=== PATIENT | male | born 1980 | race Caucasian/White ===

== ENCOUNTER 2022-10-31 13:20 | Outpatient (OUT) | payer OTHER, SELFPAY ==
--- NOTE | 2022-10-31 | CONS_ITS ---
CONSULTATION DATE: ??10/31/2022 HISTORY:? Patient returns today complaining of 7/10 pain in his abdominal area, just right of the umbilicus.? He describes this as a sharp, burning pain and it seems to increase with coughing, sneezing and performing lifting maneuvers.? He feels most comfortable in the semi-recumbent position.? He reports light touch to his abdomen is quite painful as well and describes a burning sensation.? At times, describes the pain with touching of his skin with fabric.? EXAM:? His examination is notable for patient having no clinical radiculopathy or myelopathy involving either of his lower extremities.? He did have dysesthesia and hyperesthesia overlying the distribution of the right T10 intercostal nerve and myofascial dysfunction involving the right rectus muscle, approximately 2-3 cm just cephalad and to the right of the umbilicus. IMPRESSION:? 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 RECOMMENDATIONS:? I have recommended proceeding with diagnostic right T10 intercostal nerve injection under fluoroscopic guidance.? We will obtain a urine toxicology screen on today?s visit.? As part of providing excellent, safe, comprehensive care, the following was completed at our patient's visit: 1. A medication reconciliation and review to ensure accurate knowledge of current/active medications, including asking our patients to inform us about any [id number] medications or herbal remedies/nutritional supplements/alternative remedies. 2. A review to specifically ensure our patients have had annual screening for: elevated body mass index (BMI, see intake chart for exact total), tobacco use, screening for depression, and screening for unhealthy alcohol use.? When screening is concerning, patients are provided with education and the specific recommendation to discuss the concerning health issue and treatment options with their primary care provider. ROSHAN
== END 2022-10-31 13:21 | disposition home or self-care (01) ==
LOC: PM 13:21
PROVIDERS: Visit Provider Anesthesiology Pain Medicine
DX: G89.29 Other chronic pain (principal); M79.2 Neuralgia and neuritis, unspecified
CPT/HCPCS: G0463

== ENCOUNTER 2022-12-14 12:41 | Outpatient (REF) | payer OTHER, SELFPAY ==
[2022-12-14 13:50] LABS: Amphetamine Screen Urine NEGATIVE (NEGATIVE); Barbiturates Screen Urine NEGATIVE (NEGATIVE); Benzodiazepines Screen Urine NEGATIVE (NEGATIVE); Buprenorphine Screen Urine NEGATIVE (NEGATIVE); Cannabinoid Screen Urine NEGATIVE (NEGATIVE); Cocaine Screen Urine NEGATIVE (NEGATIVE); Methadone Screen Urine NEGATIVE (NEGATIVE); Methamphetamines Screen Urine NEGATIVE (NEGATIVE); Opiate Screen Urine NEGATIVE (NEGATIVE); Oxycodone Screen Urine NEGATIVE (NEGATIVE); Phencyclidine Screen Urine NEGATIVE (NEGATIVE); Tricyclic Antidepressant Urine NEGATIVE (NEGATIVE)
== END 2022-12-14 12:42 | disposition home or self-care (01) ==
LOC: LAB 12:41
PROVIDERS: Visit Provider Nurse Practitioner Primary Care
DX: G62.9 Polyneuropathy, unspecified (principal); Z79.899 Other long term (current) drug therapy
CPT/HCPCS: 80307

== ENCOUNTER 2023-01-04 08:37 | Outpatient (OUT) | payer OTHER, SELFPAY ==
[2023-01-04 09:45] LABS: Basophils Absolute Auto 0.1 10^3/uL (0.0-0.1); Eosinophils Absolute Auto 0.2 10^3/uL (0.0-0.7); Eosinophils Percent Auto 2.7 % (0.9-7.0); Hematocrit 46.9 % (42.0-54.0); Hemoglobin 13.7 g/dL (14.0-18.0); Immature Granulocytes Abs Auto 0.03 10^3/uL (0.00-0.03); Immature Granulocytes Pct Auto 0.4 % (0.0-0.5); Lymphocytes Absolute Auto 1.9 10^3/uL (1.2-3.8); Mean Corpuscular HGB Conc 29.2 g/dL (29.9-35.2); Mean Corpuscular Volume 75.2 fL (80.0-94.0); Mean Platelet Volume 10.7 fL (9.5-13.5); Monocytes Absolute Auto 0.7 10^3/uL (0.3-0.8); Monocytes Percent Auto 10.3 % (1.7-12.0); Neutrophils Absolute Auto 3.9 10^3/uL (1.4-6.5); Neutrophils Percent Auto 57.6 % (43.0-75.0); Platelet Count 395 10^3/uL (150-450); Red Blood Count 6.24 10^6/uL (4.70-6.10); White Blood Count 6.8 10^3/uL (4.0-11.0)
[2023-01-04 10:16] LABS: Estimated Average Glucose 103 mg/dL; Glycohemoglobin A1C 5.2 % (4.5-6.2)
[2023-01-04 11:28] LABS: Alanine Aminotransferase 23 U/L (16-63); Albumin Globulin Ratio 1.3; Albumin Level 4.4 g/dL (3.4-5.0); Alkaline Phosphatase 161 U/L (46-116); Anion Gap 9.9; Aspartate Amino Transferase 18 U/L (15-37); BUN Creatinine Ratio 14.6; Bilirubin Total 0.5 mg/dL (0.2-1.0); Carbon Dioxide 30.1 mmol/L (21.0-32.0); Chloride 103 mmol/L (98-107); Cholesterol 187 mg/dL (<=200); Estimated GFR (African America >60 (>=60); Estimated GFR (Non-African Ame >60 (>=60); Globulin 3.5 g/dL; Glucose 80 mg/dL (74-106); HDL Cholesterol 47 mg/dL (40-60); LDL Cholesterol Calculated 123.2 mg/dL; Sodium 139 mmol/L (136-145); Thyroid Stimulating Hormone 1.341 uIU/mL (0.358-3.740); Total Protein 7.9 g/dL (6.4-8.2); Triglycerides 84 mg/dL (<=150); VLDL CHOLESTEROL 16.8 mg/dL
[2023-01-05 06:08] LABS: HIV Ab/p24 Ag Screen Non Reactive (Non Reactive)
[2023-01-05 07:08] LABS: HCV Ab Non Reactive (Non Reactive)
[2023-01-05 13:26] LABS: Gamma Glutamyl Transpeptidase 24 U/L (15-85)
== END 2023-01-04 08:38 | disposition home or self-care (01) ==
LOC: LAB 08:38
PROVIDERS: PCP Nurse Practitioner Primary Care; Visit Provider Nurse Practitioner Primary Care
DX: Z00.00 Encounter for general adult medical examination without abnormal findings (principal); Z11.59 Encounter for screening for other viral diseases; D50.9 Iron deficiency anemia, unspecified; Z13.21 Encounter for screening for nutritional disorder; Z13.6 Encounter for screening for cardiovascular disorders; Z13.29 Encounter for screening for other suspected endocrine disorder; Z11.4 Encounter for screening for human immunodeficiency virus [HIV]; R74.8 Abnormal levels of other serum enzymes
CPT/HCPCS: 36415; 80053; 80061; 82607; 82728; 82746; 82977; 83036; 83540; 83550; 84443; 85025; 86803; 87389

== ENCOUNTER 2023-02-12 07:29 | Outpatient (RCR) | payer OTHER, SELFPAY ==
[2023-01-29 08:41] VITALS: BP 149/98; PULSE 102; RESP 16; TEMP 37.1; O2SAT 96
--- NOTE | 2023-01-29 08:57 | PC.NURSE ---
0749: Pt to [facility] amb. for iron infusion. Seated in recliner. VSS. Denies c/o. #22 gauge IV initiated to right hand on first attempt without difficulty. Flushes easily without redness or edema. Pt. tolerated without c/o.
--- NOTE | 2023-01-29 09:01 | PC.NURSE ---
0817: IV Feraheme initiated at this time. Denies needs. Snack and fluid offered, pt. declines. 0835: IV Feraheme completed without s&s of adverse reaction. IV d/c'd, pressure to site. Pt tolerated without c/o. 0836: D/c'd to home.
[2023-01-30] MEDS: CYANOCOBALAMIN 1,000 MCG/ML VIAL 1000 MCG IM (09:18)
[2023-01-30 09:20] VITALS: BP 150/97; PULSE 89; RESP 16; TEMP 36.4; O2SAT 96
--- NOTE | 2023-01-30 09:24 | PC.NURSE ---
0910 Arrival amb to chair 1 alert oriented no complaints offered. VS obtained. Vit B12 injected rt deltoid. 919 Released ambulatory.
[2023-02-05 08:10] VITALS: BP 144/105; PULSE 96; RESP 18; TEMP 36.4; O2SAT 93
--- NOTE | 2023-02-05 08:14 | PC.NURSE ---
0740: Pt. to [facility] amb. Seated in recliner. Relays falling down the stairs at home prior to arrival. Relays landing on his back and c/o discomfort to lumbar region. Encouraged pt. to go to ER if pain worsens. Pt. expresses understanding. IV initiated in right hand on first attempt without difficulty. Pt. tolerated with minimal c/o. Warm blanket folded and placed behind back for comfort. Drinking water. Declines food. 0804: IV Feraheme initiated at this time. Pt. denies needs.
--- NOTE | 2023-02-05 08:29 | PC.NURSE ---
0828: SIGIFREDO Davis completed. Pt. without s&s of adverse reaction. IV d/c'd, pressure to site. Pt. d/c'd amb. to home.
[2023-02-06] MEDS: CYANOCOBALAMIN 1,000 MCG/ML VIAL 1000 MCG IM (08:02)
[2023-02-06 08:07] VITALS: BP 137/100; PULSE 98; RESP 18; TEMP 36.4; O2SAT 96
--- NOTE | 2023-02-06 08:09 | PC.NURSE ---
0755: Pt. to [facility] amb. per. self. Seated in recliner. Vital obtained. Pt. c/o low back pain from fall yesterday. Denies c/o n/v or dyspnea. Medicated with Vit. B12 IM to right deltoid. No bleeding to site. Bandaid placed prophylactically. Pt. tolerated with no c/o. 0805: Pt. d/c'd amb. to home.
[2023-02-12 07:55] VITALS: BP 159/98; PULSE 83; RESP 18; TEMP 36.5; O2SAT 93
[2023-02-12] MEDS: CYANOCOBALAMIN 1,000 MCG/ML VIAL 1000 MCG IM (08:27)
--- NOTE | 2023-02-12 08:47 | PC.NURSE ---
0755: Pt. to [facility] amb. Seated in recliner. VSS. Denies c/o dyspnea, n/v. Relays pain to lower back from recent fall. 0827: Medicated with Vitamin B12 IM to right deltoid. No bleeding to site. Pt. tolerated without c/o. 0828: Pt. d/c'd amb. to home per self.
== END 2023-02-13 23:59 | disposition home or self-care (01) ==
LOC: INF 07:29
PROVIDERS: PCP Nurse Practitioner Primary Care; Visit Provider Internal Medicine Hematology & Oncology
DX: D64.9 Anemia, unspecified (principal); D50.9 Iron deficiency anemia, unspecified; K90.9 Intestinal malabsorption, unspecified; D51.9 Vitamin B12 deficiency anemia, unspecified; Z98.84 Bariatric surgery status; Z90.49 Acquired absence of other specified parts of digestive tract
CPT/HCPCS: 96365; 96372; G0463; J1439; J3420

== ENCOUNTER 2023-03-05 07:32 | Outpatient (RCR) | payer OTHER, SELFPAY ==
[2023-02-19] MEDS: CYANOCOBALAMIN 1,000 MCG/ML VIAL 1000 MCG IM (07:57)
[2023-02-19 08:12] VITALS: BP 148/94; PULSE 105; RESP 16; TEMP 37.3; O2SAT 94
--- NOTE | 2023-02-19 08:14 | PC.NURSE ---
0753: Pt. to [facility] amb. Seated in recliner. VSS. Denies c/o. Medicated with Vitamin B12 IM to right deltoid. No bleeding to site. Pt tolerated without c/o. 0758: Pt d/c'd amb. to home.
[2023-03-05] MEDS: CYANOCOBALAMIN 1,000 MCG/ML VIAL 1000 MCG IM (08:22)
[2023-03-05 08:30] VITALS: BP 131/88; PULSE 77; RESP 18; TEMP 36.5; O2SAT 98
--- NOTE | 2023-03-05 08:31 | PC.NURSE ---
0810: Pt. to [facility] amb. for bi-weekly injection. Seated in recliner. VSS. Denies c/o or changes in health history. 0822: Pt. medicated with Vitamin B-12 IM to right deltoid. No bleeding to site. Bandaid applied prophylactically. Pt. kenia. without c/o. 0830: Pt. d/c'd amb. to home.
== END 2023-03-15 23:59 | disposition home or self-care (01) ==
LOC: INF 07:32
PROVIDERS: PCP Nurse Practitioner Primary Care; Visit Provider Internal Medicine Hematology & Oncology
DX: D50.9 Iron deficiency anemia, unspecified (principal); K90.9 Intestinal malabsorption, unspecified; D51.9 Vitamin B12 deficiency anemia, unspecified; D64.9 Anemia, unspecified
CPT/HCPCS: 96372; J3420

== ENCOUNTER 2023-04-03 07:31 | Outpatient (RCR) | payer OTHER, SELFPAY ==
[2023-03-19] MEDS: CYANOCOBALAMIN 1,000 MCG/ML VIAL 1000 MCG IM (08:15)
[2023-03-19 08:43] VITALS: BP 125/89; PULSE 76; RESP 16; TEMP 36.4; O2SAT 93
--- NOTE | 2023-03-19 08:45 | PC.NURSE ---
0812: Pt. to [facility] amb. Seated in recliner. VSS. Medicated with Vitamin B-12 IM to right deltoid. No bleeding to site. Pt. tolerated without c/o. 0819: Pt. d/c'd amb. to home.
[2023-04-03] MEDS: CYANOCOBALAMIN 1,000 MCG/ML VIAL 1000 MCG IM (10:23)
[2023-04-03 10:46] LABS: Basophils Absolute Auto 0.1 10^3/uL (0.0-0.1); Basophils Percent Auto 1.1 % (0.2-2.0); Eosinophils Absolute Auto 0.2 10^3/uL (0.0-0.7); Hematocrit 56.4 % (42.0-54.0); Hemoglobin 17.5 g/dL (14.0-18.0); Immature Granulocytes Abs Auto 0.01 10^3/uL (0.00-0.03); Immature Granulocytes Pct Auto 0.1 % (0.0-0.5); Lymphocytes Absolute Auto 1.5 10^3/uL (1.2-3.8); Mean Corpuscular Hemoglobin 25.7 pg (25.9-34.0); Mean Corpuscular Volume 82.9 fL (80.0-94.0); Mean Platelet Volume 10.5 fL (9.5-13.5); Monocytes Absolute Auto 0.8 10^3/uL (0.3-0.8); Monocytes Percent Auto 10.8 % (1.7-12.0); Neutrophils Absolute Auto 4.4 10^3/uL (1.4-6.5); Platelet Count 314 10^3/uL (150-450); Red Cell Distribution Width 20.8 % (11.0-15.0)
[2023-04-03 11:08] LABS: Alanine Aminotransferase 18 U/L (16-63); Albumin Globulin Ratio 1.1; Albumin Level 4.4 g/dL (3.4-5.0); Alkaline Phosphatase 213 U/L (46-116); Aspartate Amino Transferase 19 U/L (15-37); BUN Creatinine Ratio 12.7; Bilirubin Total 0.4 mg/dL (0.2-1.0); Carbon Dioxide 28.1 mmol/L (21.0-32.0); Chloride 102 mmol/L (98-107); Estimated GFR (African America >60 (>=60); Estimated GFR (Non-African Ame >60 (>=60); Globulin 4.1 g/dL; Glucose 79 mg/dL (74-106); Potassium 4.1 mmol/L (3.5-5.1); Sodium 138 mmol/L (136-145); Thyroid Stimulating Hormone 1.517 uIU/mL (0.358-3.740); Total Protein 8.5 g/dL (6.4-8.2)
[2023-04-03 12:18] LABS: Percent Iron Saturation 15.9 %
[2023-04-03 13:19] LABS: Vitamin B12 >6000.0 pg/mL (193.0-986.0)
[2023-04-04 04:07] LABS: Testosterone 628 ng/dL (264-916)
== END 2023-04-03 13:00 | disposition home or self-care (01) ==
LOC: INF 07:31
PROVIDERS: PCP Nurse Practitioner Primary Care; Visit Provider Internal Medicine Hematology & Oncology
DX: D50.9 Iron deficiency anemia, unspecified (principal); K90.9 Intestinal malabsorption, unspecified; D51.9 Vitamin B12 deficiency anemia, unspecified; D64.9 Anemia, unspecified; Z98.84 Bariatric surgery status; Z90.49 Acquired absence of other specified parts of digestive tract
CPT/HCPCS: 36415; 80053; 82306; 82607; 82728; 82746; 83540; 83550; 84403; 84443; 85025; 96372; G0463; J3420

== ENCOUNTER 2023-04-11 15:39 | Outpatient (RCR) | payer OTHER, SELFPAY | END 2023-04-15 09:00 | disposition home or self-care (01) | LOC: PT 15:39 | PROVIDERS: PCP Nurse Practitioner Primary Care; Visit Provider Nurse Practitioner Primary Care | DX: Z02.71 Encounter for disability determination (principal) | CPT/HCPCS: 97750 ==

== ENCOUNTER 2023-05-01 07:29 | Outpatient (RCR) | payer OTHER, SELFPAY | END 2023-05-01 09:00 | disposition home or self-care (01) | LOC: INF 07:29 | PROVIDERS: PCP Nurse Practitioner Primary Care; Visit Provider Internal Medicine Hematology & Oncology | DX: D50.9 Iron deficiency anemia, unspecified (principal); D64.9 Anemia, unspecified; K90.9 Intestinal malabsorption, unspecified; D51.9 Vitamin B12 deficiency anemia, unspecified; C44.529 Squamous cell carcinoma of skin of other part of trunk; R10.84 Generalized abdominal pain; Z98.84 Bariatric surgery status; Z90.49 Acquired absence of other specified parts of digestive tract | CPT/HCPCS: G0463 ==

== ENCOUNTER 2023-05-15 08:21 | Outpatient (OUT) | payer OTHER, SELFPAY ==
--- NOTE | 2023-05-15 08:24 | CT_ITS ---
[address] [address] Patient Name: SABINA TIPTON MRN: [id number] date: 1980 Sex: M Assigned Patient Location: CT Current Patient Location: CT Accession/Order Number: [id number] Exam Date: 05/15/2023 09:40 Report Date: 05/15/2023 14:26 At the request of: JOSELO PHIPPS Procedure: CT abdomen pelvis w con EXAMINATION: CT abdomen pelvis w con HISTORY: Abdominal Mass, Caudate Lobe Of The Liver COMPARISON: 07/29/2022 TECHNIQUE: CT images were created with IV contrast. Axial, Coronal, and Sagittal images. Dose reduction techniques were achieved by using automated exposure control and/or adjustment of mA and/or kV according to patient size and/or use of iterative reconstruction technique. FINDINGS: LUNG BASES: Minimal left basilar opacity, atelectasis is favored LIVER: Again demonstrated is a contour deformity consistent with prior left and caudate lobe surgery. No new hepatic mass is observed BILIARY: Prior cholecystectomy PANCREAS: No lesion, fluid collection, ductal dilatation, or atrophy. SPLEEN: No enlargement or focal lesion. ADRENALS: No mass or enlargement. KIDNEYS: No mass, obstruction, or calcification. BOWEL/MESENTERY: Suture lines from prior gastric surgery. Moderate stool in the right colon. Fluid distention of right mid abdominal small bowel loops measuring up to 10.1 cm, grossly stable AORTA/VASCULAR: No aortic aneurysm. Mild atherosclerosis RETROPERITONEUM: No mass or adenopathy. LYMPH NODES: No adenopathy. URINARY BLADDER: No visible focal wall thickening, lesion, or calculus. PELVIC ORGANS: Heterogeneous prostate with central calcifications but no enlargement ABDOMINAL WALL: No mass or hernia. BONES: No bony lesion or fracture. OTHER: Negative. CT/CT abdomen pelvis w con IMPRESSION: No new evidence of metastatic disease to the abdomen and pelvis Electronically authenticated by: LEYLA VILLALTA Date: 05/15/2023 14:26
--- OUTSIDE RECORDS SUMMARY | 2023-05-15 08:27 | XMS_ITS | CCD ---
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 Name Role Phone Unavailable Primary Care Provider Unavailabl e Sarahy Camarog Salvatore Primary Care Provider [phone] Salvatore Camargo Primary Care Provider Sarahy Camargo MD, [facility] Primary Care Provider ISMAEL JUAN Referring Unavailable KHORSAND RAMAN, SALVATORE Primary Care Unavailabl e GUEVARA, JUAN Referring Unavailable KHORSAND RAMAN, SALVATORE Primary Care Unavailabl e GUEVARA, JUAN Referring Unavailable KHORSAND RAMAN, SALVATORE Primary Care Unavailabl e KHORSAND RAMAN, SALVATORE Primary Care Unavailabl e GUEVARA, JUAN Referring Unavailable KHORSAND RAMAN, SALVATORE Primary Care Unavailabl e GUEVARA, JUAN Referring Unavailable GUEVARA, JUAN Referring Unavailable KHORSAND RAMAN, SALVATORE Primary Care Unavailabl e FAUSTO, LALO Admitting Unavailable FAUSTO, LALO Attending Unavailable KHORSAND RAMAN, SALVATORE Primary Care Unavailabl e FAUSTO, LALO Admitting Unavailable FAUSTO, LALO Attending Unavailable KHORSAND RAMAN, SALVATORE Primary Care Unavailabl e FAUSTO, LALO Admitting Unavailable FAUSTO, LALO Attending Unavailable KHORSAND RAMAN, SALVATORE Primary Care Unavailabl e FAUSTO, LALO Admitting Unavailable FAUSTO, LALO Attending Unavailable KHORSAND RAMAN, SALVATORE Primary Care Unavailabl e FAUSTO, LALO Admitting Unavailable FAUSTO, LALO Attending Unavailable KHORSAND RAMAN, SALVATORE Primary Care Unavailabl e FAUSTO, LALO Admitting Unavailable FAUSTO, LALO Attending Unavailable [facility], [facility] Primary Care Unavailabl e FAUSTO, LALO Admitting Unavailable FAUSTO, LALO Attending Unavailable [facility] RAMAN, [facility] Primary Care Unavailabl e FAUSTO, LALO Admitting Unavailable FAUSTO, LALO Attending Unavailable [facility] RAMAN, [facility] Primary Care Unavailabl e FAUSTO, LALO Admitting Unavailable FAUSTO, LALO Attending Unavailable [facility] RAMAN, [facility] Primary Care Unavailabl e FAUSTO, LALO Admitting Unavailable FAUSTO, LALO Attending Unavailable [facility] RAMAN, [facility] Primary Care Unavailabl e CHEHADE, SUE E Referring Unavailable [facility] RAMAN, [facility] Primary Care Unavailabl e FAUSTO, LALO Consulting Unavailable MASHALEH, MOHAMMAD I Admitting Unavailable MASHALEH, MOHAMMAD I Attending Unavailable Unavailable Primary Care Provider Unavailabl bry Camargo MD, [facility] Primary Care Provider Raman CANTRELL, [facility] Primary Care Provider Raman CANTRELL, [facility] Primary Care Provider MISC, DR DE DIOS Consulting Unavailable REQUEST, DR LUCIE LISTED Primary Care Unavaila ble MISC, DR DE DIOS Attending Unavailable MISC, DR DE DIOS Admitting Unavailable MORILLO ., DR KHOI Bartholomew Consulting Unavailable [facility] Care Unava ilable MORILLO ., DR KHOI Bartholomew Attending Unavailable MORILLO ., DR KHOI Bartholomew Admitting Unavailable MISC, DR DE IDOS Consulting Unavailable MISC, DR DE DIOS Primary Care Unavailable MORILLO ., DR KHOI Bartholomew Attending Unavailable MORILLO ., DR KHOI Bartholomew Admitting Unavailable MORILLO ., DR KHOI Bartholomew Consulting Unavailable LAKSHMIPATHY ., NARENDRANATH Consulting Neeru vailable [facility] Unava ilable LAKSHMIPATHY ., NARENDRANATH Attending Neeru vailable LAKSHMIPATHY ., NARENDRANATH Admitting Neeru vailable LAKSHMIPATHY ., NARENDRANATH Consulting Neeru vailable [facility] Unava ilable LAKSHMIPATHY ., NARENDRANATH Attending Neeru vailable LAKSHMIPATHY ., NARENDRANATH Admitting Neeru vailable [facility] Unava ilable MISC, DR DE DIOS Consulting Unavailable MORILLO ., DR KHOI Bartholomew Attending Unavailable MORILLO ., DR KHOI Bartholomew Admitting Unavailable MORILLO ., DR KHOI Bartholomew Consulting Unavailable MISC, DR DE DIOS Consulting Unavailable MISC, DR DE DIOS Primary Care Unavailable MORILLO ., DR KHOI Bartholomew Attending Unavailable MORILLO ., DR KHOI Bartholomew Admitting Unavailable MORILLO ., DR KHOI Bartholomew Consulting Unavailable LAKSHMIPATHY ., TIEN Consulting Neeru vailable RON JOSUE Consulting Unavailable MISC, DR DE DIOS Primary Care Unavailable RON JOSUE Attending Unavailable RON JOSUE Admitting Unavailable KLIPPDAMIEN, LEYLA Consulting Unavailable MISC, DR DE DIOS Consulting Unavailable REQUEST, NONE LISTED Primary Care Unavaila ble MISC, DR DE DIOS Attending Unavailable MISC, DR DE DIOS Admitting Unavailable MISC, DR DE DIOS Consulting Unavailable REQUEST, NONE LISTED Primary Care Unavaila ble MISC, DR DE DIOS Attending Unavailable MISC, DR DE DIOS Admitting Unavailable MISC, DR DE DIOS Consulting Unavailable REQUEST, DR NONE LISTED Primary Care Unavaila ble MISC, DR DE DIOS Attending Unavailable MISC, DR DE DIOS Admitting Unavailable MISC, DR DE DIOS Consulting Unavailable REQUEST, DR NONE LISTED Primary Care Unavaila ble MISC, DR DE DIOS Attending Unavailable MISC, DR DE DIOS Admitting Unavailable MISC, DR DE DIOS Consulting Unavailable REQUEST, DR NONE LISTED Primary Care Unavaila ble MISC, DR DE DIOS Attending Unavailable MISC, DR DE DIOS Admitting Unavailable MISC, DR DE DIOS Consulting Unavailable REQUEST, DR NONE LISTED Primary Care Unavaila ble MISC, DOCTOR Attending Unavailable MISC, DR DE DIOS Admitting Unavailable HOY ., DR STEINER Consulting Unavailable JBMOUNA VILLARREALSER Attending Unavailable JASON, DR DELLA Holland Admitting Unavailabl e [facility] Primary Care Unava ilable BRUNO ., DR KRISTINA Londono Consulting Unavailable DARYL, DONALDO Consulting Unavailable ROMINA ., BAO Consulting Unavailable JBARA, YASER Consulting Unavailable Salvatore Camargo MD Primary Care Provider [phone] Bishop MTAOS, Arlene Unavailable Unavailable RAMAN, SALVATORE K Primary Care Unavailable ERMELINDA, YINA Referring Unavailable RAMAN, SALVATORE K Primary Care Unavailable ERMELINDA, YINA Referring Unavailable ERMELINDA, YINA Referring Unavailable RAMAN, SALVATORE K Primary Care Unavailable RAMAN, SALVATORE K Primary Care Unavailable SUGEY FUENTES MD Referring Unavailable CHAPO ALBRIGHT Attending Unavailable RAMAN, SALVATORE K Primary Care Unavailable ALYSA ASENCIO Admitting Unavailable ALYSA ASENCIO Attending Unavailable RAMAN, SALVATORE K Primary Care Unavailable ERMELINDA, YINA Attending Unavailable SABINA BEAN Referring Unavailable RAMAN, SALVATORE K Primary Care Unavailable ERMELINDA, YINA Referring Unavailable ERMELINDA, YINA Referring Unavailable RAMAN, SALVATORE K Primary Care Unavailable RAMAN, SALVATORE K Primary Care Unavailable ERMELINDA, YINA Referring Unavailable Allergies Allergy Classification Reported Allergen(s) Allergy Type Date of Onset Reaction(s) Facility Angiotensin 2 Receptor Blockers (ARB) (7 sources) valsartan Drug Allergy 04-24-19 18 [facility] Prochlorperazine (7 sources) Prochlorperazine Drug Allergy 04-24-19 18 [facility] (20 sources) Prochlorperazine; Translations: [PROCHLORPERAZINE] Drug Allergy 02-19-20 14 Mental Status Change [place], [place] (20 sources) valsartan; Translations: [VALSARTAN] Drug Allergy 02-19-20 14 Intolerance [place], [place] (1 source) Lisdexamfetamine Drug Allergy 03-30-20 22 [facility] (1 source) Prochlorperazine Drug Allergy 02-19-20 14 [facility] (1 source) valsartan Drug Allergy 02-19-20 14 [facility] Medications Current Medications Medication Drug Class(es) Dates Sig (Normalized) Sig (Original) Acetaminophen (5 sources) Start: 06-30-2021 acetaminophen (TYLENOL) tablet 650 mg Start: 05-23-2020 acetaminophen (TYLENOL) tablet 650 mg Start: 04-09-2020 take 1 dose by mouth three times daily 1,000 mg, Oral, EVERY 8 HOURS SCHEDULED (3 times per day), First dose (after last modification) on Sun04/09/20 at 2330 Maximum dose of acetaminophen is 4000 mg from all sources in 24 hours. Start: 04-07-2020 acetaminophen (TYLENOL) tablet 1,000 mg Start: 03-29-2020 End: 04-07-2020 650 mg, Oral, EVERY 6 HOURS PRN, Pain Mild (1-3), Fever, For temp greater than 100.4 F (38 C), Starting 03/29/20 at 2214 Maximum dose of acetaminophen is 4000 mg from all sources in 24 hours. alginic acid 200 mg / calcium carbonate 80 mg / magnesium trisilicate 20 mg / sodium bicarbonate 70 mg oral tablet (2 sources) Start: 04-12-2020 End: 05-12-2020 take 2 tablets by mouth three times daily as needed for gastroesophageal reflux disease calcium carbonate (TUMS) 500 MG chewable tablet Take 2 tablets by mouth 3 times daily as needed for Heartburn 0 04/12/2020 05/12/2020 Active Start: 04-10-2020 calcium carbon ate (TUMS) chewable tablet 1,000 mg ascorbic acid 60 mg / beta carotene 5000 unt / copper sulfate 40 mg / dl-alpha tocopheryl acetate 30 unt / sodium selenite 0.04 mg / zinc oxide 40 mg oral tablet (10 sources) Vitamin C Start: 05-24-2020 therapeutic mu ltivitamin-minerals 1 tablet Start: 04-09-2020 take 1 tablet by preet th once daily Multiple Vitamins-Minerals (THERAPEUTIC MULTIVITAMIN-MINERALS) tablet Take 1 tablet by mouth daily 0 04/09/2020 Active Start: 03-31-2020 therapeutic mu ltivitamin-minerals 1 tablet calcium chloride 0.0014 meq/ ml / potassium chloride 0.004 meq/ml / sodium chloride 0.103 meq/ml / sodium lactate 0.028 meq/ml injectable solution (4 sources) Start: 05-23-2020 Intravenous, a t 20 mL/hr, CONTINUOUS, Starting 05/23/20 at 2045 Start: 04-03-2020 End: 04-04-2020 lactated ringers bolus cyclobenzaprine hydrochloride 5 mg oral tablet (3 sources) Muscle Relaxant Start: 04-11-2020 End: 04-22-2020 take 1 tablet by mouth three times daily as needed for muscle spasms cyclobenzaprine (FLEXERIL) 5 MG tablet Take 1 tablet by mouth 3 times daily as needed for Muscle spasms 30 tablet 0 04/12/2020 04/22/2020 Active Start: 03-30-2020 End: 04-03-2020 take 10 mg by mouth twice daily 10 mg, Oral, 2 TIMES D AILY, First dose on Sun03/30/20 at 2230 docusate sodium 100 mg oral capsule (3 sources) Start: 03-30-2020 End: 04-29-2020 take 100 mg by mouth twice daily 100 mg, Oral, 2 TIMES DAILY, First dose on 04/10/20 at 0115 Do not crush or break. enteric contrast (will be provided with radiology test) (1 source) Start: 10-25-2022 End: 10-26-2022 enteric contrast (will be provided with radiology test) Indications: Skin cancer For CT CHESTABD/PEL W IVCON Routine order Administer, As Directed One Time Only, via Oral, Rectal, both Oral and Rectal, Enteric Tube, Stoma or Indwelling Catheter, Enteric Contrast as designated per enteric contrast guidelines 1 Each 0 10/25/2022 10/26/2022 Active 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: For CT CHESTABD/PEL W IVCON Routine order Administer, As Directed One Time Only, via Oral, Rectal, both Oral and Rectal, Enteric Tube, Stoma or Indwelling Catheter, Enteric Contrast as designated per enteric contrast guidelines fat emulsion 20 % infusion 100 mL (1 source) Start: 05-27-2020 End: 05-28-2020 fat emulsion 20 % infusion 100 mL furosemide 20 mg oral tablet (7 sources) Loop Diuretic Start: 04-08-2020 End: 05-26-2020 take 20 mg by mouth once daily 20 mg, Oral, DAILY, First dose on 04/10/20 at 0900 Start: 04-02-2020 furosemide (LA SIX) injection 20 mg gabapentin 300 mg oral capsule (10 sources) Anti-epileptic Agent Start: 07-19-2020 take 1 capsule by mouth three times daily gabapentin (NEURONTIN) 300 MG capsule TAKE 1 CAPSULE BY MOUTH THREE TIMES DAILY 0 07/19/2020 Active Start: 04-11-2020 End: 05-12-2020 take 300 mg by mouth every eight hours 300 mg, Oral, EVERY 8 HOURS, First dose on 05/23/20 at 2045 glucagon (rdna) 1 mg injection (2 sources) Antihypoglycemic Agent Start: 05-26-2020 glucago n injection 1 mg Start: 04-10-2020 glucagon injec tion 1 mg glucose 0.417 mg/mg oral gel (8 sources) Start: 05-26-2020 glucose (GLUTO SE) 40 % oral gel 15 g Start: 05-26-2020 dextrose 50 % IV solution Start: 05-26-2020 dextrose 5 % s olution Start: 04-10-2020 glucose (GLUTO SE) 40 % oral gel 15 g Start: 04-10-2020 dextrose 5 % s olution Start: 04-10-2020 dextrose 50 % IV solution Start: 04-03-2020 End: 04-03-2020 dextrose 5 % solution 1 ml HYDROmorphone hydrochloride 1 mg/ml cartridge (5 sources) Opioid Agonist Start: 04-07-2020 End: 04-08-2020 HYDROmorphone (DILAUDID) injection 0.5 mg Start: 04-03-2020 End: 04-07-2020 HYDROmorphone (DILAUDID) inj ection 1 mg Start: 03-30-2020 End: 04-02-2020 HYDROmorphone (DILAUDID) inj ection 0.5 mg iv contrast (will be provided with radiology test) (1 source) Start: 10-25-2022 End: 10-26-2022 iv contrast (will be provided with radiology test) Indications: Skin cancer CT Chest ABD/PEL-Inject, intravenously, once for 1 dose.No IV access, insert saline lock prior to the beginning of sedation, infusion, injection of imaging exam. Discontinue saline lock post exam. If Pt. has a central line or IVAD, may access for administration according to line specific nursing protocol. Once exam is complete flush line and de-access according to line specific nursing protocol in the CT contrast administration guidelines link. 1 Each 0 10/25/2022 10/26/2022 Active 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: CT Chest ABD/PEL-Inj ect, intravenously, once for 1 dose.No IV access, insert saline lock prior to the beginning of sedation, infusion, injection of imaging exam. Discontinue saline lock post exam. If Pt. has a central line or IVAD, may access for administration according to line specific nursing protocol. Once exam is complete flush line and de-access according to line specific nursing protocol in the CT contrast administration guidelines link. 4 ml labetalol hydrochloride 5 mg/ml cartridge (4 sources) beta-Adrenergic Loyda Start: 04-09-2020 10 mg, Intravenous, EVERY 6 HOURS PRN, High Blood Pressure, Give for SBP >170. Hold for SBP <120, Starting 04/09/20 at 2307 Start: 04-03-2020 10 mg, Intrave nous, EVERY 6 HOURS PRN, High Blood Pressure, Give for SBP >170. Hold for SBP <120, Starting 04/03/20 at 1512 Start: 03-30-2020 End: 03-30-2020 labetalol (NORMODYNE;TRANDAT E) 5 MG/ML injection Start: 03-30-2020 End: 03-30-2020 labetalol (NORMODYNE;TRANDAT E) injection 10 mg 100 ml magnesium sulfate 10 mg/ml injection (4 sources) Start: 06-30-2021 take 1000 mg intravenously every hour as needed 1,000 mg, IntraVENous, at 100 mL/hr, Adm inister over 1 Hours, PRN, Other, Per IV Magnesium Replacement Protocol, Starting on Zenaida 06/30/21 at 0159 Mg Lab Replacement Action 1.4- 1.6 1 gram IVPB x 2 doses &nb sp; (2 gram Total) 1.0-1.3 1 gram IVPB x 4 doses &nb sp; (4 gram Total) <1.0 CALL PHYSICIAN and &n bsp; 1 gram IVPB x 4 doses (4 gram Total) Infuse at 1 gram/hr Repeat Mag level next AM Protocol not for use in Patients with CrCl<30ml/min Start: 05-23-2020 take 1000 mg intravenous route every hour as needed 1,000 mg, Intravenous, at 100 mL/hr, Adm inister over 1 Hours, PRN, Other, Per IV Magnesium Replacement Protocol, Starting 05/23/20 at 2022 Mg Lab Replacement Action 1.4-1.6 1 gram IVPB x 2 doses &nb sp; (2 gram Total) 1.0-1.3 1 gram IVPB x 4 doses &nb sp; (4 gram Total) <1.0 CALL PHYSICIAN and &n bsp; 1 gram IVPB x 4 doses (4 gram Total) Infuse at 1 gram/hr Repeat Mag level next AM Protocol not for use in Patients with CrCl<30ml/min Start: 04-09-2020 take 1 mg intravenous route every hour as needed 1 g, Intravenous, at 100 mL/hr, Administ er over 1 Hours, PRN, Other, Per IV Magnesium Replacement Protocol, Starting Sun04/09/20 at 2307 Mg Lab Replacement Action 1.4-1.6 1 gram IVPB x 2 doses &nb sp; (2 gram Total) 1.0-1.3 1 gram IVPB x 4 doses &nb sp; (4 gram Total) <1.0 CALL PHYSICIAN and &n bsp; 1 gram IVPB x 4 doses (4 gram Total) Infuse at 1 gram/hr Repeat Mag level next AM Protocol not for use in Patients with CrCl<30ml/min Start: 03-29-2020 take 1 mg intravenous route every hour as needed 1 g, Intravenous, at 100 mL/hr, Administ er over 1 Hours, PRN, Other, Per IV Magnesium Replacement Protocol, Starting 03/29/20 at 2214 Mg Lab Replacement Action 1.4-1.6 1 gram IVPB x 2 doses &nb sp; (2 gram Total) 1.0-1.3 1 gram IVPB x 4 doses &nb sp; (4 gram Total) <1.0 CALL PHYSICIAN and &n bsp; 1 gram IVPB x 4 doses (4 gram Total) Infuse at 1 gram/hr Repeat Mag level next AM Protocol not for use in Patients with CrCl<30ml/min metoclopramide 5 mg oral tablet (6 sources) Dopamine-2 Receptor Antagonist Start: 04-12-2020 take 1 tablet by mouth four times daily before mealtime metoclopramide (REGLAN) 5 MG tablet Take 1 tablet by mouth 4 times daily (before meals and nightly) 120 tablet 3 04/12/2020 Active Start: 04-12-2020 End: 06-24-2020 take 1 tablet by mouth four times daily before mealtime metoclopramide (REGLAN) 5 MG tablet Take 1 tablet by mouth 4 times daily (before meals and nightly) 120 tablet 3 04/12/2020 06/24/2020 Discontinued (Therapy completed) Start: 04-09-2020 End: 04-12-2020 5 mg, Intravenous, EVERY 6 H OURS, First dose (after last modification) on Sun04/09/20 at 2330 Start: 04-01-2020 metoclopramide (REGLAN) injection 5 mg 5 ml metoprolol tartrate 1 mg/ml injection (9 sources) beta-Adrenergic Loyda Start: 05-26-2020 metopr olol (LOPRESSOR) injection 5 mg Start: 05-25-2020 End: 05-24-2020 metoprolol (LOPRESSOR) injec tion 5 mg Start: 04-09-2020 5 mg, Intraven ous, EVERY 8 HOURS, First dose (after last modification) on Sun04/09/20 at 2330 Hold for SBP <100 and HR <60 Start: 04-06-2020 metoprolol (LO PRESSOR) injection 5 mg Start: 04-03-2020 End: 04-06-2020 2.5 mg, Intravenous, EVERY 8 HOURS, First dose on 04/03/20 at 1530 Hold for SBP <100 and HR <60 Start: 04-02-2020 End: 04-03-2020 metoprolol tartrate (LOPRESS OR) tablet 12.5 mg Start: 04-02-2020 End: 04-02-2020 metoprolol (LOPRESSOR) injec tion 5 mg Start: 04-01-2020 End: 04-01-2020 metoprolol (LOPRESSOR) injec tion 5 mg Start: 03-31-2020 End: 03-31-2020 metoprolol (LOPRESSOR) injec tion 5 mg Multiple Vitamins-Minerals (THERAPEUTIC MULTIVITAMIN-MINERALS) tablet (10 sources) Start: 04-09-2020 take 1 tablet by mouth once daily Multiple Vitamins-Minerals (THERAPEUTIC MULTIVITAMIN-MINERALS) tablet Take 1 tablet by mouth daily 0 04/09/2020 Suspended Start: 04-09-2020 take 1 tablet by preet th once daily Multiple Vitamins-Minerals (THERAPEUTIC MULTIVITAMIN-MINERALS) tablet Take 1 tablet by mouth daily 0 04/09/2020 Active 24 hr nicotine 0.875 mg/hr transdermal system (3 sources) Cholinergic Nicotinic Agonist Start: 05-23-2020 apply 1 dose transdermal route once daily as needed 1 patch, Transdermal, Administer over 24 Hours, DAILY PRN, if patient is a smoker and requests nicotine replacemnt therapy, Starting 05/23/20 at 2022 Apply new patch to nonhairy, clean, dry skin on the upper body or upper outer arm. Rotate patch sites. Notify pharmacy if patient or provider prefers patch to be removed at bedtime and replaced in the morning. Hazardous Medication -- Refer to facility policy for handling and disposal. Start: 04-09-2020 apply 1 dose transde rmal route once daily as needed 1 patch, Transdermal, Administer over 24 Hours, DAILY PRN, if patient is a smoker and requests nicotine replacemnt therapy, Starting 04/09/20 at 2307 Apply new patch to nonhairy, clean, dry skin on the upper body or upper outer arm. Rotate patch sites. Notify pharmacy if patient or provider prefers patch to be removed at bedtime and replaced in the morning. Hazardous Medication -- Refer to facility policy for handling and disposal. Start: 03-29-2020 apply 1 dose transde rmal route once daily as needed 1 patch, Transdermal, Administer over 24 Hours, DAILY PRN, if patient is a smoker and requests nicotine replacemnt therapy, Starting 03/29/20 at 2214 Apply new patch to nonhairy, clean, dry skin on the upper body or upper outer arm. Rotate patch sites. Notify pharmacy if patient or provider prefers patch to be removed at bedtime and replaced in the morning. Hazardous Medication -- Refer to facility policy for handling and disposal. omeprazole 20 mg delayed release oral capsule (18 sources) Proton Pump Inhibitor Start: 07-02-2021 omeprazo le (PRILOSEC) delayed release capsule 40 mg Start: 07-01-2021 omeprazole (HI ILOSEC) 40 mg capsule 2 ml ondansetron 2 mg/ml injection (7 sources) Serotonin-3 Receptor Antagonist Start: 04-09-2020 take 4 mg by mouth every six hours as needed for nausea 4 mg, Intravenous, EVERY 6 HOURS PRN, Nausea, Vomiting, Starting Sun04/09/20 at 2307 Administer if oral route cannot be used. Start: 03-30-2020 End: 07-22-2020 take 1 tablet by mouth every eight hours as needed for nausea ondansetron (ZOFRAN) 4 MG tablet Take 1 tablet by mouth every 8 hours as needed for Nausea or Vomiting 30 tablet 0 03/30/2020 07/22/2020 Discontinued (LIST CLEANUP) ondansetron (ZOFRAN-ODT) disintegrating tablet 4 mg (1 source) Start: 06-30-2021 ondansetron (ZOFRAN-ODT) disintegrating tablet 4 mg oxyCODONE hydrochloride 1 mg/ml oral solution (8 sources) Opioid Agonist Start: 10-24-2021 End: 10-31-2021 take 5-10 mL by mouth every four hours as needed for pain oxyCODONE (ROXICODONE) 5 mg/5 mL oral solution Indications: Postoperative pain Take 5-10 mL by mouth every 4 hours as needed for pain for up to 7 days. 70 mL 0 10/24/2021 10/31/2021 Active Start: 09-28-2021 take 1 tablet by preet th every twelve hours as needed oxyCODONE IR (ROXICODONE) 5 mg immediate release tablet Take 5 mg by mouth every 12 hours as needed. 0 09/28/2021 Suspended Start: 04-07-2020 oxyCODONE (PENG ICODONE) immediate release tablet 5 mg 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: Take 5 mg by mouth e very 12 hours as needed. Take 5-10 mL by mout h every 4 hours as needed for pain for up to 7 days. PN-Adult Premix 5/20 - Standard Electrolytes - Central Line (4 sources) Start: 07-03-2021 End: 07-04-2021 PN-Adult Premix 5/20 - Standard Electrolytes - Central Line Start: 07-02-2021 End: 07-03-2021 PN-Adult Premix 5/20 - Stand niharika Electrolytes - Central Line Start: 07-01-2021 End: 07-02-2021 PN-Adult Premix 5/20 - Stand niharika Electrolytes - Central Line Start: 04-05-2020 End: 04-06-2020 PN-Adult Premix 5/20 - Stand niharika Electrolytes - Central Line potassium bicarb-citric acid (EFFER-K) effervescent tablet 40 mEq (2 sources) Start: 04-09-2020 potassium bica rb-citric acid (EFFER-K) effervescent tablet 40 mEq Start: 03-29-2020 potassium bica rb-citric acid (EFFER-K) effervescent tablet 40 mEq Potassium Chloride (20 sources) Start: 06-30-2021 potassium chlo ride (KLOR-CON M) extended release tablet 40 mEq Start: 05-27-2021 potassium chlo ride ER (K-DUR, KLOR-CON) 20 mEq tablet Take 20 mEq by mouth twice daily. 0 05/27/2021 Active Start: 05-23-2020 potassium chlo ride (KLOR-CON M) extended release tablet 40 mEq 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: Take 20 mEq by mouth twice daily. Promethazine (1 source) Phenothiazine Start: 03-29-2020 promethazine (PHENERGAN) tablet 12.5 mg simethicone 66.7 mg/ml oral suspension (1 source) Start: 04-11-2020 simethicone (MYLICON) 40 MG/0.6ML drops 40 mg 5 ml sodium chloride 9 mg/ml injection (20 sources) Start: 06-30-2021 sodium chloride flush 0.9 % injection 5-40 mL Start: 06-30-2021 End: 06-30-2021 0.9 % sodium chloride infusi on Start: 06-30-2021 take 1 dose intraven ously twice daily 5-40 mL, IntraVENous, EVERY 12 HOURS SCHEDULED (2 times per day), First dose on Zenaida 06/30/21 at 0900 For Line Patency: Peripheral IV = 5 mL; Midline or Central Line = 10 mL/lumen. If following IV push medication, administer flush at same rate as the IV push. Flush volume is determined by type of infusion therapy being given. For non-viscous solutions use: Peripheral IV = 5 mL Midline or Central Line = 10 mL/lumen For viscous solutions (i.e. blood components, parenteral nutrition, contrast media, or after obtaining blood sample) use: Peripheral IV = 10 mL Midline or Central Line = 20 mL/lumen Start: 06-30-2021 take 25 mL intraveno usly every hour as needed 25 mL, IntraVENous, at 100 mL/hr, PRN, If patient receiving piggyback infusions without ordered maintenance IV fluids or with frequent/long duration piggyback infusions, Starting on Zenaida 06/30/21 at 0159 Administer at the same rate as the piggyback being infused. Start: 06-30-2021 take 10 mL intraveno usly once as needed 10 mL, IntraVENous, PRN, Line Care, After every IV line use, Starting on Zenaida 06/30/21 at 0159 Start: 06-22-2021 End: 06-22-2021 0.9 % sodium chloride infusi on Start: 02-17-2021 End: 02-17-2021 0.9 % sodium chloride infusi on Start: 11-25-2020 0.9 % sodium c hloride infusion Start: 10-28-2020 0.9 % sodium c hloride infusion Start: 09-30-2020 0.9 % sodium c hloride infusion Start: 09-02-2020 End: 09-02-2020 0.9 % sodium chloride infusi on Start: 07-22-2020 0.9 % sodium c hloride infusion Start: 07-08-2020 0.9 % sodium c hloride infusion Start: 06-24-2020 0.9 % sodium c hloride infusion Start: 05-24-2020 sodium chlorid e flush 0.9 % injection 10 mL Start: 04-09-2020 10 mL, Intrave nous, EVERY 12 HOURS SCHEDULED (2 times per day), First dose (after last modification) on Sun04/09/20 at 2330 Flush each lumen of PICC not connected to a continuous infusion. Start: 04-09-2020 10 mL, Intrave nous, PRN, Line Care, Starting Sun04/09/20 at 2307 Flush each lumen of PICC. Start: 04-09-2020 take 10 mL intraveno us route once as needed 10 mL, Intravenous, PRN, Line Care, After every IV line use, Starting Sun04/09/20 at 2307 Start: 04-05-2020 sodium chlorid e flush 0.9 % injection 10 mL Start: 04-03-2020 End: 04-04-2020 0.9 % sodium chloride bolus Start: 03-29-2020 10 mL, Intrave nous, EVERY 12 HOURS SCHEDULED (2 times per day), First dose on Sun03/29/20 at 2230 Start: 03-29-2020 take 10 mL intraveno us route once as needed 10 mL, Intravenous, PRN, Line Care, After every IV line use, Starting Sun03/29/20 at 2214 Start: 03-29-2020 End: 04-03-2020 Intravenous, at 125 mL/hr, CONTINUOUS, Starting Sun03/29/20 at 2230 350 ml soybean oil 200 mg/ml injection (3 sources) Start: 05-27-2020 End: 05-27-2020 fat emulsion 20 % infusion 1 00 mL Start: 04-05-2020 End: 04-06-2020 fat emulsion 20 % infusion 2 50 mL sucralfate 1000 mg oral tablet (20 sources) Aluminum Complex Start: 01-03-2022 End: 02-02-2022 take 1 tablet by mouth four times daily sucralfate (CARAFATE) 1 gram tablet Indications: Dysphagia, unspecified type Take 1 tablet by mouth four times daily. Please crush and mix with 10 ml of water to make slurry 120 tablet 0 01/03/2022 02/02/2022 Active Start: 01-03-2022 End: 01-03-2022 take 10 mL by mouth every six hours sucralfate (CARAFATE) 100 mg/mL susp Take 10 mL by mouth every 6 hours. 1200 mL 0 01/03/2022 01/03/2022 Discontinued Start: 05-27-2020 End: 07-01-2021 take 1 tablet by mouth four times daily at bedtime sucralfate (CARAFATE) 1 GM tablet Take 1 tablet by mouth 4 times daily (after meals and at bedtime) 120 tablet 3 05/27/2020 07/01/2021 Discontinued (Stop Taking at Discharge) 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: Take 1 tablet by preet th four times daily. Please crush and mix with 10 ml of water to make slurry Take 10 mL by mouth every 6 hours. thiamine 100 mg oral tablet (3 sources) Start: 05-24-2020 thiamine tablet 200 mg Start: 05-23-2020 End: 05-24-2020 inject 100 mg by intramuscular injection once daily 100 mg, Intramuscular, DAILY, First dose on 05/23/20 at 2044 Start: 03-30-2020 End: 04-03-2020 thiamine tablet 100 mg TPN WITH LIPIDS, OUTPATIENT ONLY, (1 source) Start: 05-26-2020 End: 06-09-2020 take 1320 mL intravenous route once daily TPN WITH LIPIDS, OUTPATIENT ONLY, 1,320 mLs by Intravenous (Continuous Infusion) route daily for 14 days 18.4 L 2 05/26/2020 06/09/2020 Active zolpidem tartrate 10 mg oral tablet (20 sources) gamma-Aminobut yric Acid-ergic Agonist Start: 07-12-2021 End: 10-26-2022 take 10 mg by mouth every twenty-four hours as needed zolpidem (AMBIEN) 10 mg Take 10 mg by mouth at bedtime as needed. 0 07/12/2021 10/26/2022 Discontinued Start: 07-12-2021 Zolpidem 10 mg subl Take by mouth daily at bedtime. 0 07/12/2021 Suspended Start: 07-03-2021 zolpidem (AMBI EN) tablet 5 mg 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: Take 10 mg by mouth at bedtime as needed. Take by mouth daily at bedtime. Completed/Discontinued Medications Medication Drug Class(es) Dates Sig (Normalized) Sig (Original) acetaminophen 325 mg / HYDROcodone bitartrate 5 mg oral tablet (18 sources) Opioid Agonist Start: 07-28-2021 HYDROcodone-acetam inophen (NORCO) 5-325 mg per tablet Start: 05-26-2020 End: 05-31-2020 take 1 tablet by mouth every six hours as needed for pain HYDROcodone-acetaminophen (NORCO) 5-325 MG per tablet Indications: SBO (small bowel obstruction) (HCC) Take 1 tablet by mouth every 6 hours as needed for Pain for up to 5 days. 15 tablet 0 05/26/2020 05/31/2020 Active Start: 05-26-2020 HYDROcodone-ac etaminophen (NORCO) 5-325 MG per tablet 1 tablet acetaminophen 325 mg / oxyCODONE hydrochloride 5 mg oral tablet (8 sources) Opioid Agonist Start: 09-27-2022 take 1 tablet by mouth twice daily as needed oxyCODONE-acetaminophen (PERCOCET) 5-325 mg tablet TAKE 1 TABLET BY MOUTH TWICE DAILY NEEDED MUST LAST 30 DAYS 0 09/27/2022 Active Start: 04-12-2020 End: 04-17-2020 take 1 tablet by mouth every four hours as needed for pain oxyCODONE-acetaminophen (PERCOCET) 5-325 MG per tablet Indications: SBO (small bowel obstruction) (HCC) , Intra-abdominal adhesions Take 1 tablet by mouth every 4 hours as needed for Pain for up to 5 days. 20 tablet 0 04/12/2020 04/17/2020 Active Start: 04-11-2020 oxyCODONE-acet aminophen (PERCOCET) 5-325 MG per tablet 1 tablet Start: 03-30-2020 End: 04-06-2020 take 1 tablet by mouth every six hours as needed for pain, then take 1 tablet by mouth as needed for pain oxyCODONE-acetaminophen (PERCOCET) 5-325 MG per tablet Indications: Post-op pain Take 1 tablet by mouth every 6 hours as needed for Pain for up to 7 days. Intended supply: 3 days. Take lowest dose possible to manage pain 28 tablet 0 03/30/2020 04/06/2020 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: TAKE 1 TABLET BY PREET TWICE DAILY NEEDED MUST LAST 30 DAYS amLODIPine 10 mg oral tablet (1 source) Dihydropyridine Calcium Channel Loyda Start: 04-02-20 End: 04-03-20 amLODIPine (NORVASC) tablet 10 mg amoxicillin 875 mg / clavulanate 125 mg oral tablet (20 sources) Penicillin-class Antibacterial Start: 05-27-19 take 1 tablet by mouth twice daily amoxicillin-clavul anic acid (AUGMENTIN) 875-125 mg per tablet Take 1 tablet by mouth twice daily. 0 05/27/2021 Active 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: Take 1 tablet by preet twice daily. baclofen 10 mg oral tablet (5 sources) gamma-Aminobutyric Acid-ergic Agonist Start: 08-02-19 take 1 tablet by mouth four times daily baclofen 10 mg tablet Take 10 mg by mouth four times daily. 0 08/01/2022 Active 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: Take 10 mg by mouth four times daily. bisacodyl 10 mg rectal suppository (1 source) Stimulant Laxative Start: 04-06-20 End: 04-08-20 bisacodyl (DULCOLAX) suppository 10 mg calcium carbonate 1250 mg / cholecalciferol 200 unt oral tablet (20 sources) Vitamin D Start: 09-28-19 take 1 tablet by mouth once calcium-carbonate- vitamin D3 500 mg-5 mcg (200 unit) per tablet Take 1 tablet by mouth. 0 09/27/2021 Active 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: Take 1 tablet by preet . calcium gluconate-NaCl 1-0.675 GM/50ML-% 1,000 mg IVPB (1 source) Start: 05-26-19 End: 05-26-19 calcium gluconate-NaCl 1-0.675 GM/50ML-% 1,000 mg IVPB cholecalciferol 1000 unt oral tablet (1 source) Vitamin D Start: 03-31-20 End: 04-03-20 Vitamin D (CHOLECALCIFEROL) tablet 1,000 Units cloNIDine hydrochloride 0.1 mg oral tablet (1 source) Central alpha-2 Adrenergic Agonist Start: 04-02-20 End: 04-02-20 cloNIDine (CATAPRES) tablet 0.1 mg Start: 04-02-2020 End: 04-02-2020 cloNIDine (CATAPRES) tablet 0.1 mg diatrizoate meglumine-sodium (GASTROGRAFIN) 66-10 % solution 360 mL (1 source) Start: 04-03-2020 End: 04-03-2020 diatrizoate meglumine-sodium (GASTROGRAFIN) 66-10 % solution 360 mL dicyclomine hydrochloride 20 mg oral tablet (20 sources) Anticholinergic Start: 07-28-2021 dicyclomine (B ENTYL) 20 mg tablet Take by mouth twice daily. 2 tabs 2 times a day 0 07/28/2021 Active Start: 07-28-2021 dicyclomine (B ENTYL) 20 mg tablet 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: Take by mouth twice daily. 2 tabs 2 times a day 1 ml diphenhydrAMINE hydrochloride 50 mg/ml cartridge (3 sources) Histamine-1 Receptor Antagonist Start: 07-01-2021 End: 07-01-2021 diphenhydrAMINE (BENADRYL) injection 25 mg Start: 05-23-2020 diphenhydrAMIN E (BENADRYL) injection 25 mg Start: 04-10-2020 End: 04-10-2020 diphenhydrAMINE (BENADRYL) i njection 25 mg DULoxetine 30 mg delayed release oral capsule (20 sources) Serotonin and Norepinephrine Reuptake Inhibitor Start: 10-14-2020 take 1 capsule by mouth twice daily DULoxetine (CYMBALTA) 30 mg capsule Take 30 mg by mouth twice daily. 0 10/14/2020 Active Start: 10-14-2020 End: 07-02-2021 DULoxetine (CYMBALTA) 30 mg capsule 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: twice daily. Take 30 mg by mouth twice daily. 0.4 ml enoxaparin sodium 100 mg/ml prefilled syringe (20 sources) Low Molecular Weight Heparin Start: 10-26-19 inject 40 mg by subcutaneous injection every twenty-four hours enoxaparin (LOVENOX) 40 mg/0.4 mL Inject 0.4 mL subcutaneously q 24 HR. 1.2 mL 1 10/25/2021 Active Start: 06-30-2021 inject 40 mg by subc utaneous injection once daily 40 mg, SubCUTAneous, DAILY, First dose on Zenaida 06/30/21 at 0900 Start: 05-23-2020 inject 40 mg by subc utaneous injection once daily 40 mg, Subcutaneous, DAILY, First dose on 05/23/20 at 2045 Start: 04-10-2020 inject 40 mg by subc utaneous injection once daily 40 mg, Subcutaneous, DAILY, First dose (after last modification) on 04/10/20 at 0900 Start: 03-31-2020 inject 40 mg by subc utaneous injection once daily 40 mg, Subcutaneous, DAILY, First dose (after last modification) on Sun03/31/20 at 0900 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: Inject 0.4 mL subcut aneously q 24 HR. famotidine 20 mg oral tablet (12 sources) Histamine-2 Receptor Antagonist Start: 2 take 1 tablet by mouth every twelve hours famotidine (PEPCID) 20 mg tablet Take 20 mg by mouth q 12 HR. 0 09/27/2021 Suspended Start: 04-09-2020 End: 04-12-2020 20 mg, Intravenous, 2 TIMES DAILY, First dose (after last modification) on Sun04/09/20 at 2330 Administer over 2 minutes. Start: 04-08-2020 End: 05-27-2020 famotidine (PEPCID) tablet 2 0 mg Start: 04-03-2020 20 mg, Intrave nous, 2 TIMES DAILY, First dose on 04/03/20 at 2100 Administer over 2 minutes. Start: 03-31-2020 End: 04-03-2020 famotidine (PEPCID) tablet 2 0 mg 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: Take 20 mg by mouth q 12 HR. 2 ml fentaNYL 0.05 mg/ml injection (2 sources) Opioid Agonist Start: 04-03-2020 End: 04-03-2020 fentaNYL (SUBLIMAZE) injection 50 mcg Start: 03-29-2020 End: 03-31-2020 fentaNYL (SUBLIMAZE) injecti on 50 mcg 250 ml glucose 50 mg/ml / sodium chloride 9 mg/ml injection (1 source) Start: 04-04-2020 End: 04-08-2020 dextrose 5 % and 0.9 % sodium chloride infusion ibuprofen 400 mg oral tablet (3 sources) Nonsteroidal Anti-inflammatory Drug Start: 04-11-2020 End: 05-27-2020 take 1 tablet by mouth every six hours ibuprofen (ADVIL;MOTRIN) 400 MG tablet Take 1 tablet by mouth every 6 hours 120 tablet 3 04/12/2020 05/27/2020 Discontinued (Stop Taking at Discharge) iohexol (OMNIPAQUE 240) injection 100 mL (1 source) Start: 06-30-2021 End: 06-30-2021 iohexol (OMNIPAQUE 240) injection 100 mL iohexol (OMNIPAQUE 240) injection 300 mL (1 source) Start: 04-10-2020 End: 04-10-2020 iohexol (OMNIPAQUE 240) injection 300 mL iron sucrose (VENOFER) 100 mg in sodium chloride 0.9 % 100 mL IVPB (1 source) Start: 03-31-2020 End: 04-02-2020 iron sucrose (VENOFER) 100 mg in sodium chloride 0.9 % 100 mL IVPB 1 ml ketorolac tromethamine 15 mg/ml cartridge (3 sources) Nonsteroidal Anti-inflammatory Drug, Cyclooxygenase Inhibitor Start: 04-10-2020 End: 04-11-2020 ketorolac (TORADOL) injection 15 mg Start: 04-10-2020 End: 04-10-2020 ketorolac (TORADOL) injectio n 30 mg Start: 04-03-2020 End: 04-08-2020 ketorolac (TORADOL) injectio n 15 mg lisinopril 20 mg oral tablet (20 sources) Angiotensin Converting Enzyme Inhibitor Start: 05-27-2021 take 1 tablet by mouth twice daily lisinopril (ZESTRIL, PRINIVIL) 20 mg tablet Take 20 mg by mouth twice daily. 0 05/27/2021 Active 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: Take 20 mg by mouth twice daily. LORazepam 0.5 mg oral tablet (1 source) Benzodiazepine Start: 03-29-2020 End: 03-30-2020 LORazepam (ATIVAN) tablet 0.5 mg magnesium citrate 58.2 mg/ml oral solution (1 source) Start: 04-02-2020 End: 04-02-2020 magnesium citrate solution 296 mL magnesium hydroxide 80 mg/ml oral suspension (1 source) Start: 04-01-2020 End: 04-03-2020 magnesium hydroxide (MILK OF MAGNESIA) 400 MG/5ML suspension 30 mL methocarbamol 500 mg oral tablet (18 sources) Muscle Relaxant Start: 10-24-2021 take 1 tablet by mouth three times daily methocarbamol (ROBAXIN) 500 mg tablet Take 1 tablet by mouth three times daily. 90 tablet 0 10/24/2021 Active 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: Take 1 tablet by preet th three times daily. 2 ml midazolam 1 mg/ml injection (1 source) Benzodiazepine Start: 03-30-2020 End: 03-30-2020 midazolam PF (VERSED) injection 2 mg Start: 03-30-2020 End: 03-30-2020 midazolam PF (VERSED) inject ion 2 mg 1 ml morphine sulfate 4 mg/ml cartridge (1 source) Opioid Agonist Start: 04-10-2020 End: 04-10-2020 morphine injection 4 mg Start: 04-10-2020 End: 04-10-2020 morphine injection 4 mg pantoprazole 40 mg delayed release oral tablet (20 sources) Proton Pump Inhibitor Start: 07-27-2021 take 1 tablet by mouth once daily pantoprazole DR (PROTONIX) 40 mg tablet Take 40 mg by mouth once daily. 0 07/27/2021 Active Start: 05-27-2020 pantoprazole ( PROTONIX) tablet 40 mg Start: 05-27-2020 End: 07-01-2021 take 1 tablet by mouth twice daily before mealtime pantoprazole (PROTONIX) 40 MG tablet Take 1 tablet by mouth 2 times daily (before meals) 30 tablet 3 05/27/2020 07/01/2021 Discontinued (Stop Taking at Discharge) Start: 2020 End: 05-27-2020 take 40 mg by mouth once daily 40 mg, Oral, DAILY, Fir st dose on 05/23/20 at 5 Do not crush or break. 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: once daily. In the A M Take 40 mg by mouth once daily. pantoprazole (PROTONIX) 40 mg in sodium chloride (PF) 10 mL injection (1 source) Start: 06-30-2021 End: 07-01-2021 40 mg, IntraVENous, DAILY, First dose on Zenaida 06/30/21 at 0900 Reconstitute with 10 mL 0.9 % sodium chloride and administer over at least 2 minutes. PN-Adult 2-in-1 Central Line (Standard) (6 sources) Start: 06-30-2021 End: 07-01-2021 PN-Adult 2-in-1 Central Line (Standard) Start: 05-27-2020 End: 05-28-2020 PN-Adult 2-in-1 Central Line (Standard) Start: 05-26-2020 End: 05-27-2020 PN-Adult 2-in-1 Central Line (Standard) Start: 05-25-2020 End: 05-26-2020 PN-Adult 2-in-1 Central Line (Standard) Start: 04-07-2020 End: 04-08-2020 PN-Adult 2-in-1 Central Line (Standard) Start: 04-06-2020 End: 04-07-2020 PN-Adult 2-in-1 Central Line (Standard) PN-Adult 2-in-1 Peripheral Line (Standard) (1 source) Start: 05-24-2020 End: 05-25-2020 PN-Adult 2-in-1 Peripheral Line (Standard) polyethylene glycol 3350 79158 mg powder for oral solution (20 sources) Osmotic Laxative Start: 05-27-2021 GAVILAX 17 gr am/dose powder MIX 17 grams of powder (1 cap at marking) with 4-8 ounces of beverage & drink BY MOUTH DAILY 0 05/27/2021 Active Start: 04-02-2020 End: 04-03-2020 polyethylene glycol (GLYCOLA X) packet 17 g 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: MIX 17 grams of powd er (1 cap at marking) with 4-8 ounces of beverage & drink BY MOUTH DAILY potassium phosphate 30 mmol in dextrose 5 % 250 mL IVPB (1 source) Start: 04-08-2020 End: 04-08-2020 potassium phosphate 30 mmol in dextrose 5 % 250 mL IVPB pregabalin 150 mg oral capsule (20 sources) Start: 06-30-2021 End: 07-02-2021 pregabalin (LYRICA) capsule 150 mg Start: 05-17-2020 take 1 capsule by mo uth three times daily pregabalin (LYRICA) 150 mg capsule Take 150 mg by mouth three times daily. 0 07/07/2021 Active take 1 capsule by mo uth twice daily pregabalin (LYRICA) 150 MG capsule Take 150 mg by mouth 2 times daily. 0 Active 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: Take 150 mg by mouth three times daily. tamsulosin hydrochloride 0.4 mg oral capsule (19 sources) alpha-Adrenergic Loyda Start: 10-24-2021 take 1 capsule by mouth once daily at bedtime tamsulosin (FLOMAX) 0.4 mg Take 1 capsule by mouth daily at bedtime. 30 capsule 0 10/24/2021 Active Start: 04-02-2020 End: 04-03-2020 tamsulosin (FLOMAX) capsule 0.4 mg 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: Take 1 capsule by mo uth daily at bedtime. therapeutic multivitamin-minerals (THERA-M PLUS) 9 mg iron-400 mcg tablet (20 sources) therapeutic multivitamin-minerals (THERA-M PLUS) 9 mg iron-400 mcg tablet Take 1 tablet by mouth every morning. 0 Suspended therapeutic mult ivitamin-minerals (THERA-M PLUS) 9 mg iron-400 mcg tablet Take 1 tablet by mouth every morning. 0 Active 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: Take 1 tablet by preet th every morning. traMADol hydrochloride 50 mg oral tablet (16 sources) Opioid Agonist Start: take 1 tablet by mouth every six hours as needed for pain traMADol (ULTRAM) 50 mg tablet TAKE 1 TABLET BY MOUTH EVERY 6 HOURS NEEDED FOR PAIN for up to 7 days 0 05/27/2021 Suspended 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: TAKE 1 TABLET BY PRETE TH EVERY 6 HOURS NEEDED FOR PAIN for up to 7 days Vancomycin (18 sources) Glycopeptide Antibacterial Start: take 2 g intravenously every twelve hours vancomycin (VANCOCIN) 2 g in D5W 500 mL Inject 500 mL intravenously q 12 HR. 500 mL 1 10/24/2021 Active 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: Inject 500 mL intrav enously q 12 HR. vancomycin/0.9 % sod chloride (VANCOMYCIN IN 0.9% SODIUM CL) 1.75 gram/500 mL soln (5 sources) vancomycin/0.9 % sod chloride (VANCOMYCIN IN 0.9% SODIUM CL) 1.75 gram/500 mL soln Inject intravenously twice daily. 0 Suspended vancomycin/0.9 % sod chloride (VANCOMYCIN IN 0.9% SODIUM CL) 1.75 gram/500 mL soln Inject intravenously twice daily. 0 Active 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: Inject intravenously twice daily. vitamin b12 1 mg/ml injectable solution (20 sources) Vitamin B12 Start: inject 1 mL by intramuscular injection every 30 days cyanocobalamin 1,000 mcg/mL INJECT 1 ml INTRAMUSCULARLY EVERY 30 days 0 05/27/2021 Active Start: 03-30-2020 End: 04-03-2020 vitamin B-12 (CYANOCOBALAMIN ) tablet 100 mcg 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: INJECT 1 ml INTRAMUS CULARLY EVERY 30 days vitamin b6 50 mg oral tablet (20 sources) Start: 07-12-2021 take 1 tablet by mouth once daily pyridoxine, vitamin B6, (VITAMIN B6) 50 mg tablet Take 1 tablet by mouth once daily. 0 07/12/2021 Active 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: Take 1 tablet by preet once daily. Problems Active Problems Problem Classification Problem Date Documented Da te Episodic/Chronic Cardiac dysrhythmias (1 source) Tachycardia, unspecified; Translations: [TACHYCARDIA UNSPECIFIED] Onset: 08-07-2022 Episodic Deficiency and other anemia (3 sources) Iron deficiency anemia; Translations: [Iron deficiency anemia] Onset: 03-30-2020 04-01-2020 Episodic Deficiency and other anemia (4 sources) Anemia; Translations: [Anemia, unspecified] Onset: 10-07-2021 Episodic Deficiency and other anemia (1 source) Anemia, unspecified; Translations: [ANEMIA UNSPECIFIED] Onset: 08-07-2022 Episodic Deficiency and other anemia (6 sources) Iron deficiency anemia secondary to inadequate dietary iron intake; Translations: [Other iron deficiency anemias] Onset: 11-15-2022 11-29-2022 Episodic Esophageal disorders (20 sources) Ulcer of esophagus; 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] Onset: 10-07-2021 05-27-2020 Chronic Essential hypertension (20 sources) Essential hypertension; Translations: [Essential (primary) hypertension] Onset: 04-02-2020 04-06-2020 Chronic Gastritis and duodenitis (2 sources) Gastritis; Translations: [Gastritis, unspecified, without bleeding] Onset: 06-30-2021 Episodic Gastroduodenal ulcer (except hemorrhage) (9 sources) Chronic gastrojejunal ulcer with obstruction; Translations: [Chronic gastrojejunal ulcer without hemorrhage or perforation] Chronic Mood disorders (2 sources) Depressive disorder; Translations: [Depression] Onset: 06-30-2021 Chronic Nutritional deficiencies (20 sources) Nutritional marasmus; Translations: [Unspecified severe protein-calorie malnutrition] Onset: 03-30-2020 05-24-2020 Chronic Nutritional deficiencies (4 sources) Deficiency of macronutrients; Translations: [Severe protein-calorie malnutrition (HCC)] Onset: 03-30-2020 04-01-2020 Episodic Other aftercare (1 source) Other skilled nursing (current) drug therapy; Translations: [OTH SHELTER CURRENT DRUG THERAPY] Onset: 08-07-2022 Episodic Other connective tissue disease (4 sources) Neuralgia and neuritis, unspecified; Translations: [NEURALGIA AND NEURITIS UNSPECIFIED] Onset: 07-06-2022 Episodic Other disorders of stomach and duodenum (3 sources) Gastric fistula; 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] Episodic Other endocrine disorders (16 sources) Hypoglycemia; Translations: [Hypoglycemia, unspecified] Onset: 05-26-2020 05-26-2020 Chronic Other gastrointestinal disorders (19 sources) Esophageal dysphagia; Translations: [Dysphagia, unspecified] Onset: 03-30-2020 04-01-2020 Episodic Other gastrointestinal disorders (17 sources) H/O: GIT by-pass; Translations: [Bariatric surgery status] Onset: 05-24-2020 05-24-2020 Episodic Other gastrointestinal disorders (2 sources) Disorder of abdomen; Translations: [Intra-abdominal adhesions] Onset: 04-12-2020 04-12-2020 Episodic Other gastrointestinal disorders (1 source) Dysphagia; Translations: [Dysphagia, unspecified] Episodic Other injuries and conditions due to external causes (2 sources) Foreign body in stomach; Translations: [Foreign body in stomach, initial encounter] Episodic Other liver diseases (16 sources) Steatosis of liver; Translations: [Fatty (change of) liver, not elsewhere classified] Onset: 05-25-2020 05-25-2020 Chronic Other nervous system disorders (2 sources) Neuropathy; Translations: [Polyneuropathy, unspecified] Onset: 06-30-2021 Chronic Other nervous system disorders (1 source) Other chronic pain; Translations: [OTHER CHRONIC PAIN] Onset: 08-07-2022 Chronic Other nervous system disorders (3 sources) Postoperative pain ; Translations: [Other acute postprocedural pain] Onset: 10-15-2021 10-21-2021 Episodic Other non-epithelial cancer of skin (6 sources) Squamous cell carcinoma of skin; Translations: [Squamous cell carcinoma of skin of other part of trunk] Onset: 08-07-2022 Episodic Other nutritional; endocrine; and metabolic disorders (16 sources) Hypocalcemia; Translations: [Hypocalcemia] Onset: 05-26-2020 05-26-2020 Chronic Other nutritional; endocrine; and metabolic disorders (2 sources) Body mass index 30+ - obesity; Translations: [Obesity, unspecified] Onset: 06-30-2021 Chronic Other nutritional; endocrine; and metabolic disorders (20 sources) Obese class I; Translations: [Obesity, unspecified] Onset: 10-07-2021 Chronic Other screening for suspected conditions (not mental disorders or infectious disease) (1 source) Patient encounter status; Translations: [Encounter for screening for other disorder] Episodic Peritonitis and intestinal abscess (2 sources) Infectious disease of abdomen; Translations: [Peritonitis, unspecified] Onset: 11-08-2022 10-26-2022 Episodic Phlebitis; thrombophlebitis and thromboembolism (1 source) H/O: Deep vein thrombosis; Translations: [Personal history of other venous thrombosis and embolism] Episodic Residual codes; unclassified (2 sources) Feeding problem; Translations: [Other specified health status] Episodic Residual codes; unclassified (1 source) Procedure and treatment not carried out because of patient's decision for other reasons; Translations: [PROC AND TX NOT CARRIED OUT PT OTH RSN] Onset: 08-07-2022 Episodic Residual codes; unclassified (1 source) Personal history of other specified conditions; Translations: [PERSONAL HISTORY OTH SPEC CONDITION] Onset: 08-07-2022 Episodic Residual codes; unclassified (1 source) Acquired absence of other specified parts of digestive tract; Translations: [ACQ ABSENCE OTH PART DIGESTV TRACT] Onset: 08-07-2022 Episodic Skin and subcutaneous tissue infections (4 sources) Cellulitis of abdominal wall; Translations: [CELLULITIS OF ABDOMINAL WALL] Onset: 07-30-2022 Episodic Unclassified (1 source) Patient encounter status; Translations: [Preoperative testing] Unclassified (1 source) NO SHOW Unclassified (1 source) CONTACT W/AND (SUSP) EXPOS COVID-19; Translations: [CONTACT W/AND (SUSP) EXPOS COVID-19] Onset: 04-03-2022 Past or Other Problems Problem Classification Problem Date Documented Da te Episodic/Chronic Abdominal pain (9 sources) Epigastric pain; Translations: [Epigastric pain] Onset: 01-18-2022 Episodic Complications of surgical procedures or medical care (11 sources) Complication of surgical procedure; Translations: [Other postprocedural complications and disorders of digestive system] Onset: 01-18-2022 Episodic Deficiency and other anemia (16 sources) Normocytic normochromic anemia; Translations: [Anemia, unspecified] Onset: 05-25-2020 05-25-2020 Episodic Fever of unknown origin (3 sources) Fever, unspecified; Translations: [FEVER UNSPECIFIED] Onset: 03-30-2022 Episodic Fluid and electrolyte disorders (20 sources) Hyponatremia; Translations: [Acute hypokalemia] Onset: 05-24-2020 05-25-2020 Episodic Influenza (1 source) Influenza due to other identified influenza virus with other respiratory manifestations; Translations: [FLU D/T OTH ID FLU VIR OTH RSP MANF] Onset: 04-03-2022 Episodic Intestinal obstruction without hernia (20 sources) Small bowel obstruction; Translations: [Intestinal obstruction] Onset: 03-29-2020 04-03-2020 Episodic Nausea and vomiting (1 source) Nausea with vomiting, unspecified; Translations: [Nausea and vomiting, unspecified vomiting type] Onset: 01-18-2022 Episodic Other gastrointestinal disorders (2 sources) Bariatric surgery status; Translations: [BARIATRIC SURGERY STATUS] Onset: 01-18-2022 Episodic Other liver diseases (16 sources) Enzyme level - finding; Translations: [Transaminasemia] Onset: 05-25-2020 05-25-2020 Episodic Other nutritional; endocrine; and metabolic disorders (16 sources) Body mass index less than 20; Translations: [Body mass index (BMI) 19.9 or less, adult] Onset: 05-26-2020 05-26-2020 Episodic Septicemia (except in labor) (4 sources) Sepsis, unspecified organism; Translations: [SEPSIS UNSPECIFIED ORGANISM] Onset: 11-07-2021 Episodic Results Test Name Value Interpretation Reference Range Facility [facility] 12-01-2022 REGGIE Telephone (HEMCA3) DANUTASABINA Ann ([id number]) 1980 Date Time Provider Department 12/01/22 YINA GERARDO During your visit today, we recorded the following information about you: Arlene Carrillo RN 12/01/2022 4:23 PM Signed Requested by Dr Gerardo to call patient to inform of recommendations from skin tumor board discussion. Called and spoke to patient informed recommendation was to continue to follow Dr Gerardo every 6 months with scans. No treatment or surgery needed at this time. Anticipate appointments in May. Patient expressed understanding and appreciation. Arlene Carrillo RN Allergies As of Date: 12/01/2022 Noted Allergy Reaction PROCHLORPERAZINE 02/18/2014 1 - Mental Status Change VALSARTAN 02/18/2014 5 - Intolerance Date Reviewed: 11/29/2022 Reviewed by: Radha Clifford RN - Fully Assessed Reason for Visit: Care Coordination [3491] Prescriptions as of 12/01/2022 - iv contrast (will be provided with radiology test) CT Chest ABD/PEL-Inject, intravenously, once for 1 dose.No IV access, insert saline lock prior to the beginning of sedation, infusion, injection of imaging exam. Discontinue saline lock post exam. If Pt. has a central line or IVAD, may access for administration according to line specific nursing protocol. Once exam is complete flush line and de-access according to line specific nursing protocol in the CT contrast administration guidelines link. - enteric contrast (will be provided with radiology test) For CT CHESTABD/PEL W IVCON Routine order Administer, As Directed One Time Only, via Oral, Rectal, both Oral and Rectal, Enteric Tube, Stoma or Indwelling Catheter, Enteric Contrast as designated per enteric contrast guidelines - oxyCODONE-acetaminop hen (PERCOCET) 5-325 mg tablet TAKE 1 TABLET BY MOUTH TWICE DAILY NEEDED MUST LAST 30 DAYS - baclofen 10 mg tablet Take 10 mg by mouth four times daily. - therapeutic multivitamin-mineral s (THERA-M PLUS) 9 mg iron-400 mcg tablet Take 1 tablet by mouth every morning. - DULoxetine (CYMBALTA) 30 mg capsule Take 30 mg by mouth twice daily. - pantoprazole DR (PROTONIX) 40 mg tablet Take 40 mg by mouth once daily. - pregabalin (LYRICA) 150 mg capsule Take 150 mg by mouth three times daily. 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] 10/13/2021 10/21/2021 Postoperative pain [G89.18] 10/15/2021 10/24/2021 Transaminitis [R74.01] 10/15/2021 10/21/2021 Respiratory insufficiency [R06.89] 10/15/2021 10/21/2021 DVT (deep venous thrombosis) (HCC) [I82.409] 10/15/2021 10/21/2021 Severe protein-calorie malnutrition (HCC) [E43] 10/18/2021 Gastrointestinal anastomotic stricture [K91.30] 01/18/2022 Iron deficiency anemia secondary to inadequate *11/15/2022 Encounter Status:Closed by ARLENE CARRILLO on 12/01/22 [facility] 11-30-2022 [facility] SABINA ESPINOZA ([id number]) 1980 M Date Time Provider Department 11/30/22 ANAY TEE During your visit today, we recorded the following information about you: Anay Tee MD 11/30/2022 5:44 PM Signed Non-Melanoma Skin Cancer Tumor Board Referring Provider: Dr. Gerardo Date Case presented: 11/30/2022 Lesion(s) Reviewed: 42 yo male with history of gastric bypass and abdominal wound with bx c/w scc in 2021. Discussion regarding further management. Recommendations/Foll ow up: Team recommendations for continued close monitoring, q6 mo with Dr. 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 - therapeutic multivitamin-mineral s (THERA-M PLUS) 9 mg iron-400 mcg tablet Take 1 tablet by mouth every morning. - DULoxetine (CYMBALTA) 30 mg capsule Take 30 mg by mouth twice daily. - pantoprazole DR (PROTONIX) 40 mg tablet Take 40 mg by mouth once daily. - pregabalin (LYRICA) 150 mg capsule Take 150 mg by mouth three times daily. 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] 10/13/2021 10/21/2021 Postoperative pain [G89.18] 10/15/2021 10/24/2021 Transaminitis [R74.01] 10/15/2021 10/21/2021 Respiratory insufficiency [R06.89] 10/15/2021 10/21/2021 DVT (deep venous thrombosis) ([facility]) [I82.409] 10/15/2021 10/21/2021 Severe protein-calorie malnutrition (HCC) [E43] 10/18/2021 Gastrointestinal anastomotic stricture [K91.30] 01/18/2022 Iron deficiency anemia secondary to inadequate *11/15/2022 Encounter Status:Closed by ANAY TEE on 11/30/22 [facility] 11-14-2022 [facility] Telephone (HEMCA3) SABINA ESPINOZA ([id number]) 1980 M Date Time Provider Department 11/14/22 YINA GERARDO HEMCA3 During your visit today, we recorded the following information about you: Arlene Carrillo RN 11/14/2022 2:37 PM Signed Imagining and labs reviewed by Dr Gerardo. Attempted to call with updates- no voicemail available. MIGUELITO Ulloa Andrea, RN 11/14/2022 3:17 PM Signed Patient saw missed call and called back. Informed of results and plan to discuss at skin tumor board. He stated he used to have iron infusions through PCP but there has been a change in providers and he would like to receive here if possible. Told him I would share with Dr Gerardo. All questions answered. MIGUELITO Ulloa Andrea, RN 11/17/2022 10:29 AM Signed Called and spoke to patient to ensure he was aware that iron infusion appointments are scheduled. Patient said he called scheduling yesterday and was told. Reminded 1st treatment scheduled for 11/22 visible on MyChart. Patient asked if Dr Gerardo would discuss how big the lesions are- informed she will discuss next visit, after tumor board meets. All questions answered. MIGUELITO Ulloa Mark, MD 11/30/2022 7:21 AM Signed Non-Melanoma Skin Cancer Tumor Board Referring Provider: Dr. 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 - therapeutic multivitamin-mineral s (THERA-M PLUS) 9 mg iron-400 mcg tablet Take 1 tablet by mouth every morning. - DULoxetine (CYMBALTA) 30 mg capsule Take 30 mg by mouth twice daily. - pantoprazole DR (PROTONIX) 40 mg tablet Take 40 mg by mouth once daily. - pregabalin (LYRICA) 150 mg capsule Take 150 mg by mouth three times daily. 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] 10/13/2021 10/21/2021 Postoperative pain [G89.18] 10/15/2021 10/24/2021 Transaminitis [R74.01] 10/15/2021 10/21/2021 Respiratory insufficiency [R06.89] 10/15/2021 10/21/2021 DVT (deep venous thrombosis) (HCC) [I82.409] 10/15/2021 10/21/2021 Severe protein-calorie malnutrition (HCC) [E43] 10/18/2021 Gastrointestinal anastomotic stricture [K91.30] 01/18/2022 Encounter Status:Closed by ANAY TEE on 11/30/22 Normal [facility] CBC W Auto Differential pane l (Bld)on 11-08-2022 Basophils (Bld) [#/Vol] 0.06 10*3/uL Normal <0.11 [facility] [place] 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: Order Comment: Speci men Type: BLOOD SPECIMENOrdering Facility: [facility] Address: [address] [place] [address] Performed By: #### 5 7021-8 ####[facility] LABCLIA [id number] [place] [address] [place] Basophils/100 WBC (Bld) 0.9 % Normal [facility] [place] 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: Order Comment: Speci men Type: BLOOD SPECIMENOrdering Facility: [facility] Address: [address] [place] [address] Performed By: #### 5 7021-8 ####[facility] LABCLIA [id number] [place] [address] [place] Differential cell count method Nom (Bld) Auto Normal [facility] [place] 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: Order Comment: Speci men Type: BLOOD SPECIMENOrdering Facility: [facility] Address: [address] [place] [address] Performed By: #### 5 7021-8 ####[facility] LABCLIA [id number] [place] [address] [place] Eosinophils (Bld) [#/Vol] 0.23 10*3/uL Normal <0.46 [facility] [place] 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: Order Comment: Speci men Type: BLOOD SPECIMENOrdering Facility: [facility] Address: [address] [place] [address] Performed By: #### 5 7021-8 ####[facility] LABCLIA [id number] [place] [address] [place] Eosinophils/100 WBC (Bld) 3.4 % Normal [facility] [place] 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: Order Comment: Speci men Type: BLOOD SPECIMENOrdering Facility: [facility] Address: [address] [address] Performed By: #### 5 7021-8 ####[facility] LABIA [id number] [place] [address] [place] Erythrocyte distribution width (RBC) [Ratio] 17.2 % High 11.5-15.0 [facility] [place] 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: Order Comment: Speci men Type: BLOOD SPECIMENOrdering Facility: [facility] Address: [address] Performed By: #### 5 7021-8 ####[facility] LABIA [id number] [place] [address] [place] Hematocrit (Bld) [Volume fraction] 44.1 % Normal 39.0-51.0 [facility] 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: Order Comment: Speci men Type: BLOOD SPECIMENOrdering Facility: [facility] Address: [address] Performed By: #### 5 7021-8 ####[facility] LABIA [id number] [place] [address] [place] Hemoglobin (Bld) [Mass/Vol] 12.6 g/dL Low 13.0-17.0 [facility] 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: Order Comment: Speci men Type: BLOOD SPECIMENOrdering Facility: [facility] Address: [address] Performed By: #### 5 7021-8 ####[facility] LABIA [id number] [place] [address] [place] Immature granulocytes (Bld) [#/Vol] 10*3/uL Normal <0.10 [facility] 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: Order Comment: Speci men Type: BLOOD SPECIMENOrdering Facility: [facility] Address: [address] Performed By: #### 5 7021-8 ####[facility] LABCLIA [id number] [place] [address] [place] Immature granulocytes/100 WBC (Bld) 0.1 % Normal [facility] [place] 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: Order Comment: Speci men Type: BLOOD SPECIMENOrdering Facility: [facility] Address: [address] [place] [address] Performed By: #### 5 7021-8 ####[facility] LABCLIA [id number] [place] [address] [place] Lymphocytes (Bld) [#/Vol] 1.73 10*3/uL Normal 1.00-4.00 [facility] [place] 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: Order Comment: Speci men Type: BLOOD SPECIMENOrdering Facility: [facility] Address: [address] [place] [address] Performed By: #### 5 7021-8 ####[facility] LABCLIA [id number] [address] [place] Lymphocytes/100 WBC (Bld) 25.4 % Normal [facility] [place] 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: Order Comment: Speci men Type: BLOOD SPECIMENOrdering Facility: [facility] Address: [address] [place] [address] Performed By: #### 5 7021-8 ####[facility] LABCLIA [id number] [place] [address] [place] MCH (RBC) [Entitic mass] 21.5 pg Low 26.0-34.0 [facility] 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: Order Comment: Speci men Type: BLOOD SPECIMENOrdering Facility: [facility] Address: [address] [place], [place] [address] Performed By: #### 5 7021-8 ####[facility] LABCLIA [id number] [place] [address] [place] MCHC (RBC) [Mass/Vol] 28.6 g/dL Low 30.5-36.0 [facility] 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: Order Comment: Speci men Type: BLOOD SPECIMENOrdering Facility: [facility] Address: [address] [place], [place] [address] Performed By: #### 5 7021-8 ####[facility] LABCLIA [id number] [place] [address] [place] MCV (RBC) [Entitic vol] 75.3 fL Low 80.0-100.0 [facility] [place] 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: Order Comment: Speci men Type: BLOOD SPECIMENOrdering Facility: [facility] Address: [address] [place], [place] [address] Performed By: #### 5 7021-8 ####[facility] LABIA [id number] [place] [address] [place] Monocytes (Bld) [#/Vol] 0.71 10*3/uL Normal <0.87 [facility] 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: Order Comment: Speci men Type: BLOOD SPECIMENOrdering Facility: [facility] Address: [address] [place], [place] [address] Performed By: #### 5 7021-8 ####[facility] LABIA [id number] [place] [address] [place] Monocytes/100 WBC (Bld) 10.4 % Normal [facility] 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: Order Comment: Speci men Type: BLOOD SPECIMENOrdering Facility: [facility] Address: [address] [place] [address] Performed By: #### 5 7021-8 ####[facility] LABIA [id number] [place] [address] [place] Neutrophils (Bld) [#/Vol] 4.08 10*3/uL Normal 1.45-7.50 [facility] 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: Order Comment: Speci men Type: BLOOD SPECIMENOrdering Facility: [facility] Address: [address] [place], [place] [address] Performed By: #### 5 7021-8 ####[facility] LABCLIA [id number] [place] [address] [place] Neutrophils/100 WBC (Bld) 59.8 % Normal [facility] 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: Order Comment: Speci men Type: BLOOD SPECIMENOrdering Facility: [facility] Address: [address] [place], [place] [address] Performed By: #### 5 7021-8 ####[facility] LABIA [id number] [place] [address] [place] Nucleated RBC (Bld) [#/Vol] 10*3/uL Normal <0.01 [facility] 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: Order Comment: Speci men Type: BLOOD SPECIMENOrdering Facility: [facility] Address: [address] Performed By: #### 5 7021-8 ####[facility] LABIA [id number] [place] [address] [place] Nucleated RBC/100 WBC (Bld) [Ratio] 0.0 /100 WBC Normal [facility] 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: Order Comment: Speci men Type: BLOOD SPECIMENOrdering Facility: [facility] Address: [address] [place] [address] Performed By: #### 5 7021-8 ####[facility] LABIA [id number] [place] [address] [place] Platelet mean volume (Bld) [Entitic vol] 10.5 fL Normal 9.0-12.7 [facility] 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: Order Comment: Speci men Type: BLOOD SPECIMENOrdering Facility: [facility] Address: [address] [place] [address] Performed By: #### 5 7021-8 ####[facility] LABIA [id number] [place] [address] [place] Platelets (Bld) [#/Vol] 394 10*3/uL Normal 150-400 [facility] 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: Order Comment: Speci men Type: BLOOD SPECIMENOrdering Facility: [facility] Address: [address] [place] [address] Performed By: #### 5 7021-8 ####[facility] LABCLIA [id number] [place] [address] [place] RBC (Bld) [#/Vol] 5.86 10*6/uL Normal 4.20-6.00 [facility] 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: Order Comment: Speci men Type: BLOOD SPECIMENOrdering Facility: [facility] Address: [address] [place] [address] Performed By: #### 5 7021-8 ####[facility] LABCLIA [id number] [place] [address] [place] WBC (Bld) [#/Vol] 6.82 10*3/uL Normal 3.70-11.00 [facility] 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: Order Comment: Speci men Type: BLOOD SPECIMENOrdering Facility: [facility] Address: [address] [place] [address] Performed By: #### 5 7021-8 ####[facility] LABCLIA [id number] [place] [address] [place] CT ABD/PEL W IVCONon 11-08-[address] ABD/PEL W IVCON * * *Final Report* * * DATE OF EXAM: Nov 08 2022 8:52AM [facility] 0530 - CT ABD/PEL W IVCON / PROCEDURE REASON: multiple diagnoses * * * * Physician Interpretation * * * * RESULT: EXAMINATION: CT ABDOMEN AND PELVIS WITH IV CONTRAST CLINICAL HISTORY: 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 TECHNIQUE: CT of the abdomen and pelvis was performed using standard technique, scanning from just above the dome of the diaphragm to the symphysis pubis. MQ: CTAP_3 Contrast: IV: 100 ml of Omnipaque 350 Oral: 500 ml of Omni 240 10-25ml diluted with water CT Radiation dose: Integrated Dose-length product (DLP) for this visit = 1334 mGy*cm. CT Dose Reduction Employed: Automated exposure control (AEC) COMPARISON: CT abdomen/pelvis 01/10/2022 10/18/2021, 10/15/2021 RESULT: Liver: No mass. Biliary: No bile duct dilation. Cholecystectomy. Spleen: No mass. No splenomegaly. Pancreas: No mass or duct dilation. Adrenals: No mass. Kidneys: No mass, calculus or hydronephrosis. GI tract: Lauren-en-Y gastric bypass. Borderline distended distal Lauren limb leading to a patulous anastomosis in the right anterior mid abdomen. Enteric contrast extends beyond the anastomosis without transition point. Findings appear overall similar as compared to several prior CTs. Lymph nodes: No abdominal or pelvic lymphadenopathy. Mesentery/Peritoneum : No ascites or mass. Previously visualized loculated fluid adjacent to the left hepatic lobe has resolved. Retroperitoneum: No mass. Vasculature: - Abdominal aorta and iliac arteries: Mild atherosclerotic calcifications without aneurysm. - Celiac and SMA: Patent without stenosis. - Portal venous system (SMV, splenic vein, portal vein and branches): Patent. - Hepatic veins: Incompletely opacified, likely due to early phase of enhancement. Pelvis: No mass, ascites or fluid collection. Bones/Soft Tissues: Stable skin thickening in the periumbilical region without discrete mass (5:79). No suspicious osseous lesion. Lower thorax: A chest CT performed will be reported separately. Tagman (topogram) images: No additional findings. IMPRESSION: Stable periumbilical skin thickening without discrete mass. No metastatic disease in the abdomen and pelvis. Transcribe Date/Time: Nov 08 2022 9:43A Dictated by: LEYLA MCCLURE MD This examination was interpreted and the report reviewed and electronically signed by: LEYLA MCCLURE MD on Nov 08 2022 10:10AM EST Thank you for allowing us to participate in the care of your patient. Should there be any questions regarding this interpretation, please call [phone]. If you are unable to reach us at the number above, please feel free to contact [facility] at [phone]. [id number] CN Normal [facility] CT CHEST W IVCONon 3 CT CHEST W IVCON * * *Final Report* * * DATE OF EXAM: Nov 08 2022 8:52AM [facility] 0539 - CT CHEST W IVCON / PROCEDURE REASON: Skin cancer * * * * Physician Interpretation * * * * RESULT: EXAMINATION: CHEST CT WITH CONTRAST CLINICAL HISTORY: Skin cancer, Multiple abdominal surgeries complicated by wound dehiscence and chronic wound n on-healing with squamous cell carcinoma. Please assess for progression of disease. Technique: Spiral CT acquisition of the chest from the thoracic inlet to the upper abdomen following IV contrast. MQ: CTCW_6 Contrast: 100 mL Omnipaque [address] Radiation dose: Integrated Dose-length product (DLP) for this visit = 1334 mGy*cm CT Dose Reduction Employed: Automated exposure control (AEC) Comparison: Prior chest CT dated 10/15/2021 RESULT: Lines, tubes, and devices: None. Lung parenchyma and airways: No consolidation. 4 mm partially calcified right upper lobe nodule (66) unchanged. No new or suspicious pulmonary nodule. The central airways are patent. Scattered lower lung opacities likely atelectasis. Previously seen lower lobe consolidations have nearly resolved. Pleural space: No pleural effusion. No pleural thickening. Lower neck, lymph nodes, and mediastinum: The imaged thyroid gland is normal. No new or pathologically enlarged lymphadenopathy in the supraclavicular, axillary, mediastinal, or hilar regions. Heart, pericardium, and thoracic vessels: The thoracic aorta and main pulmonary artery are normal in caliber. The cardiac chambers are normal in size. No coronary artery atherosclerotic calcifications are noted, although the study is not optimized for coronary assessment. No pericardial effusion or thickening. Bones and soft tissues: Mild degenerative changes of the thoracic spine. No destructive bone lesion. Chest wall is unremarkable. Upper abdomen: Upper abdominal findings within dedicated report. Tagman (topogram) images: No additional findings. IMPRESSION: No acute pulmonary disease. Transcribe Date/Time: Nov 08 2022 11:47A Dictated by: JAKE BRAR MD This examination was interpreted and the report reviewed and electronically signed by: JAKE BRAR MD on Nov 08 2022 11:57AM EST Thank you for allowing us to participate in the care of your patient. Should there be any questions regarding this interpretation, please call [phone]. If you are unable to reach us at the number above, please feel free to contact [facility] eRadiology at [phone]. [id number] CN Normal [facility] Comprehensive metabolic 2000 panelon 11-08-2022 Albumin [Mass/Vol] 4.4 g/dL Normal 3.9-4.9 [facility] 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: Order Comment: Speci men Type: BLOOD SPECIMENOrdering Facility: [facility] Address: [address] [place] [address] Performed By: #### 2 284-8, 90895-6, 2276-4, 83047-7 ####[facility] LABIA [id number] [place] [address] [place] ALP [Catalytic activity/Vol] 140 U/L High 38-113 [facility] 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: Order Comment: Speci men Type: BLOOD SPECIMENOrdering Facility: [facility] Address: [address] [address] Performed By: #### 2 284-8, 05249-2, 2276-4, 34392-2 ####[facility] LABIA [id number] [address] [place] ALT [Catalytic activity/Vol] 11 U/L Normal 10-54 [facility] 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: Order Comment: Speci men Type: BLOOD SPECIMENOrdering Facility: [facility] Address: [address] [address] Performed By: #### 2 284-8, 73721-5, 2276-4, 25848-8 ####[facility] LABCLIA [id number] [address] [id number] [place] Anion gap [Moles/Vol] 10 mmol/L Normal 9-18 [facility] [place] 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: Order Comment: Speci men Type: BLOOD SPECIMENOrdering Facility: [facility] Address: [address] [place] [address] Performed By: #### 2 284-8, 17569-6, 2276-4, 28408-1 ####[facility] LABCLIA [id number] [place] [address] [place] AST [Catalytic activity/Vol] 17 U/L Normal 14-40 [facility] 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: Order Comment: Speci men Type: BLOOD SPECIMENOrdering Facility: [facility] Address: [address] [place] [address] Performed By: #### 2 284-8, 18775-1, 2276-4, 95409-8 ####[facility] LABCLIA [id number] [place] [address] [place] Bilirubin [Mass/Vol] 0.4 mg/dL Normal 0.2-1.3 [facility] 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: Order Comment: Speci men Type: BLOOD SPECIMENOrdering Facility: [facility] Address: [address] [place] [address] Performed By: #### 2 284-8, 57279-7, 2276-4, 24436-6 ####[facility] LABCLIA [id number] [place] [address] [place] Calcium [Mass/Vol] 9.5 mg/dL Normal 8.5-10.2 [facility] 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: Order Comment: Speci men Type: BLOOD SPECIMENOrdering Facility: [facility] Address: [address] [place] [address] Performed By: #### 2 284-8, 45670-1, 2276-4, 81720-3 ####[facility] LABCLIA [id number] [place] [address] [place] Chloride [Moles/Vol] 103 mmol/L Normal 97-105 [facility] 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: Order Comment: Speci men Type: BLOOD SPECIMENOrdering Facility: [facility] Address: [address] [address] Performed By: #### 2 284-8, 76194-5, 2276-4, 17665-2 ####[facility] LABIA [id number] [place] [id number] [place] CO2 [Moles/Vol] 25 mmol/L Normal 22-30 [facility] [place] 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: Order Comment: Speci men Type: BLOOD SPECIMENOrdering Facility: [facility] Address: [address] [address] Performed By: #### 2 284-8, 02083-6, 6-4, 48648-6 ####[facility] LABIA [id number] [place] [address] [place] Creatinine [Mass/Vol] 0.64 mg/dL Low 0.73-1.22 [facility] 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: Order Comment: Speci men Type: BLOOD SPECIMENOrdering Facility: [facility] Address: [address] [place] [address] Performed By: #### 2 284-8, 79956-5, 6-4, 95000-3 ####[facility] LABIA [id number] [place] [address] [place] ESTIMATED GLOMERULAR FILTRATION RATE 120 mL/min/1.73m??? Normal >=60 [facility] 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: Order Comment: Speci men Type: BLOOD SPECIMENOrdering Facility: [facility] Address: [address] [place] [address] Result Comment: Philly mated Glomerular Filtration Rate (eGFR) is calculated using the 2020 CKD-EPI creatinine equation. This equation utilizes serum creatinine, sex, and age as parameters. The creatinine assay has traceable calibration to isotope dilution-mass spectrometry. Refer to KDIGO guidelines for clinical interpretation. In patients with unstable renal function, e.g. those with acute kidney injury, the eGFR may not accurately reflect actual GFR. Performed By: #### 2 284-8, 62999-2, 2276-4, 39153-4 ####[facility] LABCLIA [id number] [place] [id number] [place] Glucose [Mass/Vol] 83 mg/dL Normal 74-99 [facility] 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: Order Comment: Speci men Type: BLOOD SPECIMENOrdering Facility: [facility] Address: [address] [place] [address] Result Comment: The [place] Diabetes Association (ADA) provides guidance for cutoff values for fasting glucose and random glucose. The ADA defines fasting as no caloric intake for at least 8 hours. Fasting plasma glucose results between 100 to 125 mg/dL indicate increased risk for diabetes (prediabetes). Fasting plasma glucose results greater than or equal to 126 mg/dL meet the criteria for diagnosis of diabetes. In the absence of unequivocal hyperglycemia, results should be confirmed by repeat testing. In a patient with classic symptoms of hyperglycemia or hyperglycemic crisis, random plasma glucose results greater than or equal to 200 mg/dL meet the criteria for diagnosis of diabetes. Reference: Standards of Medical Care in Diabetes 2016, [place] Diabetes Association. Diabetes Care. 2016.39(Suppl 1). Performed By: #### 2 284-8, 66797-7, 2276-4, 66123-2 ####[facility] LABCLIA [id number] [place] [address] [place] Potassium [Moles/Vol] 4.5 mmol/L Normal 3.7-5.1 [facility] 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: Order Comment: Speci men Type: BLOOD SPECIMENOrdering Facility: [facility] Address: [address] [id number] Performed By: #### 2 284-8, 83657-0, 2276-4, 94871-4 ####[facility] LABCLIA [id number] [place] [address] [place] Protein [Mass/Vol] 7.1 g/dL Normal 6.3-8.0 [facility] 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: Order Comment: Speci men Type: BLOOD SPECIMENOrdering Facility: [facility] Address: [address] Performed By: #### 2 284-8, 51383-5, 2276-4, 50814-8 ####[facility] LABCLIA [id number] [place] [address] [place] Sodium [Moles/Vol] 138 mmol/L Normal 136-144 [facility] 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: Order Comment: Speci men Type: BLOOD SPECIMENOrdering Facility: [facility] Address: [address] Performed By: #### 2 284-8, 59083-7, 2276-4, 45764-4 ####[facility] LABCLIA [id number] [place] [address] [place] Urea nitrogen [Mass/Vol] 9 mg/dL Normal 9-24 [facility] 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: Order Comment: Speci men Type: BLOOD SPECIMENOrdering Facility: [facility] Address: [address] [place] [address] Performed By: #### 2 284-8, 51126-8, 2276-4, 55753-8 ####[facility] LABCLIA [id number] [place] [address] [place] Ferritin SerPl-mCncon 2022 Ferritin [Mass/Vol] 6.3 ng/mL Low 30.3-565.7 [facility] 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: Order Comment: Speci men Type: BLOOD SPECIMENOrdering Facility: [facility] Address: [address] Performed By: #### 2 284-8, 15127-1, 2276-4, 54817-6 ####[facility] LABCLIA [id number] [place] [address] [place] Folate SerPl-mCncon 11-09-19 23 Folate [Mass/Vol] 15.9 ng/mL Normal >4.7 [facility] 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: Order Comment: Speci men Type: BLOOD SPECIMENOrdering Facility: [facility] Address: [address] [place] [address] Performed By: #### 2 284-8, 61852-5, 2276-4, 89974-7 ####[facility] LABCLIA [id number] [place] [address] [place] [facility] [place] Iron and Iron binding capaci ty panelon 11-08-2022 Iron [Mass/Vol] 20 ug/dL Low 41-186 [facility] 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: Order Comment: Speci men Type: BLOOD SPECIMENOrdering Facility: [facility] Address: [address] [place] [address] Performed By: #### 2 284-8, 14105-5, 2276-4, 23950-1 ####[facility] LABCLIA [id number] [address] OF [facility] Iron binding capacity [Mass/Vol] 482 ug/dL High 232-386 [facility] 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: Order Comment: Speci men Type: BLOOD SPECIMENOrdering Facility: [facility] Address: [address] [place] [address] Performed By: #### 2 284-8, 22018-4, 2276-4, 32387-7 ####[facility] LABCLIA [id number] [address] [place] [facility] Iron/TIBC [Molar ratio] 4.1 % Low 15.0-57.0 [facility] 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: Order Comment: Speci men Type: BLOOD SPECIMENOrdering Facility: [facility] Address: [address] [place] [address] Performed By: #### 2 284-8, 19891-3, 2276-4, 64548-2 ####[facility] LABCLIA [id number] [address] [place] CNOVSPon 10-25-2022 CNOVSP Visit (SP) Office (HEMCA3) SABINA ESPINOZA ([id number]) 1980 M Date Time Provider Department 10/25/22 12:00 PM YINA GERARDO [facility]EM[facility]3 During your visit today, we recorded the following information about you: Temperature Pulse Respiration Blood pressure 98.6 degrees 114/minute 18/minute 125/94 Weight 101.2 kg Yina Estrella Ma 10/25/2022 11:48 AM Signed Additional intake questions: Has the patient had fever, nausea, vomiting, diarrhea, constipation, fatigue for > 1 week? Yes, constipation (day of last BM yesterday ), diarrhea ( none times in last 24 hours), and fatigue Does the patient have a decreased appetite? Yes, decrease Does patient want to see a Strap Folding Machine Operator? No (yes to any of above refer patient to schedulers for dietitian appointment) ) Does patient have any new or increased numbness or tingling of extremities? Yes, feet history of neuropathy Is patient interested in fertility information? NA Does patient need any prescription refills? No Does patient have an advanced directive in place? No, Patient refused referral to Social Work or Resource Center Electronically Signed By: Yina Gerardo MD 10/26/2022 5:52 AM Signed [facility] Solid Tumor Oncology Initial Consultation Note Patient name: Sabina Espinoza Clinic number: [id number] Primary Care Physician: Salvatore Camargo MD Date of service: October 25, 2022 Reason for consultation: History of squamous cell carcinoma Referring Physician: Dr. Alysa Asencio (General Surgery) Final recommendations will be communicated back to the requesting physician by way of the shared medical record. History of Present Illness: Sabina Espinoza is a 42 year old male who is referred for evaluation of squamous cell carcinoma on abdomen. Oncologic history as follows: Biopsy of abdominal wall 10/13/2022 shows moderately differentiated SCC of abdominal wall. He has a complicated medical history which includes numerous abdominal surgeries including gastric bypass surgery complicated by esophageal narrowing requiring multiple dilations and stents. - 2009: Initial Gastric Bypass Surgery - 2020: Abdominal surgery to remove adhesions complicated by small bowel obstruction - 2020: He has hx of recurrent abscess formation on abdominal wall with infections which began in 2019 and has been intermittently present for past 3 years. Describes abscess as coming up from skin associated with redness, bleeding and drainage that occurs intermittently every few months over the years which he had seen previous surgeons and had hospital visits for. Been treated with abx or drainage and referrals to wound clinic, general surgery and dermatology. - 10/13/2021 Surgery: Gastric Bypass Revision by Dr. Asencio. During surgery, During surgery, suspicious mass on inner abdominal wall located pily-umbilically was found and sent for for biopsy. He reports he has lost 230 pounds since his initial gastric bypass surgery. - 10/13/2021 Biopsy of abdominal wall showed moderately differentiated SCC. Two other biopsies of the stomach and small intestine were also taken and were unremarkable. - 01/19/2022 Biopsy: During hospitalization for nausea and vomiting secondary to Gastric Bypass, pt had symptomatic pily-umbilical abscess/mass which was biopsied at that time. 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 - 07/27/2022 abscess/mass removal: Pt presented to [facility] for evaluation of symptomatic abscess/mass located pily-umbilical abdomen. Mass was excised by Dr. Her (TOM-HYBRID TESTER) and biopsy confirmed mass was benign. (No outside records of this). - 07/30/2022 Hospital Admission: He gradually developed pain, redness, and drainage of the area again and was admitted to [facility] 07/30/-08/01/2022 for abdominal wall cellulitis secondary to wound dehiscence infection. He was initially tx with empiric vancomycin and then doxycycline at discharge. Wound was 3.7 x 2.4 x 0.5 cm in size, and debrided with dressing placed. He performed dressing changes twice daily, and also had [facility] perform weekly dressing changes. - 08/06/2022 Hospital Visit: Pt presented again to the hospital c/o fevers, chills and pains secondary to wound. He was afebrile, the sutures were removed and he was d/c with second round of doxycycline. He did not follow up with dermatology on 08/10 or 08/17 in person. Last saw wound clinic on 08/09/2022 for wound debridement and reassessed on 08/18/2022. - He was referred by Dr. Asencio for possible oncological treatment of SCC from biopsy on 09/2021. -Pertinent PMHx: anemia, bowel obstruction, b/l LE neuropathy -Pertinent PSHx: Gastric Bypass 2009 complicated by tear, Gastric Bypass Revision Surgery 2021, Abd Adhesions Re (more content not included)... Normal [facility] CNPNon 10-13-2022 CNPN Telephone (GENBMI) SABINA ESPINOZA ([id number]) 1980 M Date Time Provider Department 10/13/22 SABINA BEAN During your visit today, we recorded the following information about you: Sabina Bean PA-C 10/13/2022 9:12 AM Signed I contacted patient, spoke to patient he is requesting an Oncology appointment for squamous cell carcinoma findings, I contacted cancer answer line for immediate referral, Ca line will contact patient directly today Sabina Bean PA-C Allergies As of Date: 10/13/2022 Noted Allergy Reaction PROCHLORPERAZINE 02/18/2014 1 - Mental Status Change VALSARTAN 02/18/2014 5 - Intolerance Date Reviewed: 01/20/2022 Reviewed by: Ann Marie Curry RN - Fully Assessed Reason for Visit: Results [95] Primary Visit Diagnosis:Skin cancer [C44.90] Order(s):CONSULT TO ONCOLOGY [9023] Order #: [id number]: 1 FUTURE Prescriptions as of 10/13/2022 - therapeutic multivitamin-mineral s (THERA-M PLUS) 9 mg iron-400 mcg tablet Take 1 tablet by mouth every morning. - DULoxetine (CYMBALTA) 30 mg capsule Take 30 mg by mouth twice daily. - pantoprazole DR (PROTONIX) 40 mg tablet Take 40 mg by mouth once daily. - pregabalin (LYRICA) 150 mg capsule Take 150 mg by mouth three times daily. - zolpidem (AMBIEN) 10 mg Take 10 mg by mouth at bedtime as needed. 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] 10/13/2021 10/21/2021 Postoperative pain [G89.18] 10/15/2021 10/24/2021 Transaminitis [R74.01] 10/15/2021 10/21/2021 Respiratory insufficiency [R06.89] 10/15/2021 10/21/2021 DVT (deep venous thrombosis) ([facility]) [I82.409] 10/15/2021 10/21/2021 Severe protein-calorie malnutrition (HCC) [E43] 10/18/2021 Gastrointestinal anastomotic stricture [K91.30] 01/18/2022 Encounter Status:Closed by SABINA BEAN on 10/13/22 [facility] Telephone (GENMAGGIE) SABINA ESPINOZA ([id number]) 1980 M Date Time Provider Department 10/12/22 AYLSA ASENCIO During your visit today, we recorded the following information about you: Ramon Mcneil 10/12/2022 4:01 PM Addendum Spoke to patient, advised that Myles contacted oncology and their department indicated to him that they would be reaching out to the patient today. David Roberts RN October 13, 2022 10:55 AM Patient called stating he hasn't heard back from anyone regarding an order to onocology.. Mr. Espinoza is requesting a return call [phone] Allergies As of Date: 10/12/2022 Noted Allergy Reaction PROCHLORPERAZINE 02/18/2014 1 - Mental Status Change VALSARTAN 02/18/2014 5 - Intolerance Date Reviewed: 01/20/2022 Reviewed by: Ann Marie Curry RN - Fully Assessed Reason for Visit: Orders [681] Patient Update [1234] Prescriptions as of 10/13/2022 - therapeutic multivitamin-mineral s (THERA-M PLUS) 9 mg iron-400 mcg tablet Take 1 tablet by mouth every morning. - DULoxetine (CYMBALTA) 30 mg capsule Take 30 mg by mouth twice daily. - pantoprazole DR (PROTONIX) 40 mg tablet Take 40 mg by mouth once daily. - pregabalin (LYRICA) 150 mg capsule Take 150 mg by mouth three times daily. - zolpidem (AMBIEN) 10 mg Take 10 mg by mouth at bedtime as needed. 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] 10/13/2021 10/21/2021 Postoperative pain [G89.18] 10/15/2021 10/24/2021 Transaminitis [R74.01] 10/15/2021 10/21/2021 Respiratory insufficiency [R06.89] 10/15/2021 10/21/2021 DVT (deep venous thrombosis) ([facility]) [I82.409] 10/15/2021 10/21/2021 Severe protein-calorie malnutrition (HCC) [E43] 10/18/2021 Gastrointestinal anastomotic stricture [K91.30] 01/18/2022 Encounter Status:Closed by ISMAELSHABBIRGaylaROWENAE on 10/13/22 Normal [facility] CULTURE WOUNDon 08-02-2022 CULTURE WOUND Culture Observations: METHICILLIN RESISTANT STAPH AUREUS ISOLATED. PLEASE FOLLOW APPROPRIATE ISOLATION PROCEDURES. Isolate 1 Staphylococcus aureus Heavy growth of Isolate 2 Enterococcus faecalis Moderate growth of ORGANISM 1 Staphylococcus aureus ANTIBIOTIC M.I.C RX STATUS Beta-Lactamase Pos POS F Cefoxitin Screen Pos POS F Benzylpenicillin >=0.5 R F Oxacillin >=4 R F Ciprofloxacin <=0.5 S F Levofloxacin <=0.12 S F Inducible Clindamycin Resistance Neg NEG F Erythromycin >=8 R F Clindamycin <=0.25 S F Quinupristin/Dalfopr istin <=0.25 S F Linezolid 2 S F Vancomycin 1 S F Tetracycline <=1 S F Rifampicin <=0.5 S F Trimethoprim/Sulfame thoxazole <=10 S F ORGANISM 2 Enterococcus faecalis ANTIBIOTIC M.I.C RX STATUS Beta-Lactamase Neg NEG F Benzylpenicillin 1 S F Ampicillin <=2 S F Gentamicin High Level (synergy) SYN-S S F Streptomycin High Level (synergy) SYN-R R F Quinupristin/Dalfopr istin 4 R F Linezolid 1 S F Vancomycin 1 S F Normal [facility] 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: Performed By: #### W OUNDCX ####[facility] [address] [address]Dr. Simona Maravilla CBC AUTO DIFFon 07-30-2022 BASO # 0.1 103/ul Normal 0.0-0.1 [facility] 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: Performed By: #### C BC #### [facility] [address] [place] [address] Dr. Simona Maravilla Basophils/100 WBC (Bld) 0.5 % Normal 0.2-2.0 [facility] 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: Performed By: #### C BC #### [facility] [address] [place] [address] Dr. Simona Maravilla EO # 0.2 103/ul Normal 0.0-0.7 [facility] 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: Performed By: #### C BC #### [facility] [address] [place] [address] Dr. Simona Maravilla Eosinophils/100 WBC (Bld) 1.9 % Normal 0.9-7.0 [facility] 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: Performed By: #### C BC #### [facility] [address] [place] [address] Dr. Simona Maravilla Erythrocyte distribution width (RBC) [Ratio] 17.1 % Critically high 11.0-15.0 [facility] 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: Performed By: #### C BC #### [facility] [address] [place] [address] Dr. Simona Maravilla Hematocrit (Bld) [Volume fraction] 37.3 % Critically low 42.0-54.0 [facility] 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: Performed By: #### C BC #### [facility] [address] [place] [address] Dr. Simona Maravilla Hemoglobin (Bld) [Mass/Vol] 11.0 g/dL Critically low 14.0-18.0 [facility] 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: Performed By: #### C BC #### [facility] [address] [place] [address] Dr. Simona Maravilla IG # 0.04 10e3/ul Critically high 0.00-0.03 [facility] 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: Performed By: #### C BC #### [facility] [address] [place] [address] Dr. Simona Maravilla IG % 0.4 % Normal 0.0-0.5 [facility] 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: Performed By: #### C BC #### [facility] [address] [place] [address] Dr. Simona Maravilla LYMPH # 0.9 103/ul Critically low 1.2-3.8 [facility] [facility] 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: Performed By: #### C BC #### [facility] [address] [place] [address] Dr. Simona Maravilla Lymphocytes/100 WBC (Bld) 8.3 % Critically low 20.5-60.0 [facility] 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: Performed By: #### C BC #### [facility] [address] [place] [address] Dr. Simona Maravilla MANUAL DIFF REQ NO Normal [facility] 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: Performed By: #### C BC #### [facility] [address] [place] [address] Dr. Simona Maravilla MCH (RBC) [Entitic mass] 22.2 pg Critically low 25.9-34.0 [facility] 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: Performed By: #### C BC #### [facility] [address] [place] [address] Dr. Simona Maravilla MCHC (RBC) [Mass/Vol] 29.5 g/dL Critically low 29.9-35.2 [facility] 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: Performed By: #### C BC #### [facility] [address] [place] [address] Dr. Simona Maravilla MCV (RBC) [Entitic vol] 75.2 fL Critically low 80.0-94.0 [facility] 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: Performed By: #### C BC #### [facility] [address] [place] [address] Dr. Simona Maravilla MONO # 1.2 103/ul Critically high 0.3-0.8 [facility] 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: Performed By: #### C BC #### [facility] [address] [place] [address] Dr. Simona Maravilla Monocytes/100 WBC (Bld) 10.8 % Normal 1.7-12.0 [facility] 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: Performed By: #### C BC #### [facility] [address] [place] [address] Dr. Simona Maravilla NEUT # 8.8 103/ul Critically high 1.4-6.5 [facility] 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: Performed By: #### C BC #### [facility] [address] [place] [address] Dr. Simona Maravilla Neutrophils/100 WBC (Bld) 78.1 % Critically high 43.0-75.0 [facility] 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: Performed By: #### C BC #### [facility] [address] [place] [address] Dr. Simona Maraivlla Platelet mean volume (Bld) [Entitic vol] 10.7 fL Normal 9.5-13.5 [facility] 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: Performed By: #### C BC #### [facility] [address] [place] [address] Dr. Simona Maravilla PLT 210 103/ul Normal 150-450 [facility] 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: Performed By: #### C BC #### [facility] [address] [place] [address] Dr. Simona Maravilla RBC 4.96 106/ul Normal 4.70-6.10 [facility] 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: Performed By: #### C BC #### [facility] [address] [place] [address] Dr. Simona Maravilla WBC 11.3 103/ul Critically high 4.0-11.0 [facility] 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: Performed By: #### C BC #### [facility] [address] [place] [address] Dr. Simona Maravilla EO # 0.3 103/ul Normal 0.0-0.7 [facility] 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: Performed By: #### C BC #### [facility] [address] [place] [address] Dr. Simona Maravilla Eosinophils/100 WBC (Bld) 2.3 % Normal 0.9-7.0 [facility] 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: Performed By: #### C BC #### [facility] [address] [place] [address] Dr. Simona Maravilla Hematocrit (Bld) [Volume fraction] 37.1 % Critically low 42.0-54.0 [facility] 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: Performed By: #### C BC #### [facility] [address] [place] [address] Dr. Simona Maravilla Hemoglobin (Bld) [Mass/Vol] 11.1 g/dL Critically low 14.0-18.0 [facility] 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: Performed By: #### C BC #### [facility] [address] [place] [address] Dr. Simona Maravilla LYMPH # 1.2 103/ul Normal 1.2-3.8 [facility] 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: Performed By: #### C BC #### [facility] [address] [place] [address] Dr. Simona Maravilla Lymphocytes/100 WBC (Bld) 11.1 % Critically low 20.5-60.0 [facility] 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: Performed By: #### C BC #### [facility] [address] [place] [address] Dr. Simona Maravilla MCH (RBC) [Entitic mass] 22.5 pg Critically low 25.9-34.0 [facility] 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: Performed By: #### C BC #### [facility] [address] [place] [address] Dr. Simona Maravilla MCHC (RBC) [Mass/Vol] 29.9 g/dL Normal 29.9-35.2 [facility] 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: Performed By: #### C BC #### [facility] [address] [place] [address] Dr. Simona Maravilla MCV (RBC) [Entitic vol] 75.3 fL Critically low 80.0-94.0 [facility] 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: Performed By: #### C BC #### [facility] [address] [place] [address] Dr. Simona Maravilla Monocytes/100 WBC (Bld) 10.9 % Normal 1.7-12.0 [facility] 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: Performed By: #### C BC #### [facility] [address] [place] [address] Dr. Simona Maravilla NEUT # 8.3 103/ul Critically high 1.4-6.5 [facility] 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: Performed By: #### C BC #### [facility] [address] [place] [address] Dr. Simona Maravilla Neutrophils/100 WBC (Bld) 74.8 % Normal 43.0-75.0 [facility] 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: Performed By: #### C BC #### [facility] [address] [place] [address] Dr. Simona Maravilla Platelet mean volume (Bld) [Entitic vol] 10.3 fL Normal 9.5-13.5 [facility] 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: Performed By: #### C BC #### [facility] [address] [place] [address] Dr. Simona Maravilla PLT 272 103/ul Normal 150-450 [facility] 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: Performed By: #### C BC #### [facility] [address] [place] [address] Dr. Simona Maravilla RBC 4.93 106/ul Normal 4.70-6.10 [facility] 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: Performed By: #### C BC #### [facility] [address] [place] [address] Dr. Simona Maravilla WBC 11.0 103/ul Normal 4.0-11.0 [facility] 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: Performed By: #### C BC #### [facility] [address] [place] [address] Dr. Simona Maravilla ER URINE PROFILEon 3 Bilirubin Ql (U) Negative Normal NEGATIVE [facility] 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: Performed By: #### C BC #### [facility] [address] [place] [address] Dr. Simona Maravilla Clarity (U) CLEAR Normal CLEAR [facility] 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: Performed By: #### C BC #### [facility] [address] [place] [address] Dr. Simona Maravilla Color (U) YELLOW Normal YELLOW [facility] 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: Performed By: #### C BC #### [facility] [address] [place] [address] Dr. Simona BULLOCK A micrscopic examination will be performed if indicated. Normal [facility] 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: Performed By: #### C BC #### [facility] [address] [place] [address] Dr. Simona Maravilla Glucose Ql (U) Negative Normal NEGATIVE [facility] 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: Performed By: #### C BC #### [facility] [address] [place] [address] Dr. Simona Maravilla Hemoglobin Ql (U) Negative Normal NEGATIVE [facility] 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: Performed By: #### C BC #### [facility] [address] [address] [address] Simona Maravilla Ketones Ql (U) Negative Normal NEGATIVE [facility] 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: Performed By: #### C BC #### [facility] [address] [address] [address] Simona Maravilla LEUKOCYTES Negative Normal NEGATIVE [facility] 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: Performed By: #### C BC #### [facility] [address] [place] [address] Dr. Simona Maravilla Nitrite Ql (U) Negative Normal NEGATIVE [facility] 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: Performed By: #### C BC #### [facility] [address] [place] [address] Dr. Simona Maravilla pH (U) 5.5 [pH] Normal 5-9 [facility] 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: Performed By: #### C BC #### [facility] [address] [place] [address] Dr. Simona Maravilla SPEC GRAVITY 1.010 Normal 1.005-<=1.025 [facility] 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: Performed By: #### C BC #### [facility] [address] [place] [address] Dr. Simona Maravilla UA PROTEIN Negative Normal NEGATIVE/ TRACE [facility] 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: Performed By: #### C BC #### [facility] [address] [place] [address] Dr. Simona Maravilla UR MICRO IND NOT INDICATED Normal [facility] 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: Performed By: #### C BC #### [facility] [address] [place] [address] Dr. Simona Maravilla Urobilinogen Qn (U) 4 {Daria'U}/dL Abnormal 0.2 - 1.0 [facility] 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: Performed By: #### C BC #### [facility] [address] [place] [address] Dr. Simona Maravilla IRON AND TIBCon 07-30-2022 % SATURATION 9.7 % Normal [facility] 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: Performed By: #### C RP, CMP #### [facility] [address] [place] [address] Dr. Simona Maravilla Iron [Mass/Vol] 34.0 ug/dL Critically low 65.0-175.0 [facility] 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: Performed By: #### C RP, CMP #### [facility] [address] [place] [address] Dr. Simona Maravilla TIBC DIRECT 351.0 ug/dL Normal 250.0-450.0 [facility] 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: Performed By: #### C RP, CMP #### [facility] [address] [place] [address] Dr. Simona Maravilla LACTATE/LACTIC ACIDon 2022 Lactate [Moles/Vol] 0.8 mmol/L Normal 0.4-2.0 [facility] 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: Performed By: #### C BC #### [facility] [address] [place] [address] Dr. Simona Maravilla PROF 14(COMP METB)on 023 Albumin [Mass/Vol] 3.1 g/dL Critically low 3.4-5.0 [facility] 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: Performed By: #### C RP, CMP #### [facility] [address] [place] [address] Dr. Simona Maravilla Albumin/Globulin [Mass ratio] 0.9 {ratio} Normal [facility] 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: Performed By: #### C RP, CMP #### [facility] [address] [place] [address] Dr. Simona Maravilla ALP [Catalytic activity/Vol] 125 U/L Critically high 46-116 [facility] 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: Performed By: #### C RP, CMP #### [facility] [address] [address] [address] Simona Maravilla ALT [Catalytic activity/Vol] 37 U/L Normal 16-63 [facility] 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: Performed By: #### C RP, CMP #### [facility] [address] [place] [address] Dr. Simona Maravilla Anion gap [Moles/Vol] 8.7 mmol/L Normal [facility] 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: Performed By: #### C RP, CMP #### [facility] [address] [place] [address] Dr. Simona Maravilla AST [Catalytic activity/Vol] 33 U/L Normal 15-37 [facility] 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: Performed By: #### C RP, CMP #### [facility] [address] [place] [address] Dr. Simona Maravilla Bilirubin [Mass/Vol] 0.7 mg/dL Normal 0.2-1.0 [facility] 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: Performed By: #### C RP, CMP #### [facility] [address] [place] [address] Dr. Simona Maravilla Calcium [Mass/Vol] 8.1 mg/dL Critically low 8.5-10.1 [facility] 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: Performed By: #### C RP, CMP #### [facility] [address] [place] [address] Dr. Simona Maravilla Chloride [Moles/Vol] 106 mmol/L Normal 98-107 [facility] 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: Performed By: #### C RP, CMP #### [facility] [address] [place] [address] Dr. Simona Maravilla CO2 [Moles/Vol] 27.2 mmol/L Normal 21.0-32.0 [facility] 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: Performed By: #### C RP, CMP #### [facility] [address] [place] [address] Dr. Simona Maravilla Creatinine [Mass/Vol] 0.77 mg/dL Normal 0.70-1.30 [facility] 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: Performed By: #### C RP, CMP #### [facility] [address] [address] [address] Simona Maravilla Globulin (S) [Mass/Vol] 3.5 g/dL Normal [facility] 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: Performed By: #### C RP, CMP #### [facility] [address] [address] [address] Simona Maravilla Glucose [Mass/Vol] 85 mg/dL Normal 74-106 [facility] 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: Performed By: #### C RP, CMP #### [facility] [address] [place] [address] Dr. Simona Maravilla Potassium [Moles/Vol] 3.9 mmol/L Normal 3.5-5.1 [facility] 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: Performed By: #### C RP, CMP #### [facility] [address] [place] [address] Dr. Simona Maravilla Protein [Mass/Vol] 6.6 g/dL Normal 6.4-8.[address] [facility] 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: Performed By: #### C RP, CMP #### [facility] [address] [place] [address] Dr. Simona Maravilla Sodium [Moles/Vol] 138 mmol/L Normal 136-145 [facility] 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: Performed By: #### C RP, CMP #### [facility] [address] [place] [address] Dr. Simona Maravilla Urea nitrogen/Creatinine [Mass ratio] 10.4 mg/mg Normal [facility] 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: Performed By: #### C RP, CMP #### [facility] [address] [place] [address] Dr. Simona Maravilla PROF CHEM 8 (BAS METB)on Anion gap [Moles/Vol] 8.4 mmol/L Normal [facility] 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: Performed By: #### C RP, CMP #### [facility] [address] [place] [address] Dr. Simona Maravilla Calcium [Mass/Vol] 8.3 mg/dL Critically low 8.5-10.1 [facility] 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: Performed By: #### C RP, CMP #### [facility] [address] [address] [address] Simona Maravilla Chloride [Moles/Vol] 105 mmol/L Normal 98-107 [facility] 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: Performed By: #### C RP, CMP #### [facility] [address] [address] [address] Simona Maravilla CO2 [Moles/Vol] 26.6 mmol/L Normal 21.0-32.0 [facility] 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: Performed By: #### C RP, CMP #### [facility] [address] [address] [address] Simona Maravilla Creatinine [Mass/Vol] 0.74 mg/dL Normal 0.70-1.30 [facility] 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: Performed By: #### C RP, CMP #### [facility] [address] [address] [address] Simona Maravilla EGFR-AF BOLIVIAN >60 Normal >=60 [facility] 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: Performed By: #### C RP, CMP #### [facility] [address] [place] [address] Dr. Simona Maravilla EGFR-NON AF BOLIVIAN >60 Normal >=60 [facility] 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: Performed By: #### C RP, CMP #### [facility] [address] [address] [address] Simona Maravilla Glucose [Mass/Vol] 87 mg/dL Normal 74-[address] [facility] 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: Performed By: #### C RP, CMP #### [facility] [address] [address] [address] Simona Maravilla Potassium [Moles/Vol] 4.0 mmol/L Normal 3.5-5.1 [facility] 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: Performed By: #### C RP, CMP #### [facility] [address] [address] [address] Simona Maravilla Sodium [Moles/Vol] 136 mmol/L Normal 136-[address] [facility] 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: Performed By: #### C RP, CMP #### [facility] [address] [address] [address] Simona Maravilla Urea nitrogen [Mass/Vol] 8.0 mg/dL Normal 7.0-18.0 [facility] 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: Performed By: #### C RP, CMP #### [facility] [address] [address] [address] Simona Maravilla Urea nitrogen/Creatinine [Mass ratio] 10.8 mg/mg Normal [facility] 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: Performed By: #### C RP, CMP #### [facility] [address] [address] [address] Simona Maravilla TSHon 07-30-2022 TSH 0.795 uIU/mL Normal 0.358-3.740 [facility] 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: Performed By: #### C RP, CMP #### [facility] [address] [address] [address] Simona Maravilla CBC AUTO DIFFon 07-29-2022 BASO # 0.1 103/ul Normal 0.0-0.1 [facility] 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: Performed By: #### C BC ####[facility] [address] [address]DrKali Maravilla Basophils/100 WBC (Bld) 0.4 % Normal 0.2-2.0 [facility] 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: Performed By: #### C BC ####[facility] [address] [address]DrKali Maravilla EO # 0.1 103/ul Normal 0.0-0.7 [facility] 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: Performed By: #### C BC ####[facility] [address] [id number] Maravilla Eosinophils/100 WBC (Bld) 0.7 % Critically low 0.9-7.0 [facility] 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: Performed By: #### C BC ####[facility] [address] [id number] Maravilla Erythrocyte distribution width (RBC) [Ratio] 17.9 % Critically high 11.0-15.0 [facility] 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: Performed By: #### C BC ####[facility] [address] [address]Dr. Simona Maravilla Hematocrit (Bld) [Volume fraction] 43.1 % Normal 42.0-54.0 [facility] 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: Performed By: #### C BC ####[facility] [address] [address]Dr. Simona Maravilla Hemoglobin (Bld) [Mass/Vol] 13.2 g/dL Critically low 14.0-18.0 [facility] 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: Performed By: #### C BC ####[facility] [address] [place], [place] [address]Dr. Simona Maravilla IG # 0.05 10e3/ul Critically high 0.00-0.03 [facility] 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: Performed By: #### C BC ####[facility] [address] [place], [place] [address]Dr. Simona Maravilla IG % 0.3 % Normal 0.0-0.5 [facility] 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: Performed By: #### C BC ####[facility] [address] [place], [place] [address]Dr. Simona Maravilla LYMPH # 1.6 103/ul Normal 1.2-3.8 [facility] 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: Performed By: #### C BC ####[facility] [address] [place], [place] [address]Dr. Simona Maravilla Lymphocytes/100 WBC (Bld) 10.4 % Critically low 20.5-60.0 [facility] 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: Performed By: #### C BC ####[facility] [address] [place], [place] [address]DrKali Maravilla MANUAL DIFF REQ NO Normal [facility] 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: Performed By: #### C BC ####[facility] [address] [address]Dr. Simona Maravilla MCH (RBC) [Entitic mass] 22.3 pg Critically low 25.9-34.0 [facility] 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: Performed By: #### C BC ####[facility] [address] [address]DrKali Maravilla MCHC (RBC) [Mass/Vol] 30.6 g/dL Normal 29.9-35.2 [facility] 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: Performed By: #### C BC ####[facility] [address] [address]DrKali Maravilla MCV (RBC) [Entitic vol] 72.8 fL Critically low 80.0-94.0 [facility] 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: Performed By: #### C BC ####[facility] [address] [place], [place] [address]DrKali Maravilla MONO # 1.5 103/ul Critically high 0.3-0.8 [facility] 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: Performed By: #### C BC ####[facility] [address] [place], [place] [address]DrKali Maravilla Monocytes/100 WBC (Bld) 10.1 % Normal 1.7-12.0 [facility] 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: Performed By: #### C BC ####[facility] [address] [place], [place] [address]DrKali Maravilla NEUT # 11.8 103/ul Critically high 1.4-6.5 [facility] 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: Performed By: #### C BC ####[facility] [address] [place], [place] [address]DrKali Maravilla Neutrophils/100 WBC (Bld) 78.1 % Critically high 43.0-75.0 [facility] 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: Performed By: #### C BC ####[facility] [address] [place], [place] [address]DrKali Maravilla Platelet mean volume (Bld) [Entitic vol] 9.5 fL Normal 9.5-13.5 [facility] 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: Performed By: #### C BC ####[facility] [address] [place], [place] [address]DrKali Maravilla PLT 340 103/ul Normal 150-450 [facility] 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: Performed By: #### C BC ####[facility] [address] [place], [place] [address]DwKali Maravilla RBC 5.92 106/ul Normal 4.70-6.10 [facility] 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: Performed By: #### C BC ####[facility] [address] [place], [place] [address]JuKali Maravilla WBC 15.1 103/ul Critically high 4.0-11.0 [facility] 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: Performed By: #### C BC ####[facility] [address] [place], [place] [address]Z[address] CT ABD/PELV W CONon 07-30-19 CT ABD/PELV W CON EXAMINATION: CT ABD/PELV W CON 07/29/2022 COMPARISON STUDY: CT of the abdomen and pelvis with contrast 01/10/2022. HISTORY: UNSPECIFIED ABDOMINAL PAIN TECHNIQUE: 3 mm sections were obtained from the lung bases through the pubic symphysis following administration of intravenous contrast. Coronal and sagittal reconstructed images were obtained. Dose reduction techniques were achieved by using automated exposure control and/or adjustment of mA and/or kV according to patient size and/or use of iterative reconstruction technique. FINDINGS: CT ABDOMEN: There is mild asymmetric elevation/eventratio n of left hemidiaphragm again noted. Mild bibasilar atelectatic changes are present. The heart size is normal. The previously identified cystic mass situated caudally to the lateral segment left hepatic lobe abutting the caudate lobe seen on prior study has been removed. There is a small nodular focus in this region projecting medial to suture material anterior to the caudate lobe. This measures 13 mm in diameter. On coronal imaging this measures 10 mm superior to inferior. This has attenuation measurement of 26 Hounsfield units. There is slight scalloping along the anterior hepatic capsular surface which is indeterminate as seen on image #36 unchanged. Left hepatic lobe overall is similarly somewhat atrophic. Gallbladder is surgically absent. Prior gastric bypass. Fibrofatty prominence of the excluded portion of the gastric fold pattern again noted. No obvious inflammatory changes or fluid about the gastric remanent. Anticolic position of the jejunal segments are again identified. There are collapsed and mildly thickened small bowel segments closely adherent to the anterior peritoneal surface down to the level of the umbilicus again identified. There is a midline incisional scar noted. There is soft tissue swelling with thickening of the skin and underlying subcutaneous edema about the umbilicus and lower abdominal pannus noted. CT PELVIS: The prostate contains calcified foci and is mildly enlarged. Seminal vesicles are symmetric. Urinary bladder is well distended with no acute abnormality. The sigmoid segment distally is collapsed. This extends to the right of the midline. There is gaseous distention of the redundant segment extending into the right mid abdomen. This has transverse diameter of 6.7 cm. More proximal aspect of the sigmoid colon contains feculent material and is partially collapsed, image 118. Significant retention of stool within the large bowel proximally to the level of the cecum. The appendix appears unremarkable. Spleen, pancreas, adrenals and kidneys demonstrate no acute abnormality. Small left renal sinus cysts are noted. There are distended small bowel segments within the left abdomen containing scattered air-fluid levels. The small bowel distention has progressed since prior exam. JJ anastomosis is noted within the right mid abdomen anteriorly, stable in position. One of the dilated small bowel segments with air-fluid level within the lower abdomen for example has transverse width of 4.6 cm. The terminal and more distal ileal segments within the lower abdomen and pelvis are collapsed. There are angulated appearing small bowel segments within the left lower quadrant and upper left hemipelvis. No acute osseous abnormality suspected IMPRESSION: 1. Interval resection of cystic mass situated anterior and cranial to the caudate lobe as seen on prior study from 01/10/2022. Small residual nodular component in this region on the current exam, 1.0 x 1.3 cm, axial image 36. This demonstrates water density. This may represent small postoperative seroma/hematoma. Small volume of retained lesion cannot be excluded. Continued followup is recommended. 2. Prior cholecystectomy and gastric bypass. 3. Intraperitoneal adhesions about the abdomen and pelvis are suspected. Dilated small bowel segments with scattered air-fluid levels about the left abdomen and pelvis likely represent a combination of postoperative ileus and partial small bowel obstruction. There is evidence of colonic ileus pattern as well. Significant constipation is noted. 4. Prostatomegaly. Small left renal sinus cysts. Electronically authenticated by: DONALDO BRITO Date: 2022-07-29 21:59 Normal [facility] CULTURE BLOODon 07-29-2022 Microscopic examination of blood, culture Culture Observations: NO GROWTH AT 5 DAYS. Normal [facility] 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: Performed By: #### B LDCX2 ####[facility] [address] [address]DrKali Maravilla Microscopic examination of blood, culture Culture Observations: NO GROWTH AT 5 DAYS. Normal [facility] 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: Performed By: #### B LDCX1 ####[facility] [address] [address]Dr. Simona Maravilla LACTATE/LACTIC ACIDon 2022 Lactate [Moles/Vol] 1.6 mmol/L Normal 0.4-2.0 [facility] 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: Performed By: #### C BC #### [facility] [address] [address] [address] Simona Maravilla PROF 14(COMP METB)on 023 Albumin [Mass/Vol] 3.8 g/dL Normal 3.4-5.0 [facility] 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: Performed By: #### C MP ####[facility] [address] [address]Dr. Simona Maravilla Albumin/Globulin [Mass ratio] 1.0 {ratio} [facility] 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: Performed By: #### C MP ####[facility] [address] [address]Dr. Simona Maravilla ALP [Catalytic activity/Vol] 147 U/L Critically high 46-116 [facility] 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: Performed By: #### C MP ####[facility] [address] [address]Dr. Simona Maravilla ALT [Catalytic activity/Vol] 17 U/L Normal 16-63 [facility] 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: Performed By: #### C MP ####[facility] [address] [address]Dr. Simona Maravilla Anion gap [Moles/Vol] 15.0 mmol/L [facility] 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: Performed By: #### C MP ####[facility] [address] [place] [id number]. Simona Maravilla AST [Catalytic activity/Vol] 22 U/L Normal 15-37 [facility] 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: Performed By: #### C MP ####[facility] [address] [place], [place] [address]Xq. Simona Maravilla Bilirubin [Mass/Vol] 0.8 mg/dL Normal 0.2-1.0 [facility] 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: Performed By: #### C MP ####[facility] [address] [place] [id number]. Simona Maravilla Calcium [Mass/Vol] 8.3 mg/dL Critically low 8.5-10.1 [facility] 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: Performed By: #### C MP ####[facility] [address] [place], [place] [address]Dr. Simona Maravilla Chloride [Moles/Vol] 103 mmol/L Normal 98-107 [facility] 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: Performed By: #### C MP ####[facility] [address] [place] [id number]. Simona Maravilla CO2 [Moles/Vol] 23.6 mmol/L Normal 21.0-32.0 [facility] 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: Performed By: #### C MP ####[facility] [address] [place], [place] [address]Dr. Simona Maravilla Creatinine [Mass/Vol] 0.86 mg/dL Normal 0.70-1.30 [facility] 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: Performed By: #### C MP ####[facility] [address] [id number]. Simona Maravilla EGFR-AF BOLIVIAN >60 Normal >=60 [facility] 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: Performed By: #### C MP ####[facility] [address] [place] [id number]. Simona Maravilla EGFR-NON AF BOLIVIAN >60 Normal >=60 [facility] 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: Performed By: #### C MP ####[facility] [address] [address]Dr. Simona Maravilla Globulin (S) [Mass/Vol] 3.9 g/dL Normal [facility] 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: Performed By: #### C MP ####[facility] [address] [place], [place] [address]Dr. Simona Maravilla Glucose [Mass/Vol] 95 mg/dL Normal 74-[address] [facility] Comment on above: Performed By: #### C MP ####[facility] [address] [place], [place] [address]Dr. Simona Maravilla Potassium [Moles/Vol] 3.6 mmol/L Normal 3.5-5.1 [facility] Comment on above: Performed By: #### C MP ####[facility] [address] [place], [place] [address]Dr. Simona Maravilla Protein [Mass/Vol] 7.7 g/dL Normal 6.4-8.[address] [facility] Comment on above: Performed By: #### C MP ####[facility] [address] [place], [place] [address]Dr. Simona Maravilla Sodium [Moles/Vol] 138 mmol/L Normal 136-[address] [facility] Comment on above: Performed By: #### C MP ####[facility] [address] [place], [place] [address]Dr. Simona Maravilla Urea nitrogen [Mass/Vol] 9.0 mg/dL Normal 7.0-18.0 [facility] Comment on above: Performed By: #### C MP ####[facility] [address] [place], [place] [address]Dr. Simona Maravilla Urea nitrogen/Creatinine [Mass ratio] 10.5 mg/mg Normal [facility] Comment on above: Performed By: #### C MP ####[facility] [address] [place], [place] [address]Dr. Simona Maravilla Covid-19 PCR ([facility])on 03-16 SARS-CoV-2 (COVID-19) RNA UMESH+probe Ql (Unsp spec) Not detected Normal NOT DETECTED [facility] Comment on above: Result Comment: When diagnostic testing is negative, the possibility of a false negative should be considered in the context of a patient's recent exposures and the presence of clinical signs and symptoms consistent with SARS-CoV-2. This test is not yet approved or cleared by the [place] FDA. When there are no FDA-approved or cleared tests available, and other criteria are met, FDA can make tests available under an emergency access mechanism called an Emergency Use Authorization (EUA). The EUA for this test is supported by the [place] of Health and Human Service's declaration that circumstances exist to justify the emergency use of in vitro diagnostics for the detection and/or diagnosis of the virus that causes COVID-19. This EUA will remain in effect for the duration of the COVID-19 declaration justifying emergency of IVDs, unless it is terminated or revoked by the FDA (after which the test may no longer be used). Performed By: #### C RP, CMP #### [facility] [address] [place] [address] Dr. Simona Maravilla XR CHEST 1 Von 03-31-2022 XR CHEST 1 V EXAMINATION: XR CHEST 1 V HISTORY: Fever, weakness and bodyaches. COMPARISON: Chest x-ray 03/19/2020 TECHNIQUE: Portable chest FINDINGS: The lung parenchyma is free of consolidation or infiltrate. No pneumothorax or pleural effusion. The cardiac, mediastinal and hilar contours are normal. The visualized osseous structures exhibit no gross abnormality. IMPRESSION: Normal chest x-ray Electronically authenticated by: LEYLA WASHINGTON Date: 2022-03-30 22:48 Normal [facility] CBC AUTO DIFFon 03-30-2022 BASO # 0.0 103/ul Normal 0.0-0.1 [facility] Comment on above: Performed By: #### C RP, CMP #### [facility] [address] [address] [address] Simona Maravilla Basophils/100 WBC (Bld) 0.4 % Normal 0.2-2.0 [facility] Comment on above: Performed By: #### C RP, CMP #### [facility] [address] [place], [place] [address] Dr. Simona Maravilla EO # 0.0 103/ul Normal 0.0-0.7 [facility] Comment on above: Performed By: #### C RP, CMP #### [facility] [address] [place] [address] Dr. Simona Maravilla Eosinophils/100 WBC (Bld) 0.0 % Critically low 0.9-7.0 [facility] Comment on above: Performed By: #### C RP, CMP #### [facility] [address] [place] [address] Dr. Simona Maravilla Erythrocyte distribution width (RBC) [Ratio] 18.4 % Critically high 11.0-15.0 [facility] Comment on above: Performed By: #### C RP, CMP #### [facility] [address] [place] [address] Dr. Simona Maravilla Hematocrit (Bld) [Volume fraction] 44.2 % Normal 42.0-54.0 [facility] Comment on above: Performed By: #### C RP, CMP #### [facility] [address] [place] [address] Dr. Simona Maravilla Hemoglobin (Bld) [Mass/Vol] 13.9 g/dL Critically low 14.0-18.0 [facility] Comment on above: Performed By: #### C RP, CMP #### [facility] [address] [place] [address] Dr. Simona Maravilla IG # 0.05 10e3/ul Critically high 0.00-0.03 [facility] Comment on above: Performed By: #### C RP, CMP #### [facility] [address] [place] [address] Dr. Simona Maravilla IG % 0.5 % Normal 0.0-0.5 [facility] Comment on above: Performed By: #### C RP, CMP #### [facility] [address] [place] [address] Dr. Simona Maravilla LYMPH # 0.6 103/ul Critically low 1.2-3.8 The [facility] Comment on above: Performed By: #### C RP, CMP #### [facility] [address] [place] [address] Dr. Simona Maravilla Lymphocytes/100 WBC (Bld) 5.5 % Critically low 20.5-60.0 [facility] Comment on above: Performed By: #### C RP, CMP #### [facility] [address] [place] [address] Dr. Simona Maravilla MANUAL DIFF REQ NO Normal [facility] Comment on above: Performed By: #### C RP, CMP #### [facility] [address] [place] [address] Dr. Simona Maravilla MCH (RBC) [Entitic mass] 23.4 pg Critically low 25.9-34.0 [facility] Comment on above: Performed By: #### C RP, CMP #### [facility] [address] [place] [address] Dr. Simona Maravilla MCHC (RBC) [Mass/Vol] 31.4 g/dL Normal 29.9-35.2 [facility] Comment on above: Performed By: #### C RP, CMP #### [facility] [address] [place] [address] Dr. Simona Maravilla MCV (RBC) [Entitic vol] 74.3 fL Critically low 80.0-94.0 [facility] Comment on above: Performed By: #### C RP, CMP #### [facility] [address] [place] [address] Dr. Simona Maravilla MONO # 0.9 103/ul Critically high 0.3-0.8 The [facility] Comment on above: Performed By: #### C RP, CMP #### [facility] [address] [place] [address] Dr. Simona Maravilla Monocytes/100 WBC (Bld) 8.2 % Normal 1.7-12.0 [facility] Comment on above: Performed By: #### C RP, CMP #### [facility] [address] [place] [address] Dr. Simona Maravilla NEUT # 8.8 103/ul Critically high 1.4-6.5 [facility] Comment on above: Performed By: #### C RP, CMP #### [facility] [address] [place] [address] Dr. Simona Maravilla Neutrophils/100 WBC (Bld) 85.4 % Critically high 43.0-75.0 [facility] Comment on above: Performed By: #### C RP, CMP #### [facility] [address] [address] [address] Simona Maravilla Platelet mean volume (Bld) [Entitic vol] 10.0 fL Normal 9.5-13.5 [facility] Comment on above: Performed By: #### C RP, CMP #### [facility] [address] [address] [address] Simona Maravilla PLT 342 103/ul Normal 150-450 [facility] Comment on above: Performed By: #### C RP, CMP #### [facility] [address] [place] [address] Dr. Simona Maravilla RBC 5.95 106/ul Normal 4.70-6.10 [facility] Comment on above: Performed By: #### C RP, CMP #### [facility] [address] [place] [address] Dr. Simona Maravilla WBC 10.3 103/ul Normal 4.0-11.0 [facility] Comment on above: Performed By: #### C RP, CMP #### [facility] [address] [place] [address] Dr. Simona Maravilla INFLUENZA A AND B AGon 03-30 [facility] SEE BELOW Normal [facility] Comment on above: Result Comment: Nega tive for Flu B protein antigen. Infection due to Flu B cannot be ruled out. Flu B antigen in the sample may be below the detection limit of the test. Performed By: #### I NFLUAB ####[facility] [address] [address]DrKali Maravilla INFLUENZA A AG Positive Abnormal NEGATIVE SEE COMMENT [facility] Comment on above: Performed By: #### I NFLUAB ####[facility] [address] [address]DrKali Maravilla INFLUENZA B AG Negative Normal NEGATIVE SEE COMMENT [facility] Comment on above: Performed By: #### I NFLUAB ####[facility] [address] [place] [id number] Maravilla INFLUPOSH SEE BELOW Normal [facility] Comment on above: Result Comment: NOTE : Live attenuated influenzae vaccine viruses can cause a positive result for a rapid influenza diagnostic test if administered up to 7 days prior to rapid testing. Performed By: #### I NFLUAB ####[facility] [address] [id number] Maravilla INTERNAL CONTROLS Within Normal Limits Normal Wi thin Normal Limits [facility] Comment on above: Performed By: #### I NFLUAB ####[facility] [address] [id number]. Simona Maravilla PROF CHEM 8 (BAS METB)on Anion gap [Moles/Vol] 13.6 mmol/L Normal [facility] Comment on above: Performed By: #### C RP, CMP #### [facility] [address] [address] [address] Simona Maravilla Calcium [Mass/Vol] 8.8 mg/dL Normal 8.5-10.[address] [facility] Comment on above: Performed By: #### C RP, CMP #### [facility] [address] [address] [address] Simona Maravilla Chloride [Moles/Vol] 101 mmol/L Normal 98-107 [facility] Comment on above: Performed By: #### C RP, CMP #### [facility] [address] [address] [address] Simona Maravilla CO2 [Moles/Vol] 23.3 mmol/L Normal 21.0-32.0 [facility] Comment on above: Performed By: #### C RP, CMP #### [facility] [address] [address] [address] Simona Maravilla Creatinine [Mass/Vol] 0.87 mg/dL Normal 0.70-1.30 [facility] Comment on above: Performed By: #### C RP, CMP #### [facility] [address] [address] [address] Simona Maravilla EGFR-AF BOLIVIAN >60 Normal >=60 [facility] Comment on above: Performed By: #### C RP, CMP #### [facility] [address] [place] [address] Dr. Simona Maravilla EGFR-NON AF BOLIVIAN >60 Normal >=60 [facility] Comment on above: Performed By: #### C RP, CMP #### [facility] [address] [address] [address] Simona Maravilla Glucose [Mass/Vol] 124 mg/dL Critically high 74-106 T [facility] Comment on above: Performed By: #### C RP, CMP #### [facility] [address] [address] [address] Simona Maravilla Potassium [Moles/Vol] 2.9 mmol/L Critically low 3.5-5.1 [facility] Comment on above: Performed By: #### C RP, CMP #### [facility] [address] [place] [address] Dr. Simona Maravilla Sodium [Moles/Vol] 135 mmol/L Critically low 136-145 Th [facility] Comment on above: Performed By: #### C RP, CMP #### [facility] [address] [place] [address] Dr. Simona Maravilla Urea nitrogen [Mass/Vol] 10.0 mg/dL Normal 7.0-18.0 [facility] Comment on above: Performed By: #### C RP, CMP #### [facility] [address] [place] [address] Dr. Simona Maravilla Urea nitrogen/Creatinine [Mass ratio] 11.5 mg/mg Normal [facility] Comment on above: Performed By: #### C RP, CMP #### [facility] [address] [address] [address] Simona Maravilla CBC panel Auto (Bld)on 01-20 Erythrocyte distribution width (RBC) [Ratio] 15.9 % High 11.5-15.0 [facility] Comment on above: Order Comment: Speci men Type: BLOOD SPECIMENOrdering Facility: [facility] Address: [address] [place] [id number] Performed By: #### 5 8410-2 ####[facility] LABCLIA [id number] [place] [address] [place] Hematocrit (Bld) [Volume fraction] 42.7 % Normal 39.0-51.0 [facility] Comment on above: Order Comment: Speci men Type: BLOOD SPECIMENOrdering Facility: [facility] Address: [address] [place], [place] [address] Performed By: #### 5 8410-2 ####[facility] LABIA [id number] [place] [address] [place] Hemoglobin (Bld) [Mass/Vol] 13.1 g/dL Normal 13.0-17.0 [facility] Comment on above: Order Comment: Speci men Type: BLOOD SPECIMENOrdering Facility: [facility] Address: [address] [place], [place] [address] Performed By: #### 5 8410-2 ####[facility] LABIA [id number] [place] [address] [place] MCH (RBC) [Entitic mass] 23.8 pg Low 26.0-34.0 [facility] Comment on above: Order Comment: Speci men Type: BLOOD SPECIMENOrdering Facility: [facility] Address: [address] [place], [place] [address] Performed By: #### 5 8410-2 ####[facility] LABIA [id number] [place] [address] [place] MCHC (RBC) [Mass/Vol] 30.7 g/dL Normal 30.5-36.0 [facility] Comment on above: Order Comment: Speci men Type: BLOOD SPECIMENOrdering Facility: [facility] Address: [address] [place], [place] [address] Performed By: #### 5 8410-2 ####[facility] LABCLIA [id number] [place] [address] [place] MCV (RBC) [Entitic vol] 77.5 fL Low 80.0-100.0 [facility] Comment on above: Order Comment: Speci men Type: BLOOD SPECIMENOrdering Facility: [facility] Address: [address] [place], [place] [address] Performed By: #### 5 8410-2 ####[facility] LABIA [id number] [address] [place] Nucleated RBC (Bld) [#/Vol] 10*3/uL Normal <0.01 [facility] Comment on above: Order Comment: Speci men Type: BLOOD SPECIMENOrdering Facility: [facility] Address: [address] [place], [place] [address] Performed By: #### 5 8410-2 ####[facility] [id number] [address] [place] Platelet mean volume (Bld) [Entitic vol] 10.2 fL Normal 9.0-12.7 [facility] Comment on above: Order Comment: Speci men Type: BLOOD SPECIMENOrdering Facility: [facility] Address: [address] [place] [address] Performed By: #### 5 8410-2 ####[facility] LABIA [id number] [place] [address] [place] Platelets (Bld) [#/Vol] 311 10*3/uL Normal 150-400 [facility] Comment on above: Order Comment: Speci men Type: BLOOD SPECIMENOrdering Facility: [facility] Address: [address] [place] [address] Performed By: #### 5 8410-2 ####[facility] LABCLIA [id number] [place] [address] [place] RBC (Bld) [#/Vol] 5.51 10*6/uL Normal 4.20-6.00 [facility] Comment on above: Order Comment: Speci men Type: BLOOD SPECIMENOrdering Facility: [facility] Address: [address] [place] [address] Performed By: #### 5 8410-2 ####[facility] LABCLIA [id number] [address] [place] WBC (Bld) [#/Vol] 5.11 10*3/uL Normal 3.70-11.00 [facility] Comment on above: Order Comment: Speci men Type: BLOOD SPECIMENOrdering Facility: [facility] Address: [address] [place] [address] Performed By: #### 5 8410-2 ####[facility] LABCLIA [id number] [address] OF [facility] CNDSon 01-20-2022 CNDS HNO ID: [id number] Author: Kellie Pratt MD Service: General Surgery Author Type: Resident Type: Discharge Summary Filed: 01/20/2022 3:50 PM Note Text: Attestation signed by Alysa Asencio MD at 01/23/2022 10:54 AM Attending Note I evaluated the patient and personally participated in the chapin components. I agree with the resident's findings and plan as documented and have discussed the case and management of the patient's care with the resident. Signature: Alysa Asencio MD Date: 01/23/2022 Time: 10:54 AM GENERAL SURGERY DISCHARGE SUMMARY PATIENT NAME: Sabina Espinoza ADMISSION DATE: 01/18/2022 DISCHARGE DATE: 01/20/2022 ATTENDING PHYSICIAN: Alysa Asencio MD Code Status: Not on file Highest Readmission Risk Score: 21 The 30 day readmissions risk score is derived from an internally validated risk model which evaluates patient level characteristics, utilization history, medication orders and lab results up until the day of discharge. Patients with a score of 40 or above are considered highest risk for readmission. Specific patient level drivers will be listed at the bottom of the summary. REASON FOR HOSPITALIZATION: (R10.84) Generalized abdominal pain (primary encounter diagnosis) Plan: oxyCODONE (ROXICODONE) 5 mg/5 mL oral solution, DISCONTINUED: oxyCODONE (ROXICODONE) 5 mg/5 mL oral solution (R11.2) Nausea and vomiting, unspecified vomiting type Plan: oxyCODONE (ROXICODONE) 5 mg/5 mL oral solution, DISCONTINUED: oxyCODONE (ROXICODONE) 5 mg/5 mL oral solution (Z98.84) History of Lauren-en-Y gastric bypass Plan: oxyCODONE (ROXICODONE) 5 mg/5 mL oral solution, DISCONTINUED: oxyCODONE (ROXICODONE) 5 mg/5 mL oral solution OPERATIONS DURING HOSPITALIZATION: * No surgery found * PROCEDURES DURING HOSPITALIZATION: EGD HOSPITAL COURSE: Patient was admitted for poor oral intake, nausea, and vomiting. On 01/19 he underwent an EGD with balloon dilation. After the procedure, his symptoms improved, and he was started on clear liquids, and then advanced to full liquids. During his admission, he was reviewed by pain management and they recommended an oxycodone taper schedule on discharge. His squamous skin cancer was reviewed by the plastic surgery team who did a bedside punch biopsy for the recurrent lesion. They recommended outpatient followup in the clinic, however patient preferred to follow with a local provider, so a paper order was given to patient based on his request. At time of discharge, his pain was controlled, he was tolerating liquids, and was in good condition. 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 Transitions of Care Critical Issues: SPECIALIST FOLLOW-UP: Dr Asencio, Chronic Pain, Dermatology for skin cancer LABS AND PROCEDURES PENDING AT DISCHARGE: Biopsy Results (punch biopsy results for recurrent skin lesion) CONSULTING TEAMS DURING HOSPITALIZATION: Surgery : Plastic Treatment Team: Attending Provider: Alysa Asencio MD Primary Service: [facility] TEAM 4 ([facility]) PATIENT CONDITION AT DISCHARGE: Stable DISCHARGE DISPOSITION: Home with Self Care INFORMATION PROVIDED TO PATIENT: as per DCI DIET: Bariatric Phase 2 diet: Full liquid, carbohydrate controlled ACTIVITY: Resume pre-hospital activity WOUND/SURGICAL SITE CARE: None ALLERGIES Allergen Reactions Prochlorperazine Mental Status Change Valsartan Intolerance DISCHARGE MEDICATION: Current Discharge Medication List START taking these medications acetaminophen (TYLENOL) 1,000 mg Take 1,000 mg by mouth every 6 hours as needed (Mild Pain (1-3) - Enteral). Do not exceed 5 doses in 24 hours. Qty: 1100 mL Refills: 0 ondansetron orally disintegrating (ZOFRAN ODT) 8 mg Take 8 mg by mouth every 6 hours as needed for nausea/vomiting. Qty: 28 tablet Refills: 0 oxyCODONE (ROXICODONE) 5 mg Take 5 mg by mouth every 6 hours as needed for pain. oxycodone IR 5- 10 mg PO LIQUID q6h PRN moderate (5 mg) to severe (10 mg) pain x 1 days - oxycodone IR 5 mg PO LIQUID q6h PRN pain x 1 day - oxycodone IR 5 mg PO LIQUID q8h PRN pain x 1 day - oxycodone IR 5 mg PO LIQUID q12h PRN pain x 1 days - oxycodone IR 5 mg PO LIQUID q24h PRN pain x 1 days - stop oxycodone Qty: 120 mL Refills: 0 Associated Diagnoses:Generalize d abdominal pain; Nausea and vomiting, unspecified vomiting type; History of Lauren-en-Y gastric bypass CONTINUE these medications which have CHANGED sucralfate (CARAFATE) 1 g Take 1 g by mouth four times daily. Qty: 120 tablet Refills: 0 CONTINUE these medications which have NOT CHANGED therapeutic multivitamin-mineral s (THERA-M PLU (more content not included)... [facility] CNPNon 01-20-2022 CNPN Telephone (GENSMN) SABINA ESPINOZA ([id number]) 1980 Date Time Provider Department 01/20/22 NAOMY LING During your visit today, we recorded the following information about you: Allergies As of Date: 01/20/2022 Noted Allergy Reaction PROCHLORPERAZINE 02/18/2014 1 - Mental Status Change VALSARTAN 02/18/2014 5 - Intolerance Date Reviewed: 01/20/2022 Reviewed by: Ann Marie Curry RN - Fully Assessed Reason for Visit: Patient Question [1477] Primary Visit Diagnosis:Squamous cell carcinoma skin of abdomen [C44.529] Order(s):CONSULT TO DERMATOLOGY [9006] Order #: [id number]: 1 FUTURE Prescriptions as of 01/20/2022 - sucralfate (CARAFATE) 1 gram tablet Take 1 tablet by mouth four times daily. - acetaminophen (TYLENOL) 650 mg/20.3 mL soln Take 31.23 mL by mouth every 6 hours as needed (Mild Pain (1-3) - Enteral) for up to 15 days. Do not exceed 5 doses in 24 hours. - ondansetron orally disintegrating (ZOFRAN ODT) 8 mg disintegrating tablet Take 1 tablet by mouth every 6 hours as needed for nausea/vomiting for up to 7 days. - oxyCODONE (ROXICODONE) 5 mg/5 mL oral solution Take 5 mL by mouth every 6 hours as needed for pain for up to 7 days. oxycodone IR 5- 10 mg PO LIQUID q6h PRN moderate (5 mg) to severe (10 mg) pain x 1 days - oxycodone IR 5 mg PO LIQUID q6h PRN pain x 1 day - oxycodone IR 5 mg PO LIQUID q8h PRN pain x 1 day - oxycodone IR 5 mg PO LIQUID q12h PRN pain x 1 days - oxycodone IR 5 mg PO LIQUID q24h PRN pain x 1 days - stop oxycodone - therapeutic multivitamin-mineral s (THERA-M PLUS) 9 mg iron-400 mcg tablet Take 1 tablet by mouth every morning. - DULoxetine (CYMBALTA) 30 mg capsule Take 30 mg by mouth twice daily. - pantoprazole DR (PROTONIX) 40 mg tablet Take 40 mg by mouth once daily. - pregabalin (LYRICA) 150 mg capsule Take 150 mg by mouth three times daily. - zolpidem (AMBIEN) 10 mg Take 10 mg by mouth at bedtime as needed. Facility-Administere d Medications as of 01/20/2022 - sucralfate 1 g tab(s) (CARAFATE) - NaCl 0.9% iv flush bag - pregabalin 150 mg cap(s) (LYRICA) - methocarbamol 500 mg tab(s) (ROBAXIN) - pantoprazole DR 40 mg tab(s) (PROTONIX) - DULoxetine 20 mg cap(s) (CYMBALTA) - sodium chloride 0.9 % (flush) 3-5 mL (BD POSIFLUSH) - thiamine 100 mg tab(s) (VITAMIN B1) - acetaminophen 650 mg tab(s) (TYLENOL) - acetaminophen 650 mg CUP (TYLENOL) - oxyCODONE IR 5-10 mg tab(s) (ROXICODONE) - ondansetron (PF) 4 mg injection (ZOFRAN) - metoclopramide HCl 5 mg injection (REGLAN) - enoxaparin 40 mg injection (LOVENOX) - zolpidem 10 mg tab(s) (AMBIEN) Problem List As Of Date 01/20/2022 Noted Resolved HTN (hypertension) [I10] 10/07/2021 Obesity (BMI 30.0-34.9) [E66.9] 10/07/2021 GERD (gastroesophageal reflux disease) [K21.9] 10/07/2021 Postoperative anemia due to acute blood loss [D*10/07/2021 10/21/2021 Gastrojejunal anastomotic stricture [K91.89] 10/13/2021 10/21/2021 Postoperative pain [G89.18] 10/15/2021 10/24/2021 Transaminitis [R74.01] 10/15/2021 10/21/2021 Respiratory insufficiency [R06.89] 10/15/2021 10/21/2021 DVT (deep venous thrombosis) (HCC) [I82.409] 10/15/2021 10/21/2021 Severe protein-calorie malnutrition (HCC) [E43] 10/18/2021 Gastrointestinal anastomotic stricture [K91.30] 01/18/2022 Encounter Status:Closed by NAOMY LING on 01/20/22 Normal [facility] CONSULTon 01-20-2022 CONSULT HNO ID: [id number] Author: Angelica Haines PA-C Service: Pain Management Author Type: Physician Bail Agent Type: Consults Filed: 01/20/2022 12:14 PM Note Text: CONSULT: CHRONIC PAIN MANAGEMENT SERVICE PATIENT NAME: Sabina Espinoza DATE of SERVICE: January 20, 2022 TIME of SERVICE: 11:25AM REASON FOR CONSULT: Optimization of acute on chronic abdominal pain in s/o complex surgical abdominal history REQUESTING PROVIDER: Kellie Pratt MD PCP: Salvatore Camargo MD, MD ASSESSMENT: Mr. Sabina Espinoza is a 41 yo M from [place], [place] w/ a PMHx of chronic abdominal pain associated w/ complex surgical history including RNYGB (2009) c/b bleeding, and early takeback, SBO (2019) s/p XL x 2 further c/b GJ stricture, and poor oral intake requiring multiple dilations, and stenting and again s/p XL, adhesiolysis, and open revision of GJ anastomosis( 2) who was re-admitted to [facility] on 01/18/2022 for further evaluation and management of worsening of his chronic abdominal pain associated w/ vomiting and feeling food stuck . 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 PLAN: 1. Per PDMP report in [facility], Mr. Espinoza has not been prescribed chronic opioid therapy (COT), however, he has been prescribed Lyrica 150 mg # 90 tabs x 30 days per Salvatore Camargo in [place], [place] since at least 09/14/2020 and last dispensed on 12/28/2021 (was previously prescribed gabapentin up to 800 mg # 90 tabs x 30 days up till 08/20/2020). Please refer to the PDMP tab in [facility] for full detailed description of previous 24 months. 2. Currently, Mr. Espinoza is ordered the following medications for pain: - acetaminophen 650 mg PO q6h PRN mild pain (AST: 16, ALT: 13) - Robaxin 500 mg PO TID - Cymbalta 20 mg PO BID - Lyrica 150 mg PO TID (Estimated Creatinine Clearance: 213.4 mL/min (A) (based on SCr of 0.5 mg/dL (L)). - oxycodone IR 5-10 mg PO q6h PRN moderate pain (two 5 mg tabs given 01/18, two 10 mg tab given 01/19, and one 10 mg tab given today, 01/20) 3. Since w/ no hepatic impairment or if not otherwise contraindicated, may consider ordering acetaminophen 1,000 mg PO LIQUID q6h scheduled x 5-7 days for amelioration of acute on chronic nociceptive pain complaints. If ordering for a longer period, would then monitor LFTs to avoid hepatic injury. 4. And, in a further effort to minimize total opioid requirement with non-opioid analgesic medication, would consider increasing current dose/frequency of skeletal muscle relaxant to Robaxin 500-750 mg PO q6h PRN moderate (500 mg) to severe (750 mg) pain associated w/ muscle spasms/abdominal cramping. 6. Since w/ normal LFTs and if w/ no h/o bleeding diatheses or not otherwise contraindicated, may consider increasing current Cymbalta dose to 30 mg PO BID for possible improvement of Mr. Espinoza's chronic MSK and neuropathic pain complaints. 7. If after 1-3 days with the above changes to medication and if pain continues to be poorly controlled, and since w/ normal renal function, could consider further up-titration of Lyrica for optimization of Mr. Espinoza's chronic neuropathic abdominal pain complaints. Please see below for a sample upward titration schedule (holding titration if w/ excessive somnolence, dizziness, peripheral edema or any other notable and unwanted side effects): - Today: Lyrica 150 mg PO QAM + QPM and Lyrica 200 mg PO QHS x 3 days - Then: Lyrica 150 mg PO QAM and Lyrica 200 mg PO QPM + QHS x 3 days - Then: Lyrica 200 mg PO TID 8. When ready for discharge, august d/c Mr. Espinoza w/ a short opioid taper prescription. Will defer to primary team for duration of taper: - oxycodone IR 5- 10 mg PO LIQUID q6h PRN moderate (5 mg) to severe (10 mg) pain x 1-3 days - oxycodone IR 5 mg PO LIQUID q6h PRN pain x 1-3 days - oxycodone IR 5 mg PO LIQUID q8h PRN pain x 1-3 days - oxycodone IR 5 mg PO LIQUID q12h PRN pain x 1-3 days - oxycodone IR 5 mg PO LIQUID q24h PRN pain x 1-3 days - stop oxycodone 9. Should Mr. Espinoza wish to establish care with [facility] outpatient Chronic Pain Management Service, he may call [phone] to schedule an appointment for new patient evaluation. He was provided w/ this phone number so that he may call once he learns of his other upcoming appointments. 10. Conversely, should primary team wish to make the appointment for patient once other outpatient appointments are set up, please place follow up after discharge order in [facility] for [facility]. Thank you for this consult. Primary team responsible for placing all/any of above mentioned orders as deemed appropriate. Please don't hesitate to contact us with any further concerns. Angelica Haines PA-C Chronic Pain Pager # [phone] January 20, 2022 HPI: Sabina Espinoza was seen this morning while h (more content not included)... Normal [facility] Comprehensive metabolic 2000 panelon 01-20-2022 Albumin [Mass/Vol] 3.4 g/dL Low 3.9-4.9 [facility] Comment on above: Order Comment: Speci men Type: BLOOD SPECIMENOrdering Facility: [facility] Address: [address] [place], [place] [address] Performed By: #### 1 9123-9, 70332-0, 2776- ####[facility] LABCLIA [id number] [place] [address] [place] ALP [Catalytic activity/Vol] 96 U/L Normal 38-113 [facility] Comment on above: Order Comment: Speci men Type: BLOOD SPECIMENOrdering Facility: [facility] Address: [address] [place] [address] Performed By: #### 1 9123-9, 01280-2, 2776- ####[facility] LABCLIA [id number] [place] [address] [place] ALT [Catalytic activity/Vol] 13 U/L Normal 10-54 [facility] Comment on above: Order Comment: Speci men Type: BLOOD SPECIMENOrdering Facility: [facility] Address: [address] [place] [address] Performed By: #### 1 9123-9, 28217-6, 2776- ####[facility] LABIA [id number] [place] [address] [place] Anion gap [Moles/Vol] 8 mmol/L Low 9-18 [facility] Comment on above: Order Comment: Speci men Type: BLOOD SPECIMENOrdering Facility: [facility] Address: [address] [place] [address] Performed By: #### 1 9123-9, 81202-0, 2776- ####[facility] LABCLIA [id number] [place] [address] [place] AST [Catalytic activity/Vol] 16 U/L Normal 14-40 [facility] Comment on above: Order Comment: Speci men Type: BLOOD SPECIMENOrdering Facility: [facility] Address: [address] [place] [address] Performed By: #### 1 9123-9, 57237-4, 2777- ####[facility] LABCLIA [id number] [place] [address] [place] Bilirubin [Mass/Vol] 0.5 mg/dL Normal 0.2-1.3 [facility] [place] [facility] Comment on above: Order Comment: Speci men Type: BLOOD SPECIMENOrdering Facility: [facility] Address: [address] [place], [place] [address] Performed By: #### 1 9123-9, 24043-5, 2777-1 ####[facility] LABCLIA [id number] [place] [address] [place] Calcium [Mass/Vol] 8.7 mg/dL Normal 8.5-10.2 [facility] Comment on above: Order Comment: Speci men Type: BLOOD SPECIMENOrdering Facility: [facility] Address: [address] [place] [address] Performed By: #### 1 9123-9, 08418-2, 277- ####[facility] LABCLIA [id number] [place] [address] [place] Chloride [Moles/Vol] 104 mmol/L Normal 97-105 [facility] Comment on above: Order Comment: Speci men Type: BLOOD SPECIMENOrdering Facility: [facility] Address: [address] [place], [place] [address] Performed By: #### 1 9123-9, 78084-8, 277- ####[facility] LABCLIA [id number] [place] [address] [place] CO2 [Moles/Vol] 24 mmol/L Normal 22-30 [facility] Comment on above: Order Comment: Speci men Type: BLOOD SPECIMENOrdering Facility: [facility] Address: [address] [place], [place] [address] Performed By: #### 1 9123-9, 75378-1, 2777- ####[facility] LABCLIA [id number] [place] [address] [place] [facility] Creatinine [Mass/Vol] 0.50 mg/dL Low 0.73-1.22 [facility] Comment on above: Order Comment: Lit castano Type: BLOOD SPECIMENOrdering Facility: [facility] Address: [address] [place], [place] [address] Performed By: #### 1 9123-9, 51214-2, 2777-1 ####[facility] LABIA [id number] [address] ESTIMATED GLOMERULAR FILTRATION RATE 130 mL/min/1.73m??? Normal >=60 [facility] Comment on above: Order Comment: Lit castano Type: BLOOD SPECIMENOrdering Facility: [facility] Address: [address] [place] [address] Result Comment: Philly mated Glomerular Filtration Rate (eGFR) is calculated using the 2020 CKD-EPI creatinine equation. This equation utilizes serum creatinine, sex, and age as parameters. The creatinine assay has traceable calibration to isotope dilution-mass spectrometry. Refer to KDIGO guidelines for clinical interpretation. In patients with unstable renal function, e.g. those with acute kidney injury, the eGFR may not accurately reflect actual GFR. Performed By: #### 1 9123-9, 56188-8, 2776- ####[facility] LABIA [id number] [place] [address] [place] Glucose [Mass/Vol] 71 mg/dL Low 74-99 [facility] Comment on above: Order Comment: Lit castano Type: BLOOD SPECIMENOrdering Facility: [facility] Address: [address] [place], [place] [address] Result Comment: The [place] Diabetes Association (ADA) provides guidance for cutoff values for fasting glucose and random glucose. The ADA defines fasting as no caloric intake for at least 8 hours. Fasting plasma glucose results between 100 to 125 mg/dL indicate increased risk for diabetes (prediabetes). Fasting plasma glucose results greater than or equal to 126 mg/dL meet the criteria for diagnosis of diabetes. In the absence of unequivocal hyperglycemia, results should be confirmed by repeat testing. In a patient with classic symptoms of hyperglycemia or hyperglycemic crisis, random plasma glucose results greater than or equal to 200 mg/dL meet the criteria for diagnosis of diabetes. Reference: Standards of Medical Care in Diabetes 2016, [place] [employer] Association. Diabetes Care. 2016.39(Suppl 1). Performed By: #### 1 9123-9, 74069-2, 2776- ####[facility] LABCLIA [id number] [place] [address] [place] Potassium [Moles/Vol] 3.9 mmol/L Normal 3.7-5.1 [facility] Comment on above: Order Comment: Speci men Type: BLOOD SPECIMENOrdering Facility: [facility] Address: [address] [place] [address] Performed By: #### 1 9123-9, 99459-9, 2776-04 ####[facility] LABCLIA [id number] [place] [address] [place] Protein [Mass/Vol] 6.0 g/dL Low 6.3-8.0 [facility] Comment on above: Order Comment: Speci men Type: BLOOD SPECIMENOrdering Facility: [facility] Address: [address] [place], [place] [address] Performed By: #### 1 9123-9, 96941-6, 2776-04 ####[facility] LABCLIA [id number] [place] [address] [place] Sodium [Moles/Vol] 136 mmol/L Normal 136-144 [facility] Comment on above: Order Comment: Speci men Type: BLOOD SPECIMENOrdering Facility: [facility] Address: [address] [place] [address] Performed By: #### 1 9123-9, 68590-6, 2776- ####[facility] LABCLIA [id number] [address] [address] [place] Urea nitrogen [Mass/Vol] 7 mg/dL Low 9-24 [facility] Comment on above: Order Comment: Speci men Type: BLOOD SPECIMENOrdering Facility: [facility] Address: [address] [place] [address] Performed By: #### 1 9123-9, 24671-1, 2777-1 ####[facility] LABCLIA [id number] [address] Magnesium [facility]con 01-20 Magnesium [Mass/Vol] 2.2 mg/dL Normal 1.7-2.3 [facility] Comment on above: Order Comment: Speci men Type: BLOOD SPECIMENOrdering Facility: [facility] Address: [address] [place] [address] Performed By: #### 1 9123-9, 64392-5, 2777-1 ####[facility] LABCLIA [id number] [address] OF [facility] Phosphate SerPl-mCncon 01-20 Phosphate [Mass/Vol] 3.0 mg/dL Normal 2.7-4.8 [facility] Comment on above: Order Comment: Speci men Type: BLOOD SPECIMENOrdering Facility: [facility] Address: [address] [place] [address] Performed By: #### 1 9123-9, 17974-7, 2777-1 ####[facility] LABCLIA [id number] [address] [place] ANES POSTPROC EVALon 022 ANES POSTPROC EVAL HNO ID: [id number] Author: Lisa Perla DO Service: ? Author Type: Anesthesiologist Type: Anesthesia Postprocedure Evaluation Filed: 01/19/2022 9:47 AM Note Text: POST ANESTHESIA EVALUATION NOTE : 1980 Procedure Summary Date: 01/19/22 Room / Location: Gastroenterology Anesthesia Start: 843 Anesthesia Stop: 933 Procedure: EGD DIAGNOSTIC Diagnosis: Scheduled Providers: Alysa Asencio MD; Lisa Perla DO; Chapo Albright APRN.OPTICAL STORE MANAGER Responsible Provider: Lisa Perla DO Anesthesia Type: MAC ASA Status: 3 Anesthesia Type: MAC Last Vitals Vitals Value Taken Time BP 121/71 01/19/22 0940 Temp 36.8 ?C (98.2 ?F) 01/19/22934 Pulse 68 01/19/2244 Resp 16 01/19/22934 SpO2 96 % 01/19/22943 Vitals shown include unvalidated device data. Post Anesthesia Patient Status Patient Evaluation: PACU. PACU/ICU Patient Condition: stable. Anticipated Disposition: inpatient floor planned admission. Neurological Status: aware and responsive. Pulmonary Status: breathing comfortably on supplemental oxygen Airway Control: returned to baseline unsupported. Cardiovascular Status: stable. Pain Management: clinically adequate Postoperative Hydration: acceptable. Intraoperative Events: no significant anesthesia events Post Operative Nausea/Vomiting Status: no significant post operative nausea or vomiting Anesthetic Observations: Recommendation: continue current plan of care. Anesthesia Observations No Documentation SIGNATURE: Lisa Perla DO PATIENT NAME: Sabina Espinoza DATE: January 19, 2022 TIME: 9:46 AM CSN: [id number] Normal [facility] ANES PRE-OPon 01-19-2022 ANES PRE-OP HNO ID: [id number] Author: Lisa Perla DO Service: ? Author Type: Anesthesiologist Type: Anesthesia Preprocedure Evaluation Filed: 01/19/2022 7:36 AM Note Text: ANESTHESIOLOGY DAY OF SURGERY NOTE : 1980 Procedure Information Date/Time: 01/19/22829 Scheduled providers: Alysa Asencio MD; Lisa Perla DO; Chapo Albright APRN.OPTICAL STORE MANAGER Procedure: EGD DIAGNOSTIC Location: Gastroenterology Estimated body mass index is 27.98 kg/m? as calculated from the following: Height as of this encounter: 177.8 cm (5' 10 ). Weight as of this encounter: 88.5 kg (195 lb). Most recent hematocrit and potassium results: Hematocrit 44.5 01/19/2022 Hematocrit (POCT) 22 10/15/2021 Potassium 3.9 01/19/2022 Potassium (POCT) 3.9 10/15/2021 Relevant Problems CARDIO (+) HTN (hypertension) GI (+) GERD (gastroesophageal reflux disease) I - PHYSICAL EVALUATION AIRWAY Patient intubated: No. Tracheostomy tube not present Mallampati: II. TM distance: >3 FB. Neck ROM: full ROM without neurological symptoms. Mouth opening: adequate. Short neck: no. Thick neck: no DENTAL Dental findings: teeth intact. Additional exam findings: no II - ANESTHESIA PLAN ASA Score: 3 Anesthetic Plan: MAC The patient is not a current smoker. NPO Status: adequate Monitoring plan: standard ASA. Postoperative analgesic plan: multimodal analgesia. Informed Consent Anesthetic risks, benefits, alternatives, personnel and consent discussed: yes. Patient / Responsible Republican agrees to proceed: yes Patient / Surrogate agrees to blood products: Yes DNR status not reviewed with patient and/or family prior to surgery. Significant changes in the patient condition since the History and Physical, not otherwise documented in primary service progress note: no. Potential Anesthesia issues that may suggest increased risk of complications or contraindication to planned procedure: none. Vitals Value Taken Time BP 134/81 01/19/22717 Pulse 79 01/19/22717 Resp 16 01/19/22717 Temp 36.5 ?C (97.7 ?F) 01/19/22717 SpO2 96 % 01/19/22717 Facility-Administere d Medications as of 01/19/2022 Medication Dose Route Frequency - NaCl 0.9% iv flush bag 20 mL INTRAVENOUS PRN - [COMPLETED] NaCl 0.9% 1,000 mL iv bolus 1,000 mL INTRAVENOUS ONCE - [COMPLETED] oxyCODONE 5 mg oral liquid (ROXICODONE) 5 mg ORAL ONCE - [COMPLETED] acetaminophen 650 mg CUP (TYLENOL) 650 mg ORAL ONCE - [COMPLETED] aluminum-magnesium hydroxide-simethicon e 200-200-20 mg/5 mL 30 mL (MAALOX,MYLANTA,MAG- [place] PLUS) 30 mL ORAL ONCE And - [COMPLETED] lidocaine viscous 2 % 15 mL (XYLOCAINE) 15 mL ORAL ONCE - sucralfate 1 g tab(s) (CARAFATE) 1 g ORAL AC and HS - pregabalin 150 mg cap(s) (LYRICA) 150 mg ORAL TID - methocarbamol 500 mg tab(s) (ROBAXIN) 500 mg ORAL TID - pantoprazole DR 40 mg tab(s) (PROTONIX) 40 mg ORAL BID AC (0600/1600) - DULoxetine 20 mg cap(s) (CYMBALTA) 20 mg ORAL BID - sodium chloride 0.9 % (flush) 3-5 mL (BD POSIFLUSH) 3-5 mL INTRAVENOUS q 12 H - lactated ringers iv infusion 60 mL/hr INTRAVENOUS CONTINUOUS - adult multivitamin 10 mL, folic acid 1 mg in NaCl 0.9% 1,000 mL INTRAVENOUS ONCE - [COMPLETED] magnesium sulfate 2 g in sterile water 50 ml 2 g INTRAVENOUS ONCE - thiamine 100 mg tab(s) (VITAMIN B1) 100 mg ORAL/FEEDING TUBE TID - acetaminophen 650 mg tab(s) (TYLENOL) 650 mg ORAL q 6 H PRN Or - acetaminophen 650 mg CUP (TYLENOL) 650 mg ORAL q 6 H PRN - oxyCODONE IR 5-10 mg tab(s) (ROXICODONE) 5-10 mg ORAL q 6 H PRN - ondansetron (PF) 4 mg injection (ZOFRAN) 4 mg INTRAVENOUS q 6 H PRN - metoclopramide HCl 5 mg injection (REGLAN) 5 mg INTRAVENOUS q 6 H PRN - enoxaparin 40 mg injection (LOVENOX) 40 mg SUBCUTANEOUS q 24 HR - [COMPLETED] oxyCODONE 5 mg oral liquid (ROXICODONE) 5 mg ORAL ONCE - zolpidem 10 mg tab(s) (AMBIEN) 10 mg ORAL AT BEDTIME PRN Outpatient Medications as of 01/19/2022 Medication Sig - zolpidem (AMBIEN) 10 mg Take 10 mg by mouth at bedtime as needed. - sucralfate (CARAFATE) 1 gram tablet Take 1 tablet by mouth four times daily. Please crush and mix with 10 ml of water to make slurry - tamsulosin (FLOMAX) 0.4 mg Take 1 capsule by mouth daily at bedtime. - methocarbamol (ROBAXIN) 500 mg tablet Take 1 tablet by mouth three times daily. - enoxaparin (LOVENOX) 40 mg/0.4 mL Inject 0.4 mL subcutaneously q 24 HR. - therapeutic multivitamin-mineral s (THERA-M PLUS) 9 mg iron-400 mcg tablet Take 1 tablet by mouth every morning. - gbjbhbk-wmuavbmhq-gp tamin D3 500 mg-5 mcg (200 unit) per tablet Take 1 tablet by mouth. - dicyclomine (BENTYL) 20 mg tablet Take by mouth twice daily. 2 tabs 2 times a day - DULoxetine (CYMBALTA) 30 mg capsule twice daily. - pantoprazole DR (PROTONIX) 40 mg tablet once daily. In the AM - pregabalin (LYRICA) 150 mg capsule Take 150 mg by mouth three times daily. I have interviewed and examined the patient. I have reviewed the medical record and/or the (more content not included)... Normal [facility] CBC panel Auto (Bld)on 01-19 Erythrocyte distribution width (RBC) [Ratio] 16.1 % High 11.5-15.0 [facility] Comment on above: Order Comment: Speci men Type: BLOOD SPECIMENOrdering Facility: [facility] Address: [address] [place] [address] Performed By: #### 5 8410-2 ####[facility] [id number] [place] [address] [place] Hematocrit (Bld) [Volume fraction] 44.5 % Normal 39.0-51.0 [facility] Comment on above: Order Comment: Lit castano Type: BLOOD SPECIMENOrdering Facility: [facility] Address: [address] [place] [address] Performed By: #### 5 8410-2 ####[facility] LABIA [id number] [place] [address] [place] Hemoglobin (Bld) [Mass/Vol] 13.4 g/dL Normal 13.0-17.0 [facility] Comment on above: Order Comment: Radhai men Type: BLOOD SPECIMENOrdering Facility: [facility] Address: [address] [place] [address] Performed By: #### 5 8410-2 ####[facility] LABIA [id number] [place] [address] [place] MCH (RBC) [Entitic mass] 23.3 pg Low 26.0-34.0 [facility] Comment on above: Order Comment: Speci men Type: BLOOD SPECIMENOrdering Facility: [facility] Address: [address] [place], [place] [address] Performed By: #### 5 8410-2 ####[facility] LABCLIA [id number] [place] [address] [place] MCHC (RBC) [Mass/Vol] 30.1 g/dL Low 30.5-36.0 [facility] Comment on above: Order Comment: Speci men Type: BLOOD SPECIMENOrdering Facility: [facility] Address: [address] [place] [address] Performed By: #### 5 8410-2 ####[facility] LABIA [id number] [place] [address] [place] MCV (RBC) [Entitic vol] 77.4 fL Low 80.0-100.0 [facility] Comment on above: Order Comment: Speci men Type: BLOOD SPECIMENOrdering Facility: [facility] Address: [address] [place], [place] [address] Performed By: #### 5 8410-2 ####[facility] LABIA [id number] [place] [address] [place] Nucleated RBC (Bld) [#/Vol] 10*3/uL Normal <0.01 [facility] Comment on above: Order Comment: Speci men Type: BLOOD SPECIMENOrdering Facility: [facility] Address: [address] [place], [place] [address] Performed By: #### 5 8410-2 ####[facility] LABIA [id number] [place] [address] [place] Platelet mean volume (Bld) [Entitic vol] 10.6 fL Normal 9.0-12.7 [facility] Comment on above: Order Comment: Speci men Type: BLOOD SPECIMENOrdering Facility: [facility] Address: [address] [place] [address] Performed By: #### 5 8410-2 ####[facility] LABIA [id number] [address] Platelets (Bld) [#/Vol] 325 10*3/uL Normal 150-400 [facility] Comment on above: Order Comment: Speci men Type: BLOOD SPECIMENOrdering Facility: [facility] Address: [address] [place] [address] Performed By: #### 5 8410-2 ####[facility] LABIA [id number] [address] RBC (Bld) [#/Vol] 5.75 10*6/uL Normal 4.20-6.00 [facility] Comment on above: Order Comment: Speci men Type: BLOOD SPECIMENOrdering Facility: [facility] Address: [address] [place] [address] Performed By: #### 5 8410-2 ####[facility] LABIA [id number] [address] WBC (Bld) [#/Vol] 4.96 10*3/uL Normal 3.70-11.00 [facility] Comment on above: Order Comment: Speci men Type: BLOOD SPECIMENOrdering Facility: [facility] Address: [address] [place] [address] Performed By: #### 5 8410-2 ####[facility] [id number] [address] [facility] CONSULTon 01-19-2022 CONSULT HNO ID: [id number] Author: Angelica Haines PA-C Service: Pain Management Author Type: Physician Bail Agent Type: Consults Filed: 01/20/2022 11:49 AM Note Text: CONSULT: CHRONIC PAIN MANAGEMENT SERVICE PATIENT NAME: Sabina MACN: [id number] DATE of SERVICE: January 19, 2022 TIME of SERVICE: 8:26 PM REASON FOR CONSULT: Optimization of acute on chronic abdominal pain in s/o complex surgical abdominal history REQUESTING PROVIDER: Kellie Pratt MD PCP: Salvatore Camargo MD, MD ASSESSMENT: Mr. Sabina Espinoza is a 41 yo M from [place], [place] w/ a PMHx of chronic abdominal pain associated w/ complex surgical history including RNYGB (2009) c/b bleeding, and early takeback, SBO (2019) s/p XL x 2 further c/b GJ stricture, and poor oral intake requiring multiple dilations, and stenting and again s/p XL, adhesiolysis, and open revision of GJ anastomosis() who was re-admitted to [facility] on 01/18/2022 for further evaluation and management of worsening of his chronic abdominal pain associated w/ vomiting and feeling food stuck . 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 PLAN: 1. Per PDMP report in [facility], Mr. Espinoza has not been prescribed chronic opioid therapy (COT), however, he has been prescribed Lyrica 150 mg # 90 tabs x 30 days per Salvatore Camargo in [place], [place] since at least 09/14/2020 and last dispensed on 12/28/2021 (was previously prescribed gabapentin up to 800 mg # 90 tabs x 30 days up till 08/20/2020). Please refer to the PDMP tab in [facility] for full detailed description of previous 24 months. 2. Currently, Mr. Espinoza is ordered the following medications for pain: - acetaminophen 650 mg PO q6h PRN mild pain (AST: 17, ALT: 15) - Robaxin 500 mg PO TID - Cymbalta 20 mg PO BID - Lyrica 150 mg PO TID - oxycodone IR 5-10 mg PO q6h PRN moderate pain (two 5 mg tabs given 10/05, two 10 mg tab given 10/0) 3. Since w/ no hepatic impairment or if not otherwise contraindicated, may consider ordering acetaminophen 1,000 mg PO LIQUID q6h scheduled x 5-7 days for amelioration of acute on chronic nociceptive pain complaints. If ordering for a longer period, would then monitor LFTs to avoid hepatic injury. 4. And, while patient is being worked up, instead of oral skeletal muscle relaxant, could instead order intravenous SMR such as Norflex 30 mg IV q6h PRN pain associated w/ muscle spasms/abdominal cramping. 5. If wanting to continue w/ orals only, could consider changing order of oral SMR to Robaxin 500-750 mg PO q6h PRN moderate (500 mg) to severe (750 mg) pain associated w/ muscle spasms/abdominal cramping. 6. Since w/ normal LFTs and if w/ no h/o bleeding diatheses or not otherwise contraindicated, may consider increasing current Cymbalta dose to 30 mg PO BID for possible improvement of Mr. Espinoza's chronic MSK and neuropathic pain complaints. 7. If after 1-3 days with the above changes to medication and if pain continues to be poorly controlled, and since w/ normal renal function, could consider further up-titration of Lyrica for optimization of Mr. Espinoza's chronic neuropathic abdominal pain complaints. Please see below for a sample upward titration schedule (holding titration if w/ excessive somnolence, dizziness, peripheral edema or any other notable and unwanted side effects): - Today: Lyrica 150 mg PO QAM + QPM and Lyrica 200 mg PO QHS x 3 days - Then: Lyrica 150 mg PO QAM and Lyrica 200 mg PO QPM + QHS x 3 days - Then: Lyrica 200 mg PO TID 8. Would also change order of oxycodone to oxycodone IR 5- 10 mg PO LIQUID q6h PRN moderate (5 mg) to severe (10 mg) pain. 9. Or, if Mr. Espinoza is not tolerating orals, may instead consider transitioning to equianalgesic form of intravenous opioid such as Dilaudid 0.4-0.8 mg IV q6h PRN moderate (0.4 mg) to severe (0.8 mg) pain. 10. Please also ensure that all LOFTER depressant medications are spaced apart by at least 3-4 hours to prevent excessive sedation, hypotension, respiratory depression/arrest (ie: Robaxin/Norflex, Lyrica, oxycodone/IV Dilaudid, etc). 11. While inpatient, could also consider consultation to Healing Services/Bail Agent Services for amelioration of Mr. Espinoza's acute on chronic pain complaints as this type of therapy would provide distraction away from current pain complaints and may allow for a break in the psychological aspect of pain. 12. Also, for the same reasons as above, may consider consultation w/ Art and/or Music Therapy. Nursing should feel free to order this service for their patients should they feel this type of service would benefit their patients while in-hospital. 13. And, as painful process improves w/ time, treatment of underlying cause and/or the above multimodal analgesic approach, would begin tapering Mr. Espinoza's opio (more content not included)... Normal [facility] CONSULT HNO ID: [id number] Author: Nate Staley MD Service: Plastic Surgery Author Type: Resident Type: Consults Filed: 01/19/2022 3:26 PM Note Text: PLASTIC SURGERY CONSULTATION SERVICE DATE: 01/19/2022 SERVICE TIME: 2:22 PM Reason for Consultation: cSCC Requesting Physician: Alysa Asencio MD Subjective HPI: Mr. Espinoza is a 41 year old male with hx of RNYGB in 2009 with complicated post-operative course. PRS is consulted for cSCC on his abdomen. Patient first noted skin lesion in his lower abdomen in Mar 2020 which slowly grown. He had this skin lesion excised in May 2021. He is unclear what pathology was at that time. Skin lesion recurred shortly after and it was re-excised in September 2021. Lesion at that time measured about 2x2cm. Pathology at that time showed moderately differentiated SCC. He is now re-admitted for abdominal pain, unable to tolerate PO intake. Patient has noted immediate recurrence of skin lesion. PAST MEDICAL HISTORY Diagnosis Date History of transfusion HTN (hypertension) 10/07/2021 PAST SURGICAL HISTORY Procedure Laterality Date EGD PAST SURGICAL HISTORY OF 2010 gastric bypass PAST SURGICAL HISTORY OF abdominal surgeries PAST SURGICAL HISTORY OF Right knee surgery PAST SURGICAL HISTORY OF rhinoplasty and revision REMOVAL GALLBLADDER FAMILY HISTORY Problem Relation Age of Onset No Known Problems Mother No Known Problems Father Social History Tobacco Use Smoking status: Never Smokeless tobacco: Never Substance Use Topics Alcohol use: Never Drug use: Never sucralfate (CARAFATE) 1 gram tablet, Take 1 tablet by mouth four times daily. Please crush and mix with 10 ml of water to make slurry, Disp: 120 tablet, Rfl: 0 therapeutic multivitamin-mineral s (THERA-M PLUS) 9 mg iron-400 mcg tablet, Take 1 tablet by mouth every morning., Disp: , Rfl: DULoxetine (CYMBALTA) 30 mg capsule, Take 30 mg by mouth twice daily., Disp: , Rfl: pantoprazole DR (PROTONIX) 40 mg tablet, Take 40 mg by mouth once daily., Disp: , Rfl: pregabalin (LYRICA) 150 mg capsule, Take 150 mg by mouth three times daily., Disp: , Rfl: zolpidem (AMBIEN) 10 mg, Take 10 mg by mouth at bedtime as needed., Disp: , Rfl: Current Facility-Administere d Medications Medication Dose Route Frequency NaCl 0.9% iv flush bag 20 mL INTRAVENOUS PRN pregabalin 150 mg cap(s) (LYRICA) 150 mg ORAL TID methocarbamol 500 mg tab(s) (ROBAXIN) 500 mg ORAL TID pantoprazole DR 40 mg tab(s) (PROTONIX) 40 mg ORAL BID AC (0600/1600) DULoxetine 20 mg cap(s) (CYMBALTA) 20 mg ORAL BID sodium chloride 0.9 % (flush) 3-5 mL (BD POSIFLUSH) 3-5 mL INTRAVENOUS q 12 H lactated ringers iv infusion 60 mL/hr INTRAVENOUS CONTINUOUS adult multivitamin 10 mL, folic acid 1 mg in NaCl 0.9% 1,000 mL INTRAVENOUS ONCE thiamine 100 mg tab(s) (VITAMIN B1) 100 mg ORAL/FEEDING TUBE TID acetaminophen 650 mg tab(s) (TYLENOL) 650 mg ORAL q 6 H PRN Or acetaminophen 650 mg CUP (TYLENOL) 650 mg ORAL q 6 H PRN oxyCODONE IR 5-10 mg tab(s) (ROXICODONE) 5-10 mg ORAL q 6 H PRN ondansetron (PF) 4 mg injection (ZOFRAN) 4 mg INTRAVENOUS q 6 H PRN metoclopramide HCl 5 mg injection (REGLAN) 5 mg INTRAVENOUS q 6 H PRN enoxaparin 40 mg injection (LOVENOX) 40 mg SUBCUTANEOUS q 24 HR zolpidem 10 mg tab(s) (AMBIEN) 10 mg ORAL AT BEDTIME PRN sucralfate 1 g tab(s) (CARAFATE) 1 g ORAL QID Allergies As of Date: 01/18/2022 Allergen Noted Reaction PROCHLORPERAZINE 02/18/2014 Mental Status Change VALSARTAN 02/18/2014 Intolerance Fully Assessed 01/18/2022 Objective BP 118/80 Pulse 77 Temp (Src) 98.4 (Oral) Resp 17 Ht 5' 10 (1.78m) Wt 195 lb (88.5kg) SpO2 95% BMI 27.98 kg/(m2). O2 Therapy: Room Air General: No acute distress Pulm: Normal work of breathing on room air Abdomen: Multiple well healed scars including ex-lap incision. 0.5cmx0.25cm skin lesion over inferior aspect of ex-lap incision with granulomatous growth, in same spot as previous skin lesion DATA: Imaging: Laboratory: CBC Recent Labs 01/19/22 0607 01/18/22 1132 10/24/21 0406 WBC 4.96 6.82 7.31 HB 13.4 15.5 11.0* HCT 44.5 50.0 35.9* PLT 325 414* 485* BMP, Mg, Phos Recent Labs 01/19/22 0607 01/18/22 1132 NA 138 138 K 3.9 4.5 CHLOR 104 103 CO2 24 26 BUN 10 11 CREAT 0.56* 0.67* GLUC 82 95 CA 8.8 9.5 MG 2.4* 2.2 P 2.9 -- 10/13/2021 Surgical Pathology FINAL DIAGNOSIS A. Soft tissue, abdominal wall, excision: - Moderately differentiated squamous cell carcinoma. B. Stomach, partial gastrectomy, biopsy: - No significant pathologic abnormality. C. Small intestine, resection: - Segment of small intestine with serosal adhesions. Diagnosis Comment Dr. Maile Gomez (Dermatopathology) has reviewed part A and agrees with the diagnosis. Gross Description A. SOFT TISSUE. Received in formalin is a specimen labeled sof (more content not included)... Normal [facility] metabolic 2000 panelon 01-19-2022 Albumin [Mass/Vol] 3.7 g/dL Low 3.9-4.9 [facility] Comment on above: Order Comment: Speci men Type: BLOOD SPECIMENOrdering Facility: [facility] Address: [address] [place], [place] [address] Performed By: #### 2 4323-8, 2776-04, ####[facility] LABCLIA [id number] [place] [address] [place] ALP [Catalytic activity/Vol] 95 U/L Normal 38-113 [facility] Comment on above: Order Comment: Speci men Type: BLOOD SPECIMENOrdering Facility: [facility] Address: [address] [place], [place] [address] Performed By: #### 2 4323-8, 2776-04, ####[facility] LABCLIA [id number] [address] [place] ALT [Catalytic activity/Vol] 15 U/L Normal 10-54 [facility] Comment on above: Order Comment: Speci men Type: BLOOD SPECIMENOrdering Facility: [facility] Address: [address] [place], [place] [address] Performed By: #### 2 4323-8, 2776-04, ####[facility] LABCLIA [id number] [address] [place] Anion gap [Moles/Vol] 10 mmol/L Normal 9-18 [facility] Comment on above: Order Comment: Speci men Type: BLOOD SPECIMENOrdering Facility: [facility] Address: [address] [place] [address] Performed By: #### 2 4323-8, 27710-14, ####[facility] LABIA [id number] [place] [address] [place] AST [Catalytic activity/Vol] 17 U/L Normal 14-40 [facility] Comment on above: Order Comment: Speci men Type: BLOOD SPECIMENOrdering Facility: [facility] Address: [address] [place], [place] [address] Performed By: #### 2 4323-8, 2777-1, ####[facility] LABCLIA [id number] [place] [address] [place] Bilirubin [Mass/Vol] 0.5 mg/dL Normal 0.2-1.3 [facility] Comment on above: Order Comment: Speci men Type: BLOOD SPECIMENOrdering Facility: [facility] Address: [address] [place], [place] [address] Performed By: #### 2 4323-8, 277-1, ####[facility] LABIA [id number] [place] [address] [place] Calcium [Mass/Vol] 8.8 mg/dL Normal 8.5-10.2 [facility] Comment on above: Order Comment: Speci men Type: BLOOD SPECIMENOrdering Facility: [facility] Address: [address] [place], [place] [address] Performed By: #### 2 4323-8, 27710-14, ####[facility] LABIA [id number] [place] [address] [place] Chloride [Moles/Vol] 104 mmol/L Normal 97-105 [facility] Comment on above: Order Comment: Speci men Type: BLOOD SPECIMENOrdering Facility: [facility] Address: [address] [place] [address] Performed By: #### 2 4323-8, 2771, ####[facility] LABCLIA [id number] [place] [id number] [place] CO2 [Moles/Vol] 24 mmol/L Normal 22-30 [facility] Comment on above: Order Comment: Speci men Type: BLOOD SPECIMENOrdering Facility: [facility] Address: [address] [place], [place] [address] Performed By: #### 2 4323-8, 2777-, ####[facility] LABIA [id number] [address] [address] [place] Creatinine [Mass/Vol] 0.56 mg/dL Low 0.73-1.22 [facility] Comment on above: Order Comment: Specsohail castano Type: BLOOD SPECIMENOrdering Facility: [facility] Address: [address] [place], [place] [address] Performed By: #### 2 4323-8, 27710-14, ####[facility] LABIA [id number] [address] [place] ESTIMATED GLOMERULAR FILTRATION RATE 125 mL/min/1.73m??? Normal >=60 [facility] Comment on above: Order Comment: Lit castano Type: BLOOD SPECIMENOrdering Facility: [facility] Address: [address] [place] [address] Result Comment: Philly mated Glomerular Filtration Rate (eGFR) is calculated using the 2020 CKD-EPI creatinine equation. This equation utilizes serum creatinine, sex, and age as parameters. The creatinine assay has traceable calibration to isotope dilution-mass spectrometry. Refer to KDIGO guidelines for clinical interpretation. In patients with unstable renal function, e.g. those with acute kidney injury, the eGFR may not accurately reflect actual GFR. Performed By: #### 2 4323-8, 2776-04, ####[facility] LABIA [id number] [place] [id number] [place] Glucose [Mass/Vol] 82 mg/dL Normal 74-99 [facility] Comment on above: Order Comment: Lit castano Type: BLOOD SPECIMENOrdering Facility: [facility] Address: [address] [place] [address] Result Comment: The [place] Diabetes [employer] (ADA) provides guidance for cutoff values for fasting glucose and random glucose. The ADA defines fasting as no caloric intake for at least 8 hours. Fasting plasma glucose results between 100 to 125 mg/dL indicate increased risk for diabetes (prediabetes). Fasting plasma glucose results greater than or equal to 126 mg/dL meet the criteria for diagnosis of diabetes. In the absence of unequivocal hyperglycemia, results should be confirmed by repeat testing. In a patient with classic symptoms of hyperglycemia or hyperglycemic crisis, random plasma glucose results greater than or equal to 200 mg/dL meet the criteria for diagnosis of diabetes. Reference: Standards of Medical Care in Diabetes 2016, [place] [employer]. Diabetes Care. 2016.39(Suppl 1). Performed By: #### 2 4323-8, 2776-04, ####[facility] LABIA [id number] [place] [address] [place] Potassium [Moles/Vol] 3.9 mmol/L Normal 3.7-5.1 [facility] Comment on above: Order Comment: Speci men Type: BLOOD SPECIMENOrdering Facility: [facility] Address: [address] [place], [place] [address] Performed By: #### 2 4323-8, 2776-04, ####[facility] [id number] [place] [address] [place] Protein [Mass/Vol] 6.3 g/dL Normal 6.3-8.0 [facility] Comment on above: Order Comment: Radhai eyad Type: BLOOD SPECIMENOrdering Facility: [facility] Address: [address] [place], [place] [address] Performed By: #### 2 4323-8, 2776-04, ####[facility] LABIA [id number] [place] [id number] [place] Sodium [Moles/Vol] 138 mmol/L Normal 136-144 [facility] Comment on above: Order Comment: Speci men Type: BLOOD SPECIMENOrdering Facility: [facility] Address: [address] [place], [place] [address] Performed By: #### 2 4323-8, 2776-04, ####[facility] LABIA [id number] [place] [address] [place] Urea nitrogen [Mass/Vol] 10 mg/dL Normal 9-24 [facility] Comment on above: Order Comment: Speci men Type: BLOOD SPECIMENOrdering Facility: [facility] Address: [address] [place] [address] Performed By: #### 2 4323-8, 2777-1, 27879-5 ####[facility] LABIA [id number] [place] [id number] [place] Magnesium SerPl-mCncon 01-19 Magnesium [Mass/Vol] 2.4 mg/dL High 1.7-2.3 [facility] Comment on above: Order Comment: Speci men Type: BLOOD SPECIMENOrdering Facility: [facility] Address: [address] [place] [address] Performed By: #### 2 4323-8, 2777-1, 04993-4 ####[facility] LABIA [id number] [place] [address] [place] NURSING PROGon 01-19-2022 NURSING PROG HNO ID: [id number] Author: Kierra Main RN Service: Nursing Author Type: Registered Nurse Type: Nursing Progress Note Filed: 01/19/2022 7:19 AM Note Text: PRE OP LEARNING ASSESSMENT PROCEDURE/SURGERY: GI PROCEDURES: EGD READINESS TO LEARN COGNITIVE ABILITY: Alert and oriented MOTIVATION TO LEARN: Eager FAMILY SUPPORT: Unable to assess - Family not present PATIENT LEARNS BEST BY: Individual Instruction FACTORS AFFECTING LEARNING: None PHYSICAL LIMITATIONS AFFECTING LEARNING: None Electronically Signed By: Kierra Main RN In Department: HOSP MAIN G090 Normal [facility] NURSING PROG HNO ID: [id number] Author: Emilie Pitts RN Service: ? Author Type: Registered Nurse Type: Nursing Progress Note Filed: 01/18/2022 11:35 PM Note Text: Transfer Note: Patient transferred into room/unit G90-15 in stable condition. Actions taken: Patient belongings with patient Normal [facility] 01-19-2022 NUTRITION HNO ID: [id number] Author: Michael Good RD Service: Nutrition Therapy Author Type: Registered Dietitian Type: Nutrition Filed: 01/19/2022 12:17 PM Note Text: NUTRITION THERAPY INITIAL ASSESSMENT SERVICE DATE: 01/19/2022 SERVICE TIME: 11:30am Nutrition Assessment: Recommended Malnutrition Diagnosis: Severe Protein-Calorie Malnutrition In the context of: Chronic Illness or Injury Based on: Unintentional Weight Loss;Insufficient Energy Intake Nutrition Diagnosis: Problem: Suboptimal protein/energy intake Related to: Altered GI function As evidenced by: Anorexia;Depletion of fat/muscle stores;Medical condition;Patient/fa doni self-report;Weight loss;Pain Estimated kilocalorie needs: 2532-0031 Calorie Calculation Method: 25-30 kcals/kg Estimated protein needs (grams): 103-129 Grams protein determined by: 1.2 - 1.5 g/kg Care Plan: Continue current diet Supplements: Ensure Clear Refer to: Speech/Language Vitamins and Minerals: Multivitamin with minerals Medications: Stool softener;Laxative Monitor and Evaluation: Monitor fluid/electrolyte balance;Meet greater than 75% of estimated needs;Monitor bowel function;Monitor labs, I/Os, vital signs, weight Discharge Recommendations: Diet;Oral Supplements Diet: TBD Oral Supplements: high calorie, high protein oral nutrition supplements when PO intake is meeting <75% of estimated energy needs HPI: Per Ritesh Pratt note on 01/18: Mr. Espinoza is a 41 year old male with PMHx of RNYGB in 2009, c/b bleeding, and early takeback, SBO in 2019 S/P XL x2. 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 On 10/03/2021, he underwent XL, adhesiolysis, and open revision of GJ anastomosis with Dr Asencio. He now presents complaining of chronic abdominal pain, feeling food stuck and vomiting. His symptoms are similar to prior to surgery, and he reports that they did not improve. His symptoms mainly started after he tried advancing his diet from full liquids to soft pureed food. Both liquids and solid food get stuck, usually in the upper chest. This feeling of food getting stuck is not consistent, and he can sometimes tolerate food, but mostly it gets stuck. His pain is present even without eating, and is mainly in the upper abdomen radiating all over. He vomits 2-3 times every day, sometimes several hours after he last ate. Passing gas and motion. His symptoms worsen significantly in the last month, he visited the ED twice on December [address] done showed small intra-abdominal hematoma near the gastric remnant. He was set to be transferred to [facility] however he was positive for COVID which he isolated himself for 1 week before presenting to the hospital. Of note his symptoms did not worsen during his COVID infection from which he was asymptomatic. Intake History: Nutrition Intake Prior to Admission: Less than 75% estimated energy needs greater than or equal to 1 month Diet Orders (From admission, onward) Start Ordered 01/19/22944 DIET LIQUID START NOW Question: Liquid Diet Answer: CLEAR LIQUID 01/19/22941 Anthropometrics: Height: 177.8 cm (5' 10 ) Weight: 88.5 kg (195 lb) Dosing Weight: 86 kg (189 lb 9.5 oz) Body mass index is 27.98 kg/m?. Weight change percentage over time: 16% weight loss X 3 months Physical Exam: Subcutaneous fat loss: Mild Muscle loss: Mild Potential micronutrient deficiency: No deficiency identified Edema/Ascites: No edema GI Symptoms: Swallowing problems;Anorexia;Ab dominal pain;Constipation Functional Status: Regressed Potential Signs of Inflammation: Chronic condition;Hypoalbumi nemia MNT Billing: $ Initial Assessment: 1-15 minutes SIGNATURE: Michael Good RD PATIENT NAME: Sabina Espinoza DATE: January 19, 2022 TIME: 12:16 PM Normal [facility] Phosphate SerPl-mCncon 01-19 Phosphate [Mass/Vol] 2.9 mg/dL Normal 2.7-4.8 [facility] Comment on above: Order Comment: Speci men Type: BLOOD SPECIMENOrdering Facility: [facility] Address: [address] [place] [phone] Performed By: #### 2 4323-8, 2777-1, 78004-5 ####[facility] [id number] SURGICAL PATHOLOGYon 022 CASE REPORT Normal [facility] Comment on above: Order Comment: Speci men Type: TISSUE SPECIMEN [facility] Address: [address] [place] [address] Result Comment: Surg ical Pathology Report Case: [id number] Authorizing Provider: Alysa Asencio MD Collected: 01/19/2022 03:12 PM Ordering Location: [place] [address] Received: 01/19/2022 03:53 PM Pathologist: Macho Andre MD, PhD Specimen: SKIN PUNCH BIOPSY Performed By: #### S #### [facility] CLIA [id number] [address] [place] [address] CLINICAL HISTORY 40yoM with 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 SCC vs granuloma Normal [facility] Comment on above: Order Comment: Speci men Type: TISSUE SPECIMEN [facility] Address: [address] [place] [address] Performed By: #### S #### [facility] CLIA [id number] [address] [place] [address] DIAGNOSIS COMMENT No malignancy identified. Clinical correlation is recommended. Normal [facility] Comment on above: Order Comment: Speci men Type: TISSUE SPECIMEN [facility] Address: [address] [place] [address] Performed By: #### S #### [facility] CLIA [id number] [address] [place] [address] FINAL DIAGNOSIS Normal [facility] Comment on above: Order Comment: Speci men Type: TISSUE SPECIMEN [facility] Address: [address] [place] [address] Result Comment: A. S kin, punch biopsy: - Eccrine poroma, irritated and inflamed (see comment). - Scar compatible with previous procedure. AF/SUPRIYA/yevgeniy 01/20/2022 Performed By: #### S #### [facility] CLIA [id number] [address] [place] [address] [place] FINAL PERFORMING LAB Normal [facility] Comment on above: Order Comment: Speci men Type: TISSUE SPECIMEN [facility] Address: [address] [place] [address] Result Comment: Diag nostic interpretation performed at [facility], [address] [place] [address] CLIA# [id number] Client Sales And Service Officer: Manjeet Frederick M.D. Performed By: #### S #### [facility] CLIA [id number] [address] [place] [address] GROSS DESCRIPTION Normal [facility] Comment on above: Order Comment: Speci men Type: TISSUE SPECIMEN [facility] Address: [address] [place] [address] Result Comment: A. S KIN PUNCH BIOPSY Received in formalin are multiple cylindrical segments of skin and subcutaneous tissue aggregating to 1.3 x 0.3 x 0.6 cm. The specimens are not sectioned. Totally submitted in one cassette. JTS January 19, 2022 7:42 PM Gross examination performed at [facility], [address] [place] [address] Performed By: #### S #### [facility] CLIA [id number] [address] [place] [address] [place] Urinalysis complete panel (U )on 01-19-2022 Bilirubin Ql (U) Negative Normal Negative [facility] Comment on above: Order Comment: Speci men Type: URINE SPECIMENOrdering Facility: [facility] Address: [address] [place] [address] Performed By: #### 2 4356-8 ####[facility] [id number] [place] [address] [place] Clarity (Unsp spec) Clear Normal Clear [facility] Comment on above: Order Comment: Speci men Type: URINE SPECIMENOrdering Facility: [facility] Address: [address] [place], [place] [address] Performed By: #### 2 4356-8 ####[facility]IA [id number] [place] [address] [place] Color (U) Yellow Normal Yellow [facility] Comment on above: Order Comment: Speci men Type: URINE SPECIMENOrdering Facility: [facility] Address: [address] [place], [place] [address] Performed By: #### 2 4356-8 ####[facility]IA [id number] [place] [address] [place] Glucose Test strip (U) [Mass/Vol] Negative Normal Negative [facility] Comment on above: Order Comment: Speci men Type: URINE SPECIMENOrdering Facility: [facility] Address: [address] [place], [place] [address] Performed By: #### 2 4356-8 ####[facility] [id number] [place] [address] [place] Hemoglobin Ql (U) Negative Normal Negative [facility] Comment on above: Order Comment: Speci men Type: URINE SPECIMENOrdering Facility: [facility] Address: [address] [place] [address] Performed By: #### 2 4356-8 ####[facility]CLIA [id number] [place] [address] [place] Hyaline casts (Urine sed) [#/Area] 4-10 /LPF Abnormal 0 /LPF [facility] Comment on above: Order Comment: Speci men Type: URINE SPECIMENOrdering Facility: [facility] Address: [address] [place], [place] [address] Performed By: #### 2 4356-8 ####[facility] [id number] [place] [address] [place] Ketones Ql (U) Negative Normal Negative [facility] Comment on above: Order Comment: Speci men Type: URINE SPECIMENOrdering Facility: [facility] Address: [address] [place], [place] [address] Performed By: #### 2 4356-8 ####[facility]IA [id number] [place] [address] [place] Leukocyte esterase Test strip Ql (U) Negative Normal Negative [facility] Comment on above: Order Comment: Speci men Type: URINE SPECIMENOrdering Facility: [facility] Address: [address] [place] [address] Performed By: #### 2 4356-8 ####[facility]IA [id number] [place] [address] [place] Nitrite Ql (U) Negative Normal Negative [facility] Comment on above: Order Comment: Speci men Type: URINE SPECIMENOrdering Facility: [facility] Address: [address] [place], [place] [address] Performed By: #### 2 4356-8 ####[facility]IA [id number] [place] [address] [place] pH (U) 6.0 [pH] Normal 5.0-8.0 [facility] Comment on above: Order Comment: Speci men Type: URINE SPECIMENOrdering Facility: [facility] Address: [address] [place], [place] [address] Performed By: #### 2 4356-8 ####[facility]IA [id number] [place] [address] [place] Protein (U) [Mass/Vol] Trace Abnormal Negative [facility] Comment on above: Order Comment: Speci men Type: URINE SPECIMENOrdering Facility: [facility] Address: [address] [place], [place] [address] Performed By: #### 2 4356-8 ####[facility] [id number] [place] [address] [place] RBC LM.HPF (Urine sed) [#/Area] 0-3 /HPF Normal 0-3 /HPF [facility] Comment on above: Order Comment: Speci men Type: URINE SPECIMENOrdering Facility: [facility] Address: [address] [place] [address] Performed By: #### 2 4356-8 ####[facility] [id number] [place] [address] [place] Specific gravity (U) [Rel density] 1.032 High 1.005-1.030 [facility] Comment on above: Order Comment: Speci men Type: URINE SPECIMENOrdering Facility: [facility] Address: [address] [place], [place] [address] Performed By: #### 2 4356-8 ####[facility] [id number] [place] [address] [place] [facility] Urobilinogen Ql (U) 1+ Abnormal Negative [facility] Comment on above: Order Comment: Speci men Type: URINE SPECIMENOrdering Facility: [facility] Address: [address] [place], [place] [address] Performed By: #### 2 4356-8 ####[facility] LABIA [id number] [place] [address] [place] WBC LM.HPF (Urine sed) [#/Area] 0-5 /HPF Normal 0-5 /HPF [facility] Comment on above: Order Comment: Speci men Type: URINE SPECIMENOrdering Facility: [facility] Address: [address] [place], [place] [address] Performed By: #### 2 4356-8 ####[facility]IA [id number] [place] [address] [place] CBC W Auto Differential pane l (Bld)on 01-18-2022 Basophils (Bld) [#/Vol] 0.08 10*3/uL Normal <0.11 [facility] Comment on above: Order Comment: Speci men Type: BLOOD SPECIMENOrdering Facility: [facility] Address: [address] [place] [address] Performed By: #### 5 7021-8 ####[facility]CLIA [id number] [place] [address] [place] Basophils/100 WBC (Bld) 1.2 % Normal [facility] Comment on above: Order Comment: Speci men Type: BLOOD SPECIMENOrdering Facility: [facility] Address: [address] [place] [address] Performed By: #### 5 7021-8 ####[facility] [id number] [place] [address] [place] Differential cell count method Nom (Bld) Auto Normal [facility] Comment on above: Order Comment: Speci men Type: BLOOD SPECIMENOrdering Facility: [facility] Address: [address] [place] [address] Performed By: #### 5 7021-8 ####[facility]IA [id number] [place] [address] [place] Eosinophils (Bld) [#/Vol] 0.11 10*3/uL Normal <0.46 [facility] Comment on above: Order Comment: Speci men Type: BLOOD SPECIMENOrdering Facility: [facility] Address: [address] [place] [address] Performed By: #### 5 7021-8 ####[facility] [id number] [place] [address] [place] Eosinophils/100 WBC (Bld) 1.6 % Normal [facility] Comment on above: Order Comment: Speci men Type: BLOOD SPECIMENOrdering Facility: [facility] Address: [address] [place], [place] [address] Performed By: #### 5 7021-8 ####[facility]IA [id number] [place] [address] [place] Erythrocyte distribution width (RBC) [Ratio] 17.2 % High 11.5-15.0 [facility] Comment on above: Order Comment: Speci men Type: BLOOD SPECIMENOrdering Facility: [facility] Address: [address] [place], [place] [address] Performed By: #### 5 7021-8 ####[facility] [id number] [place] [address] [place] Hematocrit (Bld) [Volume fraction] 50.0 % Normal 39.0-51.0 [facility] Comment on above: Order Comment: Speci men Type: BLOOD SPECIMENOrdering Facility: [facility] Address: [address] [place], [place] [address] Performed By: #### 5 7021-8 ####[facility]IA [id number] [place] [address] [place] Hemoglobin (Bld) [Mass/Vol] 15.5 g/dL Normal 13.0-17.0 [facility] Comment on above: Order Comment: Speci men Type: BLOOD SPECIMENOrdering Facility: [facility] Address: [address] [place], [place] [address] Performed By: #### 5 7021-8 ####[facility] [id number] [place] [address] [place] IMMATURE GRAN % 0.3 % Normal [facility] Comment on above: Order Comment: Speci men Type: BLOOD SPECIMENOrdering Facility: [facility] Address: [address] [place], [place] [address] Performed By: #### 5 7021-8 ####[facility] [id number] [place] [address] [place] IMMATURE GRAN ABS <0.03 Normal <0.10 [facility] Comment on above: Order Comment: Speci men Type: BLOOD SPECIMENOrdering Facility: [facility] Address: [address] [place], [place] [address] Performed By: #### 5 7021-8 ####[facility]IA [id number] [place] [address] [place] Lymphocytes (Bld) [#/Vol] 2.04 10*3/uL Normal 1.00-4.00 [facility] Comment on above: Order Comment: Speci men Type: BLOOD SPECIMENOrdering Facility: [facility] Address: [address] [place], [place] [address] Performed By: #### 5 7021-8 ####[facility]CLIA [id number] [address] [place] [facility] Lymphocytes/100 WBC (Bld) 29.9 % Normal [facility] Comment on above: Order Comment: Speci men Type: BLOOD SPECIMENOrdering Facility: [facility] Address: [address] [place], [place] [address] Performed By: #### 5 7021-8 ####[facility]IA [id number] [place] [address] [place] MCH (RBC) [Entitic mass] 24.1 pg Low 26.0-34.0 [facility] Comment on above: Order Comment: Speci men Type: BLOOD SPECIMENOrdering Facility: [facility] Address: [address] [place], [place] [address] Performed By: #### 5 7021-8 ####[facility]IA [id number] [address] OF [facility] MCHC (RBC) [Mass/Vol] 31.0 g/dL Normal 30.5-36.0 [facility] Comment on above: Order Comment: Speci men Type: BLOOD SPECIMENOrdering Facility: [facility] Address: [address] [place] [address] Performed By: #### 5 7021-8 ####[facility] [id number] [place] [address] [place] MCV (RBC) [Entitic vol] 77.6 fL Low 80.0-100.0 [facility] Comment on above: Order Comment: Speci men Type: BLOOD SPECIMENOrdering Facility: [facility] Address: [address] [place] [address] Performed By: #### 5 7021-8 ####[facility]IA [id number] [place] [address] [place] Monocytes (Bld) [#/Vol] 0.49 10*3/uL Normal <0.87 [facility] Comment on above: Order Comment: Speci men Type: BLOOD SPECIMENOrdering Facility: [facility] Address: [address] [place], [place] [address] Performed By: #### 5 7021-8 ####[facility]IA [id number] [address] [place] Monocytes/100 WBC (Bld) 7.2 % Normal [facility] Comment on above: Order Comment: Speci men Type: BLOOD SPECIMENOrdering Facility: [facility] Address: [address] [place], [place] [address] Performed By: #### 5 7021-8 ####[facility]IA [id number] [place] [address] [place] Neutrophils (Bld) [#/Vol] 4.08 10*3/uL Normal 1.45-7.50 [facility] Comment on above: Order Comment: Speci men Type: BLOOD SPECIMENOrdering Facility: [facility] Address: [address] [place] [address] Performed By: #### 5 7021-8 ####[facility]IA [id number] [address] STATES OF [facility] Neutrophils/100 WBC (Bld) 59.8 % Normal [facility] Comment on above: Order Comment: Speci men Type: BLOOD SPECIMENOrdering Facility: [facility] Address: [address] [place] [address] Performed By: #### 5 7021-8 ####[facility]IA [id number] [place] [address] [place] Nucleated RBC (Bld) [#/Vol] 10*3/uL Normal <0.01 [facility] Comment on above: Order Comment: Speci men Type: BLOOD SPECIMENOrdering Facility: [facility] Address: [address] [place], [place] [address] Performed By: #### 5 7021-8 ####[facility]IA [id number] [place] [address] [place] Nucleated RBC/100 WBC (Bld) [Ratio] 0.0 /100 WBC Normal [facility] Comment on above: Order Comment: Speci men Type: BLOOD SPECIMENOrdering Facility: [facility] Address: [address] [place] [address] Performed By: #### 5 7021-8 ####[facility]IA [id number] [place] [address] [place] Platelet mean volume (Bld) [Entitic vol] 10.0 fL Normal 9.0-12.7 [facility] Comment on above: Order Comment: Speci men Type: BLOOD SPECIMENOrdering Facility: [facility] Address: [address] [place] [address] Performed By: #### 5 7021-8 ####[facility]IA [id number] [place] [address] [place] Platelets (Bld) [#/Vol] 414 10*3/uL High 150-400 [facility] Comment on above: Order Comment: Speci men Type: BLOOD SPECIMENOrdering Facility: [facility] Address: [address] [place] [address] Performed By: #### 5 7021-8 ####[facility] [id number] [place] [address] [place] RBC (Bld) [#/Vol] 6.44 10*6/uL High 4.20-6.00 [facility] Comment on above: Order Comment: Speci men Type: BLOOD SPECIMENOrdering Facility: [facility] Address: [address] [place] [address] Performed By: #### 5 7021-8 ####[facility]IA [id number] [place] [address] [place] WBC (Bld) [#/Vol] 6.82 10*3/uL Normal 3.70-11.00 [facility] Comment on above: Order Comment: Speci men Type: BLOOD SPECIMENOrdering Facility: [facility] Address: [address] [place] [address] Performed By: #### 5 7021-8 ####[facility] LABCLIA [id number] [place] [address] [place] [facility] [place] Comprehensive metabolic 2000 panelon 01-18-2022 Albumin [Mass/Vol] 4.6 g/dL Normal 3.9-4.9 [facility] Comment on above: Order Comment: Speci men Type: BLOOD SPECIMENOrdering Facility: [facility] Address: [address] [place] [address] Performed By: #### 1 9123-9, 3040-3, 98032-7 ####[facility] LABCLIA [id number] [place] [address] [place] ALP [Catalytic activity/Vol] 108 U/L Normal 38-113 [facility] Comment on above: Order Comment: Speci men Type: BLOOD SPECIMENOrdering Facility: [facility] Address: [address] [place] [address] Performed By: #### 1 9123-9, 3039-3, 99848-5 ####[facility] LABCLIA [id number] [place] [address] [place] ALT [Catalytic activity/Vol] 19 U/L Normal 10-54 [facility] Comment on above: Order Comment: Speci men Type: BLOOD SPECIMENOrdering Facility: [facility] Address: [address] [place] [address] Performed By: #### 1 9123-9, 3039-3, 87656-0 ####[facility] LABIA [id number] [place] [address] [place] Anion gap [Moles/Vol] 9 mmol/L Normal 9-18 [facility] Comment on above: Order Comment: Speci men Type: BLOOD SPECIMENOrdering Facility: [facility] Address: [address] [place] [address] Performed By: #### 1 9123-9, 3039-3, 66379-2 ####[facility] LABCLIA [id number] [address] [place] AST [Catalytic activity/Vol] 19 U/L Normal 14-40 [facility] Comment on above: Order Comment: Speci men Type: BLOOD SPECIMENOrdering Facility: [facility] Address: [address] [place] [address] Performed By: #### 1 9123-9, 3040-3, 76377-0 ####[facility] LABCLIA [id number] [place] [address] [place] Bilirubin [Mass/Vol] 0.4 mg/dL Normal 0.2-1.3 [facility] [place] [facility] Comment on above: Order Comment: Speci men Type: BLOOD SPECIMENOrdering Facility: [facility] Address: [address] [place], [place] [address] Performed By: #### 1 9123-9, 3040-3, 23931-2 ####[facility] LABCLIA [id number] [place] [address] [place] Calcium [Mass/Vol] 9.5 mg/dL Normal 8.5-10.2 [facility] Comment on above: Order Comment: Speci men Type: BLOOD SPECIMENOrdering Facility: [facility] Address: [address] [place] [address] Performed By: #### 1 9123-9, 3039-3, 67200-8 ####[facility] LABCLIA [id number] [place] [address] [place] Chloride [Moles/Vol] 103 mmol/L Normal 97-105 [facility] Comment on above: Order Comment: Speci men Type: BLOOD SPECIMENOrdering Facility: [facility] Address: [address] [place], [place] [address] Performed By: #### 1 9123-9, 304-3, 95141-4 ####[facility] LABCLIA [id number] [place] [address] [place] CO2 [Moles/Vol] 26 mmol/L Normal 22-30 [facility] Comment on above: Order Comment: Speci men Type: BLOOD SPECIMENOrdering Facility: [facility] Address: [address] [place] [address] Performed By: #### 1 9123-9, 3040-3, 73754-5 ####[facility] LABCLIA [id number] [place] [id number] [place] Creatinine [Mass/Vol] 0.67 mg/dL Low 0.73-1.22 [facility] Comment on above: Order Comment: Lit castano Type: BLOOD SPECIMENOrdering Facility: [facility] Address: [address] [place], [place] [address] Performed By: #### 1 9123-9, 3040-3, 87931-8 ####[facility] LABCLIA [id number] [address] OF [facility] ESTIMATED GLOMERULAR FILTRATION RATE 119 mL/min/1.73m??? Normal >=60 [facility] Comment on above: Order Comment: Lit castano Type: BLOOD SPECIMENOrdering Facility: [facility] Address: [address] [place], [place] [address] Result Comment: Philly mated Glomerular Filtration Rate (eGFR) is calculated using the 2020 CKD-EPI creatinine equation. This equation utilizes serum creatinine, sex, and age as parameters. The creatinine assay has traceable calibration to isotope dilution-mass spectrometry. Refer to KDIGO guidelines for clinical interpretation. In patients with unstable renal function, e.g. those with acute kidney injury, the eGFR may not accurately reflect actual GFR. Performed By: #### 1 9123-9, 0-3, ####[facility] LABCLIA [id number] [address] [place] Glucose [Mass/Vol] 95 mg/dL Normal 74-99 [facility] Comment on above: Order Comment: Lit castano Type: BLOOD SPECIMENOrdering Facility: [facility] Address: [address] [phone] Result Comment: The [place] Diabetes [employer] (ADA) provides guidance for cutoff values for fasting glucose and random glucose. The ADA defines fasting as no caloric intake for at least 8 hours. Fasting plasma glucose results between 100 to 125 mg/dL indicate increased risk for diabetes (prediabetes). Fasting plasma glucose results greater than or equal to 126 mg/dL meet the criteria for diagnosis of diabetes. In the absence of unequivocal hyperglycemia, results should be confirmed by repeat testing. In a patient with classic symptoms of hyperglycemia or hyperglycemic crisis, random plasma glucose results greater than or equal to 200 mg/dL meet the criteria for diagnosis of diabetes. Reference: Standards of Medical Care in Diabetes 2016, [place] [employer]. Diabetes Care. 2016.39(Suppl 1). Performed By: #### 1 9123-9, 3039-3, 73170-9 ####[facility] LABCLIA [id number] [place] [address] [place] Potassium [Moles/Vol] 4.5 mmol/L Normal 3.7-5.1 [facility] Comment on above: Order Comment: Speci men Type: BLOOD SPECIMENOrdering Facility: [facility] Address: [address] [place] [address] Performed By: #### 1 9123-9, 3, ####[facility] LABCLIA [id number] [place] [address] [place] Protein [Mass/Vol] 7.5 g/dL Normal 6.3-8.0 [facility] Comment on above: Order Comment: Speci men Type: BLOOD SPECIMENOrdering Facility: [facility] Address: [address] [place] [address] Performed By: #### 1 91239, 3, ####[facility] LABCLIA [id number] [place] [address] [place] Sodium [Moles/Vol] 138 mmol/L Normal 136-144 [facility] Comment on above: Order Comment: Speci men Type: BLOOD SPECIMENOrdering Facility: [facility] Address: [address] [place] [address] Performed By: #### 1 9123-9, 3, 38876-7 ####[facility] LABCLIA [id number] [address] [address] [place] Urea nitrogen [Mass/Vol] 11 mg/dL Normal 9-24 [facility] Comment on above: Order Comment: Speci men Type: BLOOD SPECIMENOrdering Facility: [facility] Address: [address] [place] [address] [place] [phone] Performed By: #### 1 9123-9, 3040-3, 59410-4 ####[facility] LABCLIA [id number] [facility] [place] [address] [place] ED NOTEon 01-18-2022 ED NOTE HNO ID: [id number] Author: Zee Madrid RN Service: Emergency Medicine Author Type: Registered Nurse Type: ED Notes Filed: 01/18/2022 8:32 PM Note Text: Report given to MIGUELITO Wiley in CDU. Normal [facility] ED PROV NOTEon 01-18-2022 ED PROV NOTE HNO ID: [id number] Author: Sugey Fuentes MD Service: Emergency Medicine Author Type: Physician Type: ED Provider Notes Filed: 01/19/2022 10:04 AM Note Text: ED Provider Note Patient Name: Sabina Espinoza : 1980 SERVICE DATE: 01/18/22 History Patient presents with: Abdominal Pain: Pt w/ PMH of GI strict bypass surgery and multiple other abdominal surgeries comes to ED w/ increased ABD pain n/v, denies diarrhea or dark/ bloody stool, pt states he is unable to tolerate foods. Post op complications Mr. 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 Asencio, now presents emergency department with a chief complaint of abdominal pain, nausea/vomiting, ability to tolerate oral intake. Patient states that he has had abdominal pain, nausea, vomiting and decreased oral intake since his surgery, and has had previous episodes of this prior to his surgery in September. Patient states that in the last 8 days (01/10) he has had worsening abdominal pain primarily in the epigastric region, however he describes his pain as diffuse. Patient states this pain is sharp/cramping at times. Patient states his pain is constant and rates it 8 out of 10 pain. Patient states that he has been given multiple analgesics to help alleviate his pain. Patient states that he did use pain medications he feels like he has difficulty tolerating, sometimes he even vomits the pills back up. Patient states that he does well with clear liquids, however this time his diet is advanced past this, he has recurrence of his nausea/vomiting and abdominal pain. Patient states that he is having bowel movements every 2 to 3 days. Patient denies any bright red blood per rectum, or melena. Patient states his bowels alternate from loose to formed with no clear pattern. Patient states that he has home nurse take care of his midline wound from his last surgery, denies any purulent drainage erythema or induration from this incision. Patient states he was admitted to the hospital last week, and was accepted to transfer to [facility], however they required a 1 week wait for his insurance/bed availability, thus he drove to the emergency department today for admission at the recommendation of the surgical team. Patient denies fever/chills, chest pain/shortness of breath, cough, runny nose, sore throat, dysuria, urinary frequency, back pain/flank pain, lower extremity edema/calf tenderness. No known sick contacts or exposure to COVID-19. No recent injuries or illnesses. PAST MEDICAL HISTORY Diagnosis Date History of transfusion HTN (hypertension) 10/07/2021 PAST SURGICAL HISTORY Procedure Laterality Date EGD PAST SURGICAL HISTORY OF 2009 gastric bypass PAST SURGICAL HISTORY OF abdominal surgeries PAST SURGICAL HISTORY OF Right knee surgery PAST SURGICAL HISTORY OF rhinoplasty and revision REMOVAL GALLBLADDER FAMILY HISTORY Problem Relation Age of Onset No Known Problems Mother No Known Problems Father Social History Tobacco Use Smoking status: Never Smokeless tobacco: Never Substance and Sexual Activity Alcohol use: Never Drug use: Never Sexual activity: Not on file ALLERGIES Allergen Reactions Prochlorperazine Mental Status Change Valsartan Intolerance Review of Systems Constitutional: Negative for activity change, appetite change, chills, fatigue, fever and unexpected weight change. HENT: Negative for congestion, rhinorrhea and sneezing. Eyes: Negative for pain and visual disturbance. Respiratory: Negative for cough, chest tightness, shortness of breath and wheezing. Cardiovascular: Negative for chest pain, palpitations and leg swelling. Gastrointestinal: Positive for abdominal pain, nausea and vomiting. Negative for abdominal distention, blood in stool, constipation and diarrhea. Genitourinary: Negative for difficulty urinating, dysuria, frequency and urgency. Musculoskeletal: Negative for gait problem, neck pain and neck stiffness. Skin: Positive for wound. Negative for color change and rash. Neurological: Negative for dizziness, weakness, light-headedness and headaches. Psychiatric/Behavior al: Negative for agitation, behavioral problems and confusion. Physical Exam Vitals [01/18/22 0902] BP Pulse Temp Temp src Resp SpO2 Weight Height (!) 142/111 (!) 124 36.7 ?C (98.1 ?F) Oral 18 98 % 88.5 kg (195 lb) 1.778 m (5' 10 ) Physical Exam Vitals and nursing note reviewed. Constitutional: General: He is not in acute distress. Appeara (more content not included)... Normal [facility] HISTORY PHYSICALon HISTORY PHYSICAL HNO ID: [id number] Author: Kellie Pratt MD Service: General Surgery Author Type: Resident Type: HANDP Filed: 01/18/2022 5:15 PM Note Text: Attestation signed by Alysa Asencio MD at 01/23/2022 11:06 AM Attending Note I evaluated the patient and personally participated in the chapin components. I agree with the resident's findings and plan as documented and have discussed the case and management of the patient's care with the resident. Signature: Alysa Asencio MD Date: 01/23/2022 Time: 11:06 AM GENERAL SURGERY HISTORY AND PHYSICAL NOTE Sabina Espinoza [id number] Subjective CHIEF COMPLAINT: abdominal pain, intolerance to oral intake HISTORY OF PRESENT ILLNESS: Mr. Espinoza is a 41 year old male with PMHx of RNYGB in 2009, c/b bleeding, and early takeback, SBO in 2019 S/P XL x2. 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 On 10/03/2021, he underwent XL, adhesiolysis, and open revision of GJ anastomosis with Dr Asencio. He now presents complaining of chronic abdominal pain, feeling food stuck and vomiting. His symptoms are similar to prior to surgery, and he reports that they did not improve. His symptoms mainly started after he tried advancing his diet from full liquids to soft pureed food. Both liquids and solid food get stuck, usually in the upper chest. This feeling of food getting stuck is not consistent, and he can sometimes tolerate food, but mostly it gets stuck. His pain is present even without eating, and is mainly in the upper abdomen radiating all over. He vomits 2-3 times every day, sometimes several hours after he last ate. Passing gas and motion. His symptoms worsen significantly in the last month, he visited the ED twice on December [address] done showed small intra-abdominal hematoma near the gastric remnant. He was set to be transferred to [facility] however he was positive for COVID which he isolated himself for 1 week before presenting to the hospital. Of note his symptoms did not worsen during his COVID infection from which he was asymptomatic. 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 PSH: cholecystectomy 2010 also c/b some bleeding postop PAST MEDICAL HISTORY Diagnosis Date History of transfusion HTN (hypertension) 10/07/2021 PAST SURGICAL HISTORY Procedure Laterality Date EGD PAST SURGICAL HISTORY OF 2010 gastric bypass PAST SURGICAL HISTORY OF abdominal surgeries PAST SURGICAL HISTORY OF Right knee surgery PAST SURGICAL HISTORY OF rhinoplasty and revision REMOVAL GALLBLADDER FAMILY HISTORY Problem Relation Age of Onset No Known Problems Mother No Known Problems Father Social History Tobacco Use Smoking status: Never Smokeless tobacco: Never Substance Use Topics Alcohol use: Never Drug use: Never (Not in a hospital admission) Current Facility-Administere d Medications Medication Dose Route Frequency NaCl 0.9% iv flush bag 20 mL INTRAVENOUS PRN ALLERGIES Allergen Reactions Prochlorperazine Mental Status Change Valsartan Intolerance COMPLETE REVIEW OF SYSTEMS: PAIN ASSESSMENT: HISTORY OF CHRONIC PAIN OR CURRENTLY BEING TREATED FOR A CHRONIC PAIN CONDITION: Yes, GENERAL: Weight loss - reports weight loss of 35 lbs in the past 3 months RESPIRATORY: Negative for cough, hemoptysis, wheezing, COPD, dyspnea or shortness of breath CARDIOVASCULAR: Negative for chest pain, leg swelling, hypertension, CHF or palpitations GI: Positive for reflux, dysphagia Objective PHYSICAL EXAM: BP 139/103[rechecked[ Pulse 115[rechecked[ Temp (Src) 98.1 (Oral) Resp 18 Ht 5' 10 (1.78m) Wt 195 lb (88.5kg) SpO2 98% BMI 27.98 kg/(m2). O2 Therapy: Room Air Physical Exam Performed General: alert and oriented, not in acute distress CV: regular rate and rhythm Pulm: good respiratory effort; CTA b/l Abd: soft, non-distended, tender in the upper abdomen, no rebound/guarding, midline incision healed well, intact, no discharge, small granuloma visible at the lower end (as per patient has been growing in size since surgery) DATA: Diagnostic tests reviewed for today's visit: Most recent labs and imaging results. Most recent labs Results for orders placed or performed during the hospital encounter of 01/18/22 COMP METABOLIC PANEL Result Value Ref Range Protein, Total 7.5 6.3 - 8.0 g/dL Albumin 4.6 3.9 - 4.9 g/dL Calcium, Total 9.5 8.5 - 10.2 mg/dL Bilirubin, Total 0.4 0.2 - 1.3 mg/dL Alkaline Phosphatase 108 38 - 113 U/L AST 19 14 - 40 U/L ALT 19 10 - 54 U/L Glucose 95 74 - 99 mg/dL BUN 11 9 - 24 mg/dL Creatinine 0.67 (L) 0.73 - 1.22 mg/dL Sodium 138 136 - 144 mmol/L Potassium 4.5 3.7 - 5.1 mmol/L Chloride 103 97 - 105 mmol (more content not included)... Normal [facility] Lipase SerPl-cCncon 01-19-20 22 Lipase [Catalytic activity/Vol] 21 U/L Normal 16-61 [facility] Comment on above: Order Comment: Speci men Type: BLOOD SPECIMENOrdering Facility: [facility] Address: [address] Performed By: #### 1 9123-9, 3040-3, 40170-5 ####[facility] LABCLIA [id number] [address] [place] Magnesium SerPl-mCncon 01-18 Magnesium [Mass/Vol] 2.2 mg/dL Normal 1.7-2.3 [facility] Comment on above: Order Comment: Lti castano Type: BLOOD SPECIMENOrdering Facility: [facility] Address: [address] [facility] [address] Performed By: #### 1 9123-9, 3040-3, 76320-8 ####[facility] LABCLIA [id number] [address] [place] NURSING PROGon 01-18-2022 NURSING PROG HNO ID: [id number] Author: Guera Greenberg RN Service: Nursing Author Type: Registered Nurse Type: Nursing Progress Note Filed: 01/18/2022 4:50 PM Note Text: Summary: Q3 Procedures Orders received for EGD on Q3. Patient will be scheduled with MD Asencio on 01/19 per request. This was attempted to be discussed with primary RN, but was unable to get into contact via telephone. Please ensure that patient is NPO and stop all tube feeds after midnight the evening prior to the scheduled procedure. Please ensure patient has a working IV. Overnight labs will need to be resulted and WNL by 0600 on the morning of the procedure. Essential meds with small sips of water are ok for the day of procedure. Guera Greenberg RN 4:49 PM January 18, 2022 Normal [facility] PT panel Coag (PPP)on 2021 INR Coag (PPP) [Relative time] 1.0 {INR} Normal 0.9-1.3 [facility] Comment on above: Order Comment: Lit castano Type: BLOOD SPECIMENOrdering Facility: [facility] Address: [address] [phone] Result Comment: Clari min K Antagonist (VKA) Therapeutic Range: INR 2 to 3 (Target INR of 2.5) Note: For patients treated with VKA drugs, such as warfarin, the [place] [employer] 2012 Guideline recommends a therapeutic INR range of 2 to 3 (target INR of 2.5). This recommendation includes high-risk patients with antiphospholipid syndrome with previous arterial or venous thromboembolism, current-generation mechanical or bioprosthetic aortic heart valve replacement. Note: Patients with mechanical aortic valve replacement and additional risk factors for thromboembolic events (atrial fibrillation, previous thromboembolism, LV dysfunction, hypercoagulable conditions) or an older generation mechanical AVR (i.e., ball in-Cage) or any mechanical MVR should have a INR therapeutic range of 2.5 to 3.5 (target INR of 3). Rodríguez GH, et al. Chest 2012, 141:7S-47S Luly RA, et al. [facility] 2017, 70: 252-289 Performed By: #### 1 4979-9, 54477-3 ####[facility] LABCLIA [id number] [place] [address] [place] PT Coag (PPP) [Time] 10.4 s Normal 9.7-13.0 [facility] Comment on above: Order Comment: Lit castano Type: BLOOD SPECIMENOrdering Facility: [facility] Address: [address] [phone] Performed By: #### 1 4979-9, 76959-6 ####[facility] LABCLIA [id number] [place] [address] [place] SARS-CoV-2 RNA Resp Ql UMESH+p robeon 01-18-2022 SARS-CoV-2 (COVID-19) RNA UMESH+probe Ql (Resp) COVID 19 RESULT: SARS-CoV-2 (Agent of COVID-19) Not Detected by RT-PCR or equivalent method. This test has been authorized by FDA under an Emergency Use Authorization (EUA). Normal [facility] Comment on above: Performed By: #### 9 4500-6 ####[facility] LABIA [id number] [place] [address] [place] TYPE + SCREENon 01-18-2022 ABO O Normal [facility] Comment on above: Order Comment: Speci men Type: BLOOD SPECIMEN [facility] Address: [address] [place] [address] Performed By: #### T SCR #### [facility] CLIA [id number] [address] [place] [address] [place] HISTORICAL AB SCR STATUS Negative Normal [facility] Comment on above: Order Comment: Speci men Type: BLOOD SPECIMEN [facility] Address: [address] [place], [place] [address] Performed By: #### T SCR #### [facility] CLIA [id number] [address] [place] [address] [place] Rh Nom (Bld) Positive Normal [facility] Comment on above: Order Comment: Speci men Type: BLOOD SPECIMEN [facility] Address: [address] [place], [place] [address] Performed By: #### T SCR #### [facility] CLIA [id number] [address] [place] [address] [place] TYPE AND SCREEN EXPIRATION 01/21/2022 23:59 Normal [facility] Comment on above: Order Comment: Speci men Type: BLOOD SPECIMEN [facility] Address: [address] [place] [address] Performed By: #### T SCR #### CC [facility] BLOOD BANK CLIA [id number] [address] [place] [address] aPTT PPPon 01-18-2022 aPTT Coag (PPP) [Time] 29.6 s Normal 23.0-32.4 [facility] Comment on above: Order Comment: Speci men Type: BLOOD SPECIMENOrdering Facility: [facility] Address: [address] [place] [address] Performed By: #### 1 4979-9, 84316-3 ####[facility] LABCLIA [id number] [address] CNPNon 01-17-2022 CNPN Telephone (GENSMN) SABINA ESPINOZA ([id number]) 1980 M Date Time Provider Department 01/17/22 ALYSA ASENCIOFanny During your visit today, we recorded the following information about you: Coord KETAN Mcneil 01/17/2022 1:28 PM Signed I received a call from Chandu at [facility] stating Sabina was discharged from [facility] ER and is coming to the [facility] ER today at 9:00am to be admitted. Sabina is unable to keep from and liquid down and also has a hematoma in abdominal cavity. Chandu can be reached at [phone] Allergies As of Date: 01/17/2022 Noted Allergy Reaction PROCHLORPERAZINE 02/18/2014 1 - Mental Status Change VALSARTAN 02/18/2014 5 - Intolerance Date Reviewed: 10/19/2021 Reviewed by: Sharmin Arguello RN - Fully Assessed Reason for Visit: Patient Update [1234] Prescriptions as of 01/17/2022 - sucralfate (CARAFATE) 1 gram tablet Take 1 tablet by mouth four times daily. Please crush and mix with 10 ml of water to make slurry - vancomycin (VANCOCIN) 2 g in D5W 500 mL Inject 500 mL intravenously q 12 HR. - tamsulosin (FLOMAX) 0.4 mg Take 1 capsule by mouth daily at bedtime. - methocarbamol (ROBAXIN) 500 mg tablet Take 1 tablet by mouth three times daily. - enoxaparin (LOVENOX) 40 mg/0.4 mL Inject 0.4 mL subcutaneously q 24 HR. - therapeutic multivitamin-mineral s (THERA-M PLUS) 9 mg iron-400 mcg tablet Take 1 tablet by mouth every morning. - sdcmkdm-sanlpvjcs-yw tamin D3 500 mg-5 mcg (200 unit) per tablet Take 1 tablet by mouth. - amoxicillin-clavulan ic acid (AUGMENTIN) 875-125 mg per tablet Take 1 tablet by mouth twice daily. - cyanocobalamin 1,000 mcg/mL INJECT 1 ml INTRAMUSCULARLY EVERY 30 days - dicyclomine (BENTYL) 20 mg tablet Take by mouth twice daily. 2 tabs 2 times a day - DULoxetine (CYMBALTA) 30 mg capsule twice daily. - lisinopril (ZESTRIL, PRINIVIL) 20 mg tablet Take 20 mg by mouth twice daily. - pantoprazole DR (PROTONIX) 40 mg tablet once daily. In the AM - GAVILAX 17 gram/dose powder MIX 17 grams of powder (1 cap at marking) with 4-8 ounces of beverage AND drink BY MOUTH DAILY - potassium chloride ER (K-DUR, KLOR-CON) 20 mEq tablet Take 20 mEq by mouth twice daily. - pregabalin (LYRICA) 150 mg capsule Take 150 mg by mouth three times daily. - zolpidem (AMBIEN) 10 mg Take 10 mg by mouth at bedtime as needed. - pyridoxine, vitamin B6, (VITAMIN B6) 50 mg tablet Take 1 tablet by mouth once daily. 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] 10/13/2021 10/21/2021 Postoperative pain [G89.18] 10/15/2021 10/24/2021 Transaminitis [R74.01] 10/15/2021 10/21/2021 Respiratory insufficiency [R06.89] 10/15/2021 10/21/2021 DVT (deep venous thrombosis) (HCC) [I82.409] 10/15/2021 10/21/2021 Malnutrition of mild degree (HCC) [E44.1] 10/18/2021 10/21/2021 Encounter Status:Closed by RAMON MCNEIL II on 01/17/22 [facility] 01-11-2022 CNPN Telephone (GENBMI) SABINA ESPINOZA ([id number]) 1980 Date Time Provider Department 01/11/22 CARLOTTA CLEMONS During your visit today, we recorded the following information about you: Carlotta Clemons RN 01/11/2022 12:11 PM Signed [facility] TELEPHONE ENCOUNTER F/U after notified by team pt was admitted to local hospital. Tried to contact pt and spoke to customer contact specialist on file who confirmed pt was in hospital. Spoke to Charge nurse at [facility] in [place] pt c/o N/V Pt tolerated clears and adv to full liquid w/o vomiting No plans for d/c at this time. Waiting to be transferred to main campus.Pending bed transfer Fax given for Ct report and number for outside arrangement for electronic transfer of imaging given. 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 Please crush and mix with 10 ml of water to make slurry - vancomycin (VANCOCIN) 2 g in D5W 500 mL Inject 500 mL intravenously q 12 HR. - tamsulosin (FLOMAX) 0.4 mg Take 1 capsule by mouth daily at bedtime. - methocarbamol (ROBAXIN) 500 mg tablet Take 1 tablet by mouth three times daily. - enoxaparin (LOVENOX) 40 mg/0.4 mL Inject 0.4 mL subcutaneously q 24 HR. - therapeutic multivitamin-mineral s (THERA-M PLUS) 9 mg iron-400 mcg tablet Take 1 tablet by mouth every morning. - owbtgoz-hiletowqf-rr tamin D3 500 mg-5 mcg (200 unit) per tablet Take 1 tablet by mouth. - amoxicillin-clavulan ic acid (AUGMENTIN) 875-125 mg per tablet Take 1 tablet by mouth twice daily. - cyanocobalamin 1,000 mcg/mL INJECT 1 ml INTRAMUSCULARLY EVERY 30 days - dicyclomine (BENTYL) 20 mg tablet Take by mouth twice daily. 2 tabs 2 times a day - DULoxetine (CYMBALTA) 30 mg capsule twice daily. - lisinopril (ZESTRIL, PRINIVIL) 20 mg tablet Take 20 mg by mouth twice daily. - pantoprazole DR (PROTONIX) 40 mg tablet once daily. In the AM - GAVILAX 17 gram/dose powder MIX 17 grams of powder (1 cap at marking) with 4-8 ounces of beverage AND drink BY MOUTH DAILY - potassium chloride ER (K-DUR, KLOR-CON) 20 mEq tablet Take 20 mEq by mouth twice daily. - pregabalin (LYRICA) 150 mg capsule Take 150 mg by mouth three times daily. - zolpidem (AMBIEN) 10 mg Take 10 mg by mouth at bedtime as needed. - pyridoxine, vitamin B6, (VITAMIN B6) 50 mg tablet Take 1 tablet by mouth once daily. 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] 10/13/2021 10/21/2021 Postoperative pain [G89.18] 10/15/2021 10/24/2021 Transaminitis [R74.01] 10/15/2021 10/21/2021 Respiratory insufficiency [R06.89] 10/15/2021 10/21/2021 DVT (deep venous thrombosis) ([facility]) [I82.409] 10/15/2021 10/21/2021 Malnutrition of mild degree (HCC) [E44.1] 10/18/2021 10/21/2021 Encounter Status:Closed by CARLOTTA CLEMONS on 01/11/22 [facility] 01-03-2022 [facility] Tele[facility] (GENBMI) SABINA ESPINOZA ([id number]) 1980 M Date Time Provider Department 01/03/22 SABINA BEAN During your visit today, we recorded the following information about you: Sabina Bean PA-C 01/03/2022 11:13 AM Signed I contacted Chandu a call at [phone] regarding message that was left. She reports Sabina is unable to maintain hydration, nutrition intake due to dysphagia, vomiting. He requires 3 day notice for transport to come to [place]. I advised to have him go to local ED for evaluation, labs hydration and have him transferred to [facility] for on going evaluation, EGD. Carafate tablets called to pharmacy on file, advised to crush mix with 10 ml of water to make slurry. Advised for local hospital to call office to help arrange transport here to [facility]. I advised bed may be limited and may require wait. Sabina Bean PA-C Allergies As of Date: 01/03/2022 Noted Allergy Reaction PROCHLORPERAZINE 02/18/2014 1 - Mental Status Change VALSARTAN 02/18/2014 5 - Intolerance Date Reviewed: 10/19/2021 Reviewed by: Sharmin Arguello RN - Fully Assessed Reason for Visit: Returning Patient's Call [408] Primary Visit Diagnosis:Dysphagia, unspecified type [R13.10] Order(s):EGD BARIATRIC [GI4] Order #: [id number] FUTURE sucralfate (CARAFATE) 1 gram tabletTake 1 tablet by mouth four times daily. Please crush and mix with 10 ml of water to make slurryDisp: 120 tabletRfl: 0 Prescriptions as of 01/03/2022 - sucralfate (CARAFATE) 1 gram tablet Take 1 tablet by mouth four times daily. Please crush and mix with 10 ml of water to make slurry - vancomycin (VANCOCIN) 2 g in D5W 500 mL Inject 500 mL intravenously q 12 HR. - tamsulosin (FLOMAX) 0.4 mg Take 1 capsule by mouth daily at bedtime. - methocarbamol (ROBAXIN) 500 mg tablet Take 1 tablet by mouth three times daily. - enoxaparin (LOVENOX) 40 mg/0.4 mL Inject 0.4 mL subcutaneously q 24 HR. - therapeutic multivitamin-mineral s (THERA-M PLUS) 9 mg iron-400 mcg tablet Take 1 tablet by mouth every morning. - upoumqv-idooltvqm-lz tamin D3 500 mg-5 mcg (200 unit) per tablet Take 1 tablet by mouth. - amoxicillin-clavulan ic acid (AUGMENTIN) 875-125 mg per tablet Take 1 tablet by mouth twice daily. - cyanocobalamin 1,000 mcg/mL INJECT 1 ml INTRAMUSCULARLY EVERY 30 days - dicyclomine (BENTYL) 20 mg tablet Take by mouth twice daily. 2 tabs 2 times a day - DULoxetine (CYMBALTA) 30 mg capsule twice daily. - lisinopril (ZESTRIL, PRINIVIL) 20 mg tablet Take 20 mg by mouth twice daily. - pantoprazole DR (PROTONIX) 40 mg tablet once daily. In the AM - GAVILAX 17 gram/dose powder MIX 17 grams of powder (1 cap at marking) with 4-8 ounces of beverage AND drink BY MOUTH DAILY - potassium chloride ER (K-DUR, KLOR-CON) 20 mEq tablet Take 20 mEq by mouth twice daily. - pregabalin (LYRICA) 150 mg capsule Take 150 mg by mouth three times daily. - zolpidem (AMBIEN) 10 mg Take 10 mg by mouth at bedtime as needed. - pyridoxine, vitamin B6, (VITAMIN B6) 50 mg tablet Take 1 tablet by mouth once daily. 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 SUCRALFATE 1 GRAM TABLET 120 * 0 01/03/2022 02/02/2022 Route: ORAL Sig: Take 1 tablet by mouth four times daily. Please crush and mix with 10 ml of water to make slurry Medications Discontinued During This Encounter Prescriptions - sucralfate (CARAFATE) 100 mg/mL susp (Discontinued) Take 10 mL by mouth every 6 hours. Encounter Status:Closed by SABINA BEAN on 01/03/22 [facility] 01-02-2022 [place] Telephone (emazeN) SABINA ESPINOZA ([id number]) 1980 M Date Time Provider Department 01/02/22 ALYSA ASENCIO During your visit today, we recorded the following information about you: Coord II Rafael Leivaholly 01/02/2022 2:08 PM Signed Chandu from [facility] called - she wanted me to send this message to you. Sabina is having issues w/ swallowing, he hasn't had an appointment since his surgery and need to get before late Jan/Feb. Can you please give Chandu a call at [phone] Allergies As of Date: 01/02/2022 Noted Allergy Reaction PROCHLORPERAZINE 02/18/2014 1 - Mental Status Change VALSARTAN 02/18/2014 5 - Intolerance Date Reviewed: 10/19/2021 Reviewed by: Sharmin Arguello, MIGUELITO - Fully Assessed Reason for Visit: Patient Update [1234] Appointment [186] Prescriptions as of 01/02/2022 - vancomycin (VANCOCIN) 2 g in D5W 500 mL Inject 500 mL intravenously q 12 HR. - tamsulosin (FLOMAX) 0.4 mg Take 1 capsule by mouth daily at bedtime. - methocarbamol (ROBAXIN) 500 mg tablet Take 1 tablet by mouth three times daily. - enoxaparin (LOVENOX) 40 mg/0.4 mL Inject 0.4 mL subcutaneously q 24 HR. - therapeutic multivitamin-mineral s (THERA-M PLUS) 9 mg iron-400 mcg tablet Take 1 tablet by mouth every morning. - jfzdxws-flzrszmvq-rl tamin D3 500 mg-5 mcg (200 unit) per tablet Take 1 tablet by mouth. - amoxicillin-clavulan ic acid (AUGMENTIN) 875-125 mg per tablet Take 1 tablet by mouth twice daily. - cyanocobalamin 1,000 mcg/mL INJECT 1 ml INTRAMUSCULARLY EVERY 30 days - dicyclomine (BENTYL) 20 mg tablet Take by mouth twice daily. 2 tabs 2 times a day - DULoxetine (CYMBALTA) 30 mg capsule twice daily. - lisinopril (ZESTRIL, PRINIVIL) 20 mg tablet Take 20 mg by mouth twice daily. - pantoprazole DR (PROTONIX) 40 mg tablet once daily. In the AM - GAVILAX 17 gram/dose powder MIX 17 grams of powder (1 cap at marking) with 4-8 ounces of beverage AND drink BY MOUTH DAILY - potassium chloride ER (K-DUR, KLOR-CON) 20 mEq tablet Take 20 mEq by mouth twice daily. - pregabalin (LYRICA) 150 mg capsule Take 150 mg by mouth three times daily. - zolpidem (AMBIEN) 10 mg Take 10 mg by mouth at bedtime as needed. - pyridoxine, vitamin B6, (VITAMIN B6) 50 mg tablet Take 1 tablet by mouth once daily. 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] 10/13/2021 10/21/2021 Postoperative pain [G89.18] 10/15/2021 10/24/2021 Transaminitis [R74.01] 10/15/2021 10/21/2021 Respiratory insufficiency [R06.89] 10/15/2021 10/21/2021 DVT (deep venous thrombosis) ([facility]) [I82.409] 10/15/2021 10/21/2021 Malnutrition of mild degree (HCC) [E44.1] 10/18/2021 10/21/2021 Encounter Status:Closed by RAMON MCNEIL II on 01/02/22 [facility] C[facility] Tele[facility] (PCDAMN) SABINA ESPINOZA ([id number]) 1980 Date Time Provider Department 12/17/21 LEWIS TRONCOSO PCDAMN During your visit today, we recorded the following information about you: Lewis Troncoso MD 12/17/2021 11:24 PM Signed Patient called requesting pain medication. His last surgery was diagnostic laparoscopy, conversion to laparotomy, extensive lysis of adhesions of greater than 2.5 hours, partial gastrectomy and enterectomy, revision gastrojejunostomy, upper endoscopy, excision of hyperplastic tissue of the abdominal wall with Dr. Asencio on 10/13. He was discharged with oxycodone 5-10mg Q4 PRN (70ml of 5mg/5ml solution). He has not been seen in clinic since, but has had multiple visits to [facility] ED for pain for which he has been given pain meds. Per the patient, he had an appointment in Dr. Asencio's clinic this week, but missed it because he was in COVID quarantine. He has been referred to pain management, but missed his initial appointment last week (also due to COVID quarantine). I discussed with the patient that as he is more than 2 months out from his surgery, he would need to be evaluated in clinic to determine his needed for additional opioid pain medications. I advised him to reschedule his missed appointment with pain management. Patient was angry and abruptly hung up the phone. Allergies As of Date: 12/17/2021 Noted Allergy Reaction PROCHLORPERAZINE 02/18/2014 1 - Mental Status Change VALSARTAN 02/18/2014 5 - Intolerance Date Reviewed: 10/19/2021 Reviewed by: Sharmin Arguello RN - Fully Assessed Reason for Visit: Patient Question [1477] Returning Patient's Call [408] Prescriptions as of 12/17/2021 - vancomycin (VANCOCIN) 2 g in D5W 500 mL Inject 500 mL intravenously q 12 HR. - tamsulosin (FLOMAX) 0.4 mg Take 1 capsule by mouth daily at bedtime. - methocarbamol (ROBAXIN) 500 mg tablet Take 1 tablet by mouth three times daily. - enoxaparin (LOVENOX) 40 mg/0.4 mL Inject 0.4 mL subcutaneously q 24 HR. - therapeutic multivitamin-mineral s (THERA-M PLUS) 9 mg iron-400 mcg tablet Take 1 tablet by mouth every morning. - gqmsjow-zejlggtmn-cl tamin D3 500 mg-5 mcg (200 unit) per tablet Take 1 tablet by mouth. - amoxicillin-clavulan ic acid (AUGMENTIN) 875-125 mg per tablet Take 1 tablet by mouth twice daily. - cyanocobalamin 1,000 mcg/mL INJECT 1 ml INTRAMUSCULARLY EVERY 30 days - dicyclomine (BENTYL) 20 mg tablet Take by mouth twice daily. 2 tabs 2 times a day - DULoxetine (CYMBALTA) 30 mg capsule twice daily. - lisinopril (ZESTRIL, PRINIVIL) 20 mg tablet Take 20 mg by mouth twice daily. - pantoprazole DR (PROTONIX) 40 mg tablet once daily. In the AM - GAVILAX 17 gram/dose powder MIX 17 grams of powder (1 cap at marking) with 4-8 ounces of beverage AND drink BY MOUTH DAILY - potassium chloride ER (K-DUR, KLOR-CON) 20 mEq tablet Take 20 mEq by mouth twice daily. - pregabalin (LYRICA) 150 mg capsule Take 150 mg by mouth three times daily. - zolpidem (AMBIEN) 10 mg Take 10 mg by mouth at bedtime as needed. - pyridoxine, vitamin B6, (VITAMIN B6) 50 mg tablet Take 1 tablet by mouth once daily. 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] 10/13/2021 10/21/2021 Postoperative pain [G89.18] 10/15/2021 10/24/2021 Transaminitis [R74.01] 10/15/2021 10/21/2021 Respiratory insufficiency [R06.89] 10/15/2021 10/21/2021 DVT (deep venous thrombosis) ([facility]) [I82.409] 10/15/2021 10/21/2021 Malnutrition of mild degree (HCC) [E44.1] 10/18/2021 10/21/2021 Encounter Status:Closed by LEW[facility]O [facility] (emazeN) SBAINA ESPINOZA ([id number]) 1980 M Date Time Provider Department 12/16/21 ALYSA ASENCIO During your visit today, we recorded the following information about you: Coord KETAN Mcneil 12/16/2021 4:20 PM Signed Sabina called regarding oxycodone prescription 5mg to be called into [facility] [phone]. Experiencing stomach pains Please give Sabina a call at [phone] Allergies As of Date: 12/16/2021 Noted Allergy Reaction PROCHLORPERAZINE 02/18/2014 1 - Mental Status Change VALSARTAN 02/18/2014 5 - Intolerance Date Reviewed: 10/19/2021 Reviewed by: Sharmin Arguello RN - Fully Assessed Reason for Visit: Medication Problem [65] Prescriptions as of 12/16/2021 - vancomycin (VANCOCIN) 2 g in D5W 500 mL Inject 500 mL intravenously q 12 HR. - tamsulosin (FLOMAX) 0.4 mg Take 1 capsule by mouth daily at bedtime. - methocarbamol (ROBAXIN) 500 mg tablet Take 1 tablet by mouth three times daily. - enoxaparin (LOVENOX) 40 mg/0.4 mL Inject 0.4 mL subcutaneously q 24 HR. - therapeutic multivitamin-mineral s (THERA-M PLUS) 9 mg iron-400 mcg tablet Take 1 tablet by mouth every morning. - mwnlcgg-fbeyurgbs-nh tamin D3 500 mg-5 mcg (200 unit) per tablet Take 1 tablet by mouth. - amoxicillin-clavulan ic acid (AUGMENTIN) 875-125 mg per tablet Take 1 tablet by mouth twice daily. - cyanocobalamin 1,000 mcg/mL INJECT 1 ml INTRAMUSCULARLY EVERY 30 days - dicyclomine (BENTYL) 20 mg tablet Take by mouth twice daily. 2 tabs 2 times a day - DULoxetine (CYMBALTA) 30 mg capsule twice daily. - lisinopril (ZESTRIL, PRINIVIL) 20 mg tablet Take 20 mg by mouth twice daily. - pantoprazole DR (PROTONIX) 40 mg tablet once daily. In the AM - GAVILAX 17 gram/dose powder MIX 17 grams of powder (1 cap at marking) with 4-8 ounces of beverage AND drink BY MOUTH DAILY - potassium chloride ER (K-DUR, KLOR-CON) 20 mEq tablet Take 20 mEq by mouth twice daily. - pregabalin (LYRICA) 150 mg capsule Take 150 mg by mouth three times daily. - zolpidem (AMBIEN) 10 mg Take 10 mg by mouth at bedtime as needed. - pyridoxine, vitamin B6, (VITAMIN B6) 50 mg tablet Take 1 tablet by mouth once daily. 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] 10/13/2021 10/21/2021 Postoperative pain [G89.18] 10/15/2021 10/24/2021 Transaminitis [R74.01] 10/15/2021 10/21/2021 Respiratory insufficiency [R06.89] 10/15/2021 10/21/2021 DVT (deep venous thrombosis) (HCC) [I82.409] 10/15/2021 10/21/2021 Malnutrition of mild degree (HCC) [E44.1] 10/18/2021 10/21/2021 Encounter Status:Closed by RAMON MCNEIL II on 12/16/21 Normal [facility] CBC AUTO DIFFon 11-07-2021 BASO # 0.1 103/ul Normal 0.0-0.1 [facility] Comment on above: Performed By: #### C BC #### [facility] [address] [place] [address] Dr. Simona Maravilla Basophils/100 WBC (Bld) 1.6 % Normal 0.2-2.0 [facility] Comment on above: Performed By: #### C BC #### [facility] [address] [place] [address] Dr. Simona Maravilla EO # 0.3 103/ul Normal 0.0-0.7 [facility] Comment on above: Performed By: #### C BC #### [facility] [address] [place] [address] Dr. Simona Maravilla Eosinophils/100 WBC (Bld) 5.2 % Normal 0.9-7.0 [facility] Comment on above: Performed By: #### C BC #### [facility] [address] [place] [address] Dr. Simona Maravilla Erythrocyte distribution width (RBC) [Ratio] 20.6 % Critically high 11.0-15.0 [facility] Comment on above: Performed By: #### C BC #### [facility] [address] [place] [address] Dr. Simona Maravilla Hematocrit (Bld) [Volume fraction] 43.7 % Normal 42.0-54.0 [facility] Comment on above: Performed By: #### C BC #### [facility] [address] [place] [address] Dr. Simona Maravilla Hemoglobin (Bld) [Mass/Vol] 13.2 g/dL Critically low 14.0-18.0 [facility] Comment on above: Performed By: #### C BC #### [facility] [address] [place] [address] Dr. Simona Maravilla IG # 0.04 10e3/ul Critically high 0.00-0.03 [facility] Comment on above: Performed By: #### C BC #### [facility] [address] [place] [address] Dr. Simona Maravilla IG % 0.6 % Critically high 0.0-0.5 [facility] Comment on above: Performed By: #### C BC #### [facility] [address] [place] [address] Dr. Simona Maravilla LYMPH # 1.7 103/ul Normal 1.2-3.8 [facility] Comment on above: Performed By: #### C BC #### [facility] [address] [place] [address] Dr. Simona Maravilla Lymphocytes/100 WBC (Bld) 26.4 % Normal 20.5-60.0 [facility] Comment on above: Performed By: #### C BC #### [facility] [address] [place] [address] Dr. Simona Maravilla MANUAL DIFF REQ NO Normal [facility] Comment on above: Performed By: #### C BC #### [facility] [address] [place] [address] Dr. Simona Maravilla MCH (RBC) [Entitic mass] 24.4 pg Critically low 25.9-34.0 [facility] Comment on above: Performed By: #### C BC #### [facility] [address] [place] [address] Dr. Simona Maravilla MCHC (RBC) [Mass/Vol] 30.2 g/dL Normal 29.9-35.2 [facility] Comment on above: Performed By: #### C BC #### [facility] [address] [address] [address] Simona Maravilla MCV (RBC) [Entitic vol] 80.9 fL Normal 80.0-94.0 [facility] Comment on above: Performed By: #### C BC #### [facility] [address] [address] [address] Simona Maravilla MONO # 0.6 103/ul Normal 0.3-0.8 [facility] Comment on above: Performed By: #### C BC #### [facility] [address] [address] [address] Simona Maravilla Monocytes/100 WBC (Bld) 10.0 % Normal 1.7-12.0 [facility] Comment on above: Performed By: #### C BC #### [facility] [address] [place] [address] Dr. Simona Maravilla NEUT # 3.6 103/ul Normal 1.4-6.5 [facility] [facility] Comment on above: Performed By: #### C BC #### [facility] [address] [place] [address] Dr. Simona Maravilla Neutrophils/100 WBC (Bld) 56.2 % Normal 43.0-75.0 [facility] Comment on above: Performed By: #### C BC #### [facility] [address] [address] [address] Simona Maravilla Platelet mean volume (Bld) [Entitic vol] 9.4 fL Critically low 9.5-13.5 [facility] Comment on above: Performed By: #### C BC #### [facility] [address] [address] [address] Simona Maravilla PLT 558 103/ul Critically high 150-450 [facility] Comment on above: Performed By: #### C BC #### [facility] [address] [address] [address] Simona Maravilla RBC 5.40 106/ul Normal 4.70-6.10 [facility] Comment on above: Performed By: #### C BC #### [facility] [address] [address] [address] Simona Maravilla WBC 6.3 103/ul Normal 4.0-11.0 [facility] Comment on above: Performed By: #### C BC #### [facility] [address] [address] [address] Simona Maravilla CRPon 11-07-2021 CRP 5.5 mg/dL Critically high <=1.0 [facility] Comment on above: Performed By: #### C BC #### [facility] [address] [address] [address] Simona Maravilla PROF 14(COMP METB)on 022 Albumin [Mass/Vol] 3.8 g/dL Normal 3.4-5.0 [facility] Comment on above: Performed By: #### C BC #### [facility] [address] [place] [address] Dr. Simona Maravilla Albumin/Globulin [Mass ratio] 0.9 {ratio} Normal [facility] Comment on above: Performed By: #### C BC #### [facility] [address] [place] [address] Dr. Simona Maravilla ALP [Catalytic activity/Vol] 125 U/L Critically high 46-116 [facility] Comment on above: Performed By: #### C BC #### [facility] [address] [address] [address] Simona Maravilla ALT [Catalytic activity/Vol] 15 U/L Critically low 16-63 [facility] Comment on above: Performed By: #### C BC #### [facility] [address] [address] [address] Simona Maravilla Anion gap [Moles/Vol] 14.2 mmol/L Normal [facility] Comment on above: Performed By: #### C BC #### [facility] [address] [place] [address] Dr. Simona Maravilla AST [Catalytic activity/Vol] 26 U/L Normal 15-37 [facility] Comment on above: Performed By: #### C BC #### [facility] [address] [address] [address] Simona Maravilla Bilirubin [Mass/Vol] 0.5 mg/dL Normal 0.2-1.0 [facility] Comment on above: Performed By: #### C BC #### [facility] [address] [address] [address] Simona Maravilla Calcium [Mass/Vol] 9.5 mg/dL Normal 8.5-10.1 [facility] Comment on above: Performed By: #### C BC #### [facility] [address] [place] [address] Dr. Simona Maravilla Chloride [Moles/Vol] 105 mmol/L Normal 98-107 [facility] Comment on above: Performed By: #### C BC #### [facility] [address] [place] [address] Dr. Simona Maravilla CO2 [Moles/Vol] 25.0 mmol/L Normal 21.0-32.0 [facility] Comment on above: Performed By: #### C BC #### [facility] [address] [place] [address] Dr. Simona Maravilla Creatinine [Mass/Vol] 0.85 mg/dL Normal 0.70-1.30 [facility] Comment on above: Performed By: #### C BC #### [facility] [address] [place] [address] Dr. Simona Maravilla EGFR-AF BOLIVIAN >60 Normal >=60 [facility] Comment on above: Performed By: #### C BC #### [facility] [address] [place] [address] Dr. Simona Maravilla EGFR-NON AF BOLIVIAN >60 Normal >=60 [facility] Comment on above: Performed By: #### C BC #### [facility] [address] [place] [address] Dr. Simona Maravilla Globulin (S) [Mass/Vol] 4.1 g/dL Normal [facility] Comment on above: Performed By: #### C BC #### [facility] [address] [place] [address] Dr. Simona Maravilla Glucose [Mass/Vol] 75 mg/dL Normal 74-[address] [facility] Comment on above: Performed By: #### C BC #### [facility] [address] [address] [address] Simona Maravilla Potassium [Moles/Vol] 4.2 mmol/L Normal 3.5-5.1 [facility] Comment on above: Performed By: #### C BC #### [facility] [address] [address] [address] Simona Maravilla Protein [Mass/Vol] 7.9 g/dL Normal 6.4-8.2 [facility] Comment on above: Performed By: #### C BC #### [facility] [address] [address] [address] Simona Maravilla Sodium [Moles/Vol] 140 mmol/L Normal 136-145 [facility] Comment on above: Performed By: #### C BC #### [facility] [address] [address] [address] Simona Maravilla Urea nitrogen [Mass/Vol] 10.0 mg/dL Normal 7.0-18.0 [facility] Comment on above: Performed By: #### C BC #### [facility] [address] [address] [address] Simona Maravilla Urea nitrogen/Creatinine [Mass ratio] 11.8 mg/mg Normal [facility] Comment on above: Performed By: #### C BC #### [facility] [address] [address] [address] Simona Maravilla VANCOMYCIN TROUGHon 11-08-19 VANCOMYCIN TROUGH 11.2 ug/ml Normal 5.0-20.0 [facility] Comment on above: Performed By: #### V ANCT ####[facility] [address] [address]Dr. Simona Maravilla CBC AUTO DIFFon 10-31-2021 BASO # 0.1 103/ul Normal 0.0-0.1 [facility] Comment on above: Performed By: #### C BC #### [facility] [address] [address] [address] Simona Maravilla Basophils/100 WBC (Bld) 1.1 % Normal 0.2-2.0 [facility] Comment on above: Performed By: #### C BC #### [facility] [address] [place] [address] Dr. Simona Maravilla EO # 0.3 103/ul Normal 0.0-0.7 [facility] Comment on above: Performed By: #### C BC #### [facility] [address] [place] [address] Dr. Simona Maravilla Eosinophils/100 WBC (Bld) 4.5 % Normal 0.9-7.0 [facility] Comment on above: Performed By: #### C BC #### [facility] [address] [place] [address] Dr. Simona Maravilla Erythrocyte distribution width (RBC) [Ratio] 20.4 % Critically high 11.0-15.0 [facility] Comment on above: Performed By: #### C BC #### [facility] [address] [place] [address] Dr. Simona Maravilla Hematocrit (Bld) [Volume fraction] 42.1 % Normal 42.0-54.0 [facility] Comment on above: Performed By: #### C BC #### [facility] [address] [place] [address] Dr. Simona Maravilla Hemoglobin (Bld) [Mass/Vol] 12.6 g/dL Critically low 14.0-18.0 [facility] Comment on above: Performed By: #### C BC #### [facility] [address] [place] [address] Dr. Simona Maravilla IG # 0.08 10e3/ul Critically high 0.00-0.03 [facility] Comment on above: Performed By: #### C BC #### [facility] [address] [place] [address] Dr. Simona Maravilla IG % 1.1 % Critically high 0.0-0.5 [facility] Comment on above: Performed By: #### C BC #### [facility] [address] [address] [address] Simona Maravilla LYMPH # 1.5 103/ul Normal 1.2-3.8 [facility] Comment on above: Performed By: #### C BC #### [facility] [address] [place] [address] Dr. Simona Maravilla Lymphocytes/100 WBC (Bld) 19.7 % Critically low 20.5-60.0 [facility] Comment on above: Performed By: #### C BC #### [facility] [address] [place] [address] Dr. Simona Maravilla MANUAL DIFF REQ NO Normal [facility] Comment on above: Performed By: #### C BC #### [facility] [address] [place] [address] Dr. Simona Maravilla MCH (RBC) [Entitic mass] 24.3 pg Critically low 25.9-34.0 [facility] Comment on above: Performed By: #### C BC #### [facility] [address] [place] [address] Dr. Simona Maravilla MCHC (RBC) [Mass/Vol] 29.9 g/dL Normal 29.9-35.2 [facility] Comment on above: Performed By: #### C BC #### [facility] [address] [place] [address] Dr. Simona Maravilla MCV (RBC) [Entitic vol] 81.3 fL Normal 80.0-94.0 [facility] Comment on above: Performed By: #### C BC #### [facility] [address] [place] [address] Dr. Simona Maravilla MONO # 0.8 103/ul Normal 0.3-0.8 [facility] Comment on above: Performed By: #### C BC #### [facility] [address] [place] [address] Dr. Simona Maravilla Monocytes/100 WBC (Bld) 10.7 % Normal 1.7-12.0 [facility] Comment on above: Performed By: #### C BC #### [facility] [address] [place] [address] Dr. Simona Maravilla NEUT # 4.7 103/ul Normal 1.4-6.5 [facility] Comment on above: Performed By: #### C BC #### [facility] [address] [place] [address] Dr. Simona Maravilla Neutrophils/100 WBC (Bld) 62.9 % Normal 43.0-75.0 [facility] Comment on above: Performed By: #### C BC #### [facility] [address] [place] [address] Dr. Simona Maravilla Platelet mean volume (Bld) [Entitic vol] 9.2 fL Critically low 9.5-13.5 [facility] Comment on above: Performed By: #### C BC #### [facility] [address] [place] [address] Dr. Simona Maravilla PLT 835 103/ul Critically high 150-450 [facility] Comment on above: Performed By: #### C BC #### [facility] [address] [place] [address] Dr. Simona Maravilla RBC 5.18 106/ul Normal 4.70-6.10 [facility] Comment on above: Performed By: #### C BC #### [facility] [address] [place] [address] Dr. Simona Maravilla WBC 7.5 103/ul Normal 4.0-11.0 [facility] Comment on above: Performed By: #### C BC #### [facility] [address] [place] [address] Dr. Simona Maravilla CRPon 10-31-2021 CRP 5.6 mg/dL Critically high <=1.0 [facility] Comment on above: Performed By: #### C RP, CMP #### [facility] [address] [place] [address] Dr. Simona Maravilla PROF 14(COMP METB)on 022 Albumin [Mass/Vol] 3.7 g/dL Normal 3.4-5.0 [facility] Comment on above: Performed By: #### C RP, CMP #### [facility] [address] [address] [address] Simona Maravilla Albumin/Globulin [Mass ratio] 0.8 {ratio} Normal [facility] Comment on above: Performed By: #### C RP, CMP #### [facility] [address] [address] [address] Simona Maravilla ALP [Catalytic activity/Vol] 136 U/L Critically high 46-116 [facility] Comment on above: Performed By: #### C RP, CMP #### [facility] [address] [place] [address] Dr. Simona Maravilla ALT [Catalytic activity/Vol] 10 U/L Critically low 16-63 [facility] Comment on above: Performed By: #### C RP, CMP #### [facility] [address] [place] [address] Dr. Simona Maravilla Anion gap [Moles/Vol] 19.4 mmol/L Normal [facility] Comment on above: Performed By: #### C RP, CMP #### [facility] [address] [place] [address] Dr. Simona Maravilla AST [Catalytic activity/Vol] 20 U/L Normal 15-37 [facility] Comment on above: Performed By: #### C RP, CMP #### [facility] [address] [place] [address] Dr. Simona Maravilla Bilirubin [Mass/Vol] 0.7 mg/dL Normal 0.2-1.0 [facility] Comment on above: Performed By: #### C RP, CMP #### [facility] [address] [place] [address] Dr. Simona Maravilla Calcium [Mass/Vol] 9.5 mg/dL Normal 8.5-10.1 [facility] Comment on above: Performed By: #### C RP, CMP #### [facility] [address] [place] [address] Dr. Simona Maravilla Chloride [Moles/Vol] 99 mmol/L Normal 98-107 [facility] Comment on above: Performed By: #### C RP, CMP #### [facility] [address] [place] [address] Dr. Simona Maravilla CO2 [Moles/Vol] 21.4 mmol/L Normal 21.0-32.0 [facility] Comment on above: Performed By: #### C RP, CMP #### [facility] [address] [place] [address] Dr. Simona Maravilla Creatinine [Mass/Vol] 0.80 mg/dL Normal 0.70-1.30 [facility] Comment on above: Performed By: #### C RP, CMP #### [facility] [address] [place] [address] Dr. Simona Maravilla EGFR-AF BOLIVIAN >60 Normal >=60 [facility] Comment on above: Performed By: #### C RP, CMP #### [facility] [address] [place] [address] Dr. Simona Maravilla EGFR-NON AF BOLIVIAN >60 Normal >=60 [facility] Comment on above: Performed By: #### C RP, CMP #### [facility] [address] [place] [address] Dr. Simona Maravilla Globulin (S) [Mass/Vol] 4.6 g/dL Normal [facility] Comment on above: Performed By: #### C RP, CMP #### [facility] [address] [place] [address] Dr. Simona Maravilla Glucose [Mass/Vol] 56 mg/dL Critically low 74-106 [facility] Comment on above: Performed By: #### C RP, CMP #### [facility] [address] [address] [address] Simona Maravilla Potassium [Moles/Vol] 3.8 mmol/L Normal 3.5-5.1 [facility] Comment on above: Performed By: #### C RP, CMP #### [facility] [address] [place] [address] Dr. Simona Maravilla Protein [Mass/Vol] 8.3 g/dL Critically high 6.4-8.2 [facility] Comment on above: Performed By: #### C RP, CMP #### [facility] [address] [place] [address] Dr. Simona Maravilla Sodium [Moles/Vol] 136 mmol/L Normal 136-145 [facility] Comment on above: Performed By: #### C RP, CMP #### [facility] [address] [place] [address] Dr. Simona Maravilla Urea nitrogen [Mass/Vol] 7.0 mg/dL Normal 7.0-18.0 [facility] Comment on above: Performed By: #### C RP, CMP #### [facility] [address] [place] [address] Dr. Simona Maravilla Urea nitrogen/Creatinine [Mass ratio] 8.8 mg/mg Normal [facility] Comment on above: Performed By: #### C RP, CMP #### [facility] [address] [place] [address] Dr. Simona Maravilla VANCOMYCIN TROUGHon 11-01-19 VANCOMYCIN TROUGH 13.5 ug/ml Normal 5.0-20.0 [facility] Comment on above: Performed By: #### C RP, CMP #### [facility] [address] [place] [address] Dr. Simona Maravilla CBC AUTO DIFFon 10-10-2021 BASO # 0.1 103/ul Normal 0.0-0.1 [facility] Comment on above: Performed By: #### C RP, CMP #### [facility] [address] [place] [address] Dr. Simona Maravilla Basophils/100 WBC (Bld) 1.3 % Normal 0.2-2.0 [facility] Comment on above: Performed By: #### C RP, CMP #### [facility] [address] [place] [address] Dr. Simona Maravilla EO # 0.3 103/ul Normal 0.0-0.7 [facility] Comment on above: Performed By: #### C RP, CMP #### [facility] [address] [place] [address] Dr. Simona Maravilla Eosinophils/100 WBC (Bld) 4.9 % Normal 0.9-7.0 [facility] Comment on above: Performed By: #### C RP, CMP #### [facility] [address] [place] [address] Dr. Simona Maravilla Erythrocyte distribution width (RBC) [Ratio] 21.3 % Critically high 11.0-15.0 [facility] Comment on above: Performed By: #### C RP, CMP #### [facility] [address] [place] [address] Dr. Simona Maravilla Hematocrit (Bld) [Volume fraction] 45.7 % Normal 42.0-54.0 [facility] Comment on above: Performed By: #### C RP, CMP #### [facility] [address] [place] [address] Dr. Simona Maravilla Hemoglobin (Bld) [Mass/Vol] 13.3 g/dL Critically low 14.0-18.0 [facility] Comment on above: Performed By: #### C RP, CMP #### [facility] [address] [place] [address] Dr. Simona Maravilla IG # 0.06 10e3/ul Critically high 0.00-0.03 [facility] Comment on above: Performed By: #### C RP, CMP #### [facility] [address] [place] [address] Dr. Simona Maravilla IG % 1.0 % Critically high 0.0-0.5 [facility] Comment on above: Performed By: #### C RP, CMP #### [facility] [address] [place] [address] Dr. Simona Maravilla LYMPH # 1.4 103/ul Normal 1.2-3.8 [facility] Comment on above: Performed By: #### C RP, CMP #### [facility] [address] [place] [address] Dr. Simona Maravilla Lymphocytes/100 WBC (Bld) 23.8 % Normal 20.5-60.0 [facility] Comment on above: Performed By: #### C RP, CMP #### [facility] [address] [place] [address] Dr. Simona Maravilla MANUAL DIFF REQ NO Normal [facility] Comment on above: Performed By: #### C RP, CMP #### [facility] [address] [place] [address] Dr. Simona Maravilla MCH (RBC) [Entitic mass] 21.5 pg Critically low 25.9-34.0 [facility] Comment on above: Performed By: #### C RP, CMP #### [facility] [address] [place] [address] Dr. Simona Maravilla MCHC (RBC) [Mass/Vol] 29.1 g/dL Critically low 29.9-35.2 [facility] Comment on above: Performed By: #### C RP, CMP #### [facility] [address] [place] [address] Dr. Simona Maravilla MCV (RBC) [Entitic vol] 73.7 fL Critically low 80.0-94.0 [facility] Comment on above: Performed By: #### C RP, CMP #### [facility] [address] [place] [address] Dr. Simona Maravilla MONO # 0.6 103/ul Normal 0.3-0.8 [facility] Comment on above: Performed By: #### C RP, CMP #### [facility] [address] [place] [address] Dr. Simona Maravilla Monocytes/100 WBC (Bld) 9.2 % Normal 1.7-12.0 [facility] Comment on above: Performed By: #### C RP, CMP #### [facility] [address] [place] [address] Dr. Simona Maravilla NEUT # 3.6 103/ul Normal 1.4-6.5 [facility] Comment on above: Performed By: #### C RP, CMP #### [facility] [address] [place] [address] Dr. Simona Maravilla Neutrophils/100 WBC (Bld) 59.8 % Normal 43.0-75.0 [facility] Comment on above: Performed By: #### C RP, CMP #### [facility] [address] [place] [address] Dr. Simona Maravilla Platelet mean volume (Bld) [Entitic vol] 8.8 fL Critically low 9.5-13.5 [facility] Comment on above: Performed By: #### C RP, CMP #### [facility] [address] [place] [address] Dr. Simona Maravilla PLT 423 103/ul Normal 150-450 [facility] Comment on above: Performed By: #### C RP, CMP #### [facility] [address] [address] [address] Simona Maravilla RBC 6.20 106/ul Critically high 4.70-6.10 [facility] Comment on above: Performed By: #### C RP, CMP #### [facility] [address] [place] [address] Dr. Simona Maravilla WBC 6.0 103/ul Normal 4.0-11.0 [facility] Comment on above: Performed By: #### C RP, CMP #### [facility] [address] [place] [address] Dr. Simona Maravilla CRPon 10-10-2021 CRP 0.9 mg/dL Normal <=1.0 [facility] Comment on above: Performed By: #### C RP, CMP #### [facility] [address] [place] [address] Dr. Simona Maravilla PROF 14(COMP METB)on 022 Albumin [Mass/Vol] 3.9 g/dL Normal 3.4-5.0 [facility] Comment on above: Performed By: #### C BC #### [facility] [address] [place] [address] Dr. Simona Maravilla Albumin/Globulin [Mass ratio] 1.0 {ratio} Normal [facility] Comment on above: Performed By: #### C BC #### [facility] [address] [place] [address] Dr. Simona Maravilla ALP [Catalytic activity/Vol] 127 U/L Critically high 46-116 [facility] Comment on above: Performed By: #### C BC #### [facility] [address] [place] [address] Dr. Simona Maravilla ALT [Catalytic activity/Vol] 30 U/L Normal 16-63 [facility] Comment on above: Performed By: #### C BC #### [facility] [address] [address] [address] Simona Maravilla Anion gap [Moles/Vol] 13.9 mmol/L Normal [facility] Comment on above: Performed By: #### C BC #### [facility] [address] [address] [address] Simona Maravilla AST [Catalytic activity/Vol] 20 U/L Normal 15-37 [facility] Comment on above: Performed By: #### C BC #### [facility] [address] [address] [address] Simona Maravilla Bilirubin [Mass/Vol] 0.4 mg/dL Normal 0.2-1.0 [facility] Comment on above: Performed By: #### C BC #### [facility] [address] [address] [address] Simona Maravilla Calcium [Mass/Vol] 9.0 mg/dL Normal 8.5-10.1 [facility] Comment on above: Performed By: #### C BC #### [facility] [address] [address] [address] Simona Maravilla Chloride [Moles/Vol] 105 mmol/L Normal 98-107 [facility] Comment on above: Performed By: #### C BC #### [facility] [address] [address] [address] Simona Maravilla CO2 [Moles/Vol] 23.7 mmol/L Normal 21.0-32.0 [facility] Comment on above: Performed By: #### C BC #### [facility] [address] [address] [address] Simona Maravilla Creatinine [Mass/Vol] 0.68 mg/dL Critically low 0.70-1.30 [facility] Comment on above: Performed By: #### C BC #### [facility] [address] [address] [address] Simona Maravilla EGFR-AF BOLIVIAN >=60 Normal >=60 [facility] Comment on above: Performed By: #### C BC #### [facility] [address] [address] [address] Simona Maravilla EGFR-NON AF BOLIVIAN >=60 Normal >=60 [facility] Comment on above: Performed By: #### C BC #### [facility] [address] [address] [address] Simona Maravilla Globulin (S) [Mass/Vol] 3.8 g/dL Normal [facility] Comment on above: Performed By: #### C BC #### [facility] [address] [address] [address] Simona Maravilla Glucose [Mass/Vol] 82 mg/dL Normal 74-106 [facility] Comment on above: Performed By: #### C BC #### [facility] [address] [place] [address] Dr. Simona Maravilla Potassium [Moles/Vol] 3.6 mmol/L Normal 3.5-5.1 [facility] Comment on above: Performed By: #### C BC #### [facility] [address] [place] [address] Dr. Simona Maravilla Protein [Mass/Vol] 7.7 g/dL Normal 6.4-8.[address] [facility] Comment on above: Performed By: #### C BC #### [facility] [address] [place] [address] Dr. Simona Maravilla Sodium [Moles/Vol] 139 mmol/L Normal 136-[address] [facility] Comment on above: Performed By: #### C BC #### [facility] [address] [place] [address] Dr. Simona Maravilla Urea nitrogen [Mass/Vol] 9.0 mg/dL Normal 7.0-18.0 [facility] Comment on above: Performed By: #### C BC #### [facility] [address] [place] [address] Dr. Simona Maravilla Urea nitrogen/Creatinine [Mass ratio] 13.2 mg/mg Normal [facility] Comment on above: Performed By: #### C BC #### [facility] [address] [place], [place] [address] Dr. Simona Maravilla VANCOMYCIN TROUGHon 10-11-19 VANCOMYCIN TROUGH 15.0 ug/ml Normal 5.0-20.0 [facility] Comment on above: Performed By: #### C BC #### [facility] [address] [place] [id number] Simona Maravilla XR CHEST 2V FRONTAL/LATon [facility] ic CBC AUTO DIFFon 10-03-2021 BASO # 0.1 103/ul Normal 0.0-0.1 [facility] Comment on above: Performed By: #### C BC ####[facility] [address] [place] [address]DrKali Maravilla Basophils/100 WBC (Bld) 1.1 % Normal 0.2-2.0 [facility] Comment on above: Performed By: #### C BC ####[facility] [address] [place] [address]DrKali Maravilla EO # 0.4 103/ul Normal 0.0-0.7 [facility] Comment on above: Performed By: #### C BC ####[facility] Bslmisafez[address] [place] [address]DrKali Maravilla Eosinophils/100 WBC (Bld) 5.1 % Normal 0.9-7.0 [facility] Comment on above: Performed By: #### C BC ####[facility] Dtogqhomgg22[address] [place] [address]DrKali Maravilla Erythrocyte distribution width (RBC) [Ratio] 22.5 % Critically high 11.0-15.0 [facility] Comment on above: Performed By: #### C BC ####[facility] [address]qaz[address] [place] [id number] Maravilla Hematocrit (Bld) [Volume fraction] 46.4 % Normal 42.0-54.0 [facility] Comment on above: Performed By: #### C BC ####[facility] Hsxvdafifr8[address] [place] [address]DrKali Maravilla Hemoglobin (Bld) [Mass/Vol] 13.5 g/dL Critically low 14.0-18.0 [facility] Comment on above: Performed By: #### C BC ####[facility] Aqnmfjyrrs[address] [place] [address]DrKali Maravilla IG # 0.05 10e3/ul Critically high 0.00-0.03 [facility] Comment on above: Performed By: #### C BC ####[facility] Iqkquimlrv[address] [place] [address]DrKali Maravilla IG % 0.7 % Critically high 0.0-0.5 [facility] Comment on above: Performed By: #### C BC ####[facility] U[address]zyukxyd[address] [place] [address]DrKali Maravilla LYMPH # 2.2 103/ul Normal 1.2-3.8 [facility] Comment on above: Performed By: #### C BC ####[facility] Yoowqjsjtg038[address] [place] [address]DrKali Maravilla Lymphocytes/100 WBC (Bld) 29.9 % Normal 20.5-60.0 [facility] Comment on above: Performed By: #### C BC ####[facility] Eylbqojiqb[address] [place] [address]DrKali Maravilla MANUAL DIFF REQ NO Normal [facility] Comment on above: Performed By: #### C BC ####[facility] Bybmiduysx6[address] [place] [address]DrKali Maravilla MCH (RBC) [Entitic mass] 21.7 pg Critically low 25.9-34.0 [facility] Comment on above: Performed By: #### C BC ####[facility] Xvtdhtdkdd4894 [place] [address]DrKali Maravilla MCHC (RBC) [Mass/Vol] 29.1 g/dL Critically low 29.9-35.2 [facility] Comment on above: Performed By: #### C BC ####[facility] Rwcleaulff58[address] [place] [address]DrKali Maravilla MCV (RBC) [Entitic vol] 74.6 fL Critically low 80.0-94.0 [facility] Comment on above: Performed By: #### C BC ####[facility] Bxuwksporm84[address] [place] [address]Dr. Simona Maravilla MONO # 0.6 103/ul Normal 0.3-0.8 [facility] Comment on above: Performed By: #### C BC ####[facility] Zinhmsxaxf5[address] [place] [address]DrKali Maravilla Monocytes/100 WBC (Bld) 8.4 % Normal 1.7-12.0 [facility] Comment on above: Performed By: #### C BC ####[facility] Rknqsdymcz[address] [place], [place] [address]DrKali Maravilla NEUT # 4.1 103/ul Normal 1.4-6.5 [facility] Comment on above: Performed By: #### C BC ####[facility] Hpuvajojar[address] [place], [place] [address]DrKali Maravilla Neutrophils/100 WBC (Bld) 54.8 % Normal 43.0-75.0 [facility] Comment on above: Performed By: #### C BC ####[facility] Qvxetkrois6[address] [place], [place] [address]DrKali Maravilla Platelet mean volume (Bld) [Entitic vol] 9.8 fL Normal 9.5-13.5 [facility] Comment on above: Performed By: #### C BC ####[facility] Mckrnpbjfw[address] [place], [place] [address]DrKali Maravilla PLT 427 103/ul Normal 150-450 [facility] Comment on above: Performed By: #### C BC ####[facility] Jiozjhxnho6[address] [place], [place] [address]DrKali Maravilla RBC 6.22 106/ul Critically high 4.70-6.10 [facility] Comment on above: Result Comment: 1+ a nisocytosis 1+ ovalocytes Performed By: #### C BC ####[facility] Csbfxqgwim036[address] [place], [place] [address]DrKali Maravilla WBC 7.5 103/ul Normal 4.0-11.0 [facility] Comment on above: Performed By: #### C BC ####[facility] Diemnlwxuj3[address] [place] [address]Dr. Simona Maravilla CRPon 10-03-2021 CRP 3.6 mg/dL Critically high <=1.0 [facility] Comment on above: Performed By: #### C MP, CRP ####[facility] Psnwrjicor04[address] [place] [address]Dr. Simona Maravilla PROF 14(COMP METB)on 022 Albumin [Mass/Vol] 3.8 g/dL Normal 3.4-5.0 [facility] Comment on above: Performed By: #### C MP, CRP ####[facility] Qsvvpkoiou[address] [place], [place] [address]Dr. Simona Maravilla Albumin/Globulin [Mass ratio] 0.9 {ratio} Normal [facility] Comment on above: Performed By: #### C MP, CRP ####[facility] Evwnykuboq0214[address] [place], [place] [address]Dr. Simona Maravilla ALP [Catalytic activity/Vol] 145 U/L Critically high 46-116 [facility] Comment on above: Performed By: #### C MP, CRP ####[facility] Rygawmuspl7394[address] [place], [place] [address]Dr. Simona Maravilla ALT [Catalytic activity/Vol] 29 U/L Normal 16-63 [facility] Comment on above: Performed By: #### C MP, CRP ####[facility] Bflrtcuoxx7564[address] [place], [place] [address]Dr. Simona Maravilla Anion gap [Moles/Vol] 15.5 mmol/L Normal [facility] Comment on above: Performed By: #### C MP, CRP ####[facility] Nkpmuvuigp49[address] [place], [place] [address]Dr. Simona Maravilla AST [Catalytic activity/Vol] 25 U/L Normal 15-37 [facility] Comment on above: Performed By: #### C MP, CRP ####[facility] Etytehzlhu6812[address] [place], [place] [address]Dr. Simona Maravilla Bilirubin [Mass/Vol] 0.4 mg/dL Normal 0.2-1.0 [facility] Comment on above: Performed By: #### C MP, CRP ####[facility] Iovzdolvbg36[address] [place], [place] [address]Dr. Simona Maravilla Calcium [Mass/Vol] 9.5 mg/dL Normal 8.5-10.1 [facility] Comment on above: Performed By: #### C MP, CRP ####[facility] Altnklfrqc5[address] [place], [place] [address]Dr. Simona Maravilla Chloride [Moles/Vol] 104 mmol/L Normal 98-107 [facility] Comment on above: Performed By: #### C MP, CRP ####[facility] Nzoozgmmeh8[address] [place], [place] [address]Dr. Simona Maravilla CO2 [Moles/Vol] 23.4 mmol/L Normal 21.0-32.0 [facility] Comment on above: Performed By: #### C MP, CRP ####[facility] Dqvrlzjnbx[address] [place], [place] [address]Dr. Simona Maravilla Creatinine [Mass/Vol] 0.84 mg/dL Normal 0.70-1.30 [facility] Comment on above: Performed By: #### C MP, CRP ####[facility] Zynaosibgf86[address] [place], [place] [address]Dr. Simona Maravilla EGFR-AF BOLIVIAN >60 Normal >=60 [facility] Comment on above: Performed By: #### C MP, CRP ####[facility] Xtrbbwawdq[address] [place], [place] [address]Dr. Simona Maravilla EGFR-NON AF BOLIVIAN >60 Normal >=60 [facility] Comment on above: Performed By: #### C MP, CRP ####[facility] Lkpyribysy[address] [place], [place] [address]Dr. Simona Maravilla Globulin (S) [Mass/Vol] 4.2 g/dL Normal [facility] Comment on above: Performed By: #### C MP, CRP ####[facility] [address]trt[address] [place] [id number]. Simona Maravilla Glucose [Mass/Vol] 93 mg/dL Normal 74-[address] [facility] Comment on above: Performed By: #### C MP, CRP ####[facility] R[address]ynycgdu34[address] [place] [id number]. Simona Maravilla Potassium [Moles/Vol] 3.9 mmol/L Normal 3.5-5.1 [facility] Comment on above: Performed By: #### C MP, CRP ####[facility] Y[address]tnmbudlr90[address] [place] [address]Dr. Simona Maravilla Protein [Mass/Vol] 8.0 g/dL Normal 6.4-8.[address] [facility] Comment on above: Performed By: #### C MP, CRP ####[facility] [address]fwpuam[address] [place] [address]Dr. Simona Maravilla Sodium [Moles/Vol] 139 mmol/L Normal 136-[address] [facility] Comment on above: Performed By: #### C MP, CRP ####[facility] Ejjfbdccwr27[address] [place] [id number]. Simona Maravilla Urea nitrogen [Mass/Vol] 10.0 mg/dL Normal 7.0-18.0 [facility] Comment on above: Performed By: #### C MP, CRP ####[facility] Q[address]fwhhbmg[address] [place] [address]Dr. Simona Maravilla Urea nitrogen/Creatinine [Mass ratio] 11.9 mg/mg Normal [facility] Comment on above: Performed By: #### C MP, CRP ####[facility] [address]wvvuk[address] [place] [id number]. Simona Maravilla VANCOMYCIN TROUGHon 10-04-19 VANCOMYCIN TROUGH 11.8 ug/ml Normal 5.0-20.0 [facility] Comment on above: Performed By: #### C BC #### [facility] [address] [place], [place] [address] Dr. Simona Maravilla CBC AUTO DIFFon 09-19-2021 BASO # 0.1 103/ul Normal 0.0-0.1 [facility] Comment on above: Performed By: #### C RP, CMP #### [facility] [address] [place] [address] Dr. Simona Maravilla Basophils/100 WBC (Bld) 0.7 % Normal 0.2-2.0 [facility] Comment on above: Performed By: #### C RP, CMP #### [facility] [address] [place] [address] Dr. Simona Maravilla EO # 0.3 103/ul Normal 0.0-0.7 [facility] Comment on above: Performed By: #### C RP, CMP #### [facility] [address] [place] [address] Dr. Simona Maravilla Eosinophils/100 WBC (Bld) 4.1 % Normal 0.9-7.0 [facility] Comment on above: Performed By: #### C RP, CMP #### [facility] [address] [place] [address] Dr. Simona Maravilla Erythrocyte distribution width (RBC) [Ratio] 22.7 % Critically high 11.0-15.0 [facility] Comment on above: Performed By: #### C RP, CMP #### [facility] [address] [place] [address] Dr. Simona Maravilla Hematocrit (Bld) [Volume fraction] 47.9 % Normal 42.0-54.0 [facility] Comment on above: Performed By: #### C RP, CMP #### [facility] [address] [place] [address] Dr. Simona Maravilla Hemoglobin (Bld) [Mass/Vol] 14.0 g/dL Normal 14.0-18.0 [facility] Comment on above: Performed By: #### C RP, CMP #### [facility] [address] [place] [address] Dr. Simona Maravilla IG # 0.03 10e3/ul Normal 0.00-0.03 [facility] Comment on above: Performed By: #### C RP, CMP #### [facility] [address] [place] [address] Dr. Simona Maravilla IG % 0.4 % Normal 0.0-0.5 [facility] Comment on above: Performed By: #### C RP, CMP #### [facility] [address] [place] [address] Dr. Simona Maravilla LYMPH # 1.7 103/ul Normal 1.2-3.8 [facility] Comment on above: Performed By: #### C RP, CMP #### [facility] [address] [place] [address] Dr. Simona Maravilla Lymphocytes/100 WBC (Bld) 23.3 % Normal 20.5-60.0 [facility] Comment on above: Performed By: #### C RP, CMP #### [facility] [address] [place] [address] Dr. Simona Maravilla MANUAL DIFF REQ NO Normal [facility] Comment on above: Performed By: #### C RP, CMP #### [facility] [address] [place] [address] Dr. Simona Maravilla MCH (RBC) [Entitic mass] 21.6 pg Critically low 25.9-34.0 [facility] Comment on above: Performed By: #### C RP, CMP #### [facility] [address] [place] [address] Dr. Simona Maravilla MCHC (RBC) [Mass/Vol] 29.2 g/dL Critically low 29.9-35.2 [facility] Comment on above: Performed By: #### C RP, CMP #### [facility] [address] [place] [address] Dr. Simona Maravilla MCV (RBC) [Entitic vol] 73.9 fL Critically low 80.0-94.0 [facility] Comment on above: Performed By: #### C RP, CMP #### [facility] [address] [place] [address] Dr. Simona Maravilla MONO # 0.7 103/ul Normal 0.3-0.8 [facility] Comment on above: Performed By: #### C RP, CMP #### [facility] [address] [place] [address] Dr. Simona Maravilla Monocytes/100 WBC (Bld) 9.2 % Normal 1.7-12.0 [facility] Comment on above: Performed By: #### C RP, CMP #### [facility] [address] [place] [address] Dr. Simona Maravilla NEUT # 4.6 103/ul Normal 1.4-6.5 [facility] Comment on above: Performed By: #### C RP, CMP #### [facility] [address] [place] [address] Dr. Simona Maravilla Neutrophils/100 WBC (Bld) 62.3 % Normal 43.0-75.0 [facility] Comment on above: Performed By: #### C RP, CMP #### [facility] [address] [place] [address] Dr. Simona Maravilla PLT 331 103/ul Normal 150-450 [facility] Comment on above: Performed By: #### C RP, CMP #### [facility] [address] [place] [address] Dr. Simona Maravilla RBC 6.48 106/ul Critically high 4.70-6.10 [facility] Comment on above: Performed By: #### C RP, CMP #### [facility] [address] [place] [address] Dr. Simona Maravilla WBC 7.4 103/ul Normal 4.0-11.0 [facility] Comment on above: Performed By: #### C RP, CMP #### [facility] [address] [place] [address] Dr. Simona Maravilla MAGNESIUMon 09-19-2021 Magnesium [Mass/Vol] 2.4 mg/dL Normal 1.8-2.4 [facility] Comment on above: Performed By: #### M G, CMP, TRIG, PREALB, PHOS ####[facility] [address]ptq[address] [place] [address]Dr. Simona Maravilla PHOSPHORUSon 09-19-2021 Phosphate [Mass/Vol] 3.7 mg/dL Normal 2.6-4.7 [facility] Comment on above: Performed By: #### M G, CMP, TRIG, PREALB, PHOS #### [facility] [address] [place] [address] [address] Simona Maravilla PREALBUMINon 09-19-2021 Prealbumin [Mass/Vol] 19.9 mg/dL Critically low 20.9-45.5 [facility] Comment on above: Performed By: #### M G, CMP, TRIG, PREALB, PHOS #### [facility] [address] [place] [address] [address] Simona Maravilla PROF 14(COMP METB)on 022 Albumin [Mass/Vol] 4.0 g/dL Normal 3.4-5.0 [facility] Comment on above: Performed By: #### M G, CMP, TRIG, PREALB, PHOS ####[facility] [address]xf[address] [place] [address]DrKali Maravilla Albumin/Globulin [Mass ratio] 1.2 {ratio} Normal [facility] Comment on above: Performed By: #### M G, CMP, TRIG, PREALB, PHOS ####[facility] [address]ajwlc[address] [place] [address]Dr. Simona Maravilla ALP [Catalytic activity/Vol] 117 U/L Critically high 46-116 [facility] Comment on above: Performed By: #### M G, CMP, TRIG, PREALB, PHOS ####[facility] Sr[address]effzank[address] [place] [address]Dr. Simona Maravilla ALT [Catalytic activity/Vol] 37 U/L Normal 16-63 [facility] Comment on above: Performed By: #### M G, CMP, TRIG, PREALB, PHOS ####[facility] Y[address]afsckldt4[address] [place] [address]DrKali Maravilla Anion gap [Moles/Vol] 12.7 mmol/L Normal [facility] Comment on above: Performed By: #### M G, CMP, TRIG, PREALB, PHOS ####[facility] Yxxxmbctgc18[address] [place] [address]Dr. Simona Maravilla AST [Catalytic activity/Vol] 28 U/L Normal 15-37 [facility] Comment on above: Performed By: #### M G, CMP, TRIG, PREALB, PHOS ####[facility] Pdtagrcoiv[address] [place] [address]Dr. Simona Maravilla Bilirubin [Mass/Vol] 0.3 mg/dL Normal 0.2-1.0 [facility] Comment on above: Performed By: #### M G, CMP, TRIG, PREALB, PHOS ####[facility] [address]few[address] [place], [place] [address]Dr. Simona Maravilla Calcium [Mass/Vol] 9.0 mg/dL Normal 8.5-10.[address] [facility] Comment on above: Performed By: #### M G, CMP, TRIG, PREALB, PHOS ####[facility] Wivbjcipqt4[address] [place], [place] [address]Dr. Simona Maravilla Chloride [Moles/Vol] 104 mmol/L Normal 98-107 [facility] Comment on above: Performed By: #### M G, CMP, TRIG, PREALB, PHOS ####[facility] P[address]ikgtcw[address] [place], [place] [address]Dr. Simona Maravilla CO2 [Moles/Vol] 24.3 mmol/L Normal 21.0-32.0 [facility] Comment on above: Performed By: #### M G, CMP, TRIG, PREALB, PHOS ####[facility] [address]ecz[address]uo[address] [place], [place] [address]Dr. Simona Maravilla Creatinine [Mass/Vol] 0.65 mg/dL Critically low 0.70-1.30 [facility] Comment on above: Performed By: #### M G, CMP, TRIG, PREALB, PHOS ####[facility] [address]olhh[address] [place] [address]Dr. Simona Maravilla EGFR-AF BOLIVIAN >60 Normal >=60 [facility] Comment on above: Performed By: #### M G, CMP, TRIG, PREALB, PHOS ####[facility] Tehkhthrlb[address] [place], [place] [address]Dr. Simona Maravilla EGFR-NON AF BOLIVIAN >60 Normal >=60 [facility] Comment on above: Performed By: #### M G, CMP, TRIG, PREALB, PHOS ####[facility] Yfxemblapy[address] [place] [address]Dr. Simona Maravilla Globulin (S) [Mass/Vol] 3.4 g/dL Normal [facility] Comment on above: Performed By: #### M G, CMP, TRIG, PREALB, PHOS ####[facility] [address]piiok[address] [place] [address]Dr. Simona Maravilla Glucose [Mass/Vol] 90 mg/dL Normal 74-[address] [facility] Comment on above: Performed By: #### M G, CMP, TRIG, PREALB, PHOS ####[facility] Ynmqlrmdtw[address] [place], [place] [address]Dr. Simona Maravilla Potassium [Moles/Vol] 4.0 mmol/L Normal 3.5-5.1 [facility] Comment on above: Performed By: #### M G, CMP, TRIG, PREALB, PHOS ####[facility] Wiiucfdbof[address] [place], [place] [address]Dr. Kamilalan Maravilla Protein [Mass/Vol] 7.4 g/dL Normal 6.4-8.[address] [facility] Comment on above: Performed By: #### M G, CMP, TRIG, PREALB, PHOS ####[facility] Sl[address]hmse[address] [place] [address]Dr. Simona Maravilla Sodium [Moles/Vol] 137 mmol/L Normal 136-[address] [facility] Comment on above: Performed By: #### M G, CMP, TRIG, PREALB, PHOS ####[facility] Rdjxkamlkf[address] [place], [place] [address]Dr. Kamilalan Maravilla Urea nitrogen [Mass/Vol] 13.0 mg/dL Normal 7.0-18.0 [facility] Comment on above: Performed By: #### M G, CMP, TRIG, PREALB, PHOS ####[facility] Dcibunrrht[address] [place], [place] [address]Dr. Yilan Maravilla Urea nitrogen/Creatinine [Mass ratio] 20.0 mg/mg Normal [facility] Comment on above: Performed By: #### M G, CMP, TRIG, PREALB, PHOS ####[facility] [address]teacpm[address] [place] [id number]. Simona Maravilla TRIGLYCERIDEon 09-19-2021 Triglyceride [Mass/Vol] 77 mg/dL Normal <=150 [facility] Comment on above: Performed By: #### M G, CMP, TRIG, PREALB, PHOS ####[facility] O[address]fbkxrcy[address] [place] [id number]. Simona Maravilla PREALBUMINon 08-31-2021 Prealbumin [Mass/Vol] 20 mg/dL Normal 12-34 [facility] Comment on above: Performed By: #### P REALBL #### [facility] [address] [place] [address] Dr. Simona Maravilla CBC AUTO DIFFon 08-29-2021 BASO # 0.1 103/ul Normal 0.0-0.1 [facility] Comment on above: Performed By: #### C BC #### [facility] [address] [place] [address] Dr. Simona Maravilla Basophils/100 WBC (Bld) 1.3 % Normal 0.2-2.0 [facility] Comment on above: Performed By: #### C BC #### [facility] [address] [place] [address] Dr. Simona Maravilla EO # 0.3 103/ul Normal 0.0-0.7 [facility] Comment on above: Performed By: #### C BC #### [facility] [address] [place] [address] Dr. Simona Maravilla Eosinophils/100 WBC (Bld) 5.0 % Normal 0.9-7.0 [facility] Comment on above: Performed By: #### C BC #### [facility] [address] [place] [address] Dr. Simona Maravilla Erythrocyte distribution width (RBC) [Ratio] 22.9 % Critically high 11.0-15.0 [facility] Comment on above: Performed By: #### C BC #### [facility] [address] [place] [address] Dr. Simona Maravilla Hematocrit (Bld) [Volume fraction] 50.1 % Normal 42.0-54.0 [facility] Comment on above: Performed By: #### C BC #### [facility] [address] [place] [address] Dr. Simona Maravilla Hemoglobin (Bld) [Mass/Vol] 14.4 g/dL Normal 14.0-18.0 [facility] Comment on above: Performed By: #### C BC #### [facility] [address] [place] [address] Dr. Simona Maravilla IG # 0.03 10e3/ul Normal 0.00-0.03 [facility] Comment on above: Performed By: #### C BC #### [facility] [address] [place] [address] Dr. Simona Maravilla IG % 0.4 % Normal 0.0-0.5 [facility] Comment on above: Performed By: #### C BC #### [facility] [address] [place] [address] Dr. Simona Maravilla LYMPH # 2.0 103/ul Normal 1.2-3.8 [facility] Comment on above: Performed By: #### C BC #### [facility] [address] [place] [address] Dr. Simona Maravilla Lymphocytes/100 WBC (Bld) 29.7 % Normal 20.5-60.0 [facility] Comment on above: Performed By: #### C BC #### [facility] [address] [place] [address] Dr. Simona Maravilla MANUAL DIFF REQ NO Normal [facility] Comment on above: Performed By: #### C BC #### [facility] [address] [place] [address] Dr. Simona Maravilla MCH (RBC) [Entitic mass] 21.6 pg Critically low 25.9-34.0 [facility] Comment on above: Performed By: #### C BC #### [facility] [address] [place] [address] [address] Simona Maravilla MCHC (RBC) [Mass/Vol] 28.7 g/dL Critically low 29.9-35.2 [facility] Comment on above: Result Comment: glendy ht hyopchromia Performed By: #### C BC #### [facility] [address] [place] [address] [address] Simona Maravilla MCV (RBC) [Entitic vol] 75.0 fL Critically low 80.0-94.0 [facility] Comment on above: Performed By: #### C BC #### [facility] [address] [place] [address] Dr. Simona Maravilla MONO # 0.7 103/ul Normal 0.3-0.8 [facility] [facility] Comment on above: Performed By: #### C BC #### [facility] [address] [place] [address] Dr. Simona Maravilla Monocytes/100 WBC (Bld) 10.1 % Normal 1.7-12.0 [facility] Comment on above: Performed By: #### C BC #### [facility] [address] [place] [address] Dr. Simona Maravilla NEUT # 3.7 103/ul Normal 1.4-6.5 [facility] Comment on above: Performed By: #### C BC #### [facility] [address] [place] [address] Dr. Simona Maravilla Neutrophils/100 WBC (Bld) 53.5 % Normal 43.0-75.0 [facility] Comment on above: Performed By: #### C BC #### [facility] [address] [place] [address] Dr. Simona Maravilla Platelet mean volume (Bld) [Entitic vol] 0.0 fL Critically low 9.5-13.5 [facility] Comment on above: Result Comment: unab le to calculate mpv Performed By: #### C BC #### [facility] [address] [place] [address] Dr. Simona Maravilla PLT 287 103/ul Normal 150-450 [facility] Comment on above: Performed By: #### C BC #### [facility] [address] [address] [address] Simona Maravilla RBC 6.68 106/ul Critically high 4.70-6.10 [facility] Comment on above: Performed By: #### C BC #### [facility] [address] [address] [address] Simona Maravilla WBC 6.8 103/ul Normal 4.0-11.0 [facility] Comment on above: Performed By: #### C BC #### [facility] [address] [address] [address] Simona Maravilla MAGNESIUMon 08-29-2021 Magnesium [Mass/Vol] 2.0 mg/dL Normal 1.8-2.4 [facility] Comment on above: Performed By: #### C MP, MG, TRIG, PHOS ####[facility] [address] [address]DrKali Maravilla PHOSPHORUSon 08-29-2021 Phosphate [Mass/Vol] 4.1 mg/dL Normal 2.6-4.7 [facility] Comment on above: Performed By: #### C MP, MG, TRIG, PHOS ####[facility] [address] [address]DrKali Maravilla PROF 14(COMP METB)on 022 Albumin [Mass/Vol] 4.1 g/dL Normal 3.4-5.0 [facility] Comment on above: Performed By: #### C MP, MG, TRIG, PHOS ####[facility] [address] [address]DrKali Maravilla Albumin/Globulin [Mass ratio] 1.1 {ratio} Normal [facility] Comment on above: Performed By: #### C MP, MG, TRIG, PHOS ####[facility] [address] [address]DrKali Maravilla ALP [Catalytic activity/Vol] 141 U/L Critically high 46-116 [facility] Comment on above: Performed By: #### C MP, MG, TRIG, PHOS ####[facility] [address] [address]Dr. Simona Maravilla ALT [Catalytic activity/Vol] 27 U/L Normal 16-63 [facility] Comment on above: Performed By: #### C MP, MG, TRIG, PHOS ####[facility] [address] [address]Dr. Simona Maravilla Anion gap [Moles/Vol] 14.1 mmol/L Normal [facility] Comment on above: Performed By: #### C MP, MG, TRIG, PHOS ####[facility] [address] [address]Dr. Simona Maravilla AST [Catalytic activity/Vol] 33 U/L Normal 15-37 [facility] Comment on above: Performed By: #### C MP, MG, TRIG, PHOS ####[facility] [address] [address]Dr. Simona Maravilla Bilirubin [Mass/Vol] 0.4 mg/dL Normal 0.2-1.0 [facility] Comment on above: Performed By: #### C MP, MG, TRIG, PHOS ####[facility] [address] [place], [place] [address]Dr. Simona Maravilla Calcium [Mass/Vol] 8.7 mg/dL Normal 8.5-10.1 [facility] Comment on above: Performed By: #### C MP, MG, TRIG, PHOS ####[facility] [address] [address]Dr. Simona Maravilla Chloride [Moles/Vol] 108 mmol/L Critically high 98-107 [facility] Comment on above: Performed By: #### C MP, MG, TRIG, PHOS ####[facility] [address] [place], [place] [address]Dr. Simona Maravilla CO2 [Moles/Vol] 23.2 mmol/L Normal 21.0-32.0 [facility] Comment on above: Performed By: #### C MP, MG, TRIG, PHOS ####[facility] [address] [place], [place] [address]Dr. Simona Maravilla Creatinine [Mass/Vol] 0.79 mg/dL Normal 0.70-1.30 [facility] Comment on above: Performed By: #### C MP, MG, TRIG, PHOS ####[facility] [address] [address]Dr. Simona Maravilla EGFR-AF BOLIVIAN >60 Normal >=60 [facility] Comment on above: Performed By: #### C MP, MG, TRIG, PHOS ####[facility] [address] [address]Dr. Simona Maravilla EGFR-NON AF BOLIVIAN >60 Normal >=60 [facility] Comment on above: Performed By: #### C MP, MG, TRIG, PHOS ####[facility] [address] [address]Dr. Simona Maravilla Globulin (S) [Mass/Vol] 3.9 g/dL Normal [facility] Comment on above: Performed By: #### C MP, MG, TRIG, PHOS ####[facility] [address] [place], [place] [address]Dr. Simona Maravilla Glucose [Mass/Vol] 75 mg/dL Normal 74-[address] [facility] Comment on above: Performed By: #### C MP, MG, TRIG, PHOS ####[facility] [address] [address]Dr. Simona Maravilla Potassium [Moles/Vol] 4.3 mmol/L Normal 3.5-5.1 [facility] Comment on above: Performed By: #### C MP, MG, TRIG, PHOS ####[facility] [address] [address]Dr. Simona Maravilla Protein [Mass/Vol] 8.0 g/dL Normal 6.4-8.[address] [facility] Comment on above: Performed By: #### C MP, MG, TRIG, PHOS ####[facility] [address] [place], [place] [address]Dr. Simona Maravilla Sodium [Moles/Vol] 141 mmol/L Normal 136-[address] [facility] Comment on above: Performed By: #### C MP, MG, TRIG, PHOS ####[facility] [address] [address]Dr. Simona Maravilla Urea nitrogen [Mass/Vol] 14.0 mg/dL Normal 7.0-18.0 [facility] Comment on above: Performed By: #### C MP, MG, TRIG, PHOS ####[facility] [address] [address]Dr. Simona Maravilla Urea nitrogen/Creatinine [Mass ratio] 17.7 mg/mg Normal [facility] Comment on above: Performed By: #### C MP, MG, TRIG, PHOS ####[facility] [address] [address]Dr. Simona Maravilla TRIGLYCERIDEon 08-29-2021 Triglyceride [Mass/Vol] 135 mg/dL Normal <=150 [facility] Comment on above: Performed By: #### C MP, MG, TRIG, PHOS ####[facility] [address] [address]Dr. Simona Maravilla XR UPPER GI SINGLE CONTRASTo n 08-25-2021 XR UPPER GI SINGLE CONTRAST * * *Final Report* * * DATE OF EXAM: Aug 25 2021 9:36AM LUX [id number] - XR UPPER GI SINGLE CONTRAST / PROCEDURE REASON: multiple diagnoses * * * * Physician Interpretation * * * * TECHNIQUE: XR UPPER GI SINGLE CONTRAST COMPARISON: No prior study for comparison. TECHNIQUE: Single contrast upper GI was performed with thin barium liquids. CLINICAL INDICATION: Malnutrition of moderate degree (HCC) Gastrogastric fistula Fluoroscopic Radiation Summary: Plane A, Air Kerma: 6.0 mGy Dose Area Product (DAP): 0.0 mGy*cm^2 Fluoro time: 0:04 min:sec IMAGE NUMBER: 3 RESULT: There is narrowing of the gastroesophageal junction. Residual contrast is seen within the esophagus with associated air-fluid level. Small-volume contrast passage is seen through the gastroesophageal junction. IMPRESSION: 1. Significant gastroesophageal junction narrowing related to stricture or stenosis. Lehr Operator: CHRISTIE Transcribe Date/Time: Aug 25 2021 10:13A Dictated by : DIRK BLANKENSHIP MD This examination was interpreted and the report reviewed and electronically signed by: DIRK BLANKENSHIP MD on Aug 25 2021 10:14AM EST [id number] [facility] EGD - THERAPEUTIC, EUS, OR T UBE INTERVENTIONSon 08-08-2021 [facility] Comprehensive metabolic 2000 panelon 07-29-2021 Albumin [Mass/Vol] 4.0 g/dL 3.9 - 4.9 g/dL [facility] ALP [Catalytic activity/Vol] 161 U/L High 38 - 113 U/L [facility] ALT [Catalytic activity/Vol] 35 U/L 10 - 54 U/L [facility] Anion gap [Moles/Vol] 9 mmol/L 9 - 18 mmol/L [facility] AST [Catalytic activity/Vol] 38 U/L 14 - 40 U/L [facility] Bilirubin [Mass/Vol] 0.3 mg/dL 0.2 - 1 .3 mg/dL [facility] Calcium [Mass/Vol] 8.6 mg/dL 8.5 - 10. 2 mg/dL [facility] Chloride [Moles/Vol] 106 mmol/L High 97 - 10 5 mmol/L [facility] CO2 [Moles/Vol] 25 mmol/L 22 - 30 mmol/L [facility] Creatinine [Mass/Vol] 0.67 mg/dL Low 0.73 - 1.22 mg/dL [facility] Estimated Glomerular Filtration Rate 119 mL/min/1.73m >=60 mL/min/1.73m [facility] Glucose [Mass/Vol] 76 mg/dL 74 - 99 mg/dL [facility] Potassium [Moles/Vol] 3.6 mmol/L Low 3.7 - 5.1 mmol/L [facility] Protein [Mass/Vol] 6.7 g/dL 6.3 - 8.0 g/dL [facility] Sodium [Moles/Vol] 140 mmol/L 136 - 144 mmol/L [facility] Urea nitrogen [Mass/Vol] 5 mg/dL Low 9 - 24 mg/dL [facility] IRON + TIBCon 07-29-2021 Iron [Mass/Vol] 128 ug/dL 41 - 186 ug/dL [facility] Iron binding capacity [Mass/Vol] 441 ug/dL High 232 - 386 ug/dL [facility] Iron/TIBC [Molar ratio] 29 % 15 - 57 % [facility] PREALBUMIN BLDon 07-29-2021 Prealbumin [Mass/Vol] 15 mg/dL Low 17 - 36 mg/dL [facility] Vitamin B3on 07-11-2021 Niacin (Vitamin B3) 1.88 ug/mL Normal 0.50-8.45 [facility] Comment on above: Result Comment: (NOT E) Adult Reference Range > or = 10 years: Normal 0.50 - 8.45 ug/mL Low < 0.50 ug/mL High > 8.45 ug/mL Pediatric Reference Range <10 Years: Normal 0.50 - 8.91 ug/mL Low < 0.50 ug/mL High > 8.91 ug/mL The performance characteristics of the listed assay was validated by [facility]. The [place] FDA has not approved or cleared this test. The results of this assay can be used for clinical diagnosis without FDA approval. [facility] is a CLIA certified, CAP accredited laboratory for performing high complexity assays such as this one. Testing Performed at: [facility] [address] [place] [address] Performed By: #### P T, BMPX, MG, SHARON #### [facility] [address] [place] [address] Brokerage Branch Manager: Helio Reed MD Vitamin B1on 07-07-2021 Vitamin B1 118 nmol/L Normal 70-180 [facility] Comment on above: Result Comment: (NOT E) INTERPRETIVE INFORMATION: Vitamin B1, Whole Blood This assay measures the concentration of thiamine diphosphate (TDP), the primary active form of vitamin B1. Approximately 90 percent of vitamin B1 present in whole blood is TDP. Thiamine and thiamine monophosphate, which comprise the remaining 10 percent, are not measured. This test was developed and its performance characteristics determined by [facility]. It has not been cleared or approved by the [place] Food and Drug Administration. This test was performed in a CLIA certified laboratory and is intended for clinical purposes. Performed By: [facility] [address] [place] [id number] Client Sales And Service Officer: Marisol Gray MD Performed By: #### P T, BMPX, MG, SHARON #### [facility] [address] [place] [address] [id number] Brokerage Branch Manager: Helio Reed MD Vitamin B6on 07-06-2021 Vitamin B6 11.9 nmol/L Low 20.0-125.0 [facility] Comment on above: Result Comment: (NOT E) INTERPRETIVE INFORMATION: Vitamin B6 (Pyridoxal 5-Phosphate) Pyridoxal 5'-phosphate measured in a specimen collected following an 8-hour or overnight fast accurately indicates vitamin B6 nutritional status. Non-fasting specimen concentration reflects recent vitamin intake. This test was developed and its performance characteristics determined by [facility]. It has not been cleared or approved by the [place] Food and Drug Administration. This test was performed in a CLIA certified laboratory and is intended for clinical purposes. Performed By: [facility] [address] [place] [id number] Client Sales And Service Officer: Marisol Gray MD Performed By: #### P T, BMPX, MG, SHARON #### [address] [address] Brokerage Branch Manager: Helio Reed MD Vitamin Abdoul 07-06-2021 Alpha-Tocopherol 3.0 mg/L Low 5.5-18.[address] [facility] Comment on above: Result Comment: (NOT E) This test was developed and its performance characteristics determined by [employer]. It has not been cleared or approved by the [place] Food and Drug Administration. This test was performed in a CLIA certified laboratory and is intended for clinical purposes. Performed By: #### P T, BMPX, MG, SHARON #### [facility] [address] [place] [address] [id number] Brokerage Branch Manager: Helio Reed MD Gamma-Tocopherol 1.5 mg/L Normal 0.0-6.[address] [facility] Comment on above: Result Comment: (NOT E) Performed By: [facility] [address] [place] [id number] Client Sales And Service Officer: Marisol Gray MD Performed By: #### P T, BMPX, MG, SHARON #### [address] [id number] Brokerage Branch Manager: Helio Reed MD Seleniumon 07-05-2021 Selenium 112.6 ug/L Normal 23.0-190.0 [facility] Comment on above: Result Comment: (NOT E) INTERPRETIVE INFORMATION: Selenium, Serum or Plasma Elevated results may be due to contamination from skin or other collection-related issues, including the use of a noncertified metal-free collection/transport tube. If contamination concerns exist due to elevated levels of serum/plasma selenium, confirmation with a second specimen collected in a certified metal-free tube is recommended. Serum selenium levels can be used in the determination of deficiency or toxicity. Plasma and serum contains 75 percent of the selenium measured in whole blood and reflects recent dietary intake. Selenium deficiency can occur endemically or as a result of sustained TPN or restricted diets and has been associated with cardiomyopathy and may exacerbate hypothyroidism. Selenium toxicity is relatively rare. Excess intake of selenium can result in symptoms consistent with selenosis and include gastrointestinal upset, hair loss, white blotchy nails, and mild nerve damage. This test was developed and its performance characteristics determined by [employer]. It has not been cleared or approved by the [place] Food and Drug Administration. This test was performed in a CLIA certified laboratory and is intended for clinical purposes. Performed By: [facility] [address] [place] [address] Client Sales And Service Officer: Marisol Gray MD Performed By: #### P T, BMPX, MG, SHARON #### [facility] [address] [place] [address] Brokerage Branch Manager: Helio Reed MD VITAMIN Aon 07-03-2021 Interpretation and review of laboratory results Abnormal [facility] RETINYL PALMITATE <0.02 0.00 - 0.1 0 mg/L [facility] Vitamin A 0.15 mg/L Low 0.30 - 1.20 mg/L [facility] Vitamin A, Interp See Note [facility] Comment on above: (NOTE) Retinol greater than 0.3 mg/L is typically associated with adequate liver stores in adults, and is within normal limits for children. Retinol less than 0.10 mg/L may indicate depleted liver stores and severe deficiency. This test was developed and its performance characteristics determined by [employer]. It has not been cleared or approved by the US Food and Drug Administration. This test was performed in a CLIA certified laboratory and is intended for clinical purposes. Performed By: [facility] [address] [place] [address] Client Sales And Service Officer: Marisol Gray MD [facility] Vitamin Aon 07-03-2021 Interpretation See Note Normal [facility] Comment on above: Result Comment: (NOT E) Retinol greater than 0.3 mg/L is typically associated with adequate liver stores in adults, and is within normal limits for children. Retinol less than 0.10 mg/L may indicate depleted liver stores and severe deficiency. This test was developed and its performance characteristics determined by [employer]. It has not been cleared or approved by the US Food and Drug Administration. This test was performed in a CLIA certified laboratory and is intended for clinical purposes. Performed By: [facility] [address] [place] [address] Client Sales And Service Officer: Marisol Gray MD Performed By: #### P T, BMPX, MG, SHARON #### [address] [id number] Brokerage Branch Manager: Helio Reed MD Retinol (Vitamin A) 0.15 mg/L Low 0.30-1.20 [facility] Comment on above: Performed By: #### P T, BMPX, MG, SHARON #### [facility] [address] [place] [address] [phone] Brokerage Branch Manager: Helio Reed MD Retinyl Palmitate <0.02 Normal 0.00-0.10 [facility] Comment on above: Performed By: #### P T, BMPX, MG, SHARON #### [facility] [address] [place] [address] [phone] Brokerage Branch Manager: Helio Reed MD Basic Metabolic Panelon 06-14 Anion gap [Moles/Vol] 10 mmol/L 9 - 17 mmol/L [facility] Calcium [Mass/Vol] 9.2 mg/dL 8.6 - 10. 4 mg/dL [facility] Chloride [Moles/Vol] 104 mmol/L 98 - 10 7 mmol/L [facility] CO2 [Moles/Vol] 22 mmol/L 20 - 31 mmol/L [facility] Creatinine [Mass/Vol] 0.4 mg/dL Low 0.70 - 1.20 mg/dL [facility] [employer] GFR >60 >60 mL/min [facility] [employer] GFR Non- >60 >60 mL/min [facility] [employer] GFR/1.73 sq M.predicted MDRD (S/P/Bld) [Vol rate/Area] [facility] Comment on above: Average GFR for 40-4 9 years old: 99 mL/min/1.73sq m Chronic Kidney Disease: <60 mL/min/1.73sq m Kidney failure: <15 mL/min/1.73sq m eGFR calculated using average adult body mass. Additional eGFR calculator available at: http://www.[employer]/Icelandic Glacial_crcl_2012.htm Glucose [Mass/Vol] 106 mg/dL High 70 - 99 mg/dL [facility] [employer] Interpretation and review of laboratory results Abnormal [facility] [employer] Potassium [Moles/Vol] 4.5 mmol/L 3.7 - 5.3 mmol/L [facility] [employer] Sodium [Moles/Vol] 136 mmol/L 135 - 144 mmol/L [facility] [employer] Urea nitrogen (BldV) [Mass/Vol] 9 mg/dL 6 - 20 mg/dL [facility] [employer] Basic Metabolic Profon 07-02 (cont.) Normal [facility] Comment on above: Result Comment: Aver age GFR for 40-49 years old: 99 mL/min/1.73sq m Chronic Kidney Disease: <60 mL/min/1.73sq m Kidney failure: <15 mL/min/1.73sq m eGFR calculated using average adult body mass. Additional eGFR calculator available at: http://www.[employer]/multiple_crcl_2011.htm Performed By: #### P T, BMPX, MG, SHARON #### [facility] [address] [place] [address] Brokerage Branch Manager: Helio Reed MD Anion gap [Moles/Vol] 10 mmol/L Normal - [facility] Comment on above: Performed By: #### P T, BMPX, MG, SHARON #### [facility] [address] [place] [address] Brokerage Branch Manager: Helio Reed MD Calcium [Mass/Vol] 9.2 mg/dL Normal 8.6-10.4 [facility] Comment on above: Performed By: #### P T, BMPX, MG, SHARON #### [facility] [address] [place] [id number] Brokerage Branch Manager: Helio Reed MD Chloride [Moles/Vol] 104 mmol/L Normal 98-107 [facility] Comment on above: Performed By: #### P T, BMPX, MG, SHARON #### [address] [address] Brokerage Branch Manager: Helio Reed MD CO2 [Moles/Vol] 22 mmol/L Normal 20-31 [facility] Comment on above: Performed By: #### P T, BMPX, MG, SHARON #### [facility] [address] [place] [id number] Brokerage Branch Manager: Helio Reed MD Creatinine [Mass/Vol] 0.40 mg/dL Low 0.70-1.20 [facility] Comment on above: Performed By: #### P T, BMPX, MG, SHARON #### [facility] [address] [place] [address] Brokerage Branch Manager: Helio Reed MD GFR, Amer >60 Normal >[address] [facility] Comment on above: Performed By: #### P T, BMPX, MG, SHARON #### [facility] [address] [place] [phone] Brokerage Branch Manager: Helio Reed MD GFR,non Amer >60 Normal >60 [facility] Comment on above: Performed By: #### P T, BMPX, MG, SHARON #### [facility] [address] [place] [address] Brokerage Branch Manager: Helio Reed MD Glucose [Mass/Vol] 106 mg/dL High 70-99 [facility] Comment on above: Performed By: #### P T, BMPX, MG, SHARON #### [facility] [address] [place] [id number] Brokerage Branch Manager: Helio Reed MD Potassium [Moles/Vol] 4.5 mmol/L Normal 3.7-5.3 [facility] Comment on above: Performed By: #### P T, BMPX, MG, SHARON #### [facility] [address] [place] [address] Brokerage Branch Manager: Helio Reed MD Sodium [Moles/Vol] 136 mmol/L Normal 135-144 [facility] Comment on above: Performed By: #### P T, BMPX, MG, SHARON #### [facility] [address] [place] [address] [phone] Brokerage Branch Manager: Helio Reed MD Urea nitrogen [Mass/Vol] 9 mg/dL Normal 6-20 [facility] Comment on above: Performed By: #### P T, BMPX, MG, SHARON #### [facility] [address] [place] [id number] Brokerage Branch Manager: Helio Reed MD Calcium, [employer]icon 07-02-2021 Calcium [Moles/Vol] 1.17 mmol/L Normal 1.13-1.33 [facility] Comment on above: Performed By: #### P T, BMPX, MG, SHARON #### [employer] [facility] [address] [place] [id number] Brokerage Branch Manager: Helio Reed MD Calcium, Ionizedon Calcium [Moles/Vol] 1.17 mmol/L 1.13 - 1 .33 mmol/L [facility] Magnesiumon 07-02-2021 Magnesium [Mass/Vol] 2.1 mg/dL Normal 1.6-2.6 [facility] Comment on above: Performed By: #### P T, BMPX, MG, SHARON #### [facility] [address] [place], [place] [phone] Brokerage Branch Manager: Helio Reed MD Magnesium [Mass/Vol] 2.1 mg/dL 1.6 - 2 .6 mg/dL [facility] No Panel Informationon 07-02 [facility] [employer] Phosphoruson 07-02-2021 Phosphate [Mass/Vol] 2.9 mg/dL 2.5 - 4 .5 mg/dL [facility] Phosphorus, Inorg.on 022 Phosphorus, Inorg. 2.9 mg/dL Normal 2.5-4.5 [facility] Comment on above: Performed By: #### P T, BMPX, MG, SHARON #### [facility] [address] [place], [place] [id number] Brokerage Branch Manager: Helio Reed MD TPN PROFILEon 07-01-2021 Anion gap [Moles/Vol] 11 mmol/L 9 - 17 mmol/L [facility] Calcium [Mass/Vol] 8.6 mg/dL 8.6 - 10. 4 mg/dL [facility] [employer] Chloride [Moles/Vol] 109 mmol/L High 98 - 10 7 mmol/L [facility] CO2 [Moles/Vol] 22 mmol/L 20 - 31 mmol/L [facility] Creatinine [Mass/Vol] 0.41 mg/dL Low 0.70 - 1.20 mg/dL [facility] GFR >60 >60 mL/min [facility] GFR Non- >60 >60 mL/min [facility] GFR/1.73 sq M.predicted MDRD (S/P/Bld) [Vol rate/Area] [facility] Comment on above: Average GFR for 40-4 9 years old: 99 mL/min/1.73sq m Chronic Kidney Disease: <60 mL/min/1.73sq m Kidney failure: <15 mL/min/1.73sq m eGFR calculated using average adult body mass. Additional eGFR calculator available at: http://www.[employer].PayAllies/multiple_crcl_2012.htm Glucose [Mass/Vol] 105 mg/dL High 70 - 99 mg/dL [facility] Interpretation and review of laboratory results Abnormal [facility] Magnesium [Mass/Vol] 2.2 mg/dL 1.6 - 2 .6 mg/dL [facility] Phosphate [Mass/Vol] 2.6 mg/dL 2.5 - 4 .5 mg/dL [facility] Potassium [Moles/Vol] 3.9 mmol/L 3.7 - 5.3 mmol/L [facility] Sodium [Moles/Vol] 142 mmol/L 135 - 144 mmol/L [facility] Triglyceride [Mass/Vol] 74 mg/dL <150 [facility] Comment on above: Triglyceride Guidelines: <150 Desirable 150-199 Borderline 200-499 High >499 Very high Based on AHA Guidelines for fasting triglyceride, January 2012. Urea nitrogen (BldV) [Mass/Vol] 9 mg/dL 6 - 20 mg/dL [facility] TPN Profileon 07-01-2021 (cont.) Normal [facility] Comment on above: Result Comment: Aver age GFR for 40-49 years old: 99 mL/min/1.73sq m Chronic Kidney Disease: <60 mL/min/1.73sq m Kidney failure: <15 mL/min/1.73sq m eGFR calculated using average adult body mass. Additional eGFR calculator available at: http://www.HarQen/multiple_crcl_2011.htm Performed By: #### P T, BMPX, MG, SHARON #### [facility] [address] [place] [address] Brokerage Branch Manager: Helio Reed MD Anion gap [Moles/Vol] 11 mmol/L Normal 9-17 [facility] Comment on above: Performed By: #### P T, BMPX, MG, SHARON #### [employer] [address] [place] [address] [phone] Brokerage Branch Manager: Helio Reed MD Calcium [Mass/Vol] 8.6 mg/dL Normal 8.6-10.4 [facility] Comment on above: Performed By: #### P T, BMPX, MG, SHARON #### [employer] [address] [place] [address] Brokerage Branch Manager: Helio Reed MD Chloride [Moles/Vol] 109 mmol/L High 98-107 [facility] Comment on above: Performed By: #### P T, BMPX, MG, SHARON #### [facility] [address] [place] [id number] Brokerage Branch Manager: Heloi Reed MD CO2 [Moles/Vol] 22 mmol/L Normal 20-31 [facility] Comment on above: Performed By: #### P T, BMPX, MG, SHARON #### [facility] [address] [place] [phone] Brokerage Branch Manager: Helio Reed MD Creatinine [Mass/Vol] 0.41 mg/dL Low 0.70-1.20 [facility] Comment on above: Performed By: #### P T, BMPX, MG, SHARON #### [facility] [address] [place] [phone] Brokerage Branch Manager: Helio Reed MD GFR, Amer >60 Normal >[address] [facility] Comment on above: Performed By: #### P T, BMPX, MG, SHARON #### [facility] [address] [place] [phone] Brokerage Branch Manager: Helio Reed MD GFR,non Amer >60 Normal >60 [facility] Comment on above: Performed By: #### P T, BMPX, MG, SHARON #### [facility] [address] [place] [phone] Brokerage Branch Manager: Helio Reed MD Glucose [Mass/Vol] 105 mg/dL High 70-99 [facility] Comment on above: Performed By: #### P T, BMPX, MG, SHARON #### [facility] [address] [place] [phone] Brokerage Branch Manager: Helio Reed MD Magnesium [Mass/Vol] 2.2 mg/dL Normal 1.6-2.6 [facility] Comment on above: Performed By: #### P T, BMPX, MG, SHARON #### [facility] [address] [place] [phone] Brokerage Branch Manager: eHlio Reed MD Phosphorus, Inorg. 2.6 mg/dL Normal 2.5-4.5 [facility] Comment on above: Performed By: #### P T, BMPX, MG, SHARON #### [facility] [address] [place] [address] Brokerage Branch Manager: Helio Reed MD Potassium [Moles/Vol] 3.9 mmol/L Normal 3.7-5.3 [facility] Comment on above: Performed By: #### P T, BMPX, MG, SHARON #### [facility] [employer] [address] [place] [phone] Brokerage Branch Manager: Helio Reed MD Sodium [Moles/Vol] 142 mmol/L Normal 135-144 [facility] Comment on above: Performed By: #### P T, BMPX, MG, SHARON #### [facility] [address] [place] [phone] Brokerage Branch Manager: Helio Reed MD Triglyceride [Mass/Vol] 74 mg/dL Normal <150 [facility] Comment on above: Result Comment: Triglyceride Guidelines: <150 Desirable 150-199 Borderline 200-499 High >499 Very high Based on AHA Guidelines for fasting triglyceride, January 2012. Performed By: #### P T, BMPX, MG, SHARON #### [facility] [address] [place] [phone] Brokerage Branch Manager: Helio Reed MD Urea nitrogen [Mass/Vol] 9 mg/dL Normal 6-20 [facility] Comment on above: Performed By: #### P T, BMPX, MG, SHARON #### [facility] [address] [place] [phone] Brokerage Branch Manager: Helio Reed MD Vitamin D 25 Hydroxyon 07-01 Interpretation and review of laboratory results Abnormal [facility] Vit D, 25-Hydroxy <6.0 Low >29.9 ng/mL [facility] Comment on above: Reference Range: Vitamin D status Range Deficiency <20 ng/mL Mild Deficiency 20-30 ng/mL Sufficiency 30-100 ng/mL Toxicity >100 ng/mL [facility] Vitamin D 25 OHon 07-01-2021 Vitamin D 25 OH <6.0 Low >29.9 [facility] Comment on above: Result Comment: Reference Range: Vitamin D status Range Deficiency <20 ng/mL Mild Deficiency 20-30 ng/mL Sufficiency 30-100 ng/mL Toxicity >100 ng/mL Performed By: #### P T, BMPX, MG, SHARON #### [employer] [address] [place] [phone] Brokerage Branch Manager: Helio Reed MD B12/Folate Panelon 2 Cobalamin (Vitamin B12) [Mass/Vol] 505 pg/mL Normal 232-1245 [facility] Comment on above: Performed By: #### P T, BMPX, MG, SHARON #### [employer] [address] [place] [address] Brokerage Branch Manager: Helio Reed MD Folic Acid 16.1 ng/mL Normal >4.8 [facility] Comment on above: Performed By: #### P T, BMPX, MG, SHARON #### [facility] [address] [place] [phone] Brokerage Branch Manager: Helio Reed MD Basic Metab w/rfx MGon 06-30 (cont.) Normal [facility] Comment on above: Result Comment: Aver age GFR for 40-49 years old: 99 mL/min/1.73sq m Chronic Kidney Disease: <60 mL/min/1.73sq m Kidney failure: <15 mL/min/1.73sq m eGFR calculated using average adult body mass. Additional eGFR calculator available at: http://www.[employer]Allies/multiple_crcl_2011.htm Performed By: #### P T, BMPX, MG, SHARON #### [address] [address] Brokerage Branch Manager: Helio Reed MD Anion gap [Moles/Vol] 10 mmol/L Normal 9-17 [facility] Comment on above: Performed By: #### P T, BMPX, MG, SHARON #### [facility] [employer] [address] [place] [address] Brokerage Branch Manager: Helio Reed MD Calcium [Mass/Vol] 8.6 mg/dL Normal 8.6-10.4 [facility] Comment on above: Performed By: #### P T, BMPX, MG, SHARON #### [address] [address] Brokerage Branch Manager: Helio Reed MD Chloride [Moles/Vol] 107 mmol/L Normal 98-107 [facility] Comment on above: Performed By: #### P T, BMPX, MG, SHARON #### [address] [address] Brokerage Branch Manager: Helio Reed MD CO2 [Moles/Vol] 23 mmol/L Normal 20-31 [facility] Comment on above: Performed By: #### P T, BMPX, MG, SHARON #### [facility] [employer] [address] [place] [address] Brokerage Branch Manager: Helio Reed MD Creatinine [Mass/Vol] 0.49 mg/dL Low 0.70-1.20 [facility] Comment on above: Performed By: #### P T, BMPX, MG, SHARON #### [facility] [employer] [address] [place] [address] Brokerage Branch Manager: Helio Reed MD GFR, Amer >60 Normal >[address] [facility] Comment on above: Performed By: #### P T, BMPX, MG, SHARON #### [facility] [address] [place] [address] Brokerage Branch Manager: Helio Reed MD GFR,non Amer >60 Normal >60 [facility] Comment on above: Performed By: #### P T, BMPX, MG, SHARON #### [facility] [address] [place] [address] Brokerage Branch Manager: Helio Reed MD Glucose [Mass/Vol] 74 mg/dL Normal 70-99 [facility] Comment on above: Performed By: #### P T, BMPX, MG, SHARON #### [facility] [address] [place] [address] Brokerage Branch Manager: Helio Reed MD Potassium [Moles/Vol] 4.0 mmol/L Normal 3.7-5.3 [facility] Comment on above: Performed By: #### P T, BMPX, MG, SHARON #### [facility] [employer] [address] [place] [address] Brokerage Branch Manager: Helio Reed MD Sodium [Moles/Vol] 140 mmol/L Normal 135-144 [facility] Comment on above: Performed By: #### P T, BMPX, MG, SHARON #### [facility] [address] [place] [address] Brokerage Branch Manager: Helio Reed MD Urea nitrogen [Mass/Vol] 8 mg/dL Normal 6-20 [facility] Comment on above: Performed By: #### P T, BMPX, MG, SHARON #### [facility] [employer] [address] [place] [address] Brokerage Branch Manager: Helio Reed MD Basic Metabolic Panel w/ Ref brenda to MGon 06-30-2021 Anion gap [Moles/Vol] 10 mmol/L 9 - 17 mmol/L [facility] Calcium [Mass/Vol] 8.6 mg/dL 8.6 - 10. 4 mg/dL [facility] Chloride [Moles/Vol] 107 mmol/L 98 - 10 7 mmol/L [facility] CO2 [Moles/Vol] 23 mmol/L 20 - 31 mmol/L [facility] Creatinine [Mass/Vol] 0.49 mg/dL Low 0.70 - 1.20 mg/dL [facility] GFR >60 >60 mL/min [facility] GFR Non- >60 >60 mL/min [facility] GFR/1.73 sq M.predicted MDRD (S/P/Bld) [Vol rate/Area] [facility] Comment on above: Average GFR for 40-4 9 years old: 99 mL/min/1.73sq m Chronic Kidney Disease: <60 mL/min/1.73sq m Kidney failure: <15 mL/min/1.73sq m eGFR calculated using average adult body mass. Additional eGFR calculator available at: http://www.HarQen/multiple_crcl_2012.htm Glucose [Mass/Vol] 74 mg/dL 70 - 99 mg/dL [facility] Interpretation and review of laboratory results Abnormal [facility] Potassium [Moles/Vol] 4.0 mmol/L 3.7 - 5.3 mmol/L [facility] Sodium [Moles/Vol] 140 mmol/L 135 - 144 mmol/L [facility] Urea nitrogen (BldV) [Mass/Vol] 8 mg/dL 6 - 20 mg/dL [facility] CBC with Auto Differentialon 06-30-2021 Absolute Eos # 0.17 [facility] th Absolute Immature Granulocyte 0.00 [facility] Absolute Lymph # 1.25 [facility] alth Absolute [place] # 0.46 [facility] lt Basophils (Bld) [#/Vol] 0.06 10*3/uL [facility] Basophils/100 WBC (Bld) 1 % 0 - 2 % [facility] Eosinophils/100 WBC (Bld) 3 % 1 - 4 % [facility] Hematocrit (Bld) [Volume fraction] 41.7 % 40.7 - 50.3 % [facility] Hemoglobin.gastroint estinal spec 1 Ql (Stl) 10.7 g/dL Low 13.0 - 17.0 g/dL [facility] Immature granulocytes/100 WBC (Bld) 0 % 0 [facility] Interpretation and review of laboratory results Abnormal [facility] Lymphocytes/100 WBC (Bld) 22 % Low 24 - 43 % [facility] MCH (RBC) [Entitic mass] 18.7 pg Low 25.2 - 33.5 pg [facility] MCHC (RBC) [Mass/Vol] 25.7 g/dL Low 28.4 - 34.8 g/dL [facility] MCV (RBC) [Entitic vol] 73.0 fL Low 82.6 - 102.9 fL [facility] Monocytes/100 WBC (Bld) 8 % 3 - 12 % [facility] Morphology Ezra (Bld) [Interp] [facility] (Bld) [Interp] MICROCYTOSIS PRESENT [facility] Morphology Ezra (Bld) [Interp] HYPOCHROMIA PRESENT [facility] Morphology Ezra (Bld) [Interp] 1+ ELLIPTOCYTES [facility] Morphology Ezra (Bld) [Interp] 1+ TEARDROPS [facility] NRBC Automated 0.0 0.0 per 100 WBC [facility] Platelets (Bld) [#/Vol] See Reflexed IPF Result [facility] RBC (Bld) [#/Vol] 5.71 10*6/uL 4.21 - 5.7 7 m/uL [facility] Segmented neutrophils/100 WBC (Bld) 66 % High 36 - 65 % [facility] Segs Absolute 3.76 [facility] W[facility] (Bld) [#/Vol] 5.7 10*3/uL [facility] CBC with Diffon 06-30-2021 Abs. Basophil 0.06 k/uL Normal 0.00-0.20 [facility] Comment on above: Performed By: #### I PF, CDP #### [facility] [employer] [address] [place], [place] [phone] Brokerage Branch Manager: Helio Reed MD Abs.Imm.Granulocyte 0.00 k/uL Normal 0.00-0.30 [facility] Comment on above: Performed By: #### I PF, CDP #### [facility] [employer] [address] [place], [place] [phone] Brokerage Branch Manager: Helio Reed MD Abs.Neutrophil (Seg) 3.76 k/uL Normal 1.50-8.10 [facility] Comment on above: Performed By: #### I PF, CDP #### [address] [address] Brokerage Branch Manager: Helio Reed MD Basophils/100 WBC (Bld) 1 % Normal 0-2 [facility] Comment on above: Performed By: #### I PF, CDP #### [place] [address] Brokerage Branch Manager: Helio Reed MD Eosinophils (Bld) [#/Vol] 0.17 10*3/uL Normal 0.00-0.44 [facility] Comment on above: Performed By: #### I PF, CDP #### [place] [address] Brokerage Branch Manager: Helio Reed MD Eosinophils/100 WBC (Bld) 3 % Normal 1-4 [facility] Comment on above: Performed By: #### I PF, CDP #### [place] [address] Brokerage Branch Manager: Helio Reed MD Immature granulocytes/100 WBC (Bld) 0 % Normal 0 [facility] Comment on above: Performed By: #### I PF, CDP #### [place] [address] Brokerage Branch Manager: Helio Reed MD Lymphocytes (Bld) [#/Vol] 1.25 10*3/uL Normal 1.10-3.70 [facility] Comment on above: Performed By: #### I PF, CDP #### [address] [address] Brokerage Branch Manager: Helio Reed MD Lymphocytes/100 WBC (Bld) 22 % Low 24-43 [facility] Comment on above: Performed By: #### I PF, CDP #### [address] [address] Brokerage Branch Manager: Helio Reed MD Monocytes (Bld) [#/Vol] 0.46 10*3/uL Normal 0.10-1.20 [facility] Comment on above: Performed By: #### I PF, CDP #### [address] [address] Brokerage Branch Manager: Helio Reed MD Monocytes/100 WBC (Bld) 8 % Normal 3-12 [facility] Comment on above: Performed By: #### I PF, CDP #### [address] [address] Brokerage Branch Manager: Helio Reed MD Morphology Ezra (Bld) [Interp] ANISOCYTOSIS PRESENT Normal [facility] Comment on above: Result Comment: MICR OCYTOSIS PRESENT HYPOCHROMIA PRESENT 1+ ELLIPTOCYTES 1+ TEARDROPS Performed By: #### I PF, CDP #### [address] [address] Brokerage Branch Manager: Helio Reed MD Neutrophil (Seg) 66 % High 36-[address] [facility] Comment on above: Performed By: #### I PF, CDP #### [address] [address] Brokerage Branch Manager: Helio Reed MD Hematocrit (Bld) [Volume fraction] 41.7 % Normal 40.7-50.3 [facility] Comment on above: Performed By: #### I PF, CDP #### [address] [address] Brokerage Branch Manager: Helio Reed MD Hemoglobin (Bld) [Mass/Vol] 10.7 g/dL Low 13.0-17.0 [facility] Comment on above: Performed By: #### I PF, CDP #### [facility] [employer] [address] [place] [address] Brokerage Branch Manager: Helio Reed MD MCH (RBC) [Entitic mass] 18.7 pg Low 25.2-33.5 [facility] Comment on above: Performed By: #### I PF, CDP #### [address] [address] Brokerage Branch Manager: Helio Reed MD MCHC (RBC) [Mass/Vol] 25.7 g/dL Low 28.4-34.8 [facility] Comment on above: Performed By: #### I PF, CDP #### [address] [address] Brokerage Branch Manager: Helio Reed MD MCV (RBC) [Entitic vol] 73.0 fL Low 82.6-102.9 [facility] Comment on above: Performed By: #### I PF, CDP #### [address] [address] Brokerage Branch Manager: Helio Reed MD NRBC Automated 0.0 per 100 WBC Normal 0.0 [facility] Comment on above: Performed By: #### I PF, CDP #### [address] [address] Brokerage Branch Manager: Helio Reed MD Platelet Count See Reflexed IPF Result Normal 138-453 [facility] Comment on above: Performed By: #### I PF, CDP #### [address] [address] Brokerage Branch Manager: Helio Reed MD RBC (Bld) [#/Vol] 5.71 10*6/uL Normal 4.21-5.77 [facility] Comment on above: Performed By: #### I PF, CDP #### [address] [address] Brokerage Branch Manager: Helio Reed MD WBC (Bld) [#/Vol] 5.7 10*3/uL Normal 3.5-11.3 [facility] Comment on above: Performed By: #### I PF, CDP #### [facility] [address] [place] [address] Brokerage Branch Manager: Helio Reed MD COVID-19, Rapidon 06-30-2021 SARS-CoV-2 (COVID-19) RNA UMESH+probe Ql (Unsp spec) Not detected Not Detected [facility] Comment on above: Rapid NAAT: The specimen is NEGATIVE for SARS-CoV-2, the novel coronavirus associated with COVID-19. The ID NOW COVID-19 assay is designed to detect the virus that causes COVID-19 in patients with signs and symptoms of infection who are suspected of COVID-19. An individual without symptoms of COVID-19 and who is not shedding SARS-CoV-2 virus would expect to have a negative (not detected) result in this assay. Negative results should be treated as presumptive and, if inconsistent with clinical signs and symptoms or necessary for patient management, should be tested with an alternative molecular assay. Negative results do not preclude SARS-CoV-2 infection and should not be used as the sole basis for patient management decisions. 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 TECHNIQUE: Multiple single contrast images of the esophagus, gastroesophageal junction and stomach were obtained following the oral administration of water soluble contrast FLUOROSCOPY DOSE AND TYPE OR TIME AND EXPOSURES: 2.8 minute DAP 49.025 Gycm2 FINDINGS: Focal narrowing at the the bypass junction with resultant dilatation of the esophagus suggesting stenosis. Slow progression of contrast through the esophagus/site of narrowing into the Lauren limb and proximal small bowel. Delayed imaging demonstrates emptying of contrast from the the esophagus and more distal progression into the small bowel. IMPRESSION: Findings suggestive of stenosis as detailed above without definite appreciation of fistula. Findings were discussed with HAYDER PENG at approximately 3:35 pm on 06/30/2021. Interpreted by: Vane Braga MD Signed by: Vane Braga MD 06/30/21 Final result Normal [facility] Findings suggestive of stenosis as detailed above without definite appreciation of fistula. Findings were discussed with HAYDER PENG at approximately 3:35 pm on 06/30/2021. 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 TECHNIQUE: Multiple single contrast images of the esophagus, gastroesophageal junction and stomach were obtained following the oral administration of water soluble contrast FLUOROSCOPY DOSE AND TYPE OR TIME AND EXPOSURES: 2.8 minute DAP 49.025 Gycm2 FINDINGS: Focal narrowing at the the bypass junction with resultant dilatation of the esophagus suggesting stenosis. Slow progression of contrast through the esophagus/site of narrowing into the Lauren limb and proximal small bowel. Delayed imaging demonstrates emptying of contrast from the the esophagus and more distal progression into the small bowel. 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 TECHNIQUE: Multiple single contrast images of the esophagus, gastroesophageal junction and stomach were obtained following the oral administration of water soluble contrast FLUOROSCOPY DOSE AND TYPE OR TIME AND EXPOSURES: 2.8 minute DAP 49.025 Gycm2 FINDINGS: Focal narrowing at the the bypass junction with resultant dilatation of the esophagus suggesting stenosis. Slow progression of contrast through the esophagus/site of narrowing into the Lauren limb and proximal small bowel. Delayed imaging demonstrates emptying of contrast from the the esophagus and more distal progression into the small bowel. IMPRESSION: Findings suggestive of stenosis as detailed above without definite appreciation of fistula. Findings were discussed with HAYDER PENG at approximately 3:35 pm on 06/30/2021. [employer] Phone: Radiology Study observation (narrative) [facility] Work Phone: [place] UGIOrdered By: Vane Acevedo or on 06-30-2021 [facility] Work Phone: Ferritinon 06-30-2021 Ferritin 20 ug/L Low 30-400 [facility] Comment on above: Performed By: #### P T, BMPX, MG, SHARON #### [facility] [employer] [address] [place] [address] [phone] Brokerage Branch Manager: Helio Reed MD Ferritin 20 ug/L Low 30 - 400 ug/L [facility] Immature Platelet Fractionon 06-30-2021 Platelet, Fluorescence 236 [facility] Platelet, Immature Fraction 2.6 % 1.1 - 10.3 % [facility] Iron Binding Cap.on 07-01-19 22 % Fe Saturation 8 % Low 20-55 [facility] Comment on above: Performed By: #### F EBC, FERI #### [facility] [address] [place] [address] [phone] Brokerage Branch Manager: Helio Reed MD #### LUAN ZAMAN, DIANATBEli, AVITB1, AVB3 #### [facility] [address] [place] [address] Brokerage Branch Manager: Alon Young MD Iron [Mass/Vol] 28 ug/dL Low 59-158 [facility] Comment on above: Performed By: #### F EBC, FERI #### [facility] [address] [place] [address] [phone] Brokerage Branch Manager: Helio Reed MD #### LUAN ZAMAN, DIANATB6, AVITB1, AVB3 #### [facility] [address] [place] [address] Brokerage Branch Manager: Alon Young MD Total Fe Binding Cap 340 ug/dL Normal 250-450 [facility] Comment on above: Performed By: #### F EBC, FERI #### [facility] [place], [place] [phone] Brokerage Branch Manager: Helio Reed MD #### LUAN ZAMAN AVITB6, DIANATB1, AVB3 #### [facility] [address] [place], [place] [phone] Brokerage Branch Manager: Alon Young MD Unbound Fe Bind Cap 312 ug/dL Normal 112-347 [facility] Comment on above: Performed By: #### F EBC, FERI #### [address] [phone] Brokerage Branch Manager: Helio Reed MD #### LUAN ZAMAN, DIANATB6, AVITB1, AVB3 #### [facility] [address] [place], [place] [phone] Brokerage Branch Manager: Alon Young MD Iron and TIBCon 06-30-2021 Iron [Mass/Vol] 28 ug/dL Low 59 - 158 ug/dL [facility] Iron Saturation 8 % Low 20 - 55 % [facility] TIBC 340 ug/dL 250 - 450 ug/dL [facility] UIBC 312 ug/dL 112 - 347 ug/dL [facility] Magnesiumon 06-30-2021 Magnesium [Mass/Vol] 2.2 mg/dL Normal 1.6-2.6 [facility] Comment on above: Performed By: #### P T, BMPX, MG, SHARON #### [address] [phone] Brokerage Branch Manager: Helio Reed MD No Panel Informationon 06-30 Interpretation and review of laboratory results Abnormal [facility] Alysa Echols RN 06/30/2021 3:00 PM History/labs/allergi es reviewed Placed by Humberto Echols RN Assisted by MEHREEN Consent signed and obtained by physician Time out performed using two identifiers Catheter type 2 lumen picc Product type Bard 5 Fr double lumen Power[employer]c Lot # [id number] Expiration date 06/13/2022 Catheter size 5 somali Trimmed at 43 cm Total length inserted 36 cm External catheter length 7 cm Location right brachial vein Number of attempts 1 Estimated blood loss 1 ml Pre procedure cardiac Rhythm sinus tachycardia Placement verified by- rhythm vps Max P wave noted by amplitude changes of the P wave, positive blood return, flushes easily Special equipment used- ultrasound, micro-introducer technique and rhythm vps Catheter secured with statlock Dressing applied- Tegaderm CHG Lidocaine administered intradermally conc. 1% 2 mL PICC line education: [ x ] Discussed with patient/Family or POA prior to signing Informed Procedural Consent. Risks and Benefits along with reason for procedure were discussed and teaching was reinforced with an education handout on PICC insertion. [facility] FAQ Catheter Associated Blood Stream Infections and [facility] [id number] REV. 10/26 Nursing and Booklet left at bedside or in chart. Patient (Family or POA) acknowledged understanding of information taught and agreed to procedure. [ ] Was not discussed with patient/family or POA due to pts medical status at time of procedure. pts family or POA not available to discuss PICC education. [facility] FAQ Catheter Associated Blood Stream Infections and [facility] [id number] REV. 10/26 Nursing and Booklet left at bedside or in chart Alysa Echols RN [facility] [place] Phone: [facility] Phone: PLT, Immature Fract.on 06-30 Platelet, Fluoresc. 236 k/uL Normal 138-453 [facility] Comment on above: Performed By: #### I PF, CDP #### [facility] [employer] [address] [place] [id number] Brokerage Branch Manager: Helio Reed MD PLT, Immature Fract. 2.6 % Normal 1.1-10.3 [facility] Comment on above: Performed By: #### I PF, CDP #### [facility] [employer] [address] [place] [address] Brokerage Branch Manager: Helio Reed MD PTon 06-30-2021 INR Coag (PPP) [Relative time] 1.1 {INR} Normal [facility] Comment on above: Result Comment: Therapeutic Range: Moderate Anticoagulant Intensity: INR = 2.0-3.0 High Anticoagulant Intensity: INR = 2.5-3.5 Performed By: #### P T, BMPX, MG, SHARON #### [facility] [employer] [facility] [place], [place] [id number] Brokerage Branch Manager: Helio Reed MD PT Coag (PPP) [Time] 11.2 s Normal 9.1-12.3 [facility] Comment on above: Performed By: #### P T, BMPX, MG, SHARON #### [facility] [employer] [address] [place] [address] [id number] Brokerage Branch Manager: Helio Reed MD Phosphoruson 06-30-2021 Phosphate [Mass/Vol] 3.4 mg/dL 2.5 - 4 .5 mg/dL [facility] Phosphorus, Inorg.on 022 Phosphorus, Inorg. 3.4 mg/dL Normal 2.5-4.5 [facility] Comment on above: Performed By: #### P T, BMPX, MG, SHARON #### [facility] [employer] [address] [place] [address] [id number] Brokerage Branch Manager: Helio Reed MD Protime-INRon 06-30-2021 INR Coag (Bld) [Relative time] 1.1 {INR} [facility] Comment on above: Therapeutic Range: Moderate Anticoagulant Intensity: INR = 2.0-3.0 High Anticoagulant Intensity: INR = 2.5-3.5 [facility] [id number] 06-30-2021 SARS-CoV-2 (COVID-19) RNA UMESH+probe Ql (Unsp spec) Not detected Normal NOTDET [facility] Comment on above: Result Comment: Rapid NAAT: The specimen is NEGATIVE for SARS-CoV-2, the novel coronavirus associated with COVID-19. The ID NOW COVID-19 assay is designed to detect the virus that causes COVID-19 in patients with signs and symptoms of infection who are suspected of COVID-19. An individual without symptoms of COVID-19 and who is not shedding SARS-CoV-2 virus would expect to have a negative (not detected) result in this assay. Negative results should be treated as presumptive and, if inconsistent with clinical signs and symptoms or necessary for patient management, should be tested with an alternative molecular assay. Negative results do not preclude SARS-CoV-2 infection and should not be used as the sole basis for patient management decisions. Fact sheet for Healthcare Providers: https://www.fda.gov/media/799809/download Fact sheet for Patients: https://www.fda.gov/media/045218/download Methodology: Isothermal Nucleic Acid Amplification Performed By: #### C OVRB #### [facility] [employer] [address] [place] [address] Brokerage Branch Manager: Helio Reed MD Vitamin B12 & Folateon 06-30 Cobalamin (Vitamin B12) [Mass/Vol] 505 pg/mL 232 - 1245 pg/mL [facility] Folate 16.1 ng/mL >4.8 [facility] US GI ENDOSCOPIC S AND Ion 0 09-30-2020 GI ENDOSCOPIC S AND I Radiology exam is complete. No Radiologist dictation. Please follow up with ordering provider. Final result Normal [facility] COVID-19Ordered By: Fredo parrish on 08-31-2020 SARS-CoV-2 (COVID-19) RNA UMESH+probe Ql (Unsp spec) Not detected Not Detected [facility] Work Phone: Comment on above: The specimen is NEGATIVE for SARS-CoV-2, the novel coronavirus associated with COVID-19. A negative result does not rule out COVID-19. This test has been authorized by the FDA under an Emergency Use Authorization (EUA) for use by authorized laboratories. [employer] SARS-CoV-2 Reagents for [employer] System are designed to detect the virus that causes COVID-19 in patients with signs and symptoms of infection who are suspected of COVID-19. An individual without symptoms of COVID-19 and who is not shedding SARS-CoV-2 virus would expect to have a negative (not detected) result in this assay. Fact sheet for Healthcare Providers: https://www.fda.gov/media/979628/download Fact sheet for Patients: https://www.fda.gov/media/306681/download METHODOLOGY: RT-PCR SARS-CoV-2 (COVID-19) RNA UMESH+probe Ql (Unsp spec) [facility] [employer] Phone: Source .NASOPHARYNGEAL SWAB [facility] [place] Phone: [facility] [employer] Phone: [id number] 08-31-2020 SARS-CoV-2 (COVID-19) RNA UMESH+probe Ql (Unsp spec) Not detected [facility] Comment on above: Result Comment: The specimen is NEGATIVE for SARS-CoV-2, the novel coronavirus associated with COVID-19. A negative result does not rule out COVID-19. This test has been authorized by the FDA under an Emergency Use Authorization (EUA) for use by authorized laboratories. [employer] SARS-CoV-2 Reagents for [employer] System are designed to detect the virus that causes COVID-19 in patients with signs and symptoms of infection who are suspected of COVID-19. An individual without symptoms of COVID-19 and who is not shedding SARS-CoV-2 virus would expect to have a negative (not detected) result in this assay. Fact sheet for Healthcare Providers: https://www.fda.gov/media/250520/download Fact sheet for Patients: https://www.fda.gov/media/669325/download METHODOLOGY: RT-PCR Performed By: #### C OVID #### [place] [id number] Brokerage Branch Manager: Helio Reed MD [address] [place] [address] Brokerage Branch Manager: Leyla Sandoval MD SARS-CoV-2 (COVID-19) RNA UMESH+probe Ql (Unsp spec) Normal [facility] Comment on above: Performed By: #### C OVID #### [address] [address] Brokerage Branch Manager: Helio Reed MD [address] [place] [address] Brokerage Branch Manager: Leyla Sandoval MD [id number] 08-30-2020 SARS-CoV-2 (COVID-19) RNA UMESH+probe Ql (Unsp spec) .NASOPHARYNGEAL SWAB Normal [facility] Comment on above: Performed By: #### C OVID #### [facility] [address] [place] [address] Brokerage Branch Manager: Helio Reed MD [facility] [address] [place] [address] Brokerage Branch Manager: Leyla Sandoval MD [id number] 08-17-2020 SARS-CoV-2 (COVID-19) RNA UMESH+probe Ql (Unsp spec) Normal [facility] Comment on above: Performed By: #### C OVID #### [facility] [address] [place] [address] Brokerage Branch Manager: Helio Reed MD [facility] [address] [place], [place] [address] [address] Brokerage Branch Manager: Leyla Sandoval MD SARS-CoV-2 (COVID-19) RNA UMESH+probe Ql (Unsp spec) Not detected Normal [facility] Comment on above: Result Comment: The specimen is NEGATIVE for SARS-CoV-2, the novel coronavirus associated with COVID-19. A negative result does not rule out COVID-19. [employer]iana SARS-CoV-2 for use on the [employer]8800 Systems is a real-time RT-PCR test intended for the qualitative detection of nucleic acids from SARS-CoV-2 in clinician-collected nasal, nasopharyngeal, and oropharyngeal swab specimens from individuals who meet COVID-19 clinical and/or epidemiological criteria. [employer]iana SARS-CoV-2 is for use only under Emergency Use Authorization (EUA) in laboratories certified under Clinical Laboratory Improvement Amendments of 1988 (CLIA), 42 U.S.C. ?263a, that meet requirements to perform high or moderate complexity tests. An individual without symptoms of COVID-19 and who is not shedding SARS-CoV-2 virus would expect to have a negative (not detected) result in this assay. Fact sheet for Healthcare Providers: https://www.fda.gov/media/341396/download Fact sheet for Patients: https://www.fda.gov/media/446763/download METHODOLOGY: RT-PCR Performed By: #### C OVID #### [place] [address] [place] [address] Brokerage Branch Manager: Helio Reed MD [facility] [address] [place] [address] [place] [address] Brokerage Branch Manager: Leyla Sandoval MD [id number] 08-16-2020 SARS-CoV-2 (COVID-19) RNA UMESH+probe Ql (Unsp spec) .NASOPHARYNGEAL SWAB Normal [facility] Comment on above: Performed By: #### C OVID #### [place] [address] [place] [address] Brokerage Branch Manager: Helio Reed MD [facility] [address] [place] [address] [place] [address] Brokerage Branch Manager: Leyla Sandoval MD COVID-19Ordered By: Fredo parrish on 08-03-2020 SARS-CoV-2 (COVID-19) RNA UMESH+probe Ql (Unsp spec) [facility] [employer] Phone: SARS-CoV-2 (COVID-19) RNA UMESH+probe Ql (Unsp spec) Not detected Not Detected [facility] [employer] Phone: Comment on above: The specimen is NEGATIVE for SARS-CoV-2, the novel coronavirus associated with COVID-19. A negative result does not rule out COVID-19. Liana SARS-CoV-2 for use on the [employer]88[employer] Systems is a real-time RT-PCR test intended for the qualitative detection of nucleic acids from SARS-CoV-2 in clinician-collected nasal, nasopharyngeal, and oropharyngeal swab specimens from individuals who meet COVID-19 clinical and/or epidemiological criteria. Liana SARS-CoV-2 is for use only under Emergency Use Authorization (EUA) in laboratories certified under Clinical Laboratory Improvement Amendments of 1988 (CLIA), 42 U.S.C. 263a, that meet requirements to perform high or moderate complexity tests. An individual without symptoms of COVID-19 and who is not shedding SARS-CoV-2 virus would expect to have a negative (not detected) result in this assay. Fact sheet for Healthcare Providers: https://www.fda.gov/media/507683/download Fact sheet for Patients: https://www.fda.gov/media/805902/download METHODOLOGY: RT-PCR Source .NASOPHARYNGEAL SWAB [facility] Work Phone: [id number] 08-03-2020 SARS-CoV-2 (COVID-19) RNA UMESH+probe Ql (Unsp spec) Normal [facility] Comment on above: Performed By: #### C OVID #### [facility] [address] [place] [address] Brokerage Branch Manager: Helio Reed MD [facility] [address] [place] [address] Brokerage Branch Manager: Leyla Sandoval MD SARS-CoV-2 (COVID-19) RNA UMESH+probe Ql (Unsp spec) Not detected Normal NOTDET [facility] Comment on above: Result Comment: The specimen is NEGATIVE for SARS-CoV-2, the novel coronavirus associated with COVID-19. A negative result does not rule out COVID-19. Liana SARS-CoV-2 for use on the [employer]88[employer] Systems is a real-time RT-PCR test intended for the qualitative detection of nucleic acids from SARS-CoV-2 in clinician-collected nasal, nasopharyngeal, and oropharyngeal swab specimens from individuals who meet COVID-19 clinical and/or epidemiological criteria. [employer]iana SARS-CoV-2 is for use only under Emergency Use Authorization (EUA) in laboratories certified under Clinical Laboratory Improvement Amendments of 1988 (CLIA), 42 U.S.C. ?263a, that meet requirements to perform high or moderate complexity tests. An individual without symptoms of COVID-19 and who is not shedding SARS-CoV-2 virus would expect to have a negative (not detected) result in this assay. Fact sheet for Healthcare Providers: https://www.fda.gov/media/464617/download Fact sheet for Patients: https://www.fda.gov/media/413299/download METHODOLOGY: RT-PCR Performed By: #### C OVID #### [facility] [address] [place], [place] [id number] Brokerage Branch Manager: Helio Reed MD [facility] [address] [place] [address] Brokerage Branch Manager: Leyla Sandoval MD [id number] 08-02-2020 SARS-CoV-2 (COVID-19) RNA UMESH+probe Ql (Unsp spec) .NASOPHARYNGEAL SWAB Normal [facility] Comment on above: Performed By: #### C OVID #### [facility] [address] [place], [place] [id number] Brokerage Branch Manager: Helio Reed MD [facility] [address] [place] [address] [place] [address] Brokerage Branch Manager: Leyla Sandoval MD COVID-19on 07-20-2020 SARS-CoV-2 [facility] Work Phone: SARS-CoV-2 Not Detected Not Detected [facility] Work Phone: Comment on above: The specimen is NEGATIVE for SARS-CoV-2, the novel coronavirus associated with COVID-19. A negative result does not rule out COVID-19. Liana SARS-CoV-2 for use on the [employer]88[employer] Systems is a real-time RT-PCR test intended for the qualitative detection of nucleic acids from SARS-CoV-2 in clinician-collected nasal, nasopharyngeal, and oropharyngeal swab specimens from individuals who meet COVID-19 clinical and/or epidemiological criteria. Liana SARS-CoV-2 is for use only under Emergency Use Authorization (EUA) in laboratories certified under Clinical Laboratory Improvement Amendments of 1988 (CLIA), 42 U.S.C. 263a, that meet requirements to perform high or moderate complexity tests. An individual without symptoms of COVID-19 and who is not shedding SARS-CoV-2 virus would expect to have a negative (not detected) result in this assay. Fact sheet for Healthcare Providers: https://www.fda.gov/media/499373/download Fact sheet for Patients: https://www.fda.gov/media/284819/download METHODOLOGY: RT-PCR Source .NASOPHARYNGEAL SWAB [facility] Phone: [id number] 07-20-2020 SARS-CoV-2 (COVID-19) RNA UMESH+probe Ql (Unsp spec) Normal [facility] Comment on above: Performed By: #### C OVID #### [facility] [address] [place], [place] [id number] Brokerage Branch Manager: Helio Reed MD [facility] [address] [place] [address] Brokerage Branch Manager: Leyla Sandoval MD SARS-CoV-2 (COVID-19) RNA UMESH+probe Ql (Unsp spec) Not detected Normal NOTDET [facility] Comment on above: Result Comment: The specimen is NEGATIVE for SARS-CoV-2, the novel coronavirus associated with COVID-19. A negative result does not rule out COVID-19. Liana SARS-CoV-2 for use on the [employer]iana 6800/8800 Systems is a real-time RT-PCR test intended for the qualitative detection of nucleic acids from SARS-CoV-2 in clinician-collected nasal, nasopharyngeal, and oropharyngeal swab specimens from individuals who meet COVID-19 clinical and/or epidemiological criteria. Liana SARS-CoV-2 is for use only under Emergency Use Authorization (EUA) in laboratories certified under Clinical Laboratory Improvement Amendments of 1988 (CLIA), 42 U.S.C. ?263a, that meet requirements to perform high or moderate complexity tests. An individual without symptoms of COVID-19 and who is not shedding SARS-CoV-2 virus would expect to have a negative (not detected) result in this assay. Fact sheet for Healthcare Providers: https://www.fda.gov/media/030335/download Fact sheet for Patients: https://www.fda.gov/media/678227/download METHODOLOGY: RT-PCR Performed By: #### C OVID #### [facility] [address] [place] [address] Brokerage Branch Manager: Helio Reed MD [facility] [address] [place] [address] Brokerage Branch Manager: Leyla Sandoval MD [id number] 07-19-2020 SARS-CoV-2 (COVID-19) RNA UMESH+probe Ql (Unsp spec) .NASOPHARYNGEAL SWAB Normal [facility] Comment on above: Performed By: #### C OVID #### [address] [id number] Brokerage Branch Manager: Helio Reed MD [facility] [address] [place], [place] [id number] Brokerage Branch Manager: Leyla Sandoval MD [id number] 07-06-2020 SARS-CoV-2 (COVID-19) RNA UMESH+probe Ql (Unsp spec) Normal [facility] Comment on above: Performed By: #### C OVID #### [address] [address] Brokerage Branch Manager: Helio Reed MD [facility] [address] [facility] [place], [place] [id number] Brokerage Branch Manager: Leyla Sandoval MD SARS-CoV-2 (COVID-19) RNA UMESH+probe Ql (Unsp spec) Not detected Normal [facility] Comment on above: Result Comment: The specimen is NEGATIVE for SARS-CoV-2, the novel coronavirus associated with COVID-19. A negative result does not rule out COVID-19. Liana SARS-CoV-2 for use on the [employer]8800 Systems is a real-time RT-PCR test intended for the qualitative detection of nucleic acids from SARS-CoV-2 in clinician-collected nasal, nasopharyngeal, and oropharyngeal swab specimens from individuals who meet COVID-19 clinical and/or epidemiological criteria. Liana SARS-CoV-2 is for use only under Emergency Use Authorization (EUA) in laboratories certified under Clinical Laboratory Improvement Amendments of 1988 (CLIA), 42 U.S.C. ?263a, that meet requirements to perform high or moderate complexity tests. An individual without symptoms of COVID-19 and who is not shedding SARS-CoV-2 virus would expect to have a negative (not detected) result in this assay. Fact sheet for Healthcare Providers: https://www.fda.gov/media/172985/download Fact sheet for Patients: https://www.fda.gov/media/834049/download METHODOLOGY: RT-PCR Performed By: #### C OVID #### [address] [address] Brokerage Branch Manager: Helio Reed MD [address] [place] [address] Brokerage Branch Manager: MD LV Santoyo-CoV-2on 07-05-2020 SARS-CoV-2 (COVID-19) RNA UMESH+probe Ql (Unsp spec) .NASOPHARYNGEAL SWAB Normal [facility] Comment on above: Performed By: #### C OVID #### [address] [address] Brokerage Branch Manager: Helio Reed MD [address] [place] [address] Brokerage Branch Manager: Leyla Sandoval MD [id number] 06-19-2020 SARS-CoV-2 (COVID-19) RNA UMESH+probe Ql (Unsp spec) [facility] Comment on above: Performed By: #### C OVID #### [address] [address] Brokerage Branch Manager: Helio Reed MD [address] [place] [address] Brokerage Branch Manager: Leyla Sandoval MD SARS-CoV-2 (COVID-19) RNA UMESH+probe Ql (Unsp spec) Not detected Normal [facility] Comment on above: Result Comment: The specimen is NEGATIVE for SARS-CoV-2, the novel coronavirus associated with COVID-19. A negative result does not rule out COVID-19. Liana SARS-CoV-2 for use on the [employer]0/8800 Systems is a real-time RT-PCR test intended for the qualitative detection of nucleic acids from SARS-CoV-2 in clinician-collected nasal, nasopharyngeal, and oropharyngeal swab specimens from individuals who meet COVID-19 clinical and/or epidemiological criteria. Liana SARS-CoV-2 is for use only under Emergency Use Authorization (EUA) in laboratories certified under Clinical Laboratory Improvement Amendments of 1988 (CLIA), 42 U.S.C. ?263a, that meet requirements to perform high or moderate complexity tests. An individual without symptoms of COVID-19 and who is not shedding SARS-CoV-2 virus would expect to have a negative (not detected) result in this assay. Fact sheet for Healthcare Providers: https://www.fda.gov/media/545080/download Fact sheet for Patients: https://www.fda.gov/media/622005/download METHODOLOGY: RT-PCR Performed By: #### C OVID #### [address] [id number] Brokerage Branch Manager: Helio Reed MD [address] [place] [address] Brokerage Branch Manager: Leyla Sandoval MD [id number] 06-18-2020 SARS-CoV-2 (COVID-19) RNA UMESH+probe Ql (Unsp spec) .NASOPHARYNGEAL SWAB Normal [facility] Comment on above: Performed By: #### C OVID #### [address] [id number] Brokerage Branch Manager: Helio Reed MD [address] [place] [address] Brokerage Branch Manager: Leyla Sandoval MD CBC WITH AUTO DIFFERENTIALon 05-27-2020 Basophils (Bld) [#/Vol] 0.00 10*3/uL [facility] Work Phone: Basophils/100 WBC (Bld) 0 % 0 - 2 % [facility] [employer] Phone: Differential Type NOT REPORTED [facility] Phone: Eosinophils (Bld) [#/Vol] 0.09 10*3/uL [employer] Phone: Eosinophils/100 WBC (Bld) 2 % 1 - 4 % [employer] Phone: Erythrocyte distribution width (RBC) [Ratio] 21.5 % High 11.8 - 14.4 % [employer] Phone: Hematocrit (Bld) [Volume fraction] 32.5 % Low 40.7 - 50.3 % [employer] Phone: Hemoglobin (Bld) [Mass/Vol] 10.2 g/dL Low 13 - 17 g/dL [employer] Phone: Immature granulocytes (Bld) [#/Vol] 0.00 10*3/uL [employer] Phone: Immature granulocytes (Bld) [#/Vol] 0 % 0 [employer] Phone: Interpretation and review of laboratory results Abnormal [employer] Phone: Lymphocytes (Bld) [#/Vol] 0.85 10*3/uL Low [employer] Phone: Lymphocytes/100 WBC (Bld) 18 % Low 24 - 44 % [employer] Phone: MCH (RBC) [Entitic mass] 28.6 pg 25.2 - 33.5 pg [employer] Phone: MCHC (RBC) [Mass/Vol] 31.4 g/dL 28.4 - 34.8 g/dL [employer] Phone: MCV (RBC) [Entitic vol] 91.0 fL 82.6 - 102.9 fL [employer] Phone: Monocytes (Bld) [#/Vol] 0.28 10*3/uL [employer] Phone: Monocytes/100 WBC (Bld) 6 % 1 - 7 % [employer] Phone: Morphology Ezra (Bld) [Interp] ANISOCYTOSIS PRESENT [employer] Work Phone: Platelet mean volume (Bld) [Entitic vol] 10.4 fL 8.1 - 13.5 fL [employer] Phone: Platelets (Bld) [#/Vol] 307 10*3/uL [employer] Phone: Platelets (Bld) [#/Vol] NOT REPORTED [employer] Phone: RBC (Bld) [#/Vol] 3.57 10*6/uL Low 4.21 - 5.7 7 m/uL [employer] Phone: RBC morphology finding Nom (Bld) NOT REPORTED [employer] Phone: Segmented neutrophils/100 WBC (Bld) 74 % High 36 - 66 % [employer] Phone: Segs Absolute 3.48 [employer] Work Phone: WBC (Bld) [#/Vol] 0.0 10*3/uL 0.0 per 10 0 WBC [employer] Phone: WBC (Bld) [#/Vol] 4.7 10*3/uL [employer] Phone: WBC Morphology NOT REPORTED [facility] Work Phone: Comprehensive Metabolic Pane l w/ Reflex to MGon 05-27-2020 Albumin [Mass/Vol] 1.8 g/dL Low 3.5 - 5.2 g/dL [employer] Phone: Albumin/Globulin [Mass ratio] 0.7 {ratio} Low [employer] Phone: ALP [Catalytic activity/Vol] 155 U/L High 40 - 129 U/L [employer] Phone: ALT [Catalytic activity/Vol] 35 U/L 5 - 41 U/L [employer] Phone: Anion gap [Moles/Vol] 3 mmol/L Low 9 - 17 mmol/L [employer] Phone: AST [Catalytic activity/Vol] 35 U/L <40 [employer] Phone: Bilirubin Ql (U) 0.33 mg/dL 0.3 - 1.2 mg/dL [employer] Phone: Bun/Cre Ratio NOT REPORTED [facility] Work Phone: Calcium [Mass/Vol] 7.6 mg/dL Low 8.6 - 10. 4 mg/dL [employer] Phone: Chloride [Moles/Vol] 103 mmol/L 98 - 10 7 mmol/L [employer] Phone: CO2 [Moles/Vol] 27 mmol/L 20 - 31 mmol/L [employer] Phone: Creatinine [Mass/Vol] 0.28 mg/dL Low 0.7 - 1.2 mg/dL [employer] Phone: GFR >60 >60 mL/min [employer] Phone: GFR Non- >60 >60 mL/min [employer] Phone: GFR/1.73 sq M predicted among non-blacks MDRD (S/P/Bld) [Vol rate/Area] NOT REPORTED [employer] Phone: GFR/1.73 sq M predicted among non-blacks MDRD (S/P/Bld) [Vol rate/Area] [employer] Phone: Comment on above: Average GFR for 40-4 9 years old: 99 mL/min/1.73sq m Chronic Kidney Disease: <60 mL/min/1.73sq m Kidney failure: <15 mL/min/1.73sq m eGFR calculated using average adult body mass. Additional eGFR calculator available at: http://www.globalrp.com/multiple_crcl_2011.htm Glucose [Mass/Vol] 110 mg/dL High 70 - 99 mg/dL [facility] [place] Phone: Interpretation and review of laboratory results Abnormal [facility] [place] Phone: Potassium [Moles/Vol] 4.5 mmol/L 3.7 - 5.3 mmol/L [facility] [place] Phone: Protein [Mass/Vol] 4.4 g/dL Low 6.4 - 8.3 g/dL [facility] [place] Phone: Sodium [Moles/Vol] 133 mmol/L Low 135 - 144 mmol/L [facility] [place] Phone: Urea nitrogen [Mass/Vol] 10 mg/dL 6 - 20 mg/dL [facility] [place] Phone: Magnesiumon 05-27-2020 Magnesium [Mass/Vol] 2.1 mg/dL 1.6 - 2 .6 mg/dL [facility] [place] Phone: POC Glucose Fingerstickon Glucose [Mass/Vol] 95 mg/dL 75 - 110 mg/dL [facility] [place] Phone: Glucose [Mass/Vol] 99 mg/dL 75 - 110 mg/dL [facility] [place] Phone: Phosphoruson 05-27-2020 Phosphate [Mass/Vol] 2.6 mg/dL 2.5 - 4 .5 mg/dL [facility] [place] Phone: CBC WITH AUTO DIFFERENTIALon 05-26-2020 Basophils (Bld) [#/Vol] 0.00 10*3/uL [facility]: Basophils/100 WBC (Bld) 0 % 0 - 2 % [facility] Phone: Differential Type NOT REPORTED [facility] [place] Phone: Eosinophils (Bld) [#/Vol] 0.48 10*3/uL High [employer] Phone: Eosinophils/100 WBC (Bld) 8 % High 1 - 4 % [employer] Phone: Erythrocyte distribution width (RBC) [Ratio] 21.9 % High 11.8 - 14.4 % [employer] Phone: Hematocrit (Bld) [Volume fraction] 35.8 % Low 40.7 - 50.3 % [employer] Phone: Hemoglobin (Bld) [Mass/Vol] 10.7 g/dL Low 13 - 17 g/dL [employer] Phone: Immature granulocytes (Bld) [#/Vol] 0.00 10*3/uL [employer] Phone: Immature granulocytes (Bld) [#/Vol] 0 % 0 [employer] Phone: Interpretation and review of laboratory results Abnormal [employer] Phone: Lymphocytes (Bld) [#/Vol] 1.74 10*3/uL [employer] Phone: Lymphocytes/100 WBC (Bld) 29 % 24 - 44 % [employer] Phone: MCH (RBC) [Entitic mass] 28.7 pg 25.2 - 33.5 pg [employer] Phone: MCHC (RBC) [Mass/Vol] 29.9 g/dL 28.4 - 34.8 g/dL [employer] Phone: MCV (RBC) [Entitic vol] 96.0 fL 82.6 - 102.9 fL [employer] Phone: Monocytes (Bld) [#/Vol] 0.54 10*3/uL [employer] Phone: Monocytes/100 WBC (Bld) 9 % High 1 - 7 % [employer] Phone: Morphology Ezra (Bld) [Interp] ANISOCYTOSIS PRESENT [employer] Phone: Platelet mean volume (Bld) [Entitic vol] 10.4 fL 8.1 - 13.5 fL [employer] Phone: Platelets (Bld) [#/Vol] 382 10*3/uL [facility] Phone: Platelets (Bld) [#/Vol] NOT REPORTED [facility] Phone: RBC (Bld) [#/Vol] 3.73 10*6/uL Low 4.21 - 5.7 7 m/uL [facility] Phone: RBC morphology finding Nom (Bld) NOT REPORTED [facility] Phone: Segmented neutrophils/100 WBC (Bld) 54 % 36 - 66 % [facility] [place] Phone: Segs Absolute 3.24 [employer] Work Phone: WBC (Bld) [#/Vol] 6.0 10*3/uL [facility] Phone: WBC (Bld) [#/Vol] 0.0 10*3/uL 0.0 per 10 0 WBC [facility] Phone: WBC Morphology NOT REPORTED [facility] Work Phone: COVID-19on 05-26-2020 SARS-CoV-2, Rapid Not Detected Not Detected [facility] [place] Phone: Comment on above: Rapid NAAT: The specimen is NEGATIVE for SARS-CoV-2, the novel coronavirus associated with COVID-19. The ID NOW COVID-19 assay is designed to detect the virus that causes COVID-19 in patients with signs and symptoms of infection who are suspected of COVID-19. An individual without symptoms of COVID-19 and who is not shedding SARS-CoV-2 virus would expect to have a negative (not detected) result in this assay. Negative results should be treated as presumptive and, if inconsistent with clinical signs and symptoms or necessary for patient management, should be tested with an alternative molecular assay. Negative results do not preclude SARS-CoV-2 infection and should not be used as the sole basis for patient management decisions. Fact sheet for Healthcare Providers: https://www.CLEAR.gov/media/921000/download Fact sheet for Patients: https://www.CLEAR.gov/media/706346/download Methodology: Isothermal Nucleic Acid Amplification Source .NASOPHARYNGEAL SWAB [employer] Phone: Calcium, Ionizedon Calcium [Mass/Vol] 1.06 mmol/L Low 1.13 - 1. 33 mmol/L [employer] Phone: Interpretation and review of laboratory results Abnormal [employer] Phone: Comprehensive Metabolic Pane l w/ Reflex to MGon 05-26-2020 Albumin [Mass/Vol] 2 g/dL Low 3.5 - 5.2 g/dL [employer] Phone: Albumin/Globulin [Mass ratio] 0.8 {ratio} Low [employer] Phone: ALP [Catalytic activity/Vol] 154 U/L High 40 - 129 U/L [employer] Phone: ALT [Catalytic activity/Vol] 49 U/L High 5 - 41 U/L [employer] Phone: Anion gap [Moles/Vol] 4 mmol/L Low 9 - 17 mmol/L [employer] Phone: AST [Catalytic activity/Vol] 48 U/L High <40 [employer] Phone: Bilirubin Ql (U) 0.45 mg/dL 0.3 - 1.2 mg/dL [employer] Phone: Bun/Cre Ratio NOT REPORTED [facility] Work Phone: Calcium [Mass/Vol] 7.4 mg/dL Low 8.6 - 10. 4 mg/dL [employer] Phone: Chloride [Moles/Vol] 104 mmol/L 98 - 10 7 mmol/L [employer] Phone: CO2 [Moles/Vol] 27 mmol/L 20 - 31 mmol/L [employer] Phone: Creatinine [Mass/Vol] 0.37 mg/dL Low 0.7 - 1.2 mg/dL [employer] Phone: GFR >60 >60 mL/min [employer] Phone: GFR Non- >60 >60 mL/min [employer] Phone: GFR/1.73 sq M predicted among non-blacks MDRD (S/P/Bld) [Vol rate/Area] [employer] Phone: Comment on above: Average GFR for 40-4 9 years old: 99 mL/min/1.73sq m Chronic Kidney Disease: <60 mL/min/1.73sq m Kidney failure: <15 mL/min/1.73sq m eGFR calculated using average adult body mass. Additional eGFR calculator available at: http://www.HarQen/multiple_crcl_2012.htm GFR/1.73 sq M predicted among non-blacks MDRD (S/P/Bld) [Vol rate/Area] NOT REPORTED [employer] Phone: Glucose [Mass/Vol] 78 mg/dL 70 - 99 mg/dL [facility] [employer] Phone: Interpretation and review of laboratory results Abnormal [employer] Phone: Potassium [Moles/Vol] 4.0 mmol/L 3.7 - 5.3 mmol/L [employer] Phone: Protein [Mass/Vol] 4.6 g/dL Low 6.4 - 8.3 g/dL [employer] Phone: Sodium [Moles/Vol] 135 mmol/L 135 - 144 mmol/L [employer] Phone: Urea nitrogen [Mass/Vol] 9 mg/dL 6 - 20 mg/dL [employer] Phone: IR PICC WO SQ PORT/PUMP > 5 YEARSon 05-26-2020 Successful ultrasound and fluoroscopy guided PICC placement. Okay to use PICC [employer] Phone: PROCEDURE: ULTRASOUND GUIDED VASCULAR ACCESS. FLUOROSCOPY GUIDED PICC PLACEMENT 05/24/2020. HISTORY: Malnutrition SEDATION: None FLUOROSCOPY DOSE AND TYPE OR TIME AND EXPOSURES: Fluoro time 0.5 minutes DAP 53 cGy cm 2 TECHNIQUE: This procedure was performed by Adal Kilpatrick PA-C under direct supervision of Dr. Schmidt. Informed consent was obtained after a detailed explanation of the procedure including risks, benefits, and alternatives. Melville protocol was observed. The right arm was prepped and draped in sterile fashion using maximum sterile barrier technique. Local anesthesia was achieved with lidocaine. A micropuncture needle was used to access the right basilic vein using ultrasound guidance. An ultrasound image demonstrating patency of the vein with needle tip located within it. An image was obtained and stored in PACs. A 0.018 guidewire was used to place a peel-a-way sheath and a 5 [place] by 36 cm dual lumen power PICC was advanced with fluoroscopic guidance with the tip at the cavo-atrial junction. The catheter flushed easily and there was a good blood return. Estimated blood loss was 1 mL. The catheter was secured to the skin. The patient tolerated the procedure well and there were no immediate complications. FINDINGS: Fluoroscopic image demonstrates the tip of the catheter at the cavo-atrial junction. [employer] Phone: Wero, pn Incoming Radiant Results From [facility] [employer] - 05/26/2020 1:17 PM EST PROCEDURE: ULTRASOUND GUIDED VASCULAR ACCESS. FLUOROSCOPY GUIDED PICC PLACEMENT 05/24/2020. HISTORY: Malnutrition SEDATION: None FLUOROSCOPY DOSE AND TYPE OR TIME AND EXPOSURES: Fluoro time 0.5 minutes DAP 53 cGy cm 2 TECHNIQUE: This procedure was performed by Adal Kilpatrick PA-C under direct supervision of Dr. Schmidt. Informed consent was obtained after a detailed explanation of the procedure including risks, benefits, and alternatives. Melville protocol was observed. The right arm was prepped and draped in sterile fashion using maximum sterile barrier technique. Local anesthesia was achieved with lidocaine. A micropuncture needle was used to access the right basilic vein using ultrasound guidance. An ultrasound image demonstrating patency of the vein with needle tip located within it. An image was obtained and stored in PACs. A 0.018 guidewire was used to place a peel-a-way sheath and a 5 [place] by 36 cm dual lumen power PICC was advanced with fluoroscopic guidance with the tip at the cavo-atrial junction. The catheter flushed easily and there was a good blood return. Estimated blood loss was 1 mL. The catheter was secured to the skin. The patient tolerated the procedure well and there were no immediate complications. FINDINGS: Fluoroscopic image demonstrates the tip of the catheter at the cavo-atrial junction. IMPRESSION: Successful ultrasound and fluoroscopy guided PICC placement. Okay to use PICC [employer] Phone: Magnesiumon 05-26-2020 Magnesium [Mass/Vol] 1.9 mg/dL 1.6 - 2 .6 mg/dL [employer] Phone: Otheron 05-26-2020 SARS-CoV-2 [employer] Phone: POC Glucose Fingerstickon Glucose [Mass/Vol] 102 mg/dL 75 - 110 mg/dL [employer] Phone: Glucose [Mass/Vol] 65 mg/dL Low 75 - 110 mg/dL [employer] Phone: Interpretation and review of laboratory results Abnormal [employer] Phone: Phosphoruson 05-26-2020 Phosphate [Mass/Vol] 2.7 mg/dL 2.5 - 4 .5 mg/dL [employer] Phone: CBC WITH AUTO DIFFERENTIALon 05-25-2020 Basophils (Bld) [#/Vol] 0.09 10*3/uL [employer] Phone: Basophils/100 WBC (Bld) 2 % 0 - 2 % [employer] Phone: Differential Type NOT REPORTED [employer] Phone: Eosinophils (Bld) [#/Vol] 0.26 10*3/uL [employer] Phone: Eosinophils/100 WBC (Bld) 6 % High 1 - 4 % [employer] Phone: Erythrocyte distribution width (RBC) [Ratio] 21.7 % High 11.8 - 14.4 % [employer] Phone: Hematocrit (Bld) [Volume fraction] 39.5 % Low 40.7 - 50.3 % [employer] Phone: Hemoglobin (Bld) [Mass/Vol] 12.1 g/dL Low 13 - 17 g/dL [employer] Phone: Immature granulocytes (Bld) [#/Vol] 0.04 10*3/uL [employer] Phone: Immature granulocytes (Bld) [#/Vol] 1 % High 0 [employer] Phone: Interpretation and review of laboratory results Abnormal [employer] Phone: Lymphocytes (Bld) [#/Vol] 0.86 10*3/uL Low [employer] Phone: Lymphocytes/100 WBC (Bld) 20 % Low 24 - 43 % [employer] Phone: MCH (RBC) [Entitic mass] 28.5 pg 25.2 - 33.5 pg [employer] Phone: MCHC (RBC) [Mass/Vol] 30.6 g/dL 28.4 - 34.8 g/dL [employer] Phone: MCV (RBC) [Entitic vol] 92.9 fL 82.6 - 102.9 fL [employer] Phone: Monocytes (Bld) [#/Vol] 0.39 10*3/uL [employer] Phone: Monocytes/100 WBC (Bld) 9 % 3 - 12 % [employer] Phone: Morphology Ezra (Bld) [Interp] ANISOCYTOSIS PRESENT [employer] Phone: Platelet mean volume (Bld) [Entitic vol] 10.1 fL 8.1 - 13.5 fL [employer] Phone: Platelets (Bld) [#/Vol] 371 10*3/uL [employer] Phone: Platelets (Bld) [#/Vol] NOT REPORTED [employer] Phone: RBC (Bld) [#/Vol] 4.25 10*6/uL 4.21 - 5.7 7 m/uL [employer] Phone: RBC morphology finding Nom (Bld) NOT REPORTED [employer] Phone: Segmented neutrophils/100 WBC (Bld) 62 % 36 - 65 % [employer] Phone: Segs Absolute 2[employer]66 [employer] Work Phone: WBC (Bld) [#/Vol] 4.3 10*3/uL [employer] Phone: WBC (Bld) [#/Vol] 0.0 10*3/uL 0.0 per 10 0 WBC [employer] Phone: WBC Morphology NOT REPORTED [employer] Work Phone: Comprehensive Metabolic Pane l w/ Reflex to MGon 05-25-2020 Albumin [Mass/Vol] 2.3 g/dL Low 3.5 - 5.2 g/dL [employer] Phone: Albumin/Globulin [Mass ratio] 0.8 {ratio} Low [employer] Phone: ALP [Catalytic activity/Vol] 196 U/L High 40 - 129 U/L [employer] Phone: ALT [Catalytic activity/Vol] 62 U/L High 5 - 41 U/L [employer] Phone: Anion gap [Moles/Vol] 8 mmol/L Low 9 - 17 mmol/L [employer] Phone: AST [Catalytic activity/Vol] 72 U/L High <40 [employer] Phone: Bilirubin Ql (U) 0.61 mg/dL 0.3 - 1.2 mg/dL [employer] Phone: Bun/Cre Ratio NOT REPORTED [employer] Work Phone: Calcium [Mass/Vol] 7.9 mg/dL Low 8.6 - 10. 4 mg/dL [employer] Phone: Chloride [Moles/Vol] 103 mmol/L 98 - 10 7 mmol/L [employer] Phone: CO2 [Moles/Vol] 25 mmol/L 20 - 31 mmol/L [employer] Phone: Creatinine [Mass/Vol] 0.36 mg/dL Low 0.7 - 1.2 mg/dL [employer] Phone: GFR >60 >60 mL/min [employer] Phone: GFR Non- >60 >60 mL/min [employer] Phone: GFR/1.73 sq M predicted among non-blacks MDRD (S/P/Bld) [Vol rate/Area] [employer] Phone: Comment on above: Average GFR for 40-4 9 years old: 99 mL/min/1.73sq m Chronic Kidney Disease: <60 mL/min/1.73sq m Kidney failure: <15 mL/min/1.73sq m eGFR calculated using average adult body mass. Additional eGFR calculator available at: http://www.[employer].PayAllies/multiple_crcl_2012.htm GFR/1.73 sq M predicted among non-blacks MDRD (S/P/Bld) [Vol rate/Area] NOT REPORTED [employer] Phone: Glucose [Mass/Vol] 105 mg/dL High 70 - 99 mg/dL [facility] [place] Phone: Interpretation and review of laboratory results Abnormal [employer] Phone: Potassium [Moles/Vol] 3.2 mmol/L Low 3.7 - 5.3 mmol/L [facility] Phone: Protein [Mass/Vol] 5.3 g/dL Low 6.4 - 8.3 g/dL [facility] Phone: Sodium [Moles/Vol] 136 mmol/L 135 - 144 mmol/L [employer] Phone: Urea nitrogen [Mass/Vol] 11 mg/dL 6 - 20 mg/dL [employer] Phone: Magnesiumon 05-25-2020 Magnesium [Mass/Vol] 1.9 mg/dL 1.6 - 2 .6 mg/dL [facility] Phone: POC Glucose Fingerstickon Glucose [Mass/Vol] 92 mg/dL 75 - 110 mg/dL [employer] Phone: Glucose [Mass/Vol] 85 mg/dL 75 - 110 mg/dL [facility] Phone: Glucose [Mass/Vol] 102 mg/dL 75 - 110 mg/dL [facility] Phone: Glucose [Mass/Vol] 70 mg/dL Low 75 - 110 mg/dL [facility] Phone: Interpretation and review of laboratory results Abnormal [employer] Phone: Glucose [Mass/Vol] 73 mg/dL Low 75 - 110 mg/dL [facility] Phone: Interpretation and review of laboratory results Abnormal [employer] Phone: Phosphoruson 05-25-2020 Phosphate [Mass/Vol] 3.1 mg/dL 2.5 - 4 .5 mg/dL [employer] Phone: Triglycerideson 05-25-2020 Triglyceride [Mass/Vol] 60 mg/dL <150 [employer] Phone: Comment on above: Triglyceride Guidelines: <150 Desirable 150-199 Borderline 200-499 High >499 Very high Based on AHA Guidelines for fasting triglyceride, January 2012. CBC WITH AUTO DIFFERENTIALon 05-24-2020 Basophils (Bld) [#/Vol] 0.10 10*3/uL [employer] Phone: Basophils/100 WBC (Bld) 2 % 0 - 2 % [employer] Phone: Differential Type NOT REPORTED [employer] Phone: Eosinophils (Bld) [#/Vol] 0.29 10*3/uL [employer] Phone: Eosinophils/100 WBC (Bld) 6 % High 1 - 4 % [employer] Phone: Erythrocyte distribution width (RBC) [Ratio] 22.3 % High 11.8 - 14.4 % [employer] Phone: Hematocrit (Bld) [Volume fraction] 36.0 % Low 40.7 - 50.3 % [employer] Phone: Hemoglobin (Bld) [Mass/Vol] 11.7 g/dL Low 13 - 17 g/dL [employer] Phone: Immature granulocytes (Bld) [#/Vol] 0.00 10*3/uL [employer] Phone: Immature granulocytes (Bld) [#/Vol] 0 % 0 [employer] Phone: Interpretation and review of laboratory results Abnormal [employer] Phone: Lymphocytes (Bld) [#/Vol] 1.57 10*3/uL [employer] Phone: Lymphocytes/100 WBC (Bld) 32 % 24 - 43 % [employer] Phone: MCH (RBC) [Entitic mass] 28.9 pg 25.2 - 33.5 pg [employer] Phone: MCHC (RBC) [Mass/Vol] 32.5 g/dL 28.4 - 34.8 g/dL [employer] Phone: MCV (RBC) [Entitic vol] 88.9 fL 82.6 - 102.9 fL [employer] Phone: Monocytes (Bld) [#/Vol] 0.39 10*3/uL [employer] Phone: Monocytes/100 WBC (Bld) 8 % 3 - 12 % [employer] Phone: Morphology Ezra (Bld) [Interp] ANISOCYTOSIS PRESENT [employer] Work Phone: Platelet mean volume (Bld) [Entitic vol] 10.8 fL 8.1 - 13.5 fL [employer] Phone: Platelets (Bld) [#/Vol] NOT REPORTED [employer] Phone: Platelets (Bld) [#/Vol] 368 10*3/uL [employer] Phone: RBC (Bld) [#/Vol] 4.05 10*6/uL Low 4.21 - 5.7 7 m/uL [employer] Phone: RBC morphology finding Nom (Bld) NOT REPORTED [employer] Phone: Segmented neutrophils/100 WBC (Bld) 52 % 36 - 65 % [employer] Phone: Segs Absolute 2[employer]55 [employer] Work Phone: WBC (Bld) [#/Vol] 4.9 10*3/uL [employer] Work Phone: WBC (Bld) [#/Vol] 0.0 10*3/uL 0.0 per 10 0 WBC [employer] Phone: WBC Morphology NOT REPORTED [employer] [facility] Work Phone: Comprehensive Metabolic Pane l w/ Reflex to MGon 05-24-2020 Albumin [Mass/Vol] 2.1 g/dL Low 3.5 - 5.2 g/dL [employer] Phone: Albumin/Globulin [Mass ratio] 0.7 {ratio} Low [employer] Work Phone: ALP [Catalytic activity/Vol] 171 U/L High 40 - 129 U/L [employer] Work Phone: ALT [Catalytic activity/Vol] 55 U/L High 5 - 41 U/L [employer] Phone: Anion gap [Moles/Vol] 7 mmol/L Low 9 - 17 mmol/L [employer] Work Phone: AST [Catalytic activity/Vol] 66 U/L High <40 [employer] Phone: Bilirubin Ql (U) 0.61 mg/dL 0.3 - 1.2 mg/dL [employer] Phone: Bun/Cre Ratio NOT REPORTED [facility] Work Phone: Calcium [Mass/Vol] 8.1 mg/dL Low 8.6 - 10. 4 mg/dL [employer] Work Phone: Chloride [Moles/Vol] 106 mmol/L 98 - 10 7 mmol/L [employer] Work Phone: CO2 [Moles/Vol] 23 mmol/L 20 - 31 mmol/L [employer] Work Phone: Creatinine [Mass/Vol] 0.5 mg/dL Low 0.7 - 1.2 mg/dL [employer] Phone: GFR >60 >60 mL/min [employer] Phone: GFR Non- >60 >60 mL/min [employer] Phone: GFR/1.73 sq M predicted among non-blacks MDRD (S/P/Bld) [Vol rate/Area] [employer] Phone: Comment on above: Average GFR for 40-4 9 years old: 99 mL/min/1.73sq m Chronic Kidney Disease: <60 mL/min/1.73sq m Kidney failure: <15 mL/min/1.73sq m eGFR calculated using average adult body mass. Additional eGFR calculator available at: http://www.Har[employer]en/multiple_crcl_2012.htm GFR/1.73 sq M predicted among non-blacks MDRD (S/P/Bld) [Vol rate/Area] NOT REPORTED [employer] Phone: Glucose [Mass/Vol] 62 mg/dL Low 70 - 99 mg/dL [employer] Phone: Interpretation and review of laboratory results Abnormal [employer] Phone: Potassium [Moles/Vol] 3.5 mmol/L Low 3.7 - 5.3 mmol/L [employer] Phone: Comment on above: SPECIMEN SLIGHTLY HE MOLYZED, RESULTS MAY BE ADVERSELY AFFECTED. Protein [Mass/Vol] 5.0 g/dL Low 6.4 - 8.3 g/dL [employer] Phone: Sodium [Moles/Vol] 136 mmol/L 135 - 144 mmol/L [employer] Phone: Urea nitrogen [Mass/Vol] 17 mg/dL 6 - 20 mg/dL [employer] Phone: Ferritinon 05-24-2020 Ferritin [Mass/Vol] 34 ug/L 30 - 400 ug/L [facility] [employer] Work Phone: Iron and TIBCon 05-24-2020 Interpretation and review of laboratory results Abnormal [facility] [employer] Phone: Iron [Mass/Vol] 52 ug/dL Low 59 - 158 ug/dL [facility] [employer] Phone: Iron Saturation 31 % 20 - 55 % [facility] Work Phone: TIBC 168 ug/dL Low 250 - 450 ug/dL [facility]: UIBC 116 ug/dL 112 - 347 ug/dL [facility] [employer] Phone: Magnesiumon 05-24-2020 Magnesium [Mass/Vol] 1.7 mg/dL 1.6 - 2 .6 mg/dL [facility] [employer] Phone: Protime-INRon 05-24-2020 INR Coag (PPP) [Relative time] 1.2 {INR} [facility] [employer] Phone: Comment on above: Therapeutic Range: Moderate Anticoagulant Intensity: INR = 2.0-3.0 High Anticoagulant Intensity: INR = 2.5-3.5 Interpretation and review of laboratory results Abnormal [facility] [employer] Phone: PT Coag (PPP) [Time] 12.6 s High [facility] [employer] Phone: TPN PROFILEon 05-24-2020 Anion gap [Moles/Vol] 10 mmol/L 9 - 17 mmol/L [facility] [employer] Phone: Bun/Cre Ratio NOT REPORTED [facility] Work Phone: Calcium [Mass/Vol] 7.7 mg/dL Low 8.6 - 10. 4 mg/dL [facility] Phone: Chloride [Moles/Vol] 101 mmol/L 98 - 10 7 mmol/L [facility] Phone: CO2 [Moles/Vol] 22 mmol/L 20 - 31 mmol/L [employer] Phone: Creatinine [Mass/Vol] 0.46 mg/dL Low 0.7 - 1.2 mg/dL [employer] Phone: GFR >60 >60 mL/min [employer] Phone: GFR Non- >60 >60 mL/min [employer] Phone: GFR/1.73 sq M predicted among non-blacks MDRD (S/P/Bld) [Vol rate/Area] NOT REPORTED [employer] Phone: GFR/1.73 sq M predicted among non-blacks MDRD (S/P/Bld) [Vol rate/Area] [employer] Phone: Comment on above: Average GFR for 40-4 9 years old: 99 mL/min/1.73sq m Chronic Kidney Disease: <60 mL/min/1.73sq m Kidney failure: <15 mL/min/1.73sq m eGFR calculated using average adult body mass. Additional eGFR calculator available at: http://www.Har[employer]en/Icelandic Glacial_crcl_2011.htm Glucose [Mass/Vol] 50 mg/dL Low 70 - 99 mg/dL [employer] Phone: Interpretation and review of laboratory results Abnormal [employer] Phone: Magnesium [Mass/Vol] 1.8 mg/dL 1.6 - 2 .6 mg/dL [employer] Phone: Phosphate [Mass/Vol] 3.6 mg/dL 2.5 - 4 .5 mg/dL [employer] Phone: Potassium [Moles/Vol] 3.1 mmol/L Low 3.7 - 5.3 mmol/L [employer] Phone: Sodium [Moles/Vol] 133 mmol/L Low 135 - 144 mmol/L [employer] Phone: Triglyceride [Mass/Vol] 55 mg/dL <150 [employer] Phone: Comment on above: Triglyceride Guidelines: <150 Desirable 150-199 Borderline 200-499 High >499 Very high Based on AHA Guidelines for fasting triglyceride, January 2012. Urea nitrogen [Mass/Vol] 15 mg/dL 6 - 20 mg/dL [employer] Phone: VITAMIN B12 & FOLATEon 05-24 Cobalamin (Vitamin B12) [Mass/Vol] 565 pg/mL 232 - 1245 pg/mL [employer] Phone: Folate 14.7 ng/mL >4.8 [employer] Phone: CBC WITH AUTO DIFFERENTIALon 05-23-2020 Basophils (Bld) [#/Vol] 0.00 10*3/uL [employer] Phone: Basophils/100 WBC (Bld) 0 % 0 - 2 % [employer] Phone: Differential Type NOT REPORTED [employer] Phone: Eosinophils (Bld) [#/Vol] 0.23 10*3/uL [employer] Phone: Eosinophils/100 WBC (Bld) 4 % 1 - 4 % [employer] Phone: Erythrocyte distribution width (RBC) [Ratio] 22.8 % High 11.8 - 14.4 % [employer] Phone: Hematocrit (Bld) [Volume fraction] 36.3 % Low 40.7 - 50.3 % [employer] Phone: Hemoglobin (Bld) [Mass/Vol] 11.1 g/dL Low 13 - 17 g/dL [employer] Phone: Immature granulocytes (Bld) [#/Vol] 0 % 0 [employer] Phone: Immature granulocytes (Bld) [#/Vol] 0.00 10*3/uL [employer] Phone: Interpretation and review of laboratory results Abnormal [employer] Phone: Lymphocytes (Bld) [#/Vol] 2.00 10*3/uL [employer] Phone: Lymphocytes/100 WBC (Bld) 35 % 24 - 44 % [employer] Phone: MCH (RBC) [Entitic mass] 28.2 pg 25.2 - 33.5 pg [employer] Phone: MCHC (RBC) [Mass/Vol] 30.6 g/dL 28.4 - 34.8 g/dL [employer] Phone: MCV (RBC) [Entitic vol] 92.4 fL 82.6 - 102.9 fL [employer] Phone: Monocytes (Bld) [#/Vol] 0.23 10*3/uL [employer] Phone: Monocytes/100 WBC (Bld) 4 % 1 - 7 % [employer] Phone: Morphology Ezra (Bld) [Interp] ANISOCYTOSIS PRESENT [employer] Work Phone: Platelet mean volume (Bld) [Entitic vol] 9.9 fL 8.1 - 13.5 fL [employer] Phone: Platelets (Bld) [#/Vol] NOT REPORTED [employer] Phone: Platelets (Bld) [#/Vol] 416 10*3/uL [employer] Phone: RBC (Bld) [#/Vol] 3.93 10*6/uL Low 4.21 - 5.7 7 m/uL [employer] Phone: RBC morphology finding Nom (Bld) NOT REPORTED [employer] Phone: Segmented neutrophils/100 WBC (Bld) 57 % 36 - 66 % [employer] Phone: Segs Absolute 3.24 [employer] [facility] Work Phone: WBC (Bld) [#/Vol] 5.7 10*3/uL [employer] Work Phone: WBC (Bld) [#/Vol] 0.0 10*3/uL 0.0 per 10 0 WBC [employer] Work Phone: WBC Morphology NOT REPORTED [employer] [facility] Work Phone: Comprehensive Metabolic Pane l w/ Reflex to MGon 05-23-2020 Albumin [Mass/Vol] 2 g/dL Low 3.5 - 5.2 g/dL [employer] Work Phone: Albumin/Globulin [Mass ratio] 0.7 {ratio} Low [employer] Work Phone: ALP [Catalytic activity/Vol] 171 U/L High 40 - 129 U/L [employer] Work Phone: ALT [Catalytic activity/Vol] 51 U/L High 5 - 41 U/L [employer] Phone: Anion gap [Moles/Vol] 9 mmol/L 9 - 17 mmol/L [employer] Work Phone: AST [Catalytic activity/Vol] 47 U/L High <40 [employer] Phone: Bilirubin Ql (U) 0.54 mg/dL 0.3 - 1.2 mg/dL [employer] Work Phone: Bun/Cre Ratio NOT REPORTED [facility] Work Phone: Calcium [Mass/Vol] 7.4 mg/dL Low 8.6 - 10. 4 mg/dL [employer] Phone: Chloride [Moles/Vol] 107 mmol/L 98 - 10 7 mmol/L [employer] Phone: CO2 [Moles/Vol] 20 mmol/L 20 - 31 mmol/L [employer] Phone: Creatinine [Mass/Vol] 0.45 mg/dL Low 0.7 - 1.2 mg/dL [employer] Phone: GFR >60 >60 mL/min [employer] Phone: GFR Non- >60 >60 mL/min [employer] Phone: GFR/1.73 sq M predicted among non-blacks MDRD (S/P/Bld) [Vol rate/Area] NOT REPORTED [employer] Phone: GFR/1.73 sq M predicted among non-blacks MDRD (S/P/Bld) [Vol rate/Area] [employer] Phone: Comment on above: Average GFR for 40-4 9 years old: 99 mL/min/1.73sq m Chronic Kidney Disease: <60 mL/min/1.73sq m Kidney failure: <15 mL/min/1.73sq m eGFR calculated using average adult body mass. Additional eGFR calculator available at: http://www.HarQen/multiple_crcl_2012.htm Glucose [Mass/Vol] 77 mg/dL 70 - 99 mg/dL [employer] Phone: Interpretation and review of laboratory results Abnormal [employer] Phone: Potassium [Moles/Vol] 3.5 mmol/L Low 3.7 - 5.3 mmol/L [employer] Phone: Protein [Mass/Vol] 4.8 g/dL Low 6.4 - 8.3 g/dL [employer] Phone: Sodium [Moles/Vol] 136 mmol/L 135 - 144 mmol/L [employer] Phone: Urea nitrogen [Mass/Vol] 17 mg/dL 6 - 20 mg/dL [employer] Phone: Magnesiumon 05-23-2020 Magnesium [Mass/Vol] 1.7 mg/dL 1.6 - 2 .6 mg/dL [employer] Phone: XR ABDOMEN (KUB) (SINGLE AP VIEW)on 05-23-2020 [facility], [facility] Incoming Radiant Results From [facility] - 05/23/2020 10:27 PM EST EXAMINATION: ONE SUPINE XRAY VIEW(S) OF THE ABDOMEN 05/23/2020 9:57 pm COMPARISON: 04/10/2020 HISTORY: ORDERING SYSTEM PROVIDED HISTORY: SBO TECHNOLOGIST PROVIDED HISTORY: SBO Reason for Exam: supine FINDINGS: There are mildly distended loops of small bowel. There is oral contrast within the colon. No nephrolithiasis. There is contrast within the renal collecting system. Prior cholecystectomy. IMPRESSION: 1. Mildly distended loops of small bowel, which could be seen with obstruction or ileus. 2. Oral contrast within the colon. [employer] Phone: EXAMINATION: ONE SUPINE XRAY VIEW(S) OF THE ABDOMEN 05/23/2020 9:57 pm COMPARISON: 04/10/2020 HISTORY: ORDERING SYSTEM PROVIDED HISTORY: SBO TECHNOLOGIST PROVIDED HISTORY: SBO Reason for Exam: supine FINDINGS: There are mildly distended loops of small bowel. There is oral contrast within the colon. No nephrolithiasis. There is contrast within the renal collecting system. Prior cholecystectomy. [employer] Phone: 1. Mildly distended loops of small bowel, which could be seen with obstruction or ileus. 2. Oral contrast within the colon. [employer] Phone: Basic Metabolic Panelon 12-2 Anion gap [Moles/Vol] 8 mmol/L Low 9 - 17 mmol/L [facility] [place] Bun/Cre Ratio NOT REPORTED [place] Calcium [Mass/Vol] 7.6 mg/dL Low 8.6 - 10. 4 mg/dL [place], [place] Chloride [Moles/Vol] 105 mmol/L 98 - 10 7 mmol/L [place] CO2 [Moles/Vol] 22 mmol/L 20 - 31 mmol/L [place] Creatinine [Mass/Vol] 0.49 mg/dL Low 0.7 - 1.2 mg/dL [place] GFR >60 >60 mL/min [place] GFR Non- >60 >60 mL/min [place] GFR/1.73 sq M predicted among non-blacks MDRD (S/P/Bld) [Vol rate/Area] [place], [place] Comment on above: Average GFR for 40-4 9 years old: 99 mL/min/1.73sq m Chronic Kidney Disease: <60 mL/min/1.73sq m Kidney failure: <15 mL/min/1.73sq m eGFR calculated using average adult body mass. Additional eGFR calculator available at: http://www.HarQen/multiple_crcl_2012.htm GFR/1.73 sq M predicted among non-blacks MDRD (S/P/Bld) [Vol rate/Area] NOT REPORTED [place], [place] Glucose [Mass/Vol] 72 mg/dL 70 - 99 mg/dL [place] Interpretation and review of laboratory results Abnormal [place] Potassium [Moles/Vol] 4.2 mmol/L 3.7 - 5.3 mmol/L [place] Sodium [Moles/Vol] 135 mmol/L 135 - 144 mmol/L [place] Urea nitrogen [Mass/Vol] 14 mg/dL 6 - 20 mg/dL [place] CBCon 04-12-2020 Erythrocyte distribution width (RBC) [Ratio] 25.5 % High 11.8 - 14.4 % [place] Hematocrit (Bld) [Volume fraction] 35.6 % Low 40.7 - 50.3 % [place] Hemoglobin (Bld) [Mass/Vol] 10.4 g/dL Low 13 - 17 g/dL [place] Interpretation and review of laboratory results Abnormal [place] MCH (RBC) [Entitic mass] 23.9 pg Low 25.2 - 33.5 pg [place] MCHC (RBC) [Mass/Vol] 29.2 g/dL 28.4 - 34.8 g/dL [place] MCV (RBC) [Entitic vol] 81.7 fL Low 82.6 - 102.9 fL [place] Platelet mean volume (Bld) [Entitic vol] 9.2 fL 8.1 - 13.5 fL [place] Platelets (Bld) [#/Vol] 770 10*3/uL [place] RBC (Bld) [#/Vol] 4.36 10*6/uL 4.21 - 5.7 7 m/uL [place] WBC (Bld) [#/Vol] 0.0 10*3/uL 0.0 per 10 0 WBC [place] WBC (Bld) [#/Vol] 8.0 10*3/uL [place] Otheron 04-12-2020 Interpretation and review of laboratory results Abnormal [place], [place] POC Glucose Fingerstickon Glucose [Mass/Vol] 27 mg/dL Critically low 75 - 11 0 mg/dL [place] Glucose [Mass/Vol] mg/dL Critically low 75 - 11 0 mg/dL [place] Basic Metabolic Panelon 03-17 Anion gap [Moles/Vol] 8 mmol/L Low 9 - 17 mmol/L [place] Bun/Cre Ratio NOT REPORTED [place] Calcium [Mass/Vol] 7.5 mg/dL Low 8.6 - 10. 4 mg/dL [place] Chloride [Moles/Vol] 103 mmol/L 98 - 10 7 mmol/L [place] CO2 [Moles/Vol] 22 mmol/L 20 - 31 mmol/L [place] Creatinine [Mass/Vol] 0.43 mg/dL Low 0.7 - 1.2 mg/dL [place] GFR >60 >60 mL/min [place] GFR Non- >60 >60 mL/min [place] GFR/1.73 sq M predicted among non-blacks MDRD (S/P/Bld) [Vol rate/Area] NOT REPORTED [place] GFR/1.73 sq M predicted among non-blacks MDRD (S/P/Bld) [Vol rate/Area] [place] Comment on above: Average GFR for 40-4 9 years old: 99 mL/min/1.73sq m Chronic Kidney Disease: <60 mL/min/1.73sq m Kidney failure: <15 mL/min/1.73sq m eGFR calculated using average adult body mass. Additional eGFR calculator available at: http://www.HarQen/multiple_crcl_2012.htm Glucose [Mass/Vol] 69 mg/dL Low 70 - 99 mg/dL [place] Interpretation and review of laboratory results Abnormal [place] Potassium [Moles/Vol] 3.9 mmol/L 3.7 - 5.3 mmol/L [place] Sodium [Moles/Vol] 133 mmol/L Low 135 - 144 mmol/L [place] Urea nitrogen [Mass/Vol] 12 mg/dL 6 - 20 mg/dL [place] CBCon 04-11-2020 Erythrocyte distribution width (RBC) [Ratio] 25.4 % High 11.8 - 14.4 % [place] Hematocrit (Bld) [Volume fraction] 36.0 % Low 40.7 - 50.3 % [place] Hemoglobin (Bld) [Mass/Vol] 10.5 g/dL Low 13 - 17 g/dL [place] Interpretation and review of laboratory results Abnormal [place] MCH (RBC) [Entitic mass] 23.3 pg Low 25.2 - 33.5 pg [place] MCHC (RBC) [Mass/Vol] 29.2 g/dL 28.4 - 34.8 g/dL [place] MCV (RBC) [Entitic vol] 79.8 fL Low 82.6 - 102.9 fL [place] Platelet mean volume (Bld) [Entitic vol] 9.5 fL 8.1 - 13.5 fL [place] Platelets (Bld) [#/Vol] 779 10*3/uL [place] RBC (Bld) [#/Vol] 4.51 10*6/uL 4.21 - 5.7 7 m/uL [place] WBC (Bld) [#/Vol] 8.8 10*3/uL [place] WBC (Bld) [#/Vol] 0.0 10*3/uL 0.0 per 10 0 WBC [place] FL SMALL BOWEL FOLLOW THROUG H ONLYon 04-11-2020 [facility], [facility] Incoming Radiant Results From [facility] - 04/11/2020 9:40 AM EST EXAMINATION: SMALL BOWEL FOLLOW THROUGH SERIES 04/10/2020 TECHNIQUE: Small bowel follow through series was performed with overhead images. COMPARISON: Upper GI with small-bowel study in 03/1920, CT abdomen pelvis 04/02/2020 HISTORY: ORDERING SYSTEM PROVIDED HISTORY: Concern SBO vs. partial FINDINGS: Redemonstration of multiple markedly dilated proximal small bowel loops measuring up to approximately 8.5 cm. No evidence of obstruction or as contrast reaches the colon by approximately 1 hour. Subsequent imaging at 1 hour and 45 minutes demonstrates progression of contrast through the colon however large amount of contrast still remains within the dilated proximal small bowel loops. IMPRESSION: Redemonstration of markedly dilated proximal small bowel loops but without evidence of obstruction as contrast reaches the colon within 1 hour. Consider follow-up abdominal radiographs to assess progression of contrast as clinically warranted. [place] Redemonstration of markedly dilated proximal small bowel loops but without evidence of obstruction as contrast reaches the colon within 1 hour. Consider follow-up abdominal radiographs to assess progression of contrast as clinically warranted. [place] EXAMINATION: SMALL BOWEL FOLLOW THROUGH SERIES 04/10/2020 TECHNIQUE: Small bowel follow through series was performed with overhead images. COMPARISON: Upper GI with small-bowel study in 03/1920, CT abdomen pelvis 04/02/2020 HISTORY: ORDERING SYSTEM PROVIDED HISTORY: Concern SBO vs. partial FINDINGS: Redemonstration of multiple markedly dilated proximal small bowel loops measuring up to approximately 8.5 cm. No evidence of obstruction or as contrast reaches the colon by approximately 1 hour. Subsequent imaging at 1 hour and 45 minutes demonstrates progression of contrast through the colon however large amount of contrast still remains within the dilated proximal small bowel loops. [place], [place] POC Glucose Fingerstickon Glucose [Mass/Vol] 77 mg/dL 75 - 110 mg/dL [place] Glucose [Mass/Vol] 82 mg/dL 75 - 110 mg/dL [place] Basic Metabolic Panelon - Anion gap [Moles/Vol] 8 mmol/L Low 9 - 17 mmol/L [place] Bun/Cre Ratio NOT REPORTED [place] Calcium [Mass/Vol] 7.5 mg/dL Low 8.6 - 10. 4 mg/dL [place] Chloride [Moles/Vol] 106 mmol/L 98 - 10 7 mmol/L [place] CO2 [Moles/Vol] 22 mmol/L 20 - 31 mmol/L [place] Creatinine [Mass/Vol] 0.33 mg/dL Low 0.7 - 1.2 mg/dL [place] GFR >60 >60 mL/min [place] GFR Non- >60 >60 mL/min [place] GFR/1.73 sq M predicted among non-blacks MDRD (S/P/Bld) [Vol rate/Area] [place] Comment on above: Average GFR for 40-4 9 years old: 99 mL/min/1.73sq m Chronic Kidney Disease: <60 mL/min/1.73sq m Kidney failure: <15 mL/min/1.73sq m eGFR calculated using average adult body mass. Additional eGFR calculator available at: http://www.[employer]/multiple_crcl_2012.htm GFR/1.73 sq M predicted among non-blacks MDRD (S/P/Bld) [Vol rate/Area] NOT REPORTED [place] Glucose [Mass/Vol] 57 mg/dL Low 70 - 99 mg/dL [place] Interpretation and review of laboratory results Abnormal [place] Potassium [Moles/Vol] 4.0 mmol/L 3.7 - 5.3 mmol/L [place] Sodium [Moles/Vol] 136 mmol/L 135 - 144 mmol/L [place] Urea nitrogen [Mass/Vol] 12 mg/dL 6 - 20 mg/dL [place] CBCon 04-10-2020 Erythrocyte distribution width (RBC) [Ratio] 25.2 % High 11.8 - 14.4 % [place] Hematocrit (Bld) [Volume fraction] 33.4 % Low 40.7 - 50.3 % [place] Hemoglobin (Bld) [Mass/Vol] 9.9 g/dL Low 13 - 17 g/dL [place] Interpretation and review of laboratory results Abnormal [place] MCH (RBC) [Entitic mass] 23.3 pg Low 25.2 - 33.5 pg [place] MCHC (RBC) [Mass/Vol] 29.6 g/dL 28.4 - 34.8 g/dL [place] MCV (RBC) [Entitic vol] 78.8 fL Low 82.6 - 102.9 fL [place] Platelet mean volume (Bld) [Entitic vol] 9.8 fL 8.1 - 13.5 fL [place] Platelets (Bld) [#/Vol] 637 10*3/uL [place] RBC (Bld) [#/Vol] 4.24 10*6/uL 4.21 - 5.7 7 m/uL [place] WBC (Bld) [#/Vol] 7.4 10*3/uL [place] WBC (Bld) [#/Vol] 0.0 10*3/uL 0.0 per 10 0 WBC [place] POC Glucose Fingerstickon Glucose [Mass/Vol] 81 mg/dL 75 - 110 mg/dL [place] Glucose [Mass/Vol] 90 mg/dL 75 - 110 mg/dL [place] Glucose [Mass/Vol] 108 mg/dL 75 - 110 mg/dL [place] Glucose [Mass/Vol] 44 mg/dL Low 75 - 110 mg/dL [place] Interpretation and review of laboratory results Abnormal [place] Glucose [Mass/Vol] 54 mg/dL Low 75 - 110 mg/dL [place], [place] Comment on above: Critical Noted Interpretation and review of laboratory results Abnormal [place] Basic Metabolic Panelon 12-2 Anion gap [Moles/Vol] 9 mmol/L 9 - 17 mmol/L [place] Bun/Cre Ratio NOT REPORTED [place] Calcium [Mass/Vol] 7.3 mg/dL Low 8.6 - 10. 4 mg/dL [place] Chloride [Moles/Vol] 106 mmol/L 98 - 10 7 mmol/L [place] CO2 [Moles/Vol] 20 mmol/L 20 - 31 mmol/L [place] Creatinine [Mass/Vol] 0.31 mg/dL Low 0.7 - 1.2 mg/dL [place] GFR >60 >60 mL/min [place] GFR Non- >60 >60 mL/min [place] GFR/1.73 sq M predicted among non-blacks MDRD (S/P/Bld) [Vol rate/Area] NOT REPORTED [place] GFR/1.73 sq M predicted among non-blacks MDRD (S/P/Bld) [Vol rate/Area] [place], [place] Comment on above: Average GFR for 40-4 9 years old: 99 mL/min/1.73sq m Chronic Kidney Disease: <60 mL/min/1.73sq m Kidney failure: <15 mL/min/1.73sq m eGFR calculated using average adult body mass. Additional eGFR calculator available at: http://www.[employer]/multiple_crcl_2012.htm Glucose [Mass/Vol] 86 mg/dL 70 - 99 mg/dL [place] Potassium [Moles/Vol] 3.6 mmol/L Low 3.7 - 5.3 mmol/L [place] Sodium [Moles/Vol] 135 mmol/L 135 - 144 mmol/L [place] Urea nitrogen [Mass/Vol] 10 mg/dL 6 - 20 mg/dL [place] CBCon 04-08-2020 Erythrocyte distribution width (RBC) [Ratio] 25.0 % High 11.8 - 14.4 % [place] Hematocrit (Bld) [Volume fraction] 35.4 % Low 40.7 - 50.3 % [place] Hemoglobin (Bld) [Mass/Vol] 9.5 g/dL Low 13 - 17 g/dL [place] Interpretation and review of laboratory results Abnormal [place] MCH (RBC) [Entitic mass] 23.2 pg Low 25.2 - 33.5 pg [place] MCHC (RBC) [Mass/Vol] 26.8 g/dL Low 28.4 - 34.8 g/dL [place] MCV (RBC) [Entitic vol] 86.6 fL 82.6 - 102.9 fL [place] Platelet mean volume (Bld) [Entitic vol] 10.1 fL 8.1 - 13.5 fL [place] Platelets (Bld) [#/Vol] 430 10*3/uL [place] RBC (Bld) [#/Vol] 4.09 10*6/uL Low 4.21 - 5.7 7 m/uL [place] WBC (Bld) [#/Vol] 6.5 10*3/uL [place] WBC (Bld) [#/Vol] 0.0 10*3/uL 0.0 per 10 0 WBC [place] Magnesiumon 04-08-2020 Magnesium [Mass/Vol] 2.4 mg/dL 1.6 - 2 .6 mg/dL [place], [place] Otheron 04-08-2020 Interpretation and review of laboratory results Abnormal [place], [place] POC Glucose Fingerstickon Glucose [Mass/Vol] 88 mg/dL 75 - 110 mg/dL [place] Phosphoruson 04-08-2020 Phosphate [Mass/Vol] 1.8 mg/dL Low 2.5 - 4 .5 mg/dL [place] Basic Metabolic Panelon 03-17 Anion gap [Moles/Vol] 5 mmol/L Low 9 - 17 mmol/L [place] Bun/Cre Ratio NOT REPORTED [place] Calcium [Mass/Vol] 6.8 mg/dL Low 8.6 - 10. 4 mg/dL [place] Chloride [Moles/Vol] 109 mmol/L High 98 - 10 7 mmol/L [place] CO2 [Moles/Vol] 23 mmol/L 20 - 31 mmol/L [place] Creatinine [Mass/Vol] 0.24 mg/dL Low 0.7 - 1.2 mg/dL [place] GFR >60 >60 mL/min [place] GFR Non- >60 >60 mL/min [place] GFR/1.73 sq M predicted among non-blacks MDRD (S/P/Bld) [Vol rate/Area] NOT REPORTED [place] GFR/1.73 sq M predicted among non-blacks MDRD (S/P/Bld) [Vol rate/Area] [place] Comment on above: Average GFR for 40-4 9 years old: 99 mL/min/1.73sq m Chronic Kidney Disease: <60 mL/min/1.73sq m Kidney failure: <15 mL/min/1.73sq m eGFR calculated using average adult body mass. Additional eGFR calculator available at: http://www.[employer]/multiple_crcl_2012.htm Glucose [Mass/Vol] 96 mg/dL 70 - 99 mg/dL [place] Potassium [Moles/Vol] 3.3 mmol/L Low 3.7 - 5.3 mmol/L [place] Sodium [Moles/Vol] 137 mmol/L 135 - 144 mmol/L [place] Urea nitrogen [Mass/Vol] 11 mg/dL 6 - 20 mg/dL [place] CBCon 04-07-2020 Erythrocyte distribution width (RBC) [Ratio] 24.0 % High 11.8 - 14.4 % [place] Hematocrit (Bld) [Volume fraction] 28.9 % Low 40.7 - 50.3 % [place] Hemoglobin (Bld) [Mass/Vol] 8.3 g/dL Low 13 - 17 g/dL [place] Interpretation and review of laboratory results Abnormal [place] MCH (RBC) [Entitic mass] 23.2 pg Low 25.2 - 33.5 pg [place] MCHC (RBC) [Mass/Vol] 28.7 g/dL 28.4 - 34.8 g/dL [place] MCV (RBC) [Entitic vol] 81.0 fL Low 82.6 - 102.9 fL [place] Platelet mean volume (Bld) [Entitic vol] 9.8 fL 8.1 - 13.5 fL [place] Platelets (Bld) [#/Vol] 418 10*3/uL [place] RBC (Bld) [#/Vol] 3.57 10*6/uL Low 4.21 - 5.7 7 m/uL [place] WBC (Bld) [#/Vol] 4.8 10*3/uL [place] WBC (Bld) [#/Vol] 0.0 10*3/uL 0.0 per 10 0 WBC [place] Magnesiumon 04-07-2020 Magnesium [Mass/Vol] 2.1 mg/dL 1.6 - 2 .6 mg/dL [place] Otheron 04-07-2020 Interpretation and review of laboratory results Abnormal [place], [place] POC Glucose Fingerstickon Glucose [Mass/Vol] 107 mg/dL 75 - 110 mg/dL [place] Phosphoruson 04-07-2020 Phosphate [Mass/Vol] 1.5 mg/dL Low 2.5 - 4 .5 mg/dL [place] Basic Metabolic Panelon 03-17 Anion gap [Moles/Vol] 4 mmol/L Low 9 - 17 mmol/L [place] Bun/Cre Ratio NOT REPORTED [place] Calcium [Mass/Vol] 6.9 mg/dL Low 8.6 - 10. 4 mg/dL [place] Chloride [Moles/Vol] 110 mmol/L High 98 - 10 7 mmol/L [place] CO2 [Moles/Vol] 22 mmol/L 20 - 31 mmol/L [place] Creatinine [Mass/Vol] 0.32 mg/dL Low 0.7 - 1.2 mg/dL [place] GFR >60 >60 mL/min [place] GFR Non- >60 >60 mL/min [place] GFR/1.73 sq M predicted among non-blacks MDRD (S/P/Bld) [Vol rate/Area] NOT REPORTED [place] GFR/1.73 sq M predicted among non-blacks MDRD (S/P/Bld) [Vol rate/Area] [place], [place] Comment on above: Average GFR for 40-4 9 years old: 99 mL/min/1.73sq m Chronic Kidney Disease: <60 mL/min/1.73sq m Kidney failure: <15 mL/min/1.73sq m eGFR calculated using average adult body mass. Additional eGFR calculator available at: http://www.Har[employer]/multiple_crcl_2011.htm Glucose [Mass/Vol] 84 mg/dL 70 - 99 mg/dL [place] Potassium [Moles/Vol] 3.8 mmol/L 3.7 - 5.3 mmol/L [place] Sodium [Moles/Vol] 136 mmol/L 135 - 144 mmol/L [place] Urea nitrogen [Mass/Vol] 14 mg/dL 6 - 20 mg/dL [place] Magnesiumon 04-06-2020 Magnesium [Mass/Vol] 2.3 mg/dL 1.6 - 2 .6 mg/dL [place] Otheron 04-06-2020 Interpretation and review of laboratory results Abnormal [place], [place] POC Glucose Fingerstickon Glucose [Mass/Vol] 91 mg/dL 75 - 110 mg/dL [place] Glucose [Mass/Vol] 95 mg/dL 75 - 110 mg/dL [place] Glucose [Mass/Vol] 84 mg/dL 75 - 110 mg/dL [place] Phosphoruson 04-06-2020 Phosphate [Mass/Vol] 1.4 mg/dL Low 2.5 - 4 .5 mg/dL [place] Triglycerideson 04-06-2020 Triglyceride [Mass/Vol] 65 mg/dL <150 [place], [place] Comment on above: Triglyceride Guidelines: <150 Desirable 150-199 Borderline 200-499 High >499 Very high Based on AHA Guidelines for fasting triglyceride, January 2012. BASIC METABOLIC PANELon 03-17 Anion gap [Moles/Vol] 6 mmol/L Low 9 - 17 mmol/L [place] Bun/Cre Ratio NOT REPORTED [place] Calcium [Mass/Vol] 6.8 mg/dL Low 8.6 - 10. 4 mg/dL [place] Chloride [Moles/Vol] 110 mmol/L High 98 - 10 7 mmol/L [place] CO2 [Moles/Vol] 23 mmol/L 20 - 31 mmol/L [place] Creatinine [Mass/Vol] 0.44 mg/dL Low 0.7 - 1.2 mg/dL [place] GFR >60 >60 mL/min [place] GFR Non- >60 >60 mL/min [place] GFR/1.73 sq M predicted among non-blacks MDRD (S/P/Bld) [Vol rate/Area] NOT REPORTED [place] GFR/1.73 sq M predicted among non-blacks MDRD (S/P/Bld) [Vol rate/Area] [place], [place] Comment on above: Average GFR for 40-4 9 years old: 99 mL/min/1.73sq m Chronic Kidney Disease: <60 mL/min/1.73sq m Kidney failure: <15 mL/min/1.73sq m eGFR calculated using average adult body mass. Additional eGFR calculator available at: http://www.[employer]/multiple_crcl_2012.htm Glucose [Mass/Vol] 101 mg/dL High 70 - 99 mg/dL [place] Interpretation and review of laboratory results Abnormal [place] Potassium [Moles/Vol] 3.8 mmol/L 3.7 - 5.3 mmol/L [place] Sodium [Moles/Vol] 139 mmol/L 135 - 144 mmol/L [place], [place] Urea nitrogen [Mass/Vol] 17 mg/dL 6 - 20 mg/dL [place], [place] CBC WITH AUTO DIFFERENTIALon 04-05-2020 Basophils (Bld) [#/Vol] 0.00 10*3/uL [place] Basophils/100 WBC (Bld) 0 % 0 - 2 % [place] Differential Type NOT REPORTED [place] Eosinophils (Bld) [#/Vol] 0.27 10*3/uL [place] Eosinophils/100 WBC (Bld) 5 % High 1 - 4 % [place] Erythrocyte distribution width (RBC) [Ratio] 24.0 % High 11.8 - 14.4 % [place] Hematocrit (Bld) [Volume fraction] 28.5 % Low 40.7 - 50.3 % [place] Hemoglobin (Bld) [Mass/Vol] 8.1 g/dL Low 13 - 17 g/dL [place] Immature granulocytes (Bld) [#/Vol] 0.11 10*3/uL [place] Immature granulocytes (Bld) [#/Vol] 2 % High 0 [place] Interpretation and review of laboratory results Abnormal [place] Lymphocytes (Bld) [#/Vol] 0.74 10*3/uL Low [place] Lymphocytes/100 WBC (Bld) 14 % Low 24 - 44 % [place] MCH (RBC) [Entitic mass] 22.8 pg Low 25.2 - 33.5 pg [place] MCHC (RBC) [Mass/Vol] 28.4 g/dL 28.4 - 34.8 g/dL [place] MCV (RBC) [Entitic vol] 80.3 fL Low 82.6 - 102.9 fL [place] Monocytes (Bld) [#/Vol] 0.85 10*3/uL [place] Monocytes/100 WBC (Bld) 16 % High 1 - 7 % [place] Morphology Ezra (Bld) [Interp] HYPOCHROMIA PRESENT [place] Morphology Ezra (Bld) [Interp] 1+ TEARDROPS [place] Morphology Ezra (Bld) [Interp] 1+ SCHISTOCYTES [place] Morphology Ezra (Bld) [Interp] 1+ ELLIPTOCYTES [place] Morphology Ezra (Bld) [Interp] ANISOCYTOSIS PRESENT [place] Platelet mean volume (Bld) [Entitic vol] 10.2 fL 8.1 - 13.5 fL [place] Platelets (Bld) [#/Vol] NOT REPORTED [place] Platelets (Bld) [#/Vol] 370 10*3/uL [place] RBC (Bld) [#/Vol] 3.55 10*6/uL Low 4.21 - 5.7 7 m/uL [place], [place] RBC morphology finding Nom (Bld) NOT REPORTED [place] Segmented neutrophils/100 WBC (Bld) 63 % 36 - 66 % [place] Segs Absolute 3.33 [place] WBC (Bld) [#/Vol] 0.0 10*3/uL 0.0 per 10 0 WBC [place] WBC (Bld) [#/Vol] 5.3 10*3/uL [place] WBC Morphology NOT REPORTED [place] Insert PICC magali 0 Breonna Almeida RN 04/05/2020 4:49 PM History/labs/allergi es reviewed Placed by Amaury MATOS Assisted by N/A Consent signed and obtained by physician Time out performed using two identifiers Catheter type double lumen picc Product type solo2 w 3cg Lot # [id number] Expiration date 01/13/2021 Catheter size 5 somali Trimmed at 4 cm Total length 41 cm External catheter length 0 cm Location RBV Number of attempts 1 Estimated blood loss 1 ml Pre procedure cardiac Rhythm NSR per bedside telemetry and/or 3CG Tracing. Placement verified by- CXR and/or 3cg Max P wave noted by amplitude changes of the P wave, positive blood return, flushes easily Special equipment used- ultrasound, micro-introducer technique and 3cg technology if indicated Catheter secured with statlock Dressing applied- Tegaderm CHG Lidocaine administered intradermally conc. 1% 1 mL PICC line education: [ X ] Discussed with patient/Family or POA prior to signing Informed Procedural Consent. Risks and Benefits along with reason for procedure were discussed and teaching was reinforced with an education handout on PICC insertion. [facility] FAQ Catheter Associated Blood Stream Infections and [facility] [id number] REV. 10/26 Nursing and Booklet left at bedside or in chart. Patient (Family or POA) acknowledged understanding of information taught and agreed to procedure. [ ] Was not discussed with patient/family or POA due to pts medical status at time of procedure. pts family or POA not available to discuss PICC education. [facility] FAQ Catheter Associated Blood Stream Infections and [facility] [id number] REV. 10/26 Nursing and Booklet left at bedside or in chart [place] POC Glucose Fingerstickon Glucose [Mass/Vol] 87 mg/dL 75 - 110 mg/dL [place] Glucose [Mass/Vol] 99 mg/dL 75 - 110 mg/dL [place] BASIC METABOLIC PANELon 03-17 Anion gap [Moles/Vol] 6 mmol/L Low 9 - 17 mmol/L [place] Bun/Cre Ratio NOT REPORTED [place] Calcium [Mass/Vol] 7.4 mg/dL Low 8.6 - 10. 4 mg/dL [place] Chloride [Moles/Vol] 103 mmol/L 98 - 10 7 mmol/L [place] CO2 [Moles/Vol] 24 mmol/L 20 - 31 mmol/L [place] Creatinine [Mass/Vol] 0.44 mg/dL Low 0.7 - 1.2 mg/dL [place] GFR >60 >60 mL/min [place] GFR Non- >60 >60 mL/min [place] GFR/1.73 sq M predicted among non-blacks MDRD (S/P/Bld) [Vol rate/Area] [place] Comment on above: Average GFR for 40-4 9 years old: 99 mL/min/1.73sq m Chronic Kidney Disease: <60 mL/min/1.73sq m Kidney failure: <15 mL/min/1.73sq m eGFR calculated using average adult body mass. Additional eGFR calculator available at: http://[email or web address]_2012.htm GFR/1.73 sq M predicted among non-blacks MDRD (S/P/Bld) [Vol rate/Area] NOT REPORTED [place], [place] Glucose [Mass/Vol] 105 mg/dL High 70 - 99 mg/dL [place], [place] Interpretation and review of laboratory results Abnormal [place] Potassium [Moles/Vol] 4.2 mmol/L 3.7 - 5.3 mmol/L [place] Sodium [Moles/Vol] 133 mmol/L Low 135 - 144 mmol/L [place], [place] Urea nitrogen [Mass/Vol] 15 mg/dL 6 - 20 mg/dL [place], [place] CBC WITH AUTO DIFFERENTIALon 04-04-2020 Basophils (Bld) [#/Vol] 0.00 10*3/uL [place] Basophils/100 WBC (Bld) 0 % 0 - 2 % [place] Differential Type NOT REPORTED [place] Eosinophils (Bld) [#/Vol] 0.00 10*3/uL [place] Eosinophils/100 WBC (Bld) 0 % Low 1 - 4 % [place] Erythrocyte distribution width (RBC) [Ratio] 24.1 % High 11.8 - 14.4 % [place] Hematocrit (Bld) [Volume fraction] 38.1 % Low 40.7 - 50.3 % [place] Hemoglobin (Bld) [Mass/Vol] 11.1 g/dL Low 13 - 17 g/dL [place] Immature granulocytes (Bld) [#/Vol] 0 % 0 [place] Immature granulocytes (Bld) [#/Vol] 0.00 10*3/uL [place] Interpretation and review of laboratory results Abnormal [place] Lymphocytes (Bld) [#/Vol] 1.11 10*3/uL [place] Lymphocytes/100 WBC (Bld) 15 % Low 24 - 44 % [place] MCH (RBC) [Entitic mass] 22.5 pg Low 25.2 - 33.5 pg [place] MCHC (RBC) [Mass/Vol] 29.1 g/dL 28.4 - 34.8 g/dL [place] MCV (RBC) [Entitic vol] 77.1 fL Low 82.6 - 102.9 fL [place] Monocytes (Bld) [#/Vol] 1.11 10*3/uL High [place], [place] Monocytes/100 WBC (Bld) 15 % High 1 - 7 % [place] Morphology Ezra (Bld) [Interp] 1+ POLYCHROMASIA [place] Morphology Ezra (Bld) [Interp] ANISOCYTOSIS PRESENT [place] Morphology Ezra (Bld) [Interp] MICROCYTOSIS PRESENT [place] Platelet mean volume (Bld) [Entitic vol] 9.7 fL 8.1 - 13.5 fL [place] Platelets (Bld) [#/Vol] NOT REPORTED [place] Platelets (Bld) [#/Vol] 499 10*3/uL [place] RBC (Bld) [#/Vol] 4.94 10*6/uL 4.21 - 5.7 7 m/uL [place], [place] RBC morphology finding Nom (Bld) NOT REPORTED [place], [place] Segmented neutrophils/100 WBC (Bld) 70 % High 36 - 66 % [place] Segs Absolute 5.18 [place] WBC (Bld) [#/Vol] 0.0 10*3/uL 0.0 per 10 0 WBC [place] WBC (Bld) [#/Vol] 7.4 10*3/uL [place] WBC Morphology NOT REPORTED [place] Culture, Urineon 04-04-2020 Culture NO GROWTH [place] Special Requests NOT REPORTED [place] Specimen Description .INDWELLING CATH URINE [place] Lactate, Sepsison 04-04-2020 Lactic Acid, Sepsis NOT REPORTED 0.5 - 1. 9 mmol/L [place] Lactic Acid, Sepsis, Whole Blood 1.0 mmol/L 0.5 - 1.9 mmol/L [place], [place] POC Glucose Fingerstickon Glucose [Mass/Vol] 93 mg/dL 75 - 110 mg/dL [place] Glucose [Mass/Vol] 128 mg/dL High 75 - 110 mg/dL [place] Interpretation and review of laboratory results Abnormal [place] VL DUP LOWER EXTREMITY VENOU S LEFTon 04-04-2020 [facility] Vascular Lower Extremities DVT Study Procedure Patient Name DANUTA MUHAMMAD Date of Study 04/02/2020 J Date of 1980 Gender Male Age 39 year(s) Race Room Number 0174 Corporate ID [id number] # Patient Acct [id number] # MR # [id number] Registered Midwife Norma Shultz RVT, RDMS Interpreting Gold Hernandez Physician Referring Referring Physician Arlyn Villegas Nurse Practitioner Procedure Type of Study: Veins: Lower Extremities DVT Study, Venous Scan Lower Left. Indications for Study:Leg Swelling. Patient Status:In Patient. Technical Quality:Limited visualization. Limitation reason:edema. Conclusions Summary No evidence of superficial or deep venous thrombosis in the left lower extremity. Signature ---- ---- ---- ---- Left Impression: The common femoral, femoral, popliteal and tibial veins demonstrate normal compressibility and augmentation. Normal compressibility of the great saphenous vein. Normal compressibility of the small saphenous vein. Thigh, calf, and ankle edema noted. Risk Factors History + +------- ---+ + !Diagnosis !Date !Comments ! + +------- ---+ + !Recent surgery !03/30/2020!amritrossamantha opy! + +------- ---+ + - The patient's risk factor(s) include: arterial hypertension. Velocities are measured in cm/s ; Diameters are measured in cm Right Lower Extremities DVT Study Measurements Right Doppler Measurements + ---------+------+--- ---+ + !Location !Signal!Reflux!Reflu x (msec) ! + ---------+------+--- ---+ + !Common Femoral !Phasic! ! ! + ---------+------+--- ---+ + Left Lower Extremities DVT Study Measurements Left 2D Measurements + +-- --------+ ----+ + !Location !Visualized!Compress ibility!Thrombosis! + +-- --------+ ----+ + !Common Femoral !Yes !Yes !None ! + +-- --------+ ----+ + !Prox Femoral !Yes !Yes !None ! + +-- --------+ ----+ + !Mid Femoral !Yes !Yes !None ! + +-- --------+ ----+ + !Dist Femoral !Yes !Yes !None ! + +-- --------+ ----+ + !Popliteal !Yes !Yes !None ! + +-- --------+ ----+ + !Sapheno Femoral Junction !Yes !Yes !None ! + +-- --------+ ----+ + !PTV !Yes !Yes !None ! + +-- --------+ ----+ + !Peroneal !Partial !Yes !None ! + +-- --------+ ----+ + !Gastroc !Yes !Yes !None ! + +-- --------+ ----+ + !GSV Thigh !Yes !Yes !None ! + +-- --------+ ----+ + !GSV Knee !Yes !Yes !None ! + +-- --------+ ----+ + !GSV Ankle !Yes !Yes !None ! + +-- --------+ ----+ + !SSV !Yes !Yes !None ! + +-- --------+ ----+ + Left Doppler Measurements + --------+------+---- --+ + !Location !Signal!Reflux!Reflu x (msec) ! + --------+------+---- --+ + !Common Femoral !Phasic! ! ! + --------+------+---- --+ + !Prox Femoral !Phasic! ! ! + --------+------+---- --+ + !Popliteal !Phasic! ! ! + --------+------+---- --+ + [facility]- [place], [place], [facility] Incoming Cardio Results From [facility] - 04/04/2020 8:53 AM [facility] Vascular Lower Extremities DVT Study Procedure Patient Name DANUTA MUHAMMAD Date of Study 04/02/2020 J Date of 1980 Gender Male Age 39 year(s) Race Room Number 0174 Corporate ID [id number] # Patient Acct [id number] # MR # [id number] Registered Midwife Norma Shultz RVT, TRISHA Interpreting Gold Hernandez Physician Referring Referring Physician Arlyn Villegas Nurse Practitioner Procedure Type of Study: Veins: Lower Extremities DVT Study, Venous Scan Lower Left. Indications for Study:Leg Swelling. Patient Status:In Patient. Technical Quality:Limited visualization. Limitation reason:edema. Conclusions Summary No evidence of superficial or deep venous thrombosis in the left lower extremity. Signature ---- ---- ---- ---- Left Impression: The common femoral, femoral, popliteal and tibial veins demonstrate normal compressibility and augmentation. Normal compressibility of the great saphenous vein. Normal compressibility of the small saphenous vein. Thigh, calf, and ankle edema noted. Risk Factors History + +------- ---+ + !Diagnosis !Date !Comments ! + +------- ---+ + !Recent surgery !03/30/2020!laparosc opy! + +------- ---+ + - The patient's risk factor(s) include: arterial hypertension. Velocities are measured in cm/s ; Diameters are measured in cm Right Lower Extremities DVT Study Measurements Right Doppler Measurements + ---------+------+--- ---+ + !Location !Signal!Reflux!Reflu x (msec) ! + ---------+------+--- ---+ + !Common Femoral !Phasic! ! ! + ---------+------+--- ---+ + Left Lower Extremities DVT Study Measurements Left 2D Measurements + +-- --------+ ----+ + !Location !Visualized!Compress ibility!Thrombosis! + +-- --------+ ----+ + !Common Femoral !Yes !Yes !None ! + +-- --------+ ----+ + !Prox Femoral !Yes !Yes !None ! + +-- --------+ ----+ + !Mid Femoral !Yes !Yes !None ! + +-- --------+ ----+ + !Dist Femoral !Yes !Yes !None ! + +-- --------+ ----+ + !Popliteal !Yes !Yes !None ! + +-- --------+ ----+ + !Sapheno Femoral Junction !Yes !Yes !None ! + +-- --------+ ----+ + !PTV !Yes !Yes !None ! + +-- --------+ ----+ + !Peroneal !Partial !Yes !None ! + +-- --------+ ----+ + !Gastroc !Yes !Yes !None ! + +-- --------+ ----+ + !GSV Thigh !Yes !Yes !None ! + +-- --------+ ----+ + !GSV Knee !Yes !Yes !None ! + +-- --------+ ----+ + !GSV Ankle !Yes !Yes !None ! + +-- --------+ ----+ + !SSV !Yes !Yes !None ! + +-- --------+ ----+ + Left Doppler Measurements + --------+------+---- --+ + !Location !Signal!Reflux!Reflu x (msec) ! + --------+------+---- --+ + !Common Femoral !Phasic! ! ! + --------+------+---- --+ + !Prox Femoral !Phasic! ! ! + --------+------+---- --+ + !Popliteal !Phasic! ! ! + --------+------+---- --+ + [facility]- [place] DUP UPPER EXTREMITY VENOU S LEFTon 04-04-2020 [facility] Vascular Upper Extremities Veins Procedure Patient Name DANUTA MUHAMMAD Date of Study 04/02/2020 J Date of 1980 Gender Male Age 39 year(s) Race Room Number 0174 Corporate ID [id number] # Patient Acct [id number] # MR # [id number] Registered Midwife Norma Suhltz RVT, MS Interpreting Gold Hernandez Physician Referring Referring Physician Arlyn Villegas Nurse Practitioner Procedure Type of Study: Veins: Upper Extremities Veins, Venous Scan Upper Left. Indications for Study:Arm swelling. Patient Status:In Patient. Technical Quality:Limited visualization. Limitation reason:IV site left wrist. Conclusions Summary No evidence of superficial or deep venous thrombosis in the left lower extremity. Signature ---- ---- ---- ---- Left Impression: Left internal jugular, subclavian, axillary, brachial, ulnar, radial, cephalic and basilic veins are compressible with normal doppler responses. Risk Factors History + +------- ---+ + !Diagnosis !Date !Comments ! + +------- ---+ + !Recent surgery !03/30/2020!norma opy! + +------- ---+ + - The patient's risk factor(s) include: arterial hypertension. Velocities are measured in cm/s ; Diameters are measured in cm Left UE Vein Measurements 2D Measurements + +-- --------+ ----+ + !Location !Visualized!Compress ibility!Thrombosis! + +-- --------+ ----+ + !Prox IJV !Yes !Yes !None ! + +-- --------+ ----+ + !Dist IJV !Yes !Yes !None ! + +-- --------+ ----+ + !Prox SCV !Yes !Yes !None ! + +-- --------+ ----+ + !Dist SCV !Yes !Yes !None ! + +-- --------+ ----+ + !Prox Axillary !Yes !Yes !None ! + +-- --------+ ----+ + !Dist Axillary !Yes !Yes !None ! + +-- --------+ ----+ + !Prox Brachial !Yes !Yes !None ! + +-- --------+ ----+ + !Dist Brachial !Yes !Yes !None ! + +-- --------+ ----+ + !Prox Radial !Yes !Yes !None ! + +-- --------+ ----+ + !Dist Radial !Partial !Yes !None ! + +-- --------+ ----+ + !Prox Ulnar !Yes !Yes !None ! + +-- --------+ ----+ + !Dist Ulnar !Yes !Yes !None ! + +-- --------+ ----+ + !Basilic at UA !Yes !Yes !None ! + +-- --------+ ----+ + !Basilic at AF !Yes !Yes !None ! + +-- --------+ ----+ + !Basilic at LA !Yes !Yes !None ! + +-- --------+ ----+ + !Cephalic at UA !Yes !Yes !None ! + +-- --------+ ----+ + !Cephalic at AF !Yes !Yes !None ! + +-- --------+ ----+ + !Cephalic at LA !Partial !Yes !None ! + +-- --------+ ----+ + Doppler Measurements + ------+ +--------- + !Location !Signal !Reflux ! + ------+ +--------- + !IJV !Phasic ! ! + ------+ +--------- + !SCV !Phasic ! ! + ------+ +--------- + !Axillary !Phasic ! ! + ------+ +--------- + [facility]- [place], [place] Incoming Cardio Results From [facility]/ - 04/04/2020 8:50 AM [facility] Vascular Upper Extremities Veins Procedure Patient Name DANUTA MUHAMMAD Date of Study 04/02/2020 Ann Date of 1980 Gender Male Age 39 year(s) Race Room Number 0174 Corporate ID [id number] # Patient Acct [id number] # MR # [id number] Registered Midwife Norma Shultz RVT, [facility] Interpreting Gold Hernandez Physician Referring Referring Physician Arlyn Villegas Nurse Practitioner Procedure Type of Study: Veins: Upper Extremities Veins, Venous Scan Upper Left. Indications for Study:Arm swelling. Patient Status:In Patient. Technical Quality:Limited visualization. Limitation reason:IV site left wrist. Conclusions Summary No evidence of superficial or deep venous thrombosis in the left lower extremity. Signature ---- ---- ---- ---- Left Impression: Left internal jugular, subclavian, axillary, brachial, ulnar, radial, cephalic and basilic veins are compressible with normal doppler responses. Risk Factors History + +------- ---+ + !Diagnosis !Date !Comments ! + +------- ---+ + !Recent surgery !03/30/2020!laparosc opy! + +------- ---+ + - The patient's risk factor(s) include: arterial hypertension. Velocities are measured in cm/s ; Diameters are measured in cm Left UE Vein Measurements 2D Measurements + +-- --------+ ----+ + !Location !Visualized!Compress ibility!Thrombosis! + +-- --------+ ----+ + !Prox IJV !Yes !Yes !None ! + +-- --------+ ----+ + !Dist IJV !Yes !Yes !None ! + +-- --------+ ----+ + !Prox SCV !Yes !Yes !None ! + +-- --------+ ----+ + !Dist SCV !Yes !Yes !None ! + +-- --------+ ----+ + !Prox Axillary !Yes !Yes !None ! + +-- --------+ ----+ + !Dist Axillary !Yes !Yes !None ! + +-- --------+ ----+ + !Prox Brachial !Yes !Yes !None ! + +-- --------+ ----+ + !Dist Brachial !Yes !Yes !None ! + +-- --------+ ----+ + !Prox Radial !Yes !Yes !None ! + +-- --------+ ----+ + !Dist Radial !Partial !Yes !None ! + +-- --------+ ----+ + !Prox Ulnar !Yes !Yes !None ! + +-- --------+ ----+ + !Dist Ulnar !Yes !Yes !None ! + +-- --------+ ----+ + !Basilic at UA !Yes !Yes !None ! + +-- --------+ ----+ + !Basilic at AF !Yes !Yes !None ! + +-- --------+ ----+ + !Basilic at LA !Yes !Yes !None ! + +-- --------+ ----+ + !Cephalic at UA !Yes !Yes !None ! + +-- --------+ ----+ + !Cephalic at AF !Yes !Yes !None ! + +-- --------+ ----+ + !Cephalic at LA !Partial !Yes !None ! + +-- --------+ ----+ + Doppler Measurements + ------+ +--------- + !Location !Signal !Reflux ! + ------+ +--------- + !IJV !Phasic ! ! + ------+ +--------- + !SCV !Phasic ! ! + ------+ +--------- + !Axillary !Phasic ! ! + ------+ +--------- + [place] Vitamin B1on 04-04-2020 Vitamin B1,Whole Blood 122 nmol/L 70 - 180 nmol/L [place] Comment on above: (NOTE) INTERPRETIVE INFORMATION: Vitamin B1, Whole Blood This assay measures the concentration of thiamine diphosphate (TDP), the primary active form of vitamin B1. Approximately 90 percent of vitamin B1 present in whole blood is TDP. Thiamine and thiamine monophosphate, which comprise the remaining 10 percent, are not measured. Test developed and characteristics determined by [employer]. See Compliance Statement B: [email or web address]/CS Performed By: [employer] [address] [place] [id number] Client Sales And Service Officer: Marisol Gray MD BASIC METABOLIC PANELon 03-16 Anion gap [Moles/Vol] 10 mmol/L 9 - 17 mmol/L [place], [place] Bun/Cre Ratio NOT REPORTED [place] Calcium [Mass/Vol] 7.0 mg/dL Low 8.6 - 10. 4 mg/dL [place], [place] Chloride [Moles/Vol] 103 mmol/L 98 - 10 7 mmol/L [place] CO2 [Moles/Vol] 22 mmol/L 20 - 31 mmol/L [place] Creatinine [Mass/Vol] 0.38 mg/dL Low 0.7 - 1.2 mg/dL [place] GFR >60 >60 mL/min [place], [place] GFR Non- >60 >60 mL/min [place] GFR/1.73 sq M predicted among non-blacks MDRD (S/P/Bld) [Vol rate/Area] NOT REPORTED [place] GFR/1.73 sq M predicted among non-blacks MDRD (S/P/Bld) [Vol rate/Area] [place] Comment on above: Average GFR for 40-4 9 years old: 99 mL/min/1.73sq m Chronic Kidney Disease: <60 mL/min/1.73sq m Kidney failure: <15 mL/min/1.73sq m eGFR calculated using average adult body mass. Additional eGFR calculator available at: http://www.[employer]/multiple_crcl_2011.htm Glucose [Mass/Vol] 76 mg/dL 70 - 99 mg/dL [place], [place] Interpretation and review of laboratory results Abnormal [place], [place] Potassium [Moles/Vol] 3.6 mmol/L Low 3.7 - 5.3 mmol/L [place] Sodium [Moles/Vol] 135 mmol/L 135 - 144 mmol/L [place], [place] Urea nitrogen [Mass/Vol] 12 mg/dL 6 - 20 mg/dL [place], [place] CBC WITH AUTO DIFFERENTIALon 04-03-2020 Basophils (Bld) [#/Vol] 0.05 10*3/uL [place] Basophils/100 WBC (Bld) 1 % 0 - 2 % [place] Differential Type NOT REPORTED [place] Eosinophils (Bld) [#/Vol] 0.09 10*3/uL [place] Eosinophils/100 WBC (Bld) 2 % 1 - 4 % [place] Erythrocyte distribution width (RBC) [Ratio] 24.1 % High 11.8 - 14.4 % [place] Hematocrit (Bld) [Volume fraction] 32.3 % Low 40.7 - 50.3 % [place] Hemoglobin (Bld) [Mass/Vol] 9.3 g/dL Low 13 - 17 g/dL [place], [place] Immature granulocytes (Bld) [#/Vol] 1 % High 0 [place] Immature granulocytes (Bld) [#/Vol] 0.05 10*3/uL [place] Interpretation and review of laboratory results Abnormal [place] Lymphocytes (Bld) [#/Vol] 0.95 10*3/uL Low [place], [place] Lymphocytes/100 WBC (Bld) 21 % Low 24 - 44 % [place] MCH (RBC) [Entitic mass] 22.6 pg Low 25.2 - 33.5 pg [place] MCHC (RBC) [Mass/Vol] 28.8 g/dL 28.4 - 34.8 g/dL [place] MCV (RBC) [Entitic vol] 78.4 fL Low 82.6 - 102.9 fL [place] Monocytes (Bld) [#/Vol] 0.23 10*3/uL [place], [place] Monocytes/100 WBC (Bld) 5 % 1 - 7 % [place], [place] Morphology Ezra (Bld) [Interp] 1+ ELLIPTOCYTES [place] Morphology Ezra (Bld) [Interp] 1+ POLYCHROMASIA [place] Morphology Ezra (Bld) [Interp] MICROCYTOSIS PRESENT [place] Morphology Ezra (Bld) [Interp] ANISOCYTOSIS PRESENT [place] Platelet mean volume (Bld) [Entitic vol] 9.5 fL 8.1 - 13.5 fL [place] Platelets (Bld) [#/Vol] NOT REPORTED [place] Platelets (Bld) [#/Vol] 498 10*3/uL High [facility] ID RBC (Bld) [#/Vol] 4.12 10*6/uL Low 4.21 - 5.7 7 m/uL [place], [place] RBC morphology finding Nom (Bld) NOT REPORTED [place] Segmented neutrophils/100 WBC (Bld) 70 % High 36 - 66 % [place] Segs Absolute 3.13 [place] WBC (Bld) [#/Vol] 0.0 10*3/uL 0.0 per 10 0 WBC [place] WBC (Bld) [#/Vol] 4.5 10*3/uL [place] WBC Morphology NOT REPORTED [place] FL UGI W SMALL BOWELon 04-03 [place], [facility] Incoming Radiant Results From [facility] - 04/03/2020 1:25 PM EST EXAMINATION: SINGLE CONTRAST UPPER GI SERIES WITH SMALL BOWEL FOLLOW THROUGH SERIES 04/03/2020 TECHNIQUE: Single-contrast upper GI series and small-bowel follow-through. FLUOROSCOPY DOSE AND TYPE OR TIME AND EXPOSURES: 0.2 minutes. Air kerma 23.706 mGy. COMPARISON: None. HISTORY: ORDERING SYSTEM PROVIDED HISTORY: Evaluation of SBO TECHNOLOGIST PROVIDED HISTORY: Gastrografin please Evaluation of SBO Reason for Exam: evaluation of SBO 360ml gastrografin orally FINDINGS: [place]: Midline skin parris. Residual oral contrast within the colon. Exam: Oral contrast was given to evaluate the stomach. No obstruction. No extravasation of contrast. 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 Small-bowel obstruction was then performed after the ingestion of 360 ml of Gastrografin. Proximal small bowel is markedly dilated. IMPRESSION: Markedly dilated proximal small bowel corresponding to findings on recent CT. [place], [place] Markedly dilated proximal small bowel corresponding to findings on recent CT. [place] EXAMINATION: SINGLE CONTRAST UPPER GI SERIES WITH SMALL BOWEL FOLLOW THROUGH SERIES 04/03/2020 TECHNIQUE: Single-contrast upper GI series and small-bowel follow-through. FLUOROSCOPY DOSE AND TYPE OR TIME AND EXPOSURES: 0.2 minutes. Air kerma 23.706 mGy. COMPARISON: None. HISTORY: ORDERING SYSTEM PROVIDED HISTORY: Evaluation of SBO TECHNOLOGIST PROVIDED HISTORY: Gastrografin please Evaluation of SBO Reason for Exam: evaluation of SBO 360ml gastrografin orally FINDINGS: [place]: Midline skin parris. Residual oral contrast within the colon. Exam: Oral contrast was given to evaluate the stomach. No obstruction. No extravasation of contrast. 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 Small-bowel obstruction was then performed after the ingestion of 360 ml of Gastrografin. Proximal small bowel is markedly dilated. [place] MAGNESIUMon 04-03-2020 Magnesium [Mass/Vol] 2.3 mg/dL 1.6 - 2 .6 mg/dL [place], [place] POC Glucose Fingerstickon Glucose [Mass/Vol] 79 mg/dL 75 - 110 mg/dL [place], [place] Glucose [Mass/Vol] 62 mg/dL Low 75 - 110 mg/dL [place] Interpretation and review of laboratory results Abnormal [place], [place] Urinalysis Reflex to Culture on 04-03-2020 Bilirubin U[facility] [place] Color, UA YELLOW YELLOW [place], [place] Glucose, Ur Negative NEGATIVE [place] Interpretation and review of laboratory results Abnormal [place], [place] Ketones Ql (U) MODERATE Abnormal NEGATIVE [place], [place] Leukocyte esterase Test strip Ql (U) Negative NEGATIVE [place], [place] Nitrite, Urine Negative NEGATIVE [place], [place] pH, UA 6.0 [place], [place] Protein (U) [Mass/Vol] Negative NEGATIVE [place] Specific [place], UA 1.022 [place], [place] Turbidity UA CLEAR CLEAR [place] Urinalysis Comments Microscopic exam not performed based on chemical results unless requested in original order. [place] Urine Hgb Negative NEGATIVE [place] Urobilinogen, Urine Normal Normal [place], [place] CBCon 04-02-2020 Erythrocyte distribution width (RBC) [Ratio] 23.6 % High 11.8 - 14.4 % [place] Hematocrit (Bld) [Volume fraction] 33.8 % Low 40.7 - 50.3 % [place], [place] Hemoglobin (Bld) [Mass/Vol] 9.6 g/dL Low 13 - 17 g/dL [place], [place] Interpretation and review of laboratory results Abnormal [place], [place] MCH (RBC) [Entitic mass] 21.9 pg Low 25.2 - 33.5 pg [place] MCHC (RBC) [Mass/Vol] 28.4 g/dL 28.4 - 34.8 g/dL [place] MCV (RBC) [Entitic vol] 77.0 fL Low 82.6 - 102.9 fL [place], [place] Platelet mean volume (Bld) [Entitic vol] 9.4 fL 8.1 - 13.5 fL [place] Platelets (Bld) [#/Vol] 453 10*3/uL [place], [place] RBC (Bld) [#/Vol] 4.39 10*6/uL 4.21 - 5.7 7 m/uL [place], [place] WBC (Bld) [#/Vol] 5.6 10*3/uL [place] WBC (Bld) [#/Vol] 0.0 10*3/uL 0.0 per 10 0 WBC [place] CT ABDOMEN PELVIS WO CONTRAS T Additional Contrast? Noneon 04-02-2020 1. Postoperative pneumoperitoneum which is from recent abdominal surgery secondary to a small bowel obstruction. There is increased distension of distended small bowel loops in the left abdomen which measure up to 7 cm in caliber, consistent with an ongoing mid small bowel obstruction. 2. Increased distention of the right colon with the cecum measuring up to 8 cm and fecalization of the terminal ileum. This could be related to a postoperative ileus. 3. Small free fluid in the lower abdomen and pelvis which is either reactive to the bowel obstruction or related to the recent surgery. No evidence of an abscess. 4. Status post gastric bypass. 5. Soft tissue anasarca, new from the prior exam. 6. Hepatic steatosis. Results of this examination were verbally discussed with the patient's nurse, Loni Epps, at 5:54 p.m. on 04/02/2020. [place], [place] Lonnie Conteh Incoming Radiant Results From [facility] - 04/02/2020 7:31 PM EST EXAMINATION: CT OF THE ABDOMEN AND PELVIS WITHOUT CONTRAST 04/02/2020 5:32 pm TECHNIQUE: CT of the abdomen and pelvis was performed without the administration of intravenous contrast. Multiplanar reformatted images are provided for review. Dose modulation, iterative reconstruction, and/or weight based adjustment of the mA/kV was utilized to reduce the radiation dose to as low as reasonably achievable. COMPARISON: Retroperitoneal ultrasound of the same date, 03/29/2020 HISTORY: ORDERING SYSTEM PROVIDED HISTORY: Abd pain TECHNOLOGIST PROVIDED HISTORY: Abd pain Reason for Exam: Abd pain Decreased urinary output. Abdominal pain. Acute symptoms. Follow-up to recent retroperitoneal ultrasound. FINDINGS: Lower Chest: There is dependent atelectasis in the bilateral lower lobes. Organs: There is diffuse fatty infiltration of the liver. Status post cholecystectomy. The spleen, pancreas and adrenal glands are unremarkable. No renal or ureteral calcifications are demonstrated. There is no hydronephrosis. GI/Bowel: Status post gastric bypass. There is significant distension of mid small bowel with a transition point seen on axial image 92 in the left abdomen. The dilated small bowel measures up to 7 cm in diameter. There is dilatation of the right colon with air and oral contrast with the cecum measuring 8 cm in diameter. There is fecalization of the terminal ileum. Pelvis: The urinary bladder is moderately distended. Air within the bladder is presumably due to recent instrumentation. There is a small amount of pelvic free fluid. Peritoneum/Retroperi toneum: The abdominal aorta is normal in course and caliber. There is free air within the abdomen as well as a small amount of free fluid in the right lower quadrant. There is a dilated loop of small bowel in the left lower quadrant which was previously present. There is no evidence of an abdominal abscess. Bones/Soft Tissues: There is diffuse soft tissue anasarca. No suspicious osteolytic or osteoblastic lesions are seen. Midline abdominal sutures are noted. IMPRESSION: 1. Postoperative pneumoperitoneum which is from recent abdominal surgery secondary to a small bowel obstruction. There is increased distension of distended small bowel loops in the left abdomen which measure up to 7 cm in caliber, consistent with an ongoing mid small bowel obstruction. 2. Increased distention of the right colon with the cecum measuring up to 8 cm and fecalization of the terminal ileum. This could be related to a postoperative ileus. 3. Small free fluid in the lower abdomen and pelvis which is either reactive to the bowel obstruction or related to the recent surgery. No evidence of an abscess. 4. Status post gastric bypass. 5. Soft tissue anasarca, new from the prior exam. 6. Hepatic steatosis. Results of this examination were verbally discussed with the patient's nurse, Loni Epps, at 5:54 p.m. on 04/02/2020. [place], [place] EXAMINATION: CT OF THE ABDOMEN AND PELVIS WITHOUT CONTRAST 04/02/2020 5:32 pm TECHNIQUE: CT of the abdomen and pelvis was performed without the administration of intravenous contrast. Multiplanar reformatted images are provided for review. Dose modulation, iterative reconstruction, and/or weight based adjustment of the mA/kV was utilized to reduce the radiation dose to as low as reasonably achievable. COMPARISON: Retroperitoneal ultrasound of the same date, 03/29/2020 HISTORY: ORDERING SYSTEM PROVIDED HISTORY: Abd pain TECHNOLOGIST PROVIDED HISTORY: Abd pain Reason for Exam: Abd pain Decreased urinary output. Abdominal pain. Acute symptoms. Follow-up to recent retroperitoneal ultrasound. FINDINGS: Lower Chest: There is dependent atelectasis in the bilateral lower lobes. Organs: There is diffuse fatty infiltration of the liver. Status post cholecystectomy. The spleen, pancreas and adrenal glands are unremarkable. No renal or ureteral calcifications are demonstrated. There is no hydronephrosis. GI/Bowel: Status post gastric bypass. There is significant distension of mid small bowel with a transition point seen on axial image 92 in the left abdomen. The dilated small bowel measures up to 7 cm in diameter. There is dilatation of the right colon with air and oral contrast with the cecum measuring 8 cm in diameter. There is fecalization of the terminal ileum. Pelvis: The urinary bladder is moderately distended. Air within the bladder is presumably due to recent instrumentation. There is a small amount of pelvic free fluid. Peritoneum/Retroperi toneum: The abdominal aorta is normal in course and caliber. There is free air within the abdomen as well as a small amount of free fluid in the right lower quadrant. There is a dilated loop of small bowel in the left lower quadrant which was previously present. There is no evidence of an abdominal abscess. Bones/Soft Tissues: There is diffuse soft tissue anasarca. No suspicious osteolytic or osteoblastic lesions are seen. Midline abdominal sutures are noted. [place] Comprehensive Metabolic Pane l w/ Reflex to MGon 04-02-2020 Albumin [Mass/Vol] 1.8 g/dL Low 3.5 - 5.2 g/dL [place] Albumin/Globulin [Mass ratio] 0.6 {ratio} Low [place] ALP [Catalytic activity/Vol] 232 U/L High 40 - 129 U/L [place] ALT [Catalytic activity/Vol] 56 U/L High 5 - 41 U/L [place] Anion gap [Moles/Vol] 6 mmol/L Low 9 - 17 mmol/L [place] AST [Catalytic activity/Vol] 103 U/L High <40 [place] Bilirubin Ql (U) 0.23 mg/dL Low 0.3 - 1.2 mg/dL [place] Bun/Cre Ratio NOT REPORTED [place] Calcium [Mass/Vol] 7.5 mg/dL Low 8.6 - 10. 4 mg/dL [place] Chloride [Moles/Vol] 107 mmol/L 98 - 10 7 mmol/L [place] CO2 [Moles/Vol] 22 mmol/L 20 - 31 mmol/L [place] Creatinine [Mass/Vol] 0.43 mg/dL Low 0.7 - 1.2 mg/dL [place] GFR >60 >60 mL/min [place] GFR Non- >60 >60 mL/min [place] GFR/1.73 sq M predicted among non-blacks MDRD (S/P/Bld) [Vol rate/Area] [place] Comment on above: Average GFR for 40-4 9 years old: 99 mL/min/1.73sq m Chronic Kidney Disease: <60 mL/min/1.73sq m Kidney failure: <15 mL/min/1.73sq m eGFR calculated using average adult body mass. Additional eGFR calculator available at: http://www.[employer]/multiple_crcl_2012.htm GFR/1.73 sq M predicted among non-blacks MDRD (S/P/Bld) [Vol rate/Area] NOT REPORTED [place] Glucose [Mass/Vol] 82 mg/dL 70 - 99 mg/dL [place] Interpretation and review of laboratory results Abnormal [place], [place] Potassium [Moles/Vol] 3.9 mmol/L 3.7 - 5.3 mmol/L [place] Protein [Mass/Vol] 4.9 g/dL Low 6.4 - 8.3 g/dL [place] Sodium [Moles/Vol] 135 mmol/L 135 - 144 mmol/L [place] Urea nitrogen [Mass/Vol] 13 mg/dL 6 - 20 mg/dL [place] Path Review, Smearon 020 Pathologist Review SEE REPORT [place] Comment on above: REVIEWING PATHOLOGIST: NIKI LAZAR M.D. Surgical Pathologyon 020 Surgical Pathology Report [id number] [facility] CONSULTING PATHOLOGISTS [facility] ANATOMIC PATHOLOGY [address] [place] [id number] SURGICAL PATHOLOGY CONSULTATION Patient Name: SABINA ESPINOZA MR#: [id number] Specimen #[id number] Procedures/Addenda PERIPHERAL BLOOD REPORT Date Ordered: 04/02/2020 Status: Signed Out Date Complete: 04/02/2020 By: Niki Lazar M.D. Date Reported: 04/02/2020 INTERPRETATION PERIPHERAL BLOOD: MODERATE MICROCYTIC ANEMIA; IRON STUDIES AND CLINICAL HISTORY COMPATIBLE WITH IRON DEFICIENCY ANEMIA. MILD REACTIVE THROMBOCYTOSIS. RESULTS-COMMENTS PERIPHERAL BLOOD STUDY CBC: Please see the electronic health record for CBC parameters ([id number], 04/01/2020, 08:17). PLATELETS: Platelets show normal morphology. LEUKOCYTES: White blood cells show normal morphology. There are no blasts. ERYTHROCYTES: Brigid, hypochromia, microcytosis Niki Lazar M.D. Source: 1: PERIPHERAL BLOOD FOR REVIEW BY PATHOLOGIST [facility] ID US RETROPERITONEAL COMPLETEo n 04-02-2020 1. Mild increased echogenicity and dirty shadowing artifact extending from the anterior aspect of the urinary bladder which could be related to gas in the urinary bladder or anterior urinary bladder wall. Emphysematous cystitis difficult to exclude on the basis of this examination. Correlation with urinalysis and possible CT would be beneficial if clinically indicated. 2. Exam limited by bowel gas and rib shadowing. No hydronephrosis. Trace right-sided perinephric fluid. 3. Nonvisualization of ureteral jets. Small amount of free fluid in the lower abdomen. The findings were sent to the Radiology Results Communication Center at 3:22 pm on 04/02/2020to be communicated to a licensed caregiver. [facility] [place], [place] [facility], [facility] Incoming Radiant Results From [employer] - 04/02/2020 3:25 PM EST EXAMINATION: RETROPERITONEAL ULTRASOUND OF THE KIDNEYS AND URINARY BLADDER 04/02/2020 COMPARISON: CT abdomen pelvis from 03/29/2020 HISTORY: ORDERING SYSTEM PROVIDED HISTORY: low UOP TECHNOLOGIST PROVIDED HISTORY: low UOP 39-year-old male with decreased urine output FINDINGS: Kidneys: Exam is limited by bowel gas and rib shadowing. Right kidney measures 10.8 x 5.6 x 5.1 cm. Right renal cortical thickness measures 2.1 cm. Left kidney measures 11.5 x 4.8 x 4.7 cm. Left renal cortical thickness measures 1.5 cm. Trace right-sided perinephric fluid. No hydronephrosis. Gross preservation of the bilateral corticomedullary differentiation. No echogenic foci with posterior acoustic shadowing to suggest renal calculi. Bladder: Nonvisualization of ureteral jets. Urinary bladder measures 8.9 x 7.9 x 6.5 cm for a bladder volume of 237 mL. Small amount of free fluid in the lower abdomen. There is mildly increased echogenicity and dirty shadowing like artifact extending from the anterior aspect of the urinary bladder which could be related to gas in the urinary bladder or along the anterior bladder wall. IMPRESSION: 1. Mild increased echogenicity and dirty shadowing artifact extending from the anterior aspect of the urinary bladder which could be related to gas in the urinary bladder or anterior urinary bladder wall. Emphysematous cystitis difficult to exclude on the basis of this examination. Correlation with urinalysis and possible CT would be beneficial if clinically indicated. 2. Exam limited by bowel gas and rib shadowing. No hydronephrosis. Trace right-sided perinephric fluid. 3. Nonvisualization of ureteral jets. Small amount of free fluid in the lower abdomen. The findings were sent to the Radiology Results Communication Center at 3:22 pm on 04/02/2020to be communicated to a licensed caregiver. [place] EXAMINATION: RETROPERITONEAL ULTRASOUND OF THE KIDNEYS AND URINARY BLADDER 04/02/2020 COMPARISON: CT abdomen pelvis from 03/29/2020 HISTORY: ORDERING SYSTEM PROVIDED HISTORY: low UOP TECHNOLOGIST PROVIDED HISTORY: low UOP 39-year-old male with decreased urine output FINDINGS: Kidneys: Exam is limited by bowel gas and rib shadowing. Right kidney measures 10.8 x 5.6 x 5.1 cm. Right renal cortical thickness measures 2.1 cm. Left kidney measures 11.5 x 4.8 x 4.7 cm. Left renal cortical thickness measures 1.5 cm. Trace right-sided perinephric fluid. No hydronephrosis. Gross preservation of the bilateral corticomedullary differentiation. No echogenic foci with posterior acoustic shadowing to suggest renal calculi. Bladder: Nonvisualization of ureteral jets. Urinary bladder measures 8.9 x 7.9 x 6.5 cm for a bladder volume of 237 mL. Small amount of free fluid in the lower abdomen. There is mildly increased echogenicity and dirty shadowing like artifact extending from the anterior aspect of the urinary bladder which could be related to gas in the urinary bladder or along the anterior bladder wall. [place] XR ABDOMEN (KUB) (SINGLE AP VIEW)on 04-02-2020 EXAMINATION: ONE SUPINE XRAY VIEW(S) OF THE ABDOMEN 04/02/2020 8:17 am COMPARISON: None HISTORY: ORDERING SYSTEM PROVIDED HISTORY: s/p ex lap, no bowel function TECHNOLOGIST PROVIDED HISTORY: s/p ex lap, no bowel function Reason for Exam: No bowel function/ AP supine/ port. Acuity: Unknown Type of Exam: Unknown FINDINGS: There is moderate distention of ascending, transverse and proximal descending colon. There is a large amount of stool and residual contrast within the transverse and descending colon. Midline surgical skin parris are present consistent with the recent open laparoscopy. [place] Moderate distention of the ascending, transverse and proximal descending colon with a large amount of stool and residual contrast within the colon. [place], [place] [facility], [facility] Incoming Radiant Results From [employer] - 04/02/2020 10:15 AM EST EXAMINATION: ONE SUPINE XRAY VIEW(S) OF THE ABDOMEN 04/02/2020 8:17 am COMPARISON: None HISTORY: ORDERING SYSTEM PROVIDED HISTORY: s/p ex lap, no bowel function TECHNOLOGIST PROVIDED HISTORY: s/p ex lap, no bowel function Reason for Exam: No bowel function/ AP supine/ port. Acuity: Unknown Type of Exam: Unknown FINDINGS: There is moderate distention of ascending, transverse and proximal descending colon. There is a large amount of stool and residual contrast within the transverse and descending colon. Midline surgical skin parris are present consistent with the recent open laparoscopy. IMPRESSION: Moderate distention of the ascending, transverse and proximal descending colon with a large amount of stool and residual contrast within the colon. [place] BASIC METABOLIC PANELon 12- Anion gap [Moles/Vol] 7 mmol/L Low 9 - 17 mmol/L [place] Bun/Cre Ratio NOT REPORTED [place] Calcium [Mass/Vol] 7.4 mg/dL Low 8.6 - 10. 4 mg/dL [place] Chloride [Moles/Vol] 106 mmol/L 98 - 10 7 mmol/L [place] CO2 [Moles/Vol] 23 mmol/L 20 - 31 mmol/L [place] Creatinine [Mass/Vol] 0.59 mg/dL Low 0.7 - 1.2 mg/dL [place] GFR >60 >60 mL/min [place] GFR Non- >60 >60 mL/min [place] GFR/1.73 sq M predicted among non-blacks MDRD (S/P/Bld) [Vol rate/Area] [place], [place] Comment on above: Average GFR for 40-4 9 years old: 99 mL/min/1.73sq m Chronic Kidney Disease: <60 mL/min/1.73sq m Kidney failure: <15 mL/min/1.73sq m eGFR calculated using average adult body mass. Additional eGFR calculator available at: http://www.[employer]/multiple_crcl_2012.htm GFR/1.73 sq M predicted among non-blacks MDRD (S/P/Bld) [Vol rate/Area] NOT REPORTED [place], [place] Glucose [Mass/Vol] 86 mg/dL 70 - 99 mg/dL [place] Interpretation and review of laboratory results Abnormal [place] Potassium [Moles/Vol] 3.9 mmol/L 3.7 - 5.3 mmol/L [place] Sodium [Moles/Vol] 136 mmol/L 135 - 144 mmol/L [place], [place] Urea nitrogen [Mass/Vol] 15 mg/dL 6 - 20 mg/dL [place] CBC WITH AUTO DIFFERENTIALon 04-01-2020 Basophils (Bld) [#/Vol] 0.00 10*3/uL [place] Basophils/100 WBC (Bld) 0 % 0 - 2 % [place] Differential Type NOT REPORTED [place] Eosinophils (Bld) [#/Vol] 0.00 10*3/uL [place] Eosinophils/100 WBC (Bld) 0 % Low 1 - 4 % [place] Erythrocyte distribution width (RBC) [Ratio] 23.8 % High 11.8 - 14.4 % [place] Hematocrit (Bld) [Volume fraction] 33.9 % Low 40.7 - 50.3 % [place] Hemoglobin (Bld) [Mass/Vol] 9.5 g/dL Low 13 - 17 g/dL [place] Immature granulocytes (Bld) [#/Vol] 0.08 10*3/uL [place] Immature granulocytes (Bld) [#/Vol] 1 % High 0 [place] Interpretation and review of laboratory results Abnormal [place] Lymphocytes (Bld) [#/Vol] 0.79 10*3/uL Low [place], [place] Lymphocytes/100 WBC (Bld) 10 % Low 24 - 43 % [place] MCH (RBC) [Entitic mass] 21.8 pg Low 25.2 - 33.5 pg [place] MCHC (RBC) [Mass/Vol] 28.0 g/dL Low 28.4 - 34.8 g/dL [place] MCV (RBC) [Entitic vol] 77.9 fL Low 82.6 - 102.9 fL [place], [place] Monocytes (Bld) [#/Vol] 0.87 10*3/uL [place] Monocytes/100 WBC (Bld) 11 % 3 - 12 % [place] Morphology Ezra (Bld) [Interp] ANISOCYTOSIS PRESENT [place] Morphology Ezra (Bld) [Interp] MICROCYTOSIS PRESENT [place] Morphology Ezra (Bld) [Interp] 1+ POLYCHROMASIA [place], [place] Platelet mean volume (Bld) [Entitic vol] 9.8 fL 8.1 - 13.5 fL [place] Platelets (Bld) [#/Vol] NOT REPORTED [place] Platelets (Bld) [#/Vol] 455 10*3/uL [place], [place] RBC (Bld) [#/Vol] 4.35 10*6/uL 4.21 - 5.7 7 m/uL [place] RBC morphology finding Nom (Bld) NOT REPORTED [place] Segmented neutrophils/100 WBC (Bld) 78 % High 36 - 65 % [place] Segs Absolute 6.16 [place] WBC (Bld) [#/Vol] 7.9 10*3/uL [place] WBC (Bld) [#/Vol] 0.0 10*3/uL 0.0 per 10 0 WBC [place] WBC Morphology NOT REPORTED [place] Reticulocyteson 04-01-2020 Absolute Retic # 0.080 [place] Immature Retic Fract 21.5 % High 2.7 - 18.3 % [place] Interpretation and review of laboratory results Abnormal [place], [place] Retic % 1.8 % 0.5 - 1.9 % [place] Retic Hemoglobin 28.8 pg 28.2 - 35.7 pg [place] BASIC METABOLIC PANELon 12- Anion gap [Moles/Vol] 10 mmol/L 9 - 17 mmol/L [place] Bun/Cre Ratio NOT [facility]PORTED [facility] [place] Calcium [Mass/Vol] 7.3 mg/dL Low 8.6 - 10. 4 mg/dL [place], [place] Chloride [Moles/Vol] 106 mmol/L 98 - 10 7 mmol/L [place] CO2 [Moles/Vol] 20 mmol/L 20 - 31 mmol/L [place] Creatinine [Mass/Vol] 0.73 mg/dL 0.7 - 1.2 mg/dL [place] GFR >60 >60 mL/min [place] GFR Non- >60 >60 mL/min [place] GFR/1.73 sq M predicted among non-blacks MDRD (S/P/Bld) [Vol rate/Area] [place], [place] Comment on above: Average GFR for 40-4 9 years old: 99 mL/min/1.73sq m Chronic Kidney Disease: <60 mL/min/1.73sq m Kidney failure: <15 mL/min/1.73sq m eGFR calculated using average adult body mass. Additional eGFR calculator available at: http://www.[employer]/multiple_crcl_2012.htm GFR/1.73 sq M predicted among non-blacks MDRD (S/P/Bld) [Vol rate/Area] NOT REPORTED [place], [place] Glucose [Mass/Vol] 91 mg/dL 70 - 99 mg/dL [place] Interpretation and review of laboratory results Abnormal [place] Potassium [Moles/Vol] 3.6 mmol/L Low 3.7 - 5.3 mmol/L [place] Sodium [Moles/Vol] 136 mmol/L 135 - 144 mmol/L [place], [place] Urea nitrogen [Mass/Vol] 17 mg/dL 6 - 20 mg/dL [place], [place] CBC WITH AUTO DIFFERENTIALon 03-31-2020 Basophils (Bld) [#/Vol] 0.00 10*3/uL [place] Basophils/100 WBC (Bld) 0 % 0 - 2 % [place] Differential Type NOT REPORTED [place] Eosinophils (Bld) [#/Vol] 0.00 10*3/uL [place] Eosinophils/100 WBC (Bld) 0 % Low 1 - 4 % [place] Erythrocyte distribution width (RBC) [Ratio] 23.1 % High 11.8 - 14.4 % [place] Hematocrit (Bld) [Volume fraction] 33.2 % Low 40.7 - 50.3 % [place] Hemoglobin (Bld) [Mass/Vol] 9.7 g/dL Low 13 - 17 g/dL [place] Immature granulocytes (Bld) [#/Vol] 0.17 10*3/uL [place] Immature granulocytes (Bld) [#/Vol] 1 % High 0 [place] Interpretation and review of laboratory results Abnormal [place] Lymphocytes (Bld) [#/Vol] 1.00 10*3/uL Low [place], [place] Lymphocytes/100 WBC (Bld) 6 % Low 24 - 43 % [place] MCH (RBC) [Entitic mass] 22.2 pg Low 25.2 - 33.5 pg [place] MCHC (RBC) [Mass/Vol] 29.2 g/dL 28.4 - 34.8 g/dL [place] MCV (RBC) [Entitic vol] 76.0 fL Low 82.6 - 102.9 fL [place], [place] Monocytes (Bld) [#/Vol] 1.16 10*3/uL [place], [place] Monocytes/100 WBC (Bld) 7 % 3 - 12 % [place] Morphology Ezra (Bld) [Interp] MICROCYTOSIS PRESENT [place] Morphology Ezra (Bld) [Interp] ANISOCYTOSIS PRESENT [place] Platelet mean volume (Bld) [Entitic vol] 10.1 fL 8.1 - 13.5 fL [place] Platelets (Bld) [#/Vol] 493 10*3/uL [place] Platelets (Bld) [#/Vol] NOT REPORTED [place] RBC (Bld) [#/Vol] 4.37 10*6/uL 4.21 - 5.7 7 m/uL [place], [place] RBC morphology finding Nom (Bld) NOT REPORTED [place] Segmented neutrophils/100 WBC (Bld) 86 % High 36 - 65 % [place] Segs Absolute 14.27 High [place] WBC (Bld) [#/Vol] 0.0 10*3/uL 0.0 per 10 0 WBC [place] WBC (Bld) [#/Vol] 16.6 10*3/uL [place] WBC Morphology NOT REPORTED [place] FERRITINon 03-31-2020 Ferritin [Mass/Vol] 17 ug/L Low 30 - 400 ug/L [place] IRON AND TIBCon 03-31-2020 Iron [Mass/Vol] 17 ug/dL Low 59 - 158 ug/dL [place], [place] Iron Saturation 9 % Low 20 - 55 % [place] TIBC 198 ug/dL Low 250 - 450 ug/dL [place], [place] UIBC 181 ug/dL 112 - 347 ug/dL [place] Otheron 03-31-2020 Interpretation and review of laboratory results Abnormal [place] APTTon 03-30-2020 aPTT Coag (Bld) [Time] 30.5 s [place], [place] Comment on above: IV Heparin Therapy Range: 48.6-77.8 CBCon 03-30-2020 Erythrocyte distribution width (RBC) [Ratio] 23.6 % High 11.8 - 14.4 % [place] Hematocrit (Bld) [Volume fraction] 31.5 % Low 40.7 - 50.3 % [place] Hemoglobin (Bld) [Mass/Vol] 8.8 g/dL Low 13 - 17 g/dL [place], [place] Interpretation and review of laboratory results Abnormal [place] MCH (RBC) [Entitic mass] 22.3 pg Low 25.2 - 33.5 pg [place] MCHC (RBC) [Mass/Vol] 27.9 g/dL Low 28.4 - 34.8 g/dL [place] MCV (RBC) [Entitic vol] 79.7 fL Low 82.6 - 102.9 fL [place], [place] Platelet mean volume (Bld) [Entitic vol] 10.1 fL 8.1 - 13.5 fL [place] Platelets (Bld) [#/Vol] 495 10*3/uL [place] RBC (Bld) [#/Vol] 3.95 10*6/uL Low 4.21 - 5.7 7 m/uL [place] WBC (Bld) [#/Vol] 0.2 10*3/uL High 0.0 per 10 0 WBC [place] WBC (Bld) [#/Vol] 12.7 10*3/uL [place] COVID-19on 03-30-2020 SARS-CoV-2, Rapid Not Detected Not Detected [place] Comment on above: Rapid NAAT: The specimen is NEGATIVE for SARS-CoV-2, the novel coronavirus associated with COVID-19. The ID NOW COVID-19 assay is designed to detect the virus that causes COVID-19 in patients with signs and symptoms of infection who are suspected of COVID-19. An individual without symptoms of COVID-19 and who is not shedding SARS-CoV-2 virus would expect to have a negative (not detected) result in this assay. Negative results should be treated as presumptive and, if inconsistent with clinical signs and symptoms or necessary for patient management, should be tested with an alternative molecular assay. Negative results do not preclude SARS-CoV-2 infection and should not be used as the sole basis for patient management decisions. Fact sheet for Healthcare Providers: https://www.fda.gov/media/855875/download Fact sheet for Patients: https://www.fda.gov/media/157063/download Methodology: Isothermal Nucleic Acid Amplification Source .NASOPHARYNGEAL SWAB [place] Comprehensive Metabolic Pane l w/ Reflex to MGon 03-30-2020 Albumin [Mass/Vol] 1.8 g/dL Low 3.5 - 5.2 g/dL [place], [place] Albumin/Globulin [Mass ratio] 0.6 {ratio} Low [place], [place] ALP [Catalytic activity/Vol] 103 U/L 40 - 129 U/L [place] ALT [Catalytic activity/Vol] 15 U/L 5 - 41 U/L [place] Anion gap [Moles/Vol] 9 mmol/L 9 - 17 mmol/L [place] AST [Catalytic activity/Vol] 32 U/L <40 [place] Bilirubin Ql (U) 0.26 mg/dL Low 0.3 - 1.2 mg/dL [place], [place] Bun/Cre Ratio NOT REPORTED [place] Calcium [Mass/Vol] 7.5 mg/dL Low 8.6 - 10. 4 mg/dL [place], [place] Chloride [Moles/Vol] 106 mmol/L 98 - 10 7 mmol/L [place] CO2 [Moles/Vol] 21 mmol/L 20 - 31 mmol/L [place] Creatinine [Mass/Vol] 0.71 mg/dL 0.7 - 1.2 mg/dL [place] GFR >60 >60 mL/min [place] GFR Non- >60 >60 mL/min [place] GFR/1.73 sq M predicted among non-blacks MDRD (S/P/Bld) [Vol rate/Area] [place] Comment on above: Average GFR for 40-4 9 years old: 99 mL/min/1.73sq m Chronic Kidney Disease: <60 mL/min/1.73sq m Kidney failure: <15 mL/min/1.73sq m eGFR calculated using average adult body mass. Additional eGFR calculator available at: http://www.[employer]/multiple_crcl_2012.htm GFR/1.73 sq M predicted among non-blacks MDRD (S/P/Bld) [Vol rate/Area] NOT REPORTED [place], [place] Glucose [Mass/Vol] 75 mg/dL 70 - 99 mg/dL [place] Interpretation and review of laboratory results Abnormal [place] Potassium [Moles/Vol] 3.9 mmol/L 3.7 - 5.3 mmol/L [place] Protein [Mass/Vol] 4.8 g/dL Low 6.4 - 8.3 g/dL [place], [place] Sodium [Moles/Vol] 136 mmol/L 135 - 144 mmol/L [place], [place] Urea nitrogen [Mass/Vol] 16 mg/dL 6 - 20 mg/dL [place] Fibrinogenon 03-30-2020 Fibrinogen 396 mg/dL 140 - 420 mg/dL [place] Otheron 03-30-2020 SARS-CoV-2 [place] Protime-INRon 03-30-2020 INR Coag (PPP) [Relative time] 1.3 {INR} [place] Comment on above: Therapeutic Range: Moderate Anticoagulant Intensity: INR = 2.0-3.0 High Anticoagulant Intensity: INR = 2.5-3.5 Interpretation and review of laboratory results Abnormal [place], [place] PT Coag (PPP) [Time] 13.3 s High [place] Vital Signs Date Time Vital Sign Value Performing Clinician Facility 12-06-2022 08:30-0400 Body temperature 98.01 [degF] [employer] Work Phone: [facility] 12-06-2022 08:30-0400 Diastolic blood pressure 89 mm[Hg] [employer] Work Phone: [facility] 12-06-2022 08:30-0400 Heart rate 87 /min Chair [facility] Work Phone: [facility] 12-06-2022 08:30-0400 Respiratory rate 18 /min [facility] Work Phone: [facility] 12-06-2022 08:30-0400 SaO2% (BldA) [Mass fraction] 99 % [facility] Work Phone: [facility] 12-06-2022 08:30-0400 Systolic blood pressure 127 mm[Hg] [employer] Work Phone: [facility] 11-29-2022 10:13-0400 Diastolic blood pressure 99 mm[Hg] [facility] Work Phone: [facility] 11-29-2022 10:13-0400 Heart rate 105 /min [facility] Work Phone: [facility] 11-29-2022 10:13-0400 Respiratory rate 18 /min Chair [facility] Work Phone: [facility] 11-29-2022 10:13-0400 Systolic blood pressure 146 mm[Hg] [facility] Work Phone: [facility] 11-29-2022 09:25-0400 Body temperature 98.29 [degF] [facility] Work Phone: [facility] 10-25-2022 11:47-0400 Body temperature 98.6 [degF] Yina Gerardo MD Work Phone: [facility] 10-25-2022 11:47-0400 Body weight 101.24 kg Yina Gerardo MD Work Phone: [facility] 10-25-2022 11:47-0400 Diastolic blood pressure 94 mm[Hg] Yina Gerardo MD Work Phone: [facility] 10-25-2022 11:47-0400 Heart rate 114 /min Yina Gerardo MD Work Phone: [facility] 10-25-2022 11:47-0400 Respiratory rate 18 /min Yina Gerardo MD Work Phone: [facility] 10-25-2022 11:47-0400 SaO2% (BldA) [Mass fraction] 97 % Yina Gerardo MD Work Phone: [facility] 10-25-2022 11:47-0400 Systolic blood pressure 125 mm[Hg] Yina Gerardo MD Work Phone: [facility] 10-07-2021 12:04-0400 Diastolic blood pressure 96 mm[Hg] Pac 4 Work Phone: [facility] 10-07-2021 12:04-0400 Systolic blood pressure 145 mm[Hg] Pac 4 Work Phone: [facility] 10-07-2021 11:44-0400 Body height 177.8 cm Pacc 4 Work Phone: [facility] 10-07-2021 11:44-0400 Body temperature 98.2 [degF] Pac 4 Work Phone: [facility] 10-07-2021 11:44-0400 Body weight 99.79 kg Pacc 4 Work Phone: [facility] 10-07-2021 11:44-0400 Heart rate 113 /min Pac 4 Work Phone: [facility] 10-07-2021 11:44-0400 Respiratory rate 16 /min Pac 4 Work Phone: [facility] 10-07-2021 11:44-0400 SaO2% (BldA) [Mass fraction] 98 % Pac 4 Work Phone: [facility] 08-08-2021 14:50-0400 Diastolic blood pressure 81 mm[Hg] Alysa Asencio MD Work Phone: [facility] 08-08-2021 14:50-0400 Heart rate 88 /min Alysa Asencio MD Work Phone: [facility] 08-08-2021 14:50-0400 Respiratory rate 16 /min Alysa Asencio MD Work Phone: [facility] 08-08-2021 14:50-0400 SaO2% (BldA) [Mass fraction] 95 % Alysa Asencio MD Work Phone: [facility] 08-08-2021 14:50-0400 Systolic blood pressure 124 mm[Hg] Alysa Asencio MD Work Phone: [facility] 08-08-2021 14:12-0400 Body temperature 98.8 [degF] Alysa Asencio MD Work Phone: [facility] 07-29-2021 09:01-0400 Body height 177.3 cm Alysa Asencio MD Work Phone: [facility] 07-29-2021 09:01-0400 Body weight 100.7 kg Alysa Asencio MD Work Phone: [facility] 07-29-2021 09:01-0400 Diastolic blood pressure 88 mm[Hg] Alysa Asencio MD Work Phone: [facility] 07-29-2021 09:01-0400 Heart rate 110 /min Alysa Asencio MD Work Phone: [facility] 07-29-2021 09:01-0400 SaO2% (BldA) [Mass fraction] 99 % Alysa Asencio MD Work Phone: [facility] 07-29-2021 09:01-0400 Systolic blood pressure 142 mm[Hg] Alysa Asencio MD Work Phone: [facility] 07-04-2021 09:45-0400 Body temperature 97.7 [degF] Bia Hamilton MD Work Phone: [facility] [employer] 07-04-2021 09:45-0400 Diastolic blood pressure 91 mm[Hg] Bia Hamilton MD Work Phone: [facility] [employer] 07-04-2021 09:45-0400 Heart rate 98 /min Bia Hamilton MD Work Phone: [employer] 07-04-2021 09:45-0400 Respiratory rate 16 /min Bia Hamilton MD Work Phone: [employer] 07-04-2021 09:45-0400 SaO2% (BldA) [Mass fraction] 99 % Bia Hamilton MD Work Phone: [employer] 07-04-2021 09:45-0400 Systolic blood pressure 124 mm[Hg] Bia Hamilton MD Work Phone: [employer] 07-01-2021 15:06-0400 Body height 177.8 cm Bia Hamilton MD Work Phone: [employer] 06-30-2021 02:15-0400 Body mass index (BMI) [Ratio] 31.85 kg/m2 Bia Hamilton MD Work Phone: [employer] 06-30-2021 02:15-0400 Body weight 100.7 kg Bia Hamilton MD Work Phone: [employer] 06-22-2021 09:50-0500 Diastolic blood pressure 89 mm[Hg] Lalo Lambert MD Work Phone: [employer] 06-22-2021 09:50-0500 Heart rate 84 /min Lalo Lambert MD Work Phone: [employer] 06-22-2021 09:50-0500 Respiratory rate 16 /min Lalo Lambert MD Work Phone: [employer] 06-22-2021 09:50-0500 SaO2% (BldA) [Mass fraction] 97 % Lalo Lambert MD Work Phone: [employer] 06-22-2021 09:50-0500 Systolic blood pressure 126 mm[Hg] Lalo Lambert MD Work Phone: [employer] 06-22-2021 09:20-0500 Body temperature 97.59 [degF] Lalo Lambert MD Work Phone: [employer] 06-22-2021 08:01-0500 Body height 177.8 cm Lalo Lambert MD Work Phone: [employer] 06-22-2021 08:01-0500 Body mass index (BMI) [Ratio] 27.26 kg/m2 Lalo Lambert MD Work Phone: [employer] 06-22-2021 08:01-0500 Body weight 86.18 kg Lalo Lambert MD Work Phone: [employer] 02-17-2021 09:33-0400 Diastolic blood pressure 102 mm[Hg] Lalo Lambert MD Work Phone: [employer] Work Phone: 02-17-2021 09:33-0400 Heart rate 101 /min Lalo Lambert MD Work Phone: [employer] Work Phone: 02-17-2021 09:33-0400 Respiratory rate 16 /min Lalo Lambert MD Work Phone: [employer] Work Phone: 02-17-2021 09:33-0400 SaO2% (BldA) [Mass fraction] 99 % Lalo Lambert MD Work Phone: [employer] Work Phone: 02-17-2021 09:33-0400 Systolic blood pressure 131 mm[Hg] Lalo Lambert MD Work Phone: [employer] Work Phone: 02-17-2021 09:00-0400 Body temperature 98.2 [degF] Lalo Lambert MD Work Phone: [employer] Work Phone: 02-17-2021 07:49-0400 Body height 177.8 cm Lalo Lambert MD Work Phone: [employer] Work Phone: 02-17-2021 07:49-0400 Body mass index (BMI) [Ratio] 25.54 kg/m2 Lalodariana Lambert MD Work Phone: [facility] Work Phone: 02-17-2021 07:49-0400 Body weight 80.74 kg Lalo Lambert MD Work Phone: [employer] Work Phone: 11-25-2020 10:38-0400 Diastolic blood pressure 89 mm[Hg] Lalo Lambert MD Work Phone: [employer] Work Phone: 11-25-2020 10:38-0400 Heart rate 95 /min Lalo Lambert MD Work Phone: [employer] Work Phone: 11-25-2020 10:38-0400 Respiratory rate 18 /min Lalo Lambert MD Work Phone: [facility] Work Phone: 11-25-2020 10:38-0400 SaO2% (BldA) [Mass fraction] 97 % Lalo Lambert MD Work Phone: [employer] Work Phone: 11-25-2020 10:38-0400 Systolic blood pressure 128 mm[Hg] Lalo Lambert MD Work Phone: [employer] Work Phone: 11-25-2020 10:07-0400 Body temperature 98.1 [degF] Lalo Lambert MD Work Phone: [employer] Work Phone: 11-25-2020 07:32-0400 Body height 177.8 cm Lalo Lambert MD Work Phone: [employer] Work Phone: 11-25-2020 07:32-0400 Body mass index (BMI) [Ratio] 25.11 kg/m2 Lalo Lambert MD Work Phone: [facility] Work Phone: 11-25-2020 07:32-0400 Body weight 79.38 kg Lalo Lambert MD Work Phone: [employer] Work Phone: 10-28-2020 09:10-0400 Diastolic blood pressure 93 mm[Hg] Lalo Lambert MD Work Phone: [employer] Work Phone: 10-28-2020 09:10-0400 Heart rate 93 /min Lalo Lambert MD Work Phone: [facility] Work Phone: 10-28-2020 09:10-0400 Respiratory rate 14 /min Lalo Lambert MD Work Phone: [employer] Work Phone: 10-28-2020 09:10-0400 Systolic blood pressure 121 mm[Hg] Lalo Lambert MD Work Phone: [employer] Work Phone: 10-28-2020 08:55-0400 SaO2% (BldA) [Mass fraction] 95 % Lalo Lambert MD Work Phone: [employer] Work Phone: 10-28-2020 08:40-0400 Body temperature 98.6 [degF] Lalo Lambert MD Work Phone: [employer] Work Phone: 10-28-2020 07:35-0400 Body height 177.8 cm Lalo Lambert MD Work Phone: [employer] Work Phone: 10-28-2020 07:35-0400 Body mass index (BMI) [Ratio] 25.83 kg/m2 Lalo Lambert MD Work Phone: [employer] Work Phone: 10-28-2020 07:35-0400 Body weight 81.65 kg Lalo Lambert MD Work Phone: [employer] Work Phone: 09-30-2020 10:00-0400 Diastolic blood pressure 91 mm[Hg] Lalo Lambert MD Work Phone: [facility] Work Phone: 09-30-2020 10:00-0400 Heart rate 82 /min Lalo Lambert MD Work Phone: [employer] Work Phone: 09-30-2020 10:00-0400 Respiratory rate 12 /min Lalo Lambert MD Work Phone: [facility] Work Phone: 09-30-2020 10:00-0400 SaO2% (BldA) [Mass fraction] 99 % Lalo Lambert MD Work Phone: [facility] Work Phone: 09-30-2020 10:00-0400 Systolic blood pressure 126 mm[Hg] Lalo Lambert MD Work Phone: [facility] Work Phone: 09-30-2020 09:18-0400 Body temperature 97.81 [degF] Lalo Lambert MD Work Phone: [facility] Work Phone: 09-30-2020 07:05-0400 Body height 177.8 cm Lalo Lambert MD Work Phone: [facility] Work Phone: 09-30-2020 07:05-0400 Body mass index (BMI) [Ratio] 24.39 kg/m2 Lalo Lambert MD Work Phone: [facility] Work Phone: 09-30-2020 07:05-0400 Body weight 77.11 kg Lalo Lambert MD Work Phone: [facility] Work Phone: 09-02-2020 11:30-0400 Diastolic blood pressure 85 mm[Hg] Lalo Lambert MD Work Phone: [employer] Work Phone: 09-02-2020 11:30-0400 SaO2% (BldA) [Mass fraction] 98 % Lalo Lambert MD Work Phone: [facility] Work Phone: 09-02-2020 11:30-0400 Systolic blood pressure 124 mm[Hg] Lalo Lambert MD Work Phone: [employer] Work Phone: 09-02-2020 11:15-0400 Heart rate 75 /min Lalo Lambert MD Work Phone: [facility] Work Phone: 09-02-2020 11:15-0400 Respiratory rate 21 /min Lalo Lambert MD Work Phone: [facility] Work Phone: 09-02-2020 08:31-0400 Body height 177.8 cm Lalo Lambert MD Work Phone: [facility] Work Phone: 09-02-2020 08:31-0400 Body mass index (BMI) [Ratio] 24.39 kg/m2 Lalo Lmabert MD Work Phone: [facility] Work Phone: 09-02-2020 08:31-0400 Body temperature 97.7 [degF] Lalo Lambert MD Work Phone: [facility] Work Phone: 09-02-2020 08:31-0400 Body weight 77.11 kg Lalo Lambert MD Work Phone: [facility] Work Phone: 08-05-2020 10:48-0400 Diastolic blood pressure 97 mm[Hg] Lalo Lambert MD Work Phone: [facility] Work Phone: 08-05-2020 10:48-0400 Heart rate 93 /min Lalo Lambert MD Work Phone: [facility] Work Phone: 08-05-2020 10:48-0400 Respiratory rate 14 /min Lalo Lambert MD Work Phone: [facility] Work Phone: 08-05-2020 10:48-0400 SaO2% (BldA) [Mass fraction] 95 % Lalo Lambert MD Work Phone: [facility] Work Phone: 08-05-2020 10:48-0400 Systolic blood pressure 132 mm[Hg] Lalo Lambert MD Work Phone: [facility] Work Phone: 08-05-2020 10:03-0400 Body temperature 98.2 [degF] Lalo Lambert MD Work Phone: [facility] Work Phone: 08-05-2020 08:40-0400 Body height 177.8 cm Lalo Lambert MD Work Phone: [facility] Work Phone: 08-05-2020 08:40-0400 Body mass index (BMI) [Ratio] 23.68 kg/m2 Lalo Lambert MD Work Phone: [facility] Work Phone: 08-05-2020 08:40-0400 Body weight 74.84 kg Lalo Lambert MD Work Phone: [facility] Work Phone: 07-22-2020 14:00-0400 BP Diastolic 99 mm[Hg] Lalodariana Lambert [facility] Work Phone: 07-22-2020 14:00-0400 BP Systolic 133 mm[Hg] Lalo Lambert [facility] Work Phone: 07-22-2020 14:00-0400 Pulse (Heart Rate) 86 /min Lalo Lambert [facility] Work Phone: 07-22-2020 14:00-0400 Pulse Oximetry 96 % Lalo Fausto [facility] Work Phone: 07-22-2020 14:00-0400 Respiratory Rate 20 /min Lalo Fausto [facility] Work Phone: 07-22-2020 13:30-0400 Body Temperature 98.01 [degF] [facility] Work Phone: 07-22-2020 10:48-0400 BMI (Body Mass Index) 22.24 kg/m2 Lalo [employer] [facility] Work Phone: 07-22-2020 10:48-0400 Body weight 70.31 kg Lalo Fausto [facility] Work Phone: 07-22-2020 10:48-0400 Height 177.8 cm Lalo Fausto [facility] Work Phone: 07-08-2020 09:07-0400 BP Diastolic 109 mm[Hg] Lalo Fausto [facility] Work Phone: 07-08-2020 09:07-0400 BP Systolic 148 mm[Hg] Lalo Fausto [facility] Work Phone: 07-08-2020 09:07-0400 Pulse (Heart Rate) 98 /min Lalo Fausto [facility] Work Phone: 07-08-2020 09:07-0400 Pulse Oximetry 98 % Lalo Fausto [facility] Work Phone: 07-08-2020 09:07-0400 Respiratory Rate 13 /min Lalo Fausto [facility] Work Phone: 07-08-2020 08:37-0400 Body Temperature 97.81 [degF] Lalo Fausto [employer] Work Phone: 07-08-2020 07:51-0400 BMI (Body Mass Index) 21.52 kg/m2 Lalo Fausto [facility] Work Phone: 07-08-2020 07:51-0400 Body weight 68.04 kg Lalo Fausto [facility] Work Phone: 07-08-2020 07:51-0400 Height 177.8 cm Lalo Fausto [facility] Work Phone: 06-24-2020 09:35-0500 BP Diastolic 94 mm[Hg] Lalo Fausto [facility] Work Phone: 06-24-2020 09:35-0500 BP Systolic 128 mm[Hg] Lalo Fausto [facility] Work Phone: 06-24-2020 09:35-0500 Pulse (Heart Rate) 97 /min Lalo Fausto [facility] Work Phone: 06-24-2020 09:35-0500 Pulse Oximetry 98 % Lalo Fausto [facility] Work Phone: 06-24-2020 09:35-0500 Respiratory Rate 18 /min Lalo Fausto [facility] Work Phone: 06-24-2020 09:05-0500 Body Temperature 97.9 [degF] Lalo Fausto [facility] Work Phone: 06-24-2020 07:18-0500 BMI (Body Mass Index) 20.95 kg/m2 Lalo Fausto [facility] Work Phone: 06-24-2020 07:18-0500 Body weight 66.22 kg Lalo Fausto [facility] Work Phone: 06-24-2020 07:18-0500 Height 177.8 cm Lalo Fausto [facility] Work Phone: 05-27-2020 13:12-0500 Body Temperature 98.01 [degF] [facility] Work Phone: 05-27-2020 13:12-0500 BP Diastolic 102 mm[Hg] [facility] Work Phone: 05-27-2020 13:12-0500 BP Systolic 127 mm[Hg] [facility] Work Phone: 05-27-2020 13:12-0500 Pulse (Heart Rate) 92 /min [facility] Work Phone: 05-27-2020 13:12-0500 Pulse Oximetry 99 % [facility] Work Phone: 05-27-2020 13:12-0500 Respiratory Rate 16 /min [facility] Work Phone: 05-27-2020 12:04-0500 Height 177.8 cm [facility] Work Phone: 05-27-2020 06:00-0500 BMI (Body Mass Index) 22.53 kg/m2 Jose [facility] Work Phone: 05-27-2020 06:00-0500 Body weight 71.22 kg [facility] Work Phone: 04-12-2020 06:43-0500 Body Temperature 97.59 [degF] [place] [email or web address] [place] [place] 04-12-2020 06:43-0500 BP Diastolic 94 mm[Hg] [place] [email or web address] [place] , [place] 04-12-2020 06:43-0500 BP Systolic 142 mm[Hg] [facility] , [place] 04-12-2020 06:43-0500 Pulse (Heart Rate) 89 /min [facility], [place] 04-12-2020 06:43-0500 Pulse Oximetry 94 % [employer] [email or web address] , [place] 04-12-2020 06:43-0500 Respiratory Rate 16 /min [place] [facility] [place] 04-09-2020 23:15-0500 BMI (Body Mass Index) 28.88 kg/m2 [place] [facility] [place] [place] 04-09-2020 23:15-0500 Body weight 91.3 kg [place] [facility] [place] 04-09-2020 23:15-0500 Height 177.8 cm [place] [facility] , [place] 04-08-2020 16:35-0500 Body Temperature 97.9 [degF] [facility] 04-08-2020 16:35-0500 BP Diastolic 111 mm[Hg] [facility] 04-08-2020 16:35-0500 BP Systolic 151 mm[Hg] [facility] 04-08-2020 16:35-0500 Pulse (Heart Rate) 83 /min [facility] [place] [place] 04-08-2020 16:35-0500 Pulse Oximetry 97 % [facility] 04-08-2020 16:35-0500 Respiratory Rate 10 /min [facility] 04-08-2020 05:03-0500 BMI (Body Mass Index) 28.88 kg/m2 [facility] [place] 04-08-2020 05:03-0500 Body weight 91.3 kg [facility] 04-01-2020 13:16-0500 Height 177.8 cm [place], [place] Encounters Encounter Date Encounter Type Care Provider Facility Start: 12-06-2022 End: 12-07-2022 ambulatory SALVATORE CAMARGO Facility:[facility] Start: 12-06-2022 End: 12-06-2022 ambulatory Chair [address] Work Phone: Hematology/Oncology Comment on above: Iron deficiency anem ia secondary to inadequate dietary iron intake (Primary Dx) Start: 11-30-2022 Telephone encounter Anay Tee MD Work Phone: Dermatology Comment on above: 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 Start: 11-29-2022 End: 11-30-2022 ambulatory YINA GERARDO Facility:[facility] Start: 11-29-2022 End: 11-29-2022 ambulatory Chair Cara Chavez Work Phone: Hematology/Oncology Comment on above: Iron deficiency anem ia secondary to inadequate dietary iron intake (Primary Dx) Start: 11-22-2022 End: 11-23-2022 ambulatory [facility] Gayla [facility] Facility:[facility] Start: 11-14-2022 Telephone encounter Yina gomez MD Work Phone: Hematology/Oncology Comment on above: Results; Care Coordsohail natisai - Other (Tumor board discussion) Start: 11-08-2022 End: 11-09-2022 ambulatory [facility] Facility:[facility] Start: 10-25-2022 End: 10-25-2022 ambulatory Yina Gerardo MD Work Phone: Hematology/Oncology Comment on above: Squamous cell carcin brenda of skin (Primary Dx); Skin cancer; Infection in abdomen (HCC) Start: 10-25-2022 End: 10-25-2022 Patient encounter procedure Yina Gerardo MD Work Phone: [facility] Start: 10-13-2022 Telephone encounter Sabina cardenas PA-C Work Phone: General Surgery Comment on above: Results Start: 10-12-2022 Telephone encounter Alysa Asencio MD Work Phone: General Surgery Comment on above: Orders; Patient Upda te Start: 07-30-2022 End: 07-30-[address] OBDULIA GARCIA . Facility:[facility] Start: 07-06-2022 End: 07-07-[address] DOCTOR RAMIREZ Facility:[facility] Start: 06-06-2022 End: 06-06-[address] DOCTOR RAMIREZ Facility:[facility] Start: 03-30-2022 End: 03-31-2022 ambulatory RON JOSUE Facility:[facility] Start: 03-28-2022 End: 03-29-[address] KHOI MORILLO . Facility:[facility] Start: 02-28-2022 End: 03-01-2022 ambulatory [facility] Facility:[facility] Start: 01-20-2022 Telephone encounter Naomy adair MD Work Phone: General Surgery Comment on above: Patient Question Start: 01-19-2022 End: 01-19-2022 Evaluation and management of inpatient SALVATORE K RAMAN Facility:[facility] Start: 01-18-2022 End: 01-20-2022 Evaluation and management of inpatient SALVATORE K RAMAN Facility:[facility] Start: 01-17-2022 Telephone encounter Alysa Asencio MD Work Phone: General Surgery Comment on above: Patient Update Start: 01-11-2022 Telephone encounter Carlotta Clemons RN General Surgery 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: 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 Start: 01-03-2022 Telephone encounter Sabina cardenas PA-C Work Phone: General Surgery Comment on above: Returning Patient's Call Start: 01-02-2022 Telephone encounter Alysa Asencio MD Work Phone: General Surgery Comment on above: Patient Update; Appo intment Start: 12-17-2021 Telephone encounter Lewis Troncoso MD Work Phone: [facility] Comment on above: Patient Question; Re turning Patient's Call Start: 12-16-2021 Telephone encounter Alysa Asencio MD Work Phone: General Surgery Comment on above: Medication Problem Start: 11-29-2021 Telephone encounter Alysa Asencio MD Work Phone: General Surgery Comment on above: Patient Update Start: 11-23-2021 Telephone encounter Sabina cardenas PA-C Work Phone: General Surgery Comment on above: Call Back 48 Hours Appointment Start: 11-20-2021 Telephone encounter Carlotta Clemons RN General Surgery Comment on above: Returning Patient's Call Start: 11-16-2021 Telephone encounter Alysa Asencio MD Work Phone: General Surgery Comment on above: Appointment; Patient Question Start: 11-14-[address] Work Phone: General Surgery Start: 11-09-2021 Telephone encounter Alysa Asencio MD Work Phone: General Surgery Comment on above: Appointment Start: 11-08-2021 Telephone encounter Carlotta Clemons RN General Surgery Comment on above: Post Op Follow Up Start: 11-07-2021 End: 11-07-[address] DOCTOR RAMIREZ Facility:[facility] Start: 10-31-2021 End: 10-31-[address] DOCTOR RAMIREZ Facility:[facility] Start: 10-27-2021 ambulatory Jamilah Thomas on [employer] Work Phone: Urology Start: 10-26-2021 Orders Only Marnie Muhammad [employer] Work Phone: Vascular Medicine Comment on above: Personal history of DVT (deep vein thrombosis) (Primary Dx) Start: 10-21-2021 ambulatory Loretta Mccrary RN Work Phone: Case Management Comment on above: [employer] Start Start: 10-10-2021 End: 10-10-[address] DOCTOR RAMIREZ Facility:[facility] Start: 10-07-2021 End: 10-07-2021 ambulatory Alondra Harper RT(R) Pre Anesthesia Comment on above: Preop examination (P rimary Dx); Epigastric pain; Gastrojejunal ulcer; Hypertension, unspecified type; Obesity (BMI 30.0-34.9); Gastroesophageal reflux disease, unspecified whether esophagitis present; Anemia, unspecified type Radio Gen RMP Start: 10-07-2021 Patient encounter procedure Alondra Harper RT(R) [place] Start: 10-07-2021 End: 10-07-2021 Preprocedural examination done Alysa Asencio MD Work Phone: Radiology Start: 10-07-2021 End: 10-07-2021 Subsequent hospital visit by physician Alysa Asencio MD Work Phone: Radiology Comment on above: 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] Start: 10-07-2021 End: 10-07-[address] [facility] Work Phone: [place] Start: 10-07-2021 End: 10-07-2021 Preprocedural examination done [facility] Work Phone: Pre Anesthesia Start: 10-03-2021 Telephone encounter Alysa Asencio MD Work Phone: General Surgery Comment on above: Patient Question Patient Update Start: 10-03-2021 End: 10-03-[address] DOCTOR RAMIREZ Facility:[facility] Start: 09-23-2021 Telephone encounter Carlotta Clemons RN General Surgery Comment on above: Patient Update Start: 09-19-2021 End: 09-19-[address] DOCTOR RAMIREZ Facility:[facility] Start: 08-30-2021 End: 08-30-[address] DOCTOR RAMIREZ Facility:[facility] Start: 08-29-2021 End: 08-29-[address] DOCTOR RAMIREZ Facility:[facility] Start: 08-26-2021 ambulatory Carlotta Clemons RN Gen eral Surgery Comment on above: 10/04/2021 Start: 08-26-2021 Preprocedural examination done Carlotta Clemons RN General Surgery Start: 08-26-2021 Telephone encounter Alysa Asencio MD Work Phone: General Surgery Comment on above: Patient Question Called Back Start: 08-23-2021 Telephone encounter Alysa Asencio MD Work Phone: General Surgery Comment on above: Appointment Start: 08-19-2021 Telephone encounter Carlotta Clemons RN General Surgery Comment on above: Patient Update Start: 08-08-2021 End: 08-08-2021 Subsequent hospital visit by physician Alysa Asencio MD Work Phone: Gastroenterology Comment on above: 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] Start: 07-29-2021 End: 07-29-2021 Patient encounter procedure Alysa Asencio MD Work Phone: General Surgery Comment on above: Malnutrition of mode rate degree (HCC) (Primary Dx); Gastrogastric fistula Gastrojejunal ulcer (Primary Dx); Stricture of esophagus; Gastric fistula Start: 07-27-2021 ambulatory Carlotta Clemons RN Gen eral Surgery Start: 06-30-2021 End: 07-04-2021 Evaluation and management of inpatient SUE ARZATE [facility] Start: 06-30-2021 End: 07-04-2021 Evaluation and management of inpatient Bia Hamilton MD Work Phone: [facility] Onc/Med Surg Start: 06-22-2021 End: [facility] Start: 06-22-2021 End: 06-22-2021 Subsequent hospital visit by physician Lalo Lambert MD Work Phone: [facility] Start: 02-17-2021 End: 02-17-2021 [facility] Start: 02-17-2021 End: 02-17-2021 Subsequent hospital visit by physician Lalo Lambert MD Work Phone: [facility] Start: 02-03-2021 End: 02-03-2021 [facility] Start: 11-25-2020 End: 11-25-2020 [facility] Start: 11-25-2020 End: 11-25-2020 Subsequent hospital visit by physician Lalo Lambert MD Work Phone: [facility] Start: 10-28-2020 End: 10-28-2020 [facility] Start: 10-28-2020 End: 10-28-2020 Subsequent hospital visit by physician Lalo Lambert MD Work Phone: [facility] Start: 09-30-2020 End: 09-30-2020 [facility] Start: 09-30-2020 End: 09-30-2020 Subsequent hospital visit by physician Lalo Lambert MD Work Phone: [facility] Start: 09-16-2020 End: 09-16-2020 ambulatory [facility] Start: 09-02-2020 End: 09-02-2020 ambulatory [facility]UST[facility] Start: 09-02-2020 End: 09-02-2020 Subsequent hospital visit by physician Lalo Lambert MD Work Phone: [facility] Start: 08-30-2020 End: 09-04-2020 ambulatory [facility]AN [facility]UEVARA [facility] Start: 08-30-2020 End: 09-03-2020 Patient encounter status [facility] Schedule [facility]Z PRE ADMIT Start: 08-30-2020 End: 09-03-2020 Subsequent hospital visit by physician Gabriella Azar Pat Screening Schedule [facility] PRE ADMIT Comment on above: Preoperative testing Start: 08-16-2020 End: 08-21-2020 ambulatory [facility]UEVARA [facility] Start: 08-05-2020 End: 08-05-2020 ambulatory [facility] FAUSTO [facility] Start: 08-05-2020 End: 08-05-2020 Subsequent hospital visit by physician Lalo Lambert MD Work Phone: [facility] Start: 08-02-2020 End: 08-07-2020 ambulatory J[facility]AN GUEVARA [facility] Start: 08-02-2020 End: 08-06-2020 Patient encounter status [facility] Schedule [facility] PRE ADMIT Start: 08-02-2020 End: 08-06-2020 Subsequent hospital visit by physician Gabriella Azar Pat Screening Schedule MTHZ PRE ADMIT Comment on above: Preoperative testing Start: 07-22-2020 End: 07-22-2020 ambulatory LALO FAUSTO [facility] Start: 07-22-2020 End: 07-22-2020 Subsequent hospital visit by physician Lalo Lambert Work Phone: [facility] Start: 07-19-2020 End: 07-24-2020 ambulatory FREDO GUEVARA [facility] Start: 07-19-2020 End: 07-23-2020 Subsequent hospital visit by physician Gabriella Caceresid19 Pat Screening Schedule MTHZ PRE ADMIT Comment on above: Preoperative testing Start: 07-08-2020 End: 07-08-2020 Subsequent hospital visit by physician Lalo Lambert Work Phone: [facility] Start: 07-05-2020 End: 07-10-2020 [facility] Start: 06-24-2020 End: 06-24-2020 Subsequent hospital visit by physician Lalo Lambert Work Phone: [facility] Start: 06-18-2020 End: 06-23-2020 [facility] Start: 05-23-2020 End: 05-27-2020 Evaluation and management of inpatient Jose Bello Work Phone: [facility] 2C Ortho/Med Surg Comment on above: SBO (small bowel obs truction) (HCC) (Primary Dx) Start: 04-09-2020 End: 04-12-2020 Evaluation and management of inpatient Houston Cooper Work Phone: [facility] 2C Ortho/Med Surg Comment on above: SBO (small bowel obs truction) (HCC) (Primary Dx); Intra-abdominal adhesions s/p lysis Start: 03-29-2020 End: 04-08-2020 Evaluation and management of inpatient Guyd Sohail Bello Work Phone: [facility] 4B Stepdown Comment on above: Post-op pain (Primar y Dx) Procedures Date Procedure Procedure Detail Performing Clinician Start: 01-18-2022 Antibody screen SALVATORE DAILEY Comment on above: Order Comment: Speci men Type: BLOOD SPECIMEN Ordering Facility: [facility] Address: [address] [place] [address] [place] [address] Performed By: #### T SCR #### CC MAIN BLOOD BANK [facility] [id number] STATES OF [facility] Start: 10-07-2021 Radiologic exam ches t 2 views Carlotta Clemons RN Start: 08-08-2021 Esophagoscp rig loyd soral hypopharynx crv esoph Carlotta Clemons RN Start: 07-02-2021 Basic metabolic pane l calcium total Jose Bello DO Work Phone: Start: 07-01-2021 25 hydroxy includes fractions if performed Jose Bello DO Work Phone: Start: 07-01-2021 TPN PROFILE Hayder ly MD Work Phone: Start: 06-30-2021 Assay of ferritin Treasure Bello DO Work Phone: Start: 06-30-2021 VITAMIN B12 & FOLATE Mo thanh Bello DO Work Phone: Start: 06-30-2021 Radiologic exam upr gi trc single contrast study Hayder Peng MD Work Phone: Start: 06-30-2021 Insj prph ctr vad w/ subq port age 3 yr/> Jewel A Lexi [employer] Work Phone: Start: 06-30-2021 Nursing procedure Jewel A Lexi [employer] Work Phone: Start: 06-30-2021 End: 06-30-2021 EGD FOREIGN BODY REMOVAL Hayder Peng MD Work Phone: Start: 06-30-2021 COVID-19, RAPID Jewel A Lexi [employer] Work Phone: Start: 06-30-2021 Blood count complete auto&auto difrntl wbc Jewel A Lexi [employer] Work Phone: Start: 06-30-2021 IMMATURE PLATELET FRACTION Jewel A Lexi [employer] Work Phone: Start: 06-30-2021 Assay of magnesium Brad Hamilton MD Work Phone: Start: 06-30-2021 BASIC METABOLIC PANE L W/ REFLEX TO MG FOR LOW K Bia Hamilton MD Work Phone: Start: 08-30-2020 COVID-19 Fredo parrish MD Work Phone: Start: 08-02-2020 COVID-Jorge parrish MD Work Phone: Start: 07-19-2020 COVID- Fredo parrish Work Phone: Start: 05-27-2020 Glucose blood reagent strip Ady Shine Work Phone: Start: 05-27-2020 Assay of magnesium Moha mmad I Mashaleh Work Phone: Start: 05-27-2020 Assay of phosphorus inorganic Mohammad I Mashaleh Work Phone: Start: 05-27-2020 Blood count complete auto&auto difrntl wbc Mohammad I Mashaleh Work Phone: Start: 05-27-2020 Glucose blood reagent strip Ady Shine Work Phone: Start: 05-26-2020 Glucose blood reagent strip Ady Bartholomew Rl Work Phone: Start: 05-26-2020 COVID-19 Madeeha Sh afqat Work Phone: Start: 05-26-2020 Glucose blood reagent strip Ady Bartholomew Rl Work Phone: Start: 05-26-2020 Assay of magnesium Moha mmad I Mashaleh Work Phone: Start: 05-26-2020 Assay of phosphorus inorganic Mohammad I Mashaleh Work Phone: Start: 05-26-2020 Blood count complete auto&auto difrntl wbc Mohammad I Mashaleh Work Phone: Start: 02-10-2021 Calcium ionized Ady Shine Work Phone: Start: 05-25-2020 Glucose blood reagent strip Ady Shine Work Phone: Start: 05-25-2020 Glucose blood reagent strip Ady Shine Work Phone: Start: 05-25-2020 Glucose blood reagent strip Ady Shine Work Phone: Start: 05-25-2020 Assay of magnesium Verónicaa janed I Eugenia Work Phone: Start: 05-25-2020 Assay of phosphorus inorganic Guyd I Eugenia Work Phone: Start: 05-25-2020 Assay of triglycerides Guyd I Eugenia Work Phone: Start: 05-25-2020 Blood count complete auto&auto difrntl wbc Guyd I Eugenia Work Phone: Start: 05-25-2020 Glucose blood reagent strip Ady Shine Work Phone: Start: 05-25-2020 Glucose blood reagent strip Guyd Sohail Bello Work Phone: Start: 05-24-2020 TPN PROFILE Guyd I Eugenia Work Phone: Start: 05-24-2020 Insertion picc w/rs&i 3 yr/> Guyd I Eugenia Work Phone: Start: 05-24-2020 VITAMIN B12 & FOLATE Mo thanh I Eugenia Work Phone: Start: 05-24-2020 Assay of ferritin Verónicaam mad I Eugenia Work Phone: Start: 05-24-2020 Assay of magnesium Verónicaa mmad I Eugenia Work Phone: Start: 05-24-2020 Blood count complete auto&auto difrntl wbc Guyd I Abrahameh Work Phone: Start: 05-24-2020 Iron binding capacity M ohtanvird I Eugenia Work Phone: Start: 05-24-2020 Prothrombin time Erica ad Sohail Bello Work Phone: Start: 05-23-2020 Radiologic exam abdo men 1 view Jose Bello Work Phone: Start: 05-23-2020 Assay of magnesium Shireen Bello Work Phone: Start: 05-23-2020 Blood count complete auto&auto difrntl wbc Jose Bello Work Phone: Start: 04-12-2020 Basic metabolic pane l calcium total Blanche L Tobian Work Phone: Start: 04-12-2020 Blood count complete automated Blanche L Tobian Work Phone: Start: 04-11-2020 Basic metabolic pane l calcium total Blanche L Tobian Work Phone: Start: 04-11-2020 Blood count complete automated Blanche L Tobian Work Phone: Start: 04-11-2020 Glucose blood reagent strip Houston J Orlop Work Phone: Start: 04-11-2020 Glucose blood reagent strip Houston Ann Orlop Work Phone: Start: 04-10-2020 Glucose blood reagent strip Houston Ann Orlop Work Phone: Start: 04-10-2020 Glucose blood reagent strip Houston J Orlop Work Phone: Start: 04-10-2020 Radex small intestin e w/multiple serial images Juanjose Santos Work Phone: Start: 04-10-2020 Glucose blood reagent strip Houston J Orlop Work Phone: Start: 04-10-2020 End: 04-10-2020 Glucose blood reagent strip Houston J Or lop Work Phone: Start: 04-10-2020 Basic metabolic pane l calcium total Blanche L Tobian Work Phone: Start: 04-10-2020 Blood count complete automated Blanche L Tobian Work Phone: Start: 04-08-2020 Assay of magnesium Barry ael A Carrillo Work Phone: Start: 04-08-2020 Assay of phosphorus inorganic Mervin Carrillo Work Phone: Start: 04-08-2020 Basic metabolic pane l calcium total Mervin Carrillo Work Phone: Start: 04-08-2020 Blood count complete automated Arlyn Villegsa Work Phone: Start: 04-08-2020 Glucose blood reagent strip Houston J Orlop Work Phone: Start: 04-07-2020 Assay of magnesium Barry ael A Carrillo Work Phone: Start: 04-07-2020 Assay of phosphorus inorganic Mervin Carrillo Work Phone: Start: 04-07-2020 Basic metabolic pane l calcium total Mervin Carrillo Work Phone: Start: 04-07-2020 Blood count complete automated Arlyn Villegas Work Phone: Start: 04-07-2020 Glucose blood reagent strip Houston J Orlop Work Phone: Start: 04-06-2020 Glucose blood reagent strip Houston J Orlop Work Phone: Start: 04-06-2020 End: 04-06-2020 Glucose blood reagent strip Houston J Or lop Work Phone: Start: 04-06-2020 Assay of magnesium Barry ael A Carrillo Work Phone: Start: 04-06-2020 Assay of phosphorus inorganic Mervin Carrillo Work Phone: Start: 04-06-2020 Assay of triglycerides Mervin Carrillo Work Phone: Start: 04-06-2020 Basic metabolic pane l calcium total Mervin Carrillo Work Phone: Start: 04-05-2020 Glucose blood reagent strip Dinesh Wong Work Phone: Start: 04-05-2020 Insj prph ctr vad w/ subq port age 3 yr/> Dinesh Burgess Work Phone: Start: 04-05-2020 Basic metabolic pane l calcium total Andrew Lindsey Work Phone: Start: 04-05-2020 Blood count complete auto&auto difrntl wbc Andrew Lindsey Work Phone: Start: 04-05-2020 Glucose blood reagent strip Dinesh Burgess Work Phone: Start: 04-04-2020 LACTATE, SEPSIS Adan Lobato Work Phone: Start: 04-04-2020 Basic metabolic pane l calcium total Andrew Lindsey Work Phone: Start: 04-04-2020 Blood count complete auto&auto difrntl wbc Andrew Lindsey Work Phone: Start: 04-04-2020 End: 04-04-2020 Glucose blood reagent strip Dinesh Burgess Work Phone: Start: 04-03-2020 Assay of magnesium Will ednadelvis Lobato Work Phone: Start: 04-03-2020 End: 04-03-2020 Glucose blood reagent strip Dinesh Burgses Work Phone: Start: 04-03-2020 Culture bacterial quanttative colony count urine Daniel Moyer Work Phone: Start: 04-03-2020 End: 04-03-2020 LAPAROTOMY EXPLORATORY Daniel klein Work Phone: Start: 04-03-2020 Radex gi tract upper w/wo delayed images w/o kub Crystal I Halie Work Phone: Start: 04-03-2020 Basic metabolic pane l calcium total Saranya J Imel Work Phone: Start: 04-03-2020 Blood count complete auto&auto difrntl wbc Saranya J Imel Work Phone: Start: 04-02-2020 Ct abdomen & pelvis w/o contrast material Arlyn Villegas Work Phone: Start: 04-02-2020 Us retroperitoneal r eal time w/image complete Arlyn Villegas Work Phone: Start: 04-02-2020 End: 04-02-2020 Dup-scan xtr veins unilateral/limited study Arlyn Villegas Work Phone: Start: 04-02-2020 Radiologic exam abdo men 1 view Mervin Carrillo Work Phone: Start: 04-02-2020 Urnls dip stick/tabl et rgnt auto w/o microscopy Arlyn Villegas Work Phone: Start: 04-02-2020 Blood count complete auto&auto difrntl wbc [employer] Work Phone: Start: 04-02-2020 Blood count complete automated [employer] Work Phone: Start: 04-01-2020 Basic metabolic pane l calcium total Saranya J [employer] Work Phone: Start: 04-01-2020 Blood count complete auto&auto difrntl wbc Saranya J [employer] Work Phone: Start: 04-01-2020 Blood count reticulo cyte automated Mervin Carrillo Work Phone: Start: 04-01-2020 Blood smear peripher al interp phys w/writ report Mervin Carrillo Work Phone: Start: 04-01-2020 Level iv surg pathol ogy gross&microscopic exam Dinesh Burgess Work Phone: Start: 03-31-2020 LAB SCANNED REPORT Hpf Scanning Start: 03-31-2020 Assay of ferritin Choco heike Gastelum Renovar Work Phone: Start: 03-31-2020 Assay of thiamine-vi tamin b-1 Filiberto Gastelum Renovar Work Phone: Start: 03-31-2020 Basic metabolic pane l calcium total Saranya J [employer] Work Phone: Start: 03-31-2020 Blood count complete auto&auto difrntl wbc Saranya J [employer] Work Phone: Start: 03-31-2020 Iron binding capacity M ayan Gastelum [employer] Work Phone: Start: 03-30-2020 End: 03-30-2020 LAPAROSCOPY EXPLORATORY Daniel Baezholly on Work Phone: Start: 03-30-2020 COVID-19 Filiberto Carrillo Work Phone: Start: 03-30-2020 Blood count complete auto&auto difrntl wbc Blanche L Tobian Work Phone: Start: 03-30-2020 Blood count complete automated Blanche L Tobian Work Phone: Start: 03-30-2020 Fibrinogen activity Rivera jewels L Tobian Work Phone: Start: 03-30-2020 Prothrombin time Blanche L Tobian Work Phone: Start: 03-30-2020 Thromboplastin time partial plasma/whole blood Blanche L Toballyson Work Phone: Plan of Treatment Date Care Activity Detail Author Start: 12-15-2022 Influenza vaccination INFLUENZA (#1) [facility] Start: 10-26-2022 End: 11-24-2023 Ct abdomen & pelvis w/contrast material CT ABD/PEL W IVCON Radiology Routine Skin cancer Infection in abdomen (HCC) Expected: 10/26/2022, Expires: 11/24/2023 [facility] Work Phone: Comment on above: Expected: 10/26/2022, Expires: 4 Start: 10-26-2022 End: 11-24-2023 CT CHEST W IVCON CT CHEST W IVCON Radiology Routine Skin cancer Expected: 10/26/2022, Expires: 11/24/2023 [facility] Work Phone: Comment on above: Expected: 10/26/2022, Expires: 4 Start: 10-25-2022 End: 12-25-2022 CBC W Auto Differential panel - Blood CBC + DIFF Lab Routine Skin cancer Expected: 10/25/2022, Expires: 12/25/2022 [facility] Work Phone: Comment on above: Expected: 10/25/2022, Expires: 3 Start: 10-25-2022 End: 12-25-2022 Comprehensive metabolic 2000 panel - Serum or Plasma COMP METABOLIC PANEL Lab Routine Skin cancer Expected: 10/25/2022, Expires: 12/25/2022 [facility] Work Phone: Comment on above: Expected: 10/25/2022, Expires: 3 Start: 10-25-2022 End: 12-25-2022 Ferritin [Mass/volume] in Serum or Plasma FERRITIN BLD Lab Routine Skin cancer Expected: 10/25/2022, Expires: 12/25/2022 [facility] Work Phone: Comment on above: Expected: 10/25/2022, Expires: 3 Start: 10-25-2022 End: 12-25-2022 Folate [Mass/volume] in Serum or Plasma FOLATE SERUM Lab Routine Skin cancer Expected: 10/25/2022, Expires: 12/25/2022 [facility] Work Phone: Comment on above: Expected: 10/25/2022, Expires: 3 Start: 10-25-2022 End: 12-25-2022 Iron and Iron binding capacity panel - Serum or Plasma IRON + TIBC Lab Routine Skin cancer Expected: 10/25/2022, Expires: 12/25/2022 [facility] Work Phone: Comment on above: Expected: 10/25/2022, Expires: 3 Start: 09-21-2022 ambulatory Ambulatory Facility:[facility] Start: 09-05-2022 ambulatory Ambulatory Facility:[facility] Start: 07-02-2022 Creatinine measurement Creatinine monitoring [facility] Start: 07-02-2022 Potassium monitoring Potassium monitoring [facility] Start: 04-16-2022 DEPRESSION ASSESSMENT DEPRESSION ASSESSMENT [facility] Start: 12-15-2021 Influenza vaccination [facility] Start: 08-29-2021 End: 10-29-2021 CBC W Auto Differential panel - Blood CBC + DIFF Lab Routine Gastrojejunal ulcer Epigastric pain Preoperative examination Expected: 08/29/2021 (Approximate), Expires: 10/29/2021 [facility] Work Phone: Comment on above: Expected: 08/29/2021 (Approximate), Expi res: 10/29/2021 Start: 08-29-2021 End: 10-29-2021 Comprehensive metabolic 2000 panel - Serum or Plasma COMP METABOLIC PANEL Lab Routine Gastrojejunal ulcer Epigastric pain Preoperative examination Expected: 08/29/2021 (Approximate), Expires: 10/29/2021 [facility] Work Phone: Comment on above: Expected: 08/29/2021 (Approximate), Expi res: 10/29/2021 Start: 08-29-2021 End: 10-29-2021 CONFIRM BLOOD TYPE CONFIRM BLOOD TYPE Blood Bank Routine Gastrojejunal ulcer Epigastric pain Preoperative examination Expected: 08/29/2021, Expires: 10/29/2021 [facility] Work Phone: Comment on above: Expected: 08/29/2021, Expires: 2 Start: 08-29-2021 End: 10-29-2021 TYPE AND SCREEN,30 DAY TYPE AND SCREEN,30 DAY Blood Bank Routine Gastrojejunal ulcer Epigastric pain Preoperative examination Expected: 08/29/2021, Expires: 10/29/2021 [facility] Work Phone: Comment on above: Expected: 08/29/2021, Expires: 2 Start: 07-01-2021 End: 07-01-2021 Evaluation and management of inpatient 07/01/2021 Telemedicine Gastroenterology Delroy Ball MD [address] [place] [address] [facility] Start: 06-22-2021 End: 06-22-2021 Esophagogastroduodenoscopy transoral diagnostic EGD ESOPHAGOGASTRODUODENOSCOPY ANASTOMOTIC STENOSIS GASTRO-JEJUNOSTOMY 06/22/2021 9:11 AM EST [facility] Start: 05-31-2021 Creatinine measurement Creatinine monitoring [facility] Start: 05-31-2021 Potassium monitoring Potassium monitoring [facility] Start: 05-27-2021 Creatinine [facility] Work Phone: Start: 05-27-2021 Potassium monitoring Potassium monitoring [facility] [employer] Work Phone: Start: 05-04-2021 COVID-19 VACCINE (4 - Booster for Pfizer series) COVID-19 VACCINE (4 - Booster for Pfizer series) [facility] Start: 05-04-2021 COVID-19 VACCINE (4 - Pfizer series) COVID-19 VACCINE (4 - Pfizer series) [facility] Start: 04-16-2021 DEPRESSION ASSESSMENT DEPRESSION ASSESSMENT [facility] Start: 04-12-2021 Creatinine measurement [facility] [place] [place] Start: 04-12-2021 Potassium monitoring Potassium monitoring [facility] [employer] [place], [place] Start: 04-08-2021 Creatinine measurement Creatinine monitoring [facility] [employer] Start: 04-08-2021 Potassium monitoring Potassium monitoring [facility] [employer] [place] Start: 01-14-2021 COVID-19 Vaccine (3 - Booster for Pfizer series) COVID-19 Vaccine (3 - Booster for Pfizer series) [facility] Start: 12-15-2020 Influenza vaccination Flu vaccine (#1) [facility] Start: 08-14-2020 COVID-19 Vaccine (2 - Pfizer 2-dose series) COVID-19 Vaccine (2 - Pfizer 2-dose series) [facility] Work Phone: Start: 2018 Lipid panel Lipid screen [facility] Start: 2013 Diabetes screen Diabetes screen [facility] Start: 2013 LIPID SCREEN LIPID SCREEN [facility] Start: 1997 DTaP/Tdap/Td vaccine (1 - Tdap) DTaP/Tdap/Td vaccine (1 - Tdap) [facility] Start: 1997 Urine microalbumin profile DTAP,TDAP,TD (1 - Tdap) [facility] Start: 1996 ANNUAL PCP TEAM CHRONIC DISEASE VISIT ANNUAL PCP TEAM CHRONIC DISEASE VISIT [facility] Start: 1996 BP CONTROLLED (<130/80) BP CONTROLLED (<130/80) [facility] Start: 1996 HEPATITIS C SCREENING HEPATITIS C SCREENING [facility] Start: 1996 HIV SCREENING HIV SCREENING [facility] Start: 1994 COVID-19 Vaccine (1) COVID-19 Vaccine (1) [facility] Work Phone: Start: 1993 HIV screening HIV screen [facility] Start: 1990 Adult depression screening assessment DEPRESSION SCREENING [facility] Start: 1990 Depression Monitoring Depression Monitoring [facility] Start: 1990 Depression Screen Depression Screen [facility] Start: 1983 COVID-19 VACCINE (1) COVID-19 VACCINE (1) [facility] Start: 1978 HEPATITIS B (1 of 3 - 3-dose series) HEPATITIS B (1 of 3 - 3-dose series) [facility] Start: 1978 Hepatitis C screening Hepatitis C screen [facility] End: 04-15-2020 Basic metabolic 2000 panel Basic Metabolic Panel Lab Routine Daily for 10 Days starting 04/06/2020 until 04/15/2020, 3 completed [facility] Comment on above: Daily for 10 Days starting 04/06/2020 un til 04/15/2020, 3 completed Basic metabolic 2000 panel Basic Metabolic Panel Lab Routine Every MWF at 6:30AM (BMT lab orders) until discontinued starting 05/28/2020 [employer] Work Phone: Comment on above: Every MWF at 6:30AM (BMT lab orders) unt il discontinued starting 05/28/2020 End: 04-16-2020 Basic metabolic 2000 panel Basic Metabolic Panel Lab Routine Daily for 7 Occurrences starting 04/10/2020 until 04/16/2020, 3 completed [facility] [place] Comment on above: Daily for 7 Occurrences starting 020 until 04/16/2020, 3 completed CBC [facility] [place] Comment on above: Tomorrow AM until discontinued starting 04/07/2020, 2 completed Weekly until discont inued starting 05/25/2020 Tomorrow AM until di scontinued starting 04/10/2020, 3 completed CBC panel - Blood by Automated count CBC Lab Routine Malnutrition of moderate degree (HCC) 07/29/2021 10:02 AM EDT [facility] Work Phone: CBC WITH AUTO DIFFERENTIAL CBC W ITH AUTO DIFFERENTIAL Lab Routine Daily until discontinued starting 05/23/2020, 5 completed [facility] Work Phone: Comment on above: Daily until discontinued starting 2020, 5 completed Comprehensive metabo lic 2000 panel Comprehensive Metabolic Panel Lab Routine Weekly until discontinued starting 05/25/2020 [employer] Phone: Comment on above: Weekly until discontinued starting 05/25 Comprehensive Metabo lic Panel w/ Reflex to MG Comprehensive Metabolic Panel w/ Reflex to MG Lab Routine Daily until discontinued starting 05/23/2020, 5 completed [facility] Work Phone: Comment on above: Daily until discontinued starting 2020, 5 completed End: 08-29-2022 ECG COMPLETE ECG COMPLETE ECG Routine Gastrojejunal ulcer Epigastric pain Preoperative examination 1 Occurrences starting 08/29/2021 until 08/29/2022 [employer] Work Phone: Comment on above: 1 Occurrences starting 08/29/2021 until 08/29/2022 End: 07-29-2022 EGD - THERAPEUTIC, EUS, OR TUBE INTERVENTIONS EGD - THERAPEUTIC, EUS, OR TUBE INTERVENTIONS Endoscopy Routine 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 1 Occurrences starting 07/29/2021 until 07/29/2022 [facility] [employer] Work Phone: Comment on above: 1 Occurrences starting 07/29/2021 until 07/29/2022 End: 01-03-2023 EGD BARIATRIC EGD BARIATRIC Endoscopy Routine Dysphagia, unspecified type 1 Occurrences starting 01/03/2022 until 01/03/2023 [facility] [employer] Work Phone: Comment on above: 1 Occurrences starting 01/03/2022 until 01/03/2023 Intermittent pulse oximetry [facility] Comment on above: As Needed until discontinued starting As Needed until disc ontinued starting 05/23/2020 As Needed until disc ontinued starting 04/09/2020 End: 06-30-2021 Intermittent pulse oximetry Pulse Oximetry Spot Check Respiratory Care Routine Continuous until discontinued starting 06/30/2021 [employer] Work Phone: Comment on above: Continuous until discontinued starting 0 06/30/2021 Magnesium [Mass/Vol] Shawn coyne- FRIDA COCHRAN Comment on above: Every MWF at 6:30AM (BMT lab orders) unt il discontinued starting 04/09/2020 Every MWF at 6:30AM (BMT lab orders) until discontinued starting 05/28/2020 End: 06-30-2021 NIACIN (VITAMIN B3) [employer] Phone: Comment on above: One Time for 1 Occurrences starting 06/14 until 06/30/2021 Oxygen therapy [Mini mum Data Set] [employer] [place] Comment on above: Daily until discontinued starting 2019 Daily until disconti nued starting 05/23/2020 Daily until disconti nued starting 04/10/2020 Oxygen therapy [Mini mum Data Set] Initiate Oxygen Therapy Protocol Respiratory Care Routine As Needed until discontinued starting 06/30/2021 [employer] Phone: Comment on above: As Needed until discontinued starting Phosphate [Mass/Vol] Shawn H stanford- FRIDA COCHRAN Comment on above: Every MWF at 6:30AM (BMT lab orders) unt il discontinued starting 04/09/2020 Every MWF at 6:30AM (BMT lab orders) until discontinued starting 05/28/2020 End: 04-12-2020 POCT Glucose POCT Glucose Point of Care Testing Timed Every 6 Hours (Lab) for 7 Days starting 04/05/2020 until 04/12/2020 [facility] Comment on above: Every 6 Hours (Lab) for 7 Days starting 04/05/2020 until 04/12/2020 End: 05-31-2020 POCT Glucose POCT Glucose Point of Care Testing Timed Every 6 Hours (Lab) for 7 Days starting 05/24/2020 until 05/31/2020 [employer] Phone: Comment on above: Every 6 Hours (Lab) for 7 Days starting 05/24/2020 until 05/31/2020 POCT Glucose [facility]- [place] FRIDA Hernandez Comment on above: As Needed until discontinued starting 02 /01/2021 As Needed until disc ontinued starting 04/10/2020 End: 09-28-2022 Radiologic exam chest 2 views XR CHEST 2V FRONTAL/LAT Radiology Routine Gastrojejunal ulcer Epigastric pain Preoperative examination 1 Occurrences starting 08/29/2021 until 09/28/2022 [facility] [employer] Work Phone: Comment on above: 1 Occurrences starting 08/29/2021 until 09/28/2022 REFER FOR ADMIT INTERVIEW REFER FOR ADMIT INTERVIEW Procedures Routine Gastrojejunal ulcer Epigastric pain Preoperative examination Ordered: 08/29/2021 [facility] [employer] Work Phone: Comment on above: Ordered: 08/29/2021 End: 06-30-2021 Selenium serum [employer] Work Phone: Comment on above: One Time for 1 Occurrences starting 06/14 until 06/30/2021 SURGICAL PATHOLOGY [facility] Work Phone: Comment on above: Release Upon Ordering for 1 Occurrences starting 08/08/2021, 1 completed URINALYSIS, REFLEX MICROSCOPIC URINALYSIS, REFLEX MICROSCOPIC Lab Routine Screening for genitourinary condition [facility] [employer] Work Phone: Comment on above: Ordered: 10/27/2021 End: 10-26-2022 US ARM VEIN DVT AMANDA VAS LAB US ARM VEIN DVT AMANDA VAS LA B Vascular Lab Routine Personal history of DVT (deep vein thrombosis) 1 Occurrences starting 10/26/2021 until 10/26/2022 [facility] [employer] Work Phone: Comment on above: 1 Occurrences starting 10/26/2021 until 10/26/2022 End: 09-30-2020 US GI ENDOSCOPIC S&I US GI ENDOSCOPIC S&I Imaging Routine Once for 1 Occurrences starting 09/30/2020 until 09/30/2020 [employer] Work Phone: Comment on above: Once for 1 Occurrences starting 10/01/19 until 09/30/2020 US GI ENDOSCOPIC S&I US GI ENDOS COPIC S&I Imaging Routine 09/30/2020 7:30 AM EDT [employer] Work Phone: End: 06-30-2021 Vitamin B1 [employer] Phone: Comment on above: One Time for 1 Occurrences starting 06/14 until 06/30/2021 End: 06-30-2021 VITAMIN B6 [employer] Phone: Comment on above: One Time for 1 Occurrences starting 06/14 until 06/30/2021 End: 06-30-2021 VITAMIN E [employer] Work Phone: Comment on above: One Time for 1 Occurrences starting 06/14 until 06/30/2021 End: 08-28-2022 XR UPPER GI SINGLE CONTRAST XR UPPER GI SINGLE CONTRAS T Radiology Routine Malnutrition of moderate degree (HCC) Gastrogastric fistula 1 Occurrences starting 07/29/2021 until 08/28/2022 [facility] Work Phone: Comment on above: 1 Occurrences starting 07/29/2021 until 08/28/2022 [facility] Immunizations Immunization Date Immunization Notes Care Provider [facility] 04-08-2020 influenza, injectabl e, quadrivalent, preservative free [facility] 03-29-2020 influenza quadrivale nt split vaccine (FLUZONE;FLUARIX;FLULAVA L;AFLURIA) injection 0.5 mL [facility] [place] Payers Date Payer Category Payer Medicaid [place] [employer] [place] [employer] [id number] 2021-Present [phone] [address] [place] [address] Medicaid [id number] 2021 Medicaid [id number] [id number] 1978 Unknown [id number] 2.16.840.1.024256.3.579.2.173 1978 Unknown [id number] 2.16.840.1.434800.3.579.2.173 1978 Unknown [id number] 2.16.840.1.185532.3.579.2.173 1978 Unknown [id number] 2.16.840.1.269760.3.579.2.173 1978 Unknown [id number] 2.16.840.1.194106.3.579.2.173 1978 Unknown [id number] 2.16.840.1.278006.3.579.2.173 1978 Unknown [id number] 2.16.840.1.620292.3.579.2.175 1978 Unknown [id number] 2.16.840.1.183753.3.579.2.175 1978 Unknown [id number] 2.16.840.1.506740.3.579.2.175 1978 Unknown [id number] 2.16.840.1.307395.3.579.2.175 1978 Unknown [id number] 2.16.840.1.064410.3.579.2.175 1978 Unknown [id number] 2.16.840.1.264275.3.579.2.175 1978 Unknown [id number] 2.16.840.1.193825.3.579.2.175 1978 Unknown [id number] 2.16.840.1.532326.3.579.2.175 1978 Unknown [id number] 2.16.840.1.365501.3.579.2.175 1978 Unknown [id number] 2.16.840.1.435173.3.579.2.175 1978 Unknown [id number] 2.16.840.1.381004.3.579.2.175 1978 Unknown [id number] 2.16.840.1.018751.3.579.2.593 1978 Unknown [id number] 2.16.840.1.954485.3.579.2.593 1978 Unknown [id number] 2.16.840.1.926456.3.579.2.593 1978 Unknown [id number] 2.16.840.1.553183.3.579.2.593 1978 Unknown [id number] 2.16.840.1.148727.3.579.2.593 1978 Unknown [id number] 2.16.840.1.197175.3.579.2.593 1978 Unknown [id number] 2.16.840.1.863888.3.579.2.593 1978 Unknown [id number] 2.16.840.1.070360.3.579.2.593 1978 Unknown [id number] 2.16.840.1.690548.3.579.2.593 1978 Unknown [id number] 2.16.840.1.550084.3.579.2.593 1978 Unknown [id number] 2.16.840.1.072920.3.579.2.593 1978 Unknown [id number] 2.16.840.1.618036.3.579.2.593 1978 Unknown [id number] 2.16.840.1.155251.3.579.2.593 1978 Unknown [id number] 2.16.840.1.769499.3.579.2.593 1978 Unknown [id number] 2.16.840.1.407605.3.579.2.593 1959 Unknown [id number] 1.2.840.456214.1.13.239.2.7.3.6 [id number] Social History Date Type Detail Facility Start: 04-05-2020 End: 07-29-2021 Tobacco smoking status NHIS Never smoker [place], [place] Start: 04-05-2020 End: 07-29-2021 Tobacco use and exposure Never used [place], [place] Start: 04-05-2020 End: 01-19-2022 Alcohol intake Lifetime non-drinker (finding) [place] Start: 03-29-2020 End: 08-08-2021 History SDOH Alcohol Frequency 1 [place], [place] Start: 1980 Sex Assigned At Not on file [place] Start: 05-31-2021 End: 01-18-2022 Exposure to SARS-CoV-2 (event) Not sure [place] Start: 09-02-2020 End: 10-25-2022 Alcohol intake [facility] [employer] Work [facility] Start: 1980 Sex Assigned At Male C [facility] Start: 01-19-2022 End: 10-25-2022 Tobacco use panel [facility] National Score (1-10 0), lower number is lower risk 94 [facility] Start: 07-07-2021 Gender identity Identifies as male gender (finding) [facility] Start: 07-07-2021 Sexual orientation Heterosexual (fin ding) [facility] Medical Equipment Procedure Code Equipment Code Equipment Origin al Text Equipment Identifier Dates Stent Gi Cath 10 .8fr L138cm Tot L146cm Flng Nbh85by Lumn - [id number] Start: 09-30-2020 Comment on above: Description: AXIOS G -J STENT Stent Pancreatic Electrocautery [id number] Mm 10.8 [id number] Cm [id number] Start: 11-25-2020 Comment on above: Description: axios e lectrocautery-enhanced; stent and electrocautery-enhanced delivery system Stent Gi Cath 10 .8fr L138cm Tot L146cm [id number] [id number] Start: 02-17-2021 Comment on above: Description: axios s tent placed into stomach into jejunum Clinical Notes 08-05-2020 to 11-30-2022 Telephone Encounter - Anay Tee MD - 11/30/2022 5:40 PM EDTTelephone Encounter - Anay Tee MD - 11/30/2022 7:15 AM EDTTelephone Encounter - Arlene Carrillo RN - 11/17/2022 10:19 AM EDT Note Date & Type Note Facility 11-30-2022 Miscellaneous Notes Summary: [facility] Tumor Board Non-Melanoma Skin Cancer Tumor Board Referring Provider: Dr. Ermelinda Bran Case presented: 11/30/2022 Lesion(s) Reviewed: 42 yo male with history of gastric bypass and abdominal wound with bx c/w scc in 2021. Discussion regarding further management. Recommendations/Follow up: Team recommendations for continued close monitoring, q6 mo with Dr. Ermelinda Tee MD documented in this encounter [facility] 11-30-2022 Miscellaneous Notes Non-Melanoma Skin Cancer Tumor Board Referring Provider: Dr. 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 Patient said he called scheduling yesterday and was told. Reminded 1st treatment scheduled for 11/22 visible on MyChart. Patient asked if Dr Gerardo would discuss how big the lesions are- informed she will discuss next visit, after tumor board meets. All questions answered. Arlene Carrillo, RN Patient saw missed call and called back. Informed of results and plan to discuss at skin tumor board. He stated he used to have iron infusions through PCP but there has been a change in providers and he would like to receive here if possible. Told him I would share with Dr Gerardo. All questions answered. Arlene Carrillo RN Imagining and labs reviewed by Dr Gerardo. Attempted to call with updates- no voicemail available. Arlene Carrillo RN documented in this encounter [facility] 11-08-2022 Note HNO ID: [id number] Author: Yina Lin RT(R) Service: Radiology Author Type: Technologist Type: Progress Notes Filed: 11/08/2022 8:47 AM Note Text: Radiology Service Progress Note DATE OF SERVICE: November 08, 2022 TIME: 8:44 AM PATIENT IDENTITY VERIFICATION COMPLETED USING TWO (2) STANDARD IDENTIFIERS: Name and Date of confirmed by patient verbally and Name and Date of confirmed by identification band. FALL SCREENING: Has the patient had 2 falls in the last year or 1 fall with injury or currently using an Ambulatory Assistive Device (Walker, Cane, Wheelchair, Crutches, etc.)? No PATIENT GENDER DATA: Male PATIENT RELEVANT IMPLANT DATA REVIEWED: Not Applicable ALLERGIES: Reviewed and unchanged CONTRAST ALLERGY: NO. EXAM: CT -CONTRAST INDUCED NEPHROPATHY RISK FACTORS: Not applicable CREATININE: Creatinine Date Value Ref Range Status 01/20/2022 0.50 (L) 0.73 - 1.22 mg/dL Final 01/19/2022 0.56 (L) 0.73 - 1.22 mg/dL Final 01/18/2022 0.67 (L) 0.73 - 1.22 mg/dL Final Estimated Glomerular Filtration Rate Date Value Ref Range Status 01/20/2022 130 >=60 mL/min/1.73m? Final Comment: Estimated Glomerular Filtration Rate (eGFR) is calculated using the 2020 CKD-EPI creatinine equation. This equation utilizes serum creatinine, sex, and age as parameters. The creatinine assay has traceable calibration to isotope dilution-mass spectrometry. Refer to KDIGO guidelines for clinical interpretation. In patients with unstable renal function, e.g. those with acute kidney injury, the eGFR may not accurately reflect actual GFR. P.O.C.T. RESULTS: POC done: Yes, See Lab Tab November 08, 2022 TREATMENT: N/A PERIPHERAL IV DATA: Ambulatory: A peripheral IV was started in the Left forearm with a Angio cath: 22 gauge. RADIOLOGY DEPARTMENT: CT; Exam(s) Completed: Chest Abdomen Pelvis SIGNATURE: Yina Lin, RT(R) PATIENT NAME: Sabina Espinoza DATE: November 08, 2022 TIME: 8:44 AM [facility] 10-25-2022 Note HNO ID: [id number] Author: Yina Gerardo MD Service: ? Author Type: Physician Type: Progress Notes Filed: 10/26/2022 5:52 AM Note Text: [facility] Solid Tumor Oncology Initial Consultation Note Patient name: Sabina Espinoza Clinic number: [id number] Primary Care Physician: Salvatore Camargo MD Date of service: October 25, 2022 Reason for consultation: History of squamous cell carcinoma Referring Physician: Dr. Alysa Asencio (General Surgery) Final recommendations will be communicated back to the requesting physician by way of the shared medical record. History of Present Illness: Sabina Espinoza is a 42 year old male who is referred for evaluation of squamous cell carcinoma on abdomen. Oncologic history as follows: Biopsy of abdominal wall 10/13/2022 shows moderately differentiated SCC of abdominal wall. He has a complicated medical history which includes numerous abdominal surgeries including gastric bypass surgery complicated by esophageal narrowing requiring multiple dilations and stents. - 2010: Initial Gastric Bypass Surgery - 2020: Abdominal surgery to remove adhesions complicated by small bowel obstruction - 2020: He has hx of recurrent abscess formation on abdominal wall with infections which began in 2019 and has been intermittently present for past 3 years. Describes abscess as coming up from skin associated with redness, bleeding and drainage that occurs intermittently every few months over the years which he had seen previous surgeons and had hospital visits for. Been treated with abx or drainage and referrals to wound clinic, general surgery and dermatology. - 10/13/2021 Surgery: Gastric Bypass Revision by Dr. Asencio. During surgery, During surgery, suspicious mass on inner abdominal wall located pily-umbilically was found and sent for for biopsy. He reports he has lost 230 pounds since his initial gastric bypass surgery. - 10/13/2021 Biopsy of abdominal wall showed moderately differentiated SCC. Two other biopsies of the stomach and small intestine were also taken and were unremarkable. - 01/19/2022 Biopsy: During hospitalization for nausea and vomiting secondary to Gastric Bypass, pt had symptomatic pily-umbilical abscess/mass which was biopsied at that time. 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 - 07/27/2022 abscess/mass removal: Pt presented to [facility] for evaluation of symptomatic abscess/mass located pily-umbilical abdomen. Mass was excised by Dr. Her (TOM-HYBRID TESTER) and biopsy confirmed mass was benign. (No outside records of this). - 07/30/2022 Hospital Admission: He gradually developed pain, redness, and drainage of the area again and was admitted to [facility] -08/01/2022 for abdominal wall cellulitis secondary to wound dehiscence infection. He was initially tx with empiric vancomycin and then doxycycline at discharge. Wound was 3.7 x 2.4 x 0.5 cm in size, and debrided with dressing placed. He performed dressing changes twice daily, and also had [facility] perform weekly dressing changes. - 08/06/2022 Hospital Visit: Pt presented again to the hospital c/o fevers, chills and pains secondary to wound. He was afebrile, the sutures were removed and he was d/c with second round of doxycycline. He did not follow up with dermatology on 08/10 or 08/17 in person. Last saw wound clinic on 08/09/2022 for wound debridement and reassessed on 08/18/2022. - He was referred by Dr. Asencio for possible oncological treatment of SCC from biopsy on 09/2021. -Pertinent PMHx: anemia, bowel obstruction, b/l LE neuropathy -Pertinent PSHx: Gastric Bypass 2009 complicated by tear, Gastric Bypass Revision Surgery 2021, Abd Adhesions Removal 2009 complicated by small bowel obstruction, cholecystectomy 2010 with complications, Multiple esophageal dilations and 2 stents secondary to Gastric Bypass Surgery. -Fhx: Paternal Hx of NM and CAD ( age 58 from [place]), Maternal Hx of atherosclerosis ( age 68) -SocHx: Denies alcohol use, nicotine use, and recreational drug use. Does not work currently, wants to be on disability. Lives at home with daughter (18 y/o) and step-father. Diet consists of crackers, chocolate and cheese. States his life is significantly affected by GI sx s/p Gastric Bypass and abdominal surgeries which stops him from leaving home and eating healthy. Review Of Systems: All systems reviewed with pertinent positives and negatives as outlined in the HPI. Allergies: ALLERGIES Allergen Reactions Prochlorperazine Mental Status Change Valsartan Intolerance Current Medications: Current Outpatient Medications on File Prior to Visit Medication Sig therapeutic multivitamin-minerals (THERA-M PLUS) 9 mg iron-400 mcg tablet Take 1 tablet by mouth every morning. DULoxetine (CYMBALTA) 30 mg capsule Take 30 mg (more content not included)... [facility] 10-25-2022 History of Presen t illness Narrative [facility] Solid Tumor Oncology Initial Consultation Note Patient name: Sabina Espinoza Clinic number: [id number] Primary Care Physician: Salvatore Camargo MD Date of service: October 25, 2022 Reason for consultation: History of squamous cell carcinoma Referring Physician: Dr. Alysa Asencio (General Surgery) Final recommendations will be communicated back to the requesting physician by way of the shared medical record. History of Present Illness: Sabina Espinoza is a 42 year old male who is referred for evaluation of squamous cell carcinoma on abdomen. Oncologic history as follows: Biopsy of abdominal wall 10/13/2022 shows moderately differentiated SCC of abdominal wall. He has a complicated medical history which includes numerous abdominal surgeries including gastric bypass surgery complicated by esophageal narrowing requiring multiple dilations and stents. - 2010: Initial Gastric Bypass Surgery - 2020: Abdominal surgery to remove adhesions complicated by small bowel obstruction - 2020: He has hx of recurrent abscess formation on abdominal wall with infections which began in 2019 and has been intermittently present for past 3 years. Describes abscess as coming up from skin associated with redness, bleeding and drainage that occurs intermittently every few months over the years which he had seen previous surgeons and had hospital visits for. Been treated with abx or drainage and referrals to wound clinic, general surgery and dermatology. - 10/13/2021 Surgery: Gastric Bypass Revision by Dr. Asencio. During surgery, During surgery, suspicious mass on inner abdominal wall located pily-umbilically was found and sent for for biopsy. He reports he has lost 230 pounds since his initial gastric bypass surgery. - 10/13/2021 Biopsy of abdominal wall showed moderately differentiated SCC. Two other biopsies of the stomach and small intestine were also taken and were unremarkable. - 01/19/2022 Biopsy: During hospitalization for nausea and vomiting secondary to Gastric Bypass, pt had symptomatic pily-umbilical abscess/mass which was biopsied at that time. 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 - 07/27/2022 abscess/mass removal: Pt presented to [facility] for evaluation of symptomatic abscess/mass located pily-umbilical abdomen. Mass was excised by Dr. Her (TOM-HYBRID TESTER) and biopsy confirmed mass was benign. (No outside records of this). - 07/30/2022 Hospital Admission: He gradually developed pain, redness, and drainage of the area again and was admitted to [facility] -08/01/2022 for abdominal wall cellulitis secondary to wound dehiscence infection. He was initially tx with empiric vancomycin and then doxycycline at discharge. Wound was 3.7 x 2.4 x 0.5 cm in size, and debrided with dressing placed. He performed dressing changes twice daily, and also had [facility] perform weekly dressing changes. - 08/06/2022 Hospital Visit: Pt presented again to the hospital c/o fevers, chills and pains secondary to wound. He was afebrile, the sutures were removed and he was d/c with second round of doxycycline. He did not follow up with dermatology on 08/10 or 08/17 in person. Last saw wound clinic on 08/09/2022 for wound debridement and reassessed on 08/18/2022. - He was referred by Dr. Asencio for possible oncological treatment of SCC from biopsy on 09/2021. -Pertinent PMHx: anemia, bowel obstruction, b/l LE neuropathy -Pertinent PSHx: Gastric Bypass 2009 complicated by tear, Gastric Bypass Revision Surgery 2021, Abd Adhesions Removal 2009 complicated by small bowel obstruction, cholecystectomy 2010 with complications, Multiple esophageal dilations and 2 stents secondary to Gastric Bypass Surgery. -Fhx: Paternal Hx of NM and CAD ( age 58 from [place]), Maternal Hx of atherosclerosis ( age 68) -SocHx: Denies alcohol use, nicotine use, and recreational drug use. Does not work currently, wants to be on disability. Lives at home with daughter (18 y/o) and step-father. Diet consists of crackers, chocolate and cheese. States his life is significantly affected by GI sx s/p Gastric Bypass and abdominal surgeries which stops him from leaving home and eating healthy. Review Of Systems: All systems reviewed with pertinent positives and negatives as outlined in the HPI. Allergies: ALLERGIES Allergen Reactions Prochlorperazine Mental Status Change Valsartan Intolerance Current Medications: Current Outpatient Medications on File Prior to Visit Medication Sig therapeutic multivitamin-minerals (THERA-M PLUS) 9 mg iron-400 mcg tablet Take 1 tablet by mouth every morning. DULoxetine (CYMBALTA) 30 mg capsule Take 30 mg by mouth twice daily. pantoprazole DR (PROTONIX) 40 mg tablet Take 40 mg by mouth once daily. pregabalin (LYRICA) 150 mg capsule Take 150 mg by mouth three times daily. zolpidem (AMBIEN) 10 mg Take 10 mg by mouth at bedtime as needed. No current facility-administered medications on file prior to visit. Past Medical History: PAST MEDICAL HISTORY Diagnosis Date History of transfusion HTN (hypertension) 10/07/2021 PAST SURGICAL HISTORY Procedure Laterality Date EGD PAST SURGICAL HISTORY OF 2009 gastric bypass PAST SURGICAL HISTORY OF abdominal surgeries PAST SURGICAL HISTORY OF Right knee surgery PAST SURGICAL HISTORY OF rhinoplasty and revision REMOVAL GALLBLADDER Social History: Social History Tobacco Use Smoking status: Never Smokeless tobacco: Never Substance Use Topics Alcohol use: Never Drug use: Never Family History: FAMILY HISTORY Problem Relation Age of Onset No Known Problems Mother No Known Problems Father PHYSICAL EXAM: ECOG Performance Score: 0 General Appearance: Well-appearing male, NAD. Awake and alert. Skin: +9 inch linear healed suture on abdomen extending from low sternum to below umbilicus. Healed circular abdominal wound located periumbilicus. Warm, dry, no rashes. Eyes: PERRL, EOMI, anicteric, no tearing or discharge ENT: Oropharynx: MMM, nonerythematous, no lesions or exudates Trismus: none Tongue mobility: Excellent Dentition: Good Neck: No thyromegaly or palpable masses Lymph: No palpable cervical or supraclavicular JESSICA Resp: Clear to bases bilaterally, no crackles or wheezes CVS: RRR, no m/r/g appreciated. Distal pulses intact and equal. Abdomen: Soft, NTTP, no HSM, bowel sounds heard. Musculoskeletal: No obvious bony or joint abnl, no LE edema Neurologic: Oriented x 3, face symmetric. Gait normal, speech and thought process normal. Sensation intact. Labs: Reviewed. Radiologic Imaging: Surgical Pathology 10/13/2021: Soft tissue abdominal wall shows moderately differentiated squamous cell carcinoma. Stomach biopsy negative pathologic abnormality. Small intestine biopsy with small serosal adhesions. 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 Impression and Plan: The patient is a 42 year old male with SCC of abdomen skin who is referred for further evaluation and treatment. #1 Squamous Cell Carcinoma of Periumbilical Abdominal Skin - Explained to patient Dx of SCC is due to chromic inflammation in a non-healing state secondary to recurring infections of abdominal area. - Will follow up with patient with blood work and updated imaging - The above findings were reviewed with the patient. Etiology of the disease, expected natural history and treatment approach of patient's cancer also discussed in detail. TEACHING PHYSICIAN ATTESTATION NOTE I have reviewed the progress note obtained and documented by the resident/fellow physician and I personally participated in the chapin components of care. I corrected portions of the above documentation as appropriate. Chronic non-healing, wound dehiscence in setting of multiple abdominal surgeries, most recently in September 2021 for revision of gastric bypass. Biopsy of abdominal wall at that time demonstrated SCC. Assume AM+ given non-oncologic nature of resection. Last imaging in July 2022 demonstrates skin and soft tissue thickening with no evidence of discrete mass. I am unable to personally view these images directed, only review report. Recommend to obtain updated CT imaging and labs. Will review at Multidisciplinary Tumor Board. Consider further surgical revision/correction if necessary and feasible vs consideration of trial of immunotherapy. R/B/A were discussed. Unlikely wound healing will completely resolve if residual carcinoma remains. I am reassured by the fact his prior imaging failed to reveal obvious tumor progression, and clinically he appears non-toxic and overall in decent health. We discussed likely need for chronic vitamin and iron supplementation given his surgical history. Will review labs, including iron studies and B12. Yina Gerardo M.D. Staff, Hematology & Oncology I spent a total of 65 minutes on the date of the service which included preparing to see the patient, [id number] patient care, completing clinical documentation, obtaining and/or reviewing separately obtained history, performing a medically appropriate examination, counseling and educating the patient/family/caregiver, ordering medications, tests, or procedures, communicating results to the patient/family/caregiver, and care coordination (not separately reported). documented in this encounter [facility] 10-25-2022 Nurse Note Additional intake questions: Has the patient had fever, nausea, vomiting, diarrhea, constipation, fatigue for > 1 week? Yes, constipation (day of last BM yesterday ), diarrhea ( none times in last 24 hours), and fatigue Does the patient have a decreased appetite? Yes, decrease Does patient want to see a Strap Folding Machine Operator? No (yes to any of above refer patient to schedulers for dietitian appointment) ) Does patient have any new or increased numbness or tingling of extremities? Yes, feet history of neuropathy Is patient interested in fertility information? NA Does patient need any prescription refills? No Does patient have an advanced directive in place? No, Patient refused referral to Social Work or Resource Center documented in this encounter [facility] 10-13-2022 Miscellaneous Notes I contacted patient, spoke to patient he is requesting an Oncology appointment for squamous cell carcinoma findings, I contacted cancer answer line for immediate referral, Ca line will contact patient directly today Sabina Bean PA-C documented in this encounter [facility] 10-12-2022 Miscellaneous Notes Spoke to patient, advised that Myles contacted oncology and their department indicated to him that they would be reaching out to the patient today. David Roberts RN October 13, 2022 10:55 AM Patient called stating he hasn't heard back from anyone regarding an order to onocology.. Mr. Espinoza is requesting a return call [phone] documented in this encounter [facility] 07-06-2022 Note CONSULTATION CONSULTATION DATE: 07/06/2022 TO: [facility] Dr. Call CHIEF COMPLAINT: Includes right side abdominal pain, flank pain. HISTORY: The patient describes the pain as being 7.5/10, shooting pain with a sharp component, increased with activity such as lifting maneuvers, pushing/pulling maneuvers. Patient also reports he is sensitive to even light touch in this area. He feels most comfortable in the semi-recumbent position. Denies any change in bowel and bladder habits. Denies any change in symptomatology with application of heat or ice. EXAM: Reveals the patient with dysesthesia and hypoesthesia along the distribution of the right T10 dermatome with severe myofascial dystonic changes along the right rectus abdominis muscle, approximately 2-3 cm just lateral to the umbilicus and slightly inferior to the umbilicus. CURRENT MEDICATION: Percocet 5 mg pills b.i.d. p.r.n. He reports the medicine does improve his quality of life, level of functioning and sleep pattern. He is also on Lyrica 100 mg t.i.d., baclofen 10 mg p.o. daily p.r.n. IMPRESSION: 1. 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 2. Myofascial dysfunction with dystonic changes involving at least the right rectus abdominis muscle. RECOMMENDATIONS: I recommend increasing his baclofen 10 mg pills 1-2 up to t.i. d. as tolerated and reduce his use of Percocet as tolerated, 50 pills to last him one month's time, not for daily use; one pill b.i.d. and these are 5 mg pills; and to consider proceeding with a right T10 and T11 intercostal nerve injection as well as injection of the anterior branches. We will use a nerve stimulator and dye to confirm needle tip placed. Gone over the details of the procedure with the patient. All his questions answered. Agrees to proceed with the outlined plan. Obtained urine toxicology screen on today's visit. [facility] 03-28-2022 Note CONSULTATION CONSULTATION DATE: 03/28/2022 CHIEF COMPLAINT: Intractable abdominal pain. HISTORY OF PRESENT ILLNESS: This is a 41-year-old gentleman who has had a gastric bypass. The patient has had complications from it and had a revision of the original gastric bypass, which was done in 2009, just September of last year. The patient has severe abdominal pain. The patient has appointment scheduled with [facility] on May 12. The patient is taking Lyrica 150 mg t.i.d., duloxetine 30 mg, Percocet 5/325 b.i.d., which the patient was restarted on by us., baclofen 10 mg, magnesium glycinate. We have a U-Tox on the patient's initial visit, which was negative for Percocet, and the patient had not received a script 60 days prior. The patient's PAST MEDICAL HISTORY / SURGICAL HISTORY / REVIEW OF SYSTEMS are noted on the chart along with the MEDICATION LIST / ALLERGIES and RADIOLOGICAL IMAGES. PHYSICAL EXAM: Upon physical examination, this is a pleasant, cooperative gentleman, who does not appear to be in any acute distress. VITAL SIGNS: His blood pressure is elevated at 165/98 with a heart rate of 116. At a height of 5'10 , the patient weighs 216 pounds. ABDOMEN: The patient has significant scarring along the abdominal wall. Jump responses are noted. The patient is tender along the epigastrium, right hand side greater than left hand side. The remainder of the examination is within normal functional limits IMPRESSION: Chronic abdominal pain, status post multiple surgeries; intractable abdominal pain. PLAN: We have encouraged to maintain the appointment with [facility] on May 12. In the interim, Percocet 5/325 b.i.d. will be refilled. Given that the patient has had complications with the gastric surgery, we will look to proceed with a diagnostic splanchnic nerve block bilaterally to see whether we can interrupt or disrupt the pain symptoms outside of the abdominal cavity, as opposed to doing a celiac plexus block. The patient understands and would like to proceed. CC: Augustin Nelson PA-C [facility] 02-28-2022 Note CONSULTATION CONSULTATION DATE: 02/28/2022 HISTORY OF PRESENT ILLNESS: This is a 41-year-old gentleman who was referred to us by from [facility]. The patient has had chronic abdominal pain. The patient underwent a gastric surgery in 2009 which had complications. Subsequent to the complications, the patient has had multiple surgeries, three separate times, by Dr. Alysa Asencio, a revision of the Lauren-en-Y procedure that the patient had had. The patient states he has adhesion and constrictions. The patient also has esophageal constriction and had undergone an esophageal dilatation and stents placed by Dr. Asencio. The patient describes the pain as an 8/10. It varies; sharp, throbbing. The patient states he has difficulty in getting himself in a comfortable position. Twisting, turning, sitting aggravate a component of the patient's pain, as does laughter. The patient cannot tolerate NSAIDs secondary to the GI surgeries. The patient currently takes Lyrica 150 mg t.i.d., duloxetine 30 mg b.i.d., zolpidem 10 mg. The patient, in the past, was taking Percocet; however, his family physician has changed and, as such, was referred to us. The patient has been hospitalized for 30+ days this year. The patient has had sepsis from the PICC line. The patient is scheduled to be seen by Dr. Asencio later this week from the GI aspect. The patient also gives a history of a basal cell CA along the inferior umbilicus, which is being monitored at this point. This is the history we were able to extract from the patient. No radiological images are available. PHYSICAL EXAM: Upon physical examination, this is a pleasant, 41-year-old gentleman who looks older than stated age. VITAL SIGNS: Elevated at 142/110 with a heart rate of 104. At a height of 5'10 , the patient weighs 95 kg. HEAD: Atraumatic. The patient is edentulous. NECK: No guarding is noted. HEART: No orthopnea. LUNGS: Non-labored breathing. ABDOMEN: Extensive surgical scarring is noted along the abdomen. Significant spasming along the rectus abdominis is noted bilaterally. The patient is hyperhidrotic. EXTREMITIES: No pedal edema. MUSCULOSKELETAL: Intact in the lower extremities. The patient has been on soft foot and is scheduled to be able to take solids in the near future. DIAGNOSIS: Current working diagnosis on the patient is complicated gastric bypass with multiple GI surgeries, strictures and contractures, history of sepsis, recent esophageal dilatation, chronic abdominal pain, hypertension. PLAN: We will take a step-manzanares approach with the patient given his complexity. We will add magnesium glycinate, baclofen 10 mg q.p.m., Percocet 5/325 b.i.d. will be given to the patient, educating him with regards to its effect on the GI. A U-Tox will be done in the office today. We will also prescribe lidocaine and/or Salonpas for the patient to apply along the anterior axilla bilaterally to help mitigate a component of his pain symptomatology. I believe that the patient does have the abdominal pain and maybe a candidate for a splanchnic nerve block to see whether we can mitigate his pain. He would not be a candidate for a celiac block, given the fact that he has had multiple abdominal surgeries and adhesions. CC: [facility] 01-20-2022 Note HNO ID: [id number] Author: Becca Gonzalez RN Service: Care Management Author Type: Registered Nurse Type: Care Mgt Progress Note Filed: 01/20/2022 4:22 PM Note Text: CARE MANAGEMENT DISCHARGE NOTE SERVICE DATE: 01/20/2022 SERVICE TIME: 4:20 PM LOS: 2 days Admission Date: 01/18/2022 DISCHARGE ARRANGEMENT (list agency and phone number) Discharge Arrangement: Home with Home Health CAREGIVER ASSESSMENT: Caregiver is ready, willing and able to meet the patient's needs as recommended by the inter-professional team:: No Caregiver needed HANDOFF COMMUNICATION: Handoff to: Primary Care Physician Primary Care Physician Name/Phone: Dr Camargo TRANSPORTATION ARRANGEMENTS: Transportation Arrangements: Uber/Lyft (through insurance [employer]) ADDITIONAL CONTACT RESOURCES: Discharge Information Row Name ED to Hosp-Admission (Current) from 01/18/2022 [facility] [employer] Transportation Hotline [phone] Home Health Care Agency [facility], [facility]. Patient d/c ready to home today with [facility] services provided by [facility] with confirmed SOC date within 24-48 hours of discharge. Patient to be transported home through his insurance company. Patient aware of plan and has been provided with [facility] contact information via AVS. Bedside RN aware of plan. DC instructions sent to [employer] via [employer]. SIGNATURE: Becca Gonzalez RN PATIENT NAME: Sabina Espinoza DATE: January 20, 2022 TIME: 4:20 PM PAGER/CONTACT #: [phone] [facility] 01-19-2022 Note HNO ID: [id number] Author: Becca Gonzalez RN Service: Care Management Author Type: Registered Nurse Type: Care Mgt Initial Assessment Filed: 01/19/2022 1:17 PM Note Text: CARE MANAGEMENT: ASSESSMENT AND DISCHARGE PLAN SERVICE DATE: January 19, 2022 SERVICE TIME: 1:09 PM PRIMARY CARE PHYSICIAN: Salvatore Camargo MD, MD Primary Contact: Extended Emergency Contact Information Primary Emergency Contact: NAGI VILLANUEVA Mobile Relation: Step parent ADMISSION STATUS: Inpatient Insurance Provider: [employer] MEDICAID NEEDS PRIOR TO DISCHARGE Needs Prior to Discharge: Home Care Order POTENTIAL TRANSITION PLANS Home Care ADVANCE DIRECTIVES Current Advance Directive: Health Care Power of Automation Application Engineer In Chart: No MS/BEHAVIOR Baseline Mental Status Prior to this Illness what was the patient's Baseline Mental Status?: Alert AND Oriented Prior to this illness, has anyone described the patient having any of the following behaviors?: Not Applicable 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 Discharge Transportation: [employer] (through insurance [employer]) Discharge Barriers: Hospital course CM met with pt at bedside, pt is admitted for Abd Pain. Pt is [facility] and wants to resume. Need F2F ordered. Pt to use insurance transport home when discharge ready. Pt to call [employer]ton[employer] @ [phone] to arrange discharge transportation. CM will continue to follow. SIGNATURE: Becca Gonzalez RN PATIENT NAME: Sabina Espinoza DATE: January 19, 2022 TIME: 1:09 PM CONTACT #: [phone] [facility] 01-19-2022 Note HNO ID: [id number] Author: Yvrose St RPh Service: Pharmacy Author Type: Pharmacist Type: Plan of Care Filed: 01/19/2022 1:56 PM Note Text: PHARMACY MEDICATION REVIEW Patient Name: Sabina Espinoza : 1980 The following medications were updated within the FROG CATCHER medication list: Medications ADDED to FROG CATCHER medication list None Medications CHANGED on FROG CATCHER medication list None Medications REMOVED from FROG CATCHER medication list Calcium carbonate/ vitamin D3 Dicyclomine Enoxaparin Methocarbamol Tamsulosin Additional comments: N/A The below information represents the best possible medication history: Yes Medication history completed by: assistant dean of students: Teresita Wallis Source of history: Patient: Reliability of source: Appears reliable, clearly identified: Medication name, Medication dose, Medication route, and Medication frequency and Pharmacy records: Medication nonadherence identified: No barriers noted Reconciliation completed: Yes Completed by: Yvrose St RPh All FROG CATCHER medications addressed by LIP Patient interested in Bedside Delivery Services or using OP Pharmacy at discharge? Unable to assess Preferred outpatient pharmacy: [facility] [address] [place] [address] [phone] [facility] - [phone] Allergies: Prochlorperazine Mental Status Change Valsartan Intolerance Prior to Admission Medications Prescriptions Last Dose Informant Patient Reported? Taking? DULoxetine (CYMBALTA) 30 mg capsule Yes Yes Sig: Take 30 mg by mouth twice daily. pantoprazole DR (PROTONIX) 40 mg tablet Yes Yes Sig: Take 40 mg by mouth once daily. pregabalin (LYRICA) 150 mg capsule Yes Yes Sig: Take 150 mg by mouth three times daily. sucralfate (CARAFATE) 1 gram tablet No Yes Sig: Take 1 tablet by mouth four times daily. Please crush and mix with 10 ml of water to make slurry therapeutic multivitamin-minerals (THERA-M PLUS) 9 mg iron-400 mcg tablet Yes Yes Sig: Take 1 tablet by mouth every morning. zolpidem (AMBIEN) 10 mg Yes Yes Sig: Take 10 mg by mouth at bedtime as needed. Facility-Administered Medications: None Teresita Wallis 01/19/[address] [facility] 01/19/2022 [facility] 01-19-2022 Note HNO ID: [id number] Author: Kellie Pratt MD Service: General Surgery Author Type: Resident Type: Progress Notes Filed: 01/19/2022 10:58 AM Note Text: GENERAL SURGERY PROGRESS NOTE Service Date: January 19, 2022 HPI: 41 year old male with PMHx of RNYGB in 2009, c/b bleeding, and early takeback, SBO in 2019 S/P XL x2. 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 On 10/03/2021, he underwent XL, adhesiolysis, and open revision of GJ anastomosis with Dr Asencio. He now presents complaining of chronic abdominal pain, feeling food stuck and vomiting. Subjective: No acute events overnight Pain well-controlled, NPO overnight so no nausea or vomiting. Passing gas. Baseline constipation. Physical Exam: BP 103/76 Pulse 76 Temp (Src) 98.1 (Oral) Resp 17 Ht 5' 10 (1.78m) Wt 195 lb (88.5kg) SpO2 94% BMI 27.98 kg/(m2). O2 Therapy: Room Air GENERAL: awake; alert and oriented; no acute distress LUNGS: non-labored breathing on RA, no shortness of breath CARDIAC: warm and well perfused throughout ABDOMEN: soft, mildly tender, non- distended, midline incision healed well, intact, no discharge, small granuloma visible at the lower end 0.5 x 0.5 mm NEURO: no gross focal neurologic deficits EXT: no lower extremity edema Labs: Labs WNL CBC, BMP, MG, PHOS Recent Labs 01/19/22 0607 01/18/22 1132 10/24/21 0647 10/24/21 0406 10/23/21 0507 10/21/21 0418 10/20/21 0306 10/16/21 1023 10/16/21 0303 10/15/21 2239 10/15/21 1722 10/15/21 0850 10/15/21 0440 WBC 4.96 6.82 -- 7.31 6.11 < > -- < > 10.90 < > -- < > 11.59* HB 13.4 15.5 -- 11.0* 10.4* < > -- < > 8.4* < > -- < > 7.0* HCT 44.5 50.0 -- 35.9* 35.7* < > -- < > 26.9* < > -- < > 22.9* PLT 325 414* -- 485* 441* < > -- < > 233 < > -- < > 250 NA 138 138 136 -- -- -- 136 < > 140 -- -- -- 136 K 3.9 4.5 3.7 -- -- -- 3.5* < > 3.6* -- -- -- 4.0 CHLOR 104 103 98 -- -- -- 99 < > 106* -- -- -- 104 CO2 24 26 27 -- -- -- 26 < > 25 -- -- -- 23 BUN 10 11 4* -- -- -- 6* < > 6* -- -- -- 11 CREAT 0.56* 0.67* 0.51* -- -- -- 0.45* < > 0.56* -- -- -- 0.71* GLUC 82 95 83 -- -- -- 81 < > 89 -- -- -- 104* CA 8.8 9.5 9.1 -- -- -- 8.7 < > 8.4* -- -- -- 8.2* MG 2.4* 2.2 -- -- -- -- -- -- 2.1 -- -- -- 1.7 P 2.9 -- -- -- -- -- -- -- 1.6* -- 1.8* -- 1.6* < > = values in this interval not displayed. Liver Function, Amylase, AND Lipase Recent Labs 01/19/22 0607 01/18/22 1138 01/18/22 1132 10/17/21 0332 10/16/21 0303 10/15/21 0440 10/15/21 0138 10/15/21 0131 10/13/21 1140 10/13/21 0817 TPROT 6.3 -- 7.5 5.8* 5.4* < > -- < > -- -- ALB 3.7* -- 4.6 3.1* 3.1* < > -- < > -- -- ALT 15 -- 19 33 43 < > -- < > -- -- AST 17 -- 19 19 27 < > -- < > -- -- ALKPHOS 95 -- 108 91 72 < > -- < > -- -- TBILI 0.5 -- 0.4 0.6 0.8 < > -- < > -- -- LACT -- 1.1 -- -- -- -- 0.65 -- 1.5 1.1 < > = values in this interval not displayed. Coags Recent Labs 01/18/22113110/17/21 03310/16/21 0303 10/15/21 0440 APTT 29.6 31.8 33.5* 32.2 INR 1.0 1.0 1.1 1.1 Cardiac Enzymes Intake and Output: Date 01/18/22699 - 01/19/2265801/19/22699 - 01/20/22 0659 Shift 9259-7451 7749-7339 2887-5580 24 Hour Total 2941-1035 4843-4489 3667-9253 24 Hour Total INTAKE IV 1000 1000 1200 1200 OR Crystalloid intake (mL) 600 600 Volume (mL) (NaCl 0.9% 1,000 mL iv bolus) 1000 1000 Volume (mL) (NaCl 0.9% iv infusion) 600 600 Shift Total 1000 1000 1200 1200 OUTPUT Urine 0 0 Void (ml) 0 0 # of BMs Number of BMs 0 x 0 x Shift Total 0 0 Weight (kg) 88.5 88.5 88.5 88.5 88.5 88.5 88.5 88.5 Current Medications: Current Facility-Administered Medications Medication Dose Route Frequency NaCl 0.9% iv flush bag 20 mL INTRAVENOUS PRN pregabalin 150 mg cap(s) (LYRICA) 150 mg ORAL TID methocarbamol 500 mg tab(s) (ROBAXIN) 500 mg OR[address] TID pantop[address]ole [address] 40 mg tab(s) (PROTONIX) 40 mg ORAL BID AC (0600/1600) DULoxetine 20 mg cap(s) (CYMBALTA) 20 mg ORAL BID sodium chloride 0.9 % (flush) 3-5 mL (BD POSIFLUSH) 3-5 mL INTRAVENOUS q 12 H lactated ringers iv infusion 60 mL/hr INTRAVENOUS CONTINUOUS adult multivitamin 10 mL, folic acid 1 mg in NaCl 0.9% 1,000 mL INTRAVENOUS ONCE thiamine 100 mg tab(s) (VITAMIN B1) 100 mg ORAL/FEEDING TUBE TID acetaminophen 650 mg tab(s) (TYLENOL) 650 mg ORAL q 6 H PRN Or acetaminophen 650 mg CUP (TYLENOL) 650 mg ORAL q 6 H PRN oxyCODONE IR 5-10 mg tab(s) (ROXICODONE) 5-10 mg ORAL q 6 H PRN ondansetron (PF) 4 mg injection (ZOFRAN) 4 mg INTRAVENOUS q 6 H PRN metoclopramide HCl 5 mg injection (REGLAN) 5 mg INTRAVENOUS q 6 H PRN enoxaparin 40 mg injection (LOVENOX) 40 mg SUBCUTANEOUS q 24 HR zolpidem 10 mg tab(s) (AMBIEN) 10 mg ORAL AT BEDTIME PRN sucralfate 1 g tab(s) (CARAFATE) 1 g ORAL QID Assessment: 41 year old male with PMHx of RNYGB in 2009, c/b bleeding, and early takeback, SBO in 2019 S/P XL x2, GJ stricture, and p (more content not included)... [facility] 01-19-2022 Note Q3 Patient Name: Sabina Espinoza Procedure Date: 01/19/2022 8:38 AM Date of : 1980 Admit Type: Inpatient Age: 41 Gender: Male Note Status: Finalized Attending MD: Alysa Asencio MD Procedure: Upper GI endoscopy Indications: Dysphagia Providers: Alysa Asencio MD, Orlando Mccallum (Fellow) Patient Profile: This is a 41 year old male. Referring Physician: Sugey Fuentes (Referring MD) Medicines: Monitored Anesthesia Care Complications: No immediate complications. Requesting Provider: Procedure: Pre-Anesthesia Assessment: - Prior to the procedure, a History and Physical was performed, and patient medications and allergies were reviewed. The patient is competent. The risks and benefits of the procedure and the sedation options and risks were discussed with the patient. All questions were answered and informed consent was obtained. Patient identification and proposed procedure were verified by the physician in the pre-procedure area. Mental Status Examination: alert and oriented. Airway Examination: normal oropharyngeal airway and neck mobility. Respiratory Examination: clear to auscultation. CV Examination: normal. Prophylactic Antibiotics: The patient does not require prophylactic antibiotics. Prior Anticoagulants: The patient has taken no previous anticoagulant or antiplatelet agents. ASA Grade Assessment: II - A patient with mild systemic disease. After reviewing the risks and benefits, the patient was deemed in satisfactory condition to undergo the procedure. The anesthesia plan was to use moderate sedation / analgesia (conscious sedation). Immediately prior to administration of medications, the patient was re-assessed for adequacy to receive sedatives. The heart rate, respiratory rate, oxygen saturations, blood pressure, adequacy of pulmonary ventilation, and response to care were monitored throughout the procedure. The physical status of the patient was re-assessed after the procedure. After obtaining informed consent, the endoscope was passed under direct vision. Throughout the procedure, the patient's blood pressure, pulse, and oxygen saturations were monitored continuously. The Endoscope was introduced through the mouth, and advanced to the jejunum. The upper GI endoscopy was accomplished without difficulty. The patient tolerated the procedure well. Moderate Sedation: See the other procedure note for documentation of moderate sedation with intraservice time. See the other procedure note for documentation of moderate sedation with intraservice time. MAC anesthesia was administered by the anesthesia team. Findings: The examined esophagus was normal. Evidence of a Lauren-en-Y gastrojejunostomy was found. The gastrojejunal anastomosis was characterized by severe stenosis. This was traversed after dilation. The utedo-qr-gymkwir limb was characterized by healthy appearing mucosa. A TTS dilator was passed through the scope. Dilation with an 8-9-10 mm balloon dilator was performed to 10 mm. The dilation site was examined following endoscope reinsertion and showed mild improvement in luminal narrowing. A TTS dilator was passed through the scope. Dilation with a 10-11-12 mm balloon dilator was performed to 12 mm. The dilation site was examined following endoscope reinsertion and showed moderate improvement in luminal narrowing. The examined jejunum was normal. Suture at GJ cut, allowed for better opening of GJ Impression: - Normal esophagus. - Lauren-en-Y gastrojejunostomy with gastrojejunal anastomosis characterized by severe stenosis. Dilated. - Normal examined jejunum. - No specimens collected. Estimated Blood Loss: Estimated blood loss: none. Recommendation: - PPI, carafate, likley repeat EGD with dilation, based on symtpoms. - Patient has a contact number available for emergencies. The signs and symptoms of potential delayed complications were discussed with the patient. Return to normal activities tomorrow. Written discharge instructions were provided to the patient. Procedure Code(s): --- Professional --- 81507 Diagnosis Code(s): --- Professional --- Z98.0 R13.10 CPT copyright 2019 [employer]. All rights reserved. Attending Participation: I personally performed the entire procedure. Scope In: 8:50:20 AM Scope Out: 9:21:00 AM MD Alysa Tucker MD 01/19/2022 9:25:22 AM This report has been signed electronically by Alysa Asencio MD Number of Addenda: 0 Note Initiated On: 01/19/2022 8:38 AM [facility] 01-17-2022 Miscellaneous Notes I received a call from Chandu at [facility] stating Sabina was discharged from [facility] ER and is coming to the [facility] ER today at 9:00am to be admitted. Sabina is unable to keep from and liquid down and also has a hematoma in abdominal cavity. Chandu can be reached at [phone] documented in this encounter [facility] 01-11-2022 Miscellaneous Notes [facility] SPECIAL[facility] CARE COORDINATION TELEPHONE ENCOUNTER F/U after notified by team pt was admitted to local hospital. Tried to contact pt and spoke to customer contact specialist on file who confirmed pt was in hospital. Spoke to Charge nurse at [facility] in [place] pt c/o N/V Pt tolerated clears and adv to full liquid w/o vomiting No plans for d/c at this time. Waiting to be transferred to [facility].Pending bed transfer Fax given for Ct report and number for outside arrangement for electronic transfer of imaging given. Contact number given for updates documented in this encounter [facility] 01-03-2022 Miscellaneous Notes I contacted Chandu a call at [phone] regarding message that was left. She reports Sabina is unable to maintain hydration, nutrition intake due to dysphagia, vomiting. He requires 3 day notice for transport to come to [place]. I advised to have him go to local ED for evaluation, labs hydration and have him transferred to [facility] for on going evaluation, EGD. Carafate tablets called to pharmacy on file, advised to crush mix with 10 ml of water to make slurry. Advised for local hospital to call office to help arrange transport here to [facility]. I advised bed may be limited and may require wait. Sabina Bean PA-C documented in this encounter [facility] 01-02-2022 Miscellaneous Notes Chandu from [facility] called - she wanted me to send this message to you. Sabina is having issues w/ swallowing, he hasn't had an appointment since his surgery and need to get before late Jan/Feb. Can you please give Chandu a call at [phone] documented in this encounter [facility] 12-17-2021 Miscellaneous Notes Patient called requesting pain medication. His last surgery was diagnostic laparoscopy, conversion to laparotomy, extensive lysis of adhesions of greater than 2.5 hours, partial gastrectomy and enterectomy, revision gastrojejunostomy, upper endoscopy, excision of hyperplastic tissue of the abdominal wall with Dr. Asencio on 10/13. He was discharged with oxycodone 5-10mg Q4 PRN (70ml of 5mg/5ml solution). He has not been seen in clinic since, but has had multiple visits to [facility] ED for pain for which he has been given pain meds. Per the patient, he had an appointment in Dr. Asencio's clinic this week, but missed it because he was in COVID quarantine. He has been referred to pain management, but missed his initial appointment last week (also due to COVID quarantine). I discussed with the patient that as he is more than 2 months out from his surgery, he would need to be evaluated in clinic to determine his needed for additional opioid pain medications. I advised him to reschedule his missed appointment with pain management. Patient was angry and abruptly hung up the phone. documented in this encounter [facility] 12-16-2021 Miscellaneous Notes Sabina called regarding oxycodone prescription 5mg to be called into [facility] [phone]. Experiencing stomach pains Please give Sabina a call at [phone] documented in this encounter [facility] 11-29-2021 Miscellaneous Notes Scanned signed home care orders into [employer]. Located under scanned documents documented in this encounter [facility] 11-23-2021 Miscellaneous Notes I attempted to contact patient regarding pain management appointment Future AppointmentsDateTimeProviderDepa rtmentCenter12/02/2021 8:30 [id number] BEAN Bldg0:00 [id number] BECKMAN Bldg No answer unable to leave a message Sabina Bean PA-C documented in this encounter [facility] 11-23-2021 Miscellaneous Notes Contacted pain management, appointment scheduled for December 02 at 10 am Sabina Bean PA-C documented in this encounter [facility] 11-23-2021 Miscellaneous Notes I contacted patient regarding message. Patient reports drain remains in place and needs to be removed will be to removed offered an appointment for this Sunday. Will schedule December 02 for in person visit for drain removal. In addition will reach to pain management for out patient options. Sabina Bean PA-C documented in this encounter [facility] 11-20-2021 Miscellaneous Notes [facility] SPECIALTY CARE COORDINATION TELEPHONE ENCOUNTER Received message and tried to get in touch with Jade from [facility] in regards to drain removal. Patient had surgical procedure here at [facility] on 10/13. It was after hours and unable to leave message for Jade. Will try facility when they reopen tomorrow Attempted to call the pt but unable to leave VM Team aware Missed post op appt d/t connection issues sent message to scheduling for another appt mari Wyman documented in this encounter [facility] 11-16-2021 Miscellaneous Notes I received a call from Jade at [facility] regarding [place] and the remove a his drain. She wanted to know if someone can call her to discuss removal and the appropriate timing. [phone] documented in this encounter [facility] 11-14-2021 History of Presen t illness Narrative Patient was scheduled for a nutrition appointment today. The patient did not check into their scheduled appointment. I sent the patient a Danal [employer] message encouraging them to reschedule their appointment by calling [phone]. documented in this encounter [facility] 11-09-2021 Miscellaneous Notes I received a call from Sabina Espinoza regarding an appointment for a drain tube removal. Can you please give Mr. Espinoza a call at [phone] documented in this encounter [facility] 11-08-2021 Miscellaneous Notes [facility] SPECIALTY CARE COORDINATION TELEPHONE ENCOUNTER F/u spoke to [facility] nurse FREDDIE draining 10-15cc Mullin need to be removed order obtained OTP from [facility] nurse to remove No complaints from pt. schedule post op visit with team request sent to appt office documented in this encounter [facility] 10-18-2021 History of Past i llness Narrative Problem Noted Date Resolved Date Malnutrition of mild degree 10/18/2021 07/0 11/2021 Transaminitis 10/15/2021 10/21/2021 Last Assessment & Plan: Assessment: ALT and AST mild elevated to 86 and 78. Likely postsurgical in nature. Bili 0.4 and alk phos 77. PLAN: Trend lfts Respiratory insufficiency 10/15/20212021 Last Assessment & Plan: Assessment: patient stable on 2 L NC prior to episode of tachycardia. Increased to 5L NC to maintain sats above 92. On assessment, patient with sats of 96 on 5 L O2. 92% on 2L. No chest pain or pleuritic pain. Patient reports he was possibly diagnosed with JACQUELINE a few years ago and wore CPAP for a short amount of time. CT PE ordered by surgical team. PLAN: - Aggressive BPH - CT PE negative for PE - Supplemental O2 to maintain sats above 92, wean as able DVT (deep venous thrombosis) 10/15/202111/2021 Last Assessment & Plan: Assessment: 10/14 ultrasound with Focal, non-occlusive filling defect consistent with fibrin sheath versus thrombus is visualized in the internal jugular vein at proximal. Vasc med signed off. Per vasc med Continue holding therapeutic anticoagulation. Consider subcu heparin for now. Perform serial duplex venous ultrasound every 7 days to monitor for propagation of likely fibrin sheath associated with left IJ DVT. 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 Now with acute anemia to 7.4, tachycardia 130s, increasing FREDDIE output with concern for surgical site bleed. Transfused 1 unit(s) PRBC prior to transfer to SICU. PLAN: - General surgery primary - Continue PPI BID - Avoid nsaids - Holding AC - NPO except meds - CT abdomen concerning for possible anastomotic leak vs fluid collection/bleed - Start empiric zosyn for possible anastomotic leak - Pending surgical plan - Large bore IV access - Active T&S Postoperative anemia due to acute blood loss 10/21/2021 Last Assessment & Plan: Assessment: preop hgb 11+. Hgb 7.9 on 10/14, now 7.4. Concern for post op bleed. 1 unit(s) prbc ordered by surgical team on RNF. Tachycardic to the 130s. Normotensive. PLAN: - FREDDIE drain with dark output. Continue to monitor closely. - Trend CBC q6h - Transfuse as needed for symptomatic anemia, anemia less than 7, ongoing bleeding documented as of this encounter (statuses as of 10/21/2021) [facility] History of Past illness Narrative* Problem Noted Date Resolved Date Malnutrition of mild degree 10/18/2021 07/0 11/2021 Postoperative pain 10/15/2021 10/24/2021 Last Assessment & Plan: Assessment: s/p Open revision of gastrojejunal anastomosis on 10/13 PLAN: - 1 g tylenol q6h - morphine IV 2mg q2h PRN BTP (patient reported dilaudid was not lasting long enough for his pain control, switched to morphine) - Oxy 5-10 mg q4h PRN Transaminitis 10/15/2021 10/21/2021 Last Assessment & Plan: Assessment: ALT and AST mild elevated to 86 and 78. Likely postsurgical in nature. Bili 0.4 and alk phos 77. PLAN: Trend lfts Respiratory insufficiency 10/15/20212021 Last Assessment & Plan: Assessment: patient stable on 2 L NC prior to episode of tachycardia. Increased to 5L NC to maintain sats above 92. On assessment, patient with sats of 96 on 5 L O2. 92% on 2L. No chest pain or pleuritic pain. Patient reports he was possibly diagnosed with JACQUELINE a few years ago and wore CPAP for a short amount of time. CT PE ordered by surgical team. PLAN: - Aggressive BPH - CT PE negative for PE - Supplemental O2 to maintain sats above 92, wean as able DVT (deep venous thrombosis) 10/15/202111/2021 Last Assessment & Plan: Assessment: 10/14 ultrasound with Focal, non-occlusive filling defect consistent with fibrin sheath versus thrombus is visualized in the internal jugular vein at proximal. Vasc med signed off. Per vasc med Continue holding therapeutic anticoagulation. Consider subcu heparin for now. Perform serial duplex venous ultrasound every 7 days to monitor for propagation of likely fibrin sheath associated with left IJ DVT. 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 Now with acute anemia to 7.4, tachycardia 130s, increasing FREDDIE output with concern for surgical site bleed. Transfused 1 unit(s) PRBC prior to transfer to SICU. PLAN: - General surgery primary - Continue PPI BID - Avoid nsaids - Holding AC - NPO except meds - CT abdomen concerning for possible anastomotic leak vs fluid collection/bleed - Start empiric zosyn for possible anastomotic leak - Pending surgical plan - Large bore IV access - Active T&S Postoperative anemia due to acute blood loss 10/21/2021 Last Assessment & Plan: Assessment: preop hgb 11+. Hgb 7.9 on 10/14, now 7.4. Concern for post op bleed. 1 unit(s) prbc ordered by surgical team on RNF. Tachycardic to the 130s. Normotensive. PLAN: - FREDDIE drain with dark output. Continue to monitor closely. - Trend CBC q6h - Transfuse as needed for symptomatic anemia, anemia less than 7, ongoing bleeding documented as of this encounter (statuses as of 10/26/2021) [facility] History of Past illness Narrative* Problem Noted Date Resolved Date Malnutrition of mild degree 10/18/2021 07/0 11/2021 Postoperative pain 10/15/2021 10/24/2021 Last Assessment & Plan: Assessment: s/p Open revision of gastrojejunal anastomosis on 10/13 PLAN: - 1 g tylenol q6h - morphine IV 2mg q2h PRN BTP (patient reported dilaudid was not lasting long enough for his pain control, switched to morphine) - Oxy 5-10 mg q4h PRN Transaminitis 10/15/2021 10/21/2021 Last Assessment & Plan: Assessment: ALT and AST mild elevated to 86 and 78. Likely postsurgical in nature. Bili 0.4 and alk phos 77. PLAN: Trend lfts Respiratory insufficiency 10/15/20212021 Last Assessment & Plan: Assessment: patient stable on 2 L NC prior to episode of tachycardia. Increased to 5L NC to maintain sats above 92. On assessment, patient with sats of 96 on 5 L O2. 92% on 2L. No chest pain or pleuritic pain. Patient reports he was possibly diagnosed with JACQUELINE a few years ago and wore CPAP for a short amount of time. CT PE ordered by surgical team. PLAN: - Aggressive BPH - CT PE negative for PE - Supplemental O2 to maintain sats above 92, wean as able DVT (deep venous thrombosis) 10/15/202111/2021 Last Assessment & Plan: Assessment: 10/14 ultrasound with Focal, non-occlusive filling defect consistent with fibrin sheath versus thrombus is visualized in the internal jugular vein at proximal. Vasc med signed off. Per vasc med Continue holding therapeutic anticoagulation. Consider subcu heparin for now. Perform serial duplex venous ultrasound every 7 days to monitor for propagation of likely fibrin sheath associated with left IJ DVT. 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 Now with acute anemia to 7.4, tachycardia 130s, increasing FREDDIE output with concern for surgical site bleed. Transfused 1 unit(s) PRBC prior to transfer to SICU. PLAN: - General surgery primary - Continue PPI BID - Avoid nsaids - Holding AC - NPO except meds - CT abdomen concerning for possible anastomotic leak vs fluid collection/bleed - Start empiric zosyn for possible anastomotic leak - Pending surgical plan - Large bore IV access - Active T&S Postoperative anemia due to acute blood loss 10/21/2021 Last Assessment & Plan: Assessment: preop hgb 11+. Hgb 7.9 on 10/14, now 7.4. Concern for post op bleed. 1 unit(s) prbc ordered by surgical team on RNF. Tachycardic to the 130s. Normotensive. PLAN: - FREDDIE drain with dark output. Continue to monitor closely. - Trend CBC q6h - Transfuse as needed for symptomatic anemia, anemia less than 7, ongoing bleeding documented as of this encounter (statuses as of 10/31/2021) [facility] History of Past illness Narrative* Problem Noted Date Resolved Date Malnutrition of mild degree 10/18/2021 07/0 11/2021 Postoperative pain 10/15/2021 10/24/2021 Last Assessment & Plan: Assessment: s/p Open revision of gastrojejunal anastomosis on 10/13 PLAN: - 1 g tylenol q6h - morphine IV 2mg q2h PRN BTP (patient reported dilaudid was not lasting long enough for his pain control, switched to morphine) - Oxy 5-10 mg q4h PRN Transaminitis 10/15/2021 10/21/2021 Last Assessment & Plan: Assessment: ALT and AST mild elevated to 86 and 78. Likely postsurgical in nature. Bili 0.4 and alk phos 77. PLAN: Trend lfts Respiratory insufficiency 10/15/20212021 Last Assessment & Plan: Assessment: patient stable on 2 L NC prior to episode of tachycardia. Increased to 5L NC to maintain sats above 92. On assessment, patient with sats of 96 on 5 L O2. 92% on 2L. No chest pain or pleuritic pain. Patient reports he was possibly diagnosed with JACQUELINE a few years ago and wore CPAP for a short amount of time. CT PE ordered by surgical team. PLAN: - Aggressive BPH - CT PE negative for PE - Supplemental O2 to maintain sats above 92, wean as able DVT (deep venous thrombosis) 10/15/202111/2021 Last Assessment & Plan: Assessment: 10/14 ultrasound with Focal, non-occlusive filling defect consistent with fibrin sheath versus thrombus is visualized in the internal jugular vein at proximal. Vasc med signed off. Per vasc med Continue holding therapeutic anticoagulation. Consider subcu heparin for now. Perform serial duplex venous ultrasound every 7 days to monitor for propagation of likely fibrin sheath associated with left IJ DVT. 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 Now with acute anemia to 7.4, tachycardia 130s, increasing FREDDIE output with concern for surgical site bleed. Transfused 1 unit(s) PRBC prior to transfer to SICU. PLAN: - General surgery primary - Continue PPI BID - Avoid nsaids - Holding AC - NPO except meds - CT abdomen concerning for possible anastomotic leak vs fluid collection/bleed - Start empiric zosyn for possible anastomotic leak - Pending surgical plan - Large bore IV access - Active T&S Postoperative anemia due to acute blood loss 10/21/2021 Last Assessment & Plan: Assessment: preop hgb 11+. Hgb 7.9 on 10/14, now 7.4. Concern for post op bleed. 1 unit(s) prbc ordered by surgical team on RNF. Tachycardic to the 130s. Normotensive. PLAN: - FREDDIE drain with dark output. Continue to monitor closely. - Trend CBC q6h - Transfuse as needed for symptomatic anemia, anemia less than 7, ongoing bleeding documented as of this encounter (statuses as of 11/08/2021) [facility] History of Past illness Narrative* Problem Noted Date Resolved Date Malnutrition of mild degree 10/18/2021 07/0 11/2021 Postoperative pain 10/15/2021 10/24/2021 Last Assessment & Plan: Assessment: s/p Open revision of gastrojejunal anastomosis on 10/13 PLAN: - 1 g tylenol q6h - morphine IV 2mg q2h PRN BTP (patient reported dilaudid was not lasting long enough for his pain control, switched to morphine) - Oxy 5-10 mg q4h PRN Transaminitis 10/15/2021 10/21/2021 Last Assessment & Plan: Assessment: ALT and AST mild elevated to 86 and 78. Likely postsurgical in nature. Bili 0.4 and alk phos 77. PLAN: Trend lfts Respiratory insufficiency 10/15/20212021 Last Assessment & Plan: Assessment: patient stable on 2 L NC prior to episode of tachycardia. Increased to 5L NC to maintain sats above 92. On assessment, patient with sats of 96 on 5 L O2. 92% on 2L. No chest pain or pleuritic pain. Patient reports he was possibly diagnosed with JACQUELINE a few years ago and wore CPAP for a short amount of time. CT PE ordered by surgical team. PLAN: - Aggressive BPH - CT PE negative for PE - Supplemental O2 to maintain sats above 92, wean as able DVT (deep venous thrombosis) 10/15/202111/2021 Last Assessment & Plan: Assessment: 10/14 ultrasound with Focal, non-occlusive filling defect consistent with fibrin sheath versus thrombus is visualized in the internal jugular vein at proximal. Vasc med signed off. Per vasc med Continue holding therapeutic anticoagulation. Consider subcu heparin for now. Perform serial duplex venous ultrasound every 7 days to monitor for propagation of likely fibrin sheath associated with left IJ DVT. 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 Now with acute anemia to 7.4, tachycardia 130s, increasing FREDDIE output with concern for surgical site bleed. Transfused 1 unit(s) PRBC prior to transfer to SICU. PLAN: - General surgery primary - Continue PPI BID - Avoid nsaids - Holding AC - NPO except meds - CT abdomen concerning for possible anastomotic leak vs fluid collection/bleed - Start empiric zosyn for possible anastomotic leak - Pending surgical plan - Large bore IV access - Active T&S Postoperative anemia due to acute blood loss 10/21/2021 Last Assessment & Plan: Assessment: preop hgb 11+. Hgb 7.9 on 10/14, now 7.4. Concern for post op bleed. 1 unit(s) prbc ordered by surgical team on RNF. Tachycardic to the 130s. Normotensive. PLAN: - FREDDIE drain with dark output. Continue to monitor closely. - Trend CBC q6h - Transfuse as needed for symptomatic anemia, anemia less than 7, ongoing bleeding documented as of this encounter (statuses as of 11/09/2021) [facility] History of Past illness Narrative* Problem Noted Date Resolved Date Malnutrition of mild degree 10/18/202111/2021 Postoperative pain 10/15/2021 10/24/2021 Last Assessment & Plan: Assessment: s/p Open revision of gastrojejunal anastomosis on 10/13 PLAN: - 1 g tylenol q6h - morphine IV 2mg q2h PRN BTP (patient reported dilaudid was not lasting long enough for his pain control, switched to morphine) - Oxy 5-10 mg q4h PRN Transaminitis 10/15/2021 10/21/2021 Last Assessment & Plan: Assessment: ALT and AST mild elevated to 86 and 78. Likely postsurgical in nature. Bili 0.4 and alk phos 77. PLAN: Trend lfts Respiratory insufficiency 10/15/20212021 Last Assessment & Plan: Assessment: patient stable on 2 L NC prior to episode of tachycardia. Increased to 5L NC to maintain sats above 92. On assessment, patient with sats of 96 on 5 L O2. 92% on 2L. No chest pain or pleuritic pain. Patient reports he was possibly diagnosed with JACQUELINE a few years ago and wore CPAP for a short amount of time. CT PE ordered by surgical team. PLAN: - Aggressive BPH - CT PE negative for PE - Supplemental O2 to maintain sats above 92, wean as able DVT (deep venous thrombosis) 10/15/202111/2021 Last Assessment & Plan: Assessment: 10/14 ultrasound with Focal, non-occlusive filling defect consistent with fibrin sheath versus thrombus is visualized in the internal jugular vein at proximal. Vasc med signed off. Per vasc med Continue holding therapeutic anticoagulation. Consider subcu heparin for now. Perform serial duplex venous ultrasound every 7 days to monitor for propagation of likely fibrin sheath associated with left IJ DVT. 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 Now with acute anemia to 7.4, tachycardia 130s, increasing FREDDIE output with concern for surgical site bleed. Transfused 1 unit(s) PRBC prior to transfer to SICU. PLAN: - General surgery primary - Continue PPI BID - Avoid nsaids - Holding AC - NPO except meds - CT abdomen concerning for possible anastomotic leak vs fluid collection/bleed - Start empiric zosyn for possible anastomotic leak - Pending surgical plan - Large bore IV access - Active T&S Postoperative anemia due to acute blood loss 10/21/2021 Last Assessment & Plan: Assessment: preop hgb 11+. Hgb 7.9 on 10/14, now 7.4. Concern for post op bleed. 1 unit(s) prbc ordered by surgical team on RNF. Tachycardic to the 130s. Normotensive. PLAN: - FREDDIE drain with dark output. Continue to monitor closely. - Trend CBC q6h - Transfuse as needed for symptomatic anemia, anemia less than 7, ongoing bleeding documented as of this encounter (statuses as of 11/14/2021) [facility]07-05-2022 History of Past illness Narrative* Problem Noted Date Resolved Date Malnutrition of mild degree 10/18/2021 07/0 11/2021 Postoperative pain 10/15/2021 10/24/2021 Last Assessment & Plan: Assessment: s/p Open revision of gastrojejunal anastomosis on 10/13 PLAN: - 1 g tylenol q6h - morphine IV 2mg q2h PRN BTP (patient reported dilaudid was not lasting long enough for his pain control, switched to morphine) - Oxy 5-10 mg q4h PRN Transaminitis 10/15/2021 10/21/2021 Last Assessment & Plan: Assessment: ALT and AST mild elevated to 86 and 78. Likely postsurgical in nature. Bili 0.4 and alk phos 77. PLAN: Trend lfts Respiratory insufficiency 10/15/20212021 Last Assessment & Plan: Assessment: patient stable on 2 L NC prior to episode of tachycardia. Increased to 5L NC to maintain sats above 92. On assessment, patient with sats of 96 on 5 L O2. 92% on 2L. No chest pain or pleuritic pain. Patient reports he was possibly diagnosed with JACQUELINE a few years ago and wore CPAP for a short amount of time. CT PE ordered by surgical team. PLAN: - Aggressive BPH - CT PE negative for PE - Supplemental O2 to maintain sats above 92, wean as able DVT (deep venous thrombosis) 10/15/202111/2021 Last Assessment & Plan: Assessment: 10/14 ultrasound with Focal, non-occlusive filling defect consistent with fibrin sheath versus thrombus is visualized in the internal jugular vein at proximal. Vasc med signed off. Per vasc med Continue holding therapeutic anticoagulation. Consider subcu heparin for now. Perform serial duplex venous ultrasound every 7 days to monitor for propagation of likely fibrin sheath associated with left IJ DVT. 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 Now with acute anemia to 7.4, tachycardia 130s, increasing FREDDIE output with concern for surgical site bleed. Transfused 1 unit(s) PRBC prior to transfer to SICU. PLAN: - General surgery primary - Continue PPI BID - Avoid nsaids - Holding AC - NPO except meds - CT abdomen concerning for possible anastomotic leak vs fluid collection/bleed - Start empiric zosyn for possible anastomotic leak - Pending surgical plan - Large bore IV access - Active T&S Postoperative anemia due to acute blood loss 10/21/2021 Last Assessment & Plan: Assessment: preop hgb 11+. Hgb 7.9 on 10/14, now 7.4. Concern for post op bleed. 1 unit(s) prbc ordered by surgical team on RNF. Tachycardic to the 130s. Normotensive. PLAN: - FREDDIE drain with dark output. Continue to monitor closely. - Trend CBC q6h - Transfuse as needed for symptomatic anemia, anemia less than 7, ongoing bleeding documented as of this encounter (statuses as of 11/16/2021) [facility]07-05-2022 History of Past illness Narrative* Problem Noted Date Resolved Date Malnutrition of mild degree 10/18/2021 07/0 11/2021 Postoperative pain 10/15/2021 10/24/2021 Last Assessment & Plan: Assessment: s/p Open revision of gastrojejunal anastomosis on 10/13 PLAN: - 1 g tylenol q6h - morphine IV 2mg q2h PRN BTP (patient reported dilaudid was not lasting long enough for his pain control, switched to morphine) - Oxy 5-10 mg q4h PRN Transaminitis 10/15/2021 10/21/2021 Last Assessment & Plan: Assessment: ALT and AST mild elevated to 86 and 78. Likely postsurgical in nature. Bili 0.4 and alk phos 77. PLAN: Trend lfts Respiratory insufficiency 10/15/20212021 Last Assessment & Plan: Assessment: patient stable on 2 L NC prior to episode of tachycardia. Increased to 5L NC to maintain sats above 92. On assessment, patient with sats of 96 on 5 L O2. 92% on 2L. No chest pain or pleuritic pain. Patient reports he was possibly diagnosed with JACQUELINE a few years ago and wore CPAP for a short amount of time. CT PE ordered by surgical team. PLAN: - Aggressive BPH - CT PE negative for PE - Supplemental O2 to maintain sats above 92, wean as able DVT (deep venous thrombosis) 10/15/202111/2021 Last Assessment & Plan: Assessment: 10/14 ultrasound with Focal, non-occlusive filling defect consistent with fibrin sheath versus thrombus is visualized in the internal jugular vein at proximal. Vasc med signed off. Per vasc med Continue holding therapeutic anticoagulation. Consider subcu heparin for now. Perform serial duplex venous ultrasound every 7 days to monitor for propagation of likely fibrin sheath associated with left IJ DVT. 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 Now with acute anemia to 7.4, tachycardia 130s, increasing FREDDIE output with concern for surgical site bleed. Transfused 1 unit(s) PRBC prior to transfer to SICU. PLAN: - General surgery primary - Continue PPI BID - Avoid nsaids - Holding AC - NPO except meds - CT abdomen concerning for possible anastomotic leak vs fluid collection/bleed - Start empiric zosyn for possible anastomotic leak - Pending surgical plan - Large bore IV access - Active T&S Postoperative anemia due to acute blood loss 10/21/2021 Last Assessment & Plan: Assessment: preop hgb 11+. Hgb 7.9 on 10/14, now 7.4. Concern for post op bleed. 1 unit(s) prbc ordered by surgical team on RNF. Tachycardic to the 130s. Normotensive. PLAN: - FREDDIE drain with dark output. Continue to monitor closely. - Trend CBC q6h - Transfuse as needed for symptomatic anemia, anemia less than 7, ongoing bleeding documented as of this encounter (statuses as of 11/20/2021) [facility]07-05-2022 History of Past illness Narrative* Problem Noted Date Resolved Date Malnutrition of mild degree 10/18/2021 07/0 11/2021 Postoperative pain 10/15/2021 10/24/2021 Last Assessment & Plan: Assessment: s/p Open revision of gastrojejunal anastomosis on 10/13 PLAN: - 1 g tylenol q6h - morphine IV 2mg q2h PRN BTP (patient reported dilaudid was not lasting long enough for his pain control, switched to morphine) - Oxy 5-10 mg q4h PRN Transaminitis 10/15/2021 10/21/2021 Last Assessment & Plan: Assessment: ALT and AST mild elevated to 86 and 78. Likely postsurgical in nature. Bili 0.4 and alk phos 77. PLAN: Trend lfts Respiratory insufficiency 10/15/20212021 Last Assessment & Plan: Assessment: patient stable on 2 L NC prior to episode of tachycardia. Increased to 5L NC to maintain sats above 92. On assessment, patient with sats of 96 on 5 L O2. 92% on 2L. No chest pain or pleuritic pain. Patient reports he was possibly diagnosed with JACQUELINE a few years ago and wore CPAP for a short amount of time. CT PE ordered by surgical team. PLAN: - Aggressive BPH - CT PE negative for PE - Supplemental O2 to maintain sats above 92, wean as able DVT (deep venous thrombosis) 10/15/202111/2021 Last Assessment & Plan: Assessment: 10/14 ultrasound with Focal, non-occlusive filling defect consistent with fibrin sheath versus thrombus is visualized in the internal jugular vein at proximal. Vasc med signed off. Per vasc med Continue holding therapeutic anticoagulation. Consider subcu heparin for now. Perform serial duplex venous ultrasound every 7 days to monitor for propagation of likely fibrin sheath associated with left IJ DVT. 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 Now with acute anemia to 7.4, tachycardia 130s, increasing FREDDIE output with concern for surgical site bleed. Transfused 1 unit(s) PRBC prior to transfer to SICU. PLAN: - General surgery primary - Continue PPI BID - Avoid nsaids - Holding AC - NPO except meds - CT abdomen concerning for possible anastomotic leak vs fluid collection/bleed - Start empiric zosyn for possible anastomotic leak - Pending surgical plan - Large bore IV access - Active T&S Postoperative anemia due to acute blood loss 10/21/2021 Last Assessment & Plan: Assessment: preop hgb 11+. Hgb 7.9 on 10/14, now 7.4. Concern for post op bleed. 1 unit(s) prbc ordered by surgical team on RNF. Tachycardic to the 130s. Normotensive. PLAN: - FREDDIE drain with dark output. Continue to monitor closely. - Trend CBC q6h - Transfuse as needed for symptomatic anemia, anemia less than 7, ongoing bleeding documented as of this encounter (statuses as of 11/23/2021) [facility]07-05-2022 History of Past illness Narrative* Problem Noted Date Resolved Date Malnutrition of mild degree 10/18/2021 07/0 11/2021 Postoperative pain 10/15/2021 10/24/2021 Last Assessment & Plan: Assessment: s/p Open revision of gastrojejunal anastomosis on 10/13 PLAN: - 1 g tylenol q6h - morphine IV 2mg q2h PRN BTP (patient reported dilaudid was not lasting long enough for his pain control, switched to morphine) - Oxy 5-10 mg q4h PRN Transaminitis 10/15/2021 10/21/2021 Last Assessment & Plan: Assessment: ALT and AST mild elevated to 86 and 78. Likely postsurgical in nature. Bili 0.4 and alk phos 77. PLAN: Trend lfts Respiratory insufficiency 10/15/20212021 Last Assessment & Plan: Assessment: patient stable on 2 L NC prior to episode of tachycardia. Increased to 5L NC to maintain sats above 92. On assessment, patient with sats of 96 on 5 L O2. 92% on 2L. No chest pain or pleuritic pain. Patient reports he was possibly diagnosed with JACQUELINE a few years ago and wore CPAP for a short amount of time. CT PE ordered by surgical team. PLAN: - Aggressive BPH - CT PE negative for PE - Supplemental O2 to maintain sats above 92, wean as able DVT (deep venous thrombosis) 10/15/202111/2021 Last Assessment & Plan: Assessment: 10/14 ultrasound with Focal, non-occlusive filling defect consistent with fibrin sheath versus thrombus is visualized in the internal jugular vein at proximal. Vasc med signed off. Per vasc med Continue holding therapeutic anticoagulation. Consider subcu heparin for now. Perform serial duplex venous ultrasound every 7 days to monitor for propagation of likely fibrin sheath associated with left IJ DVT. 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 Now with acute anemia to 7.4, tachycardia 130s, increasing FREDDIE output with concern for surgical site bleed. Transfused 1 unit(s) PRBC prior to transfer to SICU. PLAN: - General surgery primary - Continue PPI BID - Avoid nsaids - Holding AC - NPO except meds - CT abdomen concerning for possible anastomotic leak vs fluid collection/bleed - Start empiric zosyn for possible anastomotic leak - Pending surgical plan - Large bore IV access - Active T&S Postoperative anemia due to acute blood loss 10/21/2021 Last Assessment & Plan: Assessment: preop hgb 11+. Hgb 7.9 on 10/14, now 7.4. Concern for post op bleed. 1 unit(s) prbc ordered by surgical team on RNF. Tachycardic to the 130s. Normotensive. PLAN: - FREDDIE drain with dark output. Continue to monitor closely. - Trend CBC q6h - Transfuse as needed for symptomatic anemia, anemia less than 7, ongoing bleeding documented as of this encounter (statuses as of 11/29/2021) [facility]07-05-2022 History of Past illness Narrative* Problem Noted Date Resolved Date Malnutrition of mild degree 10/18/2021 07/0 11/2021 Postoperative pain 10/15/2021 10/24/2021 Last Assessment & Plan: Assessment: s/p Open revision of gastrojejunal anastomosis on 10/13 PLAN: - 1 g tylenol q6h - morphine IV 2mg q2h PRN BTP (patient reported dilaudid was not lasting long enough for his pain control, switched to morphine) - Oxy 5-10 mg q4h PRN Transaminitis 10/15/2021 10/21/2021 Last Assessment & Plan: Assessment: ALT and AST mild elevated to 86 and 78. Likely postsurgical in nature. Bili 0.4 and alk phos 77. PLAN: Trend lfts Respiratory insufficiency 10/15/20212021 Last Assessment & Plan: Assessment: patient stable on 2 L NC prior to episode of tachycardia. Increased to 5L NC to maintain sats above 92. On assessment, patient with sats of 96 on 5 L O2. 92% on 2L. No chest pain or pleuritic pain. Patient reports he was possibly diagnosed with JACQUELINE a few years ago and wore CPAP for a short amount of time. CT PE ordered by surgical team. PLAN: - Aggressive BPH - CT PE negative for PE - Supplemental O2 to maintain sats above 92, wean as able DVT (deep venous thrombosis) 10/15/202111/2021 Last Assessment & Plan: Assessment: 10/14 ultrasound with Focal, non-occlusive filling defect consistent with fibrin sheath versus thrombus is visualized in the internal jugular vein at proximal. Vasc med signed off. Per vasc med Continue holding therapeutic anticoagulation. Consider subcu heparin for now. Perform serial duplex venous ultrasound every 7 days to monitor for propagation of likely fibrin sheath associated with left IJ DVT. 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 Now with acute anemia to 7.4, tachycardia 130s, increasing FREDDIE output with concern for surgical site bleed. Transfused 1 unit(s) PRBC prior to transfer to SICU. PLAN: - General surgery primary - Continue PPI BID - Avoid nsaids - Holding AC - NPO except meds - CT abdomen concerning for possible anastomotic leak vs fluid collection/bleed - Start empiric zosyn for possible anastomotic leak - Pending surgical plan - Large bore IV access - Active T&S Postoperative anemia due to acute blood loss 10/21/2021 Last Assessment & Plan: Assessment: preop hgb 11+. Hgb 7.9 on 10/14, now 7.4. Concern for post op bleed. 1 unit(s) prbc ordered by surgical team on RNF. Tachycardic to the 130s. Normotensive. PLAN: - FREDDIE drain with dark output. Continue to monitor closely. - Trend CBC q6h - Transfuse as needed for symptomatic anemia, anemia less than 7, ongoing bleeding documented as of this encounter (statuses as of 12/16/2021) [facility]07-[facility]-2022 History of Past illness Narrative* Problem Noted Date Resolved Date Malnutrition of mild degree 10/18/2021 07/0 11/2021 Postoperative pain 10/15/2021 10/24/2021 Last Assessment & Plan: Assessment: s/p Open revision of gastrojejunal anastomosis on 10/13 PLAN: - 1 g tylenol q6h - morphine IV 2mg q2h PRN BTP (patient reported dilaudid was not lasting long enough for his pain control, switched to morphine) - Oxy 5-10 mg q4h PRN Transaminitis 10/15/2021 10/21/2021 Last Assessment & Plan: Assessment: ALT and AST mild elevated to 86 and 78. Likely postsurgical in nature. Bili 0.4 and alk phos 77. PLAN: Trend lfts Respiratory insufficiency 10/15/20212021 Last Assessment & Plan: Assessment: patient stable on 2 L NC prior to episode of tachycardia. Increased to 5L NC to maintain sats above 92. On assessment, patient with sats of 96 on 5 L O2. 92% on 2L. No chest pain or pleuritic pain. Patient reports he was possibly diagnosed with JACQUELINE a few years ago and wore CPAP for a short amount of time. CT PE ordered by surgical team. PLAN: - Aggressive BPH - CT PE negative for PE - Supplemental O2 to maintain sats above 92, wean as able DVT (deep venous thrombosis) 10/15/202111/2021 Last Assessment & Plan: Assessment: 10/14 ultrasound with Focal, non-occlusive filling defect consistent with fibrin sheath versus thrombus is visualized in the internal jugular vein at proximal. Vasc med signed off. Per vasc med Continue holding therapeutic anticoagulation. Consider subcu heparin for now. Perform serial duplex venous ultrasound every 7 days to monitor for propagation of likely fibrin sheath associated with left IJ DVT. 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 Now with acute anemia to 7.4, tachycardia 130s, increasing FREDDIE output with concern for surgical site bleed. Transfused 1 unit(s) PRBC prior to transfer to SICU. PLAN: - General surgery primary - Continue PPI BID - Avoid nsaids - Holding AC - NPO except meds - CT abdomen concerning for possible anastomotic leak vs fluid collection/bleed - Start empiric zosyn for possible anastomotic leak - Pending surgical plan - Large bore IV access - Active T&S Postoperative anemia due to acute blood loss 10/21/2021 Last Assessment & Plan: Assessment: preop hgb 11+. Hgb 7.9 on 10/14, now 7.4. Concern for post op bleed. 1 unit(s) prbc ordered by surgical team on RNF. Tachycardic to the 130s. Normotensive. PLAN: - FREDDIE drain with dark output. Continue to monitor closely. - Trend CBC q6h - Transfuse as needed for symptomatic anemia, anemia less than 7, ongoing bleeding documented as of this encounter (statuses as of 12/18/2021) [facility]07-[facility]-2022 History of Past illness Narrative* Problem Noted Date Resolved Date Malnutrition of mild degree 10/18/2021 07/0 11/2021 Postoperative pain 10/15/2021 10/24/2021 Last Assessment & Plan: Assessment: s/p Open revision of gastrojejunal anastomosis on 10/13 PLAN: - 1 g tylenol q6h - morphine IV 2mg q2h PRN BTP (patient reported dilaudid was not lasting long enough for his pain control, switched to morphine) - Oxy 5-10 mg q4h PRN Transaminitis 10/15/2021 10/21/2021 Last Assessment & Plan: Assessment: ALT and AST mild elevated to 86 and 78. Likely postsurgical in nature. Bili 0.4 and alk phos 77. PLAN: Trend lfts Respiratory insufficiency 10/15/20212021 Last Assessment & Plan: Assessment: patient stable on 2 L NC prior to episode of tachycardia. Increased to 5L NC to maintain sats above 92. On assessment, patient with sats of 96 on 5 L O2. 92% on 2L. No chest pain or pleuritic pain. Patient reports he was possibly diagnosed with JACQUELINE a few years ago and wore CPAP for a short amount of time. CT PE ordered by surgical team. PLAN: - Aggressive BPH - CT PE negative for PE - Supplemental O2 to maintain sats above 92, wean as able DVT (deep venous thrombosis) 10/15/202111/2021 Last Assessment & Plan: Assessment: 10/14 ultrasound with Focal, non-occlusive filling defect consistent with fibrin sheath versus thrombus is visualized in the internal jugular vein at proximal. Vasc med signed off. Per vasc med Continue holding therapeutic anticoagulation. Consider subcu heparin for now. Perform serial duplex venous ultrasound every 7 days to monitor for propagation of likely fibrin sheath associated with left IJ DVT. 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 Now with acute anemia to 7.4, tachycardia 130s, increasing FREDDIE output with concern for surgical site bleed. Transfused 1 unit(s) PRBC prior to transfer to SICU. PLAN: - General surgery primary - Continue PPI BID - Avoid nsaids - Holding AC - NPO except meds - CT abdomen concerning for possible anastomotic leak vs fluid collection/bleed - Start empiric zosyn for possible anastomotic leak - Pending surgical plan - Large bore IV access - Active T&S Postoperative anemia due to acute blood loss 10/21/2021 Last Assessment & Plan: Assessment: preop hgb 11+. Hgb 7.9 on 10/14, now 7.4. Concern for post op bleed. 1 unit(s) prbc ordered by surgical team on RNF. Tachycardic to the 130s. Normotensive. PLAN: - FREDDIE drain with dark output. Continue to monitor closely. - Trend CBC q6h - Transfuse as needed for symptomatic anemia, anemia less than 7, ongoing bleeding documented as of this encounter (statuses as of 12/27/2021) [facility]07[facility]2022 History of Past illness Narrative* Problem Noted Date Resolved Date Malnutrition of mild degree 10/18/2021 07/11/2021 Postoperative pain 10/15/2021 10/24/2021 Last Assessment & Plan: Assessment: s/p Open revision of gastrojejunal anastomosis on 10/13 PLAN: - 1 g tylenol q6h - morphine IV 2mg q2h PRN BTP (patient reported dilaudid was not lasting long enough for his pain control, switched to morphine) - Oxy 5-10 mg q4h PRN Transaminitis 10/15/2021 10/21/2021 Last Assessment & Plan: Assessment: ALT and AST mild elevated to 86 and 78. Likely postsurgical in nature. Bili 0.4 and alk phos 77. PLAN: Trend lfts Respiratory insufficiency 10/15/20212021 Last Assessment & Plan: Assessment: patient stable on 2 L NC prior to episode of tachycardia. Increased to 5L NC to maintain sats above 92. On assessment, patient with sats of 96 on 5 L O2. 92% on 2L. No chest pain or pleuritic pain. Patient reports he was possibly diagnosed with JACQUELINE a few years ago and wore CPAP for a short amount of time. CT PE ordered by surgical team. PLAN: - Aggressive BPH - CT PE negative for PE - Supplemental O2 to maintain sats above 92, wean as able DVT (deep venous thrombosis) 10/15/202111/2021 Last Assessment & Plan: Assessment: 10/14 ultrasound with Focal, non-occlusive filling defect consistent with fibrin sheath versus thrombus is visualized in the internal jugular vein at proximal. Vasc med signed off. Per vasc med Continue holding therapeutic anticoagulation. Consider subcu heparin for now. Perform serial duplex venous ultrasound every 7 days to monitor for propagation of likely fibrin sheath associated with left IJ DVT. 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 Now with acute anemia to 7.4, tachycardia 130s, increasing FREDDIE output with concern for surgical site bleed. Transfused 1 unit(s) PRBC prior to transfer to SICU. PLAN: - General surgery primary - Continue PPI BID - Avoid nsaids - Holding AC - NPO except meds - CT abdomen concerning for possible anastomotic leak vs fluid collection/bleed - Start empiric zosyn for possible anastomotic leak - Pending surgical plan - Large bore IV access - Active T&S Postoperative anemia due to acute blood loss 10/21/2021 Last Assessment & Plan: Assessment: preop hgb 11+. Hgb 7.9 on 10/14, now 7.4. Concern for post op bleed. 1 unit(s) prbc ordered by surgical team on RNF. Tachycardic to the 130s. Normotensive. PLAN: - FREDDIE drain with dark output. Continue to monitor closely. - Trend CBC q6h - Transfuse as needed for symptomatic anemia, anemia less than 7, ongoing bleeding documented as of this encounter (statuses as of 01/02/2022) [facility]07-05-2022 History of Past illness Narrative* Problem Noted Date Resolved Date Malnutrition of mild degree 10/18/2021 07/0 11/2021 Postoperative pain 10/15/2021 10/24/2021 Last Assessment & Plan: Assessment: s/p Open revision of gastrojejunal anastomosis on 10/13 PLAN: - 1 g tylenol q6h - morphine IV 2mg q2h PRN BTP (patient reported dilaudid was not lasting long enough for his pain control, switched to morphine) - Oxy 5-10 mg q4h PRN Transaminitis 10/15/2021 10/21/2021 Last Assessment & Plan: Assessment: ALT and AST mild elevated to 86 and 78. Likely postsurgical in nature. Bili 0.4 and alk phos 77. PLAN: Trend lfts Respiratory insufficiency 10/15/20212021 Last Assessment & Plan: Assessment: patient stable on 2 L NC prior to episode of tachycardia. Increased to 5L NC to maintain sats above 92. On assessment, patient with sats of 96 on 5 L O2. 92% on 2L. No chest pain or pleuritic pain. Patient reports he was possibly diagnosed with JACQUELINE a few years ago and wore CPAP for a short amount of time. CT PE ordered by surgical team. PLAN: - Aggressive BPH - CT PE negative for PE - Supplemental O2 to maintain sats above 92, wean as able DVT (deep venous thrombosis) 10/15/202111/2021 Last Assessment & Plan: Assessment: 10/14 ultrasound with Focal, non-occlusive filling defect consistent with fibrin sheath versus thrombus is visualized in the internal jugular vein at proximal. Vasc med signed off. Per vasc med Continue holding therapeutic anticoagulation. Consider subcu heparin for now. Perform serial duplex venous ultrasound every 7 days to monitor for propagation of likely fibrin sheath associated with left IJ DVT. 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 Now with acute anemia to 7.4, tachycardia 130s, increasing FREDDIE output with concern for surgical site bleed. Transfused 1 unit(s) PRBC prior to transfer to SICU. PLAN: - General surgery primary - Continue PPI BID - Avoid nsaids - Holding AC - NPO except meds - CT abdomen concerning for possible anastomotic leak vs fluid collection/bleed - Start empiric zosyn for possible anastomotic leak - Pending surgical plan - Large bore IV access - Active T&S Postoperative anemia due to acute blood loss 10/21/2021 Last Assessment & Plan: Assessment: preop hgb 11+. Hgb 7.9 on 10/14, now 7.4. Concern for post op bleed. 1 unit(s) prbc ordered by surgical team on RNF. Tachycardic to the 130s. Normotensive. PLAN: - FREDDIE drain with dark output. Continue to monitor closely. - Trend CBC q6h - Transfuse as needed for symptomatic anemia, anemia less than 7, ongoing bleeding documented as of this encounter (statuses as of 01/03/2022) [facility]07-05-2022 History of Past illness Narrative* Problem Noted Date Resolved Date Malnutrition of mild degree 10/18/2021 07/0 11/2021 Postoperative pain 10/15/2021 10/24/2021 Last Assessment & Plan: Assessment: s/p Open revision of gastrojejunal anastomosis on 10/13 PLAN: - 1 g tylenol q6h - morphine IV 2mg q2h PRN BTP (patient reported dilaudid was not lasting long enough for his pain control, switched to morphine) - Oxy 5-10 mg q4h PRN Transaminitis 10/15/2021 10/21/2021 Last Assessment & Plan: Assessment: ALT and AST mild elevated to 86 and 78. Likely postsurgical in nature. Bili 0.4 and alk phos 77. PLAN: Trend lfts Respiratory insufficiency 10/15/20212021 Last Assessment & Plan: Assessment: patient stable on 2 L NC prior to episode of tachycardia. Increased to 5L NC to maintain sats above 92. On assessment, patient with sats of 96 on 5 L O2. 92% on 2L. No chest pain or pleuritic pain. Patient reports he was possibly diagnosed with JACQUELINE a few years ago and wore CPAP for a short amount of time. CT PE ordered by surgical team. PLAN: - Aggressive BPH - CT PE negative for PE - Supplemental O2 to maintain sats above 92, wean as able DVT (deep venous thrombosis) 10/15/202111/2021 Last Assessment & Plan: Assessment: 10/14 ultrasound with Focal, non-occlusive filling defect consistent with fibrin sheath versus thrombus is visualized in the internal jugular vein at proximal. Vasc med signed off. Per vasc med Continue holding therapeutic anticoagulation. Consider subcu heparin for now. Perform serial duplex venous ultrasound every 7 days to monitor for propagation of likely fibrin sheath associated with left IJ DVT. 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 Now with acute anemia to 7.4, tachycardia 130s, increasing FREDDIE output with concern for surgical site bleed. Transfused 1 unit(s) PRBC prior to transfer to SICU. PLAN: - General surgery primary - Continue PPI BID - Avoid nsaids - Holding AC - NPO except meds - CT abdomen concerning for possible anastomotic leak vs fluid collection/bleed - Start empiric zosyn for possible anastomotic leak - Pending surgical plan - Large bore IV access - Active T&S Postoperative anemia due to acute blood loss 10/21/2021 Last Assessment & Plan: Assessment: preop hgb 11+. Hgb 7.9 on 10/14, now 7.4. Concern for post op bleed. 1 unit(s) prbc ordered by surgical team on RNF. Tachycardic to the 130s. Normotensive. PLAN: - FREDDIE drain with dark output. Continue to monitor closely. - Trend CBC q6h - Transfuse as needed for symptomatic anemia, anemia less than 7, ongoing bleeding documented as of this encounter (statuses as of 01/11/2022) [facility]07-05-2022 History of Past illness Narrative* Problem Noted Date Resolved Date Malnutrition of mild degree 10/18/2021 07/0 11/2021 Postoperative pain 10/15/2021 10/24/2021 Last Assessment & Plan: Assessment: s/p Open revision of gastrojejunal anastomosis on 10/13 PLAN: - 1 g tylenol q6h - morphine IV 2mg q2h PRN BTP (patient reported dilaudid was not lasting long enough for his pain control, switched to morphine) - Oxy 5-10 mg q4h PRN Transaminitis 10/15/2021 10/21/2021 Last Assessment & Plan: Assessment: ALT and AST mild elevated to 86 and 78. Likely postsurgical in nature. Bili 0.4 and alk phos 77. PLAN: Trend lfts Respiratory insufficiency 10/15/20212021 Last Assessment & Plan: Assessment: patient stable on 2 L NC prior to episode of tachycardia. Increased to 5L NC to maintain sats above 92. On assessment, patient with sats of 96 on 5 L O2. 92% on 2L. No chest pain or pleuritic pain. Patient reports he was possibly diagnosed with JACQUELINE a few years ago and wore CPAP for a short amount of time. CT PE ordered by surgical team. PLAN: - Aggressive BPH - CT PE negative for PE - Supplemental O2 to maintain sats above 92, wean as able DVT (deep venous thrombosis) 10/15/202111/2021 Last Assessment & Plan: Assessment: 10/14 ultrasound with Focal, non-occlusive filling defect consistent with fibrin sheath versus thrombus is visualized in the internal jugular vein at proximal. Vasc med signed off. Per vasc med Continue holding therapeutic anticoagulation. Consider subcu heparin for now. Perform serial duplex venous ultrasound every 7 days to monitor for propagation of likely fibrin sheath associated with left IJ DVT. 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 Now with acute anemia to 7.4, tachycardia 130s, increasing FREDDIE output with concern for surgical site bleed. Transfused 1 unit(s) PRBC prior to transfer to SICU. PLAN: - General surgery primary - Continue PPI BID - Avoid nsaids - Holding AC - NPO except meds - CT abdomen concerning for possible anastomotic leak vs fluid collection/bleed - Start empiric zosyn for possible anastomotic leak - Pending surgical plan - Large bore IV access - Active T&S Postoperative anemia due to acute blood loss 10/21/2021 Last Assessment & Plan: Assessment: preop hgb 11+. Hgb 7.9 on 10/14, now 7.4. Concern for post op bleed. 1 unit(s) prbc ordered by surgical team on RNF. Tachycardic to the 130s. Normotensive. PLAN: - FREDDIE drain with dark output. Continue to monitor closely. - Trend CBC q6h - Transfuse as needed for symptomatic anemia, anemia less than 7, ongoing bleeding documented as of this encounter (statuses as of 01/17/2022) [facility]07-02-2022 History of Past illness Narrative* Problem Noted Date Resolved Date Postoperative pain 10/15/2021 10/24/2021 Last Assessment & Plan: Assessment: s/p Open revision of gastrojejunal anastomosis on 10/13 PLAN: - 1 g tylenol q6h - morphine IV 2mg q2h PRN BTP (patient reported dilaudid was not lasting long enough for his pain control, switched to morphine) - Oxy 5-10 mg q4h PRN Transaminitis 10/15/2021 10/21/2021 Last Assessment & Plan: Assessment: ALT and AST mild elevated to 86 and 78. Likely postsurgical in nature. Bili 0.4 and alk phos 77. PLAN: Trend lfts Respiratory insufficiency 10/15/20212021 Last Assessment & Plan: Assessment: patient stable on 2 L NC prior to episode of tachycardia. Increased to 5L NC to maintain sats above 92. On assessment, patient with sats of 96 on 5 L O2. 92% on 2L. No chest pain or pleuritic pain. Patient reports he was possibly diagnosed with JACQUELINE a few years ago and wore CPAP for a short amount of time. CT PE ordered by surgical team. PLAN: - Aggressive BPH - CT PE negative for PE - Supplemental O2 to maintain sats above 92, wean as able DVT (deep venous thrombosis) 10/15/202111/2021 Last Assessment & Plan: Assessment: 10/14 ultrasound with Focal, non-occlusive filling defect consistent with fibrin sheath versus thrombus is visualized in the internal jugular vein at proximal. Vasc med signed off. Per vasc med Continue holding therapeutic anticoagulation. Consider subcu heparin for now. Perform serial duplex venous ultrasound every 7 days to monitor for propagation of likely fibrin sheath associated with left IJ DVT. 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 Now with acute anemia to 7.4, tachycardia 130s, increasing FREDDIE output with concern for surgical site bleed. Transfused 1 unit(s) PRBC prior to transfer to SICU. PLAN: - General surgery primary - Continue PPI BID - Avoid nsaids - Holding AC - NPO except meds - CT abdomen concerning for possible anastomotic leak vs fluid collection/bleed - Start empiric zosyn for possible anastomotic leak - Pending surgical plan - Large bore IV access - Active T&S Postoperative anemia due to acute blood loss 10/21/2021 Last Assessment & Plan: Assessment: preop hgb 11+. Hgb 7.9 on 10/14, now 7.4. Concern for post op bleed. 1 unit(s) prbc ordered by surgical team on RNF. Tachycardic to the 130s. Normotensive. PLAN: - FREDDIE drain with dark output. Continue to monitor closely. - Trend CBC q6h - Transfuse as needed for symptomatic anemia, anemia less than 7, ongoing bleeding documented as of this encounter (statuses as of 01/21/2022) [facility]07-02-2022 History of Past illness Narrative* Problem Noted Date Resolved Date Postoperative pain 10/15/2021 10/24/2021 Last Assessment & Plan: Assessment: s/p Open revision of gastrojejunal anastomosis on 10/13 PLAN: - 1 g tylenol q6h - morphine IV 2mg q2h PRN BTP (patient reported dilaudid was not lasting long enough for his pain control, switched to morphine) - Oxy 5-10 mg q4h PRN Transaminitis 10/15/2021 10/21/2021 Last Assessment & Plan: Assessment: ALT and AST mild elevated to 86 and 78. Likely postsurgical in nature. Bili 0.4 and alk phos 77. PLAN: Trend lfts Respiratory insufficiency 10/15/20212021 Last Assessment & Plan: Assessment: patient stable on 2 L NC prior to episode of tachycardia. Increased to 5L NC to maintain sats above 92. On assessment, patient with sats of 96 on 5 L O2. 92% on 2L. No chest pain or pleuritic pain. Patient reports he was possibly diagnosed with JACQUELINE a few years ago and wore CPAP for a short amount of time. CT PE ordered by surgical team. PLAN: - Aggressive BPH - CT PE negative for PE - Supplemental O2 to maintain sats above 92, wean as able DVT (deep venous thrombosis) 10/15/202111/2021 Last Assessment & Plan: Assessment: 10/14 ultrasound with Focal, non-occlusive filling defect consistent with fibrin sheath versus thrombus is visualized in the internal jugular vein at proximal. Vasc med signed off. Per vasc med Continue holding therapeutic anticoagulation. Consider subcu heparin for now. Perform serial duplex venous ultrasound every 7 days to monitor for propagation of likely fibrin sheath associated with left IJ DVT. 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 Now with acute anemia to 7.4, tachycardia 130s, increasing FREDDIE output with concern for surgical site bleed. Transfused 1 unit(s) PRBC prior to transfer to SICU. PLAN: - General surgery primary - Continue PPI BID - Avoid nsaids - Holding AC - NPO except meds - CT abdomen concerning for possible anastomotic leak vs fluid collection/bleed - Start empiric zosyn for possible anastomotic leak - Pending surgical plan - Large bore IV access - Active T&S Postoperative anemia due to acute blood loss 10/21/2021 Last Assessment & Plan: Assessment: preop hgb 11+. Hgb 7.9 on 10/14, now 7.4. Concern for post op bleed. 1 unit(s) prbc ordered by surgical team on RNF. Tachycardic to the 130s. Normotensive. PLAN: - FREDDIE drain with dark output. Continue to monitor closely. - Trend CBC q6h - Transfuse as needed for symptomatic anemia, anemia less than 7, ongoing bleeding documented as of this encounter (statuses as of 10/13/2022) [facility]07-02-2022 History of Past illness Narrative* Problem Noted Date Resolved Date Postoperative pain 10/15/2021 10/24/2021 Last Assessment & Plan: Assessment: s/p Open revision of gastrojejunal anastomosis on 10/13 PLAN: - 1 g tylenol q6h - morphine IV 2mg q2h PRN BTP (patient reported dilaudid was not lasting long enough for his pain control, switched to morphine) - Oxy 5-10 mg q4h PRN Transaminitis 10/15/2021 10/21/2021 Last Assessment & Plan: Assessment: ALT and AST mild elevated to 86 and 78. Likely postsurgical in nature. Bili 0.4 and alk phos 77. PLAN: Trend lfts Respiratory insufficiency 10/15/20212021 Last Assessment & Plan: Assessment: patient stable on 2 L NC prior to episode of tachycardia. Increased to 5L NC to maintain sats above 92. On assessment, patient with sats of 96 on 5 L O2. 92% on 2L. No chest pain or pleuritic pain. Patient reports he was possibly diagnosed with JACQUELINE a few years ago and wore CPAP for a short amount of time. CT PE ordered by surgical team. PLAN: - Aggressive BPH - CT PE negative for PE - Supplemental O2 to maintain sats above 92, wean as able DVT (deep venous thrombosis) 10/15/202111/2021 Last Assessment & Plan: Assessment: 10/14 ultrasound with Focal, non-occlusive filling defect consistent with fibrin sheath versus thrombus is visualized in the internal jugular vein at proximal. Vasc med signed off. Per vasc med Continue holding therapeutic anticoagulation. Consider subcu heparin for now. Perform serial duplex venous ultrasound every 7 days to monitor for propagation of likely fibrin sheath associated with left IJ DVT. 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 Now with acute anemia to 7.4, tachycardia 130s, increasing FREDDIE output with concern for surgical site bleed. Transfused 1 unit(s) PRBC prior to transfer to SICU. PLAN: - General surgery primary - Continue PPI BID - Avoid nsaids - Holding AC - NPO except meds - CT abdomen concerning for possible anastomotic leak vs fluid collection/bleed - Start empiric zosyn for possible anastomotic leak - Pending surgical plan - Large bore IV access - Active T&S Postoperative anemia due to acute blood loss 10/21/2021 Last Assessment & Plan: Assessment: preop hgb 11+. Hgb 7.9 on 10/14, now 7.4. Concern for post op bleed. 1 unit(s) prbc ordered by surgical team on RNF. Tachycardic to the 130s. Normotensive. PLAN: - FREDDIE drain with dark output. Continue to monitor closely. - Trend CBC q6h - Transfuse as needed for symptomatic anemia, anemia less than 7, ongoing bleeding documented as of this encounter (statuses as of 10/13/2022) [facility]07-02-2022 History of Past illness Narrative* Problem Noted Date Diagnosed Date Resolved Date Postoperative pain 10/15/2021 Last Assessment & Plan: Assessment: s/p Open revision of gastrojejunal anastomosis on 10/13 PLAN: - 1 g tylenol q6h - morphine IV 2mg q2h PRN BTP (patient reported dilaudid was not lasting long enough for his pain control, switched to morphine) - Oxy 5-10 mg q4h PRN Transaminitis 10/15/2021 10/21/2021 Last Assessment & Plan: Assessment: ALT and AST mild elevated to 86 and 78. Likely postsurgical in nature. Bili 0.4 and alk phos 77. PLAN: Trend lfts Respiratory insufficiency 10/15/2021 Last Assessment & Plan: Assessment: patient stable on 2 L NC prior to episode of tachycardia. Increased to 5L NC to maintain sats above 92. On assessment, patient with sats of 96 on 5 L O2. 92% on 2L. No chest pain or pleuritic pain. Patient reports he was possibly diagnosed with JACQUELINE a few years ago and wore CPAP for a short amount of time. CT PE ordered by surgical team. PLAN: - Aggressive BPH - CT PE negative for PE - Supplemental O2 to maintain sats above 92, wean as able DVT (deep venous thrombosis) 10/15/2021 10/21/2021 Last Assessment & Plan: Assessment: 10/14 ultrasound with Focal, non-occlusive filling defect consistent with fibrin sheath versus thrombus is visualized in the internal jugular vein at proximal. Vasc med signed off. Per vasc med Continue holding therapeutic anticoagulation. Consider subcu heparin for now. Perform serial duplex venous ultrasound every 7 days to monitor for propagation of likely fibrin sheath associated with left IJ DVT. 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 Now with acute anemia to 7.4, tachycardia 130s, increasing FREDDIE output with concern for surgical site bleed. Transfused 1 unit(s) PRBC prior to transfer to SICU. PLAN: - General surgery primary - Continue PPI BID - Avoid nsaids - Holding AC - NPO except meds - CT abdomen concerning for possible anastomotic leak vs fluid collection/bleed - Start empiric zosyn for possible anastomotic leak - Pending surgical plan - Large bore IV access - Active T&S Postoperative anemia due to acute blood loss 2 10/21/2021 Last Assessment & Plan: Assessment: preop hgb 11+. Hgb 7.9 on 10/14, now 7.4. Concern for post op bleed. 1 unit(s) prbc ordered by surgical team on RNF. Tachycardic to the 130s. Normotensive. PLAN: - FREDDIE drain with dark output. Continue to monitor closely. - Trend CBC q6h - Transfuse as needed for symptomatic anemia, anemia less than 7, ongoing bleeding documented as of this encounter (statuses as of 10/26/2022) [facility]07-02-2022 History of Past illness Narrative* Problem Noted Date Diagnosed Date Resolved Date Postoperative pain 10/15/2021 Last Assessment & Plan: Assessment: s/p Open revision of gastrojejunal anastomosis on 10/13 PLAN: - 1 g tylenol q6h - morphine IV 2mg q2h PRN BTP (patient reported dilaudid was not lasting long enough for his pain control, switched to morphine) - Oxy 5-10 mg q4h PRN Transaminitis 10/15/2021 10/21/2021 Last Assessment & Plan: Assessment: ALT and AST mild elevated to 86 and 78. Likely postsurgical in nature. Bili 0.4 and alk phos 77. PLAN: Trend lfts Respiratory insufficiency 10/15/2021 Last Assessment & Plan: Assessment: patient stable on 2 L NC prior to episode of tachycardia. Increased to 5L NC to maintain sats above 92. On assessment, patient with sats of 96 on 5 L O2. 92% on 2L. No chest pain or pleuritic pain. Patient reports he was possibly diagnosed with JACQUELINE a few years ago and wore CPAP for a short amount of time. CT PE ordered by surgical team. PLAN: - Aggressive BPH - CT PE negative for PE - Supplemental O2 to maintain sats above 92, wean as able DVT (deep venous thrombosis) 10/15/2021 10/21/2021 Last Assessment & Plan: Assessment: 10/14 ultrasound with Focal, non-occlusive filling defect consistent with fibrin sheath versus thrombus is visualized in the internal jugular vein at proximal. Vasc med signed off. Per vasc med Continue holding therapeutic anticoagulation. Consider subcu heparin for now. Perform serial duplex venous ultrasound every 7 days to monitor for propagation of likely fibrin sheath associated with left IJ DVT. 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 Now with acute anemia to 7.4, tachycardia 130s, increasing FREDDIE output with concern for surgical site bleed. Transfused 1 unit(s) PRBC prior to transfer to SICU. PLAN: - General surgery primary - Continue PPI BID - Avoid nsaids - Holding AC - NPO except meds - CT abdomen concerning for possible anastomotic leak vs fluid collection/bleed - Start empiric zosyn for possible anastomotic leak - Pending surgical plan - Large bore IV access - Active T&S Postoperative anemia due to acute blood loss 2 10/21/2021 Last Assessment & Plan: Assessment: preop hgb 11+. Hgb 7.9 on 10/14, now 7.4. Concern for post op bleed. 1 unit(s) prbc ordered by surgical team on RNF. Tachycardic to the 130s. Normotensive. PLAN: - FREDDIE drain with dark output. Continue to monitor closely. - Trend CBC q6h - Transfuse as needed for symptomatic anemia, anemia less than 7, ongoing bleeding documented as of this encounter (statuses as of 11/29/2022) [facility]07-02-2022 History of Past illness Narrative* Problem Noted Date Diagnosed Date Resolved Date Postoperative pain 10/15/2021 Last Assessment & Plan: Assessment: s/p Open revision of gastrojejunal anastomosis on 10/13 PLAN: - 1 g tylenol q6h - morphine IV 2mg q2h PRN BTP (patient reported dilaudid was not lasting long enough for his pain control, switched to morphine) - Oxy 5-10 mg q4h PRN Transaminitis 10/15/2021 10/21/2021 Last Assessment & Plan: Assessment: ALT and AST mild elevated to 86 and 78. Likely postsurgical in nature. Bili 0.4 and alk phos 77. PLAN: Trend lfts Respiratory insufficiency 10/15/2021 Last Assessment & Plan: Assessment: patient stable on 2 L NC prior to episode of tachycardia. Increased to 5L NC to maintain sats above 92. On assessment, patient with sats of 96 on 5 L O2. 92% on 2L. No chest pain or pleuritic pain. Patient reports he was possibly diagnosed with JACQUELINE a few years ago and wore CPAP for a short amount of time. CT PE ordered by surgical team. PLAN: - Aggressive BPH - CT PE negative for PE - Supplemental O2 to maintain sats above 92, wean as able DVT (deep venous thrombosis) 10/15/2021 10/21/2021 Last Assessment & Plan: Assessment: 10/14 ultrasound with Focal, non-occlusive filling defect consistent with fibrin sheath versus thrombus is visualized in the internal jugular vein at proximal. Vasc med signed off. Per vasc med Continue holding therapeutic anticoagulation. Consider subcu heparin for now. Perform serial duplex venous ultrasound every 7 days to monitor for propagation of likely fibrin sheath associated with left IJ DVT. 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 Now with acute anemia to 7.4, tachycardia 130s, increasing FREDDIE output with concern for surgical site bleed. Transfused 1 unit(s) PRBC prior to transfer to SICU. PLAN: - General surgery primary - Continue PPI BID - Avoid nsaids - Holding AC - NPO except meds - CT abdomen concerning for possible anastomotic leak vs fluid collection/bleed - Start empiric zosyn for possible anastomotic leak - Pending surgical plan - Large bore IV access - Active T&S Postoperative anemia due to acute blood loss 2 10/21/2021 Last Assessment & Plan: Assessment: preop hgb 11+. Hgb 7.9 on 10/14, now 7.4. Concern for post op bleed. 1 unit(s) prbc ordered by surgical team on RNF. Tachycardic to the 130s. Normotensive. PLAN: - FREDDIE drain with dark output. Continue to monitor closely. - Trend CBC q6h - Transfuse as needed for symptomatic anemia, anemia less than 7, ongoing bleeding documented as of this encounter (statuses as of 11/30/2022) [facility]07-02-2022 History of Past illness Narrative* Problem Noted Date Diagnosed Date Resolved Date Postoperative pain 10/15/2021 Last Assessment & Plan: Assessment: s/p Open revision of gastrojejunal anastomosis on 10/13 PLAN: - 1 g tylenol q6h - morphine IV 2mg q2h PRN BTP (patient reported dilaudid was not lasting long enough for his pain control, switched to morphine) - Oxy 5-10 mg q4h PRN Transaminitis 10/15/2021 10/21/2021 Last Assessment & Plan: Assessment: ALT and AST mild elevated to 86 and 78. Likely postsurgical in nature. Bili 0.4 and alk phos 77. PLAN: Trend lfts Respiratory insufficiency 10/15/2021 Last Assessment & Plan: Assessment: patient stable on 2 L NC prior to episode of tachycardia. Increased to 5L NC to maintain sats above 92. On assessment, patient with sats of 96 on 5 L O2. 92% on 2L. No chest pain or pleuritic pain. Patient reports he was possibly diagnosed with JACQUELINE a few years ago and wore CPAP for a short amount of time. CT PE ordered by surgical team. PLAN: - Aggressive BPH - CT PE negative for PE - Supplemental O2 to maintain sats above 92, wean as able DVT (deep venous thrombosis) 10/15/2021 10/21/2021 Last Assessment & Plan: Assessment: 10/14 ultrasound with Focal, non-occlusive filling defect consistent with fibrin sheath versus thrombus is visualized in the internal jugular vein at proximal. Vasc med signed off. Per vasc med Continue holding therapeutic anticoagulation. Consider subcu heparin for now. Perform serial duplex venous ultrasound every 7 days to monitor for propagation of likely fibrin sheath associated with left IJ DVT. 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 Now with acute anemia to 7.4, tachycardia 130s, increasing FREDDIE output with concern for surgical site bleed. Transfused 1 unit(s) PRBC prior to transfer to SICU. PLAN: - General surgery primary - Continue PPI BID - Avoid nsaids - Holding AC - NPO except meds - CT abdomen concerning for possible anastomotic leak vs fluid collection/bleed - Start empiric zosyn for possible anastomotic leak - Pending surgical plan - Large bore IV access - Active T&S Postoperative anemia due to acute blood loss 10/21/2021 Last Assessment & Plan: Assessment: preop hgb 11+. Hgb 7.9 on 10/14, now 7.4. Concern for post op bleed. 1 unit(s) prbc ordered by surgical team on RNF. Tachycardic to the 130s. Normotensive. PLAN: - FREDDIE drain with dark output. Continue to monitor closely. - Trend CBC q6h - Transfuse as needed for symptomatic anemia, anemia less than 7, ongoing bleeding documented as of this encounter (statuses as of 12/01/2022) [facility]07-02-2022 History of Past illness Narrative* Problem Noted Date Diagnosed Date Resolved Date Postoperative pain 10/15/2021 Last Assessment & Plan: Assessment: s/p Open revision of gastrojejunal anastomosis on 10/13 PLAN: - 1 g tylenol q6h - morphine IV 2mg q2h PRN BTP (patient reported dilaudid was not lasting long enough for his pain control, switched to morphine) - Oxy 5-10 mg q4h PRN Transaminitis 10/15/2021 10/21/2021 Last Assessment & Plan: Assessment: ALT and AST mild elevated to 86 and 78. Likely postsurgical in nature. Bili 0.4 and alk phos 77. PLAN: Trend lfts Respiratory insufficiency 10/15/2021 Last Assessment & Plan: Assessment: patient stable on 2 L NC prior to episode of tachycardia. Increased to 5L NC to maintain sats above 92. On assessment, patient with sats of 96 on 5 L O2. 92% on 2L. No chest pain or pleuritic pain. Patient reports he was possibly diagnosed with JACQUELINE a few years ago and wore CPAP for a short amount of time. CT PE ordered by surgical team. PLAN: - Aggressive BPH - CT PE negative for PE - Supplemental O2 to maintain sats above 92, wean as able DVT (deep venous thrombosis) 10/15/2021 10/21/2021 Last Assessment & Plan: Assessment: 10/14 ultrasound with Focal, non-occlusive filling defect consistent with fibrin sheath versus thrombus is visualized in the internal jugular vein at proximal. Vasc med signed off. Per vasc med Continue holding therapeutic anticoagulation. Consider subcu heparin for now. Perform serial duplex venous ultrasound every 7 days to monitor for propagation of likely fibrin sheath associated with left IJ DVT. 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 Now with acute anemia to 7.4, tachycardia 130s, increasing FREDDIE output with concern for surgical site bleed. Transfused 1 unit(s) PRBC prior to transfer to SICU. PLAN: - General surgery primary - Continue PPI BID - Avoid nsaids - Holding AC - NPO except meds - CT abdomen concerning for possible anastomotic leak vs fluid collection/bleed - Start empiric zosyn for possible anastomotic leak - Pending surgical plan - Large bore IV access - Active T&S Postoperative anemia due to acute blood loss 2 10/21/2021 Last Assessment & Plan: Assessment: preop hgb 11+. Hgb 7.9 on 10/14, now 7.4. Concern for post op bleed. 1 unit(s) prbc ordered by surgical team on RNF. Tachycardic to the 130s. Normotensive. PLAN: - FREDDIE drain with dark output. Continue to monitor closely. - Trend CBC q6h - Transfuse as needed for symptomatic anemia, anemia less than 7, ongoing bleeding documented as of this encounter (statuses as of 12/06/2022) [facility]06-24-2022 History of Present illness Narrative* Alondra Harper, RT(R) - 10/07/2021 1:08 PM EDT Radiology Service Progress Note PATIENT NAME: Sabina Espinoza DATE OF SERVICE: October 07, 2021 TIME: 1:08 PM PATIENT IDENTITY VERIFICATION COMPLETED USING TWO (2) IDENTIFIERS: Name and Date of confirmedby patient verbally. FALL SCREENING: Has the patient had 2 falls in the last year or 1 fall with injury or currently using an Ambulatory Assistive Device (Walker, Cane, Wheelchair, Crutches, etc.)? No PATIENT GENDER DATA: Male PATIENT RELEVANT IMPLANT DATA REVIEWED: Not Applicable RADIOLOGY DEPARTMENT: General X-ray: Exam(s) Completed: Chest X-Ray PERIPHERAL IV DATA: Not applicable SIGNED BY: RT Aracelis(R) October 07, 2021 1:08 PM documented in [facility] Instructions* Patient Instructions* Anjali Ortiz APRN.CORK INSULATOR - 10/07/2021 12:25 PM EDT PATIENT PREOPERATIVE INSTRUCTIONS Alysa Asencio MD has scheduled you for your procedure at this surgery center: [facility] Scheduling Office: [phone] --[address] [place] [address]. Please read below carefully for your personalized instructions. Dietary Restrictions: - Nothing to eat or drink after midnight except for a sip of water with approved medications. Medications: Unless instructed differently below, stay on all of your medications until your surgery. Approved medications to take the morning of surgery with a sip of water: Pepcid, Cymbalta, Protonix, Lyrica DO NOT TAKE YOUR LISINOPRIL THE NIGHT BEFORE OR MORNING OF SURGERY - Please continue your current pain medications. If you start any new medications after today's visit, please contact the surgeon's office. Blood Thinning Medications: - Stop NSAIDS (Ibuprofen, Advil, Aleve, Motrin, Celebrex, Mobic, etc.) 7 days before surgery, as directed by your surgeon. - Stop Aspirin 7 days before surgery, as directed by your surgeon. - Stop Vitamin E, ALL multi-vitamins, herbals and dietary supplements 7 days before surgery. - You may take Tylenol (Acetaminophen) or any of your pain medications that do not contain aspirin or NSAIDS as needed. Important Reminders: - Candy, mints, and tobacco products are NOT permitted the morning of surgery. - Hearing aids, dentures and glasses may be worn the morning of surgery. - NO jewelry, body piercings, makeup, hairpins or contacts are to be worn the day of surgery. If you develop symptoms such as a fever, cold, or flu, or have other changes to your health within TWO DAYS of scheduled surgery or the morning of surgery, please contact the surgery center above. Personal Belongings: -Please have photo ID and insurance cards. -If you do not have a copy of advance directives on file with us, please bring a copy with you on the day of surgery. - Leave ALL valuables and money at home or with family members. For Outpatient Procedures: - YOU MUST HAVE A RESPONSIBLE STRANDING MACHINE OPERATOR TAKE YOU HOME. A PROJECTOR BOOTH OPERATOR OR DENTAL INTERNSHIP CANNOT BE MADE A RESPONSIBLE STRANDING MACHINE OPERATOR. - We recommend that a responsible person stays with you overnight to take care of you. - You cannot stay in a hotel alone after outpatient surgery. You will not be permitted to have yoursurgery, if you do not have someone to take care of you. Arrival Time for Surgery: - To obtain your arrival time for surgery, call your physician's office the day before your surgery. - If your surgery is scheduled for Sunday, call the Sunday before. Your surgeon s acetone recovery worker will tell you what time to call the office. - If you have not reached the departmental acetone recovery worker by 5 P.M., call [phone] after 5 P.M. the day before your surgery. Please be aware that emergency situations arise, which may delay or change your surgical time. If this happens, we will notify you as soon as possible and regret any inconvenience. If you already have an Advance Directive, please fax a copy to [phone] or email to for it to be added to your chart. If you do not have an Advance Directive, you can find the appropriate form and more information at [email or web address]. We recommend that youcomplete the Advance Directive form found on the website and bring it with you the day of your surgery. It can be witnessed and scanned into your chart that day. documented in this encounterOhio [facility]06[facility] History and physical note * Anjali Ortiz APRN.CNP - 10/07/2021 11:50 AM EDT HISTORY AND PHYSICAL EXAMINATION SERVICE DATE: 10/07/2021 SERVICE TIME: 3:23 PM PRIMARY CARE PHYSICIAN: Salvatore Camargo MD, MD REASON FOR VISIT: Sabina Espinoza is a 41 year old male who is scheduled for Procedure(s): LAPAROSCOPY DIAGNOSTIC/POSSIBLE OPEN (N/A) at the request of Dr. Alysa Asencio for consultation. My final recommendation will be communicated back to the requesting physician by way of shared medical record or letter. Subjective COVID-19 Immunization Status COVID-19 VACCINE (Series Information) Completed 03/09/2021 Imm Admin: COVID-19 vaccine, age 12+ yr (PFIZER-BIONTECH - PURPLE TOP) 08/14/2020 Imm Admin: COVID-19 vaccine, age 12+ yr (PFIZER-BIONTECH - PURPLE TOP) 07/24/2020 Imm Admin: COVID-19 vaccine, age 12+ yr (PFIZER-BIONTECH - PURPLE TOP) CHIEF COMPLAINT: pain all the time in my abdomen HPI: Pt. presenting with history of Epigastric pain and Gastrojejunal ulcer. He is s/p gastric bypass 2009, he has had complications with subsequent abdominal surgeries. Hx esophageal stricture s/p EGD with stent, removed. He has Single lumen LUE PICC receiving VANCO for an infected RUE PICC. Pt. is recommended for surgery. Pt. reports sharp abdominal pain managed with oxycodone which he did not take this morning; he currently denies any N/V, fevers/chills. REVIEW OF SYSTEMS: General: No weight loss, malaise or fevers. Neurological: No history of TIA's, stroke, LOFTER tumor, impaired sensorium, hemiplegia, paraplegia orquadraplegia. No neurological symptoms or problems. Respiratory: Positive for: asthma (CHILDHOOD ASTHMA). Negative for: COPD, current cough, bronchodilator used daily for the last 3 months, dyspnea, pneumonia within 6 weeks, tobacco use, URI < 2 weeks and obstructive sleep apnea. Cardiovascular: Positive for: hypertension Negative for: CAD, chest pain, CHF, DVT/PE, hyperlipidemia, recent NM and murmur/valvular heart disease. GI: See HPI. Negative for: dysphagia, liver disease and pancreatitis. : No history of dysuria, frequency or incontinence, stones or chronic kidney disease. No difficulty urinating, nocturia > 1 time per night or hematuria. Endocrine: No history of diabetes. Has not taken steroids within the past 30 days. No history of endocrinological symptoms or problems. Hematology: Positive for: anemia. Negative for: thrombocytopenia and chronic anti-coagulation/platelet meds. Oncology: No history of CA metastasis, chemo within 30 days, or radiotherapy within 90 days. No history of oncological symptoms or problems. Psych: No history of psychiatric symptoms or problems. Musculoskeletal: Negative for joint pain or swelling, back pain or muscle pain. Skin: Negative for lesions, rash and itching. PAST MEDICAL HISTORY Diagnosis Date History of transfusion HTN (hypertension) 10/07/2021 PAST SURGICAL HISTORY Procedure Laterality Date EGD PAST SURGICAL HISTORY OF 2009 gastric bypass PAST SURGICAL HISTORY OF abdominal surgeries PAST SURGICAL HISTORY OF Right knee surgery PAST SURGICAL HISTORY OF rhinoplasty and revision REMOVAL GALLBLADDER FAMILY HISTORY Problem Relation Age of Onset No Known Problems Mother No Known Problems Father Social History Tobacco Use Smoking status: Never Smoker Smokeless tobacco: Never Used Substance Use Topics Alcohol use: Never Drug use: Never Prior to Admission medications as of 10/07/21 1225 Medication Sig Last Dose Taking oxyCODONE IR (ROXICODONE) 5 mg immediate release tablet Take 5 mg by mouth every 12 hours as needed. Taking Yes therapeutic multivitamin-minerals (THERA-M PLUS) 9 mg iron-400 mcg tablet Take 1 tablet by mouth every morning. Taking Yes famotidine (PEPCID) 20 mg tablet Take 20 mg by mouth q 12 HR. Taking Yes [id number] D3 500 mg-5 mcg (200 unit) per tablet Take 1 tablet by mouth. Taking Yes vancomycin/0.9 % sod chloride (VANCOMYCIN IN 0.9% SODIUM CL) 1.75 gram/500 mL soln Inject intravenously twice daily. Taking Yes dicyclomine (BENTYL) 20 mg tablet Take by mouth twice daily. 2 tabs 2 times a day Taking Yes DULoxetine (CYMBALTA) 30 mg capsule twice daily. Taking Yes lisinopril (ZESTRIL, PRINIVIL) 20 mg tablet Take 20 mg by mouth twice daily. Taking Yes pantoprazole DR (PROTONIX) 40 mg tablet once daily. In the AM Taking Yes pregabalin (LYRICA) 150 mg capsule Take 150 mg by mouth three times daily. Taking Yes Zolpidem 10 mg subl Take by mouth daily at bedtime. Taking Yes amoxicillin-clavulanic acid (AUGMENTIN) 875-125 mg per tablet Take 1 tablet by mouth twice daily. cyanocobalamin 1,000 mcg/mL INJECT 1 ml INTRAMUSCULARLY EVERY 30 days DULoxetine (CYMBALTA) 30 mg capsule HYDROcodone-acetaminophen (NORCO) 5-325 mg per tablet omeprazole (PRILOSEC) 40 mg capsule GAVILAX 17 gram/dose powder MIX 17 grams of powder (1 cap at marking) with 4-8 ounces of beverage & drink BY MOUTH DAILY potassium chloride ER (K-DUR, KLOR-CON) 20 mEq tablet Take 20 mEq by mouth twice daily. pregabalin (LYRICA) 150 mg capsule traMADol (ULTRAM) 50 mg tablet TAKE 1 TABLET BY MOUTH EVERY 6 HOURS NEEDED FOR PAIN for up to 7 days zolpidem (AMBIEN) 10 mg Take 10 mg by mouth at bedtime as needed. pyridoxine, vitamin B6, (VITAMIN B6) 50 mg tablet Take 1 tablet by mouth once daily. No medication comments found. ALLERGIES Allergen Reactions Prochlorperazine Mental Status Change Valsartan Intolerance Objective PHYSICAL EXAM: General: alert and oriented and healthy appearance. Pertinent negatives noted - not distressed. oriented x 3 . Skin: normal color, no rash or lesions. except lower midline abdominal 3x3 bandage CDI. HEENT: EOM intact, pupils equal round and pupils reactive to light. Pertinent negatives noted - no carotid bruit. Oropharynx clear. Neck Supple . Cardiovascular: Pulse characterized as tachy.Pertinent negatives noted - no murmur, no rub and no gallop. LUE single lumen PICC sinus tachycardia 110 bpm. Respiratory: normal breath sounds, no wheezes or crackles. No chest wall deformity or tenderness. Abdomen: bowel sounds present and soft. Pertinent negatives noted - not tender. Extremities: no deformity, no edema or tenderness, no joint swelling or clubbing. Neurological: normal cognition and motor skills. Gait normal. No weakness or sensory deficit. PAIN ASSESSMENT: Pain Pain Level: 7 Pain Location: Abdomen Description: Aching;Stabbing/Not Incision;Sharp Frequency: Continuous Intervention/Comfort measure: Medication VITALS: BP 145/96 Pulse 113 Temp (Src) 98.2 (Temporal Artery) Resp 16 Ht 5' 10 (1.78m) Wt 220 lb(99.8kg) SpO2 98% BMI 31.57 kg/(m^2). Diagnostic tests reviewed for today's visit: Lab Value Units Date High Low HB 13.7 g/dL 10/07/2021 17.0 13.0 HCT 46.0 % 10/07/2021 51.0 39.0 WBC 7.76 k/uL 10/07/2021 11.00 3.70 PLT 441 k/uL 10/07/2021 400 150 NA 138 mmol/L 10/07/2021 144 136 K 4.6 mmol/L 10/07/2021 5.1 3.7 GLUC 105 mg/dL 10/07/2021 99 74 BUN 9 mg/dL 10/07/2021 24 9 CREAT 0.71 mg/dL 10/07/2021 1.22 0.73 PTSEC No results within date range. INR No results within date range. APTT No results within date range. ALT 27 U/L 10/07/2021 54 10 AST 25 U/L 10/07/2021 40 14 TBILI 0.3 mg/dL 10/07/2021 1.3 0.2 TSH No results within date range. Lab Value Units Date High Low HCGQT No results within date range. UHCG No results within date range. HCG, BODY* No results within date range. Lab Value Units Date High Low ABORHD No results within date range. ABSCREEN No results within date range. No results found for: HBA1C Recent Results (from the past 8760 hour(s)) ECG COMPLETE Collection Time: 10/07/21 11:51 AM Result Value Ventricular Rate 112 Atrial Rate 112 P-R Interval 160 QRS Duration 90 QT Interval 326 QTC Calculation (Bazett) 444 Calculated P [place] 41 Calculated R [place] -26 Calculated T [place] 88 Impression SINUS TACHYCARDIA OTHERWISE NORMAL ECG Confirmed by MATA HART MD ([id number]) on 10/07/2021 12:28:47 PM No results found for this or any previous visit (from the past 08716 hour(s)). 10/07/2021 CXR: IMPRESSION: Bibasilar subsegmental atelectasis. Mild airways inflammation RESULT: Lines, tubes, and devices: Left-sided PICC line traveling to the lower SVC region Lungs and pleura: Peribronchial thickening in the lungs. Linear opacities at the lung bases. No pneumothorax or large effusion is seen Cardiomediastinal silhouette: Normal cardiomediastinal silhouette. Bones and soft tissues: Unremarkable. IN CARE EVERYWHERE 09/22/2021 ECHO: NarrativePerformed by GABRIEL Left Ventricle: Systolic function is normal with an ejection fraction of 55-60%. Normal chamber size with mild concentric hypertrophy and no segmental wall motion abnormalities. Mitral regurgitation, mild Tricuspid regurgitation mild Normal atria No endocardial lesions noted 09/22/2021 CT Chest: IMPRESSION: 1. Redemonstration of multiple bilateral groundglass opacities, improved in the left lung, and worsened in the right upper lobe. Assessment HTN (hypertension) Assessment: Managed with med- did not take BP med or pain med this morning Date: BP: 10/07/2021 145/96 08/08/2021 140/88 08/08/2021 124/81 07/29/2021 142/88 Pt. is Asymptomatic Pt. aware of BP parameters for surgery per anesthesia perspective. Obesity (BMI 30.0-34.9) Assessment: Body mass index is 31.57 kg/m . Weight reduction encouraged. GERD (gastroesophageal reflux disease) Assessment: Pt. reports symptoms controlled on the most part with medication Anemia Assessment: Hx blood transfusion, IV iron infusion. Follows with PCP. last lab acceptable for surgery Richard Activity Status Index: METS: Climb a flight of stairs or walk up a hill (5.50 METs) DASI Score: 5.5 Patient denies any chest pain or undue shortness of breath with the above physical activity. STOP-Bang Score: Has or is being treated for high blood pressure Male patient Denies snoring loudly Denies feeling tired, fatigued, or sleepy during the daytime Has not been observed to stop breathing or choking/gasping during sleep BMI less than or equal to 35 kg/m^2 Patient 50 years old or younger Does not have a large neck STOP-Bang Score: 2 [id number] Score: Age: <65 Sex: male Hypertension history: Yes [id number] Score: 1 ARISCAT Score: Age: <=50 ARISCAT Score: ASA Class: 3 ANESTHESIA FINDINGS: Intubation History: No history of difficult intubation. No abnormal airway history Significant Anesthesia Considerations: none Airway History: Has LUE single lumen PICC No history of difficult airway No abnormal airway history I - PHYSICAL EVALUATION AIRWAY Tracheostomy tube not present Mallampati: II. TM distance: >3 FB. Neck ROM: full ROM without neurological symptoms. Mouth opening: adequate. Short neck: no. Thick neck: no DENTAL Dentures, upper: complete. Dentures, lower: complete. II - ANESTHESIA PLAN ASA Score: 3 Anesthetic Plan: other Anesthetic plan additional comments: *PACC/TCI - anesthesia choice. Prepared for Surgery: . RESULTS CONSULTS: Patient does not require consults for optimization at this time Planned Anesthetic: other anesthesia choice The Following Tests/Procedures Have Been Initiated: EKG, CXR, Labs ordered in Epic per Surgeon ( dated 08/29/2021) EKG performed Orders Placed This Encounter oxyCODONE IR (ROXICODONE) 5 mg immediate release tablet Sig: Take 5 mg by mouth every 12 hours as needed. therapeutic multivitamin-minerals (THERA-M PLUS) 9 mg iron-400 mcg tablet Sig: Take 1 tablet by mouth every morning. famotidine (PEPCID) 20 mg tablet Sig: Take 20 mg by mouth q 12 HR. arhsmal-qngfrjhqb-mwbfylc D3 500 mg-5 mcg (200 unit) per tablet Sig: Take 1 tablet by mouth. vancomycin/0.9 % sod chloride (VANCOMYCIN IN 0.9% SODIUM CL) 1.75 gram/500 mL soln Sig: Inject intravenously twice daily. Instructions Given to Patient: Instructions located in the after visit summary. Patient given verbal and written preop instructions and voices comprehension and compliance. SIGNATURE: Anjali Ortiz APRN.CNP PATIENT NAME: Sabina Espinoza DATE: October 07, 2021 TIME: 11:50 AM PAGER/CONTACT #: documented in this encounterOhio [facility]06-20-2022 Miscellaneous Notes* Telephone Encounter - Ramon Mcneil - 10/03/2021 9:10 AM EDT Pt called regarding surgery scheduled with Dr. Asencio, Dec 05 and is requesting a return phone callto [phone] or [phone]. Message was sent to [place] Laguerre. documented in this encounterOhio Valley Surgical Hospital06-10-2022 Miscellaneous Notes* Telephone Encounter - Carlotta Clemons RN - 09/23/2021 2:57 PM EDT [facility] SPECIALTY CARE COORDINATION TELEPHONE ENCOUNTER Received call that pt is septic and will need 6-9 weeks of antibx therapy. Requested surgery that was scheduled in September be postponed until November. Sent request to schedulers and team updated. documented in this encounterOhio Valley Surgical Hospital05-13-2022 Miscellaneous Notes* Telephone Encounter - Sabina Bean PA-C - 08/26/2021 2:12 PM EDT I contacted patient he is requesting Dr Asencio's office contact his PCP Salvatore Camargo [phone], spoke to office office is currently closed will contact office back next week Patient will have a diagnostic lap on October Sabina Bean PA-C documented in this encounterOhio Valley Surgical Hospital05-13-2022 Miscellaneous Notes* Telephone Encounter - Ramon Mcneil - 08/26/2021 1:58 PM EDT Patient called regarding pain medication - stated Dr. Camargo office tried calling with questions toprescribe and warnings regarding surgery. I sent a staff message to Bert for assistance. documented in this encounterOhio Valley Surgical Hospital05-12-2022 NoteHNO ID: [id number] Author: RT Ko(R) Service: Radiology Author Type: Technologist Type: Progress Notes Filed: 08/25/2021 9:35 AM Note Text: Radiology Service Progress Note PATIENT NAME: Sabina Espinoza DATE OF SERVICE: August 25, 2021 TIME: 9:28 AM PATIENT IDENTITY VERIFICATION COMPLETED USING TWO (2) IDENTIFIERS: Name and Date of confirmed by patient verbally and Name and Date of confirmed by identification band. FALL SCREENING: Has the patient had 2 falls in the last year or 1 fall with injury or currently using an Ambulatory Assistive Device (Walker, Cane, Wheelchair, Crutches, etc.)? No PATIENT GENDER DATA: Male PATIENT RELEVANT IMPLANT DATA REVIEWED: Not Applicable RADIOLOGY DEPARTMENT: General X-ray: Exam(s) Completed: GI/ Procedure(s): Upper GI with barium contrast PERIPHERAL IV DATA: Not applicable SIGNED BY: Lynda Mane, RT(R) August 25, 2021 9:28 [facility]05-10-2022 Miscellaneous Notes* Telephone Encounter - Ramon Mcneil - 08/23/2021 4:51 PM EDT Patient called requesting sooner surgery date with Dr Asencio, stated he's scheduled in October and wouldreally to something sooner. Sent a message to Dr. Asencio team to Please call patient at [phone] documented in this encounterOhio Valley Surgical Hospital05-06-2022 Miscellaneous Notes* Telephone Encounter - Carlotta Clemons RN - 08/19/2021 11:16 AM EDT BMI SPECIALTY CARE COORDINATION TELEPHONE ENCOUNTER Patient was seen in clinic and POC was in place. Completed EGD/ outstanding UPPER GI will get done in [place] closer to home.. Surgery date confirmed. Will call pt with instructions closer to date. Pt aware of plan. C/O vomiting but this is daily and is chronic unable to eat and tolerates TPN Pt asking for pain meds referred to MD who was managing near home documented in this encounterOhio Valley Surgical Hospital04-25-2022 Nurse Note* Kerrie Greenwood RN - 08/08/2021 3:32 PM EDT Homegoing instructions reviewed with patient's stepfather who will be responsible for patient's care when he arrives home * Kerrie Greenwood RN - 08/08/2021 3:04 PM EDT heparin lock flush 5cc/500 units admistered through PICC line Left upper arm- + blood return as ordered * Kerrie Greenwood RN - 08/08/2021 2:14 PM EDT AMBULATORY PATIENT EDUCATION NOTE TOPIC: GI PROCEDURES: Esophagogastroduodenoscopy(EGD) with or without biopies based on clinical findings, removal of polyps or lesions READINESS TO LEARN INSTRUCTION PROVIDED TO: Caregiver COGNITIVE ABILITY: Alert and oriented PTED MOTIVATION TO LEARN: Eager FAMILY SUPPORT: None - Unavailable/disinterested IPATIENT LEARNS BEST BY: Individual Instruction Written Instruction - Hand-outs Verbal Instruction FACTORS AFFECTING LEARNING: None PHYSICAL LIMITATIONS AFFECTING LEARNING: None LEARNING RESPONSE METHOD OF INSTRUCTION: Individual instruction PATIENT / FAMILY RESPONSE: Verbalizes understanding of: WORSENING CONDITION- Signs and symptoms of aworsening condition that warrant a call to the physician FOLLOW-UP PLAN: Complete - No need for follow-up SUPPLEMENTAL MATERIAL: Procedure Discharge Instructions REFERRAL (RECOMMENDATION): None Electronically Signed By: Kerrie Greenwood RN * Thee Hernandez RN - 08/08/2021 12:30 PM EDT PRE OP LEARNING ASSESSMENT PROCEDURE/SURGERY: GI PROCEDURES: EGD READINESS TO LEARN COGNITIVE ABILITY: Alert and oriented MOTIVATION TO LEARN: Eager FAMILY SUPPORT: Unable to assess - Family not present PATIENT LEARNS BEST BY: Individual Instruction FACTORS AFFECTING LEARNING: None PHYSICAL LIMITATIONS AFFECTING LEARNING: None Electronically Signed By: Thee Hernandez RN In Department: GASTROENTEROLOGY documented in this encounterOhio Valley Surgical Hospital04-15-2022 History and physical note * Alysa Asencio MD - 07/29/2021 9:10 AM EDT BARIATRIC SURGERY NEW PATIENT CONSULTATION HISTORY AND PHYSICAL Date: July 29, 2021 Time: 8:25 AM Name: Sabina Espinoza Mr. Sabina Espinoza is a 41-year-old male who presents to clinic to discuss complicating sequelae from aremote gastric bypass surgery. Of note, he underwent LRNYGB in 2009 which was without issues. He was hospitalized with a SBO in 2019 and underwent an ex lap with lysis of adhesions. He was reoperatedon 4 days later for a recurrent obstruction. Since that time he has had persistent nausea and vomiting and poor PO intake. In May he was started on TPN for PO intolerance and over the next few months he had ~8 EGDswith stent placements for a known GJ ulceration and a GJ stricture. He had esophageal stents in foras long as 16 weeks and this stricture persisted after each stent placement and dilation.. He has been on TPN for 30 days and they are now cycling it for 12 hours. During one of his previous EGDs there was concern for a gastrogastric fistula but this was not seen on the CT or upper GI that was donein June and July of this year. He has been gaining weight and is passing gas and having bowel movements. Given the complexity of his care, he was referred for definitive management of his marginal ulceration and possible esophageal stricture. Of note, he is traveling from his home in [place], [place] (1h 20 minutes to [facility]). PAST MEDICAL HISTORY: No relevant PMH. PAST SURGICAL HISTORY: 2009- LRNY and cholecystectomy 2019 - Ex lap x2 for SBO FAMILY HISTORY: No family history on file. SOCIAL HISTORY: Social History Tobacco Use Smoking status: Not on file Smokeless tobacco: Not on file Substance Use Topics Alcohol use: Not on file Drug use: Not on file MEDICATIONS: Prior to Admission Medications: amoxicillin-clavulanic acid (AUGMENTIN) 875-125 mg per tablet Take 1 tablet by mouth twice daily. cyanocobalamin 1,000 mcg/mL INJECT 1 ml INTRAMUSCULARLY EVERY 30 days dicyclomine (BENTYL) 20 mg tablet DULoxetine (CYMBALTA) 30 mg capsule DULoxetine (CYMBALTA) 30 mg capsule HYDROcodone-acetaminophen (NORCO) 5-325 mg per tablet lisinopril (ZESTRIL, PRINIVIL) 20 mg tablet Take 20 mg by mouth twice daily. omeprazole (PRILOSEC) [address] (PROTONIX) 40 mg tablet GAVILAX 17 gram/dose powder MIX 17 grams of powder (1 cap at marking) with 4-8 ounces of beverage & drink BY MOUTH DAILY potassium chloride ER (K-DUR, KLOR-CON) 20 mEq tablet Take 20 mEq by mouth twice daily. pregabalin (LYRICA) 150 mg capsule Take 150 mg by mouth three times daily. pregabalin (LYRICA) 150 mg capsule traMADol (ULTRAM) 50 mg tablet TAKE 1 TABLET BY MOUTH EVERY 6 HOURS NEEDED FOR PAIN for up to 7 days Zolpidem 10 mg subl zolpidem (AMBIEN) 10 mg Take 10 mg by mouth at bedtime as needed. No current facility-administered medications for this visit. ALLERGIES: ALLERGIES Not on File REVIEW OF SYSTEMS: GENERAL: Positive for weight loss. NECK: Negative for lumps, goiter, pain and significant neck swelling RESPIRATORY: Negative for cough, wheezing or shortness of breath. CARDIOVASCULAR: Negative for chest pain, leg swelling or palpitations. GI: Negative for abdominal discomfort, blood in stools or black stools or change in bowel habits : No history of dysuria, frequency or incontinence MUSCULOSKELETAL: Negative for joint pain or swelling, back pain or muscle pain. SKIN: Negative for lesions, rash, and itching. PSYCH: Negative for sleep disturbance, mood disorder and recent psychosocial stressors. ENDOCRINE: Negative for cold or heat intolerance, polyuria, polydipsia and goiter. PHYSICAL EXAM: There were no vitals taken for this visit. GENERAL: No apparent distress. Pt is alert and oriented x3. Skin: warm Lungs: Normal work of breathing on rooma ir Heart: RRR Abdomen: soft, non-tender, well healed midline incision, small suture granuloma in the inferior midline Extremities: Normal exam of the extremities Assessment 06/28 CT chest: IMPRESSION: 1. Dilated fluid-filled esophagus with narrowing of the GE junction. Findings concerning for distalesophageal stricture. 2. Patchy airspace disease in the left lung compatible with pneumonia. 06/30 Upper GI: FINDINGS: Focal narrowing at the the bypass junction with resultant dilatation of the esophagus suggesting stenosis. Slow progression of contrast through the esophagus/site of narrowing into the Lauren limb and proximal small bowel. Delayed imaging demonstrates emptying of contrast from the the esophagus and more distal progression into the small bowel. 07/27 CT imaging: FINDINGS: Gastric bypass findings are again demonstrated within the upper abdomen Terminal ileum appropriate Appendix difficult to visualize but no inflammatory changes at the expected location the appendix Again demonstrated are abnormal small bowel loops within the right upper quadrant and right mid abdomen Liver spleen pancreas adrenal glands and kidneys show no acute findings 1. Abnormally distended small bowel loops right upper quadrant and right mid abdomen are again demonstrated. Significance uncertain. Process could be further characterized with small bowel follow-through and also possibly a CT enterography with contrast if indicated clinically. Impression: Sabina Espinoza is a 41 year old male with the following diagnosis and co-morbidities: PLAN: Sabina Espinoza is a 41 year old male who underwent LRNY in 2009 c/b SBO requiring ex lap in 2019 who now presents with a GJ ulcer and stricture that has not responded to serial dilation and stent placement. Possible gastro-gastric fistula on OSH EGD although we do not have the imaging here. -will obtain OSH CT scan but will order an upper GI and will scope him here ourselves to evaluate for a GG fistula -preop nutrition labs ordered -will plan for GJ revision pending his scope and upper GI Filiberto Bucio MD General Surgery, PGY-4 Pager - [phone] Complex history as above. History of ulcer and stricture not responsive to endoscopic treatment. Needs upper GI to rule out gastric gastric fistula. Upper endoscopy for anatomy. The meantime we will check his labs and ensure that his TPN is appropriate. He is probably getting need surgical revision. Alysa Asencio MD documented in this encounterOhio [facility] Hospital04-15-2022 History and physical note * Alysa Asencio MD - 07/29/2021 9:10 AM EDT BARIATRIC SURGERY NEW PATIENT CONSULTATION HISTORY AND PHYSICAL Date: July 29, 2021 Time: 8:25 AM Name: Sabina Espinoza Mr. Sabina Espinoza is a 41-year-old male who presents to clinic to discuss complicating sequelae from aremote gastric bypass surgery. Of note, he underwent LRNYGB in 2009 which was without issues. He was hospitalized with a SBO in 2019 and underwent an ex lap with lysis of adhesions. He was reoperatedon 4 days later for a recurrent obstruction. Since that time he has had persistent nausea and vomiting and poor PO intake. In May he was started on TPN for PO intolerance and over the next few months he had ~8 EGDswith stent placements for a known GJ ulceration and a GJ stricture. He had esophageal stents in foras long as 16 weeks and this stricture persisted after each stent placement and dilation.. He has been on TPN for 30 days and they are now cycling it for 12 hours. During one of his previous EGDs there was concern for a gastrogastric fistula but this was not seen on the CT or upper GI that was donein June and July of this year. He has been gaining weight and is passing gas and having bowel movements. Given the complexity of his care, he was referred for definitive management of his marginal ulceration and possible esophageal stricture. Of note, he is traveling from his home in [place], [place] (1h 20 minutes to [facility]). PAST MEDICAL HISTORY: No relevant PMH. PAST SURGICAL HISTORY: 2009- LRNY and cholecystectomy 2019 - Ex lap x2 for SBO FAMILY HISTORY: No family history on file. SOCIAL HISTORY: Social History Tobacco Use Smoking status: Not on file Smokeless tobacco: Not on file Substance Use Topics Alcohol use: Not on file Drug use: Not on file MEDICATIONS: Prior to Admission Medications: amoxicillin-clavulanic acid (AUGMENTIN) 875-125 mg per tablet Take 1 tablet by mouth twice daily. cyanocobalamin 1,000 mcg/mL INJECT 1 ml INTRAMUSCULARLY EVERY 30 days dicyclomine (BENTYL) 20 mg tablet DULoxetine (CYMBALTA) 30 mg capsule DULoxetine (CYMBALTA) 30 mg capsule HYDROcodone-acetaminophen (NORCO) 5-325 mg per tablet lisinopril (ZESTRIL, PRINIVIL) 20 mg tablet Take 20 mg by mouth twice daily. omeprazole (PRILOSEC) [address] (PROTONIX) 40 mg tablet GAVILAX 17 gram/dose powder MIX 17 grams of powder (1 cap at marking) with 4-8 ounces of beverage & drink BY MOUTH DAILY potassium chloride ER (K-DUR, KLOR-CON) 20 mEq tablet Take 20 mEq by mouth twice daily. pregabalin (LYRICA) 150 mg capsule Take 150 mg by mouth three times daily. pregabalin (LYRICA) 150 mg capsule traMADol (ULTRAM) 50 mg tablet TAKE 1 TABLET BY MOUTH EVERY 6 HOURS NEEDED FOR PAIN for up to 7 days Zolpidem 10 mg subl zolpidem (AMBIEN) 10 mg Take 10 mg by mouth at bedtime as needed. No current facility-administered medications for this visit. ALLERGIES: ALLERGIES Not on File REVIEW OF SYSTEMS: GENERAL: Positive for weight loss. NECK: Negative for lumps, goiter, pain and significant neck swelling RESPIRATORY: Negative for cough, wheezing or shortness of breath. CARDIOVASCULAR: Negative for chest pain, leg swelling or palpitations. GI: Negative for abdominal discomfort, blood in stools or black stools or change in bowel habits : No history of dysuria, frequency or incontinence MUSCULOSKELETAL: Negative for joint pain or swelling, back pain or muscle pain. SKIN: Negative for lesions, rash, and itching. PSYCH: Negative for sleep disturbance, mood disorder and recent psychosocial stressors. ENDOCRINE: Negative for cold or heat intolerance, polyuria, polydipsia and goiter. PHYSICAL EXAM: There were no vitals taken for this visit. GENERAL: No apparent distress. Pt is alert and oriented x3. Skin: warm Lungs: Normal work of breathing on rooma ir Heart: RRR Abdomen: soft, non-tender, well healed midline incision, small suture granuloma in the inferior midline Extremities: Normal exam of the extremities Assessment 06/28 CT chest: IMPRESSION: 1. Dilated fluid-filled esophagus with narrowing of the GE junction. Findings concerning for distalesophageal stricture. 2. Patchy airspace disease in the left lung compatible with pneumonia. 06/30 Upper GI: FINDINGS: Focal narrowing at the the bypass junction with resultant dilatation of the esophagus suggesting stenosis. Slow progression of contrast through the esophagus/site of narrowing into the Lauren limb and proximal small bowel. Delayed imaging demonstrates emptying of contrast from the the esophagus and more distal progression into the small bowel. 07/27 CT imaging: FINDINGS: Gastric bypass findings are again demonstrated within the upper abdomen Terminal ileum appropriate Appendix difficult to visualize but no inflammatory changes at the expected location the appendix Again demonstrated are abnormal small bowel loops within the right upper quadrant and right mid abdomen Liver spleen pancreas adrenal glands and kidneys show no acute findings 1. Abnormally distended small bowel loops right upper quadrant and right mid abdomen are again demonstrated. Significance uncertain. Process could be further characterized with small bowel follow-through and also possibly a CT enterography with contrast if indicated clinically. Impression: Sabina Espinoza is a 41 year old male with the following diagnosis and co-morbidities: PLAN: Sabina Espinoza is a 41 year old male who underwent LRNY in 2009 c/b SBO requiring ex lap in 2019 who now presents with a GJ ulcer and stricture that has not responded to serial dilation and stent placement. Possible gastro-gastric fistula on OSH EGD although we do not have the imaging here. -will obtain OSH CT scan but will order an upper GI and will scope him here ourselves to evaluate for a GG fistula -preop nutrition labs ordered -will plan for GJ revision pending his scope and upper GI Filiberto Bucio MD General Surgery, PGY-4 Pager - [phone] Complex history as above. History of ulcer and stricture not responsive to endoscopic treatment. Needs upper GI to rule out gastric gastric fistula. Upper endoscopy for anatomy. The meantime we will check his labs and ensure that his TPN is appropriate. He is probably getting need surgical revision. Alysa Asencio MD documented in this encounterOhio [facility] Hospital04-13-2022 History of Present illness Narrative* Carlotta Clemons RN - 07/27/2021 12:24 PM EDT BMI SPECIALTY CARE COORDINATION ENCOUNTER Outside records received h/o RNY 2009 with a revision in 2018 or 2019 complicated by a SM bowel obstruction, esophageal stricture requiring repeated dilitation and stent placement.. CC N/V and food intolerance. Symptoms started after stent removal 06/22/21, EGD 06/30 showed a 10mm ulcer at the GJ anastamosis. There was no evidence of GJ stenosis. Taking omeprazole 40mg BID. Upper Barium showed focal narrowing/?fistula at the bypass junction with resultant dilatation of the esophagus showing stenosis. GI recommended TPN for 2-3 mo.. OV 07/29 documented in this encounterOhio Valley Surgical Hospital03-21-2022 History of Present illness Narrative* Jose Bello DO - 07/04/2021 1:32 PM EDT Images from the original note were not included. [facility] Office: [phone] Peña Billings DO, Ady Shine DO, Houston Cooper DO, Darell Krueger DO, Elena Allison MD, Hannah Rodrigues MD, Murphy Ball MD, Shraddha Hamm MD, Janentte Albert MD, Dinesh Burgess MD, Flor Donnelly MD, Nate Bone DO, Fabricio Mo DO, Rosalio Green MD, Jose Bello DO, MD Ladan, Bia Hamilton MD, Chalo Sams MD, Filiberto Billings DO, Jose Medina MD, Elian Navarro MD, Latonia Chavez, CORK INSULATOR, Eliz Esquivel, CORK INSULATOR, Suzy Wu, CORK INSULATOR, Blanche Desouza, LOFTER, Edgar Staton, CORK INSULATOR, Suyapa Almaguer, CORK INSULATOR, Cathy Peña, CORK INSULATOR, Loan Greenberg, CORK INSULATOR, Hever Tomlinson, CORK INSULATOR, Niki Badillo, PA-C, Arlyn Villegas, DNP, Deneen Stone, DNP, Leandra Rich, CORK INSULATOR, Sapphire Rivera, CORK INSULATOR, Araceli May, CORK INSULATOR, Yuki Orosco, CORK INSULATOR, Felipa Rodrigez, CORK INSULATOR, Sharmin Galdamez, CORK INSULATOR [facility] IN-PATIENT SERVICE [facility] Progress Note 07/04/2021 1:32 PM Name: Sabina Espinoza Acct: [id number] Room: 0439/0439-01 IP Day: 4 Admit Date: 06/30/2021 1:58 AM PCP: Salvatore Camargo MD Code Status: Full Code Subjective: C/C: Difficulty swallowing Interval History Status: not changed Seeing pt for : TPN Pt says he feels good today just waiting on [facility] to get set up Still on TPN Labs have been stable Brief History: Sabina Espinoza is a 41 y.o. male with a history of RNY in 2010 with revision in 2019 complicated by small bowel obstruction, esophageal stricture requiring repeated dilatation and stent placement who presents to the hospital complaints of nausea and vomiting and food intolerance. Symptoms started shortly after his most recent stent was removed (06/22/21). Patient states that he has had difficulty swallowing foods and feels a globus sensation. He denies any hematemesis, hematochezia. Denies any difficulty breathing. Patient follows with Dr. Val crawford. Also follows with Dr. Moyer. Patient denies any fevers, chills or illness. Patient was slightly anxious however denied any other complaints. Blood pressure slightly elevated admission. Labs are only significant for MCV of 73/hemoglobin 10.7. Patient did not have any leukocytosis. Review of Systems: Constitutional: negative for chills, fevers, sweats Respiratory: negative for cough, dyspnea on exertion, shortness of breath, wheezing Cardiovascular: negative for chest pain, chest pressure/discomfort, lower extremity edema, palpitations Gastrointestinal: negative for abdominal pain, constipation, diarrhea, nausea, he says he is doing better with liquids Neurological: negative for dizziness, headache Medications: Allergies: Allergies Allergen Reactions Prochlorperazine Valsartan Current Meds: Scheduled Meds: pregabalin 150 mg Oral Q8H DULoxetine 30 mg Oral BID omeprazole 40 mg Oral BID AC sodium chloride flush 5-40 mL IntraVENous 2 times per day enoxaparin 40 mg SubCUTAneous Daily lidocaine 1 % injection 5 mL IntraDERmal Once sodium chloride flush 5-40 mL IntraVENous 2 times per day Continuous Infusions: PN-Adult Premix 09/02 - Standard Electrolytes - Central Line 84 mL/hr at 07/04/21 0617 sodium chloride sodium chloride PRN Meds: zolpidem, sodium chloride flush, sodium chloride, potassium chloride OR potassium alternative oral replacement OR potassium chloride, magnesium sulfate, ondansetron OR ondansetron, polyethylene glycol, acetaminophen OR acetaminophen, sodium chloride flush, sodium chloride Data: Past Medical History: has a past medical history of Anemia, Chronic pain syndrome, Esophageal stricture, Essential hypertension, GERD (gastroesophageal reflux disease), H/O bariatric surgery, H/O small bowel obstruction, Malnutrition (HCC), On total parenteral nutrition (TPN), and Tachycardia. Social History: reports that he has never smoked. He has never used smokeless tobacco. He reports that he does not drink alcohol and does not use drugs. Family History: Family History Problem Relation Age of Onset No Known Problems Mother Hypertension Father Heart Attack Father at the age of 58 from heart attack Coronary Art Dis Father Cancer Maternal Grandfather Unknown Vitals: BP (!) 124/91 Pulse 98 Temp 97.7 F (36.5 C) (Oral) Resp 16 Ht 5' 10 (1.778 m) Wt 222 lb (100.7 kg) SpO2 99% BMI 31.85 kg/m Temp (24hrs), Av.9 F (36.6 C), Min:97.7 F (36.5 C), Max:98 F (36.7 C) No results for input(s): POCGLU in the last 72 hours. I/O (24Hr): Intake/Output Summary (Last 24 hours) at 07/04/2021 1332 Last data filed at 07/04/2021 0617 Gross per 24 hour Intake 2245.41 ml Output Net 2245.41 ml Labs: Hematology: No results for input(s): WBC, RBC, HGB, HCT, MCV, MCH, MCHC, RDW, PLT, MPV, SEDRATE, CRP, INR, DDIMER, HA1OEVKQ, LABABSO in the last 72 hours. Invalid input(s): PT Chemistry: Recent Labs 07/02/21 1155 NA 136 K 4.5 CL 104 CO2 22 GLUCOSE 106* BUN 9 CREATININE 0.40* MG 2.1 ANIONGAP 10 LABGLOM >60 GFRAA >60 CALCIUM 9.2 CAION 1.17 PHOS 2.9 No results for input(s): PROT, LABALBU, LABA1C, Q4PLAUR, Y0EZSUC, FT4, TSH, AST, ALT, LDH, GGT, ALKPHOS, LABGGT, BILITOT, BILIDIR, AMMONIA, AMYLASE, LIPASE, LACTATE, CHOL, HDL, LDLCHOLESTEROL, CHOLHDLRATIO, TRIG, VLDL, OLU51RY, PHENYTOIN, PHENYF, URICACID, POCGLU in the last 72 hours. ABG:No results found for: POCPH, PHART, PH, POCPCO2, XMH5ENK, PCO2, POCPO2, PO2ART, PO2, POCHCO3, FUN5UWY, HCO3, NBEA, PBEA, BEART, BE, THGBART, THB, TDL3MFQ, PYRQ8LOB, A1UAZSKE, O2SAT, FIO2 Lab Results Component Value Date/Time SPECIAL NOT REPORTED 04/03/2020 11:44 AM Lab Results Component Value Date/Time CULTURE NO GROWTH 04/03/2020 11:44 AM Radiology: [place] [facility]GI Result Date: 06/30/2021 Findings suggestive of stenosis as detailed above without definite appreciation of fistula. Findings were discussed with HAYDER PENG at approximately 3:35 pm on 06/30/2021. Physical Examination: General appearance: alert, cooperative and no distress Mental Status: oriented to person, place and time and normal affect Lungs: clear to auscultation bilaterally, normal effort Heart: regular rate and rhythm, no murmur Abdomen: soft, nontender, nondistended, normal bowel sounds, no masses, hepatomegaly, splenomegaly Extremities: no edema, redness, tenderness in the calves Skin: no gross lesions, rashes, induration Assessment: Hospital Problems Last Modified POA * (Principal) Esophageal stricture 06/30/2021 Yes Severe protein-calorie malnutrition ([place]: less than 60% of standard weight) (HCC) 06/30/2021 Yes Esophageal dysphagia 06/30/2021 Yes Essential hypertension 06/29/2021 Yes History of Lauren-en-Y gastric bypass 06/29/2021 Yes Peptic ulcer disease 06/30/2021 Yes Gastric foreign body 06/30/2021 Yes Complications of gastric bypass surgery 06/30/2021 Yes Chronic gastrojejunal ulcer with obstruction (HCC) 06/30/2021 Yes Obesity (BMI 30-39.9) 06/30/2021 Yes Depression 06/30/2021 Yes Neuropathy 06/30/2021 Yes Gastritis without bleeding 06/30/2021 Yes On total parenteral nutrition (TPN) 07/01/2021 Yes Plan: 1. 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 GI recommend outpatient follow-up with [facility] for revision surgery. They are okay with him being discharged on TPN. Patient is very comfortable TPN due to previously being on it. We did reach out to patient's PCP who will be managing as an outpatient. 2. Marginal ulcer at the gastrojejunal anastomosis: Omeprazole 40 mg twice daily for 8 weeks. Patient will need to open the capsule and dump contents and tablets hospital from swallowing 3. Severe protien calorie malnutrition: TPN on discharge 4. Obesity BMI of 31: Patient has had some significant weight gain over the last year since gettinghealthy. Recommend increase exercise as tolerated 5. Depression: Continue Cymbalta 30 mg daily 6. Neuropathy: check B12/folate, thiamine level. Continue gabapentin and Cymbalta Check labs today for electrolytes Discussed with CM and nursing. D/c order placed 07/01 Jose Bello DO 07/04/2021 1:32 PM * Jose Bello DO - 07/03/2021 1:09 PM EDT Images from the original note were not included. [facility] Office: [phone] Peña Billings DO, Ady Shine DO, Houston Cooper DO, Darell Krueger DO, Elena Allison MD, Hannah Rodrigues MD, Murphy Ball MD, Shraddha Hamm MD, Jannette Albert MD, Dinesh Burgess MD, Flor Donnelly MD, Nate Bone DO, Fabricio Mo DO, Rosalio Green MD, Jose Bello DO, MD Ladan, Bia Hamilton MD, Chalo Sams MD, Filiberto Billings DO, Jose Medina MD, Elian Navarro MD, Latonia Chavez CNP, Eliz Esquivel CNP, Suzy Wu CNP, Blanche Desouza, LOFTER, Edgar Staton CNP, Suyapa Almaguer CNP, Cathy Peña, [place], Loan Greenberg, CORK INSULATOR, Hever Tomlinson, CORK INSULATOR, Niki Badillo, SOURAV-C, Arlyn Villegas, DNP, Deneen Stone, DNP, Leandra Rich, CORK INSULATOR, Sapphire Rivera, CORK INSULATOR, Araceli May, CORK INSULATOR, Yukijake Orosco CNP, Felipa Rodrigez CNP, Sharmin Galdamez CNP [facility] IN-PATIENT SERVICE [facility] Progress Note 07/03/2021 1:09 PM Name: Sabina Espinoza Acct: [id number] Room: 0439/0439-01 Day: 3 Admit Date: 06/30/2021 1:58 AM PCP: Salvatore Camargo MD Code Status: Full Code Subjective: C/C: Difficulty swallowing Interval History Status: not changed Seeing pt for : TPN Pt says he feels good today just waiting on [facility] to get set up Still on TPN Labs have been stable Brief History: Sabina Espinoza is a 41 y.o. male with a history of RNY in 2010 with revision in 2019 complicated by small bowel obstruction, esophageal stricture requiring repeated dilatation and stent placement who presents to the hospital complaints of nausea and vomiting and food intolerance. Symptoms started shortly after his most recent stent was removed (06/22/21). Patient states that he has had difficulty swallowing foods and feels a globus sensation. He denies any hematemesis, hematochezia. Denies any difficulty breathing. Patient follows with Dr. Neal outpatient. Also follows with Dr. Moyer. Patient denies any fevers, chills or illness. Patient was slightly anxious however denied any other complaints. Blood pressure slightly elevated admission. Labs are only significant for MCV of 73/hemoglobin 10.7. Patient did not have any leukocytosis. Review of Systems: Constitutional: negative for chills, fevers, sweats Respiratory: negative for cough, dyspnea on exertion, shortness of breath, wheezing Cardiovascular: negative for chest pain, chest pressure/discomfort, lower extremity edema, palpitations Gastrointestinal: negative for abdominal pain, constipation, diarrhea, nausea, he says he is doing better with liquids Neurological: negative for dizziness, headache Medications: Allergies: Allergies Allergen Reactions Prochlorperazine Valsartan Current Meds: Scheduled Meds: pregabalin 150 mg Oral Q8H DULoxetine 30 mg Oral BID omeprazole 40 mg Oral BID AC sodium chloride flush 5-40 mL IntraVENous 2 times per day enoxaparin 40 mg SubCUTAneous Daily lidocaine 1 % injection 5 mL IntraDERmal Once sodium chloride flush 5-40 mL IntraVENous 2 times per day Continuous Infusions: PN-Adult Premix 5/20 - Standard Electrolytes - Central Line PN-Adult Premix 5/20 - Standard Electrolytes - Central Line 84 mL/hr at 07/02/21 1835 sodium chloride sodium chloride PRN Meds: sodium chloride flush, sodium chloride, potassium chloride OR potassium alternative oral replacement OR potassium chloride, magnesium sulfate, ondansetron OR ondansetron, polyethylene glycol, acetaminophen OR acetaminophen, sodium chloride flush, sodium chloride Data: Past Medical History: has a past medical history of Anemia, Chronic pain syndrome, Esophageal stricture, Essential hypertension, GERD (gastroesophageal reflux disease), H/O bariatric surgery, H/O small bowel obstruction, Malnutrition (HCC), On total parenteral nutrition (TPN), and Tachycardia. Social History: reports that he has never smoked. He has never used smokeless tobacco. He reports that he does not drink alcohol and does not use drugs. Family History: Family History Problem Relation Age of Onset No Known Problems Mother Hypertension Father Heart Attack Father at the age of 58 from heart attack Coronary Art Dis Father Cancer Maternal Grandfather Unknown Vitals: BP (!) 125/95 Pulse 99 Temp 97.9 F (36.6 C) (Oral) Resp 16 Ht 5' 10 (1.778 m) Wt 222 lb (100.7 kg) SpO2 94% BMI 31.85 kg/m Temp (24hrs), Av.1 F (36.7 C), Min:97.9 F (36.6 C), Max:98.3 F (36.8 C) No results for input(s): POCGLU in the last 72 hours. I/O (24Hr): Intake/Output Summary (Last 24 hours) at 07/03/2021 1309 Last data filed at 07/03/2021 0616 Gross per 24 hour Intake 3289.1 ml Output Net 3289.1 ml Labs: Hematology: No results for input(s): WBC, RBC, HGB, HCT, MCV, MCH, MCHC, RDW, PLT, MPV, SEDRATE, CRP, INR, DDIMER, [id number], LABABSO in the last 72 hours. Invalid input(s): PT Chemistry: Recent Labs 07/01/21 0326 07/02/21 1155 NA 142 136 K 3.9 4.5 CL 109* 104 CO2 22 22 GLUCOSE 105* 106* BUN 9 9 CREATININE 0.41* 0.40* MG 2.2 2.1 ANIONGAP 11 10 LABGLOM >60 >60 GFRAA >60 >60 CALCIUM 8.6 9.2 CAION -- 1.17 PHOS 2.6 2.9 Recent Labs 07/01/21 0326 TRIG 74 ABG:No results found for: POCPH, PHART, PH, POCPCO2, IXD3JGY, PCO2, POCPO2, PO2ART, PO2, POCHCO3, HKU8BOH, HCO3, NBEA, PBEA, BEART, BE, THGBART, THB, [id number], EXXR0PHK, I3DDENRF, O2SAT, FIO2 Lab Results Component Value Date/Time SPECIAL NOT REPORTED 04/03/2020 11:44 AM Lab Results Component Value Date/Time CULTURE NO GROWTH 04/03/2020 11:44 AM Radiology: [place] [facility]GI Result Date: 06/30/2021 Findings suggestive of stenosis as detailed above without definite appreciation of fistula. Findings were discussed with HAYDER PENG at approximately 3:35 pm on 06/30/2021. Physical Examination: General appearance: alert, cooperative and no distress Mental Status: oriented to person, place and time and normal affect Lungs: clear to auscultation bilaterally, normal effort Heart: regular rate and rhythm, no murmur Abdomen: soft, nontender, nondistended, normal bowel sounds, no masses, hepatomegaly, splenomegaly Extremities: no edema, redness, tenderness in the calves Skin: no gross lesions, rashes, induration Assessment: Hospital Problems Last Modified POA * (Principal) Esophageal stricture 06/30/2021 Yes Severe protein-calorie malnutrition ([place]: less than 60% of standard weight) (HCC) 06/30/2021 Yes Esophageal dysphagia 06/30/2021 Yes Essential hypertension 06/29/2021 Yes History of Lauren-en-Y gastric bypass 06/29/2021 Yes Peptic ulcer disease 06/30/2021 Yes Gastric foreign body 06/30/2021 Yes Complications of gastric bypass surgery 06/30/2021 Yes Chronic gastrojejunal ulcer with obstruction (HCC) 06/30/2021 Yes Obesity (BMI 30-39.9) 06/30/2021 Yes Depression 06/30/2021 Yes Neuropathy 06/30/2021 Yes Gastritis without bleeding 06/30/2021 Yes On total parenteral nutrition (TPN) 07/01/2021 Yes Plan: 1. 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 GI recommend outpatient follow-up with [facility] for revision surgery. They are okay with him being discharged on TPN. Patient is very comfortable TPN due to previously being on it. We did reach out to patient's PCP who will be managing as an outpatient. 2. Marginal ulcer at the gastrojejunal anastomosis: Omeprazole 40 mg twice daily for 8 weeks. Patient will need to open the capsule and dump contents and tablets hospital from swallowing 3. Severe protien calorie malnutrition: TPN on discharge 4. Obesity BMI of 31: Patient has had some significant weight gain over the last year since gettinghealthy. Recommend increase exercise as tolerated 5. Depression: Continue Cymbalta 30 mg daily 6. Neuropathy: check B12/folate, thiamine level. Continue gabapentin and Cymbalta Check labs today for electrolytes Discussed with CM and nursing. D/c order placed 07/01 Jose Bello DO 07/03/2021 1:09 PM * Jane Ojeda, MS, RD, LD - 07/03/2021 11:31 AM EDT Comprehensive Nutrition Assessment Type and Reason for Visit: Reassess Nutrition Recommendations/Plan: - Continue CLD, monitor for intake/tolerance - Continue Clear ONS, reduce to BID - Continue PN-Adult Premix 09/02 @ 84 mL/hr - Provides 1778 kcal, 101 g PRO - Monitor po intake, TPN/PO tolerance, weight Nutrition Assessment: Per pt, ~75% intake on CLD at breakfast today. Likes Ensure Clear, drinking ~2 daily. Discussed w/ RN, pt unlikely to d/c today. TPN to continue. Malnutrition Assessment: Malnutrition Status: At risk for malnutrition (Comment) Context: Acute Illness (on Chronic) Findings of the 6 clinical characteristics of malnutrition: Energy Intake: 7 - 50% or less of estimated energy requirements for 5 or more days Weight Loss: No significant weight loss (Weight gain - previous h/o weight loss.) Body Fat Loss: 1 - Mild body fat loss Orbital Muscle Mass Loss: No significant muscle mass loss Fluid Accumulation: 1 - Mild Extremities Lace Cutter Strength: Not Performed Estimated Daily Nutrient Needs: Energy (kcal): MSJ x 1.05-1-1 = 6410-0528 kcals/day; Weight Used for Energy Requirements: Current Protein (g): 1.2-1.5 gm/kg = 90-115 gm pro/day; Weight Used for Protein Requirements: [place] Fluid (ml/day): 2600 mL/day or per MD; Method Used for Fluid Requirements: Other (Comment) (Evelyne Anand) Nutrition Related Findings: Labs/meds reviewed. LBM 07/02. No edema noted. Wounds: (chronic wound to umbilicus) Current Nutrition Therapies: ADULT DIET; Clear Liquid; advance as tolerated PN-Adult Premix 09/02 - Standard Electrolytes - Central Line ADULT ORAL NUTRITION SUPPLEMENT; Breakfast, Dinner; Clear Liquid Oral Supplement Anthropometric Measures: Height: 5' 10 (177.8 cm) Current Body Weight: 222 lb (100.7 kg) Admission Body Weight: 222 lb (100.7 kg) Usual Body Weight: 190 lb (86.2 kg) (Weight trending up per chart review) [place] Body Weight: 166 lbs; % [place] Body Weight 133.7 % BMI: 31.9 BMI Categories: Obese Class 1 (BMI 30.0-34.9) Nutrition Diagnosis: Inadequate oral intake related to altered GI function,altered GI structure,swallowing difficulty asevidenced by NPO or clear liquid status due to medical condition,poor intake prior to admission,nutrition support - parenteral nutrition Nutrition Interventions: Food and/or Nutrient Delivery: Continue Current Diet,Continue Oral Nutrition Supplement,Continue Current Parenteral Nutrition Nutrition Education/Counseling: No recommendation at this time Coordination of Nutrition Care: Continue to monitor while inpatient Goals: Meet 75-100% of estimated nutrition needs. Nutrition Monitoring and Evaluation: Behavioral-Environmental Outcomes: None Identified Food/Nutrient Intake Outcomes: Diet Advancement/Tolerance,Food and Nutrient Intake,Supplement Intake,Parenteral Nutrition Intake/Tolerance Physical Signs/Symptoms Outcomes: Biochemical Data,Nutrition Focused Physical Findings,Weight,GI Status,Skin,Meal Time Behavior Discharge Planning: Continue current diet,Parenteral Nutrition Contact: [id number] * Darline Shah RD, LD - 07/02/2021 3:20 PM EDT Comprehensive Nutrition Assessment Type and Reason for Visit: Reassess Nutrition Recommendations/Plan: -Continue with current PN-no changes made to next bag. Monitor labs -Encourage/ monitor tolerance of clear liquids Nutrition Assessment: Continues on TPN, clear liquid diet-has been tolerating clears. Discussed with case management-discharge planning in process. No discharge today-PN to be reordered for this evening. Labs reviewed. Malnutrition Assessment: Malnutrition Status: At risk for malnutrition (Comment) Context: Acute Illness (on Chronic) Estimated Daily Nutrient Needs: Energy (kcal): MSJ x 1.05-1-1 = 8878-4832 kcals/day; Weight Used for Energy Requirements: Current Protein (g): 1.2-1.5 gm/kg = 90-115 gm pro/day; Weight Used for Protein Requirements: [place] Fluid (ml/day): 2600 mL/day or per MD; Method Used for Fluid Requirements: Other (Comment) (Evelyne Anand) Nutrition Related Findings: Labs/Meds reviewed. PMH: h/o gastric bypass. Wounds: (chronic wound to umbilicus) Current Nutrition Therapies: ADULT DIET; Clear Liquid; advance as tolerated ADULT ORAL NUTRITION SUPPLEMENT; Breakfast, Lunch, Dinner; Clear Liquid Oral Supplement PN-Adult Premix 5/20 - Standard Electrolytes - Central Line Current Parenteral Nutrition Orders: Type and Formula: Premix Central (400gm dextrose, 100gm AA) Lipids: None Duration: Continuous Rate/Volume: 84ml/hr (2016ml/d) Current PN Order Provides: 1760 kcal, 100gm dextrose Anthropometric Measures: Height: 5' 10 (177.8 cm) Current Body Weight: 222 lb (100.7 kg) Admission Body Weight: 222 lb (100.7 kg) Usual Body Weight: 190 lb (86.2 kg) (Weight trending up per chart review) [place] Body Weight: 166 lbs; % [place] Body Weight 133.7 % BMI: 31.9 BMI Categories: Obese Class 1 (BMI 30.0-34.9) Nutrition Diagnosis: Inadequate oral intake related to altered GI function,altered GI structure,swallowing difficulty asevidenced by NPO or clear liquid status due to medical condition,poor intake prior to admission,nutrition support - parenteral nutrition Nutrition Interventions: Food and/or Nutrient Delivery: Continue Current Diet,Continue Oral Nutrition Supplement,Continue Current Parenteral Nutrition Nutrition Education/Counseling: No recommendation at this time Coordination of Nutrition Care: Continue to monitor while inpatient Goals: Meet 75-100% of estimated nutrition needs. Nutrition Monitoring and Evaluation: Behavioral-Environmental Outcomes: None Identified Food/Nutrient Intake Outcomes: Diet Advancement/Tolerance,Food and Nutrient Intake,Supplement Intake,Parenteral Nutrition Intake/Tolerance Physical Signs/Symptoms Outcomes: Biochemical Data,Nutrition Focused Physical Findings,Weight,GI Status,Skin,Meal Time Behavior Discharge Planning: Continue current diet,Parenteral Nutrition Contact: * Jose Bello DO - 07/02/2021 11:02 AM EDT Images from the original note were not included. [facility] Office: [phone] Peña Billings DO, Ady Shine DO, Houston Cooper DO, Darell Krueger DO, Elena Allison MD, Hannah Rodrigues MD, Murphy Ball MD, Shraddha Hamm MD, Jannette Albert MD, Dinesh Burgess MD, Flor Donnelly MD, Nate Bone DO, Fabricio Mo DO, Rosalio Green MD, Jose Bello DO, MD Ladan, Bia Hamilton MD, Chalo Sams MD, Filiberto Billings DO, Jose Medina MD, Elian Navarro MD, Latonia Chavez CNP, Eliz Esquivel CNP, Suzy Wu, CORK INSULATOR, Blanche Desouza, LOFTER, Edgar Staton, CORK INSULATOR, Suyapa Almaguer, CORK INSULATOR, Cathy Peña, CORK INSULATOR, Loan Greenberg, CORK INSULATOR, Hever Tomlinson, CORK INSULATOR, Niki Badillo PA-C, Arlyn Villegas, DNP, Deneen Stone, DNP, Leandra Rich, CORK INSULATOR, Sapphire Rivera, CORK INSULATOR, Araceli May, CORK INSULATOR, Yuki Orosco, CORK INSULATOR, Felipa Rodrigez, CORK INSULATOR, Sharmin Galdamez, CORK INSULATOR [facility] IN-PATIENT SERVICE [facility] Progress Note 07/02/2021 11:02 AM Name: Sabina Espinoza Acct: [id number] Room: [address] [place] [address] Day: 2 Admit Date: 06/30/2021 1:58 AM PCP: Salvatore Camargo MD Code Status: Full Code Subjective: C/C: Difficulty swallowing Interval History Status: not changed Seeing pt for : TPN Pt says he feels good today just waiting on [facility] acceptance. Needs to be on TPN 48 per [place]. Still on TPN Labs have been stable Brief History: Sabina Espinoza is a 41 y.o. male with a history of RNY in 2010 with revision in 2019 complicated by small bowel obstruction, esophageal stricture requiring repeated dilatation and stent placement who presents to the hospital complaints of nausea and vomiting and food intolerance. Symptoms started shortly after his most recent stent was removed (06/22/21). Patient states that he has had difficulty swallowing foods and feels a globus sensation. He denies any hematemesis, hematochezia. Denies any difficulty breathing. Patient follows with Dr. Neal outpatient. Also follows with Dr. Moyer. Patient denies any fevers, chills or illness. Patient was slightly anxious however denied any other complaints. Blood pressure slightly elevated admission. Labs are only significant for MCV of 73/hemoglobin 10.7. Patient did not have any leukocytosis. Review of Systems: Constitutional: negative for chills, fevers, sweats Respiratory: negative for cough, dyspnea on exertion, shortness of breath, wheezing Cardiovascular: negative for chest pain, chest pressure/discomfort, lower extremity edema, palpitations Gastrointestinal: negative for abdominal pain, constipation, diarrhea, nausea, he says he is doing better with liquids Neurological: negative for dizziness, headache Medications: Allergies: Allergies Allergen Reactions Prochlorperazine Valsartan Current Meds: Scheduled Meds: omeprazole 40 mg Oral BID AC sodium chloride flush 5-40 mL IntraVENous 2 times per day enoxaparin 40 mg SubCUTAneous Daily lidocaine 1 % injection 5 mL IntraDERmal Once sodium chloride flush 5-40 mL IntraVENous 2 times per day pregabalin 150 mg Oral BID DULoxetine 30 mg Oral Daily Continuous Infusions: PN-Adult Premix 09/02 - Standard Electrolytes - Central Line 84 mL/hr at 07/01/21 1825 sodium chloride sodium chloride PRN Meds: sodium chloride flush, sodium chloride, potassium chloride OR potassium alternative oral replacement OR potassium chloride, magnesium sulfate, ondansetron OR ondansetron, polyethylene glycol, acetaminophen OR acetaminophen, sodium chloride flush, sodium chloride Data: Past Medical History: has a past medical history of Anemia, Chronic pain syndrome, Esophageal stricture, Essential hypertension, GERD (gastroesophageal reflux disease), H/O bariatric surgery, H/O small bowel obstruction, Malnutrition (HCC), On total parenteral nutrition (TPN), and Tachycardia. Social History: reports that he has never smoked. He has never used smokeless tobacco. He reports that he does not drink alcohol and does not use drugs. Family History: Family History Problem Relation Age of Onset No Known Problems Mother Hypertension Father Heart Attack Father at the age of 58 from heart attack Coronary Art Dis Father Cancer Maternal Grandfather Unknown Vitals: BP 118/89 Pulse 96 Temp 98.2 F (36.8 C) (Oral) Resp 18 Ht 5' 10 (1.778 m) Wt 222 lb (100.7 kg) SpO2 96% BMI 31.85 kg/m Temp (24hrs), Av.2 F (36.8 C), Min:98.1 F (36.7 C), Max:98.2 F (36.8 C) No results for input(s): POCGLU in the last 72 hours. I/O (24Hr): Intake/Output Summary (Last 24 hours) at 07/02/2021 1102 Last data filed at 07/01/2021 1825 Gross per 24 hour Intake 737.45 ml Output Net 737.45 ml Labs: Hematology: Recent Labs 06/30/21 0728 06/30/21 0847 WBC -- 5.7 RBC -- 5.71 HGB -- 10.7* HCT -- 41.7 MCV -- 73.0* MCH -- 18.7* MCHC -- 25.7* PLT -- See Reflexed IPF Result INR 1.1 -- Chemistry: Recent Labs 06/30/21 0728 07/01/21 0326 NA 140 142 K 4.0 3.9 CL 107 109* CO2 23 22 GLUCOSE 74 105* BUN 8 9 CREATININE 0.49* 0.41* MG 2.2 2.2 ANIONGAP 10 11 LABGLOM >60 >60 GFRAA >60 >60 CALCIUM 8.6 8.6 PHOS 3.4 2.6 Recent Labs 07/01/21 0326 TRIG 74 ABG:No results found for: POCPH, PHART, PH, POCPCO2, KUQ9GAX, PCO2, POCPO2, PO2ART, PO2, POCHCO3, IJQ1KNL, HCO3, NBEA, PBEA, BEART, BE, THGBART, THB, EQJ5DOS, IDEA1LNI, C1YZTQDR, O2SAT, FIO2 Lab Results Component Value Date/Time SPECIAL NOT REPORTED 04/03/2020 11:44 AM Lab Results Component Value Date/Time CULTURE NO GROWTH 04/03/2020 11:44 AM Radiology: [place] [facility]GI Result Date: 06/30/2021 Findings suggestive of stenosis as detailed above without definite appreciation of fistula. Findings were discussed with HAYDER PENG at approximately 3:35 pm on 06/30/2021. Physical Examination: General appearance: alert, cooperative and no distress Mental Status: oriented to person, place and time and normal affect Lungs: clear to auscultation bilaterally, normal effort Heart: regular rate and rhythm, no murmur Abdomen: soft, nontender, nondistended, normal bowel sounds, no masses, hepatomegaly, splenomegaly Extremities: no edema, redness, tenderness in the calves Skin: no gross lesions, rashes, induration Assessment: Hospital Problems Last Modified POA * (Principal) Esophageal stricture 06/30/2021 Yes Severe protein-calorie malnutrition ([place]: less than 60% of standard weight) (HCC) 06/30/2021 Yes Esophageal dysphagia 06/30/2021 Yes Essential hypertension 06/29/2021 Yes History of Lauren-en-Y gastric bypass 06/29/2021 Yes Peptic ulcer disease 06/30/2021 Yes Gastric foreign body 06/30/2021 Yes Complications of gastric bypass surgery 06/30/2021 Yes Chronic gastrojejunal ulcer with obstruction (HCC) 06/30/2021 Yes Obesity (BMI 30-39.9) 06/30/2021 Yes Depression 06/30/2021 Yes Neuropathy 06/30/2021 Yes Gastritis without bleeding 06/30/2021 Yes On total parenteral nutrition (TPN) 07/01/2021 Yes Plan: 1. 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 GI recommend outpatient follow-up with [facility] for revision surgery. They are okay with him being discharged on TPN. Patient is very comfortable TPN due to previously being on it. We did reach out to patient's PCP who will be managing as an outpatient. 2. Marginal ulcer at the gastrojejunal anastomosis: Omeprazole 40 mg twice daily for 8 weeks. Patient will need to open the capsule and dump contents and tablets hospital from swallowing 3. Severe protien calorie malnutrition: TPN on discharge 4. Obesity BMI of 31: Patient has had some significant weight gain over the last year since gettinghealthy. Recommend increase exercise as tolerated 5. Depression: Continue Cymbalta 30 mg daily 6. Neuropathy: check B12/folate, thiamine level. Continue gabapentin and Cymbalta Check labs today for electrolytes Discussed with CM and nursing. D/c order placed 07/01 Jose Bello DO 07/02/2021 11:02 AM * Skyla Edmonds - 07/01/2021 3:54 PM EDT CLINICAL PHARMACY NOTE: MEDS TO BEDS Total # of Prescriptions Filled: 1 The following medications were delivered to the patient: Omeprazole 40mg capsules Additional Documentation: medication delivered to the pt in room 439 on 07.01.21 at 15:37, no co pay. No visitors. * Keshia Don RD, LD - 07/01/2021 3:29 PM EDT Comprehensive Nutrition Assessment Type and Reason for Visit: Reassess Nutrition Recommendations/Plan: - Continue current Clear Liquid diet. Will provide Clear Liquid Ensure oral supplements with meals.Encourage/monitor PO intakes as tolerated. Monitor plans for diet advancement. - RN reports plans for discharge to home with TPN today. - If pt not discharged, suggest continuing TPN and switching to a Premixed bag to run at 84 mL/hr with 400 gm Dextrose and 100 gm AA. No lipids to be provided. Will provide 1760 kcals, 100 gm pro/day. - Will monitor plan of care. Nutrition Assessment: TPN started yesterday - ordered per GI MD. Sp EGD yesterday which revealed marginal ulcer at the gastrojejunal anastomosis. Pt has been started on a Clear Liquid diet. Pt reports he has been tolerating intakes of liquids but reports he does not have an appetite. States he previously had a good appetite and was eating well but lost his appetite last Sunday. Pt reports priorto recent esophageal stent removal on 06/22/21 he had a very good appetite and was eating well. Pt willing to receive clear liquid Ensure supplements but reports he does not like the regular Ensure supplements as they are to thick. States his weight tends to fluctuate up and down some, but previouslyhad gained weight back - reports being 129 lb in April of 2020. RN reports plans for pt to be discharged on TPN - reports discharge for today being worked on. Labs/Meds reviewed. Malnutrition Assessment: Malnutrition Status: At risk for malnutrition Context: Acute Illness (on Chronic) Findings of the 6 clinical characteristics of malnutrition: Energy Intake: 7 - 50% or less of estimated energy requirements for 5 or more days Weight Loss: No significant weight loss - Weight gain - previous h/o weight loss. Body Fat Loss: 1 - Mild body fat loss Orbital Muscle Mass Loss: No significant muscle mass loss Fluid Accumulation: 1 - Mild Extremities Lace Cutter Strength: Not Performed Estimated Daily Nutrient Needs: Energy (kcal): MSJ x 1.05-1-1 = 1286-2005 kcals/day; Weight Used for Energy Requirements: Current Protein (g): 1.2-1.5 gm/kg = 90-115 gm pro/day; Weight Used for Protein Requirements: [place] Fluid (ml/day): 2600 mL/day or per MD; Method Used for Fluid Requirements: Evelyne Anand Nutrition Related Findings: Labs/Meds reviewed. PMH: h/o gastric bypass. Wounds: (chronic wound to umbilicus) Current Nutrition Therapies: PN-Adult 2-in-1 Central Line (Standard) ADULT DIET; Clear Liquid; advance as tolerated ADULT ORAL NUTRITION SUPPLEMENT; Breakfast, Lunch, Dinner; Clear Liquid Oral Supplement Current Parenteral Nutrition Orders: Type and Formula: 2-in-1 Custom (200 gm Dextrose, 100 gm AA) Lipids: None Duration: Continuous Rate/Volume: 74 mL/hr (1776 mL/day) Current PN Order Provides: 1080 kcals, 100 gm protein per day Anthropometric Measures: Height: 5' 10 (177.8 cm) Current Body Weight: 222 lb (100.7 kg) Admission Body Weight: 222 lb (100.7 kg) Usual Body Weight: 190 lb (86.2 kg) (Weight trending up per chart review) [place] Body Weight: 166 lbs; % [place] Body Weight 133.7 % BMI: 31.9 BMI Categories: Obese Class 1 (BMI 30.0-34.9) Nutrition Diagnosis: Inadequate oral intake related to altered GI function,altered GI structure,swallowing difficulty asevidenced by NPO or clear liquid status due to medical condition,poor intake prior to admission,nutrition support - parenteral nutrition Nutrition Interventions: Food and/or Nutrient Delivery: Continue Current Diet,Start Oral Nutrition Supplement,Continue Current Parenteral Nutrition (Provide Ensure Clear Liquid oral supplements with meals.) Nutrition Education/Counseling: No recommendation at this time Coordination of Nutrition Care: Continue to monitor while inpatient Goals: Meet 75-100% of estimated nutrition needs. Nutrition Monitoring and Evaluation: Behavioral-Environmental Outcomes: None Identified Food/Nutrient Intake Outcomes: Diet Advancement/Tolerance,Food and Nutrient Intake,Supplement Intake,Parenteral Nutrition Intake/Tolerance Physical Signs/Symptoms Outcomes: Biochemical Data,Chewing or Swallowing,GI Status,Hemodynamic Status,Fluid Status or Edema,Weight,Skin Discharge Planning: Continue current diet,Parenteral Nutrition Contact: [phone] * Jose Bello DO - 07/01/2021 2:27 PM EDT Images from the original note were not included. [facility] Office: [phone] Peña Billings DO, Ady Shine DO, Houston Cooper DO, Darell Krueger DO, Elena Allison MD, Hannah Rodrigues MD, Murphy Ball MD, Shraddha Hamm MD, Jannette Albert MD, Dinesh Burgess MD, Flor Donnelly MD, Nate Bone DO, Fabricio Mo DO, Rosalio Green MD, Jose Bello DO, MD Ladan, Bia Hamilton MD, Chalo Sams MD, Filiberto Billings DO, Jose Medina MD, Elian Navarro MD, Latonia Chavez, CORK INSULATOR, Eliz Esquivel, CORK INSULATOR, Suzy Wu, CORK INSULATOR, Blanche Desouza, LOFTER, Edgar Staton, CORK INSULATOR, Suyapa Almaguer, CORK INSULATOR, Cathy Peña, CORK INSULATOR, Loan Greenberg, CORK INSULATOR, Hever Tomlinson, CORK INSULATOR, Niki Badillo PA-C, Arlyn Villegas, DNP, Deneen Stone, DNP, Leandra Rich, CORK INSULATOR, Sapphire Rivera, CORK INSULATOR, Araceli May, CORK INSULATOR, Yuki Orosco, CORK INSULATOR, Felipa Rodrigez, CORK INSULATOR, Sharmin Galdamez, CORK INSULATOR [facility] IN-PATIENT SERVICE [facility] Progress Note 07/01/2021 2:27 PM Name: Sabina Espinoza Acct: [id number] Room: 0439/0439-01 Day: 1 Admit Date: 06/30/2021 1:58 AM PCP: Salvatore Camargo MD Code Status: Full Code Subjective: C/C: No chief complaint on file. Interval History Status: improved. Pt says he feels much better today. He is tolerating his diet without any nausea or vomiting. UpperGI yesterday showed focal narrowing at the bypass junction with resultant dilatation of the esophagus suggesting stenosis. Patient started on TPN Labs have been stable Brief History: Sabina Espinoza is a 41 y.o. male with a history of RNY in 2010 with revision in 2019 complicated by small bowel obstruction, esophageal stricture requiring repeated dilatation and stent placement who presents to the hospital complaints of nausea and vomiting and food intolerance. Symptoms started shortly after his most recent stent was removed (06/22/21). Patient states that he has had difficulty swallowing foods and feels a globus sensation. He denies any hematemesis, hematochezia. Denies any difficulty breathing. Patient follows with Dr. Neal outpatient. Also follows with Dr. Moyer. Patient denies any fevers, chills or illness. Patient was slightly anxious however denied any other complaints. Blood pressure slightly elevated admission. Labs are only significant for MCV of 73/hemoglobin 10.7. Patient did not have any leukocytosis. Review of Systems: Constitutional: negative for chills, fevers, sweats Respiratory: negative for cough, dyspnea on exertion, shortness of breath, wheezing Cardiovascular: negative for chest pain, chest pressure/discomfort, lower extremity edema, palpitations Gastrointestinal: negative for abdominal pain, constipation, diarrhea, nausea, he says he is doing better with liquids Neurological: negative for dizziness, headache Medications: Allergies: Allergies Allergen Reactions Prochlorperazine Valsartan Current Meds: Scheduled Meds: [START ON 07/02/2021] omeprazole 40 mg Oral BID AC sodium chloride flush 5-40 mL IntraVENous 2 times per day enoxaparin 40 mg SubCUTAneous Daily lidocaine 1 % injection 5 mL IntraDERmal Once sodium chloride flush 5-40 mL IntraVENous 2 times per day pregabalin 150 mg Oral BID DULoxetine 30 mg Oral Daily Continuous Infusions: sodium chloride sodium chloride PN-Adult 2-in-1 Central Line (Standard) 74 mL/hr at 07/01/21 0749 PRN Meds: sodium chloride flush, sodium chloride, potassium chloride OR potassium alternative oral replacement OR potassium chloride, magnesium sulfate, ondansetron OR ondansetron, polyethylene glycol, acetaminophen OR acetaminophen, sodium chloride flush, sodium chloride Data: Past Medical History: has a past medical history of Anemia, Chronic pain syndrome, Esophageal stricture, Essential hypertension, GERD (gastroesophageal reflux disease), H/O bariatric surgery, H/O small bowel obstruction, Malnutrition (HCC), On total parenteral nutrition (TPN), and Tachycardia. Social History: reports that he has never smoked. He has never used smokeless tobacco. He reports that he does not drink alcohol and does not use drugs. Family History: Family History Problem Relation Age of Onset No Known Problems Mother Hypertension Father Heart Attack Father at the age of 58 from heart attack Coronary Art Dis Father Cancer Maternal Grandfather Unknown Vitals: BP (!) 154/94 Pulse 112 Temp 97 F (36.1 C) (Oral) Resp 18 Ht 5' 10 (1.778 m) Wt 222 lb (100.7 kg) SpO2 98% BMI 31.85 kg/m Temp (24hrs), Av.8 F (36.6 C), Min:97 F (36.1 C), Max:98.2 F (36.8 C) No results for input(s): POCGLU in the last 72 hours. I/O (24Hr): Intake/Output Summary (Last 24 hours) at 07/01/2021 1427 Last data filed at 07/01/2021 0749 Gross per 24 hour Intake 989.43 ml Output Net 989.43 ml Labs: Hematology: Recent Labs 06/30/21 0728 06/30/21 0847 WBC -- 5.7 RBC -- 5.71 HGB -- 10.7* HCT -- 41.7 MCV -- 73.0* MCH -- 18.7* MCHC -- 25.7* PLT -- See Reflexed IPF Result INR 1.1 -- Chemistry: Recent Labs 06/30/21 0728 07/01/21 0326 NA 140 142 K 4.0 3.9 CL 107 109* CO2 23 22 GLUCOSE 74 105* BUN 8 9 CREATININE 0.49* 0.41* MG 2.2 2.2 ANIONGAP 10 11 LABGLOM >60 >60 GFRAA >60 >60 CALCIUM 8.6 8.6 PHOS 3.4 2.6 Recent Labs 07/01/21 0326 TRIG 74 ABG:No results found for: POCPH, PHART, PH, POCPCO2, EAH4NVU, PCO2, POCPO2, PO2ART, PO2, POCHCO3, EUY1MAX, HCO3, NBEA, PBEA, BEART, BE, THGBART, THB, MPA9VQQ, AXOA6HSO, P3VAGXRR, O2SAT, FIO2 Lab Results Component Value Date/Time SPECIAL NOT REPORTED 04/03/2020 11:44 AM Lab Results Component Value Date/Time CULTURE NO GROWTH 04/03/2020 11:44 AM Radiology: [place] UGI Result Date: 06/30/2021 Findings suggestive of stenosis as detailed above without definite appreciation of fistula. Findings were discussed with HAYDER PENG at approximately 3:35 pm on 06/30/2021. Physical Examination: General appearance: alert, cooperative and no distress Mental Status: oriented to person, place and time and normal affect Lungs: clear to auscultation bilaterally, normal effort Heart: regular rate and rhythm, no murmur Abdomen: soft, nontender, nondistended, normal bowel sounds, no masses, hepatomegaly, splenomegaly Extremities: no edema, redness, tenderness in the calves Skin: no gross lesions, rashes, induration Assessment: Hospital Problems Last Modified POA * (Principal) Esophageal stricture 06/30/2021 Yes Severe protein-calorie malnutrition ([place]: less than 60% of standard weight) (HCC) 06/30/2021 Yes Esophageal dysphagia 06/30/2021 Yes Essential hypertension 06/29/2021 Yes History of Lauren-en-Y gastric bypass 06/29/2021 Yes Peptic ulcer disease 06/30/2021 Yes Gastric foreign body 06/30/2021 Yes Complications of gastric bypass surgery 06/30/2021 Yes Chronic gastrojejunal ulcer with obstruction (HCC) 06/30/2021 Yes Obesity (BMI 30-39.9) 06/30/2021 Yes Depression 06/30/2021 Yes Neuropathy 06/30/2021 Yes Gastritis without bleeding 06/30/2021 Yes On total parenteral nutrition (TPN) 07/01/2021 Yes Plan: 1. 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 Spoke with GI, they recommend outpatient follow-up with [facility] for revision surgery. They are okay with him being discharged on TPN. Patient is very comfortable TPN due to previously being on it. We did reach out to patient's PCP who will be managing as an outpatient. 2. Marginal ulcer at the gastrojejunal anastomosis: Omeprazole 40 mg twice daily for 8 weeks. Patient will need to open the capsule and dump contents and tablets hospital from swallowing 3. Severe protien calorie malnutrition: TPN on discharge 4. Obesity BMI of 31: Patient has had some significant weight gain over the last year since gettinghealthy. Recommend increase exercise as tolerated 5. Depression: Continue Cymbalta 30 mg daily 6. Neuropathy: check B12/folate, thiamine level. Continue gabapentin and Cymbalta 7. DVT ppx 8. PTOT as tolerated 9. Discussed with GI Jose Bello DO 07/01/2021 2:27 PM * Gisselle Hughes PT - 07/01/2021 12:11 PM EDT Images from the original note were not included. Physical Therapy Physical Therapy Cancel Note DATE: 07/01/2021 NAME: Sabina Espinoza : 1980 Patient not seen this date for Physical Therapy due to: Patient at baseline functional level with no acute PT needs. Will defer PT evaluation at this time.Please reorder PT if future needs arise. * Hayder Peng MD - 07/01/2021 11:28 AM EDT GASTROENTEROLOGY PROGRESS NOTE 07/01/2021 SUBJECTIVE: Patient feels well. Denies any nausea or vomiting. Was able to tolerate clear liquids overnight. A PICC line was placed yesterday and TPN was started overnight. Patient states that he has done TPN inthe past for several months and is well aware of managing this. Denies any abdominal pain fever chills. Is requesting discharge home to continue TPN at home. I have reached out to [facility] bariatric clinic and waiting with her call to discuss patient's status and possible referral as outpatient. The patient's phone number was given to the bariatric clinic. REVIEW OF SYSTEMS: A 12 system review was performed and pertinent positives and negatives are documented in the HPI, rest were otherwise negative. PHYSICAL EXAM: BP (!) 154/94 Pulse 112 Temp 97 F (36.1 C) (Oral) Resp 18 Ht 5' 10 (1.778 m) Wt 222 lb (100.7 kg) SpO2 98% BMI 31.85 kg/m General appearance: Alert, No acute distress Lungs: Clear bilaterally, nonlabored breathing without use of accessory muscles. Heart:S1S2 - regular rhythm Abdomen: Soft, ND +BS, no masses, tender to palpation in epigastric region Skin: No jaundice, no stigmata of chronic liver disease. Neuro: Awake, alert, follows requests. PERRLA.No focal deficits. Lab and Imaging Review Data Review: Labs and Imaging: CBC: Recent Labs 06/30/21 0847 WBC 5.7 HGB 10.7* MCV 73.0* PLT See Reflexed IPF Result ANEMIA STUDIES: Recent Labs 06/30/21 1839 LABIRON 8* TIBC 340 FERRITIN 20* [id number] 505 FOLATE 16.1 BMP: Recent Labs 06/30/21 0728 07/01/21 0326 NA 140 142 K 4.0 3.9 CL 107 109* CO2 23 22 BUN 8 9 CREATININE 0.49* 0.41* GLUCOSE 74 105* CALCIUM 8.6 8.6 LFTS: No results for input(s): ALKPHOS, ALT, AST, BILITOT, BILIDIR, LABALBU in the last 72 hours. Amylase/Lipase and Ammonia: No results for input(s): AMYLASE, LIPASE, AMMONIA in the last 72 hours. Acute Hepatitis Panel: No results found for: HEPBSAG, HEPCAB, HEPBIGM, HEPAIGM HCV Genotype: No results found for: HEPATITISCGENOTYPE HCV Quantitative: No results found for: HCVQNT LIVER WORK UP: AFP No results found for: AFP Alpha 1 antitrypsin No results found for: A1A Anti - Liver/Kidney Ab No results found for: LIVER-KIDNEYMICROSOMALAB LEODAN No results found for: LEODAN AMA No results found for: MITOAB ASMA No results found for: SMOOTHMUSCAB Ceruloplasmin No results found for: CERULOPLSM Celiac panel No results found for: TISSTRNTIIGG, TTGIGA, IGA PT/INR Recent Labs 06/30/21 0728 PROTIME 11.2 INR 1.1 Cancer Markers: CEA: No results for input(s): CEA in the last 72 hours. Ca 125: No results for input(s): CA125 in the last 72 hours. Ca 19-9: Invalid input(s): CA19-9 AFP: No results for input(s): AFP in the last 72 hours. Lactic acid:Invalid input(s): LACTIC ACID Radiology Review: No results found. IMPRESSION: 1. 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 2. Marginal ulcer at the gastrojejunal anastomosis. 3. Esophageal dilation due to #1 RECOMMENDATIONS: 1. Continue omeprazole 40 mg twice daily for 8 weeks. Patient was instructed to open capsule and dump contents on applesauce before swallowing. 2. Continue clear liquid diet. 3. Continue home TPN for the next 2 to 3 months to improve nutritional status. 4. Patient will need a revision surgery to relieve GJ stenosis. Recommended to follow-up in [facility] bariatric center for evaluation of revision surgery. 5. Okay to discharge from GI standpoint. reimbursement manager to arrange home nursing and home TPN management. * Alla Olguin, OT - 07/01/2021 9:49 AM EDT Occupational Therapy Occupational Therapy Initial Assessment Date: 07/01/2021 Patient Name: Sabina Espinoza : 1980 Date of Service: 07/01/2021 No chief complaint on file. Discharge Recommendations: No therapy recommended at discharge. Assessment Assessment: Patient is completing ADLs and functional tasks at baseline level per pt report. OT to defer further treatment at this time with no acute needs identified. Please reconsult if functional deficits arise. Prognosis: Good Decision Making: Low Complexity Patient Education: OT role, OT POC, purpose of evaluation, hand placement for transfers, activity promotion - good return REQUIRES OT FOLLOW UP: No Activity Tolerance Activity Tolerance: Patient Tolerated treatment well Safety Devices Safety Devices in place: Yes Type of devices: Gait belt;Call light within reach;Nurse notified;Left in bed Restraints Initially in place: No Patient Diagnosis(es): There were no encounter diagnoses. has a past medical history of Anemia, Chronic pain syndrome, Esophageal stricture, Essential hypertension, GERD (gastroesophageal reflux disease), H/O bariatric surgery, H/O small bowel obstruction, Malnutrition (HCC), On total parenteral nutrition (TPN), and Tachycardia. has a past surgical history that includes Dilatation, esophagus; Cholecystectomy; Gastric bypass surgery; knee surgery (Right); Uvulopalatopharygoplasty; Tonsillectomy; laparotomy (01/29/2020); laparoscopy (N/A, 03/30/2020); Abdominal exploration surgery (04/03/2020); laparotomy (N/A, 04/03/2020); picc powerpicc double (04/05/2020); Upper gastrointestinal endoscopy (N/A, 05/27/2020); Upper gastrointestinal endoscopy (N/A, 06/24/2020); Upper gastrointestinal endoscopy (07/08/2020); Upper gastrointestinal endoscopy (N/A, 07/22/2020); Upper gastrointestinal endoscopy (08/05/2020); Upper gastro intestinal endoscopy (N/A, 09/02/2020); Upper gastrointestinal endoscopy (N/A, 09/16/2020); Upper gastrointestinal endoscopy (N/A, 09/30/2020); Upper gastrointestinal endoscopy (09/30/2020); Upper gastrointestinal endoscopy (N/A, 10/28/2020); Upper gastrointestinal endoscopy (11/25/2020); Upper leatha rointestinal endoscopy (N/A, 02/03/2021); Upper gastrointestinal endoscopy (N/A, 02/17/2021); othersurgical history (05/2021); Upper gastrointestinal endoscopy (06/22/2021); hc picc powerpicc double (06/30/2021); and Upper gastrointestinal endoscopy (N/A, 06/30/2021). Restrictions Position Activity Restriction Other position/activity restrictions: up with assistance Subjective General Patient assessed for rehabilitation services?: Yes Family / Caregiver Present: No General Comment Comments: RN ok'd patient for OT evaluation. Pt pleasant, cooperative and participatort throughout. Patient Currently in Pain: Yes Pain Assessment Pain Level: 7 Pain Type: Chronic pain Pain Location: Foot Pain Orientation: Right;Left Non-Pharmaceutical Pain Intervention(s): Distraction;Ambulation/Increased Activity;Therapeutic presence Response to Pain Intervention: Patient Satisfied Vital Signs Pulse: 112 Heart Rate Source: Monitor Resp: 18 BP: (!) 154/94 BP Location: Right lower arm Patient Position: Semi fowlers Patient Currently in Pain: Yes Oxygen Therapy SpO2: 98 % Social/Functional History Social/Functional History Lives With: Family Type of Home: Trailer Home Layout: One level Home Access: Ramped entrance Bathroom Shower/Tub: Tub/Shower unit Bathroom Toilet: Standard Home Equipment: (rollator,does not use at baseline) ADL Assistance: Independent Homemaking Assistance: Independent Homemaking Responsibilities: Yes Meal Prep Responsibility: Primary Laundry Responsibility: Primary Cleaning Responsibility: Primary Shopping Responsibility: Primary Ambulation Assistance: Independent Transfer Assistance: Independent Active Steam Powerplant Supervisor: No Patient's Steam Powerplant Supervisor Info: Parents drive Occupation: Unemployed Leisure & Hobbies: daughter, setting up light displays for holidays Objective Vision: Impaired Vision Exceptions: Wears glasses for distance Hearing: Within functional limits Balance Sitting Balance: Independent Standing Balance: Independent Standing Balance Time: 3-4 min Activity: sinkside, EOB Functional Mobility Functional - Mobility Device: Rolling Walker Activity: To/from bathroom Assist Level: Modified independent Functional Mobility Comments: walked to/from bathroom without and with RW; Mod I ADL Feeding: Independent Grooming: Independent UE Bathing: Independent LE Bathing: Independent UE Dressing: Independent LE Dressing: Independent Toileting: Independent Additional Comments: Patient completed donning socks sitting EOB independently. Pt changed gown sitting EOB independently. Pt completed grooming tasks standing sinkside independently Tone RUE RUE Tone: Normotonic Tone LUE LUE Tone: Normotonic Coordination Movements Are Fluid And Coordinated: Yes Bed mobility Supine to Sit: Modified independent Sit to Supine: Independent Scooting: Independent Transfers Sit to stand: Modified independent Stand to sit: Independent Sensation Overall Sensation Status: Impaired (reports neuropathy in B feet) LUE AROM : WFL Left Hand AROM: WFL RUE AROM : WFL Right Hand AROM: WFL LUE Strength Gross LUE Strength: WFL L Hand General: 4+/5 RUE Strength Gross RUE Strength: WFL R Hand General: 4+/5 Plan AM-PAC Score AM-PAC Inpatient Daily Activity Raw Score: 24 (07/01/21 0950) AM-PAC Inpatient ADL T-Scale Score : 57.54 (07/01/21 0950) ADL Inpatient CMS 0-100% Score: 0 (07/01/21 0950) ADL Inpatient CMS G-Code Modifier : CH (07/01/2150) Goals Therapy Time Individual Concurrent Group Co-treatment Time In 0847 Time Out 0908 Minutes 21 Timed Code Treatment Minutes: 15 Minutes Alla Olguin OTR/L * Carolina Espinoza RN - 06/30/2021 4:13 PM EDT Pt returned to unit. * Keshia Don RD, LD - 06/30/2021 3:36 PM EDT Comprehensive Nutrition Assessment Type and Reason for Visit: Initial,Positive Nutrition Screen (Weight Loss; Poor Intakes/Appetite) Nutrition Recommendations/Plan: - Continue NPO. Monitor for start of oral diet per swallow study results. - Start TPN per GI - continue current order to run at 75 mL/hr with 200 gm Dextrose and 100 gm AA along with 250 mL IV lipids twice weekly (per shortage). Will provide an average of 1223 kcals, 100 gm pro/day. Monitor labs and modify TPN as needed. - Will monitor weights and plan of care. Nutrition Assessment: Admitted with nausea/vomiting, food intolerance, and difficulty swallowing with feeling of food being stuck. PMH includes: RNY in 2010 and revision in 2019; esophageal stricturerequiring repeated dilatation and stent placement; HTN, GERD. Pt off unit for EGD at attempted visit. Pharmacist called RD about new TPN order for pt. Spoke with RN who report pt having PICC placed and having a Barium Swallow Study completed. TPN ordered per GI - discussed with Pharmacist about TPNorder. Will monitor for start of oral diet. Noted stent removed on 06/22/21 and per chart, pt reportshaving difficulties with tolerating PO/swallowing since then. Weight reviewed per chart - weight gain noted. Labs/Meds reviewed. Malnutrition Assessment: Malnutrition Status: Insufficient data Context: Acute Illness (on Chronic) Findings of the 6 clinical characteristics of malnutrition: Energy Intake: 7 - 50% or less of estimated energy requirements for 5 or more days Weight Loss: No significant weight loss - weight gain noted per chart review Body Fat Loss: Unable to assess Muscle Mass Loss: Unable to assess Fluid Accumulation: No significant fluid accumulation Lace Cutter Strength: Not Performed Estimated Daily Nutrient Needs: Energy (kcal): MSJ x .05-1- = 0553-7022 kcals/day; Weight Used for Energy Requirements: Current Protein (g): 1.2-1.5 gm/kg = 90-115 gm pro/day; Weight Used for Protein Requirements: [place] Fluid (ml/day): 2600 mL/day or per MD; Method Used for Fluid Requirements: Evelyne Anand Nutrition Related Findings: Labs/Meds reviewed. Wounds: (chronic wound to umbilicus) Current Nutrition Therapies: Diet NPO PN-Adult 2-in-1 Central Line (Standard) Anthropometric Measures: Height: 5' 10 (177.8 cm) Current Body Weight: 222 lb (100.7 kg) Admission Body Weight: 222 lb (100.7 kg) Usual Body Weight: 190 lb (86.2 kg) (Weight trending up per chart review) [place] Body Weight: 166 lbs; % [place] Body Weight 133.7 % BMI: 31.9 BMI Categories: Obese Class 1 (BMI 30.0-34.9) Nutrition Diagnosis: Inadequate oral intake related to altered GI function,altered GI structure,swallowing difficulty asevidenced by NPO or clear liquid status due to medical condition,poor intake prior to admission (need for parenteral nutrition support; h/o decreased PO intakes) Nutrition Interventions: Food and/or Nutrient Delivery: Continue NPO,Start Parenteral Nutrition (Monitor for start of oral diet.) Nutrition Education/Counseling: No recommendation at this time Coordination of Nutrition Care: Continue to monitor while inpatient Goals: Meet 75-100% of estimated nutrition needs. Nutrition Monitoring and Evaluation: Behavioral-Environmental Outcomes: None Identified Food/Nutrient Intake Outcomes: Diet Advancement/Tolerance,Parenteral Nutrition Intake/Tolerance Physical Signs/Symptoms Outcomes: Biochemical Data,Chewing or Swallowing,GI Status,Fluid Status or Edema,Hemodynamic Status,Nutrition Focused Physical Findings,Skin,Weight Discharge Planning: Too soon to determine Contact: [phone] * Gloria Delong RN - 06/30/2021 2:56 PM EDT Patient to x-ray as ordered on stretcher with RN content writer. * Ludy Kennedy RN - 06/30/2021 2:27 PM EDT PICC team at bedside for picc line insertion. * Ludy Kennedy RN - 06/30/2021 2:00 PM EDT Report received from Veronica Matos. * Veronica White RN - 06/30/2021 1:31 PM EDT 1327 returned post procedure skin warm color pink abdomen softly distended remains on monitors * Carolina Espinoza RN - 06/30/2021 12:02 PM EDT Pt to EGD via stretcher. documented in this [facility] [employer] Phone: 1(951) 242-378403-21-2022 Hospital Discharge instructions* Discharge Instr - Diet* Meryl Person RN - 07/04/2021 10:04 AM EDT Good nutrition is important when healing from an illness, injury, or surgery. Follow any nutrition recommendations given to you during your hospital stay. If you were given an oral nutrition supplement while in the hospital, continue to take this supplement at home. You can take it with meals, in-between meals, and/or before bedtime. These supplements can be purchased at most local grocery stores, pharmacies, and chain [employer]-stores. If you have any questions about your diet or nutrition, call the hospital and ask for the dietitian. * Discharge Instr - JANEEN* Meryl Person RN - 07/01/2021 2:02 PM EDT Continuity of Care Form Patient Name: Sabina Espinoza : 1980 Admit date: 06/30/2021 Discharge date: 07/04/2021 Code Status Order: Full Code Advance Directives: Admitting Physician: Jose Bello DO PCP: Salvatore Camargo MD Discharging Nurse: Carolina Espinoza RN Discharging Hospital Unit/Room#: 0439/0439-01 Discharging Unit Emergency Contact: Extended Emergency Contact Information Primary Emergency Contact: nagi villanueva Mobile Relation: Parent Preferred language: Mexican Lathe Mechanic needed? No Past Surgical History: Past Surgical History: Procedure Laterality Date ABDOMINAL EXPLORATION SURGERY 04/03/2020 Laparotomy exploratory, egd, prevena wound vac push endoscopy, lysis of adhessions CHOLECYSTECTOMY 2010 DILATATION, ESOPHAGUS GASTRIC BYPASS SURGERY 2010 PICC POWERPICC DOUBLE 04/05/2020 PICC POWERPICC DOUBLE 06/30/2021 KNEE SURGERY Right Multiple knee surgeries LAPAROSCOPY N/A 03/30/2020 DIAGNOSTIC LAPAROSCOPY, LAPAROTOMY LYSIS OF ADHESIONS performed by Daniel Moyer DO at [facility] OR LAPAROTOMY 01/29/2020 DIAGNOSTIC LAPAROSCOPY, LAPAROTOMY LYSIS OF ADHESIONS LAPAROTOMY N/A 04/03/2020 LAPAROTOMY EXPLORATORY, EGD, PREVENA WOUND VAC, PUSH ENDOSCOPY, LYSIS OF ADHESIONS performed by Daniel Moyer DO at [facility] OR OTHER SURGICAL HISTORY 05/2021 boil on abdomen lanced- in the ER [facility] TONSILLECTOMY UPPER GASTROINTESTINAL ENDOSCOPY N/A 05/27/2020 EGD DILATION BALLOON performed by Lalo Lambert MD at [facility] Endoscopy UPPER GASTROINTESTINAL ENDOSCOPY N/A 06/24/2020 EGD DILATION BALLOON performed by Lalo Lambert MD at [facility] Endoscopy UPPER GASTROINTESTINAL ENDOSCOPY 07/08/2020 EGD ESOPHAGOGASTRODUODENOSCOPY DILATATION performed by Lalo Lambert MD at [facility] Endoscopy UPPER GASTROINTESTINAL ENDOSCOPY N/A 07/22/2020 EGD DILATION BALLOON performed by Lalo Lambert MD at [facility] Endoscopy UPPER GASTROINTESTINAL ENDOSCOPY 08/05/2020 EGD DILATION BALLOON performed by Lalo Lambert MD at [facility] Endoscopy UPPER GASTROINTESTINAL ENDOSCOPY N/A 09/02/2020 EGD DILATION BALLOON 12-15MM performed by Lalo Lambert MD at [facility] Endoscopy UPPER GASTROINTESTINAL ENDOSCOPY N/A 09/16/2020 EGD ESOPHAGOGASTRODUODENOSCOPY DILATATION performed by Lalo Lambert MD at [facility] Endoscopy UPPER GASTROINTESTINAL ENDOSCOPY N/A 09/30/2020 EGD STENT PLACEMENT AXIOSSTENT [id number] TO G-J JUNCTION performed by Lalo Lambert MD at [facility] Endoscopy UPPER GASTROINTESTINAL ENDOSCOPY 09/30/2020 EGD DILATION BALLOON 12-15MM performed by Lalo Lambert MD at [facility] Endoscopy UPPER GASTROINTESTINAL ENDOSCOPY N/A 10/28/2020 EGD STENT REMOVAL performed by Lalo Lambert MD at [facility] Endoscopy UPPER GASTROINTESTINAL ENDOSCOPY 11/25/2020 EGD STENT PLACEMENT performed by Lalo Lambert MD at [facility] Endoscopy UPPER GASTROINTESTINAL ENDOSCOPY N/A 02/03/2021 EGD STENT REMOVAL performed by Lalo Lambert MD at [facility] Endoscopy UPPER GASTROINTESTINAL ENDOSCOPY N/A 02/17/2021 EGD STENT PLACEMENT performed by Lalo Lambert MD at [facility] Endoscopy UPPER GASTROINTESTINAL ENDOSCOPY 06/22/2021 EGD STENT REMOVAL performed by Lalo Lambert MD at [facility] Endoscopy UPPER GASTROINTESTINAL ENDOSCOPY N/A 06/30/2021 EGD FOREIGN BODY REMOVAL performed by Hayder Peng MD at [facility] Endoscopy UVULOPALATOPHARYGOPLASTY Immunization History: Immunization History Administered Date(s) Administered COVID-19, Pfizer Purple top, DILUTE for use, 12+ yrs, 30mcg/0.3mL dose 07/24/2020, 08/14/2020, 03/09/2021 Influenza, Quadv, IM, PF (6 mo and older Fluzone, Flulaval, Fluarix, and 3 yrs and older Afluria) 04/08/2020 Active Problems: Patient Active Problem List Diagnosis Code SBO (small bowel obstruction) ([facility]) K56.609 Severe protein-calorie malnutrition ([place]: less than 60% of standard weight) ([facility]) E43 Esophageal dysphagia R13.19 Essential hypertension I10 Bowel obstruction ([facility]) K56.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 Acute hypokalemia E87.6 Anemia, normocytic normochromic D64.9 Hyponatremia E87.1 Transaminasemia R74.01 Fatty liver K76.0 BMI less than 19,adult Z68.1 Hypocalcemia E83.51 Hypoglycemia E16.2 Esophageal stricture K22.2 Peptic ulcer disease K27.9 Gastric foreign body T18.2XXA Complications of gastric bypass surgery K91.89, Y83.2 Chronic gastrojejunal ulcer with obstruction (HCC) K28.7, K56.609 Obesity (BMI 30-39.9) E66.9 Depression F32.A Neuropathy G62.9 Gastritis without bleeding K29.70 On total parenteral nutrition (TPN) Z78.9 Isolation/Infection: Isolation No Isolation Patient Infection Status Infection Onset Added Last Indicated Last Indicated By Review Planned Expiration Resolved Resolved By None active Resolved COVID-19 (Rule Out) 08/30/20 08/30/20 08/30/20 COVID-19 (Ordered) 08/31/20 Rule- Out Test Resulted COVID-19 (Rule Out) 08/16/20 08/16/20 08/16/20 COVID-19 (Ordered) 08/17/20 Rule- Out Test Resulted COVID-19 (Rule Out) 08/02/20 08/02/20 08/02/20 COVID-19 (Ordered) 08/03/20 Rule- Out Test Resulted COVID-19 (Rule Out) 07/19/20 07/19/20 07/19/20 COVID-19 (Ordered) 07/20/20 Rule- Out Test Resulted COVID-19 (Rule Out) 07/05/20 07/05/20 07/05/20 COVID-19 (Ordered) 07/06/20 Rule- Out Test Resulted COVID-19 (Rule Out) 06/18/20 06/18/20 06/18/20 COVID-19 (Ordered) 06/19/20 Rule- Out Test Resulted Nurse Assessment: Last Vital Signs: BP (!) 124/91 Pulse 98 Temp 97.7 F (36.5 C) (Oral) Resp 16 Ht 5' 10 (1.778 m) Wt 222 lb (100.7 kg) SpO2 99% BMI 31.85 kg/m Last documented pain score (0-10 scale): Pain Level: 0 Last Weight: Wt Readings from Last 1 Encounters: 06/30/21 222 lb (100.7 kg) Mental Status: oriented and alert IV Access: - PICC - site R Basilic, insertion date: 06/30/2021 Nursing Mobility/ADLs: Walking Independent Transfer Independent Bathing {CHP DME ADLs:[id number]} Dressing Independent Toileting Independent Feeding Independent Heel Blacker Independent Med Delivery whole Wound Care Documentation and Therapy: Wound 06/30/21 Abdomen Other (Comment) (Active) Dressing Status Clean;Dry;Intact 07/03/21 2100 Dressing/Treatment Dry dressing 07/03/21 0934 Wound Assessment Other (Comment) 07/03/21 2100 Drainage Amount Small 07/02/21 0825 Drainage Description Green 07/02/21 0825 Odor None 07/02/21 0825 Pily-wound Assessment Intact 07/02/21 0825 Number of days: 3 Elimination: Continence: Bowel: Yes Bladder: Yes Urinary Catheter: None Colostomy/Ileostomy/Ileal Conduit: No Date of Last BM: 07/04/2021 Intake/Output Summary (Last 24 hours) at 07/04/2021 1004 Last data filed at 07/04/2021 0617 Gross per 24 hour Intake 2245.41 ml Output -- Net 2245.41 ml I/O last 3 completed shifts: In: 3226.8 [P.O.:240] Out: - Safety Concerns: Aspiration Risk Impairments/Disabilities: None Nutrition Therapy: Current Nutrition Therapy: Clear liquid advance as tolerated Routes of Feeding: Oral and Parenteral Nutrition (PN) Liquids: No Restrictions Daily Fluid Restriction: no Last Modified Barium Swallow with Video (Video Swallowing Test): done on 06/30/2021 Treatments at the Time of Hospital Discharge: Respiratory Treatments: NA Oxygen Therapy: is not on home oxygen therapy. Ventilator: - No ventilator support Rehab Therapies: NA Weight Bearing Status/Restrictions: No weight bearing restrictions Other Medical Equipment (for information only, NOT a DME order): NA Other Treatments: daily dressing changeon draining wound below unmbilicus Patient's personal belongings (please select all that are sent with patient): None RN SIGNATURE: CASE MANAGEMENT/SOCIAL WORK SECTION Inpatient Status Date: 06/30/21 Readmission Risk Assessment Score: Readmission Risk Risk of Unplanned Readmission: 10 Discharging to Facility/ Agency [facility] specialty infusion Details FAX 0009 [facility] [address] [facility] [address] [place] [address], [address] [address] Dialysis Facility (if applicable) Name: Address: Dialysis Schedule: Phone: Fax: Hot Molder/Yeast Maker signature: PHYSICIAN SECTION Prognosis: Fair Condition at Discharge: Stable Rehab Potential (if transferring to Rehab): Fair Recommended Labs or Other Treatments After Discharge: -Follow-up with your primary care physician for continued management of your TPN. PCP/[facility] will manage your TPN and dosing. Labs to be sent to PCP Salvatore Camargo MD -Follow-up with [facility]. 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 -Please provide an average of 1223 kcals, 100 gm pro/day. Monitor labs and modify TPN as needed. - Will monitor weights and plan of care. Physician Certification: I certify the above information and transfer of Sabina Espinoza is necessary for the continuing treatment of the diagnosis listed and that he requires Home Care for greater 30 days. Update Admission H&P: No change in H&P PHYSICIAN SIGNATURE: * Additional Instructions* Jose Bello DO - 07/01/2021 -Follow-up with your primary care physician for continued management of your TPN. PCP/[facility] will manage your TPN and dosing -Follow-up with [facility]. She department for possible revision of Lauren-en-Y given stenosis -Avoid solid foods due to stenosis -Mix medicine with applesauce -Return to hospital for chest pain, shortness of breath conical to breathing, nausea, vomiting diarrhea * Attachments The following attachments cannot be sent through Care Everywhere. * TPN (Total Parenteral Nutrition) (Mexican) * TPN (Total Parenteral Nutrition): General Info (Mexican) * Esophageal Stricture: General Info (Mexican) documented in this [facility] [employer] Phone: 1(528) 834-855103-18-2022 Hospital course Narrative* Jose Bello DO - 07/01/2021 2:35 PM EDT Images from the original note were not included. [facility] Office: [phone] Peña Billings DO, Ady Shine DO, Houston Cooper DO, Darell Krueger DO, Elena Allison MD, Hannah Rodrigues MD, Murphy Ball MD, Shraddha Hamm MD, Jannette Albert MD, Dinesh Burgess MD, Flor Donnelly MD, Nate Bone DO, Fabricio Mo DO, Rosalio Green MD, Jose Bello DO, MD Ladan, Bia Hamilton MD, Chalo Sams MD, Filiberto Billings DO, Jose Medina MD, Elian Navarro MD, Latonia Chavez, CORK INSULATOR, Eliz Esquivel CORK INSULATOR, Suzy Wu, CORK INSULATOR, Blanche Desouza, [facility], Edgar Staton, CORK INSULATOR, Suyapa Almaguer, CORK INSULATOR, Cathy Peña, CORK INSULATOR, Lona Greenberg, CORK INSULATOR, Hever Tomlinson, CORK INSULATOR, Niki Badillo PA-C, Arlyn Villegas, DNP, Deneen Stone, [facility], Leandra Rich, CORK INSULATOR, Sapphire Rivera, CORK INSULATOR, Araceli May, CORK INSULATOR, Yuki Orosco, CORK INSULATOR, Felipa Rodrigez, CORK INSULATOR, Sharmin Galdamez, [facility] IN-PATIENT SERVICE [facility] Discharge Summary Patient ID: Sabina Espinoza : 1980 ACCOUNT: [id number] Patient's PCP: Salvatore Camargo MD Admit Date: 06/30/2021 Discharge Date: 07/04/2021 Length of Stay: 4 Code Status: Full Code Admitting Physician: Jose Bello DO Discharge Physician: Jose Bello DO Active Discharge Diagnoses: Hospital Problem Lists: Principal Problem: Esophageal stricture Active Problems: Severe protein-calorie malnutrition ([place]: less than 60% of standard weight) (HCC) Esophageal dysphagia Essential hypertension History of Lauren-en-Y gastric bypass Peptic ulcer disease Gastric foreign body Complications of gastric bypass surgery Chronic gastrojejunal ulcer with obstruction (HCC) Obesity (BMI 30-39.9) Depression Neuropathy Gastritis without bleeding On total parenteral nutrition (TPN) Resolved Problems: * No resolved hospital problems. * Admission Condition: stable Discharged Condition: stable Hospital Stay: Hospital Course: Sabina Espinoza is a 41 y.o. male with a history of RNY in 2010 with revision in 2019complicated by small bowel obstruction, esophageal stricture requiring repeated dilatation and stent placement who presents to the hospital complaints of nausea and vomiting and food intolerance. Symptoms started shortly after his most recent stent was removed (06/22/21). Patient underwent diagnosticEGD on 06/30/2021 which showed a 10 mm ulcer at the gastrojejunal anastomosis. There was no evidenceof GJ stenosis. Patient was started on omeprazole 40 mg twice daily. Upper GI barium study was donewhich did show focal narrowing at the bypass junction with resultant dilatation of the esophagus suggesting stenosis. GI recommended outpatient follow-up at the [facility] bariatric center for revision surgery due to his previous failed stenting/dilatation in the past. Patient was advised to be started on TPN for the next 2 to 3 months which will be managed by his primary care physician. Currently, patient medically stable for discharge. Will need to follow-up with gastroenterology in 1 week's time. Will need to follow-up with his primary care physician after discharge for reevaluation for management of TPN. Patient CPN will be monitored by home care Significant therapeutic interventions: -Underwent EGD to evaluate for possible stenosis. 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 -Started on TPN Significant Diagnostic Studies: Labs / Micro: CBC: Lab Results Component Value Date WBC 5.7 06/30/2021 RBC 5.71 06/30/2021 HGB 10.7 06/30/2021 HCT 41.7 06/30/2021 MCV 73.0 06/30/2021 MCH 18.7 06/30/2021 MCHC 25.7 06/30/2021 RDW 21.5 05/27/2020 PLT See Reflexed IPF Result 06/30/2021 BMP: Lab Results Component Value Date GLUCOSE 106 07/02/2021 NA 136 07/02/2021 K 4.5 07/02/2021 CL 104 07/02/2021 CO2 22 07/02/2021 ANIONGAP 10 07/02/2021 BUN 9 07/02/2021 CREATININE 0.40 07/02/2021 BUNCRER NOT REPORTED 05/27/2020 CALCIUM 9.2 07/02/2021 LABGLOM >60 07/02/2021 GFRAA >60 07/02/2021 GFR 07/02/2021 Radiology: [place] UGI Result Date: 06/30/2021 Findings suggestive of stenosis as detailed above without definite appreciation of fistula. Findings were discussed with HAYDER PENG at approximately 3:35 pm on 06/30/2021. Consultations: Consults: Final Specialist Recommendations/Findings: IP CONSULT TO GI IP CONSULT TO HOME CARE NEEDS The patient was seen and examined on day of discharge and this discharge summary is in conjunction with any daily progress note from day of discharge. Discharge plan: Disposition: Home Physician Follow Up: Salvatore Camargo MD [address] [facility] [address] Schedule an appointment as soon as possible for a visit in 3 days For management of TPN [facility] [address] [facility] [id number] Schedule an appointment as soon as possible for a visit For revision of Lauren-en-Y [facility] [address] [facility] [place], [address] [facility] [id number] Requiring Further Evaluation/Follow Up POST HOSPITALIZATION/Incidental Findings: -Follow-up with your primary care physician for continued management of your TPN. PCP/[facility] will manage your TPN and dosing -Follow-up with [facility]. She department for possible revision of Lauren-en-Y given stenosis -Avoid solid foods due to stenosis -Mix medicine with applesauce -Return to hospital for chest pain, shortness of breath conical to breathing, nausea, vomiting diarrhea -Needs follow-up with his bar hostess after discharge Diet: Liquid diet Activity: As tolerated Instructions to Patient: See above Discharge Medications: Medication List START taking these medications omeprazole 40 MG delayed release capsule Commonly known as: PRILOSEC Take 1 capsule by mouth 2 times daily (before meals) Open capsule and dump contents on 1 teaspoon of applesauce before swallowing twice daily. CONTINUE taking these medications DULoxetine 30 MG extended release capsule Commonly known as: CYMBALTA Lyrica 150 MG capsule Generic drug: pregabalin therapeutic multivitamin-minerals tablet Take 1 tablet by mouth daily STOP taking these medications pantoprazole 40 MG tablet Commonly known as: Protonix sucralfate 1 GM tablet Commonly known as: CARAFATE Where to Get Your Medications These medications were sent to [facility] [place], [place] - [address] [facility] - P [phone] - F [phone] [facility] [address] omeprazole 40 MG delayed release capsule No discharge procedures on file. Time Spent on discharge is 37 mins in patient examination, evaluation, counseling as well as medication reconciliation, prescriptions for required medications, discharge plan and follow up. Electronically signed by Jose Bello DO 07/04/2021 1:[address] Salvatore Camargo MD for the opportunity to be involved in this patient's care. [facility] Phone: [phone]) 171-627103-09-2022 History of Present illness Narrative* Veronica White RN - 06/22/2021 9:26 AM EST 0920 returned post procedure skin warm color pink abdomen soft remains on monitors resting quiet * Ludy Kennedy RN - 06/22/2021 9:16 AM EST 0915 gastric stent removed per dr. lambert with a ratooth instrument. documented [facility] this [facility] Phone: 1(215) 351-370307-15-2021 History of Present illness Narrative* Aicha Daigle RN - 10/28/2020 9:24 AM EDT This content writer contacted [facility] at [phone] and spoke with [facility] to arrange transport home for the patient. [facility] is dispatching a truck driver teamster, specific time unknown. documented in this [facility] [employer] Phone: 1(562) 199-525105-20-2021 History of Present illness Narrative* Veronica White RN - 09/02/2020 11:08 AM EDT Discharge criteria met instructions Given No complaints of pain * Veronica White RN - 09/02/2020 10:49 AM EDT 1045 RETURNED POST PROCEDURE SKIN WARM COLOR PINK ABDOMEN SOFT RESTING WITH EYES CLOSED REMAINS ON MONITORS documented in this [facility] Phone: 1(496) 747-885304-22-2021 History of Present illness Narrative* Veronica Wihte RN - 08/05/2020 11:11 AM EDT Discharge criteria met instructions given iv discontinued site clear 300 ml 0.9 ns discarded awake denies pain instructions not to drive given up with steady gait * Veronica White RN - 08/05/2020 10:05 AM EDT 1003 returned post procedure skin warm color pink abdomen soft resting quiet monitors continued eyes closed * Emelina Caro RN - 08/05/2020 9:59 AM EDT Pt. Mariano. Well , abd. Soft ,non-tender . [facility]* Diagnosis Preoperative testing Preoperative examination, unspecified documented in this encounter [employer] Phone: evaluation note* Diagnosis Preoperative testing Preoperative examination, unspecified documented in this encounter [employer] Phone: evaluation note* Diagnosis Esophageal stricture- Primary Stricture and stenosis of esophagus Essential hypertension Unspecified essential hypertension History of Lauren-en-Y gastric bypass Bariatric surgery status Gastric foreign body Foreign body in stomach Complications of gastric bypass surgery Other digestive system complications Chronic gastrojejunal ulcer with obstruction (HCC) Chronic gastrojejunal ulcer without mention of hemorrhage or perforation, with obstruction Esophageal dysphagia Dysphagia, pharyngoesophageal phase Severe protein-calorie malnutrition ([place]: less than 60% of standard weight) (HCC) Other severe protein-calorie malnutrition Obesity (BMI 30-39.9) Obesity, unspecified Depression Depressive disorder, not elsewhere classified Neuropathy Mononeuritis of unspecified site Gastritis without bleeding Unspecified gastritis and gastroduodenitis without mention of hemorrhage Peptic ulcer disease Peptic ulcer, unspecified site, unspecified as acute or chronic, without mention of hemorrhage, perforation, or obstruction On total parenteral nutrition (TPN) Other specified conditions influencing health status documented in this encounter [employer] Phone: evaluation note* Diagnosis Malnutrition of moderate degree (HCC)- Primary Malnutrition of moderate degree 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 [facility]* Diagnosis Gastrojejunal ulcer- Primary Gastrojejunal ulcer, unspecified as acute or chronic, without mention of hemorrhage, perforation, or obstruction Stricture of esophagus Stricture and stenosis of esophagus Gastric fistula Fistula of stomach or duodenum documented in this encounter [facility] note* Diagnosis Gastrojejunal ulcer Gastrojejunal ulcer, unspecified as acute or chronic, without mention of hemorrhage, perforation, or obstruction Stricture of esophagus Stricture and stenosis of esophagus Gastric fistula Fistula of stomach or duodenum documented in this encounter [facility] note* Diagnosis Gastrojejunal ulcer- Primary Gastrojejunal ulcer, unspecified as acute or chronic, without mention of hemorrhage, perforation, or obstruction Epigastric pain Abdominal pain, epigastric Preoperative examination Preoperative examination, unspecified Gastrojejunal ulcer Gastrojejunal ulcer, unspecified as acute or chronic, without mention of hemorrhage, perforation, or obstruction Epigastric pain Abdominal pain, epigastric Preoperative examination Preoperative examination, unspecified documented in this encounter [facility] note* Diagnosis Preop examination- Primary Preoperative examination, unspecified Epigastric pain Abdominal pain, epigastric Gastrojejunal ulcer Gastrojejunal ulcer, unspecified as acute or chronic, without mention of hemorrhage, perforation, or obstruction Hypertension, unspecified type Obesity (BMI 30.0-34.9) Obesity, unspecified Gastroesophageal reflux disease, unspecified whether esophagitis present Anemia, unspecified type Gastrojejunal ulcer Gastrojejunal ulcer, unspecified as acute or chronic, without mention of hemorrhage, perforation, or obstruction Epigastric pain Abdominal pain, epigastric Preoperative examination Preoperative examination, unspecified documented in this encounter [facility] note* Diagnosis Gastrojejunal ulcer Gastrojejunal ulcer, unspecified as acute or chronic, without mention of hemorrhage, perforation, or obstruction Epigastric pain Abdominal pain, epigastric Preoperative examination Preoperative examination, unspecified Gastrojejunal ulcer Gastrojejunal ulcer, unspecified as acute or chronic, without mention of hemorrhage, perforation, or obstruction Epigastric pain Abdominal pain, epigastric Preoperative examination Preoperative examination, unspecified documented in this encounter [facility] note* Diagnosis Personal history of DVT (deep vein thrombosis)- Primary Personal history of venous thrombosis and embolism documented in this encounter [facility]* Diagnosis Screening for genitourinary condition Screening for other and unspecified genitourinary condition documented in this encounter [facility]* Diagnosis NO SHOW- Primary documented in this encounter [facility] note* Diagnosis Dysphagia, unspecified type- Primary documented in this encounter [facility] note* Diagnosis Squamous cell carcinoma skin of abdomen- Primary Squamous cell carcinoma of skin of trunk, except scrotum documented in this encounter [facility]* Diagnosis Skin cancer- Primary Unspecified malignant neoplasm of skin, site unspecified documented in this encounter [facility] note* Diagnosis Squamous cell carcinoma of skin- Primary Squamous cell carcinoma of skin, site unspecified Skin cancer Unspecified malignant neoplasm of skin, site unspecified Infection in abdomen (HCC) Unspecified peritonitis documented in this encounter [facility] note* Diagnosis Iron deficiency anemia secondary to inadequate dietary iron intake- Primary documented in this encounter [facility] note* Diagnosis Iron deficiency anemia secondary to inadequate dietary iron intake- Primary [facility] Instructions* Arlyn Walters RN - 08/05/2020 [employer] Discharge instructions Diet: You may resume your usual diet. Activity: No heavy lifting or strenuous exercise for 24 hours. Medication: Take Tylenol if needed for pain. Avoid aspirin or aspirin containing drugs. Notifiy Doctor or Compications: 1. Temperature above 101 degrees. 2. Signs of infection - redness, swelling, or drainage 3. Severe bleeding, bruising or hematoma. Any bleeding which does not stop after 5-10 minutes of direct pressure with a sterile 2x2 dressing. 4. Not able to feel thrill (vibration) over site. Please do not hesitate to ask if there are any further questions we can answer for your or anythingelse we can do to make you more comfortable. CALL [phone] WITH FURTHER QUESTIONS. PRESENT TO ER WITH CONTINUED BLEEDING. USE ICE PACKS AND ELEVATE RIGHT ARM TO AVOID SWELLING. documented in this [facility] [employer] Phone: Hospital Discharge instructions* Instructions* Veronica White RN - 09/02/2020 Images from the original note were not included. Upper GI Endoscopy: What to Expect at Home Your Recovery You had an upper GI endoscopy. Your doctor used a thin, lighted tube that bends to look at the inside of your esophagus, your stomach, and the first part of the small intestine, called the duodenum. After you have an endoscopy, you will stay at the hospital or clinic for 1 to 2 hours. This will allow the medicine to wear off. You will be able to go home after your doctor or nurse checks to make sure that you're not having any problems. You may have to stay overnight if you had treatment during the test. You may have a sore throat fora day or two after the test. This care sheet gives you a general idea about what to expect after the test. How can you care for yourself at home? Activity Rest as much as you need to after you go home. You should be able to go back to your usual activities the day after the test. Diet Follow your doctor's directions for eating after the test. Drink plenty of fluids (unless your doctor has told you not to). Medications If you have a sore throat the day after the test, use an seie-nzq-mteueld spray to numb your throat. Follow-up care is a chapin part of your treatment and safety. Be sure to make and go to all appointments, and call your doctor if you are having problems. It's also a good idea to know your test resultsand keep a list of the medicines you take. When should you call for help? Call 911 anytime you think you may need emergency care. For example, call if: You passed out (lost consciousness). You have trouble breathing. You pass maroon or bloody stools. Call your doctor now or seek immediate medical care if: You have pain that does not get better after your take pain medicine. You have new or worse belly pain. You have blood in your stools. You are sick to your stomach and cannot keep fluids down. You have a fever. You cannot pass stools or gas. Watch closely for changes in your health, and be sure to contact your doctor if: Your throat still hurts after a day or two. You do not get better as expected. Where can you learn more? Go to [email or web address] and sign in to your [employer] account. Enter J454 in the Search Health Information box to learn more about Upper GI Endoscopy: What to Expect at Home. If you do not have an account, please click on the Sign Up Now link. Current as of: July 30, 2019 Content Version: 12.8 [employer]. Care instructions adapted under license by [employer] [facility]. If you have questions about a medical condition or this instruction, always ask your healthcare professional. [employer] disclaims any warranty or liability for your use of this information. documented in this [facility] [employer] Phone: Hospital Discharge instructions* Instructions* Smiley Perry RN - 09/30/2020 [facility] POST-ENDOSCOPY INSTRUCTIONS: 1. ACTIVITY No driving, operating machinery, or making important decisions for 24 hours. Resume normal activity after 24 hours. You may return to work after 24 hours. 2. DIET ____ (EGD/ERCP): Do not eat or drink for one hour after your exam. You may then try a sip of water, and if you are able to swallow as usual you may advance to a regular diet. ____ (Colonscopy/Flex Sig): Resume your usual diet unless specified below. ____ Diet Modification: 3. MEDICATIONS (Do not consume alcohol, tranquilizers, or sleeping medications for 24 hours unless advised by your physician) Resume your usual medications 4. PHYSICIAN FOLLOW-UP ____ Please call the office for an appointment/further instructions. ____ See your family physician. 5. ADDITIONAL INSTRUCTIONS 6. NORMAL CHANGES YOU MAY EXPERIENCE AFTER ENDOSCOPY: EGD/ERCP COLONOSCOPY Sore throat after EGD/ERCP Passing of gas for several hours after A bloated feeling and belching from Some mild abdominal cramping air in stomach If a biopsy/polypectomy was done, you If a biopsy was done, you may spit may see some spotting of blood up some blood tinged mucous You may feel fatigued for the next 24-48 hours due to the prep and sedation 7. CALL YOUR PHYSICIAN IF YOU EXPERIENCE ANY OF THE FOLLOWING: A. Passing blood rectally or vomiting blood (color may be red or black) B. Severe abdominal pain or tenderness (that is not relieved by passing air) C. Fever, chills, or excessive sweating D. Persistent nausea or vomiting E. Redness or swelling at the IV site If you have additional questions, PLEASE call your doctor @ or the [facility] [phone] documented in this [facility] Work Phone: Hospital Discharge instructions* Instructions* Aicha Daigle RN - 10/28/2020 [facility] POST-ENDOSCOPY INSTRUCTIONS: 1. ACTIVITY No driving, operating machinery, or making important decisions for 24 hours. Resume normal activity after 24 hours. You may return to work after 24 hours. 2. DIET ____ (EGD/ERCP): Do not eat or drink for one hour after your exam. You may then try a sip of water, and if you are able to swallow as usual you may advance to a regular diet. ____ (Colonscopy/Flex Sig): Resume your usual diet unless specified below. ____ Diet Modification: 3. MEDICATIONS (Do not consume alcohol, tranquilizers, or sleeping medications for 24 hours unless advised by your physician) Resume your usual medications 4. PHYSICIAN FOLLOW-UP ____ Please call the office for an appointment/further instructions. ____ See your family physician. 5. ADDITIONAL INSTRUCTIONS 6. NORMAL CHANGES YOU MAY EXPERIENCE AFTER ENDOSCOPY: EGD/ERCP COLONOSCOPY Sore throat after EGD/ERCP Passing of gas for several hours after A bloated feeling and belching from Some mild abdominal cramping air in stomach If a biopsy/polypectomy was done, you If a biopsy was done, you may spit may see some spotting of blood up some blood tinged mucous You may feel fatigued for the next 24-48 hours due to the prep and sedation 7. CALL YOUR PHYSICIAN IF YOU EXPERIENCE ANY OF THE FOLLOWING: A. Passing blood rectally or vomiting blood (color may be red or black) B. Severe abdominal pain or tenderness (that is not relieved by passing air) C. Fever, chills, or excessive sweating D. Persistent nausea or vomiting E. Redness or swelling at the IV site If you have additional questions, PLEASE call your doctor @ or the [facility] [phone] documented in this [facility] [employer] Work Phone: Hospital Discharge instructions* Instructions* Caroline Hwang, RN - 11/25/2020 [facility] POST-ENDOSCOPY INSTRUCTIONS: 1. ACTIVITY No driving, operating machinery, or making important decisions for 24 hours. Resume normal activity after 24 hours. You may return to work after 24 hours. 2. DIET ____ (EGD/ERCP): Do not eat or drink for one hour after your exam. You may then try a sip of water ____ Diet Modification LIQUID DIET AND Sunday> MAY RETURN TO REGULAR DIET Sunday 3. MEDICATIONS (Do not consume alcohol, tranquilizers, or sleeping medications for 24 hours unless advised by your physician) Resume your usual medications 4. PHYSICIAN FOLLOW-UP ____ Please call the office for an appointment/further instructions. ____ See your family physician. 5. ADDITIONAL INSTRUCTIONS 6. NORMAL CHANGES YOU MAY EXPERIENCE AFTER ENDOSCOPY: EGD/ERCP COLONOSCOPY Sore throat after EGD/ERCP Passing of gas for several hours after A bloated feeling and belching from Some mild abdominal cramping air in stomach If a biopsy/polypectomy was done, you If a biopsy was done, you may spit may see some spotting of blood up some blood tinged mucous You may feel fatigued for the next 24-48 hours due to the prep and sedation 7. CALL YOUR PHYSICIAN IF YOU EXPERIENCE ANY OF THE FOLLOWING: A. Passing blood rectally or vomiting blood (color may be red or black) B. Severe abdominal pain or tenderness (that is not relieved by passing air) C. Fever, chills, or excessive sweating D. Persistent nausea or vomiting E. Redness or swelling at the IV site If you have additional questions, PLEASE call your doctor @ [phone] or the [facility] [phone] documented in this [facility] [employer] Phone: Hospital Discharge instructions* Instructions* Caroline Hwang RN - 02/17/2021 [facility] POST-ENDOSCOPY INSTRUCTIONS: 1. ACTIVITY No driving, operating machinery, or making important decisions for 24 hours. Resume normal activity after 24 hours. You may return to work after 24 hours. 2. DIET ____ (EGD/ERCP): Do not eat or drink for one hour after your exam. You may then try a sip of water, and if you are able to swallow as usual you may advance to a regular diet. ____ (Colonscopy/Flex Sig): Resume your usual diet unless specified below. ____ Diet Modification: 3. MEDICATIONS (Do not consume alcohol, tranquilizers, or sleeping medications for 24 hours unless advised by your physician) Resume your usual medications 4. PHYSICIAN FOLLOW-UP ____ Please call the office for an appointment/further instructions. ____ See your family physician. 5. ADDITIONAL INSTRUCTIONS 6. NORMAL CHANGES YOU MAY EXPERIENCE AFTER ENDOSCOPY: EGD/ERCP COLONOSCOPY Sore throat after EGD/ERCP Passing of gas for several hours after A bloated feeling and belching from Some mild abdominal cramping air in stomach If a biopsy/polypectomy was done, you If a biopsy was done, you may spit may see some spotting of blood up some blood tinged mucous You may feel fatigued for the next 24-48 hours due to the prep and sedation 7. CALL YOUR PHYSICIAN IF YOU EXPERIENCE ANY OF THE FOLLOWING: A. Passing blood rectally or vomiting blood (color may be red or black) B. Severe abdominal pain or tenderness (that is not relieved by passing air) C. Fever, chills, or excessive sweating D. Persistent nausea or vomiting E. Redness or swelling at the IV site If you have additional questions, PLEASE call your doctor @ ___[phone]__ or the [facility] [phone] documented in this [facility] [employer] Phone: Hospital Discharge instructions* Instructions* Celi Reyes RN - 06/22/2021 Images from the original note were not included. Upper GI Endoscopy: What to Expect at Home Your Recovery You had an upper GI endoscopy. Your doctor used a thin, lighted tube that bends to look at the inside of your esophagus, your stomach, and the first part of the small intestine, called the duodenum. After you have an endoscopy, you will stay at the hospital or clinic for 1 to 2 hours. This will allow the medicine to wear off. You will be able to go home after your doctor or nurse checks to make sure that you're not having any problems. You may have to stay overnight if you had treatment during the test. You may have a sore throat fora day or two after the test. This care sheet gives you a general idea about what to expect after the test. How can you care for yourself at home? Activity Rest as much as you need to after you go home. You should be able to go back to your usual activities the day after the test. Diet Follow your doctor's directions for eating after the test. Drink plenty of fluids (unless your doctor has told you not to). Medications If you have a sore throat the day after the test, use an hyuu-epu-xulcqte spray to numb your throat. Follow-up care is a chapin part of your treatment and safety. Be sure to make and go to all appointments, and call your doctor if you are having problems. It's also a good idea to know your test resultsand keep a list of the medicines you take. When should you call for help? Call 911 anytime you think you may need emergency care. For example, call if: You passed out (lost consciousness). You have trouble breathing. You pass maroon or bloody stools. Call your doctor now or seek immediate medical care if: You have pain that does not get better after your take pain medicine. You have new or worse belly pain. You have blood in your stools. You are sick to your stomach and cannot keep fluids down. You have a fever. You cannot pass stools or gas. Watch closely for changes in your health, and be sure to contact your doctor if: Your throat still hurts after a day or two. You do not get better as expected. Where can you learn more? Go to [email or web address] and sign in to your Twijector account. Enter J454 in the Search Health Information box to learn more about Upper GI Endoscopy: What to Expect at Home. If you do not have an account, please click on the Sign Up Now link. Current as of: December 22, 2020 Content Version: 13.1 [employer]istic. Care instructions adapted under license by [employer]. If you have questions about a medical condition or this instruction, always ask your healthcare professional. [employer] disclaims any warranty or liability for your use of this information. documented in this [facility]: reason for referral (narrative)* Diagnostic Procedure Only (Routine) - Pending Review Specialty Diagnoses / Procedures Referred By Shaun barrera Referred To Contact XR IMAGING Diagnoses Malnutrition of moderate degree (HCC) Gastrogastric fistula Procedures XR UPPER GI SINGLE CONTRAST RADIOLOGIC EXAM UPR GI TRC SINGLE CONTRAST STUDY Alysa Asencio MD [address] [place] [address] Xr Imaging Referral ID Status Reason Start Date Expiration Date Visits Requested Visits Authorized [id number] Pending Review Auto-Generat ed Referral 07/29/2021 08/28/2022 1 1 [facility] for referral (narrative)* Outpatient Procedure (Routine) - Authorized Specialty Diagnoses / Procedures Referred By Contac t Referred To Contact [facility] Diagnoses 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 Procedures EGD - THERAPEUTIC, EUS, OR TUBE INTERVENTIONS EGD DILATION GASTRIC/DUODENAL STRICTURE Alysa Asencio MD [address] [place] [id number] [address] [address] Referral ID Status Reason Start Date Expiration Date V isits Requested Visits Authorized [id number] Closed Auto-Generate d Referral 07/29/2021 07/29/2022 1 1 [facility] for referral (narrative)* Outpatient Procedure (Routine) - Pending Review Specialty Diagnoses / Procedures Referred By Contac t Referred To Contact [facility] Diagnoses Personal history of DVT (deep vein thrombosis) Procedures US ARM VEIN DVT AMANDA [facility] DUP-SCAN XTR VEINS COMPLETE BILATERAL STUDY Marnie Muhammad, MANAGER [employer] [address] [place] [address] [address] Referral ID Status Reason Start Date Expiration Date Visits Requested Visits Authorized [id number] Pending Review Auto-Generat ed Referral 10/26/2021 10/26/2022 1 1 [facility] for referral (narrative)* Outpatient Procedure (Routine) - Pending Review Specialty Diagnoses / Procedures Referred By Shaun barrera Referred To Contact [facility] Diagnoses Dysphagia, unspecified type Procedures EGD BARIATRIC ESOPHAGOGASTRODUODENOSC OPY TRANSORAL DIAGNOSTIC Sabina Bean PA-C [address] [place] [address] [facility] [address] [place] [address] Referral ID Status Reason Start Date Expiration Date Visits Requested Visits Authorized [id number] Pending Review Auto-Generat ed Referral 01/03/2022 01/03/2023 [facility] Auth/Cert Specialty Diagnoses / Procedures Referred By Shaun barrera Referred To Contact Diagnoses Jejunostomy malfunction (HCC) ANASTOMOTIC STENOSIS GASTRO-JEJUNOSTOMY Procedures HI ESOPHAGOGASTRODUODENOSCOPY TRANSORAL DIAGNOSTIC EGD ESOPHAGOGASTRODUODENOSCOPY, WITH STENT REMOVAL Lalo Lambert MD [address] [facility] [address] [place] [address] [id number] [place] [address] Referral ID Status Reason Start Date Expiration Date Visits Re quested Visits Authorized [id number] 1 1 [employer] Phone: reason for visit Narrative* Auth/Cert Specialty Diagnoses / Procedures Referred By Shaun barrera Referred To Contact Diagnoses Esophageal stricture recurrent esophageal stricture Jose Bello DO [address] [place], [place] [address] [place] [address] Referral ID Status Reason Start Date Expiration Date Visits Re quested Visits Authorized [id number] 1 1 [employer] Phone: reason for visit Narrative* Outpatient Procedure (Routine) - Closed Specialty Diagnoses / Procedures Referred By Contgabriel t Referred To Contact [facility] Diagnoses 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 Procedures EGD - THERAPEUTIC, EUS, OR TUBE INTERVENTIONS EGD DILATION GASTRIC/DUODENAL STRICTURE Alysa Asencio MD [address] [place] [address] [facility] [address] [id number] Referral ID Status Reason Start Date Expiration Date V isits Requested Visits Authorized [id number] Closed Auto-Generate d Referral 07/29/2021 07/29/2022 1 1 [facility] for visit Narrative* Auth/Cert Specialty Diagnoses / Procedures Referred By Shaun barrera Referred To Contact ADMITTING Diagnoses Gastrojejunal ulcer Epigastric pain Preoperative examination Procedures LAPS ABD PRTM&OMENTUM DX W/WO SPEC BR/WA SPX LAPAROSCOPY DIAGNOSTIC [facility] [address] [place] [address] Referral ID Status Reason Start Date Expiration Date Visits Re quested Visits Authorized [id number] 1 1 [facility] * Houston Cooper DO - 04/08/2020 2:14 PM EST [facility] Office: [phone] Peña Billings DO, Ady Shine DO, Houston Cooper DO, Darell Krueger DO, Elena Allison MD, Hannah Rodrigues MD, Murphy Ball MD, Shraddha Hamm MD, Hipolito Rodriguez MD, Jannette Albert MD, MD Asher, Flor Donnelly MD, Elayne Cleaning MD, Nate Bone DO, Lopez Garcia MD, Gustavo Morillo MD, Fabricio Mo DO, Rosalio Green MD, Jose Bello DO, Gaurav Lopez MD, MD Sam, Latonia Chavez, DOROTA, Eliz Esquivel CNP, Suzy Wu CNP, Blanche Desouza, LOFTER,Edgar Staton CNP, Suyapa Almaguer CNP, Cathy Ling, DOROTA, Loan Richardson, CORK INSULATOR, Hever Tomlinson, CORK INSULATOR, Niki Badillo PA-C, Arlyn Villegas DNP, Yuki Orosco, DOROTA, Deneen Stone, DOROTA, Leandra Rich, DOROTA, Lazara Ballesteros, DOROTA, Sapphire Rivera, DOROTA [facility] IN-PATIENT SERVICE [facility] Discharge Summary Patient ID: Sabina Espinoza : 1980 ACCOUNT: [id number] Patient's PCP: No primary care provider on file. Admit Date: 03/29/2020 Discharge Date: 04/08/2020 Length of Stay: 10 Code Status: Full Code Admitting Physician: Houston Cooper DO Discharge Physician: Houston Cooper DO Active Discharge Diagnoses: Hospital Problem Lists: Principal Problem: SBO (small bowel obstruction) (HCC) Active Problems: Severe protein-calorie malnutrition (HCC) Esophageal dysphagia Iron deficiency anemia Essential hypertension Resolved Problems: * No resolved hospital problems. * Admission Condition: fair Discharged Condition: stable Hospital Stay: Hospital Course: Sabina Espinoza is a 39 y.o. male who was admitted for the management of SBO (small bowel obstruction) (HCC) , presented to ER with abdominal pain Is a 39-year-old male that presents to [facility] visit from [facility] with complaint abdominal pain with nausea vomiting is found of small bowel obstruction. He was admitted to the hospital and underwent routine treatment with nasogastric decompression but failed to improve. Ultimately s nelson completed exploratory laparotomy lysis of adhesions with correction of his obstruction. He did have prolonged postoperative ileus which took several days to resolve and for return of bowel function. He was started on TPN with anticipation he would need further nutritional support and possible LTAC placement. Shortly after initiating TPN he had return of bowel function with passage of flatus and BM. After that point his diet was advanced and tolerated and the TPN was weaned off. Significant therapeutic interventions: As above Significant Diagnostic Studies: Labs / Micro: CBC: Lab Results Component Value Date WBC 6.5 04/08/2020 RBC 4.09 04/08/2020 HGB 9.5 04/08/2020 HCT 35.4 04/08/2020 MCV 86.6 04/08/2020 MCH 23.2 04/08/2020 MCHC 26.8 04/08/2020 RDW 25.0 04/08/2020 PLT 430 04/08/2020 BMP: Lab Results Component Value Date GLUCOSE 86 04/08/2020 NA 135 04/08/2020 K 3.6 04/08/2020 CL 106 04/08/2020 CO2 20 04/08/2020 ANIONGAP 9 04/08/2020 BUN 10 04/08/2020 CREATININE 0.31 04/08/2020 BUNCRER NOT REPORTED 04/08/2020 CALCIUM 7.3 04/08/2020 LABGLOM >60 04/08/2020 GFRAA >60 04/08/2020 GFR 04/08/2020 GFR NOT REPORTED 04/08/2020 Radiology: Ct Abdomen Pelvis Wo Contrast Additional Contrast? None Result Date: 04/02/2020 1. Postoperative pneumoperitoneum which is from recent abdominal surgery secondary to a small bowelobstruction. There is increased distension of distended small bowel loops in the left abdomen whichmeasure up to 7 cm in caliber, consistent with an ongoing mid small bowel obstruction. 2. Increased distention of the right colon with the cecum measuring up to 8 cm and fecalization of the terminal ileum. This could be related to a postoperative ileus. 3. Small free fluid in the lower abdomen and pelvis which is either reactive to the bowel obstruction or related to the recent surgery. No evidence of an abscess. 4. Status post gastric bypass. 5. Soft tissue anasarca, new from the prior exam. 6. Hepatic steatosis. Results of this examination were verbally discussed with the patient's nurse, Loni Epps, at 5:54 p.m. on 04/02/2020. Xr Abdomen (kub) (single Ap View) Result Date: 04/02/2020 Moderate distention of the ascending, transverse and proximal descending colon with a large amount of stool and residual contrast within the colon. Fl Ugi W Small Bowel Result Date: 04/03/2020 Markedly dilated proximal small bowel corresponding to findings on recent CT. Us Retroperitoneal Complete Result Date: 04/02/2020 1. Mild increased echogenicity and dirty shadowing artifact extending from the anterior aspect of the urinary bladder which could be related to gas in the urinary bladder or anterior urinary bladder wall. Emphysematous cystitis difficult to exclude on the basis of this examination. Correlation with urinalysis and possible CT would be beneficial if clinically indicated. 2. Exam limited by bowel gas and rib shadowing. No hydronephrosis. Trace right-sided perinephric fluid. 3. Nonvisualization of ureteral jets. Small amount of free fluid in the lower abdomen. The findings were sent to the Radiology Results Communication Center at 3:22 pm on 04/02/2020to be communicated to a licensed caregiver. Consultations: Consults: Final Specialist Recommendations/Findings: IP CONSULT TO GENERAL SURGERY IP CONSULT TO SURGICAL CRITICAL CARE TEAM IP CONSULT TO DIETITIAN IP CONSULT TO DIETITIAN The patient was seen and examined on day of discharge and this discharge summary is in conjunction with any daily progress note from day of discharge. Discharge plan: Disposition: Home Physician Follow Up: Daniel Moyer, DO [address] [facility] [address] [facility] [id number] In 1 week For wound re-check, For suture removal Requiring Further Evaluation/Follow Up POST HOSPITALIZATION/Incidental Findings: None Diet: regular diet Activity: As tolerated Instructions to Patient: Take medication as prescribed Discharge Medications: Medication List START taking these medications docusate sodium 100 MG capsule Commonly known as: COLACE Take 1 capsule by mouth 2 times daily famotidine 20 MG tablet Commonly known as: PEPCID Take 1 tablet by mouth daily furosemide 20 MG tablet Commonly known as: Lasix Take 1 tablet by mouth daily for 5 days ondansetron 4 MG tablet Commonly known as: ZOFRAN Take 1 tablet by mouth every 8 hours as needed for Nausea or Vomiting therapeutic multivitamin-minerals tablet Take 1 tablet by mouth daily Start taking on: April 09, 2020 ASK your doctor about these medications oxyCODONE-acetaminophen 5-325 MG per tablet Commonly known as: Percocet Take 1 tablet by mouth every 6 hours as needed for Pain for up to 7 days. Intended supply: 3 days. Take lowest dose possible to manage pain Ask about: Should I take this medication? Where to Get Your Medications These medications were sent to [facility] [place], [place] - [address] [place] [address] - P [phone] - F [phone] [facility] [address] famotidine 20 MG tablet furosemide 20 MG tablet You can get these medications from any pharmacy Bring a paper prescription for each of these medications docusate sodium 100 MG capsule ondansetron 4 MG tablet oxyCODONE-acetaminophen 5-325 MG per tablet You don't need a prescription for these medications therapeutic multivitamin-minerals tablet No discharge procedures on file. Time Spent on discharge is 29 minutes in patient examination, evaluation, counseling as well as medication reconciliation, prescriptions for required medications, discharge plan and follow up. Electronically signed by Houston Cooper DO 04/08/2020 2:[address] Acevedo primary care provider on file. for the opportunity to be involved in this patient's care. documented in this encounter Discharge Instructions * Discharge Instr - Activity* Arlyn Villegas APRN - NP - 04/01/2020 10:32 AM EST Activity as tolerated * Discharge Instr - Diet* Arlyn Villegas APRN - NP - 04/01/2020 10:32 AM EST Good nutrition is important when healing from an illness, injury, or surgery. Follow any nutrition recommendations given to you during your hospital stay. If you were given an oral nutrition supplement while in the hospital, continue to take this supplement at home. You can take it with meals, in-between meals, and/or before bedtime. These supplements can be purchased at most local grocery stores, pharmacies, and chain [employer]-stores. If you have any questions about your diet or nutrition, call the hospital and ask for the dietitian. Regular diet * Discharge Instr - JANEEN* Katherine Murray RN - 03/30/2020 12:04 PM EST Continuity of Care Form Patient Name: Sabina Espinoza : 1980 Admit date: 03/29/2020 Discharge date: 04/08/20 Code Status Order: Full Code Advance Directives: Advance Care Flowsheet Documentation Date/Time Healthcare Directive Type of Healthcare Directive Copy in Chart Healthcare Agent Appointed Healthcare Agent's Name Healthcare Agent's Phone Number 03/29/20 [phone] No, patient does not have an advance directive for healthcare treatment -- -- -- -- -- Admitting Physician: Jose Bello DO PCP: No primary care provider on file. Discharging Nurse: Emilie Bartholomew RN Discharging Hospital Unit/Room#: 0443/0443-01 Discharging Unit Emergency Contact: Extended Emergency Contact Information Primary Emergency Contact: Laura Villanueva Mobile Relation: Parent Secondary Emergency Contact: nagi villanueva Mobile Relation: Parent Preferred language: Mexican Lathe Mechanic needed? No Past Surgical History: Past Surgical History: Procedure Laterality Date CHOLECYSTECTOMY 2011 DILATATION, ESOPHAGUS GASTRIC BYPASS SURGERY 2011 KNEE SURGERY Right Multiple knee surgeries TONSILLECTOMY UVULOPALATOPHARYGOPLASTY Immunization History: There is no immunization history for the selected administration types on file for this patient. Active Problems: Patient Active Problem List Diagnosis Code SBO (small bowel obstruction) ([facility]) K56.609 Isolation/Infection: Isolation No Isolation Patient Infection Status None to display Nurse Assessment: Last Vital Signs: BP 109/72 Pulse 89 Temp 98.2 F (36.8 C) (Oral) Resp 16 Ht 5' 10 (1.778 m) Wt 137 lb (62.1 kg) SpO2 95% BMI 19.66 kg/m Last documented pain score (0-10 scale): Pain Level: 9 Last Weight: Wt Readings from Last 1 Encounters: 03/29/20 137 lb (62.1 kg) Mental Status: oriented, alert, coherent, logical and thought processes intact IV Access: - None Nursing Mobility/ADLs: Walking Independent Transfer Independent Bathing Independent Dressing Independent Toileting Independent Feeding Independent Heel Blacker Independent Med Delivery whole Wound Care Documentation and Therapy: Elimination: Continence: Bowel: Yes Bladder: Yes Urinary Catheter: None Colostomy/Ileostomy/Ileal Conduit: No Date of Last BM: 04/07/20 No intake or output data in the 24 hours ending 03/30/20 1203 No intake/output data recorded. Safety Concerns: At Risk for Falls Impairments/Disabilities: None Nutrition Therapy: Current Nutrition Therapy: - Oral Diet: General Routes of Feeding: Oral Liquids: No Restrictions Daily Fluid Restriction: no Last Modified Barium Swallow with Video (Video Swallowing Test): not done Treatments at the Time of Hospital Discharge: Respiratory Treatments: Oxygen Therapy: is not on home oxygen therapy. Ventilator: - No ventilator support Rehab Therapies: {THERAPEUTIC INTERVENTION:[id number]} Weight Bearing Status/Restrictions: No weight bearing restirctions Other Medical Equipment (for information only, NOT a DME order): walker Other Treatments: Patient's personal belongings (please select all that are sent with patient): None RN SIGNATURE: CASE MANAGEMENT/SOCIAL WORK SECTION Inpatient Status Date:03/29/2020 Readmission Risk Assessment Score: Readmission Risk Risk of Unplanned Readmission: 7 Discharging to Facility/ Agency Name: Address: Phone: Fax: Dialysis Facility (if applicable) Name: Address: Dialysis Schedule: Phone: Fax: Hot Molder/Yeast Maker signature: PHYSICIAN SECTION Prognosis: Good Condition at Discharge: Stable Rehab Potential (if transferring to Rehab): Good Recommended Labs or Other Treatments After Discharge:, Inspect incision sites and old drain sites..Diet as tolerated Physician Certification: I certify the above information and transfer of Sabina Espinoza is necessary for the continuing treatment of the diagnosis listed and that he requires Home care for less than 30days. Update Admission H&P: No change in H&P PHYSICIAN SIGNATURE: 2 * Additional Instructions* Emilie Lira RN - 03/30/2020 Learning About Ileus What is ileus? Ileus (say ILL-ee-us ) is a blockage of the bowel (intestines) that happens when the intestines don't work as they should. Normally, muscles in the intestines squeeze to push food and waste along. When this process stops, the intestines stop digesting food and moving waste out of the body. This may also be called paralytic ileus. Ileus is not the same as a mechanical bowel obstruction. In a mechanical bowel obstruction, something is actually blocking the intestine, like scar tissue or a tumor. That is not true in ileus. Ileus sometimes happens after surgery to the belly. But it can also be caused by other things, suchas some medicines, certain diseases or infections, and nerve problems. The doctor may do a number of tests. These tests may include X-rays, blood tests, and a CT scan. Testing can help the doctor be sure that nothing is blocking the intestines. Most people who have ileus need to be treated in the hospital. What are the symptoms? Symptoms may include: Cramping belly pain. Bloating. Nausea or vomiting. Not passing stool or gas. How is ileus treated? You will need to avoid eating solid food until you are better. Instead, you will get fluids and nutrition through a vein (IV). This helps prevent dehydration. It also lets your bowel rest. You may have a tube that goes through your nose and into your stomach. This can help ease pain and bloating. You may get other treatments, depending on what caused ileus. For example, a medicine might be stopped if it is affecting your bowel. The intestines will often start working again in a few days. Signs of this include being able to pass gas or have a bowel movement. As your intestines start working, you will switch slowly from a liquid diet back to solid foods. Follow-up care is a chapin part of your treatment and safety. Be sure to make and go to all appointments, and call your doctor if you are having problems. It's also a good idea to know your test resultsand keep a list of the medicines you take. Where can you learn more? Go to [email or web address] and sign in to your [employer] account. Enter M933 in the Search Health Information box to learn more about Learning About Ileus. If you do not have an account, please click on the Sign Up Now link. Current as of: July 30, 2019 Content Version: 12.6 [employer]. Care instructions adapted under license by [employer]. If you have questions about a medical condition or this instruction, always ask your healthcare professional. [employer] disclaims any warranty or liability for your use of this information. General Surgery Patient Discharge Instructions Discharge Date: 03/30/2020 Discharged To: Home RESUME ACTIVITY: WOUND CARE: Do not remove top dressing for 24 hrs Leave parris until office visit. BATHING: Ok to shower DRIVING: No driving while on pain medication RETURN TO WORK: As Tolerated, no heavy lifting WALKING: Yes LIFTING: Less than 5 pounds for 6 weeks DIET: Ok to resume regular diet. SPECIAL INSTRUCTIONS: Call the office at [phone] to schedule a follow up visit. documented in this encounter* Discharge Instr - JANEEN* Emma Rankin RN - 05/26/2020 10:03 AM EST Continuity of Care Form Patient Name: Sabina Espinoza : 1980 Admit date: 05/23/2020 Discharge date: 05/27/2020 Code Status Order: Full Code Advance Directives: Admitting Physician: Jose Bello DO PCP: No primary care provider on file. Discharging Nurse: Emma MATOS Discharging Hospital Unit/Room#: 0239/0239-01 Discharging Unit Emergency Contact: Extended Emergency Contact Information Primary Emergency Contact: Laura Villanueva Mobile Relation: Parent Secondary Emergency Contact: nagi villanueva Mobile Relation: Parent Preferred language: Mexican Lathe Mechanic needed? No Past Surgical History: Past Surgical History: Procedure Laterality Date ABDOMINAL EXPLORATION SURGERY 04/03/2020 Laparotomy exploratory, egd, prevena wound vac push endoscopy, lysis of adhessions CHOLECYSTECTOMY 2011 DILATATION, ESOPHAGUS GASTRIC BYPASS SURGERY 2011 HC PICC POWERPICC DOUBLE 04/05/2020 KNEE SURGERY Right Multiple knee surgeries LAPAROSCOPY N/A 03/30/2020 DIAGNOSTIC LAPAROSCOPY, LAPAROTOMY LYSIS OF ADHESIONS performed by Daniel Moyer DO at [facility] OR LAPAROTOMY 01/29/2020 DIAGNOSTIC LAPAROSCOPY, LAPAROTOMY LYSIS OF ADHESIONS LAPAROTOMY N/A 04/03/2020 LAPAROTOMY EXPLORATORY, EGD, PREVENA WOUND VAC, PUSH ENDOSCOPY, LYSIS OF ADHESIONS performed by Daniel Moyer DO at [facility] OR TONSILLECTOMY UVULOPALATOPHARYGOPLASTY Immunization History: Immunization History Administered Date(s) Administered Influenza, Quadv, IM, PF (6 mo and older Fluzone, Flulaval, Fluarix, and 3 yrs and older Afluria) 04/08/2020 Active Problems: Patient Active Problem List Diagnosis Code SBO (small bowel obstruction) ([facility]) K56.609 Severe malnutrition (HCC) E43 Esophageal dysphagia R13.10 Essential hypertension I10 Bowel obstruction (HCC) K56.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 Acute hypokalemia E87.6 Anemia, normocytic normochromic D64.9 Hyponatremia E87.1 Transaminasemia R74.01 Fatty liver K76.0 BMI less than 19,adult Z68.1 Hypocalcemia E83.51 Hypoglycemia E16.2 Esophageal stricture K22.2 Ulcer of esophagus without bleeding K22.10 Isolation/Infection: Isolation No Isolation Patient Infection Status None to display Nurse Assessment: Last Vital Signs: BP (!) 128/103 Pulse 89 Temp 97.8 F (36.6 C) (Infrared) Resp 18 Ht 5' 10 (1.778 m) Wt 157 lb (71.2 kg) SpO2 98% BMI 22.53 kg/m Last documented pain score (0-10 scale): Pain Level: 0 Last Weight: Wt Readings from Last 1 Encounters: 05/27/20 157 lb (71.2 kg) Mental Status: oriented and alert IV Access: - PICC - site R Basilic, insertion date: 05/24/2020 Nursing Mobility/ADLs: Walking Independent Transfer Independent Bathing Independent Dressing Independent Toileting Independent Feeding Independent Heel Blacker Independent Med Delivery whole Wound Care Documentation and Therapy: Elimination: Continence: Bowel: Yes Bladder: Yes Urinary Catheter: None Colostomy/Ileostomy/Ileal Conduit: No Date of Last BM: 05/27/2020 Intake/Output Summary (Last 24 hours) at 05/27/2020 1300 Last data filed at 05/27/2020 0215 Gross per 24 hour Intake Output 900 ml Net -900 ml I/O last 3 completed shifts: In: - Out: 900 [Urine:900] Safety Concerns: None Impairments/Disabilities: None Nutrition Therapy: Current Nutrition Therapy: - Oral Diet: Clear Liquid, TPN Routes of Feeding: Oral and Parenteral Nutrition (PN) Liquids: No Restrictions Daily Fluid Restriction: no Last Modified Barium Swallow with Video (Video Swallowing Test): not done Treatments at the Time of Hospital Discharge: Respiratory Treatments: Oxygen Therapy: is not on home oxygen therapy. Ventilator: - No ventilator support Rehab Therapies: Physical Therapy and Occupational Therapy Weight Bearing Status/Restrictions: No weight bearing restirctions Other Medical Equipment (for information only, NOT a DME order): walker Other Treatments: PICC line care; TPN- see order Patient's personal belongings (please select all that are sent with patient): Patient's clothes RN SIGNATURE: CASE MANAGEMENT/SOCIAL WORK SECTION Inpatient Status Date: Readmission Risk Assessment Score: Readmission Risk Risk of Unplanned Readmission: 14 Discharging to Facility/ Agency Name: Address: Phone: Fax: Dialysis Facility (if applicable) Name: Address: Dialysis Schedule: Phone: Fax: Hot Molder/Yeast Maker signature: {Esignature:[id number]:::0} PHYSICIAN SECTION Prognosis: Fair Condition at Discharge: Stable Rehab Potential (if transferring to Rehab): Fair Recommended Labs or Other Treatments After Discharge: PICC care Surgical evaluation and follow-up Dr. Moyer S/P EGD and dilation, GI eval and f/u Dr Lambert F/U EGD in a couple weeks to be arranged Pain management TPN Correct electrolyte abnormalities Anemia w/u on outpatient basis is suggested Blood Pressure - Monitor and control Monitor liver function testing Follow-up with PCP in one week, Physician Certification: I certify the above information and transfer of Sabina Espinoza is necessary for the continuing treatment of the diagnosis listed and that he requires Home Care for less 30 days. Update Admission H&P: Principal Problem: SBO (small bowel obstruction) (HCC) Active Problems: Severe malnutrition (HCC) Essential hypertension Bowel obstruction (HCC) History of Lauren-en-Y gastric bypass Acute hypokalemia Anemia, normocytic normochromic Hyponatremia Transaminasemia Fatty liver BMI less than 19,adult Hypocalcemia Hypoglycemia Esophageal stricture Ulcer of esophagus without bleeding Resolved Problems: * No resolved hospital problems. * PHYSICIAN SIGNATURE: documented in this encounter* Instructions* Emma Aviles RN - 06/24/2020 [facility] POST-ENDOSCOPY INSTRUCTIONS: 1. ACTIVITY No driving, operating machinery, or making important decisions for 24 hours. Resume normal activity after 24 hours. You may return to work after 24 hours. 2. DIET ____ (EGD/ERCP): Do not eat or drink for one hour after your exam. You may then try a sip of water, and if you are able to swallow as usual you may advance to a regular diet. ____ (Colonscopy/Flex Sig): Resume your usual diet unless specified below. ____ Diet Modification: 3. MEDICATIONS (Do not consume alcohol, tranquilizers, or sleeping medications for 24 hours unless advised by your physician) Resume your usual medications 4. PHYSICIAN FOLLOW-UP ____ Please call the office for an appointment/further instructions. ____ See your family physician. 5. ADDITIONAL INSTRUCTIONS 6. NORMAL CHANGES YOU MAY EXPERIENCE AFTER ENDOSCOPY: EGD/ERCP COLONOSCOPY Sore throat after EGD/ERCP Passing of gas for several hours after A bloated feeling and belching from Some mild abdominal cramping air in stomach If a biopsy/polypectomy was done, you If a biopsy was done, you may spit may see some spotting of blood up some blood tinged mucous You may feel fatigued for the next 24-48 hours due to the prep and sedation 7. CALL YOUR PHYSICIAN IF YOU EXPERIENCE ANY OF THE FOLLOWING: A. Passing blood rectally or vomiting blood (color may be red or black) B. Severe abdominal pain or tenderness (that is not relieved by passing air) C. Fever, chills, or excessive sweating D. Persistent nausea or vomiting E. Redness or swelling at the IV site If you have additional questions, PLEASE call your doctor @ or the [facility] GI Unit [phone] [facility] POST-ENDOSCOPY INSTRUCTIONS: 1. ACTIVITY No driving, operating machinery, or making important decisions for 24 hours. Resume normal activity after 24 hours. You may return to work after 24 hours. 2. DIET ____ (EGD/ERCP): Do not eat or drink for one hour after your exam. You may then try a sip of water, and if you are able to swallow as usual you may advance to a regular diet. ____ (Colonscopy/Flex Sig): Resume your usual diet unless specified below. ____ Diet Modification: 3. MEDICATIONS (Do not consume alcohol, tranquilizers, or sleeping medications for 24 hours unless advised by your physician) Resume your usual medications 4. PHYSICIAN FOLLOW-UP ____ Please call the office for an appointment/further instructions. ____ See your family physician. 5. ADDITIONAL INSTRUCTIONS 6. NORMAL CHANGES YOU MAY EXPERIENCE AFTER ENDOSCOPY: EGD/ERCP COLONOSCOPY Sore throat after EGD/ERCP Passing of gas for several hours after A bloated feeling and belching from Some mild abdominal cramping air in stomach If a biopsy/polypectomy was done, you If a biopsy was done, you may spit may see some spotting of blood up some blood tinged mucous You may feel fatigued for the next 24-48 hours due to the prep and sedation 7. CALL YOUR PHYSICIAN IF YOU EXPERIENCE ANY OF THE FOLLOWING: A. Passing blood rectally or vomiting blood (color may be red or black) B. Severe abdominal pain or tenderness (that is not relieved by passing air) C. Fever, chills, or excessive sweating D. Persistent nausea or vomiting E. Redness or swelling at the IV site If you have additional questions, PLEASE call your doctor @ or the [facility] [phone] documented in this encounter* Instructions* Juanita Espinal RN - 07/08/[address] [facility] POST-ENDOSCOPY INSTRUCTIONS: 1. ACTIVITY No driving, operating machinery, or making important decisions for 24 hours. Resume normal activity after 24 hours. You may return to work after 24 hours. 2. DIET ____ (EGD/ERCP): Do not eat or drink for one hour after your exam. You may then try a sip of water, and if you are able to swallow as usual you may advance to a regular diet. ____ (Colonscopy/Flex Sig): Resume your usual diet unless specified below. ____ Diet Modification: 3. MEDICATIONS (Do not consume alcohol, tranquilizers, or sleeping medications for 24 hours unless advised by your physician) Resume your usual medications 4. PHYSICIAN FOLLOW-UP ____ Please call the office for an appointment/further instructions. ____ See your family physician. 5. ADDITIONAL INSTRUCTIONS 6. NORMAL CHANGES YOU MAY EXPERIENCE AFTER ENDOSCOPY: EGD/ERCP COLONOSCOPY Sore throat after EGD/ERCP Passing of gas for several hours after A bloated feeling and belching from Some mild abdominal cramping air in stomach If a biopsy/polypectomy was done, you If a biopsy was done, you may spit may see some spotting of blood up some blood tinged mucous You may feel fatigued for the next 24-48 hours due to the prep and sedation 7. CALL YOUR PHYSICIAN IF YOU EXPERIENCE ANY OF THE FOLLOWING: A. Passing blood rectally or vomiting blood (color may be red or black) B. Severe abdominal pain or tenderness (that is not relieved by passing air) C. Fever, chills, or excessive sweating D. Persistent nausea or vomiting E. Redness or swelling at the IV site If you have additional questions, PLEASE call your doctor @ or the [facility] [phone] documented in this encounter* Instructions* Juanita Espinal, RN - 07/22/2020 [facility] POST-ENDOSCOPY INSTRUCTIONS: 1. ACTIVITY No driving, operating machinery, or making important decisions for 24 hours. Resume normal activity after 24 hours. You may return to work after 24 hours. 2. DIET ____ (EGD/ERCP): Do not eat or drink for one hour after your exam. You may then try a sip of water, and if you are able to swallow as usual you may advance to a regular diet. ____ (Colonscopy/Flex Sig): Resume your usual diet unless specified below. ____ Diet Modification: 3. MEDICATIONS (Do not consume alcohol, tranquilizers, or sleeping medications for 24 hours unless advised by your physician) Resume your usual medications 4. PHYSICIAN FOLLOW-UP ____ Please call the office for an appointment/further instructions. ____ See your family physician. 5. ADDITIONAL INSTRUCTIONS 6. NORMAL CHANGES YOU MAY EXPERIENCE AFTER ENDOSCOPY: EGD/ERCP COLONOSCOPY Sore throat after EGD/ERCP Passing of gas for several hours after A bloated feeling and belching from Some mild abdominal cramping air in stomach If a biopsy/polypectomy was done, you If a biopsy was done, you may spit may see some spotting of blood up some blood tinged mucous You may feel fatigued for the next 24-48 hours due to the prep and sedation 7. CALL YOUR PHYSICIAN IF YOU EXPERIENCE ANY OF THE FOLLOWING: A. Passing blood rectally or vomiting blood (color may be red or black) B. Severe abdominal pain or tenderness (that is not relieved by passing air) C. Fever, chills, or excessive sweating D. Persistent nausea or vomiting E. Redness or swelling at the IV site If you have additional questions, PLEASE call your doctor @ or the [facility] [phone] documented in this encounter History of Present Illness * Darline Shah RD, LD - 04/08/2020 2:10 PM EST Comprehensive Nutrition Assessment Type and Reason for Visit: Reassess Nutrition Recommendations/Plan: -Continue with current diet and nutrition supplements, monitor and encourage adequate intake Nutrition Assessment: TPN discontinued this am and diet advanced to dental soft per surgery team. Has been tolerating full liquid diet with nutritional supplments. Malnutrition Assessment: Malnutrition Status: Moderate malnutrition Context: Chronic Illness Findings of the 6 clinical characteristics of malnutrition: Energy Intake: 7 - 75% or less estimated energy requirements for 1 month or longer Weight Loss: Unable to assess(Weight loss reported per pt - unable to verify per EHR review and current weights) Body Fat Loss: 1 - Mild body fat loss Triceps, Fat Overlying Ribs Muscle Mass Loss: 1 - Mild muscle mass loss Clavicles (pectoralis & deltoids) Fluid Accumulation: 1 - Mild(to Moderate) Extremities, Generalized Lace Cutter Strength: Not Performed Estimated Daily Nutrient Needs: Energy (kcal): 22-25 kcal/kg = 2855-2015 kcals/day; Weight Used for Energy Requirements: [place] Protein (g): 1.2-1.5 gm/kg = 90-115 gm pro/day; Weight Used for Protein Requirements: [place] Nutrition Related Findings: labs/meds reviewed Wounds: Surgical Incision, Multiple, Wound Vac Current Nutrition Therapies: Dietary Nutrition Supplements: Dietary Nutrition Supplements: DIET DENTAL SOFT; Anthropometric Measures: Height: 5' 10 (177.8 cm) Current Body Weight: 194 lb 3.6 oz (88.1 kg) Admission Body Weight: 155 lb 6.4 oz (70.5 kg)(bed scale) Usual Body Weight: 180 lb (81.6 kg)(per pt) [place] Body Weight: 166 lbs; % [place] Body Weight 93.6 % BMI: 27.9 Adjusted Body Weight: ; No Adjustment BMI Categories: Overweight (BMI 25.0-29.9) Nutrition Diagnosis: Inadequate oral intake related to altered GI function as evidenced by intake 26- 50%, intake 51-75% Nutrition Interventions: Food and/or Nutrient Delivery: Continue Current Diet, Continue Oral Nutrition Supplement, Discontinue Parenteral Nutrition Nutrition Education/Counseling: No recommendation at this time Coordination of Nutrition Care: Continue to monitor while inpatient Goals: Meet 75-100% of estimated nutrition needs with oral diet/nutrition support. Nutrition Monitoring and Evaluation: Behavioral-Environmental Outcomes: None Identified Food/Nutrient Intake Outcomes: Diet Advancement/Tolerance, Food and Nutrient Intake, Supplement Intake Physical Signs/Symptoms Outcomes: Biochemical Data, Nutrition Focused Physical Findings, Weight, GIStatus, Meal Time Behavior Discharge Planning: No discharge needs at this time Contact: * Houston Cooper DO - 04/08/2020 6:58 AM EST [facility] Office: [phone] Peña Billings DO, Ady Shine DO, Houston Cooper DO, Darell Krueger DO, Elena Allison MD, Hannah Rodrigues MD, Murphy Ball MD, Shraddha Hamm MD, Hipolito Rodriguez MD, Jannette Albert MD, MD Asher, Flor Donnelly MD, Elayne Cleaning MD, Nate Bone DO, Lopez Garcia MD, Gustavo Morillo MD, Fabricio Mo DO, Rosalio Green MD, Jose Bello, DO, Gaurav Lopez MD, MD Sam, Latonia Chavez, CORK INSULATOR, Eliz Esquivel, CORK INSULATOR, Suzy Wu, CORK INSULATOR, Blanche Desouza, [facility],Edgar Staton, CORK INSULATOR, Suyapa Almaguer, CORK INSULATOR, Cathy Ling, CORK INSULATOR, Loan Richardson, CORK INSULATOR, Hever Tomlinson, CORK INSULATOR, SARAH HartleyC, Arlyn Villegas, DOMINIQUE, Yuki Orosco, CORK INSULATOR, Deneen Stone, CORK INSULATOR, Leandra Rich, CORK INSULATOR, Lazara Ballesteros, CORK INSULATOR, Sapphire Rivera, CORK INSULATOR [facility] IN-PATIENT SERVICE [facility] Progress Note 04/08/2020 6:58 AM Name: Sabina Espinoza Acct: [id number] Room: 0432/0432-02 Day: 10 Admit Date: 03/29/2020 10:04 PM PCP: No primary care provider on file. Code Status: Full Code Subjective: C/C: Abdominal pain Interval History Status: improved. Patient is doing much better, tolerated activity better yesterday with ambulation at home with therapy. Denies any chest pain, shortness of breath, nausea vomiting. Remains on liquid diet, surgeries in early and anticipates advancing diet. Brief History: Per records: Sabina Espinoza is a 39 y.o. Non-/non male who presents with nausea and vomiting and isadmitted to the hospital for the management of intestinal obstruction. Patient presents to the [facility] emergency room for the complaint of abdominal pain nausea and vomiting. Patient states that his nausea and vomiting is chronic and the abdominal pain is intermittently chronic and he has had multiple work-ups in the past with dilation of the esophagus and scopes by his previous GI provider and did not find a source. Patient states that he has had a significant 50 pound weight loss in the past 4 to 5 months secondary to not being able to keep any food down or ingest food. Patient states that he just got tired of throwing up and being nauseated so he decided to seek treatment in the emergency room today While at the outlying emergency room it was noted on his CT he had a small bowel obstruction at theproximal to mid colon, he was medicated with IV pain medications and Zofran and recommended for admission however [facility]. 03/30 diagnostic lap converted to open exploratory laparotomy with lysis of adhesions, history of Lauren-en-Y gastric bypass with general surgery Diet advanced- poor results venofer started for SERENE Return to OR 04/03 for SBO-for exploratory lap, EGD, push endoscopy and lysis of adhesions and midline wound VAC placement, NG tube Review of Systems: Constitutional: negative for chills, fevers, sweats Respiratory: negative for cough, dyspnea on exertion, shortness of breath, wheezing Cardiovascular: negative for chest pain, chest pressure/discomfort, lower extremity edema, palpitations Gastrointestinal: negative for abdominal pain, constipation, diarrhea, nausea, vomiting Neurological: negative for dizziness, headache Medications: Allergies: Allergies Allergen Reactions Prochlorperazine Valsartan Current Meds: Scheduled Meds: acetaminophen 1,000 mg Oral 3 times per day bisacodyl 10 mg Rectal Q12H fat emulsion 250 mL Intravenous Daily metoprolol 5 mg Intravenous Q8H lidocaine 1 % injection 5 mL Intradermal Once sodium chloride flush 10 mL Intravenous 2 times per day famotidine (PEPCID) injection 20 mg Intravenous BID ketorolac 15 mg Intravenous Q6H metoclopramide 5 mg Intravenous Q6H therapeutic multivitamin-minerals 1 tablet Oral Daily enoxaparin 40 mg Subcutaneous Daily sodium chloride flush 10 mL Intravenous 2 times per day influenza virus vaccine 0.5 mL Intramuscular Prior to discharge Continuous Infusions: PN-Adult 2-in-1 Central Line (Standard) 60 mL/hr at 04/07/20 1812 dextrose 5 % and 0.9 % NaCl 25 mL/hr at 04/08/20 0504 PRN Meds: HYDROmorphone, oxyCODONE, sodium chloride flush, labetalol, sodium chloride flush, [DISCONTINUED] potassium chloride OR potassium alternative oral replacement OR potassium chloride,magnesium sulfate, promethazine OR ondansetron, nicotine Data: Past Medical History: has a past medical history of Chronic pain syndrome and Essential hypertension. Social History: reports that he has never smoked. He has never used smokeless tobacco. He reports that he does not drink alcohol or use drugs. Family History: Family History Problem Relation Age of Onset No Known Problems Mother Hypertension Father Heart Attack Father at the age of 58 from heart attack Coronary Art Dis Father Cancer Maternal Grandfather Unknown Vitals: BP (!) 147/109 Pulse 82 Temp 98 F (36.7 C) (Oral) Resp 12 Ht 5' 10 (1.778 m) Wt 201 lb 4.5 oz (91.3 kg) SpO2 95% BMI 28.88 kg/m Temp (24hrs), Av.2 F (36.8 C), Min:97.7 F (36.5 C), Max:98.4 F (36.9 C) Recent Labs 04/06/20 1243 04/06/20 2100 04/07/20 0424 04/08/20 0227 POCGLU 95 91 107 88 I/O (24Hr): Intake/Output Summary (Last 24 hours) at 04/08/2020 0658 Last data filed at 04/08/2020 0507 Gross per 24 hour Intake 4007 ml Output 630 ml Net 3377 ml Labs: Hematology: Recent Labs 04/05/20 0809 04/07/20 0501 04/08/20 0627 WBC 5.3 4.8 6.5 RBC 3.55* 3.57* 4.09* HGB 8.1* 8.3* 9.5* HCT 28.5* 28.9* 35.4* MCV 80.3* 81.0* 86.6 MCH 22.8* 23.2* 23.2* MCHC 28.4 28.7 26.8* RDW 24.0* 24.0* 25.0* PLT 370 418 430 MPV 10.2 9.8 10.1 Chemistry: Recent Labs 04/05/20 0809 04/06/20 0621 04/07/20 0501 NA 139 136 137 K 3.8 3.8 3.3* CL 110* 110* 109* CO2 23 22 23 GLUCOSE 101* 84 96 BUN 17 14 11 CREATININE 0.44* 0.32* 0.24* MG -- 2.3 2.1 ANIONGAP 6* 4* 5* LABGLOM >60 >60 >60 GFRAA >60 >60 >60 CALCIUM 6.8* 6.9* 6.8* PHOS -- 1.4* 1.5* Recent Labs 04/05/20 1607 04/06/20 0621 04/06/20 0722 04/06/20 1243 04/06/20 2100 04/07/20 0424 04/08/20 0227 TRIG -- 65 -- -- -- -- -- POCGLU 87 -- 84 95 91 107 88 ABG:No results found for: POCPH, PHART, PH, POCPCO2, AUM2MIH, PCO2, POCPO2, PO2ART, PO2, POCHCO3, XAR4JLR, HCO3, NBEA, PBEA, BEART, BE, THGBART, THB, RLF6NRN, QTYR2QSK, U2DJULPF, O2SAT, FIO2 Lab Results Component Value Date/Time SPECIAL NOT REPORTED 04/03/2020 11:44 AM Lab Results Component Value Date/Time CULTURE NO GROWTH 04/03/2020 11:44 AM Radiology: Ct Abdomen Pelvis Wo Contrast Additional Contrast? None Result Date: 04/02/2020 1. Postoperative pneumoperitoneum which is from recent abdominal surgery secondary to a small bowelobstruction. There is increased distension of distended small bowel loops in the left abdomen whichmeasure up to 7 cm in caliber, consistent with an ongoing mid small bowel obstruction. 2. Increased distention of the right colon with the cecum measuring up to 8 cm and fecalization of the terminal ileum. This could be related to a postoperative ileus. 3. Small free fluid in the lower abdomen and pelvis which is either reactive to the bowel obstruction or related to the recent surgery. No evidence of an abscess. 4. Status post gastric bypass. 5. Soft tissue anasarca, new from the prior exam. 6. Hepatic steatosis. Results of this examination were verbally discussed with the patient's nurse, Loni Epps, at 5:54 p.m. on 04/02/2020. Xr Abdomen (kub) (single Ap View) Result Date: 04/02/2020 Moderate distention of the ascending, transverse and proximal descending colon with a large amount of stool and residual contrast within the colon. Fl Ugi W Small Bowel Result Date: 04/03/2020 Markedly dilated proximal small bowel corresponding to findings on recent CT. Us Retroperitoneal Complete Result Date: 04/02/2020 1. Mild increased echogenicity and dirty shadowing artifact extending from the anterior aspect of the urinary bladder which could be related to gas in the urinary bladder or anterior urinary bladder wall. Emphysematous cystitis difficult to exclude on the basis of this examination. Correlation with urinalysis and possible CT would be beneficial if clinically indicated. 2. Exam limited by bowel gas and rib shadowing. No hydronephrosis. Trace right-sided perinephric fluid. 3. Nonvisualization of ureteral jets. Small amount of free fluid in the lower abdomen. The findings were sent to the Radiology Results Communication Center at 3:22 pm on 04/02/2020to be communicated to a licensed caregiver. Physical Examination: General appearance: alert, cooperative and no distress Mental Status: oriented to person, place and time and normal affect Lungs: clear to auscultation bilaterally, normal effort Heart: regular rate and rhythm, no murmur Abdomen: soft, nontender, nondistended, normal bowel sounds, no masses, hepatomegaly, splenomegaly Extremities: No redness, tenderness in the calves, positive for lower extremity and scrotal edema Skin: no gross lesions, rashes, induration Assessment: Hospital Problems Last Modified POA * (Principal) SBO (small bowel obstruction) (HCC) 04/03/2020 Yes Severe protein-calorie malnutrition (HCC) 04/01/2020 Yes Esophageal dysphagia 04/01/2020 Yes Iron deficiency anemia 04/01/2020 Yes Essential hypertension 04/06/2020 Yes Plan: 1. Stop IV fluids 2. Repeat dose of Lasix x1 today 3. Dietary advancement per surgery 4. Drains per surgery, anticipate can be removed soon 5. GI and DVT prophylaxis 6. Continue present antihypertensives 7. Nutritional supplements 8. Discharge planning, anticipate need for skilled facility versus home with home care. Has used tolerating diet and TPN to be weaned.he will require LTAC at this point Houston Cooper DO 04/08/2020 6:58 AM * Celso Craft, FROG CATCHER - 04/07/2020 3:58 PM EST Physical Therapy Facility/Department: [address] STE[address] Daily Treatment Note NAME: Sabina Espinoza : 1980 Date of Service: 04/07/2020 Discharge Recommendations:Further therapy recommended at discharge. PT Equipment Recommendations Equipment Needed: Yes Mobility Devices: Walker Walker: Rolling Assessment Body structures, Functions, Activity limitations: Decreased functional mobility ;Decreased balance;Decreased endurance;Decreased strength;Increased pain Assessment: The pt required Mod A of 1 to complete standing and Min A to ambulate with RW. Pt ambulated 50'x 2. Recommend continued therapy to maximize safety and independence. Prognosis: Good Decision Making: Medium Complexity PT Education: PT Role;Goals;Plan of Care;Functional Mobility Training REQUIRES PT FOLLOW UP: Yes Activity Tolerance Activity Tolerance: Patient limited by endurance Patient Diagnosis(es): The encounter diagnosis was Post-op pain. has a past medical history of Chronic pain syndrome and Essential hypertension. has a past surgical history that includes Dilatation, esophagus; Cholecystectomy; Gastric bypass surgery; knee surgery (Right); Uvulopalatopharygoplasty; Tonsillectomy; laparotomy (01/29/2020); laparoscopy (N/A, 03/30/2020); Abdominal exploration surgery (04/03/2020); laparotomy (N/A, 04/03/2020); and picc powerpicc double (04/05/2020). Restrictions Restrictions/Precautions Restrictions/Precautions: Fall Risk Required Braces or Orthoses?: No Position Activity Restriction Other position/activity restrictions: up with assistance, ambulate pt, s/p 04/03 ex lap with wound vac application Subjective Pt inially declined 2 swollen scrotums. RN gave encouragement and pt changed his mind. Pt c/o 10/23 pain. Orientation Overall Orientation Status: Within Functional Limits Objective Transfers Sit to Stand: Moderate Assistance;x 1 Stand to sit: Minimal Assistance Stand Pivot Transfers: Minimal Assistance Comment: Transfers performed with RW- verbal cues for sequencing with fair return. Ambulation Ambulation?: Yes Ambulation 1 Surface: level tile Device: Rolling Walker Assistance: Minimal assistance Quality of Gait: unsteady, poor safety awareness Gait Deviations: Decreased step length;Decreased step height Distance: 50' x 2 with chair to follow Stairs/Curb Stairs?: No Balance Posture: Fair Sitting - Static: Good;- Sitting - Dynamic: Fair Standing - Static: Fair Standing - Dynamic: Fair;- Comments: standing balance assessed with RW No ex's d/t swollen scrotums Goals Short term goals Time Frame for Short term goals: 14 visits Short term goal 1: Perform bed mobility and functional transfers Mod I Short term goal 2: Ambulate 300ft independently with least restrictive AD Short term goal 3: Demo Fair+ dynamic standing balance to decrease risk of falls Short term goal 4: Participate in 30 minutes of therapy to demo increased endurance Plan Plan Times per week: 5-6x/wk Current Treatment Recommendations: Strengthening, ROM, Balance Training, Functional Mobility Training, Transfer Training, Gait Training, Stair training, Endurance Training, Home Exercise Program, Safety Education & Training, Patient/Caregiver Education & Training Safety Devices Type of devices: Nurse notified, Call light within reach, Gait belt, Left in chair, Chair alarm in place Restraints Initially in place: No Therapy Time Individual Concurrent Group Co-treatment Time In 330 Time Out 400 Minutes 30 CELSO CRAFT PTA * Keshia Don RD, LD - 04/07/2020 12:30 PM EST Comprehensive Nutrition Assessment Type and Reason for Visit: Reassess Nutrition Recommendations/Plan: - Continue TPN at 60 mL/hr - increase AA to 90 gm. Along with 230 gm Dextrose and 250 mL 20% IV lipids will provide 1642 kcals, 90 gm pro/day. In next bag increase K+, Phos, and Ca+. - Monitor labs and modify TPN as needed. - Continue Full Liquid diet - encourage intakes and monitor for diet advancement. Will provide frozen Magic Cups x 2 per day. - Suggest as diet advanced/PO intakes improve, begin to wean TPN. Nutrition Assessment: TPN to continue. Pt advanced to Full Liquids - reports for breakfast had vanilla pudding, bites of oatmeal, and some coffee (pt unsure of what else was on meal tray). Pt states he is hungry. +BM's. NG and FREDDIE removed. Discussed labs with RN - K+3.3 mmol/L, Ca+6.8 mg/dL, and Phos 1.5 mg/dL. Pt recieved K+ replacement. Malnutrition Assessment: Malnutrition Status: Moderate malnutrition Context: Chronic Illness Findings of the 6 clinical characteristics of malnutrition: Energy Intake: 7 - 75% or less estimated energy requirements for 1 month or longer Weight Loss: Unable to assess(Weight loss reported per pt - unable to verify per EHR review and current weights) Body Fat Loss: 1 - Mild body fat loss Triceps, Fat Overlying Ribs Muscle Mass Loss: 1 - Mild muscle mass loss Clavicles (pectoralis & deltoids) Fluid Accumulation: 1 - Mild(to Moderate) Extremities, Generalized Lace Cutter Strength: Not Performed Estimated Daily Nutrient Needs: Energy (kcal): 22-25 kcal/kg = 5758-7637 kcals/day; Weight Used for Energy Requirements: [place] Protein (g): 1.2-1.5 gm/kg = 90-115 gm pro/day; Weight Used for Protein Requirements: [place] Nutrition Related Findings: Labs: K+3.3 mmol/L, Phos 1.5 mg/dL, Ca+6.8 mg/dL. Meds: Reglan, MVSohail. BM12/23. H/o gastric bypass. Wounds: Surgical Incision, Multiple, Wound Vac Current Nutrition Therapies: PN-Adult 2-in-1 Central Line (Standard) DIET FULL LIQUID; Current Parenteral Nutrition Orders: Type and Formula: 2-in-1 Custom(230 gm Dextrose, 75 gm AA) Lipids: 250ml, Daily Duration: Continuous Rate/Volume: 60 mL/hr (1440 mL/day) Current PN Order Provides: 1582 kcals, 75 gm pro/day Additional Calorie Sources: D5%0.9%NaCl at 25 mL/hr = 102 kcals/day Anthropometric Measures: Height: 5' 10 (177.8 cm) Current Body Weight: 194 lb 3.6 oz (88.1 kg) Admission Body Weight: 155 lb 6.4 oz (70.5 kg)(bed scale) Usual Body Weight: 180 lb (81.6 kg)(per pt) [place] Body Weight: 166 lbs; % [place] Body Weight 93.6 % BMI: 27.9 BMI Categories: Overweight (BMI 25.0-29.9) Nutrition Diagnosis: Inadequate oral intake related to altered GI function(GI surgeries) as evidenced by nutrition support - parenteral nutrition(recent start of liquid diet with improving PO intakes) Nutrition Interventions: Food and/or Nutrient Delivery: Continue Current Diet, Start Oral Nutrition Supplement, Continue Current Parenteral Nutrition(Monitor for diet advancement. Provide frozen Magic Cup x 2 per day.) Nutrition Education/Counseling: No recommendation at this time Coordination of Nutrition Care: Continue to monitor while inpatient Goals: Meet 75-100% of estimated nutrition needs with oral diet/nutrition support. Nutrition Monitoring and Evaluation: Food/Nutrient Intake Outcomes: Parenteral Nutrition Intake/Tolerance, IVF Intake, Diet Advancement/Tolerance, Food and Nutrient Intake, Supplement Intake Physical Signs/Symptoms Outcomes: Biochemical Data, GI Status, Fluid Status or Edema, Hemodynamic Status, Nutrition Focused Physical Findings, Skin, Weight Contact: * Houston Cooper DO - 04/07/2020 9:31 AM EST [facility] Office: [phone] Peña Billings DO, Ady Shine DO, Houston Cooper DO, Darell Krueger DO, Elena Allison MD, Hannah Rodrigues MD, Murphy Ball MD, Shraddha Hamm MD, Hipolito Rodriguez MD, Jannette Albert MD, MD Asher, Flor Donnelly MD, Elayne Cleaning MD, Nate Bone DO, Lopez Garcia MD, Gustavo Morillo MD, Fabricio Mo DO, Rosalio Green MD, Jose Bello DO, Gaurav Lopez MD, MD Sam, Latonia Chavez, CORK INSULATOR, Eliz Esquivel, CORK INSULATOR, Suzy Wu, CORK INSULATOR, Blanche Desouza, LOFTER,Edgar Staton, CORK INSULATOR, Suyapa Almaguer CORK INSULATOR, Cathy Ling CORK INSULATOR, Loan Richardson, CORK INSULATOR, Hever Tomlinson, CORK INSULATOR, iNki Badillo PA-C, Arlyn Villegas, DOMINIQUE, Yuki Orosco, CORK INSULATOR, Deneen Stone, CORK INSULATOR, Leandra Rich, CORK INSULATOR, Lazara Ballesteros, CORK INSULATOR, Sapphire RiveraDOROTA [facility] IN-PATIENT SERVICE [facility] Progress Note 04/07/2020 9:31 AM Name: Sabina Espinoza Acct: [id number] Room: 0432/0432-02 Day: 9 Admit Date: 03/29/2020 10:04 PM PCP: No primary care provider on file. Code Status: Full Code Subjective: C/C: Abdominal pain Interval History Status: improved. Patient has tolerated advancement to full liquid diet. Denies any chest pain, shortness of breath, nausea or vomiting. Has continued lower extremity edema, developed scrotal edema this morning. Denies any acute complaints. Remains unsteady and weak, working with physical therapy Brief History: Per records: Sabina Espinoza is a 39 y.o. Non-/non male who presents with nausea and vomiting and isadmitted to the hospital for the management of intestinal obstruction. Patient presents to the [facility] emergency room for the complaint of abdominal pain nausea and vomiting. Patient states that his nausea and vomiting is chronic and the abdominal pain is intermittently chronic and he has had multiple work-ups in the past with dilation of the esophagus and scopes by his previous GI provider and did not find a source. Patient states that he has had a significant 50 pound weight loss in the past 4 to 5 months secondary to not being able to keep any food down or ingest food. Patient states that he just got tired of throwing up and being nauseated so he decided to seek treatment in the emergency room today While at the outlying emergency room it was noted on his CT he had a small bowel obstruction at theproximal to mid colon, he was medicated with IV pain medications and Zofran and recommended for admission however there are no beds in the [facility] facilities therefore he was transferred to [facility]. 03/30 diagnostic lap converted to open exploratory laparotomy with lysis of adhesions, history of Lauren-en-Y gastric bypass with general surgery Diet advanced- poor results venofer started for SERENE Return to OR 04/03 for SBO-for exploratory lap, EGD, push endoscopy and lysis of adhesions and midline wound VAC placement, NG tube Review of Systems: Constitutional: negative for chills, fevers, sweats Respiratory: negative for cough, dyspnea on exertion, shortness of breath, wheezing Cardiovascular: negative for chest pain, chest pressure/discomfort, lower extremity edema, palpitations Gastrointestinal: negative for abdominal pain, constipation, diarrhea, nausea, vomiting Neurological: negative for dizziness, headache Medications: Allergies: Allergies Allergen Reactions Prochlorperazine Valsartan Current Meds: Scheduled Meds: furosemide 20 mg Intravenous Once acetaminophen 1,000 mg Oral 3 times per day bisacodyl 10 mg Rectal Q12H fat emulsion 250 mL Intravenous Daily metoprolol 5 mg Intravenous Q8H lidocaine 1 % injection 5 mL Intradermal Once sodium chloride flush 10 mL Intravenous 2 times per day famotidine (PEPCID) injection 20 mg Intravenous BID ketorolac 15 mg Intravenous Q6H metoclopramide 5 mg Intravenous Q6H therapeutic multivitamin-minerals 1 tablet Oral Daily enoxaparin 40 mg Subcutaneous Daily sodium chloride flush 10 mL Intravenous 2 times per day influenza virus vaccine 0.5 mL Intramuscular Prior to discharge Continuous Infusions: PN-Adult 2-in-1 Central Line (Standard) 60 mL/hr at 04/06/20 1953 dextrose 5 % and 0.9 % NaCl 25 mL/hr at 04/07/20 0831 PRN Meds: oxyCODONE, HYDROmorphone, sodium chloride flush, labetalol, sodium chloride flush, [DISCONTINUED] potassium chloride OR potassium alternative oral replacement OR potassium chloride,magnesium sulfate, promethazine OR ondansetron, nicotine Data: Past Medical History: has a past medical history of Chronic pain syndrome and Essential hypertension. Social History: reports that he has never smoked. He has never used smokeless tobacco. He reports that he does not drink alcohol or use drugs. Family History: Family History Problem Relation Age of Onset No Known Problems Mother Hypertension Father Heart Attack Father at the age of 58 from heart attack Coronary Art Dis Father Cancer Maternal Grandfather Unknown Vitals: BP (!) 142/98 Pulse 99 Temp 98.3 F (36.8 C) (Oral) Resp 18 Ht 5' 10 (1.778 m) Wt 194 lb 3.6 oz (88.1 kg) SpO2 98% BMI 27.87 kg/m Temp (24hrs), Av.2 F (36.8 C), Min:97.1 F (36.2 C), Max:98.8 F (37.1 C) Recent Labs 04/06/20 0722 04/06/20 1243 04/06/20 2100 04/07/20 0424 POCGLU 84 95 91 107 I/O (24Hr): Intake/Output Summary (Last 24 hours) at 04/07/2020 0931 Last data filed at 04/07/2020 0520 Gross per 24 hour Intake 2380 ml Output 1355 ml Net 1025 ml Labs: Hematology: Recent Labs 04/05/20 0809 04/07/20 0501 WBC 5.3 4.8 RBC 3.55* 3.57* HGB 8.1* 8.3* HCT 28.5* 28.9* MCV 80.3* 81.0* MCH 22.8* 23.2* MCHC 28.4 28.7 RDW 24.0* 24.0* PLT 370 418 MPV 10.2 9.8 Chemistry: Recent Labs 04/05/20 0809 04/06/20 0621 04/07/20 0501 NA 139 136 137 K 3.8 3.8 3.3* CL 110* 110* 109* CO2 23 22 23 GLUCOSE 101* 84 96 BUN 17 14 11 CREATININE 0.44* 0.32* 0.24* MG -- 2.3 2.1 ANIONGAP 6* 4* 5* LABGLOM >60 >60 >60 GFRAA >60 >60 >60 CALCIUM 6.8* 6.9* 6.8* PHOS -- 1.4* 1.5* Recent Labs 04/05/20 0421 04/05/20 1607 04/06/20 0621 04/06/20 0722 04/06/20 1243 04/06/20209904/07/20 0424 TRIG -- -- 65 -- -- -- -- POCGLU 99 87 -- 84 95 91 107 ABG:No results found for: POCPH, PHART, PH, POCPCO2, MBC0KPO, PCO2, POCPO2, PO2ART, PO2, POCHCO3, XUC3BFS, HCO3, NBEA, PBEA, BEART, BE, THGBART, THB, UOJ0AYV, QUVJ6PWX, U7MNGLWF, O2SAT, FIO2 Lab Results Component Value Date/Time SPECIAL NOT REPORTED 04/03/2020 11:44 AM Lab Results Component Value Date/Time CULTURE NO GROWTH 04/03/2020 11:44 AM Radiology: Ct Abdomen Pelvis Wo Contrast Additional Contrast? None Result Date: 04/02/2020 1. Postoperative pneumoperitoneum which is from recent abdominal surgery secondary to a small bowelobstruction. There is increased distension of distended small bowel loops in the left abdomen whichmeasure up to 7 cm in caliber, consistent with an ongoing mid small bowel obstruction. 2. Increased distention of the right colon with the cecum measuring up to 8 cm and fecalization of the terminal ileum. This could be related to a postoperative ileus. 3. Small free fluid in the lower abdomen and pelvis which is either reactive to the bowel obstruction or related to the recent surgery. No evidence of an abscess. 4. Status post gastric bypass. 5. Soft tissue anasarca, new from the prior exam. 6. Hepatic steatosis. Results of this examination were verbally discussed with the patient's nurse, Loni Epps, at 5:54 p.m. on 04/02/2020. Xr Abdomen (kub) (single Ap View) Result Date: 04/02/2020 Moderate distention of the ascending, transverse and proximal descending colon with a large amount of stool and residual contrast within the colon. Fl Ugi W Small Bowel Result Date: 04/03/2020 Markedly dilated proximal small bowel corresponding to findings on recent CT. Us Retroperitoneal Complete Result Date: 04/02/2020 1. Mild increased echogenicity and dirty shadowing artifact extending from the anterior aspect of the urinary bladder which could be related to gas in the urinary bladder or anterior urinary bladder wall. Emphysematous cystitis difficult to exclude on the basis of this examination. Correlation with urinalysis and possible CT would be beneficial if clinically indicated. 2. Exam limited by bowel gas and rib shadowing. No hydronephrosis. Trace right-sided perinephric fluid. 3. Nonvisualization of ureteral jets. Small amount of free fluid in the lower abdomen. The findings were sent to the Radiology Results Communication Center at 3:22 pm on 04/02/2020to be communicated to a licensed caregiver. Physical Examination: General appearance: alert, cooperative and no distress Mental Status: oriented to person, place and time and normal affect Lungs: clear to auscultation bilaterally, normal effort Heart: regular rate and rhythm, no murmur Abdomen: soft, nontender, nondistended, normal bowel sounds, no masses, hepatomegaly, splenomegaly,FREDDIE drain in place, abdominal wound VAC Extremities: No redness, tenderness in the calves, 1+ edema Skin: no gross lesions, rashes, induration Assessment: Hospital Problems Last Modified POA * (Principal) SBO (small bowel obstruction) (HCC) 04/03/2020 Yes Severe protein-calorie malnutrition (HCC) 04/01/2020 Yes Esophageal dysphagia 04/01/2020 Yes Iron deficiency anemia 04/01/2020 Yes Essential hypertension 04/06/2020 Yes Plan: 1. Dietary advancement per surgery, likely wean TPN soon. 2. PT, OT as ordered 3. LTAC evaluation 4. GI and DVT prophylaxis 5. Nutritional supplements as able 6. Monitor and control blood pressure 7. Discharge planning pending progress, likely LTAC for continued wound care, therapy and possible TPN Houston Cooper DO 04/07/2020 9:31 AM * Sapphire Camarillo DO - 04/07/2020 7:53 AM EST General Surgery: Daily Progress Note PATIENT NAME: Sabina Espinoza TODAY'S DATE: 04/07/2020, 7:53 AM SUBJECTIVE: Pt seen and examined at bedside this morning. No acute events overnight. Afebrile. PICC line in place, TPN running. Pass BM yesterday and again this AM No nausea or vomiting. FREDDIE drain with 55cc SS fluid. OBJECTIVE: VITALS: BP (!) 144/108 Pulse 95 Temp 98.5 F (36.9 C) (Oral) Resp 12 Ht 5' 10 (1.778 m) Wt 194 lb 3.6 oz (88.1 kg) SpO2 97% BMI 27.87 kg/m INTAKE/OUTPUT: Intake/Output Summary (Last 24 hours) at 04/07/2020 0753 Last data filed at 04/07/2020 0520 Gross per 24 hour Intake 2380 ml Output 1355 ml Net 1025 ml PHYSICAL EXAM: General Appearance: awake, alert, oriented, in no acute distress HEENT: Normocephalic, atraumatic, mucus membranes moist Skin: Skin color, texture, turgor normal. No rashes or lesions. Lungs: No chest wall tenderness. Heart: Heart regular rate and rhythm Abdomen: Soft, mildly distended, no peritoneal signs, no rebound tenderness, Prevena wound VAC in place. FREDDIE drain with serosanguinous fluid Extremities: Extremities warm to touch, pink, with no edema. Data: CBC with Differential: Lab Results Component Value Date WBC 4.8 04/07/2020 RBC 3.57 04/07/2020 HGB 8.3 04/07/2020 HCT 28.9 04/07/2020 PLT 418 04/07/2020 MCV 81.0 04/07/2020 MCH 23.2 04/07/2020 MCHC 28.7 04/07/2020 RDW 24.0 04/07/2020 LYMPHOPCT 14 04/05/2020 MONOPCT 16 04/05/2020 BASOPCT 0 04/05/2020 MONOSABS 0.85 04/05/2020 LYMPHSABS 0.74 04/05/2020 EOSABS 0.27 04/05/2020 BASOSABS 0.00 04/05/2020 DIFFTYPE NOT REPORTED 04/05/2020 BMP: Lab Results Component Value Date NA 137 04/07/2020 K 3.3 04/07/2020 CL 109 04/07/2020 CO2 23 04/07/2020 BUN 11 04/07/2020 LABALBU 1.8 04/02/2020 CREATININE 0.24 04/07/2020 CALCIUM 6.8 04/07/2020 GFRAA >60 04/07/2020 LABGLOM >60 04/07/2020 GLUCOSE 96 04/07/2020 ASSESSMENT: Active Hospital Problems Diagnosis Date Noted Essential hypertension [I10] 04/02/2020 Severe protein-calorie malnutrition (HCC) [E43] 03/30/2020 Esophageal dysphagia [R13.10] 03/30/2020 Iron deficiency anemia [D50.9] 03/30/2020 SBO (small bowel obstruction) (HCC) [K56.609] 03/29/2020 1. 39 y.o. male with history of Lauren-en-Y gastric bypass with severe protein calorie malnutrition, status post diagnostic lap converted to open on 03/30, 04/03 exploratory laparotomy with EGD and push endoscopy with lysis of adhesions, application of Prevena wound VAC, FREDDIE drains x2. Plan: 1. Pain control - scheduled tylenol, toradol. Added mk prn and decrease dilaudid. Minimize narcotic use 2. PICC line in place, TPN running, appreciate placement and dietitian management. 3. Continue FLD - no advancement; will consider soft diet tomorrow 4. Dulcolax suppositories BID 5. Recommend patient to be out of bed up to chair, encouraged ambulation. 6. PT/OT 7. Continue wound VAC/Carmen to midline incision - remove on POD7 (04/10) 8. Continue to use incentive spirometer. 9. Continue medical management per primary team. * Filiberto Carrillo DO - 04/06/2020 5:32 PM EST Patient seen examined at bedside. Patient did have a large bowel movement after suppository. NG tube removed at bedside. Left upper quadrant drain removed. Sterile dressing placed. We will advance patient to full liquid diet. Patient is to remain on full liquid diet until advanced by general surgery. * Yecenia Miranda OT - 04/06/2020 1:48 PM EST Occupational Therapy Occupational Therapy Re-Assessment Date: 04/06/2020 Patient Name: Sabina Espinoza : 1980 Date of Service: 04/06/2020 Discharge Recommendations: Patient would benefit from continued therapy after discharge Assessment Performance deficits / Impairments: Decreased high-level IADLs;Decreased endurance;Decreased functional mobility ;Decreased ADL status;Decreased safe awareness;Decreased balance Assessment: Pt seen for reevaluation this date d/t recent surgery and decline in function. At this time pt requires Min A for bed mobility, Mod A X1-2 for transfers and Min A for functional mobility.Pt demonstrates decreased safety awareness requiring reminders throughout session. Pt demonstrates Min-Max A for majority of ADLs at this time. Pt will require continued OT services to address deficits listed. Prognosis: Good Decision Making: Medium Complexity Patient Education: Pt ed on OT POC, safety awareness tech, proper hand placement for transfers, andpain professor of sport management with good return REQUIRES OT FOLLOW UP: Yes Activity Tolerance Activity Tolerance: Patient Tolerated treatment well Activity Tolerance: decreased safety awareness Safety Devices Safety Devices in place: Yes Type of devices: Nurse notified;Left in chair;Gait belt;Call light within reach;Chair alarm in place Restraints Initially in place: No Patient Diagnosis(es): The encounter diagnosis was Post-op pain. has a past medical history of Chronic pain syndrome and Essential hypertension. has a past surgical history that includes Dilatation, esophagus; Cholecystectomy; Gastric bypass surgery; knee surgery (Right); Uvulopalatopharygoplasty; Tonsillectomy; laparotomy (01/29/2020); laparoscopy (N/A, 03/30/2020); Abdominal exploration surgery (04/03/2020); laparotomy (N/A, 04/03/2020); and hc picc powerpicc double (04/05/2020). Treatment Diagnosis: SBO Restrictions Restrictions/Precautions Restrictions/Precautions: Fall Risk Required Braces or Orthoses?: No Position Activity Restriction Other position/activity restrictions: up with assistance, ambulate pt, s/p 04/03 ex lap with wound vac application Subjective General Patient assessed for rehabilitation services?: Yes Family / Caregiver Present: No General Comment Comments: RN ok'd pt for OT/PT eval this date. Pt agreeable to session and pleasant/cooperative throughout Patient Currently in Pain: Yes Pain Assessment Pain Assessment: 0-10 Pain Level: 7 Pain Type: Acute pain;Surgical pain Pain Location: Abdomen Pain Descriptors: Aching;Discomfort Functional Pain Assessment: Prevents or interferes some active activities and ADLs Response to Pain Intervention: Patient Satisfied Pre Treatment Pain Screening Intervention List: Patient able to continue with treatment Social/Functional History Social/Functional History Lives With: Family(parents and aunt. Pt reports aunt is assisting mother currently) Type of Home: Mobile home Home Layout: One level Home Access: Ramped entrance Bathroom Shower/Tub: Tub/Shower unit, Curtain Bathroom Toilet: Handicap height Bathroom Equipment: Shower chair Home Equipment: (was not using any DME prior to admission) Receives Help From: Family(parents are retired and able to assist as needed) ADL Assistance: Independent Homemaking Assistance: Independent Homemaking Responsibilities: Yes Meal Prep Responsibility: No(mother cooks) Laundry Responsibility: Primary Cleaning Responsibility: Primary Bill Paying/Finance Responsibility: Primary Shopping Responsibility: Secondary(parents drive and run errnads. Pt reports does not go out of house much) Dependent Care Responsibility: Secondary(shared care of dog and cat) Ambulation Assistance: Independent Transfer Assistance: Independent Active Steam Powerplant Supervisor: No Patient's Steam Powerplant Supervisor Info: Parents drive Mode of Transportation: Family, Car Occupation: Unemployed Leisure & Hobbies: play [employer], take the dog for a walk, work in the yard, decorate parents home for all the holidays Additional Comments: Pt reports supportive family, able to assist prn. Objective Vision: Impaired(pt reports should be wearing glasses but does not have any) Hearing: Within functional limits Balance Sitting Balance: Stand by assistance Standing Balance: Contact guard assistance Standing Balance Time: ~2 minutes Activity: toileting task and transfers Functional Mobility Functional - Mobility Device: Rolling Walker Activity: To/From therapy gym Assist Level: Minimal assistance Functional Mobility Comments: Pt requires Min A for functional mobility d/t moderate unsteadiness and decreased safety awareness Toilet Transfers Toilet - Technique: Stand step Equipment Used: Grab bars Toilet Transfer: Minimal assistance Toilet Transfers Comments: Pt completed toilet transfer with Min A; educated on utilizing grab barsto assist and requiring reminders for safety awareness throughout ADL Feeding: Independent;Setup Grooming: Stand by assistance;Setup UE Bathing: Minimal assistance;Setup LE Bathing: Moderate assistance;Setup;Increased time to complete UE Dressing: Minimal assistance;Setup LE Dressing: Setup;Increased time to complete;Maximum assistance(Max A to don B socks) Toileting: Minimal assistance;Setup;Increased time to complete(pt completed toileting task requiring increased time to void. Pt able to complete pericare with setup and SBA. Pt requires Min A for transfers on/off toilet with heavy grab bar use) Tone RUE RUE Tone: Normotonic Tone LUE LUE Tone: Normotonic Coordination Movements Are Fluid And Coordinated: Yes Bed mobility Rolling to Left: Independent Rolling to Right: Minimal assistance Supine to Sit: Minimal assistance Scooting: Contact guard assistance Comment: HOB elevated minimally; pt educated on log roll tech to decrease pain with bed mobility Transfers Sit to stand: Moderate assistance;2 Person assistance Stand to sit: Minimal assistance Transfer Comments: pt requiring increased assistance for transfers Cognition Overall Cognitive Status: Exceptions Safety Judgement: Decreased awareness of need for assistance Insights: Decreased awareness of deficits Initiation: Requires cues for some Sequencing: Requires cues for some Sensation Overall Sensation Status: WFL(denies numbness/tingling B hands) LUE AROM (degrees) LUE AROM : WFL Left Hand AROM (degrees) Left Hand AROM: WFL RUE AROM (degrees) RUE AROM : WFL Right Hand AROM (degrees) Right Hand AROM: WFL LUE Strength Gross LUE Strength: WFL RUE Strength Gross RUE Strength: WFL Plan Plan Times per week: 3-5 x/wk Current Treatment Recommendations: Balance Training, Functional Mobility Training, Endurance Training, Pain Management, Safety Education & Training, Patient/Caregiver Education & Training, Equipment Evaluation, Education, & procurement, Self-Care / ADL, Home Management Training AM-PAC Score AM-PAC Inpatient Daily Activity Raw Score: 17 (04/06/20 134) AM-PAC Inpatient ADL T-Scale Score : 37.26 (04/06/20 134) ADL Inpatient CMS 0-100% Score: 50.11 (04/06/20 1349) ADL Inpatient [facility] G-Code Modifier : CK (04/06/201348) Goals Short term goals Time Frame for Short term goals: Pt will, by discharge: Short term goal 1: Demo CGA for functional transfers and functional mobility with use of LRD PRN Short term goal 2: Demo I with UB ADLs and grooming tasks with setup Short term goal 3: Demo CGA with setup and AE PRN for LB ADLs and toileting tasks Short term goal 4: Demo 10+ minutes dynamic standing task to increase safety and independence with ADLs/IADLs Short term goal 5: Demo good safety awarenes throughout therapy session with 0 VCs Therapy Time Individual Concurrent Group Co-treatment Time In 56 Time Out 1047 Minutes 51 Timed Code Treatment Minutes: 23 Minutes Yecenia Miranda OTR/L * Aramis Piña RN - 04/06/2020 1:27 PM EST Dominga Bauer BP * Keshia Don RD, LD - 04/06/2020 1:23 PM EST Comprehensive Nutrition Assessment Type and Reason for Visit: Reassess Nutrition Recommendations/Plan: - Continue TPN - switch to a Custom TPN to run at 60 mL/hr with 230 gm Dextrose and 75 gm AA along with 250 mL 20% IV lipids. In next bag increase Ca+ and Phos, decrease Cl slightly. Will provide 1582 kcals, 75 gm pro/day. - Monitor labs and modify TPN as needed. Suggest discontinuing IV fluids with start of TPN. - Continue Clear Liquid diet - monitor PO intakes and for diet advancement. Nutrition Assessment: TPN to continue. Noted pt has been started on Clear Liquids. NG clamped. IV fluids of D5% continue at 125 mL/hr. Labs reviewed - Phos 1.4 mg/dL noted - discussed labs and TPN with RN. Malnutrition Assessment: Malnutrition Status: Moderate malnutrition Context: Chronic Illness Findings of the 6 clinical characteristics of malnutrition: Energy Intake: 7 - 75% or less estimated energy requirements for 1 month or longer Weight Loss: Unable to assess(14% x 4-5 months per pt - no wt hx per EHR for review) Body Fat Loss: 1 - Mild body fat loss Triceps, Fat Overlying Ribs Muscle Mass Loss: 1 - Mild muscle mass loss Clavicles (pectoralis & deltoids), Thigh (quadraceps) Fluid Accumulation: 1 - Mild(to Moderate) Extremities, Generalized Lace Cutter Strength: Not Performed Estimated Daily Nutrient Needs: Energy (kcal): 22-25 kcal/kg = 9876-3075 kcals/day; Weight Used for Energy Requirements: [place] Protein (g): 1.2-1.5 gm/kg = 90-115 gm pro/day; Weight Used for Protein Requirements: [place] Nutrition Related Findings: Hypoactive bowel sounds. Meds: Phos 1.4 mg/dL, Ca+6.9 mg/dL. Meds: Reglan, MVI. Last BM 04/02 - c/o constipation. H/o gastric bypass. Wounds: Surgical Incision, Multiple, Wound Vac Current Nutrition Therapies: PN-Adult Premix 5/20 - Standard Electrolytes - Central Line DIET CLEAR LIQUID; Current Parenteral Nutrition Orders: Type and Formula: Premix Central(200 gm Dextrose, 50 gm AA) Lipids: 100ml, Daily Duration: Continuous Rate/Volume: 42 mL/hr (1000 mL/day) Current PN Order Provides: 1080 kcals, 50 gm pro/day Additional Calorie Sources: D5%0.9%NaCl at 125 mL/hr = 510 kcal/day Anthropometric Measures: Height: 5' 10 (177.8 cm) Current Body Weight: 190 lb 0.6 oz (86.2 kg)(? accuracy of weight) Admission Body Weight: 155 lb 6.4 oz (70.5 kg)(bed scale) Usual Body Weight: 180 lb (81.6 kg)(per pt) [place] Body Weight: 166 lbs; % [place] Body Weight 93.6 % BMI: 27.3 BMI Categories: Overweight (BMI 25.0-29.9) Nutrition Diagnosis: Inadequate oral intake related to altered GI function(GI surgeries) as evidenced by NPO or clear liquid status due to medical condition, nutrition support - parenteral nutrition Nutrition Interventions: Food and/or Nutrient Delivery: Continue Current Diet, Modify Parenteral Nutrition Nutrition Education/Counseling: No recommendation at this time Coordination of Nutrition Care: Continue to monitor while inpatient Goals: Meet 75-100% of estimated nutrition needs with oral diet/nutrition support. Nutrition Monitoring and Evaluation: Food/Nutrient Intake Outcomes: Parenteral Nutrition Intake/Tolerance, Diet Advancement/Tolerance, Food and Nutrient Intake, IVF Intake Physical Signs/Symptoms Outcomes: Biochemical Data, GI Status, Fluid Status or Edema, Hemodynamic Status, Nutrition Focused Physical Findings, Skin, Weight Contact: * Crystal Malone, PT - 04/06/2020 12:26 PM EST Physical Therapy Facility/Department: [address] [place] Initial Assessment NAME: Sabina Espinoza : 1980 Date of Service: 04/06/2020 Discharge Recommendations: Further therapy recommended at discharge. PT Equipment Recommendations Equipment Needed: Yes Mobility Devices: Walker Walker: Rolling Assessment Body structures, Functions, Activity limitations: Decreased functional mobility ;Decreased balance;Decreased endurance;Decreased strength;Increased pain Assessment: The pt required Mod A of 1-2 to complete standing and Min A to ambulate with RW. Recommend continued therapy to maximize safety and independence. Prognosis: Good Decision Making: Medium Complexity PT Education: PT Role;Goals;Plan of Care;Functional Mobility Training REQUIRES PT FOLLOW UP: Yes Activity Tolerance Activity Tolerance: Patient limited by endurance Patient Diagnosis(es): The encounter diagnosis was Post-op pain. has a past medical history of Chronic pain syndrome and Essential hypertension. has a past surgical history that includes Dilatation, esophagus; Cholecystectomy; Gastric bypass surgery; knee surgery (Right); Uvulopalatopharygoplasty; Tonsillectomy; laparotomy (01/29/2020); laparoscopy (N/A, 03/30/2020); Abdominal exploration surgery (04/03/2020); laparotomy (N/A, 04/03/2020); and picc powerpicc double (04/05/2020). Restrictions Restrictions/Precautions Restrictions/Precautions: Fall Risk Required Braces or Orthoses?: No Position Activity Restriction Other position/activity restrictions: up with assistance, ambulate pt, s/p 04/03 ex lap with wound vac application Vision/Hearing Vision: Impaired(pt reports should be wearing glasses but does not have any) Hearing: Within functional limits Subjective General Patient assessed for rehabilitation services?: Yes Response To Previous Treatment: Not applicable Family / Caregiver Present: No Follows Commands: Within Functional Limits Subjective Subjective: RN and pt agreeable to PT. Pt supine in bed upon arrival, cooperative throughout. Pain Screening Patient Currently in Pain: Yes Pain Assessment Pain Assessment: 0-10 Pain Level: 7 Pain Type: Surgical pain Pain Location: Abdomen Pain Orientation: Mid Pain Descriptors: Aching;Discomfort Pain Frequency: Continuous Pain Onset: On-going Non-Pharmaceutical Pain Intervention(s): Ambulation/Increased Activity Response to Pain Intervention: Patient Satisfied Vital Signs Patient Currently in Pain: Yes Orientation Orientation Overall Orientation Status: Within Functional Limits Social/Functional History Social/Functional History Lives With: Family(parents and aunt. Pt reports aunt is assisting mother currently) Type of Home: Mobile home Home Layout: One level Home Access: Ramped entrance Bathroom Shower/Tub: Tub/Shower unit, Curtain Bathroom Toilet: Handicap height Bathroom Equipment: Shower chair Home Equipment: (was not using any DME prior to admission) Receives Help From: Family(parents are retired and able to assist as needed) ADL Assistance: Independent Homemaking Assistance: Independent Homemaking Responsibilities: Yes Meal Prep Responsibility: No(mother cooks) Laundry Responsibility: Primary Cleaning Responsibility: Primary Bill Paying/Finance Responsibility: Primary Shopping Responsibility: Secondary(parents drive and run errnads. Pt reports does not go out of house much) Dependent Care Responsibility: Secondary(shared care of dog and cat) Ambulation Assistance: Independent Transfer Assistance: Independent Active Steam Powerplant Supervisor: No Patient's Steam Powerplant Supervisor Info: Parents drive Mode of Transportation: Family, Car Occupation: Unemployed Leisure & Hobbies: play nintendo, take the dog for a walk, work in the yard, decorate parents home for all the holidays Additional Comments: Pt reports supportive family, able to assist prn. Cognition Cognition Overall Cognitive Status: Exceptions Safety Judgement: Decreased awareness of need for assistance Insights: Decreased awareness of deficits Initiation: Requires cues for some Sequencing: Requires cues for some Objective Joint Mobility Spine: WFL ROM RLE: WFL ROM LLE: WFL ROM RUE: WFL ROM LUE: WFL Strength RLE Strength RLE: WFL Strength LLE Strength LLE: WFL Strength RUE Strength RUE: WFL Strength LUE Strength LUE: WFL Tone RLE RLE Tone: Normotonic Tone LLE LLE Tone: Normotonic Motor Control Gross Motor?: WFL Sensation Overall Sensation Status: WFL(denies numbness/tingling B hands) Bed mobility Rolling to Left: Independent Rolling to Right: Minimal assistance Supine to Sit: Minimal assistance Sit to Supine: Independent(pt uses BUE's to bring LLE into bed) Scooting: Contact guard assistance Comment: HOB elevated, increased time required Transfers Sit to Stand: Moderate Assistance;2 Person Assistance Stand to sit: Minimal Assistance Stand Pivot Transfers: Minimal Assistance Comment: Transfers performed with RW- verbal cues for sequencing with fair return. Ambulation Ambulation?: Yes Ambulation 1 Surface: level tile Device: Rolling Walker Assistance: Minimal assistance Quality of Gait: unsteady, poor safety awareness Gait Deviations: Decreased step length;Decreased step height Distance: 30ft Stairs/Curb Stairs?: No Balance Posture: Fair Sitting - Static: Good;- Sitting - Dynamic: Fair Standing - Static: Fair Standing - Dynamic: Fair;- Comments: standing balance assessed with RW Plan Plan Times per week: 5-6x/wk Current Treatment Recommendations: Strengthening, ROM, Balance Training, Functional Mobility Training, Transfer Training, Gait Training, Stair training, Endurance Training, Home Exercise Program, Safety Education & Training, Patient/Caregiver Education & Training Safety Devices Type of devices: Nurse notified, Call light within reach, Gait belt, Left in chair, Chair alarm in place Restraints Initially in place: No AM-PAC Score AM-PAC Inpatient Mobility Raw Score : 16 (04/06/20 122) AM-PAC Inpatient T-Scale Score : 40.78 (04/06/20 122) Mobility Inpatient CMS 0-100% Score: 54.16 (04/06/201220) Mobility Inpatient CMS G-Code Modifier : CK (04/06/201220) Goals Short term goals Time Frame for Short term goals: 14 visits Short term goal 1: Perform bed mobility and functional transfers Mod I Short term goal 2: Ambulate 300ft independently with least restrictive AD Short term goal 3: Demo Fair+ dynamic standing balance to decrease risk of falls Short term goal 4: Participate in 30 minutes of therapy to demo increased endurance Therapy Time Individual Concurrent Group Co-treatment Time In 955 Time Out 1047 Minutes 51 Timed Code Treatment Minutes: 23 Minutes Crystal Malone PT * Arlyn Villegas APRN - JC - 04/06/2020 8:59 AM EST [facility] Office: [phone] Peña Billings DO, Ady Shine DO, Houston Cooper DO, Darell Krueger DO, Elena Allison MD, Hannah Rodrigues MD, Murphy Ball MD, Shraddha Hamm MD, Hipolito Rodriguez MD, Jannette Albert MD, MD Asher, Flor Donnelly MD, Elayne Cleaning MD, Nate Bone DO, Lopez Garcia MD, Gustavo Morillo MD, Fabricio Mo DO, Rosalio Green MD, Jose Bello DO, Gaurav Lopez MD, MD Sam, Latonia Chavez CNP, Eliz Esquivel CNP, Suzy Wu CNP, Blanche Desouza, LOFTER,Edgar Staton, CORK INSULATOR, Suyapa Almaguer, CORK INSULATOR, Cathy Ling, CORK INSULATOR, Loan Richardson, CORK INSULATOR, Hever Tomlinson, CORK INSULATOR, Niki Badillo PA-C, Arlyn Villegas, DOMINIQUE, Yuki Orosco, CORK INSULATOR, Deneen Stone, CORK INSULATOR, Leandra Rich, CORK INSULATOR, Lazara Ballesteros, CORK INSULATOR, Sapphire Rivera, CORK INSULATOR [facility] IN-PATIENT SERVICE [facility] Progress Note 04/06/2020 8:59 AM Name: Sabina Espinoza Acct: [id number] Room: [address] [place] [address] Day: 8 Admit Date: 03/29/2020 10:04 PM PCP: No primary care provider on file. Code Status: Full Code Subjective: C/C: ABD pain Interval History Status: Not changed Patient evaluated in room NG tube clamped. Carlson catheter to tentatively be removed. Midline wound VAC continues. FREDDIE drain 1 draining bloody drainage, FREDDIE drain to draining serous drainage. Bowel function still not returning. Patient not tolerating p.o. intake. TPN initiated with PICC line yesterday Brief History: Per records: Sabina Espinoza is a 39 y.o. Non-/non male who presents with nausea and vomiting and isadmitted to the hospital for the management of intestinal obstruction. Patient presents to the [facility] emergency room for the complaint of abdominal pain nausea and vomiting. Patient states that his nausea and vomiting is chronic and the abdominal pain is intermittently chronic and he has had multiple work-ups in the past with dilation of the esophagus and scopes by his previous GI provider and did not find a source. Patient states that he has had a significant 50 pound weight loss in the past 4 to 5 months secondary to not being able to keep any food down or ingest food. Patient states that he just got tired of throwing up and being nauseated so he decided to seek treatment in the emergency room today While at the outlying emergency room it was noted on his CT he had a small bowel obstruction at theproximal to mid colon, he was medicated with IV pain medications and Zofran and recommended for admission however [facility]. 03/30 diagnostic lap converted to open exploratory laparotomy with lysis of adhesions, history of Lauren-en-Y gastric bypass with general surgery Diet advanced- poor results venofer started for SERENE Return to OR 04/03 for SBO-for exploratory lap, EGD, push endoscopy and lysis of adhesions and midline wound VAC placement, NG tube Review of Systems: Constitutional: negative for chills, fevers, sweats Respiratory: negative for cough, dyspnea on exertion, shortness of breath, wheezing Cardiovascular: negative for chest pain, chest pressure/discomfort, lower extremity edema, palpitations Gastrointestinal: +abdominal pain, +constipation,- diarrhea, -nausea,-vomiting Neurological: negative for dizziness, headache Medications: Allergies: Allergies Allergen Reactions Prochlorperazine Valsartan Current Meds: Scheduled Meds: bisacodyl 10 mg Rectal Q12H lidocaine 1 % injection 5 mL Intradermal Once sodium chloride flush 10 mL Intravenous 2 times per day fat emulsion 100 mL Intravenous Daily famotidine (PEPCID) injection 20 mg Intravenous BID metoprolol 2.5 mg Intravenous Q8H ketorolac 15 mg Intravenous Q6H metoclopramide 5 mg Intravenous Q6H therapeutic multivitamin-minerals 1 tablet Oral Daily enoxaparin 40 mg Subcutaneous Daily sodium chloride flush 10 mL Intravenous 2 times per day influenza virus vaccine 0.5 mL Intramuscular Prior to discharge Continuous Infusions: PN-Adult Premix 09/02 - Standard Electrolytes - Central Line 42 mL/hr at 04/05/20 1725 dextrose 5 % and 0.9 % NaCl 125 mL/hr at 04/05/20 0637 PRN Meds: sodium chloride flush, labetalol, HYDROmorphone, sodium chloride flush, [DISCONTINUED] potassium chloride OR potassium alternative oral replacement OR potassium chloride, magnesium sulfate, promethazine OR ondansetron, nicotine, acetaminophen OR acetaminophen Data: Past Medical History: has a past medical history of Chronic pain syndrome and Essential hypertension. Social History: reports that he has never smoked. He has never used smokeless tobacco. He reports that he does not drink alcohol or use drugs. Family History: Family History Problem Relation Age of Onset No Known Problems Mother Hypertension Father Heart Attack Father at the age of 58 from heart attack Coronary Art Dis Father Cancer Maternal Grandfather Unknown Vitals: BP (!) 152/107 Pulse 91 Temp 97.7 F (36.5 C) (Oral) Resp 11 Ht 5' 10 (1.778 m) Wt 190 lb0.6 oz (86.2 kg) SpO2 91% BMI 27.27 kg/m Temp (24hrs), Av F (36.7 C), Min:97.6 F (36.4 C), Max:98.9 F (37.2 C) Recent Labs 04/04/20 0609 04/05/20 0421 04/05/20 1607 04/06/20 0722 POCGLU 93 99 87 84 I/O (24Hr): Intake/Output Summary (Last 24 hours) at 04/06/2020 0859 Last data filed at 04/06/2020 0649 Gross per 24 hour Intake 1506 ml Output 745 ml Net 761 ml Labs: Hematology: Recent Labs 04/04/20 0609 04/05/20 0809 WBC 7.4 5.3 RBC 4.94 3.55* HGB 11.1* 8.1* HCT 38.1* 28.5* MCV 77.1* 80.3* MCH 22.5* 22.8* MCHC 29.1 28.4 RDW 24.1* 24.0* PLT 499* 370 MPV 9.7 10.2 Chemistry: Recent Labs 04/03/20 1458 04/04/20 0609 04/05/20 0809 04/06/20 0621 NA -- 133* 139 136 K -- 4.2 3.8 3.8 CL -- 103 110* 110* CO2 -- 24 23 22 GLUCOSE -- 105* 101* 84 BUN -- 15 17 14 CREATININE -- 0.44* 0.44* 0.32* MG 2.3 -- -- 2.3 ANIONGAP -- 6* 6* 4* LABGLOM -- >60 >60 >60 GFRAA -- >60 >60 >60 CALCIUM -- 7.4* 6.8* 6.9* PHOS -- -- -- 1.4* Recent Labs 04/03/20 1526 04/04/20 0300 04/04/20 0609 04/05/20 0421 04/05/20 1607 04/06/20 0621 04/06/20 0722 TRIG -- -- -- -- -- 65 -- POCGLU 79 128* 93 99 87 -- 84 ABG:No results found for: POCPH, PHART, PH, POCPCO2, FBL6HGU, PCO2, POCPO2, PO2ART, PO2, POCHCO3, HVN4BRA, HCO3, NBEA, PBEA, BEART, BE, THGBART, THB, OWF2JAA, IPMD6RCW, W6RPGHOD, O2SAT, FIO2 Lab Results Component Value Date/Time SPECIAL NOT REPORTED 04/03/2020 11:44 AM Lab Results Component Value Date/Time CULTURE NO GROWTH 04/03/2020 11:44 AM Radiology: No results found. Physical Examination: General appearance: alert, cooperative and no distress, pale Mental Status: oriented to person, place and time and normal affect Lungs: clear to auscultation bilaterally, normal effort Heart: regular rate and rhythm, no murmur Abdomen: Flat, soft, nontender, nondistended, hypoactive bowel sounds all try, midline abdominal wound VAC, left lower quadrant FREDDIE drains x2 extremities: +1 left lower extremity nonpitting edema, -redness,- tenderness in the calves Skin: Pale, no gross lesions, rashes, induration, midline wound VAC, FREDDIE drains x2 left lower quadrant Assessment: Hospital Problems Last Modified POA * (Principal) SBO (small bowel obstruction) (HCC) 04/03/2020 Yes Severe protein-calorie malnutrition (HCC) 04/01/2020 Yes Esophageal dysphagia 04/01/2020 Yes Iron deficiency anemia 04/01/2020 Yes Essential hypertension 04/02/2020 Yes Plan: 1. Small bowel obstruction: Status post diagnostic lap converted to open exploratory laparotomy with lysis of adhesions, history of Lauren-en-Y gastric bypass with general surgery. Return to the OR on 04/03 for exploratory lap and push EGD with vac and FREDDIE drain X2 placement. TPN started 04/05 2. severe protein calorie malnutrition: Continue vitamin supplementation, TPN 3. Postoperative constipation: Medications as ordered, encourage ambulation 4. GI/DVT prophylaxis: lovenox, Pepcid 5. PT, OT 6. Replace electrolytes as indicated AQUILES Perales NP 04/06/2020 8:59 AM Associated attestation - Houston Cooper DO - 04/06/2020 3:46 PM EST I have seen and examined Sabina Espinoza and the chapin elements of all parts of the encounter have been performed by me. I agree with the assessment, plan and orders as documented by the Advanced PracticeProvider. Any modifications to the exam findings and the plan of treatment is as below and the final version is my approved version of the assessment. Additional Comments: Patient has had a bowel movement and is now passing gas. Starting clear liquiddiet per surgery. Denies any chest pain, shortness of breath, nausea or vomiting. Abdomen soft, nondistended, hypoactive bowel sounds Continue TPN, wean as the diet is advanced Nutritional supplements monitor and control blood pressure Discharge plan to skilled facility/LTAC pending progress. * Filiberto Carrillo DO - 04/06/2020 6:59 AM EST General Surgery: Daily Progress Note PATIENT NAME: Sabina Espinoza TODAY'S DATE: 04/06/2020, 7:00 AM SUBJECTIVE: Pt seen and examined at bedside this morning. No acute events overnight. Afebrile. Currently n.p.o.IV fluids running. Better urine output over the last [address] line in place, TPN running. Patient reports he is unsure if he passed flatus, denies any bowel movement. No nausea or vomiting. NG tube in place. OBJECTIVE: VITALS: BP (!) 152/107 Pulse 91 Temp 97.7 F (36.5 C) (Oral) Resp 11 Ht 5' 10 (1.778 m) Wt 190 lb 0.6 oz (86.2 kg) SpO2 91% BMI 27.27 kg/m INTAKE/OUTPUT: Intake/Output Summary (Last 24 hours) at 04/06/2020 0700 Last data filed at 04/06/2020 0649 Gross per 24 hour Intake 1506 ml Output 745 ml Net 761 ml PHYSICAL EXAM: General Appearance: awake, alert, oriented, in no acute distress HEENT: Normocephalic, atraumatic, mucus membranes moist Skin: Skin color, texture, turgor normal. No rashes or lesions. Lungs: No chest wall tenderness. Heart: Heart regular rate and rhythm Abdomen: Soft, mildly distended, no peritoneal signs, no rebound tenderness, Prevena wound VAC in place Extremities: Extremities warm to touch, pink, with no edema. Data: CBC with Differential: Lab Results Component Value Date WBC 5.3 04/05/2020 RBC 3.55 04/05/2020 HGB 8.1 04/05/2020 HCT 28.5 04/05/2020 PLT 370 04/05/2020 MCV 80.3 04/05/2020 MCH 22.8 04/05/2020 MCHC 28.4 04/05/2020 RDW 24.0 04/05/2020 LYMPHOPCT 14 04/05/2020 MONOPCT 16 04/05/2020 BASOPCT 0 04/05/2020 MONOSABS 0.85 04/05/2020 LYMPHSABS 0.74 04/05/2020 EOSABS 0.27 04/05/2020 BASOSABS 0.00 04/05/2020 DIFFTYPE NOT REPORTED 04/05/2020 BMP: Lab Results Component Value Date NA 139 04/05/2020 K 3.8 04/05/2020 CL 110 04/05/2020 CO2 23 04/05/2020 BUN 17 04/05/2020 LABALBU 1.8 04/02/2020 CREATININE 0.44 04/05/2020 CALCIUM 6.8 04/05/2020 GFRAA >60 04/05/2020 LABGLOM >60 04/05/2020 GLUCOSE 101 04/05/2020 ASSESSMENT: Active Hospital Problems Diagnosis Date Noted Essential hypertension [I10] 04/02/2020 Severe protein-calorie malnutrition (HCC) [E43] 03/30/2020 Esophageal dysphagia [R13.10] 03/30/2020 Iron deficiency anemia [D50.9] 03/30/2020 SBO (small bowel obstruction) (HCC) [K56.609] 03/29/2020 1. 39 y.o. male with history of Lauren-en-Y gastric bypass with severe protein calorie malnutrition, status post diagnostic lap converted to open on 03/30, 04/03 exploratory laparotomy with EGD and push endoscopy with lysis of adhesions, application of Prevena wound VAC, FREDDIE drains x2. Plan: 1. Patient seen examined at bedside this morning. 2. PICC line in place, TPN running, appreciate placement and dietitian management. 3. Clamp ng tube, start CLD. 4. Can D/C carlson 5. We will start every 12 hrs- Dulcolax suppositories. 6. Recommend patient to be out of bed up to chair, encouraged ambulation. 7. PT/OT 8. Continue wound VAC/Carmen to midline incision 9. Continue to use incentive spirometer. 10. Continue medical management per primary team. Associated attestation - Daniel Moyer, - 04/06/2020 5:32 PM EST I have discussed the care of the patient, including pertinent history and exam findings, with the resident. I have seen and examined the patient and the chapin elements of all parts of the encounter have been performed by me. I agree with the assessment, plan and orders as documented by the resident. Slow advancement of diet NG removed FREDDIE removed Need to continue to monitor patient due to expected ileus * Keshia Don, RD, LD - 04/05/2020 3:33 PM EST Comprehensive Nutrition Assessment Type and Reason for Visit: Consult, Reassess(PN Ordering and Management) Nutrition Recommendations/Plan: - Continue NPO. Monitor for restart of liquid diet as able/appropriate, for bowel function, and plan of care. - As PICC placed, start TPN of a Premixed 5/20 bag to run at 42 mL/hr with 200 gm Dextrose and 50 gm AA along with 100 mL 20% IV lipids. Will provide 1010 kcals, 50 gm pro/day. - Monitor labs and modify TPN as needed. Suggest discontinuing IV fluids with start of TPN. Nutrition Assessment: Consulted for Parenteral Nutrition. RN reports plan for PICC line placement today. Pt remains NPO. Pt developed pain and nausea after previous start of oral diet - concern for another obstruction. S/p ex lap with EGD and push endoscopy, MAME, application of Prevena wound VAC, FREDDIE drains x2 on 04/03. NG in place with 100 mL output x 24 hrs. No BM or flatus. Currently recieving D5%0.9%NaCl at 125 mL/hr. Labs/Meds reviewed. Malnutrition Assessment: Malnutrition Status: Moderate malnutrition Context: Chronic Illness Findings of the 6 clinical characteristics of malnutrition: Energy Intake: 7 - 75% or less estimated energy requirements for 1 month or longer Weight Loss: Unable to assess(14% x 4-5 months per pt - no wt hx per EHR for review) Body Fat Loss: 1 - Mild body fat loss Triceps, Fat Overlying Ribs Muscle Mass Loss: 1 - Mild muscle mass loss Clavicles (pectoralis & deltoids), Thigh (quadraceps) Fluid Accumulation: 1 - Mild(to Moderate) Extremities, Generalized Lace Cutter Strength: Not Performed Estimated Daily Nutrient Needs: Energy (kcal): 22-25 kcal/kg = 7320-0848 kcals/day; Weight Used for Energy Requirements: [place] Protein (g): 1.2-1.5 gm/kg = 90-115 gm pro/day; Weight Used for Protein Requirements: [place] Nutrition Related Findings: Active/Hypoactive bowel sounds. Labs reviewed: Ca+6.8 mgdL, Cl 110 mmol/L. Meds reviewed: JOVANY Diaz. Last BM 04/02. H/o gastric bypass. Wounds: Surgical Incision, Multiple, Wound Vac Current Nutrition Therapies: Diet NPO Effective Now Exceptions are: Ice Chips Additional Calorie Sources: D5%0.9%NaCl at 125 mL/hr = 510 kcal/day Anthropometric Measures: Height: 5' 10 (177.8 cm) Current Body Weight: 190 lb 0.6 oz (86.2 kg)(? accuracy of weight) Admission Body Weight: 155 lb 6.4 oz (70.5 kg)(bed scale) Usual Body Weight: 180 lb (81.6 kg)(per pt) [place] Body Weight: 166 lbs; % [place] Body Weight 93.6 % BMI: 27.3 BMI Categories: Overweight (BMI 25.0-29.9) Nutrition Diagnosis: Inadequate oral intake related to altered GI function(GI surgeries) as evidenced by NPO or clear liquid status due to medical condition(need for nutrition support - parenteral nutrition) Nutrition Interventions: Food and/or Nutrient Delivery: Continue NPO, Start Parenteral Nutrititon(Suggest a Premixed 5/20 TPN at 42 mL/hr with 200 gm Dextrose and 50 gm AA along with 100 mL 20% IV lipids.) Nutrition Education/Counseling: No recommendation at this time Coordination of Nutrition Care: Continue to monitor while inpatient Goals: Meet 75-100% of estimated nutrition needs with oral diet/nutrition support. Nutrition Monitoring and Evaluation: Food/Nutrient Intake Outcomes: Diet Advancement/Tolerance, IVF Intake, Parenteral Nutrition Intake/Tolerance Physical Signs/Symptoms Outcomes: Biochemical Data, GI Status, Fluid Status or Edema, Hemodynamic Status, Nutrition Focused Physical Findings, Skin, Weight Contact: * Gisselle Hughes, PT - 04/05/2020 3:30 PM EST Physical Therapy DATE: 04/05/2020 NAME: Sabina Espinoza : 1980 Patient not seen this date for Physical Therapy due to: [] Blood transfusion in progress [] Hemodialysis [] Patient Declined [] Spine Precautions [] Strict Bedrest [] Surgery/ Procedure [] Testing [x] Other: evaluation attempted, pt requiring encouragement to participate this PM. Pt eventually agreeable, however, arrival of PICC team to place PICC. PT will check back as time allows or 04/06/20. [] PT is being discontinued at this time. Patient independent. No further needs. [] PT is being discontinued at this time due to declining physical/ medical status. Therapy is not appropriate at this time. Gisselle Hughes PT * Breonna Almeida RN - 04/05/2020 1:22 PM EST Noted order for PICC line insertion is no longer on content writer's list. Order completed by Shruti MATOS. [email or web address] received that consent had been obtained. [employer] sent to Shruti MATOS that order needs to be reentered in order for line to be placed. * Breonna Almeida RN - 04/05/2020 12:05 PM EST Spoke with bedside RN. No consent has been obtained by physicians or HYBRID TESTER. Notified it needs to be completed by physician and then to perfect nikko content writer and PICC can be completed. * Nelly Arlyn, MANAGER HARBOR - HYBRID TESTER - 04/05/2020 9:02 AM EST [facility] Office: [phone] Peña Billings, DO, Ady Shine, DO, Houston Cooper DO, Darell Krueger DO, Elena Allison MD, Hannah Rodrigues MD, Murphy Ball MD, Shraddha Hamm MD, Hipolito Rodriguez MD, Jannette Albert MD, MD Asher, Flor Donnelly MD, Elayne Cleaning MD, Nate Bone DO, Lopez Garcia MD, Gustavo Morillo MD, Fabricio Mo DO, Rosalio Green MD, Jose Bello DO, Gaurav Lopez MD, MD Sam, Latonia Chavez, CORK INSULATOR, Eliz Esquivel, CORK INSULATOR, Suzy Wu, CORK INSULATOR, Blanche Desouza, LOFTER,Edgar Staton, CORK INSULATOR, Suyapa Almaguer, CORK INSULATOR, Cathy Ling, CORK INSULATOR, Loan Richardson, CORK INSULATOR, Hever Tomlinson, CORK INSULATOR, Niki Badillo PA-C, Arlyn Villegas, DOMINIQUE, Yuki Orosco, CORK INSULATOR, Deneen Stone, CORK INSULATOR, Leandra Rich, CORK INSULATOR, Lazara Ballesteros, CORK INSULATOR, Sapphire Rivera, CORK INSULATOR [facility] IN-PATIENT SERVICE [facility] Progress Note 04/05/2020 9:03 AM Name: Sabina Espinoza Acct: [id number] Room: [address] [place], [place] [address] Day: 7 Admit Date: 03/29/2020 10:04 PM PCP: No primary care provider on file. Code Status: Full Code Subjective: C/C: ABD pain Interval History Status: Not changed Patient evaluated in room resting in bed no acute distress. Vital signs are stable. Wound VAC continues. FREDDIE drains x2 draining scant amount of bloody and serous drainage respectively. P.o. intake continues to be poor. Awaiting PICC line placement for TPN initiation. NG tube in right nares Brief History: Per records: Sabina Espinoza is a 39 y.o. Non-/non male who presents with nausea and vomiting and isadmitted to the hospital for the management of intestinal obstruction. Patient presents to the [facility] emergency room for the complaint of abdominal pain nausea and vomiting. Patient states that his nausea and vomiting is chronic and the abdominal pain is intermittently chronic and he has had multiple work-ups in the past with dilation of the esophagus and scopes by his previous GI provider and did not find a source. Patient states that he has had a significant 50 pound weight loss in the past 4 to 5 months secondary to not being able to keep any food down or ingest food. Patient states that he just got tired of throwing up and being nauseated so he decided to seek treatment in the emergency room today While at the outlying emergency room it was noted on his CT he had a small bowel obstruction at theproximal to mid colon, he was medicated with IV pain medications and Zofran and recommended for admission however there are no beds in the [facility] facilities therefore he was transferred to [facility]. 03/30 diagnostic lap converted to open exploratory laparotomy with lysis of adhesions, history of Lauren-en-Y gastric bypass with general surgery Diet advanced venofer started for SERENE Return to OR 04/03 for SBO-for exploratory lap, EGD, push endoscopy and lysis of adhesions and midline wound VAC placement, NG tube Review of Systems: Constitutional: negative for chills, fevers, sweats Respiratory: negative for cough, dyspnea on exertion, shortness of breath, wheezing Cardiovascular: negative for chest pain, chest pressure/discomfort, lower extremity edema, palpitations Gastrointestinal: +abdominal pain, +constipation,- diarrhea, -nausea,-vomiting Neurological: negative for dizziness, headache Medications: Allergies: Allergies Allergen Reactions Prochlorperazine Valsartan Current Meds: Scheduled Meds: lidocaine 1 % injection 5 mL Intradermal Once sodium chloride flush 10 mL Intravenous 2 times per day famotidine (PEPCID) injection 20 mg Intravenous BID metoprolol 2.5 mg Intravenous Q8H ketorolac 15 mg Intravenous Q6H metoclopramide 5 mg Intravenous Q6H therapeutic multivitamin-minerals 1 tablet Oral Daily enoxaparin 40 mg Subcutaneous Daily sodium chloride flush 10 mL Intravenous 2 times per day influenza virus vaccine 0.5 mL Intramuscular Prior to discharge Continuous Infusions: dextrose 5 % and 0.9 % NaCl 125 mL/hr at 04/05/20 0637 PRN Meds: sodium chloride flush, labetalol, HYDROmorphone, sodium chloride flush, [DISCONTINUED] potassium chloride OR potassium alternative oral replacement OR potassium chloride, magnesium sulfate, promethazine OR ondansetron, nicotine, acetaminophen OR acetaminophen Data: Past Medical History: has a past medical history of Chronic pain syndrome and Essential hypertension. Social History: reports that he has never smoked. He has never used smokeless tobacco. He reports that he does not drink alcohol or use drugs. Family History: Family History Problem Relation Age of Onset No Known Problems Mother Hypertension Father Heart Attack Father at the age of 58 from heart attack Coronary Art Dis Father Cancer Maternal Grandfather Unknown Vitals: BP (!) 124/95 Pulse 86 Temp 97.6 F (36.4 C) (Oral) Resp 13 Ht 5' 10 (1.778 m) Wt 190 lb 0.6 oz (86.2 kg) SpO2 100% BMI 27.27 kg/m Temp (24hrs), Av F (36.7 C), Min:97.6 F (36.4 C), Max:98.8 F (37.1 C) Recent Labs 04/03/20 1526 04/04/20 0300 04/04/20 0609 04/05/20 0421 POCGLU 79 128* 93 99 I/O (24Hr): Intake/Output Summary (Last 24 hours) at 04/05/2020 0903 Last data filed at 04/05/2020 0526 Gross per 24 hour Intake 3212 ml Output 444 ml Net 2768 ml Labs: Hematology: Recent Labs 04/03/20 0730 04/04/20 0609 04/05/20 0809 WBC 4.5 7.4 5.3 RBC 4.12* 4.94 3.55* HGB 9.3* 11.1* 8.1* HCT 32.3* 38.1* 28.5* MCV 78.4* 77.1* 80.3* MCH 22.6* 22.5* 22.8* MCHC 28.8 29.1 28.4 RDW 24.1* 24.1* 24.0* PLT 498* 499* 370 MPV 9.5 9.7 10.2 Chemistry: Recent Labs 04/03/20 0730 04/03/20 1458 04/04/20 0609 NA 135 -- 133* K 3.6* -- 4.2 CL 103 -- 103 CO2 22 -- 24 GLUCOSE 76 -- 105* BUN 12 -- 15 CREATININE 0.38* -- 0.44* MG -- 2.3 -- ANIONGAP 10 -- 6* LABGLOM >60 -- >60 GFRAA >60 -- >60 CALCIUM 7.0* -- 7.4* Recent Labs 04/03/20 1448 04/03/20 1526 04/04/20 0300 04/04/20 0609 04/05/20 0421 POCGLU 62* 79 128* 93 99 ABG:No results found for: POCPH, PHART, PH, POCPCO2, NRC0NQS, PCO2, POCPO2, PO2ART, PO2, POCHCO3, AGG8FNI, HCO3, NBEA, PBEA, BEART, BE, THGBART, THB, [id number], [id number], [id number], O2SAT, FIO2 Lab Results Component Value Date/Time SPECIAL NOT REPORTED 04/03/2020 11:44 AM Lab Results Component Value Date/Time CULTURE NO GROWTH 04/03/2020 11:44 AM Radiology: No results found. Physical Examination: General appearance: alert, cooperative and no distress, pale Mental Status: oriented to person, place and time and normal affect Lungs: clear to auscultation bilaterally, normal effort Heart: regular rate and rhythm, no murmur Abdomen: Flat, soft, nontender, nondistended, hypoactive bowel sounds all try, midline abdominal wound VAC, left lower quadrant FREDDIE drains x2 extremities: +1 left lower extremity nonpitting edema, -redness,- tenderness in the calves Skin: Pale, no gross lesions, rashes, induration, midline wound VAC, FREDDIE drains x2 left lower quadrant Assessment: Hospital Problems Last Modified POA * (Principal) SBO (small bowel obstruction) ([facility]) 04/03/2020 Yes Severe protein-calorie malnutrition (HCC) 04/01/2020 Yes Esophageal dysphagia 04/01/2020 Yes Iron deficiency anemia 04/01/2020 Yes Essential hypertension 04/02/2020 Yes Plan: 1. Small bowel obstruction: Status post diagnostic lap converted to open exploratory laparotomy with lysis of adhesions, history of Lauren-en-Y gastric bypass with general surgery. Return to the OR on 04/03 for exploratory lap and push EGD. Patient will need TPN 2. severe protein calorie malnutrition: Continue vitamin supplementation, 3. Postoperative constipation: Medications as ordered, encourage ambulation 4. GI/DVT prophylaxis: lovenox, Pepcid 5. PT, OT 6. Replace electrolytes as indicated Arlyn Villegas APRN - JC 04/05/2020 9:03 AM Associated attestation - Dinesh Burgess MD - 04/05/2020 5:32 PM EST Attending Supervising Physician s Attestation Statement I have seen and examined Sabina Espinoza and the chapin elements of all parts of the encounter have been performed by me. I agree with the assessment, plan and orders as documented by the Advanced PracticeProvider. I discussed the findings and plans with the nurse practitioner and agree as documented inher note . Additional Comments: plans to start TPN per surgery. Patient consented for PICC. Awaiting return ofbowel function. * Arlyn Tillman MD - 04/05/2020 8:08 AM EST PROGRESS NOTE PATIENT NAME: Sabina Espinoza DATE: 04/05/2020 PRIMARY CARE PHYSICIAN: No primary care provider on file. HD: # 7 ASSESSMENT Patient Active Problem List Diagnosis SBO (small bowel obstruction) (HCC) Severe protein-calorie malnutrition (HCC) Esophageal dysphagia Iron deficiency anemia Essential hypertension MEDICAL DECISION MAKING AND PLAN 1. Continue medical management per primary 2. Minimally invasive surgery on board - will continue postoperative care at this time 3. No further Acute Care surgical needs, ACS will sign off at this time SUBJECTIVE Sabina Espinoza Seen and examined at bedside. No acute events overnight. HR improved. NG with minimal output last 24 hours. FREDDIE drains with 25cc (LUQ) and 10cc (LLQ). UOP marginal overnight. OBJECTIVE VITALS: Temp: Temp: 97.8 F (36.6 C)Temp Av.1 F (36.7 C) Min: 97.8 F (36.6 C) Max: 98.8 F (37.1C) BP Systolic (24hrs), Av , Min:115 , Max:144 Diastolic (24hrs), Av, Min:85, Max:105 Pulse Pulse Av.1 Min: 83 Max: 117 Resp Resp Av.7 Min: 6 Max: 18 Pulse ox SpO2 Av.3 %Min: 93 % Max: 100 % CONSTITUTIONAL: awake, cooperative, no apparent distress HEAD: atraumatic, normocephalic EYES: sclera clear, pupils equal and reactive to light ENT: ears are symmetric, nares patent HEENT: moist mucous membranes NECK: Supple, symmetrical, trachea midline LUNGS: no respiratory distress, no audible wheezing CARDIOVASCULAR: RRR ABDOMEN: soft, nontender, nondistended, FREDDIE drains in place with minimal SS output, prevena in placeno significant output MUSCULOSKELETAL: full passive range of motion noted EXTREMITIES: peripheral pulses normal, no pedal edema, no calf tenderness SKIN: normal coloration and turgor I/O last 3 completed shifts: In: 3674 [I.V.:3674] Out: 509 [Urine:374; Emesis/NG output:100; Drains:35] Drain/tube output: In: 2791 [I.V.:2791] Out: 319 [Urine:234; Drains:35] LAB: CBC: Recent Labs 04/03/20 0730 04/04/20 0609 WBC 4.5 7.4 HGB 9.3* 11.1* HCT 32.3* 38.1* MCV 78.4* 77.1* PLT 498* 499* BMP: Recent Labs 04/03/20 0730 04/04/20 0609 NA 135 133* K 3.6* 4.2 CL 103 103 CO2 22 24 BUN 12 15 CREATININE 0.38* 0.44* GLUCOSE 76 105* COAGS: No results for input(s): APTT, PROT, INR in the last 72 hours. Arlyn Tillman 04/05/20, 8:09 AM * CarrilloFiliberto A, DO - 04/05/2020 6:40 AM EST General Surgery: Daily Progress Note PATIENT NAME: Sabina Espinoza TODAY'S DATE: 04/05/2020, 6:41 AM SUBJECTIVE: Pt seen and examined at bedside this morning. No acute events overnight. Afebrile. Tolerated ice chips. No nausea or vomiting. Heart rate improved, mid 80s this morning. 171 mL output of urine overnight. Patient denies any flatus or bowel movement. OBJECTIVE: VITALS: BP (!) 121/92 Pulse 83 Temp 97.8 F (36.6 C) (Oral) Resp 12 Ht 5' 10 (1.778 m) Wt190 lb 0.6 oz (86.2 kg) SpO2 99% BMI 27.27 kg/m INTAKE/OUTPUT: Intake/Output Summary (Last 24 hours) at 04/05/2020 0641 Last data filed at 04/05/2020 0526 Gross per 24 hour Intake 3674 ml Output 509 ml Net 3165 ml PHYSICAL EXAM: General Appearance: awake, alert, oriented, in no acute distress HEENT: Normocephalic, atraumatic, mucus membranes moist Skin: Skin color, texture, turgor normal. No rashes or lesions. Lungs: No chest wall tenderness. Heart: Heart regular rate and rhythm Abdomen: Soft, minimal distention, nontender, no peritoneal signs, no rebound tenderness Extremities: Extremities warm to touch, pink, with no edema. Data: CBC with Differential: Lab Results Component Value Date WBC 7.4 04/04/2020 RBC 4.94 04/04/2020 HGB 11.1 04/04/2020 HCT 38.1 04/04/2020 PLT 499 04/04/2020 MCV 77.1 04/04/2020 MCH 22.5 04/04/2020 MCHC 29.1 04/04/2020 RDW 24.1 04/04/2020 LYMPHOPCT 15 04/04/2020 MONOPCT 15 04/04/2020 BASOPCT 0 04/04/2020 MONOSABS 1.11 04/04/2020 LYMPHSABS 1.11 04/04/2020 EOSABS 0.00 04/04/2020 BASOSABS 0.00 04/04/2020 DIFFTYPE NOT REPORTED 04/04/2020 BMP: Lab Results Component Value Date NA 133 04/04/2020 K 4.2 04/04/2020 CL 103 04/04/2020 CO2 24 04/04/2020 BUN 15 04/04/2020 LABALBU 1.8 04/02/2020 CREATININE 0.44 04/04/2020 CALCIUM 7.4 04/04/2020 GFRAA >60 04/04/2020 LABGLOM >60 04/04/2020 GLUCOSE 105 04/04/2020 ASSESSMENT: Active Hospital Problems Diagnosis Date Noted Essential hypertension [I10] 04/02/2020 Severe protein-calorie malnutrition (HCC) [E43] 03/30/2020 Esophageal dysphagia [R13.10] 03/30/2020 Iron deficiency anemia [D50.9] 03/30/2020 SBO (small bowel obstruction) (HCC) [K56.609] 03/29/2020 1. 39 y.o. male with history of Lauren-en-Y gastric bypass with severe protein calorie malnutrition. Status post diagnostic lap converted to open on 03/30. 04/03 exploratory laparotomy with EGD and push endoscopy with lysis of adhesions, application of Prevena wound VAC, FREDDIE drains x2 Plan: 1. Patient seen examined at bedside this morning. 2. Remain n.p.o., okay for few ice chips. 3. Continue Reglan every 6 hours 4. Will consult PICC team today for PICC placement, start TPN 5. Encourage patient to be out of bed to ambulate more today. 6. Keep Carlson in place to monitor strict intake and output. 7. Encourage incentive spirometer use. 8. Continue medical management per primary team. Associated attestation - Daniel Moyer DO - 04/06/2020 5:32 PM EST I have discussed the care of the patient, including pertinent history and exam findings, with the resident. I have seen and examined the patient and the chapin elements of all parts of the encounter have been performed by me. I agree with the assessment, plan and orders as documented by the resident. * Dinesh Burgess MD - 04/04/2020 11:04 AM EST [facility] Office: [phone] Peña Billings DO, Ady Shine, DO, Houston Cooper DO, Darell Krueger, DO, Elena Allison MD, Hannah Rodrigues MD, Murphy Ball MD, Shraddha Hamm MD, Hipolito Rodriguez MD, Jannette Albert MD, MD Asher, Flor Donnelly MD, Elayne Cleaning MD, Nate Bone DO, Lopez Garcia MD, Gustavo Morillo MD, Fabricio Mo DO, Rosalio Green MD, Jose Bello DO, Gaurav Lopez MD, MD Sam, Latonia Chavez, CORK INSULATOR, Eliz Esquivel, CORK INSULATOR, Suzy Wu, CORK INSULATOR, Blanche Desouza, LOFTER,Edgar Staton, CORK INSULATOR, Suyapa Almaguer, CORK INSULATOR, Cathy Ling, CORK INSULATOR, Loan Richardson, CORK INSULATOR, Hever Tomlinson, CORK INSULATOR, SARAH HartleyC, Arlyn Villegas, DOMINIQUE, Yuki Orosco, CORK INSULATOR, Deneen Stone, CORK INSULATOR, Leandra Rich, CORK INSULATOR, Lazara Ballesteros, CORK INSULATOR, Sapphire Rivera, CORK INSULATOR [facility] IN-PATIENT SERVICE [facility] Progress Note 04/04/2020 11:04 AM Name: Sabina Espinoza Acct: [id number] Room: 0174/0174-01 Day: 6 Admit Date: 03/29/2020 10:04 PM PCP: No primary care provider on file. Code Status: Full Code Subjective: C/C: abdominal pain Interval History Status: No issues overnight Pain controlled Plans for possible TPN per surgery Transfer out of ICU Discussed with RN Brief History: Sabina Espinoza is a 39 y.o. Non-/non male who presents with nausea and vomiting and isadmitted to the hospital for the management of intestinal obstruction. Patient presents to the [facility] emergency room for the complaint of abdominal pain nausea and vomiting. Patient states that his nausea and vomiting is chronic and the abdominal pain is intermittently chronic and he has had multiple work-ups in the past with dilation of the esophagus and scopes by his previous GI provider and did not find a source. Patient states that he has had a significant 50 pound weight loss in the past 4 to 5 months secondary to not being able to keep any food down or ingest food. Patient states that he just got tired of throwing up and being nauseated so he decided to seek treatment in the emergency room today While at the outlying emergency room it was noted on his CT he had a small bowel obstruction at theproximal to mid colon, he was medicated with IV pain medications and Zofran and recommended for admission however there are no beds in the [facility] facilities therefore he was transferred to [facility]. Date of Procedure: 03/30/2020 Pre-Op Diagnosis: INTERNAL HERNIA Post-Op Diagnosis: Adhesions, partial small bowel obstruction Procedure(s): DIAGNOSTIC LAPAROSCOPY, LAPAROTOMY LYSIS OF ADHESIONS Date of Procedure: 04/03/2020 Pre-Op Diagnosis: SMALL BOWEL OBSTRUCTION Post-Op Diagnosis: Same Procedure(s): LAPAROTOMY EXPLORATORY, EGD, PREVENA WOUND VAC, PUSH ENDOSCOPY, LYSIS OF ADHESIONS Review of Systems: Constitutional: negative for chills, fevers, sweats Respiratory: negative for cough, dyspnea on exertion, shortness of breath, wheezing Cardiovascular: negative for chest pain, chest pressure/discomfort Gastrointestinal: Positive for abd pain Neurological: negative for dizziness, headache Medications: Allergies: Allergies Allergen Reactions Prochlorperazine Valsartan Current Meds: Scheduled Meds: famotidine (PEPCID) injection 20 mg Intravenous BID metoprolol 2.5 mg Intravenous Q8H ketorolac 15 mg Intravenous Q6H metoclopramide 5 mg Intravenous Q6H therapeutic multivitamin-minerals 1 tablet Oral Daily enoxaparin 40 mg Subcutaneous Daily sodium chloride flush 10 mL Intravenous 2 times per day influenza virus vaccine 0.5 mL Intramuscular Prior to discharge Continuous Infusions: dextrose 5 % and 0.9 % NaCl 125 mL/hr at 04/04/20 1104 PRN Meds: labetalol, HYDROmorphone, sodium chloride flush, [DISCONTINUED] potassium chloride ORpotassium alternative oral replacement OR potassium chloride, magnesium sulfate, promethazine OR ondansetron, nicotine, acetaminophen OR acetaminophen Data: Past Medical History: has a past medical history of Chronic pain syndrome and Essential hypertension. Social History: reports that he has never smoked. He has never used smokeless tobacco. He reports that he does not drink alcohol or use drugs. Family History: Family History Problem Relation Age of Onset No Known Problems Mother Hypertension Father Heart Attack Father at the age of 58 from heart attack Coronary Art Dis Father Cancer Maternal Grandfather Unknown Vitals: BP (!) 129/105 Pulse 111 Temp 98.4 F (36.9 C) (Oral) Resp (!) 6 Ht 5' 10 (1.778 m) Wt 167 lb 1.7 oz (75.8 kg) SpO2 96% BMI 23.98 kg/m Temp (24hrs), Av.1 F (36.2 C), Min:96.2 F (35.7 C), Max:99.6 F (37.6 C) Recent Labs 04/03/20 1448 04/03/20 1526 04/04/20 0300 04/04/20 0609 POCGLU 62* 79 128* 93 I/O (24Hr): Intake/Output Summary (Last 24 hours) at 04/04/2020 1104 Last data filed at 04/04/2020 1000 Gross per 24 hour Intake 7235 ml Output 626 ml Net 6609 ml Labs: Hematology: Recent Labs 04/02/20 0301 04/03/20 0730 04/04/20 0609 WBC 5.6 4.5 7.4 RBC 4.39 4.12* 4.94 HGB 9.6* 9.3* 11.1* HCT 33.8* 32.3* 38.1* MCV 77.0* 78.4* 77.1* MCH 21.9* 22.6* 22.5* MCHC 28.4 28.8 29.1 RDW 23.6* 24.1* 24.1* PLT 453 498* 499* MPV 9.4 9.5 9.7 Chemistry: Recent Labs 04/02/20 0301 04/03/20 0730 04/03/20 1458 04/04/20 0609 NA 135 135 -- 133* K 3.9 3.6* -- 4.2 CL 107 103 -- 103 CO2 22 22 -- 24 GLUCOSE 82 76 -- 105* BUN 13 12 -- 15 CREATININE 0.43* 0.38* -- 0.44* MG -- -- 2.3 -- ANIONGAP 6* 10 -- 6* LABGLOM >60 >60 -- >60 GFRAA >60 >60 -- >60 CALCIUM 7.5* 7.0* -- 7.4* Recent Labs 04/02/20 0301 04/03/20 1448 04/03/20 1526 04/04/20 0300 04/04/20 0609 PROT 4.9* -- -- -- -- LABALBU 1.8* -- -- -- -- AST 103* -- -- -- -- ALT 56* -- -- -- -- ALKPHOS 232* -- -- -- -- BILITOT 0.23* -- -- -- -- POCGLU -- 62* 79 128* 93 ABG:No results found for: POCPH, PHART, PH, POCPCO2, MVD9UDA, PCO2, POCPO2, PO2ART, PO2, POCHCO3, TXV6FTP, HCO3, NBEA, PBEA, BEART, BE, THGBART, THB, [id number], [id number], [id number], O2SAT, FIO2 Lab Results Component Value Date/Time SPECIAL NOT REPORTED 04/03/2020 11:44 AM Lab Results Component Value Date/Time CULTURE CULTURE IN PROGRESS 04/03/2020 11:44 AM Radiology: Ct Abdomen Pelvis Wo Contrast Additional Contrast? None Result Date: 04/02/2020 1. Postoperative pneumoperitoneum which is from recent abdominal surgery secondary to a small bowelobstruction. There is increased distension of distended small bowel loops in the left abdomen whichmeasure up to 7 cm in caliber, consistent with an ongoing mid small bowel obstruction. 2. Increased distention of the right colon with the cecum measuring up to 8 cm and fecalization of the terminal ileum. This could be related to a postoperative ileus. 3. Small free fluid in the lower abdomen and pelvis which is either reactive to the bowel obstruction or related to the recent surgery. No evidence of an abscess. 4. Status post gastric bypass. 5. Soft tissue anasarca, new from the prior exam. 6. Hepatic steatosis. Results of this examination were verbally discussed with the patient's nurse, Loni Epps, at 5:54 p.m. on 04/02/2020. Xr Abdomen (kub) (single Ap View) Result Date: 04/02/2020 Moderate distention of the ascending, transverse and proximal descending colon with a large amount of stool and residual contrast within the colon. Fl Ugi W Small Bowel Result Date: 04/03/2020 Markedly dilated proximal small bowel corresponding to findings on recent CT. Us Retroperitoneal Complete Result Date: 04/02/2020 1. Mild increased echogenicity and dirty shadowing artifact extending from the anterior aspect of the urinary bladder which could be related to gas in the urinary bladder or anterior urinary bladder wall. Emphysematous cystitis difficult to exclude on the basis of this examination. Correlation with urinalysis and possible CT would be beneficial if clinically indicated. 2. Exam limited by bowel gas and rib shadowing. No hydronephrosis. Trace right-sided perinephric fluid. 3. Nonvisualization of ureteral jets. Small amount of free fluid in the lower abdomen. The findings were sent to the Radiology Results Communication Center at 3:22 pm on 04/02/2020to be communicated to a licensed caregiver. Physical Examination: General appearance: alert, cooperative and no distress, NG in place Mental Status: oriented to person, place and time and normal affect Lungs: clear to auscultation bilaterally, normal effort Heart: regular rate and rhythm Abdomen: soft, tender, drains in place Extremities: no edema, redness, tenderness in the calves Skin: no gross lesions, rashes, induration Assessment: Hospital Problems Last Modified POA * (Principal) SBO (small bowel obstruction) (HCC) 04/03/2020 Yes Severe protein-calorie malnutrition (HCC) 04/01/2020 Yes Esophageal dysphagia 04/01/2020 Yes Iron deficiency anemia 04/01/2020 Yes Essential hypertension 04/02/2020 Yes Plan: - Vitals, labs, imaging, medications reviewed - Surgery following - s/p ex lap and MAME (03/30) - repeat OR (04/03) - Continue NG - Diet per surgery - Pain control - ICU monitoring overnight, surgical CC consulted - Case discussed with Dr Moyer yesterday - Plans for TPN per surgery - Transfer out of ICU Dinesh Burgess MD 04/04/2020 11:04 AM * Saranya Patel, DO - 04/04/2020 8:12 AM EST General Surgery: Daily Progress Note PATIENT NAME: Sabina Espinoza TODAY'S DATE: 04/04/2020, 8:12 AM SUBJECTIVE: Pt seen and examined at bedside this morning. Complaining of abdominal pain this morning. Denies flatus or bm. Denies nausea. Remains tachycardic overnight. Urine output adequate. OBJECTIVE: VITALS: BP (!) 150/119 Pulse 120 Temp 98.4 F (36.9 C) (Oral) Resp 9 Ht 5' 10 (1.778 m) Wt 167 lb 1.7 oz (75.8 kg) SpO2 96% BMI 23.98 kg/m INTAKE/OUTPUT: Intake/Output Summary (Last 24 hours) at 04/04/2020 08 Last data filed at 04/04/2020 0752 Gross per 24 hour Intake 7235 ml Output 616 ml Net 6619 ml PHYSICAL EXAM: General Appearance: awake, alert, oriented, in no acute distress HEENT: Normocephalic, atraumatic, mucus membranes moist Skin: Skin color, texture, turgor normal. No rashes or lesions. Lungs: No chest wall tenderness. Heart: Heart regular rate and rhythm Abdomen: soft, generalized tenderness to palpation, non peritoneal. FREDDIE drain x 2 with sanguinous fluid. NGT with minimal output. Extremities: Extremities warm to touch, pink, with no edema. Data: CBC with Differential: Lab Results Component Value Date WBC 7.4 04/04/2020 RBC 4.94 04/04/2020 HGB 11.1 04/04/2020 HCT 38.1 04/04/2020 PLT 499 04/04/2020 MCV 77.1 04/04/2020 MCH 22.5 04/04/2020 MCHC 29.1 04/04/2020 RDW 24.1 04/04/2020 LYMPHOPCT 15 04/04/2020 MONOPCT 15 04/04/2020 BASOPCT 0 04/04/2020 MONOSABS 1.11 04/04/2020 LYMPHSABS 1.11 04/04/2020 EOSABS 0.00 04/04/2020 BASOSABS 0.00 04/04/2020 DIFFTYPE NOT REPORTED 04/04/2020 BMP: Lab Results Component Value Date NA 133 04/04/2020 K 4.2 04/04/2020 CL 103 04/04/2020 CO2 24 04/04/2020 BUN 15 04/04/2020 LABALBU 1.8 04/02/2020 CREATININE 0.44 04/04/2020 CALCIUM 7.4 04/04/2020 GFRAA >60 04/04/2020 LABGLOM >60 04/04/2020 GLUCOSE 105 04/04/2020 ASSESSMENT: Active Hospital Problems Diagnosis Date Noted Essential hypertension [I10] 04/02/2020 Severe protein-calorie malnutrition (HCC) [E43] 03/30/2020 Esophageal dysphagia [R13.10] 03/30/2020 Iron deficiency anemia [D50.9] 03/30/2020 SBO (small bowel obstruction) (HCC) [K56.609] 03/29/2020 39 y.o. male postop status post 03/30: diagnostic lap converted to open, history of Lauren-en-Y gastric bypass, severe protein calorie malnutrition 04/03: Ex lap, EGD and push endoscopy, lysis of adhesions, Prevena wound vac placed, FREDDIE x 2 Plan: 1. NPO until bowel function noted. 2. Reglan q 6 hours 3. SICU consulted - appreciate recommendations 4. Keep carlson - marginal UO 5. Up out of bed today 6. Patient would benefit from TPN, PICC placement tomorrow 7. Lopressor scheduled 8. Continue to use incentive spirometer. Associated attestation - Daniel Moyer DO - 04/04/2020 12:55 PM EST I have discussed the care of the patient, including pertinent history and exam findings, with the resident. I have seen and examined the patient and the chapin elements of all parts of the encounter have been performed by me. I agree with the assessment, plan and orders as documented by the resident. Patient updated to OR findings Appreciate SICU care Ok for step down Monitor UO, suspect secondary to fluid loss during OR No advancement of diet, just Ice chips TPN tomorrow * Deneen Gonzales DO - 04/04/2020 12:10 AM EST Post Op Note SUBJECTIVE Pt s/p ex lap, EGD, push endoscopy, MAME, Prevena wound VAC placement. Patient admitted to TICU s/p OR for increased level care. Reduced urine output from baseline from 1.3 to 0.2 mL/kg/hr. Given 2 boluses LR and on maintenance D5 in LR. Boluses picked up UOP slightly. Reports significant but expected abdominal pain, currently on IV MMT. Currently n.p.o. VSS, afebrile, T-max 99.6. OBJECTIVE VITALS: BP (!) 164/130 Pulse 120 Temp 99.6 F (37.6 C) (Oral) Resp 10 Ht 5' 10 (1.778 m) Wt 167 lb 1.7 oz (75.8 kg) SpO2 98% BMI 23.98 kg/m GENERAL: awake and alert. No acute distress CARDIOVASCULAR: tachycardic with regular rhythm LUNGS: Unlabored breathing on 3L NC ABDOMEN: Abdomen softly tender, non-distended, Carmen in place, [address] with serosanguineous fluid INCISION: Covered with Prevena wound VAC ASSESSMENT 1. POD# 1 s/p ex lap, EGD, push endoscopy, MAME, Prevena wound VAC placement. PLAN 1. Continue to monitor I&O's. Carlson to remain in. 2. Pain: MMT 3. N.p.o. for foreseeable future, likely PICC line placement Thursday 04/05 for TPN Deneen Gonzales, PGY1 Surgery Department * Dinesh Burgess MD - 04/03/2020 4:30 PM EST [facility] Office: [phone] Peña Billings DO, Ady Shine DO, Houston Cooper DO, Darell Krueger DO, Elena Allison MD, Hannah Rodrigues MD, Murphy Ball MD, Shraddha Hamm MD, Hipolito Rodriguez MD, Jannette Albert MD, MD Asher, Flor Donnelly MD, Elayne Cleaning MD, Nate Bone DO, Lopez Garcia MD, Gustavo Morillo MD, Fabricio Mo, DO, Rosalio Green MD, Jose Bello, DO, Gaurav Lopez MD, MD Sam, Latonia Chavez, CORK INSULATOR, Eliz Esquivel, CORK INSULATOR, Suzy Wu, CORK INSULATOR, Blanche Desouza, LOFTER,Edgar Staton, CORK INSULATOR, Suyapa Almaguer, CORK INSULATOR, Cathy Ling, CORK INSULATOR, Loan Richardson, CORK INSULATOR, Hever Tomlinson, CORK INSULATOR, Niki Badillo PA-C, Arlyn Villegas DNP, Yuki Orosco, CORK INSULATOR, Deneen Stone, CORK INSULATOR, Leandra Rich, CORK INSULATOR, Lazara Ballesteros CNP, Sapphire Rivera, CORK INSULATOR [facility] IN-PATIENT SERVICE [facility] Progress Note 04/03/2020 4:30 PM Name: Sabina Espinoza Acct: [id number] Room: [facility] Day: 5 Admit Date: 03/29/2020 10:04 PM PCP: No primary care provider on file. Code Status: Full Code Subjective: C/C: abdominal pain Interval History Status: worsened. Underwent upper GI series this AM Demonstrating obstruction Repeat OR today per surgery Case discussed with Dr Moyer Seen post op in ICU Pain currently controlled Ng in place Brief History: Sabina Espinoza is a 39 y.o. Non-/non male who presents with nausea and vomiting and isadmitted to the hospital for the management of intestinal obstruction. Patient presents to the [facility] emergency room for the complaint of abdominal pain nausea and vomiting. Patient states that his nausea and vomiting is chronic and the abdominal pain is intermittently chronic and he has had multiple work-ups in the past with dilation of the esophagus and scopes by his previous GI provider and did not find a source. Patient states that he has had a significant 50 pound weight loss in the past 4 to 5 months secondary to not being able to keep any food down or ingest food. Patient states that he just got tired of throwing up and being nauseated so he decided to seek treatment in the emergency room today While at the outlying emergency room it was noted on his CT he had a small bowel obstruction at theproximal to mid colon, he was medicated with IV pain medications and Zofran and recommended for admission however there are no beds in the [facility] facilities therefore he was transferred to [facility]. Date of Procedure: 03/30/2020 Pre-Op Diagnosis: INTERNAL HERNIA Post-Op Diagnosis: Adhesions, partial small bowel obstruction Procedure(s): DIAGNOSTIC LAPAROSCOPY, LAPAROTOMY LYSIS OF ADHESIONS Date of Procedure: 04/03/2020 Pre-Op Diagnosis: SMALL BOWEL OBSTRUCTION Post-Op Diagnosis: Same Procedure(s): LAPAROTOMY EXPLORATORY, EGD, PREVENA WOUND VAC, PUSH ENDOSCOPY, LYSIS OF ADHESIONS Review of Systems: Constitutional: negative for chills, fevers, sweats Respiratory: negative for cough, dyspnea on exertion, shortness of breath, wheezing Cardiovascular: negative for chest pain, chest pressure/discomfort Gastrointestinal: Positive for abd pain Neurological: negative for dizziness, headache Medications: Allergies: Allergies Allergen Reactions Prochlorperazine Valsartan Current Meds: Scheduled Meds: famotidine (PEPCID) injection 20 mg Intravenous BID metoprolol 2.5 mg Intravenous Q8H metoclopramide 5 mg Intravenous Q6H therapeutic multivitamin-minerals 1 tablet Oral Daily enoxaparin 40 mg Subcutaneous Daily sodium chloride flush 10 mL Intravenous 2 times per day influenza virus vaccine 0.5 mL Intramuscular Prior to discharge Continuous Infusions: dextrose 5% in lactated ringers dextrose 100 mL/hr at 04/03/20 1523 sodium chloride 125 mL/hr at 04/03/20 0736 PRN Meds: labetalol, morphine OR morphine, sodium chloride flush, [DISCONTINUED] potassium chloride OR potassium alternative oral replacement OR potassium chloride, magnesium sulfate, promethazine OR ondansetron, nicotine, acetaminophen OR acetaminophen Data: Past Medical History: has a past medical history of Chronic pain syndrome and Essential hypertension. Social History: reports that he has never smoked. He has never used smokeless tobacco. He reports that he does not drink alcohol or use drugs. Family History: Family History Problem Relation Age of Onset No Known Problems Mother Hypertension Father Heart Attack Father at the age of 58 from heart attack Coronary Art Dis Father Cancer Maternal Grandfather Unknown Vitals: BP (!) 142/110 Pulse 93 Temp 97.3 F (36.3 C) (Oral) Resp 10 Ht 5' 10 (1.778 m) Wt 167 lb1.7 oz (75.8 kg) SpO2 100% BMI 23.98 kg/m Temp (24hrs), Av.1 F (36.2 C), Min:96.2 F (35.7 C), Max:99 F (37.2 C) Recent Labs 04/03/20 1448 04/03/20 1526 POCGLU 62* 79 I/O (24Hr): Intake/Output Summary (Last 24 hours) at 04/03/2020 1630 Last data filed at 04/03/2020 1530 Gross per 24 hour Intake 4611 ml Output 772 ml Net 3839 ml Labs: Hematology: Recent Labs 04/01/20 0804/02/20 03004/03/20 0730 WBC 7.9 5.6 4.5 RBC 4.35 4.39 4.12* HGB 9.5* 9.6* 9.3* HCT 33.9* 33.8* 32.3* MCV 77.9* 77.0* 78.4* MCH 21.8* 21.9* 22.6* MCHC 28.0* 28.4 28.8 RDW 23.8* 23.6* 24.1* PLT 455* 453 498* MPV 9.8 9.4 9.5 Chemistry: Recent Labs 04/01/20 0804/02/20 03004/03/20 0730 04/03/20 1458 NA 136 135 135 -- K 3.9 3.9 3.6* -- CL 106 107 103 -- CO2 23 22 22 -- GLUCOSE 86 82 76 -- BUN 15 13 12 -- CREATININE 0.59* 0.43* 0.38* -- MG -- -- -- 2.3 ANIONGAP 7* 6* 10 -- LABGLOM >60 >60 >60 -- GFRAA >60 >60 >60 -- CALCIUM 7.4* 7.5* 7.0* -- Recent Labs 04/02/20 03004/03/20 1448 04/03/20 1526 PROT 4.9* -- -- LABALBU 1.8* -- -- AST 103* -- -- ALT 56* -- -- ALKPHOS 232* -- -- BILITOT 0.23* -- -- POCGLU -- 62* 79 ABG:No results found for: POCPH, PHART, PH, POCPCO2, GQQ6TQF, PCO2, POCPO2, PO2ART, PO2, POCHCO3, ECR8SRP, HCO3, NBEA, PBEA, BEART, BE, THGBART, THB, OMG4HDX, GGMZ2CZS, Y0NRYEVY, O2SAT, FIO2 No results found for: SPECIAL No results found for: CULTURE Radiology: Ct Abdomen Pelvis Wo Contrast Additional Contrast? None Result Date: 04/02/2020 1. Postoperative pneumoperitoneum which is from recent abdominal surgery secondary to a small bowelobstruction. There is increased distension of distended small bowel loops in the left abdomen whichmeasure up to 7 cm in caliber, consistent with an ongoing mid small bowel obstruction. 2. Increased distention of the right colon with the cecum measuring up to 8 cm and fecalization of the terminal ileum. This could be related to a postoperative ileus. 3. Small free fluid in the lower abdomen and pelvis which is either reactive to the bowel obstruction or related to the recent surgery. No evidence of an abscess. 4. Status post gastric bypass. 5. Soft tissue anasarca, new from the prior exam. 6. Hepatic steatosis. Results of this examination were verbally discussed with the patient's nurse, Loni Epps, at 5:54 p.m. on 04/02/2020. Xr Abdomen (kub) (single Ap View) Result Date: 04/02/2020 Moderate distention of the ascending, transverse and proximal descending colon with a large amount of stool and residual contrast within the colon. Fl Ugi W Small Bowel Result Date: 04/03/2020 Markedly dilated proximal small bowel corresponding to findings on recent CT. Us Retroperitoneal Complete Result Date: 04/02/2020 1. Mild increased echogenicity and dirty shadowing artifact extending from the anterior aspect of the urinary bladder which could be related to gas in the urinary bladder or anterior urinary bladder wall. Emphysematous cystitis difficult to exclude on the basis of this examination. Correlation with urinalysis and possible CT would be beneficial if clinically indicated. 2. Exam limited by bowel gas and rib shadowing. No hydronephrosis. Trace right-sided perinephric fluid. 3. Nonvisualization of ureteral jets. Small amount of free fluid in the lower abdomen. The findings were sent to the Radiology Results Communication Center at 3:22 pm on 04/02/2020to be communicated to a licensed caregiver. Physical Examination: General appearance: alert, cooperative and no distress, NG in place Mental Status: oriented to person, place and time and normal affect Lungs: clear to auscultation bilaterally, normal effort Heart: regular rate and rhythm Abdomen: soft, tender, drains in place Extremities: no edema, redness, tenderness in the calves Skin: no gross lesions, rashes, induration Assessment: Hospital Problems Last Modified POA * (Principal) SBO (small bowel obstruction) ([facility]) 04/03/2020 Yes Severe protein-calorie malnutrition ([facility]) 04/01/2020 Yes Esophageal dysphagia 04/01/2020 Yes Iron deficiency anemia 04/01/2020 Yes Essential hypertension 04/02/2020 Yes Plan: - Vitals, labs, imaging, medications reviewed - Surgery following - s/p ex lap and MAME (03/30) - repeat OR today (04/03) - Continue NG - Diet per surgery - Pain control - ICU monitoring overnight, trauma consulted - Case discussed with Dr João Burgess MD 04/03/2020 4:30 PM * Kylie Parker, MIGUELITO - 04/03/2020 2:[address] Donnelly called with glucose 62, orders received. * Kvng Carpenter, MIGUELITO - 04/03/2020 2:46 PM EST Patient's belongings arrived from previous room. Belongings consist of: Coat, hooded sweater x2, pair of gloves, winter hat, t-shirt x2, sweat pants x2, shorts x2, pair ofshoes, pair of socks, cell phone and foreign clerk. Patient's belongings now in room 174. * Saranya Patel DO - 04/03/2020 10:27 AM EST Patient evaluated in GI. Small bowel distended and concerning for small bowel obstruction. Plan to take patient emergently to the OR for opening of recent laparotomy incision, possible bowel resection, and all indicated procedures. * Saranya Patel DO - 04/03/2020 8:05 AM EST General Surgery: Daily Progress Note PATIENT NAME: Sabina Espinoza TODAY'S DATE: 04/03/2020, 8:06 AM SUBJECTIVE: Pt seen and examined at bedside this morning. + bm overnight. Patient underwent CT scan which revealed multiple dilated loops of intestine. Patient denies nausea this morning but is tachycardic. No urination overnight. OBJECTIVE: VITALS: BP (!) 146/112 Comment: MIGUELITO Joseph aware Pulse 105 Temp 98.9 F (37.2 C) (Oral) Resp 15 Ht 5' 10 (1.778 m) Wt 155 lb 6.4 oz (70.5 kg) SpO2 96% BMI 22.30 kg/m INTAKE/OUTPUT: Intake/Output Summary (Last 24 hours) at 04/03/2020 0806 Last data filed at 04/03/2020 0710 Gross per 24 hour Intake 1711 ml Output 1150 ml Net 561 ml PHYSICAL EXAM: General Appearance: awake, alert, oriented, in no acute distress HEENT: Normocephalic, atraumatic, mucus membranes moist Skin: Skin color, texture, turgor normal. No rashes or lesions. Lungs: No chest wall tenderness. Heart: Heart regular rate and rhythm Abdomen: soft, minimal tenderness to palpation around incision, parris intact, no drainage noted. Incision clean, dry and intact. Extremities: Extremities warm to touch, pink, with no edema. Data: CBC with Differential: Lab Results Component Value Date WBC 5.6 04/02/2020 RBC 4.39 04/02/2020 HGB 9.6 04/02/2020 HCT 33.8 04/02/2020 PLT 453 04/02/2020 MCV 77.0 04/02/2020 MCH 21.9 04/02/2020 MCHC 28.4 04/02/2020 RDW 23.6 04/02/2020 LYMPHOPCT 10 04/01/2020 MONOPCT 11 04/01/2020 BASOPCT 0 04/01/2020 MONOSABS 0.87 04/01/2020 LYMPHSABS 0.79 04/01/2020 EOSABS 0.00 04/01/2020 BASOSABS 0.00 04/01/2020 DIFFTYPE NOT REPORTED 04/01/2020 BMP: Lab Results Component Value Date NA 135 04/02/2020 K 3.9 04/02/2020 CL 107 04/02/2020 CO2 22 04/02/2020 BUN 13 04/02/2020 LABALBU 1.8 04/02/2020 CREATININE 0.43 04/02/2020 CALCIUM 7.5 04/02/2020 GFRAA >60 04/02/2020 LABGLOM >60 04/02/2020 GLUCOSE 82 04/02/2020 ASSESSMENT: Active Hospital Problems Diagnosis Date Noted Essential hypertension [I10] 04/02/2020 Severe protein-calorie malnutrition (HCC) [E43] 03/30/2020 Esophageal dysphagia [R13.10] 03/30/2020 Iron deficiency anemia [D50.9] 03/30/2020 1. 39 y.o. male postop status post diagnostic lap converted to open, history of Lauren-en-Y gastric bypass, severe protein calorie malnutrition 03/30 Plan: 1. General diet as tolerated. Recommend supplements given as well 2. Continue reglan. 3. Encouraged pt to be OOB to ambulate more. 4. Try to limit narcotic use 5. Continue to use incentive spirometer. Associated attestation - Daniel Moyer, - 04/03/2020 10:43 AM EST Patient seen in radiology this morning. CT concerning overnight for a new obstruction. Yesterday morning he tolerated regular diet. States later in the day he developed new pain and nausea. No emesis. Patient had CT 6 days ago showing contrast in small bowel. KUB yesterday showed that contrast had progressed to the colon. However, new dilation on CT overnight UGI done this morning to try and delineate the limbs and source of new dilation. However, UGI this morning shows very dilated lauren limb. Patient on exam more tender today than yesterday. Uncertain ofsource of new obstruction, but suspect adhesions vs other. Given prior gastric bypass will return to OR as he has very dilated lauren limb now. Of note, the small bowel, lauren and BP limb were extremely abnormally dilated at last surgery from a chronic PSBO just past the jejunojejunostomy. * Jake Sparks RN - 04/03/2020 7:15 AM EST Assisted pt to bathroom, was able to ambulate, requested privacy. * Jake Sparks RN - 04/03/2020 7:12 AM EST Pt found kneeling on floor. Pt states he slipped while attempting to go to the bathroom. No visibleinjury observed, Dr. Burgess notified. * Jake Sparks RN - 04/02/2020 10:07 PM EST Soap suds enema given. * Kvng Hinojosa DO - 04/02/2020 8:33 PM EST Patient seen and examined. Discussed recent CT findings with Dr. Moyer and pt exam. At this timeplan for enema and cont monitoring. No NGT placement given surgical Hx. Pt NPO, ok for sips with meds. Discussed with RN. Thank you, * Vivi Almanzar, PT - 04/02/2020 11:53 AM EST Physical Therapy DATE: 04/02/2020 NAME: Sabina Espinoza : 1980 Patient not seen this date for Physical Therapy due to: [] Blood transfusion in progress [] Hemodialysis [] Patient Declined [] Spine Precautions [] Strict Bedrest [] Surgery/ Procedure [x] Testing--dopplers [] Other [] PT is being discontinued at this time. Patient independent. No further needs. [] PT is being discontinued at this time due to declining physical/ medical status. Therapy is not appropriate at this time. Vivi, Walker, PT * Mita Patterson, OT - 04/02/2020 10:50 AM EST Occupational Therapy Occupational Therapy Initial Assessment Date: 04/02/2020 Patient Name: Sabina Espinoza : 1980 Date of Service: 04/02/2020 Discharge Recommendations:No therapy recommended at discharge. Copied from Internal Medicine: Sabina Espinoza is a 39 y.o. Non-/non male who presents with nausea and vomiting and is admitted to the hospital for the management of intestinal obstruction. Patient presents to the [facility] emergency room for the complaint of abdominal pain nausea and vomiting. Patient states that his nausea and vomiting is chronic and the abdominal pain is intermittently chronic and he has had multiple work-ups in the past with dilation of the esophagus and scopes by his previous GI provider and did not find a source. Patient states that he has had a significant 50 pound weight loss in the past 4 to 5 months secondary to not being able to keep any food down or ingest food. Patient states that he just got tired of throwing up and being nauseated so he decided to seek treatment in the emergency room today While at the outlying emergency room it was noted on his CT he had a small bowel obstruction at theproximal to mid colon, he was medicated with IV pain medications and Zofran and recommended for admission however there are no beds in the [facility] facilities therefore he was transferred to [facility]. 03/30 diagnostic lap converted to open exploratory laparotomy with lysis of adhesions, history of Lauren-en-Y gastric bypass with general surgery Diet advanced venofer started for SERENE Persistent postoperative constipation, mag citrate started Metoprolol and Norvasc for blood pressure support OT Equipment Recommendations Equipment Needed: (CTA) Assessment Pt lying supine in bed upon entrance to room. Pt completed bed mobility with I. Pt sat at eob 15 minutes with good unsupported sitting balance with forward flexed posture. Sit to stand with stand by assistance. Pt completed dynamic mob in room with stand by assistance. Please refer to below assist levels for adl completion. Pt ed on OT POC, safety awareness tech, proper hand placement for transfers, and energy conservation tech with proper breathing tech with good return. Pt with flat affect, reports being antisocial and likes to be by himself. Pt reports rarely leaves his parents home and likes to stay in bedroom most of the day. Pt retired supine in bed with call light and phone in reach.All needs met upon exit. Performance deficits / Impairments: Decreased high-level IADLs;Decreased endurance Treatment Diagnosis: SBO Prognosis: Good Decision Making: Low Complexity OT Education: Plan of Care;OT Role Patient Education: Pt ed on OT POC, safety awareness tech, proper hand placement for transfers, andenergy conservation tech with proper breathing tech with good return REQUIRES OT FOLLOW UP: Yes Safety Devices Safety Devices in place: Yes Type of devices: Call light within reach;Left in bed;Nurse notified Restraints Initially in place: No Patient Diagnosis(es): The encounter diagnosis was Post-op pain. has a past medical history of Chronic pain syndrome and Essential hypertension. has a past surgical history that includes Dilatation, esophagus; Cholecystectomy; Gastric bypass surgery; knee surgery (Right); Uvulopalatopharygoplasty; Tonsillectomy; laparotomy (01/29/2020); and la paroscopy (N/A, 03/30/2020). Treatment Diagnosis: SBO Restrictions Restrictions/Precautions Required Braces or Orthoses?: No Position Activity Restriction Other position/activity restrictions: up with assistance Subjective General Patient assessed for rehabilitation services?: Yes Family / Caregiver Present: No Patient Currently in Pain: Yes Pain Assessment Pain Assessment: 0-10 Pain Level: 8 Pain Type: Acute pain;Surgical pain Pain Location: Abdomen Non-Pharmaceutical Pain Intervention(s): Repositioned;Ambulation/Increased Activity;Therapeutic presence;Distraction Vital Signs Patient Currently in Pain: Yes Oxygen Therapy O2 Device: Nasal cannula O2 Flow Rate (L/min): 2 L/min Patient Observation Observations: 02 removed during mobility and reapplied once supine in bed Social/Functional History Social/Functional History Lives With: Family(parents-both in good health) Type of Home: House Home Layout: One level Home Access: Ramped entrance Bathroom Shower/Tub: Tub/Shower unit, Curtain Bathroom Toilet: Handicap height Bathroom Equipment: Grab bars in shower, Shower chair Home Equipment: Cane, Rolling walker(was not using any DME prior to admission) Receives Help From: Family(parents are retired and able to assist as needed) ADL Assistance: Independent Homemaking Assistance: Independent Homemaking Responsibilities: Yes Meal Prep Responsibility: No(mother cooks) Laundry Responsibility: Primary Cleaning Responsibility: Primary Bill Paying/Finance Responsibility: Primary Shopping Responsibility: Secondary(parents drive and run errnads. Pt reports does not go out of house much) Dependent Care Responsibility: Secondary(shared care of dog and cat) Ambulation Assistance: Independent Transfer Assistance: Independent Active Steam Powerplant Supervisor: No Patient's Steam Powerplant Supervisor Info: Parents drive Mode of Transportation: Family, Car Occupation: Unemployed Leisure & Hobbies: take the dog for a walk, work in the yard, decorate parents home for all theidays Objective Vision: Impaired(pt reports should be wearing glasses but does not have any) Hearing: Within functional limits Balance Sitting Balance: Independent Standing Balance: Stand by assistance Standing Balance Time: ~4 min Activity: static and dynamic Functional Mobility Functional - Mobility Device: No device(pushing IV pole) Assist Level: Stand by assistance Functional Mobility Comments: SBA for safety only Toilet Transfers Toilet - Technique: Ambulating Equipment Used: Grab bars Toilet Transfer: Stand by assistance Toilet Transfers Comments: SBA for safety only ADL Feeding: Independent;Setup Grooming: Independent;Setup UE Bathing: Independent;Setup LE Bathing: Stand by assistance;Setup UE Dressing: Independent;Setup LE Dressing: Stand by assistance;Setup Toileting: Independent Additional Comments: SBA for safety only Tone RUE RUE Tone: Normotonic Tone LUE LUE Tone: Normotonic Coordination Movements Are Fluid And Coordinated: Yes Bed mobility Rolling to Left: Independent Supine to Sit: Independent Sit to Supine: Independent(pt uses BUE's to bring LLE into bed) Scooting: Independent Transfers Stand Step Transfers: Stand by assistance Sit to stand: Stand by assistance Stand to sit: Stand by assistance Transfer Comments: SBA for safety only Cognition Overall Cognitive Status: WFL Sensation Overall Sensation Status: WFL(denies numbness/tingling B hands) LUE PROM (degrees) LUE PROM: WFL LUE AROM (degrees) LUE AROM : WFL Left Hand PROM (degrees) Left Hand PROM: WFL Left Hand AROM (degrees) Left Hand AROM: WFL RUE PROM (degrees) RUE PROM: WFL RUE AROM (degrees) RUE AROM : WFL Right Hand PROM (degrees) Right Hand PROM: WFL Right Hand AROM (degrees) Right Hand AROM: WFL LUE Strength Gross LUE Strength: WFL L Hand General: 4/5 LUE Strength Comment: antigravity WFL RUE Strength Gross RUE Strength: WFL R Hand General: 4/5 RUE Strength Comment: antigravity WFL Plan Plan Times per week: 1-3 tx sessions AM-PAC Score AM-PAC Inpatient Daily Activity Raw Score: 22 (04/02/20 1053) AM-PAC Inpatient ADL T-Scale Score : 47.1 (04/02/20 105) ADL Inpatient CMS 0-100% Score: 25.8 (04/02/201052) ADL Inpatient CMS G-Code Modifier : CJ (04/02/201052) Goals Short term goals Time Frame for Short term goals: Pt will, by discharge: Short term goal 1: Dem I with adl performance utilizing energy conservation tech Short term goal 2: Dem I with dynamic mobility/functional transfers for adl engagement with good safety awareness Short term goal 3: Dem a 20 min dynamic mobility task Merissa utilizing pursed lip breathing Therapy Time Individual Concurrent Group Co-treatment Time In 09 Time Out 0959 Minutes 30 Timed Code Treatment Minutes: 24 Minutes MITA PATTERSON OTR/L * Arlyn Villegas APRN - HYBRID TESTER - 04/02/2020 8:53 AM EST [facility] Office: [phone] Peña Billings DO, Ady Shine DO, Hosuton Cooper DO, Darell Krueger DO, Elena Allison MD, Hannah Rodrigues MD, Murphy Ball MD, Shraddha Hamm MD, Hipolito Rodriguez MD, Jannette Albert MD, MD Asher, Flor Donnelly MD, Elayne Cleaning MD, Nate Bone DO, Lopez Garcia MD, Gustavo Morillo MD, Fabricio Mo DO, Rosalio Green MD, Jose Bello DO, Gaurav Lopez MD, MD Sam, Latonia Chavez, CORK INSULATOR, Eliz Esquivel CNP, Suzy Wu CNP, Blanche Desouza, LOFTER,Edgar Staton, CORK INSULATOR, Suyapa Almaguer, CORK INSULATOR, Cathy Ling, CORK INSULATOR, Loan Richardson, CORK INSULATOR, Hever Tomlinson, CORK INSULATOR, Niki Badillo PA-C, Arlyn Villegas DNP, Yuki Orosco, CORK INSULATOR, Deneen Stone, CORK INSULATOR, Leandra Rich, CORK INSULATOR, Lazara Ballesteros, CORK INSULATOR, Sapphire Rivera, CORK INSULATOR [facility] IN-PATIENT SERVICE [facility] Progress Note 04/02/2020 10:44 AM Name: Sabina Espinoza Acct: [id number] Room: 0443/0443-01 Day: 4 Admit Date: 03/29/2020 10:04 PM PCP: No primary care provider on file. Code Status: Full Code Subjective: C/C: ABD pain Interval History Status: improved. Patient evaluated in room sitting in bed in no acute distress. Continues to have difficulty with constipation. X-ray reviewed demonstrating significant constipation. Mag citrate ordered. Norvasc started for blood pressure support Brief History: Per records: Sabina Espinoza is a 39 y.o. Non-/non male who presents with nausea and vomiting and isadmitted to the hospital for the management of intestinal obstruction. Patient presents to the [facility] emergency room for the complaint of abdominal pain nausea and vomiting. Patient states that his nausea and vomiting is chronic and the abdominal pain is intermittently chronic and he has had multiple work-ups in the past with dilation of the esophagus and scopes by his previous GI provider and did not find a source. Patient states that he has had a significant 50 pound weight loss in the past 4 to 5 months secondary to not being able to keep any food down or ingest food. Patient states that he just got tired of throwing up and being nauseated so he decided to seek treatment in the emergency room today While at the outlying emergency room it was noted on his CT he had a small bowel obstruction at theproximal to mid colon, he was medicated with IV pain medications and Zofran and recommended for admission however there are no beds in the [facility] facilities therefore he was transferred to [facility]. 03/30 diagnostic lap converted to open exploratory laparotomy with lysis of adhesions, history of Lauren-en-Y gastric bypass with general surgery Diet advanced venofer started for SERENE Persistent postoperative constipation, mag citrate started Metoprolol and Norvasc for blood pressure support Review of Systems: Constitutional: negative for chills, fevers, sweats Respiratory: negative for cough, dyspnea on exertion, shortness of breath, wheezing Cardiovascular: negative for chest pain, chest pressure/discomfort, lower extremity edema, palpitations Gastrointestinal: negative for abdominal pain, constipation, diarrhea, nausea, vomiting Neurological: negative for dizziness, headache Medications: Allergies: Allergies Allergen Reactions Prochlorperazine Valsartan Current Meds: Scheduled Meds: amLODIPine 10 mg Oral Daily magnesium citrate 296 mL Oral Once metoprolol tartrate 12.5 mg Oral BID metoclopramide 5 mg Intravenous Q6H magnesium hydroxide 30 mL Oral Daily famotidine 20 mg Oral Daily iron sucrose 100 mg Intravenous Q24H thiamine 100 mg Oral Daily vitamin B-12 100 mcg Oral Daily Vitamin D 1,000 Units Oral Daily therapeutic multivitamin-minerals 1 tablet Oral Daily enoxaparin 40 mg Subcutaneous Daily cyclobenzaprine 10 mg Oral BID sodium chloride flush 10 mL Intravenous 2 times per day influenza virus vaccine 0.5 mL Intramuscular Prior to discharge Continuous Infusions: sodium chloride 75 mL/hr at 04/01/201940 PRN Meds: oxyCODONE OR oxyCODONE, HYDROmorphone, sodium chloride flush, potassium chloride OR potassium alternative oral replacement OR potassium chloride, magnesium sulfate, promethazineOR ondansetron, polyethylene glycol, nicotine, acetaminophen OR acetaminophen Data: Past Medical History: has a past medical history of Chronic pain syndrome and Essential hypertension. Social History: reports that he has never smoked. He has never used smokeless tobacco. He reports that he does not drink alcohol or use drugs. Family History: Family History Problem Relation Age of Onset No Known Problems Mother Hypertension Father Heart Attack Father at the age of 58 from heart attack Coronary Art Dis Father Cancer Maternal Grandfather Unknown Vitals: BP (!) 141/107 Pulse 101 Temp 98.5 F (36.9 C) Resp 12 Ht 5' 10 (1.778 m) Wt 155 lb 6.4 oz (70.5 kg) SpO2 91% BMI 22.30 kg/m Temp (24hrs), Av.5 F (36.9 C), Min:98.1 F (36.7 C), Max:98.7 F (37.1 C) No results for input(s): POCGLU in the last 72 hours. I/O (24Hr): Intake/Output Summary (Last 24 hours) at 04/02/2020 1044 Last data filed at 04/01/2020 2341 Gross per 24 hour Intake Output 900 ml Net -900 ml Labs: Hematology: Recent Labs 03/31/20 0548 04/01/20 0817 04/02/20 0301 WBC 16.6* 7.9 5.6 RBC 4.37 4.35 4.39 HGB 9.7* 9.5* 9.6* HCT 33.2* 33.9* 33.8* MCV 76.0* 77.9* 77.0* MCH 22.2* 21.8* 21.9* MCHC 29.2 28.0* 28.4 RDW 23.1* 23.8* 23.6* PLT 493* 455* 453 MPV 10.1 9.8 9.4 Chemistry: Recent Labs 03/31/20 0548 04/01/20 0817 04/02/20 0301 NA 136 136 135 K 3.6* 3.9 3.9 CL 106 106 107 CO2 20 23 22 GLUCOSE 91 86 82 BUN 17 15 13 CREATININE 0.73 0.59* 0.43* ANIONGAP 10 7* 6* LABGLOM >60 >60 >60 GFRAA >60 >60 >60 CALCIUM 7.3* 7.4* 7.5* Recent Labs 04/02/20 0301 PROT 4.9* LABALBU 1.8* AST 103* ALT 56* ALKPHOS 232* BILITOT 0.23* ABG:No results found for: POCPH, PHART, PH, POCPCO2, WCU3SBM, PCO2, POCPO2, PO2ART, PO2, POCHCO3, MUH7BUS, HCO3, NBEA, PBEA, BEART, BE, THGBART, THB, HES4NVQ, UXHD1FCQ, Q9PMUVMB, O2SAT, FIO2 No results found for: SPECIAL No results found for: CULTURE Radiology: No results found. Physical Examination: General appearance: alert, cooperative and no distress Mental Status: oriented to person, place and time and normal affect Lungs: clear to auscultation bilaterally, normal effort Heart: regular rate and rhythm, no murmur Abdomen: soft, nontender, nondistended, normal bowel sounds, no masses, hepatomegaly, splenomegaly Extremities: +1 left lower extremity and left upper extremity edema, without redness, tenderness inthe calves Skin: pale, no gross lesions, rashes, induration, abdominal surgical incision site midline secured with parris, 3 Assessment: Hospital Problems Last Modified POA Severe protein-calorie malnutrition (HCC) 04/01/2020 Yes Esophageal dysphagia 04/01/2020 Yes Iron deficiency anemia 04/01/2020 Yes Essential hypertension 04/02/2020 Yes Plan: 1. Small bowel obstruction: Status post diagnostic lap converted to open exploratory laparotomy with lysis of adhesions, history of Lauren-en-Y gastric bypass with general surgery. Diet advanced to clear liquid diet to regular.tolerating well 2. Severe protein calorie malnutrition: Continue vitamin supplementation, 3. Postoperative constipation: Medications as ordered, encourage ambulation 4. Hypertension: continue medications as ordered, CLAIRE/ARB allergy noted 5. Left-sided upper and lower venous duplex for unilateral swelling 6. GI/DVT prophylaxis: lovenox, Pepcid 7. PT, OT 8. Replace electrolytes as indicated Arlyn Villegas APRN - JC 04/02/2020 10:44 AM Associated attestation - Dinesh Burgess MD - 04/02/2020 1:51 PM EST Attending Supervising Physician s Attestation Statement I have seen and examined Sabina Espinoza and the chapin elements of all parts of the encounter have been performed by me. I agree with the assessment, plan and orders as documented by the Advanced PracticeProvider. I discussed the findings and plans with the nurse practitioner and agree as documented inher note . Additional Comments: tolerating PO, no BM yet. Awaiting return of bowel function. * Filiberto Carrillo DO - 04/02/2020 6:45 AM EST General Surgery: Daily Progress Note PATIENT NAME: Sabina Espinoza TODAY'S DATE: 04/02/2020, 6:45 AM SUBJECTIVE: Pt seen and examined at bedside this morning. No acute events overnight. Afebrile. Tolerating general diet. No flatus or BM yet. OOB ambulating. No nausea or vomiting. Pain well controlled. OBJECTIVE: VITALS: BP (!) 146/111 Pulse 100 Temp 98.7 F (37.1 C) (Oral) Resp 18 Ht 5' 10 (1.778 m) Wt 155 lb 6.4 oz (70.5 kg) SpO2 95% BMI 22.30 kg/m INTAKE/OUTPUT: Intake/Output Summary (Last 24 hours) at 04/02/2020 0645 Last data filed at 04/01/2020 2341 Gross per 24 hour Intake Output 900 ml Net -900 ml PHYSICAL EXAM: General Appearance: awake, alert, oriented, in no acute distress HEENT: Normocephalic, atraumatic, mucus membranes moist Skin: Skin color, texture, turgor normal. No rashes or lesions. Lungs: No chest wall tenderness. Heart: Heart regular rate and rhythm Abdomen: soft, non tender, minimal distension, no peritoneal signs, no rebound tenderness, parris intact, no drainage noted Extremities: Extremities warm to touch, pink, with no edema. Data: CBC with Differential: Lab Results Component Value Date WBC 5.6 04/02/2020 RBC 4.39 04/02/2020 HGB 9.6 04/02/2020 HCT 33.8 04/02/2020 PLT 453 04/02/2020 MCV 77.0 04/02/2020 MCH 21.9 04/02/2020 MCHC 28.4 04/02/2020 RDW 23.6 04/02/2020 LYMPHOPCT 10 04/01/2020 MONOPCT 11 04/01/2020 BASOPCT 0 04/01/2020 MONOSABS 0.87 04/01/2020 LYMPHSABS 0.79 04/01/2020 EOSABS 0.00 04/01/2020 BASOSABS 0.00 04/01/2020 DIFFTYPE NOT REPORTED 04/01/2020 BMP: Lab Results Component Value Date NA 135 04/02/2020 K 3.9 04/02/2020 CL 107 04/02/2020 CO2 22 04/02/2020 BUN 13 04/02/2020 LABALBU 1.8 04/02/2020 CREATININE 0.43 04/02/2020 CALCIUM 7.5 04/02/2020 GFRAA >60 04/02/2020 LABGLOM >60 04/02/2020 GLUCOSE 82 04/02/2020 ASSESSMENT: Active Hospital Problems Diagnosis Date Noted Severe protein-calorie malnutrition (HCC) [E43] 03/30/2020 Esophageal dysphagia [R13.10] 03/30/2020 Iron deficiency anemia [D50.9] 03/30/2020 1. 39 y.o. male postop day 3 status post diagnostic lap converted to open, history of Lauren-en-Y gastric bypass, severe protein calorie malnutrition Plan: 1. Pt seen and examined at bedside this morning. 2. General diet as tolerated. 3. No bowel function yet. Will give another dose of milk of mag and start MiraLAX. 4. Continue reglan. 5. Encouraged pt to be OOB to ambulate more. 6. Will order KUB 7. Try to limit narcotic use 8. Continue to use incentive spirometer. Associated attestation - Daniel Moyer, - 04/03/2020 8:49 PM EST I have discussed the care of the patient, including pertinent history and exam findings, with the resident. I have seen and examined the patient and the chapin elements of all parts of the encounter have been performed by me. I agree with the assessment, plan and orders as documented by the resident. Tolerated regular diet this morning. States improved * Deneen Stone, MANAGER HARBOR - CORK INSULATOR - 04/02/2020 2:09 AM EST Asked to evaluate the patient secondary to nurses concern in overall assessment. Nurse concerned with pale somnolent, appearance with hypertension that is resistant to interventions. On evaluation patient states he was feeling fine with no acute concerns or changes in overall wellness. He state that I am a social withdrawn person I am always quiet. Patient denies headache, chest pain, confusion or any neurological change that he has noted. On exam patient has notable pale appearance excluding his face and more noted on his chest, and below. His left hand and forearm up past the a/c appears swollen in comparison to the right arm. His right arm and hand has visible venins and bone markings which the left does not. There is a good radial/ulnar pulse with lisa assessment. There is no acute pain, erythema or warmth or coolness, cyanosis or discolorations. His left lower extremity, pedal to below knee with more swelling noted than theright. Again there is no erythema, warmth, or pain and the pulses are present. I instructed patient to avoid laying on the left side or dangling the left arm or leg to see if theswelling improves. Patient is post op and a D-DIMER is going to be elevated, at this time I will discuss finding with the attending given the symptoms and not acute changes and allow him to decide if he wants to continue to monitor or proceed with ultrasound or diagnostic images. I will check the morning labs early and check cbc, cmp. Continue to monitor and avoid rapid decline in blood pressure. Consider further work up for the resistant hypertension if this continues. * Maria Eugenia Bowers, AURELIANO, LD - 04/01/2020 1:21 PM EST Comprehensive Nutrition Assessment Type and Reason for Visit: Reassess Nutrition Recommendations/Plan: Continue current General Diet as tolerated. Continue high calorie oral nutrition supplement (Ensure Enlive) 3x/d as tolerated. Monitor/encourage intakes. Nutrition Assessment: Patient reports that he has a good appetite and was able to consume 75% of breakfast this morning. Patient saved Ensure Enlive and banana for snack. Patient denied nausea/vomiting but reports abdominal pain. Patient is s/p Laparatomy, Lysis of Adhesions 03/30. Last BM 03/29, hypoactive bowel sounds noted. Malnutrition Assessment: Malnutrition Status: Moderate malnutrition Context: Chronic Illness Findings of the 6 clinical characteristics of malnutrition: Energy Intake: 7 - 75% or less estimated energy requirements for 1 month or longer Weight Loss: 24% x 4-5 months per pt report - no wt hx avaliable for review Body Fat Loss: 1 - Mild body fat loss- Triceps, Fat Overlying Ribs Muscle Mass Loss: 1 - Mild muscle mass loss- Clavicles (pectoralis & deltoids), Thigh (quadraceps) Fluid Accumulation: No significant fluid accumulation Lace Cutter Strength: Not Performed Estimated Daily Nutrient Needs: Energy (kcal): 22-25 kcal/kg = 1558-4681 kcals/day; Weight Used for Energy Requirements: [place] Protein (g): 1.2-1.5 gm/kg = 90-115 gm pro/day; Weight Used for Protein Requirements: [place] Nutrition Related Findings: Labs reviewed. Meds reviewed: Venofer, Reglan, MVI, Vitamin B12, Vitamin D. Last BM 03/29. Hypoactive bowel sounds. Wounds: Multiple, Surgical Incision Current Nutrition Therapies: DIET GENERAL; Dietary Nutrition Supplements: Standard High Calorie Oral Supplement Anthropometric Measures: Height: 5' 10 (177.8 cm) Current Body Weight: 155 lb 6.8 oz (70.5 kg) Admission Body Weight: 137 lb (62.1 kg) Usual Body Weight: 180 lb (81.6 kg)(per pt) [place] Body Weight: 166 lbs; % [place] Body Weight 93.6 % BMI: 22.3 Adjusted Body Weight: No Adjustment BMI Categories: Normal Weight (BMI 18.5-24.9) Nutrition Diagnosis: Inadequate oral intake related to altered GI function as evidenced by intake 51-75% Nutrition Interventions: Food and/or Nutrient Delivery: Continue Current Diet, Continue Oral Nutrition Supplement Nutrition Education/Counseling: No recommendation at this time Coordination of Nutrition Care: Continue to monitor while inpatient Goals: PO intake to meet 75-100% of estimated nutrition needs Nutrition Monitoring and Evaluation: Behavioral-Environmental Outcomes: None Identified Food/Nutrient Intake Outcomes: Food and Nutrient Intake, Supplement Intake Physical Signs/Symptoms Outcomes: Biochemical Data, GI Status, Fluid Status or Edema, Nutrition Focused Physical Findings, Skin, Weight Discharge Planning: Too soon to determine Contact: * Arlyn Villegas APRN - JC - 04/01/2020 7:27 AM EST [facility] Office: [phone] Peña Billings DO, Ady Shine DO, Houston Cooper DO, Darell Krueger DO, Elena Allison MD, Hannah Rodrigues MD, Murphy Ball MD, Shraddha Hamm MD, Hipolito Rodriguez MD, Jannette Albert MD, MD Asher, Flor Donnelly MD, Elayne Cleaning MD, Nate Bone DO, Lopez Garcia MD, Gustavo Morillo MD, Fabricio Mo DO, Rosalio Green MD, Jose Bello DO, Gaurav Lopez MD, MD Sam, Latonia Chavez, CORK INSULATOR, Eliz Esquivel, CORK INSULATOR, Suzy Wu, CORK INSULATOR, Blanche Desouza, LOFTER,Edgar Staton, CORK INSULATOR, Suyapa Almaguer, CORK INSULATOR, Cathy Ling, CORK INSULATOR, Loan Richardson, CORK INSULATOR, Hever Tomlinson, CORK INSULATOR, SARAH HartleyC, Arlyn Villegas, DOMINIQUE, Yuki Orosco, CORK INSULATOR, Deneen Stone, CORK INSULATOR, Leandra Rich, CORK INSULATOR, Lazara Ballesteros, CORK INSULATOR, Sapphire Rivera, CORK INSULATOR [facility] IN-PATIENT SERVICE [facility] Progress Note 04/01/2020 7:27 AM Name: Sabina Espinoza Acct: [id number] Room: 0443/0443-01 Day: 3 Admit Date: 03/29/2020 10:04 PM PCP: No primary care provider on file. Code Status: Full Code Subjective: C/C: ABD pain Interval History Status: improved. Patient evaluated in room sitting in bed in no acute distress. Vital signs are stable. Tolerating p.o. intake well. Still not passing flatus or having bowel movements. Pain well-tolerated on current medications. Stable for discharge later if bowel function improves Brief History: Per records: Sabina Espinoza is a 39 y.o. Non-/non male who presents with nausea and vomiting and isadmitted to the hospital for the management of intestinal obstruction. Patient presents to the [facility] emergency room for the complaint of abdominal pain nausea and vomiting. Patient states that his nausea and vomiting is chronic and the abdominal pain is intermittently chronic and he has had multiple work-ups in the past with dilation of the esophagus and scopes by his previous GI provider and did not find a source. Patient states that he has had a significant 50 pound weight loss in the past 4 to 5 months secondary to not being able to keep any food down or ingest food. Patient states that he just got tired of throwing up and being nauseated so he decided to seek treatment in the emergency room today While at the outlying emergency room it was noted on his CT he had a small bowel obstruction at theproximal to mid colon, he was medicated with IV pain medications and Zofran and recommended for admission however there are no beds in the [facility] facilities therefore he was transferred to [facility]. 03/30 diagnostic lap converted to open exploratory laparotomy with lysis of adhesions, history of Lauren-en-Y gastric bypass with general surgery Diet advanced venofer started for SERENE Review of Systems: Constitutional: negative for chills, fevers, sweats Respiratory: negative for cough, dyspnea on exertion, shortness of breath, wheezing Cardiovascular: negative for chest pain, chest pressure/discomfort, lower extremity edema, palpitations Gastrointestinal: negative for abdominal pain, constipation, diarrhea, nausea, vomiting Neurological: negative for dizziness, headache Medications: Allergies: Allergies Allergen Reactions Prochlorperazine Valsartan Current Meds: Scheduled Meds: metoclopramide 5 mg Intravenous Q6H magnesium hydroxide 30 mL Oral Daily famotidine 20 mg Oral Daily iron sucrose 100 mg Intravenous Q24H thiamine 100 mg Oral Daily vitamin B-12 100 mcg Oral Daily Vitamin D 1,000 Units Oral Daily therapeutic multivitamin-minerals 1 tablet Oral Daily enoxaparin 40 mg Subcutaneous Daily cyclobenzaprine 10 mg Oral BID sodium chloride flush 10 mL Intravenous 2 times per day influenza virus vaccine 0.5 mL Intramuscular Prior to discharge Continuous Infusions: sodium chloride 75 mL/hr at 04/01/20 0222 PRN Meds: oxyCODONE-acetaminophen OR oxyCODONE-acetaminophen, HYDROmorphone, sodium chloride flush, potassium chloride OR potassium alternative oral replacement OR potassium chloride, magnesium sulfate, promethazine OR ondansetron, polyethylene glycol, nicotine, acetaminophen ORacetaminophen Data: Past Medical History: has a past medical history of Chronic pain syndrome. Social History: reports that he has never smoked. He has never used smokeless tobacco. He reports that he does not drink alcohol or use drugs. Family History: Family History Problem Relation Age of Onset No Known Problems Mother Hypertension Father Heart Attack Father at the age of 58 from heart attack Coronary Art Dis Father Cancer Maternal Grandfather Unknown Vitals: BP (!) 152/74 Pulse 67 Temp 98.2 F (36.8 C) (Oral) Resp 14 Ht 5' 10 (1.778 m) Wt 137 lb (62.1 kg) SpO2 98% BMI 19.66 kg/m Temp (24hrs), Av.1 F (36.7 C), Min:98 F (36.7 C), Max:98.2 F (36.8 C) No results for input(s): POCGLU in the last 72 hours. I/O (24Hr): Intake/Output Summary (Last 24 hours) at 04/01/2020 0774 Last data filed at 03/31/2020 1840 Gross per 24 hour Intake 900 ml Output 300 ml Net 600 ml Labs: Hematology: Recent Labs 03/30/20 0639 03/31/20 0548 WBC 12.7* 16.6* RBC 3.95* 4.37 HGB 8.8* 9.7* HCT 31.5* 33.2* MCV 79.7* 76.0* MCH 22.3* 22.2* MCHC 27.9* 29.2 RDW 23.6* 23.1* PLT 495* 493* MPV 10.1 10.1 INR 1.3 -- Chemistry: Recent Labs 03/30/20 0639 03/31/20 0548 NA 136 136 K 3.9 3.6* CL 106 106 CO2 21 20 GLUCOSE 75 91 BUN 16 17 CREATININE 0.71 0.73 ANIONGAP 9 10 LABGLOM >60 >60 GFRAA >60 >60 CALCIUM 7.5* 7.3* Recent Labs 03/30/20 0639 PROT 4.8* LABALBU 1.8* AST 32 ALT 15 ALKPHOS 103 BILITOT 0.26* ABG:No results found for: POCPH, PHART, PH, POCPCO2, WIJ7NTY, PCO2, POCPO2, PO2ART, PO2, POCHCO3, RME3ZZG, HCO3, NBEA, PBEA, BEART, BE, THGBART, THB, MFG6IVG, VFYK5URJ, Q9NFLVZU, O2SAT, FIO2 No results found for: SPECIAL No results found for: CULTURE Radiology: No results found. Physical Examination: General appearance: alert, cooperative and no distress Mental Status: oriented to person, place and time and normal affect Lungs: clear to auscultation bilaterally, normal effort Heart: regular rate and rhythm, no murmur Abdomen: soft, nontender, nondistended, normal bowel sounds, no masses, hepatomegaly, splenomegaly Extremities: no edema, redness, tenderness in the calves Skin: no gross lesions, rashes, induration, abdominal surgical incision site midline covered with surgical dressing, 3 lap sites with dressings Assessment: Hospital Problems Last Modified POA SBO (small bowel obstruction) ([facility]) 03/29/2020 Yes Severe protein-calorie malnutrition ([facility]) 03/30/2020 Yes Esophageal dysphagia 03/30/2020 Yes Iron deficiency anemia 03/31/2020 Yes Plan: 1. Small bowel obstruction: Status post diagnostic lap converted to open exploratory laparotomy with lysis of adhesions, history of Lauren-en-Y gastric bypass with general surgery. Diet advanced to clear liquid diet to regular.tolerating well 2. Severe protein calorie malnutrition: Continue vitamin supplementation, 3. Postoperative constipation: Medications as ordered, encourage ambulation 4. GI/DVT prophylaxis: lovenox, Pepcid 5. PT, OT 6. Replace electrolytes as indicated Arlyn Villegas APRN - HYBRID TESTER 04/01/2020 7:27 AM Associated attestation - Dinesh Burgess MD - 04/01/2020 1:32 PM EST Attending Supervising Physician s Attestation Statement I have seen and examined Sabina Espinoza and the chapin elements of all parts of the encounter have been performed by me. I agree with the assessment, plan and orders as documented by the Advanced PracticeProvider. I discussed the findings and plans with the nurse practitioner and agree as documented inher note . Additional Comments: no issues overnight. Tolerating PO. Awaiting return of bowel function. * Filiberto Carrillo DO - 04/01/2020 6:34 AM EST General Surgery: Daily Progress Note PATIENT NAME: Sabina Espinoza TODAY'S DATE: 04/01/2020, 6:35 AM SUBJECTIVE: Pt seen and examined at bedside this morning. No acute events overnight. Afebrile. Out of bed ambulating. Tolerating general diet with no nausea or vomiting. Pain well controlled. Incisions healing well. Mullin intact. Denies any flatus or bowel movement yet. OBJECTIVE: VITALS: BP (!) 152/74 Pulse 67 Temp 98.2 F (36.8 C) (Oral) Resp 14 Ht 5' 10 (1.778 m) Wt137 lb (62.1 kg) SpO2 98% BMI 19.66 kg/m INTAKE/OUTPUT: Intake/Output Summary (Last 24 hours) at 04/01/2020 0635 Last data filed at 03/31/2020 1840 Gross per 24 hour Intake 900 ml Output 300 ml Net 600 ml PHYSICAL EXAM: General Appearance: awake, alert, oriented, in no acute distress HEENT: Normocephalic, atraumatic, mucus membranes moist Skin: Skin color, texture, turgor normal. No rashes or lesions. Lungs: No chest wall tenderness. Heart: Heart regular rate and rhythm Abdomen: Soft, nontender, nondistended, no peritoneal signs, no rebound tenderness, incisions healing well, parris intact, no bleeding or drainage noted Extremities: Extremities warm to touch, pink, with no edema. Data: CBC with Differential: Lab Results Component Value Date WBC 16.6 03/31/2020 RBC 4.37 03/31/2020 HGB 9.7 03/31/2020 HCT 33.2 03/31/2020 PLT 493 03/31/2020 MCV 76.0 03/31/2020 MCH 22.2 03/31/2020 MCHC 29.2 03/31/2020 RDW 23.1 03/31/2020 LYMPHOPCT 6 03/31/2020 MONOPCT 7 03/31/2020 BASOPCT 0 03/31/2020 MONOSABS 1.16 03/31/2020 LYMPHSABS 1.00 03/31/2020 EOSABS 0.00 03/31/2020 BASOSABS 0.00 03/31/2020 DIFFTYPE NOT REPORTED 03/31/2020 BMP: Lab Results Component Value Date NA 136 03/31/2020 K 3.6 03/31/2020 CL 106 03/31/2020 CO2 20 03/31/2020 BUN 17 03/31/2020 LABALBU 1.8 03/30/2020 CREATININE 0.73 03/31/2020 CALCIUM 7.3 03/31/2020 GFRAA >60 03/31/2020 LABGLOM >60 03/31/2020 GLUCOSE 91 03/31/2020 ASSESSMENT: Active Hospital Problems Diagnosis Date Noted Severe protein-calorie malnutrition (HCC) [E43] 03/30/2020 Esophageal dysphagia [R13.10] 03/30/2020 Iron deficiency anemia [D50.9] 03/30/2020 SBO (small bowel obstruction) (HCC) [K56.609] 03/29/2020 1. 39 y.o. male postop day 2 status post diagnostic lap converted to open, history of Lauren-en-Y gastric bypass, severe protein calorie malnutrition Plan: 1. Patient seen examined at bedside this morning. 2. Can continue general diet as tolerated, recommend protein supplements 4 times daily. 3. Can decrease IV fluids. 4. Pain control 5. Encourage patient to be out of bed to ambulate. 6. Okay for patient to shower today and wash incision sites with soap and water. 7. Awaiting bowel function, patient reports no flatus or bowel movement yet. 8. Will start reglan and give milk of mag. Associated attestation - Daniel Moyer DO - 04/03/2020 8:48 PM EST I have discussed the care of the patient, including pertinent history and exam findings, with the resident. I have seen and examined the patient and the chapin elements of all parts of the encounter have been performed by me. I agree with the assessment, plan and orders as documented by the resident. * Arlyn Villegas APRN - JC - 03/31/2020 9:53 AM EST [facility] Office: [phone] Peña Billings DO, Ady Shine DO, Houston Cooper DO, Darell Krueger DO, Elena Allison MD, Hannah Rodrigues MD, Murphy Ball MD, Shraddha Hamm MD, Hipolito Rodriguez MD, Jannette Albert MD, MD Asher, Flor Donnelly MD, Elyane Cleaning MD, Nate Bone DO, Lopez Garcia MD, Gustavo Morillo MD, Fabricio Mo DO, Rosalio Green MD, Jose Bello DO, Gaurav Lopez MD, MD Sam, Latonia Chavez, CORK INSULATOR, Eliz Esquivel, CORK INSULATOR, Suzy Wu, CORK INSULATOR, Blanche Desouza, LOFTER,Edgar Staton, CORK INSULATOR, Suyapa Almaguer, CORK INSULATOR, Cathy Ling, CORK INSULATOR, Loan Richardson, CORK INSULATOR, Hever Tomlinson, CORK INSULATOR, iNki Badillo PA-C, Arlyn Villegas, DOMINIQUE, Yuki Orosco, CORK INSULATOR, Deneen Stone, CORK INSULATOR, Leandra Rich, CORK INSULATOR, Lazara Ballesteros, CORK INSULATOR, Sapphire Rivera, CORK INSULATOR [facility] IN-PATIENT SERVICE [facility] Progress Note 03/31/2020 9:53 AM Name: Sabina Espinoza Acct: [id number] Room: [address] [place] [address] Day: 2 Admit Date: 03/29/2020 10:04 PM PCP: No primary care provider on file. Code Status: Full Code Subjective: C/C: ABD pain Interval History Status: improved. Patient evaluated in room sitting in bed wanting to know if his diet can be advanced. Superficial pain from surgical incision sites present. Not passing any gas at this time but abdomen is soft and nondistended Brief History: Per records: Sabina Espinoza is a 39 y.o. Non-/non male who presents with nausea and vomiting and isadmitted to the hospital for the management of intestinal obstruction. Patient presents to the [facility] emergency room for the complaint of abdominal pain nausea and vomiting. Patient states that his nausea and vomiting is chronic and the abdominal pain is intermittently chronic and he has had multiple work-ups in the past with dilation of the esophagus and scopes by his previous GI provider and did not find a source. Patient states that he has had a significant 50 pound weight loss in the past 4 to 5 months secondary to not being able to keep any food down or ingest food. Patient states that he just got tired of throwing up and being nauseated so he decided to seek treatment in the emergency room today While at the outlying emergency room it was noted on his CT he had a small bowel obstruction at theproximal to mid colon, he was medicated with IV pain medications and Zofran and recommended for admission however there are no beds in the [facility] facilities therefore he was transferred to [facility]. 03/30 diagnostic lap converted to open exploratory laparotomy with lysis of adhesions, history of Lauren-en-Y gastric bypass with general surgery Diet advance Review of Systems: Constitutional: negative for chills, fevers, sweats Respiratory: negative for cough, dyspnea on exertion, shortness of breath, wheezing Cardiovascular: negative for chest pain, chest pressure/discomfort, lower extremity edema, palpitations Gastrointestinal: negative for abdominal pain, constipation, diarrhea, nausea, vomiting Neurological: negative for dizziness, headache Medications: Allergies: Allergies Allergen Reactions Prochlorperazine Valsartan Current Meds: Scheduled Meds: thiamine 100 mg Oral Daily vitamin B-12 100 mcg Oral Daily Vitamin D 1,000 Units Oral Daily therapeutic multivitamin-minerals 1 tablet Oral Daily enoxaparin 40 mg Subcutaneous Daily cyclobenzaprine 10 mg Oral BID sodium chloride flush 10 mL Intravenous 2 times per day influenza virus vaccine 0.5 mL Intramuscular Prior to discharge Continuous Infusions: sodium chloride 75 mL/hr at 03/31/20 0933 PRN Meds: oxyCODONE-acetaminophen OR oxyCODONE-acetaminophen, HYDROmorphone, sodium chloride flush, potassium chloride OR potassium alternative oral replacement OR potassium chloride, magnesium sulfate, promethazine OR ondansetron, polyethylene glycol, nicotine, acetaminophen ORacetaminophen Data: Past Medical History: has a past medical history of Chronic pain syndrome. Social History: reports that he has never smoked. He has never used smokeless tobacco. He reports that he does not drink alcohol or use drugs. Family History: Family History Problem Relation Age of Onset No Known Problems Mother Hypertension Father Heart Attack Father at the age of 58 from heart attack Coronary Art Dis Father Cancer Maternal Grandfather Unknown Vitals: BP (!) 172/129 Pulse 104 Temp 98 F (36.7 C) (Oral) Resp 16 Ht 5' 10 (1.778 m) Wt 137 lb (62.1 kg) SpO2 95% BMI 19.66 kg/m Temp (24hrs), Av.8 F (34.9 C), Min:86.9 F (30.5 C), Max:98 F (36.7 C) No results for input(s): POCGLU in the last 72 hours. I/O (24Hr): Intake/Output Summary (Last 24 hours) at 03/31/2020 0953 Last data filed at 03/31/2020 0602 Gross per 24 hour Intake 3510 ml Output 1075 ml Net 2435 ml Labs: Hematology: Recent Labs 03/30/20 0639 03/31/20 0548 WBC 12.7* 16.6* RBC 3.95* 4.37 HGB 8.8* 9.7* HCT 31.5* 33.2* MCV 79.7* 76.0* MCH 22.3* 22.2* MCHC 27.9* 29.2 RDW 23.6* 23.1* PLT 495* 493* MPV 10.1 10.1 INR 1.3 -- Chemistry: Recent Labs 03/30/20 0639 03/31/20 0548 NA 136 136 K 3.9 3.6* CL 106 106 CO2 21 20 GLUCOSE 75 91 BUN 16 17 CREATININE 0.71 0.73 ANIONGAP 9 10 LABGLOM >60 >60 GFRAA >60 >60 CALCIUM 7.5* 7.3* Recent Labs 03/30/20 0639 PROT 4.8* LABALBU 1.8* AST 32 ALT 15 ALKPHOS 103 BILITOT 0.26* ABG:No results found for: POCPH, PHART, PH, POCPCO2, HUK3YPX, PCO2, POCPO2, PO2ART, PO2, POCHCO3, ZPC8GTQ, HCO3, NBEA, PBEA, BEART, BE, THGBART, THB, FAK9ONV, MQUM2CUF, V7DNHBML, O2SAT, FIO2 No results found for: SPECIAL No results found for: CULTURE Radiology: No results found. Physical Examination: General appearance: alert, cooperative and no distress Mental Status: oriented to person, place and time and normal affect Lungs: clear to auscultation bilaterally, normal effort Heart: regular rate and rhythm, no murmur Abdomen: soft, nontender, nondistended, normal bowel sounds, no masses, hepatomegaly, splenomegaly Extremities: no edema, redness, tenderness in the calves Skin: no gross lesions, rashes, induration, abdominal surgical incision site midline covered with surgical dressing, 3 lap sites with dressings Assessment: Hospital Problems Last Modified POA SBO (small bowel obstruction) ([facility]) 03/29/2020 Yes Severe protein-calorie malnutrition ([facility]) 03/30/2020 Yes Esophageal dysphagia 03/30/2020 Yes Microcytic anemia 03/30/2020 Yes Plan: 1. Small bowel obstruction: Status post diagnostic lap converted to open exploratory laparotomy with lysis of adhesions, history of Lauren-en-Y gastric bypass with general surgery. Diet advanced to clear liquid diet to regular. 2. Severe protein calorie malnutrition: Continue vitamin supplementation, 3. Postoperative constipation: Medications as ordered, encourage ambulation 4. GI/DVT prophylaxis: lovenox, Pepcid 5. PT, OT 6. Replace electrolytes as indicated AQUILES Perales NP 03/31/2020 9:53 AM * Filiberto Carrillo DO - 03/31/2020 6:45 AM EST General Surgery: Daily Progress Note PATIENT NAME: Sabina Espinoza TODAY'S DATE: 03/31/2020, 6:45 AM SUBJECTIVE: Pt seen and examined at bedside this morning. No acute events overnight. Afebrile. Tolerating clearliquid diet. Pain well controlled. No nausea or vomiting. Patient ports he is not passed any flatusyet. OBJECTIVE: VITALS: BP (!) 158/122 Pulse 76 Temp 96.6 F (35.9 C) (Axillary) Resp 14 Ht 5' 10 (1.778 m) Wt 137 lb (62.1 kg) SpO2 98% BMI 19.66 kg/m INTAKE/OUTPUT: Intake/Output Summary (Last 24 hours) at 03/31/2020 0645 Last data filed at 03/31/2020 0602 Gross per 24 hour Intake 3510 ml Output 1075 ml Net 2435 ml PHYSICAL EXAM: General Appearance: awake, alert, oriented, in no acute distress HEENT: Normocephalic, atraumatic, mucus membranes moist Skin: Skin color, texture, turgor normal. No rashes or lesions. Lungs: No chest wall tenderness. Heart: Heart regular rate and rhythm Abdomen: Soft, nontender, nondistended, no peritoneal signs, no rebound tenderness, parris intact,no bleeding or drainage noted Extremities: Extremities warm to touch, pink, with no edema. Data: CBC with Differential: Lab Results Component Value Date WBC 12.7 03/30/2020 RBC 3.95 03/30/2020 HGB 8.8 03/30/2020 HCT 31.5 03/30/2020 PLT 495 03/30/2020 MCV 79.7 03/30/2020 MCH 22.3 03/30/2020 MCHC 27.9 03/30/2020 RDW 23.6 03/30/2020 BMP: Lab Results Component Value Date NA 136 03/30/2020 K 3.9 03/30/2020 CL 106 03/30/2020 CO2 21 03/30/2020 BUN 16 03/30/2020 LABALBU 1.8 03/30/2020 CREATININE 0.71 03/30/2020 CALCIUM 7.5 03/30/2020 GFRAA >60 03/30/2020 LABGLOM >60 03/30/2020 GLUCOSE 75 03/30/2020 ASSESSMENT: Active Hospital Problems Diagnosis Date Noted Severe protein-calorie malnutrition (HCC) [E43] 03/30/2020 Esophageal dysphagia [R13.10] 03/30/2020 Microcytic anemia [D50.9] 03/30/2020 SBO (small bowel obstruction) (HCC) [K56.609] 03/29/2020 1. 39 y.o. male postop day 1 status post diagnostic lap converted to open exploratory laparotomy with lysis of adhesions, history of Lauren-en-Y gastric bypass Plan: 1. Patient seen examined at bedside this morning. 2. Can continue clear liquid diet, will advance when has more bowel function. 3. Encourage patient to be out of bed to ambulate more today. 4. Patient given incentive spirometer and discussed instructions on how to use. 5. Pain control 6. DVT prophylaxis 7. IV fluids 8. Continue medical management per primary team. * Dorothy Berger RN - 03/31/2020 3:49 AM EST SBP post op was 194, co founder and chairman oncology physician assistant notified via perfect serve. 5mg of lopressor given. Will continue to monitor. * Crystal Ambrose DO - 03/30/2020 11:00 PM EST POST-OPERATIVE PROGRESS NOTE Patient: Sabina Espinoza DATE: 03/30/2020 Surgery: Diagnostic laparoscopy, laparotomy, lysis of adhesions Subjective: Patient seen and examined. No acute distress noted. Is reporting some midline abdominal pain and discomfort. He denies any nausea or vomiting and is requesting some water. He has not voided or passedflatus since surgery. He denies any chest pain or shortness of breath. Objective: Vital signs and Nurse's note reviewed Post-op vital signs: stable BP (!) 165/98 Pulse 76 Temp 96.6 F (35.9 C) (Axillary) Resp 14 Ht 5' 10 (1.778 m) Wt 137lb (62.1 kg) SpO2 98% BMI 19.66 kg/m Gen: A&Ox3, NAD CV: Regular rate Resp: No acute respiratory distress or accessory muscle use Abd: Soft, appropriately tender, nondistended. Midline incision with dressing clean, dry, and intact. No active bleeding or drainage noted Ext: Warm, no cyanosis or edema Assessment: POD # 0 S/P diagnostic laparoscopy, laparotomy, lysis of adhesions Recovering well post-op Plan: Continue current care Continue current pain regimen Diet: Clear liquid diet Continue IV fluids for hydration Monitor intake and output * Deloris Collins RN - 03/30/2020 5:34 PM EST Rapid COVID SWAB to R Nare without incident place in double bag, labeld and sent to lab by [facility] * Jose Bello I, DO - 03/30/2020 3:53 PM EST [facility] Office: [phone] Peña Billings DO, Ady Shine DO, Houston Cooper DO, Darell Krueger DO, Elena Allison MD, Hannah Rodrigues MD, Murphy Ball MD, Shraddha Hamm MD, Hipolito Rodriguez MD, Jannette Albert MD, MD Asher, Flor Donnelly MD, Elayne Cleaning MD, Nate Bone DO, Lopez Garcia MD, Gustavo Morillo MD, Fabricio Mo DO, Rosalio Green MD, Jose Bello DO, Gaurav Lopez MD, MD Sam, Latonia Chavez, CORK INSULATOR, Eliz Esquivel, CORK INSULATOR, Szuy Wu, CORK INSULATOR, Blanche Desouza, LOFTER,Edgar Staton, CORK INSULATOR, Suyapa Almaguer, CORK INSULATOR, Cathy Ling, CORK INSULATOR, Loan Richardson, CORK INSULATOR, Hever Tomlinson, CORK INSULATOR, Niki Badillo PA-C, Arlyn Villegas, DOMINIQUE, Yuki Orosco, CORK INSULATOR, Deneen Stone, CORK INSULATOR, Leandra Rich, CORK INSULATOR, Lazara Ballesteros, CORK INSULATOR, Sapphire Rivera, CORK INSULATOR [facility] IN-PATIENT SERVICE [facility] Progress Note 03/30/2020 4:08 PM Name: Sabina Espinoza Acct: [id number] Room: [facility] Day: 1 Admit Date: 03/29/2020 10:04 PM PCP: No primary care provider on file. Code Status: Full Code Subjective: C/C: Stomach pain, weight loss Interval History Status: not changed. Patient seen and examined at bedside this morning. States that over the last several months he has been having increasing weight loss and difficulty swallowing. Feels like food gets stuck in his chest. He has eliminated beef and meat from his diet due to pain. He denies any smoking or alcohol history. Denies any family history of cancer. Admits to 60 pounds of weight loss in the last 4 months. Review of Systems: Constitutional: negative for chills, fevers, sweats Respiratory: negative for cough, dyspnea on exertion, shortness of breath, wheezing Cardiovascular: negative for chest pain, chest pressure/discomfort, lower extremity edema, palpitations Gastrointestinal: negative for abdominal pain, constipation, diarrhea, nausea, vomiting Neurological: negative for dizziness, headache Medications: Allergies: Allergies Allergen Reactions Prochlorperazine Valsartan Current Meds: Scheduled Meds: [JUN Hold] thiamine 100 mg Oral Daily [JUN Hold] vitamin B-12 100 mcg Oral Daily [START ON 03/31/2020] Vitamin D 1,000 Units Oral Daily [START ON 03/31/2020] multivitamin 1 tablet Oral Daily [Jun] sodium chloride flush 10 mL Intravenous 2 times per day [Jun] enoxaparin 40 mg Subcutaneous Daily [Jun] influenza virus vaccine 0.5 mL Intramuscular Prior to discharge Continuous Infusions: [Jun] sodium chloride 75 mL/hr at 03/30/20 1204 PRN Meds: fentanNYL, fentanNYL, HYDROmorphone, HYDROmorphone, [Jun] sodium chloride flush, [Jun] potassium chloride OR [Jun] potassium alternative oral replacement OR [Jun] potassium chloride, [JUN Hold] magnesium sulfate, [JUN Hold] promethazine OR [JUN Hold] ondansetron, [JUN Hold] polyethylene glycol, [JUN Hold] nicotine, [JUN Hold] acetaminophen OR [Jun] acetaminophen, [Jun] fentanNYL Data: Past Medical History: has a past medical history of Chronic pain syndrome. Social History: reports that he has never smoked. He has never used smokeless tobacco. He reports that he does not drink alcohol or use drugs. Family History: Family History Problem Relation Age of Onset No Known Problems Mother Hypertension Father Heart Attack Father at the age of 58 from heart attack Coronary Art Dis Father Cancer Maternal Grandfather Unknown Vitals: BP (!) 124/104 Pulse 86 Temp 96.8 F (36 C) (Temporal) Resp 14 Ht 5' 10 (1.778 m) Wt 137 lb (62.1 kg) SpO2 99% BMI 19.66 kg/m Temp (24hrs), Av.7 F (36.5 C), Min:96.8 F (36 C), Max:98.6 F (37 C) No results for input(s): POCGLU in the last 72 hours. I/O (24Hr): No intake or output data in the 24 hours ending 03/30/20 1608 Labs: Hematology: Recent Labs 03/30/20 0639 WBC 12.7* RBC 3.95* HGB 8.8* HCT 31.5* MCV 79.7* MCH 22.3* MCHC 27.9* RDW 23.6* PLT 495* MPV 10.1 INR 1.3 Chemistry: Recent Labs 03/30/20 0639 NA 136 K 3.9 CL 106 CO2 21 GLUCOSE 75 BUN 16 CREATININE 0.71 ANIONGAP 9 LABGLOM >60 GFRAA >60 CALCIUM 7.5* Recent Labs 03/30/20 0639 PROT 4.8* LABALBU 1.8* AST 32 ALT 15 ALKPHOS 103 BILITOT 0.26* ABG:No results found for: POCPH, PHART, PH, POCPCO2, NNG1CWW, PCO2, POCPO2, PO2ART, PO2, POCHCO3, PDC3AMM, HCO3, NBEA, PBEA, BEART, BE, THGBART, THB, WKV3CTI, BUJW4AGG, Y8ETNJNT, O2SAT, FIO2 No results found for: SPECIAL No results found for: CULTURE Radiology: No results found. Physical Examination: General appearance: Frail, ill-appearing male in bed, cachectic Mental Status: oriented to person, place and time and normal affect Lungs: clear to auscultation bilaterally, normal effort Heart: regular rate and rhythm, no murmur Abdomen: Admits to abdominal pain and distention. Extremities: no edema, redness, tenderness in the calves Skin: no gross lesions, rashes, induration Assessment: Hospital Problems Last Modified POA SBO (small bowel obstruction) ([facility]) 03/29/2020 Yes Severe protein-calorie malnutrition (HCC) 03/30/2020 Yes Esophageal dysphagia 03/30/2020 Yes Microcytic anemia 03/30/2020 Yes Plan: 1. Small bowel obstruction: Surgery following, plan for exploratory laparotomy laparotomy 03/30. Maintain n.p.o. Continue IV fluids. General surgery following 2. Dysphagia: Patient with esophageal dysphagia to solids. May benefit from GI eval to rule out motility syndromes, and obstructions. 3. History of RNY: Bariatrics consulted, following. Continue vitamin supplementation. 4. Protein calorie malnutrition severe 5. DVT ppx 6. Replace electrolytes Jose Bello DO 03/30/2020 4:08 PM * Keshia Don RD, LD - 03/30/2020 3:33 PM EST Comprehensive Nutrition Assessment Type and Reason for Visit: Initial, Positive Nutrition Screen(Weight Loss, Poor Intakes/Appetite, Nausea/Vomiting) Nutrition Recommendations/Plan: - Continue NPO. Monitor for start of oral diet vs need for nutrition support. - Monitor labs, bowel function, and plan of care. Nutrition Assessment: Admitted with c/o worsening abdominal pain with nausea and vomiting - has been unable to keep much PO intakes down and reports 50-60 lb weight loss over past 4-5 months. Pt withsmall bowel obstruction present - plans for surgery. Remains NPO at this time. Hx of gastric bypasssurgery 10-12 years ago - pt reports he got down to around 180-200 lb. Pt reports since surgery lou ng some issues with certain foods he would have to avoid but over past few months has been only been able to take soft foods, soups, ice cream, pudding, tuna, and some liquids. Pt also reports havingsome issues when swallowing foods and feeling like they are stuck in his esophagus. Pt reports minimal PO intakes x past several months. Reports previously drinking Ensure/Boost supplements - would like to recieve with meals as diet restarted. Pt states he has always had some loose skin since gastric bypass surgery but has noticed his thighs are smaller and his ribs and clavicles are visible. Will monitor for start of nutrition. Malnutrition Assessment: Malnutrition Status: Moderate malnutrition Context: Chronic Illness Findings of the 6 clinical characteristics of malnutrition: Energy Intake: 7 - 75% or less estimated energy requirements for 1 month or longer Weight Loss: (24% x 4-5 months per pt report - no wt hx avaliable for review) Body Fat Loss: 1 - Mild body fat loss Triceps, Fat Overlying Ribs Muscle Mass Loss: 1 - Mild muscle mass loss Clavicles (pectoralis & deltoids), Thigh (quadraceps) Fluid Accumulation: No significant fluid accumulation Lace Cutter Strength: Not Performed Estimated Daily Nutrient Needs: Energy (kcal): 22-25 kcal/kg = 5084-5636 kcals/day; Weight Used for Energy Requirements: [place] Protein (g): 1.2-1.5 gm/kg = 90-115 gm pro/day; Weight Used for Protein Requirements: [place] Nutrition Related Findings: Hypoactive bowel sounds. Hx of loose skin but visible wasting. Labs reviewed. Meds reviewed: Thiamine, Vitamin B12. H/o gastric bypass surgery. Wounds: None Current Nutrition Therapies: Diet NPO Effective Now Exceptions are: Sips with Meds Anthropometric Measures: Height: 5' 10 (177.8 cm) Current Body Weight: 137 lb (62.1 kg) Admission Body Weight: 137 lb (62.1 kg) Usual Body Weight: 180 lb (81.6 kg)(per pt) [place] Body Weight: 166 lbs; % [place] Body Weight 82.5 % BMI: 19.7 BMI Categories: Normal Weight (BMI 18.5-24.9) Nutrition Diagnosis: Inadequate oral intake related to altered GI function as evidenced by NPO or clear liquid status due to medical condition, poor intake prior to admission, nausea, vomiting(inability to tolerate PO intakes) Nutrition Interventions: Food and/or Nutrient Delivery: Continue NPO(Monitor for start of oral diet vs need for nutrition support.) Nutrition Education/Counseling: No recommendation at this time Coordination of Nutrition Care: Continue to monitor while inpatient Goals: Start of nutrition within 24-48 hours. Nutrition Monitoring and Evaluation: Food/Nutrient Intake Outcomes: Diet Advancement/Tolerance Physical Signs/Symptoms Outcomes: Biochemical Data, GI Status, Nausea or Vomiting, Fluid Status or Edema, Hemodynamic Status, Nutrition Focused Physical Findings, Skin, Weight Contact: * Dorothy Berger RN - 03/29/2020 11:25 PM EST Pt. transferred from [facility] before RN got report. Pt is a(x) for a SBO with 6/10 abd pain. Given50 mcg of fentynl before being brought here. Pt will be NPO at midnight, Gen surg consult in. He also said he has anxiety in the hopital and intermittantly at night. He doesnt take any RX meds for it, but takes something (not sure what) over the counter. HYBRID TESTER oncology physician assistant contacted via perfect serve regard ing pain management and antianxiety meds. documented in this encounter* Emma Rankin RN - 05/27/2020 3:25 PM EST [employer] cab set up for 1530. Patient discharged via wheelchair with all of his belongings. * Thao Conley PTA - 05/27/2020 3:08 PM EST Physical Therapy DATE: 05/27/2020 NAME: Sabina Espinoza : 1980 Patient not seen this date for Physical Therapy due to: Patient Declined: Politely. * Emma Rankin RN - 05/27/2020 3:00 PM EST TPN turned off. Physics Technical Officer will continue to monitor. * Emma Rankin RN - 05/27/2020 2:44 PM EST Patient given discharge paperwork and all questions answered. TPN can be disconnected at 1500 to bedischarged. Physics Technical Officer will continue to monitor. * Emma Rankin RN - 05/27/2020 2:00 PM EST TPN rate decreased by half again to wean for home. Physics Technical Officer will continue to monitor. * Daryl Aguilar - 05/27/2020 1:19 PM EST CLINICAL PHARMACY NOTE: MEDS TO [facility] Patient?: No Total # of Prescriptions Filled: 3 The following medications were delivered to the patient: Pantoprazole Carafate norco Total # of Interventions Completed: 0 Time Spent (min): 0 Additional Documentation: * Emma Rankin RN - 05/27/2020 1:00 PM EST TPN rate cut in half to wean for discharge. Physics Technical Officer will continue to monitor. * Edna Jimenes RD, LD - 05/27/2020 12:11 PM EST Comprehensive Nutrition Assessment Type and Reason for Visit: Reassess Nutrition Recommendations/Plan: -Continue NPO status -Restart diet as able -Recommend increasing TPN @ 70 mL/hr (1680 mLs) x 24 hrs + 20% of 200 mL IV lipids + 105 gms AA + 200 gms dextrose ~> 1755 kcals, 105 gms protein -Suggest increasing Ca, NaCl and decreasing Mg in next bag -Will monitor TPN, labs, weights and restart of diet Nutrition Assessment: TPN continues. Pt currently NPO for EGD today. Labs reviewed. Pt remains nutritionally compromised aeb severe malnutrition. Pt noted w/ BM this morning. Will continue to monitor. Malnutrition Assessment: Malnutrition Status: Severe malnutrition Context: Chronic Illness Findings of the 6 clinical characteristics of malnutrition: Energy Intake: 7 - 75% or less estimated energy requirements for 1 month or longer Weight Loss: Unable to assess(Pt reported weight loss x past 6 months.) Body Fat Loss: 7 - Severe body fat loss Orbital, Triceps Muscle Mass Loss: 7 - Severe muscle mass loss Hand (interosseous), Clavicles (pectoralis & deltoids), Temples (temporalis) Fluid Accumulation: 1 - Mild Extremities Lace Cutter Strength: Not Performed Estimated Daily Nutrient Needs: Energy (kcal): 30-35 kcal/kg --> 2833-9908 kcal/day; Weight Used for Energy Requirements: Admission Protein (g): 1.5- 1.8--> 88-105 g/day pro; Weight Used for Protein Requirements: Admission Nutrition Related Findings: BM 05/27; Na 133 Wounds: None Current Nutrition Therapies: PN-Adult 2-in-1 Central Line (Standard) Diet NPO, After Midnight Current Parenteral Nutrition Orders: Type and Formula: 2-in-1 Peripheral Lipids: 100ml, Daily(x 2 per day) Duration: Continuous Rate/Volume: 65 mL/hr; 1560 mLs Current PN Order Provides: 200 gms dextrose + 105 gms AA ~> 1500 kcals, 105 gms protein Goal PN Orders Provides: 275 gms dextrose + 105 gms AA ~> 1755 kcals, 105 gms protein Anthropometric Measures: Height: 5' 10 (177.8 cm) Current Body Weight: 157 lb (71.2 kg) Admission Body Weight: 129 lb (58.5 kg) [place] Body Weight: 166 lbs; % [place] Body Weight 94.6 % BMI: 22.5 BMI Categories: Normal Weight (BMI 18.5-24.9) Nutrition Diagnosis: Inadequate protein-energy intake related to altered GI function, impaired nutrient utilization as evidenced by NPO or clear liquid status due to medical condition, poor intake prior to admission, nutrition support - parenteral nutrition Nutrition Interventions: Food and/or Nutrient Delivery: Continue NPO, Modify Parenteral Nutrition(Restart diet as able) Nutrition Education/Counseling: Education not indicated Coordination of Nutrition Care: Continue to monitor while inpatient Goals: Achieved PN/Oral diet to meet 75-100% estimated nutrient needs. Nutrition Monitoring and Evaluation: Food/Nutrient Intake Outcomes: Parenteral Nutrition Intake/Tolerance, Diet Advancement/Tolerance Physical Signs/Symptoms Outcomes: Biochemical Data, GI Status, Nausea or Vomiting, Nutrition Focused Physical Findings, Skin, Weight Discharge Planning: Too soon to determine Contact: [phone] * Ady Shine DO - 05/27/2020 12:09 PM EST [facility] Office: [phone] Peña Billings DO, Ady Shine DO, Houston Cooper DO, Darell Krueger DO, Elena Allison MD, Hannah Rodrigues MD, Murphy Ball MD, Shraddha Hamm MD, Hipolito Rodriguez MD, Jannette Albert MD, MD Asher, Flor Donnelly MD, Elayne Cleaning MD, Nate Bone DO, Lopez Garcia MD, Gustavo Morillo MD, Fabricio Mo DO, Rosalio Green MD, Jose Bello DO, Gaurav Lopez MD, MD Sam, Latonia Chavez, CORK INSULATOR, Eliz Esquivel, CORK INSULATOR, Suzy Wu, CORK INSULATOR, Blanche Desouza, [facility],Edgar Staton, CORK INSULATOR, Suyapa Almaguer, CORK INSULATOR, Cathy Ling, CORK INSULATOR, Loan Richardson, CORK INSULATOR, Hever Tomlinson, CORK INSULATOR, SARAH HartleyC, Arlyn Villegas, DOMINIQUE, Yuki Orosco, CORK INSULATOR, Deneen Stone, CORK INSULATOR, Leandra Rich, CORK INSULATOR, Lazara Ballesteros, [facility], Sapphire Rivera, CORK INSULATOR [facility] IN-PATIENT SERVICE [facility] Progress Note 05/27/2020 1:00 PM Name: Sabina Espinoza Acct: [id number] Room: 0239/0239-01 Day: 4 Admit Date: 05/23/2020 8:14 PM PCP: No primary care provider on file. Code Status: Full Code Subjective: C/C: Abdominal pain Interval History Status: Has been doing better with diet Has been n.p.o. for EGD Chronic abdominal pain controlled Patient hoping to go home today Data Base Updates: Albumin1.8Low Calcium7.6Low mg/dL [id number] Ujycoab066Qbqb mg/dL XYZ62io/dL CREATININE0.28Low WBC4.7k/uL RBC3.57Low m/uL Mrtpobldlw38.2Low Brief History: As documented in the medical record: This is a 40 year old male with a history of RNY presents with SBO and severe malnutrition currently being treated medically. Bariatrics consulted, no surgical intervention. Dietary consulted for nutrition recommendations The plan has included: Small Bowel obstruction: 2/2 adhesions, pt with a hx of RNY. Continue IVF. Due to weight loss and inability to tolerate PO intake, dietary consulted, pt will likely need TPN. Replace electrolytes, continue supportive care. Bariatrics consulted, no surgical intervention. Serial abdominal exams. Paincontrol, limit narcotic use. NPO, No NG due to stump. Severe Protein calorie malnutrition: Thiamine, daily multivitamin, dietary consulted, may need TPN. Acute Hypokalemia: replace electrolytes PRN NCNC anemia: Check iron studies, may benefit from IV iron pending results. Essential Hypertension: Currently well controlled. Resume home medications GERD: continue PPI DVT ppx PT/OT The patient reports his problems and abdominal pain have been present for 10 years following his first bypass surgery He has had a complicated history His weight has dropped from over 300 pounds under 120 pounds He states his weight historically has been approximately 165 pounds On 05/24 patient underwent PICC line placement TPN was initiated Anemia work-up has included: Results for SABINA ESPINOZA ( ) as of 05/25/2020 15:51 Ref. Range 03/31/2020 05:48 05/24/2020 04:38 05/24/2020 10:13 Ferritin Latest Ref Range: 30 - 400 ug/L 17 (L) 34 Iron Latest Ref Range: 59 - 158 ug/dL 17 (L) 52 (L) Iron Saturation Latest Ref Range: 20 - 55 % 9 (L) 31 UIBC Latest Ref Range: 112 - 347 ug/dL 181 116 TIBC Latest Ref Range: 250 - 450 ug/dL 198 (L) 168 (L) Vitamin B1,Whole Blood Latest Ref Range: 70 - 180 nmol/L 122 Folate Latest Ref Range: >4.8 ng/mL 14.7 Vitamin B-12 Latest Ref Range: 232 - 1245 pg/mL 565 Albumin1.8Low EGD: Esophagus: Normal Stomach: Gastric bypass anatomy. Normal gastric pouch size. The gastro-jejunal anastomosis has clean based ulcer and stenosis with inner diameter of 7 mm and this was dilated to 11 mm balloon for 1 minute. Jejunum: normal Recommendations: PPI BID Carafate 1 gm QID. Repeat EGD in 2-4 weeks for dilation. OK for liquid diet from GI standpoint. OK for discharge. The patient responded well to therapy DC planning was initiated The patient was instructed to follow up with their PCP, in one week Medications: Allergies: Allergies Allergen Reactions Prochlorperazine Valsartan Current Meds: Scheduled Meds: pantoprazole 40 mg Oral BID AC sucralfate 1 g Oral 4 times per day [Jun] therapeutic multivitamin-minerals 1 tablet Oral Daily [Jun] thiamine 200 mg Oral Daily [Jun] lidocaine 1 % injection 5 mL Intradermal Once [Jun] sodium chloride flush 10 mL Intravenous 2 times per day [Jun] gabapentin 300 mg Oral Q8H [Jun] enoxaparin 40 mg Subcutaneous Daily Continuous Infusions: [JUN Hold] dextrose [JUN Hold] PN-Adult 2-in-1 Central Line (Standard) 65 mL/hr at 05/26/20 1845 [Jun] fat emulsion 100 mL (05/27/20 0649) [Jun] lactated ringers 20 mL/hr at 05/25/20 1052 PRN Meds: [JUN Hold] glucose, [JUN Hold] dextrose, [JUN Hold] glucagon (rDNA), [JUN Hold] dextrose,[Jun] HYDROcodone 5 mg - acetaminophen, [JUN Hold] metoprolol, [JUN Hold] sodium chloride flush, [JUN Hold] potassium chloride OR [JUN Hold] potassium alternative oral replacement OR [JUN Hold] potassium chloride, [JUN Hold] magnesium sulfate, [JUN Hold] nicotine, [JUN Hold] acetaminophen OR [JUN Hold] acetaminophen, [JUN Hold] diphenhydrAMINE Data: Past Medical History: has a past medical history of Chronic pain syndrome and Essential hypertension. Social History: reports that he has never smoked. He has never used smokeless tobacco. He reports that he does not drink alcohol or use drugs. Family History: Family History Problem Relation Age of Onset No Known Problems Mother Hypertension Father Heart Attack Father at the age of 58 from heart attack Coronary Art Dis Father Cancer Maternal Grandfather Unknown Review of Systems: Review of Systems Constitutional: Positive for activity change (Decreased), appetite change (Improved) and unexpectedweight change. Respiratory: Negative for cough and shortness of breath. Cardiovascular: Negative for chest pain and palpitations. Gastrointestinal: Positive for abdominal pain (chronic ). Negative for nausea and vomiting. Genitourinary: Negative for flank pain and hematuria. Musculoskeletal: Positive for gait problem (Has been unsteady). Neurological: Positive for weakness ( generalized). Syncope: The plan has included: Psychiatric/Behavioral: Positive for sleep disturbance (Not sleeping well). Physical Examination: Physical Exam Vitals signs reviewed. Constitutional: General: He is not in acute distress. Appearance: He is ill-appearing. He is not diaphoretic. HENT: Head: Normocephalic. Nose: Nose normal. Eyes: General: No scleral icterus. Conjunctiva/sclera: Conjunctivae normal. Neck: Musculoskeletal: Neck supple. Trachea: No tracheal deviation. Cardiovascular: Rate and Rhythm: Normal rate and regular rhythm. Pulmonary: Effort: Pulmonary effort is normal. No respiratory distress. Breath sounds: Normal breath sounds. No wheezing or rales. Chest: Chest wall: No tenderness. Abdominal: General: Bowel sounds are normal. There is no distension. Palpations: Abdomen is soft. Tenderness: There is no abdominal tenderness. Musculoskeletal: General: No tenderness. Comments: Very poor muscle mass Skin: General: Skin is warm and dry. Coloration: Skin is pale. Vitals: BP (!) 128/103 Pulse 89 Temp 97.8 F (36.6 C) (Infrared) Resp 18 Ht 5' 10 (1.778 m) Wt 157 lb (71.2 kg) SpO2 98% BMI 22.53 kg/m Temp (24hrs), Av.9 F (36.6 C), Min:97.3 F (36.3 C), Max:98.4 F (36.9 C) Recent Labs 05/26/20 0658 05/26/20 1812 05/27/20 0226 05/27/20 0643 POCGLU 65* 102 99 95 I/O (24Hr): Intake/Output Summary (Last 24 hours) at 05/27/2020 1300 Last data filed at 05/27/2020 0215 Gross per 24 hour Intake Output 900 ml Net -900 ml Labs: Hematology: Recent Labs 05/25/20 0815 05/26/20 0456 05/27/20 0620 WBC 4.3 6.0 4.7 RBC 4.25 3.73* 3.57* HGB 12.1* 10.7* 10.2* HCT 39.5* 35.8* 32.5* MCV 92.9 96.0 91.0 MCH 28.5 28.7 28.6 MCHC 30.6 29.9 31.4 RDW 21.7* 21.9* 21.5* PLT 371 382 307 MPV 10.1 10.4 10.4 Chemistry: Recent Labs 05/25/20 0805/26/206 05/27/20 0620 NA 136 135 133* K 3.2* 4.0 4.5 CL 103 104 103 CO2 25 27 27 GLUCOSE 105* 78 110* BUN 11 9 10 CREATININE 0.36* 0.37* 0.28* MG 1.9 1.9 2.1 ANIONGAP 8* 4* 3* LABGLOM >60 >60 >60 GFRAA >60 >60 >60 CALCIUM 7.9* 7.4* 7.6* CAION -- 1.06* -- PHOS 3.1 2.7 2.6 Recent Labs 05/25/20 0805/25/20 0815 05/25/20 1542 05/25/20 2043 05/26/20 0456 05/26/20 0658 05/26/20 1812 05/27/20 0226 05/27/20 0620 05/27/20 0643 PROT 5.3* -- -- -- 4.6* -- -- -- 4.4* -- LABALBU 2.3* -- -- -- 2.0* -- -- -- 1.8* -- AST 72* -- -- -- 48* -- -- -- 35 -- ALT 62* -- -- -- 49* -- -- -- 35 -- ALKPHOS 196* -- -- -- 154* -- -- -- 155* -- BILITOT 0.61 -- -- -- 0.45 -- -- -- 0.33 -- TRIG 60 -- -- -- -- -- -- -- -- -- POCGLU -- < > 85 92 -- 65* 102 99 -- 95 < > = values in this interval not displayed. ABG:No results found for: POCPH, PHART, PH, POCPCO2, MYW4TOM, PCO2, POCPO2, PO2ART, PO2, POCHCO3, WUM4OSQ, HCO3, NBEA, PBEA, BEART, BE, THGBART, THB, YYG8GWN, KFWH3BUL, P9PLEKCU, O2SAT, FIO2 Lab Results Component Value Date/Time SPECIAL NOT REPORTED 04/03/2020 11:44 AM Lab Results Component Value Date/Time CULTURE NO GROWTH 04/03/2020 11:44 AM Radiology: Xr Abdomen (kub) (single Ap View) Result Date: 05/23/2020 1. Mildly distended loops of small bowel, which could be seen with obstruction or ileus. 2. Oral contrast within the colon. Ir Picc Wo Sq Port/pump > 5 Years Result Date: 05/25/2020 Successful ultrasound and fluoroscopy guided PICC placement. Okay to use PICC Assessment: Principal Problem: SBO (small bowel obstruction) (HCC) Active Problems: Severe malnutrition (HCC) Essential hypertension Bowel obstruction (HCC) History of Lauren-en-Y gastric bypass Acute hypokalemia Anemia, normocytic normochromic Hyponatremia Transaminasemia Fatty liver BMI less than 19,adult Hypocalcemia Hypoglycemia Esophageal stricture Ulcer of esophagus without bleeding Resolved Problems: * No resolved hospital problems. * Plan: Surgical evaluation and follow-up Dr. Moyer S/P EGD and dilation, GI eval and f/u Dr Lambert F/U EGD in a couple weeks to be arranged Carafate Protonix No Motrin Pain management TPN Correct electrolyte abnormalities Anemia w/u on outpatient basis is suggested Blood Pressure - Monitor and control Monitor liver function testing DC planning Will discharge when arrangements complete and ok with other services. Awaiting home care to be finalized Follow-up with PCP in one week, Notify PCP of discharge Med rec done JANEEN done [facility] placed DCP 35 min+ Face to face encounter today indicate the requirement of DME order of Rolling walker for the diagnosis of the Ambulatory Dysfunction Indication and side effects of treatment had been addressed with pt , pt agreeable to the current plan of using the DME Face to face encounter today indicate the requirement of DME order of shower chair for the diagnosis of the Ambulatory Dysfunction Indication and side effects of treatment had been addressed with pt , pt agreeable to the current plan of using the DME IP CONSULT TO BARIATRICS IP CONSULT TO BARIATRICS IP CONSULT TO DIETITIAN IP CONSULT TO DIETITIAN IP CONSULT TO PHARMACY IP CONSULT TO GI IP CONSULT TO HOME CARE NEEDS Ady Shine DO 05/27/2020 1:00 PM * Ella Neves RN - 05/26/2020 9:00 PM EST Patient's BP is 143/105. HR 96. Patient is asymptomatic. Notified HYBRID TESTER [facility] via [employer]. Will continue to monitor. * Telma Herring RCP - 05/26/2020 4:50 PM EST RAPID Covid 19 swab taken from right nare, labeled, placed in red dot bag, and handed off to [facility] outside of room for transport to laboratory per hospital policy and procedure. Patient tolerated procedure well. * Thao Conley PTA - 05/26/2020 3:02 PM EST Physical Therapy DATE: 05/26/2020 NAME: Sabina Espinoza : 1980 Patient not seen this date for Physical Therapy due to: Patient Declined: stating he is geeting ready to go home. * Sarah Greene - 05/26/2020 2:28 PM EST Occupational Therapy Occupational Therapy Not Seen Note DATE: 05/26/2020 Name: Sabina Espinoza : 1980 Patient not available for Occupational Therapy due to: Patient Declined: Pt verbally declined, pt not feeling well and anticipating discharge. * Edna Jimenes RD, LD - 05/26/2020 11:46 AM EST Comprehensive Nutrition Assessment Type and Reason for Visit: Reassess Nutrition Recommendations/Plan: -Continue NPO status -Restart diet as able -Recommend increasing TPN @ 65 mL/hr (1560 mLs) x 24 hrs + 20% of 200 mL IV lipids + 115 gms AA + 200 gms dextrose ~> 1500 kcals, 115 gms protein -Suggest increasing Ca in next bag -Will monitor TPN, labs, weights and restart of diet Nutrition Assessment: TPN continues. Pt currently NPO for possible EGD today. Labs reviewed. Pt remains nutritionally compromised aeb severe malnutrition. Will continue to monitor. Malnutrition Assessment: Malnutrition Status: Severe malnutrition Context: Chronic Illness Findings of the 6 clinical characteristics of malnutrition: Energy Intake: 7 - 75% or less estimated energy requirements for 1 month or longer Weight Loss: Unable to assess(Pt reported weight loss x past 6 months.) Body Fat Loss: 7 - Severe body fat loss Orbital, Triceps Muscle Mass Loss: 7 - Severe muscle mass loss Hand (interosseous), Clavicles (pectoralis & deltoids), Temples (temporalis) Fluid Accumulation: 1 - Mild Extremities Lace Cutter Strength: Not Performed Estimated Daily Nutrient Needs: Energy (kcal): 30-35 kcal/kg --> 0822-0933 kcal/day; Weight Used for Energy Requirements: Admission Protein (g): 1.5- 1.8--> 88-105 g/day pro; Weight Used for Protein Requirements: Admission Fluid (ml/day): ; Method Used for Fluid Requirements: Nutrition Related Findings: active bowel sounds; labs/meds reviewed Wounds: None Current Nutrition Therapies: PN-Adult 2-in-1 Central Line (Standard) Diet NPO Effective Now Exceptions are: Sips of Water with Meds, Ice Chips, Sips of Clear Liquids Current Parenteral Nutrition Orders: Type and Formula: 2-in-1 Peripheral Lipids: 100ml, Daily(x 2 per day) Duration: Continuous Rate/Volume: 55 mL/hr (1320 mL/day) Current PN Order Provides: 150 gms dextrose + 80 gms AA ~> 1230 kcals, 80 gms protein Goal PN Orders Provides: 200 gms dextrose + 105 gms AA ~> 1500 kcals, 105 gms protein Anthropometric Measures: Height: 5' 10 (177.8 cm) Current Body Weight: 129 lb (58.5 kg) Admission Body Weight: 129 lb (58.5 kg) [place] Body Weight: 166 lbs; % [place] Body Weight 77.7 % BMI: 18.5 BMI Categories: Normal Weight (BMI 18.5-24.9) Nutrition Diagnosis: Inadequate protein-energy intake related to altered GI function, impaired nutrient utilization as evidenced by NPO or clear liquid status due to medical condition, poor intake prior to admission, nutrition support - parenteral nutrition Nutrition Interventions: Food and/or Nutrient Delivery: Continue NPO, Modify Parenteral Nutrition(Restart diet as able) Nutrition Education/Counseling: Education not indicated Coordination of Nutrition Care: Continue to monitor while inpatient Goals: Progressing PN/Oral diet to meet 75-100% estimated nutrient needs. Nutrition Monitoring and Evaluation: Food/Nutrient Intake Outcomes: Parenteral Nutrition Intake/Tolerance, Diet Advancement/Tolerance Physical Signs/Symptoms Outcomes: Biochemical Data, GI Status, Nausea or Vomiting, Nutrition Focused Physical Findings, Skin, Weight Discharge Planning: Too soon to determine Contact: [phone] * Ady Shine DO - 05/26/2020 9:45 AM EST [facility] Office: [phone] Peña Billings DO, Ady Shine DO, Houston Cooper DO, Darell Krueger DO, Elena Allison MD, Hannah Rodrigues MD, Murphy Ball MD, Shraddha Hamm MD, Hipolito Rodriguez MD, Jannette Albert MD, MD Asher, Flor Donnelly MD, Elayne Cleaning MD, Nate Bone DO, Lopez Garcia MD, Gustavo Morillo MD, Fabricio Mo DO, Rosalio Green MD, Jose Bello DO, Gaurav Lopez MD, MD Sam, Latonia Chavez CORK INSULATOR, Eliz Esquivel CNP, Suzy Wu CNP, Blanche Desouza, [facility],Edgar Staton, CORK INSULATOR, Suyapa Almaguer, CORK INSULATOR, Cathy Ling, CORK INSULATOR, Loan Richardson, CORK INSULATOR, Hever Tomilnson, CORK INSULATOR, Niki Badillo PA-C, Arlyn Villegas, DOMINIQUE, Yuki Orosco, [place], Deneen Stone CNP, Leandra Rich CNP, Lazara Ballesteros CNP, Sapphire Rivera CNP [facility] IN-PATIENT SERVICE [facility] Progress Note 05/26/2020 10:03 AM Name: Sabina Espinoza Acct: [id number] Room: [address] [place] [address] Day: 3 Admit Date: 05/23/2020 8:14 PM PCP: No primary care provider on file. Code Status: Full Code Subjective: C/C: Abdominal pain Interval History Status: Pain controlled Appetite better Has been tolerating liquids Diet to be progressed to dental soft Tolerating TPN Data Base Updates: Hypoglycemic this a.m. [id number] WBC6.0k/uL RBC3.73Low m/uL Mnqhmbawiw25.7Low Calcium, Ion1.06Low Brief History: As documented in the medical record: This is a 40 year old male with a history of RNY presents with SBO and severe malnutrition currently being treated medically. Bariatrics consulted, no surgical intervention. Dietary consulted for nutrition recommendations The plan has included: Small Bowel obstruction: 2/2 adhesions, pt with a hx of RNY. Continue IVF. Due to weight loss and inability to tolerate PO intake, dietary consulted, pt will likely need TPN. Replace electrolytes, continue supportive care. Bariatrics consulted, no surgical intervention. Serial abdominal exams. Paincontrol, limit narcotic use. NPO, No NG due to stump. Severe Protein calorie malnutrition: Thiamine, daily multivitamin, dietary consulted, may need TPN. Acute Hypokalemia: replace electrolytes PRN NCNC anemia: Check iron studies, may benefit from IV iron pending results. Essential Hypertension: Currently well controlled. Resume home medications GERD: continue PPI DVT ppx PT/OT The patient reports his problems and abdominal pain have been present for 10 years following his first bypass surgery He has had a complicated history His weight has dropped from over 300 pounds under 120 pounds He states his weight historically has been approximately 165 pounds On 05/24 patient underwent PICC line placement TPN was initiated Anemia work-up has included: Results for SABINA ESPINOZA ( ) as of 05/25/2020 15:51 Ref. Range 03/31/2020 05:48 05/24/2020 04:38 05/24/2020 10:13 Ferritin Latest Ref Range: 30 - 400 ug/L 17 (L) 34 Iron Latest Ref Range: 59 - 158 ug/dL 17 (L) 52 (L) Iron Saturation Latest Ref Range: 20 - 55 % 9 (L) 31 UIBC Latest Ref Range: 112 - 347 ug/dL 181 116 TIBC Latest Ref Range: 250 - 450 ug/dL 198 (L) 168 (L) Vitamin B1,Whole Blood Latest Ref Range: 70 - 180 nmol/L 122 Folate Latest Ref Range: >4.8 ng/mL 14.7 Vitamin B-12 Latest Ref Range: 232 - 1245 pg/mL 565 EGD and dilation to be arranged Medications: Allergies: Allergies Allergen Reactions Prochlorperazine Valsartan Current Meds: Scheduled Meds: calcium gluconate IVPB 1,000 mg Intravenous Once therapeutic multivitamin-minerals 1 tablet Oral Daily thiamine 200 mg Oral Daily lidocaine 1 % injection 5 mL Intradermal Once sodium chloride flush 10 mL Intravenous 2 times per day gabapentin 300 mg Oral Q8H pantoprazole 40 mg Oral Daily enoxaparin 40 mg Subcutaneous Daily Continuous Infusions: dextrose fat emulsion 100 mL (05/26/20 0618) PN-Adult 2-in-1 Central Line (Standard) 55 mL/hr at 05/25/20 1816 lactated ringers 20 mL/hr at 05/25/20 1052 PRN Meds: glucose, dextrose, glucagon (rDNA), dextrose, morphine OR [DISCONTINUED] morphine, sodium chloride flush, potassium chloride OR potassium alternative oral replacement OR potassium chloride, magnesium sulfate, nicotine, acetaminophen OR acetaminophen, diphenhydrAMINE Data: Past Medical History: has a past medical history of Chronic pain syndrome and Essential hypertension. Social History: reports that he has never smoked. He has never used smokeless tobacco. He reports that he does not drink alcohol or use drugs. Family History: Family History Problem Relation Age of Onset No Known Problems Mother Hypertension Father Heart Attack Father at the age of 58 from heart attack Coronary Art Dis Father Cancer Maternal Grandfather Unknown Review of Systems: Review of Systems Constitutional: Positive for activity change (Decreased), appetite change (Improved) and unexpectedweight change. Respiratory: Negative for cough and shortness of breath. Cardiovascular: Negative for chest pain and palpitations. Gastrointestinal: Positive for abdominal pain (chronic ). Negative for nausea and vomiting. Genitourinary: Negative for flank pain and hematuria. Musculoskeletal: Positive for gait problem (Has been unsteady). Neurological: Positive for weakness ( generalized). Syncope: The plan has included: Psychiatric/Behavioral: Positive for sleep disturbance (Not sleeping well). Physical Examination: Physical Exam Vitals signs reviewed. Constitutional: General: He is not in acute distress. Appearance: He is ill-appearing. He is not diaphoretic. HENT: Head: Normocephalic. Nose: Nose normal. Eyes: General: No scleral icterus. Conjunctiva/sclera: Conjunctivae normal. Neck: Musculoskeletal: Neck supple. Trachea: No tracheal deviation. Cardiovascular: Rate and Rhythm: Normal rate and regular rhythm. Pulmonary: Effort: Pulmonary effort is normal. No respiratory distress. Breath sounds: Normal breath sounds. No wheezing or rales. Chest: Chest wall: No tenderness. Abdominal: General: Bowel sounds are normal. There is no distension. Palpations: Abdomen is soft. Tenderness: There is no abdominal tenderness. Musculoskeletal: General: No tenderness. Comments: Very poor muscle mass Skin: General: Skin is warm and dry. Coloration: Skin is pale. Vitals: BP (!) 130/97 Pulse 102 Temp 98.7 F (37.1 C) (Oral) Resp 16 Ht 5' 10 (1.778 m) Wt 129 lb(58.5 kg) SpO2 96% BMI 18.51 kg/m Temp (24hrs), Av.1 F (36.7 C), Min:97.6 F (36.4 C), Max:98.9 F (37.2 C) Recent Labs 05/25/20 1056 05/25/20 1542 05/25/20 2043 05/26/20 0658 POCGLU 102 85 92 65* I/O (24Hr): Intake/Output Summary (Last 24 hours) at 05/26/2020 1003 Last data filed at 05/26/2020 0438 Gross per 24 hour Intake Output 1100 ml Net -1100 ml Labs: Hematology: Recent Labs 05/24/20 0438 05/25/20 0815 05/26/20 0456 WBC 4.9 4.3 6.0 RBC 4.05* 4.25 3.73* HGB 11.7* 12.1* 10.7* HCT 36.0* 39.5* 35.8* MCV 88.9 92.9 96.0 MCH 28.9 28.5 28.7 MCHC 32.5 30.6 29.9 RDW 22.3* 21.7* 21.9* PLT 368 371 382 MPV 10.8 10.1 10.4 INR 1.2 -- -- Chemistry: Recent Labs 05/24/20 1542 05/25/20 0815 05/26/20 0456 NA 133* 136 135 K 3.1* 3.2* 4.0 CL 101 103 104 CO2 22 25 27 GLUCOSE 50* 105* 78 BUN 15 11 9 CREATININE 0.46* 0.36* 0.37* MG 1.8 1.9 1.9 ANIONGAP 10 8* 4* LABGLOM >60 >60 >60 GFRAA >60 >60 >60 CALCIUM 7.7* 7.9* 7.4* CAION -- -- 1.06* PHOS 3.6 3.1 2.7 Recent Labs 05/24/20 0438 05/24/20 0438 05/25/20 0205 05/25/20 0648 05/25/20 0815 05/25/20 1056 05/25/20 1542 05/25/20 2043 05/26/20 0456 05/26/20 0658 PROT 5.0* -- -- -- 5.3* -- -- -- 4.6* -- LABALBU 2.1* -- -- -- 2.3* -- -- -- 2.0* -- AST 66* -- -- -- 72* -- -- -- 48* -- ALT 55* -- -- -- 62* -- -- -- 49* -- ALKPHOS 171* -- -- -- 196* -- -- -- 154* -- BILITOT 0.61 -- -- -- 0.61 -- -- -- 0.45 -- TRIG -- < > -- -- 60 -- -- -- -- -- POCGLU -- -- 73* 70* -- 102 85 92 -- 65* < > = values in this interval not displayed. ABG:No results found for: POCPH, PHART, PH, POCPCO2, UIK4EYJ, PCO2, POCPO2, PO2ART, PO2, POCHCO3, RAJ8FWL, HCO3, NBEA, PBEA, BEART, BE, THGBART, THB, ABI5YHR, UUEM4TKD, A4QVXOZE, O2SAT, FIO2 Lab Results Component Value Date/Time SPECIAL NOT REPORTED 04/03/2020 11:44 AM Lab Results Component Value Date/Time CULTURE NO GROWTH 04/03/2020 11:44 AM Radiology: Xr Abdomen (kub) (single Ap View) Result Date: 05/23/2020 1. Mildly distended loops of small bowel, which could be seen with obstruction or ileus. 2. Oral contrast within the colon. Ir Picc Wo Sq Port/pump > 5 Years Result Date: 05/25/2020 Successful ultrasound and fluoroscopy guided PICC placement. Okay to use PICC Assessment: Principal Problem: SBO (small bowel obstruction) (HCC) Active Problems: Severe malnutrition (HCC) Essential hypertension Bowel obstruction (HCC) History of Lauren-en-Y gastric bypass Acute hypokalemia Anemia, normocytic normochromic Hyponatremia Transaminasemia Fatty liver Resolved Problems: * No resolved hospital problems. * Plan: Surgical evaluation and follow-up Dr. Moyer -EGD and dilation suggested, GI consulted Pain management TPN Correct electrolyte abnormalities Anemia w/u on outpatient basis is suggested Blood Pressure - Monitor and control Monitor liver function testing DC planning Will discharge when arrangements complete and ok with other services. Awaiting home care to be finalized Follow-up with PCP in one week, Notify PCP of discharge Med rec done JANEEN done [facility] placed DCP 35 min+ Face to face encounter today indicate the requirement of DME order of Rolling walker for the diagnosis of the Ambulatory Dysfunction Indication and side effects of treatment had been addressed with pt , pt agreeable to the current plan of using the DME Face to face encounter today indicate the requirement of DME order of shower chair for the diagnosis of the Ambulatory Dysfunction Indication and side effects of treatment had been addressed with pt , pt agreeable to the current plan of using the DME IP CONSULT TO BARIATRICS IP CONSULT TO BARIATRICS IP CONSULT TO DIETITIAN IP CONSULT TO DIETITIAN IP CONSULT TO PHARMACY IP CONSULT TO GI Ady Shine DO 05/26/2020 10:03 AM * Sapphire CamarilloDO - 05/26/2020 6:18 AM EST Bariatric Surgery: Daily Progress Note PATIENT NAME: Sabina Espinoza TODAY'S DATE: 05/26/2020, 6:18 AM CC: Abdominal pain SUBJECTIVE: Patient seen and examined at bedside. Continues to have lower abdominal pain that never goes away but is well controlled with percocet. Tolerating soft diet. Continues to pass lots of gas - states hecan feel that he will have a bowel movement soon. Denies nausea/vomiting, fevers/chills, sob/cp. OBJECTIVE: VITALS: BP (!) 127/107 Pulse 94 Temp 97.8 F (36.6 C) (Oral) Resp 16 Ht 5' 10 (1.778 m) Wt 129 lb (58.5 kg) SpO2 94% BMI 18.51 kg/m INTAKE/OUTPUT: Intake/Output Summary (Last 24 hours) at 05/26/2020 0618 Last data filed at 05/26/2020 0438 Gross per 24 hour Intake Output 1700 ml Net -1700 ml PHYSICAL EXAM: General Appearance: Appears malnourished, alert. HEENT: Normocephalic, atraumatic, mucus membranes moist Heart: Heart regular rate and rhythm Lungs: symmetrical rise and fall of chest, no acute respiratory distress Abdomen: Scaphoid abdomen, mildly tender to palpation in lower abdomen without guarding or rebound tenderness Extremities: No cyanosis, pitting edema, rashes noted. Skin: Skin color, texture, turgor normal. No rashes or lesions. Data: CBC with Differential: Lab Results Component Value Date WBC 6.0 05/26/2020 RBC 3.73 05/26/2020 HGB 10.7 05/26/2020 HCT 35.8 05/26/2020 PLT 382 05/26/2020 MCV 96.0 05/26/2020 MCH 28.7 05/26/2020 MCHC 29.9 05/26/2020 RDW 21.9 05/26/2020 LYMPHOPCT 29 05/26/2020 MONOPCT 9 05/26/2020 BASOPCT 0 05/26/2020 MONOSABS 0.54 05/26/2020 LYMPHSABS 1.74 05/26/2020 EOSABS 0.48 05/26/2020 BASOSABS 0.00 05/26/2020 DIFFTYPE NOT REPORTED 05/26/2020 CMP: Lab Results Component Value Date NA 135 05/26/2020 K 4.0 05/26/2020 CL 104 05/26/2020 CO2 27 05/26/2020 BUN 9 05/26/2020 CREATININE 0.37 05/26/2020 GFRAA >60 05/26/2020 LABGLOM >60 05/26/2020 GLUCOSE 78 05/26/2020 PROT 4.6 05/26/2020 LABALBU 2.0 05/26/2020 CALCIUM 7.4 05/26/2020 BILITOT 0.45 05/26/2020 ALKPHOS 154 05/26/2020 AST 48 05/26/2020 ALT 49 05/26/2020 Radiology Review: No new imaging to review ASSESSMENT: Active Hospital Problems Diagnosis Date Noted Anemia, normocytic normochromic [D64.9] 05/25/2020 Hyponatremia [E87.1] 05/25/2020 Transaminasemia [R74.01] 05/25/2020 Fatty liver [K76.0] 05/25/2020 History of Lauren-en-Y gastric bypass [Z98.84] 05/24/2020 Acute hypokalemia [E87.6] 05/24/2020 Bowel obstruction (HCC) [K56.609] 05/23/2020 Essential hypertension [I10] 04/02/2020 Severe malnutrition (HCC) [E43] 03/30/2020 SBO (small bowel obstruction) (HCC) [K56.609] 03/29/2020 40 yo M with history of Lauren-en-Y and extensive past surgical history due to internal hernia small bowel obstruction due to adhesive disease and dilated limbs, presents with severe malnutrition and chronic abdominal pain. Plan: 1. Continue medical management and supportive care per primary 2. Soft diet plus supplements 3. Continue TPN to optimize nutrition 4. Continue Protonix 5. GI consult - possible EGD for GJ dilation 6. OK for d/c from surgery standpoint after eval by GI Associated attestation - Daniel Moyer DO - 05/26/2020 9:34 AM EST I have discussed the care of the patient, including pertinent history and exam findings, with the resident. I have seen and examined the patient and the chapin elements of all parts of the encounter have been performed by me. I agree with the assessment, plan and orders as documented by the resident. Tolerating clears, did not have soft diet yet. Esophagus was dilated on CT, I do not have images, however, he did have some inflammation on EGD and GJ was narrow at last hospital visit. Given some concern for some narrowing at the gastrojejunostomy. Will consult GI. * Megan Ashley RN - 05/25/2020 8:07 PM EST Patient 89 was ambulating with Physical Therapy today around 10 am when he lost his footing and had a near miss fall event, patient was wearing gate belt and hit his left clavicle on door knob, was some redness upon inspection, but soon went away after thirty minutes round time. No bruising or pain, patient stated. * Ady Shine DO - 05/25/2020 3:41 PM EST [facility] Office: [phone] Peña Billings DO, Ady Shine DO, Houston Cooper DO, Darell Krueger DO, Elena Allison MD, Hannah Rodrigues MD, Murphy Ball MD, Shraddha Hamm MD, Hipolito Rodriguez MD, Jannette Albert MD, MD Asher, Flor Donnelly MD, Elayne Cleaning MD, Nate Bone DO, Lopez Garcia MD, Gustavo Morillo MD, Fabricio Mo DO, Rosalio Green MD, Jose Bello DO, Gaurav Lopez MD, MD Sam, Latonia Chavez, CORK INSULATOR, Eliz Esquivel, CORK INSULATOR, Suzy Wu, CORK INSULATOR, Blanche Desouza, LOFTER,Edgar Staton, CORK INSULATOR, Suyapa Almaguer, CORK INSULATOR, Cathy Ling, CORK INSULATOR, Loan Richardson, CORK INSULATOR, Hever Tomlinson, CORK INSULATOR, SARAH HartleyC, Arlyn Villegas, DOMINIQUE, Yuki Orosco, CORK INSULATOR, Deneen Stone, CORK INSULATOR, Leandra Rich, CORK INSULATOR, Lazara Ballesteros, CORK INSULATOR, Sapphire Rivera, CORK INSULATOR [facility] IN-PATIENT SERVICE [facility] Progress Note 05/25/2020 4:07 PM Name: Sabina Espinoza Acct: [id number] Room: 0239/0239-01 Day: 2 Admit Date: 05/23/2020 8:14 PM PCP: No primary care provider on file. Code Status: Full Code Subjective: C/C: Abdominal pain Interval History Status: More comfortable No nausea vomiting Pain controlled Not sleeping well Passing some flatus Data Base Updates: [id number] mg/dL CIV00ij/dL CREATININE0.36Low mg/dL Bun/Cre RatioNOT REPORTED Calcium7.9Low mg/dL Fprvmv749iunq/L Potassium3.2Low Brief History: As documented in the medical record: This is a 40 year old male with a history of RNY presents with SBO and severe malnutrition currently being treated medically. Bariatrics consulted, no surgical intervention. Dietary consulted for nutrition recommendations The plan has included: Small Bowel obstruction: 2/2 adhesions, pt with a hx of RNY. Continue IVF. Due to weight loss and inability to tolerate PO intake, dietary consulted, pt will likely need TPN. Replace electrolytes, continue supportive care. Bariatrics consulted, no surgical intervention. Serial abdominal exams. Paincontrol, limit narcotic use. NPO, No NG due to stump. Severe Protein calorie malnutrition: Thiamine, daily multivitamin, dietary consulted, may need TPN. Acute Hypokalemia: replace electrolytes PRN NCNC anemia: Check iron studies, may benefit from IV iron pending results. Essential Hypertension: Currently well controlled. Resume home medications GERD: continue PPI DVT ppx PT/OT The patient reports his problems and abdominal pain have been present for 10 years following his first bypass surgery He has had a complicated history His weight has dropped from over 300 pounds under 120 pounds He states his weight historically has been approximately 165 pounds On 05/24 patient underwent PICC line placement TPN was initiated Anemia work-up has included: Results for SABINA ESPINOZA ( ) as of 05/25/2020 15:51 Ref. Range 03/31/2020 05:48 05/24/2020 04:38 05/24/2020 10:13 Ferritin Latest Ref Range: 30 - 400 ug/L 17 (L) 34 Iron Latest Ref Range: 59 - 158 ug/dL 17 (L) 52 (L) Iron Saturation Latest Ref Range: 20 - 55 % 9 (L) 31 UIBC Latest Ref Range: 112 - 347 ug/dL 181 116 TIBC Latest Ref Range: 250 - 450 ug/dL 198 (L) 168 (L) Vitamin B1,Whole Blood Latest Ref Range: 70 - 180 nmol/L 122 Folate Latest Ref Range: >4.8 ng/mL 14.7 Vitamin B-12 Latest Ref Range: 232 - 1245 pg/mL 565 Medications: Allergies: Allergies Allergen Reactions Prochlorperazine Valsartan Current Meds: Scheduled Meds: therapeutic multivitamin-minerals 1 tablet Oral Daily thiamine 200 mg Oral Daily lidocaine 1 % injection 5 mL Intradermal Once sodium chloride flush 10 mL Intravenous 2 times per day gabapentin 300 mg Oral Q8H pantoprazole 40 mg Oral Daily enoxaparin 40 mg Subcutaneous Daily Continuous Infusions: fat emulsion Followed by [START ON 05/26/2020] fat emulsion PN-Adult 2-in-1 Central Line (Standard) PN-Adult 2-in-1 Peripheral Line (Standard) 55 mL/hr at 05/24/20 1824 fat emulsion Stopped (05/25/20 1603) lactated ringers 20 mL/hr at 05/25/20 1052 PRN Meds: morphine OR [DISCONTINUED] morphine, sodium chloride flush, potassium chloride ORpotassium alternative oral replacement OR potassium chloride, magnesium sulfate, nicotine, acetaminophen OR acetaminophen, diphenhydrAMINE Data: Past Medical History: has a past medical history of Chronic pain syndrome and Essential hypertension. Social History: reports that he has never smoked. He has never used smokeless tobacco. He reports that he does not drink alcohol or use drugs. Family History: Family History Problem Relation Age of Onset No Known Problems Mother Hypertension Father Heart Attack Father at the age of 58 from heart attack Coronary Art Dis Father Cancer Maternal Grandfather Unknown Review of Systems: Review of Systems Constitutional: Positive for activity change (Decreased), appetite change (diminished ) and unexpected weight change. Respiratory: Negative for cough and shortness of breath. Cardiovascular: Negative for chest pain and palpitations. Gastrointestinal: Positive for abdominal pain (chronic ). Negative for nausea and vomiting. Genitourinary: Negative for flank pain and hematuria. Neurological: Positive for weakness ( generalized). Syncope: The plan has included: Psychiatric/Behavioral: Positive for sleep disturbance (Not sleeping well). Physical Examination: Physical Exam Vitals signs reviewed. Constitutional: General: He is not in acute distress. Appearance: He is ill-appearing. He is not diaphoretic. HENT: Head: Normocephalic. Nose: Nose normal. Eyes: General: No scleral icterus. Conjunctiva/sclera: Conjunctivae normal. Neck: Musculoskeletal: Neck supple. Trachea: No tracheal deviation. Cardiovascular: Rate and Rhythm: Normal rate and regular rhythm. Pulmonary: Effort: Pulmonary effort is normal. No respiratory distress. Breath sounds: Normal breath sounds. No wheezing or rales. Chest: Chest wall: No tenderness. Abdominal: General: Bowel sounds are normal. There is no distension. Palpations: Abdomen is soft. Tenderness: There is no abdominal tenderness. Musculoskeletal: General: No tenderness. Comments: Very poor muscle mass Skin: General: Skin is warm and dry. Vitals: BP (!) 156/108 Pulse 87 Temp 98.9 F (37.2 C) (Oral) Resp 16 Ht 5' 10 (1.778 m) Wt 129 lb(58.5 kg) SpO2 99% BMI 18.51 kg/m Temp (24hrs), Av.8 F (36.6 C), Min:97.4 F (36.3 C), Max:98.9 F (37.2 C) Recent Labs 05/25/20 0205 05/25/20 0648 05/25/20 1056 05/25/20 1542 POCGLU 73* 70* 102 85 I/O (24Hr): Intake/Output Summary (Last 24 hours) at 05/25/2020 1607 Last data filed at 05/25/2020 0623 Gross per 24 hour Intake 1932 ml Output 1300 ml Net 632 ml Labs: Hematology: Recent Labs 05/23/20205005/24/2043705/25/20 0815 WBC 5.7 4.9 4.3 RBC 3.93* 4.05* 4.25 HGB 11.1* 11.7* 12.1* HCT 36.3* 36.0* 39.5* MCV 92.4 88.9 92.9 MCH 28.2 28.9 28.5 MCHC 30.6 32.5 30.6 RDW 22.8* 22.3* 21.7* PLT 416 368 371 MPV 9.9 10.8 10.1 INR -- 1.2 -- Chemistry: Recent Labs 05/24/2043705/24/20 1542 05/25/20 0815 NA 136 133* 136 K 3.5* 3.1* 3.2* CL 106 101 103 CO2 23 22 25 GLUCOSE 62* 50* 105* BUN 17 15 11 CREATININE 0.50* 0.46* 0.36* MG 1.7 1.8 1.9 ANIONGAP 7* 10 8* LABGLOM >60 >60 >60 GFRAA >60 >60 >60 CALCIUM 8.1* 7.7* 7.9* PHOS -- 3.6 3.1 Recent Labs 05/23/20205005/24/2043705/24/2043705/25/20 0205 05/25/20 0648 05/25/20 0815 05/25/20 1056 05/25/20 1542 PROT 4.8* 5.0* -- -- -- 5.3* -- -- LABALBU 2.0* 2.1* -- -- -- 2.3* -- -- AST 47* 66* -- -- -- 72* -- -- ALT 51* 55* -- -- -- 62* -- -- ALKPHOS 171* 171* -- -- -- 196* -- -- BILITOT 0.54 0.61 -- -- -- 0.61 -- -- TRIG -- -- < > -- -- 60 -- -- POCGLU -- -- -- 73* 70* -- 102 85 < > = values in this interval not displayed. ABG:No results found for: POCPH, PHART, PH, POCPCO2, JDZ3CVM, PCO2, POCPO2, PO2ART, PO2, POCHCO3, NIS4BOR, HCO3, NBEA, PBEA, BEART, BE, THGBART, THB, LQF4YYJ, FPBW8XDI, K1TYHISF, O2SAT, FIO2 Lab Results Component Value Date/Time SPECIAL NOT REPORTED 04/03/2020 11:44 AM Lab Results Component Value Date/Time CULTURE NO GROWTH 04/03/2020 11:44 AM Radiology: Xr Abdomen (kub) (single Ap View) Result Date: 05/23/2020 1. Mildly distended loops of small bowel, which could be seen with obstruction or ileus. 2. Oral contrast within the colon. Ir Picc Wo Sq Port/pump > 5 Years Result Date: 05/25/2020 Successful ultrasound and fluoroscopy guided PICC placement. Okay to use PICC Assessment: Principal Problem: SBO (small bowel obstruction) (HCC) Active Problems: Severe malnutrition (HCC) Essential hypertension Bowel obstruction (HCC) History of Lauren-en-Y gastric bypass Acute hypokalemia Anemia, normocytic normochromic Hyponatremia Transaminasemia Fatty liver Resolved Problems: * No resolved hospital problems. * Plan: Surgical evaluation and follow-up Dr. Moyre Pain management TPN Correct electrolyte abnormalities Anemia w/u on outpatient basis is suggested Blood Pressure - Monitor and control Monitor liver function testing DC planning Will discharge when arrangements complete and ok with other services. Awaiting home care to be finalized Follow-up with PCP in one week, Notify PCP of discharge Face to face encounter today indicate the requirement of DME order of Rolling walker for the diagnosis of the Ambulatory Dysfunction Indication and side effects of treatment had been addressed with pt , pt agreeable to the current plan of using the DME Face to face encounter today indicate the requirement of DME order of shower chair for the diagnosis of the Ambulatory Dysfunction Indication and side effects of treatment had been addressed with pt , pt agreeable to the current plan of using the DME IP CONSULT TO BARIATRICS IP CONSULT TO BARIATRICS IP CONSULT TO IV TEAM IP CONSULT TO DIETITIAN IP CONSULT TO DIETITIAN IP CONSULT TO PHARMACY Ady Shine DO 05/25/2020 4:07 PM * Niki Payne, OT - 05/25/2020 1:37 PM EST Occupational Therapy Occupational Therapy Initial Assessment Date: 05/25/2020 Patient Name: Sabina Espinoza : 1980 Date of Service: 05/25/2020 Discharge Recommendations: Patient would benefit from continued therapy after discharge OT Equipment Recommendations Equipment Needed: Yes Mobility Devices: ADL Assistive Devices ADL Assistive Devices: Transfer Tub Bench;Coverage Specialist Rn;Sock-Aid Hard Assessment Performance deficits / Impairments: Decreased functional mobility ;Decreased endurance;Decreased balance;Decreased high-level IADLs Prognosis: Good Decision Making: Medium Complexity OT Education: OT Role;Plan of Care;Transfer Training;ADL Adaptive Strategies;Precautions;Energy Conservation REQUIRES OT FOLLOW UP: Yes Activity Tolerance Activity Tolerance: Patient Tolerated treatment well;Patient limited by fatigue;Patient limited by pain Safety Devices Safety Devices in place: Yes Type of devices: All fall risk precautions in place;Call light within reach;Gait belt;Left in bed;Nurse notified Restraints Initially in place: No Patient Diagnosis(es): There were no encounter diagnoses. has a past medical history of Chronic pain syndrome and Essential hypertension. has a past surgical history that includes Dilatation, esophagus; Cholecystectomy; Gastric bypass surgery; knee surgery (Right); Uvulopalatopharygoplasty; Tonsillectomy; laparotomy (01/29/2020); laparoscopy (N/A, 03/30/2020); Abdominal exploration surgery (04/03/2020); laparotomy (N/A, 04/03/2020); and picc powerpicc double (04/05/2020). Restrictions Restrictions/Precautions Restrictions/Precautions: General Precautions, Fall Risk Required Braces or Orthoses?: No Position Activity Restriction Other position/activity restrictions: Up with assist Subjective General Patient assessed for rehabilitation services?: Yes Family / Caregiver Present: No Diagnosis: SBO, malnutrition, chronic Abd pain Patient Currently in Pain: Yes Pain Assessment Pain Assessment: 0-10 Pain Level: 8 Pain Type: Chronic pain Pain Location: Abdomen;Rib cage Pain Descriptors: Aching;Discomfort;Sore;Tender Pain Frequency: Continuous Non-Pharmaceutical Pain Intervention(s): Ambulation/Increased Activity;Distraction;Emotional support;Therapeutic presence Response to Pain Intervention: Patient Satisfied Vital Signs Patient Currently in Pain: Yes Height and Weight Height: 5' 10 (177.8 cm) Social/Functional History Social/Functional History Lives With: Family(Parents) Type of Home: Mobile home Home Layout: One level Home Access: Ramped entrance Bathroom Shower/Tub: Tub/Shower unit Bathroom Toilet: Handicap height Bathroom Equipment: Shower chair ADL Assistance: Independent Homemaking Assistance: Independent Homemaking Responsibilities: Yes Ambulation Assistance: Independent Transfer Assistance: Independent Active Steam Powerplant Supervisor: No Patient's Steam Powerplant Supervisor Info: Parents drive Occupation: Unemployed Type of occupation: Applying for disability Leisure & Hobbies: [place] Objective Vision: Impaired(Pt doesn't wear his glasses) Hearing: Within functional limits Orientation Overall Orientation Status: Within Functional Limits Balance Sitting Balance: Supervision Standing Balance: Stand by assistance Standing Balance Time: 22 min Activity: Pt stood bedside, sinkside, func mob to/from bathroom Functional Mobility Functional - Mobility Device: Rolling Walker Activity: To/from bathroom Assist Level: Contact guard assistance Functional Mobility Comments: Slow pace, some unsteadiness noted, needs practice using RW properly,pt did have new rollator ordered during this hospital stay, CTA ADL Feeding: Modified independent Grooming: Supervision UE Bathing: Stand by assistance LE Bathing: Stand by assistance;Increased time to complete UE Dressing: Stand by assistance;Increased time to complete LE Dressing: Contact guard assistance;Increased time to complete Toileting: Contact guard assistance;Increased time to complete Additional Comments: Pt stood sinkside for grooming and UB bathing activity, pt stood for pily-bottom care, pt sat for LB bathing/dressing activity, pt relied on BUE strength to atain figure-4 posture to prevent bending at Abd, pt enjoyed using sock-aid device, some unsteadiness when standing Tone RUE RUE Tone: Normotonic Tone LUE LUE Tone: Normotonic Coordination Movements Are Fluid And Coordinated: No Coordination and Movement description: Decreased speed Bed mobility Supine to Sit: Stand by assistance Sit to Supine: Stand by assistance Scooting: Supervision Comment: Pt supine in bed upon arrival/exit this date with call light Transfers Sit to stand: Stand by assistance Stand to sit: Stand by assistance Cognition Overall Cognitive Status: WFL Sensation Overall Sensation Status: Impaired(Chronic numbness in B/L feet) LUE AROM (degrees) LUE AROM : WFL RUE AROM (degrees) RUE AROM : WFL LUE Strength Gross LUE Strength: WFL L Shoulder Flex: 4+/5 L Elbow Flex: 4+/5 L Elbow Ext: 4+/5 L Hand General: 4+/5 RUE Strength Gross RUE Strength: WFL R Shoulder Flex: 4+/5 R Elbow Flex: 4+/5 R Elbow Ext: 4+/5 R Hand General: 4+/5 Plan Plan Times per week: 3-5x AM-PAC Score AM-PAC Inpatient Daily Activity Raw Score: 20 (05/25/201326) AM-PAC Inpatient ADL T-Scale Score : 42.03 (05/25/201326) ADL Inpatient CMS 0-100% Score: 38.32 (05/25/201326) ADL Inpatient CMS G-Code Modifier : CJ (05/25/201326) Goals Short term goals Time Frame for Short term goals: Pt will by discharge Short term goal 1: demo good safety awareness during func mob around room using LRD and Mod I Short term goal 2: demo ADL UB bathing/dressing activity with mod I Short term goal 3: demo ADL LB bathing/dressing activity with AE PRN, and SUP Short term goal 4: demo bending/reaching func activity while standing with CGA and LRD Short term goal 5: demo 2 EC/WS tech's during func activity with 1 vc Therapy Time Individual Concurrent Group Co-treatment Time In 1100 Time Out 1149 Minutes 49 Timed Code Treatment Minutes: 39 Minutes Niki Payne OTR/L * Keshai Don RD, LD - 05/25/2020 1:33 PM EST Comprehensive Nutrition Assessment Type and Reason for Visit: Reassess Nutrition Recommendations/Plan: - Continue Full Liquid diet. Encourage intakes/monitor for diet advancement. Will provide frozen Magic Cups x 2 per day. - Continue Parenteral Nutrition - switch to TPN as PICC has been placed. Continue at 55 mL/hr. Suggest in next bag increase Dextrose to 150 gm, AA to 80 gm, and increase K+ and Ca. Continue 100 mL 20% IV lipids x 2 per day. Will provide 1230 kcals, 80 gm pro/day. - Monitor labs and modify TPN as needed. Nutrition Assessment: Pt has been restarted on liquid diet - at visit taking some of a Full Liquid diet. PICC line placed yesterday. PN to continue - will switch over to TPN today. Discussed with RN.Labs reviewed: K 3.2 mmol/L, Ca 7.9 mg/dL. Malnutrition Assessment: Malnutrition Status: Severe malnutrition Context: Chronic Illness Findings of the 6 clinical characteristics of malnutrition: Energy Intake: 7 - 75% or less estimated energy requirements for 1 month or longer Weight Loss: Unable to assess - Pt reported weight loss x past 6 months. Body Fat Loss: 7 - Severe body fat loss Orbital, Triceps Muscle Mass Loss: 7 - Severe muscle mass loss Hand (interosseous), Clavicles (pectoralis & deltoids), Temples (temporalis) Fluid Accumulation: Unable to assess Lace Cutter Strength: Not Performed Estimated Daily Nutrient Needs: Energy (kcal): 30-35 kcal/kg --> 5399-9048 kcal/day; Weight Used for Energy Requirements: Admission Protein (g): 1.5- 1.8--> 88-105 g/day pro; Weight Used for Protein Requirements: Admission Nutrition Related Findings: Labs: K 3.2 mmol/L, Ca 7.9 mg/dL. Meds: MVI, Thiamine. Wounds: None Current Nutrition Therapies: PN-Adult 2-in-1 Peripheral Line (Standard) DIET FULL LIQUID; PN-Adult 2-in-1 Central Line (Standard) Current Parenteral Nutrition Orders: Type and Formula: 2-in-1 Peripheral Lipids: 100ml, Daily(x 2 per day) Duration: Continuous Rate/Volume: 55 mL/hr (1320 mL/day) Current PN Order Provides: PPN at 55 mL/hr with 100 gm Dextrose, 42.5 gm AA + 100 mL 20% IV lipids x 2 per day = 910 kcals, 42.5 gm pro/day Anthropometric Measures: Height: 5' 10 (177.8 cm) Current Body Weight: 129 lb (58.5 kg) [place] Body Weight: 166 lbs; % [place] Body Weight 77.7 % BMI: 18.5 BMI Categories: Normal Weight (BMI 18.5-24.9) Nutrition Diagnosis: Inadequate protein-energy intake related to altered GI function, impaired nutrient utilization as evidenced by NPO or clear liquid status due to medical condition, poor intake prior to admission, nutrition support - parenteral nutrition In context of chronic illness, Severe malnutrition related to altered GI function, altered GI structure, impaired nutrient utilization, inadequate protein-energy intake as evidenced by poor intake prior to admission, severe muscle loss, severe loss of subcutaneous fat Nutrition Interventions: Food and/or Nutrient Delivery: Continue Current Diet, Start Oral Nutrition Supplement, Continue Current Parenteral Nutrition(Provide frozen Magic Cups x 2 per day. Switch PPN over to TPN.) Nutrition Education/Counseling: No recommendation at this time Coordination of Nutrition Care: Continue to monitor while inpatient Goals: PN/Oral diet to meet 75-100% estimated nutrient needs. Nutrition Monitoring and Evaluation: Food/Nutrient Intake Outcomes: Parenteral Nutrition Intake/Tolerance, Diet Advancement/Tolerance, Food and Nutrient Intake, Supplement Intake Physical Signs/Symptoms Outcomes: Biochemical Data, GI Status, Nausea or Vomiting, Nutrition Focused Physical Findings, Skin, Weight Contact: * Sugey Moss PTA - 05/25/2020 12:12 PM EST Physical Therapy Facility/Department: [address] ORTHO/MED SURG Daily Treatment Note NAME: Sabina Espinoza : 1980 Date of Service: 05/25/2020 Discharge Recommendations: Patient would benefit from continued therapy after discharge PT Equipment Recommendations Equipment Needed: Yes Mobility Devices: Walker Walker: Rolling Assessment Body structures, Functions, Activity limitations: Decreased functional mobility ;Decreased endurance;Decreased strength Assessment: The pt ambulated 300 ft with a RW x CGA. one incident of LOB noted wit static standing.He reported significant fatigue following ambulation. He could benefit from a continuation of PTforgait and strengthening following his DC Prognosis: Good Activity Tolerance Activity Tolerance: Patient limited by fatigue;Patient Tolerated treatment well Patient Diagnosis(es): There were no encounter diagnoses. has a past medical history of Chronic pain syndrome and Essential hypertension. has a past surgical history that includes Dilatation, esophagus; Cholecystectomy; Gastric bypass surgery; knee surgery (Right); Uvulopalatopharygoplasty; Tonsillectomy; laparotomy (01/29/2020); laparoscopy (N/A, 03/30/2020); Abdominal exploration surgery (04/03/2020); laparotomy (N/A, 04/03/2020); and picc powerpicc double (04/05/2020). Restrictions Position Activity Restriction Other position/activity restrictions: Up with assist Subjective General Chart Reviewed: Yes Response To Previous Treatment: Patient with no complaints from previous session. 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 While content writer kneeled down to adjust pt's sock to prevent possible tripping, The pt started to lean to the L and required maxA to regain balance. Pt bumped L clavicle on door leaving a red spot. RN notified Stairs/Curb Stairs?: No Balance Posture: Good Sitting - Static: Good Sitting - Dynamic: Fair Standing - Static: Fair Standing - Dynamic: Fair Comments: standing balance assessed with RW Exercises Seated LE exercise program: Long Arc Quads, hip abduction/adduction, heel/toe raises, and marches. Reps: x10 Supine Exercises: Ankle Pumps, Gluteal sets, Hamstring Sets, Heel Slides, Hip ABD/ADD, Hip IR/ER, Quad Sets, SAQ, SLR. Reps: x10 Goals Short term goals Time Frame for Short term goals: 10 visits Short term goal 1: transfers with SBA Short term goal 2: amb 250 ft with a RW x SBA Short term goal 3: ascend/descend 4 steps with SBA Short term goal 4: exercise program x SBA Patient Goals Patient goals : Return home Plan Plan Times per week: 5-6x wk Current Treatment Recommendations: Strengthening, Functional Mobility Training, Gait Training, Safety Education & Training, Endurance Training, Stair training Safety Devices Type of devices: Nurse notified, Left in bed, Call light within reach Therapy Time Individual Concurrent Group Co-treatment Time In 931 Time Out 1010 Minutes 38 Timed Code Treatment Minutes: 38 Minutes Sugey Moss PTA * Saige Hernandez MD - 05/25/2020 6:45 AM EST Bariatric Surgery: Daily Progress Note PATIENT NAME: Sabina Espinoza TODAY'S DATE: 05/25/2020, 6:49 AM CC: Abdominal pain SUBJECTIVE: Patient seen and examined at bedside. Patient states he feels better overall. States abdominal painis improved. Patient is passing flatus and tolerating clear liquid diet. TPN started yesterday. OBJECTIVE: VITALS: BP (!) 135/100 Pulse 149 Temp 97.5 F (36.4 C) (Oral) Resp 14 Ht 5' 10 (1.778 m) Wt 129 lb (58.5 kg) SpO2 99% BMI 18.51 kg/m INTAKE/OUTPUT: Intake/Output Summary (Last 24 hours) at 05/25/2020 0649 Last data filed at 05/25/2020 0623 Gross per 24 hour Intake 1932 ml Output 1300 ml Net 632 ml PHYSICAL EXAM: General Appearance: Appears malnourished, alert. HEENT: Normocephalic, atraumatic, mucus membranes moist Heart: Heart regular rate and rhythm Lungs: symmetrical rise and fall of chest, no acute respiratory distress Abdomen: Scaphoid abdomen, mildly tender to palpation Incision: well healed surgical scars Extremities: No cyanosis, pitting edema, rashes noted. Skin: Skin color, texture, turgor normal. No rashes or lesions. Data: CBC with Differential: Lab Results Component Value Date WBC 4.9 05/24/2020 RBC 4.05 05/24/2020 HGB 11.7 05/24/2020 HCT 36.0 05/24/2020 PLT 368 05/24/2020 MCV 88.9 05/24/2020 MCH 28.9 05/24/2020 MCHC 32.5 05/24/2020 RDW 22.3 05/24/2020 LYMPHOPCT 32 05/24/2020 MONOPCT 8 05/24/2020 BASOPCT 2 05/24/2020 MONOSABS 0.39 05/24/2020 LYMPHSABS 1.57 05/24/2020 EOSABS 0.29 05/24/2020 BASOSABS 0.10 05/24/2020 DIFFTYPE NOT REPORTED 05/24/2020 CMP: Lab Results Component Value Date NA 133 05/24/2020 K 3.1 05/24/2020 CL 101 05/24/2020 CO2 22 05/24/2020 BUN 15 05/24/2020 CREATININE 0.46 05/24/2020 GFRAA >60 05/24/2020 LABGLOM >60 05/24/2020 GLUCOSE 50 05/24/2020 PROT 5.0 05/24/2020 LABALBU 2.1 05/24/2020 CALCIUM 7.7 05/24/2020 BILITOT 0.61 05/24/2020 ALKPHOS 171 05/24/2020 AST 66 05/24/2020 ALT 55 05/24/2020 Radiology Review: KUB 05/24/20 Impression 1. Mildly distended loops of small bowel, which could be seen with obstruction or ileus. 2. Oral contrast within the colon. ASSESSMENT: Active Hospital Problems Diagnosis Date Noted History of Lauren-en-Y gastric bypass [Z98.84] 05/24/2020 Acute hypokalemia [E87.6] 05/24/2020 Bowel obstruction (HCC) [K56.609] 05/23/2020 Intra-abdominal adhesions s/p lysis [K66.0] 04/12/2020 Essential hypertension [I10] 04/02/2020 Severe malnutrition (HCC) [E43] 03/30/2020 SBO (small bowel obstruction) (HCC) [K56.609] 03/29/2020 40 yo M with history of Lauren-en-Y and extensive past surgical history due to internal hernia small bowel obstruction due to adhesive disease and dilated limbs, presents with severe malnutrition and chronic abdominal pain. Plan: 1. Continue medical management and supportive care per primary 2. Advance to full liquid diet No acute surgical intervention at this time. Patient is severely malnourished continue TPN. Associated attestation - Daniel Moyer DO - 05/25/2020 8:56 PM EST I have discussed the care of the patient, including pertinent history and exam findings, with the resident. I have seen and examined the patient and the chapin elements of all parts of the encounter have been performed by me. I agree with the assessment, plan and orders as documented by the resident. Tolerating clears. Passing flatus TPN has been initiated Will advance to soft diet * Jose Bello DO - 05/24/2020 3:31 PM EST Sabina Espinoza was evaluated today and a DME order was entered for a wheeled walker with seat becausehe requires this to successfully complete daily living tasks of eating, bathing, toileting, personal cares and ambulating. 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 These tasks cannot be completed with a lesser ambulation device such as a cane, crutch, or standard walker. The need for this equipment was discussed with the patient and he understands and is in agreement. Sabina Espinoza was evaluated today and a DME order was entered for a standard shower chair because herequires this to successfully complete daily living tasks of bathing. A standard shower chair is necessary due to patient's impaired ambulation and mobility restrictions and would be unable to resolve these daily living tasks using a cane or walker. The patient is capable of using a shower chair safely in their home. There is a caregiver available to provide necessary assistance. The need for this equipment was discussed with the patient and he understands, is in agreement, and has not expressed an unwillingness to use the wheelchair. Mohammad Mashaleh * Sue Oliveros RN - 05/24/2020 2:14 PM EST Pt arrives to room for DL PICC placement BD RT and BA RT to bedside Site prepped and draped JR PA to room access obtained and trimmed at 36cm Tolerated well Flushed well Ok to use Secured and dsd applied * Niki Payne, OT - 05/24/2020 2:05 PM EST Occupational Therapy Occupational Therapy Not Seen Note DATE: 05/24/2020 Name: Sabina Espinoza : 1980 Patient not available for Occupational Therapy due to: Surgery/Procedure: Pt with PT upon first attempt in am, pt leaving for IR for central line placement upon attempt in pm. Next Scheduled Treatment: Attempt on 05/25 as appropriate. * Vibha Jean, MS, RD, LD - 05/24/2020 1:46 PM EST Comprehensive Nutrition Assessment Type and Reason for Visit: Initial, Consult(TPN Order) Nutrition Recommendations/Plan: 1. Continue NPO status 2. Recommend PPN @ 55 mL/hr (1320 mL). Continuous to provide 100 g dextrose, 43 g AA, 20% of 200 mLIV lipids to provide 910 kcals, 43 g/day pro 3. Monitor PPN, weights, and labs Nutrition Assessment: Pt admitted for SBO and Severe Malnutrition. 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 Pt reports significant weight loss of 50 lbs since 09/2019. Unable to confirm per chart review. Upon visual exanimation, pt has severe muscle wasting and subcutaneous fat loss and is severely malnourished. Pt reports no nutrition last 3 days and only able to keepdown certain foods due to emesis. 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 RD consulted to initiate PPN. Discussed with RN and Pharmacist. Anticipate PICC line. Malnutrition Assessment: Malnutrition Status: Severe malnutrition Context: Chronic Illness Findings of the 6 clinical characteristics of malnutrition: Energy Intake: 7 - 75% or less estimated energy requirements for 1 month or longer Weight Loss: Unable to assess Body Fat Loss: 7 - Severe body fat loss Orbital, Triceps Muscle Mass Loss: 7 - Severe muscle mass loss Hand (interosseous), Clavicles (pectoralis & deltoids), Temples (temporalis) Fluid Accumulation: Unable to assess Lace Cutter Strength: Not Performed Estimated Daily Nutrient Needs: Energy (kcal): 30-35 kcal/kg --> 4047-8135 kcal/day; Weight Used for Energy Requirements: Admission Protein (g): 1.5- 1.8--> 88-105 g/day pro; Weight Used for Protein Requirements: Admission Nutrition Related Findings: Labs K 3.5 mmol/L, Glu 62 mg/dL, Ca 8.1 mg/dL. Meds MV, Thiamine, LR Wounds: None Current Nutrition Therapies: Diet NPO Effective Now Exceptions are: Sips of Water with Meds, Ice Chips, Sips of Clear Liquids Anthropometric Measures: Height: 5' 10 (177.8 cm) Current Body Weight: 129 lb (58.5 kg) [place] Body Weight: 166 lbs; % [place] Body Weight 77.7 % BMI: 18.5 Nutrition Diagnosis: Inadequate protein-energy intake related to impaired nutrient utilization, altered GI function, altered GI structure as evidenced by NPO or clear liquid status due to medical condition, intake 0-25%,poor intake prior to admission In context of chronic illness, Severe malnutrition related to altered GI function, altered GI structure, impaired nutrient utilization, inadequate protein-energy intake as evidenced by poor intake prior to admission, severe muscle loss, severe loss of subcutaneous fat Nutrition Interventions: Food and/or Nutrient Delivery: Start Parenteral Nutrititon Coordination of Nutrition Care: Continue to monitor while inpatient Goals: Initiate PN to meet 75-100% estimated nutrient needs Nutrition Monitoring and Evaluation: Food/Nutrient Intake Outcomes: Parenteral Nutrition Intake/Tolerance Physical Signs/Symptoms Outcomes: Biochemical Data, Weight Discharge Planning: Too soon to determine Contact: [phone] * Sugey Moreno Samantha, PT - 05/24/2020 12:49 PM EST Physical Therapy Facility/Department: [address] ORTHO/MED SURG Initial Assessment NAME: Sabina Espinoza : 1980 Date of Service: 05/24/2020 40 yo M with history of Lauren-en-Y and extensive past surgical history due to internal hernia small bowel obstruction due to adhesive disease and dilated limbs, presents with severe malnutrition and chronic abdominal pain. Discharge Recommendations: Patient would benefit from continued therapy after discharge Rolling walker for home Assessment Body structures, Functions, Activity limitations: Decreased functional mobility ;Decreased endurance;Decreased strength Assessment: The pt ambulated 75 ft with a RW x CGA. He reported significant fatigue following ambulation. He could benefit from a continuation of PTfor gait and strengthening following his DC Prognosis: Good Decision Making: Medium Complexity PT Education: Goals;PT Role;Plan of Care REQUIRES PT FOLLOW UP: Yes Activity Tolerance Activity Tolerance: Patient limited by fatigue Patient Diagnosis(es): There were no encounter diagnoses. has a past medical history of Chronic pain syndrome and Essential hypertension. has a past surgical history that includes Dilatation, esophagus; Cholecystectomy; Gastric bypass surgery; knee surgery (Right); Uvulopalatopharygoplasty; Tonsillectomy; laparotomy (01/29/2020); laparoscopy (N/A, 03/30/2020); Abdominal exploration surgery (04/03/2020); laparotomy (N/A, 04/03/2020); and picc powerpicc double (04/05/2020). Restrictions Position Activity Restriction Other position/activity restrictions: Up with assist Vision/Hearing Vision: Impaired(Pt suppose to wear glasses but states that he doesn't wear them) Hearing: Within functional limits Subjective General Patient assessed for rehabilitation services?: Yes Response To Previous Treatment: Not applicable Family / Caregiver Present: No Follows Commands: Within Functional Limits Subjective Subjective: RN and pt agreeable with PT eval Pain Screening Patient Currently in Pain: Yes Pain Assessment Pain Assessment: 0-10 Pain Level: 8 Pain Location: Abdomen Vital Signs Patient Currently in Pain: Yes Orientation Orientation Overall Orientation Status: Within Normal Limits Social/Functional History Social/Functional History Lives With: Family(Pt but . He lives with his parents) Type of Home: Mobile home Home Layout: One level Home Access: Ramped entrance Bathroom Shower/Tub: Tub/Shower unit Bathroom Toilet: Handicap height Bathroom Equipment: Shower chair ADL Assistance: Independent Homemaking Assistance: Independent Homemaking Responsibilities: Yes Ambulation Assistance: Independent Transfer Assistance: Independent Active Steam Powerplant Supervisor: No Patient's Steam Powerplant Supervisor Info: Parents drive Type of occupation: Applying for disability Cognition Objective AROM RLE (degrees) RLE AROM: WNL AROM LLE (degrees) LLE AROM : WNL AROM RUE (degrees) RUE AROM : WNL AROM LUE (degrees) LUE AROM : WNL Strength RLE Strength RLE: WFL Strength LLE Strength LLE: WFL Strength RUE Strength RUE: WFL Strength LUE Strength LUE: WFL Sensation Overall Sensation Status: Impaired(Reports numbness in B feet) Bed mobility Supine to Sit: Contact guard assistance Sit to Supine: Contact guard assistance Scooting: Contact guard assistance Transfers Sit to Stand: Contact guard assistance Stand to sit: Contact guard assistance Ambulation Ambulation?: Yes Ambulation 1 Surface: level tile Device: Rolling Walker Assistance: Contact guard assistance Distance: amb 75 ft with a RW x CGA Balance Posture: Good Sitting - Static: Good Sitting - Dynamic: Fair Standing - Static: Fair Standing - Dynamic: Fair Plan Plan Times per week: 5-6x wk Current Treatment Recommendations: Strengthening, Functional Mobility Training, Gait Training, Safety Education & Training, Endurance Training, Stair training Safety Devices Type of devices: Nurse notified, Left in bed, Call light within reach G-Code OutComes Score AM-PAC Score [facility] Inpatient Mobility Raw Score : 19 (05/24/201242) AM-PAC Inpatient T-Scale Score : 45.44 (05/24/201242) Mobility Inpatient CMS 0-100% Score: 41.77 (05/24/201242) Mobility Inpatient CMS G-Code Modifier : CK (05/24/201242) Goals Short term goals Time Frame for Short term goals: 10 visits Short term goal 1: transfers with SBA Short term goal 2: amb 250 ft with a RW x SBA Short term goal 3: ascend/descend 4 steps with SBA Short term goal 4: exercise program x SBA Patient Goals Patient goals : Return home Therapy Time Individual Concurrent Group Co-treatment Time In 0745 Time Out 0809 Minutes 24 Sugey Moreno, PT * Jose Bello DO - 05/24/2020 8:30 AM EST [facility] Office: [phone] Peña Billings DO, Ady Shine DO, Houston Cooper DO, Darell Krueger DO, Elena Allison MD, Hannah Rodrigues MD, Murphy Ball MD, Shraddha Hamm MD, Hipolito Rodriguez MD, Jannette Albert MD, MD Asher, Flor Donnelly MD, Elayne Cleaning MD, Nate Bone DO, Lopez Garcia MD, Gustavo Morillo MD, Fabricio Mo DO, Rosalio Green MD, Jose Bello DO, Gaurav Lopez MD, MD Sam, Latonia Chavez CNP, Eliz Esquivel CNP, Suzy Wu CNP, Blanche Desouza, HAYDEN,Edgar Staton CNP, Suyapa Almaguer CNP, Cathy Ling CNP, Loan Richardson, CORK INSULATOR, Hevre Tomlinson, CORK INSULATOR, Niki Badillo PA-C, Arlyn Villegas DNP, Yuki Orosco CNP, Deneen Stone CNP, Leandra Rich CNP, Lazara Ballesteros CNP, Sapphire Rivera, CORK INSULATOR [facility] IN-PATIENT SERVICE [facility] Progress Note 05/24/2020 8:52 AM Name: Sabina Espinoza Acct: [id number] Room: [id number]/0239-01 Day: 1 Admit Date: 05/23/2020 8:14 PM PCP: No primary care provider on file. Code Status: Full Code Subjective: C/C: SBO Interval History Status: not changed. Pt seen and examined at bedside. Pt has had significant weight loss over the last several month with associated nausea. He developed Brief History: This is a 40 year old male with a history of RNY presents with SBO and severe malnutrition currently being treated medically. Bariatrics consulted, no surgical intervention. Dietary consulted for nutrition recommendations. Review of Systems: Constitutional: negative for chills, fevers, sweats +weight loss. Respiratory: negative for cough, dyspnea on exertion, shortness of breath, wheezing Cardiovascular: negative for chest pain, chest pressure/discomfort, lower extremity edema, palpitations Gastrointestinal: admits to abdominal pain and abdominal distention with some nausea no vomiting. Neurological: negative for dizziness, headache Medications: Allergies: Allergies Allergen Reactions Prochlorperazine Valsartan Current Meds: Scheduled Meds: therapeutic multivitamin-minerals 1 tablet Oral Daily thiamine 200 mg Oral Daily gabapentin 300 mg Oral Q8H pantoprazole 40 mg Oral Daily enoxaparin 40 mg Subcutaneous Daily Continuous Infusions: lactated ringers 125 mL/hr at 05/24/20 0347 PRN Meds: potassium chloride OR potassium alternative oral replacement OR potassium chloride, magnesium sulfate, nicotine, acetaminophen OR acetaminophen, morphine OR [DISCONTINUED] morphine, diphenhydrAMINE Data: Past Medical History: has a past medical history of Chronic pain syndrome and Essential hypertension. Social History: reports that he has never smoked. He has never used smokeless tobacco. He reports that he does not drink alcohol or use drugs. Family History: Family History Problem Relation Age of Onset No Known Problems Mother Hypertension Father Heart Attack Father at the age of 58 from heart attack Coronary Art Dis Father Cancer Maternal Grandfather Unknown Vitals: BP (!) 141/99 Pulse 97 Temp 97.4 F (36.3 C) (Oral) Resp 17 Wt 129 lb (58.5 kg) SpO2 100% BMI 18.51 kg/m Temp (24hrs), Av.6 F (36.4 C), Min:97.4 F (36.3 C), Max:97.8 F (36.6 C) No results for input(s): POCGLU in the last 72 hours. I/O (24Hr): No intake or output data in the 24 hours ending 05/24/20 0852 Labs: Hematology: Recent Labs 05/23/20205005/24/20 0438 WBC 5.7 4.9 RBC 3.93* 4.05* HGB 11.1* 11.7* HCT 36.3* 36.0* MCV 92.4 88.9 MCH 28.2 28.9 MCHC 30.6 32.5 RDW 22.8* 22.3* PLT 416 368 MPV 9.9 10.8 INR -- 1.2 Chemistry: Recent Labs 05/23/20205005/24/20 0438 NA 136 136 K 3.5* 3.5* CL 107 106 CO2 20 23 GLUCOSE 77 62* BUN 17 17 CREATININE 0.45* 0.50* MG 1.7 1.7 ANIONGAP 9 7* LABGLOM >60 >60 GFRAA >60 >60 CALCIUM 7.4* 8.1* Recent Labs 05/23/20205005/24/20437 PROT 4.8* 5.0* LABALBU 2.0* 2.1* AST 47* 66* ALT 51* 55* ALKPHOS 171* 171* BILITOT 0.54 0.61 ABG:No results found for: POCPH, PHART, PH, POCPCO2, MBB6EIH, PCO2, POCPO2, PO2ART, PO2, POCHCO3, ENW0ADQ, HCO3, NBEA, PBEA, BEART, BE, THGBART, THB, YHD0KIW, KKET7CFX, B0PHDMAL, O2SAT, FIO2 Lab Results Component Value Date/Time SPECIAL NOT REPORTED 04/03/2020 11:44 AM Lab Results Component Value Date/Time CULTURE NO GROWTH 04/03/2020 11:44 AM Radiology: Xr Abdomen (kub) (single Ap View) Result Date: 05/23/2020 1. Mildly distended loops of small bowel, which could be seen with obstruction or ileus. 2. Oral contrast within the colon. Physical Examination: General appearance: Frail, chronically ill appearing male in bed appears non toxic Mental Status: oriented to person, place and time and normal affect Lungs: clear to auscultation bilaterally, normal effort Heart: regular rate and rhythm, no murmur Abdomen: tender to palpation, non distended. No nausea, incision noted. Extremities: no edema, redness, tenderness in the calves Skin: no gross lesions, rashes, induration Assessment: Hospital Problems Last Modified POA * (Principal) SBO (small bowel obstruction) ([facility]) 05/24/2020 Yes Severe protein-calorie malnutrition ([place]: less than 60% of standard weight) ([facility]) 05/24/2020 Yes Essential hypertension 05/23/2020 Yes Intra-abdominal adhesions s/p lysis 05/24/2020 Yes Bowel obstruction (HCC) 05/24/2020 Yes History of Lauren-en-Y gastric bypass 05/24/2020 Yes Acute hypokalemia 05/24/2020 Yes Plan: 1. Small Bowel obstruction: 2/ adhesions, pt with a hx of RNY. Continue IVF. Due to weight loss and inability to tolerate PO intake, dietary consulted, pt will likely need TPN. Replace electrolytes,continue supportive care. Bariatrics consulted, no surgical intervention. Serial abdominal exams. Pain control, limit narcotic use. NPO, No NG due to stump. 2. Severe Protein calorie malnutrition: Thiamine, daily multivitamin, dietary consulted, may need TPN. 3. Acute Hypokalemia: replace electrolytes PRN 4. NCNC anemia: Check iron studies, may benefit from IV iron pending results. 5. Essential Hypertension: Currently well controlled. Resume home medications 6. GERD: continue PPI 7. DVT ppx 8. PT/OT Jose Bello DO 05/24/2020 8:52 AM * Saige Hernandez MD - 05/24/2020 7:47 AM EST Bariatric Surgery: Daily Progress Note PATIENT NAME: Sabina Espinoza TODAY'S DATE: 05/24/2020, 7:47 AM CC: Abdominal pain SUBJECTIVE: Pt seen and examined at bedside. Patient still having abdominal pain. Complains of feeling weak forseveral weeks. No nausea. Last BM 2 days ago. Not passing flatus. Afebrile, hemodynamically wnl. OBJECTIVE: VITALS: BP (!) 137/110 Pulse 108 Temp 97.8 F (36.6 C) (Oral) Resp 17 Wt 129 lb (58.5 kg) SpO2 100% BMI 18.51 kg/m INTAKE/OUTPUT: No intake or output data in the 24 hours ending 05/24/20 0747 PHYSICAL EXAM: General Appearance: Appears malnourished, alert. HEENT: Normocephalic, atraumatic, mucus membranes moist Heart: Heart regular rate and rhythm Lungs: symmetrical rise and fall of chest. Abdomen: Scaphoid abdomen Incision: well healed surgical scars Extremities: No cyanosis, pitting edema, rashes noted. Skin: Skin color, texture, turgor normal. No rashes or lesions. Data: CBC with Differential: Lab Results Component Value Date WBC 4.9 05/24/2020 RBC 4.05 05/24/2020 HGB 11.7 05/24/2020 HCT 36.0 05/24/2020 PLT 368 05/24/2020 MCV 88.9 05/24/2020 MCH 28.9 05/24/2020 MCHC 32.5 05/24/2020 RDW 22.3 05/24/2020 LYMPHOPCT 32 05/24/2020 MONOPCT 8 05/24/2020 BASOPCT 2 05/24/2020 MONOSABS 0.39 05/24/2020 LYMPHSABS 1.57 05/24/2020 EOSABS 0.29 05/24/2020 BASOSABS 0.10 05/24/2020 DIFFTYPE NOT REPORTED 05/24/2020 CMP: Lab Results Component Value Date NA 136 05/24/2020 K 3.5 05/24/2020 CL 106 05/24/2020 CO2 23 05/24/2020 BUN 17 05/24/2020 CREATININE 0.50 05/24/2020 GFRAA >60 05/24/2020 LABGLOM >60 05/24/2020 GLUCOSE 62 05/24/2020 PROT 5.0 05/24/2020 LABALBU 2.1 05/24/2020 CALCIUM 8.1 05/24/2020 BILITOT 0.61 05/24/2020 ALKPHOS 171 05/24/2020 AST 66 05/24/2020 ALT 55 05/24/2020 Radiology Review: KUB 05/24/20 Impression 1. Mildly distended loops of small bowel, which could be seen with obstruction or ileus. 2. Oral contrast within the colon. ASSESSMENT: Active Hospital Problems Diagnosis Date Noted Bowel obstruction (HCC) [K56.609] 05/23/2020 Essential hypertension [I10] 04/02/2020 Severe protein-calorie malnutrition (HCC) [E43] 03/30/2020 40 yo M with history of Lauren-en-Y and extensive past surgical history due to internal hernia small bowel obstruction due to adhesive disease and dilated limbs, presents with severe malnutrition and chronic abdominal pain. Plan: 1. Continue medical management and supportive care per primary 2. NPO, no NGT at this time given surgical history, okay for po meds 3. No acute surgical intervention at this time. Patient is severely malnourished and will likely need and benefit from TPN nutrition. Associated attestation - Daniel Moyer DO - 05/25/2020 8:57 PM EST I have discussed the care of the patient, including pertinent history and exam findings, with the resident. I have seen and examined the patient and the chapin elements of all parts of the encounter have been performed by me. I agree with the assessment, plan and orders as documented by the resident. Contrast in colon on KUB. Pain improved Trial clears Would recommend TPN given nutritional status PPI/Carafate documented in this encounter* Emma Aviles RN - 06/24/2020 9:[address] lambert in and spoke with pt. Meets D/C criteria. Book a ride called for transportation home. * Arlyn Walters RN - 06/24/2020 7:32 AM EST Procedure explained and questions answered, Dr Flynn at bedside notified of pts pulse at 100-195 pt states this is normal for me to be tachycardic documented in this encounter* Houston Cooper DO - 04/12/2020 7:49 AM EST [facility] Office: [phone] Peña Billings DO, Ady Shine DO, Houston Cooper DO, Darell Krueger DO, Elena Allison MD, Hannah Rodrigues MD, Murphy Ball MD, Shraddha Hamm MD, Hipolito Rodriguez MD, Jannette Albert MD, MD Asher, Flor Donnelly MD, Elayne Cleaning MD, Nate Bone DO, Lopez Garcia MD, Gustavo Morillo MD, Fabricio Mo DO, Rosalio Green MD, Jose Bello DO, Gaurav Lopez MD, MD Sam, Latonia Chavez, CORK INSULATOR, Eliz Esquivel, CORK INSULATOR, Suzy Wu, CORK INSULATOR, Blanche Desouza, LOFTER,Edgar Staton, CORK INSULATOR, Suyapa Almaguer, CORK INSULATOR, Cathy Ling, CORK INSULATOR, Loan Richardson, CORK INSULATOR, Hever Tomlinson, CORK INSULATOR, SOURAV Hartley-C, Arlyn Villegas, DOMINIQUE, Yuki Orosco, CORK INSULATOR, Deneen Stone, CORK INSULATOR, Leandra Rich, CORK INSULATOR, Lazara Ballesteros, CORK INSULATOR, Sapphire Rivera, CORK INSULATOR [facility] IN-PATIENT SERVICE [facility] Progress Note 04/12/2020 7:49 AM Name: Sabina Espinoza Acct: [id number] Room: 0239/0239-01 Day: 3 Admit Date: 04/09/2020 11:02 PM PCP: No primary care provider on file. Code Status: Prior Subjective: C/C: Abdominal pain Interval History Status: improved. Diet has been advanced and tolerated by general surgery. Denies any chest pain, shortness of breath, nausea or vomiting. Was ambulating with staff yesterday, will likely not require rehab. Brief History: This is a 39-year-old white male with a history of Lauren-en-Y gastric bypass that was previously evaluated at [facility] for small bowel obstruction. On 30 March he underwent diagnostic laparoscopy/laparotomy with lysis of adhesions with subsequent follow-up surgery on the where he underwent laparotomy, EGD and further lysis of adhesions with Prevena wound VAC placement. He had slow return of bowel function postoperatively and was initially treated with TPN for nutritional support. Arranged will be made for LTAC transfer continue TPN and wound care. At that point he started having return of bowel function and had flatus and return of bowel movements and diet was initiated in advance. Ultimately he was able to be discharged on the in stable condition as he was tolerating diet. He refused penitentiary placement for rehab. On the way home from the hospital he had onset ofreflux symptoms and over the next 24 hours had worsening abdominal pain and presented to the emergency room in [place]. Ultimately was transferred here for further evaluation. Is been reevaluated by bairon damon and undergoing small bowel follow-through today Review of Systems: Constitutional: negative for chills, fevers, sweats Respiratory: negative for cough, dyspnea on exertion, shortness of breath, wheezing Cardiovascular: negative for chest pain, chest pressure/discomfort, lower extremity edema, palpitations Gastrointestinal: negative for abdominal pain, constipation, diarrhea, nausea, vomiting Neurological: negative for dizziness, headache Medications: Allergies: Allergies Allergen Reactions Prochlorperazine Valsartan Current Meds: Scheduled Meds: famotidine 20 mg Oral BID gabapentin 300 mg Oral Q8H ibuprofen 400 mg Oral Q6H cyclobenzaprine 5 mg Oral Q8H simethicone 40 mg Oral 4x Daily docusate sodium 100 mg Oral BID furosemide 20 mg Oral Daily acetaminophen 1,000 mg Oral 3 times per day enoxaparin 40 mg Subcutaneous Daily metoclopramide 5 mg Intravenous Q6H metoprolol 5 mg Intravenous Q8H sodium chloride flush 10 mL Intravenous 2 times per day sodium chloride flush 10 mL Intravenous 2 times per day therapeutic multivitamin-minerals 1 tablet Oral Daily Continuous Infusions: dextrose 100 mL/hr (04/10/202106) PRN Meds: oxyCODONE-acetaminophen, dextrose, glucose, dextrose, glucagon (rDNA), dextrose, calcium carbonate, labetalol, magnesium sulfate, nicotine, potassium alternative oral replacement OR potassium chloride, [DISCONTINUED] promethazine OR ondansetron, sodium chloride flush, sodium chloride flush Data: Past Medical History: has a past medical history of Chronic pain syndrome and Essential hypertension. Social History: reports that he has never smoked. He has never used smokeless tobacco. He reports that he does not drink alcohol or use drugs. Family History: Family History Problem Relation Age of Onset No Known Problems Mother Hypertension Father Heart Attack Father at the age of 58 from heart attack Coronary Art Dis Father Cancer Maternal Grandfather Unknown Vitals: BP (!) 142/94 Pulse 89 Temp 97.6 F (36.4 C) (Oral) Resp 16 Ht 5' 10 (1.778 m) Wt 201 lb 4.5 oz (91.3 kg) SpO2 94% BMI 28.88 kg/m Temp (24hrs), Av.2 F (36.8 C), Min:97.5 F (36.4 C), Max:98.9 F (37.2 C) Recent Labs 04/10/20 1631 04/10/20 1935 04/11/20 0654 04/11/20 1104 POCGLU 90 81 82 77 I/O (24Hr): Intake/Output Summary (Last 24 hours) at 04/12/2020 0749 Last data filed at 04/12/2020 0535 Gross per 24 hour Intake Output 300 ml Net -300 ml Labs: Hematology: Recent Labs 04/10/2044004/11/20 1123 04/12/20 0544 WBC 7.4 8.8 8.0 RBC 4.24 4.51 4.36 HGB 9.9* 10.5* 10.4* HCT 33.4* 36.0* 35.6* MCV 78.8* 79.8* 81.7* MCH 23.3* 23.3* 23.9* MCHC 29.6 29.2 29.2 RDW 25.2* 25.4* 25.5* PLT 637* 779* 770* MPV 9.8 9.5 9.2 Chemistry: Recent Labs 04/10/20 04404/11/20 1123 04/12/20 0544 NA 136 133* 135 K 4.0 3.9 4.2 CL 106 103 105 CO2 22 22 22 GLUCOSE 57* 69* 72 BUN 12 12 14 CREATININE 0.33* 0.43* 0.49* ANIONGAP 8* 8* 8* LABGLOM >60 >60 >60 GFRAA >60 >60 >60 CALCIUM 7.5* 7.5* 7.6* Recent Labs 04/10/20 1045 04/10/20 1134 04/10/20 1631 04/10/20 1935 04/11/20 0654 04/11/20 1104 POCGLU 44* 108 90 81 82 77 ABG:No results found for: POCPH, PHART, PH, POCPCO2, DQM3QNL, PCO2, POCPO2, PO2ART, PO2, POCHCO3, PIK4BUU, HCO3, NBEA, PBEA, BEART, BE, THGBART, THB, SWN0ERX, AFLC6TJL, L5MMLXBE, O2SAT, FIO2 Lab Results Component Value Date/Time SPECIAL NOT REPORTED 04/03/2020 11:44 AM Lab Results Component Value Date/Time CULTURE NO GROWTH 04/03/2020 11:44 AM Radiology: Fl Small Bowel Follow Through Only Result Date: 04/11/2020 Redemonstration of markedly dilated proximal small bowel loops but without evidence of obstruction as contrast reaches the colon within 1 hour. Consider follow-up abdominal radiographs to assess progression of contrast as clinically warranted. Physical Examination: General appearance: alert, cooperative and no distress Mental Status: oriented to person, place and time and normal affect Lungs: clear to auscultation bilaterally, normal effort Heart: regular rate and rhythm, no murmur Abdomen: soft, nontender, nondistended, normal bowel sounds, no masses, hepatomegaly, splenomegaly Extremities: no edema, redness, tenderness in the calves Skin: no gross lesions, rashes, induration Assessment: Hospital Problems Last Modified POA * (Principal) Small bowel obstruction (HCC) 04/10/2020 Yes Severe protein-calorie malnutrition (HCC) 04/10/2020 Yes Essential hypertension 04/10/2020 Yes Plan: 1. Continue Reglan, transition to oral due to her ongoing reflux symptoms. 2. Monitor and control blood pressure 3. Diet as tolerated 4. Continue home dose of Lasix for a few days due to third spacing fluid 5. Activity as tolerated 6. GI and DVT prophylaxis 7. Discharge home today Houston Cooper DO 04/12/2020 7:49 AM * Juanjose Santos, DO - 04/12/2020 7:32 AM EST General Surgery: Daily Progress Note PATIENT NAME: Sabina Espinoza TODAY'S DATE: 04/12/2020, 7:32 AM SUBJECTIVE: Pt seen and examined at bedside. No acute events overnight, vital signs stable, afebrile. Patient denies chest pain or shortness of breath. Tolerating diet, urinating spontaneously. Ambulating with and without assistance. Still complains of bilateral lower extremity edema. Passing flatus, having bowel movements regularly. OBJECTIVE: VITALS: BP (!) 142/94 Pulse 89 Temp 97.6 F (36.4 C) (Oral) Resp 20 Ht 5' 10 (1.778 m) Wt201 lb 4.5 oz (91.3 kg) SpO2 94% BMI 28.88 kg/m INTAKE/OUTPUT: Intake/Output Summary (Last 24 hours) at 04/12/2020 0732 Last data filed at 04/12/2020 0535 Gross per 24 hour Intake Output 300 ml Net -300 ml PHYSICAL EXAM: General Appearance: awake, alert, oriented, in no acute distress HEENT: Normocephalic, atraumatic, mucus membranes moist Heart: Regular rate and rhythm Lungs: normal effort with symmetric rise and fall of chest wall Abdomen: soft, nondistended, nontender, without guarding, rebound, or peritoneal signs Incision: clean, dry and intact Extremities: No cyanosis, pitting edema, rashes noted. Skin: Skin color, texture, turgor normal. No rashes or lesions. Data: CBC: Recent Labs 04/10/20 0441 04/11/20 1123 04/12/20 0544 WBC 7.4 8.8 8.0 HGB 9.9* 10.5* 10.4* PLT 637* 779* 770* Chemistry: Recent Labs 04/10/20 0441 04/11/20 1123 04/12/20 0544 NA 136 133* 135 K 4.0 3.9 4.2 CL 106 103 105 CO2 22 22 22 GLUCOSE 57* 69* 72 BUN 12 12 14 CREATININE 0.33* 0.43* 0.49* ANIONGAP 8* 8* 8* LABGLOM >60 >60 >60 GFRAA >60 >60 >60 CALCIUM 7.5* 7.5* 7.6* Hepatic: No results for input(s): AST, ALT, ALB, ALKPHOS, BILITOT, BILIDIR in the last 72 hours. Coagulation: No results for input(s): APTT, PROT, INR in the last 72 hours. Radiology Review: SBFT pending ASSESSMENT: Active Hospital Problems Diagnosis Date Noted Small bowel obstruction (HCC) [K56.609] 04/09/2020 Essential hypertension [I10] 04/02/2020 Severe protein-calorie malnutrition (HCC) [E43] 03/30/2020 1. 39 y.o. male with abdominal pain. 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 Continue medical management and supportive care per primary team 2. Continue dental soft diet 3. Continue colace bid 4. Continue pain control - tylenol, added motrin, flexeril and neurontin to help with pain 5. Incisions well healing, will need staple removal today versus tomorrow depending on date of discharge 6. Medically stable for discharge from surgery standpoint, will defer to primary team on placement versus home * Houston Cooper DO - 04/11/2020 6:30 AM EST [facility] Office: [phone] Peña Billings DO, Ady Shine DO, Houston Cooper DO, Darell Krueger DO, Elena Allison MD, Hannah Rodrigues MD, Murphy Ball MD, Shraddha Hamm MD, Hipolito Rodriguez MD, Jannette Albert MD, MD Asher, Flor Donnelly MD, Elayne Cleaning MD, Nate Bone DO, Lopez Garcia MD, Gustavo Morillo MD, Fabircio Mo DO, Rosalio Green MD, Jose Bello DO, Gaurav Lopez MD, MD Sam, Latonia Chavez, CORK INSULATOR, Eliz Esquivel, DOROTA, Suzy Wu, CORK INSULATOR, Blanche Desouza, LOFTER,Edgar Staton, CORK INSULATOR, Suyapa Almaguer, CORK INSULATOR, Cathy Ling, CORK INSULATOR, Loan Richardson, CORK INSULATOR, Hever Tomlinson, CORK INSULATOR, Niki Badillo PA-C, Arlyn Villegas DNP, Yuki Orosco, CORK INSULATOR, Deneen Stone, CORK INSULATOR, Leandra Rich, CORK INSULATOR, Lazara Ballesteros, CORK INSULATOR, Sapphire Rivera, CORK INSULATOR [facility] IN-PATIENT SERVICE [facility] Progress Note 04/11/2020 6:30 AM Name: Sabina Espinoza Acct: [id number] Room: 0239/0239-01 Day: 2 Admit Date: 04/09/2020 11:02 PM PCP: No primary care provider on file. Code Status: Prior Subjective: C/C: abd pain Interval History Status: not changed. Patient continues to have abdominal pain. Passing flatus and denies any BM. Underwent a small bowelfollow-through yesterday, results pending. Denies any chest pain, shortness of breath, nausea or vomiting or other complaints. Brief History: This is a 39-year-old white male with a history of Lauren-en-Y gastric bypass that was previously evaluated at [facility] for small bowel obstruction. On 30 March he underwent diagnostic laparoscopy/laparotomy with lysis of adhesions with subsequent follow-up surgery on the where he underwent laparotomy, EGD and further lysis of adhesions with Prevena wound VAC placement. He had slow return of bowel function postoperatively and was initially treated with TPN for nutritional support. Arranged will be made for LTAC transfer continue TPN and wound care. At that point he started having return of bowel function and had flatus and return of bowel movements and diet was initiated in advance. Ultimately he was able to be discharged on the in stable condition as he was tolerating diet. He refused penitentiary placement for rehab. On the way home from the hospital he had onset ofreflux symptoms and over the next 24 hours had worsening abdominal pain and presented to the emergency room in [place]. Ultimately was transferred here for further evaluation. Is been reevaluated by bairon damon and undergoing small bowel follow-through today. Review of Systems: Constitutional: negative for chills, fevers, sweats Respiratory: negative for cough, dyspnea on exertion, shortness of breath, wheezing Cardiovascular: negative for chest pain, chest pressure/discomfort, lower extremity edema, palpitations Gastrointestinal: negative for abdominal pain, constipation, diarrhea, nausea, vomiting Neurological: negative for dizziness, headache Medications: Allergies: Allergies Allergen Reactions Prochlorperazine Valsartan Current Meds: Scheduled Meds: gabapentin 300 mg Oral Q8H ibuprofen 400 mg Oral Q6H cyclobenzaprine 5 mg Oral Q8H docusate sodium 100 mg Oral BID furosemide 20 mg Oral Daily acetaminophen 1,000 mg Oral 3 times per day enoxaparin 40 mg Subcutaneous Daily famotidine (PEPCID) injection 20 mg Intravenous BID metoclopramide 5 mg Intravenous Q6H metoprolol 5 mg Intravenous Q8H sodium chloride flush 10 mL Intravenous 2 times per day sodium chloride flush 10 mL Intravenous 2 times per day therapeutic multivitamin-minerals 1 tablet Oral Daily Continuous Infusions: dextrose 100 mL/hr (04/10/202106) PRN Meds: dextrose, glucose, dextrose, glucagon (rDNA), dextrose, calcium carbonate, labetalol, magnesium sulfate, nicotine, potassium alternative oral replacement OR potassium chloride, [DISCONTINUED] promethazine OR ondansetron, sodium chloride flush, sodium chloride flush Data: Past Medical History: has a past medical history of Chronic pain syndrome and Essential hypertension. Social History: reports that he has never smoked. He has never used smokeless tobacco. He reports that he does not drink alcohol or use drugs. Family History: Family History Problem Relation Age of Onset No Known Problems Mother Hypertension Father Heart Attack Father at the age of 58 from heart attack Coronary Art Dis Father Cancer Maternal Grandfather Unknown Vitals: BP (!) 150/108 Pulse 91 Temp 98.7 F (37.1 C) (Oral) Resp 18 Ht 5' 10 (1.778 m) Wt 201 lb4.5 oz (91.3 kg) SpO2 95% BMI 28.88 kg/m Temp (24hrs), Av F (36.7 C), Min:97.6 F (36.4 C), Max:98.7 F (37.1 C) Recent Labs 04/10/20 1045 04/10/20 1134 04/10/20 1631 04/10/20 1935 POCGLU 44* 108 90 81 I/O (24Hr): Intake/Output Summary (Last 24 hours) at 04/11/2020 0630 Last data filed at 04/10/2020 1321 Gross per 24 hour Intake Output 300 ml Net -300 ml Labs: Hematology: Recent Labs 04/10/20 0441 WBC 7.4 RBC 4.24 HGB 9.9* HCT 33.4* MCV 78.8* MCH 23.3* MCHC 29.6 RDW 25.2* PLT 637* MPV 9.8 Chemistry: Recent Labs 04/10/20 0441 NA 136 K 4.0 CL 106 CO2 22 GLUCOSE 57* BUN 12 CREATININE 0.33* ANIONGAP 8* LABGLOM >60 GFRAA >60 CALCIUM 7.5* Recent Labs 04/10/20 0959 04/10/20 1045 04/10/20 1134 04/10/20 1631 04/10/201934 POCGLU 54* 44* 108 90 81 ABG:No results found for: POCPH, PHART, PH, POCPCO2, QVU3EME, PCO2, POCPO2, PO2ART, PO2, POCHCO3, XXZ9DTW, HCO3, NBEA, PBEA, BEART, BE, THGBART, THB, BFC6DSS, OSPG2TMV, K1TXHKDW, O2SAT, FIO2 Lab Results Component Value Date/Time SPECIAL NOT REPORTED 04/03/2020 11:44 AM Lab Results Component Value Date/Time CULTURE NO GROWTH 04/03/2020 11:44 AM Radiology: No results found. Physical Examination: General appearance: alert, cooperative and no distress Mental Status: oriented to person, place and time and normal affect Lungs: clear to auscultation bilaterally, normal effort Heart: regular rate and rhythm, no murmur Abdomen: soft, nontender, nondistended, normal bowel sounds, no masses, hepatomegaly, splenomegaly Extremities: no edema, redness, tenderness in the calves Skin: no gross lesions, rashes, induration Assessment: Hospital Problems Last Modified POA * (Principal) Small bowel obstruction (HCC) 04/10/2020 Yes Severe protein-calorie malnutrition (HCC) 04/10/2020 Yes Essential hypertension 04/10/2020 Yes Plan: 1. Continue efforts for pain control 2. Small bowel follow-through with dilated proximal loops of bowel, no obstruction, surgery following 3. Diet as tolerated 4. Monitor and control blood pressure 5. GI and DVT prophylaxis 6. As scheduled dose of simethicone for gaseous distention 7. Increase activity 8. Discharge planning Home with home care versus skilled facility pending progress Houston Cooper DO 04/11/2020 6:30 AM * Isabela Ortiz DO - 04/11/2020 6:19 AM EST General Surgery: Daily Progress Note PATIENT NAME: Sabina Espinoza TODAY'S DATE: 04/11/2020, 6:19 AM SUBJECTIVE: Pt seen and examined at bedside. No acute overnight events. Continues to have abdominal pain that is not any worse or better. Doesn't feel like its his muscles but inside his abdomen. Passed a BM last night - continues to pass gas. Denies any nausea/vomiting, f/c, sob/cp. OBJECTIVE: VITALS: BP (!) 150/108 Pulse 91 Temp 98.7 F (37.1 C) (Oral) Resp 18 Ht 5' 10 (1.778 m) Wt 201 lb 4.5 oz (91.3 kg) SpO2 95% BMI 28.88 kg/m INTAKE/OUTPUT: Intake/Output Summary (Last 24 hours) at 04/11/2020 0619 Last data filed at 04/10/2020 1321 Gross per 24 hour Intake Output 300 ml Net -300 ml PHYSICAL EXAM: General Appearance: awake, alert, oriented, in no acute distress HEENT: Normocephalic, atraumatic, mucus membranes moist Heart: Regular rate and rhythm Lungs: normal effort with symmetric rise and fall of chest wall Abdomen: soft, nondistended, TTP in lower abdomen without guarding or rebound tenderness Incision: clean, dry and intact Extremities: No cyanosis, pitting edema, rashes noted. Skin: Skin color, texture, turgor normal. No rashes or lesions. Data: CBC: Recent Labs 04/08/2062604/10/20 0441 WBC 6.5 7.4 HGB 9.5* 9.9* PLT 430 637* Chemistry: Recent Labs 04/08/2062604/10/20 0441 NA 135 136 K 3.6* 4.0 CL 106 106 CO2 20 22 GLUCOSE 86 57* BUN 10 12 CREATININE 0.31* 0.33* MG 2.4 -- ANIONGAP 9 8* LABGLOM >60 >60 GFRAA >60 >60 CALCIUM 7.3* 7.5* PHOS 1.8* -- Hepatic: No results for input(s): AST, ALT, ALB, ALKPHOS, BILITOT, BILIDIR in the last 72 hours. Coagulation: No results for input(s): APTT, PROT, INR in the last 72 hours. Radiology Review: SBFT pending ASSESSMENT: Active Hospital Problems Diagnosis Date Noted Small bowel obstruction (HCC) [K56.609] 04/09/2020 Essential hypertension [I10] 04/02/2020 Severe protein-calorie malnutrition (HCC) [E43] 03/30/2020 1. 39 y.o. male with abdominal pain. 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 Continue medical management and supportive care per primary team 2. Continue conservative management at this time. Had BM last night. 3. Continue dental soft diet 4. Continue colace bid 5. Continue pain control - tylenol, added motrin, flexeril and neurontin to help with pain 6. Once pain is controlled, OK for d/c home. Follow up with Dr. Moyer in 1 week for postop. General Surgery Attending I have seen and examined this patient with Dr. Camarillo, including review of pertinent history and exam findings, labs, imaging, vitals. I have performed the chapin elements of the encounter. I agree with the assessment, plan, and orders as documented by the surgical rn and any pertinent changes or updates have been made. Incision looks very good, parris intact, no peritonitis or concerning findings on exam. Studies/labs, updates discussed with patient. All questions answered. Dr. Ortiz * Amaris Bella RN - 04/10/2020 2:15 PM EST Back from X-ray * Amaris Bella RN - 04/10/2020 11:00 AM EST Blood glucose was 54, 44 patient symptomatic with slurred speech, PIV infiltrated, New PIV place and 1 amp d50 given per hypoglycemic protocol long, blood glucose recheck 108, continue to monitor * Houston Cooper DO - 04/10/2020 7:15 AM EST [facility] Office: [phone] Peña Billings DO, Ady Shine DO, Houston Cooper DO, Darell Krueger DO, Elena Allison MD, Hannah Rodrigues MD, Murphy Ball MD, Shraddha Hamm MD, Hipolito Rodriguez MD, Jannette Albert MD, MD Asher, Flor Donnelly MD, Elayne Cleaning MD, Nate Bone DO, Lopez Garcia MD, Gustavo Morillo MD, Fabricio Mo DO, Rosalio Green MD, Jose Bello DO, Gaurav Lopez MD, MD Sam, Latonia Chavez, CORK INSULATOR, Eliz Esquivel, CORK INSULATOR, Suzy Wu, CORK INSULATOR, Blanche Desouza, LOFTER,Edgar Staton, CORK INSULATOR, Suyapa Almaguer, CORK INSULATOR, Cathy Ling, CORK INSULATOR, Loan Richardson, CORK INSULATOR, Hever Tomlinson, CORK INSULATOR, Niki Badillo PA-C, Arlyn Villegas, DOMINIQUE, Yuki Orosco, CORK INSULATOR, Deneen Stone, CORK INSULATOR, Leandra Rich, CORK INSULATOR, Lazara Ballesteros, CORK INSULATOR, Sapphire Rivera, CORK INSULATOR [facility] IN-PATIENT SERVICE [facility] Progress Note 04/10/2020 7:15 AM Name: Sabina Espinoza Acct: [id number] Room: 0239/0239-01 Day: 1 Admit Date: 04/09/2020 11:02 PM PCP: No primary care provider on file. Code Status: Prior Subjective: C/C: Abdominal pain Interval History Status: improved. Patient reports decreasing abdominal pain. Denies any nausea, vomiting, diarrhea or other complaints. Denies any chest pain, shortness of breath, fevers or chills. Brief History: This is a 39-year-old white male with a history of Lauren-en-Y gastric bypass that was previously evaluated at [facility] for small bowel obstruction. On 30 March he underwent diagnostic laparoscopy/laparotomy with lysis of adhesions with subsequent follow-up surgery on the where he underwent laparotomy, EGD and further lysis of adhesions with Prevena wound VAC placement. He had slow return of bowel function postoperatively and was initially treated with TPN for nutritional support. Arranged will be made for LTAC transfer continue TPN and wound care. At that point he started having return of bowel function and had flatus and return of bowel movements and diet was initiated in advance. Ultimately he was able to be discharged on the in stable condition as he was tolerating diet. He refused penitentiary placement for rehab. On the way home from the hospital he had onset ofreflux symptoms and over the next 24 hours had worsening abdominal pain and presented to the emergency room in [place]. Ultimately was transferred here for further evaluation. Is been reevaluated by bairon damon and undergoing small bowel follow-through today. Review of Systems: Constitutional: negative for chills, fevers, sweats Respiratory: negative for cough, dyspnea on exertion, shortness of breath, wheezing Cardiovascular: negative for chest pain, chest pressure/discomfort, lower extremity edema, palpitations Gastrointestinal: Positive for abdominal pain, negative for constipation, diarrhea, nausea, vomiting Neurological: negative for dizziness, headache Medications: Allergies: Allergies Allergen Reactions Prochlorperazine Valsartan Current Meds: Scheduled Meds: docusate sodium 100 mg Oral BID furosemide 20 mg Oral Daily acetaminophen 1,000 mg Oral 3 times per day enoxaparin 40 mg Subcutaneous Daily famotidine (PEPCID) injection 20 mg Intravenous BID metoclopramide 5 mg Intravenous Q6H metoprolol 5 mg Intravenous Q8H sodium chloride flush 10 mL Intravenous 2 times per day sodium chloride flush 10 mL Intravenous 2 times per day therapeutic multivitamin-minerals 1 tablet Oral Daily Continuous Infusions: PRN Meds: ketorolac, labetalol, magnesium sulfate, nicotine, potassium alternative oral replacementOR potassium chloride, [DISCONTINUED] promethazine OR ondansetron, sodium chloride flush, sodium chloride flush Data: Past Medical History: has a past medical history of Chronic pain syndrome and Essential hypertension. Social History: reports that he has never smoked. He has never used smokeless tobacco. He reports that he does not drink alcohol or use drugs. Family History: Family History Problem Relation Age of Onset No Known Problems Mother Hypertension Father Heart Attack Father at the age of 58 from heart attack Coronary Art Dis Father Cancer Maternal Grandfather Unknown Vitals: Pulse 100 Ht 5' 10 (1.778 m) Wt 201 lb 4.5 oz (91.3 kg) BMI 28.88 kg/m No data recorded. Recent Labs 04/08/20226 POCGLU 88 I/O (24Hr): No intake or output data in the 24 hours ending 04/10/2015 Labs: Hematology: Recent Labs 04/08/2062604/10/20440 WBC 6.5 7.4 RBC 4.09* 4.24 HGB 9.5* 9.9* HCT 35.4* 33.4* MCV 86.6 78.8* MCH 23.2* 23.3* MCHC 26.8* 29.6 RDW 25.0* 25.2* PLT 430 637* MPV 10.1 9.8 Chemistry: Recent Labs 04/08/2062604/10/20440 NA 135 136 K 3.6* 4.0 CL 106 106 CO2 20 22 GLUCOSE 86 57* BUN 10 12 CREATININE 0.31* 0.33* MG 2.4 -- ANIONGAP 9 8* LABGLOM >60 >60 GFRAA >60 >60 CALCIUM 7.3* 7.5* PHOS 1.8* -- Recent Labs 04/08/20226 POCGLU 88 ABG:No results found for: POCPH, PHART, PH, POCPCO2, BAJ3QHU, PCO2, POCPO2, PO2ART, PO2, POCHCO3, KCR7EDP, HCO3, NBEA, PBEA, BEART, BE, THGBART, THB, RVE3MVO, EORJ6IYX, X8FSNNXF, O2SAT, FIO2 Lab Results Component Value Date/Time SPECIAL NOT REPORTED 04/03/2020 11:44 AM Lab Results Component Value Date/Time CULTURE NO GROWTH 04/03/2020 11:44 AM Radiology: Fl Ugi W Small Bowel Result Date: 04/03/2020 Markedly dilated proximal small bowel corresponding to findings on recent CT. Physical Examination: General appearance: alert, cooperative and no distress Mental Status: oriented to person, place and time and normal affect Lungs: clear to auscultation bilaterally, normal effort Heart: regular rate and rhythm, no murmur Abdomen: soft, mild generalized abdominal tenderness, nondistended, normal bowel sounds, no masses,hepatomegaly, splenomegaly Extremities: no edema, redness, tenderness in the calves Skin: no gross lesions, rashes, induration Assessment: Hospital Problems Last Modified POA * (Principal) Small bowel obstruction (HCC) 04/10/2020 Yes Severe protein-calorie malnutrition (HCC) 04/10/2020 Yes Essential hypertension 04/10/2020 Yes Plan: 1. Surgery evaluation 2. Small bowel follow-through today 3. Monitor and control blood pressure 4. GI and DVT prophylaxis 5. PT and OT, reevaluate for possible penitentiary placement if continued rehab needed. 6. Continue home dose of Lasix, last hospital stay had a greater than 15 L positive fluid balance and scrotal edema the time of discharge. 7. Follow labs, correct electrolytes as needed Houston Cooper DO 04/10/2020 7:15 AM documented in this encounter* Juanita Espinal RN - 07/08/2020 9:30 AM EDT Discharge instructions reviewed and verbalizes understanding. Discharge criteria met documented in this encounter Assessments Diagnosis SBO (small bowel obstruction) (HCC)- Primary Unspecified intestinal obstruction Post-op pain Other acute postoperative pain Severe protein-calorie malnutrition (HCC) Other severe protein-calorie malnutrition Esophageal dysphagia Dysphagia, pharyngoesophageal phase Iron deficiency anemia Iron deficiency anemia, unspecified Essential hypertension Unspecified essential hypertension Diagnosis SBO (small bowel obstruction) (HCC)- Primary Unspecified intestinal obstruction Bowel obstruction (HCC) Unspecified intestinal obstruction Severe malnutrition (HCC) Nutritional marasmus Essential hypertension Unspecified essential hypertension History of Lauren-en-Y gastric bypass Bariatric surgery status Acute hypokalemia Hypopotassemia Anemia, normocytic normochromic Anemia, unspecified Hyponatremia Hyposmolality and/or hyponatremia Transaminasemia Nonspecific elevation of levels of transaminase or lactic acid dehydrogenase (LDH) Fatty liver Other chronic nonalcoholic liver disease BMI less than 19,adult Body Mass Index less than 19, adult Hypocalcemia Hypoglycemia Hypoglycemia, unspecified Esophageal stricture Stricture and stenosis of esophagus Ulcer of esophagus without bleeding Diagnosis Small bowel obstruction (HCC)- Primary Unspecified intestinal obstruction SBO (small bowel obstruction) (HCC) Unspecified intestinal obstruction Intra-abdominal adhesions s/p lysis Essential hypertension Unspecified essential hypertension Severe protein-calorie malnutrition (HCC) Other severe protein-calorie malnutrition Diagnosis Preoperative testing Preoperative examination, unspecified Advance Directives No Advanced Directives Records FoundLatest Code Status on File Code Status Date Activated Date Inactivated Comments Full Code 03/29/2020 10:14 PM Latest Code Status on File Code Status Date Activated Date Inactivated Comments Full Code 05/23/2020 8:23 PM Full Code 03/29/2020 10:14 PM 04/08/2020 10:13 PM Latest Code Status on File Code Status Date Activated Date Inactivated Comments Full Code 05/23/2020 8:23 PM 05/27/2020 5:42 PM Latest Code Status on File Code Status Date Activated Date Inactivated Comments Full Code 03/29/2020 10:14 PM 04/08/2020 10:13 PM Latest Code Status on File Code Status Date Activated Date Inactivated Comments Full Code 05/23/2020 8:23 PM 05/27/2020 5:42 PM Full Code 03/29/2020 10:14 PM 04/08/2020 10:13 PM Latest Code Status on File Code Status Date Activated Date Inactivated Comments Full Code 06/30/2021 1:59 AM Full Code 05/23/2020 8:23 PM 05/27/2020 5:42 PM Documents on File Type Date 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 Directive(s) 08/02/2021 8:37 AM Documents on File Type Date 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 Directive(s) 08/02/2021 8:37 AM Documents on File Type Date Recorded 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 Directive(s) 09/16/2021 11:04 AM Advance Directive(s) 08/02/2021 8:37 AM Documents on File Type Date Recorded 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 Directive(s) 09/16/2021 11:04 AM Advance Directive(s) 08/02/2021 8:37 AM Summary Purpose Family History No Family History Records FoundNo Family History Records FoundNo Family History Records FoundNo Family History Records FoundNo Family History Records Found Medications Administered Section Inactive Administered Medications - up to 3 most recent administrations Medication Order MAR Action Action Date Dose Rate Site NaCl 0.9% iv infusion 30 mL/hr, INTRAVENOUS, CONTINUOUS, Starting on Sun08/08/21 at 1230, Until Sun08/09/21 at 0423, Preprocedure New Bag/Syringe/Bottle 08/08/2021 12:30 PM EDT 30 mL/hr 30 mL/hr Inactive Administered Medications - up to 3 most recent administrations Medication Order MAR Action Action Date Dose Rate Site iron sucrose 100 mg in NaCl 0.9% 50 mL (VENOFER) 100 mg, INTRAVENOUS, Administer over 15 Minutes, ONCE, 1 dose, On Sun11/29/22 at 0930, Approx Total Volume Please conduct a 30 minute post dose observation. New Bag/Syringe/Bottle 11/29/2022 9:43 AM EDT 100 mg Inactive Administered Medications - up to 3 most recent administrations Medication Order MAR Action Action Date Dose Rate Site iron sucrose 100 mg in NaCl 0.9% 50 mL (VENOFER) 100 mg, INTRAVENOUS, at 200 mL/hr, Administer over 15 Minutes, ONCE, 1 dose, On Sun12/06/22 at 0830, Please conduct a 30 minute post dose observation. New Bag/Syringe/Bottle 12/06/2022 8:55 AM EDT 100 mg 200 mL/hr Reason for Referral Specialty Diagnoses / Procedures Referred By Shaun barrera Referred To Contact Diagnoses Gastrojejunal ulcer Epigastric pain Preoperative examination Procedures IN PERSON CONSULT TO PACC Alysa Asencio MD [address] [place] [address] Referral ID Status Reason Start Date Expiration Date Visits Requested Visits Authorized [id number] Ref Not Required PCP Requested Referral 08/29/2021 11/27/2021 1 1 Specialty Diagnoses / Procedures Referred By Contac t Referred To [facility] Diagnoses Gastrojejunal ulcer Epigastric pain Preoperative examination Procedures ECG COMPLETE ECG ROUTINE ECG W/LEAST 12 LDS W/I&R Alysa Asencio MD [address] [place] [address] [facility] [address] [place] [address] Referral ID Status Reason Start Date Expiration Date Visits Requested Visits Authorized [id number] Pending Review Auto-Generat ed Referral 08/29/2021 08/29/2022 1 1 Specialty Diagnoses / Procedures Referred By Contac t Referred To Contact Dermatology Diagnoses Squamous cell carcinoma skin of abdomen Procedures CONSULT TO DERMATOLOGY Alysa Asencio MD [address] [place] [id number] Referral ID Status Reason Start Date Expiration Date Visits Requested Visits Authorized [id number] Ref Not Required PCP Requested Referral 01/20/2022 01/20/2023 1 1 Specialty Diagnoses / Procedures Referred By Contac t Referred To Contact Oncology Diagnoses Skin cancer Procedures CONSULT TO ONCOLOGY OFFICE/OUTPATIENT NEW HIGH MDM 60-74 MINUTES Sabina Bean PA-C [address] [place] [address] Referral ID Status Reason Start Date Expiration Date Visits Requested Visits Authorized [id number] Authorized PCP Requested Referral 10/13/2022 10/13/2023 1 1 Specialty Diagnoses / Procedures Referred By Contac t Referred To Contact CT IMAGING Diagnoses Skin cancer Procedures CT CHEST W IVCON DIAGNOSTIC COMPUTED TOMOGRAPHY THORAX W/CONTRAST Yina Gerardo MD [address] [place] [address] Ct Imaging Referral ID Status Reason Start Date Expiration Date Visits Requested Visits Authorized [id number] Additional Clinical Info Needed Auto-Generat ed Referral 10/26/2022 11/24/2023 1 1 Specialty Diagnoses / Procedures Referred By Contac t Referred To Contact CT IMAGING Diagnoses Skin cancer Infection in abdomen (HCC) Procedures CT ABD/PEL W IVCON CT ABD & PELVIS W/CONTRAST Yina Gerardo MD [address] [place] [address] Ct Imaging Referral ID Status Reason Start Date Expiration Date Visits Requested Visits Authorized [id number] Additional Clinical Info Needed Auto-Generat ed Referral 10/26/2022 11/24/2023 1 1 Health Concerns Infection Onset Date Last Indicated Resolved Time COVID-19 Rule-Out 01/18/2022 01/18/2022 Additional Source Comments Reason for Visit (unrecogniz ed section and content) Status Reason Specialty Diagnoses / Procedures Referre d By Contact Referred To Contact Diagnoses SBO (small bowel obstruction) (HCC) gastric bypass 10 yrs ago abd pain vomiting Jose Bello DO [address] [place], [place] [facility] Status Reason Specialty Diagnoses / Procedures Referre d By Contact Referred To Contact Diagnoses Bowel obstruction (HCC) bowel obstruction Jose Bello DO [address] [place], [place] [facility] Status Reason Specialty Diagnoses / Procedures Re ferred By Contact Referred To Contact Diagnoses 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 Procedures HI ESOPHAGOGASTRODUODENOSCOPY TRANSORAL DIAGNOSTIC EGD ESOPHAGOGASTRODUODENOSCOPY Lalo Lambert MD [address] [facility] [address] [place] [address] [facility] Status Reason Specialty Diagnoses / Procedures Referre d By Contact Referred To Contact Diagnoses Small bowel obstruction (HCC) bowel obstruction Houston Cooper DO [address] [facility], [address] [place] [address] [facility] Status Reason Specialty Diagnoses / Procedures Re ferred By Contact Referred To Contact Diagnoses Other postprocedural complications and disorders of digestive system GASTROJEJUNAL ANASTOMATIC STRICTURE Procedures HI EGD DILATION GASTRIC/DUODENAL STRICTURE EGD ESOPHAGOGASTRODUODENOSCOPY DILATATION Lalo Lambert MD [address] [place] [address] [address] [place] [address] [facility] Status Reason Specialty Diagnoses / Procedures Re ferred By Contact Referred To Contact Diagnoses Other postprocedural complications and disorders of digestive system GASTROJEJUNAL ANASTOMOTIC STRICTURE Procedures HI EGD DILATION GASTRIC/DUODENAL STRICTURE EGD ESOPHAGOGASTRODUODENOSCOPY DILATATION Lalo Lambert MD [address] [place] [address] [address] [place] [address] [facility] Status Reason Specialty Diagnoses / Procedures Re ferred By Contact Referred To Contact Diagnoses Gastrojejunal anastomotic leak GASTROJEJUNAL ANASTOMOTIC STRICTURE Procedures HI ESOPHAGOGASTRODUODENOSCOPY TRANSORAL DIAGNOSTIC EGD ESOPHAGOGASTRODUODENOSCOPY WITH DILITATION Lalo Lambert MD [address] [place] [address] [facility] Status Reason Specialty Diagnoses / Procedures Re ferred By Contact Referred To Contact Diagnoses Gastrojejunostomy tube status (HCC) ANASTOMATIC STENOSIS GASTROJEJUNOSTOMY Procedures HI ESOPHAGOGASTRODUODENOSCOPY TRANSORAL DIAGNOSTIC EGD ESOPHAGOGASTRODUODENOSCOPY WITH DILITATION Lalo Lambert MD [address] [place] [address] [address] [place] [address] [facility] Status Reason Specialty Diagnoses / Procedures Re ferred By Contact Referred To Contact Diagnoses Biliary anastomotic stenosis ANASTOMOTIC STENOSIS OF GASTROJEJUNOSTOMY Procedures HI GI ENDOSCOPIC ULTRASOUND ENDOSCOPIC ULTRASOUND, EGD WITH DILATION Lalo Lambert MD [address] [place] [address] [address] [place] [address] [facility] [employer] Status Reason Specialty Diagnoses / Procedures Re ferred By Contact Referred To Contact Diagnoses 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 GASTROJEJUNAL STRICTURE, ANASTOMOTIC STRICTURE Procedures HI ESOPHAGOGASTRODUODENOSCOPY TRANSORAL DIAGNOSTIC EGD ESOPHAGOGASTRODUODENOSCOPY, [place] [address] [place] [address] [address] [place] [address] [facility] [employer] Status Reason Specialty Diagnoses / Procedures Re ferred By Contact Referred To Contact Diagnoses Other postprocedural complications and disorders of digestive system ANASTAMOTIC STENOSIS GASTROJEJUNOSTOMY Procedures HI ESOPHAGOGASTRODUODENOSCOPY TRANSORAL DIAGNOSTIC EGD ESOPHAGOGASTRODUODENOSCOPY WITH STENT PLACEMENT Lalo Lambert MD [address] [facility] [address] [place] [id number] [facility] Status Reason Specialty Diagnoses / Procedures Re ferred By Contact Referred To Contact Diagnoses Stenosis of surgical anastomosis site of digestive tract ANASTOMATIC STENOSIS OF GASTRO JEJUNOSTOMY Procedures HI ESOPHAGOSCOPY INTRA/TRANSMURAL NEEDLE ASPIRAT/BX EGD ESOPHAGOGASTRODUODENOSCOPY WITH STENT PLACEMENT Lalo Lambert MD [address] [facility] [address] [place] [address] [facility] Reason Comments New Patient Reason Comments Patient Update Reason Comments Appointment Reason Comments Patient Question Reason Comments Called Back Reason Comments 10/04/2021 Reason Comments Radio Gen RMP Reason Comments CoPat Agency Reason Comments CoPat Start Reason Comments Post Op Follow Up Reason Comments Appointment Patient Question Reason Comments Returning Patient's Call Reason Comments Call Back 48 Hours Reason Comments Medication Problem Reason Comments Patient Question Returning Patient's Call Reason Comments Patient Update Appointment Reason Comments Returning 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 Reason Comments Patient Question Reason Comments Results Reason Comments Orders Patient Update Reason Comments Consult Specialty Diagnoses / Procedures Referred By Shaun t Referred To Contact Oncology Diagnoses Skin cancer Procedures CONSULT TO ONCOLOGY OFFICE/OUTPATIENT NEW HIGH MDM 60-74 MINUTES Sabina Bean PA-C [address] [place] [address] Referral ID Status Reason Start Date Expiration Date V isits Requested Visits Authorized [id number] Closed PCP Requested Referral 10/13/2022 10/13/2023 1 1 Specialty Diagnoses / Procedures Referred By Contac t Referred To Contact Diagnoses Iron deficiency anemia secondary to inadequate dietary iron intake Procedures IRON SUCROSE INJECTION PER 1 MG 100mg once a week x4 Yina Gerardo MD [address] [place] [address] [facility] [address] [address] [place] [address] Referral ID Status Reason Start Date Expiration Date V isits Requested Visits Authorized [id number] Authorized 11/15/2022 04/15/2023 99 99 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 Comments 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 Tumor 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 dis cussion Ordered Prescriptions (unrec ognized section and content) Prescription Sig Dispensed Refills Start Date End Da te furosemide (LASIX) 20 MG tablet Take 1 tablet by mouth daily for 5 days 5 tablet 0 04/08/2020 04/13/2020 famotidine (PEPCID) 20 MG tablet Take 1 tablet by mouth daily 60 tablet 3 04/08/2020 Multiple Vitamins-Minerals (THERAPEUTIC MULTIVITAMIN-MINERALS) tablet Take 1 tablet by mouth daily 0 04/09/2020 ondansetron (ZOFRAN) 4 MG tablet Take 1 tablet by mouth every 8 hours as needed for Nausea or Vomiting 30 tablet 0 03/30/2020 docusate sodium (COLACE) 100 MG capsule Take 1 capsule by mouth 2 times daily 30 capsule 0 03/30/2020 04/29/2020 oxyCODONE-acetaminophen (PERCOCET) 5-325 MG per tabletIndications:Post- op pain Take 1 tablet by mouth every 6 hours as needed for Pain for up to 7 days. Intended supply: 3 days. Take lowest dose possible to manage pain 28 tablet 0 03/30/2020 04/06/2020 Prescription Sig Dispensed Refills Start Date End Da te pantoprazole (PROTONIX) 40 MG tablet Take 1 tablet by mouth 2 times daily (before meals) 30 tablet 3 05/27/2020 sucralfate (CARAFATE) 1 GM tablet Take 1 tablet by mouth 4 times daily (after meals and at bedtime) 120 tablet 3 05/27/2020 HYDROcodone-acetaminop hen (NORCO) 5-325 MG per tabletIndications:SBO (small bowel obstruction) (HCC) Take 1 tablet by mouth every 6 hours as needed for Pain for up to 5 days. 15 tablet 0 05/26/2020 05/31/2020 TPN WITH LIPIDS, OUTPATIENT ONLY, 1,320 mLs by Intravenous (Continuous Infusion) route daily for 14 days 18.4 L 2 05/26/2020 06/09/2020 Prescription Sig Dispensed Refills Start Date End Da te cyclobenzaprine (FLEXERIL) 5 MG tablet Take 1 tablet by mouth 3 times daily as needed for Muscle spasms 30 tablet 0 04/12/2020 04/22/2020 metoclopramide (REGLAN) 5 MG tablet Take 1 tablet by mouth 4 times daily (before meals and nightly) 120 tablet 3 04/12/2020 gabapentin (NEURONTIN) 300 MG capsule Take 1 capsule by mouth every 8 hours for 30 days. 90 capsule 1 04/12/2020 05/12/2020 ibuprofen (ADVIL;MOTRIN) 400 MG tablet Take 1 tablet by mouth every 6 hours 120 tablet 3 04/12/2020 calcium carbonate (TUMS) 500 MG chewable tablet Take 2 tablets by mouth 3 times daily as needed for Heartburn 0 04/12/2020 05/12/2020 oxyCODONE-acetaminophen (PERCOCET) 5-325 MG per tabletIndications:SBO (small bowel obstruction) (HCC),Intra-abdominal adhesions Take 1 tablet by mouth every 4 hours as needed for Pain for up to 5 days. 20 tablet 0 04/12/2020 04/17/2020 Prescription Sig Dispensed Refills Start Date End Da te omeprazole (PRILOSEC) 40 MG delayed release capsule Take 1 capsule by mouth 2 times daily (before meals) Open capsule and dump contents on 1 teaspoon of applesauce before swallowing twice daily. 30 capsule 2 07/01/2021 Scheduled Active and Recently Administ ered Medications (unrecognized section and content) Medication Order 08/31/2020 09/01/2020 09/02/2020 0.9 % sodium chloride infusion (COMPLETED) Intravenous, at 30 mL/hr, ONCE, On [place] 09/02/20 at 0915, For 1 dose 0851 (New Bag - Prov ider: Veronica White, MIGUELITO)1110 (Stopped - Provider: Veronica White RN) Continuous Medication Order 09/28/2020 09/29/2020 09/30/2020 0.9 % sodium chloride infusion Intravenous, at 30 mL/hr, CONTINUOUS, Starting on [place] 09/30/20 at 0745 0721 (New Bag - Prov ider: Smiley Perry, MIGUELITO)0721 (Paused - Provider: AQUILES Lundberg OPTICAL STORE MANAGER - Comment: Switch to gravity)0722 (New Bag - Provider: AQUILES Lundberg CRNA)0852 (New Bag - Provider: AQUILES Lundberg OPTICAL STORE MANAGER)0917 (Anesthesia Volume Adjustment - Provider: AQUILES Lundberg CRNA)1003 (Stopped - Provider: Smiley Perry RN) Continuous Medication Order 10/26/2020 10/27/2020 10/28/2020 0.9 % sodium chloride infusion Intravenous, at 20 mL/hr, CONTINUOUS, Starting on [place] 10/28/20 at 0800 0738 (New Bag - Prov ider: Gloria Delong RN)0827 (Paused - Provider: Lalo Lambert MD - Comment: Switch to gravity)0828 (Restarted - Provider: Lalo Lambert MD)0838 (Anesthesia Volume Adjustment - Provider: Sherry Moore APRN OPTICAL STORE MANAGER) Continuous Medication Order 11/23/2020 11/24/2020 11/25/2020 0.9 % sodium chloride infusion Intravenous, at 30 mL/hr, CONTINUOUS, Starting on [place] 11/25/20 at 0800 0753 (New Bag - Prov ider: Caroline Hwang, MIGUELITO)0934 (NoRateChange - Provider: Lalo Lambert MD)0956 (Paused - Provider: AQUILES Vaughan CRNA - Comment: Switch to gravity)0957 (Restarted - Provider: AQUILES Vaughan CRNA)1029 (Stopped - Provider: Caroline Hwang RN) Scheduled Medication Order 02/15/2021 02/16/2021 02/17/2021 0.9 % sodium chloride infusion (COMPLETED) IntraVENous, at 20 mL/hr, ONCE, On [place] 02/17/21 at 0800, For 1 dose 0811 (New Bag - Prov ider: Caroline Hwang RN)0934 (Stopped - Provider: Caroline Hwang RN) Scheduled Medication Order 06/20/2021 06/21/2021 06/22/2021 0.9 % sodium chloride infusion (COMPLETED) IntraVENous, at 30 mL/hr, ONCE, On Sun06/22/21 at 0830, For 1 dose 0814 (New Bag - Prov ider: Celi Reyes RN)1133 (Stopped - Provider: Juanita Espinal RN) Scheduled Medication Order 07/02/2021 07/03/2021 07/04/2021 DULoxetine (CYMBALTA) extended release capsule 30 mg (CANCELED) 30 mg, Oral, DAILY, First dose on [place] 06/30/21 at 2130, Do not crush or break. May add contents of capsule to apple juice or apple sauce, but not chocolate. 0810 (Given - Provider: Jane Epps RN) DULoxetine (CYMBALTA) extended release capsule 30 mg 30 mg, Oral, 2 TIMES DAILY, First dose (after last modification) on 07/02/21 at 2145, Do not crush or break. May add contents of capsule to apple juice or apple sauce, but not chocolate. 2221 (Given - Provider: Arlene Simmons RN) 0842 (Given - Provider: Delmy Marques RN)2211 (Given - Provider: Sapphire Ventura) 0941 (Given - Provider: Juan Barksdale, MIGUELITO)2100 (Due) enoxaparin (LOVENOX) injection 40 mg 40 mg, SubCUTAneous, DAILY, First dose on [place] 06/30/21 at 0900 0810 (Given - Provider: Jane Epps RN) 0842 (Given - Provider: Delmy Marques RN) 0941 (Given - Provider: Juan Barksdale, MIGUELITO) lidocaine PF 1 % injection 5 mL 5 mL, IntraDERmal, ONCE, On [place] 06/30/21 at 1415, For 1 dose omeprazole (PRILOSEC) delayed release capsule 40 mg 40 mg, Oral, 2 TIMES DAILY BEFORE MEALS, First dose on 07/02/21 at 0700, Do not crush or break. Pt is to be dc today and will need this as OP due to previous RNY surgery 1002 (Given - Provider: Jane Epps RN)1618 (Given - Provider: Jane Epps RN) 1043 (Given - Provider: Delmy Marques RN)1737 (Given - Provider: Delmy Marques RN) 0956 (Not Given - Provider: Juan Barksdale RN - Reason: Medication not available)1600 (Due) pregabalin (LYRICA) capsule 150 mg (CANCELED) 150 mg, Oral, 2 TIMES DAILY, First dose on [place] 06/30/21 at 2100 0810 (Given - Provider: Jane Epps RN)2204 (Canceled Entry - Provider: Arlene Simmons RN - Comment: duplicate) pregabalin (LYRICA) capsule 150 mg 150 mg, Oral, EVERY 8 HOURS, First dose (after last modification) on 07/02/21 at 2145 2221 (Given - Provider: Arlene Simmons RN) 0603 (Given - Provider: Arlene Simmons RN)1345 (Given - Provider: Delmy Marques RN)2211 (Given - Provider: Sapphire Venutra) 0616 (Given - Provider: Sapphire Ventura)1329 (Given - Provider: Juan Barksdale, MIGUELITO)2145 (Due) sodium chloride flush 0.9 % injection 5-40 mL 5-40 mL, IntraVENous, EVERY 12 HOURS SCHEDULED (2 times per day), First dose on [place] 06/30/21 at 0900, For Line Patency: Peripheral IV = 5 mL; Midline or Central Line = 10 mL/lumen. If following IV push medication, administer flush at same rate as the IV push. Flush volume is determined by type of infusion therapy being given. For non-viscous solutions use: Peripheral IV = 5 mL Midline or Central Line = 10 mL/lumen For viscous solutions (i.e. blood components, parenteral nutrition, contrast media, or after obtaining blood sample) use: Peripheral IV = 10 mL Midline or Central Line = 20 mL/lumen 1541 (Not Given - Provider: Jane Epps RN - Reason: Other - Comment: duplicate)2222 (Canceled Entry - Provider: Arlene Simmons RN) 1213 (Not Given - Provider: Delmy Marques RN - Reason: Other)2216 (Not Given - Provider: Sapphire Ventura - Reason: Order parameters not met) 0943 (Given - Provider: Juan Barksdale, MIGUELITO)2100 (Due) sodium chloride flush 0.9 % injection 5-40 mL 5-40 mL, IntraVENous, EVERY 12 HOURS SCHEDULED (2 times per day), First dose on [place] 06/30/21 at 2100, For Line Patency: Peripheral IV = 5 mL; Midline or Central Line = 10 mL/lumen. If following IV push medication, administer flush at same rate as the IV push. Flush volume is determined by type of infusion therapy being given. For non-viscous solutions use: Peripheral IV = 5 mL Midline or Central Line = 10 mL/lumen For viscous solutions (i.e. blood components, parenteral nutrition, contrast media, or after obtaining blood sample) use: Peripheral IV = 10 mL Midline or Central Line = 20 mL/lumen 0810 (Given - Provider: Jane Epps RN)2221 (Given - Provider: Arlene Simmons RN) 1213 (Not Given - Provider: Delmy Marques RN - Reason: Other)2214 (Given - Provider: Sapphire Ventura)2215 (Given - Provider: Sapphire Ventura) 0943 (Given - Provider: Juan Barksdale, MIGUELITO)2100 (Due) Continuous Medication Order 07/02/2021 07/03/2021 07/04/2021 PN-Adult Premix 5/20 - Standard Electrolytes - Central Line () IntraVENous, at 84 mL/hr, Administer over 24 Hours, CONTINUOUS TPN, Starting on 07/02/21 at 1800, For 24 hours 1829 (New Bag - Provider: Jane Epps RN)1833 (Rate/Dose Verify - Provider: Jane Epps RN)1835 (Rate/Dose Verify - Provider: Jane Epps RN) 1859 (Stopped - Provider: Delmy Marques RN) PN-Adult Premix 5/20 - Standard Electrolytes - Central Line IntraVENous, at 84 mL/hr, Administer over 24 Hours, CONTINUOUS TPN, Starting on [place] 07/03/21 at 1800, For 24 hours 1736 (New Bag - Provider: Delmy Marques RN)1738 (Rate/Dose Verify - Provider: Sapphire Ventura) 0157 (Rate/Dose Verify - Provider: Sapphire Ventura)0617 (Rate/Dose Verify - Provider: Sapphire Ventura)1506 (Stopped - Provider: Juan Barksdale RN) PRN Medication Order 07/02/2021 07/03/2021 07/04/2021 0.9 % sodium chloride infusion 25 mL, IntraVENous, at 100 mL/hr, PRN, If patient receiving piggyback infusions without ordered maintenance IV fluids or with frequent/long duration piggyback infusions, Starting on [place] 06/30/21 at 0159, Administer at the same rate as the piggyback being infused. 0.9 % sodium chloride infusion 25 mL, IntraVENous, at 100 mL/hr, PRN, If patient receiving piggyback infusions without ordered maintenance IV fluids or with frequent/long duration piggyback infusions, Starting on [place] 06/30/21 at 1349, Administer at the same rate as the piggyback being infused. acetaminophen (TYLENOL) suppository 650 mg(Linked Group 1) 650 mg, Rectal, EVERY 6 HOURS PRN, Pain Mild (1-3), Fever, For temp greater than 100.4 F (38 C), Starting on [place] 06/30/21 at 0159, Administer if oral route cannot be used. acetaminophen (TYLENOL) tablet 650 mg(Linked Group 1) 650 mg, Oral, EVERY 6 HOURS PRN, Pain Mild (1-3), Fever, For temp greater than 100.4 F (38 C), Starting on [place] 06/30/21 at 0159, Maximum dose of acetaminophen is 4000 mg from all sources in 24 hours. magnesium sulfate 1000 mg in dextrose 5% 100 mL IVPB 1,000 mg, IntraVENous, at 100 mL/hr, Administer over 1 Hours, PRN, Other, Per IV Magnesium Replacement Protocol, Starting on [place] 06/30/21 at 0159, Mg Lab Replacement Action 1.4-1.6 1 gram IVPB x 2 doses (2 gram Total) 1.0-1.3 1 gram IVPB x 4 doses (4 gram Total) <1.0 CALL PHYSICIAN and 1 gram IVPB x 4 doses (4 gram Total) Infuse at 1 gram/hr Repeat Mag level next AM Protocol not for use in Patients with CrCl<30ml/min ondansetron (ZOFRAN) injection 4 mg(Linked Group 2) 4 mg, IntraVENous, EVERY 6 HOURS PRN, Nausea, Vomiting, Starting on [place] 06/30/21 at 0159, Administer if oral route cannot be used. ondansetron (ZOFRAN-ODT) disintegrating tablet 4 mg(Linked Group 2) 4 mg, Oral, EVERY 8 HOURS PRN, Nausea, Vomiting, Starting on [place] 06/30/21 at 0159 polyethylene glycol (GLYCOLAX) packet 17 g 17 g, Oral, DAILY PRN, Constipation, Starting on [place] 06/30/21 at 0159, First line therapy for constipation potassium bicarb-citric acid (EFFER-K) effervescent tablet 40 mEq(Linked Group 3) 40 mEq, Oral, PRN, Per Potassium Replacement Protocol, Starting on [place] 06/30/21 at 0159, Administer as alternative if patient unable to tolerate oral tablet. K Lab Replacement Action 3.1 to 3.5 40 mEq ORAL x 1 Under 3.1 Refer to IV replacement protocol Recheck K level in AM. Protocol not for use in patients with CrCl less than 30 mL/min. Do not chew or crush. Dissolve flavored tablets completely in 3 to 4 ounces of cold water; unflavored tablets may be dissolved in 3 to 4 ounces of cold juice. Patient to sip slowly over a 5 to 10 minute period. May further dilute if GI adverse effects occur. potassium chloride (KLOR-CON M) extended release tablet 40 mEq(Linked Group 3) 40 mEq, Oral, PRN, Potassium Replacement, Starting on [place] 06/30/21 at 0159, May give oral solution if patient unable to tolerate tablet. K Lab Replacement Action 3.1-3.5 40 mEq ORAL x 1 2.7-3.0 Refer to IV replacement orders < 2.7 Refer to IV replacement orders Recheck K level in AM. Not for use in patients with CrCl less than 30 mL/min. potassium chloride 10 mEq/100 mL IVPB (Peripheral Line)(Linked Group 3) 10 mEq, IntraVENous, at 100 mL/hr, PRN, Potassium Replacement, Starting on [place] 06/30/21 at 0159, K Lab Replacement Action 2.7-3.0 10 mEq IVPB x 6 doses (60 mEq Total) < 2.7 CALL PHYSICIAN and 10 mEq IVPB x 6 doses (60 mEq Total) Infuse at 10 mEq/hr Repeat Potassium lab 1 hour after final administration. Not for use in patients with CrCl less than 30 mL/min. sodium chloride flush 0.9 % injection 10 mL 10 mL, IntraVENous, PRN, Line Care, After every IV line use, Starting on [place] 06/30/21 at 0159 sodium chloride flush 0.9 % injection 5-40 mL 5-40 mL, IntraVENous, PRN, Line Care, Starting on [place] 06/30/21 at 1349, For Line Patency: Peripheral IV = 5 mL; Midline or Central Line = 10 mL/lumen. If following IV push medication, administer flush at same rate as the IV push. Flush volume is determined by type of infusion therapy being given. For non-viscous solutions use: Peripheral IV = 5 mL Midline or Central Line = 10 mL/lumen For viscous solutions (i.e. blood components, parenteral nutrition, contrast media, or after obtaining blood sample) use: Peripheral IV = 10 mL Midline or Central Line = 20 mL/lumen zolpidem (AMBIEN) tablet 5 mg 5 mg, Oral, NIGHTLY PRN, Sleep, Starting on [place] 07/03/21 at 2100 2211 (Given - Provider: Sapphire Ventura) Linked Groups Order Group 1: acetaminophen (TYLENOL) tablet 650 mgJump to med 650 mg, Oral, EVERY 6 HOURS PRN, Pain Mild (1-3), Fever, For temp greater than 100.4 F (38 C), Starting on [place] 06/30/21 at 0159
Maximum dose of acetaminophen is 4000 mg from all sources in 24 hours.
Or acetaminophen (TYLENOL) suppository 650 mgJump to med 650 mg, Rectal, EVERY 6 HOURS PRN, Pain Mild (1-3), Fever, For temp greater than 100.4 F (38 C), Starting on [place] 06/30/21 at 0159
Administer if oral route cannot be used.
Group 2: ondansetron (ZOFRAN-ODT) disintegrating tablet 4 mgJump to med 4 mg, Oral, EVERY 8 HOURS PRN, Nausea, Vomiting, Starting on [place] 06/30/21 at 0159 Or ondansetron (ZOFRAN) injection 4 mgJump to med 4 mg, IntraVENous, EVERY 6 HOURS PRN, Nausea, Vomiting, Starting on [place] 06/30/21 at 0159
Administer if oral route cannot be used.
Group 3: potassium chloride (KLOR-CON M) extended release tablet 40 mEqJump to med 40 mEq, Oral, PRN, Potassium Replacement, Starting on [place] 06/30/21 at 0159
May give oral solution if patient unable to tolerate tablet. K Lab Replacement Action 3.1-3.5 40 mEq ORAL x 1 & nbsp; 2.7-3.0 Refer to IV replacement orders < 2.7 Refer to IV replacement orders Recheck K level in AM. Not for use in patients with CrCl less than 30 mL/min.
Or potassium bicarb-citric acid (EFFER-K) effervescent tablet 40 mEqJump to med 40 mEq, Oral, PRN, Per Potassium Replacement Protocol, Starting on [place] 06/30/21 at 0159
Administer as alternative if patient unable to tolerate oral tablet. K Lab R epakc ement Action 3.1 to 3.5 40 mEq ORAL x 1 Under 3.1 Refer to IV replacement protocol Recheck K level in AM. Protocol not for use in patients with CrCl less than 30 mL/min. Do not chew or crush. Dissolve flavored tablets completely in 3 to 4 ounces of cold water; unflavored tablets may be dissolved in 3 to 4 ounces of cold juice. Patient to sip slowly over a 5 to 10 minute period. May further dilute if GI adverse effects occur.
Or potassium chloride 10 mEq/100 mL IVPB (Peripheral Line)Jump to med 10 mEq, IntraVENous, at 100 mL/hr, PRN, Potassium Replacement, Starting on [place] 06/30/21 at 0159
K Lab Replacement Action 2.7-3.0 10 mEq IVPB x 6 doses (60 mEq Total) < 2.7 CALL PHYSICIAN and 10 mEq IVPB x 6 doses (60 mEq Total) Infuse at 10 mEq/hr Repeat Potassium lab 1 hour after final administration. Not for use in patients with CrCl less than 30 mL/min.
(unrecognized sect ion and content) No Status Records FoundNo Status Records FoundNo Status Records FoundNo Status Records FoundNo Status Records Found INFORMATION SOURCE (unrecogn ized section and content) DATE CREATED AUTHOR 09/07/2020 [facility] DATE CREATED AUTHOR AUTHOR'S ORGANIZ ATION 07/13/2021 [facility] DATE CREATED AUTHOR AUTHOR'S ORGANIZ ATION 08/27/2021 [facility] DATE CREATED AUTHOR AUTHOR'S ORGANIZ ATION 08/08/2022 [facility] DATE CREATED AUTHOR AUTHOR'S ORGANIZ ATION 12/08/2022 [facility] [place] Care Teams (unrecognized sec tion and content) Metal Furrer Relationship Specialty Start Date End Date Salvatore Gomez MD [address] [place] [address] PCP - General 3/9/21 Metal Furrer Relationship Specialty Start Date End Date Salvatore Gomez MD [address] [place] [address] PCP - General 06/22/20 Metal Furrer Relationship Specialty Start Date End Date Salvatore Camargo MD [address] [place] [address] PCP - General Internal Medicine 09/16/21 Metal Furrer Relationship Specialty Start Date End Date Salvatore Camargo MD [address] [facility] [place] [address] PCP - General Internal Medicine 09/16/21 Metal Furrer Relationship Specialty Start Date End Date Salvatore Camargo MD [address] [facility] [place] [address] PCP - General Internal Medicine 09/16/21 Metal Furrer Relationship Specialty Start Date End Date Salvatore Camargo MD [address] [facility] [place] [address] PCP - General Internal Medicine 09/16/21 Metal Furrer Relationship Specialty Start Date End Date Salvatore Camargo MD [address] [facility] [place] [address] PCP - General Internal Medicine 09/16/21 Metal Furrer Relationship Specialty Start Date End Date Salvatore Camargo MD [address] [place] [address] PCP - General Internal Medicine 09/16/21 Metal Furrer Relationship Specialty Start Date End Date Salvatore Camargo MD [address] [place] [address] PCP - General Internal Medicine 09/16/21 Metal Furrer Relationship Specialty Start Date End Date Salvatore Camargo MD [address] [place] [address] PCP - General Internal Medicine 09/16/21 Metal Furrer Relationship Specialty Start Date End Date Salvatore Camargo MD [address] [place] [address] PCP - General Internal Medicine 09/16/21 Metal Furrer Relationship Specialty Start Date End Date Salvatore Camargo MD [address] [place] [address] PCP - General Internal Medicine 09/16/21 Metal Furrer Relationship Specialty Start Date End Date Salvatore Camargo MD [address] [place] [address] PCP - General Internal Medicine 09/16/21 Metal Furrer Relationship Specialty Start Date End Date Salvatore Camargo MD [address] [place] [facility] [place] [address] PCP - General Internal Medicine 09/16/21 Metal Furrer Relationship Specialty Start Date End Date Salvatore Camargo MD [address] [place] [address] PCP - General Internal Medicine 09/16/21 Metal Furrer Relationship Specialty Start Date End Date Salvatore Camargo MD PCP - General Internal Medicine 09/16/21 Metal Furrer Relationship Specialty Start Date End Date Salvatore Camargo MD PCP - General Internal Medicine 09/16/21 Metal Furrer Relationship Specialty Start Date End Date Salvatore Camargo MD PCP - General Internal Medicine 09/16/21 Metal Furrer Relationship Specialty Start Date End Date Salvatore Camargo MD PCP - General Internal Medicine 09/16/21 Arlene Carrillo, RN Specialty Pcb Design Engineer Hematology/Oncology 11/03/22 Metal Furrer Relationship Specialty Start Date End Date Salvatore Camargo MD PCP - General Internal Medicine 09/16/21 Arlene Carrillo, RN Specialty Pcb Design Engineer Hematology/Oncology 11/03/22 Metal Furrer Relationship Specialty Start Date End Date Salvatore Camargo MD PCP - General Internal Medicine 09/16/21 Arlene Carrillo, RN Specialty Pcb Design Engineer Hematology/Oncology 11/03/22 Metal Furrer Relationship Specialty Start Date End Date Salvatore Camargo MD PCP - General Internal Medicine 09/16/21 Arlene Carrillo, RN Specialty Pcb Design Engineer Hematology/Oncology 11/03/22 Source Comments (unrecognize d section and content) In the event this informatio n is protected by the Federal Confidentiality of Alcohol and Drug Abuse Patient Records regulations: The Federal rules restrict any use of the information to criminally investigate or prosecute any alcohol or drug abuse patient.[facility] the event this information is protected by the Federal Confidentiality of Alcohol and Drug Abuse Patient Records regulations: The Federal rules restrict any use of the information to criminally investigate or prosecute any alcohol or drug abuse patient.[facility] the event this information is protected by the Federal Confidentiality of Alcohol and Drug Abuse Patient Records regulations: The Federal rules restrict any use of the information to criminally investigate or prosecute any alcohol or drug abuse patient.[facility] the event this information is protected by the Federal Confidentiality of Alcohol and Drug Abuse Patient Records regulations: The Federal rules restrict any use of the information to criminally investigate or prosecute any alcohol or drug abuse patient.[facility] the event this information is protected by the Federal Confidentiality of Alcohol and Drug Abuse Patient Records regulations: The Federal rules restrict any use of the information to criminally investigate or prosecute any alcohol or drug abuse patient.[facility] Hospital[facility] the event this information is protected by the Federal Confidentiality of Alcohol and Drug Abuse Patient Records regulations: The Federal rules restrict any use of the information to criminally investigate or prosecute any alcohol or drug abuse patient.[facility] Hospital[facility] the event this information is protected by the Federal Confidentiality of Alcohol and Drug Abuse Patient Records regulations: The Federal rules restrict any use of the information to criminally investigate or prosecute any alcohol or drug abuse patient.[facility] Hospital[facility] the event this information is protected by the Federal Confidentiality of Alcohol and Drug Abuse Patient Records regulations: The Federal rules restrict any use of the information to criminally investigate or prosecute any alcohol or drug abuse patient.[facility] Hospital[facility] the event this information is protected by the Federal Confidentiality of Alcohol and Drug Abuse Patient Records regulations: The Federal rules restrict any use of the information to criminally investigate or prosecute any alcohol or drug abuse patient.[facility] HospitalIn the event this information is protected by the Federal Confidentiality of Alcohol and Drug Abuse Patient Records regulations: The Federal rules restrict any use of the information to criminally investigate or prosecute any alcohol or drug abuse patient.[facility] HospitalIn the event this information is protected by the Federal Confidentiality of Alcohol and Drug Abuse Patient Records regulations: The Federal rules restrict any use of the information to criminally investigate or prosecute any alcohol or drug abuse patient.[facility] HospitalIn the event this information is protected by the Federal Confidentiality of Alcohol and Drug Abuse Patient Records regulations: The Federal rules restrict any use of the information to criminally investigate or prosecute any alcohol or drug abuse patient.[facility] HospitalIn the event this information is protected by the Federal Confidentiality of Alcohol and Drug Abuse Patient Records regulations: The Federal rules restrict any use of the information to criminally investigate or prosecute any alcohol or drug abuse patient.[facility] HospitalIn the event this information is protected by the Federal Confidentiality of Alcohol and Drug Abuse Patient Records regulations: The Federal rules restrict any use of the information to criminally investigate or prosecute any alcohol or drug abuse patient.[facility] HospitalIn the event this information is protected by the Federal Confidentiality of Alcohol and Drug Abuse Patient Records regulations: The Federal rules restrict any use of the information to criminally investigate or prosecute any alcohol or drug abuse patient.[facility] HospitalIn the event this information is protected by the Federal Confidentiality of Alcohol and Drug Abuse Patient Records regulations: The Federal rules restrict any use of the information to criminally investigate or prosecute any alcohol or drug abuse patient.[facility] HospitalIn the event this information is protected by the Federal Confidentiality of Alcohol and Drug Abuse Patient Records regulations: The Federal rules restrict any use of the information to criminally investigate or prosecute any alcohol or drug abuse patient.[facility] HospitalIn the event this information is protected by the Federal Confidentiality of Alcohol and Drug Abuse Patient Records regulations: The Federal rules restrict any use of the information to criminally investigate or prosecute any alcohol or drug abuse patient.[facility] HospitalIn the event this information is protected by the Federal Confidentiality of Alcohol and Drug Abuse Patient Records regulations: The Federal rules restrict any use of the information to criminally investigate or prosecute any alcohol or drug abuse patient.[facility] HospitalIn the event this information is protected by the Federal Confidentiality of Alcohol and Drug Abuse Patient Records regulations: The Federal rules restrict any use of the information to criminally investigate or prosecute any alcohol or drug abuse patient.[facility] HospitalIn the event this information is protected by the Federal Confidentiality of Alcohol and Drug Abuse Patient Records regulations: The Federal rules restrict any use of the information to criminally investigate or prosecute any alcohol or drug abuse patient.[facility] HospitalIn the event this information is protected by the Federal Confidentiality of Alcohol and Drug Abuse Patient Records regulations: The Federal rules restrict any use of the information to criminally investigate or prosecute any alcohol or drug abuse patient.[facility] HospitalIn the event this information is protected by the Federal Confidentiality of Alcohol and Drug Abuse Patient Records regulations: The Federal rules restrict any use of the information to criminally investigate or prosecute any alcohol or drug abuse patient.[facility] HospitalIn the event this information is protected by the Federal Confidentiality of Alcohol and Drug Abuse Patient Records regulations: The Federal rules restrict any use of the information to criminally investigate or prosecute any alcohol or drug abuse patient.[facility] HospitalIn the event this information is protected by the Federal Confidentiality of Alcohol and Drug Abuse Patient Records regulations: The Federal rules restrict any use of the information to criminally investigate or prosecute any alcohol or drug abuse patient.[facility] HospitalIn the event this information is protected by the Federal Confidentiality of Alcohol and Drug Abuse Patient Records regulations: The Federal rules restrict any use of the information to criminally investigate or prosecute any alcohol or drug abuse patient.[facility] HospitalIn the event this information is protected by the Federal Confidentiality of Alcohol and Drug Abuse Patient Records regulations: The Federal rules restrict any use of the information to criminally investigate or prosecute any alcohol or drug abuse patient.[facility] HospitalIn the event this information is protected by the Federal Confidentiality of Alcohol and Drug Abuse Patient Records regulations: The Federal rules restrict any use of the information to criminally investigate or prosecute any alcohol or drug abuse patient.[facility] HospitalIn the event this information is protected by the Federal Confidentiality of Alcohol and Drug Abuse Patient Records regulations: The Federal rules restrict any use of the information to criminally investigate or prosecute any alcohol or drug abuse patient.[facility] HospitalIn the event this information is protected by the Federal Confidentiality of Alcohol and Drug Abuse Patient Records regulations: The Federal rules restrict any use of the information to criminally investigate or prosecute any alcohol or drug abuse patient.[facility] HospitalIn the event this information is protected by the Federal Confidentiality of Alcohol and Drug Abuse Patient Records regulations: The Federal rules restrict any use of the information to criminally investigate or prosecute any alcohol or drug abuse patient.[facility] HospitalIn the event this information is protected by the Federal Confidentiality of Alcohol and Drug Abuse Patient Records regulations: The Federal rules restrict any use of the information to criminally investigate or prosecute any alcohol or drug abuse patient.[facility] HospitalIn the event this information is protected by the Federal Confidentiality of Alcohol and Drug Abuse Patient Records regulations: The Federal rules restrict any use of the information to criminally investigate or prosecute any alcohol or drug abuse patient.[facility] HospitalIn the event this information is protected by the Federal Confidentiality of Alcohol and Drug Abuse Patient Records regulations: The Federal rules restrict any use of the information to criminally investigate or prosecute any alcohol or drug abuse patient.[facility] HospitalIn the event this information is protected by the Federal Confidentiality of Alcohol and Drug Abuse Patient Records regulations: The Federal rules restrict any use of the information to criminally investigate or prosecute any alcohol or drug abuse patient.[facility] HospitalIn the event this information is protected by the Federal Confidentiality of Alcohol and Drug Abuse Patient Records regulations: The Federal rules restrict any use of the information to criminally investigate or prosecute any alcohol or drug abuse patient.[facility] HospitalIn the event this information is protected by the Federal Confidentiality of Alcohol and Drug Abuse Patient Records regulations: The Federal rules restrict any use of the information to criminally investigate or prosecute any alcohol or drug abuse patient.[facility] HospitalIn the event this information is protected by the Federal Confidentiality of Alcohol and Drug Abuse Patient Records regulations: The Federal rules restrict any use of the information to criminally investigate or prosecute any alcohol or drug abuse patient.[facility] HospitalIn the event this information is protected by the Federal Confidentiality of Alcohol and Drug Abuse Patient Records regulations: The Federal rules restrict any use of the information to criminally investigate or prosecute any alcohol or drug abuse patient.[facility] HospitalIn the event this information is protected by the Federal Confidentiality of Alcohol and Drug Abuse Patient Records regulations: The Federal rules restrict any use of the information to criminally investigate or prosecute any alcohol or drug abuse patient.[facility] HospitalIn the event this information is protected by the Federal Confidentiality of Alcohol and Drug Abuse Patient Records regulations: The Federal rules restrict any use of the information to criminally investigate or prosecute any alcohol or drug abuse patient.[facility] HospitalIn the event this information is protected by the Federal Confidentiality of Alcohol and Drug Abuse Patient Records regulations: The Federal rules restrict any use of the information to criminally investigate or prosecute any alcohol or drug abuse patient.[facility] HospitalIn the event this information is protected by the Federal Confidentiality of Alcohol and Drug Abuse Patient Records regulations: The Federal rules restrict any use of the information to criminally investigate or prosecute any alcohol or drug abuse patient.[facility] FOR RECORDS PERTAINING TO PATIENTS WHO ARE OR HAVE BEEN ENROLLED IN A CHEMICAL DEPENDENCY/SUBSTANCEABUSE PROGRAM, SOME INFORMATION MAY BE OMITTED. This clinical summary was aggregated from multiple sources. Caution should be exercised in using it in the provision of clinical care. This summary normalizes information from multiple sources, and as a consequence, information in this document may materially change the coding, format and clinical context of patient data. In addition, data may be omitted in some cases. CLINICAL DECISIONS SHOULD BE BASED ON THE PRIMARY CLINICAL RECORDS. [facility] [employer] [facility]. provides no warranty or guarantee of the accuracy or completeness of information in this document.
== END 2023-05-15 08:22 | disposition home or self-care (01) ==
LOC: CT 08:21
PROVIDERS: PCP Nurse Practitioner Primary Care; Visit Provider Internal Medicine Hematology & Oncology
DX: D64.9 Anemia, unspecified (principal); D50.9 Iron deficiency anemia, unspecified; K90.9 Intestinal malabsorption, unspecified; D51.9 Vitamin B12 deficiency anemia, unspecified; C44.529 Squamous cell carcinoma of skin of other part of trunk; R10.84 Generalized abdominal pain
CPT/HCPCS: 74177; Q9967

== ENCOUNTER 2023-06-12 07:28 | Outpatient (RCR) | payer OTHER, SELFPAY | END 2023-06-14 23:59 | disposition home or self-care (01) | LOC: INF 07:28 | PROVIDERS: PCP Nurse Practitioner Primary Care; Visit Provider Internal Medicine Hematology & Oncology | DX: D64.9 Anemia, unspecified (principal); D50.9 Iron deficiency anemia, unspecified; D51.9 Vitamin B12 deficiency anemia, unspecified; C44.529 Squamous cell carcinoma of skin of other part of trunk; R10.84 Generalized abdominal pain | CPT/HCPCS: G0463 ==

== ENCOUNTER 2023-07-06 09:23 | Outpatient (OUT) | payer OTHER, SELFPAY ==
--- NOTE | 2023-07-06 09:36 | XR_ITS ---
The [address] [address] Patient Name: SABINA TIPTON MRN: [id number] date: 1980 Sex: M Assigned Patient Location: LAB Current Patient Location: LAB Accession/Order Number: [id number] Exam Date: 07/06/2023 09:42 Report Date: 07/06/2023 10:58 At the request of: PRESTON SMART Procedure: XR chest 2V PROCEDURE: XR chest 2V DATE: 07/06/2023 8:42 AM CDT COMPARISONS: 03/30/2022 CLINICAL INDICATION: 43 years Male Pre Operative Evaluation Z01.818 FINDINGS: The cardiomediastinal silhouette and pulmonary vasculature are within normal limits. There is slight reticular markings of the right mid lung field which is likely some atelectasis and/or variation of normal. Overall, the lungs are clear. There is no evidence of pleural effusion or pneumothorax. XR/XR chest 2V IMPRESSION: Chest radiograph is essentially within normal limits. Electronically authenticated by: MARLEN SAHU Date: 07/06/2023 10:58
--- OUTSIDE RECORDS SUMMARY | 2023-07-06 09:41 | XMS_ITS | CCD ---
Author Organization [facility] Care Team Providers Care Software Support Representative Name Role Phone Unavailable Primary Care Provider Unavailabl e Khorsand Raman, Salvatore Primary Care Provider [phone] Salvatore Camargo Primary Care Provider [phone] Sarahy Camargo MD, [facility] Primary Care Provider GUEVARA, JUAN Referring Unavailable [facility] SALVATORE Primary Care Unavailabl e GUEVARA, [...] Unavailable FAUSTO, LALO Attending Unavailable KHORSAND RAMAN, [facility] Primary Care Unavailabl e FAUSTO, LALO Admitting Unavailable FAUSTO, LALO Attending [facility]available [facility] Primary Care Unavailabl e FAUSTO, LALO Admitting Unavailable FAUSTO, LALO Attending Unavailable [facility], [facility] Primary Care Unavailabl e FAUSTO, LALO Admitting Unavailable FAUSTO, LALO Attending Unavailable [facility] RAMAN, [facility] Primary Care Unavailabl e FAUSTO, LALO Admitting Unavailable FAUSTO, LALO Attending Unavailable [facility] RAMAN, [facility] Primary Care Unavailabl e CHEHADE, SUE E Referring Unavailable [facility] RAMAN, [facility] Primary Care Unavailabl e FAUSTO, LALO Consulting Unavailable MASHALEH, MOHAMMAD I Admitting Unavailable MASHALEH, MOHAMMAD I Attending Unavailable Unavailable Primary Care Provider Unavailabl e Raman CANTRELL, [facility] Primary Care Provider Raman CANTRELL, [facility] Primary Care Provider Raman CANTRELL, [facility] Primary Care Provider MISC, DR DE DIOS Consulting Unavailable REQUEST, DR LUCIE LISTED Primary Care Unavaila ble MISC, DR DE DIOS Attending Unavailable MISC, DR DE DIOS Admitting Unavailable MORILLO ., DR KHOI Bartholomew Consulting Unavailable [facility] Unava ilable MORILLO ., DR KHOI Bartholomew Attending Unavailable MORILLO ., DR KHOI Bartholomew Admitting Unavailable MISC, DR DE DIOS Consulting Unavailable MISC, DR DE DIOS Primary Care Unavailable MORILLO ., DR KHOI Bartholomew Attending Unavailable MORILLO ., DR KHOI Bartholomew Admitting Unavailable MORILLO ., DR KHOI Bartholomew Consulting Unavailable LAKSHMIPATHY ., NARENDRANATH Consulting Neeru vailable [facility] Unava ilable LAKSHMIPATHY ., NARENDRANATH Attending Neeru vailable LAKSHMIPATHY ., NARENDRANATH Admitting Neeru vailable LAKSHMIPATHY ., NARENDRANATH Consulting Neeru vailable [facility] Unava ilable LAKSHMIPATHY ., NARENDRANATH Attending Neeru vailable LAKSHMIPATHY ., NARENDMAGALYATH Admitting Neeru vailable [facility] Unava ilable MISC, DR DE DIOS Consulting [...] Unavailable LAKSHMIPATHY ., NARENDRANATH Consulting Neeru vailable RON JOSUE Consulting Unavailable [...] DE DIOS Attending Unavailable MISC, DR DE DISO Admitting Unavailable MISC, DR DE DIOS Consulting [...] Unavailable HOY ., DR STEINER Consulting Unavailable JBARA, YASER Attending Unavailable JASON, DR DELLA Holland Admitting Unavailabl e [facility] Primary Care Unava ilable BRUNO ., DR KRISTINA Londono Consulting Unavailable DARYL, DONALDO Consulting Unavailable ROMINA ., BAO Consulting Unavailable JBARA, YASER Consulting Unavailable Salvatore Camargo MD K Primary Care Provider Bishop MATOS, Arlene Unavailable Unavailable ERMELINDA, YINA Referring Unavailable RAMAN, SALVATORE K Primary Care Unavailable ERMELINDA, YINA Referring Unavailable RAMAN, SALVATORE K Primary Care Unavailable ERMELINDA, YINA Attending Unavailable RAMAN, SALVATORE K Primary Care Unavailable SABINA BEAN Referring Unavailable ERMELINDA, YINA Referring Unavailable RAMAN, SALVATORE K Primary Care Unavailable ERMELINDA, YINA Referring Unavailable RAMAN, SALVATORE K Primary Care Unavailable YINA GERARDO Referring Unavailable SALVATORE CAMARGO Primary Care Unavailable YINA GERARDO Referring Unavailable SALVATORE CAMARGO Primary Care Unavailable KEV COOK Attending Unavailable EDUAR FRANCE Attending Unavailable KEV COOK Referring Unavailable Allergies Allergy Classification Reported Allergen(s) Allergy Type Date of Onset Reaction(s) Facility Angiotensin 2 Receptor Blockers (ARB) (7 sources) valsartan Drug Allergy 04-24-19 18 [facility] Prochlorperazine (7 sources) Prochlorperazine Drug Allergy 04-24-19 18 [facility] (20 sources) Prochlorperazine; Translations: [PROCHLORPERAZINE] Drug Allergy 02-19-20 14 Mental Status Change [place] (20 sources) valsartan; Translations: [VALSARTAN] Drug Allergy 02-19-20 14 Int[place] (1 source) Lisdexamfetamine Drug Allergy 03-30-20 22 [facility] (1 source) Prochlorperazine Drug Allergy 02-19-20 14 [facility] (1 source) valsartan Drug Allergy 02-19-20 14 [facility] Medications Current Medications Medication Drug [...] 2 TIMES D AILY, First dose on 03/30/20 at 2230 docusate sodium 100 mg oral [...] 8 HOURS, First dose on 05/23/20 at 204 glucagon (rdna) 1 mg injection (2 sources) [...] Per IV Magnesium Replacement Protocol, Starting on [facility] 06/30/21 at 0159 Mg Lab Replacement Action [...] Other, Per IV Magnesium Replacement Protocol, Starting 04/09/20 at 2307 Mg Lab Replacement Action 1.4-1.6 [...] Intravenous, EVERY 8 HOURS, First dose on Sun04/03/20 at 1530 Hold for SBP <100 and [...] requests nicotine replacemnt therapy, Starting 05/23/20 at 202 Apply new patch to nonhairy, clean, dry [...] release capsule 40 mg Start: 07-01-2021 omeprazole ([place] ILOSEC) 40 mg capsule 2 ml ondansetron 2 mg/ml injection (7 sources) Serotonin-3 Receptor Antagonist Start: 04-09-2020 take 4 mg by mouth every six hours as needed for nausea 4 mg, Intravenous, EVERY 6 HOURS PRN, Nausea, Vomiting, Starting 04/09/20 at 2307 Administer if oral route cannot [...] Comment on above: Take 1 tablet by [facility]. calcium gluconate-NaCl 1-0.675 GM/50ML-% 1,000 mg IVPB [...] 40 mg, SubCUTAneous, DAILY, First dose on [facility] 06/30/21 at 0900 Start: 02-07-2021 inject 40 mg by subc utaneous injection [...] DAILY, Fir st dose on 05/23/20 at 2045 Do not crush or break. Comment on [...] 2-in-1 Peripheral Line (Standard) polyethylene glycol 3350 03638 mg powder for oral solution (20 sources) [...] Start: 05-17-2020 take 1 capsule by mo ut three times daily pregabalin (LYRICA) 150 mg [...] on above: Take 1 capsule by mo [facility] daily at bedtime. therapeutic multivitamin-minerals (THERA-M PLUS) [...] on above: TAKE 1 TABLET BY PREET EVERY 6 HOURS NEEDED FOR PAIN for [...] above: Take 1 tablet by preet th once daily. Problems Active Problems Problem Classification Problem Date Documented Da te Episodic/Chronic Abdominal pain (8 sources) Epigastric pain; Translations: [Epigastric pain] Onset: 06-06-2022 Episodic Cardiac dysrhythmias (1 source) Tachycardia, unspecified; Translations: [...] protein-calorie malnutrition (HCC)] Onset: 03-30-2020 04-01-2020 Episodic Osteoarthritis (2 sources) Unilateral primary osteoarthritis, right knee; Translations: [Unilateral primary osteoarthritis, right knee] Onset: 06-06-2023 Chronic Other aftercare (1 source) Other [facility] (current) drug therapy; Translations: [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] Onset: 08-07-2022 Episodic Other [...] source) Dysphagia; Translations: [Dysphagia, unspecified] Episodic Other gastrointestinal disorders (1 source) Bariatric surgery status; Translations: [BARIATRIC SURGERY STATUS] Onset: 08-07-2022 Episodic Other injuries and conditions due to [...] postprocedural pain] Onset: 10-15-2021 10-21-2021 Episodic Other non-traumatic joint disorders (2 sources) Pain in right knee; Translations: [Pain in right knee] Onset: 06-06-2023 Episodic Other nutritional; endocrine; and metabolic disorders [...] [Encounter for screening for other disorder] Episodic Phlebitis; thrombophlebitis and thromboembolism (1 source) [...] OTH PART DIGESTV TRACT] Onset: 08-07-2022 Episodic Residual codes; unclassified (2 sources) Pain; Translations: [Pain] Onset: 07-02-2023 Episodic Skin and subcutaneous tissue infections (4 sources) Cellulitis of abdominal wall; Translations: [CELLULITIS OF ABDOMINAL WALL] Onset: 07-30-2022 Episodic Unclassified (1 source) Patient encounter status; Translations: [Preoperative testing] Unclassified (1 source) NO SHOW Unclassified (1 source) CONTACT W/AND (SUSP) EXPOS COVID-19; Translations: [CONTACT W/AND (SUSP) EXPOS COVID-19] Onset: 04-03-2022 Unclassified (2 sources) New Patient; Translations: [New Patient] Onset: 07-02-2023 Past or Other Problems Problem Classification Problem Date Documented Date Episodic/Chronic Complications of surgical procedures or medical care [...] Translations: [Intestinal obstruction] Onset: 03-29-2020 04-03-2020 Episodic Other liver diseases (16 sources) Enzyme level - finding; Translations: [Transaminasemia] Onset: 05-25-2020 05-25-2020 Episodic Other non-epithelial cancer of skin (6 sources) Squamous cell carcinoma of skin; Translations: [Squamous cell carcinoma of skin of other part of trunk] Onset: 08-07-2022 Episodic Other nutritional; endocrine; and metabolic disorders (16 sources) Body mass index less than 20; Translations: [Body mass index (BMI) 19.9 or less, adult] Onset: 05-26-2020 05-26-2020 Episodic Peritonitis and intestinal abscess (2 sources) Infectious disease of abdomen; Translations: [Peritonitis, unspecified] Onset: 11-08-2022 10-26-2022 Episodic Septicemia (except in labor) (4 sources) Sepsis, unspecified organism; Translations: [SEPSIS UNSPECIFIED ORGANISM] Onset: 11-07-2021 Episodic Results Test Name Value Interpretation Reference Range Facility Follow-Upon 07-02-2023 Follow-Up [id number] Sabina Espinoza 1980 M Date Provider Department Center 07/02/2023 433-BRISAVALENTINAEDUAR MP [facility]TH[facility] Family History Family history unknown: Yes Level of Service:68676 [place] OFFICE/OUTPATIENT ESTABLISHED MOD MDM 30 MIN (GC,57) Reason for Visit and Comments: New Patient [632] Pain [136] Normal [facility] Office Visiton 06-06-2023 Follow-up visit [id number] Sabina Espinoza 1980 M Date Provider Department Center 06/06/2023 490-KEV COOK [facility] Family History Family history unknown: Yes Level of Service:45317 [place] OFFICE/OUTPATIENT NEW SF MDM 15 MINUTES Reason for Visit and Comments: Pain [136] [facility] CNPNon 12-01-2022 CNPN Telephone (HEMCA3) SABINA ESPINOZA ([id number]) 1980 M Date Time Provider Department 12/01/22 YINA GERARDO HEMCA3 During your visit today, [...] Fully Assessed Reason for Visit: Care Coordination [0471] Prescriptions as of 12/01/2022 - iv contrast [...] Encounter Status:Closed by ARLENE CARRILLO [facility]01[facility] (PAPABMN) SABINA ESPINOZA ([id number]) 1980 M Date Time Provider Department 11/30/22 [...] Intolerance Date Reviewed: 11/29/2022 Reviewed by: Radha Clifford, RN - Fully Assessed Reason for Visit: Store Shopper - Other [3602] Prescriptions as of 11/30/2022 [...] [R06.89] 10/15/2021 10/21/2021 DVT (deep venous thrombosis) ([facility]) [I82.409] 10/15/2021 10/21/2021 Severe protein-calorie malnutrition (HCC) [E43] 10/18/2021 Gastrointestinal anastomotic stricture [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] 01/18/2022 Iron deficiency anemia secondary to inadequate *11/15/2022 Encounter Status:Closed by ANAY TEE on 11/30/22 [facility] 11-14-2022 CNPN Telephone (HEMCA3) SABINA ESPINOZA ([id number]) 1980 M Date Time Provider Department 11/14/22 [...] Fully Assessed Reason for Visit: Results [95] Store Shopper - Other [3602] Cmt: Tumor board discussion [...] [R06.89] 10/15/2021 10/21/2021 DVT (deep venous thrombosis) ([facility]) [I82.409] 10/15/2021 10/21/2021 Severe protein-calorie malnutrition (HCC) [E43] 10/18/2021 Gastrointestinal anastomotic stricture [K91.30] 01/18/2022 Encounter Status:Closed by ANAY TEE on 11/30/22 Normal [facility] CBC W Auto Differential pane l (Bld)on 11-08-2022 Basophils (Bld) [#/Vol] 0.06 10*3/uL Normal <0.11 [facility] Comment on above: Order Comment: Speci men Type: BLOOD SPECIMEN Ordering Facility: [facility] Address: [address] [place] [address] Performed By: #### 5 7021-8 #### [facility] CLIA [id number] [address] [place] [address] [place] Basophils/100 WBC (Bld) 0.9 % Normal [facility] Comment on above: Order Comment: Speci men Type: BLOOD SPECIMEN Ordering Facility: [facility] Address: [address] [address] Performed By: #### 5 7021-8 #### [facility] CLIA [id number] [address] [place] [address] [place] Differential cell count method Nom (Bld) Auto Normal [facility] Comment on above: Order Comment: Speci men Type: BLOOD SPECIMEN Ordering Facility: [facility] Address: [address] Performed By: #### 5 7021-8 #### [facility] CLIA [id number] [address] [place] [address] [place] Eosinophils (Bld) [#/Vol] 0.23 10*3/uL Normal <0.46 [facility] Comment on above: Order Comment: Speci men Type: BLOOD SPECIMEN Ordering Facility: [facility] Address: [address] Performed By: #### 5 7021-8 #### [facility] CLIA [id number] [address] [place] [address] [place] Eosinophils/100 WBC (Bld) 3.4 % Normal [facility] Comment on above: Order Comment: Speci men Type: BLOOD SPECIMEN Ordering Facility: [facility] Address: [address] Performed By: #### 5 7021-8 #### [facility] CLIA [id number] [address] [place] [address] [place] Erythrocyte distribution width (RBC) [Ratio] 17.2 % High 11.5-15.0 [facility] Comment on above: Order Comment: Speci men Type: BLOOD SPECIMEN Ordering Facility: [facility] Address: [address] Performed By: #### 5 7021-8 #### [facility] CLIA [id number] [address] [place] [address] [place] Hematocrit (Bld) [Volume fraction] 44.1 % Normal 39.0-51.0 [facility] Comment on above: Order Comment: Speci men Type: BLOOD SPECIMEN Ordering Facility: [facility] Address: [address] Performed By: #### 5 7021-8 #### [facility] CLIA [id number] [address] [place] [address] [place] Hemoglobin (Bld) [Mass/Vol] 12.6 g/dL Low 13.0-17.0 [facility] Comment on above: Order Comment: Speci men Type: BLOOD SPECIMEN Ordering Facility: [facility] Address: [address] [place], [place] [address] Performed By: #### 5 7021-8 #### [facility] CLIA [id number] [address] [place] [address] [place] Immature granulocytes (Bld) [#/Vol] 10*3/uL Normal <0.10 [facility] Comment on above: Order Comment: Speci men Type: BLOOD SPECIMEN Ordering Facility: [facility] Address: [address] [place], [place] [address] Performed By: #### 5 7021-8 #### [facility] CLIA [id number] [address] [place] [address] [place] Immature granulocytes/100 WBC (Bld) 0.1 % Normal [facility] Comment on above: Order Comment: Speci men Type: BLOOD SPECIMEN Ordering Facility: [facility] Address: [address] [place], [place] [address] Performed By: #### 5 7021-8 #### [facility] CLIA [id number] [facility] [place] [address] [place] Lymphocytes (Bld) [#/Vol] 1.73 10*3/uL Normal 1.00-4.00 [facility] Comment on above: Order Comment: Speci men Type: BLOOD SPECIMEN Ordering Facility: [facility] Address: [address] [place] [address] Performed By: #### 5 7021-8 #### [facility] CLIA [id number] [address] [place] [address] [place] Lymphocytes/100 WBC (Bld) 25.4 % Normal [facility] Comment on above: Order Comment: Speci men Type: BLOOD SPECIMEN Ordering Facility: [facility] Address: [address] Performed By: #### 5 7021-8 #### [facility] CLIA [id number] [address] [place] MCH (RBC) [Entitic mass] 21.5 pg Low 26.0-34.0 [facility] Comment on above: Order Comment: Speci men Type: BLOOD SPECIMEN Ordering Facility: [facility] Address: [address] Performed By: #### 5 7021-8 #### [facility] CLIA [id number] [address] [place] [address] [place] MCHC (RBC) [Mass/Vol] 28.6 g/dL Low 30.5-36.0 [facility] Comment on above: Order Comment: Speci men Type: BLOOD SPECIMEN Ordering Facility: [facility] Address: [address] Performed By: #### 5 7021-8 #### [facility] CLIA [id number] [address] [place] [address] [place] MCV (RBC) [Entitic vol] 75.3 fL Low 80.0-100.0 [facility] Comment on above: Order Comment: Speci men Type: BLOOD SPECIMEN Ordering Facility: [facility] Address: [address] Performed By: #### 5 7021-8 #### [facility] CLIA [id number] [address] [place] [address] [place] Monocytes (Bld) [#/Vol] 0.71 10*3/uL Normal <0.87 [facility] Comment on above: Order Comment: Speci men Type: BLOOD SPECIMEN Ordering Facility: [facility] Address: [address] Performed By: #### 5 7021-8 #### [facility] CLIA [id number] [address] [place] [address] [place] Monocytes/100 WBC (Bld) 10.4 % Normal [facility] Comment on above: Order Comment: Speci men Type: BLOOD SPECIMEN Ordering Facility: [facility] Address: [address] [place] [address] Performed By: #### 5 7021-8 #### [facility] CLIA [id number] [address] [place] [address] [place] Neutrophils (Bld) [#/Vol] 4.08 10*3/uL Normal 1.45-7.50 [facility] Comment on above: Order Comment: Speci men Type: BLOOD SPECIMEN Ordering Facility: [facility] Address: [address] Performed By: #### 5 7021-8 #### [facility] CLIA [id number] [address] [place] [address] [place] Neutrophils/100 WBC (Bld) 59.8 % Normal [facility] Comment on above: Order Comment: Speci men Type: BLOOD SPECIMEN Ordering Facility: [facility] Address: [address] [place] [address] Performed By: #### 5 7021-8 #### [facility] CLIA [id number] [address] [place] [address] [place] Nucleated RBC (Bld) [#/Vol] 10*3/uL Normal <0.01 [facility] Comment on above: Order Comment: Speci men Type: BLOOD SPECIMEN Ordering Facility: [facility] Address: [address] [place] [address] Performed By: #### 5 7021-8 #### [facility] CLIA [id number] [address] [place] [address] [place] Nucleated RBC/100 WBC (Bld) [Ratio] 0.0 /100 WBC Normal [facility] Comment on above: Order Comment: Speci men Type: BLOOD SPECIMEN Ordering Facility: [facility] Address: [address] [place] [address] Performed By: #### 5 7021-8 #### [facility] CLIA [id number] [address] [place] [address] [place] Platelet mean volume (Bld) [Entitic vol] 10.5 fL Normal 9.0-12.7 [facility] Comment on above: Order Comment: Speci men Type: BLOOD SPECIMEN Ordering Facility: [facility] Address: [address] Performed By: #### 5 7021-8 #### [facility] CLIA [id number] [address] [place] [address] [place] Platelets (Bld) [#/Vol] 394 10*3/uL Normal 150-400 [facility] Comment on above: Order Comment: Speci men Type: BLOOD SPECIMEN Ordering Facility: [facility] Address: [address] [place] [address] Performed By: #### 5 7021-8 #### [facility] CLIA [id number] [address] [id number] [place] RBC (Bld) [#/Vol] 5.86 10*6/uL Normal 4.20-6.00 [facility] Comment on above: Order Comment: Speci men Type: BLOOD SPECIMEN Ordering Facility: [facility] Address: [address] [place] [address] Performed By: #### 5 7021-8 #### [facility] CLIA [id number] [address] [address] [place] WBC (Bld) [#/Vol] 6.82 10*3/uL Normal 3.70-11.00 [facility] Comment on above: Order Comment: Speci men Type: BLOOD SPECIMEN Ordering Facility: [facility] Address: [address] [place], [place] [address] Performed By: #### 5 7021-8 #### [facility] CLIA [id number] [address] [facility] [id number] [place], [place] [address] [place] CT ABD/PEL W IVCONon 11-08- 023 CT ABD/PEL W IVCON * * *Final Report* * * DATE OF EXAM: Nov 08 2022 8:52AM LN 0530 - CT ABD/PEL W IVCON / [...] chest CT performed will be reported separately. [employer] Sales Consultant (topogram) images: No additional findings. IMPRESSION: Stable [...] any questions regarding this interpretation, please call [phone]. If you are unable to reach us at the number above, please feel free to contact [facility] at [phone]. [id number] CN Normal [facility] CT CHEST W IVCONon 3 CT CHEST W IVCON * * *Final Report* * * DATE OF EXAM: Nov 08 2022 8:52AM [facility] 0539 - CT CHEST W IVCON / [...] abdomen: Upper abdominal findings within dedicated report. [employer] Sales Consultant (topogram) images: No additional findings. IMPRESSION: No [...] any questions regarding this interpretation, please call [phone]. If you are unable to reach us at the number above, please feel free to contact [facility] at [phone]. [id number] CN Normal [facility] Comprehensive metabolic 2000 panelon 11-08-2022 Albumin [Mass/Vol] 4.4 g/dL Normal 3.9-4.9 [facility] Comment on above: Order Comment: Lit castano Type: BLOOD SPECIMEN Ordering Facility: [facility] Address: [address] [place] [address] Performed By: #### 2 4323-8, 30765-8, 2276-4, 2284-8 #### [facility] CLIA [id number] [address] [place] [address] [place] ALP [Catalytic activity/Vol] 140 U/L High 38-113 [facility] Comment on above: Order Comment: Lit castano Type: BLOOD SPECIMEN Ordering Facility: [facility] Address: [address] [place], [place] [address] Performed By: #### 2 4323-8, 44162-2, 6-4, 2284-8 #### [facility] CLIA [id number] [address] [place] [address] [place] ALT [Catalytic activity/Vol] 11 U/L Normal 10-54 [facility] Comment on above: Order Comment: Speci men Type: BLOOD SPECIMEN Ordering Facility: [facility] Address: [address] [place], [place] [address] Performed By: #### 2 4323-8, 19907-6, 6-4, 2284-8 #### [facility] CLIA [id number] [address] [place] [address] [place] Anion gap [Moles/Vol] 10 mmol/L Normal 9-18 [facility] Comment on above: Order Comment: Speci men Type: BLOOD SPECIMEN Ordering Facility: [facility] Address: [address] [place] [address] Performed By: #### 2 4323-8, 05253-9, 6-4, 2283-8 #### [facility] CLIA [id number] [address] [place] [address] [place] AST [Catalytic activity/Vol] 17 U/L Normal 14-40 [facility] Comment on above: Order Comment: Speci men Type: BLOOD SPECIMEN Ordering Facility: [facility] Address: [address] [place] [address] Performed By: #### 2 4323-8, 68721-9, 6-4, 2283-8 #### [facility] CLIA [id number] [address] [place] [address] [place] Bilirubin [Mass/Vol] 0.4 mg/dL Normal 0.2-1.3 [facility] Comment on above: Order Comment: Speci men Type: BLOOD SPECIMEN Ordering Facility: [facility] Address: [address] [place], [place] [address] Performed By: #### 2 4323-8, 10541-8, 2275-4, 2283-8 #### [facility] CLIA [id number] [address] [place] [address] [place] Calcium [Mass/Vol] 9.5 mg/dL Normal 8.5-10.2 [facility] Comment on above: Order Comment: Speci men Type: BLOOD SPECIMEN Ordering Facility: [facility] Address: [address] Performed By: #### 2 4323-8, 24033-3, 2275-4, 8 #### [facility] CLIA [id number] [address] [place] [address] [place] Chloride [Moles/Vol] 103 mmol/L Normal 97-105 [facility] Comment on above: Order Comment: Speci men Type: BLOOD SPECIMEN Ordering Facility: [facility] Address: [address] [place], [place] [address] Performed By: #### 2 4323-8, 14932-9, 2275-4, 8 #### [facility] CLIA [id number] [address] [place] [address] [place] CO2 [Moles/Vol] 25 mmol/L Normal 22-30 [facility] Comment on above: Order Comment: Speci men Type: BLOOD SPECIMEN Ordering Facility: [facility] Address: [address] Performed By: #### 2 4323-8, 59213-9, 2275-4, 2283-8 #### [facility] CLIA [id number] [address] [place] [address] [place] Creatinine [Mass/Vol] 0.64 mg/dL Low 0.73-1.22 [facility] Comment on above: Order Comment: Speci men Type: BLOOD SPECIMEN Ordering Facility: [facility] Address: [address] [place] [address], [place] [address] Performed By: #### 2 4323-8, 87724-9, 6-4, 2284-8 #### [facility] CLIA [id number] [address] [place] [address] [place] ESTIMATED GLOMERULAR FILTRATION RATE 120 mL/min/1.73m??? Normal >=60 [facility] Comment on above: Order Comment: Lit castano Type: BLOOD SPECIMEN Ordering Facility: [facility] Address: [address] [id number] Result Comment: Philly mated Glomerular Filtration Rate [...] actual GFR. Performed By: #### 2 4323-8, 63598-3, 6-4, 228-8 #### [facility] CLIA [id number] [address] [place] [address] [place] Glucose [Mass/Vol] 83 mg/dL Normal 74-99 [facility] Comment on above: Order Comment: Lit castano Type: BLOOD SPECIMEN Ordering Facility: [facility] Address: [address] [id number] Result Comment: The [place] Diabetes Association (ADA) provides guidance for cutoff [...] Standards of Medical Care in Diabetes 2016, [place] Diabetes Association. Diabetes Care. 2016.39(Suppl 1). Performed By: #### 2 4323-8, 82226-0, 2275-4, 2283-8 #### [facility] CLIA [id number] [address] [place] [address] [place] Potassium [Moles/Vol] 4.5 mmol/L Normal 3.7-5.1 [facility] Comment on above: Order Comment: Speci men Type: BLOOD SPECIMEN Ordering Facility: [facility] Address: [address] [place], [place] [address] Performed By: #### 2 4323-8, 30681-1, 2275-4, 8 #### [facility] CLIA [id number] [address] [place] [address] [place] Protein [Mass/Vol] 7.1 g/dL Normal 6.3-8.0 [facility] Comment on above: Order Comment: Speci men Type: BLOOD SPECIMEN Ordering Facility: [facility] Address: [address] [place], [place] [address] Performed By: #### 2 4323-8, 90338-0, 2275-4, 8 #### [facility] CLIA [id number] [address] [place] [address] [place] Sodium [Moles/Vol] 138 mmol/L Normal 136-144 [facility] Comment on above: Order Comment: Speci men Type: BLOOD SPECIMEN Ordering Facility: [facility] Address: [address] [place] [address] Performed By: #### 2 4323-8, 46124-6, 2275-4, 8 #### [facility] CLIA [id number] [address] [place] [address] [place] Urea nitrogen [Mass/Vol] 9 mg/dL Normal 9-24 [facility] Comment on above: Order Comment: Speci men Type: BLOOD SPECIMEN Ordering Facility: [facility] Address: [address] [place], [place] [phone] Performed By: #### 2 4323-8, 96823-1, 2275-4, 8 #### [facility] CLIA [id number] [address] [place] [address] [place] Ferritin [facility] 2022 Ferritin [Mass/Vol] 6.3 ng/mL Low 30.3-565.7 [facility] Comment on above: Order Comment: Speci men Type: BLOOD SPECIMEN Ordering Facility: [facility] Address: [address] Performed By: #### 2 4323-8, 54782-2, 4, 8 #### [facility] CLIA [id number] [address] [place] [address] [place] Folate [facility] 11-09-19 Folate [Mass/Vol] 15.9 ng/mL Normal >4.7 [facility] Comment on above: Order Comment: Speci men Type: BLOOD SPECIMEN Ordering Facility: [facility] Address: [address] [address] Performed By: #### 2 4323-8, 43754-4, 4, 8 #### [facility] CLIA [id number] [address] [place] [address] [place] Iron and Iron binding capaci ty panelon 11-08-2022 Iron [Mass/Vol] 20 ug/dL Low 41-186 [facility] Comment on above: Order Comment: Speci men Type: BLOOD SPECIMEN Ordering Facility: [facility] Address: [address] Performed By: #### 2 4323-8, 49157-5, 2275-4, 8 #### [facility] CLIA [id number] [address] [place] [address] [place] Iron binding capacity [Mass/Vol] 482 ug/dL High 232-386 [facility] Comment on above: Order Comment: Speci men Type: BLOOD SPECIMEN Ordering Facility: [facility] Address: [address] [place], [place] [phone] Performed By: #### 2 4323-8, 96613-6, 6-4, 2283-8 #### [facility] CLIA [id number] [address] [place] [address] Iron/TIBC [Molar ratio] 4.1 % Low 15.0-57.0 [facility] Comment on above: Order Comment: Speci men Type: BLOOD SPECIMEN Ordering Facility: [facility] Address: [address] [phone] Performed By: #### 2 4323-8, 98898-0, 6-4, 2283-8 #### [facility] CLIA [id number] [address] [place] [address] OF [facility] CNOVSPon 10-25-2022 CNOVSP Visit (SP) Office (HEMCA3) SABINA ESPINOZA ([id number]) 1980 M Date Time Provider Department 10/25/22 [...] decrease Does patient want to see a Floor Layer? No (yes to any of above refer [...] Yina Gerardo MD 10/26/2022 5:[address] [facility] Solid Tumor Oncology Initial Consultation Note Patient name: Sabina Espinoza Clinic number: [id number] Primary Care Physician: Salvatore Camargo MD Date [...] - 07/27/2022 abscess/mass removal: Pt presented to [facility] for evaluation of symptomatic abscess/mass located pily-umbilical abdomen. Mass was excised by Dr. Her ([facility]) and biopsy confirmed mass was benign. (No outside records of this). - 07/30/2022 Hospital Admission: He gradually developed pain, redness, and drainage of the area again and was admitted to [facility] -08/01/2022 for abdominal wall cellulitis secondary to wound dehiscence infection. He was initially tx with empiric vancomycin and then doxycycline at discharge. Wound was 3.7 x 2.4 x 0.5 cm in size, and debrided with dressing placed. He performed dressing changes twice daily, and also had [facility] perform weekly dressing changes. - [...] Adhesions Re (more content not included)... Normal [facility] CNPMarry 10-13-2022 CNPN Telephone (meinKauf) SABINA ESPINOZA ([id number]) 1980 M Date Time Provider Department 10/13/22 [...] [C44.90] Order(s):CONSULT TO ONCOLOGY [9023] Order #: [id number]: 1 FUTURE Prescriptions as of 10/13/2022 - [...] [R06.89] 10/15/2021 10/21/2021 DVT (deep venous thrombosis) ([facility]) [I82.409] 10/15/2021 10/21/2021 Severe protein-calorie malnutrition (HCC) [E43] 10/18/2021 Gastrointestinal anastomotic stricture [K91.30] 01/18/2022 Encounter Status:Closed by SABINA BEAN on 10/13/22 [facility] CNPNon 10-12-2022 CNPN Telephone (GENSMN) SABINA ESPINOZA ([id number]) 1980 M Date Time Provider Department 10/12/22 ALYSA ASENCIO During your visit today, we recorded the following information about you: Ramon Mcneil 10/12/2022 4:01 PM Addendum Spoke to patient, advised that Myles contacted oncology and their department indicated to him that they would be reaching out to the patient today. David Broderick RN October 13, 2022 10:55 AM Patient called stating he hasn't heard back from anyone regarding an order to onocology.. Mr. Espinoza is requesting a return call [phone] Allergies As of Date: 10/12/2022 Noted Allergy Reaction PROCHLORPERAZINE 02/18/2014 1 - Mental Status Change VALSARTAN 02/18/2014 5 - Intolerance Date Reviewed: 01/20/2022 Reviewed by: Ann Marie Curry RN - Fully Assessed Reason for Visit: Orders [681] Patient Update [3104] Prescriptions as of 10/13/2022 - therapeutic multivitamin-mineral [...] [R06.89] 10/15/2021 10/21/2021 DVT (deep venous thrombosis) ([facility]) [I82.409] 10/15/2021 10/21/2021 Severe protein-calorie malnutrition ([facility]) [E43] 10/18/2021 Gastrointestinal anastomotic stricture [K91.30] 01/18/2022 Encounter Status:Closed by DAVID BRODERICK on 10/13/22 Normal [facility] CULTURE WOUNDon 08-02-2022 CULTURE WOUND Culture Observations: [...] S F Vancomycin 1 S F Normal [facility] Comment on above: Performed By: #### W OUNDCX ####[facility] [id number] [id number]. Simona Maravilla CBC AUTO DIFFon 07-30-2022 BASO # 0.1 103/ul Normal 0.0-0.1 [facility] Comment on above: Performed By: #### C BC #### [facility] [address] [place] [address] Dr. Simona Maravilla Basophils/100 WBC (Bld) 0.5 % Normal 0.2-2.0 [facility] Comment on above: Performed By: #### C BC #### [facility] [address] [place] [address] Dr. Simona Maravilla EO # 0.2 103/ul Normal 0.0-0.7 [facility] Comment on above: Performed By: #### C BC #### [facility] [address] [place] [address] Dr. Simona Maravilla Eosinophils/100 WBC (Bld) 1.9 % Normal 0.9-7.0 [facility] Comment on above: Performed By: #### C BC #### [facility] [address] [place] [address] Dr. Simona Maravilla Erythrocyte distribution width (RBC) [Ratio] 17.1 % Critically high 11.0-15.0 [facility] Comment on above: Performed By: #### C BC #### [facility] [address] [place] [address] Dr. Simona Maravilla Hematocrit (Bld) [Volume fraction] 37.3 % Critically low 42.0-54.0 [facility] Comment on above: Performed By: #### C BC #### [facility] [address] [place] [address] Dr. Simona Maravilla Hemoglobin (Bld) [Mass/Vol] 11.0 g/dL Critically low 14.0-18.0 [facility] Comment on above: Performed By: #### C BC #### [facility] [address] [place] [address] Dr. Simona Maravilla IG # 0.04 10e3/ul Critically high 0.00-0.03 [facility] Comment on above: Performed By: #### C BC #### [facility] [address] [address] [address] Simona Maravilla IG % 0.4 % Normal 0.0-0.5 [facility] Comment on above: Performed By: #### C BC #### [facility] [address] [place] [address] Dr. Simona Maravilla LYMPH # 0.9 103/ul Critically low 1.2-3.8 [facility] Comment on above: Performed By: #### C BC #### [facility] [address] [place] [address] Dr. Simona Maravilla Lymphocytes/100 WBC (Bld) 8.3 % Critically low 20.5-60.0 [facility] Comment on above: Performed By: #### C BC #### [facility] [address] [place] [address] Dr. Simona Maravilla MANUAL DIFF REQ NO Normal [facility] Comment on above: Performed By: #### C BC #### [facility] [address] [place] [address] Dr. Simona Maravilla MCH (RBC) [Entitic mass] 22.2 pg Critically low 25.9-34.0 [facility] Comment on above: Performed By: #### C BC #### [facility] [address] [place] [address] Dr. Simona Maravilla MCHC (RBC) [Mass/Vol] 29.5 g/dL Critically low 29.9-35.2 [facility] Comment on above: Performed By: #### C BC #### [facility] [address] [place] [address] Dr. Simona Maravilla MCV (RBC) [Entitic vol] 75.2 fL Critically low 80.0-94.0 [facility] Comment on above: Performed By: #### C BC #### [facility] [address] [place] [address] Dr. Simona Maravilla MONO # 1.2 103/ul Critically high 0.3-0.8 [facility] Comment on above: Performed By: #### C BC #### [facility] [address] [place] [address] Dr. Simona Maravilla Monocytes/100 WBC (Bld) 10.8 % Normal 1.7-12.0 [facility] Comment on above: Performed By: #### C BC #### [facility] [address] [place] [address] Dr. Simona Maravilla NEUT # 8.8 103/ul Critically high 1.4-6.5 [facility] Comment on above: Performed By: #### C BC #### [facility] [address] [place] [address] Dr. Simona Maravilla Neutrophils/100 WBC (Bld) 78.1 % Critically high 43.0-75.0 [facility] Comment on above: Performed By: #### C BC #### [facility] [address] [place] [address] Dr. Simona Maravilla Platelet mean volume (Bld) [Entitic vol] 10.7 fL Normal 9.5-13.5 [facility] Comment on above: Performed By: #### C BC #### [facility] [address] [place] [address] Dr. Simona Maravilla PLT 210 103/ul Normal 150-450 [facility] Comment on above: Performed By: #### C BC #### [facility] [address] [place] [address] Dr. Simona Maravilla RBC 4.96 106/ul Normal 4.70-6.10 [facility] Comment on above: Performed By: #### C BC #### [facility] [address] [place] [address] Dr. Simona Maravilla WBC 11.3 103/ul Critically high 4.0-11.0 [facility] Comment on above: Performed By: #### C BC #### [facility] [address] [address] [address] Simona Maravilla EO # 0.3 103/ul Normal 0.0-0.7 [facility] Comment on above: Performed By: #### C BC #### [facility] [address] [address] [address] Simona Maravilla Eosinophils/100 WBC (Bld) 2.3 % Normal 0.9-7.0 [facility] Comment on above: Performed By: #### C BC #### [facility] [address] [place] [address] Dr. Simona Maravilla Hematocrit (Bld) [Volume fraction] 37.1 % Critically low 42.0-54.0 [facility] Comment on above: Performed By: #### C BC #### [facility] [address] [place] [address] Dr. Simona Maravilla Hemoglobin (Bld) [Mass/Vol] 11.1 g/dL Critically low 14.0-18.0 [facility] Comment on above: Performed By: #### C BC #### [facility] [address] [place] [address] Dr. Simona Maravilla LYMPH # 1.2 103/ul Normal 1.2-3.8 [facility] Comment on above: Performed By: #### C BC #### [facility] [address] [place] [address] Dr. Simona Maravilla Lymphocytes/100 WBC (Bld) 11.1 % Critically low 20.5-60.0 [facility] Comment on above: Performed By: #### C BC #### [facility] [address] [place] [address] Dr. Simona Maravilla MCH (RBC) [Entitic mass] 22.5 pg Critically low 25.9-34.0 [facility] Comment on above: Performed By: #### C BC #### [facility] [address] [place] [address] Dr. Simona Maravilla MCHC (RBC) [Mass/Vol] 29.9 g/dL Normal 29.9-35.2 [facility] Comment on above: Performed By: #### C BC #### [facility] [address] [place] [address] Dr. Simona Maravilla MCV (RBC) [Entitic vol] 75.3 fL Critically low 80.0-94.0 [facility] Comment on above: Performed By: #### C BC #### [facility] [address] [place] [address] Dr. Simona Maravilla Monocytes/100 WBC (Bld) 10.9 % Normal 1.7-12.0 [facility] Comment on above: Performed By: #### C BC #### [facility] [address] [place] [address] Dr. Simona Maravilla NEUT # 8.3 103/ul Critically high 1.4-6.5 [facility] Comment on above: Performed By: #### C BC #### [facility] [address] [place] [address] Dr. Simona Maravilla Neutrophils/100 WBC (Bld) 74.8 % Normal 43.0-75.0 [facility] Comment on above: Performed By: #### C BC #### [facility] [address] [place] [address] Dr. Simona Maravilla Platelet mean volume (Bld) [Entitic vol] 10.3 fL Normal 9.5-13.5 [facility] Comment on above: Performed By: #### C BC #### [facility] [address] [place] [address] Dr. Simona Maravilla PLT 272 103/ul Normal 150-450 [facility] Comment on above: Performed By: #### C BC #### [facility] [address] [place] [address] Dr. Simona Maravilla RBC 4.93 106/ul Normal 4.70-6.10 [facility] Comment on above: Performed By: #### C BC #### [facility] [address] [place] [address] Dr. Simona Maravilla WBC 11.0 103/ul Normal 4.0-11.0 [facility] Comment on above: Performed By: #### C BC #### [facility] [address] [place] [address] Dr. Simona Maravilla ER URINE PROFILEon 3 Bilirubin Ql (U) Negative Normal NEGATIVE [facility] Comment on above: Performed By: #### C BC #### [facility] [address] [place] [address] Dr. Simona Maravilla Clarity (U) CLEAR Normal CLEAR [facility] Comment on above: Performed By: #### C BC #### [facility] [address] [place] [address] Dr. Simona Maravilla Color (U) YELLOW Normal YELLOW [facility] Comment on above: Performed By: #### C BC #### [facility] [address] [place] [address] Dr. Simona BULLOCK A micrscopic examination will be performed if indicated. Normal [facility] Comment on above: Performed By: #### C BC #### [facility] [address] [place] [address] Dr. Simona Maravilla Glucose Ql (U) Negative Normal NEGATIVE [facility] Comment on above: Performed By: #### C BC #### [facility] [address] [place] [address] Dr. Simona Maravilla Hemoglobin Ql (U) Negative Normal NEGATIVE [facility] Comment on above: Performed By: #### C BC #### [facility] [address] [place] [address] Dr. Simona Maravilla Ketones Ql (U) Negative Normal NEGATIVE [facility] Comment on above: Performed By: #### C BC #### [facility] [address] [place] [address] Dr. Simona Maravilla LEUKOCYTES Negative Normal NEGATIVE [facility] Comment on above: Performed By: #### C BC #### [facility] [address] [place] [address] Dr. Simona Maravilla Nitrite Ql (U) Negative Normal NEGATIVE [facility] Comment on above: Performed By: #### C BC #### [facility] [address] [place] [address] Dr. Simona Maravilla pH (U) 5.5 [pH] Normal 5-9 [facility] Comment on above: Performed By: #### C BC #### [facility] [address] [place] [address] Dr. Simona Maravilla SPEC GRAVITY 1.010 Normal 1.005-<=1.025 [facility] Comment on above: Performed By: #### C BC #### [facility] [address] [place] [address] Dr. Simona Maravilla UA PROTEIN Negative Normal NEGATIVE/ TRACE [facility] Comment on above: Performed By: #### C BC #### [facility] [address] [place] [address] Dr. Simona Maravilla UR MICRO IND NOT INDICATED Normal [facility] Comment on above: Performed By: #### C BC #### [facility] [address] [place] [address] Dr. Simona Maravilla Urobilinogen Qn (U) 4 {Daria'U}/dL Abnormal 0.2 - 1.0 [facility] Comment on above: Performed By: #### C BC #### [facility] [address] [place] [address] Dr. Simona Maravilla IRON AND TIBCon 07-30-2022 % SATURATION 9.7 % Normal [facility] Comment on above: Performed By: #### C RP, CMP #### [facility] [address] [place] [address] Dr. Simona Maravilla Iron [Mass/Vol] 34.0 ug/dL Critically low 65.0-175.0 [facility] Comment on above: Performed By: #### C RP, CMP #### [facility] [address] [place] [address] Dr. Simona Maravilla TIBC DIRECT 351.0 ug/dL Normal 250.0-450.0 [facility] Comment on above: Performed By: #### C RP, CMP #### [facility] [address] [place] [address] Dr. Simona Maravilla LACTATE/LACTIC ACIDon 04-16- 2023 Lactate [Moles/Vol] 0.8 mmol/L Normal 0.4-2.0 [facility] Comment on above: Performed By: #### C BC #### [facility] [address] [place] [address] Dr. Simona Maravilla PROF 14(COMP METB)on 023 Albumin [Mass/Vol] 3.1 g/dL Critically low 3.4-5.0 Th [facility] Comment on above: Performed By: #### C RP, CMP #### [facility] [address] [place] [address] Dr. Simona Maravilla Albumin/Globulin [Mass ratio] 0.9 {ratio} Normal [facility] Comment on above: Performed By: #### C RP, CMP #### [facility] [address] [place] [address] Dr. Simona Maravilla ALP [Catalytic activity/Vol] 125 U/L Critically high 46-116 [facility] Comment on above: Performed By: #### C RP, CMP #### [facility] [address] [place] [address] Dr. Simona Maravilla ALT [Catalytic activity/Vol] 37 U/L Normal 16-63 [facility] Comment on above: Performed By: #### C RP, CMP #### [facility] [address] [place] [address] Dr. Simona Maravilla Anion gap [Moles/Vol] 8.7 mmol/L Normal [facility] Comment on above: Performed By: #### C RP, CMP #### [facility] [address] [place] [address] Dr. Simona Maravilla AST [Catalytic activity/Vol] 33 U/L Normal 15-37 [facility] Comment on above: Performed By: #### C RP, CMP #### [facility] [address] [place] [address] Dr. Simona Maravilla Bilirubin [Mass/Vol] 0.7 mg/dL Normal 0.2-1.0 [facility] Comment on above: Performed By: #### C RP, CMP #### [facility] [address] [place] [address] Dr. Simona Maravilla Calcium [Mass/Vol] 8.1 mg/dL Critically low 8.5-10.1 Th [facility] Comment on above: Performed By: #### C RP, CMP #### [facility] [address] [address] [address] Simona Maravilla Chloride [Moles/Vol] 106 mmol/L Normal 98-107 [facility] Comment on above: Performed By: #### C RP, CMP #### [facility] [address] [address] [address] Simona Maravilla CO2 [Moles/Vol] 27.2 mmol/L Normal 21.0-32.0 [facility] Comment on above: Performed By: #### C RP, CMP #### [facility] [address] [place] [address] Dr. Simona Maravilla Creatinine [Mass/Vol] 0.77 mg/dL Normal 0.70-1.30 [facility] Comment on above: Performed By: #### C RP, CMP #### [facility] [address] [place] [address] Dr. Simona Maravilla Globulin (S) [Mass/Vol] 3.5 g/dL Normal [facility] Comment on above: Performed By: #### C RP, CMP #### [facility] [address] [place] [address] Dr. Simona Maravilla Glucose [Mass/Vol] 85 mg/dL Normal 74-106 [facility] [place] [facility] Comment on above: Performed By: #### C RP, CMP #### [facility] [address] [place] [address] Dr. Simona Maravilla Potassium [Moles/Vol] 3.9 mmol/L Normal 3.5-5.1 [facility] Comment on above: Performed By: #### C RP, CMP #### [facility] [address] [place] [address] Dr. Simona Maravilla Protein [Mass/Vol] 6.6 g/dL Normal 6.4-8.2 [facility] Comment on above: Performed By: #### C RP, CMP #### [facility] [address] [address] [address] Simona Maravilla Sodium [Moles/Vol] 138 mmol/L Normal 136-145 [facility] Comment on above: Performed By: #### C RP, CMP #### [facility] [address] [place] [address] Dr. Simona Maravilla Urea nitrogen/Creatinine [Mass ratio] 10.4 mg/mg Normal [facility] Comment on above: Performed By: #### C RP, CMP #### [facility] [address] [place] [address] Dr. Simona Maravilla PROF CHEM 8 (BAS METB)on Anion gap [Moles/Vol] 8.4 mmol/L Normal [facility] Comment on above: Performed By: #### C RP, CMP #### [facility] [address] [place] [address] Dr. Simona Maravilla Calcium [Mass/Vol] 8.3 mg/dL Critically low 8.5-10.1 Th [facility] Comment on above: Performed By: #### C RP, CMP #### [facility] [address] [place] [address] Dr. Simona Maravilal Chloride [Moles/Vol] 105 mmol/L Normal 98-107 [facility] Comment on above: Performed By: #### C RP, CMP #### [facility] [address] [place] [address] Dr. Simona Maravilla CO2 [Moles/Vol] 26.6 mmol/L Normal 21.0-32.0 [facility] Comment on above: Performed By: #### C RP, CMP #### [facility] [address] [place] [address] Dr. Simona Maravilla Creatinine [Mass/Vol] 0.74 mg/dL Normal 0.70-1.30 [facility] Comment on above: Performed By: #### C RP, CMP #### [facility] [address] [place] [address] Dr. Simona Maravilla EGFR-AF SAUDI ARABIAN >60 Normal >=60 [facility] Comment on above: Performed By: #### C RP, CMP #### [facility] [address] [address] [address] Simona Maravilla EGFR-NON AF SAUDI ARABIAN >60 Normal >=60 [facility] Comment on above: Performed By: #### C RP, CMP #### [facility] [address] [address] [address] Simona Maravilla Glucose [Mass/Vol] 87 mg/dL Normal 74-106 [facility] Comment on above: Performed By: #### C RP, CMP #### [facility] [address] [place] [address] Dr. Simona Maravilla Potassium [Moles/Vol] 4.0 mmol/L Normal 3.5-5.1 [facility] Comment on above: Performed By: #### C RP, CMP #### [facility] [address] [place] [address] Dr. Simona Maravilla Sodium [Moles/Vol] 136 mmol/L Normal 136-145 [facility] [place] [facility] Comment on above: Performed By: #### C RP, CMP #### [facility] [address] [place] [address] Dr. Simona Maravilla Urea nitrogen [Mass/Vol] 8.0 mg/dL Normal 7.0-18.0 [facility] Comment on above: Performed By: #### C RP, CMP #### [facility] [address] [place] [address] Dr. Simona Maravilla Urea nitrogen/Creatinine [Mass ratio] 10.8 mg/mg Normal [facility] Comment on above: Performed By: #### C RP, CMP #### [facility] [address] [place] [address] Dr. Simona Maravilla TSHon 07-30-2022 TSH 0.795 uIU/mL Normal 0.358-3.740 [facility] Comment on above: Performed By: #### C RP, CMP #### [facility] [address] [place] [address] Dr. Simona Maravilla CBC AUTO DIFFon 07-29-2022 BASO # 0.1 103/ul Normal 0.0-0.1 [facility] Comment on above: Performed By: #### C BC ####[facility] [address] [id number]. Simona Maravilla Basophils/100 WBC (Bld) 0.4 % Normal 0.2-2.0 [facility] Comment on above: Performed By: #### C BC ####[facility] [address] [place], [place] [address]Dr. Simona Maravilla EO # 0.1 103/ul Normal 0.0-0.7 [facility] Comment on above: Performed By: #### C BC ####[facility] [address] [id number]. Simona Maravilla Eosinophils/100 WBC (Bld) 0.7 % Critically low 0.9-7.0 [facility] Comment on above: Performed By: #### C BC ####[facility] [address] [place], [place] [address]Dr. Simona Maravilla Erythrocyte distribution width (RBC) [Ratio] 17.9 % Critically high 11.0-15.0 [facility] Comment on above: Performed By: #### C BC ####[facility] [address] [place], [place] [address]Dr. Simona Maravilla Hematocrit (Bld) [Volume fraction] 43.1 % Normal 42.0-54.0 [facility] Comment on above: Performed By: #### C BC ####[facility] [address] [place], [place] [address]Dr. Simona Maravilla Hemoglobin (Bld) [Mass/Vol] 13.2 g/dL Critically low 14.0-18.0 [facility] Comment on above: Performed By: #### C BC ####[facility] [address] [place], [place] [address]Dr. Simona Maravilla IG # 0.05 10e3/ul Critically high 0.00-0.03 [facility] Comment on above: Performed By: #### C BC ####[facility] [address] [place], [place] [address]Dr. Simona Maravilla IG % 0.3 % Normal 0.0-0.5 [facility] Comment on above: Performed By: #### C BC ####[facility] [address] [id number] Maravilla LYMPH # 1.6 103/ul Normal 1.2-3.8 [facility] Comment on above: Performed By: #### C BC ####[facility] [address] [id number] Maravilla Lymphocytes/100 WBC (Bld) 10.4 % Critically low 20.5-60.0 [facility] Comment on above: Performed By: #### C BC ####[facility] [address] [id number] Maravilla MANUAL DIFF REQ NO Normal [facility] Comment on above: Performed By: #### C BC ####[facility] [address] [id number] Maravilla MCH (RBC) [Entitic mass] 22.3 pg Critically low 25.9-34.0 [facility] Comment on above: Performed By: #### C BC ####[facility] [address] [id number] Maravilla MCHC (RBC) [Mass/Vol] 30.6 g/dL Normal 29.9-35.2 [facility] Comment on above: Performed By: #### C BC ####[facility] [address] [id number] Maravilla MCV (RBC) [Entitic vol] 72.8 fL Critically low 80.0-94.0 [facility] Comment on above: Performed By: #### C BC ####[facility] [address] [id number] Maravilla MONO # 1.5 103/ul Critically high 0.3-0.8 [facility] Comment on above: Performed By: #### C BC ####[facility] [address] [id number] Maravilla Monocytes/100 WBC (Bld) 10.1 % Normal 1.7-12.0 [facility] Comment on above: Performed By: #### C BC ####[facility] [address] [id number]. Simona Maravilla NEUT # 11.8 103/ul Critically high 1.4-6.5 [facility] Comment on above: Performed By: #### C BC ####[facility] [address] [id number]. Simona Maravilla Neutrophils/100 WBC (Bld) 78.1 % Critically high 43.0-75.0 [facility] Comment on above: Performed By: #### C BC ####[facility] [address] [address]Dr. Simona Maravilla Platelet mean volume (Bld) [Entitic vol] 9.5 fL Normal 9.5-13.5 [facility] Comment on above: Performed By: #### C BC ####[facility] [address] [address]Dr. Simona Maravilla PLT 340 103/ul Normal 150-450 [facility] Comment on above: Performed By: #### C BC ####[facility] [address] [address]Dr. Simona Maravilla RBC 5.92 106/ul Normal 4.70-6.10 [facility] Comment on above: Performed By: #### C BC ####[facility] [address] [address]Dr. Simona Maravilla WBC 15.1 103/ul Critically high 4.0-11.0 [facility] Comment on above: Performed By: #### C BC ####[facility] [address] [id number]. Simona Maravilla CT ABD/PELV W CONon 07-30-19 CT [...] by: DONALDO BRITO Date: 2022-07-29 21:59 Normal [facility] CULTURE BLOODon 07-29-2022 Microscopic examination of blood, culture Culture Observations: NO GROWTH AT 5 DAYS. Normal [facility] Comment on above: Performed By: #### B LDCX2 ####[facility] [address] [address]DrKali Maravilla Microscopic examination of blood, culture Culture Observations: NO GROWTH AT 5 DAYS. Normal [facility] Comment on above: Performed By: #### B LDCX1 ####[facility] [address] [id number] Maravilla LACTATE/LACTIC ACIDon 2022 Lactate [Moles/Vol] 1.6 mmol/L Normal 0.4-2.0 [facility] Comment on above: Performed By: #### C BC #### [facility] [address] [address] [address] Simona Maravilla PROF 14(COMP METB)on 023 Albumin [Mass/Vol] 3.8 g/dL Normal 3.4-5.0 [facility] Comment on above: Performed By: #### C MP ####[facility] [address] [id number]. Simona Taiwo Albumin/Globulin [Mass ratio] 1.0 {ratio} Normal [facility] Comment on above: Performed By: #### C MP ####[facility] [address] [id number]. Simona Taiwo ALP [Catalytic activity/Vol] 147 U/L Critically high 46-116 [facility] Comment on above: Performed By: #### C MP ####[facility] [address] [place], [place] [address]Dr. Simona Taiwo ALT [Catalytic activity/Vol] 17 U/L Normal 16-63 [facility] Comment on above: Performed By: #### C MP ####[facility] [address] [place], [place] [address]Dr. Simona Maravilla Anion gap [Moles/Vol] 15.0 mmol/L Normal [facility] Comment on above: Performed By: #### C MP ####[facility] [address] [place], [place] [address]Dr. Simona Taiwo AST [Catalytic activity/Vol] 22 U/L Normal 15-37 [facility] Comment on above: Performed By: #### C MP ####[facility] [address] [place], [place] [address]Dr. Simona Maravilla Bilirubin [Mass/Vol] 0.8 mg/dL Normal 0.2-1.0 [facility] Comment on above: Performed By: #### C MP ####[facility] X[address] [place], [place] [address]Dr. Simona Maravilla Calcium [Mass/Vol] 8.3 mg/dL Critically low 8.5-10.1 [facility] Comment on above: Performed By: #### C MP ####[facility] [address] [place], [place] [address]Dr. Simona Maravilla Chloride [Moles/Vol] 103 mmol/L Normal 98-107 [facility] Comment on above: Performed By: #### C MP ####[facility] [address] [phone]. Simona Maravilla CO2 [Moles/Vol] 23.6 mmol/L Normal 21.0-32.0 [facility] Comment on above: Performed By: #### C MP ####[facility] [address] [address]Dr. Simona Taiwo Creatinine [Mass/Vol] 0.86 mg/dL Normal 0.70-1.30 [facility] Comment on above: Performed By: #### C MP ####[facility] [address] [id number]. Simona Taiwo EGFR-AF SAUDI ARABIAN >60 Normal >=60 [facility] Comment on above: Performed By: #### C MP ####[facility] [address] [address]Dr. Simona Taiwo EGFR-NON AF SAUDI ARABIAN >60 Normal >=60 [facility] Comment on above: Performed By: #### C MP ####[facility] [address] [place], [place] [address]Dr. Simona Taiwo Globulin (S) [Mass/Vol] 3.9 g/dL Normal [facility] Comment on above: Performed By: #### C MP ####[facility] [address] [place], [place] [address]Dr. Simona Taiwo Glucose [Mass/Vol] 95 mg/dL Normal 74-106 [facility] Comment on above: Performed By: #### C MP ####[facility] [address] [place], [place] [address]Dr. Simona Taiwo Potassium [Moles/Vol] 3.6 mmol/L Normal 3.5-5.1 [facility] Comment on above: Performed By: #### C MP ####[facility] [address] [place], [place] [address]Dr. Simona Taiwo Protein [Mass/Vol] 7.7 g/dL Normal 6.4-8.2 [facility] Comment on above: Performed By: #### C MP ####[facility] [address] [place], [place] [address]Dr. Simona Maravilla Sodium [Moles/Vol] 138 mmol/L Normal 136-145 [facility] Comment on above: Performed By: #### C MP ####[facility] [address] [place], [place] [address]Lx. Simona Maravilla Urea nitrogen [Mass/Vol] 9.0 mg/dL Normal 7.0-18.0 [facility] Comment on above: Performed By: #### C MP ####[facility] [address] [place], [place] [address]Vr. Simona Maravilla Urea nitrogen/Creatinine [Mass ratio] 10.5 mg/mg Normal [facility] Comment on above: Performed By: #### C MP ####[facility] [address] [place], [place] [address]Zu. Simona Maravilla [facility] SARS-CoV-2 (COVID-19) RNA UMESH+probe Ql (Unsp spec) Not detected Normal NOT DETECTED [facility] Comment on above: Result Comment: When diagnostic [...] for this test is supported by the Machine Operator Hop Worker of Health and Human Service's declaration that [...] Performed By: #### C RP, CMP #### [facility] [address] [place], [place] [address] Dr. Simona Maravilla XR CHEST 1 Von [...] LEYLA W[place] Date: 2022-03-30 22:48 Normal [facility] CBC AUTO DIFFon 03-30-2022 BASO # 0.0 103/ul Normal 0.0-0.1 [facility] Comment on above: Performed By: #### C RP, CMP #### [facility] [address] [address] [address] Simona Maravilla Basophils/100 WBC (Bld) 0.4 % Normal 0.2-2.0 [facility] Comment on above: Performed By: #### C RP, CMP #### [facility] [address] [address] [address] Simona Maravilla EO # 0.0 103/ul Normal 0.0-0.7 [facility] Comment on above: Performed By: #### C RP, CMP #### [facility] [address] [address] [address] Simona Maravilla Eosinophils/100 WBC (Bld) 0.0 % Critically low 0.9-7.0 [facility] Comment on above: Performed By: #### C RP, CMP #### [facility] [address] [address] [address] Simona Maravilla Erythrocyte distribution width (RBC) [Ratio] 18.4 % Critically high 11.0-15.0 [facility] Comment on above: Performed By: #### C RP, CMP #### [facility] [address] [address] [address] Simona Maravilla Hematocrit (Bld) [Volume fraction] 44.2 % Normal 42.0-54.0 [facility] Comment on above: Performed By: #### C RP, CMP #### [facility] [address] [place] [address] Dr. Simona Maravilla Hemoglobin (Bld) [Mass/Vol] 13.9 g/dL Critically low 14.0-18.0 [facility] Comment on above: Performed By: #### C RP, CMP #### [facility] [address] [place] [address] Dr. Simona Maravilla IG # 0.05 10e3/ul Critically high 0.00-0.03 [facility] Comment on above: Performed By: #### C RP, CMP #### [facility] [address] [place] [address] Dr. Simona Maravilla IG % 0.5 % Normal 0.0-0.5 [facility] Comment on above: Performed By: #### C RP, CMP #### [facility] [address] [place] [address] Dr. Simona Maravilla LYMPH # 0.6 103/ul Critically low 1.2-3.8 [facility] Comment on above: Performed By: #### C RP, CMP #### [facility] [address] [place] [address] Dr. Simona Maravilla Lymphocytes/100 WBC (Bld) 5.5 % Critically low 20.5-60.0 [facility] Comment on above: Performed By: #### C RP, CMP #### [facility] [address] [place] [address] Dr. Simona Maravilla MANUAL DIFF REQ NO Normal [facility] Comment on above: Performed By: #### C RP, CMP #### [facility] [address] [place] [address] Dr. Simona Maravilla MCH (RBC) [Entitic mass] 23.4 pg Critically low 25.9-34.0 [facility] Comment on above: Performed By: #### C RP, CMP #### [facility] [address] [place] [address] Dr. Simona Maravilla MCHC (RBC) [Mass/Vol] 31.4 g/dL Normal 29.9-35.2 [facility] Comment on above: Performed By: #### C RP, CMP #### [facility] [address] [place] [address] Dr. Simona Maravilla MCV (RBC) [Entitic vol] 74.3 fL Critically low 80.0-94.0 [facility] Comment on above: Performed By: #### C RP, CMP #### [facility] [address] [place] [address] Dr. Simona Maravilla MONO # 0.9 103/ul Critically high 0.3-0.8 [facility] Comment on above: Performed By: #### C RP, CMP #### [facility] [address] [place] [address] Dr. Simona Maravilla Monocytes/100 WBC (Bld) 8.2 % Normal 1.7-12.0 [facility] Comment on above: Performed By: #### C RP, CMP #### [facility] [address] [place] [address] Dr. Simona Maravilla NEUT # 8.8 103/ul Critically high 1.4-6.5 [facility] Comment on above: Performed By: #### C RP, CMP #### [facility] [address] [place] [address] Dr. Simona Maravilla Neutrophils/100 WBC (Bld) 85.4 % Critically high 43.0-75.0 [facility] Comment on above: Performed By: #### C RP, CMP #### [facility] [address] [place] [address] Dr. Simona Maravilla Platelet mean volume (Bld) [Entitic vol] 10.0 fL Normal 9.5-13.5 [facility] Comment on above: Performed By: #### C RP, CMP #### [facility] [address] [place] [address] Dr. Simona Maravilla PLT 342 103/ul Normal 150-450 [facility] Comment on above: Performed By: #### C RP, CMP #### [facility] [address] [place] [address] Dr. Simona Maravilla RBC 5.95 106/ul Normal 4.70-6.10 [facility] Comment on above: Performed By: #### C RP, CMP #### [facility] [address] [place] [address] Dr. Simona Maravilla WBC 10.3 103/ul Normal 4.0-11.0 [facility] Comment on above: Performed By: #### C RP, CMP #### [facility] [address] [place] [address] Dr. Simona Maravilla INFLUENZA A AND B AGon 03-30 INFLUBNEGH SEE BELOW Normal [facility] Comment on above: Result Comment: Nega tive for Flu B protein antigen. Infection due to Flu B cannot be ruled out. Flu B antigen in the sample may be below the detection limit of the test. Performed By: #### I NFLUAB ####[facility] [address] [place], [place] [address]Dr. Simona Maravilla INFLUENZA A AG Positive Abnormal NEGATIVE SEE COMMENT [facility] [place] [facility] Comment on above: Performed By: #### I NFLUAB ####[facility] [id number] [place], [place] [address]Dr. Simona Maravilla INFLUENZA B AG Negative Normal NEGATIVE SEE COMMENT [facility] Comment on above: Performed By: #### I NFLUAB ####[facility] [address] [address]Dr. Simona Maravilla INFLUPOSH SEE BELOW Normal [facility] Comment on above: Result Comment: NOTE : Live attenuated influenzae vaccine viruses can cause a positive result for a rapid influenza diagnostic test if administered up to 7 days prior to rapid testing. Performed By: #### I NFLUAB ####[facility] [id number] [place], [place] [address]DrKali Maravilla INTERNAL CONTROLS Within Normal Limits Normal Wi thin Normal Limits [facility] Comment on above: Performed By: #### I NFLUAB ####[facility] [id number] [place], [place] [address]DrKali Maravilla PROF CHEM 8 (BAS METB)on Anion gap [Moles/Vol] 13.6 mmol/L Normal [facility] Comment on above: Performed By: #### C RP, CMP #### [facility] [address] [address] [address] Simona Maravilla Calcium [Mass/Vol] 8.8 mg/dL Normal 8.5-10.1 [facility] Comment on above: Performed By: #### C RP, CMP #### [facility] [address] [address] [address] Simona Maravilla Chloride [Moles/Vol] 101 mmol/L Normal 98-107 [facility] Comment on above: Performed By: #### C RP, CMP #### [facility] [address] [address] [address] Simona Maravilla CO2 [Moles/Vol] 23.3 mmol/L Normal 21.0-32.0 [facility] Comment on above: Performed By: #### C RP, CMP #### [facility] [address] [place] [address] Dr. Simona Maravilla Creatinine [Mass/Vol] 0.87 mg/dL Normal 0.70-1.30 [facility] Comment on above: Performed By: #### C RP, CMP #### [facility] [address] [place] [address] Dr. Simona Maravilla EGFR-AF SAUDI ARABIAN >60 Normal >=60 [facility] Comment on above: Performed By: #### C RP, CMP #### [facility] [address] [place] [address] Dr. Simona Maravilla EGFR-NON AF SAUDI ARABIAN >60 Normal >=60 [facility] Comment on above: Performed By: #### C RP, CMP #### [facility] [address] [place] [address] Dr. Simona Maravilla Glucose [Mass/Vol] 124 mg/dL Critically high 74-106 [facility] Comment on above: Performed By: #### C RP, CMP #### [facility] [address] [place] [address] Dr. Simona Maravilla Potassium [Moles/Vol] 2.9 mmol/L Critically low 3.5-5.1 [facility] Comment on above: Performed By: #### C RP, CMP #### [facility] [address] [place] [address] Dr. Simona Maravilla Sodium [Moles/Vol] 135 mmol/L Critically low 136-145 [facility] Comment on above: Performed By: #### C RP, CMP #### [facility] [address] [place] [address] Dr. Simona Maravilla Urea nitrogen [Mass/Vol] 10.0 mg/dL Normal 7.0-18.0 [facility] Comment on above: Performed By: #### C RP, CMP #### [facility] [address] [place] [address] Dr. Simona Maravilla Urea nitrogen/Creatinine [Mass ratio] 11.5 mg/mg Normal [facility] Comment on above: Performed By: #### C RP, CMP #### [facility] [address] [place] [address] Dr. Simona Maravilla CBC AUTO DIFFon 11-07-2021 BASO # 0.1 103/ul Normal 0.0-0.1 [facility] Comment on above: Performed By: #### C BC #### [facility] [address] [place] [address] Dr. Simona Maravilla Basophils/100 WBC (Bld) 1.6 % Normal 0.2-2.0 [facility] Comment on above: Performed By: #### C BC #### [facility] [address] [place] [address] Dr. Simona Maravilla EO # 0.3 103/ul Normal 0.0-0.7 [facility] Comment on above: Performed By: #### C BC #### [facility] [address] [place] [address] Dr. Simona Maravilla Eosinophils/100 WBC (Bld) 5.2 % Normal 0.9-7.0 [facility] Comment on above: Performed By: #### C BC #### [facility] [address] [place] [address] Dr. Simona Maravilla Erythrocyte distribution width (RBC) [Ratio] 20.6 % Critically high 11.0-15.0 [facility] Comment on above: Performed By: #### C BC #### [facility] [address] [place] [address] Dr. Simona Maravilla Hematocrit (Bld) [Volume fraction] 43.7 % Normal 42.0-54.0 [facility] Comment on above: Performed By: #### C BC #### [facility] [address] [place] [address] Dr. Simona Maravilla Hemoglobin (Bld) [Mass/Vol] 13.2 g/dL Critically low 14.0-18.0 [facility] Comment on above: Performed By: #### C BC #### [facility] [address] [place] [address] Dr. Simona Maravilla IG # 0.04 10e3/ul Critically high 0.00-0.03 [facility] Comment on above: Performed By: #### C BC #### [facility] [address] [place] [address] Dr. Simona Maravilla IG % 0.6 % Critically high 0.0-0.5 [facility] Comment on above: Performed By: #### C BC #### [facility] [address] [place] [address] Dr. Simona Maravilla LYMPH # 1.7 103/ul Normal 1.2-3.8 [facility] Comment on above: Performed By: #### C BC #### [facility] [address] [place] [address] Dr. Simona Maravilla Lymphocytes/100 WBC (Bld) 26.4 % Normal 20.5-60.0 [facility] Comment on above: Performed By: #### C BC #### [facility] [address] [place] [address] Dr. Simona Maravilla MANUAL DIFF REQ NO Normal [facility] Comment on above: Performed By: #### C BC #### [facility] [address] [place] [address] Dr. Simona Maravilla MCH (RBC) [Entitic mass] 24.4 pg Critically low 25.9-34.0 [facility] Comment on above: Performed By: #### C BC #### [facility] [address] [place] [address] Dr. Simona Maravilla MCHC (RBC) [Mass/Vol] 30.2 g/dL Normal 29.9-35.2 [facility] Comment on above: Performed By: #### C BC #### [facility] [address] [address] [address] Simona Maravilla MCV (RBC) [Entitic vol] 80.9 fL Normal 80.0-94.0 [facility] Comment on above: Performed By: #### C BC #### [facility] [address] [address] [address] Simona Maravilla MONO # 0.6 103/ul Normal 0.3-0.8 [facility] Comment on above: Performed By: #### C BC #### [facility] [address] [address] [address] Simona Maravilla Monocytes/100 WBC (Bld) 10.0 % Normal 1.7-12.0 [facility] Comment on above: Performed By: #### C BC #### [facility] [address] [address] [address] Simona Maravilla NEUT # 3.6 103/ul Normal 1.4-6.5 [facility] Comment on above: Performed By: #### C BC #### [facility] [address] [address] [address] Simona Maravilla Neutrophils/100 WBC (Bld) 56.2 % Normal 43.0-75.0 [facility] Comment on above: Performed By: #### C BC #### [facility] [address] [address] [address] Simona Maravilla Platelet mean volume (Bld) [Entitic vol] 9.4 fL Critically low 9.5-13.5 [facility] Comment on above: Performed By: #### C BC #### [facility] [address] [address] [address] Simona Maravilla PLT 558 103/ul Critically high 150-450 [facility] Comment on above: Performed By: #### C BC #### [facility] [address] [address] [address] Simona Maravilla RBC 5.40 106/ul Normal 4.70-6.10 [facility] Comment on above: Performed By: #### C BC #### [facility] [address] [address] [address] Simona Maravilla WBC 6.3 103/ul Normal 4.0-11.0 [facility] Comment on above: Performed By: #### C BC #### [facility] [address] [address] [address] Simona Maravilla CRPon 11-07-2021 CRP 5.5 mg/dL Critically high <=1.0 [facility] Comment on above: Performed By: #### C BC #### [facility] [address] [address] [address] Simona Maravilla PROF 14(COMP METB)on 022 Albumin [Mass/Vol] 3.8 g/dL Normal 3.4-5.0 [facility] Comment on above: Performed By: #### C BC #### [facility] [address] [place] [address] Dr. Simona Maravilla Albumin/Globulin [Mass ratio] 0.9 {ratio} Normal [facility] Comment on above: Performed By: #### C BC #### [facility] [address] [place] [address] Dr. Simona Maravilla ALP [Catalytic activity/Vol] 125 U/L Critically high 46-116 [facility] Comment on above: Performed By: #### C BC #### [facility] [address] [address] [address] Simona Maravilla ALT [Catalytic activity/Vol] 15 U/L Critically low 16-63 [facility] Comment on above: Performed By: #### C BC #### [facility] [address] [place] [address] Dr. Simona Maravilla Anion gap [Moles/Vol] 14.2 mmol/L Normal [facility] Comment on above: Performed By: #### C BC #### [facility] [address] [place] [address] Dr. Simona Maravilla AST [Catalytic activity/Vol] 26 U/L Normal 15-37 [facility] Comment on above: Performed By: #### C BC #### [facility] [address] [address] [address] Simona Maravilla Bilirubin [Mass/Vol] 0.5 mg/dL Normal 0.2-1.0 [facility] Comment on above: Performed By: #### C BC #### [facility] [address] [address] [address] Simona Maravilla Calcium [Mass/Vol] 9.5 mg/dL Normal 8.5-10.1 [facility] Comment on above: Performed By: #### C BC #### [facility] [address] [place] [address] Dr. Simona Maravilla Chloride [Moles/Vol] 105 mmol/L Normal 98-107 [facility] Comment on above: Performed By: #### C BC #### [facility] [address] [place] [address] Dr. Simona Maravilla CO2 [Moles/Vol] 25.0 mmol/L Normal 21.0-32.0 [facility] Comment on above: Performed By: #### C BC #### [facility] [address] [place] [address] Dr. Simona Maravilla Creatinine [Mass/Vol] 0.85 mg/dL Normal 0.70-1.30 [facility] Comment on above: Performed By: #### C BC #### [facility] [address] [place] [address] Dr. Simona Maravilla EGFR-AF SAUDI ARABIAN >60 Normal >=60 [facility] Comment on above: Performed By: #### C BC #### [facility] [address] [place] [address] Dr. Simona Maravilla EGFR-NON AF SAUDI ARABIAN >60 Normal >=60 [facility] Comment on above: Performed By: #### C BC #### [facility] [address] [place] [address] Dr. Simona Maravilla Globulin (S) [Mass/Vol] 4.1 g/dL Normal [facility] Comment on above: Performed By: #### C BC #### [facility] [address] [place] [address] Dr. Simona Maravilla Glucose [Mass/Vol] 75 mg/dL Normal 74-106 [facility] Comment on above: Performed By: #### C BC #### [facility] [address] [address] [address] Simona Maravilla Potassium [Moles/Vol] 4.2 mmol/L Normal 3.5-5.1 [facility] Comment on above: Performed By: #### C BC #### [facility] [address] [address] [address] Simona Maravilla Protein [Mass/Vol] 7.9 g/dL Normal 6.4-8.2 [facility] Comment on above: Performed By: #### C BC #### [facility] [address] [address] [address] Simona Maravilla Sodium [Moles/Vol] 140 mmol/L Normal 136-145 [facility] Comment on above: Performed By: #### C BC #### [facility] [address] [address] [address] Simona Maravilla Urea nitrogen [Mass/Vol] 10.0 mg/dL Normal 7.0-18.0 [facility] Comment on above: Performed By: #### C BC #### [facility] [address] [address] [address] Simona Maravilla Urea nitrogen/Creatinine [Mass ratio] 11.8 mg/mg Normal [facility] Comment on above: Performed By: #### C BC #### [facility] [address] [address] [address] Simona Maravilla VANCOMYCIN TROUGHon 11-08-19 VANCOMYCIN TROUGH 11.2 ug/ml Normal 5.0-20.0 [facility] Comment on above: Performed By: #### V ANCT ####[facility] [address] [address]Dr. Simona Maravilla CBC AUTO DIFFon 10-31-2021 BASO # 0.1 103/ul Normal 0.0-0.1 [facility] Comment on above: Performed By: #### C BC #### [facility] [address] [address] [address] Simona Maravilla Basophils/100 WBC (Bld) 1.1 % Normal 0.2-2.0 [facility] Comment on above: Performed By: #### C BC #### [facility] [address] [place] [address] Dr. Simona Maravilla EO # 0.3 103/ul Normal 0.0-0.7 [facility] Comment on above: Performed By: #### C BC #### [facility] [address] [place] [address] Dr. Simona Maravilla Eosinophils/100 WBC (Bld) 4.5 % Normal 0.9-7.0 [facility] Comment on above: Performed By: #### C BC #### [facility] [address] [place] [address] Dr. Simona Maravilla Erythrocyte distribution width (RBC) [Ratio] 20.4 % Critically high 11.0-15.0 [facility] Comment on above: Performed By: #### C BC #### [facility] [address] [place] [address] Dr. Simona Maravilla Hematocrit (Bld) [Volume fraction] 42.1 % Normal 42.0-54.0 [facility] Comment on above: Performed By: #### C BC #### [facility] [address] [place] [address] Dr. Simona Maravilla Hemoglobin (Bld) [Mass/Vol] 12.6 g/dL Critically low 14.0-18.0 [facility] Comment on above: Performed By: #### C BC #### [facility] [address] [place] [address] Dr. Simona Maravilla IG # 0.08 10e3/ul Critically high 0.00-0.03 [facility] Comment on above: Performed By: #### C BC #### [facility] [address] [place] [address] Dr. Simona Maravilla IG % 1.1 % Critically high 0.0-0.5 [facility] Comment on above: Performed By: #### C BC #### [facility] [address] [address] [address] Simona Maravilla LYMPH # 1.5 103/ul Normal 1.2-3.8 [facility] Comment on above: Performed By: #### C BC #### [facility] [address] [place] [address] Dr. Simona Maravilla Lymphocytes/100 WBC (Bld) 19.7 % Critically low 20.5-60.0 [facility] Comment on above: Performed By: #### C BC #### [facility] [address] [place] [address] Dr. Simona Maravilla MANUAL DIFF REQ NO Normal [facility] Comment on above: Performed By: #### C BC #### [facility] [address] [place] [address] Dr. Simona Maravilla MCH (RBC) [Entitic mass] 24.3 pg Critically low 25.9-34.0 [facility] Comment on above: Performed By: #### C BC #### [facility] [address] [place] [address] Dr. Simona Maravilla MCHC (RBC) [Mass/Vol] 29.9 g/dL Normal 29.9-35.2 [facility] Comment on above: Performed By: #### C BC #### [facility] [address] [place] [address] Dr. Simona Maravilla MCV (RBC) [Entitic vol] 81.3 fL Normal 80.0-94.0 [facility] Comment on above: Performed By: #### C BC #### [facility] [address] [place] [address] Dr. Simona Maravilla MONO # 0.8 103/ul Normal 0.3-0.8 [facility] Comment on above: Performed By: #### C BC #### [facility] [address] [place] [address] Dr. Simona Maravilla Monocytes/100 WBC (Bld) 10.7 % Normal 1.7-12.0 [facility] Comment on above: Performed By: #### C BC #### [facility] [address] [place] [address] Dr. Simona Maravilla NEUT # 4.7 103/ul Normal 1.4-6.5 [facility] Comment on above: Performed By: #### C BC #### [facility] [address] [place] [address] Dr. Simona Maravilla Neutrophils/100 WBC (Bld) 62.9 % Normal 43.0-75.0 [facility] Comment on above: Performed By: #### C BC #### [facility] [address] [address] [address] Simona Maravilla Platelet mean volume (Bld) [Entitic vol] 9.2 fL Critically low 9.5-13.5 [facility] Comment on above: Performed By: #### C BC #### [facility] [address] [place] [address] Dr. Simona Maravilla PLT 835 103/ul Critically high 150-450 [facility] Comment on above: Performed By: #### C BC #### [facility] [address] [place] [address] Dr. Simona Maravilla RBC 5.18 106/ul Normal 4.70-6.10 [facility] Comment on above: Performed By: #### C BC #### [facility] [address] [place] [address] Dr. Simona Maravilla WBC 7.5 103/ul Normal 4.0-11.0 [facility] Comment on above: Performed By: #### C BC #### [facility] [address] [place] [address] Dr. Simona Maravilla CRPon 10-31-2021 CRP 5.6 mg/dL Critically high <=1.0 [facility] Comment on above: Performed By: #### C RP, CMP #### [facility] [address] [place] [address] Dr. Simona Maravilla PROF 14(COMP METB)on 022 Albumin [Mass/Vol] 3.7 g/dL Normal 3.4-5.0 [facility] Comment on above: Performed By: #### C RP, CMP #### [facility] [address] [place] [address] Dr. Simona Maravilla Albumin/Globulin [Mass ratio] 0.8 {ratio} Normal [facility] Comment on above: Performed By: #### C RP, CMP #### [facility] [address] [place] [address] Dr. Simona Maravilla ALP [Catalytic activity/Vol] 136 U/L Critically high 46-116 [facility] Comment on above: Performed By: #### C RP, CMP #### [facility] [address] [place] [address] Dr. Simona Maravilla ALT [Catalytic activity/Vol] 10 U/L Critically low 16-63 [facility] Comment on above: Performed By: #### C RP, CMP #### [facility] [address] [place] [address] Dr. Simona Maravilla Anion gap [Moles/Vol] 19.4 mmol/L Normal [facility] Comment on above: Performed By: #### C RP, CMP #### [facility] [address] [place] [address] Dr. Simona Maravilla AST [Catalytic activity/Vol] 20 U/L Normal 15-37 [facility] Comment on above: Performed By: #### C RP, CMP #### [facility] [address] [place] [address] Dr. Simona Maravilla Bilirubin [Mass/Vol] 0.7 mg/dL Normal 0.2-1.0 [facility] Comment on above: Performed By: #### C RP, CMP #### [facility] [address] [place] [address] Dr. Simona Maravilla Calcium [Mass/Vol] 9.5 mg/dL Normal 8.5-10.1 [facility] Comment on above: Performed By: #### C RP, CMP #### [facility] [address] [place] [address] Dr. Simona Maravilla Chloride [Moles/Vol] 99 mmol/L Normal 98-107 [facility] Comment on above: Performed By: #### C RP, CMP #### [facility] [address] [place] [address] Dr. Simona Maravilla CO2 [Moles/Vol] 21.4 mmol/L Normal 21.0-32.0 [facility] Comment on above: Performed By: #### C RP, CMP #### [facility] [address] [place] [address] Dr. Simona Maravilla Creatinine [Mass/Vol] 0.80 mg/dL Normal 0.70-1.30 [facility] Comment on above: Performed By: #### C RP, CMP #### [facility] [address] [place] [address] Dr. Simona Maravilla EGFR-AF SAUDI ARABIAN >60 Normal >=60 [facility] Comment on above: Performed By: #### C RP, CMP #### [facility] [address] [place] [address] Dr. Simona Maravilla EGFR-NON AF SAUDI ARABIAN >60 Normal >=60 [facility] Comment on above: Performed By: #### C RP, CMP #### [facility] [address] [place] [address] Dr. Simona Maravilla Globulin (S) [Mass/Vol] 4.6 g/dL Normal [facility] Comment on above: Performed By: #### C RP, CMP #### [facility] [address] [place] [address] Dr. Simona Maravilla Glucose [Mass/Vol] 56 mg/dL Critically low 74-106 [facility] Comment on above: Performed By: #### C RP, CMP #### [facility] [address] [place] [address] Dr. Simona Maravilla Potassium [Moles/Vol] 3.8 mmol/L Normal 3.5-5.1 [facility] Comment on above: Performed By: #### C RP, CMP #### [facility] [address] [place] [address] Dr. Simona Maravilla Protein [Mass/Vol] 8.3 g/dL Critically high 6.4-8.2 [facility] Comment on above: Performed By: #### C RP, CMP #### [facility] [address] [place] [address] Dr. Simona Maravilla Sodium [Moles/Vol] 136 mmol/L Normal 136-145 [facility] Comment on above: Performed By: #### C RP, CMP #### [facility] [address] [place] [address] Dr. Simona Maravilla Urea nitrogen [Mass/Vol] 7.0 mg/dL Normal 7.0-18.0 [facility] Comment on above: Performed By: #### C RP, CMP #### [facility] [address] [place] [address] Dr. Simona Maravilla Urea nitrogen/Creatinine [Mass ratio] 8.8 mg/mg Normal [facility] Comment on above: Performed By: #### C RP, CMP #### [facility] [address] [place] [address] Dr. Simona Maravilla VANCOMYCIN TROUGHon 11-01-19 VANCOMYCIN TROUGH 13.5 ug/ml Normal 5.0-20.0 [facility] Comment on above: Performed By: #### C RP, CMP #### [facility] [address] [place] [address] Dr. Simona Maravilla CBC AUTO DIFFon 10-10-2021 BASO # 0.1 103/ul Normal 0.0-0.1 [facility] Comment on above: Performed By: #### C RP, CMP #### [facility] [address] [place] [address] Dr. Simona Maravilla Basophils/100 WBC (Bld) 1.3 % Normal 0.2-2.0 [facility] Comment on above: Performed By: #### C RP, CMP #### [facility] [address] [place] [address] Dr. Simona Maravilla EO # 0.3 103/ul Normal 0.0-0.7 [facility] Comment on above: Performed By: #### C RP, CMP #### [facility] [address] [place] [address] Dr. Simona Maravilla Eosinophils/100 WBC (Bld) 4.9 % Normal 0.9-7.0 [facility] Comment on above: Performed By: #### C RP, CMP #### [facility] [address] [place] [address] Dr. Simona Maravilla Erythrocyte distribution width (RBC) [Ratio] 21.3 % Critically high 11.0-15.0 [facility] Comment on above: Performed By: #### C RP, CMP #### [facility] [address] [place] [address] Dr. Simona Maravilla Hematocrit (Bld) [Volume fraction] 45.7 % Normal 42.0-54.0 [facility] Comment on above: Performed By: #### C RP, CMP #### [facility] [address] [place] [address] Dr. Simona Maravilla Hemoglobin (Bld) [Mass/Vol] 13.3 g/dL Critically low 14.0-18.0 [facility] Comment on above: Performed By: #### C RP, CMP #### [facility] [address] [place] [address] Dr. Simona Maravilla IG # 0.06 10e3/ul Critically high 0.00-0.03 [facility] Comment on above: Performed By: #### C RP, CMP #### [facility] [address] [place] [address] Dr. Simona Maravilla IG % 1.0 % Critically high 0.0-0.5 [facility] Comment on above: Performed By: #### C RP, CMP #### [facility] [address] [place] [address] Dr. Simona Maravilla LYMPH # 1.4 103/ul Normal 1.2-3.8 [facility] Comment on above: Performed By: #### C RP, CMP #### [facility] [address] [place] [address] Dr. Simona Maravilla Lymphocytes/100 WBC (Bld) 23.8 % Normal 20.5-60.0 [facility] Comment on above: Performed By: #### C RP, CMP #### [facility] [address] [place] [address] Dr. Simona Maravilla MANUAL DIFF REQ NO Normal [facility] Comment on above: Performed By: #### C RP, CMP #### [facility] [address] [address] [address] Simona Maravilla MCH (RBC) [Entitic mass] 21.5 pg Critically low 25.9-34.0 [facility] Comment on above: Performed By: #### C RP, CMP #### [facility] [address] [place] [address] Dr. Simona Maravilla MCHC (RBC) [Mass/Vol] 29.1 g/dL Critically low 29.9-35.2 [facility] Comment on above: Performed By: #### C RP, CMP #### [facility] [address] [place] [address] Dr. Simona Maravilla MCV (RBC) [Entitic vol] 73.7 fL Critically low 80.0-94.0 [facility] Comment on above: Performed By: #### C RP, CMP #### [facility] [address] [place] [address] Dr. Simona Maravilla MONO # 0.6 103/ul Normal 0.3-0.8 [facility] Comment on above: Performed By: #### C RP, CMP #### [facility] [address] [place] [address] Dr. Simona Maravilla Monocytes/100 WBC (Bld) 9.2 % Normal 1.7-12.0 [facility] Comment on above: Performed By: #### C RP, CMP #### [facility] [address] [place] [address] Dr. Simona Maravilla NEUT # 3.6 103/ul Normal 1.4-6.5 [facility] Comment on above: Performed By: #### C RP, CMP #### [facility] [address] [place] [address] Dr. Simona Maravilla Neutrophils/100 WBC (Bld) 59.8 % Normal 43.0-75.0 [facility] Comment on above: Performed By: #### C RP, CMP #### [facility] [address] [place] [address] Dr. Simona Maravilla Platelet mean volume (Bld) [Entitic vol] 8.8 fL Critically low 9.5-13.5 [facility] Comment on above: Performed By: #### C RP, CMP #### [facility] [address] [place] [address] Dr. Simona Maravilla PLT 423 103/ul Normal 150-450 [facility] Comment on above: Performed By: #### C RP, CMP #### [facility] [address] [address] [address] Simona Maravilla RBC 6.20 106/ul Critically high 4.70-6.10 [facility] Comment on above: Performed By: #### C RP, CMP #### [facility] [address] [place] [address] Dr. Simona Maravilla WBC 6.0 103/ul Normal 4.0-11.0 [facility] Comment on above: Performed By: #### C RP, CMP #### [facility] [address] [place] [address] Dr. Simona Maravilla CRPon 10-10-2021 CRP 0.9 mg/dL Normal <=1.0 [facility] Comment on above: Performed By: #### C RP, CMP #### [facility] [address] [place] [address] Dr. Simona Maravilla PROF 14(COMP METB)on 022 Albumin [Mass/Vol] 3.9 g/dL Normal 3.4-5.0 [facility] Comment on above: Performed By: #### C BC #### [facility] [address] [place] [address] Dr. Simona Maravilla Albumin/Globulin [Mass ratio] 1.0 {ratio} Normal [facility] Comment on above: Performed By: #### C BC #### [facility] [address] [place] [address] Dr. Simona Maravilla ALP [Catalytic activity/Vol] 127 U/L Critically high 46-116 [facility] Comment on above: Performed By: #### C BC #### [facility] [address] [place] [address] Dr. Simona Maravilla ALT [Catalytic activity/Vol] 30 U/L Normal 16-63 [facility] Comment on above: Performed By: #### C BC #### [facility] [address] [address] [address] Simona Maravilla Anion gap [Moles/Vol] 13.9 mmol/L Normal [facility] Comment on above: Performed By: #### C BC #### [facility] [address] [address] [address] Simona Maravilla AST [Catalytic activity/Vol] 20 U/L Normal 15-37 [facility] Comment on above: Performed By: #### C BC #### [facility] [address] [address] [address] Simona Maravilla Bilirubin [Mass/Vol] 0.4 mg/dL Normal 0.2-1.0 [facility] Comment on above: Performed By: #### C BC #### [facility] [address] [address] [address] Simona Maravilla Calcium [Mass/Vol] 9.0 mg/dL Normal 8.5-10.1 [facility] Comment on above: Performed By: #### C BC #### [facility] [address] [address] [address] Simona Maravilla Chloride [Moles/Vol] 105 mmol/L Normal 98-107 [facility] Comment on above: Performed By: #### C BC #### [facility] [address] [address] [address] Simona Maravilla CO2 [Moles/Vol] 23.7 mmol/L Normal 21.0-32.0 [facility] Comment on above: Performed By: #### C BC #### [facility] [address] [address] [address] Simona Maravilla Creatinine [Mass/Vol] 0.68 mg/dL Critically low 0.70-1.30 [facility] Comment on above: Performed By: #### C BC #### [facility] [address] [address] [address] Simona Maravilla EGFR-AF SAUDI ARABIAN >=60 Normal >=60 [facility] Comment on above: Performed By: #### C BC #### [facility] [address] [address] [address] Simona Maravilla EGFR-NON AF SAUDI ARABIAN >=60 Normal >=60 [facility] Comment on above: Performed By: #### C BC #### [facility] [address] [address] [address] Simona Maravilla Globulin (S) [Mass/Vol] 3.8 g/dL Normal [facility] Comment on above: Performed By: #### C BC #### [facility] [address] [address] [address] Simona Maravilla Glucose [Mass/Vol] 82 mg/dL Normal 74-106 [facility] Comment on above: Performed By: #### C BC #### [facility] [address] [place] [address] Dr. Simona Maravilla Potassium [Moles/Vol] 3.6 mmol/L Normal 3.5-5.1 [facility] Comment on above: Performed By: #### C BC #### [facility] [address] [place] [address] Dr. Simona Maravilla Protein [Mass/Vol] 7.7 g/dL Normal 6.4-8.2 [facility] Comment on above: Performed By: #### C BC #### [facility] [address] [place] [address] Dr. Simona Maravilla Sodium [Moles/Vol] 139 mmol/L Normal 136-145 [facility] Comment on above: Performed By: #### C BC #### [facility] [address] [place] [address] Dr. Simona Maravilla Urea nitrogen [Mass/Vol] 9.0 mg/dL Normal 7.0-18.0 [facility] Comment on above: Performed By: #### C BC #### [facility] [address] [place] [address] Dr. Simona Maravilla Urea nitrogen/Creatinine [Mass ratio] 13.2 mg/mg Normal [facility] Comment on above: Performed By: #### C BC #### [facility] [address] [place], [place] [id number] Dr. Simona Maravilla VANCOMYCIN TROUGHon 10-11-19 VANCOMYCIN TROUGH 15.0 ug/ml Normal 5.0-20.0 [facility] Comment on above: Performed By: #### C BC #### [facility] [id number] Simona Maravilla XR CHEST 2V FRONTAL/LATon [facility] ic CBC AUTO DIFFon 10-03-2021 BASO # 0.1 103/ul Normal 0.0-0.1 [facility] Comment on above: Performed By: #### C BC ####[facility] [address] [address]Dr. Simona Maravilla Basophils/100 WBC (Bld) 1.1 % Normal 0.2-2.0 [facility] Comment on above: Performed By: #### C BC ####[facility] [address] [address]DrKali Maravilla EO # 0.4 103/ul Normal 0.0-0.7 [facility] Comment on above: Performed By: #### C BC ####[facility] [address] [address]DrKali Maravilla Eosinophils/100 WBC (Bld) 5.1 % Normal 0.9-7.0 [facility] Comment on above: Performed By: #### C BC ####[facility] [address] [id number] Maravilla Erythrocyte distribution width (RBC) [Ratio] 22.5 % Critically high 11.0-15.0 [facility] Comment on above: Performed By: #### C BC ####[facility] [address] [id number] Maravilla Hematocrit (Bld) [Volume fraction] 46.4 % Normal 42.0-54.0 [facility] Comment on above: Performed By: #### C BC ####[facility] [address] [id number] Maravilla Hemoglobin (Bld) [Mass/Vol] 13.5 g/dL Critically low 14.0-18.0 [facility] Comment on above: Performed By: #### C BC ####[facility] [address] [address]DrKali Maravilla IG # 0.05 10e3/ul Critically high 0.00-0.03 [facility] Comment on above: Performed By: #### C BC ####[facility] [address] [address]DrKali Maravilla IG % 0.7 % Critically high 0.0-0.5 [facility] Comment on above: Performed By: #### C BC ####[facility] [address] [address]DrKali Maravilla LYMPH # 2.2 103/ul Normal 1.2-3.8 [facility] Comment on above: Performed By: #### C BC ####[facility] [address] [address]DrKali Maravilla Lymphocytes/100 WBC (Bld) 29.9 % Normal 20.5-60.0 [facility] Comment on above: Performed By: #### C BC ####[facility] [address] [address]DrKali Maravilla MANUAL DIFF REQ NO Normal [facility] Comment on above: Performed By: #### C BC ####[facility] [address] [address]DrKali Maravilla MCH (RBC) [Entitic mass] 21.7 pg Critically low 25.9-34.0 [facility] Comment on above: Performed By: #### C BC ####[facility] [address] [id number] Maravilla MCHC (RBC) [Mass/Vol] 29.1 g/dL Critically low 29.9-35.2 [facility] Comment on above: Performed By: #### C BC ####[facility] [address] [id number] Maravilla MCV (RBC) [Entitic vol] 74.6 fL Critically low 80.0-94.0 [facility] Comment on above: Performed By: #### C BC ####[facility] [address] [address]DrKali Simona Maravilla MONO # 0.6 103/ul Normal 0.3-0.8 [facility] Comment on above: Performed By: #### C BC ####[facility] [address] [address]Dr. Simona Taiwo Monocytes/100 WBC (Bld) 8.4 % Normal 1.7-12.0 [facility] Comment on above: Performed By: #### C BC ####[facility] [address] [place], [place] [address]Dr. Simona Maravilla NEUT # 4.1 103/ul Normal 1.4-6.5 [facility] Comment on above: Performed By: #### C BC ####[facility] [address] [place], [place] [address]Dr. Simona Taiwo Neutrophils/100 WBC (Bld) 54.8 % Normal 43.0-75.0 [facility] Comment on above: Performed By: #### C BC ####[facility] [address] [place], [place] [address]DrKali Simona Maravilla Platelet mean volume (Bld) [Entitic vol] 9.8 fL Normal 9.5-13.5 [facility] Comment on above: Performed By: #### C BC ####[facility] [address] [place], [place] [address]Dr. Simona Maravilla PLT 427 103/ul Normal 150-450 [facility] Comment on above: Performed By: #### C BC ####[facility] [address] [place], [place] [id number] Simona Taiwo RBC 6.22 106/ul Critically high 4.70-6.10 [facility] Comment on above: Result Comment: 1+ a nisocytosis 1+ ovalocytes Performed By: #### C BC ####[facility] [address] [place], [place] [address]Dr. Simona Maravilla WBC 7.5 103/ul Normal 4.0-11.0 [facility] Comment on above: Performed By: #### C BC ####[facility] [address] [address]Dr. Simona Maravilla CRPon 10-03-2021 CRP 3.6 mg/dL Critically high <=1.0 [facility] Comment on above: Performed By: #### C MP, CRP ####[facility] [address] [address]Dr. Simona Maravilla PROF 14(COMP METB)on 022 Albumin [Mass/Vol] 3.8 g/dL Normal 3.4-5.0 [facility] Comment on above: Performed By: #### C MP, CRP ####[facility] [address] [place], [place] [address]Dr. Simona Maravilla Albumin/Globulin [Mass ratio] 0.9 {ratio} Normal [facility] Comment on above: Performed By: #### C MP, CRP ####[facility] [address] [place], [place] [address]Dr. Simona Maravilla ALP [Catalytic activity/Vol] 145 U/L Critically high 46-116 [facility] Comment on above: Performed By: #### C MP, CRP ####[facility] [address] [place], [place] [address]Dr. Simona Maravilla ALT [Catalytic activity/Vol] 29 U/L Normal 16-63 [facility] Comment on above: Performed By: #### C MP, CRP ####[facility] [address] [address]Dr. Simona Maravilla Anion gap [Moles/Vol] 15.5 mmol/L Normal [facility] Comment on above: Performed By: #### C MP, CRP ####[facility] [address] [address]Dr. Simona Maravilla AST [Catalytic activity/Vol] 25 U/L Normal 15-37 [facility] Comment on above: Performed By: #### C MP, CRP ####[facility] [address] [place], [place] [address]Dr. Simona Maravilla Bilirubin [Mass/Vol] 0.4 mg/dL Normal 0.2-1.0 [facility] Comment on above: Performed By: #### C MP, CRP ####[facility] [address] [address]Dr. Simona Maravilla Calcium [Mass/Vol] 9.5 mg/dL Normal 8.5-10.1 [facility] Comment on above: Performed By: #### C MP, CRP ####[facility] [address] [address]Dr. Simona Maravilla Chloride [Moles/Vol] 104 mmol/L Normal 98-107 [facility] Comment on above: Performed By: #### C MP, CRP ####[facility] [address] [place], [place] [address]Dr. Simona Maravilla CO2 [Moles/Vol] 23.4 mmol/L Normal 21.0-32.0 [facility] Comment on above: Performed By: #### C MP, CRP ####[facility] [address] [place], [place] [address]Dr. Simona Maravilla Creatinine [Mass/Vol] 0.84 mg/dL Normal 0.70-1.30 [facility] Comment on above: Performed By: #### C MP, CRP ####[facility] [address] [place], [place] [address]Dr. Simona Maravilla EGFR-AF SAUDI ARABIAN >60 Normal >=60 [facility] Comment on above: Performed By: #### C MP, CRP ####[facility] [address] [address]Dr. Simona Maravilla EGFR-NON AF SAUDI ARABIAN >60 Normal >=60 [facility] Comment on above: Performed By: #### C MP, CRP ####[facility] [address] [place], [place] [address]Dr. Simona Maravilla Globulin (S) [Mass/Vol] 4.2 g/dL Normal [facility] Comment on above: Performed By: #### C MP, CRP ####[facility] [address] [place], [place] [address]Dr. Simona Maravilla Glucose [Mass/Vol] 93 mg/dL Normal 74-106 [facility] Comment on above: Performed By: #### C MP, CRP ####[facility] [address] [address]Dr. Simona Maravilla Potassium [Moles/Vol] 3.9 mmol/L Normal 3.5-5.1 [facility] Comment on above: Performed By: #### C MP, CRP ####[facility] [address] [address]Dr. Simona Maravilla Protein [Mass/Vol] 8.0 g/dL Normal 6.4-8.2 [facility] Comment on above: Performed By: #### C MP, CRP ####[facility] [address] [address]Dr. Simona Maravilla Sodium [Moles/Vol] 139 mmol/L Normal 136-145 [facility] Comment on above: Performed By: #### C MP, CRP ####[facility] [address] [address]Dr. Simona Maravilla Urea nitrogen [Mass/Vol] 10.0 mg/dL Normal 7.0-18.0 [facility] Comment on above: Performed By: #### C MP, CRP ####[facility] [address] [address]Dr. Simona aMravilla Urea nitrogen/Creatinine [Mass ratio] 11.9 mg/mg Normal [facility] Comment on above: Performed By: #### C MP, CRP ####[facility] [address] [id number]. Simona Maravilla VANCOMYCIN TROUGHon 10-04-19 VANCOMYCIN TROUGH 11.8 ug/ml Normal 5.0-20.0 [facility] Comment on above: Performed By: #### C BC #### [facility] [address] [place], [place] [address] Dr. Simona Maravilla CBC AUTO DIFFon 09-19-2021 BASO # 0.1 103/ul Normal 0.0-0.1 [facility] Comment on above: Performed By: #### C RP, CMP #### [facility] [address] [place] [address] Dr. Simona Maravilla Basophils/100 WBC (Bld) 0.7 % Normal 0.2-2.0 [facility] Comment on above: Performed By: #### C RP, CMP #### [facility] [address] [place] [address] Dr. Simona Maravilla EO # 0.3 103/ul Normal 0.0-0.7 [facility] Comment on above: Performed By: #### C RP, CMP #### [facility] [address] [place] [address] Dr. Simona Maravilla Eosinophils/100 WBC (Bld) 4.1 % Normal 0.9-7.0 [facility] Comment on above: Performed By: #### C RP, CMP #### [facility] [address] [place] [address] Dr. Simona Maravilla Erythrocyte distribution width (RBC) [Ratio] 22.7 % Critically high 11.0-15.0 [facility] Comment on above: Performed By: #### C RP, CMP #### [facility] [address] [place] [address] Dr. Simona Maravilla Hematocrit (Bld) [Volume fraction] 47.9 % Normal 42.0-54.0 [facility] Comment on above: Performed By: #### C RP, CMP #### [facility] [address] [place] [address] Dr. Simona Maravilla Hemoglobin (Bld) [Mass/Vol] 14.0 g/dL Normal 14.0-18.0 [facility] Comment on above: Performed By: #### C RP, CMP #### [facility] [address] [place] [address] Dr. Simona Maravilla IG # 0.03 10e3/ul Normal 0.00-0.03 [facility] Comment on above: Performed By: #### C RP, CMP #### [facility] [address] [place] [address] Dr. Simona Maravilla IG % 0.4 % Normal 0.0-0.5 [facility] Comment on above: Performed By: #### C RP, CMP #### [facility] [address] [address] [address] Simona Maravilla LYMPH # 1.7 103/ul Normal 1.2-3.8 [facility] Comment on above: Performed By: #### C RP, CMP #### [facility] [address] [place] [address] Dr. Simona Maravilla Lymphocytes/100 WBC (Bld) 23.3 % Normal 20.5-60.0 [facility] Comment on above: Performed By: #### C RP, CMP #### [facility] [address] [place] [address] Dr. Simona Maravilla MANUAL DIFF REQ NO Normal [facility] Comment on above: Performed By: #### C RP, CMP #### [facility] [address] [place] [address] Dr. Simona Maravilla MCH (RBC) [Entitic mass] 21.6 pg Critically low 25.9-34.0 [facility] Comment on above: Performed By: #### C RP, CMP #### [facility] [facility] [address] [place] [address] Dr. Simona Maravilla MCHC (RBC) [Mass/Vol] 29.2 g/dL Critically low 29.9-35.2 [facility] Comment on above: Performed By: #### C RP, CMP #### [facility] [address] [place] [address] Dr. Simona Maravilla MCV (RBC) [Entitic vol] 73.9 fL Critically low 80.0-94.0 [facility] Comment on above: Performed By: #### C RP, CMP #### [facility] [address] [place] [address] Dr. Simona Maravilla MONO # 0.7 103/ul Normal 0.3-0.8 [facility] Comment on above: Performed By: #### C RP, CMP #### [facility] [address] [place] [address] Dr. Simona Maravilla Monocytes/100 WBC (Bld) 9.2 % Normal 1.7-12.0 [facility] Comment on above: Performed By: #### C RP, CMP #### [facility] [address] [address] [address] Simona Maravilla NEUT # 4.6 103/ul Normal 1.4-6.5 [facility] Comment on above: Performed By: #### C RP, CMP #### [facility] [address] [address] [address] Simona Maravilla Neutrophils/100 WBC (Bld) 62.3 % Normal 43.0-75.0 [facility] Comment on above: Performed By: #### C RP, CMP #### [facility] [address] [place] [address] Dr. Simona Maravilla PLT 331 103/ul Normal 150-450 [facility] Comment on above: Performed By: #### C RP, CMP #### [facility] [address] [place] [address] Dr. Simona Maravilla RBC 6.48 106/ul Critically high 4.70-6.10 [facility] Comment on above: Performed By: #### C RP, CMP #### [facility] [address] [place] [address] Dr. Simona Maravilla WBC 7.4 103/ul Normal 4.0-11.0 [facility] Comment on above: Performed By: #### C RP, CMP #### [facility] [address] [address] [address] Simona Maravilla MAGNESIUMon 09-19-2021 Magnesium [Mass/Vol] 2.4 mg/dL Normal 1.8-2.4 [facility] Comment on above: Performed By: #### M G, CMP, TRIG, PREALB, PHOS ####[facility] [address] [address]Dr. Simona Maravlila PHOSPHORUSon 09-19-2021 Phosphate [Mass/Vol] 3.7 mg/dL Normal 2.6-4.7 [facility] Comment on above: Performed By: #### M G, CMP, TRIG, PREALB, PHOS #### [facility] [address] [address] [address] Simona Maravilla PREALBUMINon 09-19-2021 Prealbumin [Mass/Vol] 19.9 mg/dL Critically low 20.9-45.5 [facility] Comment on above: Performed By: #### M G, CMP, TRIG, PREALB, PHOS #### [facility] [address] [address] [address] Simona Maravilla PROF 14(COMP METB)on 022 Albumin [Mass/Vol] 4.0 g/dL Normal 3.4-5.0 [facility] Comment on above: Performed By: #### M G, CMP, TRIG, PREALB, PHOS ####[facility] [address] [address]Dr. Simona Maravilla Albumin/Globulin [Mass ratio] 1.2 {ratio} Normal [facility] Comment on above: Performed By: #### M G, CMP, TRIG, PREALB, PHOS ####[facility] [address] [address]Dr. Simona Maravilla ALP [Catalytic activity/Vol] 117 U/L Critically high 46-116 [facility] Comment on above: Performed By: #### M G, CMP, TRIG, PREALB, PHOS ####[facility] [address] [address]Dr. Simona Maravilla ALT [Catalytic activity/Vol] 37 U/L Normal 16-63 [facility] Comment on above: Performed By: #### M G, CMP, TRIG, PREALB, PHOS ####[facility] [address] [address]Dr. Simona Maravilla Anion gap [Moles/Vol] 12.7 mmol/L Normal [facility] Comment on above: Performed By: #### M G, CMP, TRIG, PREALB, PHOS ####[facility] [address] [address]Dr. Simona Maravilla AST [Catalytic activity/Vol] 28 U/L Normal 15-37 [facility] Comment on above: Performed By: #### M G, CMP, TRIG, PREALB, PHOS ####[facility] [address] [address]Dr. Simona Maravilla Bilirubin [Mass/Vol] 0.3 mg/dL Normal 0.2-1.0 [facility] Comment on above: Performed By: #### M G, CMP, TRIG, PREALB, PHOS ####[facility] [address] [address]Dr. Simona Maravilla Calcium [Mass/Vol] 9.0 mg/dL Normal 8.5-10.1 [facility] Comment on above: Performed By: #### M G, CMP, TRIG, PREALB, PHOS ####[facility] [address] [place], [place] [address]Dr. Simona Maravilla Chloride [Moles/Vol] 104 mmol/L Normal 98-107 [facility] Comment on above: Performed By: #### M G, CMP, TRIG, PREALB, PHOS ####[facility] [address] [place], [place] [address]Dr. Simona Maravilla CO2 [Moles/Vol] 24.3 mmol/L Normal 21.0-32.0 [facility] Comment on above: Performed By: #### M G, CMP, TRIG, PREALB, PHOS ####[facility] [address] [address]Dr. Simona Maravilla Creatinine [Mass/Vol] 0.65 mg/dL Critically low 0.70-1.30 [facility] Comment on above: Performed By: #### M G, CMP, TRIG, PREALB, PHOS ####[facility] [address] [address]Dr. Simona Maravilla EGFR-AF SAUDI ARABIAN >60 Normal >=60 [facility] Comment on above: Performed By: #### M G, CMP, TRIG, PREALB, PHOS ####[facility] [address] [address]Dr. Simona Maravilla EGFR-NON AF SAUDI ARABIAN >60 Normal >=60 [facility] Comment on above: Performed By: #### M G, CMP, TRIG, PREALB, PHOS ####[facility] [address] [address]Dr. Simona Maravilla Globulin (S) [Mass/Vol] 3.4 g/dL Normal [facility] Comment on above: Performed By: #### M G, CMP, TRIG, PREALB, PHOS ####[facility] [address] [address]Dr. Kamilalan Maravilla Glucose [Mass/Vol] 90 mg/dL Normal 74-106 [facility] Comment on above: Performed By: #### M G, CMP, TRIG, PREALB, PHOS ####[facility] [address] [place], [place] [address]Dr. Simona Maravilla Potassium [Moles/Vol] 4.0 mmol/L Normal 3.5-5.1 [facility] Comment on above: Performed By: #### M G, CMP, TRIG, PREALB, PHOS ####[facility] [address] [place], [place] [address]Dr. Kamilalan Maravilla Protein [Mass/Vol] 7.4 g/dL Normal 6.4-8.2 [facility] Comment on above: Performed By: #### M G, CMP, TRIG, PREALB, PHOS ####[facility] [address] [address]Dr. Kamilalan Maravilla Sodium [Moles/Vol] 137 mmol/L Normal 136-145 [facility] Comment on above: Performed By: #### M G, CMP, TRIG, PREALB, PHOS ####[facility] [address] [address]Dr. Kamilalan Maravilla Urea nitrogen [Mass/Vol] 13.0 mg/dL Normal 7.0-18.0 [facility] Comment on above: Performed By: #### M G, CMP, TRIG, PREALB, PHOS ####[facility] [address] [address]Dr. Kamilalan Maravilla Urea nitrogen/Creatinine [Mass ratio] 20.0 mg/mg Normal [facility] Comment on above: Performed By: #### M G, CMP, TRIG, PREALB, PHOS ####[facility] [address] [address]DrKali Maravilla TRIGLYCERIDEon 09-19-2021 Triglyceride [Mass/Vol] 77 mg/dL Normal <=150 [facility] Comment on above: Performed By: #### M G, CMP, TRIG, PREALB, PHOS ####[facility] [address] [id number]. Simona Maravilla PREALBUMINon 08-31-2021 Prealbumin [Mass/Vol] 20 mg/dL Normal 12-34 [facility] Comment on above: Performed By: #### P REALBL #### [facility] [address] [place] [address] Dr. Simona Maravilla CBC AUTO DIFFon 08-29-2021 BASO # 0.1 103/ul Normal 0.0-0.1 [facility] Comment on above: Performed By: #### C BC #### [facility] [address] [place] [address] Dr. Simona Maravilla Basophils/100 WBC (Bld) 1.3 % Normal 0.2-2.0 [facility] Comment on above: Performed By: #### C BC #### [facility] [address] [place] [address] Dr. Simona Maravilla EO # 0.3 103/ul Normal 0.0-0.7 [facility] Comment on above: Performed By: #### C BC #### [facility] [address] [place] [address] Dr. Simona Maravilla Eosinophils/100 WBC (Bld) 5.0 % Normal 0.9-7.0 [facility] Comment on above: Performed By: #### C BC #### [facility] [address] [place] [address] Dr. Simona Maravilla Erythrocyte distribution width (RBC) [Ratio] 22.9 % Critically high 11.0-15.0 [facility] Comment on above: Performed By: #### C BC #### [facility] [address] [place] [address] Dr. Simona Maravilla Hematocrit (Bld) [Volume fraction] 50.1 % Normal 42.0-54.0 [facility] Comment on above: Performed By: #### C BC #### [facility] [address] [place] [address] Dr. Simona Maravilla Hemoglobin (Bld) [Mass/Vol] 14.4 g/dL Normal 14.0-18.0 [facility] Comment on above: Performed By: #### C BC #### [facility] [address] [place] [address] Dr. Simona Maravilla IG # 0.03 10e3/ul Normal 0.00-0.03 [facility] Comment on above: Performed By: #### C BC #### [facility] [address] [place] [address] Dr. Simona Maravilla IG % 0.4 % Normal 0.0-0.5 [facility] Comment on above: Performed By: #### C BC #### [facility] [address] [place] [address] Dr. Simona Maravilla LYMPH # 2.0 103/ul Normal 1.2-3.8 [facility] Comment on above: Performed By: #### C BC #### [facility] [address] [place] [address] Dr. Simona Maravilla Lymphocytes/100 WBC (Bld) 29.7 % Normal 20.5-60.0 [facility] Comment on above: Performed By: #### C BC #### [facility] [address] [place] [address] Dr. Simona Maravilla MANUAL DIFF REQ NO Normal [facility] Comment on above: Performed By: #### C BC #### [facility] [address] [place] [address] Dr. Simona Maravilla MCH (RBC) [Entitic mass] 21.6 pg Critically low 25.9-34.0 [facility] Comment on above: Performed By: #### C BC #### [facility] [address] [place] [address] Dr. Simona Maravilla MCHC (RBC) [Mass/Vol] 28.7 g/dL Critically low 29.9-35.2 [facility] Comment on above: Result Comment: slig ht hyopchromia Performed By: #### C BC #### [facility] [address] [place] [address] Dr. Simona Maravilla MCV (RBC) [Entitic vol] 75.0 fL Critically low 80.0-94.0 [facility] Comment on above: Performed By: #### C BC #### [facility] [address] [place] [address] Dr. Simona Maravilla MONO # 0.7 103/ul Normal 0.3-0.8 [facility] Comment on above: Performed By: #### C BC #### [facility] [address] [place] [address] Dr. Simona Maravilla Monocytes/100 WBC (Bld) 10.1 % Normal 1.7-12.0 [facility] Comment on above: Performed By: #### C BC #### [facility] [address] [place] [address] Dr. Simona Maravilla NEUT # 3.7 103/ul Normal 1.4-6.5 [facility] Comment on above: Performed By: #### C BC #### [facility] [address] [place] [address] Dr. Simona Maravilla Neutrophils/100 WBC (Bld) 53.5 % Normal 43.0-75.0 [facility] Comment on above: Performed By: #### C BC #### [facility] [address] [place] [address] Dr. Simona Maravilla Platelet mean volume (Bld) [Entitic vol] 0.0 fL Critically low 9.5-13.5 [facility] Comment on above: Result Comment: unab le to calculate mpv Performed By: #### C BC #### [facility] [address] [place] [address] Dr. Simona Maravilla PLT 287 103/ul Normal 150-450 [facility] Comment on above: Performed By: #### C BC #### [facility] [address] [address] [address] Simona Maravilla RBC 6.68 106/ul Critically high 4.70-6.10 [facility] Comment on above: Performed By: #### C BC #### [facility] [address] [address] [address] Simona Maravilla WBC 6.8 103/ul Normal 4.0-11.0 [facility] Comment on above: Performed By: #### C BC #### [facility] [address] [address] [address] Simona Maravilla MAGNESIUMon 08-29-2021 Magnesium [Mass/Vol] 2.0 mg/dL Normal 1.8-2.4 [facility] Comment on above: Performed By: #### C MP, MG, TRIG, PHOS ####[facility] [address] [address]DrKali Maravilla PHOSPHORUSon 08-29-2021 Phosphate [Mass/Vol] 4.1 mg/dL Normal 2.6-4.7 [facility] Comment on above: Performed By: #### C MP, MG, TRIG, PHOS ####[facility] [address] [address]DrKali Maravilla PROF 14(COMP METB)on 022 Albumin [Mass/Vol] 4.1 g/dL Normal 3.4-5.0 [facility] Comment on above: Performed By: #### C MP, MG, TRIG, PHOS ####[facility] [address] [address]DrKali Maravilla Albumin/Globulin [Mass ratio] 1.1 {ratio} Normal [facility] Comment on above: Performed By: #### C MP, MG, TRIG, PHOS ####[facility] [address] [address]DrKali Maravilla ALP [Catalytic activity/Vol] 141 U/L Critically high 46-116 [facility] Comment on above: Performed By: #### C MP, MG, TRIG, PHOS ####[facility] [address] [address]Dr. Simona Maravilla ALT [Catalytic activity/Vol] 27 U/L Normal 16-63 [facility] Comment on above: Performed By: #### C MP, MG, TRIG, PHOS ####[facility] [address] [address]Dr. Simona Maravilla Anion gap [Moles/Vol] 14.1 mmol/L Normal [facility] Comment on above: Performed By: #### C MP, MG, TRIG, PHOS ####[facility] [address] [place], [place] [address]Dr. Simona Maravilla AST [Catalytic activity/Vol] 33 U/L Normal 15-37 [facility] Comment on above: Performed By: #### C MP, MG, TRIG, PHOS ####[facility] [address] [place], [place] [address]Dr. Simona Maravilla Bilirubin [Mass/Vol] 0.4 mg/dL Normal 0.2-1.0 [facility] Comment on above: Performed By: #### C MP, MG, TRIG, PHOS ####[facility] [address] [place], [place] [address]Dr. Simona Maravilla Calcium [Mass/Vol] 8.7 mg/dL Normal 8.5-10.1 [facility] Comment on above: Performed By: #### C MP, MG, TRIG, PHOS ####[facility] [address] [place], [place] [address]Dr. Simona Maravilla Chloride [Moles/Vol] 108 mmol/L Critically high 98-107 [facility] Comment on above: Performed By: #### C MP, MG, TRIG, PHOS ####[facility] [address] [place], [place] [address]Dr. Simona Maravilla CO2 [Moles/Vol] 23.2 mmol/L Normal 21.0-32.0 [facility] Comment on above: Performed By: #### C MP, MG, TRIG, PHOS ####[facility] [address] [place], [place] [address]Dr. Simona Maravilla Creatinine [Mass/Vol] 0.79 mg/dL Normal 0.70-1.30 [facility] Comment on above: Performed By: #### C MP, MG, TRIG, PHOS ####[facility] [address] [address]Dr. Simona Maravilla EGFR-AF SAUDI ARABIAN >60 Normal >=60 [facility] Comment on above: Performed By: #### C MP, MG, TRIG, PHOS ####[facility] [address] [address]Dr. Simona Maravilla EGFR-NON AF SAUDI ARABIAN >60 Normal >=60 [facility] Comment on above: Performed By: #### C MP, MG, TRIG, PHOS ####[facility] [address] [place], [place] [address]Dr. Simona Maravilla Globulin (S) [Mass/Vol] 3.9 g/dL Normal [facility] Comment on above: Performed By: #### C MP, MG, TRIG, PHOS ####[facility] [address] [place], [place] [address]Dr. Simona Maravilla Glucose [Mass/Vol] 75 mg/dL Normal 74-106 [facility] Comment on above: Performed By: #### C MP, MG, TRIG, PHOS ####[facility] [address] [address]Dr. Simona Maravilla Potassium [Moles/Vol] 4.3 mmol/L Normal 3.5-5.1 [facility] Comment on above: Performed By: #### C MP, MG, TRIG, PHOS ####[facility] [address] [place], [place] [address]Dr. Simona Maravilla Protein [Mass/Vol] 8.0 g/dL Normal 6.4-8.2 [facility] Comment on above: Performed By: #### C MP, MG, TRIG, PHOS ####[facility] [address] [place], [place] [address]Dr. Simona Maravilla Sodium [Moles/Vol] 141 mmol/L Normal 136-145 [facility] Comment on above: Performed By: #### C MP, MG, TRIG, PHOS ####[facility] [address] [id number]. Simona Maravilla Urea nitrogen [Mass/Vol] 14.0 mg/dL Normal 7.0-18.0 [facility] Comment on above: Performed By: #### C MP, MG, TRIG, PHOS ####[facility] [address] [address]Dr. Simona Maravilla Urea nitrogen/Creatinine [Mass ratio] 17.7 mg/mg Normal [facility] Comment on above: Performed By: #### C MP, MG, TRIG, PHOS ####[facility] [address] [address]Dr. Simona Maravilla TRIGLYCERIDEon 08-29-2021 Triglyceride [Mass/Vol] 135 mg/dL Normal <=150 [facility] Comment on above: Performed By: #### C MP, MG, TRIG, PHOS ####[facility] [address] [address]Dr. Simona Maravilla XR UPPER GI SINGLE CONTRASTo [...] junction narrowing related to stricture or stenosis. Hand Tier: CHRISTIE Transcribe Date/Time: Aug 25 2021 10:13A Dictated by : DIRK BLANKENSHIP MD This examination was interpreted and the report reviewed and electronically signed by: DIRK BLANKENSHIP MD on Aug 25 2021 10:14AM EST [id number] CN [facility] EGD - THERAPEUTIC, EUS, OR T UBE INTERVENTIONSon 08-08-2021 [facility] Comprehensive metabolic 2000 panelon 07-29-2021 Albumin [Mass/Vol] 4.0 g/dL 3.9 - 4.9 g/dL [facility] ALP [Catalytic activity/Vol] 161 U/L High 38 - 113 U/L [facility] ALT [Catalytic activity/Vol] 35 U/L 10 - 54 U/L [facility] Anion gap [Moles/Vol] 9 mmol/L 9 - 18 mmol/L [facility] AST [Catalytic activity/Vol] 38 U/L 14 - 40 U/L [facility] Bilirubin [Mass/Vol] 0.3 mg/dL 0.2 - 1 .3 mg/dL [facility] Calcium [Mass/Vol] 8.6 mg/dL 8.5 - 10. 2 mg/dL [facility] Chloride [Moles/Vol] 106 mmol/L High 97 - 10 5 mmol/L [facility] CO2 [Moles/Vol] 25 mmol/L 22 - 30 mmol/L [facility] Creatinine [Mass/Vol] 0.67 mg/dL Low 0.73 - 1.22 mg/dL [facility] Estimated Glomerular Filtration Rate 119 mL/min/1.73m >=60 mL/min/1.73m [facility] Glucose [Mass/Vol] 76 mg/dL 74 - 99 mg/dL [facility] Potassium [Moles/Vol] 3.6 mmol/L Low 3.7 - 5.1 mmol/L [facility] Protein [Mass/Vol] 6.7 g/dL 6.3 - 8.0 g/dL [facility] Sodium [Moles/Vol] 140 mmol/L 136 - 144 mmol/L [facility] Urea nitrogen [Mass/Vol] 5 mg/dL Low 9 - 24 mg/dL [facility] IRON + TIBCon 07-29-2021 Iron [Mass/Vol] 128 ug/dL 41 - 186 ug/dL [facility] Iron binding capacity [Mass/Vol] 441 ug/dL High 232 - 386 ug/dL [facility] Iron/TIBC [Molar ratio] 29 % 15 - 57 % [facility] PREALBUMIN BLDon 07-29-2021 Prealbumin [Mass/Vol] 15 mg/dL Low 17 - 36 mg/dL [facility] Vitamin B3on 07-11-2021 Niacin (Vitamin B3) 1.88 ug/mL Normal 0.50-8.45 [facility] Comment on above: Result Comment: (NOT E) Adult Reference Range > or = 10 years: Normal 0.50 - 8.45 ug/mL Low < 0.50 ug/mL High > 8.45 ug/mL Pediatric Reference Range <10 Years: Normal 0.50 - 8.91 ug/mL Low < 0.50 ug/mL High > 8.91 ug/mL The performance characteristics of the listed assay was validated by [facility]. The [place] FDA has not approved or cleared this test. The results of this assay can be used for clinical diagnosis without FDA approval. [facility] is a CLIA certified, CAP accredited laboratory for performing high complexity assays such as this one. Testing Performed at: [facility] [address] [place] [address] Performed By: #### P T, BMPX, MG, SHARON #### [facility] [address] [place] [address] [id number] [employer]: Helio Reed MD Vitamin B1on 07-07-2021 Vitamin B1 118 nmol/L Normal 70-180 [facility] Comment on above: Result Comment: (NOT [...] developed and its performance characteristics determined by [facility]. It has not been cleared or approved by the [place] Food and Drug Administration. This test was performed in a CLIA certified laboratory and is intended for clinical purposes. Performed By: [facility] [address] [place] [id number] [employer]: Marisol Gray MD Performed By: #### P T, BMPX, MG, SHARON #### [facility] ([facility]) [facility] [place], [place] [id number] [place] [employer]: Helio Reed MD Vitamin B6on 07-06-2021 Vitamin B6 11.9 nmol/L Low 20.0-125.0 [facility] Comment on above: Result Comment: (NOT E) INTERPRETIVE INFORMATION: Vitamin B6 (Pyridoxal 5-Phosphate) Pyridoxal 5'-phosphate measured in a specimen collected following an 8-hour or overnight fast accurately indicates vitamin B6 nutritional status. Non-fasting specimen concentration reflects recent vitamin intake. This test was developed and its performance characteristics determined by [facility]. It has not been cleared or approved by the [place] Food and Drug Administration. This test was performed in a CLIA certified laboratory and is intended for clinical purposes. Performed By: [facility] [address] [place] [id number] [employer]: Marisol Gray MD Performed By: #### P T, BMPX, MG, SHARON #### [address] [id number] [employer]: Helio Reed MD Vitamin Abdoul 07-06-2021 Alpha-Tocopherol 3.0 mg/L Low 5.5-18.0 [facility] Comment on above: Result Comment: (NOT E) This test was developed and its performance characteristics determined by [facility]. It has not been cleared or approved by the [place] Food and Drug Administration. This test was performed in a CLIA certified laboratory and is intended for clinical purposes. Performed By: #### P T, BMPX, MG, SHARON #### [address] [id number] [employer]: Helio Reed MD Gamma-Tocopherol 1.5 mg/L Normal 0.0-6.0 [facility] Comment on above: Result Comment: (NOT E) Performed By: [facility] [address] [place] [id number] Tube Heater: Marisol Gray MD Performed By: #### P T, BMPX, MG, SHARON #### [address] [phone] [employer]: Helio Reed MD Seleniumon 07-05-2021 Selenium 112.6 ug/L Normal 23.0-190.0 [facility] Comment on above: Result Comment: (NOT [...] developed and its performance characteristics determined by [facility]. It has not been cleared or approved by the US Food and Drug Administration. This test was performed in a CLIA certified laboratory and is intended for clinical purposes. Performed By: [facility] [address] [place] [address] T[employer] Heater: Marisol Gray MD Performed By: #### P T, BMPX, MG, SHARON #### [facility] [address] [place] [address] [employer]: Helio Reed MD VITAMIN Aon 07-03-2021 Interpretation and review of laboratory results Abnormal [employer] RETINYL PALMITATE <0.02 0.00 - 0.1 0 mg/L [employer] Vitamin A 0.15 mg/L Low 0.30 - 1.20 mg/L [employer] Vitamin A, Interp See Note [facility] Comment on above: (NOTE) Retinol greater than 0.3 mg/L is typically associated with adequate liver stores in adults, and is within normal limits for children. Retinol less than 0.10 mg/L may indicate depleted liver stores and severe deficiency. This test was developed and its performance characteristics determined by [facility]. It has not been cleared or approved by the [place] Food and Drug Administration. This test was performed in a CLIA certified laboratory and is intended for clinical purposes. Performed By: [facility] [address] [id number] Tube Heater: Marisol Gray MD [facility] Vitamin Aon 07-03-2021 Interpretation See Note Normal [facility] Comment on above: Result Comment: (NOT E) Retinol greater than 0.3 mg/L is typically associated with adequate liver stores in adults, and is within normal limits for children. Retinol less than 0.10 mg/L may indicate depleted liver stores and severe deficiency. This test was developed and its performance characteristics determined by [facility]. It has not been cleared or approved by the US Food and Drug Administration. This test was performed in a CLIA certified laboratory and is intended for clinical purposes. Performed By: [facility] [address] [id number] [employer] He[employer]: Marisol Gray MD Performed By: #### P T, BMPX, MG, SHARON #### [address] [phone] [employer]: Helio Reed MD Retinol (Vitamin A) 0.15 mg/L Low 0.30-1.20 [facility] Comment on above: Performed By: #### P T, BMPX, MG, SHARON #### [facility] [address] [place] [address] [phone] [employer]: Helio Reed MD Retinyl Palmitate <0.02 Normal 0.00-0.[address] [facility] Comment on above: Performed By: #### P T, BMPX, MG, SHARON #### [facility] [address] [place] [address] [phone] [employer]: Helio Reed MD Basic Metabolic Panelon 06-14 Anion gap [Moles/Vol] 10 mmol/L 9 - 17 mmol/L [facility] Calcium [Mass/Vol] 9.2 mg/dL 8.6 - 10. 4 mg/dL [facility] Chloride [Moles/Vol] 104 mmol/L 98 - 10 7 mmol/L [facility] CO2 [Moles/Vol] 22 mmol/L 20 - 31 mmol/L [facility] Creatinine [Mass/Vol] 0.4 mg/dL Low 0.70 - 1.20 mg/dL [facility] [employer] GFR >60 >60 mL/min [facility] [employer] GFR Non- >60 >60 mL/min [facility]/1.73 sq M.predicted MDRD (S/P/Bld) [Vol rate/Area] [facility] Comment on above: Average GFR for 40-4 9 years old: 99 mL/min/1.73sq m Chronic Kidney Disease: <60 mL/min/1.73sq m Kidney failure: <15 mL/min/1.73sq m eGFR calculated using average adult body mass. Additional eGFR calculator available at: http://www.[employer]_crcl_2012.htm Glucose [Mass/Vol] 106 mg/dL High 70 - 99 mg/dL [facility] [employer] Interpretation and review of laboratory results Abnormal [facility] [employer] Potassium [Moles/Vol] 4.5 mmol/L 3.7 - 5.3 mmol/L [facility] [employer] Sodium [Moles/Vol] 136 mmol/L 135 - 144 mmol/L [facility] [employer] Urea nitrogen (BldV) [Mass/Vol] 9 mg/dL 6 - 20 mg/dL [facility] [employer] Basic Metabolic Profon 07-02 (cont.) Normal [facility] Comment on above: Result Comment: Aver age GFR for 40-49 years old: 99 mL/min/1.73sq m Chronic Kidney Disease: <60 mL/min/1.73sq m Kidney failure: <15 mL/min/1.73sq m eGFR calculated using average adult body mass. Additional eGFR calculator available at: http://www.[employer]_crcl_2012.htm Performed By: #### P T, BMPX, MG, SHARON #### [employer] (roll[employer]) [address] [place] [address] [employer]: Helio Reed MD Anion gap [Moles/Vol] 10 mmol/L Normal 12-31 [facility] Comment on above: Performed By: #### P T, BMPX, MG, SHARON #### [employer] (roll.[employer]) [address] [place] [address] [employer]: Helio Reed MD Calcium [Mass/Vol] 9.2 mg/dL Normal 8.6-10.4 [facility] Comment on above: Performed By: #### P T, BMPX, MG, SHARON #### [facility] [address] [place] [address] [employer]: Helio Reed MD Chloride [Moles/Vol] 104 mmol/L Normal 98-107 [facility] Comment on above: Performed By: #### P T, BMPX, MG, SHARON #### [facility] [address] [place] [address] [employer]: Helio Reed MD CO2 [Moles/Vol] 22 mmol/L Normal 20-31 [facility] Comment on above: Performed By: #### P T, BMPX, MG, SHARON #### [facility] [address] [place] [address] [employer]: Helio Reed MD Creatinine [Mass/Vol] 0.40 mg/dL Low 0.70-1.20 [facility] Comment on above: Performed By: #### P T, BMPX, MG, SHARON #### [facility] [address] [place] [address] [employer]: Helio Reed MD GFR, Amer >60 Normal >60 [facility] Comment on above: Performed By: #### P T, BMPX, MG, SHARON #### [facility] [address] [place] [address] [employer]: Helio Reed MD GFR,non Amer >60 Normal >60 [facility] Comment on above: Performed By: #### P T, BMPX, MG, SHARON #### [facility] [address] [place] [address] [employer]: Helio Reed MD Glucose [Mass/Vol] 106 mg/dL High 70-99 [facility] Comment on above: Performed By: #### P T, BMPX, MG, SHARON #### [employer] (roll[employer]) [address] [place] [address] [employer]: Helio Reed MD Potassium [Moles/Vol] 4.5 mmol/L Normal 3.7-5.3 [facility] Comment on above: Performed By: #### P T, BMPX, MG, SHARON #### [employer] (roll.[employer]) [address] [place] [address] [employer]: Helio Reed MD Sodium [Moles/Vol] 136 mmol/L Normal 135-144 [facility] Comment on above: Performed By: #### P T, BMPX, MG, SHARON #### [facility] [address] [place] [address] [phone] [employer]: Helio Reed MD Urea nitrogen [Mass/Vol] 9 mg/dL Normal 6-20 [facility] Comment on above: Performed By: #### P T, BMPX, MG, SHARON #### [employer] ([employer]) [address] [place] [address] [employer]: Helio Reed MD Calcium, Ionicon 07-02-2021 Calcium [Moles/Vol] 1.17 mmol/L Normal 1.13-1.33 [facility] Comment on above: Performed By: #### P T, BMPX, MG, SHARON #### [employer] (roll[employer]) [address] [place] [address] [employer]: Helio Reed MD Calcium, Ionizedon Calcium [Moles/Vol] 1.17 mmol/L 1.13 - 1 .33 mmol/L [facility] Magnesiumon 07-02-2021 Magnesium [Mass/Vol] 2.1 mg/dL Normal 1.6-2.6 [facility] Comment on above: Performed By: #### P T, BMPX, MG, SHARON #### [facility] [address] [place], [place] [phone] [employer]: Helio Reed MD Magnesium [Mass/Vol] 2.1 mg/dL 1.6 - 2 .6 mg/dL [facility] [employer] No Panel Informationon 07-02 [facility] [employer] Phosphoruson 07-02-2021 Phosphate [Mass/Vol] 2.9 mg/dL 2.5 - 4 .5 mg/dL [facility] Phosphorus, Inorg.on 022 Phosphorus, Inorg. 2.9 mg/dL Normal 2.5-4.5 [facility] Comment on above: Performed By: #### P T, BMPX, MG, SHARON #### [employer] (roll.to) [address] [place] [address] [employer]: Helio Reed MD TPN PROFILEon 07-01-2021 Anion gap [Moles/Vol] 11 mmol/L 9 - 17 mmol/L [facility] Calcium [Mass/Vol] 8.6 mg/dL 8.6 - 10. 4 mg/dL [facility] [employer] Chloride [Moles/Vol] 109 mmol/L High 98 - 10 7 mmol/L [facility] CO2 [Moles/Vol] 22 mmol/L 20 - 31 mmol/L [facility] Creatinine [Mass/Vol] 0.41 mg/dL Low 0.70 - 1.20 mg/dL [facility] [employer] GFR >60 >60 mL/min [facility] [employer] GFR Non- >60 >60 mL/min [facility] GFR/1.73 sq M.predicted MDRD (S/P/Bld) [Vol rate/Area] [facility] [employer] Comment on above: Average GFR for 40-4 9 years old: 99 mL/min/1.73sq m Chronic Kidney Disease: <60 mL/min/1.73sq m Kidney failure: <15 mL/min/1.73sq m eGFR calculated using average adult body mass. Additional eGFR calculator available at: http://www.[employer]/multiple_crcl_2012.htm Glucose [Mass/Vol] 105 mg/dL High 70 - 99 mg/dL [facility] Interpretation and review of laboratory results Abnormal [facility] Magnesium [Mass/Vol] 2.2 mg/dL 1.6 - 2 .6 mg/dL [facility] Phosphate [Mass/Vol] 2.6 mg/dL 2.5 - 4 .5 mg/dL [facility] Potassium [Moles/Vol] 3.9 mmol/L 3.7 - 5.3 mmol/L [facility] Sodium [Moles/Vol] 142 mmol/L 135 - 144 mmol/L [facility] Triglyceride [Mass/Vol] 74 mg/dL <150 [facility] Comment on above: Triglyceride Guidelines: <150 Desirable 150-199 Borderline 200-499 High >499 Very high Based on AHA Guidelines for fasting triglyceride, January 2012. Urea nitrogen (BldV) [Mass/Vol] 9 mg/dL 6 - 20 mg/dL [facility] TPN Profileon 07-01-2021 (cont.) Normal [facility] Comment on above: Result Comment: Aver age GFR for 40-49 years old: 99 mL/min/1.73sq m Chronic Kidney Disease: <60 mL/min/1.73sq m Kidney failure: <15 mL/min/1.73sq m eGFR calculated using average adult body mass. Additional eGFR calculator available at: http://www.[employer]/multiple_crcl_2012.htm Performed By: #### P T, BMPX, MG, SHARON #### [employer] (roll[employer]) [address] [place] [phone] [employer]: Helio Reed MD Anion gap [Moles/Vol] 11 mmol/L Normal 9-17 [facility] Comment on above: Performed By: #### P T, BMPX, MG, SHARON #### [employer] (roll.to) [address] [place] [address] [employer]: Helio Reed MD Calcium [Mass/Vol] 8.6 mg/dL Normal 8.6-10.4 [facility] Comment on above: Performed By: #### P T, BMPX, MG, SHARON #### [employer] (roll.to) [address] [place] [address] [employer]: Helio Reed MD Chloride [Moles/Vol] 109 mmol/L High 98-107 [facility] Comment on above: Performed By: #### P T, BMPX, MG, SHARON #### [facility] [address] [place] [address] [employer]: Helio Reed MD CO2 [Moles/Vol] 22 mmol/L Normal 20-31 [facility] Comment on above: Performed By: #### P T, BMPX, MG, SHARON #### [facility] [address] [place] [address] [employer]: Helio Reed MD Creatinine [Mass/Vol] 0.41 mg/dL Low 0.70-1.20 [facility] Comment on above: Performed By: #### P T, BMPX, MG, SHARON #### [facility] [address] [place] [address] [employer]: Helio Reed MD GFR, Amer >60 Normal >60 [facility] Comment on above: Performed By: #### P T, BMPX, MG, SHARON #### [facility] [address] [place] [address] [employer]: Helio Reed MD GFR,non Amer >60 Normal >60 [facility] Comment on above: Performed By: #### P T, BMPX, MG, SHARON #### [facility] [address] [place] [address] [employer]: Helio Reed MD Glucose [Mass/Vol] 105 mg/dL High 70-99 [facility] Comment on above: Performed By: #### P T, BMPX, MG, SHARON #### [facility] [address] [place] [address] [employer]: Helio Reed MD Magnesium [Mass/Vol] 2.2 mg/dL Normal 1.6-2.6 [facility] Comment on above: Performed By: #### P T, BMPX, MG, SHARON #### [facility] [address] [place] [address] [employer]: Helio Reed MD Phosphorus, Inorg. 2.6 mg/dL Normal 2.5-4.5 [facility] Comment on above: Performed By: #### P T, BMPX, MG, SHARON #### [facility] [address] [place] [address] [employer]: Hleio Reed MD Potassium [Moles/Vol] 3.9 mmol/L Normal 3.7-5.3 [facility] Comment on above: Performed By: #### P T, BMPX, MG, SHARON #### [facility] [address] [place] [address] [employer]: Helio Reed MD Sodium [Moles/Vol] 142 mmol/L Normal 135-144 [facility] Comment on above: Performed By: #### P T, BMPX, MG, SHARON #### [facility] [address] [place] [address] [employer]: Helio Reed MD Triglyceride [Mass/Vol] 74 mg/dL Normal <150 [facility] Comment on above: Result Comment: Triglyceride Guidelines: <150 Desirable 150-199 Borderline 200-499 High >499 Very high Based on AHA Guidelines for fasting triglyceride, January 2012. Performed By: #### P T, BMPX, MG, SHARON #### [facility] [address] [place] [address] [employer]: Helio Reed MD Urea nitrogen [Mass/Vol] 9 mg/dL Normal 6-20 [facility] Comment on above: Performed By: #### P T, BMPX, MG, SHARON #### [facility] [address] [place] [address] [employer]: Helio Reed MD Vitamin D 25 Hydroxyon 07-01 Interpretation and review of laboratory results Abnormal [facility] Vit D, 25-Hydroxy <6.0 Low >29.9 ng/mL [facility] Comment on above: Reference Range: Vitamin D status Range Deficiency <20 ng/mL Mild Deficiency 20-30 ng/mL Sufficiency 30-100 ng/mL Toxicity >100 ng/mL [facility] Vitamin D 25 OHon 07-01-2021 Vitamin D 25 OH <6.0 Low >29.9 [facility] Comment on above: Result Comment: Reference Range: Vitamin D status Range Deficiency <20 ng/mL Mild Deficiency 20-30 ng/mL Sufficiency 30-100 ng/mL Toxicity >100 ng/mL Performed By: #### P T, BMPX, MG, SHARON #### [employer] (roll.to) [address] [place] [address] [employer]: Helio Reed MD B12/Folate Panelon 2 Cobalamin (Vitamin B12) [Mass/Vol] 505 pg/mL Normal 232-1245 [facility] Comment on above: Performed By: #### P T, BMPX, MG, SHARON #### [employer] (roll.[employer]) [address] [place] [address] [employer]: Helio Reed MD Folic Acid 16.1 ng/mL Normal >4.8 [facility] Comment on above: Performed By: #### P T, BMPX, MG, SHARON #### [facility] [address] [place] [address] [employer]: Helio Reed MD Basic Metab w/rfx MGon 06-30 (cont.) Normal [facility] Comment on above: Result Comment: Aver age GFR for 40-49 years old: 99 mL/min/1.73sq m Chronic Kidney Disease: <60 mL/min/1.73sq m Kidney failure: <15 mL/min/1.73sq m eGFR calculated using average adult body mass. Additional eGFR calculator available at: http://www.[employer].com/multiple_crcl_2012.htm Performed By: #### P T, BMPX, MG, SHARON #### [facility] [address] [place] [address] [employer]: Helio Reed MD Anion gap [Moles/Vol] 10 mmol/L Normal 9-17 [facility] Comment on above: Performed By: #### P T, BMPX, MG, SHARON #### [facility] [address] [place] [address] [employer]: Helio Reed MD Calcium [Mass/Vol] 8.6 mg/dL Normal 8.6-10.4 [facility] Comment on above: Performed By: #### P T, BMPX, MG, SHARON #### [facility] [address] [place] [address] [employer]: Helio Reed MD Chloride [Moles/Vol] 107 mmol/L Normal 98-107 [facility] Comment on above: Performed By: #### P T, BMPX, MG, SHARON #### [facility] [address] [place] [address] [employer]: Helio Reed MD CO2 [Moles/Vol] 23 mmol/L Normal 20-31 [facility] Comment on above: Performed By: #### P T, BMPX, MG, SHARON #### [facility] [address] [place] [address] [employer]: Helio Reed MD Creatinine [Mass/Vol] 0.49 mg/dL Low 0.70-1.20 [facility] Comment on above: Performed By: #### P T, BMPX, MG, SHARON #### [facility] [address] [place] [address] [employer]: Helio Reed MD GFR, Amer >60 Normal >60 [facility] Comment on above: Performed By: #### P T, BMPX, MG, SHARON #### [facility] [address] [place] [address]06 [employer]: Helio Reed MD GFR,non Amer >60 Normal >60 [facility] Comment on above: Performed By: #### P T, BMPX, MG, SHARON #### [facility] [address] [place] [address] [employer]: Helio Reed MD Glucose [Mass/Vol] 74 mg/dL Normal 70-99 [facility] Comment on above: Performed By: #### P T, BMPX, MG, SHARON #### [facility] [address] [place] [address] [employer]: Helio Reed MD Potassium [Moles/Vol] 4.0 mmol/L Normal 3.7-5.3 [facility] Comment on above: Performed By: #### P T, BMPX, MG, SHARON #### [facility] [address] [place] [address]71 [employer]: Helio Reed MD Sodium [Moles/Vol] 140 mmol/L Normal 135-144 [facility] Comment on above: Performed By: #### P T, BMPX, MG, SHARON #### [facility] [address] [place] [address] [employer]: Helio Reed MD Urea nitrogen [Mass/Vol] 8 mg/dL Normal 6-20 [facility] Comment on above: Performed By: #### P T, BMPX, MG, SHARON #### [facility] [address] [place] [address] [employer]: Helio Reed MD Basic Metabolic Panel w/ Ref brenda to MGon 06-30-2021 Anion gap [Moles/Vol] 10 mmol/L 9 - 17 mmol/L [facility] Calcium [Mass/Vol] 8.6 mg/dL 8.6 - 10. 4 mg/dL [facility] Chloride [Moles/Vol] 107 mmol/L 98 - 10 7 mmol/L [facility] CO2 [Moles/Vol] 23 mmol/L 20 - 31 mmol/L [facility] Creatinine [Mass/Vol] 0.49 mg/dL Low 0.70 - 1.20 mg/dL [facility] GFR >60 >60 mL/min [facility] GFR Non- >60 >60 mL/min [facility] GFR/1.73 sq M.predicted MDRD (S/P/Bld) [Vol rate/Area] [facility] Comment on above: Average GFR for 40-4 9 years old: 99 mL/min/1.73sq m Chronic Kidney Disease: <60 mL/min/1.73sq m Kidney failure: <15 mL/min/1.73sq m eGFR calculated using average adult body mass. Additional eGFR calculator available at: http://www.[employer]/multiple_crcl_2011.htm Glucose [Mass/Vol] 74 mg/dL 70 - 99 mg/dL [facility] Interpretation and review of laboratory results Abnormal [facility] Potassium [Moles/Vol] 4.0 mmol/L 3.7 - 5.3 mmol/L [facility] Sodium [Moles/Vol] 140 mmol/L 135 - 144 mmol/L [facility] Urea nitrogen (BldV) [Mass/Vol] 8 mg/dL 6 - 20 mg/dL [facility] CBC with Auto Differentialon 06-30-2021 Absolute Eos # 0.17 [facility] th Absolute Immature Granulocyte 0.00 [facility] Absolute Lymph # 1.25 [facility] alth Absolute [place]borne # 0.46 [facility] Basophils (Bld) [#/Vol] 0.06 10*3/uL [facility] Basophils/100 WBC (Bld) 1 % 0 - 2 % [facility] Eosinophils/100 WBC (Bld) 3 % 1 - 4 % [facility] Hematocrit (Bld) [Volume fraction] 41.7 % 40.7 - 50.3 % [facility] Hemoglobin.gastroint estinal spec 1 Ql (Stl) 10.7 g/dL Low 13.0 - 17.0 g/dL [facility] Immature granulocytes/100 WBC (Bld) 0 % 0 [facility] Interpretation and review of laboratory results Abnormal [facility] Lymphocytes/100 WBC (Bld) 22 % Low 24 - 43 % [facility] MCH (RBC) [Entitic mass] 18.7 pg Low 25.2 - 33.5 pg [facility] MCHC (RBC) [Mass/Vol] 25.7 g/dL Low 28.4 - 34.8 g/dL [facility] MCV (RBC) [Entitic vol] 73.0 fL Low 82.6 - 102.9 fL [facility] Monocytes/100 WBC (Bld) 8 % 3 - 12 % [facility] Morphology Ezra (Bld) [Interp] ANISOCYTOSIS PRESENT [facility] h Morphology Ezra (Bld) [Interp] MICROCYTOSIS PRESENT [facility]ology Ezra (Bld) [Interp] HYPOCHROMIA PRESENT [facility] Morphology [employer]ra (Bld) [Interp] 1+ ELLIPTOCYTES [facility] [employer] (Bld) [Interp] 1+ TEARDROPS [facility] NRBC Automated 0.0 0.0 per 100 WBC [facility] Platelets (Bld) [#/Vol] See Reflexed IPF Result [facility] RBC (Bld) [#/Vol] 5.71 10*6/uL 4.21 - 5.7 7 m/uL [facility] Segmented neutrophils/100 WBC (Bld) 66 % High 36 - 65 % [facility] Segs Absolute 3.76 [facility] h WBC (Bld) [#/Vol] 5.7 10*3/uL [facility] CBC with Diffon 06-30-2021 Abs. Basophil 0.06 k/uL Normal 0.00-0.20 [facility] Comment on above: Performed By: #### I PF, CDP #### [facility] [address] [place] [address] [phone] [employer]: Helio Reed MD Abs.Imm.Granulocyte 0.00 k/uL Normal 0.00-0.30 [facility] Comment on above: Performed By: #### I PF, CDP #### [facility] [facility] [address] [place] [address] [id number] [employer]: Helio Reed MD Abs.Neutrophil (Seg) 3.76 k/uL Normal 1.50-8.10 [facility] Comment on above: Performed By: #### I PF, CDP #### [address] [address] [employer]: Helio Reed MD Basophils/100 WBC (Bld) 1 % Normal 0-2 [facility] Comment on above: Performed By: #### I PF, CDP #### [place] [address] [employer]: Helio Reed MD Eosinophils (Bld) [#/Vol] 0.17 10*3/uL Normal 0.00-0.44 [facility] Comment on above: Performed By: #### I PF, CDP #### [place] [address] [employer]: Helio Reed MD Eosinophils/100 WBC (Bld) 3 % Normal 1-4 [facility] Comment on above: Performed By: #### I PF, CDP #### [address] [address] [employer]: Helio Reed MD Immature granulocytes/100 WBC (Bld) 0 % Normal 0 [facility] Comment on above: Performed By: #### I PF, CDP #### [place] [address] [employer]: Helio Reed MD Lymphocytes (Bld) [#/Vol] 1.25 10*3/uL Normal 1.10-3.70 [facility] Comment on above: Performed By: #### I PF, CDP #### [address] [address] [employer]: Helio Reed MD Lymphocytes/100 WBC (Bld) 22 % Low 24-43 [facility] Comment on above: Performed By: #### I PF, CDP #### [address] [address] [employer]: Helio Reed MD Monocytes (Bld) [#/Vol] 0.46 10*3/uL Normal 0.10-1.20 [facility] Comment on above: Performed By: #### I PF, CDP #### [address] [address] [employer]: Helio Reed MD Monocytes/100 WBC (Bld) 8 % Normal 3-12 [facility] Comment on above: Performed By: #### I PF, CDP #### [address] [address] [employer]: Helio Reed MD Morphology Ezra (Bld) [Interp] ANISOCYTOSIS PRESENT Normal [facility] Comment on above: Result Comment: MICR OCYTOSIS PRESENT HYPOCHROMIA PRESENT 1+ ELLIPTOCYTES 1+ TEARDROPS Performed By: #### I PF, CDP #### [address] [address] [employer]: Helio Reed MD Neutrophil (Seg) 66 % High 36-65 [facility] Comment on above: Performed By: #### I PF, CDP #### [address] [address] [employer]: Helio Reed MD Hematocrit (Bld) [Volume fraction] 41.7 % Normal 40.7-50.3 [facility] Comment on above: Performed By: #### I PF, CDP #### [address] [address] [employer]: Helio Reed MD Hemoglobin (Bld) [Mass/Vol] 10.7 g/dL Low 13.0-17.0 [facility] Comment on above: Performed By: #### I PF, CDP #### [facility] [address] [place] [address] [employer]: Helio Reed MD MCH (RBC) [Entitic mass] 18.7 pg Low 25.2-33.5 [facility] Comment on above: Performed By: #### I PF, CDP #### [address] [address] [employer]: Helio Reed MD MCHC (RBC) [Mass/Vol] 25.7 g/dL Low 28.4-34.8 [facility] Comment on above: Performed By: #### I PF, CDP #### [address] [address] [employer]: Helio Reed MD MCV (RBC) [Entitic vol] 73.0 fL Low 82.6-102.9 [facility] Comment on above: Performed By: #### I PF, CDP #### [address] [address] [employer]: Helio Reed MD NRBC Automated 0.0 per 100 WBC Normal 0.0 [facility] Comment on above: Performed By: #### I PF, CDP #### [address] [address] [employer]: Helio Reed MD Platelet Count See Reflexed IPF Result Normal 138-453 [facility] Comment on above: Performed By: #### I PF, CDP #### [address] [address] [employer]: Helio Reed MD RBC (Bld) [#/Vol] 5.71 10*6/uL Normal 4.21-5.77 [facility] Comment on above: Performed By: #### I PF, CDP #### [address] [address] [employer]: Helio Reed MD WBC (Bld) [#/Vol] 5.7 10*3/uL Normal 3.5-11.3 [facility] Comment on above: Performed By: #### I PF, CDP #### [facility] [address] [place] [address] [employer]: Helio Reed MD COVID-19, Rapidon 06-30-2021 SARS-CoV-2 (COVID-19) RNA UMESH+probe Ql (Unsp spec) Not detected Not Detected [facility] Comment on above: Rapid NAAT: The [...] management decisions. Fact sheet for Healthcare Providers: https://www.fda.gov/media/047809/download Fact sheet for Patients: https://www.fda.gov/media/966963/download Methodology: Isothermal Nucleic Acid Amplification Specimen Description .NASOPHARYNGEAL SWAB [facility] FL UGIon 06-30-2021 FL UGI EXAMINATION: SINGLE [...] Vane Braga MD 06/30/21 Final result Normal [facility] Findings suggestive of stenosis as detailed above without definite appreciation of fistula. Findings were discussed with HAYDER PENG at approximately 3:35 pm on 06/30/2021. [facility] EXAMINATION: SINGLE CONTRAST UPPER GI [...] more distal progression into the small bowel. [facility] Vane Braga MD - 06/30/2021 [...] PENG at approximately 3:35 pm on 06/30/2021. [employer] Phone: Radiology Study observation (narrative) [employer] Phone: FL UGIOrdered By: Vane Acevedo or on 06-30-2021 [facility] [employer] Phone: Ferritinon 06-30-2021 Ferritin 20 ug/L Low 30-400 [facility] Comment on above: Performed By: #### P T, BMPX, MG, SHARON #### [facility] [address] [place] [address] [id number] [employer]: Helio Reed MD Ferritin 20 ug/L Low 30 - 400 ug/L [facility] Immature Platelet Fractionon 06-30-2021 Platelet, Fluorescence 236 [facility] Platelet, Immature Fraction 2.6 % 1.1 - 10.3 % [facility] Iron Binding Cap.on 07-01-19 22 % Fe Saturation 8 % Low 20-55 [facility] Comment on above: Performed By: #### F EBC, FERI #### [facility] [address] [place] [address] [phone] [employer]: Helio Reed MD #### LUAN ZAMAN, DIANATB6, AVITB1, AVB3 #### [facility] [address] [place] [address] [employer]: Alon Young MD Iron [Mass/Vol] 28 ug/dL Low 59-158 [facility] Comment on above: Performed By: #### F EBC, FERI #### [facility] [address] [place] [address] [phone] [employer]: Helio Reed MD #### LAUN ZAMAN, DIANATB6, AVITB1, AVB3 #### [facility] [address] [place] [address] [employer]: Alon Young MD Total Fe Binding Cap 340 ug/dL Normal 250-450 [facility] Comment on above: Performed By: #### F EBC, FERI #### [place] [address] [place], [place] [phone] [employer]: Helio Reed MD #### LUAN ZAMAN AVITB6, DIANATB1, AVB3 #### [facility] [address] [place], [place] [id number] [employer]: Alon Young MD Unbound Fe Bind Cap 312 ug/dL Normal 112-347 [facility] Comment on above: Performed By: #### F EBC, FERI #### [address] [id number] [employer]: Helio Reed MD #### LUAN ZAMAN, CARMELITA, DIANATB1, AVB3 #### [facility] [address] [place] [address] [employer]: Alon Young MD Iron and TIBCon 06-30-2021 Iron [Mass/Vol] 28 ug/dL Low 59 - 158 ug/dL [facility] Iron Saturation 8 % Low 20 - 55 % [facility] TIBC 340 ug/dL 250 - 450 ug/dL [facility] UIBC 312 ug/dL 112 - 347 ug/dL [facility] Magnesiumon 06-30-2021 Magnesium [Mass/Vol] 2.2 mg/dL Normal 1.6-2.6 [facility] Comment on above: Performed By: #### P T, BMPX, MG, SHARON #### [address] [phone] [employer]: Helio Reed MD No Panel Informationon 06-30 Interpretation and review of laboratory results Abnormal [facility] Alysa Echols RN 06/30/2021 3:00 PM History/labs/allergi es reviewed Placed by Humberto Echols RN Assisted by MEHREEN Consent signed and obtained by physician Time out performed using two identifiers Catheter type 2 lumen picc Product type Bard 5 Fr double lumen PowerPicc Lot # [id number] Expiration date 06/13/2022 Catheter size 5 telugu Trimmed at 43 cm Total length inserted [...] with an education handout on PICC insertion. [facility] FAQ Catheter Associated Blood Stream Infections and [facility] [address] REV. 10/26 Nursing and Booklet left at bedside or in chart. Patient (Family or POA) acknowledged understanding of information taught and agreed to procedure. [ ] Was not discussed with patient/family or POA due to pts medical status at time of procedure. pts family or POA not available to discuss PICC education. [facility] FAQ Catheter Associated Blood Stream Infections and [facility] [address] REV. 10/26 Nursing and Booklet left at bedside or in chart Alysa Echols RN [facility] [employer] Phone: [facility]: PLT, Immature Fract.on 06-30 Platelet, Fluoresc. 236 k/uL Normal 138-453 [facility] Comment on above: Performed By: #### I PF, CDP #### [facility] [address] [place] [id number] [employer]: Helio Reed MD PLT, Immature Fract. 2.6 % Normal 1.1-10.3 [facility] Comment on above: Performed By: #### I PF, CDP #### [facility] [address] [place] [address] [employer]: Helio Reed MD PTon 06-30-2021 INR Coag (PPP) [Relative time] 1.1 {INR} Normal [facility] Comment on above: Result Comment: Therapeutic Range: Moderate Anticoagulant Intensity: INR = 2.0-3.0 High Anticoagulant Intensity: INR = 2.5-3.5 Performed By: #### P T, BMPX, MG, SHARON #### [facility] [place], [place] [phone] [employer]: Helio Reed MD PT Coag (PPP) [Time] 11.2 s Normal 9.1-12.3 [facility] Comment on above: Performed By: #### P T, BMPX, MG, SHARON #### [facility] [address] [place] [address] [phone] [employer]: Helio Reed MD Phosphoruson 06-30-2021 Phosphate [Mass/Vol] 3.4 mg/dL 2.5 - 4 .5 mg/dL [facility] Phosphorus, Inorg.on 022 Phosphorus, Inorg. 3.4 mg/dL Normal 2.5-4.5 [facility] Comment on above: Performed By: #### P T, BMPX, MG, SHARON #### [facility] [address] [place] [address] [phone] [employer]: Helio Reed MD Protime-INRon 06-30-2021 INR Coag (Bld) [Relative time] 1.1 {INR} [facility] Comment on above: Therapeutic Range: Moderate Anticoagulant Intensity: INR = 2.0-3.0 High Anticoagulant Intensity: INR = 2.5-3.5 [facility] [id number] 06-30-2021 SARS-CoV-2 (COVID-19) RNA UMESH+probe Ql (Unsp spec) Not detected Normal NOTDET [facility] Comment on above: Result Comment: Rapid [...] management decisions. Fact sheet for Healthcare Providers: https://www.fda.gov/media/826437/download Fact sheet for Patients: https://www.fda.gov/media/202761/download Methodology: Isothermal Nucleic Acid Amplification Performed By: #### C OVRB #### [facility] [address] [place] [address] [employer]: Helio Reed MD Vitamin B12 & Folateon 06-30 Cobalamin (Vitamin B12) [Mass/Vol] 505 pg/mL 232 - 1245 pg/mL [facility] Folate 16.1 ng/mL >4.8 [facility] US GI ENDOSCOPIC S AND Ion 0 09-30-2020 GI ENDOSCOPIC S AND I Radiology exam is complete. No Radiologist dictation. Please follow up with ordering provider. Final result Normal [facility] COVID-19Ordered By: Fredo parrish on 08-31-2020 SARS-CoV-2 (COVID-19) RNA UMESH+probe Ql (Unsp spec) Not detected Not Detected [facility] Work Phone: Comment on above: The specimen is NEGATIVE for SARS-CoV-2, the novel coronavirus associated with COVID-19. A negative result does not rule out COVID-19. This test has been authorized by the FDA under an Emergency Use Authorization (EUA) for use by authorized laboratories. [employer] SARS-CoV-2 Reagents for [employer] are designed to detect the virus that causes COVID-19 in patients with signs and symptoms of infection who are suspected of COVID-19. An individual without symptoms of COVID-19 and who is not shedding SARS-CoV-2 virus would expect to have a negative (not detected) result in this assay. Fact sheet for Healthcare Providers: https://www.fda.gov/media/466525/download Fact sheet for Patients: https://www.fda.gov/media/002765/download METHODOLOGY: RT-PCR SARS-CoV-2 (COVID-19) RNA UMESH+probe Ql (Unsp spec) [facility] [employer] Phone: Source .NASOPHARYNGEAL SWAB [facility] [employer] Phone: [facility] [employer] Phone: [id number] 08-31-2020 SARS-CoV-2 (COVID-19) RNA UMESH+probe Ql (Unsp spec) Not detected Normal NOTDET [facility] Comment on above: Result Comment: The specimen is NEGATIVE for SARS-CoV-2, the novel coronavirus associated with COVID-19. A negative result does not rule out COVID-19. This test has been authorized by the FDA under an Emergency Use Authorization (EUA) for use by authorized laboratories. [employer] SARS-CoV-2 Reagents for [employer] are designed to detect the virus that causes COVID-19 in patients with signs and symptoms of infection who are suspected of COVID-19. An individual without symptoms of COVID-19 and who is not shedding SARS-CoV-2 virus would expect to have a negative (not detected) result in this assay. Fact sheet for Healthcare Providers: https://www.fda.gov/media/151439/download Fact sheet for Patients: https://www.fda.gov/media/702220/download METHODOLOGY: RT-PCR Performed By: #### C OVID #### [address] [id number] [employer]: Helio Reed MD [address] [place] [address] [employer]: Leyla Sandoval MD SARS-CoV-2 (COVID-19) RNA UMESH+probe Ql (Unsp spec) Normal [facility] Comment on above: Performed By: #### C OVID #### [address] [address] [employer]: Helio Reed MD [address] [place] [address] [employer]: Leyla Sandoval MD [id number] 08-30-2020 SARS-CoV-2 (COVID-19) RNA UMESH+probe Ql (Unsp spec) .NASOPHARYNGEAL SWAB Normal [facility] Comment on above: Performed By: #### C OVID #### [facility] [address] [place] [address] [employer]: Helio Reed MD [facility] [address] [place] [address] [employer]: Leyla Sandoval MD [id number] 08-17-2020 SARS-CoV-2 (COVID-19) RNA UMESH+probe Ql (Unsp spec) Normal [facility] Comment on above: Performed By: #### C OVID #### [facility] [address] [place] [address] [employer]: Helio Reed MD [facility] [address] [place] [address] [employer]: Leyla Sandoval MD SARS-CoV-2 (COVID-19) RNA UMESH+probe Ql (Unsp spec) Not detected [facility] Comment on above: Result Comment: The specimen is NEGATIVE for SARS-CoV-2, the novel coronavirus associated with COVID-19. A negative result does not rule out COVID-19. Liana SARS-CoV-2 for use on the [employer] is a real-time RT-PCR test intended [...] this assay. Fact sheet for Healthcare Providers: https://www.fda.gov/media/606978/download Fact sheet for Patients: https://www.fda.gov/media/917046/download METHODOLOGY: RT-PCR Performed By: #### C OVID #### [address] [place], [place] [id number] [employer]: Helio Reed MD [facility] [address] [place] [address] [place] [address] [employer]: Leyla Sandoval MD [id number] 08-16-2020 SARS-CoV-2 (COVID-19) RNA UMESH+probe Ql (Unsp spec) .NASOPHARYNGEAL SWAB Normal [facility] Comment on above: Performed By: #### C OVID #### [address] [place], [place] [id number] [employer]: Helio Reed MD [facility] [address] [place] [address] [place] [address] [employer]: Leyla Sandoval MD COVID-19Ordered By: Fredo parrish on 08-03-2020 SARS-CoV-2 (COVID-19) RNA UMESH+probe Ql (Unsp spec) [facility] Phone: SARS-CoV-2 (COVID-19) RNA UMESH+probe Ql (Unsp spec) Not detected Not Detected [email or web address] [employer] Phone: Comment on above: The specimen is NEGATIVE for SARS-CoV-2, the novel coronavirus associated with COVID-19. A negative result does not rule out COVID-19. Laina SARS-CoV-2 for use on the [employer] is a real-time RT-PCR test intended [...] this assay. Fact sheet for Healthcare Providers: https://www.fda.gov/media/303549/download Fact sheet for Patients: https://www.fda.gov/media/138377/download METHODOLOGY: RT-PCR Source .NASOPHARYNGEAL SWAB [facility] [employer] Work Phone: [id number] 08-03-2020 SARS-CoV-2 (COVID-19) RNA UMESH+probe Ql (Unsp spec) Normal [facility] Comment on above: Performed By: #### C OVID #### [facility] [address] [place] [address] [employer]: Helio Reed MD [facility] [address] [place] [address] [employer]: Leyla Sandoval MD SARS-CoV-2 (COVID-19) RNA UMESH+probe Ql (Unsp spec) Not detected Normal NOTDET [facility] Comment on above: Result Comment: The specimen is NEGATIVE for SARS-CoV-2, the novel coronavirus associated with COVID-19. A negative result does not rule out COVID-19. Liana SARS-CoV-2 for use on the [employer] is a real-time RT-PCR test intended [...] this assay. Fact sheet for Healthcare Providers: https://www.fda.gov/media/551900/download Fact sheet for Patients: https://www.fda.gov/media/540040/download METHODOLOGY: RT-PCR Performed By: #### C OVID #### [facility] [address] [place], [place] [id number] [employer]: Helio Reed MD [facility] [address] [place] [address] [place] [address] [employer]: MD LV Santoyo-CoV-2on 08-02-2020 SARS-CoV-2 (COVID-19) RNA UMESH+probe Ql (Unsp spec) .NASOPHARYNGEAL SWAB Normal [facility] Comment on above: Performed By: #### C OVID #### [facility] [address] [place], [place] [id number] [employer]: Helio Reed MD [facility] [address] [place] [address] [place] [address] [employer]: Leyla Sandoval MD COVID-19on 07-20-2020 SARS-CoV-2 [facility] Work Phone: SARS-CoV-2 Not Detected Not Detected [facility] Work Phone: Comment on above: The specimen is NEGATIVE for SARS-CoV-2, the novel coronavirus associated with COVID-19. A negative result does not rule out COVID-19. Liana SARS-CoV-2 for use on the [employer] is a real-time RT-PCR test intended [...] this assay. Fact sheet for Healthcare Providers: https://www.fda.gov/media/756057/download Fact sheet for Patients: https://www.fda.gov/media/642280/download METHODOLOGY: RT-PCR Source .NASOPHARYNGEAL SWAB [facility] Work Phone: [id number] 07-20-2020 SARS-CoV-2 (COVID-19) RNA UMESH+probe Ql (Unsp spec) Normal [facility] Comment on above: Performed By: #### C OVID #### [facility] [address] [place], [place] [id number] [employer]: Helio Reed MD [facility] [address] [place] [address] [employer]: Leyla Sandoval MD SARS-CoV-2 (COVID-19) RNA UMESH+probe Ql (Unsp spec) Not detected Normal NOTDET [facility] Comment on above: Result Comment: The [...] this assay. Fact sheet for Healthcare Providers: https://www.fda.gov/media/244318/download Fact sheet for Patients: https://www.fda.gov/media/308591/download METHODOLOGY: RT-PCR Performed By: #### C OVID #### [facility] [address] [place], [place] [id number] [employer]: Helio Reed MD [facility] [address] [place] [address] [employer]: Leyla Sandoval MD [id number] 07-19-2020 SARS-CoV-2 (COVID-19) RNA UMESH+probe Ql (Unsp spec) .NASOPHARYNGEAL SWAB Normal [facility] Comment on above: Performed By: #### C OVID #### [address] [place], [place] [id number] [employer]: Helio Reed MD [facility] [address] [place], [place] [id number] [employer]: MD LV Santoyo-CoV-2on 07-06-2020 SARS-CoV-2 (COVID-19) RNA UMESH+probe Ql (Unsp spec) Normal [facility] Comment on above: Performed By: #### C OVID #### [address] [place] [address] [employer]: Helio Reed MD [facility] [address] [place] [address] [employer]: Leyla Sandoval MD SARS-CoV-2 (COVID-19) RNA UMESH+probe Ql (Unsp spec) Not detected Normal [facility] Comment on above: Result Comment: The specimen is NEGATIVE for SARS-CoV-2, the novel coronavirus associated with COVID-19. A negative result does not rule out COVID-19. Liana SARS-CoV-2 for use on the [employer] is a real-time RT-PCR test intended [...] this assay. Fact sheet for Healthcare Providers: https://www.fda.gov/media/459852/download Fact sheet for Patients: https://www.fda.gov/media/969863/download METHODOLOGY: RT-PCR Performed By: #### C OVID #### [address] [address] [employer]: Helio Reed MD [address] [place] [address] [employer]: Leyla Sandoval MD [id number] 07-05-2020 SARS-CoV-2 (COVID-19) RNA UMESH+probe Ql (Unsp spec) .NASOPHARYNGEAL SWAB Normal [facility] Comment on above: Performed By: #### C OVID #### [address] [address] [employer]: Helio Reed MD [address] [place] [address] [employer]: MD LV Santoyo-CoV-2on 06-19-2020 SARS-CoV-2 (COVID-19) RNA UMESH+probe Ql (Unsp spec) [facility] Comment on above: Performed By: #### C OVID #### [address] [address] [employer]: Helio Reed MD [address] [place] [address] [employer]: Leyla Sandoval MD SARS-CoV-2 (COVID-19) RNA UMESH+probe Ql (Unsp spec) Not detected Normal [facility] Comment on above: Result Comment: The specimen is NEGATIVE for SARS-CoV-2, the novel coronavirus associated with COVID-19. A negative result does not rule out COVID-19. Liana SARS-CoV-2 for use on the [employer] is a real-time RT-PCR test intended [...] this assay. Fact sheet for Healthcare Providers: https://www.fda.gov/media/524246/download Fact sheet for Patients: https://www.fda.gov/media/069318/download METHODOLOGY: RT-PCR Performed By: #### C OVID #### [address] [id number] [employer]: Helio Reed MD [address] [place] [id number] [employer]: Leyla Sandoval MD [id number] 06-18-2020 SARS-CoV-2 (COVID-19) RNA UMESH+probe Ql (Unsp spec) .NASOPHARYNGEAL SWAB Normal [facility] Comment on above: Performed By: #### C OVID #### [address] [id number] [employer]: Helio Reed MD [address] [place] [phone] [employer]: Leyla Sandoval MD CBC WITH AUTO DIFFERENTIALon 05-27-2020 Basophils (Bld) [#/Vol] 0.00 10*3/uL [facility] [employer] Work Phone: Basophils/100 WBC (Bld) 0 % 0 - 2 % [facility]: Differential Type NOT REPORTED [facility]: Eosinophils (Bld) [#/Vol] 0.09 10*3/uL [employer] Phone: Eosinophils/100 WBC (Bld) 2 % 1 - 4 % [employer] Phone: Erythrocyte distribution width (RBC) [Ratio] 21.5 % High 11.8 - 14.4 % [employer] Phone: Hematocrit (Bld) [Volume fraction] 32.5 % Low 40.7 - 50.3 % [employer] Phone: Hemoglobin (Bld) [Mass/Vol] 10.2 g/dL Low 13 - 17 g/dL [employer] Phone: Immature granulocytes (Bld) [#/Vol] 0.00 10*3/uL [employer] Phone: Immature granulocytes (Bld) [#/Vol] 0 % 0 [employer] Phone: Interpretation and review of laboratory results Abnormal [employer] Phone: Lymphocytes (Bld) [#/Vol] 0.85 10*3/uL Low [employer] Phone: Lymphocytes/100 WBC (Bld) 18 % Low 24 - 44 % [employer] Phone: MCH (RBC) [Entitic mass] 28.6 pg 25.2 - 33.5 pg [employer] Phone: MCHC (RBC) [Mass/Vol] 31.4 g/dL 28.4 - 34.8 g/dL [employer] Phone: MCV (RBC) [Entitic vol] 91.0 fL 82.6 - 102.9 fL [employer] Phone: Monocytes (Bld) [#/Vol] 0.28 10*3/uL [employer] Phone: Monocytes/100 WBC (Bld) 6 % 1 - 7 % [employer] Phone: Morphology Ezra (Bld) [Interp] ANISOCYTOSIS PRESENT [employer] Work Phone: Platelet mean volume (Bld) [Entitic vol] 10.4 fL 8.1 - 13.5 fL [employer] Phone: Platelets (Bld) [#/Vol] 307 10*3/uL [employer] Phone: Platelets (Bld) [#/Vol] NOT REPORTED [employer] Phone: RBC (Bld) [#/Vol] 3.57 10*6/uL Low 4.21 - 5.7 7 m/uL [employer] Phone: RBC morphology finding Nom (Bld) NOT REPORTED [employer] Phone: Segmented neutrophils/100 WBC (Bld) 74 % High 36 - 66 % [employer] Phone: Segs Absolute 3.48 [employer] Work Phone: WBC (Bld) [#/Vol] 0.0 10*3/uL 0.0 per 10 0 WBC [employer] Phone: WBC (Bld) [#/Vol] 4.7 10*3/uL [employer] Phone: WBC Morphology NOT REPORTED [employer] [facility] Work Phone: Comprehensive Metabolic Pane l w/ Reflex to MGon 05-27-2020 Albumin [Mass/Vol] 1.8 g/dL Low 3.5 - 5.2 g/dL [employer] Phone: Albumin/Globulin [Mass ratio] 0.7 {ratio} Low [employer] Phone: ALP [Catalytic activity/Vol] 155 U/L High 40 - 129 U/L [employer] Phone: ALT [Catalytic activity/Vol] 35 U/L 5 - 41 U/L [employer] Phone: Anion gap [Moles/Vol] 3 mmol/L Low 9 - 17 mmol/L [employer] Work Phone: AST [Catalytic activity/Vol] 35 U/L <40 [employer] Work Phone: Bilirubin Ql (U) 0.33 mg/dL 0.3 - 1.2 mg/dL [employer] Work Phone: Bun/Cre Ratio NOT REPORTED [facility] Work Phone: Calcium [Mass/Vol] 7.6 mg/dL Low 8.6 - 10. 4 mg/dL [employer] Work Phone: Chloride [Moles/Vol] 103 mmol/L 98 - 10 7 mmol/L [employer] Phone: CO2 [Moles/Vol] 27 mmol/L 20 - 31 mmol/L [employer] Phone: Creatinine [Mass/Vol] 0.28 mg/dL Low 0.7 - 1.2 mg/dL [employer] Phone: GFR >60 >60 mL/min [employer] Phone: GFR Non- >60 >60 mL/min [employer] Phone: GFR/1.73 sq M predicted among non-blacks MDRD (S/P/Bld) [Vol rate/Area] NOT REPORTED [employer] Phone: GFR/1.73 sq M predicted among non-blacks MDRD (S/P/Bld) [Vol rate/Area] [employer] Phone: Comment on above: Average GFR for 40-4 9 years old: 99 mL/min/1.73sq m Chronic Kidney Disease: <60 mL/min/1.73sq m Kidney failure: <15 mL/min/1.73sq m eGFR calculated using average adult body mass. Additional eGFR calculator available at: http://www.Quantason/multiple_crcl_2011.htm Glucose [Mass/Vol] 110 mg/dL High 70 - 99 mg/dL [facility] [employer] Phone: Interpretation and review of laboratory results Abnormal [facility] [employer] Phone: Potassium [Moles/Vol] 4.5 mmol/L 3.7 - 5.3 mmol/L [facility] [employer] Phone: Protein [Mass/Vol] 4.4 g/dL Low 6.4 - 8.3 g/dL [facility] [employer] Phone: Sodium [Moles/Vol] 133 mmol/L Low 135 - 144 mmol/L [facility] [employer] Phone: Urea nitrogen [Mass/Vol] 10 mg/dL 6 - 20 mg/dL [facility] [employer] Phone: Magnesiumon 05-27-2020 Magnesium [Mass/Vol] 2.1 mg/dL 1.6 - 2 .6 mg/dL [facility] [employer] Phone: POC Glucose Fingerstickon Glucose [Mass/Vol] 95 mg/dL 75 - 110 mg/dL [facility] [employer] Phone: Glucose [Mass/Vol] 99 mg/dL 75 - 110 mg/dL [facility] [employer] Phone: Phosphoruson 05-27-2020 Phosphate [Mass/Vol] 2.6 mg/dL 2.5 - 4 .5 mg/dL [facility] [employer] Phone: CBC WITH AUTO DIFFERENTIALon 05-26-2020 Basophils (Bld) [#/Vol] 0.00 10*3/uL [facility]: Basophils/100 WBC (Bld) 0 % 0 - 2 % [facility] [employer] Phone: Differential Type NOT REPORTED [facility] [employer] Phone: Eosinophils (Bld) [#/Vol] 0.48 10*3/uL High [employer] Phone: Eosinophils/100 WBC (Bld) 8 % High 1 - 4 % [employer] Phone: Erythrocyte distribution width (RBC) [Ratio] 21.9 % High 11.8 - 14.4 % [employer] Phone: Hematocrit (Bld) [Volume fraction] 35.8 % Low 40.7 - 50.3 % [employer] Phone: Hemoglobin (Bld) [Mass/Vol] 10.7 g/dL Low 13 - 17 g/dL [employer] Phone: Immature granulocytes (Bld) [#/Vol] 0.00 10*3/uL [employer] Phone: Immature granulocytes (Bld) [#/Vol] 0 % 0 [employer] Phone: Interpretation and review of laboratory results Abnormal [employer] Phone: Lymphocytes (Bld) [#/Vol] 1.74 10*3/uL [employer] Phone: Lymphocytes/100 WBC (Bld) 29 % 24 - 44 % [employer] Phone: MCH (RBC) [Entitic mass] 28.7 pg 25.2 - 33.5 pg [employer] Phone: MCHC (RBC) [Mass/Vol] 29.9 g/dL 28.4 - 34.8 g/dL [employer] Phone: MCV (RBC) [Entitic vol] 96.0 fL 82.6 - 102.9 fL [employer] Phone: Monocytes (Bld) [#/Vol] 0.54 10*3/uL [employer] Phone: Monocytes/100 WBC (Bld) 9 % High 1 - 7 % [employer] Phone: Morphology Ezra (Bld) [Interp] ANISOCYTOSIS PRESENT [employer] Phone: Platelet mean volume (Bld) [Entitic vol] 10.4 fL 8.1 - 13.5 fL [facility] Phone: Platelets (Bld) [#/Vol] 382 10*3/uL [facility] Phone: Platelets (Bld) [#/Vol] NOT REPORTED [facility] Phone: RBC (Bld) [#/Vol] 3.73 10*6/uL Low 4.21 - 5.7 7 m/uL [facility] Phone: RBC morphology finding Nom (Bld) NOT REPORTED [facility] [employer] Phone: Segmented neutrophils/100 WBC (Bld) 54 % 36 - 66 % [facility] [employer] Phone: Segs Absolute 3.24 [facility] Phone: WBC (Bld) [#/Vol] 6.0 10*3/uL [facility] Phone: WBC (Bld) [#/Vol] 0.0 10*3/uL 0.0 per 10 0 WBC [facility] Phone: WBC Morphology NOT REPORTED [email or web address] [employer] Phone: COVID-19on 05-26-2020 SARS-CoV-2, Rapid Not Detected Not Detected [facility] [employer] Phone: Comment on above: Rapid NAAT: The [...] management decisions. Fact sheet for Healthcare Providers: https://www.[place].gov/media/771691/download Fact sheet for Patients: https://www.[place].gov/media/489473/download Methodology: Isothermal Nucleic Acid Amplification Source .NASOPHARYNGEAL SWAB [employer] Phone: Calcium, Ionizedon Calcium [Mass/Vol] 1.06 mmol/L Low 1.13 - 1. 33 mmol/L [employer] Phone: Interpretation and review of laboratory results Abnormal [employer] Phone: Comprehensive Metabolic Pane l w/ Reflex to MGon 05-26-2020 Albumin [Mass/Vol] 2 g/dL Low 3.5 - 5.2 g/dL [employer] Phone: Albumin/Globulin [Mass ratio] 0.8 {ratio} Low [employer] Phone: ALP [Catalytic activity/Vol] 154 U/L High 40 - 129 U/L [employer] Phone: ALT [Catalytic activity/Vol] 49 U/L High 5 - 41 U/L [employer] Phone: Anion gap [Moles/Vol] 4 mmol/L Low 9 - 17 mmol/L [employer] Phone: AST [Catalytic activity/Vol] 48 U/L High <40 [employer] Phone: Bilirubin Ql (U) 0.45 mg/dL 0.3 - 1.2 mg/dL [employer] Phone: Bun/Cre Ratio NOT REPORTED [facility] Work Phone: Calcium [Mass/Vol] 7.4 mg/dL Low 8.6 - 10. 4 mg/dL [employer] Phone: Chloride [Moles/Vol] 104 mmol/L 98 - 10 7 mmol/L [employer] Phone: CO2 [Moles/Vol] 27 mmol/L 20 - 31 mmol/L [employer] Phone: Creatinine [Mass/Vol] 0.37 mg/dL Low 0.7 - 1.2 mg/dL [employer] Phone: GFR >60 >60 mL/min [employer] Phone: GFR Non- >60 >60 mL/min [employer] Phone: GFR/1.73 sq M predicted among non-blacks MDRD (S/P/Bld) [Vol rate/Area] [employer] Phone: Comment on above: Average GFR for 40-4 9 years old: 99 mL/min/1.73sq m Chronic Kidney Disease: <60 mL/min/1.73sq m Kidney failure: <15 mL/min/1.73sq m eGFR calculated using average adult body mass. Additional eGFR calculator available at: http://www.Quantason/multiple_crcl_2012.htm GFR/1.73 sq M predicted among non-blacks MDRD (S/P/Bld) [Vol rate/Area] NOT REPORTED [employer] Phone: Glucose [Mass/Vol] 78 mg/dL 70 - 99 mg/dL [facility] [employer] Phone: Interpretation and review of laboratory results Abnormal [employer] Phone: Potassium [Moles/Vol] 4.0 mmol/L 3.7 - 5.3 mmol/L [employer] Phone: Protein [Mass/Vol] 4.6 g/dL Low 6.4 - 8.3 g/dL [employer] Phone: Sodium [Moles/Vol] 135 mmol/L 135 - 144 mmol/L [employer] Phone: Urea nitrogen [Mass/Vol] 9 mg/dL 6 - 20 mg/dL [employer] Work Phone: IR PICC WO SQ PORT/PUMP > 5 YEARSon 05-26-2020 Successful ultrasound and fluoroscopy guided PICC placement. Okay to use PICC [employer] Work Phone: PROCEDURE: ULTRASOUND GUIDED VASCULAR ACCESS. FLUOROSCOPY GUIDED PICC PLACEMENT 05/24/2020. HISTORY: Malnutrition SEDATION: None FLUOROSCOPY DOSE AND TYPE OR TIME AND EXPOSURES: Fluoro time 0.5 minutes DAP 53 cGy cm 2 TECHNIQUE: This procedure was performed by Adal Kilpatrick PA-C under direct supervision of Dr. Schmidt. Informed consent was obtained after a detailed explanation of the procedure including risks, benefits, and alternatives. Valier protocol was observed. The right arm was [...] place a peel-a-way sheath and a 5 [place] by 36 cm dual lumen power PICC [...] of the catheter at the cavo-atrial junction. [employer] Work Phone: Wero, pn Incoming Radiant Results From [employer] - 05/26/2020 1:17 PM EST PROCEDURE: ULTRASOUND [...] the procedure including risks, benefits, and alternatives. Valier protocol was observed. The right arm was [...] place a peel-a-way sheath and a 5 [place] by 36 cm dual lumen power PICC [...] guided PICC placement. Okay to use PICC [employer] Phone: Magnesiumon 05-26-2020 Magnesium [Mass/Vol] 1.9 mg/dL 1.6 - 2 .6 mg/dL [employer] Phone: Otheron 05-26-2020 SARS-CoV-2 [employer] Phone: POC Glucose Fingerstickon Glucose [Mass/Vol] 102 mg/dL 75 - 110 mg/dL [employer] Phone: Glucose [Mass/Vol] 65 mg/dL Low 75 - 110 mg/dL [employer] Phone: Interpretation and review of laboratory results Abnormal [employer] Phone: Phosphoruson 05-26-2020 Phosphate [Mass/Vol] 2.7 mg/dL 2.5 - 4 .5 mg/dL [employer] Phone: CBC WITH AUTO DIFFERENTIALon 05-25-2020 Basophils (Bld) [#/Vol] 0.09 10*3/uL [employer] Phone: Basophils/100 WBC (Bld) 2 % 0 - 2 % [employer] Phone: Differential Type NOT REPORTED [employer] Phone: Eosinophils (Bld) [#/Vol] 0.26 10*3/uL [employer] Phone: Eosinophils/100 WBC (Bld) 6 % High 1 - 4 % [employer] Phone: Erythrocyte distribution width (RBC) [Ratio] 21.7 % High 11.8 - 14.4 % [employer] Phone: Hematocrit (Bld) [Volume fraction] 39.5 % Low 40.7 - 50.3 % [employer] Phone: Hemoglobin (Bld) [Mass/Vol] 12.1 g/dL Low 13 - 17 g/dL [employer] Phone: Immature granulocytes (Bld) [#/Vol] 0.04 10*3/uL [employer] Phone: Immature granulocytes (Bld) [#/Vol] 1 % High 0 [employer] Phone: Interpretation and review of laboratory results Abnormal [employer] Phone: Lymphocytes (Bld) [#/Vol] 0.86 10*3/uL Low [employer] Phone: Lymphocytes/100 WBC (Bld) 20 % Low 24 - 43 % [employer] Phone: MCH (RBC) [Entitic mass] 28.5 pg 25.2 - 33.5 pg [employer] Phone: MCHC (RBC) [Mass/Vol] 30.6 g/dL 28.4 - 34.8 g/dL [employer] Phone: MCV (RBC) [Entitic vol] 92.9 fL 82.6 - 102.9 fL [employer] Phone: Monocytes (Bld) [#/Vol] 0.39 10*3/uL [employer] Phone: Monocytes/100 WBC (Bld) 9 % 3 - 12 % [employer] Phone: Morphology Ezra (Bld) [Interp] ANISOCYTOSIS PRESENT [employer] Phone: Platelet mean volume (Bld) [Entitic vol] 10.1 fL 8.1 - 13.5 fL [employer] Phone: Platelets (Bld) [#/Vol] 371 10*3/uL [employer] Phone: Platelets (Bld) [#/Vol] NOT REPORTED [employer] Phone: RBC (Bld) [#/Vol] 4.25 10*6/uL 4.21 - 5.7 7 m/uL [employer] Phone: RBC morphology finding Nom (Bld) NOT REPORTED [employer] Phone: Segmented neutrophils/100 WBC (Bld) 62 % 36 - 65 % [employer] Phone: Segs Absolute 2.66 [employer] Work Phone: WBC (Bld) [#/Vol] 4.3 10*3/uL [employer] Phone: WBC (Bld) [#/Vol] 0.0 10*3/uL 0.0 per 10 0 WBC [employer] Phone: WBC Morphology NOT REPORTED [employer] [facility] Work Phone: Comprehensive Metabolic Pane l w/ Reflex to MGon 05-25-2020 Albumin [Mass/Vol] 2.3 g/dL Low 3.5 - 5.2 g/dL [employer] Phone: Albumin/Globulin [Mass ratio] 0.8 {ratio} Low [employer] Phone: ALP [Catalytic activity/Vol] 196 U/L High 40 - 129 U/L [employer] Phone: ALT [Catalytic activity/Vol] 62 U/L High 5 - 41 U/L [employer] Phone: Anion gap [Moles/Vol] 8 mmol/L Low 9 - 17 mmol/L [employer] Phone: AST [Catalytic activity/Vol] 72 U/L High <40 [employer] Phone: Bilirubin Ql (U) 0.61 mg/dL 0.3 - 1.2 mg/dL [employer] Phone: Bun/Cre Ratio NOT REPORTED [employer] Work Phone: Calcium [Mass/Vol] 7.9 mg/dL Low 8.6 - 10. 4 mg/dL [employer] Phone: Chloride [Moles/Vol] 103 mmol/L 98 - 10 7 mmol/L [employer] Phone: CO2 [Moles/Vol] 25 mmol/L 20 - 31 mmol/L [employer] Phone: Creatinine [Mass/Vol] 0.36 mg/dL Low 0.7 - 1.2 mg/dL [employer] Phone: GFR >60 >60 mL/min [employer] Phone: GFR Non- >60 >60 mL/min [employer] Phone: GFR/1.73 sq M predicted among non-blacks MDRD (S/P/Bld) [Vol rate/Area] [employer] Phone: Comment on above: Average GFR for 40-4 9 years old: 99 mL/min/1.73sq m Chronic Kidney Disease: <60 mL/min/1.73sq m Kidney failure: <15 mL/min/1.73sq m eGFR calculated using average adult body mass. Additional eGFR calculator available at: http://www.Quantason/multiple_crcl_2012.htm GFR/1.73 sq M predicted among non-blacks MDRD (S/P/Bld) [Vol rate/Area] NOT REPORTED [employer] Phone: Glucose [Mass/Vol] 105 mg/dL High 70 - 99 mg/dL [facility] [employer] Phone: Interpretation and review of laboratory results Abnormal [employer] Phone: Potassium [Moles/Vol] 3.2 mmol/L Low 3.7 - 5.3 mmol/L [facility] Phone: Protein [Mass/Vol] 5.3 g/dL Low 6.4 - 8.3 g/dL [facility] Phone: Sodium [Moles/Vol] 136 mmol/L 135 - 144 mmol/L [facility] Phone: Urea nitrogen [Mass/Vol] 11 mg/dL 6 - 20 mg/dL [facility] Phone: Magnesiumon 05-25-2020 Magnesium [Mass/Vol] 1.9 mg/dL 1.6 - 2 .6 mg/dL [facility] Phone: POC Glucose Fingerstickon Glucose [Mass/Vol] 92 mg/dL 75 - 110 mg/dL [facility] Phone: Glucose [Mass/Vol] 85 mg/dL 75 - 110 mg/dL [facility] Phone: Glucose [Mass/Vol] 102 mg/dL 75 - 110 mg/dL [facility] Phone: Glucose [Mass/Vol] 70 mg/dL Low 75 - 110 mg/dL [facility] Phone: Interpretation and review of laboratory results Abnormal [employer] Phone: Glucose [Mass/Vol] 73 mg/dL Low 75 - 110 mg/dL [facility] Phone: Interpretation and review of laboratory results Abnormal [employer] Phone: Phosphoruson 05-25-2020 Phosphate [Mass/Vol] 3.1 mg/dL 2.5 - 4 .5 mg/dL [employer] Phone: Triglycerideson 05-25-2020 Triglyceride [Mass/Vol] 60 mg/dL <150 [employer] Phone: Comment on above: Triglyceride Guidelines: <150 Desirable 150-199 Borderline 200-499 High >499 Very high Based on AHA Guidelines for fasting triglyceride, January 2012. CBC WITH AUTO DIFFERENTIALon 05-24-2020 Basophils (Bld) [#/Vol] 0.10 10*3/uL [employer] Phone: Basophils/100 WBC (Bld) 2 % 0 - 2 % [employer] Phone: Differential Type NOT REPORTED [employer] Phone: Eosinophils (Bld) [#/Vol] 0.29 10*3/uL [employer] Phone: Eosinophils/100 WBC (Bld) 6 % High 1 - 4 % [employer] Phone: Erythrocyte distribution width (RBC) [Ratio] 22.3 % High 11.8 - 14.4 % [employer] Phone: Hematocrit (Bld) [Volume fraction] 36.0 % Low 40.7 - 50.3 % [employer] Phone: Hemoglobin (Bld) [Mass/Vol] 11.7 g/dL Low 13 - 17 g/dL [employer] Phone: Immature granulocytes (Bld) [#/Vol] 0.00 10*3/uL [employer] Phone: Immature granulocytes (Bld) [#/Vol] 0 % 0 [employer] Phone: Interpretation and review of laboratory results Abnormal [employer] Phone: Lymphocytes (Bld) [#/Vol] 1.57 10*3/uL [employer] Phone: Lymphocytes/100 WBC (Bld) 32 % 24 - 43 % [employer] Phone: MCH (RBC) [Entitic mass] 28.9 pg 25.2 - 33.5 pg [employer] Phone: MCHC (RBC) [Mass/Vol] 32.5 g/dL 28.4 - 34.8 g/dL [employer] Phone: MCV (RBC) [Entitic vol] 88.9 fL 82.6 - 102.9 fL [employer] Phone: Monocytes (Bld) [#/Vol] 0.39 10*3/uL [employer] Phone: Monocytes/100 WBC (Bld) 8 % 3 - 12 % [employer] Phone: Morphology Ezra (Bld) [Interp] ANISOCYTOSIS PRESENT [employer] Phone: Platelet mean volume (Bld) [Entitic vol] 10.8 fL 8.1 - 13.5 fL [employer] Phone: Platelets (Bld) [#/Vol] NOT REPORTED [employer] Phone: Platelets (Bld) [#/Vol] 368 10*3/uL [employer] Phone: RBC (Bld) [#/Vol] 4.05 10*6/uL Low 4.21 - 5.7 7 m/uL [employer] Phone: RBC morphology finding Nom (Bld) NOT REPORTED [employer] Phone: Segmented neutrophils/100 WBC (Bld) 52 % 36 - 65 % [employer] Phone: [employer]s Absolute 2[employer]55 [employer] Work Phone: WBC (Bld) [#/Vol] 4.9 10*3/uL [employer] Work Phone: WBC (Bld) [#/Vol] 0.0 10*3/uL 0.0 per 10 0 WBC [employer] Work Phone: WBC Morphology NOT REPORTED [employer] [facility] Work Phone: Comprehensive Metabolic Pane l w/ Reflex to MGon 05-24-2020 Albumin [Mass/Vol] 2.1 g/dL Low 3.5 - 5.2 g/dL [employer] Work Phone: Albumin/Globulin [Mass ratio] 0.7 {ratio} Low [employer] Work Phone: ALP [Catalytic activity/Vol] 171 U/L High 40 - 129 U/L [employer] Work Phone: ALT [Catalytic activity/Vol] 55 U/L High 5 - 41 U/L [employer] Phone: Anion gap [Moles/Vol] 7 mmol/L Low 9 - 17 mmol/L [employer] Work Phone: AST [Catalytic activity/Vol] 66 U/L High <40 [employer] Work Phone: Bilirubin Ql (U) 0.61 mg/dL 0.3 - 1.2 mg/dL [employer] Work Phone: Bun/Cre Ratio NOT REPORTED [facility] Work Phone: Calcium [Mass/Vol] 8.1 mg/dL Low 8.6 - 10. 4 mg/dL [employer] Work Phone: Chloride [Moles/Vol] 106 mmol/L 98 - 10 7 mmol/L [employer] Work Phone: CO2 [Moles/Vol] 23 mmol/L 20 - 31 mmol/L [employer] Work Phone: Creatinine [Mass/Vol] 0.5 mg/dL Low 0.7 - 1.2 mg/dL [employer] Phone: GFR >60 >60 mL/min [employer] Phone: GFR Non- >60 >60 mL/min [facility] Phone: GFR/1.73 sq M predicted among non-blacks MDRD (S/P/Bld) [Vol rate/Area] [employer] Phone: Comment on above: Average GFR for 40-4 9 years old: 99 mL/min/1.73sq m Chronic Kidney Disease: <60 mL/min/1.73sq m Kidney failure: <15 mL/min/1.73sq m eGFR calculated using average adult body mass. Additional eGFR calculator available at: http://www.Quantason/[employer]_crcl_2012.htm GFR/1.73 sq M predicted among non-blacks MDRD (S/P/Bld) [Vol rate/Area] NOT REPORTED [employer] Phone: Glucose [Mass/Vol] 62 mg/dL Low 70 - 99 mg/dL [facility] [employer] Phone: Interpretation and review of laboratory results Abnormal [facility] Phone: Potassium [Moles/Vol] 3.5 mmol/L Low 3.7 - 5.3 mmol/L [facility] Phone: Comment on above: SPECIMEN SLIGHTLY HE MOLYZED, RESULTS MAY BE ADVERSELY AFFECTED. Protein [Mass/Vol] 5.0 g/dL Low 6.4 - 8.3 g/dL [facility] Phone: Sodium [Moles/Vol] 136 mmol/L 135 - 144 mmol/L [facility] Phone: Urea nitrogen [Mass/Vol] 17 mg/dL 6 - 20 mg/dL [facility] Phone: Ferritinon 05-24-2020 Ferritin [Mass/Vol] 34 ug/L 30 - 400 ug/L [facility] Phone: Iron and TIBCon 05-24-2020 Interpretation and review of laboratory results Abnormal [facility] Phone: Iron [Mass/Vol] 52 ug/dL Low 59 - 158 ug/dL [facility] [employer] [employer] Phone: Iron Saturation 31 % 20 - 55 % [facility] Work Phone: TIBC 168 ug/dL Low 250 - 450 ug/dL [facility] Phone: UIBC 116 ug/dL 112 - 347 ug/dL [facility] Phone: Magnesiumon 05-24-2020 Magnesium [Mass/Vol] 1.7 mg/dL 1.6 - 2 .6 mg/dL [facility] Phone: Protime-INRon 2 INR Coag (PPP) [Relative time] 1.2 {INR} [facility] [employer] Phone: Comment on above: Therapeutic Range: Moderate Anticoagulant Intensity: INR = 2.0-3.0 High Anticoagulant Intensity: INR = 2.5-3.5 Interpretation and review of laboratory results Abnormal [facility] [employer] [facility] Phone: PT Coag (PPP) [Time] 12.6 s High [facility] [employer] Phone: TPN PROFILEon 05-24-2020 Anion gap [Moles/Vol] 10 mmol/L 9 - 17 mmol/L [facility] [employer] Phone: Bun/Cre Ratio NOT REPORTED [facility] Work Phone: Calcium [Mass/Vol] 7.7 mg/dL Low 8.6 - 10. 4 mg/dL [facility] Phone: Chloride [Moles/Vol] 101 mmol/L 98 - 10 7 mmol/L [facility] Phone: CO2 [Moles/Vol] 22 mmol/L 20 - 31 mmol/L [employer] Phone: Creatinine [Mass/Vol] 0.46 mg/dL Low 0.7 - 1.2 mg/dL [employer] Phone: GFR >60 >60 mL/min [employer] Phone: GFR Non- >60 >60 mL/min [employer] Phone: GFR/1.73 sq M predicted among non-blacks MDRD (S/P/Bld) [Vol rate/Area] NOT REPORTED [employer] Phone: GFR/1.73 sq M predicted among non-blacks MDRD (S/P/Bld) [Vol rate/Area] [employer] Phone: Comment on above: Average GFR for 40-4 9 years old: 99 mL/min/1.73sq m Chronic Kidney Disease: <60 mL/min/1.73sq m Kidney failure: <15 mL/min/1.73sq m eGFR calculated using average adult body mass. Additional eGFR calculator available at: http://www.Quantason/multiple_crcl_2011.htm Glucose [Mass/Vol] 50 mg/dL Low 70 - 99 mg/dL [employer] Phone: Interpretation and review of laboratory results Abnormal [employer] Phone: Magnesium [Mass/Vol] 1.8 mg/dL 1.6 - 2 .6 mg/dL [employer] Phone: Phosphate [Mass/Vol] 3.6 mg/dL 2.5 - 4 .5 mg/dL [employer] Phone: Potassium [Moles/Vol] 3.1 mmol/L Low 3.7 - 5.3 mmol/L [employer] Phone: Sodium [Moles/Vol] 133 mmol/L Low 135 - 144 mmol/L [employer] Phone: Triglyceride [Mass/Vol] 55 mg/dL <150 [employer] Phone: Comment on above: Triglyceride Guidelines: <150 Desirable 150-199 Borderline 200-499 High >499 Very high Based on AHA Guidelines for fasting triglyceride, January 2012. Urea nitrogen [Mass/Vol] 15 mg/dL 6 - 20 mg/dL [employer] Phone: VITAMIN B12 & FOLATEon 05-24 Cobalamin (Vitamin B12) [Mass/Vol] 565 pg/mL 232 - 1245 pg/mL [employer] Phone: Folate 14.7 ng/mL >4.8 [employer] Phone: CBC WITH AUTO DIFFERENTIALon 05-23-2020 Basophils (Bld) [#/Vol] 0.00 10*3/uL [employer] Phone: Basophils/100 WBC (Bld) 0 % 0 - 2 % [employer] Phone: Differential Type NOT REPORTED [employer] Phone: Eosinophils (Bld) [#/Vol] 0.23 10*3/uL [employer] Phone: Eosinophils/100 WBC (Bld) 4 % 1 - 4 % [employer] Phone: Erythrocyte distribution width (RBC) [Ratio] 22.8 % High 11.8 - 14.4 % [employer] Phone: Hematocrit (Bld) [Volume fraction] 36.3 % Low 40.7 - 50.3 % [employer] Phone: Hemoglobin (Bld) [Mass/Vol] 11.1 g/dL Low 13 - 17 g/dL [employer] Phone: Immature granulocytes (Bld) [#/Vol] 0 % 0 [employer] Phone: Immature granulocytes (Bld) [#/Vol] 0.00 10*3/uL [employer] Phone: Interpretation and review of laboratory results Abnormal [employer] Phone: Lymphocytes (Bld) [#/Vol] 2.00 10*3/uL [employer] Phone: Lymphocytes/100 WBC (Bld) 35 % 24 - 44 % [employer] Phone: MCH (RBC) [Entitic mass] 28.2 pg 25.2 - 33.5 pg [employer] Phone: MCHC (RBC) [Mass/Vol] 30.6 g/dL 28.4 - 34.8 g/dL [employer] Phone: MCV (RBC) [Entitic vol] 92.4 fL 82.6 - 102.9 fL [employer] Phone: Monocytes (Bld) [#/Vol] 0.23 10*3/uL [employer] Phone: Monocytes/100 WBC (Bld) 4 % 1 - 7 % [employer] Phone: Morphology Ezra (Bld) [Interp] ANISOCYTOSIS PRESENT [employer] Work Phone: Platelet mean volume (Bld) [Entitic vol] 9.9 fL 8.1 - 13.5 fL [employer] Phone: Platelets (Bld) [#/Vol] NOT REPORTED [employer] Phone: Platelets (Bld) [#/Vol] 416 10*3/uL [employer] Phone: RBC (Bld) [#/Vol] 3.93 10*6/uL Low 4.21 - 5.7 7 m/uL [employer] Phone: RBC morphology finding Nom (Bld) NOT REPORTED [employer] Phone: Segmented neutrophils/100 WBC (Bld) 57 % 36 - 66 % [employer] Phone: Segs Absolute 3.24 [facility] Work Phone: WBC (Bld) [#/Vol] 5.7 10*3/uL [employer] Work Phone: WBC (Bld) [#/Vol] 0.0 10*3/uL 0.0 per 10 0 WBC [employer] Work Phone: WBC Morphology NOT REPORTED [employer] [facility] Work Phone: Comprehensive Metabolic Pane l w/ Reflex to MGon 05-23-2020 Albumin [Mass/Vol] 2 g/dL Low 3.5 - 5.2 g/dL [employer] Work Phone: Albumin/Globulin [Mass ratio] 0.7 {ratio} Low [employer] Work Phone: ALP [Catalytic activity/Vol] 171 U/L High 40 - 129 U/L [employer] Work Phone: ALT [Catalytic activity/Vol] 51 U/L High 5 - 41 U/L [employer] Phone: Anion gap [Moles/Vol] 9 mmol/L 9 - 17 mmol/L [employer] Work Phone: AST [Catalytic activity/Vol] 47 U/L High <40 [employer] Work Phone: Bilirubin Ql (U) 0.54 mg/dL 0.3 - 1.2 mg/dL [employer] Work Phone: Bun/Cre Ratio NOT REPORTED [facility] Work Phone: Calcium [Mass/Vol] 7.4 mg/dL Low 8.6 - 10. 4 mg/dL [employer] Work Phone: Chloride [Moles/Vol] 107 mmol/L 98 - 10 7 mmol/L [employer] Work Phone: CO2 [Moles/Vol] 20 mmol/L 20 - 31 mmol/L [employer] Phone: Creatinine [Mass/Vol] 0.45 mg/dL Low 0.7 - 1.2 mg/dL [employer] Phone: GFR >60 >60 mL/min [employer] Phone: GFR Non- >60 >60 mL/min [employer] Phone: GFR/1.73 sq M predicted among non-blacks MDRD (S/P/Bld) [Vol rate/Area] NOT REPORTED [employer] Phone: GFR/1.73 sq M predicted among non-blacks MDRD (S/P/Bld) [Vol rate/Area] [employer] Phone: Comment on above: Average GFR for 40-4 9 years old: 99 mL/min/1.73sq m Chronic Kidney Disease: <60 mL/min/1.73sq m Kidney failure: <15 mL/min/1.73sq m eGFR calculated using average adult body mass. Additional eGFR calculator available at: http://www.Quantason/multiple_crcl_2012.htm Glucose [Mass/Vol] 77 mg/dL 70 - 99 mg/dL [employer] Phone: Interpretation and review of laboratory results Abnormal [employer] Phone: Potassium [Moles/Vol] 3.5 mmol/L Low 3.7 - 5.3 mmol/L [employer] Phone: Protein [Mass/Vol] 4.8 g/dL Low 6.4 - 8.3 g/dL [employer] Phone: Sodium [Moles/Vol] 136 mmol/L 135 - 144 mmol/L [employer] Phone: Urea nitrogen [Mass/Vol] 17 mg/dL 6 - 20 mg/dL [employer] Phone: Magnesiumon 05-23-2020 Magnesium [Mass/Vol] 1.7 mg/dL 1.6 - 2 .6 mg/dL [employer] Phone: XR ABDOMEN (KUB) (SINGLE AP VIEW)on 05-23-2020 [facility], [facility] Incoming Radiant Results From [employer] - 05/23/2020 10:27 PM EST EXAMINATION: ONE [...] ileus. 2. Oral contrast within the colon. [employer] Phone: EXAMINATION: ONE SUPINE XRAY VIEW(S) OF THE ABDOMEN 05/23/2020 9:57 pm COMPARISON: 04/10/2020 HISTORY: ORDERING SYSTEM PROVIDED HISTORY: SBO TECHNOLOGIST PROVIDED HISTORY: SBO Reason for Exam: supine FINDINGS: There are mildly distended loops of small bowel. There is oral contrast within the colon. No nephrolithiasis. There is contrast within the renal collecting system. Prior cholecystectomy. [employer] Phone: 1. Mildly distended loops of small bowel, which could be seen with obstruction or ileus. 2. Oral contrast within the colon. [employer] Phone: Basic Metabolic Panelon 12- Anion gap [Moles/Vol] 8 mmol/L Low 9 - 17 mmol/L [facility] [place] Bun/Cre Ratio NOT REPORTED [place] Calcium [Mass/Vol] 7.6 mg/dL Low 8.6 - 10. 4 mg/dL [facility], [place] Chloride [Moles/Vol] 105 mmol/L 98 - 10 7 mmol/L [place] CO2 [Moles/Vol] 22 mmol/L 20 - 31 mmol/L [place] Creatinine [Mass/Vol] 0.49 mg/dL Low 0.7 - 1.2 mg/dL [place] GFR >60 >60 mL/min [place] GFR Non- >60 >60 mL/min [place] GFR/1.73 sq M predicted among non-blacks MDRD (S/P/Bld) [Vol rate/Area] [place] Comment on above: Average GFR for 40-4 9 years old: 99 mL/min/1.73sq m Chronic Kidney Disease: <60 mL/min/1.73sq m Kidney failure: <15 mL/min/1.73sq m eGFR calculated using average adult body mass. Additional eGFR calculator available at: http://www.Quantason/multiple_crcl_2012.htm GFR/1.73 sq M predicted among non-blacks MDRD (S/P/Bld) [Vol rate/Area] NOT REPORTED [place] Glucose [Mass/Vol] 72 mg/dL 70 - 99 mg/dL [place] Interpretation and review of laboratory results Abnormal [place] Potassium [Moles/Vol] 4.2 mmol/L 3.7 - 5.3 mmol/L [place] Sodium [Moles/Vol] 135 mmol/L 135 - 144 mmol/L [place] Urea nitrogen [Mass/Vol] 14 mg/dL 6 - 20 mg/dL [place] CBCon 04-12-2020 Erythrocyte distribution width (RBC) [Ratio] 25.5 % High 11.8 - 14.4 % [place] Hematocrit (Bld) [Volume fraction] 35.6 % Low 40.7 - 50.3 % [place] Hemoglobin (Bld) [Mass/Vol] 10.4 g/dL Low 13 - 17 g/dL [place] Interpretation and review of laboratory results Abnormal [place] MCH (RBC) [Entitic mass] 23.9 pg Low 25.2 - 33.5 pg [place] MCHC (RBC) [Mass/Vol] 29.2 g/dL 28.4 - 34.8 g/dL [place] MCV (RBC) [Entitic vol] 81.7 fL Low 82.6 - 102.9 fL [place] Platelet mean volume (Bld) [Entitic vol] 9.2 fL 8.1 - 13.5 fL [place] Platelets (Bld) [#/Vol] 770 10*3/uL [place] RBC (Bld) [#/Vol] 4.36 10*6/uL 4.21 - 5.7 7 m/uL [place] WBC (Bld) [#/Vol] 0.0 10*3/uL 0.0 per 10 0 WBC [place] WBC (Bld) [#/Vol] 8.0 10*3/uL [place] Otheron 04-12-2020 Interpretation and review of laboratory results Abnormal [place] POC Glucose Fingerstickon Glucose [Mass/Vol] 27 mg/dL Critically low 75 - 11 0 mg/dL [place] Glucose [Mass/Vol] mg/dL Critically low 75 - 11 0 mg/dL [place] Basic Metabolic Panelon -2 Anion gap [Moles/Vol] 8 mmol/L Low 9 - 17 mmol/L [place] Bun/Cre Ratio NOT REPORTED [place] Calcium [Mass/Vol] 7.5 mg/dL Low 8.6 - 10. 4 mg/dL [place] Chloride [Moles/Vol] 103 mmol/L 98 - 10 7 mmol/L [place] CO2 [Moles/Vol] 22 mmol/L 20 - 31 mmol/L [place] Creatinine [Mass/Vol] 0.43 mg/dL Low 0.7 - 1.2 mg/dL [place] GFR >60 >60 mL/min [place] GFR Non- >60 >60 mL/min [place] GFR/1.73 sq M predicted among non-blacks MDRD (S/P/Bld) [Vol rate/Area] NOT REPORTED [place] GFR/1.73 sq M predicted among non-blacks MDRD (S/P/Bld) [Vol rate/Area] [place] Comment on above: Average GFR for 40-4 9 years old: 99 mL/min/1.73sq m Chronic Kidney Disease: <60 mL/min/1.73sq m Kidney failure: <15 mL/min/1.73sq m eGFR calculated using average adult body mass. Additional eGFR calculator available at: http://www.Quantason/multiple_crcl_2012.htm Glucose [Mass/Vol] 69 mg/dL Low 70 - 99 mg/dL [place] Interpretation and review of laboratory results Abnormal [place] Potassium [Moles/Vol] 3.9 mmol/L 3.7 - 5.3 mmol/L [place] Sodium [Moles/Vol] 133 mmol/L Low 135 - 144 mmol/L [place] Urea nitrogen [Mass/Vol] 12 mg/dL 6 - 20 mg/dL [place] CBCon 04-11-2020 Erythrocyte distribution width (RBC) [Ratio] 25.4 % High 11.8 - 14.4 % [place] Hematocrit (Bld) [Volume fraction] 36.0 % Low 40.7 - 50.3 % [place] Hemoglobin (Bld) [Mass/Vol] 10.5 g/dL Low 13 - 17 g/dL [place] Interpretation and review of laboratory results Abnormal [place] MCH (RBC) [Entitic mass] 23.3 pg Low 25.2 - 33.5 pg [place] MCHC (RBC) [Mass/Vol] 29.2 g/dL 28.4 - 34.8 g/dL [place] MCV (RBC) [Entitic vol] 79.8 fL Low 82.6 - 102.9 fL [place] Platelet mean volume (Bld) [Entitic vol] 9.5 fL 8.1 - 13.5 fL [place] Platelets (Bld) [#/Vol] 779 10*3/uL [place] RBC (Bld) [#/Vol] 4.51 10*6/uL 4.21 - 5.7 7 m/uL [place] WBC (Bld) [#/Vol] 8.8 10*3/uL [place] WBC (Bld) [#/Vol] 0.0 10*3/uL 0.0 per 10 0 WBC [place] FL SMALL BOWEL FOLLOW THROUG H ONLYon 04-11-2020 [facility], [facility]pn Incoming Radiant Results From [facility] - 04/11/2020 9:40 AM EST EXAMINATION: SMALL [...] assess progression of contrast as clinically warranted. [place] Redemonstration of markedly dilated proximal small bowel loops but without evidence of obstruction as contrast reaches the colon within 1 hour. Consider follow-up abdominal radiographs to assess progression of contrast as clinically warranted. [place] EXAMINATION: SMALL BOWEL FOLLOW THROUGH SERIES [...] within the dilated proximal small bowel loops. [place] POC Glucose Fingerstickon Glucose [Mass/Vol] 77 mg/dL 75 - 110 mg/dL [place] Glucose [Mass/Vol] 82 mg/dL 75 - 110 mg/dL [place] Basic Metabolic Panelon 03-17 Anion gap [Moles/Vol] 8 mmol/L Low 9 - 17 mmol/L [place] Bun/Cre Ratio NOT REPORTED [place] Calcium [Mass/Vol] 7.5 mg/dL Low 8.6 - 10. 4 mg/dL [place] Chloride [Moles/Vol] 106 mmol/L 98 - 10 7 mmol/L [place] CO2 [Moles/Vol] 22 mmol/L 20 - 31 mmol/L [place] Creatinine [Mass/Vol] 0.33 mg/dL Low 0.7 - 1.2 mg/dL [place] GFR >60 >60 mL/min [place] GFR Non- >60 >60 mL/min [place] GFR/1.73 sq M predicted among non-blacks MDRD (S/P/Bld) [Vol rate/Area] [place] Comment on above: Average GFR for 40-4 9 years old: 99 mL/min/1.73sq m Chronic Kidney Disease: <60 mL/min/1.73sq m Kidney failure: <15 mL/min/1.73sq m eGFR calculated using average adult body mass. Additional eGFR calculator available at: http://www.[employer].Well[employer]ount/multiple_crcl_2012.htm GFR/1.73 sq M predicted among non-blacks MDRD (S/P/Bld) [Vol rate/Area] NOT REPORTED [place] Glucose [Mass/Vol] 57 mg/dL Low 70 - 99 mg/dL [place] Interpretation and review of laboratory results Abnormal [place] Potassium [Moles/Vol] 4.0 mmol/L 3.7 - 5.3 mmol/L [place] Sodium [Moles/Vol] 136 mmol/L 135 - 144 mmol/L [place] Urea nitrogen [Mass/Vol] 12 mg/dL 6 - 20 mg/dL [place] CBCon 04-10-2020 Erythrocyte distribution width (RBC) [Ratio] 25.2 % High 11.8 - 14.4 % [place] Hematocrit (Bld) [Volume fraction] 33.4 % Low 40.7 - 50.3 % [place] Hemoglobin (Bld) [Mass/Vol] 9.9 g/dL Low 13 - 17 g/dL [place] Interpretation and review of laboratory results Abnormal [place] MCH (RBC) [Entitic mass] 23.3 pg Low 25.2 - 33.5 pg [place] MCHC (RBC) [Mass/Vol] 29.6 g/dL 28.4 - 34.8 g/dL [place] MCV (RBC) [Entitic vol] 78.8 fL Low 82.6 - 102.9 fL [place] Platelet mean volume (Bld) [Entitic vol] 9.8 fL 8.1 - 13.5 fL [place] Platelets (Bld) [#/Vol] 637 10*3/uL [place] RBC (Bld) [#/Vol] 4.24 10*6/uL 4.21 - 5.7 7 m/uL [place] WBC (Bld) [#/Vol] 7.4 10*3/uL [place] WBC (Bld) [#/Vol] 0.0 10*3/uL 0.0 per 10 0 WBC [place] POC Glucose Fingerstickon Glucose [Mass/Vol] 81 mg/dL 75 - 110 mg/dL [place] Glucose [Mass/Vol] 90 mg/dL 75 - 110 mg/dL [place] Glucose [Mass/Vol] 108 mg/dL 75 - 110 mg/dL [place] Glucose [Mass/Vol] 44 mg/dL Low 75 - 110 mg/dL [place] Interpretation and review of laboratory results Abnormal [place] Glucose [Mass/Vol] 54 mg/dL Low 75 - 110 mg/dL [place] Comment on above: Critical Noted Interpretation and review of laboratory results Abnormal [place] Basic Metabolic Panelon 12-2 Anion gap [Moles/Vol] 9 mmol/L 9 - 17 mmol/L [place] Bun/Cre Ratio NOT REPORTED [place] Calcium [Mass/Vol] 7.3 mg/dL Low 8.6 - 10. 4 mg/dL [place] Chloride [Moles/Vol] 106 mmol/L 98 - 10 7 mmol/L [place] CO2 [Moles/Vol] 20 mmol/L 20 - 31 mmol/L [place] Creatinine [Mass/Vol] 0.31 mg/dL Low 0.7 - 1.2 mg/dL [place] GFR >60 >60 mL/min [place] GFR Non- >60 >60 mL/min [place] GFR/1.73 sq M predicted among non-blacks MDRD (S/P/Bld) [Vol rate/Area] NOT REPORTED [place] GFR/1.73 sq M predicted among non-blacks MDRD (S/P/Bld) [Vol rate/Area] [place] Comment on above: Average GFR for 40-4 9 years old: 99 mL/min/1.73sq m Chronic Kidney Disease: <60 mL/min/1.73sq m Kidney failure: <15 mL/min/1.73sq m eGFR calculated using average adult body mass. Additional eGFR calculator available at: http://www.[employer].Wellfount/multiple_crcl_2012.htm Glucose [Mass/Vol] 86 mg/dL 70 - 99 mg/dL [place] Potassium [Moles/Vol] 3.6 mmol/L Low 3.7 - 5.3 mmol/L [place] Sodium [Moles/Vol] 135 mmol/L 135 - 144 mmol/L [place] Urea nitrogen [Mass/Vol] 10 mg/dL 6 - 20 mg/dL [place] CBCon 04-08-2020 Erythrocyte distribution width (RBC) [Ratio] 25.0 % High 11.8 - 14.4 % [place] Hematocrit (Bld) [Volume fraction] 35.4 % Low 40.7 - 50.3 % [place] Hemoglobin (Bld) [Mass/Vol] 9.5 g/dL Low 13 - 17 g/dL [place] Interpretation and review of laboratory results Abnormal [place] MCH (RBC) [Entitic mass] 23.2 pg Low 25.2 - 33.5 pg [place] MCHC (RBC) [Mass/Vol] 26.8 g/dL Low 28.4 - 34.8 g/dL [place] MCV (RBC) [Entitic vol] 86.6 fL 82.6 - 102.9 fL [place] Platelet mean volume (Bld) [Entitic vol] 10.1 fL 8.1 - 13.5 fL [place] Platelets (Bld) [#/Vol] 430 10*3/uL [place] RBC (Bld) [#/Vol] 4.09 10*6/uL Low 4.21 - 5.7 7 m/uL [place] WBC (Bld) [#/Vol] 6.5 10*3/uL [place] WBC (Bld) [#/Vol] 0.0 10*3/uL 0.0 per 10 0 WBC [place] Magnesiumon 04-08-2020 Magnesium [Mass/Vol] 2.4 mg/dL 1.6 - 2 .6 mg/dL [place] Otheron 04-08-2020 Interpretation and review of laboratory results Abnormal [place] POC Glucose Fingerstickon Glucose [Mass/Vol] 88 mg/dL 75 - 110 mg/dL [place] Phosphoruson 04-08-2020 Phosphate [Mass/Vol] 1.8 mg/dL Low 2.5 - 4 .5 mg/dL [place] Basic Metabolic Panelon 03-17 Anion gap [Moles/Vol] 5 mmol/L Low 9 - 17 mmol/L [place] Bun/Cre Ratio NOT REPORTED [facility] [place] Calcium [Mass/Vol] 6.8 mg/dL Low 8.6 - 10. 4 mg/dL [place] Chloride [Moles/Vol] 109 mmol/L High 98 - 10 7 mmol/L [place] CO2 [Moles/Vol] 23 mmol/L 20 - 31 mmol/L [place] Creatinine [Mass/Vol] 0.24 mg/dL Low 0.7 - 1.2 mg/dL [place] GFR >60 >60 mL/min [place] GFR Non- >60 >60 mL/min [place] GFR/1.73 sq M predicted among non-blacks MDRD (S/P/Bld) [Vol rate/Area] NOT REPORTED [place] GFR/1.73 sq M predicted among non-blacks MDRD (S/P/Bld) [Vol rate/Area] [place] Comment on above: Average GFR for 40-4 9 years old: 99 mL/min/1.73sq m Chronic Kidney Disease: <60 mL/min/1.73sq m Kidney failure: <15 mL/min/1.73sq m eGFR calculated using average adult body mass. Additional eGFR calculator available at: http://www.Quantason/multiple_crcl_2012.htm Glucose [Mass/Vol] 96 mg/dL 70 - 99 mg/dL [place] Potassium [Moles/Vol] 3.3 mmol/L Low 3.7 - 5.3 mmol/L [place] Sodium [Moles/Vol] 137 mmol/L 135 - 144 mmol/L [place] Urea nitrogen [Mass/Vol] 11 mg/dL 6 - 20 mg/dL [place] CBCon 04-07-2020 Erythrocyte distribution width (RBC) [Ratio] 24.0 % High 11.8 - 14.4 % [place] Hematocrit (Bld) [Volume fraction] 28.9 % Low 40.7 - 50.3 % [place] Hemoglobin (Bld) [Mass/Vol] 8.3 g/dL Low 13 - 17 g/dL [place] Interpretation and review of laboratory results Abnormal [place] MCH (RBC) [Entitic mass] 23.2 pg Low 25.2 - 33.5 pg [place] MCHC (RBC) [Mass/Vol] 28.7 g/dL 28.4 - 34.8 g/dL [place] MCV (RBC) [Entitic vol] 81.0 fL Low 82.6 - 102.9 fL [place] Platelet mean volume (Bld) [Entitic vol] 9.8 fL 8.1 - 13.5 fL [place] Platelets (Bld) [#/Vol] 418 10*3/uL [place] RBC (Bld) [#/Vol] 3.57 10*6/uL Low 4.21 - 5.7 7 m/uL [place] WBC (Bld) [#/Vol] 4.8 10*3/uL [place] WBC (Bld) [#/Vol] 0.0 10*3/uL 0.0 per 10 0 WBC [place] Magnesiumon 04-07-2020 Magnesium [Mass/Vol] 2.1 mg/dL 1.6 - 2 .6 mg/dL [place] Otheron 04-07-2020 Interpretation and review of laboratory results Abnormal [place] POC Glucose Fingerstickon Glucose [Mass/Vol] 107 mg/dL 75 - 110 mg/dL [place] Phosphoruson 04-07-2020 Phosphate [Mass/Vol] 1.5 mg/dL Low 2.5 - 4 .5 mg/dL [place] Basic Metabolic Panelon 03-17 Anion gap [Moles/Vol] 4 mmol/L Low 9 - 17 mmol/L [place] Bun/Cre Ratio NOT REPORTED [place] Calcium [Mass/Vol] 6.9 mg/dL Low 8.6 - 10. 4 mg/dL [place] Chloride [Moles/Vol] 110 mmol/L High 98 - 10 7 mmol/L [place] CO2 [Moles/Vol] 22 mmol/L 20 - 31 mmol/L [place] Creatinine [Mass/Vol] 0.32 mg/dL Low 0.7 - 1.2 mg/dL [place] GFR >60 >60 mL/min [place] GFR Non- >60 >60 mL/min [place] GFR/1.73 sq M predicted among non-blacks MDRD (S/P/Bld) [Vol rate/Area] NOT REPORTED [place] GFR/1.73 sq M predicted among non-blacks MDRD (S/P/Bld) [Vol rate/Area] [place] Comment on above: Average GFR for 40-4 9 years old: 99 mL/min/1.73sq m Chronic Kidney Disease: <60 mL/min/1.73sq m Kidney failure: <15 mL/min/1.73sq m eGFR calculated using average adult body mass. Additional eGFR calculator available at: http://www.[employer].Wellfount/multiple_crcl_2012.htm Glucose [Mass/Vol] 84 mg/dL 70 - 99 mg/dL [place] Potassium [Moles/Vol] 3.8 mmol/L 3.7 - 5.3 mmol/L [place] Sodium [Moles/Vol] 136 mmol/L 135 - 144 mmol/L [place] Urea nitrogen [Mass/Vol] 14 mg/dL 6 - 20 mg/dL [place] Magnesiumon 04-06-2020 Magnesium [Mass/Vol] 2.3 mg/dL 1.6 - 2 .6 mg/dL [place] Otheron 04-06-2020 Interpretation and review of laboratory results Abnormal [place] POC Glucose Fingerstickon Glucose [Mass/Vol] 91 mg/dL 75 - 110 mg/dL [place] Glucose [Mass/Vol] 95 mg/dL 75 - 110 mg/dL [place] Glucose [Mass/Vol] 84 mg/dL 75 - 110 mg/dL [place] Phosphoruson 04-06-2020 Phosphate [Mass/Vol] 1.4 mg/dL Low 2.5 - 4 .5 mg/dL [place] Triglycerideson 04-06-2020 Triglyceride [Mass/Vol] 65 mg/dL <150 [place] Comment on above: Triglyceride Guidelines: <150 Desirable 150-199 Borderline 200-499 High >499 Very high Based on AHA Guidelines for fasting triglyceride, January 2012. BASIC METABOLIC PANELon 03-17 Anion gap [Moles/Vol] 6 mmol/L Low 9 - 17 mmol/L [place] Bun/Cre Ratio NOT REPORTED [place] Calcium [Mass/Vol] 6.8 mg/dL Low 8.6 - 10. 4 mg/dL [place] Chloride [Moles/Vol] 110 mmol/L High 98 - 10 7 mmol/L [place] CO2 [Moles/Vol] 23 mmol/L 20 - 31 mmol/L [place] Creatinine [Mass/Vol] 0.44 mg/dL Low 0.7 - 1.2 mg/dL [place] GFR >60 >60 mL/min [place] GFR Non- >60 >60 mL/min [place] GFR/1.73 sq M predicted among non-blacks MDRD (S/P/Bld) [Vol rate/Area] NOT REPORTED [place] GFR/1.73 sq M predicted among non-blacks MDRD (S/P/Bld) [Vol rate/Area] [place] Comment on above: Average GFR for 40-4 9 years old: 99 mL/min/1.73sq m Chronic Kidney Disease: <60 mL/min/1.73sq m Kidney failure: <15 mL/min/1.73sq m eGFR calculated using average adult body mass. Additional eGFR calculator available at: http://www.Quantason/multiple_crcl_2012.htm Glucose [Mass/Vol] 101 mg/dL High 70 - 99 mg/dL [place] Interpretation and review of laboratory results Abnormal [place] Potassium [Moles/Vol] 3.8 mmol/L 3.7 - 5.3 mmol/L [place] Sodium [Moles/Vol] 139 mmol/L 135 - 144 mmol/L [place] Urea nitrogen [Mass/Vol] 17 mg/dL 6 - 20 mg/dL [place] CBC WITH AUTO DIFFERENTIALon 04-05-2020 Basophils (Bld) [#/Vol] 0.00 10*3/uL [place] Basophils/100 WBC (Bld) 0 % 0 - 2 % [place] Differential Type NOT REPORTED [place] Eosinophils (Bld) [#/Vol] 0.27 10*3/uL [place] Eosinophils/100 WBC (Bld) 5 % High 1 - 4 % [place] Erythrocyte distribution width (RBC) [Ratio] 24.0 % High 11.8 - 14.4 % [place] Hematocrit (Bld) [Volume fraction] 28.5 % Low 40.7 - 50.3 % [place] Hemoglobin (Bld) [Mass/Vol] 8.1 g/dL Low 13 - 17 g/dL [place] Immature granulocytes (Bld) [#/Vol] 0.11 10*3/uL [place] Immature granulocytes (Bld) [#/Vol] 2 % High 0 [place] Interpretation and review of laboratory results Abnormal [place] Lymphocytes (Bld) [#/Vol] 0.74 10*3/uL Low [place] Lymphocytes/100 WBC (Bld) 14 % Low 24 - 44 % [place] MCH (RBC) [Entitic mass] 22.8 pg Low 25.2 - 33.5 pg [place] MCHC (RBC) [Mass/Vol] 28.4 g/dL 28.4 - 34.8 g/dL [place] MCV (RBC) [Entitic vol] 80.3 fL Low 82.6 - 102.9 fL [place] Monocytes (Bld) [#/Vol] 0.85 10*3/uL [place] Monocytes/100 WBC (Bld) 16 % High 1 - 7 % [place] [place] Morphology Ezra (Bld) [Interp] HYPOCHROMIA PRESENT [place] Morphology Ezra (Bld) [Interp] 1+ TEARDROPS [place] Morphology Ezra (Bld) [Interp] 1+ SCHISTOCYTES [place] Morphology Ezra (Bld) [Interp] 1+ ELLIPTOCYTES [place] Morphology Ezra (Bld) [Interp] ANISOCYTOSIS PRESENT [place], [place] Platelet mean volume (Bld) [Entitic vol] 10.2 fL 8.1 - 13.5 fL [place] Platelets (Bld) [#/Vol] NOT REPORTED [place] Platelets (Bld) [#/Vol] 370 10*3/uL [place] RBC (Bld) [#/Vol] 3.55 10*6/uL Low 4.21 - 5.7 7 m/uL [place] RBC morphology finding Nom (Bld) NOT REPORTED [place] Segmented neutrophils/100 WBC (Bld) 63 % 36 - 66 % [place] Segs Absolute 3.33 [place], [place] WBC (Bld) [#/Vol] 0.0 10*3/uL 0.0 per 10 0 WBC [place] WBC (Bld) [#/Vol] 5.3 10*3/uL [place] WBC Morphology NOT REPORTED [place] Insert PICC magali 0 Breonna Almeida RN 04/05/2020 4:49 PM History/labs/allergi es reviewed Placed by Amaury MATOS Assisted by N/A Consent signed and obtained by physician Time out performed using two identifiers Catheter type double lumen picc Product type solo2 w 3cg Lot # [id number] Expiration date 01/13/2021 Catheter size 5 telugu Trimmed at 4 cm Total length 41 [...] with an education handout on PICC insertion. [facility] FAQ Catheter Associated Blood Stream Infections and [facility] [address] REV. 10/26 Nursing and Booklet left at bedside or in chart. Patient (Family or POA) acknowledged understanding of information taught and agreed to procedure. [ ] Was not discussed with patient/family or POA due to pts medical status at time of procedure. pts family or POA not available to discuss PICC education. [facility] FAQ Catheter Associated Blood Stream Infections and [facility] [address] REV. 10/26 Nursing and Booklet left at bedside or in chart [place], [place] POC Glucose Fingerstickon Glucose [Mass/Vol] 87 mg/dL 75 - 110 mg/dL [place] Glucose [Mass/Vol] 99 mg/dL 75 - 110 mg/dL [place] BASIC METABOLIC PANELon 2 Anion gap [Moles/Vol] 6 mmol/L Low 9 - 17 mmol/L [place] Bun/Cre Ratio NOT REPORTED [place], [place] Calcium [Mass/Vol] 7.4 mg/dL Low 8.6 - 10. 4 mg/dL [place] Chloride [Moles/Vol] 103 mmol/L 98 - 10 7 mmol/L [place] CO2 [Moles/Vol] 24 mmol/L 20 - 31 mmol/L [place] Creatinine [Mass/Vol] 0.44 mg/dL Low 0.7 - 1.2 mg/dL [place] GFR >60 >60 mL/min [place] GFR Non- >60 >60 mL/min [place] GFR/1.73 sq M predicted among non-blacks MDRD (S/P/Bld) [Vol rate/Area] [place], [place] Comment on above: Average GFR for 40-4 9 years old: 99 mL/min/1.73sq m Chronic Kidney Disease: <60 mL/min/1.73sq m Kidney failure: <15 mL/min/1.73sq m eGFR calculated using average adult body mass. Additional eGFR calculator available at: http://www.Quantason/multiple_crcl_2012.htm GFR/1.73 sq M predicted among non-blacks MDRD (S/P/Bld) [Vol rate/Area] NOT REPORTED [place], [place] Glucose [Mass/Vol] 105 mg/dL High 70 - 99 mg/dL [place], [place] Interpretation and review of laboratory results Abnormal [place], [place] Potassium [Moles/Vol] 4.2 mmol/L 3.7 - 5.3 mmol/L [place] Sodium [Moles/Vol] 133 mmol/L Low 135 - 144 mmol/L [place], [place] Urea nitrogen [Mass/Vol] 15 mg/dL 6 - 20 mg/dL [place] CBC WITH AUTO DIFFERENTIALon 04-04-2020 Basophils (Bld) [#/Vol] 0.00 10*3/uL [place] Basophils/100 WBC (Bld) 0 % 0 - 2 % [place] Differential Type NOT REPORTED [place] Eosinophils (Bld) [#/Vol] 0.00 10*3/uL [place] Eosinophils/100 WBC (Bld) 0 % Low 1 - 4 % [place] Erythrocyte distribution width (RBC) [Ratio] 24.1 % High 11.8 - 14.4 % [place] Hematocrit (Bld) [Volume fraction] 38.1 % Low 40.7 - 50.3 % [place] Hemoglobin (Bld) [Mass/Vol] 11.1 g/dL Low 13 - 17 g/dL [place], [place] Immature granulocytes (Bld) [#/Vol] 0 % 0 [place] Immature granulocytes (Bld) [#/Vol] 0.00 10*3/uL [place] Interpretation and review of laboratory results Abnormal [place] Lymphocytes (Bld) [#/Vol] 1.11 10*3/uL [place] Lymphocytes/100 WBC (Bld) 15 % Low 24 - 44 % [place] MCH (RBC) [Entitic mass] 22.5 pg Low 25.2 - 33.5 pg [place] MCHC (RBC) [Mass/Vol] 29.1 g/dL 28.4 - 34.8 g/dL [place] MCV (RBC) [Entitic vol] 77.1 fL Low 82.6 - 102.9 fL [place], [place] Monocytes (Bld) [#/Vol] 1.11 10*3/uL High [place], [place] Monocytes/100 WBC (Bld) 15 % High 1 - 7 % [place] Morphology Ezra (Bld) [Interp] 1+ POLYCHROMASIA [place] Morphology Ezra (Bld) [Interp] ANISOCYTOSIS PRESENT [place], [place] Morphology Ezra (Bld) [Interp] MICROCYTOSIS PRESENT [place], [place] Platelet mean volume (Bld) [Entitic vol] 9.7 fL 8.1 - 13.5 fL [place] Platelets (Bld) [#/Vol] NOT REPORTED [place], [place] Platelets (Bld) [#/Vol] 499 10*3/uL [place] RBC (Bld) [#/Vol] 4.94 10*6/uL 4.21 - 5.7 7 m/uL [place] RBC morphology finding Nom (Bld) NOT REPORTED [place], [place] Segmented neutrophils/100 WBC (Bld) 70 % High 36 - 66 % [place] Segs Absolute 5.18 [place], [place] WBC (Bld) [#/Vol] 0.0 10*3/uL 0.0 per 10 0 WBC [place] WBC (Bld) [#/Vol] 7.4 10*3/uL [place] WBC Morphology NOT REPORTED [place] Culture, Urineon 04-04-2020 Culture NO GROWTH [place] Special Requests NOT REPORTED [place] Specimen Description .INDWELLING CATH URINE [place] Lactate, Sepsison 04-04-2020 Lactic Acid, Sepsis NOT REPORTED 0.5 - 1. 9 mmol/L [place], [place] Lactic Acid, Sepsis, Whole Blood 1.0 mmol/L 0.5 - 1.9 mmol/L [place], [place] POC Glucose Fingerstickon Glucose [Mass/Vol] 93 mg/dL 75 - 110 mg/dL [place], [place] Glucose [Mass/Vol] 128 mg/dL High 75 - 110 mg/dL [place] Interpretation and review of laboratory results Abnormal [place] VL DUP LOWER EXTREMITY VENOU S LEFTon 04-04-2020 [facility] Vascular Lower Extremities DVT Study Procedure Patient Name DANUTA MUHAMMAD Date of Study 04/02/2020 Ann Date of 1980 Gender Male Age 39 year(s) Race Room Number 0174 Corporate ID [id number] # Patient Acct [id number] # MR # [id number] Legal File Clerk Norma Shultz RVT, RDMS Interpreting Gold Hernandez [...] + +------- ---+ + !Recent surgery !03/30/2020!norma kunz! + +------- ---+ + - The patient's [...] !Phasic! ! ! + --------+------+---- --+ + [facility]- [place], [place], [place] Incoming Cardio Results From [facility] - 04/04/2020 8:53 AM EST [facility] Vascular Lower Extremities DVT Study Procedure Patient Name DANUTA MUHAMMAD Date of Study 04/02/2020 J Date of 1980 Gender Male Age 39 year(s) Race Room Number 0174 Corporate ID [id number] # Patient Acct [id number] # MR # [id number] Legal File Clerk Norma Shultz RVT, TRISHA Interpreting Gold Hernandez [...] !Phasic! ! ! + --------+------+---- --+ + [facility]- [place], [facility] DUP UPPER EXTREMITY VENOU S LEFTon 04-04-2020 [facility] Vascular Upper Extremities Veins Procedure Patient Name DANUTA MUHAMMAD Date of Study 04/02/2020 J Date of 1980 Gender Male Age 39 year(s) Race Room Number 0174 Corporate ID [id number] # Patient Acct [id number] # MR # [id number] Legal File Clerk Norma Shultz RVT, [facility] Interpreting Gold Hernandez Physician Referring Referring Physician Arlyn Villegas Nurse Practitioner Procedure Type of Study: Veins: Upper Extremities Veins, Venous Scan Upper Left. Indications for Study:Arm swelling. Patient Status:In Patient. Technical Quality:Limited visualization. Limitation reason:IV site left wrist. Conclusions Summary No evidence of superficial or deep venous thrombosis in the left lower extremity. Signature ---- ---- ---- Electronically signed by [facility]) on 04/04/2020 08:50 AM ---- Left Impression: Left internal jugular, subclavian, axillary, brachial, ulnar, radial, cephalic and basilic veins are compressible with normal doppler responses. Risk Factors History + +------- ---+ + !Diagnosis !Date !Comments ! + +------- ---+ + !Recent surgery !03/30/2020!amritrosc opy! + +------- ---+ + - The [...] !Phasic ! ! + ------+ +--------- + [facility]- [place], [place], [place] Incoming Cardio Results From [facility]/ - 04/04/2020 8:50 AM [facility] Vascular Upper Extremities Veins Procedure Patient Name DANUTA MUHAMMAD Date of Study 04/02/2020 Ann Date of 1980 Gender Male Age 39 year(s) Race Room Number 0174 Corporate ID [id number] # Patient Acct [id number] # MR # [id number] Legal File Clerk Norma Shultz RVT, [facility] Interpreting Gold Hernandez Physician Referring Referring Physician Arlyn Villegas Nurse Practitioner Procedure Type of Study: Veins: Upper Extremities Veins, Venous Scan Upper Left. Indications for Study:Arm swelling. Patient Status:In Patient. Technical Quality:Limited visualization. Limitation reason:IV site left wrist. Conclusions Summary No evidence of superficial or deep venous thrombosis in the left lower extremity. Signature ---- ---- ---- Electronically signed by [facility] physician) on 04/04/2020 08:50 AM ---- Left Impression: Left internal jugular, subclavian, [...] !Phasic ! ! + ------+ +--------- + [place] Vitamin B1on 04-04-2020 Vitamin B1,Whole Blood 122 nmol/L 70 - 180 nmol/L [place] Comment on above: (NOTE) INTERPRETIVE INFORMATION: Vitamin B1, Whole Blood This assay measures the concentration of thiamine diphosphate (TDP), the primary active form of vitamin B1. Approximately 90 percent of vitamin B1 present in whole blood is TDP. Thiamine and thiamine monophosphate, which comprise the remaining 10 percent, are not measured. Test developed and characteristics determined by [facility]. See Compliance Statement B: [employer]Wellfount/CS Performed By: [facility] [address] [place] [id number] Tube Heater: Marisol Gray MD BASIC METABOLIC PANELon 03-16 Anion gap [Moles/Vol] 10 mmol/L 9 - 17 mmol/L [place] Bun/Cre Ratio NOT REPORTED [place], [place] Calcium [Mass/Vol] 7.0 mg/dL Low 8.6 - 10. 4 mg/dL [place] Chloride [Moles/Vol] 103 mmol/L 98 - 10 7 mmol/L [place] CO2 [Moles/Vol] 22 mmol/L 20 - 31 mmol/L [place], [place] Creatinine [Mass/Vol] 0.38 mg/dL Low 0.7 - 1.2 mg/dL [place] GFR >60 >60 mL/min [place] GFR Non- >60 >60 mL/min [place] GFR/1.73 sq M predicted among non-blacks MDRD (S/P/Bld) [Vol rate/Area] NOT REPORTED [place] GFR/1.73 sq M predicted among non-blacks MDRD (S/P/Bld) [Vol rate/Area] [place], [place] Comment on above: Average GFR for 40-4 9 years old: 99 mL/min/1.73sq m Chronic Kidney Disease: <60 mL/min/1.73sq m Kidney failure: <15 mL/min/1.73sq m eGFR calculated using average adult body mass. Additional eGFR calculator available at: http://www.Quantason/multiple_crcl_2012.htm Glucose [Mass/Vol] 76 mg/dL 70 - 99 mg/dL [place] Interpretation and review of laboratory results Abnormal [place], [place] Potassium [Moles/Vol] 3.6 mmol/L Low 3.7 - 5.3 mmol/L [place], [place] Sodium [Moles/Vol] 135 mmol/L 135 - 144 mmol/L [place], [place] Urea nitrogen [Mass/Vol] 12 mg/dL 6 - 20 mg/dL [place] CBC WITH AUTO DIFFERENTIALon 04-03-2020 Basophils (Bld) [#/Vol] 0.05 10*3/uL [place] Basophils/100 WBC (Bld) 1 % 0 - 2 % [place], [place] Differential Type NOT REPORTED [place] Eosinophils (Bld) [#/Vol] 0.09 10*3/uL [place] Eosinophils/100 WBC (Bld) 2 % 1 - 4 % [place] Erythrocyte distribution width (RBC) [Ratio] 24.1 % High 11.8 - 14.4 % [place] Hematocrit (Bld) [Volume fraction] 32.3 % Low 40.7 - 50.3 % [place] Hemoglobin (Bld) [Mass/Vol] 9.3 g/dL Low 13 - 17 g/dL [place], [place] Immature granulocytes (Bld) [#/Vol] 1 % High 0 [place], [place] Immature granulocytes (Bld) [#/Vol] 0.05 10*3/uL [place] Interpretation and review of laboratory results Abnormal [place] Lymphocytes (Bld) [#/Vol] 0.95 10*3/uL Low [place] Lymphocytes/100 WBC (Bld) 21 % Low 24 - 44 % [place] MCH (RBC) [Entitic mass] 22.6 pg Low 25.2 - 33.5 pg [place] MCHC (RBC) [Mass/Vol] 28.8 g/dL 28.4 - 34.8 g/dL [place] MCV (RBC) [Entitic vol] 78.4 fL Low 82.6 - 102.9 fL [place], [place] Monocytes (Bld) [#/Vol] 0.23 10*3/uL [place], [place] Monocytes/100 WBC (Bld) 5 % 1 - 7 % [place] Morphology Ezra (Bld) [Interp] 1+ ELLIPTOCYTES [place] Morphology Ezra (Bld) [Interp] 1+ POLYCHROMASIA [place] Morphology Ezra (Bld) [Interp] MICROCYTOSIS PRESENT [place], [place] Morphology Ezra (Bld) [Interp] ANISOCYTOSIS PRESENT [place] Platelet mean volume (Bld) [Entitic vol] 9.5 fL 8.1 - 13.5 fL [place] Platelets (Bld) [#/Vol] NOT REPORTED [place], [place] Platelets (Bld) [#/Vol] 498 10*3/uL [place], [place] RBC (Bld) [#/Vol] 4.12 10*6/uL Low 4.21 - 5.7 7 m/uL [place] RBC morphology finding Nom (Bld) NOT REPORTED [place], [place] Segmented neutrophils/100 WBC (Bld) 70 % High 36 - 66 % [place], [place] Segs Absolute 3.13 [place], [place] WBC (Bld) [#/Vol] 0.0 10*3/uL 0.0 per 10 0 WBC [place] WBC (Bld) [#/Vol] 4.5 10*3/uL [place] WBC Morphology NOT REPORTED [place] FL UGI W SMALL BOWELon 04-03 [place], [place]pn Incoming Radiant Results From [facility] - 04/03/2020 1:25 PM EST EXAMINATION: SINGLE [...] evaluation of SBO 360ml gastrografin orally FINDINGS: [employer] Sales Consultant: Midline skin parris. Residual oral contrast within the colon. Exam: Oral contrast was given to evaluate the stomach. No obstruction. No extravasation of contrast. 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 Small-bowel obstruction was then performed after the ingestion of 360 ml of Gastrografin. Proximal small bowel is markedly dilated. IMPRESSION: Markedly dilated proximal small bowel corresponding to findings on recent CT. [place] Markedly dilated proximal small bowel corresponding to findings on recent CT. 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 Residual oral contrast within the colon. Exam: Oral contrast was given to evaluate the stomach. No obstruction. No extravasation of contrast. 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 Small-bowel obstruction was then performed after the ingestion of 360 ml of Gastrografin. Proximal small bowel is markedly dilated. [place] MAGNESIUMon 04-03-2020 Magnesium [Mass/Vol] 2.3 mg/dL 1.6 - 2 .6 mg/dL [place] POC Glucose Fingerstickon Glucose [Mass/Vol] 79 mg/dL 75 - 110 mg/dL [place] Glucose [Mass/Vol] 62 mg/dL Low 75 - 110 mg/dL [place] Interpretation and review of laboratory results Abnormal [place] Urinalysis Reflex to Culture on 04-03-2020 Bilirubin Urine Negative NEGATIVE [facility] [place], [place] Color, UA YELLOW YELLOW [place] Glucose, Ur Negative NEGATIVE [place] Interpretation and review of laboratory results Abnormal [place] Ketones Ql (U) MODERATE Abnormal NEGATIVE [place], [place] Leukocyte esterase Test strip Ql (U) Negative NEGATIVE [place], [place] Nitrite, Urine Negative NEGATIVE [place], [place] pH, UA 6.0 [place], [place] Protein (U) [Mass/Vol] Negative NEGATIVE [place] Specific [place], UA 1.022 [place], [place] Turbidity UA CLEAR CLEAR [place] Urinalysis Comments Microscopic exam not performed based on chemical results unless requested in original order. [place] Urine Hgb Negative NEGATIVE [place] Urobilinogen, Urine Normal Normal [place] CBCon 04-02-2020 Erythrocyte distribution width (RBC) [Ratio] 23.6 % High 11.8 - 14.4 % [place] Hematocrit (Bld) [Volume fraction] 33.8 % Low 40.7 - 50.3 % [place] Hemoglobin (Bld) [Mass/Vol] 9.6 g/dL Low 13 - 17 g/dL [place] Interpretation and review of laboratory results Abnormal [place] MCH (RBC) [Entitic mass] 21.9 pg Low 25.2 - 33.5 pg [place] MCHC (RBC) [Mass/Vol] 28.4 g/dL 28.4 - 34.8 g/dL [place] MCV (RBC) [Entitic vol] 77.0 fL Low 82.6 - 102.9 fL [place] Platelet mean volume (Bld) [Entitic vol] 9.4 fL 8.1 - 13.5 fL [place] Platelets (Bld) [#/Vol] 453 10*3/uL [place] RBC (Bld) [#/Vol] 4.39 10*6/uL 4.21 - 5.7 7 m/uL [place] WBC (Bld) [#/Vol] 5.6 10*3/uL [place] WBC (Bld) [#/Vol] 0.0 10*3/uL 0.0 per 10 0 WBC [place] ABDOMEN PELVIS WO CONTRAS T [...] Loni Epps, at 5:54 p.m. on 04/02/2020. [place], [place] Incoming Radiant Results From [facility] - 04/02/2020 7:31 PM EST EXAMINATION: CT [...] Loni Epps, at 5:54 p.m. on 04/02/2020. [place] EXAMINATION: CT OF THE ABDOMEN AND [...] are seen. Midline abdominal sutures are noted. [place] Comprehensive Metabolic Pane l w/ Reflex to MGon 04-02-2020 Albumin [Mass/Vol] 1.8 g/dL Low 3.5 - 5.2 g/dL [place] Albumin/Globulin [Mass ratio] 0.6 {ratio} Low [place] ALP [Catalytic activity/Vol] 232 U/L High 40 - 129 U/L [place] ALT [Catalytic activity/Vol] 56 U/L High 5 - 41 U/L [place] Anion gap [Moles/Vol] 6 mmol/L Low 9 - 17 mmol/L [place] AST [Catalytic activity/Vol] 103 U/L High <40 [place] Bilirubin Ql (U) 0.23 mg/dL Low 0.3 - 1.2 mg/dL [place] Bun/Cre Ratio NOT REPORTED [place], [place] Calcium [Mass/Vol] 7.5 mg/dL Low 8.6 - 10. 4 mg/dL [place] Chloride [Moles/Vol] 107 mmol/L 98 - 10 7 mmol/L [place] CO2 [Moles/Vol] 22 mmol/L 20 - 31 mmol/L [place] Creatinine [Mass/Vol] 0.43 mg/dL Low 0.7 - 1.2 mg/dL [place] GFR >60 >60 mL/min [place] GFR Non- >60 >60 mL/min [place] GFR/1.73 sq M predicted among non-blacks MDRD (S/P/Bld) [Vol rate/Area] [place] Comment on above: Average GFR for 40-4 9 years old: 99 mL/min/1.73sq m Chronic Kidney Disease: <60 mL/min/1.73sq m Kidney failure: <15 mL/min/1.73sq m eGFR calculated using average adult body mass. Additional eGFR calculator available at: http://www.Quantason/multiple_crcl_2012.htm GFR/1.73 sq M predicted among non-blacks MDRD (S/P/Bld) [Vol rate/Area] NOT REPORTED [place] Glucose [Mass/Vol] 82 mg/dL 70 - 99 mg/dL [place] Interpretation and review of laboratory results Abnormal [place] Potassium [Moles/Vol] 3.9 mmol/L 3.7 - 5.3 mmol/L [place] Protein [Mass/Vol] 4.9 g/dL Low 6.4 - 8.3 g/dL [place] Sodium [Moles/Vol] 135 mmol/L 135 - 144 mmol/L [place] Urea nitrogen [Mass/Vol] 13 mg/dL 6 - 20 mg/dL [place] Path Review, Smearon 020 Pathologist Review SEE REPORT [facility] [place] Comment on above: REVIEWING PATHOLOGIST: NIKI LAZAR M.D. Surgical Pathologyon 020 Surgical Pathology Report [id number] [facility] [employer] CONSULT[facility] PATHOLOGISTS [facility] [address] [place], [place] [phone] SURGICAL PATHOLOGY CONSULTATION Patient Name: SABINA ESPINOZA MR#: [id number] Specimen #[id number] Procedures/Addenda PERIPHERAL BLOOD REPORT Date Ordered: 04/02/2020 Status: Signed Out Date Complete: 04/02/2020 By: Niki Lazar M.D. Date Reported: 04/02/2020 INTERPRETATION PERIPHERAL BLOOD: MODERATE MICROCYTIC ANEMIA; IRON STUDIES AND CLINICAL HISTORY COMPATIBLE WITH IRON DEFICIENCY ANEMIA. MILD REACTIVE THROMBOCYTOSIS. RESULTS-COMMENTS PERIPHERAL BLOOD STUDY CBC: Please see the electronic health record for CBC parameters ([id number], 04/01/2020, 08:17). PLATELETS: Platelets show normal morphology. LEUKOCYTES: White blood cells show normal morphology. There are no blasts. ERYTHROCYTES: Brigid, hypochromia, microcytosis Niki Lazar M.D. Source: 1: PERIPHERAL BLOOD FOR REVIEW BY PATHOLOGIST [facility] [place] US RETROPERITONEAL COMPLETEo n 04-02-2020 1. Mild [...] 04/02/2020to be communicated to a licensed caregiver. [facility]- [place], [place] Incoming Radiant Results From [employer] - 04/02/2020 3:25 PM EST EXAMINATION: RETROPERITONEAL [...] 04/02/2020to be communicated to a licensed caregiver. [place] EXAMINATION: RETROPERITONEAL ULTRASOUND OF THE KIDNEYS [...] bladder or along the anterior bladder wall. [place] XR ABDOMEN (KUB) (SINGLE AP VIEW)on [...] present consistent with the recent open laparoscopy. [place] Moderate distention of the ascending, transverse and proximal descending colon with a large amount of stool and residual contrast within the colon. [place] Incoming Radiant Results From [employer] - 04/02/2020 10:15 AM EST EXAMINATION: ONE [...] stool and residual contrast within the colon. [place] BASIC METABOLIC PANELon 12- Anion gap [Moles/Vol] 7 mmol/L Low 9 - 17 mmol/L [place] Bun/Cre Ratio NOT REPORTED [place] Calcium [Mass/Vol] 7.4 mg/dL Low 8.6 - 10. 4 mg/dL [place] Chloride [Moles/Vol] 106 mmol/L 98 - 10 7 mmol/L [place] CO2 [Moles/Vol] 23 mmol/L 20 - 31 mmol/L [place] Creatinine [Mass/Vol] 0.59 mg/dL Low 0.7 - 1.2 mg/dL [place] GFR >60 >60 mL/min [place] GFR Non- >60 >60 mL/min [place] GFR/1.73 sq M predicted among non-blacks MDRD (S/P/Bld) [Vol rate/Area] [place] Comment on above: Average GFR for 40-4 9 years old: 99 mL/min/1.73sq m Chronic Kidney Disease: <60 mL/min/1.73sq m Kidney failure: <15 mL/min/1.73sq m eGFR calculated using average adult body mass. Additional eGFR calculator available at: http://www.[employer].Wellfount/multiple_crcl_2012.htm GFR/1.73 sq M predicted among non-blacks MDRD (S/P/Bld) [Vol rate/Area] NOT REPORTED [place] Glucose [Mass/Vol] 86 mg/dL 70 - 99 mg/dL [place] Interpretation and review of laboratory results Abnormal [place] Potassium [Moles/Vol] 3.9 mmol/L 3.7 - 5.3 mmol/L [place] Sodium [Moles/Vol] 136 mmol/L 135 - 144 mmol/L [place] Urea nitrogen [Mass/Vol] 15 mg/dL 6 - 20 mg/dL [place] CBC WITH AUTO DIFFERENTIALon 04-01-2020 Basophils (Bld) [#/Vol] 0.00 10*3/uL [place] Basophils/100 WBC (Bld) 0 % 0 - 2 % [place] Differential Type NOT REPORTED [place] Eosinophils (Bld) [#/Vol] 0.00 10*3/uL [place] Eosinophils/100 WBC (Bld) 0 % Low 1 - 4 % [place] Erythrocyte distribution width (RBC) [Ratio] 23.8 % High 11.8 - 14.4 % [place] Hematocrit (Bld) [Volume fraction] 33.9 % Low 40.7 - 50.3 % [place] Hemoglobin (Bld) [Mass/Vol] 9.5 g/dL Low 13 - 17 g/dL [place] Immature granulocytes (Bld) [#/Vol] 0.08 10*3/uL [place] Immature granulocytes (Bld) [#/Vol] 1 % High 0 [place] Interpretation and review of laboratory results Abnormal [place] Lymphocytes (Bld) [#/Vol] 0.79 10*3/uL Low [place] Lymphocytes/100 WBC (Bld) 10 % Low 24 - 43 % [place] MCH (RBC) [Entitic mass] 21.8 pg Low 25.2 - 33.5 pg [place] MCHC (RBC) [Mass/Vol] 28.0 g/dL Low 28.4 - 34.8 g/dL [place] MCV (RBC) [Entitic vol] 77.9 fL Low 82.6 - 102.9 fL [place] Monocytes (Bld) [#/Vol] 0.87 10*3/uL [place] Monocytes/100 WBC (Bld) 11 % 3 - 12 % [place] Morphology Ezra (Bld) [Interp] ANISOCYTOSIS PRESENT [place] Morphology Ezra (Bld) [Interp] MICROCYTOSIS PRESENT [place] Morphology Ezra (Bld) [Interp] 1+ POLYCHROMASIA [place] Platelet mean volume (Bld) [Entitic vol] 9.8 fL 8.1 - 13.5 fL [place] Platelets (Bld) [#/Vol] NOT REPORTED [place] Platelets (Bld) [#/Vol] 455 10*3/uL High [place] RBC (Bld) [#/Vol] 4.35 10*6/uL 4.21 - 5.7 7 m/uL [place] RBC morphology finding Nom (Bld) NOT REPORTED [place] Segmented neutrophils/100 WBC (Bld) 78 % High 36 - 65 % [place] Segs Absolute 6.16 [place] WBC (Bld) [#/Vol] 7.9 10*3/uL [place] WBC (Bld) [#/Vol] 0.0 10*3/uL 0.0 per 10 0 WBC [place] WBC Morphology NOT REPORTED [place] Reticulocyteson 04-01-2020 Absolute Retic # 0.080 [place] Immature Retic Fract 21.5 % High 2.7 - 18.3 % [place], [place] Interpretation and review of laboratory results Abnormal [place] Retic % 1.8 % 0.5 - 1.9 % [place] Retic Hemoglobin 28.8 pg 28.2 - 35.7 pg [place] BASIC METABOLIC PANELon 12- Anion gap [Moles/Vol] 10 mmol/L 9 - 17 mmol/L [place] Bun/Cre Ratio NOT [facility]PORTED [facility] [place] Calcium [Mass/Vol] 7.3 mg/dL Low 8.6 - 10. 4 mg/dL [place] Chloride [Moles/Vol] 106 mmol/L 98 - 10 7 mmol/L [place] CO2 [Moles/Vol] 20 mmol/L 20 - 31 mmol/L [place] Creatinine [Mass/Vol] 0.73 mg/dL 0.7 - 1.2 mg/dL [place], [place] GFR >60 >60 mL/min [place] GFR Non- >60 >60 mL/min [place] GFR/1.73 sq M predicted among non-blacks MDRD (S/P/Bld) [Vol rate/Area] [place], [place] Comment on above: Average GFR for 40-4 9 years old: 99 mL/min/1.73sq m Chronic Kidney Disease: <60 mL/min/1.73sq m Kidney failure: <15 mL/min/1.73sq m eGFR calculated using average adult body mass. Additional eGFR calculator available at: http://www.[employer]/multiple_crcl_2012.htm GFR/1.73 sq M predicted among non-blacks MDRD (S/P/Bld) [Vol rate/Area] NOT REPORTED [place] Glucose [Mass/Vol] 91 mg/dL 70 - 99 mg/dL [place] Interpretation and review of laboratory results Abnormal [place] Potassium [Moles/Vol] 3.6 mmol/L Low 3.7 - 5.3 mmol/L [place] Sodium [Moles/Vol] 136 mmol/L 135 - 144 mmol/L [place] Urea nitrogen [Mass/Vol] 17 mg/dL 6 - 20 mg/dL [place] CBC WITH AUTO DIFFERENTIALon 03-31-2020 Basophils (Bld) [#/Vol] 0.00 10*3/uL [place] Basophils/100 WBC (Bld) 0 % 0 - 2 % [place] Differential Type NOT REPORTED [place] Eosinophils (Bld) [#/Vol] 0.00 10*3/uL [place] Eosinophils/100 WBC (Bld) 0 % Low 1 - 4 % [place] Erythrocyte distribution width (RBC) [Ratio] 23.1 % High 11.8 - 14.4 % [place] Hematocrit (Bld) [Volume fraction] 33.2 % Low 40.7 - 50.3 % [place] Hemoglobin (Bld) [Mass/Vol] 9.7 g/dL Low 13 - 17 g/dL [place] Immature granulocytes (Bld) [#/Vol] 0.17 10*3/uL [place] Immature granulocytes (Bld) [#/Vol] 1 % High 0 [place] Interpretation and review of laboratory results Abnormal [place] Lymphocytes (Bld) [#/Vol] 1.00 10*3/uL [place] Lymphocytes/100 WBC (Bld) 6 % Low 24 - 43 % [place] MCH (RBC) [Entitic mass] 22.2 pg Low 25.2 - 33.5 pg [place] MCHC (RBC) [Mass/Vol] 29.2 g/dL 28.4 - 34.8 g/dL [place] MCV (RBC) [Entitic vol] 76.0 fL Low 82.6 - 102.9 fL [place] Monocytes (Bld) [#/Vol] 1.16 10*3/uL [place] Monocytes/100 WBC (Bld) 7 % 3 - 12 % [place] Morphology Ezra (Bld) [Interp] MICROCYTOSIS PRESENT [place], [place] Morphology Ezra (Bld) [Interp] ANISOCYTOSIS PRESENT [place] Platelet mean volume (Bld) [Entitic vol] 10.1 fL 8.1 - 13.5 fL [place] Platelets (Bld) [#/Vol] 493 10*3/uL [place] Platelets (Bld) [#/Vol] NOT REPORTED [place] RBC (Bld) [#/Vol] 4.37 10*6/uL 4.21 - 5.7 7 m/uL [place] RBC morphology finding Nom (Bld) NOT REPORTED [place] Segmented neutrophils/100 WBC (Bld) 86 % High 36 - 65 % [place] Segs Absolute 14.27 High [place] WBC (Bld) [#/Vol] 0.0 10*3/uL 0.0 per 10 0 WBC [place] WBC (Bld) [#/Vol] 16.6 10*3/uL [place] WBC Morphology NOT REPORTED [place], [place] FERRITINon 03-31-2020 Ferritin [Mass/Vol] 17 ug/L Low 30 - 400 ug/L [place] IRON AND TIBCon 03-31-2020 Iron [Mass/Vol] 17 ug/dL Low 59 - 158 ug/dL [place], [place] Iron Saturation 9 % Low 20 - 55 % [place] TIBC 198 ug/dL Low 250 - 450 ug/dL [place] UIBC 181 ug/dL 112 - 347 ug/dL [place] Otheron 03-31-2020 Interpretation and review of laboratory results Abnormal [place] APTTon 03-30-2020 aPTT Coag (Bld) [Time] 30.5 s [place] Comment on above: IV Heparin Therapy Range: 48.6-77.8 CBCon 03-30-2020 Erythrocyte distribution width (RBC) [Ratio] 23.6 % High 11.8 - 14.4 % [place] Hematocrit (Bld) [Volume fraction] 31.5 % Low 40.7 - 50.3 % [place] Hemoglobin (Bld) [Mass/Vol] 8.8 g/dL Low 13 - 17 g/dL [place] Interpretation and review of laboratory results Abnormal [place] MCH (RBC) [Entitic mass] 22.3 pg Low 25.2 - 33.5 pg [place] MCHC (RBC) [Mass/Vol] 27.9 g/dL Low 28.4 - 34.8 g/dL [place] MCV (RBC) [Entitic vol] 79.7 fL Low 82.6 - 102.9 fL [place] Platelet mean volume (Bld) [Entitic vol] 10.1 fL 8.1 - 13.5 fL [place] Platelets (Bld) [#/Vol] 495 10*3/uL [place] RBC (Bld) [#/Vol] 3.95 10*6/uL Low 4.21 - 5.7 7 m/uL [place] WBC (Bld) [#/Vol] 0.2 10*3/uL [place] 0.0 per 10 0 WBC [place] WBC (Bld) [#/Vol] 12.7 10*3/uL [place] COVID-19on 03-30-2020 SARS-CoV-2, Rapid Not Detected Not Detected [place] Comment on above: Rapid NAAT: The [...] management decisions. Fact sheet for Healthcare Providers: https://www.fda.gov/media/098558/download Fact sheet for Patients: https://www.fda.gov/media/172972/download Methodology: Isothermal Nucleic Acid Amplification Source .NASOPHARYNGEAL SWAB [place] Comprehensive Metabolic Pane l w/ Reflex to MGon 03-30-2020 Albumin [Mass/Vol] 1.8 g/dL Low 3.5 - 5.2 g/dL [place] Albumin/Globulin [Mass ratio] 0.6 {ratio} [place] ALP [Catalytic activity/Vol] 103 U/L 40 - 129 U/L [place] ALT [Catalytic activity/Vol] 15 U/L 5 - 41 U/L [place] Anion gap [Moles/Vol] 9 mmol/L 9 - 17 mmol/L [place] AST [Catalytic activity/Vol] 32 U/L <40 [place] Bilirubin Ql (U) 0.26 mg/dL Low 0.3 - 1.2 mg/dL [place] Bun/Cre Ratio NOT REPORTED [place] Calcium [Mass/Vol] 7.5 mg/dL Low 8.6 - 10. 4 mg/dL [place] Chloride [Moles/Vol] 106 mmol/L 98 - 10 7 mmol/L [place] CO2 [Moles/Vol] 21 mmol/L 20 - 31 mmol/L [place] Creatinine [Mass/Vol] 0.71 mg/dL 0.7 - 1.2 mg/dL [place] GFR >60 >60 mL/min [place] GFR Non- >60 >60 mL/min [place] GFR/1.73 sq M predicted among non-blacks MDRD (S/P/Bld) [Vol rate/Area] [place] Comment on above: Average GFR for 40-4 9 years old: 99 mL/min/1.73sq m Chronic Kidney Disease: <60 mL/min/1.73sq m Kidney failure: <15 mL/min/1.73sq m eGFR calculated using average adult body mass. Additional eGFR calculator available at: http://www.[employer]ount/multiple_crcl_2012.htm GFR/1.73 sq M predicted among non-blacks MDRD (S/P/Bld) [Vol rate/Area] NOT REPORTED [place] Glucose [Mass/Vol] 75 mg/dL 70 - 99 mg/dL [place] Interpretation and review of laboratory results Abnormal [place] Potassium [Moles/Vol] 3.9 mmol/L 3.7 - 5.3 mmol/L [place] Protein [Mass/Vol] 4.8 g/dL Low 6.4 - 8.3 g/dL [place] Sodium [Moles/Vol] 136 mmol/L 135 - 144 mmol/L [place] Urea nitrogen [Mass/Vol] 16 mg/dL 6 - 20 mg/dL [place] Fibrinogenon 03-30-2020 Fibrinogen 396 mg/dL 140 - 420 mg/dL [place] Otheron 03-30-2020 SARS-CoV-2 [place] Protime-INRon 03-30-2020 INR Coag (PPP) [Relative time] 1.3 {INR} [place] Comment on above: Therapeutic Range: Moderate Anticoagulant Intensity: INR = 2.0-3.0 High Anticoagulant Intensity: INR = 2.5-3.5 Interpretation and review of laboratory results Abnormal [place] PT Coag (PPP) [Time] 13.3 s [place] Vital Signs Date Time Vital Sign Value Performing Clinician Facility 12-06-2022 08:30-0400 Body temperature 98.01 [degF] Chair [employer] Work Phone: [facility] 12-06-2022 08:30-0400 Diastolic blood pressure 89 mm[Hg] [employer] Work Phone: [facility] 12-06-2022 08:30-0400 Heart rate 87 /min [employer] Work Phone: [facility] 12-06-2022 08:30-0400 Respiratory rate 18 /min Chair [employer] Work Phone: [facility] 12-06-2022 08:30-0400 SaO2% (BldA) [Mass fraction] 99 % [employer] Work Phone: [facility] 12-06-2022 08:30-0400 Systolic blood pressure 127 mm[Hg] [employer] Work Phone: [facility] 11-29-2022 10:13-0400 Diastolic blood pressure 99 mm[Hg] Chair [facility] Work Phone: [facility] 11-29-2022 10:13-0400 Heart rate 105 /min Chair [facility] Work Phone: [facility] 11-29-2022 10:13-0400 Respiratory rate 18 /min [facility] Work Phone: [facility] 11-29-2022 10:13-0400 Systolic blood pressure 146 mm[Hg] [facility] Work Phone: [facility] 11-29-2022 09:25-0400 Body temperature 98.29 [degF] [facility] Work Phone: [facility] 10-25-2022 11:47-0400 Body temperature 98.6 [degF] Yina Gerardo MD Work Phone: [facility] 10-25-2022 11:47-0400 Body weight 101.24 kg Yina Gerardo MD Work Phone: [facility] 10-25-2022 11:47-0400 Diastolic blood pressure 94 mm[Hg] Yina Gerardo MD Work Phone: [facility] 10-25-2022 11:47-0400 Heart rate 114 /min Yina Gerardo MD Work Phone: [facility] 10-25-2022 11:47-0400 Respiratory rate 18 /min Yina Gerardo MD Work Phone: [facility] 10-25-2022 11:47-0400 SaO2% (BldA) [Mass fraction] 97 % Yina Gerardo MD Work Phone: [facility] 10-25-2022 11:47-0400 Systolic blood pressure 125 mm[Hg] Yina Gerardo MD Work Phone: [facility] 10-07-2021 12:04-0400 Diastolic blood pressure 96 mm[Hg] Pacc 4 Work Phone: [facility] 10-07-2021 12:04-0400 Systolic blood pressure 145 mm[Hg] Pac 4 Work Phone: [facility] 10-07-2021 11:44-0400 Body height 177.8 cm Pac 4 Work Phone: [facility] 10-07-2021 11:44-0400 Body temperature 98.2 [degF] [employer] 4 Work Phone: [facility] 10-07-2021 11:44-0400 Body weight 99.79 kg Pac 4 Work Phone: [facility] 10-07-2021 11:44-0400 Heart rate 113 /min [employer] 4 Work Phone: [facility] 10-07-2021 11:44-0400 Respiratory rate 16 /min [employer] 4 Work Phone: [facility] 10-07-2021 11:44-0400 SaO2% (BldA) [Mass fraction] 98 % Pac 4 Work Phone: [facility] 08-08-2021 14:50-0400 Diastolic blood pressure 81 mm[Hg] Alysa Asencio MD Work Phone: [facility] 08-08-2021 14:50-0400 Heart rate 88 /min Alysa Asencio MD Work Phone: [facility] 08-08-2021 14:50-0400 Respiratory rate 16 /min Alysa Asencio MD Work Phone: [facility] 08-08-2021 14:50-0400 SaO2% (BldA) [Mass fraction] 95 % Alysa Asencio MD Work Phone: [facility] 08-08-2021 14:50-0400 Systolic blood pressure 124 mm[Hg] Alysa Asencio MD Work Phone: [facility] 08-08-2021 14:12-0400 Body temperature 98.8 [degF] Alysa Asencio MD Work Phone: [facility] 07-29-2021 09:01-0400 Body height 177.3 cm Alysa Asencio MD Work Phone: [facility] 07-29-2021 09:01-0400 Body weight 100.7 kg Alysa Asencio MD Work Phone: [facility] 07-29-2021 09:01-0400 Diastolic blood pressure 88 mm[Hg] Alysa Asencio MD Work Phone: [facility] 07-29-2021 09:01-0400 Heart rate 110 /min Alysa Asencio MD Work Phone: [facility] 07-29-2021 09:01-0400 SaO2% (BldA) [Mass fraction] 99 % Alysa Asencio MD Work Phone: [facility] 07-29-2021 09:01-0400 Systolic blood pressure 142 mm[Hg] Alysa Asencio MD Work Phone: [facility] 07-04-2021 09:45-0400 Body temperature 97.7 [degF] Bia Hamilton MD Work Phone: [facility] [employer] 07-04-2021 09:45-0400 Diastolic blood pressure 91 mm[Hg] Bia Hamilton MD Work Phone: [facility] 07-04-2021 09:45-0400 Heart rate 98 /min Bia Hamilton MD Work Phone: [facility] 07-04-2021 09:45-0400 Respiratory rate 16 /min Bia Hamilton MD Work Phone: [facility] [employer] 07-04-2021 09:45-0400 SaO2% (BldA) [Mass fraction] 99 % Bia Hamilton MD Work Phone: [facility] [employer] 07-04-2021 09:45-0400 Systolic blood pressure 124 mm[Hg] Bia Hamilton MD Work Phone: [facility] [employer] 07-01-2021 15:06-0400 Body height 177.8 cm Bia Hamilton MD Work Phone: [employer] 06-30-2021 02:15-0400 Body mass index (BMI) [Ratio] 31.85 kg/m2 Bia Hamilton MD Work Phone: [employer] 06-30-2021 02:15-0400 Body weight 100.7 kg Bia Hamilton MD Work Phone: [employer] 06-22-2021 09:50-0500 Diastolic blood pressure 89 mm[Hg] Lalo Lambert MD Work Phone: [employer] 06-22-2021 09:50-0500 Heart rate 84 /min Lalo Lambert MD Work Phone: [employer] 06-22-2021 09:50-0500 Respiratory rate 16 /min Lalo Lambert MD Work Phone: [employer] 06-22-2021 09:50-0500 SaO2% (BldA) [Mass fraction] 97 % Lalo Lambert MD Work Phone: [employer] 06-22-2021 09:50-0500 Systolic blood pressure 126 mm[Hg] Lalo Lambert MD Work Phone: [employer] 06-22-2021 09:20-0500 Body temperature 97.59 [degF] Lalo Lambert MD Work Phone: [employer] 06-22-2021 08:01-0500 Body height 177.8 cm Lalo Lambert MD Work Phone: [employer] 06-22-2021 08:01-0500 Body mass index (BMI) [Ratio] 27.26 kg/m2 Lalo Lambert MD Work Phone: [employer] 06-22-2021 08:01-0500 Body weight 86.18 kg Lalo Lambert MD Work Phone: [employer] 02-17-2021 09:33-0400 Diastolic blood pressure 102 mm[Hg] Lalo Lambert MD Work Phone: [employer] Work Phone: 02-17-2021 09:33-0400 Heart rate 101 /min Lalodariana Lambert MD Work Phone: [employer] Work Phone: 02-17-2021 09:33-0400 Respiratory rate 16 /min Lalo Lambert MD Work Phone: [employer] Work Phone: 02-17-2021 09:33-0400 SaO2% (BldA) [Mass fraction] 99 % Lalo Lambert MD Work Phone: [employer] Work Phone: 02-17-2021 09:33-0400 Systolic blood pressure 131 mm[Hg] Lalo Lambert MD Work Phone: [employer] Work Phone: 02-17-2021 09:00-0400 Body temperature 98.2 [degF] Lalo Lambert MD Work Phone: [employer] Work Phone: 02-17-2021 07:49-0400 Body height 177.8 cm Lalo Lambert MD Work Phone: [employer] Work Phone: 02-17-2021 07:49-0400 Body mass index (BMI) [Ratio] 25.54 kg/m2 Lalo Lambert MD Work Phone: [employer] Work Phone: 02-17-2021 07:49-0400 Body weight 80.74 kg Lalo Lambert MD Work Phone: [employer] Work Phone: 11-25-2020 10:38-0400 Diastolic blood pressure 89 mm[Hg] Lalo Lambert MD Work Phone: [employer] Work Phone: 11-25-2020 10:38-0400 Heart rate 95 /min Lalo Lambert MD Work Phone: [employer] Work Phone: 11-25-2020 10:38-0400 Respiratory rate 18 /min Lalodariana Lambert MD Work Phone: [employer] Work Phone: 11-25-2020 10:38-0400 SaO2% (BldA) [Mass fraction] 97 % Lalo Lambert MD Work Phone: [employer] Work Phone: 11-25-2020 10:38-0400 Systolic blood pressure 128 mm[Hg] Lalo Lambert MD Work Phone: [employer] Work Phone: 11-25-2020 10:07-0400 Body temperature 98.1 [degF] Lalo Lambert MD Work Phone: [employer] Work Phone: 11-25-2020 07:32-0400 Body height 177.8 cm Lalo Lambert MD Work Phone: [employer] Work Phone: 11-25-2020 07:32-0400 Body mass index (BMI) [Ratio] 25.11 kg/m2 Lalo Lambert MD Work Phone: [employer] Work Phone: 11-25-2020 07:32-0400 Body weight 79.38 kg Lalo Lambert MD Work Phone: [employer] Work Phone: 10-28-2020 09:10-0400 Diastolic blood pressure 93 mm[Hg] Lalo Lambert MD Work Phone: [employer] Work Phone: 10-28-2020 09:10-0400 Heart rate 93 /min Lalo Fausto MD Work Phone: [employer] Work Phone: 10-28-2020 09:10-0400 Respiratory rate 14 /min Lalo Lambert MD Work Phone: [employer] Work Phone: 10-28-2020 09:10-0400 Systolic blood pressure 121 mm[Hg] Lalo Lambert MD Work Phone: [employer] Work Phone: 10-28-2020 08:55-0400 SaO2% (BldA) [Mass fraction] 95 % Lalo Lambert MD Work Phone: [employer] Work Phone: 10-28-2020 08:40-0400 Body temperature 98.6 [degF] Lalo Lambert MD Work Phone: [employer] Work Phone: 10-28-2020 07:35-0400 Body height 177.8 cm Lalo Lambert MD Work Phone: [employer] Work Phone: 10-28-2020 07:35-0400 Body mass index (BMI) [Ratio] 25.83 kg/m2 Lalo Lambert MD Work Phone: [employer] Work Phone: 10-28-2020 07:35-0400 Body weight 81.65 kg Lalo Lambert MD Work Phone: [employer] Work Phone: 09-30-2020 10:00-0400 Diastolic blood pressure 91 mm[Hg] Lalo Lambert MD Work Phone: [employer] Work Phone: 09-30-2020 10:00-0400 Heart rate 82 /min Lalo Lambert MD Work Phone: [employer] Work Phone: 09-30-2020 10:00-0400 Respiratory rate 12 /min Lalo Lambert MD Work Phone: [employer] Work Phone: 09-30-2020 10:00-0400 SaO2% (BldA) [Mass fraction] 99 % Lalo Lambert MD Work Phone: [employer] Work Phone: 09-30-2020 10:00-0400 Systolic blood pressure 126 mm[Hg] Lalo Lambert MD Work Phone: [employer] Work Phone: 09-30-2020 09:18-0400 Body temperature 97.81 [degF] Lalo Lambert MD Work Phone: [employer] Work Phone: 09-30-2020 07:05-0400 Body height 177.8 cm Lalo Lambert MD Work Phone: [employer] Work Phone: 09-30-2020 07:05-0400 Body mass index (BMI) [Ratio] 24.39 kg/m2 Lalo Lambert MD Work Phone: [employer] Work Phone: 09-30-2020 07:05-0400 Body weight 77.11 kg Lalo Lambert MD Work Phone: [employer] Work Phone: 09-02-2020 11:30-0400 Diastolic blood pressure 85 mm[Hg] Lalo Lambert MD Work Phone: [employer] Work Phone: 09-02-2020 11:30-0400 SaO2% (BldA) [Mass fraction] 98 % Lalo Lambert MD Work Phone: [employer] Work Phone: 09-02-2020 11:30-0400 Systolic blood pressure 124 mm[Hg] Lalo Lambert MD Work Phone: [employer] Work Phone: 09-02-2020 11:15-0400 Heart rate 75 /min Lalo Lambert MD Work Phone: [employer] Work Phone: 09-02-2020 11:15-0400 Respiratory rate 21 /min Lalo Lambert MD Work Phone: [employer] Work Phone: 09-02-2020 08:31-0400 Body height 177.8 cm Lalo Lambert MD Work Phone: [employer] Work Phone: 09-02-2020 08:31-0400 Body mass index (BMI) [Ratio] 24.39 kg/m2 Lalo Lambert MD Work Phone: [employer] Work Phone: 09-02-2020 08:31-0400 Body temperature 97.7 [degF] Lalo Lmabert MD Work Phone: [employer] Work Phone: 09-02-2020 08:31-0400 Body weight 77.11 kg Lalo Lambert MD Work Phone: [employer] Work Phone: 08-05-2020 10:48-0400 Diastolic blood pressure 97 mm[Hg] Lalo Lambert MD Work Phone: [employer] Work Phone: 08-05-2020 10:48-0400 Heart rate 93 /min Lalo Lambert MD Work Phone: [employer] Work Phone: 08-05-2020 10:48-0400 Respiratory rate 14 /min Lalo Lambert MD Work Phone: [employer] Work Phone: 08-05-2020 10:48-0400 SaO2% (BldA) [Mass fraction] 95 % Lalodariana Lambert MD Work Phone: [employer] Work Phone: 08-05-2020 10:48-0400 Systolic blood pressure 132 mm[Hg] Lalodariana Lambert MD Work Phone: [employer] Work Phone: 08-05-2020 10:03-0400 Body temperature 98.2 [degF] Lalo Lambert MD Work Phone: [employer] Work Phone: 08-05-2020 08:40-0400 Body height 177.8 cm Lalo Lambert MD Work Phone: [employer] Work Phone: 08-05-2020 08:40-0400 Body mass index (BMI) [Ratio] 23.68 kg/m2 Lalodariana Lambert MD Work Phone: [employer] Work Phone: 08-05-2020 08:40-0400 Body weight 74.84 kg Lalo Lambert MD Work Phone: [employer] Work Phone: 07-22-2020 14:00-0400 BP Diastolic 99 mm[Hg] Lalo Fausto [employer] Work Phone: 07-22-2020 14:00-0400 BP Systolic 133 mm[Hg] Lalo Fausto [employer] Work Phone: 07-22-2020 14:00-0400 Pulse (Heart Rate) 86 /min Lalodariana Lambert [facility] Work Phone: 07-22-2020 14:00-0400 Pulse Oximetry 96 % Lalo Fausto [facility] Work Phone: 07-22-2020 14:00-0400 Respiratory Rate 20 /min Lalo Fausto [facility] Work Phone: 07-22-2020 13:30-0400 Body Temperature 98.01 [degF] Lalo Fausto [facility] Work Phone: 07-22-2020 10:48-0400 BMI (Body Mass Index) 22.24 kg/m2 Lalo Fausto [employer] [facility] Work Phone: 07-22-2020 10:48-0400 Body weight 70.31 kg Lalo Fausot [facility] Work Phone: 07-22-2020 10:48-0400 Height 177.8 cm Lalo Fausto [facility] Work Phone: 07-08-2020 09:07-0400 BP Diastolic 109 mm[Hg] Lalo Fausto [facility] Work Phone: 07-08-2020 09:07-0400 BP Systolic 148 mm[Hg] Lalo Fausto [facility] Work Phone: 07-08-2020 09:07-0400 Pulse (Heart Rate) 98 /min Lalo Fausto [facility] Work Phone: 07-08-2020 09:07-0400 Pulse Oximetry 98 % Lalo Fausto [facility] Work Phone: 07-08-2020 09:07-0400 Respiratory Rate 13 /min Lalo Fausto [facility] Work Phone: 07-08-2020 08:37-0400 Body Temperature 97.81 [degF] Lalo Fausto [facility] Work Phone: 07-08-2020 07:51-0400 BMI (Body Mass Index) 21.52 kg/m2 Lalo Fausto [employer] [facility] Work Phone: 07-08-2020 07:51-0400 Body weight 68.04 kg Lalo Fausto [facility] Work Phone: 07-08-2020 07:51-0400 Height 177.8 cm Lalo Fausto [facility] Work Phone: 06-24-2020 09:35-0500 BP Diastolic 94 mm[Hg] Lalo Fausto [facility] Work Phone: 06-24-2020 09:35-0500 BP Systolic 128 mm[Hg] Lalo Fausto [facility] Work Phone: 06-24-2020 09:35-0500 Pulse (Heart Rate) 97 /min Lalo Fausto [facility] Work Phone: 06-24-2020 09:35-0500 Pulse Oximetry 98 % Lalo Fausto [facility] Work Phone: 06-24-2020 09:35-0500 Respiratory Rate 18 /min Lalo Fausto [facility] Work Phone: 06-24-2020 09:05-0500 Body Temperature 97.9 [degF] Llao Fausto [facility] Work Phone: 06-24-2020 07:18-0500 BMI (Body Mass Index) 20.95 kg/m2 Lalo Fausto [facility] [facility] Work Phone: 06-24-2020 07:18-0500 Body weight 66.22 kg Lalo Fausto [facility] Work Phone: 06-24-2020 07:18-0500 Height 177.8 cm Lalo Fausto [facility] Work Phone: 05-27-2020 13:12-0500 Body Temperature 98.01 [degF] [facility] Work Phone: 05-27-2020 13:12-0500 BP Diastolic 102 mm[Hg] Jose Bello [employer] [employer] Work Phone: 05-27-2020 13:12-0500 BP Systolic 127 mm[Hg] Jose Augustine [employer] Work Phone: 05-27-2020 13:12-0500 Pulse (Heart Rate) 92 /min [facility] Work [facility]: 05-27-2020 13:12-0500 Pulse Oximetry 99 % Jose Rosario [employer] [employer] Work Phone: 05-27-2020 13:12-0500 Respiratory Rate 16 /min Jose Bello [employer] Work Phone: 05-27-2020 12:04-0500 Height 177.8 cm Jose Kulkarni [employer] Work Phone: 05-27-2020 06:00-0500 BMI (Body Mass Index) 22.53 kg/m2 Jose Kulkarni [facility] Work Phone: 05-27-2020 06:00-0500 Body weight 71.22 kg Jose Kulkarni [employer] Work Phone: 04-12-2020 06:43-0500 Body Temperature 97.59 [degF] [employer] [place] 04-12-2020 06:43-0500 BP Diastolic 94 mm[Hg] [place] [employer] [place] , [place] 04-12-2020 06:43-0500 BP Systolic 142 mm[Hg] [employer] [place] , [place] 04-12-2020 06:43-0500 Pulse (Heart Rate) 89 /min [place] [employer] [facility], [place] 04-12-2020 06:43-0500 Pulse Oximetry 94 % [place] [employer] [facility] [place] 04-12-2020 06:43-0500 Respiratory Rate 16 /min [facility] [place] [place] 04-09-2020 23:15-0500 BMI (Body Mass Index) 28.88 kg/m2 [facility] [place] [place] 04-09-2020 23:15-0500 Body weight 91.3 kg [facility] [place] 04-09-2020 23:15-0500 Height 177.8 [facility] [place] 04-08-2020 16:35-0500 Body Temperature 97.9 [degF] [facility] [place] 04-08-2020 16:35-0500 BP Diastolic 111 mm[Hg] [facility], [place] 04-08-2020 16:35-0500 BP Systolic 151 mm[Hg] [facility], [place] 04-08-2020 16:35-0500 Pulse (Heart Rate) 83 /min [facility] [place] 04-08-2020 16:35-0500 Pulse Oximetry 97 % [facility], [place] 04-08-2020 16:35-0500 Respiratory Rate 10 /min [facility] [place] 04-08-2020 05:03-0500 BMI (Body Mass Index) 28.88 kg/m2 [facility] [place] 04-08-2020 05:03-0500 Body weight 91.3 kg [facility] [place] 04-01-2020 13:16-0500 Height 177.8 cm [facility], [place] Encounters Encounter Date Encounter Type Care Provider Facility Start: 07-02-2023 End: 07-02-2023 [facility] Start: 06-06-2023 End: 06-07-2023 ambulatory [facility] Start: 12-06-2022 End: 12-07-2022 ambulatory YINA GERARDO Facility:[facility] Start: 12-06-2022 End: 12-06-2022 ambulatory Chair [address] Work Phone: Hematology/Oncology Comment on above: Iron deficiency anem ia secondary to inadequate dietary iron intake (Primary Dx) Start: 11-30-2022 Telephone encounter Anay Tee MD Work Phone: Dermatology Comment on above: 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 Start: 11-29-2022 End: 11-30-2022 ambulatory YINA ERMELINDA Facility:[facility] Start: 11-29-2022 End: 11-29-2022 ambulatory Chair [address] Work Phone: Hematology/Oncology Comment on above: Iron deficiency anem ia secondary to inadequate dietary iron intake (Primary Dx) Start: 11-22-2022 End: 11-23-2022 ambulatory YINA GERARDO Facility:[facility] Start: 11-14-2022 Telephone encounter Yina gomez MD Work Phone: Hematology/Oncology Comment on above: Results; Care Coordi nator - Other (Tumor board discussion) Start: 11-08-2022 End: 11-09-2022 ambulatory YINA GERARDO Facility:[facility] Start: 10-25-2022 End: 10-25-2022 ambulatory Yina Gerardo MD Work Phone: Hematology/Oncology Comment on above: Squamous cell carcin brenda of skin (Primary Dx); Skin cancer; Infection in abdomen (HCC) Start: 10-25-2022 End: 10-25-2022 Patient encounter procedure Yina Gerardo MD Work Phone: [facility] Start: 10-13-2022 Telephone encounter Sabina BENJAMIN-C Work Phone: General Surgery Comment on above: Results Start: 10-12-2022 Telephone encounter Alysa Asencio MD Work Phone: General Surgery Comment on above: Orders; Patient Upda te Start: 07-30-2022 End: 07-30-[address] OBDULIA GARCIA . Facility: Start: 07-06-2022 End: 07-07-[address] DOCTOR RAMIREZ Facility:[facility] Start: 06-06-2022 End: 06-06-[address] DOCTOR RAMIREZ Facility:[facility] Start: 03-30-2022 End: 03-31-2022 ambulatory RON JOSUE Facility:[facility] Start: 03-28-2022 End: 03-29-[address] KHOI MORILLO . 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 Start: 01-03-2022 Telephone encounter Sabina cardenas PA-C Work Phone: General Surgery Comment on above: Returning Patient's Call Start: 01-02-2022 Telephone encounter Alysa Asencio MD Work Phone: General Surgery Comment on above: Patient Update; Appo intment Start: 12-17-2021 Telephone encounter Bess Felix MD Work Phone: [facility] Comment on above: Patient Question; Re turning [...] Hours Appointment Start: 11-20-2021 Telephone encounter Carlotta Farah RN General Surgery Comment on above: Returning Patient's Call Start: 11-16-2021 Telephone encounter Alysa Asencio MD Work Phone: General Surgery Comment on above: Appointment; Patient Question Start: 11-14-20[address] Work Phone: General Surgery Start: 11-09-2021 Telephone encounter Alysa Asencio MD Work Phone: General Surgery Comment on above: Appointment Start: 11-08-2021 Telephone encounter Carlotta Farah RN General Surgery Comment on above: Post Op Follow Up Start: 11-07-2021 End: 11-07-[address] DOCTOR RAMIREZ Facility:[facility] Start: 10-31-2021 End: 10-31-[address] DOCTOR RAMIREZ Facility:[facility] Start: 10-27-2021 ambulatory Jamilah Thomas on WATCH TRAIN INSPECTOR.MOBILE APPLICATION ARCHITECT Work Phone: Urology Start: 10-26-2021 Orders Only Marnie Muhammad WATCH TRAIN INSPECTOR.MOBILE APPLICATION ARCHITECT Work Phone: Vascular Medicine Comment on above: [...] 10-07-2021 Patient encounter procedure Alondra Harper RT(R) ANDREW Start: 10-07-2021 End: 10-07-2021 Preprocedural examination done Alysa Asencio MD Work Phone: Radiology Start: 10-07-2021 End: 10-07-2021 Subsequent hospital visit by physician Alysa Asencio MD Work Phone: Radiology Comment on above: 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] Start: 10-07-2021 End: 10-07-2021 Admission to establishment [place] [id number] Work Phone: [facility] Start: 10-07-2021 End: 10-07-2021 Preprocedural examination done [facility] Work Phone: Pre Anesthesia Start: 10-03-2021 Telephone encounter Alysa Asencio MD Work Phone: General Surgery Comment on above: Patient Question Patient Update Start: 10-03-2021 End: 10-03-[address] DOCTOR RAMIREZ Facility:[facility] Start: 09-23-2021 Telephone encounter Carlotta Farah RN General Surgery Comment on above: Patient Update Start: 09-19-2021 End: 09-19-[address] DOCTOR RAMIREZ Facility:[facility] Start: 08-30-2021 End: 08-30-[address] DOCTOR RAMIREZ Facility:[facility] Start: 08-29-2021 End: 08-29-[address] DOCTOR RAMIREZ Facility:[facility] Start: 08-26-2021 ambulatory Carlotta Farah RN Gen eral Surgery Comment on above: 10/04/2021 Start: 08-26-2021 Preprocedural examination done Carlotta Farah RN General Surgery Start: 08-26-2021 Telephone encounter Alysa Asencio MD Work Phone: General Surgery Comment on above: Patient Question Called Back Start: 08-23-2021 Telephone encounter Alysa Asencio MD Work Phone: General Surgery Comment on above: Appointment Start: 08-19-2021 Telephone encounter Carlotta Farah RN General Surgery Comment on above: Patient [...] esophagus; Gastric fistula Start: 07-27-2021 ambulatory Carlotta Farah RN Gen eral Surgery Start: 06-30-2021 End: 07-04-2021 Evaluation and management of inpatient [facility] Start: 06-30-2021 End: 07-04-2021 Evaluation and management of inpatient Bia Hamilton MD Work Phone: [facility] Onc/Med Surg Start: 06-22-2021 End: 06-22-2021 ambulatory [facility] Start: 06-22-2021 End: 06-22-2021 Subsequent hospital visit by physician Lalo Lambert MD Work Phone: [facility] Start: 02-17-2021 End: 02-17-2021 ambulatory [facility] Start: 02-17-2021 End: 02-17-2021 Subsequent hospital visit by physician Lalo Lambert MD Work Phone: [facility] Start: 02-03-2021 End: 02-03-2021 [facility] Start: 11-25-2020 End: 11-25-2020 ambulatory [facility] Start: 11-25-2020 End: 11-25-2020 Subsequent hospital visit by physician Lalo Lambert MD Work Phone: [facility] Start: 10-28-2020 End: 10-28-2020 [facility] Start: 10-28-2020 End: 10-28-2020 Subsequent hospital visit by physician Lalo Lambert MD Work Phone: [facility] Start: 09-30-2020 End: 09-30-2020 [facility] Start: 09-30-2020 End: 09-30-2020 Subsequent hospital visit by physician Lalo Lambert MD Work Phone: [facility] Start: 09-16-2020 End: 09-16-2020 ambulatory [facility] Start: 09-02-2020 End: 09-02-2020 ambulatory [facility] Start: 09-02-2020 End: 09-02-2020 Subsequent hospital visit by physician Lalo Lambert MD Work Phone: [facility] Start: 08-30-2020 End: 09-04-2020 ambulatory [facility]UAN [facility]UEVARA [facility] Start: 08-30-2020 End: 09-03-2020 Patient encounter status [facility] Schedule [facility] PRE ADMIT Start: 08-30-2020 End: 09-03-2020 Subsequent hospital visit by physician Gabriella Hairston19 Pat Screening Schedule [facility] PRE ADMIT Comment on above: Preoperative testing Start: 08-16-2020 End: 08-21-2020 ambulatory JUAN GUEVARA [facility] Start: 08-05-2020 End: 08-05-2020 ambulatory [facility] Start: 08-05-2020 End: 08-05-2020 Subsequent hospital visit by physician Lalo Lambert MD Work Phone: [facility] Start: 08-02-2020 End: 08-07-2020 ambulatory JUAN GUEVARA [facility] Start: 08-02-2020 End: 08-06-2020 Patient encounter status [facility] Schedule MTHZ PRE ADMIT Start: 08-02-2020 End: 08-06-2020 Subsequent hospital visit by physician Gabriella Hairston19 Pat Screening Schedule [facility] PRE ADMIT Comment on above: Preoperative testing Start: 07-22-2020 End: 07-22-2020 ambulatory [facility] Start: 07-22-2020 End: 07-22-2020 Subsequent hospital visit by physician Lalo Lambert Work Phone: [facility] Start: 07-19-2020 End: 07-24-2020 ambulatory FREDO GUEVARA [facility] Start: 07-19-2020 End: 07-23-2020 Subsequent hospital visit by physician Gabriella Covid19 Pat Screening Schedule [facility] PRE ADMIT Comment on above: Preoperative testing Start: 07-08-2020 End: 07-08-2020 Subsequent hospital visit by physician Lalo Lambert Work Phone: [facility] Start: 07-05-2020 End: 07-10-2020 [facility] Start: 06-24-2020 End: 06-24-2020 Subsequent hospital visit by physician Lalo Lambert Work Phone: [facility] Start: 06-18-2020 End: 06-23-2020 [facility] Start: 05-23-2020 End: 05-27-2020 Evaluation [...] 04-08-2020 Evaluation and management of inpatient Guyd Kaitlyn Bello Work Phone: [facility] 4B Stepdown Comment on above: Post-op pain (Primar y Dx) Procedures Date Procedure Procedure Detail Performing Clinician Start: 10-07-2021 Radiologic exam ches t 2 views Carlotta Farah RN Start: 08-08-2021 Esophagoscp rig loyd soral hypopharynx crv esoph Carlotta Farah RN Start: 07-02-2021 Basic metabolic pane l calcium total Guyd Kaitlyn Bello DO Work Phone: Start: 07-01-2021 25 [...] port age 3 yr/> Jewel A Lexi WATCH TRAIN INSPECTOR - MOBILE APPLICATION ARCHITECT Work Phone: Start: 06-30-2021 Nursing procedure Jewel A Lexi WATCH TRAIN INSPECTOR - MOBILE APPLICATION ARCHITECT Work Phone: Start: 06-30-2021 End: 06-30-2021 EGD FOREIGN BODY REMOVAL Hayder Peng MD Work Phone: Start: 06-30-2021 COVID-19, RAPID Jewel A Lexi WATCH TRAIN INSPECTOR - MOBILE APPLICATION ARCHITECT Work Phone: Start: 06-30-2021 Blood count complete auto&auto difrntl wbc Jewel A Lexi WATCH TRAIN INSPECTOR - MOBILE APPLICATION ARCHITECT Work Phone: Start: 06-30-2021 IMMATURE PLATELET FRACTION Jewel A Lexi WATCH TRAIN INSPECTOR - MOBILE APPLICATION ARCHITECT Work Phone: Start: 06-30-2021 Assay of magnesium Brad Hamilton MD Work Phone: Start: 06-30-2021 BASIC METABOLIC PANE L W/ REFLEX TO MG FOR LOW K Bia Hamilton MD Work Phone: Start: 08-30-2020 COVID-19 Fredo parrish MD Work Phone: Start: 08-02-2020 COVID-19 Fredo parrish MD Work Phone: Start: 07-19-2020 COVID-19 Fredo parrish Work Phone: Start: 05-27-2020 Glucose blood reagent strip Ady [place] Shine Work Phone: Start: 05-27-2020 Assay of magnesium Moha mmad I Mashaleh Work Phone: Start: 05-27-2020 Assay of phosphorus inorganic Mohammad I Mashaleh Work Phone: Start: 05-27-2020 Blood count complete auto&auto difrntl wbc Mohammad I Mashaleh Work Phone: Start: 05-27-2020 Glucose blood reagent strip Ady [place] Shine Work Phone: Start: 05-26-2020 Glucose blood reagent strip Ady Shine Work Phone: Start: 05-26-2020 COVID-19 Madeeha Sh afqat Work Phone: Start: 05-26-2020 Glucose blood reagent strip Ady Delaneydon Work Phone: Start: 05-26-2020 Assay of magnesium Moha mmad I Mashaleh Work Phone: Start: 05-26-2020 Assay of phosphorus inorganic Mohammad I Mashaleh Work Phone: Start: 05-26-2020 Blood count complete auto&auto difrntl wbc Mohammad I Mashaleh Work Phone: Start: 05-26-2020 Calcium ionized Ady Delaneydon Work Phone: Start: 05-25-2020 Glucose blood reagent strip Ady Shine Work Phone: Start: 05-25-2020 Glucose blood reagent strip Ady Shine Work Phone: Start: 05-25-2020 Glucose blood reagent strip Ady Shine Work Phone: Start: 05-25-2020 Assay of magnesium Moha mmad I Mashaleh Work Phone: Start: 05-25-2020 Assay of phosphorus inorganic Guyd I Eugenia Work Phone: Start: 05-25-2020 Assay of triglycerides Guyd I Eugenia Work Phone: Start: 05-25-2020 Blood count complete auto&auto difrntl wbc Mohtanvird I Abrahameh Work Phone: Start: 05-25-2020 Glucose blood reagent strip Ady Shine Work Phone: Start: 05-25-2020 Glucose blood reagent strip Guyd I Eugenia Work Phone: Start: 05-24-2020 TPN PROFILE Guyd [...] wbc Guyd I Eugenia Work Phone: Start: 05-24-2020 Iron binding capacity M ohammad I Eugenia Work Phone: Start: 05-24-2020 Prothrombin time Mohamm ad I Eugenia Work Phone: Start: 05-23-2020 Radiologic exam abdo men 1 view Verónicaammad I Eugenia Work Phone: Start: 05-23-2020 Assay of magnesium Moha mmad I Eugenia Work Phone: Start: 05-23-2020 Blood count complete auto&auto difrntl wbc Mohammad I Eugenia Work Phone: Start: 04-12-2020 Basic metabolic pane [...] [place] J Orlop Work Phone: Start: 04-10-2020 Glucose blood reagent strip [place] J Orlop Work Phone: Start: 04-10-2020 Glucose blood reagent strip [place] J Orlop Work Phone: Start: 04-10-2020 Radex small intestin e w/multiple serial images Juanjose Barrera Santos Work Phone: Start: 04-10-2020 Glucose blood [...] Start: 04-08-2020 Assay of phosphorus inorganic Mervin betaworks Work Phone: Start: 04-08-2020 Basic metabolic pane l calcium total Mervin Carrillo Work Phone: Start: 04-08-2020 Blood count complete automated Arlyn Villegas Work Phone: Start: 04-08-2020 Glucose blood reagent strip [place] Ann Orlop Work Phone: Start: 04-07-2020 Assay of magnesium Barry ael A Work Phone: Start: 04-07-2020 Assay of phosphorus inorganic Mervin Carrillo Work Phone: Start: 04-07-2020 Basic metabolic pane l calcium total Filiberto Gastelum Carrillo Work Phone: Start: 04-07-2020 Blood count complete automated Arlyn Villegas Work Phone: Start: 04-07-2020 Glucose blood reagent strip Houston Embarkly Orlop Work Phone: Start: 04-06-2020 Glucose blood reagent strip [place] Embarkly Orlop Work Phone: Start: 04-06-2020 End: 04-06-2020 Glucose blood reagent strip [employer] rojeliop Work Phone: Start: 04-06-2020 Assay of magnesium Barry ael A Carrillo Work Phone: Start: 04-06-2020 Assay of phosphorus inorganic Filiberto Gastelum Carrillo Work Phone: Start: 04-06-2020 Assay of triglycerides Filiberto Gastelum Carrillo Work Phone: Start: 04-06-2020 Basic metabolic pane l calcium total Filiberto Carrillo Work Phone: Start: 04-05-2020 Glucose blood reagent strip Dinesh Burgess Work Phone: Start: 04-05-2020 Insj prph ctr [...] Phone: Start: 04-03-2020 Assay of magnesium Will edna Lobato Work Phone: Start: 04-03-2020 End: 04-03-2020 Glucose blood reagent strip Dinesh Burgess Work Phone: Start: 04-03-2020 Culture bacterial quanttative colony count urine Daniel Moyer Work Phone: Start: 04-03-2020 End: 04-03-2020 LAPAROTOMY EXPLORATORY Daniel klein Work Phone: Start: 04-03-2020 Radex gi tract upper w/wo delayed images w/o kub Crystal I Halie Work Phone: Start: 04-03-2020 Basic metabolic pane l calcium total Saranya Patel Work Phone: Start: 04-03-2020 Blood count complete auto&auto difrntl wbc Saranya Patel Work Phone: Start: 04-02-2020 Ct abdomen & pelvis w/o contrast material Arlyn Villegas Work Phone: Start: 04-02-2020 Us retroperitoneal r eal time w/image complete Arlyn Villegas Work Phone: Start: 04-02-2020 End: 04-02-2020 Dup-scan xtr veins unilateral/limited study Arlyn Villegas Work Phone: Start: 04-02-2020 Radiologic exam abdo men 1 view Filiberto Carrillo Work Phone: Start: 04-02-2020 Urnls dip stick/tabl et rgnt auto w/o microscopy Arlyn Villegas Work Phone: Start: 04-02-2020 Blood count complete auto&auto difrntl wbc Deneen Bartholomew [employer] Work Phone: Start: 04-02-2020 Blood count complete automated Deneen Bartholomew [employer] Work Phone: Start: 04-01-2020 Basic metabolic pane l calcium total Saranya Juarez Imheike Work Phone: Start: 04-01-2020 Blood count complete auto&auto difrntl wbc Saranya J Imel Work Phone: Start: 04-01-2020 Blood count reticulo cyte automated Filiberto Carrillo Work Phone: Start: 04-01-2020 Blood smear peripher al interp phys w/writ report Filiberto Carrillo Work Phone: Start: 04-01-2020 Level iv surg pathol ogy gross&microscopic exam Dinesh Burgess Work Phone: Start: 03-31-2020 LAB SCANNED REPORT Hpf Scanning Start: 03-31-2020 Assay of ferritin Choco heike Gastelum Carrillo Work Phone: Start: 03-31-2020 Assay of thiamine-vi tamin b-1 Filiberto Gastelum Carrillo Work Phone: Start: 03-31-2020 Basic metabolic pane l calcium total Saranya Patel Work Phone: Start: 03-31-2020 Blood count complete auto&auto difrntl wbc Saranya Patel Work Phone: Start: 03-31-2020 Iron binding capacity M ayan Gastelum Carrillo Work Phone: Start: 03-30-2020 End: 03-30-2020 LAPAROSCOPY EXPLORATORY Daniel Verdin on Work Phone: Start: 03-30-2020 COVID-19 Filiberto Carrillo Work Phone: Start: 03-30-2020 Blood count complete auto&auto difrntl wbc Blanche L Tobian Work Phone: Start: 03-30-2020 Blood count complete automated Blanche L Tobian Work Phone: Start: 03-30-2020 Fibrinogen activity Miguel Desouza Work Phone: Start: 03-30-2020 Prothrombin time Blanche Desouza Work Phone: Start: 03-30-2020 Thromboplastin time partial plasma/whole blood Blanche Desouza Work Phone: Plan of Treatment Date Care Activity Detail Author Start: 12-15-2022 Influenza vaccination INFLUENZA (#1) [facility] Start: 10-26-2022 End: 11-24-2023 Ct abdomen & pelvis w/contrast material CT ABD/PEL W IVCON Radiology Routine Skin cancer Infection in abdomen (HCC) Expected: 10/26/2022, Expires: 11/24/2023 [facility] Work Phone: Comment on above: Expected: 10/26/2022, Expires: 4 Start: 10-26-2022 End: 11-24-2023 CT CHEST W IVCON CT CHEST W IVCON Radiology Routine Skin cancer Expected: 10/26/2022, Expires: 11/24/2023 [facility] Work Phone: Comment on above: Expected: 10/26/2022, Expires: 4 Start: 10-25-2022 End: 12-25-2022 CBC W Auto Differential panel - Blood CBC + DIFF Lab Routine Skin cancer Expected: 10/25/2022, Expires: 12/25/2022 [facility] Work Phone: Comment on above: Expected: 10/25/2022, Expires: 3 Start: 10-25-2022 End: 12-25-2022 Comprehensive metabolic 2000 panel - Serum or Plasma COMP METABOLIC PANEL Lab Routine Skin cancer Expected: 10/25/2022, Expires: 12/25/2022 [facility] Work Phone: Comment on above: Expected: 10/25/2022, Expires: 3 Start: 10-25-2022 End: 12-25-2022 Ferritin [Mass/volume] in Serum or Plasma FERRITIN BLD Lab Routine Skin cancer Expected: 10/25/2022, Expires: 12/25/2022 [facility] Work Phone: Comment on above: Expected: 10/25/2022, Expires: 3 Start: 10-25-2022 End: 12-25-2022 Folate [Mass/volume] in Serum or Plasma FOLATE SERUM Lab Routine Skin cancer Expected: 10/25/2022, Expires: 12/25/2022 [facility] Work Phone: Comment on above: Expected: 10/25/2022, Expires: 3 Start: 10-25-2022 End: 12-25-2022 Iron and Iron binding capacity panel - Serum or Plasma IRON + TIBC Lab Routine Skin cancer Expected: 10/25/2022, Expires: 12/25/2022 [facility] Work Phone: Comment on above: Expected: 10/25/2022, Expires: 3 Start: 09-21-2022 ambulatory Ambulatory Facility: Start: 09-05-2022 ambulatory Ambulatory Facility: Start: 07-02-2022 Creatinine measurement Creatinine monitoring [facility] Start: 07-02-2022 Potassium monitoring Potassium monitoring [facility] Start: 04-16-2022 DEPRESSION ASSESSMENT DEPRESSION ASSESSMENT [facility] Start: 12-15-2021 Influenza vaccination [facility] Start: 08-29-2021 End: 10-29-2021 CBC W Auto Differential panel - Blood CBC + DIFF Lab Routine Gastrojejunal ulcer Epigastric pain Preoperative examination Expected: 08/29/2021 (Approximate), Expires: 10/29/2021 [facility] Work Phone: Comment on above: Expected: 08/29/2021 (Approximate), Expi res: 10/29/2021 Start: 08-29-2021 End: 10-29-2021 Comprehensive metabolic 2000 panel - Serum or Plasma COMP METABOLIC PANEL Lab Routine Gastrojejunal ulcer Epigastric pain Preoperative examination Expected: 08/29/2021 (Approximate), Expires: 10/29/2021 [facility] Work Phone: Comment on above: Expected: 08/29/2021 (Approximate), Expi res: 10/29/2021 Start: 08-29-2021 End: 10-29-2021 CONFIRM BLOOD TYPE CONFIRM BLOOD TYPE Blood Bank Routine Gastrojejunal ulcer Epigastric pain Preoperative examination Expected: 08/29/2021, Expires: 10/29/2021 [facility] Work Phone: Comment on above: Expected: 08/29/2021, Expires: 2 Start: 08-29-2021 End: 10-29-2021 TYPE AND SCREEN,30 DAY TYPE AND SCREEN,30 DAY Blood Bank Routine Gastrojejunal ulcer Epigastric pain Preoperative examination Expected: 08/29/2021, Expires: 10/29/2021 [facility] Work Phone: Comment on above: Expected: 08/29/2021, Expires: 2 Start: 07-01-2021 End: 07-01-2021 Evaluation and management of inpatient 07/01/2021 Telemedicine Gastroenterology Delroy Ball MD [address] [place] [address] [facility] Start: 06-22-2021 End: 06-22-2021 Esophagogastroduodenoscopy transoral diagnostic EGD ESOPHAGOGASTRODUODENOSCOPY ANASTOMOTIC STENOSIS GASTRO-JEJUNOSTOMY 06/22/2021 9:11 AM EST [facility] Start: 05-31-2021 Creatinine measurement Creatinine monitoring [facility] Start: 05-31-2021 Potassium monitoring Potassium monitoring [facility] Start: 05-27-2021 Creatinine measurement Creatinine monitoring [facility] Work Phone: Start: 05-27-2021 Potassium monitoring Potassium monitoring [facility] Work Phone: Start: 05-04-2021 COVID-19 VACCINE (4 - Booster for Pfizer series) COVID-19 VACCINE (4 - Booster for Pfizer series) [facility] Start: 05-04-2021 COVID-19 VACCINE (4 - Pfizer series) COVID-19 VACCINE (4 - Pfizer series) [facility] Start: 04-16-2021 DEPRESSION ASSESSMENT DEPRESSION ASSESSMENT [facility] Start: 04-12-2021 Creatinine measurement Creatinine monitoring [facility] [place] Start: 04-12-2021 Potassium monitoring Potassium monitoring [facility] [place] Start: 04-08-2021 Creatinine measurement Creatinine monitoring [facility] [place] Start: 04-08-2021 Potassium monitoring Potassium monitoring [facility] [place] Start: 01-14-2021 COVID-19 Vaccine (3 - Booster for Pfizer series) COVID-19 Vaccine (3 - Booster for Pfizer series) [facility] Start: 12-15-2020 Influenza vaccination Flu vaccine (#1) [facility] Start: 08-14-2020 COVID-19 Vaccine (2 - Pfizer 2-dose series) COVID-19 Vaccine (2 - Pfizer 2-dose series) [facility] [employer] Phone: Start: 2018 Lipid panel Lipid screen [facility] Start: 2013 Diabetes screen Diabetes screen [facility] Start: 2013 LIPID SCREEN LIPID SCREEN [facility] Start: 1997 DTaP/Tdap/Td vaccine (1 - Tdap) DTaP/Tdap/Td vaccine (1 - Tdap) [facility] Start: 1997 Urine microalbumin profile DTAP,TDAP,TD (1 - Tdap) [facility] Start: 1996 ANNUAL PCP TEAM CHRONIC DISEASE VISIT ANNUAL PCP TEAM CHRONIC DISEASE VISIT [facility] Start: 1996 BP CONTROLLED (<130/80) BP CONTROLLED (<130/80) [facility] Start: 1996 HEPATITIS C SCREENING HEPATITIS C SCREENING [facility] Start: 1996 HIV SCREENING HIV SCREENING [facility] Start: 1994 COVID-19 Vaccine (1) COVID-19 Vaccine (1) [facility] [employer] Phone: Start: 1993 HIV screening HIV screen [facility] Start: 1990 Adult depression screening assessment DEPRESSION SCREENING [facility] Start: 1990 Depression Monitoring Depression Monitoring [facility] Start: 1990 Depression Screen Depression Screen [facility] Start: 1983 COVID-19 VACCINE (1) COVID-19 VACCINE (1) [facility] Start: 1978 HEPATITIS B (1 of 3 - 3-dose series) HEPATITIS B (1 of 3 - 3-dose series) [facility] Start: 1978 Hepatitis C screening Hepatitis C screen [employer] End: 04-15-2020 Basic metabolic 2000 panel Basic Metabolic Panel Lab Routine Daily for 10 Days starting 04/06/2020 until 04/15/2020, 3 completed [employer] Comment on above: Daily for 10 Days starting 04/06/2020 un til 04/15/2020, 3 completed Basic metabolic 2000 panel Basic Metabolic Panel Lab Routine Every MWF at 6:30AM (BMT lab orders) until discontinued starting 05/28/2020 [employer] Work Phone: Comment on above: Every MWF at 6:30AM (BMT lab orders) unt il discontinued starting 05/28/2020 End: 04-16-2020 Basic metabolic 2000 panel Basic Metabolic Panel Lab Routine Daily for 7 Occurrences starting 04/10/2020 until 04/16/2020, 3 completed [employer] Comment on above: Daily for 7 Occurrences starting 020 until 04/16/2020, 3 completed CBC [employer] [facility] Comment on above: Tomorrow AM until discontinued starting 04/07/2020, 2 completed Weekly until discont inued starting 05/25/2020 Tomorrow AM until di scontinued starting 04/10/2020, 3 completed CBC panel - Blood by Automated count CBC Lab Routine Malnutrition of moderate degree (HCC) 07/29/2021 10:02 AM EDT [facility] Work Phone: CBC WITH AUTO DIFFERENTIAL CBC W ITH AUTO DIFFERENTIAL Lab Routine Daily until discontinued starting 05/23/2020, 5 completed [employer] Work Phone: Comment on above: Daily until discontinued starting 2020, 5 completed Comprehensive metabo lic 2000 panel Comprehensive Metabolic Panel Lab Routine Weekly until discontinued starting 05/25/2020 [employer] Phone: Comment on above: Weekly until discontinued starting 05/25 Comprehensive Metabo lic Panel w/ Reflex to MG Comprehensive Metabolic Panel w/ Reflex to MG Lab Routine Daily until discontinued starting 05/23/2020, 5 completed [employer] Phone: Comment on above: Daily until discontinued starting 2020, 5 completed End: 08-29-2022 ECG COMPLETE ECG COMPLETE ECG Routine Gastrojejunal ulcer Epigastric pain Preoperative examination 1 Occurrences starting 08/29/2021 until 08/29/2022 [facility]: Comment on above: 1 Occurrences starting 08/29/2021 until 08/29/2022 End: 07-29-2022 EGD - THERAPEUTIC, EUS, OR TUBE INTERVENTIONS EGD - THERAPEUTIC, EUS, OR TUBE INTERVENTIONS Endoscopy Routine 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 1 Occurrences starting 07/29/2021 until 07/29/2022 [facility] Work Phone: Comment on above: 1 Occurrences starting 07/29/2021 until 07/29/2022 End: 01-03-2023 EGD BARIATRIC EGD BARIATRIC Endoscopy Routine Dysphagia, unspecified type 1 Occurrences starting 01/03/2022 until 01/03/2023 [facility] Work Phone: Comment on above: 1 Occurrences starting 01/03/2022 until 01/03/2023 Intermittent pulse oximetry [facility]IDA COCHRAN Comment on above: As Needed until discontinued starting As Needed until disc ontinued starting 05/23/2020 As Needed until disc ontinued starting 04/09/2020 End: 06-30-2021 Intermittent pulse oximetry Pulse Oximetry Spot Check Respiratory Care Routine Continuous until discontinued starting 06/30/2021 [employer] Phone: Comment on above: Continuous until discontinued starting 0 06/30/2021 [facility]/Vol[facility] Comment on above: Every MWF at 6:30AM (BMT lab orders) unt il discontinued starting 04/09/2020 Every MWF at 6:30AM (BMT lab orders) until discontinued starting 05/28/2020 End: 06-30-2021 NIACIN (VITAMIN B3) [employer] Phone: Comment on above: One Time for 1 Occurrences starting 06/14 until 06/30/2021 Oxygen therapy [facility] mum Data Set[facility] above: Daily until discontinued starting 2019 Daily until disconti nued starting 05/23/2020 Daily until disconti nued starting 04/10/2020 Oxygen therapy [Mini mum Data Set] Initiate Oxygen Therapy Protocol Respiratory Care Routine As Needed until discontinued starting 06/30/2021 [employer] Work Phone: Comment on above: As Needed until discontinued starting Phosphate [Mass/Vol] [facility] Comment on above: Every MWF at 6:30AM (BMT lab orders) unt il discontinued starting 04/09/2020 Every MWF at 6:30AM (BMT lab orders) until discontinued starting 05/28/2020 End: 04-12-2020 POCT Glucose POCT Glucose Point of Care Testing Timed Every 6 Hours (Lab) for 7 Days starting 04/05/2020 until 04/12/2020 [facility] above: Every 6 Hours (Lab) for 7 Days starting 04/05/2020 until 04/12/2020 End: 05-31-2020 POCT Glucose POCT Glucose Point of Care Testing Timed Every 6 Hours (Lab) for 7 Days starting 05/24/2020 until 05/31/2020 [employer] Work Phone: Comment on above: Every 6 Hours (Lab) for 7 Days starting 05/24/2020 until 05/31/2020 POCT Glucose [facility] FRIDA Hernandez Comment on above: As Needed until discontinued starting As Needed until disc ontinued starting 04/10/2020 End: 09-28-2022 Radiologic exam chest 2 views XR CHEST 2V FRONTAL/LAT Radiology Routine Gastrojejunal ulcer Epigastric pain Preoperative examination 1 Occurrences starting 08/29/2021 until 09/28/2022 [facility] Work Phone: Comment on above: 1 Occurrences starting 08/29/2021 until 09/28/2022 REFER FOR ADMIT INTERVIEW REFER FOR ADMIT INTERVIEW Procedures Routine Gastrojejunal ulcer Epigastric pain Preoperative examination Ordered: 08/29/2021 [facility] Work Phone: Comment on above: Ordered: 08/29/2021 End: 06-30-2021 Selenium serum [employer] Work Phone: Comment on above: One Time for 1 Occurrences starting 06/14 until 06/30/2021 SURGICAL PATHOLOGY [facility] Work Phone: Comment on above: Release Upon Ordering for 1 Occurrences starting 08/08/2021, 1 completed URINALYSIS, REFLEX MICROSCOPIC URINALYSIS, REFLEX MICROSCOPIC Lab Routine Screening for genitourinary condition Ordered: 10/27/2021 [facility] Work Phone: Comment on above: Ordered: 10/27/2021 End: 10-26-2022 US ARM VEIN DVT [facility] LAB US ARM VEIN DVT AMANDA VAS LA B Vascular Lab Routine Personal history of DVT (deep vein thrombosis) 1 Occurrences starting 10/26/2021 until 10/26/2022 [facility] [employer] Work Phone: Comment on above: 1 Occurrences starting 10/26/2021 until 10/26/2022 End: 09-30-2020 US GI ENDOSCOPIC S&I US GI ENDOSCOPIC S&I Imaging Routine Once for 1 Occurrences starting 09/30/2020 until 09/30/2020 [employer] Phone: Comment on above: Once for 1 Occurrences starting 10/01/19 until 09/30/2020 US GI ENDOSCOPIC S&I US GI ENDOS COPIC S&I Imaging Routine 09/30/2020 7:30 AM EDT [employer] Work Phone: End: 06-30-2021 Vitamin B1 [employer] Phone: Comment on above: One Time for 1 Occurrences starting 06/14 until 06/30/2021 End: 06-30-2021 VITAMIN B6 [employer] Phone: Comment on above: One Time for 1 Occurrences starting 06/14 until 06/30/2021 End: 06-30-2021 VITAMIN E [employer] Work Phone: Comment on above: One Time for 1 Occurrences starting 06/14 until 06/30/2021 End: 08-28-2022 XR UPPER GI SINGLE CONTRAST XR UPPER GI SINGLE CONTRAS T Radiology Routine Malnutrition of moderate degree (HCC) Gastrogastric fistula 1 Occurrences starting 07/29/2021 until 08/28/2022 [facility] Work Phone: Comment on above: 1 Occurrences starting 07/29/2021 until 08/28/2022 [facility] Immunizations Immunization Date Immunization Notes Care Provider [facility] 04-08-2020 influenza, injectabl e, quadrivalent, preservative free [facility] 03-29-2020 influenza quadrivale nt split vaccine (FLUZONE;FLUARIX;FLULAVA L;AFLURIA) injection 0.5 mL [place], [place] Payers Date Payer Category Payer Medicaid [place] [employer] [place] [employer] [id number] 2021-Present [phone] [address] [place] [address] Medicaid [id number] 2021 Medicaid [id number] [id number] 1978 Unknown [id number] 2.16.840.1.142795.3.579.2.173 1978 Unknown [id number] 2.16.840.1.350581.3.579.2.173 1978 Unknown [id number] 2.16.840.1.029391.3.579.2.173 1978 Unknown [id number] 2.16.840.1.598138.3.579.2.173 1978 Unknown [id number] 2.16.840.1.428492.3.579.2.173 1978 Unknown [id number] 2.16.840.1.222804.3.579.2.173 1978 Unknown [id number] 2.16.840.1.363732.3.579.2.175 1978 Unknown [id number] 2.16.840.1.995295.3.579.2.175 1978 Unknown [id number] 2.16.840.1.295782.3.579.2.175 1978 Unknown [id number] 2.16.840.1.784766.3.579.2.175 1978 Unknown [id number] 2.16.840.1.362330.3.579.2.175 1978 Unknown [id number] 2.16.840.1.935586.3.579.2.175 1978 Unknown [id number] 2.16.840.1.567566.3.579.2.175 1978 Unknown [id number] 2.16.840.1.707274.3.579.2.175 1978 Unknown [id number] 2.16.840.1.130943.3.579.2.175 1978 Unknown [id number] 2.16.840.1.248886.3.579.2.175 1978 Unknown [id number] 2.16.840.1.534609.3.579.2.175 1978 Unknown [id number] 2.16.840.1.990510.3.579.2.593 1978 Unknown [id number] 2.16.840.1.370888.3.579.2.593 1978 Unknown [id number] 2.16.840.1.400184.3.579.2.593 1978 Unknown [id number] 2.16.840.1.239667.3.579.2.593 1978 Unknown [id number] 2.16.840.1.798583.3.579.2.593 1978 Unknown [id number] 2.16.840.1.259357.3.579.2.593 1978 Unknown [id number] 2.16.840.1.789255.3.579.2.593 1978 Unknown [id number] 2.16.840.1.915289.3.579.2.593 1978 Unknown [id number] 2.16.840.1.153623.3.579.2.593 1978 Unknown [id number] 2.16.840.1.428023.3.579.2.593 1978 Unknown [id number] 2.16.840.1.601342.3.579.2.593 1978 Unknown [id number] 2.16.840.1.710420.3.579.2.593 1978 Unknown [id number] 2.16.840.1.452100.3.579.2.593 1978 Unknown [id number] 2.16.840.1.992473.3.579.2.593 1978 Unknown [id number] 2.16.840.1.263766.3.579.2.593 1959 Unknown [id number] 1.2.840.187051.1.13.239.2.7.3.6 [id number] Social History Date Type Detail Facility Start: 04-05-2020 End: 07-29-2021 Tobacco smoking status NHIS Never smoker [place] Start: 04-05-2020 End: 07-29-2021 Tobacco use and exposure Never used [place], [place] Start: 04-05-2020 End: 01-19-2022 Alcohol intake Lifetime non-drinker (finding) [facility]IDA CO[facility]RAN Start: 03-29-2020 End: 08-08-2021 History SDOH Alcohol Frequency 1 [facility] Start: 1980 [facility]AN Start: 05-31-2021 End: 01-18-2022 Exposure to SARS-CoV-2 (event) [facility] sure [facility] Start: 09-02-2020 End: 10-25-2022 Alcohol intake [facility] Work Phone: Tobacco smoking stat [facility] Tobacco smoking consumption unknown [facility] Start: 1980 Sex Assigned At Male [facility] Start: 01-19-2022 End: 10-25-2022 Tobacco use panel [facility] National Score (1-10 0), lower number is lower risk 94 [facility] Start: 07-07-2021 Gender identity Identifies as male gender (finding) [facility] Start: 07-07-2021 Sexual orientation Heterosexual (valarie haji) [facility] Medical Equipment Procedure Code Equipment Code Equipment Origin al Text Equipment Identifier Dates Stent Gi Cath 10 .8fr L138cm Tot L146cm Flng [id number] Lumn - [id number] Start: 09-30-2020 Comment on above: Description: AXIOS G -J STENT Stent Pancreatic Electrocautery [id number] Mm 10.8 [id number] Cm [id number] Start: 11-25-2020 Comment on above: Description: axios e lectrocautery-enhanced; stent and electrocautery-enhanced delivery system Stent Gi Cath 10 .8fr L138cm Tot L146cm Flng [id number] Lumn - [id number] Start: 02-17-2021 Comment on above: Description: axios s tent placed into stomach into jejunum Clinical Notes 08-05-2020 to 07-02-2023 Telephone Encounter - Anay Tee MD - 11/30/2022 5:40 PM EDTTelephone Encounter - Anay Tee MD - 11/30/2022 7:15 AM EDTTelephone Encounter - Arlene Carrillo RN - 11/17/2022 10:19 AM EDT Note Date & Type Note Facility 07-02-2023 Note Orthopaedic Surgery Subjective New Patient and Pain of the Right Knee 07/02/23 Sabina Espinoza is a 43 y.o. male presenting for right knee pain for many years. Patient reports he has had 4 previous surgeries to his right knee all done in [place]. On x-ray he has evidence of a tibial tubercle osteotomy. His last surgery to the right knee was in 2012. Patient reports he has tried and failed conservative management including corticosteroid injections and viscosupplementation injections. His last injection was about a year ago. He reports instability of his knee, describes buckling of his knee. He has pain with activity and particularly stairs. He has a previous surgical history of multiple intra-abdominal procedures and complications of sepsis. He reports he does not have a history of wound complications following his right knee surgeries. He has been seen by outside orthopedics who have offered injections, however patient does not want any more injections as he did not feel they have helped him at all. Patient History Past Surgical History: Procedure Laterality Date CHOLECYSTECTOMY GASTRIC BYPASS KNEE SURGERY NOSE SURGERY TONSILLECTOMY No past medical history on file. Objective General: Body mass index is 33 kg/m???. No acute distress, comfortable Right Knee: Scar over the ant aspect the knee joint has healed well, this is from his previous surgery for medialization of his tibial tubercle osteotomy. No evidence of any redness noted. Mild effusion noted in the knee joint. Mild genu valgum noted with hypoplastic lateral femoral condyle. Inspection- no ecchymosis, no edema, no effusion Tender to palpation over lateral joint line and superior/inferior/medial/lateral poles of the patella, otherwise non-tender Significant right quad/hamstring weakness compared to the left side Knee ROM: Extension- 0??? Flexion- 130??? Strength: Knee Flexion 4/5 Knee Extension 4/5 Ankle Dorsiflexion 5/5 Ankle Plantarflexion 5/5 Sensation: intact over superficial peroneal, deep peroneal and tibial nerve distributions Stability: Stable to varus and valgus stress Stable to anterior and posterior thrust Gait: Antalgic gait patient walks with medial thrust. Knee Special Tests: Not Applicable, Valgus Stress - Stable, and Varus Stress - Stable Imaging X-ray of the right knee performed on 06/06/2023: X-rays were seen by myself and interpreted rampantly which show the patient has right knee joint severe tricompartmental osteoarthritis, severe OA of the patellofemoral joint, osteophyte formation particularly over the lateral tibial eminence, evidence of previous hardware fixation from TTO. Patient has hardware in the form of antibiosis screws. Imaging personally reviewed and interpreted by attending physician. Findings discussed with patient. Assessment/Plan Sabina Espinoza is a 43 y.o. male with severe patellofemoral OA and tricompartmental OA was tried and failed conservative measurement would like to move forward with right TKA. Patient also has retained hardware in the right proximal tibia. Patient will benefit with removal of the hardware and single-stage right primary cemented posterior stabilized total knee arthroplasty. Risk and benefits of the treatment options were discussed at length with the patient including complications which are but not restricted to bleeding, infection, neurovascular, residual pain and stiffness, anesthetic risk, different thrombosis, pulm embolism, myocardial infarction, stroke, mortality less than 1%, recurrent patella subluxation, need for lateral release, stiffness of the knee joint, stiffness requiring manipulation under anesthesia and open scar excision, recurrent infections requiring staged revision knee arthroplasty, bone loss requiring above-knee amputation of the fusions in future. Despite all the risk patient wishes to proceed with surgery. He has signed his consent form. He was advised to continue with weight loss program so as to have optimal outcome. Patient was explained that he will need to have strict blood sugar control to have optimal outcome as well as his neurological problems may continue following the knee arthroplasty. -Discussed with patient, the majority of his osteoarthritis is in the patellofemoral compartment and with the evidence of hardware fixation from TTO, patient likely had TTO for lateral patellar tilt/lateral patellar dislocations. In any event, he does have signs of osteoarthritis in the remaining medial and lateral compartment and as he has tried and failed conservative management would recommend right TKA - Discussed with patient, given he has had 4 previous surgeries he is at increased risk of wound complication, he is a nondiabetic, non-smoker and BMI less than 40 which puts him at a lower risk for complications - Patient will need preoperative clearance from his PCP prior to surgery, informed consent (more content not included)... [facility] 06-06-2023 Note Chief Complaint: Rig ht Knee Pain HPI: 43 y.o male with knee right knee ongoing for many years, his knee pain is worsening recently without injury or inciting event. He reports he has had 4 surgeries done in his right knee all done in [place]. He reports constant throbbing pain, worse with activity or walking and improved with rest. He reports instability of his knee with buckling of his knee. He reports he has previously had corticosteroid injections as well as viscosupplementation without improvement of his knee pain Review of Systems Constitutional: Negative for chills, fatigue and fever. Musculoskeletal: Positive for gait problem. Knee Musculoskeletal Exam Gait Antalgic: right Limp: right Inspection Right Erythema: none Effusion: mild Edema: none Ecchymosis: none Palpation Right Increased warmth: none Crepitus: patellofemoral Tenderness: present Lateral joint line: moderate Medial joint line: moderate Range of Motion Right Active extension: 5 Active flexion: 125 Strength Right Extension: 5/5. Flexion: 5/5. Neurovascular Right Dorsalis pedis: 2+ Capillary refill: brisk Special Signs Right Straight leg raise: normal General Constitutional: well-developed and well-nourished Psychiatric: normal mood and affect and no acute distress Neurological: alert and oriented x3 Skin: intact X-rays ordered and interpreted today show medial compartment and patellofemoral compartment degenerative changes 1. Right knee pain, unspecified chronicity - XR knee 3 views right 2. Unilateral primary osteoarthritis, right knee Plan: Refer to Dr France [facility] 11-30-2022 Miscellaneous Notes Summary: [facility] Tumor Board Non-Melanoma Skin Cancer Tumor Board Referring Provider: Dr. Gerardo Date Case presented: 11/30/2022 Lesion(s) Reviewed: 42 yo male with history of gastric bypass and abdominal wound with bx c/w scc in 2021. Discussion regarding further management. Recommendations/Follow up: Team recommendations for continued close monitoring, q6 mo with Dr. Ermelinda Tee MD documented in this encounter [facility] 11-30-2022 Miscellaneous Notes Non-Melanoma Skin Cancer [...] tumor board meets. All questions answered. Arlene Carrillo RN Patient saw missed call and called [...] Arlene Carrillo RN documented in this encounter [facility] 11-08-2022 Note HNO ID: [id number] Author: Yina Lin RT(R) Service: Radiology Author [...] CT; Exam(s) Completed: Chest Abdomen Pelvis SIGNATURE: RT Linda(R) PATIENT NAME: Sabina Espinoza DATE: November 08, 2022 TIME: 8:44 AM [facility] 10-25-2022 Note HNO ID: [id number] Author: Yina Gerardo MD Service: ? Author Type: Physician Type: Progress Notes Filed: 10/26/2022 5:52 AM Note Text: [facility] Solid Tumor Oncology Initial Consultation Note Patient name: Sabina Espinoza [facility] number: [id number] Primary Care Physician: Salvatore Camargo MD Date [...] - 07/27/2022 abscess/mass removal: Pt presented to [facility] for evaluation of symptomatic abscess/mass located pily-umbilical abdomen. Mass was excised by Dr. Her ([address] and biopsy confirmed mass was benign. (No outside records of this). - 07/30/2022 Hospital Admission: He gradually developed pain, redness, and drainage of the area again and was admitted to [facility] 07/30/-08/01/2022 for abdominal wall cellulitis secondary to wound dehiscence infection. He was initially tx with empiric vancomycin and then doxycycline at discharge. Wound was 3.7 x 2.4 x 0.5 cm in size, and debrided with dressing placed. He performed dressing changes twice daily, and also had [facility] perform weekly dressing changes. - [...] Gastric Bypass Surgery. -Fhx: Paternal Hx of [place] and CAD ( age 58 from [place]), Maternal Hx of atherosclerosis ( age 68) [...] Take 30 mg (more content not included)... [facility] 10-25-2022 History of Present illness Narrative [facility] Solid Tumor Oncology Initial Consultation Note Patient name: Sabina Espinoza [facility] number: [id number] Primary Care Physician: Salvatore Camargo MD Date [...] - 07/27/2022 abscess/mass removal: Pt presented to [facility] for evaluation of symptomatic abscess/mass located pily-umbilical abdomen. Mass was excised by Dr. Her ([facility]) and biopsy confirmed mass was benign. (No outside records of this). - 07/30/2022 Hospital Admission: He gradually developed pain, redness, and drainage of the area again and was admitted to [facility] 07/30/-08/01/2022 for abdominal wall cellulitis secondary to wound dehiscence infection. He was initially tx with empiric vancomycin and then doxycycline at discharge. Wound was 3.7 x 2.4 x 0.5 cm in size, and debrided with dressing placed. He performed dressing changes twice daily, and also had [facility] perform weekly dressing changes. - [...] Gastric Bypass Surgery. -Fhx: Paternal Hx of [place] and CAD ( age 58 from [place]), Maternal Hx of atherosclerosis ( age 68) [...] which included preparing to see the patient, [id number] patient care, completing clinical documentation, obtaining and/or reviewing separately obtained history, performing a medically appropriate examination, counseling and educating the patient/family/caregiver, ordering medications, tests, or procedures, communicating results to the patient/family/caregiver, and care coordination (not separately reported). documented in this encounter [facility] 10-25-2022 Nurse Note Additional intake questions: Has the patient had fever, nausea, vomiting, diarrhea, constipation, fatigue for > 1 week? Yes, constipation (day of last BM yesterday ), diarrhea ( none times in last 24 hours), and fatigue Does the patient have a decreased appetite? Yes, decrease Does patient want to see a Floor Layer? No (yes to any of above refer [...] or Resource Center documented in this encounter [facility] 10-13-2022 Miscellaneous Notes I contacted patient, spoke to patient he is requesting an Oncology appointment for squamous cell carcinoma findings, I contacted cancer answer line for immediate referral, Ca line will contact patient directly today Sabina Bean PA-C documented in this encounter [facility] 10-12-2022 Miscellaneous Notes Spoke to patient, advised that Myles contacted oncology and their department indicated to him that they would be reaching out to the patient today. David Broderick RN October 13, 2022 10:55 AM Patient called stating he hasn't heard back from anyone regarding an order to onocology.. Mr. Espinoza is requesting a return call [phone] documented in this encounter [facility] 07-06-2022 Note CONSULTATION CONSULTATION DATE: 07/06/2022 TO: [facility] Dr. Call CHIEF COMPLAINT: Includes right [...] urine toxicology screen on today's visit. [facility] 03-28-2022 Note CONSULTATION CONSULTATION DATE: 03/28/2022 [...] pain. The patient has appointment scheduled with [facility] on May 12. The patient is [...] have encouraged to maintain the appointment with [facility] on May 12. In the interim, [...] to proceed. CC: Augustin Nelson PA-C [facility] 02-28-2022 Note CONSULTATION CONSULTATION DATE: 02/28/2022 HISTORY OF PRESENT ILLNESS: This is a 41-year-old gentleman who was [place] [facility] The patient has had chronic abdominal pain. [...] multiple abdominal surgeries and adhesions. CC: [facility] 01-17-2022 Miscellaneous Notes I received a call from Chandu at [facility] stating Sabina was discharged from [facility] and is coming to the [facility] ER today at 9:00am to be admitted. Sabina is unable to keep from and liquid down and also has a hematoma in abdominal cavity. Chandu can be reached at [phone] documented in this encounter [facility] 01-11-2022 Miscellaneous Notes BMI SPECIALTY CARE COORDINATION TELEPHONE ENCOUNTER F/U after notified by team pt was admitted to local hospital. Tried to contact pt and spoke to personnel specialist on file who confirmed pt was in hospital. Spoke to Charge nurse at [facility] in [place] pt c/o N/V Pt tolerated clears and adv to full liquid w/o vomiting No plans for d/c at this time. Waiting to be transferred to [facility].Pending bed transfer Fax given for Ct report and number for outside arrangement for electronic transfer of imaging given. Contact number given for updates documented in this encounter [facility] 01-03-2022 Miscellaneous Notes I contacted Chandu a call at [phone] regarding message that was left. She reports Sabina is unable to maintain hydration, nutrition intake due to dysphagia, vomiting. He requires 3 day notice for transport to come to [place]. I advised to have him go to local ED for evaluation, labs hydration and have him transferred to [facility] for on going evaluation, EGD. Carafate tablets called to pharmacy on file, advised to crush mix with 10 ml of water to make slurry. Advised for local hospital to call office to help arrange transport here to [facility]. I advised bed may be limited and may require wait. Sabina Bean PA-C documented in this encounter [facility] 01-02-2022 Miscellaneous Notes Chandu from [facility] called - she wanted me to send this message to you. Sabina is having issues w/ swallowing, he hasn't had an appointment since his surgery and need to get before late Jan/Feb. Can you please give Chandu a call at [phone] documented in this encounter [facility] 12-17-2021 Miscellaneous Notes Patient called requesting [...] since, but has had multiple visits to OSH ED for pain for which he has [...] up the phone. documented in this encounter [facility] 12-16-2021 Miscellaneous Notes Sabina called regarding oxycodone prescription 5mg to be called into [facility] [phone]. Experiencing stomach pains Please give Sabina a call at [phone] documented in this encounter [facility] 11-29-2021 Miscellaneous Notes Scanned signed home care orders into [employer]. Located under scanned documents documented in this encounter [facility] 11-23-2021 Miscellaneous Notes I attempted to contact patient regarding pain management appointment Future AppointmentsDateTimeProviderDepa rtmentCenter12/02/2021 8:30 [id number] BEAN Bldg0:00 [id number], COURTNEYJesus C Bldg No answer unable to leave a message Sabina Bean PA-C documented in this encounter [facility] 11-23-2021 Miscellaneous Notes Contacted pain management, appointment scheduled for December 02 at 10 am Sabina Bean PA-C documented in this encounter [facility] 11-23-2021 Miscellaneous Notes I contacted patient regarding message. Patient reports drain remains in place and needs to be removed will be to removed offered an appointment for this Sunday. Will schedule December 02 for in person visit for drain removal. In addition will reach to pain management for out patient options. Sabina Bean PA-C documented in this encounter [facility] 11-20-2021 Miscellaneous Notes BMI SPECIALTY CARE COORDINATION TELEPHONE ENCOUNTER Received message and tried to get in touch with Jade from [facility] in regards to drain removal. Patient had surgical procedure here at [facility] on 10/13. It was after hours and unable to leave message for Jade. Will try facility when they reopen tomorrow Attempted to call the pt but unable to leave VM Team aware Missed post op appt d/t connection issues sent message to scheduling for another appt mari Wyman documented in this encounter [facility] 11-16-2021 Miscellaneous Notes I received a call from Jade at [facility] regarding [place] and the remove a his drain. She wanted to know if someone can call her to discuss removal and the appropriate timing. [phone] documented in this encounter [facility] 11-14-2021 History of Present illness Narrative Patient was scheduled for a nutrition appointment today. The patient did not check into their scheduled appointment. I sent the patient a [employer] message encouraging them to reschedule their appointment by calling [phone]. documented in this encounter [facility] 11-09-2021 Miscellaneous Notes I received a call from Sabina Danuta regarding an appointment for a drain tube removal. Can you please give Mr. Espinoza a call at [phone] documented in this encounter [facility] 11-08-2021 Miscellaneous Notes BMI SPECIALTY CARE COORDINATION TELEPHONE ENCOUNTER F/u spoke to [facility] nurse FREDDIE draining 10-15cc Parris need to be removed order obtained OTP from [facility] nurse to remove No complaints from pt. schedule post op visit with team request sent to appt office documented in this encounter [facility] 10-18-2021 History of Past i llness [...] of this encounter (statuses as of 10/21/2021) [facility] History of Past illness Narrative* Problem [...] of this encounter (statuses as of 10/26/2021) [facility] of Past illness Narrative* Problem [...] of this encounter (statuses as of 10/31/2021) [facility] of Past illness Narrative* Problem [...] of this encounter (statuses as of 11/08/2021) [facility] of Past illness Narrative* Problem [...] of this encounter (statuses as of 11/09/2021) [facility] Narrative* Problem [...] of this encounter (statuses as of 11/14/2021) [facility] of Past illness Narrative* Problem [...] of this encounter (statuses as of 11/16/2021) [facility] of Past illness Narrative* Problem [...] of this encounter (statuses as of 11/20/2021) [facility] of Past illness Narrative* Problem [...] of this encounter (statuses as of 11/23/2021) [facility] Narrative* Problem [...] of this encounter (statuses as of 11/29/2021) [facility] Narrative* Problem [...] of this encounter (statuses as of 12/16/2021) [facility] Narrative* Problem [...] of this encounter (statuses as of 12/18/2021) [facility] illness Narrative* Problem [...] of this encounter (statuses as of 12/27/2021) [facility] of Past illness Narrative* Problem [...] of this encounter (statuses as of 01/02/2022) [facility] Narrative* Problem [...] of this encounter (statuses as of 01/03/2022) [facility] Narrative* Problem [...] of this encounter (statuses as of 01/11/2022) [facility] Narrative* Problem [...] of this encounter (statuses as of 01/17/2022) [facility] of Past illness Narrative* Problem [...] of this encounter (statuses as of 01/21/2022) [facility] Past illness Narrative* Problem [...] of this encounter (statuses as of 10/13/2022) [facility] of Past illness Narrative* Problem [...] of this encounter (statuses as of 10/13/2022) [facility] Past illness Narrative* Problem [...] of this encounter (statuses as of 10/26/2022) [facility] Past illness Narrative* Problem [...] of this encounter (statuses as of 11/29/2022) [facility] Past illness Narrative* Problem [...] of this encounter (statuses as of 11/30/2022) [facility] of Past illness Narrative* Problem [...] of this encounter (statuses as of 12/01/2022) [facility] of Past illness Narrative* Problem [...] of this encounter (statuses as of 12/06/2022) [facility] History of Present illness Narrative* RT Aracelis(R) - 10/07/2021 1:08 PM EDT Radiology Service [...] 07, 2021 1:08 PM [facility] Instructions* Patient Instructions* Anjali Ortiz APRN.CNP - 10/07/2021 12:25 PM EDT PATIENT PREOPERATIVE INSTRUCTIONS Alysa Asencio MD has scheduled you for your procedure at this surgery center: [facility] Scheduling Office: [phone] [address] [place] [address]. Please read below carefully for your personalized [...] Procedures: - YOU MUST HAVE A RESPONSIBLE FOLDER TIER TAKE YOU HOME. A FUEL YARD OPERATOR OR CHANGE MANAGEMENT SPECIALIST CANNOT BE MADE A RESPONSIBLE FOLDER TIER. - We recommend that a responsible person [...] call the Sunday before. Your surgeon s space scheduler will tell you what time to call the office. - If you have not reached the departmental space scheduler by 5 P.M., call [phone] after 5 P.M. the day before your surgery. Please be aware that emergency situations arise, which may delay or change your surgical time. If this happens, we will notify you as soon as possible and regret any inconvenience. If you already have an Advance Directive, please fax a copy to [phone] or email to for it to be [...] your chart that day. [facility] History and physical note * Anjali [...] fevers. Neurological: No history of TIA's, stroke, AZURE DEVELOPER tumor, impaired sensorium, hemiplegia, paraplegia orquadraplegia. No neurological symptoms or problems. Respiratory: Positive for: asthma (CHILDHOOD ASTHMA). Negative for: COPD, current cough, bronchodilator used daily for the last 3 months, dyspnea, pneumonia within 6 weeks, tobacco use, URI < 2 weeks and obstructive sleep apnea. Cardiovascular: Positive for: hypertension Negative for: CAD, chest pain, CHF, DVT/PE, hyperlipidemia, recent [place] and murmur/valvular heart disease. GI: See HPI. [...] by mouth q 12 HR. Taking Yes tzlxwhp-lcuuzkdho-atgnfnt D3 500 mg-5 mcg (200 unit) per [...] 326 QTC Calculation (Bazett) 444 Calculated P [place] 41 Calculated R [place] -26 Calculated T [place] 88 Impression SINUS TACHYCARDIA OTHERWISE NORMAL ECG Confirmed by MATA HART MD ([id number]) on 10/07/2021 12:28:47 PM No results found for this or any previous visit (from the past 05934 hour(s)). 10/07/2021 CXR: IMPRESSION: Bibasilar subsegmental atelectasis. Mild airways inflammation RESULT: Lines, tubes, and devices: Left-sided PICC line traveling to the lower SVC region Lungs and pleura: Peribronchial thickening in the lungs. Linear opacities at the lung bases. No pneumothorax or large effusion is seen Cardiomediastinal silhouette: Normal cardiomediastinal silhouette. Bones and soft tissues: Unremarkable. IN CARE EVERYWHERE 09/22/2021 ECHO: NarrativePerformed by [facility] Left Ventricle: Systolic function is normal with [...] have a large neck STOP-Bang Score: 2 [id number] Score: Age: <65 Sex: male Hypertension history: Yes [id number] Score: 1 ARISCAT Score: Age: <=50 ARISCAT [...] Been Initiated: EKG, CXR, Labs ordered in [facility] per Surgeon ( dated 08/29/2021) EKG performed Orders Placed This Encounter oxyCODONE IR (ROXICODONE) 5 mg immediate release tablet Sig: Take 5 mg by mouth every 12 hours as needed. therapeutic multivitamin-minerals (THERA-M PLUS) 9 mg iron-400 mcg tablet Sig: Take 1 tablet by mouth every morning. famotidine (PEPCID) 20 mg tablet Sig: Take 20 mg by mouth q 12 HR. vgwlpnt-kargruwie-ynuhqda D3 500 mg-5 mcg (200 unit) per tablet Sig: Take 1 tablet by mouth. vancomycin/0.9 % sod chloride (VANCOMYCIN IN 0.9% SODIUM CL) 1.75 gram/500 mL soln Sig: Inject intravenously twice daily. Instructions Given to Patient: Instructions located in the after visit summary. Patient given verbal and written preop instructions and voices comprehension and compliance. SIGNATURE: Anjali Ortiz APRN.MOBILE APPLICATION ARCHITECT PATIENT NAME: Sabina Espinoza DATE: October 07, 2021 TIME: 11:50 AM PAGER/CONTACT #: [facility] Miscellaneous Notes* Telephone Encounter - Ramon Mcneil - 10/03/2021 9:10 AM EDT Pt called regarding surgery scheduled with Dr. Asencio, Dec 05 and is requesting a return phone callto [phone] or [phone]. Message was sent to [place] Lag[place]re. [facility] Miscellaneous Notes* Telephone Encounter - Carlotta Farah RN - 09/23/2021 2:57 PM EDT BMI SPECIALTY CARE COORDINATION TELEPHONE ENCOUNTER Received call that pt is septic and will need 6-9 weeks of antibx therapy. Requested surgery that was scheduled in September be postponed until November. Sent request to schedulers and team updated. [facility] Miscellaneous Notes* Telephone Encounter - Sabina Bean PA-C - 08/26/2021 2:12 PM EDT I contacted patient he is requesting Dr Asencio's office contact his PCP Salvatore Camargo [phone], spoke to office office is currently closed will contact office back next week Patient will have a diagnostic lap on October Sabina Bean PA-C [facility] Miscellaneous Notes* Telephone Encounter - Ramon Mcneil - 08/26/2021 1:58 PM EDT Patient called regarding pain medication - stated Dr. Camargo office tried calling with questions toprescribe and warnings regarding surgery. I sent a staff message to Sabina/Carlotta for assistance. documented in [facility]22 NoteHNO ID: [id number] Author: RT Ko(R) Service: Radiology Author Type: [...] IV DATA: Not applicable SIGNED BY: RT Ko(R) August 25, 2021 9:28 [facility]05-10-2022 Miscellaneous Notes* Telephone Encounter - Ramon Mcneil - 08/23/2021 4:51 PM EDT Patient called requesting sooner surgery date with Dr Asencio, stated he's scheduled in October and wouldreally to something sooner. Sent a message to Dr. Asencio team to Please call patient at [phone] documented [facility] Miscellaneous Notes* Telephone Encounter - Carlotta Farah RN - 08/19/2021 11:16 AM EDT BMI SPECIALTY CARE COORDINATION TELEPHONE ENCOUNTER Patient was seen in clinic and POC was in place. Completed EGD/ outstanding UPPER GI will get done in [place] closer to home.. Surgery date confirmed. Will call pt with instructions closer to date. Pt aware of plan. C/O vomiting but this is daily and is chronic unable to eat and tolerates TPN Pt asking for pain meds referred to MD who was managing near home documented in [facility] Nurse Note* Kerrie Greenwood RN - [...] RN In Department: GASTROENTEROLOGY documented in this [facility] History and physical note * Alysa [...] he is traveling from his home in [place], [place] (1h 20 minutes to [facility]). PAST MEDICAL HISTORY: No relevant PMH. PAST SURGICAL HISTORY: 2010- LRNY and cholecystectomy 2020 - Ex lap x2 for SBO FAMILY [...] 2009 c/b SBO requiring ex lap in 2020 who now presents with a GJ ulcer [...] Bucio MD General Surgery, PGY-4 Pager - [phone] Complex history as above. History of ulcer and stricture not responsive to endoscopic treatment. Needs upper GI to rule out gastric gastric fistula. Upper endoscopy for anatomy. The meantime we will check his labs and ensure that his TPN is appropriate. He is probably getting need surgical revision. Alysa Asencio MD documented in this [facility]Bu[facility]04-[facility]22 History and physical note * Alysa [...] he is traveling from his home in [place], [place] (1h 20 minutes to [facility]). PAST MEDICAL HISTORY: No relevant PMH. [...] Bucio MD General Surgery, PGY-4 Pager - [phone] Complex history as above. History of ulcer and stricture not responsive to endoscopic treatment. Needs upper GI to rule out gastric gastric fistula. Upper endoscopy for anatomy. The meantime we will check his labs and ensure that his TPN is appropriate. He is probably getting need surgical revision. Alysa Asencio MD documented in this encounterBu[facility]04-[facility]22 History of Present illness Narrative* Carlotta Farah RN - 07/27/2021 12:24 PM EDT BMI [...] 2-3 mo.. OV 07/29 documented in this [facility]Bu[facility]03-[facility]22 History of Present illness Narrative* Jose Bello DO - 07/04/2021 1:32 PM EDT Images from the original note were not included. [facility] Office: [phone] Peña Billings DO, Ady Shine DO, [place] [...] Chavez CNP, Eliz Esquivel CNP, Suzy Wu, MOBILE APPLICATION ARCHITECT, Blanche Desouza, AZURE DEVELOPER, Edgar Staton, MOBILE APPLICATION ARCHITECT, Suyapa Almaguer CNP, Cathy Peña, MOBILE APPLICATION ARCHITECT, Loan Greenberg, DOROTA, Hever Tomlinson CNP, Niki Badillo PA-C, Arlyn Villegas, DOMINIQUE, Deneen Stone, DOMINIQUE, Leandra Rich, MOBILE APPLICATION ARCHITECT, Sapphire Rivera, MOBILE APPLICATION ARCHITECT, Araceli May, MOBILE APPLICATION ARCHITECT, Yuki Orosco, MOBILE APPLICATION ARCHITECT, Felipa Rodrigez, MOBILE APPLICATION ARCHITECT, Sharmin Galdamez, MOBILE APPLICATION ARCHITECT [facility] IN-PATIENT SERVICE [facility] Progress Note 07/04/2021 1:32 PM Name: Sabina Espinoza Acct: [id number] Room: [facility]0439-01 Day: 4 Admit Date: 06/30/2021 1:58 AM PCP: Salvatore Camargo MD Code Status: Full Code Subjective: C/C: Difficulty swallowing Interval History Status: not changed Seeing pt for : TPN Pt says he feels good today just waiting on [facility] to get set up Still on [...] RDW, PLT, MPV, SEDRATE, CRP, INR, DDIMER, [id number], LABABSO in the last 72 hours. Invalid input(s): PT Chemistry: Recent Labs 07/02/21 1155 NA 136 K 4.5 CL 104 CO2 22 GLUCOSE 106* BUN 9 CREATININE 0.40* MG 2.1 ANIONGAP 10 LABGLOM >60 GFRAA >60 CALCIUM 9.2 CAION 1.17 PHOS 2.9 No results for input(s): PROT, LABALBU, LABA1C, D3BZPUY, E9IEIDF, FT4, TSH, AST, ALT, LDH, GGT, ALKPHOS, LABGGT, BILITOT, BILIDIR, AMMONIA, AMYLASE, LIPASE, LACTATE, CHOL, HDL, LDLCHOLESTEROL, CHOLHDLRATIO, TRIG, VLDL, JNM08JG, PHENYTOIN, PHENYF, URICACID, POCGLU in the last 72 hours. ABG:No results found for: POCPH, PHART, PH, POCPCO2, SUS6HZA, PCO2, POCPO2, PO2ART, PO2, POCHCO3, BLT5CUU, HCO3, NBEA, PBEA, BEART, BE, THGBART, THB, QWR6UNB, RTTK1ZYE, T3SBSDSZ, O2SAT, FIO2 Lab Results Component Value Date/Time [...] suggesting stenosis. GI recommend outpatient follow-up with [facility] for revision surgery. They are okay with [...] from the original note were not included. [facility] Office: [phone] Peña Billings DO, Ady Shine DO, [place] [...] Medina MD, Elian Navarro MD, Latonia Chavez, MOBILE APPLICATION ARCHITECT, Eliz Esquivel, MOBILE APPLICATION ARCHITECT, Suzy Wu, MOBILE APPLICATION ARCHITECT, Blanche Desouza, [facility], Edgar Staton, MOBILE APPLICATION ARCHITECT, Suyapa Almaguer, MOBILE APPLICATION ARCHITECT, Cathy Peña, MOBILE APPLICATION ARCHITECT, Loan Greenberg, MOBILE APPLICATION ARCHITECT, Hever Tomlinson, MOBILE APPLICATION ARCHITECT, SARAH HartleyC, Arlyn Villegas, DNP, Deneen Stone, DNP, Leandra Rich, MOBILE APPLICATION ARCHITECT, Sapphire Rivera, MOBILE APPLICATION ARCHITECT, Araceli May, MOBILE APPLICATION ARCHITECT, Yuki Orosco, MOBILE APPLICATION ARCHITECT, Felipa Rodrigez, MOBILE APPLICATION ARCHITECT, Sharmin Galdamez, MOBILE APPLICATION ARCHITECT [facility] IN-PATIENT SERVICE [facility] Progress Note 07/03/2021 1:09 PM Name: Sabina Espinoza Acct: [id number] Room: [address] [place] [address] Day: 3 Admit Date: 06/30/2021 1:58 AM PCP: Salvatore Camargo MD Code Status: Full Code Subjective: C/C: Difficulty swallowing Interval History Status: not changed Seeing pt for : TPN Pt says he feels good today just waiting on [facility] to get set up Still on [...] RDW, PLT, MPV, SEDRATE, CRP, INR, DDIMER, DD7XNROC, LABABSO in the last 72 hours. Invalid [...] results found for: POCPH, PHART, PH, POCPCO2, NAT2IQI, PCO2, POCPO2, PO2ART, PO2, POCHCO3, YOF1EZF, HCO3, NBEA, PBEA, BEART, BE, THGBART, THB, QHH1PFO, LDIR9CBA, Q0CLCNKR, O2SAT, FIO2 Lab Results Component Value Date/Time [...] suggesting stenosis. GI recommend outpatient follow-up with [facility] for revision surgery. They are okay with [...] reduce to BID - Continue PN-Adult Premix 5/20 @ 84 mL/hr - Provides 1778 kcal, [...] loss Fluid Accumulation: 1 - Mild Extremities Commissioning Specialist Strength: Not Performed Estimated Daily Nutrient Needs: Energy (kcal): MSJ x 1.05-1-1 = 6803-0440 kcals/day; Weight Used for Energy Requirements: Current Protein (g): 1.2-1.5 gm/kg = 90-115 gm pro/day; Weight Used for Protein Requirements: [place] Fluid (ml/day): 2600 mL/day or per MD; Method Used for Fluid Requirements: Other (Comment) (Evelyne Anand) Nutrition Related Findings: Labs/meds reviewed. LBM 07/02. No edema noted. Wounds: (chronic wound to umbilicus) Current Nutrition Therapies: ADULT DIET; Clear Liquid; advance as tolerated PN-Adult Premix 5/20 - Standard Electrolytes - [place] ADULT ORAL NUTRITION SUPPLEMENT; Breakfast, Dinner; Clear Liquid Oral Supplement Anthropometric Measures: Height: 5' 10 (177.8 cm) Current Body Weight: 222 lb (100.7 kg) Admission Body Weight: 222 lb (100.7 kg) Usual Body Weight: 190 lb (86.2 kg) (Weight trending up per chart review) [place] Body Weight: 166 lbs; % [place] Body Weight 133.7 % BMI: 31.9 BMI [...] Discharge Planning: Continue current diet,Parenteral Nutrition Contact: [phone] * Darline Shah RD, EDDIE - 07/02/2021 3:20 PM EDT Comprehensive Nutrition [...] Needs: Energy (kcal): MSJ x 1.05-1-1 = 1395-3757 kcals/day; Weight Used for Energy Requirements: Current Protein (g): 1.2-1.5 gm/kg = 90-115 gm pro/day; Weight Used for Protein Requirements: [place] Fluid (ml/day): 2600 mL/day or per MD; [...] kg) (Weight trending up per chart review) [place] Body Weight: 166 lbs; % [place] Body Weight 133.7 % BMI: 31.9 BMI [...] from the original note were not included. [facility] [facility] Office: [phone] Peña Billings DO, Ady Shine DO, Houston Cooper DO, Darell Krueger, DO, Elena Allison MD, Hannah Rodrigues MD, Murphy Ball MD, Shraddha Hamm MD, Jannette Albert MD, Dinesh Burgess MD, Flor Donnelly MD, Nate Bone DO, Fabricio Mo DO, Rosalio Green MD, Jose Bello DO, MD Ladan, Bia Hamilton MD, Chalo Sams MD, Filiberto Billings DO, Jose Medina MD, Elian Navarro MD, Latonia Chavez, MOBILE APPLICATION ARCHITECT, Eliz Esquivel, MOBILE APPLICATION ARCHITECT, Suzy Wu, MOBILE APPLICATION ARCHITECT, Blanche Desozua, AZURE DEVELOPER, Edgar Staton, MOBILE APPLICATION ARCHITECT, Suyapa Almaguer, MOBILE APPLICATION ARCHITECT, Cathy Peña, MOBILE APPLICATION ARCHITECT, Loan Greenberg, MOBILE APPLICATION ARCHITECT, Hever Tomlinson, MOBILE APPLICATION ARCHITECT, SOURAV Hartley-C, Arlyn Villegas, DNP, Deneen Stone, DNP, Leandra Rich, MOBILE APPLICATION ARCHITECT, Sapphire Rivera, MOBILE APPLICATION ARCHITECT, Araceli May, MOBILE APPLICATION ARCHITECT, Yuki Orosco, MOBILE APPLICATION ARCHITECT, Felipa Rodrigez, MOBILE APPLICATION ARCHITECT, Sharmin Galdamez, MOBILE APPLICATION ARCHITECT [facility] IN-PATIENT SERVICE [facility] Progress Note 07/02/2021 11:02 AM Name: Sabina Espinoza Acct: [id number] Room: [address] [place] [address] Day: 2 Admit Date: 06/30/2021 1:58 AM PCP: Salvatore Camargo MD Code Status: Full Code Subjective: C/C: Difficulty swallowing Interval History Status: not changed Seeing pt for : TPN Pt says he feels good today just waiting on [facility] acceptance. Needs to be on TPN 48 per [facility]. Still on TPN Labs have been stable [...] results found for: POCPH, PHART, PH, POCPCO2, XAR7NLB, PCO2, POCPO2, PO2ART, PO2, POCHCO3, UFQ0CBC, HCO3, NBEA, PBEA, BEART, BE, THGBART, THB, HWG8KLE, REJX7VCV, B7WVJQCT, O2SAT, FIO2 Lab Results Component Value Date/Time [...] suggesting stenosis. GI recommend outpatient follow-up with [facility] for revision surgery. They are okay with [...] loss Fluid Accumulation: 1 - Mild Extremities Commissioning Specialist Strength: Not Performed Estimated Daily Nutrient Needs: Energy (kcal): MSJ x 1.05-1-1 = 4146-5434 kcals/day; Weight Used for Energy Requirements: Current Protein (g): 1.2-1.5 gm/kg = 90-115 gm pro/day; Weight Used for Protein Requirements: [place] Fluid (ml/day): 2600 mL/day or per MD; [...] kg) (Weight trending up per chart review) [place] Body Weight: 166 lbs; % [place] Body Weight 133.7 % BMI: 31.9 BMI [...] Discharge Planning: Continue current diet,Parenteral Nutrition Contact: [phone] * Jose Bello DO - 07/01/2021 2:27 PM EDT Images from the original note were not included. [facility] Office: [phone] Peña Billings DO, Ady Shine DO, Houston [...] CNP, Eliz Esquivel CNP, Suzy Wu CNP, Blanhce Desouza, AZURE DEVELOPER, Edgar Staton, MOBILE APPLICATION ARCHITECT, Suyapa Almaguer, MOBILE APPLICATION ARCHITECT, Cathy Peña, MOBILE APPLICATION ARCHITECT, Loan Greenberg, [place], Hever Tomlinson CNP, Niki Badillo PA-C, Arlyn Villegas DNP, Deneen Stone DNP, Leandra Rich CNP, Sapphire Rivera, [place], Araceli May, [place], Yuki Orosco CNP, Felipa Rodrigez CNP, Sharmin Galdamez CNP [facility] IN-PATIENT SERVICE [facility] Progress Note 07/01/2021 2:27 PM Name: Sabina Espinoza Acct: [id number] Room: [address] [place] [address] Day: 1 Admit Date: 06/30/2021 1:58 AM [...] results found for: POCPH, PHART, PH, POCPCO2, DRU3VNG, PCO2, POCPO2, PO2ART, PO2, POCHCO3, FFF2BQQ, HCO3, NBEA, PBEA, BEART, BE, THGBART, THB, TZJ6EDK, CFOC7BAT, K4ILYHZT, O2SAT, FIO2 Lab Results Component Value Date/Time [...] with GI, they recommend outpatient follow-up with [facility] for revision surgery. They are okay with [...] at home. I have reached out to [facility] bariatric clinic and waiting with her call [...] 1839 LABIRON 8* TIBC 340 FERRITIN 20* [id number] 505 FOLATE 16.1 BMP: Recent Labs 06/30/21 [...] relieve GJ stenosis. Recommended to follow-up in [facility] bariatric center for evaluation of revision surgery. 5. Okay to discharge from GI standpoint. managing manager to arrange home nursing and home [...] othersurgical history (05/2021); Upper gastrointestinal endoscopy (06/22/2021); picc powerpicc double (06/30/2021); and Upper gastrointestinal [...] Ambulation Assistance: Independent Transfer Assistance: Independent Active Gasket Notcher: No Patient's Gasket Notcher Info: Parents drive Occupation: Unemployed Leisure & [...] ADL Inpatient CMS G-Code Modifier : CH (07/01/21949) Goals Therapy Time Individual Concurrent Group Co-treatment [...] assess Fluid Accumulation: No significant fluid accumulation Commissioning Specialist Strength: Not Performed Estimated Daily Nutrient Needs: Energy (kcal): MSJ x 1.05-1-1 = 1201-8845 kcals/day; Weight Used for Energy Requirements: Current Protein (g): 1.2-1.5 gm/kg = 90-115 gm pro/day; Weight Used for Protein Requirements: [place] Fluid (ml/day): 2600 mL/day or per MD; [...] kg) (Weight trending up per chart review) [place] Body Weight: 166 lbs; % [place] Body Weight 133.7 % BMI: 31.9 BMI [...] Discharge Planning: Too soon to determine Contact: [phone] * Gloria Delong RN - 06/30/2021 2:56 PM EDT Patient to x-ray as ordered on stretcher with RN contract technical writer. * Ludy Kennedy RN - 06/30/2021 [...] to EGD via stretcher. [facility]: [phone]) 614-497903-21-2022 Hospital Discharge instructions* Discharge Instr - Diet* [...] at most local grocery stores, pharmacies, and [employer]-stores. If you have any questions about your [...] nagi villanueva Mobile Relation: Parent Preferred language: Anguillan Credit Control Officer needed? No Past Surgical History: Past Surgical History: Procedure Laterality Date ABDOMINAL EXPLORATION SURGERY 04/03/2020 Laparotomy exploratory, egd, prevena wound vac push endoscopy, lysis of adhessions CHOLECYSTECTOMY 2011 DILATATION, ESOPHAGUS GASTRIC BYPASS SURGERY 2010 PICC POWERPICC DOUBLE 04/05/2020 PICC POWERPICC DOUBLE 06/30/2021 KNEE SURGERY Right Multiple knee surgeries LAPAROSCOPY N/A 03/30/2020 DIAGNOSTIC LAPAROSCOPY, LAPAROTOMY LYSIS OF ADHESIONS performed by Daniel Moyer DO at [facility] OR LAPAROTOMY 01/29/2020 DIAGNOSTIC LAPAROSCOPY, LAPAROTOMY LYSIS OF ADHESIONS LAPAROTOMY N/A 04/03/2020 LAPAROTOMY EXPLORATORY, EGD, PREVENA WOUND VAC, PUSH ENDOSCOPY, LYSIS OF ADHESIONS performed by Daniel Moyer DO at [facility] OR OTHER SURGICAL HISTORY 05/2021 boil on abdomen lanced- in the ER [facility] TONSILLECTOMY UPPER GASTROINTESTINAL ENDOSCOPY N/A 05/27/2020 EGD DILATION BALLOON performed by Lalo Lambert MD at [facility] Endoscopy UPPER GASTROINTESTINAL ENDOSCOPY N/A 06/24/2020 EGD DILATION BALLOON performed by Lalo Lambert MD at [facility] Endoscopy UPPER GASTROINTESTINAL ENDOSCOPY 07/08/2020 EGD ESOPHAGOGASTRODUODENOSCOPY DILATATION performed by Lalo Lambert MD at [facility] Endoscopy UPPER GASTROINTESTINAL ENDOSCOPY N/A 07/22/2020 EGD DILATION BALLOON performed by Lalo Lambert MD at [facility] Endoscopy UPPER GASTROINTESTINAL ENDOSCOPY 08/05/2020 EGD DILATION BALLOON performed by Lalo Lambert MD at [facility] Endoscopy UPPER GASTROINTESTINAL ENDOSCOPY N/A 09/02/2020 EGD DILATION BALLOON 12-15MM performed by Lalo Lambert MD at [facility] Endoscopy UPPER GASTROINTESTINAL ENDOSCOPY N/A 09/16/2020 EGD ESOPHAGOGASTRODUODENOSCOPY DILATATION performed by Lalo Lambert MD at [facility] Endoscopy UPPER GASTROINTESTINAL ENDOSCOPY N/A 09/30/2020 EGD STENT PLACEMENT AXIOSSTENT 33T32YO TO G-J JUNCTION performed by Lalo Lambert MD at [facility] Endoscopy UPPER GASTROINTESTINAL ENDOSCOPY 09/30/2020 EGD DILATION BALLOON 12-15MM performed by Lalo Lambert MD at [facility] Endoscopy UPPER GASTROINTESTINAL ENDOSCOPY N/A 10/28/2020 EGD STENT REMOVAL performed by Lalo Lambert MD at [facility] Endoscopy UPPER GASTROINTESTINAL ENDOSCOPY 11/25/2020 EGD STENT PLACEMENT performed by Lalo Lambert MD at [facility] Endoscopy UPPER GASTROINTESTINAL ENDOSCOPY N/A 02/03/2021 EGD STENT REMOVAL performed by Lalo Lambert MD at [facility] Endoscopy UPPER GASTROINTESTINAL ENDOSCOPY N/A 02/17/2021 EGD STENT PLACEMENT performed by Lalo Lambert MD at [facility] Endoscopy UPPER GASTROINTESTINAL ENDOSCOPY 06/22/2021 EGD STENT REMOVAL performed by Lalo Lambert MD at [facility] Endoscopy UPPER GASTROINTESTINAL ENDOSCOPY N/A 06/30/2021 EGD FOREIGN BODY REMOVAL performed by Hayder Pegn MD at [facility] Endoscopy UVULOPALATOPHARYGOPLASTY Immunization History: Immunization History Administered Date(s) Administered COVID-19, Pfizer Purple top, DILUTE for use, 12+ yrs, 30mcg/0.3mL dose 07/24/2020, 08/14/2020, 03/09/2021 Influenza, Quadv, IM, PF (6 mo and older Fluzone, Flulaval, Fluarix, and 3 yrs and older Afluria) 04/08/2020 Active Problems: Patient Active Problem List Diagnosis Code SBO (small bowel obstruction) ([facility]) K56.609 Severe protein-calorie malnutrition ([place]: less than 60% of standard weight) ([facility]) E43 Esophageal dysphagia R13.19 Essential hypertension I10 Bowel obstruction ([facility]) K56.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 [...] Walking Independent Transfer Independent Bathing {CHP DME ADLs:[id number]} Dressing Independent Toileting Independent Feeding Independent Granite Countertop Installer Independent Med Delivery whole Wound Care Documentation [...] Unplanned Readmission: 10 Discharging to Facility/ Agency [facility] specialty infusion Details FAX [phone] [facility] [phone] [address] Dialysis Facility (if applicable) Name: Address: Dialysis Schedule: Phone: Fax: Manager Reimbursement/Stave Inspector signature: PHYSICIAN SECTION Prognosis: Fair Condition at Discharge: Stable Rehab Potential (if transferring to Rehab): Fair Recommended Labs or Other Treatments After Discharge: -Follow-up with your primary care physician for continued management of your TPN. PCP/[facility] will manage your TPN and dosing. Labs to be sent to PCP Salvatore Camargo MD -Follow-up with [facility]. She department for possible revision of Lauren-en-Y given stenosis -Avoid solid foods due to stenosis -Mix medicine with applesauce -Return to hospital for chest pain, shortness of breath conical to breathing, nausea, vomiting diarrhea -Needs follow-up with his renal case manager after discharge -continue current order to run [...] physician for continued management of your TPN. PCP/[facility] will manage your TPN and dosing -Follow-up with [facility]. She department for possible revision of Lauren-en-Y given stenosis -Avoid solid foods due to stenosis -Mix medicine with applesauce -Return to hospital for chest pain, shortness of breath conical to breathing, nausea, vomiting diarrhea * Attachments The following attachments cannot be sent through Care Everywhere. * TPN (Total Parenteral Nutrition) ([place]an) * TPN (Total Parenteral Nutrition): General Info ([place]gu[place]an) * Esophageal Stricture: General Info ([place]) documented [facility] this [facility] Phone: [phone]) 610-835403-18-2022 Hospital course Narrative* Jose Bello DO - 07/01/2021 2:35 PM EDT Images from the original note were not included. [facility] Office: [phone] Peña Billings DO, Ady Shine DO, Houston Cooper DO, aDrell Krueger DO, Elena Allison MD, Hannah Rodrigues MD, Murphy Ball MD, Shraddha Hamm MD, Jannette Albert MD, Dinesh Burgess MD, Flor Donnelly MD, Nate Bone DO, Fabricio Mo DO, Rosalio Green MD, Jose Bello DO, MD Ladan, Bia Hamilton MD, Chalo Sams MD, Filiberto Billings DO, Jose Medina MD, Elian Navarro MD, Latonia Chavez, MOBILE APPLICATION ARCHITECT, Eliz Esquivel, MOBILE APPLICATION ARCHITECT, Suzy Wu, MOBILE APPLICATION ARCHITECT, Blanche Desouza, AZURE DEVELOPER, Edgar Staton, MOBILE APPLICATION ARCHITECT, Suyapa Almaguer, MOBILE APPLICATION ARCHITECT, Cathy Peña, MOBILE APPLICATION ARCHITECT, Loan Greenberg, MOBILE APPLICATION ARCHITECT, Hever Tomlinson, MOBILE APPLICATION ARCHITECT, SOURAV Hartley-Samantha, Arlyn Villegas, DNP, Deneen Stone, DNP, Leandra Rich, MOBILE APPLICATION ARCHITECT, Sapphire Rivera, MOBILE APPLICATION ARCHITECT, Araceli May, MOBILE APPLICATION ARCHITECT, Yuki Orosco, MOBILE APPLICATION ARCHITECT, Felipa Rodrigez, MOBILE APPLICATION ARCHITECT, Sharmin Galdamez, MOBILE APPLICATION ARCHITECT [facility] IN-PATIENT SERVICE [facility] Discharge Summary Patient ID: Sabina Espinoza : 1980 ACCOUNT: [id number] Patient's PCP: Salvatore Camargo MD Admit Date: [...] stenosis. GI recommended outpatient follow-up at the [facility] bariatric center for revision surgery due to [...] Physician Follow Up: Salvatore Camargo MD [address] [facility] [id number] Schedule an appointment as soon as possible for a visit in 3 days For management of TPN [facility] [address] [facility] [id number] Schedule an appointment as soon as possible for a visit For revision of Lauren-en-Y [facility], [address], [address] [facility] [id number] Requiring Further Evaluation/Follow Up POST HOSPITALIZATION/Incidental Findings: -Follow-up with your primary care physician for continued management of your TPN. PCP/[facility] will manage your TPN and dosing -Follow-up with [facility]. 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 [facility] Phone: [phone]) [phone] History of Present illness Narrative* Veronica White RN - 06/22/2021 9:26 AM EST 0920 returned post procedure skin warm color pink abdomen soft remains on monitors resting quiet * Ludy Kennedy RN - 06/22/2021 9:16 AM EST 0915 gastric stent removed per dr. lambert with a ratooth instrument. documented in [facility] Phone: [phone]) 886-977607-15-2021 History of Present illness Narrative* Aicha Daigle RN - 10/28/2020 9:24 AM EDT This contract technical writer contacted [employer] at [phone] and spoke with [facility] to arrange transport home for the patient. [facility] is dispatching a trolley coach driver, specific time unknown. documented in this [facility] Phone: 1(113) 888-450605-20-2021 History of Present illness Narrative* Veronica White RN - 09/02/2020 11:08 AM EDT Discharge criteria met instructions Given No complaints of pain * Veronica White RN - 09/02/2020 10:49 AM EDT 1045 RETURNED POST PROCEDURE SKIN WARM COLOR PINK ABDOMEN SOFT RESTING WITH EYES CLOSED REMAINS ON MONITORS documented in this [facility] Phone: [phone] History of Present illness Narrative* Veronica White RN - 08/05/2020 11:11 AM EDT Discharge [...] abd. Soft ,non-tender . documented in this [facility] Devices Phone: evaluation note* Diagnosis Preoperative testing Preoperative examination, unspecified documented in this encounter [facility] Phone: evaluation note* Diagnosis Preoperative testing Preoperative examination, unspecified documented in this encounter [employer] Phone: evaluation note* Diagnosis Esophageal stricture- Primary [...] influencing health status documented in this encounter [employer] Phone: evaluation note* Diagnosis Malnutrition of moderate degree (HCC)- Primary Malnutrition of moderate degree 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 [facility]* Diagnosis Gastrojejunal ulcer- Primary Gastrojejunal ulcer, unspecified as acute or chronic, without mention of hemorrhage, perforation, or obstruction Stricture of esophagus Stricture and stenosis of esophagus Gastric fistula Fistula of stomach or duodenum [facility]* Diagnosis Gastrojejunal ulcer Gastrojejunal ulcer, unspecified as acute or chronic, without mention of hemorrhage, perforation, or obstruction Stricture of esophagus Stricture and stenosis of esophagus Gastric fistula Fistula of stomach or duodenum [facility]* Diagnosis Gastrojejunal ulcer- Primary Gastrojejunal ulcer, unspecified as acute or chronic, without mention of hemorrhage, perforation, or obstruction Epigastric pain Abdominal pain, epigastric Preoperative examination Preoperative examination, unspecified Gastrojejunal ulcer Gastrojejunal ulcer, unspecified as acute or chronic, without mention of hemorrhage, perforation, or obstruction Epigastric pain Abdominal pain, epigastric Preoperative examination Preoperative examination, unspecified documented in this encounter [facility] note* Diagnosis Preop examination- Primary Preoperative examination, [...] Preoperative examination, unspecified documented in this encounter [facility] note* Diagnosis Gastrojejunal ulcer Gastrojejunal ulcer, unspecified as acute or chronic, without mention of hemorrhage, perforation, or obstruction Epigastric pain Abdominal pain, epigastric Preoperative examination Preoperative examination, unspecified Gastrojejunal ulcer Gastrojejunal ulcer, unspecified as acute or chronic, without mention of hemorrhage, perforation, or obstruction Epigastric pain Abdominal pain, epigastric Preoperative examination Preoperative examination, unspecified documented in this encounter [facility] note* Diagnosis Personal history of DVT (deep vein thrombosis)- Primary Personal history of venous thrombosis and embolism documented in this encounter [facility] note* Diagnosis Screening for genitourinary condition Screening for other and unspecified genitourinary condition documented in this encounter [facility] note* Diagnosis NO SHOW- Primary documented in this encounter [facility] note* Diagnosis Dysphagia, unspecified type- Primary documented in this encounter [facility] note* Diagnosis Squamous cell carcinoma skin of abdomen- Primary Squamous cell carcinoma of skin of trunk, except scrotum documented in this encounter [facility] note* Diagnosis Skin cancer- Primary Unspecified malignant neoplasm of skin, site unspecified documented in this encounter [facility] note* Diagnosis Squamous cell carcinoma of skin- Primary Squamous cell carcinoma of skin, site unspecified Skin cancer Unspecified malignant neoplasm of skin, site unspecified Infection in abdomen (HCC) Unspecified peritonitis documented in this encounter [facility] note* Diagnosis Iron deficiency anemia secondary to inadequate dietary iron intake- Primary [facility] Diagnosis Iron deficiency anemia secondary to inadequate dietary iron intake- Primary documented in this encounter [facility] Discharge instructions* Instructions* Arlyn Walters RN - [...] do to make you more comfortable. CALL [phone] WITH FURTHER QUESTIONS. PRESENT TO ER WITH CONTINUED BLEEDING. USE ICE PACKS AND ELEVATE RIGHT ARM TO AVOID SWELLING. documented in this encounterThe [facility] Phone: Hospital Discharge instructions* Instructions* Veronica White [...] the day after the test, use an ooyh-nxg-dblxbso spray to numb your throat. Follow-up care [...] Where can you learn more? Go to [email or web address] and sign in to your [employer] account. Enter J454 in the Search Health Information box to learn more about Upper GI Endoscopy: What to Expect at Home. If you do not have an account, please click on the Sign Up Now link. Current as of: July 30, 2019 Content Version: 12.8 [employer]. Care instructions adapted under license by [employer]. If you have questions about a medical condition or this instruction, always ask your healthcare professional. [employer] disclaims any warranty or liability for your use of this information. documented in this [facility] Work Phone: Hospital Discharge instructions* Instructions* Smiley Perry RN - 09/30/2020 [facility] POST-ENDOSCOPY INSTRUCTIONS: 1. ACTIVITY No driving, [...] PLEASE call your doctor @ or the [facility] GI Unit [phone] documented in this [facility] gladwinGlobal Data Solutions Work Phone: Hospital Discharge instructions* Instructions* Aicha Daigle RN - 10/28/2020 [facility] POST-ENDOSCOPY INSTRUCTIONS: 1. ACTIVITY No driving, [...] PLEASE call your doctor @ or the [facility] GI Unit [phone] documented in this [facility] Work Phone: Hospital Discharge instructions* Instructions* Caroline Hwang RN - 11/25/2020 [facility] POST-ENDOSCOPY INSTRUCTIONS: 1. ACTIVITY No driving, [...] additional questions, PLEASE call your doctor @ [phone] or the [facility] GI Unit [phone] documented in this [facility] Work Phone: Hospital Discharge instructions* Instructions* Caroline Hwang, RN - 02/17/2021 [facility] POST-ENDOSCOPY INSTRUCTIONS: 1. ACTIVITY No driving, [...] additional questions, PLEASE call your doctor @ ___[phone]__ or the [facility] GI Unit [phone] documented in this [facility] [employer] Work Phone: Hospital Discharge instructions* Instructions* Celi Reyes [...] the day after the test, use an iicd-wxc-icjxcfe spray to numb your throat. Follow-up care [...] Where can you learn more? Go to [email or web address] and sign in to your [employer] account. Enter J454 in the Search Health Information box to learn more about Upper GI Endoscopy: What to Expect at Home. If you do not have an account, please click on the Sign Up Now link. Current as of: December 22, 2020 Content Version: 13. [employer]. Care instructions adapted under license by [employer]. If you have questions about a medical condition or this instruction, always ask your healthcare professional. [employer] disclaims any warranty or liability for your use of this information. documented in this [facility] Work Phone: reason for referral (narrative)* Diagnostic Procedure Only (Routine) - Pending Review Specialty Diagnoses / Procedures [facility] Referred To Contact XR IMAGING Diagnoses Malnutrition of moderate degree (HCC) Gastrogastric fistula Procedures XR UPPER GI SINGLE CONTRAST RADIOLOGIC EXAM UPR GI TRC SINGLE CONTRAST STUDY Alysa Asencio MD [address] [place] [address] Xr Imaging Referral ID Status Reason Start Date Expiration Date Visits Requested Visits Authorized [id number] Pending Review Auto-Generat ed Referral 07/29/2021 08/28/2022 1 1 [facility] for referral (narrative)* Outpatient Procedure (Routine) - Authorized Specialty Diagnoses / Procedures [facility] Referred To Contact [facility] Diagnoses 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 Procedures EGD - THERAPEUTIC, EUS, OR TUBE INTERVENTIONS EGD DILATION GASTRIC/DUODENAL STRICTURE Alysa Asencio MD [address] [place] [address] [address] Referral ID Status Reason Start Date Expiration Date Visits Requested Visits Authorized [id number] Authorized Auto-Generat ed Referral 07/29/2021 07/29/2022 1 1 [facility] for referral (narrative)* Outpatient Procedure (Routine) - Closed Specialty Diagnoses / Procedures Referred By [facility] Referred To Contact [facility] Diagnoses 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 Procedures EGD - THERAPEUTIC, EUS, OR TUBE INTERVENTIONS EGD DILATION GASTRIC/DUODENAL STRICTURE Alysa Asencio MD [address] [place] [address] [address] Referral ID Status Reason Start Date Expiration Date V isits Requested Visits Authorized [id number] Closed Auto-Generate d Referral 07/29/2021 07/29/2022 1 1 [facility] for referral (narrative)* Outpatient Procedure (Routine) - Pending Review Specialty Diagnoses / Procedures Referred By Shaun barrera Referred To Contact [facility] Diagnoses Personal history of DVT (deep vein thrombosis) Procedures US ARM VEIN DVT AMANDA VAS LAB DUP-SCAN XTR VEINS COMPLETE BILATERAL STUDY Marnie Muhammad, WATCH TRAIN INSPECTOR.MOBILE APPLICATION ARCHITECT [address] [place] [address] [facility] [address] [place] [address] Referral ID Status Reason Start Date Expiration Date Visits Requested Visits Authorized [id number] Pending Review Auto-Generat ed Referral 10/26/2021 10/26/2022 1 1 [facility] for referral (narrative)* Outpatient Procedure (Routine) - Pending Review Specialty Diagnoses / Procedures Referred By Shaun barrera Referred To Contact [facility] Diagnoses Dysphagia, unspecified type Procedures EGD BARIATRIC ESOPHAGOGASTRODUODENOSC OPY TRANSORAL DIAGNOSTIC Sabina Bean PA-C [address] [place] [address] [facility] Disease [place] [address] [place] [address] Referral ID Status Reason Start Date Expiration Date Visits Requested Visits Authorized [id number] Pending Review Auto-Generat ed Referral 01/03/2022 01/03/2023 1 1 T [facility] for visit Narrative* Auth/Cert Specialty Diagnoses / Procedures Referred By Shaun barrera Referred To Contact Diagnoses Jejunostomy malfunction (HCC) ANASTOMOTIC STENOSIS GASTRO-JEJUNOSTOMY Procedures [place] ESOPHAGOGASTRODUODENOSCOPY TRANSORAL DIAGNOSTIC EGD ESOPHAGOGASTRODUODENOSCOPY, WITH STENT REMOVAL Lalo Lambert MD [address] [facility] [address] [place] [address] [facility] [address] [place] [address] Referral ID Status Reason Start Date Expiration Date Visits Re quested Visits Authorized [id number] 1 1 [employer] Phone: reason for visit Narrative* Auth/Cert Specialty Diagnoses / Procedures Referred By Contac t Referred To Contact Diagnoses Esophageal stricture recurrent esophageal stricture Jose Bello DO [address] [place], [place] [employer] [address] [place] [address] Referral ID Status Reason Start Date Expiration Date Visits Re quested Visits Authorized [id number] 1 1 [employer] Phone: reason for visit Narrative* Outpatient Procedure (Routine) - Closed Specialty Diagnoses / Procedures [facility] Referred To Contact [facility] Diagnoses 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 Procedures EGD - THERAPEUTIC, EUS, OR TUBE INTERVENTIONS EGD DILATION GASTRIC/DUODENAL STRICTURE Alysa Asencio MD [address] [place] [address] [facility] [place] [address] [place] [address] Referral ID Status Reason Start Date Expiration Date V isits Requested Visits Authorized [id number] Closed Auto-Generate d Referral 07/29/2021 07/29/2022 1 1 [facility] for visit Narrative* Auth/Cert Specialty Diagnoses / Procedures Referred By [facility] Referred To Contact ADMITTING Diagnoses Gastrojejunal ulcer Epigastric pain Preoperative examination Procedures LAPS ABD PRTM&OMENTUM DX W/WO SPEC BR/WA SPX [facility]NOST[facility] [address] [place] [address] Referral ID Status Reason Start Date Expiration Date Visits Re quested Visits Authorized [id number] 1 1 [facility] Course * Houston Cooper DO - 04/08/2020 2:14 PM EST [employer] Office: [phone] Peña Billings DO, Ady Shine DO, Houston Cooper DO, Darell Krueger DO, Elena Allison MD, Hannah Rodrigues MD, Murphy Ball MD, Shraddha Hamm MD, Hipolito Rodriguez MD, Jannette Albert MD, MD Asher, Flor Donnelly MD, Elayne Cleaning MD, Nate Bone DO, Lopez Garcia MD, Gustavo Morillo MD, Fabricio Mo DO, Rosalio Green MD, Jose Bello DO, Gaurav Lopez MD, MD Sam, Latonia Chavez, MOBILE APPLICATION ARCHITECT, Eliz Esquivel, MOBILE APPLICATION ARCHITECT, Suzy Wu, MOBILE APPLICATION ARCHITECT, Blanche Desouza, [facility],Edgar Staton, MOBILE APPLICATION ARCHITECT, Suyapa Almaguer, MOBILE APPLICATION ARCHITECT, Cathy Ling, MOBILE APPLICATION ARCHITECT, Loan Richardson, MOBILE APPLICATION ARCHITECT, Hever Tomlinson, MOBILE APPLICATION ARCHITECT, Niki Badillo PA-C, Arlyn Villegas, [facility], Yuki Orosco, MOBILE APPLICATION ARCHITECT, Deneen Stone, MOBILE APPLICATION ARCHITECT, Leandra Rich, MOBILE APPLICATION ARCHITECT, Lazara Ballesteros, MOBILE APPLICATION ARCHITECT, Sapphire Rivera, MOBILE APPLICATION ARCHITECT [facility] IN-PATIENT SERVICE [facility] Discharge Summary Patient ID: Sabina Espinoza : 1980 ACCOUNT: [id number] Patient's PCP: No primary care provider on [...] Is a 39-year-old male that presents to [facility] from [facility] with complaint abdominal pain with nausea vomiting is found of small bowel obstruction. He was admitted to the hospital and underwent routine treatment with nasogastric decompression but failed to improve. Ultimately florida damon completed exploratory laparotomy lysis of adhesions with [...] plan: Disposition: Home Physician Follow Up: Daniel Moyer DO [address] [facility] [address] [facility] [address] In 1 week For wound [...] Your Medications These medications were sent to [facility], [place] - [address] [facility] - P [phone] - F [phone] [place] [id number] famotidine 20 MG tablet furosemide 20 MG [...] at most local grocery stores, pharmacies, and [employer]. If you have any questions about your [...] Agent's Name Healthcare Agent's Phone Number 03/29/20 2239 No, patient does not have an advance directive for healthcare treatment -- -- -- -- -- Admitting Physician: Jose Bello DO PCP: No primary care provider on file. Discharging Nurse: Emilie Bartholomew RN Discharging Hospital Unit/Room#: 0443/0443-01 Discharging Unit Emergency Contact: Extended Emergency Contact Information Primary Emergency Contact: Laura Villanueva [place] Mobile Relation: Parent Secondary Emergency Contact: nagi villanueva Mobile Relation: Parent Preferred language: Anguillan Credit Control Officer needed? No Past Surgical History: Past Surgical History: Procedure Laterality Date CHOLECYSTECTOMY 2011 DILATATION, ESOPHAGUS GASTRIC BYPASS SURGERY 2011 KNEE SURGERY Right Multiple knee surgeries TONSILLECTOMY UVULOPALATOPHARYGOPLASTY Immunization History: There is no immunization history for the selected administration types on file for this patient. Active Problems: Patient Active Problem List Diagnosis Code SBO (small bowel obstruction) ([facility]) K56.609 Isolation/Infection: Isolation No Isolation Patient Infection [...] Independent Dressing Independent Toileting Independent Feeding Independent Granite Countertop Installer Independent Med Delivery whole Wound Care Documentation [...] - No ventilator support Rehab Therapies: {THERAPEUTIC INTERVENTION:[id number]} Weight Bearing Status/Restrictions: No weight bearing restirctions [...] applicable) Name: Address: Dialysis Schedule: Phone: Fax: Manager Reimbursement/Stave Inspector signature: PHYSICIAN SECTION Prognosis: Good Condition at [...] Where can you learn more? Go to [email or web address] and sign in to your [employer] account. Enter M933 in the Search Health Information box to learn more about [employer]. If you do not have an account, please click on the Sign Up Now link. Current as of: July 30, 2019 Content Version: 12.6 [employer]. Care instructions adapted under license by [employer]. If you have questions about a medical condition or this instruction, always ask your healthcare professional. [employer] disclaims any warranty or liability for your [...] diet. SPECIAL INSTRUCTIONS: Call the office at [phone] to schedule a follow up visit. documented [...] nagi villanueva Mobile Relation: Parent Preferred language: Anguillan Credit Control Officer needed? No Past Surgical History: Past Surgical History: Procedure Laterality Date ABDOMINAL EXPLORATION SURGERY 04/03/2020 Laparotomy exploratory, egd, prevena wound vac push endoscopy, lysis of adhessions CHOLECYSTECTOMY 2011 DILATATION, ESOPHAGUS GASTRIC BYPASS SURGERY 2010 PICC POWERPICC DOUBLE 04/05/2020 KNEE SURGERY Right Multiple knee surgeries LAPAROSCOPY N/A 03/30/2020 DIAGNOSTIC LAPAROSCOPY, LAPAROTOMY LYSIS OF ADHESIONS performed by Daniel Moyer DO at [facility] OR LAPAROTOMY 01/29/2020 DIAGNOSTIC LAPAROSCOPY, LAPAROTOMY LYSIS OF ADHESIONS LAPAROTOMY N/A 04/03/2020 LAPAROTOMY EXPLORATORY, EGD, PREVENA WOUND VAC, PUSH ENDOSCOPY, LYSIS OF ADHESIONS performed by Daniel Moyer DO at [facility] OR TONSILLECTOMY UVULOPALATOPHARYGOPLASTY Immunization History: Immunization History Administered Date(s) Administered Influenza, Quadv, IM, PF (6 mo and older Fluzone, Flulaval, Fluarix, and 3 yrs and older Afluria) 04/08/2020 Active Problems: Patient Active Problem List Diagnosis Code SBO (small bowel obstruction) ([facility]) K56.609 Severe malnutrition ([facility]) E43 Esophageal dysphagia R13.10 Essential hypertension I10 Bowel obstruction ([facility]) K56.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 [...] Independent Dressing Independent Toileting Independent Feeding Independent Granite Countertop Installer Independent Med Delivery whole Wound Care Documentation [...] applicable) Name: Address: Dialysis Schedule: Phone: Fax: Manager Reimbursement/Stave Inspector signature: {Esignature:[id number]:::0} PHYSICIAN SECTION Prognosis: Fair Condition at Discharge: [...] Instructions* Emma Aviles RN - 06/24/[address] POST-ENDOSCOPY INSTRUCTIONS: 1. ACTIVITY No driving, operating [...] PLEASE call your doctor @ or the [facility] GI Unit [phone] [facility] POST-ENDOSCOPY INSTRUCTIONS: 1. ACTIVITY No driving, [...] PLEASE call your doctor @ or the [facility] GI Unit [phone] documented in this encounter* Instructions* Juanita Espinal RN - 07/08/[address] POST-ENDOSCOPY INSTRUCTIONS: 1. ACTIVITY No driving, operating [...] PLEASE call your doctor @ or the [address] [facility] [phone] documented in this encounter* Instructions* Juanita Espinal RN - 07/22/[address] POST-ENDOSCOPY INSTRUCTIONS: 1. ACTIVITY No driving, operating [...] PLEASE call your doctor @ or the [facility] [address] [facility] [phone] documented in this encounter History of Present [...] Accumulation: 1 - Mild(to Moderate) Extremities, Generalized Commissioning Specialist Strength: Not Performed Estimated Daily Nutrient Needs: Energy (kcal): 22-25 kcal/kg = 0514-6346 kcals/day; Weight Used for Energy Requirements: [place] Protein (g): 1.2-1.5 gm/kg = 90-115 gm pro/day; Weight Used for Protein Requirements: [place] Nutrition Related Findings: labs/meds reviewed Wounds: Surgical Incision, Multiple, Wound Vac Current Nutrition Therapies: Dietary Nutrition Supplements: Dietary Nutrition Supplements: DIET DENTAL SOFT; Anthropometric Measures: Height: 5' 10 (177.8 cm) Current Body Weight: 194 lb 3.6 oz (88.1 kg) Admission Body Weight: 155 lb 6.4 oz (70.5 kg)(bed scale) Usual Body Weight: 180 lb (81.6 kg)(per pt) [place] Body Weight: 166 lbs; % [place] Body Weight 93.6 % BMI: 27.9 Adjusted [...] discharge needs at this time Contact: * Huoston Cooper DO - 04/08/2020 6:58 AM EST [facility] Office: [phone] Peña Billings DO, Ady Shine DO, Houston Cooper DO, Darell Krueger DO, Elena Allison MD, Hannah Rodrigues MD, Murphy Ball MD, Shraddha Hamm MD, Hipolito Rodriguez MD, Jannette Albert MD, MD Asher, Flor Donnelly MD, lEayne Cleaning MD, Nate Bone DO, Lopez Garcia MD, Gustavo Morillo MD, Fabricio Mo DO, Rosalio Green MD, Jose Bello DO, Gaurav Lopez MD, MD Sam, Latonia Chavez, MOBILE APPLICATION ARCHITECT, Eliz Esquivel MOBILE APPLICATION ARCHITECT, Suzy Wu, MOBILE APPLICATION ARCHITECT, Blanche Desouza, AZURE DEVELOPER,Edgar Staton MOBILE APPLICATION ARCHITECT, Suyapa Almaguer MOBILE APPLICATION ARCHITECT, Cathy Ling, MOBILE APPLICATION ARCHITECT, Loan Richardson MOBILE APPLICATION ARCHITECT, Hever Tomlinson, MOBILE APPLICATION ARCHITECT, SARAH HartleyC, Arlyn iVllegas DNP, Yuki Orosco, MOBILE APPLICATION ARCHITECT, Deneen Stone, MOBILE APPLICATION ARCHITECT, Leandra Rich MOBILE APPLICATION ARCHITECT, Lazara Ballesteros MOBILE APPLICATION ARCHITECT, Sapphire Rivera, MOBILE APPLICATION ARCHITECT [facility] IN-PATIENT SERVICE [facility] Progress Note 04/08/2020 6:58 AM Name: Sabina Espinoza Acct: [id number] Room: 0432/0432-02 Day: 10 Admit Date: 03/29/2020 [...] of intestinal obstruction. Patient presents to the [facility] emergency room for the complaint of [...] however [facility] therefore he was transferred to [facility]. 03/30 diagnostic lap converted to open exploratory [...] results found for: POCPH, PHART, PH, POCPCO2, HES8RVR, PCO2, POCPO2, PO2ART, PO2, POCHCO3, [id number], HCO3, NBEA, PBEA, BEART, BE, THGBART, THB, [id number], [id number], [id number], O2SAT, FIO2 Lab Results Component Value Date/Time [...] POA * (Principal) SBO (small bowel obstruction) ([facility]) 04/03/2020 Yes Severe protein-calorie malnutrition (HCC) 04/01/2020 [...] DO 04/08/2020 6:58 AM * Celso Craft, FINANCE BUSINESS PARTNER - 04/07/2020 3:58 PM EST Physical Therapy Facility/Department: [address] STE[address]OWN Daily Treatment Note NAME: Sabina [...] Accumulation: 1 - Mild(to Moderate) Extremities, Generalized Commissioning Specialist Strength: Not Performed Estimated Daily Nutrient Needs: Energy (kcal): 22-25 kcal/kg = 2641-9606 kcals/day; Weight Used for Energy Requirements: [place] Protein (g): 1.2-1.5 gm/kg = 90-115 gm pro/day; Weight Used for Protein Requirements: [place] Nutrition Related Findings: Labs: K+3.3 mmol/L, Phos 1.5 mg/dL, Ca+6.8 mg/dL. Meds: RegJOVANY johns. BM/. H/o gastric bypass. Wounds: Surgical Incision, Multiple, [...] Body Weight: 180 lb (81.6 kg)(per pt) [place] Body Weight: 166 lbs; % [place] Body Weight 93.6 % BMI: 27.9 BMI [...] Cooper DO - 04/07/2020 9:31 AM EST [facility] Office: [phone] Peña Billings DO, Ady Shine DO, Houston Cooper DO, Darell Krueger DO, Elena Allison MD, Hannah Rodrigues MD, Murphy Ball MD, Shraddha Hamm MD, Hipolito Rodriguez MD, Jannette Albert MD, MD Asher, Flor Donnelly MD, Elayne Cleaning MD, Nate Bone DO, Lopez Garcia MD, Gustavo Morillo MD, Fabricio Mo DO, Rosalio Green MD, Jose Bello DO, Gaurav Lopez MD, MD Sam, Latonia Chavez, MOBILE APPLICATION ARCHITECT, Eliz Esquivel, MOBILE APPLICATION ARCHITECT, Suzy Wu, MOBILE APPLICATION ARCHITECT, Blanche Desouza, AZURE DEVELOPER,Edgar Staton, MOBILE APPLICATION ARCHITECT, Suyapa Almaguer, MOBILE APPLICATION ARCHITECT, Cathy Ling, MOBILE APPLICATION ARCHITECT, Loan Richardson, MOBILE APPLICATION ARCHITECT, Hever Tomlinson, MOBILE APPLICATION ARCHITECT, Niki Badillo PA-C, Arlyn Villegas, DOMINIQUE, Yuki Orosco, MOBILE APPLICATION ARCHITECT, Deneen Stone, MOBILE APPLICATION ARCHITECT, Leandra Rich, MOBILE APPLICATION ARCHITECT, Lazara Ballesteros, MOBILE APPLICATION ARCHITECT, Sapphire Rivera, MOBILE APPLICATION ARCHITECT [facility] IN-PATIENT SERVICE [facility] Progress Note 04/07/2020 9:31 AM Name: Sabina Espinoza Acct: [id number] Room: [address] [place] [address] Day: 9 Admit Date: 03/29/2020 10:04 PM [...] of intestinal obstruction. Patient presents to the [facility] emergency room for the complaint of [...] [facility] facilities therefore he was transferred to [facility]. 03/30 diagnostic lap converted to open exploratory [...] 0722 04/06/20 1243 04/06/20 2100 04/07/20 0424 TRIG -- -- 65 -- -- -- -- POCGLU 99 87 -- 84 95 91 107 ABG:No results found for: POCPH, PHART, PH, POCPCO2, KEY4YPY, PCO2, POCPO2, PO2ART, PO2, POCHCO3, [id number], HCO3, NBEA, PBEA, BEART, BE, THGBART, THB, [id number], [id number], [id number], O2SAT, FIO2 Lab Results Component Value Date/Time [...] tech, proper hand placement for transfers, andpain property management assistant with good return REQUIRES OT FOLLOW UP: [...] (N/A, 04/03/2020); and picc powerpicc double (04/05/2020). Treatment Diagnosis: SBO [...] Ambulation Assistance: Independent Transfer Assistance: Independent Active Gasket Notcher: No Patient's Gasket Notcher Info: Parents drive Mode of Transportation: Family, Car Occupation: Unemployed Leisure & Hobbies: play [employer], take the dog for a walk, work [...] / ADL, Home Management Training AM-PAC Score AM-[facility] Inpatient Daily Activity Raw Score: 17 (04/06/201348) AM-[facility] Inpatient ADL T-Scale Score : 37.26 (04/06/201348) ADL Inpatient CMS 0-100% Score: 50.11 (04/06/201348) ADL Inpatient CMS G-Code Modifier : CK (04/06/201348) Goals Short [...] Piña RN - 04/06/2020 1:27 PM EST Paged Regarding BP * Keshia Don RD, LD - [...] Accumulation: 1 - Mild(to Moderate) Extremities, Generalized Commissioning Specialist Strength: Not Performed Estimated Daily Nutrient Needs: Energy (kcal): 22-25 kcal/kg = 8459-8004 kcals/day; Weight Used for Energy Requirements: [place] Protein (g): 1.2-1.5 gm/kg = 90-115 gm pro/day; Weight Used for Protein Requirements: [place] Nutrition Related Findings: Hypoactive bowel sounds. Meds: Phos 1.4 mg/dL, Ca+6.9 mg/dL. Meds: Reglan, MVI. Last BM 04/02 - c/o constipation. H/o gastric bypass. Wounds: Surgical Incision, Multiple, Wound Vac Current Nutrition Therapies: PN-Adult Premix 09/02 - Standard Electrolytes - Central Line DIET [...] Body Weight: 180 lb (81.6 kg)(per pt) [place] Body Weight: 166 lbs; % [place] Body Weight 93.6 % BMI: 27.3 BMI [...] 04/06/2020 12:26 PM EST Physical Therapy Facility/Department: [address] STE[address]OWN Initial Assessment NAME: Sabina Espinoza [...] 04/03/2020); and hc picc powerpicc double (04/05/2020). Restrictions Restrictions/Precautions Restrictions/Precautions: [...] Ambulation Assistance: Independent Transfer Assistance: Independent Active Gasket Notcher: No Patient's Gasket Notcher Info: Parents drive Mode of Transportation: Family, Car Occupation: Unemployed Leisure & Hobbies: play [employer], take the dog for a walk, work [...] Inpatient Mobility Raw Score : 16 (04/06/20 1221) AM-PAC Inpatient T-Scale Score : 40.78 (04/06/20 1221) Mobility Inpatient CMS 0-100% Score: 54.16 (04/06/20 1221) Mobility Inpatient CMS G-Code Modifier : CK (04/06/20 122) Goals Short term goals Time Frame for [...] Malone PT * Arlyn Villegas APRN - NP - 04/06/2020 8:59 AM EST [facility] Office: [phone] Peña Billings DO, Ady Shine DO, Houston Cooper, DO, Darell Krueger, DO, Elena Allison MD, Hannah Rodrigues MD, Murphy Ball MD, Shraddha Hamm MD, Hipolito Rodriguez MD, Jannette Albert MD, MD Asher, Flor Donnelly MD, Elayne Cleaning MD, Nate Bone DO, Lopez Garcia MD, Gustavo Morillo MD, Fabricio Mo, DO, Rosalio Green MD, Jose Bello DO, Gaurav Lopez MD, MD Sam, Latonia Chavez, MOBILE APPLICATION ARCHITECT, Eliz Esquivel, MOBILE APPLICATION ARCHITECT, Suzy Wu, MOBILE APPLICATION ARCHITECT, Blanche Desouza, [facility],Edgar Staton, MOBILE APPLICATION ARCHITECT, Suyapa Almaguer, MOBILE APPLICATION ARCHITECT, Cathy Ling, MOBILE APPLICATION ARCHITECT, Loan Richardson, MOBILE APPLICATION ARCHITECT, Hever Tomlinson, MOBILE APPLICATION ARCHITECT, Niki Badillo PA-C, Arlyn Villegas, [facility], Yuki Orosco, MOBILE APPLICATION ARCHITECT, Deneen Stone, MOBILE APPLICATION ARCHITECT, Leandra Rich, MOBILE APPLICATION ARCHITECT, Lazara Ballesteros, MOBILE APPLICATION ARCHITECT, Sapphire Rivera, MOBILE APPLICATION ARCHITECT [facility] IN-PATIENT SERVICE [facility] Progress Note 04/06/2020 8:59 AM Name: Sabina Espinoza Acct: [id number] Room: [address] [place] [address] Day: 8 Admit Date: 03/29/2020 10:04 PM [...] of intestinal obstruction. Patient presents to the [facility] emergency room for the complaint of [...] however there are no beds in the [facility] facilities therefore he was transferred to [facility]. 03/30 diagnostic lap converted to open exploratory [...] results found for: POCPH, PHART, PH, POCPCO2, [id number], PCO2, POCPO2, PO2ART, PO2, POCHCO3, SWP7NFB, HCO3, NBEA, PBEA, BEART, BE, THGBART, THB, [id number], [id number], [id number], O2SAT, FIO2 Lab Results Component Value Date/Time [...] POA * (Principal) SBO (small bowel obstruction) ([facility]) 04/03/2020 Yes Severe protein-calorie malnutrition ([facility]) 04/01/2020 Yes Esophageal dysphagia 04/01/2020 Yes Iron [...] as indicated Arlyn Villegas APRN - JC 04/06/2020 8:59 AM Associated attestation - Houston [...] ng tube, start CLD. 4. Can D/C cralson 5. We will start every 12 hrs- [...] patient due to expected ileus * Keshia Don RD, LD - 04/05/2020 3:33 PM EST [...] Accumulation: 1 - Mild(to Moderate) Extremities, Generalized Commissioning Specialist Strength: Not Performed Estimated Daily Nutrient Needs: Energy (kcal): 22-25 kcal/kg = 2470-1742 kcals/day; Weight Used for Energy Requirements: [place] Protein (g): 1.2-1.5 gm/kg = 90-115 gm pro/day; Weight Used for Protein Requirements: [place] Nutrition Related Findings: Active/Hypoactive bowel sounds. Labs reviewed: Ca+6.8 mgdL, Cl 110 mmol/L. Meds reviewed: RegJOVANY johns. Last BM 04/02. H/o gastric bypass. Wounds: [...] Body Weight: 180 lb (81.6 kg)(per pt) [place] Body Weight: 166 lbs; % [place] Body Weight 93.6 % BMI: 27.3 BMI [...] Physical Findings, Skin, Weight Contact: * Gisselle Hughes PT - 04/05/2020 3:30 PM EST Physical [...] PICC line insertion is no longer on contract technical writer's list. Order completed by Shruti MATOS. Perfect serve received that consent had been obtained. Perfect serve sent to Shruti MATOS that order needs to be reentered in order for line to be placed. * Breonna Almeida RN - 04/05/2020 12:05 PM EST Spoke with bedside RN. No consent has been obtained by physicians or [facility]. Notified it needs to be completed by physician and then to perfect nikko contract technical writer and PICC can be completed. * Arlyn Villegas APRN - [facility] - 04/05/2020 9:02 AM EST [facility] Office: [phone] Peña Billings, DO, Ady Shine DO, Houston Cooper DO, Darell Krueger, DO, Elena Allison MD, Hannah Rodrigues MD, Murphy Ball MD, Shraddha Hamm MD, Hipolito Rodriguez MD, Jannette Albert MD, MD Asher, Flor Donnelly MD, Elayne Cleaning MD, Nate Bone DO, Lopez Garcia MD, Gustavo Morillo MD, Fabricio Mo DO, Rosalio Green MD, Jose Bello DO, Gaurav Lopez MD, MD Sam, Latonia Chavez, MOBILE APPLICATION ARCHITECT, Eliz Esquivel, MOBILE APPLICATION ARCHITECT, Suzy Wu, MOBILE APPLICATION ARCHITECT, Blanche Desouza, AZURE DEVELOPER,Edgar Staton, MOBILE APPLICATION ARCHITECT, Suyapa Almaguer MOBILE APPLICATION ARCHITECT, Cathy Ling, MOBILE APPLICATION ARCHITECT, Loan Richardson, MOBILE APPLICATION ARCHITECT, Hever Tomlinson, MOBILE APPLICATION ARCHITECT, Niki Badillo, ALEX, Arlyn Villegas, DOMINIQUE, Yuki Orosco, MOBILE APPLICATION ARCHITECT, Deneen Stone, MOBILE APPLICATION ARCHITECT, Leandra Rich, MOBILE APPLICATION ARCHITECT, Lazara Ballesteros CNP, Sapphire Rivera CNP [facility] Progress Note 04/05/2020 9:03 AM Name: Sabina Espinoza Acct: [id number] Room: 0432/0432-02 IP Day: 7 Admit Date: 03/29/2020 10:04 PM [...] of intestinal obstruction. Patient presents to the [facility] emergency room for the complaint of [...] [facility] facilities therefore he was transferred to [facility]. 03/30 diagnostic lap converted to open exploratory [...] results found for: POCPH, PHART, PH, POCPCO2, XBE2VJJ, PCO2, POCPO2, PO2ART, PO2, POCHCO3, JOC3YCL, HCO3, NBEA, PBEA, BEART, BE, THGBART, THB, JHB2INM, OZSI2AXW, V1CVSVYG, O2SAT, FIO2 Lab Results Component Value Date/Time [...] POA * (Principal) SBO (small bowel obstruction) ([facility]) 04/03/2020 Yes Severe protein-calorie malnutrition ([facility]) 04/01/2020 Yes Esophageal dysphagia 04/01/2020 Yes Iron [...] electrolytes as indicated Arlyn Villegas APRN - [facility] 04/05/2020 9:03 AM Associated attestation - Dinesh [...] hours. Arlyn Tillman 04/05/20, 8:09 AM * Filiberto Carrillo, DO - 04/05/2020 6:40 AM EST General [...] Burgess MD - 04/04/2020 11:04 AM EST [facility] Office: [phone] Peña Billings DO, Ady Shine DO, [place] [...] MD Sam, Latonia Chavez CNP, Eliz Esquivel MOBILE APPLICATION ARCHITECT, Suzy Wu, MOBILE APPLICATION ARCHITECT, Blanche Desouza, AZURE DEVELOPER,Edgar Staton, MOBILE APPLICATION ARCHITECT, Suyapa Almaguer, MOBILE APPLICATION ARCHITECT, Cathy Ling, MOBILE APPLICATION ARCHITECT, Loan Richardson, MOBILE APPLICATION ARCHITECT, Hever Tomlinson, MOBILE APPLICATION ARCHITECT, Niki Badillo PA-C, Arlyn Villegas DNP, Yuki Orosco, MOBILE APPLICATION ARCHITECT, Deneen Stone, MOBILE APPLICATION ARCHITECT, Leandra Rich, MOBILE APPLICATION ARCHITECT, Lazara Ballesteros, MOBILE APPLICATION ARCHITECT, Sapphire Rivera, MOBILE APPLICATION ARCHITECT [facility] IN-PATIENT SERVICE [facility] Progress Note 04/04/2020 11:04 AM Name: Sabina Espinoza Acct: [id number] Room: 0174/0174-01 Day: 6 Admit Date: 03/29/2020 [...] of intestinal obstruction. Patient presents to the [facility] emergency room for the complaint of [...] [facility] facilities therefore he was transferred to [facility]. Date of Procedure: 03/30/2020 Pre-Op Diagnosis: INTERNAL [...] results found for: POCPH, PHART, PH, POCPCO2, GKS8OKI, PCO2, POCPO2, PO2ART, PO2, POCHCO3, WQJ1IXI, HCO3, NBEA, PBEA, BEART, BE, THGBART, THB, HQF9IFW, BOLL4TPY, Q2FAVMOV, O2SAT, FIO2 Lab Results Component Value Date/Time [...] Intake/Output Summary (Last 24 hours) at 04/04/2020 0812 Last data filed at 04/04/2020 0752 Gross [...] Burgess MD - 04/03/2020 4:30 PM EST [facility] Office: [phone] Peña Billings DO, Ady Shine DO, [place] Cooper DO, Darell Krueger DO, Elena Allison MD, Hannah Rodrigues MD, Murphy Ball MD, Shraddha Hamm MD, Hipolito Rodriguez MD, Jannette Albert MD, MD Asher, Flor Donnelly MD, Elayne Cleaning MD, Nate Bone DO, Lopez Garcia MD, Gustavo Morillo MD, Fabricio Mo DO, Rosalio Green MD, Jose Bello DO, Gaurav Lopez MD, MD Sam, Latonia Chavez, MOBILE APPLICATION ARCHITECT, Eliz Esquivel, MOBILE APPLICATION ARCHITECT, Suzy Wu, MOBILE APPLICATION ARCHITECT, Blanche Desouza, AZURE DEVELOPER,Edgar Staton, MOBILE APPLICATION ARCHITECT, Suyapa Almaguer, MOBILE APPLICATION ARCHITECT, Cathy Ling, MOBILE APPLICATION ARCHITECT, Loan Richardson, MOBILE APPLICATION ARCHITECT, Hever Tomlinson, MOBILE APPLICATION ARCHITECT, Niki Badillo PA-C, Arlyn Villegas, DOMINIQUE, Yuki Orosco, MOBILE APPLICATION ARCHITECT, Deneen Stone, MOBILE APPLICATION ARCHITECT, Leandra Rich, MOBILE APPLICATION ARCHITECT, Lazara Ballesteros, MOBILE APPLICATION ARCHITECT, Sapphire Rivera, MOBILE APPLICATION ARCHITECT [facility] IN-PATIENT SERVICE [facility] Progress Note 04/03/2020 4:30 PM Name: Sabina Espinoza Acct: [id number] Room: 0174/0174-01 IP Day: 5 Admit Date: 03/29/2020 10:04 PM [...] of intestinal obstruction. Patient presents to the [facility] emergency room for the complaint of [...] however there are no beds in the [facility] facilities therefore he was transferred to [facility]. Date of Procedure: 03/30/2020 Pre-Op Diagnosis: INTERNAL [...] 3839 ml Labs: Hematology: Recent Labs 04/01/20 0817 04/02/20 0301 04/03/20 0730 WBC 7.9 5.6 4.5 RBC 4.35 4.39 4.12* HGB 9.5* 9.6* 9.3* HCT 33.9* 33.8* 32.3* MCV 77.9* 77.0* 78.4* MCH 21.8* 21.9* 22.6* MCHC 28.0* 28.4 28.8 RDW 23.8* 23.6* 24.1* PLT 455* 453 498* MPV 9.8 9.4 9.5 Chemistry: Recent Labs 04/01/20 0817 04/02/20 0301 04/03/20 0730 04/03/20 1458 NA 136 135 135 [...] 7.4* 7.5* 7.0* -- Recent Labs 04/02/20 0301 04/03/20 1448 04/03/20 1526 PROT 4.9* -- -- LABALBU 1.8* -- -- AST 103* -- -- ALT 56* -- -- ALKPHOS 232* -- -- BILITOT 0.23* -- -- POCGLU -- 62* 79 ABG:No results found for: POCPH, PHART, PH, POCPCO2, MRK1SKY, PCO2, POCPO2, PO2ART, PO2, POCHCO3, WFQ5AYB, HCO3, NBEA, PBEA, BEART, BE, THGBART, THB, KFE1XYB, OHMV0VBZ, Q3GAHVEE, O2SAT, FIO2 No results found for: SPECIAL [...] Burgess MD 04/03/2020 4:30 PM * Kylie Parker RN - 04/03/2020 2:[address] Donnelly called with glucose 62, orders received. * Kvng Carpenter RN - 04/03/2020 2:46 PM EST Patient's belongings arrived from previous room. Belongings consist of: Coat, hooded sweater x2, pair of gloves, winter hat, t-shirt x2, sweat pants x2, shorts x2, pair ofshoes, pair of socks, cell phone and ged preparation teacher. Patient's belongings now in room 174. * [...] attestation - Daniel Moyer DO - 04/03/2020 10:43 AM EST Patient seen [...] Discussed with RN. Thank you, * Vivi Almanzar PT - 04/02/2020 11:53 AM EST Physical [...] Therapy is not appropriate at this time. Yohan Trinidad PT * Mita Patterson OT - 04/02/2020 10:50 AM EST Occupational [...] of intestinal obstruction. Patient presents to the [facility] emergency room for the complaint of [...] however there are no beds in the [facility] facilities therefore he was transferred to [facility]. 03/30 diagnostic lap converted to open exploratory [...] Ambulation Assistance: Independent Transfer Assistance: Independent Active Gasket Notcher: No Patient's Gasket Notcher Info: Parents drive Mode of Transportation: Family, [...] per week: 1-3 tx sessions AM-PAC Score AM-[facility] Inpatient Daily Activity Raw Score: 22 (04/02/20 1053) AM-PAC Inpatient ADL T-Scale Score : 47.1 (04/02/20 1053) ADL Inpatient [facility] 0-100% Score: 25.8 (04/02/20 1053) ADL Inpatient CMS G-Code Modifier : CJ (04/02/20 1053) Goals Short term goals Time Frame for [...] Time Individual Concurrent Group Co-treatment Time In 928 Time Out 0959 Minutes 30 Timed Code Treatment Minutes: 24 Minutes MITA PATTERSON OTR/L IFER * Arlyn Villegas APRN - [facility] - 04/02/2020 8:53 AM EST [facility] Office: [phone] Peña Billings DO, Ady Shine DO, [place] Cooper DO, Darell Krueger DO, Elena Allison MD, Hannah Rodrigues MD, Murphy Ball MD, Shraddha Hamm MD, Hipolito Rodriguez MD, Jannette Albert MD, MD Asher, Flor Donnelly MD, Elayne Cleaning MD, Nate Bone DO, Lopez Garcia MD, Gustavo Morillo MD, Fabricio Mo DO, Rosalio Green MD, Jose Bello DO, Gaurav Lopez MD, MD Sam, Latonia Chavez, MOBILE APPLICATION ARCHITECT, Eliz Esquivel, MOBILE APPLICATION ARCHITECT, Suzy Wu, MOBILE APPLICATION ARCHITECT, Blanche Desouza, AZURE DEVELOPER,Edgar Staton, MOBILE APPLICATION ARCHITECT, Suyapa Almaguer, MOBILE APPLICATION ARCHITECT, Cathy Ling, MOBILE APPLICATION ARCHITECT, Loan Richardson, MOBILE APPLICATION ARCHITECT, Hever Tomlinson, MOBILE APPLICATION ARCHITECT, SARAH HartleyC, Arlyn Villegas, DOMINIQUE, Yuki Orosco, MOBILE APPLICATION ARCHITECT, Deneen Stone, MOBILE APPLICATION ARCHITECT, Leandra Rich, MOBILE APPLICATION ARCHITECT, Lazara Ballesteros, MOBILE APPLICATION ARCHITECT, Sapphire Rivera, MOBILE APPLICATION ARCHITECT [facility] IN-PATIENT SERVICE [facility] Progress Note 04/02/2020 10:44 AM Name: Sabina Espinoza Acct: [id number] Room: 0443/0443-01 Day: 4 Admit Date: 03/29/2020 [...] of intestinal obstruction. Patient presents to the [facility] emergency room for the complaint of [...] [facility] he was [facility] to [facility]. 03/30 diagnostic lap converted to open exploratory [...] results found for: POCPH, PHART, PH, POCPCO2, YPD1MLQ, PCO2, POCPO2, PO2ART, PO2, POCHCO3, GML9JHG, HCO3, NBEA, PBEA, BEART, BE, THGBART, THB, XTV1JES, HWNA2XUM, M2EBYIDW, O2SAT, FIO2 No results found for: SPECIAL [...] PT, OT 8. Replace electrolytes as indicated ArlynAQUILES Camarillo NP 04/02/2020 10:44 AM Associated attestation - Dinesh [...] Awaiting return of bowel function. * Filiberto Carrillo, - 04/02/2020 6:45 AM EST General Surgery: [...] diet this morning. States improved * Deneen Stone APRN - CNP - 04/02/2020 2:09 AM EST Asked to [...] for the resistant hypertension if this continues. IFER * Maria Eugenia Bowers RD, LD - 04/01/2020 1:21 PM EST Comprehensive [...] (quadraceps) Fluid Accumulation: No significant fluid accumulation Commissioning Specialist Strength: Not Performed Estimated Daily Nutrient Needs: Energy (kcal): 22-25 kcal/kg = 6280-7987 kcals/day; Weight Used for Energy Requirements: [place] Protein (g): 1.2-1.5 gm/kg = 90-115 gm pro/day; Weight Used for Protein Requirements: [place] Nutrition Related Findings: Labs reviewed. Meds reviewed: [...] Body Weight: 180 lb (81.6 kg)(per pt) [place] Body Weight: 166 lbs; % [place] Body Weight 93.6 % BMI: 22.3 Adjusted [...] - JC - 04/01/2020 7:27 AM EST [facility] Office: [phone] Peña Billings DO, Ady Shine DO, [place] [...] MD Sam, Latonia Chavez CNP, Eliz Esquivel MOBILE APPLICATION ARCHITECT, Suzy Wu, MOBILE APPLICATION ARCHITECT, Blanche Desouza, AZURE DEVELOPER,Edgar Staton, MOBILE APPLICATION ARCHITECT, Suyapa Almaguer, MOBILE APPLICATION ARCHITECT, Cathy Ling, MOBILE APPLICATION ARCHITECT, Loan Richardson, MOBILE APPLICATION ARCHITECT, Hever Tomlinson CNP, Niki Badillo PA-C, Arlyn Villegas, DOMINIQUE, Yuki Orosco CNP, Deneen Stone, MOBILE APPLICATION ARCHITECT, Leandra Rich, MOBILE APPLICATION ARCHITECT, Lazara Ballesteros MOBILE APPLICATION ARCHITECT, Sapphire Rivera, MOBILE APPLICATION ARCHITECT [facility] IN-PATIENT SERVICE [facility] Progress Note 04/01/2020 7:27 AM Name: Sabina Espinoza Acct: [id number] Room: [facility]3-[facility] Day: 3 Admit Date: 03/29/2020 10:04 PM [...] of intestinal obstruction. Patient presents to the [facility] emergency room for the complaint of [...] however [facility] therefore he was transferred to [facility]. 03/30 diagnostic lap converted to open exploratory [...] Intake/Output Summary (Last 24 hours) at 04/01/2020 0727 Last data filed at 03/31/2020 1840 Gross [...] results found for: POCPH, PHART, PH, POCPCO2, CFN6QYZ, PCO2, POCPO2, PO2ART, PO2, POCHCO3, IPU1TAV, HCO3, NBEA, PBEA, BEART, BE, THGBART, THB, VGH1XGD, YWIM7FUX, B9CMJFQW, O2SAT, FIO2 No results found for: SPECIAL [...] Last Modified POA SBO (small bowel obstruction) ([facility]) 03/29/2020 Yes Severe protein-calorie malnutrition (HCC) 03/30/2020 Yes Esophageal dysphagia 03/30/2020 Yes Iron [...] Replace electrolytes as indicated AQUILES Perales NP 04/01/2020 7:27 AM Associated attestation - Dinesh [...] Awaiting return of bowel function. * Filiberto Carrillo, - 04/01/2020 6:34 AM EST General Surgery: Daily Progress Note PATIENT NAME: Sabina Espinoza TODAY'S DATE: 04/01/2020, 6:35 AM SUBJECTIVE: Pt seen and examined at bedside this morning. No acute events overnight. Afebrile. Out of bed ambulating. Tolerating general diet with no nausea or vomiting. Pain well controlled. Incisions healing well. Eugene intact. Denies any flatus or bowel movement [...] - JC - 03/31/2020 9:53 AM EST [facility] Office: [phone] Peña Billings DO, Ady Shine DO, [place] Cooper DO, Darell Krueger DO, Elena Allison MD, Hannah Rodrigues MD, Murphy Ball MD, Shraddha Hamm MD, Hipolito Rodriguez MD, Jannette Albert MD, MD Asher, Flor Donnelly MD, Elayne Cleaning MD, Nate Bone DO, Lopez Garcia MD, Gustavo Morillo MD, aFbricio Mo DO, Rosalio Green MD, Jose Bello DO, Gaurav Lopez MD, MD Sam, Latonia Chavez CNP, Eliz Esquivel MOBILE APPLICATION ARCHITECT, Suzy Wu, MOBILE APPLICATION ARCHITECT, Blanche Desouza, AZURE DEVELOPER,Edgar Staton, MOBILE APPLICATION ARCHITECT, Suyapa Almaguer, MOBILE APPLICATION ARCHITECT, Cathy Ling, MOBILE APPLICATION ARCHITECT, Loan Richardson, MOBILE APPLICATION ARCHITECT, Hever Tomlinson, MOBILE APPLICATION ARCHITECT, Niki Badillo PA-C, Arlyn Villegas, DOMINIQUE, Yuki Orosco, MOBILE APPLICATION ARCHITECT, Deneen Stone, MOBILE APPLICATION ARCHITECT, Leandra Rich, MOBILE APPLICATION ARCHITECT, Lazara Ballesteros, MOBILE APPLICATION ARCHITECT, Sapphire Rivera, MOBILE APPLICATION ARCHITECT [facility] IN-PATIENT SERVICE [facility] Progress Note 03/31/2020 9:53 AM Name: Sabina Espinoza Acct: [id number] Room: [address] [place] [address] Day: 2 Admit Date: 03/29/2020 10:04 PM [...] of intestinal obstruction. Patient presents to the [facility] emergency room for the complaint of [...] [facility] facilities therefore he was transferred to [facility]. 03/30 diagnostic lap converted to open exploratory [...] results found for: POCPH, PHART, PH, POCPCO2, BGG4KCP, PCO2, POCPO2, PO2ART, PO2, POCHCO3, TBD5EZB, HCO3, NBEA, PBEA, BEART, BE, THGBART, THB, DPZ2ZEQ, DOKX8GUQ, D4PJMSXJ, O2SAT, FIO2 No results found for: SPECIAL [...] Last Modified POA SBO (small bowel obstruction) (HCC) 03/29/2020 Yes Severe protein-calorie malnutrition (HCC) 03/30/2020 [...] anemia [D50.9] 03/30/2020 SBO (small bowel obstruction) ([facility]) [K56.609] 03/29/2020 1. 39 y.o. male postop [...] AM EST SBP post op was 194, building and construction manager director of marketing communications notified via perfect serve. 5mg of lopressor [...] lab by Genet ARTEAGA * Jose Bello DO - 03/30/2020 3:53 PM EST [facility] Office: [phone] Peña Billings DO, Ady Shine DO, [place] Cooper DO, Darell Krueger, DO, Elena Allison MD, Hannah Rodrigues MD, Murphy Ball MD, Shraddha Hamm MD, Hipolito Rodriguez MD, Jannette Albert MD, MD Asher, Flor Donnelly MD, Elayne Cleaning MD, Nate Bone DO, Lopez Garcia MD, Gustavo Morillo MD, Fabricio Mo DO, Rosalio Green MD, Jose Bello DO, Gaurav Lopez MD, MD Sam, Latonia Chavez, MOBILE APPLICATION ARCHITECT, Eliz Esquivel, MOBILE APPLICATION ARCHITECT, Suzy Wu, MOBILE APPLICATION ARCHITECT, Blanche Desouza, AZURE DEVELOPER,Edgar Staton, MOBILE APPLICATION ARCHITECT, Suyapa Almaguer MOBILE APPLICATION ARCHITECT, Cathy Ling, MOBILE APPLICATION ARCHITECT, Loan Richardson, MOBILE APPLICATION ARCHITECT, Hever Tomlinson, MOBILE APPLICATION ARCHITECT, Niki Badillo PA-C, Arlyn Villegas, DOMINIQUE, Yuki Orosco, MOBILE APPLICATION ARCHITECT, Deneen Stone, MOBILE APPLICATION ARCHITECT, Leandra Rich, MOBILE APPLICATION ARCHITECT, Lazara Ballesteros, MOBILE APPLICATION ARCHITECT, Sapphire Rivera, MOBILE APPLICATION ARCHITECT [facility] IN-PATIENT SERVICE [facility] Progress Note 03/30/2020 4:08 PM Name: Sabina Espinoza Acct: [id number] Room: [facility] RM/NONE IP Day: 1 Admit Date: 03/29/2020 10:04 PM [...] 10 mL Intravenous 2 times per day [JUN Hold] enoxaparin 40 mg Subcutaneous Daily [JUN Hold] influenza virus vaccine 0.5 mL Intramuscular Prior to discharge Continuous Infusions: [JUN Hold] sodium chloride 75 mL/hr at 03/30/20 1204 PRN Meds: fentanNYL, fentanNYL, HYDROmorphone, HYDROmorphone, [JUN Hold] sodium chloride flush, [JUN Hold] potassium chloride OR [JUN Hold] potassium alternative oral replacement OR [JUN Hold] potassium chloride, [JUN Hold] magnesium sulfate, [JUN Hold] promethazine OR [JUN Hold] ondansetron, [JUN Hold] polyethylene glycol, [JUN Hold] nicotine, [JUN Hold] acetaminophen OR [JUN Hold] acetaminophen, [JUN Hold] fentanNYL Data: Past Medical History: has a [...] results found for: POCPH, PHART, PH, POCPCO2, CHV0DUE, PCO2, POCPO2, PO2ART, PO2, POCHCO3, YRA8MSE, HCO3, NBEA, PBEA, BEART, BE, THGBART, THB, STF2DRW, OVKJ3SVY, N1VSHUVU, O2SAT, FIO2 No results found for: SPECIAL [...] Last Modified POA SBO (small bowel obstruction) ([facility]) 03/29/2020 Yes Severe protein-calorie malnutrition ([facility]) 03/30/2020 Yes Esophageal dysphagia 03/30/2020 Yes Microcytic [...] around 180-200 lb. Pt reports since surgery beryli ng some issues with certain foods he [...] (quadraceps) Fluid Accumulation: No significant fluid accumulation Commissioning Specialist Strength: Not Performed Estimated Daily Nutrient Needs: Energy (kcal): 22-25 kcal/kg = 1693-7728 kcals/day; Weight Used for Energy Requirements: [place] Protein (g): 1.2-1.5 gm/kg = 90-115 gm pro/day; Weight Used for Protein Requirements: [place] Nutrition Related Findings: Hypoactive bowel sounds. Hx [...] Body Weight: 180 lb (81.6 kg)(per pt) [place] Body Weight: 166 lbs; % [place] Body Weight 82.5 % BMI: 19.7 BMI [...] 03/29/2020 11:25 PM EST Pt. transferred from [facility] before RN got report. Pt is a(x) for a SBO with 6/10 abd pain. Given50 mcg of fentynl before being brought here. Pt will be NPO at midnight, Gen surg consult in. He also said he has anxiety in the hopital and intermittantly at night. He doesnt take any RX meds for it, but takes something (not sure what) over the counter. [address] director of marketing communications contacted via [facility] serve regard ing pain management and antianxiety [...] 05/27/2020 3:00 PM EST TPN turned off. Testing And Regulating Technician will continue to monitor. * Emma Rankin RN - 05/27/2020 2:44 PM EST Patient given discharge paperwork and all questions answered. TPN can be disconnected at 1500 to bedischarged. Testing And Regulating Technician will continue to monitor. Emma Kearns RN - 05/27/2020 2:00 PM EST TPN rate decreased by half again to wean for home. Testing And Regulating Technician will continue to monitor. * Daryl Aguilar - 05/27/2020 1:19 PM EST CLINICAL PHARMACY NOTE: MEDS TO [facility] Patient?: No Total # of Prescriptions Filled: 3 The following medications were delivered to the patient: Pantoprazole Carafate norco Total # of Interventions Completed: 0 Time Spent (min): 0 Additional Documentation: Emma Cates RN - 05/27/2020 1:00 PM EST TPN rate cut in half to wean for discharge. Testing And Regulating Technician will continue to monitor. * Edna Jimenes RD, EDDIE - 05/27/2020 12:11 PM EST Comprehensive Nutrition [...] (temporalis) Fluid Accumulation: 1 - Mild Extremities Commissioning Specialist Strength: Not Performed Estimated Daily Nutrient Needs: Energy (kcal): 30-35 kcal/kg --> 7698-3925 kcal/day; Weight Used for Energy Requirements: Admission [...] Admission Body Weight: 129 lb (58.5 kg) [place] Body Weight: 166 lbs; % [place] Body Weight 94.6 % BMI: 22.5 BMI [...] Discharge Planning: Too soon to determine Contact: [phone] * Ady Shine DO - 05/27/2020 12:09 PM EST [facility] Office: [phone] Peña Billings DO, Ady Shine DO, [place] [...] Chavez CNP, Eliz Esquivel CNP, Suzy Wu, MOBILE APPLICATION ARCHITECT, Blanche Desouza, AZURE DEVELOPER,Edgar Staton, MOBILE APPLICATION ARCHITECT, Suyapa Almaguer, MOBILE APPLICATION ARCHITECT, Cathy Ling, MOBILE APPLICATION ARCHITECT, Loan Richardson, MOBILE APPLICATION ARCHITECT, Hever Tomlinson CNP, Niki Badillo PA-C, Arlyn Villegas, DOMINIQUE, Yuki Orosco MOBILE APPLICATION ARCHITECT, Deneen Stone, MOBILE APPLICATION ARCHITECT, Leandra Rich, MOBILE APPLICATION ARCHITECT, Lazara Ballesteros MOBILE APPLICATION ARCHITECT, Sapphire Rivera, MOBILE APPLICATION ARCHITECT [facility] IN-PATIENT SERVICE [facility] Progress Note 05/27/2020 1:00 PM Name: Sabina Espinoza Acct: [id number] Room: 0239/0239-01 Day: 4 Admit Date: 05/23/2020 8:14 PM PCP: No primary care provider on file. Code Status: Full Code Subjective: C/C: Abdominal pain Interval History Status: Has been doing better with diet Has been n.p.o. for EGD Chronic abdominal pain controlled Patient hoping to go home today Data Base Updates: Albumin1.8Low Calcium7.6Low mg/dL Iwtkec334Fel Sofktfq504Hgdy mg/dL QZJ37hq/dL CREATININE0.28Low WBC4.7k/uL RBC3.57Low m/uL Tdvikghitu28.2Low Brief History: As documented in the medical [...] 1 g Oral 4 times per day [JUN Hold] therapeutic multivitamin-minerals 1 tablet Oral Daily [Jun] thiamine 200 mg Oral Daily [JUN Hold] lidocaine 1 % injection 5 mL Intradermal Once [JUN Hold] sodium chloride flush 10 mL Intravenous 2 times per day [JUN Hold] gabapentin 300 mg Oral Q8H [JUN Hold] enoxaparin 40 mg Subcutaneous Daily Continuous Infusions: [JUN Hold] dextrose [JUN Hold] PN-Adult 2-in-1 Central Line (Standard) 65 mL/hr at 05/26/20 1845 [JUN Hold] fat emulsion 100 mL (05/27/20 0649) [JUN Hold] lactated ringers 20 mL/hr at 05/25/20 1052 PRN Meds: [JUN Hold] glucose, [JUN Hold] dextrose, [JUN Hold] glucagon (rDNA), [JUN Hold] dextrose,[JUN Hold] HYDROcodone 5 mg - acetaminophen, [JUN Hold] [...] C), Max:98.4 F (36.9 C) Recent Labs 02/02/03 65805/26/20181105/27/2022505/27/20642 POCGLU 65* 102 99 95 I/O (24Hr): Intake/Output Summary (Last 24 hours) at 05/27/2020 1300 Last data filed at 05/27/2020 0215 Gross per 24 hour Intake Output 900 ml Net -900 ml Labs: Hematology: Recent Labs 05/25/20 0805/26/2045505/27/20619 WBC 4.3 6.0 4.7 RBC 4.25 3.73* 3.57* HGB 12.1* 10.7* 10.2* HCT 39.5* 35.8* 32.5* MCV 92.9 96.0 91.0 MCH 28.5 28.7 28.6 MCHC 30.6 29.9 31.4 RDW 21.7* 21.9* 21.5* PLT 371 382 307 MPV 10.1 10.4 10.4 Chemistry: Recent Labs 05/25/2081405/26/2045505/27/20619 NA 136 135 133* K 3.2* 4.0 4.5 CL 103 104 103 CO2 25 27 27 GLUCOSE 105* 78 110* BUN 11 9 10 CREATININE 0.36* 0.37* 0.28* MG 1.9 1.9 2.1 ANIONGAP 8* 4* 3* LABGLOM >60 >60 >60 GFRAA >60 >60 >60 CALCIUM 7.9* 7.4* 7.6* CAION -- 1.06* -- PHOS 3.1 2.7 2.6 Recent Labs 05/25/20 0815 05/25/20 0805/25/20 1542 05/25/20 2043 05/26/2045505/26/2058 05/26/20181105/27/2022505/27/2061905/27/20 0643 PROT 5.3* -- -- -- 4.6* [...] results found for: POCPH, PHART, PH, POCPCO2, YGY2YWJ, PCO2, POCPO2, PO2ART, PO2, POCHCO3, MFY8GHF, HCO3, NBEA, PBEA, BEART, BE, THGBART, THB, RMK8RJE, TDRL0QMM, R6QTJIYM, O2SAT, FIO2 Lab Results Component Value Date/Time [...] 143/105. HR 96. Patient is asymptomatic. Notified [address] Scott via [employer]. Will continue to monitor. * Telma Herring RCP - 05/26/2020 4:50 PM EST RAPID Covid 19 swab taken from right nare, labeled, placed in red dot bag, and [facility] outside of room for transport to [...] (temporalis) Fluid Accumulation: 1 - Mild Extremities Commissioning Specialist Strength: Not Performed Estimated Daily Nutrient Needs: Energy (kcal): 30-35 kcal/kg --> 1523-2700 kcal/day; Weight Used for Energy Requirements: Admission [...] Admission Body Weight: 129 lb (58.5 kg) [place] Body Weight: 166 lbs; % [place] Body Weight 77.7 % BMI: 18.5 BMI [...] Discharge Planning: Too soon to determine Contact: [phone] * Ady Shine DO - 05/26/2020 9:45 AM EST [facility] Office: [phone] Peña Billings DO, Ady Shine DO, Houston Cooper DO, Darell Krueger DO, Elena Allison MD, Hannah Rodrigues MD, Murphy Ball MD, Shraddha Hamm MD, Hipolito Rodriguez MD, Jannette Albert MD, MD Asher, Flor Donnelly MD, Elayne Cleaning MD, Nate Bone DO, Lopez Garcia MD, Gustavo Morillo MD, Fabricio Mo DO, Rosalio Green MD, Jose Bello DO, Gaurav Lopez MD, MD Sam, Latonia Chavez, MOBILE APPLICATION ARCHITECT, Eliz Esquivel, [facility], Suzy Wu, [facility], Blanche Desouza, [facility],Edgar Staton, [facility], Suyapa Almaguer, MOBILE APPLICATION ARCHITECT, Cathy Ling, MOBILE APPLICATION ARCHITECT, Loan Richardson, [facility], Hever Tomlinson, MOBILE APPLICATION ARCHITECT, Niki Badillo PA-C, Arlyn Villegas, DOMINIQUE, Yuki Orosco, MOBILE APPLICATION ARCHITECT, Deneen Stone, [facility], Leandra Rich, [facility], Lazara Ballesteros, [facility], Sapphire Rivera, [facility] IN-PATIENT SERVICE [facility] Progress Note 05/26/2020 10:03 AM Name: Sabina Espinoza Acct: [id number] Room: [facility]0239-[facility] Day: 3 Admit Date: 05/23/2020 8:14 PM PCP: No primary care provider on file. Code Status: Full Code Subjective: C/C: Abdominal pain Interval History Status: Pain controlled Appetite better Has been tolerating liquids Diet to be progressed to dental soft Tolerating TPN Data Base Updates: Hypoglycemic this a.m. Vamervu28Kuu WBC6.0k/uL RBC3.73Low m/uL Pjkdbifdof49.7Low Calcium, Ion1.06Low Brief History: As documented in [...] (37.2 C) Recent Labs 05/25/20 1056 05/25/20 15405/25/20204205/26/20 0658 POCGLU 102 85 92 65* I/O (24Hr): Intake/Output Summary (Last 24 hours) at 05/26/2020 1003 Last data filed at 05/26/2020 0438 Gross per 24 hour Intake Output 1100 ml Net -1100 ml Labs: Hematology: Recent Labs 05/24/2043705/25/20 0805/26/20 0456 WBC 4.9 4.3 6.0 RBC 4.05* 4.25 3.73* HGB 11.7* 12.1* 10.7* HCT 36.0* 39.5* 35.8* MCV 88.9 92.9 96.0 MCH 28.9 28.5 28.7 MCHC 32.5 30.6 29.9 RDW 22.3* 21.7* 21.9* PLT 368 371 382 MPV 10.8 10.1 10.4 INR 1.2 -- -- Chemistry: Recent Labs 05/24/20154105/25/2081405/26/20 0456 NA 133* 136 135 K 3.1* 3.2* 4.0 CL 101 103 104 CO2 22 25 27 GLUCOSE 50* 105* 78 BUN 15 11 9 CREATININE 0.46* 0.36* 0.37* MG 1.8 1.9 1.9 ANIONGAP 10 8* 4* LABGLOM >60 >60 >60 GFRAA >60 >60 >60 CALCIUM 7.7* 7.9* 7.4* CAION -- -- 1.06* PHOS 3.6 3.1 2.7 Recent Labs 05/24/208 05/24/208 05/25/20 0205 05/25/20 0648 05/25/20 0815 05/25/20 1056 05/25/20 15405/25/20204205/26/20 0456 05/26/20 0658 PROT 5.0* -- -- [...] results found for: POCPH, PHART, PH, POCPCO2, HBT3MUG, PCO2, POCPO2, PO2ART, PO2, POCHCO3, ZKM5LVU, HCO3, NBEA, PBEA, BEART, BE, THGBART, THB, PEH3SKV, NHDW0XUR, Y4VTFLBJ, O2SAT, FIO2 Lab Results Component Value Date/Time [...] Shine DO 05/26/2020 10:03 AM * Sapphire Camarillo DO - 05/26/2020 6:18 AM EST Bariatric Surgery: [...] Shine DO - 05/25/2020 3:41 PM EST [facility] Office: [phone] Peña Billings DO, Ady Shine DO, Houston Cooper DO, Darell Krueger DO, Elena Allison MD, Hannah Rodrigues MD, Murphy Ball MD, Shraddha Hamm MD, Hipolito Rodriguez MD, Jannette Albert MD, MD Asher, Flor Donnelly MD, Elayne Cleaning MD, Nate Bone DO, Lopez Garcia MD, Gustavo Morillo MD, Fabricio Mo DO, Rosalio Green MD, Jose Bello DO, Gaurav Lopez MD, MD Sam, Latonia Chavez, MOBILE APPLICATION ARCHITECT, Eliz Esquivel, MOBILE APPLICATION ARCHITECT, Suzy Wu, MOBILE APPLICATION ARCHITECT, Blanche Desouza, [employer],Edgar Staton, MOBILE APPLICATION ARCHITECT, Suyapa Almaguer, MOBILE APPLICATION ARCHITECT, Cathy Ling, MOBILE APPLICATION ARCHITECT, Loan Richardson, MOBILE APPLICATION ARCHITECT, Hever Tomlinson, MOBILE APPLICATION ARCHITECT, SOURAV Hratley-C, Arlyn Villegas, DOMINIQUE, Yuki Orosco, MOBILE APPLICATION ARCHITECT, Deneen Stone, MOBILE APPLICATION ARCHITECT, Lenadra Rich, MOBILE APPLICATION ARCHITECT, Lazara Ballesteros, MOBILE APPLICATION ARCHITECT, Sapphire Rivera, MOBILE APPLICATION ARCHITECT [facility] IN-PATIENT SERVICE [facility] Progress Note 05/25/2020 4:07 PM Name: Sabina Espinoza Acct: [id number] Room: [facility]9/0239-01 Day: 2 Admit Date: 05/23/2020 8:14 PM PCP: No primary care provider on file. Code Status: Full Code Subjective: C/C: Abdominal pain Interval History Status: More comfortable No nausea vomiting Pain controlled Not sleeping well Passing some flatus Data Base Updates: Waidqxl320Rscs mg/dL FEJ96om/dL CREATININE0.36Low mg/dL Bun/Cre RatioNOT REPORTED Calcium7.9Low mg/dL Zgawlg063hrfr/L Potassium3.2Low Brief History: As documented in the [...] work-up has included: Results for SABINA ESPINOZA Ann ( ) as of 05/25/2020 15:51 Ref. [...] Net 632 ml Labs: Hematology: Recent Labs 05/23/20205005/24/20 0438 05/25/20 0815 WBC 5.7 4.9 4.3 RBC 3.93* 4.05* 4.25 HGB 11.1* 11.7* 12.1* HCT 36.3* 36.0* 39.5* MCV 92.4 88.9 92.9 MCH 28.2 28.9 28.5 MCHC 30.6 32.5 30.6 RDW 22.8* 22.3* 21.7* PLT 416 368 371 MPV 9.9 10.8 10.1 INR -- 1.2 -- Chemistry: Recent Labs 05/24/20 0438 05/24/20 1542 05/25/20 0815 NA 136 133* 136 K 3.5* 3.1* 3.2* CL 106 101 103 CO2 23 22 25 GLUCOSE 62* 50* 105* BUN 17 15 11 CREATININE 0.50* 0.46* 0.36* MG 1.7 1.8 1.9 ANIONGAP 7* 10 8* LABGLOM >60 >60 >60 GFRAA >60 >60 >60 CALCIUM 8.1* 7.7* 7.9* PHOS -- 3.6 3.1 Recent Labs 05/23/20205005/24/20 0438 05/24/20 0438 05/25/20 0205 05/25/20 0648 [...] results found for: POCPH, PHART, PH, POCPCO2, TPX8EGQ, PCO2, POCPO2, PO2ART, PO2, POCHCO3, POV4XDV, HCO3, NBEA, PBEA, BEART, BE, THGBART, THB, RCM4FEB, KMZH2BMW, X7UYFPAK, O2SAT, FIO2 Lab Results Component Value Date/Time [...] Plan: Surgical evaluation and follow-up Dr. Moyer Pain management TPN Correct electrolyte abnormalities Anemia [...] Assistive Devices ADL Assistive Devices: Transfer Tub Bench;Paralegal Secretary;Sock-Aid Hard Assessment Performance deficits / Impairments: Decreased [...] 04/03/2020); and hc picc powerpicc double (04/05/2020). Restrictions Restrictions/Precautions Restrictions/Precautions: [...] Ambulation Assistance: Independent Transfer Assistance: Independent Active Gasket Notcher: No Patient's Gasket Notcher Info: Parents drive Occupation: Unemployed Type of occupation: Applying for disability Leisure & Hobbies: [place] [employer] [facility] Objective Vision: Impaired(Pt doesn't wear his glasses) [...] 4+/5 Plan Plan Times per week: 3-5x AM-[facility] Score -[facility] Inpatient Daily Activity Raw Score: 20 (05/25/201326) AM-[facility] Inpatient ADL T-Scale Score : 42.03 (05/25/201326) [...] Minutes: 39 Minutes Niki Payne OTR/L * Keshia Don RD, LD - 05/25/2020 1:33 PM [...] Temples (temporalis) Fluid Accumulation: Unable to assess Commissioning Specialist Strength: Not Performed Estimated Daily Nutrient Needs: Energy (kcal): 30-35 kcal/kg --> 5590-8929 kcal/day; Weight Used for Energy Requirements: Admission [...] Current Body Weight: 129 lb (58.5 kg) [place] Body Weight: 166 lbs; % [place] Body Weight 77.7 % BMI: 18.5 BMI [...] Focused Physical Findings, Skin, Weight Contact: * Chan Moss PTA - 05/25/2020 12:12 PM EST Physical Therapy Facility/Department: [address] ORTHO/MED SURG Daily Treatment Note NAME: [...] stomach pain General Comment Comments: 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 While contract technical writer kneeled down to adjust pt's sock [...] 38 Timed Code Treatment Minutes: 38 Minutes Chan Moss PTA * Saige Hernandez MD - [...] Intake/Output Summary (Last 24 hours) at 05/25/2020 0263 Last data filed at 05/25/2020 0623 Gross [...] DO - 05/24/2020 3:31 PM EST Sabina Juarez Danuta was evaluated today and a DME order was entered for a wheeled walker with seat becausehe requires this to successfully complete daily living tasks of eating, bathing, toileting, personal cares and ambulating. A wheeled walker with seat is necessary due to the patient's unsteady gait, upper body weakness, inability to draft roller picker and ambulation device, ambulating only short distances [...] expressed an unwillingness to use the wheelchair. 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 and consuming bland foods including mash potatoes, [...] Temples (temporalis) Fluid Accumulation: Unable to assess Commissioning Specialist Strength: Not Performed Estimated Daily Nutrient Needs: Energy (kcal): 30-35 kcal/kg --> 8182-4912 kcal/day; Weight Used for Energy Requirements: Admission [...] Current Body Weight: 129 lb (58.5 kg) [place] Body Weight: 166 lbs; % [place] Body Weight 77.7 % BMI: 18.5 Nutrition [...] Discharge Planning: Too soon to determine Contact: [phone] * Chan Moreno, PT - 05/24/2020 12:49 PM EST Physical Therapy Facility/Department: [address] ORTHO/MED SURG Initial Assessment NAME: Sabina [...] Ambulation Assistance: Independent Transfer Assistance: Independent Active Gasket Notcher: No Patient's Gasket Notcher Info: Parents drive Type of occupation: Applying [...] within reach G-Code OutComes Score AM-PAC Score AM-PAC Inpatient Mobility Raw Score : 19 (05/24/201242) [...] In 0745 Time Out 0809 Minutes 24 Chan Moreno, PT * Jose Bello DO - 05/24/2020 8:30 AM EST [facility] Office: [phone] Peña Billings DO, Ady Shine DO, Houston [...] MD Sam, Latonia Chavez CNP, Eliz Esquivel MOBILE APPLICATION ARCHITECT, Suzy Wu, MOBILE APPLICATION ARCHITECT, Blanche Desouza, AZURE DEVELOPER,Edgar Staton, MOBILE APPLICATION ARCHITECT, Suyapa Almaguer MOBILE APPLICATION ARCHITECT, Cathy Ling, MOBILE APPLICATION ARCHITECT, Loan Richardson MOBILE APPLICATION ARCHITECT, Hever Tomlinson CNP, Niki Badillo PA-C, Arlyn Villegas, DOMINIQUE, Yuki Orosco CNP, Deneen Stone CNP, Leandra Rich CNP, Lazara Ballesteros CNP, Sapphire Rivera CNP [facility] IN-PATIENT SERVICE [facility] Progress Note 05/24/2020 8:52 AM Name: Sabina Espinoza Acct: [id number] Room: 0239/0239-01 IP Day: 1 Admit Date: 05/23/2020 8:14 PM [...] output data in the 24 hours ending 05/24/2052 Labs: Hematology: Recent Labs 05/23/20205005/24/20437 WBC 5.7 4.9 RBC 3.93* 4.05* HGB 11.1* 11.7* HCT 36.3* 36.0* MCV 92.4 88.9 MCH 28.2 28.9 MCHC 30.6 32.5 RDW 22.8* 22.3* PLT 416 368 MPV 9.9 10.8 INR -- 1.2 Chemistry: Recent Labs 05/23/20205005/24/20437 NA 136 136 K 3.5* 3.5* CL [...] results found for: POCPH, PHART, PH, POCPCO2, ZQO8BSS, PCO2, POCPO2, PO2ART, PO2, POCHCO3, XYI7EXD, HCO3, NBEA, PBEA, BEART, BE, THGBART, THB, VPI5ASS, QVHH5QKZ, O6OEAZLG, O2SAT, FIO2 Lab Results Component Value Date/Time [...] POA * (Principal) SBO (small bowel obstruction) ([facility]) 05/24/2020 Yes Severe protein-calorie malnutrition ([place]: less than 60% of standard weight) ([facility]) 05/24/2020 Yes Essential hypertension 05/23/2020 Yes Intra-abdominal adhesions s/p lysis 05/24/2020 Yes Bowel obstruction ([facility]) 05/24/2020 Yes History of Lauren-en-Y gastric bypass 05/24/2020 Yes Acute hypokalemia 05/24/2020 Yes Plan: 1. Small Bowel obstruction: 2/2 adhesions, pt with [...] PPI 7. DVT ppx 8. PT/OT Jose Belol DO 05/24/2020 8:52 AM * Saige Hernandez [...] Cooper DO - 04/12/2020 7:49 AM EST [facility] Office: [phone] Peña Billings DO, Ady Shine DO, Houston [...] MD Sam, Latonia Chavez CNP, Eliz Esquivel MOBILE APPLICATION ARCHITECT, Suzy Wu, MOBILE APPLICATION ARCHITECT, Blanche Desouza, [employer]URE DEVEL[employer],Edgar Staton, MOBILE APPLICATION ARCHITECT, Suyapa Almaguer, MOBILE APPLICATION ARCHITECT, Cathy Ling MOBILE APPLICATION ARCHITECT, Loan Richardson, MOBILE APPLICATION ARCHITECT, Hever Tomlinson CNP, Niki Badillo PA-C, Arlyn Villegas, DOMINIQUE, Yuki Orosco, MOBILE APPLICATION ARCHITECT, Deneen Stone, MOBILE APPLICATION ARCHITECT, Leandra Rich, MOBILE APPLICATION ARCHITECT, Lazara Ballesteros, MOBILE APPLICATION ARCHITECT, Sapphire Rivera, MOBILE APPLICATION ARCHITECT [facility] IN-PATIENT SERVICE [facility] Progress Note 04/12/2020 7:49 AM Name: Sabina Espinoza Acct: [id number] Room: 0239/0239-01 Day: 3 Admit Date: 04/09/2020 [...] gastric bypass that was previously evaluated at [facility] for small bowel obstruction. On 30 March [...] and presented to the emergency room in [place]. Ultimately was transferred here for further evaluation. Is been reevaluated by florida damon and undergoing small bowel follow-through today [...] ml Labs: Hematology: Recent Labs 04/10/20 0441 04/11/20 1123 04/12/20 0544 WBC 7.4 8.8 8.0 RBC 4.24 4.51 4.36 HGB 9.9* 10.5* 10.4* HCT 33.4* 36.0* 35.6* MCV 78.8* 79.8* 81.7* MCH 23.3* 23.3* 23.9* MCHC 29.6 29.2 29.2 RDW 25.2* 25.4* 25.5* PLT 637* 779* 770* MPV 9.8 9.5 9.2 Chemistry: Recent Labs 04/10/20 0441 04/11/20 1123 [...] results found for: POCPH, PHART, PH, POCPCO2, HLC9ETB, PCO2, POCPO2, PO2ART, PO2, POCHCO3, UWI5EVW, HCO3, NBEA, PBEA, BEART, BE, THGBART, THB, EKQ9TVF, PRQJ1GFN, U4CZCRBZ, O2SAT, FIO2 Lab Results Component Value Date/Time [...] DO 04/12/2020 7:49 AM * Juanjose Santos, - 04/12/2020 7:32 AM EST General Surgery: [...] Cooper DO - 04/11/2020 6:30 AM EST [facility] Office: [phone] Peña Billings DO, Ady Shine DO, Houston Cooper DO, Darell Krueger DO, Elena Allison MD, Hannah Rodrigues MD, Murphy Ball MD, hSraddha Hamm MD, Hipolito Rodriguez MD, Jannette Albert MD, MD Asher, Flro Donnelly MD, Elayne Cleaning MD, Nate Bone DO, Lopez Garcia MD, Gustavo Morillo MD, Fabricio Mo DO, Rosalio Green MD, Jose Bello DO, Gaurav Lopez MD, MD Sam, Latonia Chavez, MOBILE APPLICATION ARCHITECT, Eliz Esquivel, MOBILE APPLICATION ARCHITECT, Suzy Wu, MOBILE APPLICATION ARCHITECT, Blanche Desouza, [facility],Edgar Staton, MOBILE APPLICATION ARCHITECT, Suyapa Almaguer, MOBILE APPLICATION ARCHITECT, Cathy Ling, MOBILE APPLICATION ARCHITECT, Loan Richardson, MOBILE APPLICATION ARCHITECT, Hever Tomlinson, MOBILE APPLICATION ARCHITECT, SARAH HartleyC, Arlyn Villegas, DOMINIQUE, Yuki Orosco, MOBILE APPLICATION ARCHITECT, Deneen Stone, MOBILE APPLICATION ARCHITECT, Leandra Rich, MOBILE APPLICATION ARCHITECT, Lazara Ballesteros, MOBILE APPLICATION ARCHITECT, Sapphire Rivera, MOBILE APPLICATION ARCHITECT [facility] IN-PATIENT SERVICE [facility] Progress Note 04/11/2020 6:30 AM Name: Sabina Espinoza Acct: [id number] Room: 0239/0239-01 Day: 2 Admit Date: 04/09/2020 [...] gastric bypass that was previously evaluated at [facility] for small bowel obstruction. On 30 March [...] and presented to the emergency room in [place]. Ultimately was transferred here for further evaluation. Is been reevaluated by flor[place] damon and undergoing small bowel follow-through today. [...] Recent Labs 04/10/20 1045 04/10/20 1134 04/10/20 16304/10/20 1935 POCGLU 44* 108 90 81 I/O [...] 0959 04/10/20 1045 04/10/20 1134 04/10/20 1631 04/10/20 1935 POCGLU 54* 44* 108 90 81 ABG:No results found for: POCPH, PHART, PH, POCPCO2, HJQ8SBK, PCO2, POCPO2, PO2ART, PO2, POCHCO3, FBG0MQB, HCO3, NBEA, PBEA, BEART, BE, THGBART, THB, AND3HNN, VWAW5OEO, U7JJTLMY, O2SAT, FIO2 Lab Results Component Value Date/Time [...] and orders as documented by the surgical technologist and any pertinent changes or updates have [...] Cooper DO - 04/10/2020 7:15 AM EST [facility] Office: [phone] Peña Billings DO, Ady Shine DO, Houston Cooper DO, Darell Krueger DO, Elena Allison MD, Hannah Rodrigues MD, Murphy Ball MD, Shraddha Hamm MD, Hipolito Rodriguez MD, Jannette Albert MD, MD Asher, Flor Donnelly MD, Elayne Cleaning MD, Nate Bone DO, Lopez Garcia MD, Gustavo Morillo MD, Fabricio Mo DO, Rosalio Green MD, Jose Bello DO, Gaurav Lopez MD, MD Sam, Latonia Chavez, MOBILE APPLICATION ARCHITECT, Eliz Esquivel, MOBILE APPLICATION ARCHITECT, Suzy Wu, MOBILE APPLICATION ARCHITECT, Blanche Desouza, AZURE DEVELOPER,Edgar Staton, MOBILE APPLICATION ARCHITECT, Suyapa Almaguer, MOBILE APPLICATION ARCHITECT, Cathy Ling, MOBILE APPLICATION ARCHITECT, Loan Richardson, MOBILE APPLICATION ARCHITECT, Hever Tomlinson, MOBILE APPLICATION ARCHITECT, Niki Badillo PA-C, Arlyn Villegas, DOMINIQUE, Yuki Orosco, MOBILE APPLICATION ARCHITECT, Deneen Stone, MOBILE APPLICATION ARCHITECT, Leandra Rich, MOBILE APPLICATION ARCHITECT, Lazara Ballesteros CNP, Sapphire Rivera, MOBILE APPLICATION ARCHITECT [facility] IN-PATIENT SERVICE [facility] Progress Note 04/10/2020 7:15 AM Name: Sabina Espinoza Acct: [id number] Room: [facility]/0239-[facility] Day: 1 Admit Date: 04/09/2020 11:02 PM [...] gastric bypass that was previously evaluated at [facility] for small bowel obstruction. On 30 March [...] and presented to the emergency room in [place]. Ultimately was transferred here for further evaluation. Is been reevaluated by flor[place] damon and undergoing small bowel follow-through today. [...] 28.88 kg/m No data recorded. Recent Labs 04/08/20 0227 POCGLU 88 I/O (24Hr): No intake or output data in the 24 hours ending 04/10/20 0715 Labs: Hematology: Recent Labs 04/08/20 0627 04/10/20 0441 WBC 6.5 7.4 RBC 4.09* 4.24 HGB 9.5* 9.9* HCT 35.4* 33.4* MCV 86.6 78.8* MCH 23.2* 23.3* MCHC 26.8* 29.6 RDW 25.0* 25.2* PLT 430 637* MPV 10.1 9.8 Chemistry: Recent Labs 04/08/20 0627 04/10/20 0441 NA 135 136 K 3.6* 4.0 CL 106 106 CO2 20 22 GLUCOSE 86 57* BUN 10 12 CREATININE 0.31* 0.33* MG 2.4 -- ANIONGAP 9 8* LABGLOM >60 >60 GFRAA >60 >60 CALCIUM 7.3* 7.5* PHOS 1.8* -- Recent Labs 04/08/20 0227 POCGLU 88 ABG:No results found for: POCPH, PHART, PH, POCPCO2, NBS2NGZ, PCO2, POCPO2, PO2ART, PO2, POCHCO3, RCZ7WWL, HCO3, NBEA, PBEA, BEART, BE, THGBART, THB, YRO6WED, WEBH1IYC, H1REFPUI, O2SAT, FIO2 Lab Results Component Value Date/Time [...] 7:15 AM documented in this encounter* Juanita Espinal, RN - 07/08/2020 9:30 AM EDT Discharge [...] Documents on File Type Date Recorded 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 Expl 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 Advance Directive(s) 08/02/2021 8:37 AM Documents on File Type Date Recorded 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 Expl anation Advance Directive(s) 08/02/2021 8:37 AM Documents on File Type Date Recorded 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 Expl anation Advance Directive(s) 09/16/2021 11:04 AM Advance Directive(s) 08/02/2021 8:37 AM Documents on File Type Date Recorded 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 Expl anation Advance Directive(s) 09/16/2021 11:04 AM [...] infusion 30 mL/hr, INTRAVENOUS, CONTINUOUS, Starting on 08/08/21 at 1230, Until Sun08/09/21 at 0423, Preprocedure [...] Referral Specialty Diagnoses / Procedures Referred By Contac t Referred To Contact Diagnoses Gastrojejunal ulcer Epigastric pain Preoperative examination Procedures IN PERSON CONSULT TO PACC Alysa Asencio MD [address] [place] [address] Referral ID Status Reason Start Date Expiration Date Visits Requested Visits Authorized [id number] Ref Not Required PCP Requested Referral 08/29/2021 11/27/2021 1 1 Specialty Diagnoses / Procedures Referred By Contac t Referred To Contact [facility] Diagnoses Gastrojejunal ulcer Epigastric pain Preoperative examination Procedures ECG COMPLETE ECG ROUTINE ECG W/LEAST 12 LDS W/I&R Alysa Asencio MD [address] [place] [address] [facility] [address] [address] Referral ID Status Reason Start Date Expiration Date Visits Requested Visits Authorized [id number] Pending Review Auto-Generat ed Referral 08/29/2021 08/29/2022 1 1 Specialty Diagnoses / Procedures Referred By Contac t Referred To Contact Dermatology Diagnoses Squamous cell carcinoma skin of abdomen Procedures CONSULT TO DERMATOLOGY Alysa Asencio MD [address] [place] [address] Referral ID Status Reason Start Date Expiration Date Visits Requested Visits Authorized [id number] Ref Not Required PCP Requested Referral 01/20/2022 01/20/2023 1 1 Specialty Diagnoses / Procedures Referred By Contac t Referred To Contact Oncology Diagnoses Skin cancer Procedures CONSULT TO ONCOLOGY OFFICE/OUTPATIENT [facility] 60-74 MINUTES Sabina Bean PA-C [address] [place] [address] Referral ID Status Reason Start Date Expiration Date Visits Requested Visits Authorized [id number] Authorized PCP Requested Referral 10/13/2022 10/13/2023 1 1 Specialty Diagnoses / Procedures Referred By Contac t Referred To Contact CT IMAGING Diagnoses Skin cancer Procedures CT CHEST W IVCON DIAGNOSTIC COMPUTED TOMOGRAPHY THORAX W/CONTRAST Yina Gerardo MD [address] [place] [address] Ct Imaging Referral ID Status Reason Start Date Expiration Date Visits Requested Visits Authorized [id number] Additional Clinical Info Needed Auto-Generat ed Referral 10/26/2022 11/24/2023 1 1 Specialty Diagnoses / Procedures Referred By Contac t Referred To Contact CT IMAGING Diagnoses Skin cancer Infection in abdomen (HCC) Procedures CT ABD/PEL W IVCON CT ABD & PELVIS W/CONTRAST Yina Gerarod MD [address] [place] [address] Ct Imaging Referral ID Status Reason Start Date Expiration Date Visits Requested Visits Authorized [id number] Additional Clinical Info Needed Auto-Generat ed Referral [...] yrs ago abd pain vomiting Jose Bello I DO [address] [place], [place] [employer] Status Reason Specialty Diagnoses / Procedures Referre d By Contact Referred To Contact Diagnoses Bowel obstruction (HCC) bowel obstruction Jose Bello I DO [address] [place], [place] [employer] Status Reason Specialty Diagnoses / Procedures Re ferred By Contact Referred To Contact Diagnoses 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 Procedures [place] ESOPHAGOGASTRODUODENOSCOPY TRANSORAL DIAGNOSTIC EGD ESOPHAGOGASTRODUODENOSCOPY Lalo Lambert MD [address] [facility] [address] [place] [address] [facility] Status Reason Specialty Diagnoses / Procedures Referre d By Contact Referred To Contact Diagnoses Small bowel obstruction (HCC) bowel obstruction Houston Cooper DO [address] [facility], [address] [place] [address] [facility] [employer] Status Reason Specialty Diagnoses / Procedures Re ferred By Contact Referred To Contact Diagnoses Other postprocedural complications and disorders of digestive system GASTROJEJUNAL ANASTOMATIC STRICTURE Procedures [place] EGD DILATION GASTRIC/DUODENAL STRICTURE EGD ESOPHAGOGASTRODUODENOSCOPY DILATATION Lalo Lambert MD [facility] [address] [place] [address] [facility] Status Reason Specialty Diagnoses / Procedures Re ferred By Contact Referred To Contact Diagnoses Other postprocedural complications and disorders of digestive system GASTROJEJUNAL ANASTOMOTIC STRICTURE Procedures AZ EGD DILATION GASTRIC/DUODENAL STRICTURE EGD ESOPHAGOGASTRODUODENOSCOPY DILATATION Lalo Lambert MD [facility] [address] [place] [address] [facility] Status Reason Specialty Diagnoses / Procedures Re ferred By Contact Referred To Contact Diagnoses Gastrojejunal anastomotic leak GASTROJEJUNAL ANASTOMOTIC STRICTURE Procedures [place] ESOPHAGOGASTRODUODENOSCOPY TRANSORAL DIAGNOSTIC EGD ESOPHAGOGASTRODUODENOSCOPY WITH DILITATION Lalo Lambert MD [address] [facility] [address] [place] [address] [facility] Status Reason Specialty Diagnoses / Procedures Re ferred By Contact Referred To Contact Diagnoses Gastrojejunostomy tube status (HCC) ANASTOMATIC STENOSIS GASTROJEJUNOSTOMY Procedures [place] ESOPHAGOGASTRODUODENOSCOPY TRANSORAL DIAGNOSTIC EGD ESOPHAGOGASTRODUODENOSCOPY [place] [address] [place] [address] [address] [place] [address] [facility] Status Reason Specialty Diagnoses / Procedures Re ferred By Contact Referred To Contact Diagnoses Biliary anastomotic stenosis ANASTOMOTIC STENOSIS OF GASTROJEJUNOSTOMY Procedures [place] GI ENDOSCOPIC ULTRASOUND ENDOSCOPIC ULTRASOUND, EGD WITH DILATION Lalo Lambert MD [address] [place] [address] [address] [place] [address] [facility] Status Reason Specialty Diagnoses / Procedures Re ferred By Contact Referred To Contact Diagnoses 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 GASTROJEJUNAL STRICTURE, ANASTOMOTIC STRICTURE Procedures [place] ESOPHAGOGASTRODUODENOSCOPY TRANSORAL DIAGNOSTIC EGD ESOPHAGOGASTRODUODENOSCOPY, STENT REMOVAL Lalo Lambert MD [address] [place] [address] [address] [place] [address] [facility] Status Reason Specialty Diagnoses / Procedures Re ferred By Contact Referred To Contact Diagnoses Other postprocedural complications and disorders of digestive system ANASTAMOTIC STENOSIS GASTROJEJUNOSTOMY Procedures [place] ESOPHAGOGASTRODUODENOSCOPY TRANSORAL DIAGNOSTIC EGD ESOPHAGOGASTRODUODENOSCOPY WITH STENT PLACEMENT Lalo Lambert MD [address] [place] [address] [address] [place] [address] [facility] Status Reason Specialty Diagnoses / Procedures Re ferred By Contact Referred To Contact Diagnoses Stenosis of surgical anastomosis site of digestive tract ANASTOMATIC STENOSIS OF GASTRO JEJUNOSTOMY Procedures [place] ESOPHAGOSCOPY INTRA/TRANSMURAL NEEDLE ASPIRAT/BX EGD ESOPHAGOGASTRODUODENOSCOPY [place] [address] [place] [address] [facility] [address] [place] [address] [facility] Reason Comments New Patient Reason Comments [...] Reason Comments Returning Patient's Call Reason Comments Store Shopper - Other Reason Comments Patient Question Reason Comments Results Reason Comments Orders Patient Update Reason Comments Consult Specialty Diagnoses / Procedures Referred By Contac t Referred To Contact Oncology Diagnoses Skin cancer Procedures CONSULT TO ONCOLOGY OFFICE/OUTPATIENT NEW HIGH MDM 60-74 MINUTES Sabina Bean PA-C [address] [place] [address] Referral ID Status Reason Start Date Expiration Date V isits Requested Visits Authorized [id number] Closed PCP Requested Referral 10/13/2022 10/13/2023 1 1 Specialty Diagnoses / Procedures Referred By Contac t Referred To Contact Diagnoses Iron deficiency anemia secondary to inadequate dietary iron intake Procedures IRON SUCROSE INJECTION PER 1 MG 100mg once a week x4 Yina Gerardo MD [address] [place] [address] [facility] [place] [address] [address] [place] [id number] Referral ID Status Reason Start Date Expiration Date V isits Requested Visits Authorized [id number] Authorized 11/15/2022 04/15/2023 99 99 Reason Comments Results Store Shopper - Other Tumor board dis cussion Ordered [...] 0851 (New Bag - Prov ider: Veronica White RN)1110 (Stopped - Provider: Veronica White RN) Continuous Medication Order 09/28/2020 09/29/2020 09/30/2020 0.9 % sodium chloride infusion Intravenous, at 30 mL/hr, CONTINUOUS, Starting on Zenaida 09/30/20 at 0745 0721 (New Bag - Prov ider: Smiley Perry RN)0721 (Paused - Provider: AQUILES Lundberg CRNA - Comment: Switch to gravity)0722 (New Bag - Provider: AQUILES Lundberg CRNA)0852 (New Bag - Provider: AQUILES Lundberg CRNA)0917 (Anesthesia Volume Adjustment - Provider: AQUILES Lundberg [...] Volume Adjustment - Provider: Sherry Moore APRN - PRINTED CIRCUIT BOARD LAYOUT DESIGNER) Continuous Medication Order 11/23/2020 11/24/2020 11/25/2020 0.9 % sodium chloride infusion Intravenous, at 30 mL/hr, CONTINUOUS, Starting on Zenaida 11/25/20 at 0800 0753 (New Bag - Prov ider: Caroline Hwang RN)0934 (NoRateChange - Provider: Lalo Lambert MD)0956 (Paused - Provider: Emilie Ballesteros APRN - PRINTED CIRCUIT [employer]ARD LAYOUT DESIGNER - Comment: Switch to gravity)0957 (Restarted - Provider: Emilie Ballesteros APRN PRINTED CIRCUIT BOARD LAYOUT DESIGNER)1029 (Stopped - Provider: Caroline Hwang RN) Scheduled [...] [place]) 0941 (Given - Provider: Juan Barksdale, RN)2100 (Due) enoxaparin (LOVENOX) injection 40 mg 40 mg, SubCUTAneous, DAILY, First dose on Zenaida 06/30/21 at 0900 0810 (Given - Provider: Jane Epps RN) 0842 (Given - Provider: Delmy Marques RN) 0941 (Given - Provider: Juan Barksdale, RN) lidocaine PF 1 % injection 5 mL [...] Marques RN)2211 (Given - Provider: Sapphire Ventura) 0616 (Given - Provider: Sapphire Ventura)1329 (Given - Provider: Juan Barksdale RN)2145 (Due) sodium chloride flush 0.9 % injection [...] not met) 0943 (Given - Provider: Juan Barksdale RN)2100 (Due) sodium chloride flush 0.9 % injection [...] [place]) 0943 (Given - Provider: Juan Barksdale, RN)2100 (Due) Continuous Medication Order 07/02/2021 07/03/2021 07/04/2021 [...] over 24 Hours, CONTINUOUS TPN, Starting on 07/03/21 at 1800, For 24 hours 1736 (New Bag - Provider: Delmy Marques RN)1738 (Rate/Dose Verify - Provider: Sapphire Ventura) 0157 (Rate/Dose Verify - Provider: Sapphire Ventura)0617 (Rate/Dose Verify - Provider: Sapphire [place])1506 (Stopped - Provider: Juan Barksdale, RN) PRN Medication Order 07/02/2021 07/03/2021 07/04/2021 [...] mg, Oral, NIGHTLY PRN, Sleep, Starting on Bullard 07/03/21 at 2100 2211 (Given - Provider: [...] to tolerate oral tablet. K Lab R [facility] ement Action 3.1 to 3.5 40 mEq [...] section and content) DATE CREATED AUTHOR 09/07/2020 [facility] DATE CREATED AUTHOR AUTHOR'S ORGANIZ ATION 07/13/2021 [facility] DATE CREATED AUTHOR AUTHOR'S ORGANIZ ATION 08/27/2021 [facility] DATE CREATED AUTHOR AUTHOR'S ORGANIZ ATION 08/08/2022 [facility] DATE CREATED AUTHOR AUTHOR'S ORGANIZ ATION 05/26/2023 [facility] DATE CREATED AUTHOR AUTHOR'S ORGANIZ ATION 07/04/2023 [facility] Care Teams (unrecognized sec tion and content) Software Support Representative Relationship Specialty Start Date End Date Salvatore Gomez MD [address] [place] [address] PCP - General 06/22/20 Software Support Representative Relationship Specialty Start Date End Date Salvatore Gomez MD [address] [place] [address] PCP - General 06/22/20 Software Support Representative Relationship Specialty Start Date End Date Salvatore Camargo MD [address] [place] [address] PCP - General Internal Medicine 09/16/21 Software Support Representative Relationship Specialty Start Date End Date Salvatore Camargo MD [address] [facility] [place] [address] PCP - General Internal Medicine 09/16/21 Software Support Representative Relationship Specialty Start Date End Date Salvatore Camargo MD [address] [place] [address] PCP - General Internal Medicine 09/16/21 Software Support Representative Relationship Specialty Start Date End Date Salvatore Camargo MD [address] [place] [address] PCP - General Internal Medicine 09/16/21 Software Support Representative Relationship Specialty Start Date End Date Salvatore Camargo MD [address] [place] [facility] [address] PCP - General Internal Medicine 09/16/21 Software Support Representative Relationship Specialty Start Date End Date Salvatore Camargo MD [address] [facility] [place] [address] PCP - General Internal Medicine 09/16/21 Software Support Representative Relationship Specialty Start Date End Date Salvatore Camargo MD [address] [facility] [facility] [place] [address] PCP - General Internal Medicine 09/16/21 Software Support Representative Relationship Specialty Start Date End Date Salvatore Camargo MD [address] [facility] [facility] [place] [address] PCP - General Internal Medicine 09/16/21 Software Support Representative Relationship Specialty Start Date End Date Salvatore Camargo MD [address] [place] [facility] [place] [address] PCP - General Internal Medicine 09/16/21 Software Support Representative Relationship Specialty Start Date End Date Salvatore Camargo MD [address] [place] [facility] [address] PCP - General Internal Medicine 09/16/21 Software Support Representative Relationship Specialty Start Date End Date Salvatore Camargo MD [address] [place] [facility] [address] PCP - General Internal Medicine 09/16/21 Software Support Representative Relationship Specialty Start Date End Date Salvatore Camargo MD [address] [place] [address] PCP - General Internal Medicine 09/16/21 Software Support Representative Relationship Specialty Start Date End Date Salvatore Camargo MD [address] [place] [address] PCP - General Internal Medicine 09/16/21 Software Support Representative Relationship Specialty Start Date End Date Salvatore Camargo MD PCP - General Internal Medicine 09/16/21 Software Support Representative Relationship Specialty Start Date End Date Salvatore Camargo MD PCP - General Internal Medicine 09/16/21 Software Support Representative Relationship Specialty Start Date End Date Salvatore Camargo MD PCP - General Internal Medicine 09/16/21 Software Support Representative Relationship Specialty Start Date End Date Salvatore Camargo MD PCP - General Internal Medicine 09/16/21 Arlene Carrillo, RN Specialty Store Shopper Hematology/Oncology 11/03/22 Software Support Representative Relationship Specialty Start Date End Date Salvatore Camargo MD PCP - General Internal Medicine 09/16/21 Arlene Carrillo, RN Specialty Store Shopper Hematology/Oncology 11/03/22 Software Support Representative Relationship Specialty Start Date End Date Salvatore Camargo MD PCP - General Internal Medicine 09/16/21 Arlene Carrillo, RN Specialty Store Shopper Hematology/Oncology 11/03/22 Software Support Representative Relationship Specialty Start Date End Date Salvatore Camargo MD PCP - General Internal Medicine 09/16/21 Arlene Carrillo, RN Specialty Store Shopper Hematology/Oncology 11/03/22 Source Comments (unrecognize d section and content) In the event this informatio n is protected by the [facility] Confidentiality of Alcohol and Drug Abuse Patient Records regulations: The Federal rules restrict any use of the information to criminally investigate or prosecute any alcohol or drug abuse patient.[facility] the event this information is protected by the Federal Confidentiality of Alcohol and Drug Abuse Patient Records regulations: The Federal rules restrict any use of the information to criminally investigate or prosecute any alcohol or drug abuse patient.[facility] the event this information is protected by the Federal Confidentiality of Alcohol and Drug Abuse Patient Records regulations: The Federal rules restrict any use of the information to criminally investigate or prosecute any alcohol or drug abuse patient.[facility] the event this information is protected by the Federal Confidentiality of Alcohol and Drug Abuse Patient Records regulations: The Federal rules restrict any use of the information to criminally investigate or prosecute any alcohol or drug abuse patient.[facility] the event this information is protected by the Federal Confidentiality of Alcohol and Drug Abuse Patient Records regulations: The Federal rules restrict any use of the information to criminally investigate or prosecute any alcohol or drug abuse patient.[facility] the event this information is protected by the Federal Confidentiality of Alcohol and Drug Abuse Patient Records regulations: The Federal rules restrict any use of the information to criminally investigate or prosecute any alcohol or drug abuse patient.[facility] the event this information is protected by the Federal Confidentiality of Alcohol and Drug Abuse Patient Records regulations: The Federal rules restrict any use of the information to criminally investigate or prosecute any alcohol or drug abuse patient.[facility] the event this information is protected by the Federal Confidentiality of Alcohol and Drug Abuse Patient Records regulations: The Federal rules restrict any use of the information to criminally investigate or prosecute any alcohol or drug abuse patient.[facility] the event this information is protected by the Federal Confidentiality of Alcohol and Drug Abuse Patient Records regulations: The Federal rules restrict any use of the information to criminally investigate or prosecute any alcohol or drug abuse patient.[facility] the event this information is protected by the Federal Confidentiality of Alcohol and Drug Abuse Patient Records regulations: The Federal rules restrict any use of the information to criminally investigate or prosecute any alcohol or drug abuse patient.[facility] the event this information is protected by the Federal Confidentiality of Alcohol and Drug Abuse Patient Records regulations: The Federal rules restrict any use of the information to criminally investigate or prosecute any alcohol or drug abuse patient.[facility] the event this information is protected by the Federal Confidentiality of Alcohol and Drug Abuse Patient Records regulations: The Federal rules restrict any use of the information to criminally investigate or prosecute any alcohol or drug abuse patient.[facility] the event this information is protected by the Federal Confidentiality of Alcohol and Drug Abuse Patient Records regulations: The Federal rules restrict any use of the information to criminally investigate or prosecute any alcohol or drug abuse patient.[facility] the event this information is protected by the Federal Confidentiality of Alcohol and Drug Abuse Patient Records regulations: The Federal rules restrict any use of the information to criminally investigate or prosecute any alcohol or drug abuse patient.[facility] the event this information is protected by the Federal Confidentiality of Alcohol and Drug Abuse Patient Records regulations: The Federal rules restrict any use of the information to criminally investigate or prosecute any alcohol or drug abuse patient.[facility] the event this information is protected by the Federal Confidentiality of Alcohol and Drug Abuse Patient Records regulations: The Federal rules restrict any use of the information to criminally investigate or prosecute any alcohol or drug abuse patient.[facility] the event this information is protected by the Federal Confidentiality of Alcohol and Drug Abuse Patient Records regulations: The Federal rules restrict any use of the information to criminally investigate or prosecute any alcohol or drug abuse patient.[facility] the event this information is protected by the Federal Confidentiality of Alcohol and Drug Abuse Patient Records regulations: The Federal rules restrict any use of the information to criminally investigate or prosecute any alcohol or drug abuse patient.[facility] the event this information is protected by the Federal Confidentiality of Alcohol and Drug Abuse Patient Records regulations: The Federal rules restrict any use of the information to criminally investigate or prosecute any alcohol or drug abuse patient.[facility] the event this information is protected by the Federal Confidentiality of Alcohol and Drug Abuse Patient Records regulations: The Federal rules restrict any use of the information to criminally investigate or prosecute any alcohol or drug abuse patient.[facility] the event this information is protected by the Federal Confidentiality of Alcohol and Drug Abuse Patient Records regulations: The Federal rules restrict any use of the information to criminally investigate or prosecute any alcohol or drug abuse patient.[facility] the event this information is protected by the Federal Confidentiality of Alcohol and Drug Abuse Patient Records regulations: The Federal rules restrict any use of the information to criminally investigate or prosecute any alcohol or drug abuse patient.[facility] the event this information is protected by the Federal Confidentiality of Alcohol and Drug Abuse Patient Records regulations: The Federal rules restrict any use of the information to criminally investigate or prosecute any alcohol or drug abuse patient.[facility] the event this information is protected by the Federal Confidentiality of Alcohol and Drug Abuse Patient Records regulations: The Federal rules restrict any use of the information to criminally investigate or prosecute any alcohol or drug abuse patient.[facility] the event this information is protected by the Federal Confidentiality of Alcohol and Drug Abuse Patient Records regulations: The Federal rules restrict any use of the information to criminally investigate or prosecute any alcohol or drug abuse patient.[facility] the event this information is protected by the Federal Confidentiality of Alcohol and Drug Abuse Patient Records regulations: The Federal rules restrict any use of the information to criminally investigate or prosecute any alcohol or drug abuse patient.[facility] the event this information is protected by the Federal Confidentiality of Alcohol and Drug Abuse Patient Records regulations: The Federal rules restrict any use of the information to criminally investigate or prosecute any alcohol or drug abuse patient.[facility] the event this information is protected by the Federal Confidentiality of Alcohol and Drug Abuse Patient Records regulations: The Federal rules restrict any use of the information to criminally investigate or prosecute any alcohol or drug abuse patient.[facility] the event this information is protected by the Federal Confidentiality of Alcohol and Drug Abuse Patient Records regulations: The Federal rules restrict any use of the information to criminally investigate or prosecute any alcohol or drug abuse patient.[facility] the event this information is protected by the Federal Confidentiality of Alcohol and Drug Abuse Patient Records regulations: The Federal rules restrict any use of the information to criminally investigate or prosecute any alcohol or drug abuse patient.[facility] the event this information is protected by the Federal Confidentiality of Alcohol and Drug Abuse Patient Records regulations: The Federal rules restrict any use of the information to criminally investigate or prosecute any alcohol or drug abuse patient.[facility] the event this information is protected by the Federal Confidentiality of Alcohol and Drug Abuse Patient Records regulations: The Federal rules restrict any use of the information to criminally investigate or prosecute any alcohol or drug abuse patient.[facility] the event this information is protected by the Federal Confidentiality of Alcohol and Drug Abuse Patient Records regulations: The Federal rules restrict any use of the information to criminally investigate or prosecute any alcohol or drug abuse patient.[facility]In the event this information is protected by the Federal Confidentiality of Alcohol and Drug Abuse Patient Records regulations: The Federal rules restrict any use of the information to criminally investigate or prosecute any alcohol or drug abuse patient.[facility]In the event this information is protected by the Federal Confidentiality of Alcohol and Drug Abuse Patient Records regulations: The Federal rules restrict any use of the information to criminally investigate or prosecute any alcohol or drug abuse patient.[facility]In the event this information is protected by the Federal Confidentiality of Alcohol and Drug Abuse Patient Records regulations: The Federal rules restrict any use of the information to criminally investigate or prosecute any alcohol or drug abuse patient.[facility] the event this information is protected by the Federal Confidentiality of Alcohol and Drug Abuse Patient Records regulations: The Federal rules restrict any use of the information to criminally investigate or prosecute any alcohol or drug abuse patient.[facility] the event this information is protected by the Federal Confidentiality of Alcohol and Drug Abuse Patient Records regulations: The Federal rules restrict any use of the information to criminally investigate or prosecute any alcohol or drug abuse patient.[facility]In the event this information is protected by the Federal Confidentiality of Alcohol and Drug Abuse Patient Records regulations: The Federal rules restrict any use of the information to criminally investigate or prosecute any alcohol or drug abuse patient.[facility]In the event this information is protected by the Federal Confidentiality of Alcohol and Drug Abuse Patient Records regulations: The Federal rules restrict any use of the information to criminally investigate or prosecute any alcohol or drug abuse patient.[facility]In the event this information is protected by the Federal Confidentiality of Alcohol and Drug Abuse Patient Records regulations: The Federal rules restrict any use of the information to criminally investigate or prosecute any alcohol or drug abuse patient.[facility]In the event this information is protected by the Federal Confidentiality of Alcohol and Drug Abuse Patient Records regulations: The Federal rules restrict any use of the information to criminally investigate or prosecute any alcohol or drug abuse patient.[facility]In the event this information is protected by the Federal Confidentiality of Alcohol and Drug Abuse Patient Records regulations: The Federal rules restrict any use of the information to criminally investigate or prosecute any alcohol or drug abuse patient.[facility] FOR RECORDS PERTAINING TO PATIENTS WHO [...] BE BASED ON THE PRIMARY CLINICAL RECORDS. [facility] [employer] [facility]. provides no warranty or guarantee of the accuracy or completeness of information in this document.
--- NOTE | 2023-07-06 09:50 | ECG_ITS ---
[facility] Test Date: 2023-07-06 Pat Name: SABINA TIPTON Department: Room: - Gender: Male [employer]: : 1980 Requested By: 2010 Order Number: [id number] Reading MD: HERNANDEZ DWYER Measurements Intervals [place] Rate: 77 P: 45 [place]: 179 QRS: -5 QRSD: 93 T: 78 QT: 375 QTc: 427 Interpretive Statements SINUS RHYTHM NONSPECIFIC T-WAVE ABNORMALITY Compared to ECG 07/29/2022 19:09:35 Electronically Signed On 07-08-2023 7:21:32 EDT by HERNANDEZ DWYER
[2023-07-06 10:21] LABS: Alanine Aminotransferase 14 U/L (16-63); Albumin Globulin Ratio 1.3; Albumin Level 4.5 g/dL (3.4-5.0); Alkaline Phosphatase 167 U/L (46-116); Anion Gap 14.9; Aspartate Amino Transferase 14 U/L (15-37); BUN Creatinine Ratio 10.5; Bilirubin Total 0.7 mg/dL (0.2-1.0); Calcium 9.2 mg/dL (8.5-10.1); Chloride 100 mmol/L (98-107); Estimated GFR (African America >60 (>=60); Estimated GFR (Non-African Ame >60 (>=60); Globulin 3.5 g/dL; Glucose 87 mg/dL (74-106); Potassium 3.9 mmol/L (3.5-5.1); Sodium 139 mmol/L (136-145)
[2023-07-06 11:17] LABS: Hematocrit 56.6 % (42.0-54.0); Hemoglobin 17.6 g/dL (14.0-18.0); Mean Corpuscular HGB Conc 31.1 g/dL (29.9-35.2); Mean Corpuscular Hemoglobin 26.9 pg (25.9-34.0); Mean Corpuscular Volume 86.5 fL (80.0-94.0); Mean Platelet Volume 10.6 fL (9.5-13.5); Platelet Count 339 10^3/uL (150-450); Red Blood Count 6.54 10^6/uL (4.70-6.10); Red Cell Distribution Width 15.1 % (11.0-15.0); White Blood Count 8.7 10^3/uL (4.0-11.0)
== END 2023-07-06 09:24 | disposition home or self-care (01) ==
PROVIDERS: PCP Nurse Practitioner; Visit Provider Nurse Practitioner
DX: Z01.812 Encounter for preprocedural laboratory examination (principal); Z01.810 Encounter for preprocedural cardiovascular examination
CPT/HCPCS: 36415; 71046; 80053; 85027; 93005

== ENCOUNTER 2023-08-21 07:31 | Outpatient (RCR) | payer OTHER, SELFPAY ==
[2023-08-21 08:08] LABS: Basophils Absolute Auto 0.1 10^3/uL (0.0-0.1); Eosinophils Absolute Auto 0.2 10^3/uL (0.0-0.7); Eosinophils Percent Auto 2.2 % (0.9-7.0); Hematocrit 44.2 % (42.0-54.0); Hemoglobin 13.9 g/dL (14.0-18.0); Immature Granulocytes Abs Auto 0.16 10^3/uL (0.00-0.03); Immature Granulocytes Pct Auto 1.6 % (0.0-0.5); Lymphocytes Absolute Auto 1.5 10^3/uL (1.2-3.8); Lymphocytes Percent Auto 15.1 % (20.5-60.0); Mean Corpuscular HGB Conc 31.4 g/dL (29.9-35.2); Mean Corpuscular Hemoglobin 26.6 pg (25.9-34.0); Mean Corpuscular Volume 84.7 fL (80.0-94.0); Mean Platelet Volume 9.1 fL (9.5-13.5); Monocytes Absolute Auto 0.8 10^3/uL (0.3-0.8); Monocytes Percent Auto 7.6 % (1.7-12.0); Neutrophils Absolute Auto 7.3 10^3/uL (1.4-6.5); Neutrophils Percent Auto 72.5 % (43.0-75.0); Platelet Count 615 10^3/uL (150-450); Red Blood Count 5.22 10^6/uL (4.70-6.10); Red Cell Distribution Width 14.7 % (11.0-15.0)
[2023-08-21 08:37] LABS: Alanine Aminotransferase 18 U/L (16-63); Albumin Globulin Ratio 0.8; Albumin Level 3.7 g/dL (3.4-5.0); Alkaline Phosphatase 152 U/L (46-116); Anion Gap 14.1; Aspartate Amino Transferase 25 U/L (15-37); BUN Creatinine Ratio 10.3; Bilirubin Total 1.1 mg/dL (0.2-1.0); Carbon Dioxide 27.3 mmol/L (21.0-32.0); Chloride 99 mmol/L (98-107); Estimated GFR (African America >60 (>=60); Estimated GFR (Non-African Ame >60 (>=60); Globulin 4.4 g/dL; Glucose 87 mg/dL (74-106); Potassium 3.4 mmol/L (3.5-5.1); Sodium 137 mmol/L (136-145); Total Protein 8.1 g/dL (6.4-8.2)
[2023-08-21 08:43] VITALS: BP 146/88; PULSE 105; TEMP 35.7; O2SAT 96
[2023-08-21] MEDS: CYANOCOBALAMIN 1,000 MCG/ML VIAL 1000 MCG IM (08:43)
[2023-08-21 08:57] LABS: Percent Iron Saturation 13.4 %
--- NOTE | 2023-08-21 09:44 | PC.NURSE ---
Patient ambulated to department with no assistance. Ambulated safely to exam room. Weight, VS, and assessment performed. Client had recent RTKA experiencing some pain/swelling. Reports a cough with green sputum. Labs drawn by phleb, seen by Dr. Mortensen. RN administered B12 IM to left deltoid using aseptic technique, patient tolerated well. Education provided on medications, procedures, and referrals. Client departed department via independent ambulation to home with self care.
== END 2023-09-14 23:59 | disposition home or self-care (01) ==
LOC: INF 07:31
PROVIDERS: PCP Internal Medicine Hematology & Oncology; Visit Provider Internal Medicine Hematology & Oncology
DX: D50.9 Iron deficiency anemia, unspecified (principal); D51.9 Vitamin B12 deficiency anemia, unspecified; K90.9 Intestinal malabsorption, unspecified; C44.529 Squamous cell carcinoma of skin of other part of trunk; R10.84 Generalized abdominal pain; R22.41 Localized swelling, mass and lump, right lower limb; Z98.84 Bariatric surgery status; Z90.49 Acquired absence of other specified parts of digestive tract
CPT/HCPCS: 36415; 80053; 82306; 82607; 82728; 83540; 83550; 85025; 96372; G0463; J3420

== ENCOUNTER 2023-08-30 08:23 | Outpatient (OUT) | payer OTHER, SELFPAY ==
--- NOTE | 2023-08-30 08:32 | XR_ITS ---
The [address] [address] Patient Name: SABINA TIPTON MRN: [id number] date: 1980 Sex: M Assigned Patient Location: US Current Patient Location: US Accession/Order Number: [id number] Exam Date: 08/30/2023 08:50 Report Date: 08/30/2023 09:18 At the request of: JOSELO PHIPPS Procedure: XR chest 2V PROCEDURE: XR chest 2V DATE: 08/30/2023 7:50 AM CDT COMPARISONS: 07/06/2023 CLINICAL INDICATION: 43 years Male Squamous Cell Carcinoma C44.529 FINDINGS: The cardiomediastinal silhouette and pulmonary vasculature are within normal limits. As on previous exam, the lungs are essentially clear. No evidence of consolidating infiltrates, masses or nodules. There is no evidence of pleural effusion or pneumothorax. XR/XR chest 2V IMPRESSION: Chest radiograph is within normal limits. Electronically authenticated by: MARLEN SAHU Date: 08/30/2023 09:18
--- NOTE | 2023-08-30 08:34 | US_ITS ---
The [address] [address] Patient Name: SABINA TIPTON MRN: [id number] date: 1980 Sex: M Assigned Patient Location: US Current Patient Location: US Accession/Order Number: [id number] Exam Date: 08/30/2023 08:35 Report Date: 08/30/2023 11:15 At the request of: JOSELO PHIPPS Procedure: US venous doppler LE RT EXAMINATION: US venous doppler LE RT HISTORY: Localized Swelling Right Lower Limb R22.41 COMPARISON: No relevant comparison available. FINDINGS: REGION: Right lower extremity THROMBI: None. COMPRESSIBILITY: Normal compressibility. FLOW: Normal waveform and antegrade flow between 5 and 20 cm/s. OTHER: Area of lateral knee swelling corresponds to subcutaneous edema. US/US venous doppler LE RT IMPRESSION: 1. No deep vein thrombus within the right lower extremity. Electronically authenticated by: SUGEY WOOD Date: 08/30/2023 11:15
== END 2023-08-30 08:24 | disposition home or self-care (01) ==
LOC: US 08:23
PROVIDERS: PCP Internal Medicine Hematology & Oncology; Visit Provider Internal Medicine Hematology & Oncology
DX: D64.9 Anemia, unspecified (principal); D50.9 Iron deficiency anemia, unspecified; K90.9 Intestinal malabsorption, unspecified; D51.9 Vitamin B12 deficiency anemia, unspecified; C44.529 Squamous cell carcinoma of skin of other part of trunk; R10.84 Generalized abdominal pain; R22.41 Localized swelling, mass and lump, right lower limb
CPT/HCPCS: 71046; 93971

== ENCOUNTER 2023-09-17 07:24 | Outpatient (RCR) | payer OTHER, SELFPAY | END 2023-10-03 15:11 | disposition home or self-care (01) | LOC: INF 07:24 | PROVIDERS: PCP Internal Medicine Hematology & Oncology; Visit Provider Internal Medicine Hematology & Oncology | DX: Z53.9 Procedure and treatment not carried out, unspecified reason (principal) ==

== ENCOUNTER 2024-08-25 09:41 | Outpatient (OUT) | payer OTHER, SELFPAY ==
[2024-08-25 10:06] LABS: Basophils Absolute Auto 0.1 10^3/uL (0.0-0.1); Basophils Percent Auto 1.1 % (0.2-2.0); Eosinophils Absolute Auto 0.2 10^3/uL (0.0-0.7); Eosinophils Percent Auto 3.2 % (0.9-7.0); Hematocrit 48.8 % (42.0-54.0); Hemoglobin 15.6 g/dL (14.0-18.0); Immature Granulocytes Abs Auto 0.01 10^3/uL (0.00-0.03); Immature Granulocytes Pct Auto 0.2 % (0.0-0.5); Lymphocytes Absolute Auto 1.7 10^3/uL (1.2-3.8); Lymphocytes Percent Auto 31.2 % (20.5-60.0); Mean Corpuscular Hemoglobin 26.2 pg (25.9-34.0); Mean Platelet Volume 10.1 fL (9.5-13.5); Monocytes Absolute Auto 0.5 10^3/uL (0.3-0.8); Monocytes Percent Auto 9.7 % (1.7-12.0); Neutrophils Absolute Auto 3.1 10^3/uL (1.4-6.5); Neutrophils Percent Auto 54.6 % (43.0-75.0); Platelet Count 307 10^3/uL (150-450); Red Blood Count 5.95 10^6/uL (4.70-6.10); Red Cell Distribution Width 14.7 % (11.0-15.0); White Blood Count 5.6 10^3/uL (4.0-11.0)
[2024-08-25 10:37] LABS: Percent Iron Saturation 17.5 %
[2024-08-26 04:07] LABS: Vitamin B12 253 pg/mL (232-1245)
== END 2024-08-25 09:42 | disposition home or self-care (01) ==
LOC: LAB 09:43
PROVIDERS: PCP Nurse Practitioner
DX: E55.9 Vitamin D deficiency, unspecified (principal); E53.8 Deficiency of other specified B group vitamins; D50.9 Iron deficiency anemia, unspecified
CPT/HCPCS: 36415; 82306; 82607; 83540; 83550; 85025